=== PATIENT | female | born 1940 | race Caucasian/White ===

== ENCOUNTER 2019-04-01 12:00 | Outpatient (RCR) | payer MEDICARE, OTHER, SELFPAY ==
--- NOTE | 2019-02-09 14:29 | HP.PTEVAL ---
Patient's Visit Information JOE CEE is a 78 year old F referred to Physical Therapy by CAREY FraserC with a diagnosis of LBP , hip pain L.. Date of Evaluation: 02/09/19 Physical Therapist: Sang Law, DPT, OCS, CSCS - Visit Plan Frequency: 3x /Week Duration: 4-6 Weeks Plan: 3x/week for 3-6 for. 1. LB and L hip ROM emphasize hip extension. 2. core adn hip strength in gym and machines and progress to I. 3. Yoga flows and progress to I class emphasizing LB ROM adn LE stretching. - Subjective Findings: Bumped at traffic light a little bump. Didn't think it was a big deal but 30 minutes later got numbness in LB. That was a month ago. She got worse with LBP and now getting better. Has to stretch to get out of bed. X ray was OK. Has LBP and L hip pain. Sciatica. Doing piriformis stretch. Walking too far on a hike will make her worse after 45 minutes. Also doing extension for LB. Pain is 5/10. 0-10 pain with sitting. Sleeping is not bad, was hard at first. Sleeps with pillows under knees. Dress and basic aDLS are OK but cooking too meagan can be problematic. Reaching up can hurt. No regular exercises but used to wrok out at adn [place] l[place]. Knitting is OK. Avoided gardening b/c of pain a little bit, - Pain L LB and hip Pain Intensity (Out of 10): 0 Pain Intensity Range: 0, 5 - Objective Walks hunched over and looking at ground. Painful after a while. Sitting is rounded throughout spine, flat lordosis. PA pressure in lowe L/S is painful. L hip IR adn flexion adn extension caus epain, + L hip scour. reflexes 2/3 patella dave chilles. Sensation LE WNL to gross lgiht touch. Strength knees adn ankles 4/5 adn hips 3+ ext adn abduction 4- flexion. L/ S aROM ext max limited and mild pain LB L, SB min limited, flexion min limited, no pain. Balance is good withambilation and transfers. - Goals Goal 1:: Comfortable walking 45 minutes adn sleep without discomfort Goal Time Frame: 4-6 Weeks Goal 2:: I appropr HEP to minimize future problems in gym/classes at Goal Time Frame: 4-6 Weeks Goal 3:: Pt feel 90% back to normal with LB/hip pain and activitiy. Goal Time Frame: 4-6 Weeks Goal 4:: <2/10 on oswestry LB scale Goal Time Frame: 4-6 Weeks - Rehabilitation Potential Physical Therapy Diagnosis: L hip OA adn LB degeneration. Rehabilitation Potential: Fair - Anticipated Interventions Patient/Client Instruction: Educate patient on: Condition, Plan of Care For the Purpose of:: To decrease pain, To increase ROM, To improve muscle performance and motor function, To improve ability of physical actions for home/community/work/leisure Therapeutic Exercise to Include: Strength training, Flexibilty training, Passive ROM, Active ROM For the Purpose of:: To decrease pain, To increase ROM, To improve ability of physical actions for home/community/work/leisure Thank you for the opportunity to evaluate your patient. For Medicare and Medicare HMO plans, please review the plan of care and approve it. It will need to be FAXED BACK to us at [phone] for Medicare purposes. For Medicare only, by signing this I certify the plan of care. Please let me know if there are questions or concerns regarding this plan of care. Physician Signature: Date:
--- NOTE | 2019-03-02 09:08 | HP.PTREVAL_ITS ---
Ioana Matthews, [employer] DIRECTOR-C, It has been my pleasure to treat JOE CEE over the last 7 visits for LBP , hip pain L.. Please see the progress note below for an update on the physical therapy plan of care! Subjective: Hiked [place] without issues last Saturday but hip hurt at night. Hip is slowly improving but walked dog a couple miles yesterday. Had L leg pain not going to ankle anymore. Not a terrible pain to 2/10. Keeps her up at night at times. Needs pillow under knee at night. Doing stfetches at home. Will see doctor soon this month. Objective/Function: Mild L antalgia, Avoids L hip flexion descending steps. ROM L hip missing about 10 degrees flexion vs R. Rotation L 45 ext rotation, 10 IR with pain. Plan Plan: 4 pool visits to teach hip ROM L and stretching of L ITB, hip flexors and Hip strength so patient acan do at home in own pool. Will be doing gym exercises during this time I. Fair prognosis to same goals. Goals Goal 1:: Comfortable walking 45 minutes adn sleep without discomfort Goal Time Frame: 4-6 Weeks Goal Progress: Progressing Goal 2:: I appropr HEP to minimize future problems in gym/classes at Goal Time Frame: 4-6 Weeks Goal Progress: Progressing Goal 3:: Pt feel 90% back to normal with LB/hip pain and activitiy. Goal Time Frame: 4-6 Weeks Goal Progress: Progressing Goal 4:: <2/10 on oswestry LB scale Goal Time Frame: 4-6 Weeks Goal Progress: Progressing Anticipated Interventions Patient/Client Instruction: Educate patient on: Condition, Plan of Care For the Purpose of:: To decrease pain, To increase ROM, To improve muscle performance and motor function, To improve ability of physical actions for home/community/work/leisure Therapeutic Exercise to Include: Strength training, Flexibilty training, Passive ROM, Active ROM For the Purpose of:: To decrease pain, To increase ROM, To improve ability of physical actions for home/community/work/leisure Please do not hesitate to contact me at [phone] by phone or if you have questions or concerns regarding this new plan of care! Sincerely, Sang Law, DPT, OCS, CSCS
--- NOTE | 2019-03-17 13:01 | HP.PTREVAL ---
Ioana Matthews, FLIGHT READINESS TECHNICIAN-C, It has been my pleasure to treat JOE CEE over the last 11 visits for LBP , hip pain L.. Please see the progress note below for an update on the physical therapy plan of care! Subjective: Needsmore pool to show more exercises. Needs a couple more. Got three days relief after last two sessions. Flexibility stayed good and no pain over the weekend. No long hikes though. Good sleeping now without pillow at night. Does home stretches daily. Doing gym ex a couple times but avoiding glut ham machine. Objective/Function: L/S ext still mod limited and without pain today. Flexion is full and painfree. SB are good. Walking up much taller today(she just got out of pool). Feeling more positive overall. Plan Plan: 4 more pool visits to finish instruct in pool then patient to cotniue via her home pool. Will cotninue in gym 2-3x/week and home stretches. to doctor end March. No f/u with PT needed unless she worsens. Goals Goal 1:: Comfortable walking 45 minutes adn sleep without discomfort Goal Time Frame: 4-6 Weeks Goal Progress: Goal Met Goal 2:: I appropr HEP to minimize future problems in gym/classes at Goal Time Frame: 4-6 Weeks Goal Progress: [place], [place] pool Goal 3:: Pt feel 90% back to normal with LB/hip pain and activitiy. Goal Time Frame: 4-6 Weeks Goal Progress: Progressing Goal 4:: <2/10 on oswestry LB scale Goal Time Frame: 4-6 Weeks Goal Progress: Progressing Anticipated Interventions Patient/Client Instruction: Educate patient on: Condition, Plan of Care For the Purpose of:: To decrease pain, To increase ROM, To improve muscle performance and motor function, To improve ability of physical actions for home/community/work/leisure Therapeutic Exercise to Include: Strength training, Flexibilty training, Passive ROM, Active ROM For the Purpose of:: To decrease pain, To increase ROM, To improve ability of physical actions for home/community/work/leisure Please do not hesitate to contact me at [phone] by phone or if you have questions or concerns regarding this new plan of care! Sincerely, Sang Law, DPT, OCS, CSCS
--- NOTE | 2019-06-17 11:47 | HP.PT.NRP ---
HP - Discharge Summary (1) - Patient Information JOE CEE was seen in my office for initial evaluation on 02/09/19. The following Plan of Care was established for this patient: Initial Frequency: 3x /Week Initial Duration: 4-6 Weeks - Anticipated Interventions Patient/Client Instruction: Educate patient on: Condition, Plan of Care For the Purpose of:: To decrease pain, To increase ROM, To improve muscle performance and motor function, To improve ability of physical actions for home/community/work/leisure Therapeutic Exercise to Include: Strength training, Flexibilty training, Passive ROM, Active ROM For the Purpose of:: To decrease pain, To increase ROM, To improve ability of physical actions for home/community/work/leisure This patient was last seen in our office 04/01/19. Pertinent comments regarding their Physical therapy will appear below: Pt seen 15 visits for management of her pain, most recently in the pool and had progressed to being I with all of her exercises. This included pool ex [facility] is where she spent her last number of visits. Plan was to discharge her after the pool appointments which is appropriate. At this point I will be discontinuing this patient from physical therapy. I would be happy to see this patient again in the future if found appropriate by the physician. Thank you! Sang Law, DPT, OCS, CSCS
== END 2019-04-01 19:00 | disposition home or self-care (01) ==
LOC: PT 12:00
PROVIDERS: Family Provider Internal Medicine; PCP Internal Medicine; Referring Provider Nurse Practitioner; Visit Provider Nurse Practitioner
DX: M54.9 Dorsalgia, unspecified (principal); M25.552 Pain in left hip
CPT/HCPCS: 97012; 97110; 97113; 97140; 97162; 97530

== ENCOUNTER → 2021-01-27 11:09 | Outpatient (CLI) | payer MEDICARE, OTHER, SELFPAY ==
[2021-01-24 15:36] VITALS: BMI 22.6
--- NOTE | 2021-01-27 11:11 | ECHOD_ITS ---
Reason For Study: PRE-OP/ ABN EKG Procedure This was a 2D Doppler, Color Flow transthoracic echocardiogram. The exam was of adequate technical quality. Exam performed in department. Left Ventricle Normal LV size. Left ventricular systolic function is normal. The estimated ejection fraction is 65 %. Diastolic function is indeterminate. No regional wall motion abnormalities noted. Right Ventricle Normal RV size. Normal systolic function. Atria The left atrium is mildly enlarged. Normal right atrium. No doppler evidence for ASD. Mitral Valve There is no mitral annular calcification. Mild diffuse mitral valve thickening. Mild focal mitral valve calcification of the anterior leaflet. The mitral valve chordae are thickened and/or calcified. Mild (1+) mitral valve insufficiency. Tricuspid Valve Normal tricuspid valve. Mild eccentric tricuspid valve insufficiency. Right ventricular systolic pressure estimated to be 29 mmHg. Aortic Valve Trisinus/trileaflet aortic valve. Normal aortic valve. Pulmonic Valve The pulmonic valve is not well visualized. Mild (1+) pulmonic valve insufficiency. Great Vessels Normal sized aortic root. Pericardium/Pleural No pericardial effusion. Medication Previously negative bubble study. MMode/2D Measurements & Calculations LVIDd: 4.1 cm IVSd: 0.83 cm Ao root diam: 3.3 cm LVIDs: 2.3 cm LVPWd: 0.78 cm RVDd: 2.6 cm FS: 43.1 % LAV(MOD-bp): 38.1 ml LVAd ap4: 24.3 cm2 SV(MOD-sp4): 46.5 ml LAV(MOD-bp) Indexed: 26.2 ml/m2 LVLd ap4: 6.8 cm LAV(MOD-sp2): 43.2 ml EDV(MOD-sp4): 69.6 ml LAV(MOD-sp4): 29.7 ml EDV(sp4-el): 73.2 ml LVAs ap4: 12.0 cm2 LVLs ap4: 5.3 cm ESV(MOD-sp4): 23.1 ml ESV(sp4-el): 23.3 ml EF(MOD-sp4): 66.9 % EF(sp4-el): 68.2 % SV(sp4-el): 49.9 ml LA A4 area: 12.9 cm2 LA dimension(2D): 3.4 cm RA A4 area: 8.4 cm2 Time Measurements MV dec time: 0.22 sec Doppler Measurements & Calculations MV E max enrique: 87.5 cm/sec Lat Peak E' Enrique: 3.8 cm/sec Med Peak E' Enrique: 4.5 cm/sec MV A max enrique: 122.0 cm/sec E/E' lat: 23.0 E/E' med: 19.6 MV E/A: 0.72 MV V2 max: 123.6 cm/sec Ao V2 max: 113.4 cm/sec LV V1 max: 111.7 cm/sec MV max P.1 mmHg Ao max P.1 mmHg LV V1 max P.0 mmHg MV V2 mean: 73.5 cm/sec MV mean P.4 mmHg MV V2 VTI: 30.9 cm PA V2 max: 70.1 cm/sec PI end-d enrique: 110.0 cm/sec TR max enrique: 255.7 cm/sec TR max P.2 mmHg MV P1/2t-pr_phl: 66.9 msec ECHO/Echo Complete Interpretation Summary Left ventricular systolic function is normal. The estimated ejection fraction is 65 %. The left atrium is mildly enlarged. Mild diffuse mitral valve thickening. Mild focal mitral valve calcification of the anterior leaflet. The mitral valve chordae are thickened and/or calcified. Mild (1+) mitral valve insufficiency. Mild eccentric tricuspid valve insufficiency. Mild (1+) pulmonic valve insufficiency. Right ventricular systolic pressure estimated to be 29 mmHg. Diastolic function is indeterminate. Ordering Physician: Anibal Sanchez Referring Physician: BG CHAVARRIA Performed By: Symone Tapia, ITZEL, RVT
--- NOTE | 2021-01-27 17:39 | STRESSREP ---
Stress Test Report Date: 01-27-2021 Procedure: Pharmacologic stress nuclear imaging study Indications: Abnormal ECG; preoperative cardiovascular evaluation Consent: Per the patient Procedure: The patient underwent pharmacologic (Regadenoson 0.4mg ) evaluation with a peak heart rate of 99 beats per minute (70%predicted maximal heart rate) and a peak blood pressure of 120/64 mmHg. The baseline ECG demonstrated sinus rhythm; septal HI pattern of indeterminate age cannot be asked. The peak pharmacologic ECG demonstrated no obvious ECG changes. There were no cardiac dysrhythmias pretest, during pharmacologic infusion, or recovery. There was no complaint of chest discomfort during pharmacologic infusion or recovery. The examination was discontinued secondary to completion of protocol. Impression: 1. Pharmacologic (Regadenoson) evaluation 2. Peak pharmacologic ECG with no obvious ECG changes. 3. There were no cardiac dysrhythmias pretest, during pharmacologic infusion, or recovery. 4. Nuclear images pending Myocardial perfusion imaging study: Technique: The patient was injected with 12.0 millicuries of technetium 99m Cardiolite and subsequently rest SPECT Cardiolite nuclear imaging was obtained in the horizontal long, vertical long, and short axis views. The patient underwent pharmacologic (Regadenoson) evaluation with a peak heart rate of 99 beats per minute (70% percent predicted maximal heart rate) and a peak blood pressure of 120/64 mmHg. The patient was injected with 36.0 millicuries of technetium 99m Cardiolite and subsequently stress SPECT Cardiolite nuclear imaging was obtained in the horizontal long, vertical long, and short axis views. A gated Cardiolite study at peak stress was obtained. Interpretation: Rest and stress SPECT Cardiolite nuclear imaging status post realignment and normalization demonstrate relative uniform tracer uptake and myocardial perfusion appearing within normal limits. There is end systolic thickening and brightening. The gated Cardiolite study demonstrates myocardial thickening and inward wall motion. The reported LVEF is 83%. Impression: 1. Rest and stress SPECT Cardiolite nuclear imaging demonstrate relative uniform tracer uptake and myocardial perfusion appearing within normal limits. 2. The gated Cardiolite study reports an LVEF of 83%. This note was generated with [employer] software. It may contain incorrect words, spelling, and punctuation that were not noted in checking the note before signing.
== END ==
PROVIDERS: PCP Internal Medicine; Referring Provider Internal Medicine Cardiovascular Disease; Visit Provider Internal Medicine Cardiovascular Disease
DX: Z01.810 Encounter for preprocedural cardiovascular examination (principal); R94.11 Abnormal results of function studies of eye; E11.9 Type 2 diabetes mellitus without complications; G35 Multiple sclerosis
CPT/HCPCS: 78452; 93017; 93306; A9500; A4216; J2785

== ENCOUNTER 2021-02-03 16:36 | Inpatient (IN) | payer MEDICARE, OTHER, SELFPAY ==
[2021-01-24 15:36] VITALS: BMI 22.6
[2021-02-03 17:09] VITALS: BP 152/82; PULSE 94; RESP 16; TEMP 36.7; O2SAT 94; BMI 23.0
--- NOTE | 2021-02-03 20:24 | HP.PCM_ITS ---
HPI - General General Date of Admission: 02/03/21 HPI Narrative 01/27/2021 Echo LVSF normal. EF 65%. Right ventricular systolic pressure 29mm HG. 01/27/2021 Pharmacologic stress test negative. 02/01/2021 JOE CEE, is a 80 Female who presents to [facility] for left total hip arthroplasty. DVT prophylaxis. Zofran ODT for nausea. 02/02/2021 IV fluids. Add muscle relaxant. 02/03/2021 Admit to TCU with debility, here for rehabilitation, strengthening, prior to discharge home with . [facility] Medical History (Updated 02/03/21 @ 20:[address] Brandon Yeung MD) Abnormal electro-oculogram DJD (degenerative joint disease) of cervical spine Expressive aphasia GERD (gastroesophageal reflux disease) Multiple sclerosis Preop cardiovascular exam Type 2 diabetes mellitus Home Medications cholecalciferol (vitamin D3) 5,000 unit PO DAILY 06/24/15 [History Last Taken 06/24/15] meloxicam 7.5 tab PO BID 06/24/15 [History Last Taken 06/24/15] risedronate [Atelvia] 35 mg PO QWEEK 06/24/15 [History Last Taken Unknown] acetaminophen 650 mg tablet,extended release 650 mg PO Q8H PRN 01/24/21 [History Last Taken Unknown] conjugated estrogens 0.625 mg/gram vaginal cream 0.3125 mg VAGINAL DAILY g 01/24/21 [History Last Taken Unknown] cyanocobalamin (vitamin B-12) 1,000 mcg/mL injection solution 100 mcg IM QMONTH 01/24/21 [History Last Taken Unknown] lactase 9,000 unit tablet 9,000 unit PO ONCE PRN 01/24/21 [History Last Taken Unknown] metformin 500 mg tablet 500 mg PO DAILY 01/24/21 [History Last Taken Unknown] acetaminophen 500 mg PO Q8 PRN 02/03/21 [History Last Taken Unknown] calcium carbonate [Tums] 200 mg PO PRN PRN 02/03/21 [History Last Taken Unknown] enoxaparin [Lovenox] 40 mg SUBCUT DAILY 02/03/21 [History Last Taken Unknown] Allergy/AdvReac Type Severity Reaction Status Date / Time Penicillins Allergy Severe Rash Verified 01/24/21 11:41 amoxicillin Allergy Rash Verified 10/04/17 23:57 clindamycin AdvReac Severe Diarrhea Verified 01/24/21 15:42 prochlorperazine AdvReac Other Verified 10/04/17 23:57 [From Compazine] Family History (Updated 02/03/21 @ 20:[address] Brandon Yeung MD) Father Colon cancer Mother Thyroid disorder Osteoporosis Surgical History History of bunionectomy History of left inguinal hernia repair History of tonsillectomy History of tubal ligation Social History (Updated 02/03/21 @ 20:[address] Brandon Yeung MD) household members: spouse Smoking Status: Former smoker alcohol intake: current details: Glass of wine daily. substance use type: does not use caffeine: Yes ROS Constitutional Constitutional: Denies chills, fever(s) or weight gain ENT HEENT: Denies headache(s), nasal congestion or nasal discharge Cardiovascular Cardiovascular: Denies chest pain or palpitations Respiratory/Chest Respiratory/Chest: Denies cough, excessive phlegm production or shortness of breath with exertion Gastrointestinal Gastrointestinal: Denies abdominal pain, nausea or vomiting Genitourinary Genitourinary: Denies dysuria Musculoskeletal Musculoskeletal: Denies joint pain or joint swelling Integumentary Integumentary: Denies rash or wounds Neurologic Neurologic: Denies focal weakness, numbness or tingling Psychiatric Psychiatric: Reports auditory hallucinations; Denies anxiety, depression, homicidal ideation or suicidal ideation Vital Signs Vital Signs Vital Signs: 02/03/21 17:09 Temperature 98.0 F Temperature Source Temporal Pulse Rate 94 Respiratory Rate 16 Blood Pressure 152/82 H Blood Pressure Mean 105 Blood Pressure Source Monitor Blood Pressure Position Sitting Blood Pressure Location Right Arm Pulse Ox 94 Oxygen Delivery Method Room Air Physical Exam Const alert and oriented x3 General Appearance: cooperative HEENT normocephalic Eyes PERRL and EOMs intact bilaterally Neck supple, no JVD and no carotid bruits Resp normal respiratory effort, normal air movement and clear to auscultation bilaterally Cardio regular rate and regular rhythm GI normal to inspection, nondistended, normoactive bowel sounds, non-tender and non-distended Extremity normal capillary refill General Extremity: Negative for edema Skin no rashes or lesions noted General Skin Exam: no breakdown Psych affect normal Appearance: appropriate Assessment & Plan Assessment/Plan (1) Debility: (2) Osteoarthritis of left hip: (3) Vitamin B12 deficiency: (4) Multiple sclerosis: (5) Diabetes mellitus: (6) Gastroesophageal reflux disease: (7) Osteoporosis: PLAN: 80 year old female with below past medical history hospitalized for left total hip replacement 02/01/2021, admitted to TCU with debility, here for rehabilitation, strengthening, prior to discharge home with . * Debility - PT/OT. * Pain - Tylenol 1000MG Q6H PRN pain (1-5), Oxycodone 5MG Q4H PRN pain (6-10). * Bowel - Miralax 17GM daily, Senna/colace 2 tablets BID, Dulcolax 10MG daily PRN, Magnesium Citrate 300ML PO x 1 bottle. * Adult immunization - Administer Prevnar 13, Pneumovax 23, Fluzone, COVID19 vaccine as appropriate. * DVT prophylaxis - Lovenox 40MG SC daily x 14 days. * Indigestion - Calcium 500MG daily PRN. * Vitamin D deficiency - D3 125MCG daily. * Vitamin B12 deficiency - B12 1000MCG IM Qmonth. * Atrophic vaginitis - Estrogen 0.5GM PV daily. * Osteoarthritis - Meloxicam 7.5MG BID. * Diabetes Mellitus II - Metformin 500MG daily, monitor blood sugar. * Osteoporosis - Risedronate 35MG per week (or formulary equivalent)
[2021-02-03] MEDS: Meloxicam 7.5 MG Tablet PO (21:15)
[2021-02-04 06:36] LABS: Bedside Glucose 120 mg/dL (70-110)
[2021-02-04 06:43] VITALS: BP 134/59; PULSE 79; RESP 16; TEMP 37.2; O2SAT 92
[2021-02-04] MEDS: Magnesium Citrate 300 ML PO (06:47)
[2021-02-04] MEDS: Enoxaparin 40 MG/0.4 ML Syringe SC (06:48)
[2021-02-04] MEDS: Polyethylene Glycol 3350 17 GM PACKET PO (06:50)
[2021-02-04] MEDS: Senna/Docusate Sodium 1 Tablet 2 TABLET PO (06:53)
[2021-02-04] MEDS: Cholecalciferol (VIT D3) 25 MCG TABLET (1,000 UNITS) 125 MCG PO (06:54)
[2021-02-04] MEDS: Meloxicam 7.5 MG Tablet PO ×2 (06:54→16:56)
[2021-02-04 07:44] LABS: Absolute Lymphocyte Count 1.47 X10^3/uL (0.83-4.51); Absolute Neutrophil Count 6.2 X10^3/uL (2.0-7.7); Basophil# 0.02 X10^3/uL; Basophil% 0.2 % (0-1); Eosinophils% 2.3 % (0-5); Hematocrit 28.1 % (37-47); Hemoglobin 9.3 g/dL (12.0-15.0); Lymphocyte # 1.47 X10^3/ul (0.83-4.51); Lymphocyte % 16.6 % (19-41); Mean Corp Hgb Conc 33.1 g/dL (32-36); Mean Corpuscular Volume 87.5 fL (81-99); Mean Platelet Vol. 9.3 fl (6.2-12.0); Monocyte% 10.2 % (0-10); NRBC Flagged by Analyzer 0 % (0-5); Neutrophil # 6.24 X10^3/uL (2.7-7.7); Neutrophil % 70.4 % (47-70); Platelet Count 231 K/mm3 (150-450); RBC Distribution Width CV 13.1 % (11.6-14.6); RBC Distribution Width SD 41.9 fl (35.1-43.9); Red Blood Count 3.21 M/mm3 (4.2-5.4); White Blood Count 8.9 K/mm3 (4.4-11.0)
[2021-02-04 08:00] LABS: Anion Gap 2 (5-15); BUN 16 mg/dL (7-18); BUN/Creat Ratio 24.5 RATIO (10-20); Calcium,Total 8.4 mg/dL (8.5-10.1); Chloride 107 mmol/L (98-107); Creatinine, Serum 0.65 mg/dL (0.55-1.02); EST Glomerular Filtration Rate 93 mL/min (>60); Est Glom Filt Rate - Afr Amer 112 mL/min (>60); Estimated Creatinine Clearance 37.89 ml/min; Glucose 122 mg/dL (74-106); Potassium 3.6 mmol/L (3.5-5.1); Sodium Level 140 mmol/L (136-145)
[2021-02-04] MEDS: metFORMIN HCl 500 MG Tablet PO (09:11)
[2021-02-04] MEDS: Tuberculin,Purif.prot.deriv. 50 TU/ML Vial 5 ML ID (09:43)
--- NOTE | 2021-02-04 10:05 | NURSING ---
Nursing staff notified and aware that patient's family needs to bring in patient's Premarin cream in from home due to unavailable from pharmacy. Cream is on backorder and no time frame when it will be available.
[2021-02-04 14:01] VITALS: BP 121/61; PULSE 85; RESP 16; TEMP 36.7
[2021-02-04] MEDS: Acetaminophen 500 MG Tablet 1000 MG PO (22:22)
--- NOTE | 2021-02-05 00:40 | NURSING ---
Pt calls reporting spasms to lt hip and thigh. Has taken Flexeril in the past. Offered Oxycodone and pt declines thinking she will become sick to her stomach. Transfers out of bed w/ minimal assist per this nurse to ambulate to the bathroom. Symptoms subside with movement. In no acute distress.
[2021-02-05 05:15] LABS: Absolute Lymphocyte Count 1.83 X10^3/uL (0.83-4.51); Absolute Neutrophil Count 7.2 X10^3/uL (2.0-7.7); Basophil# 0.02 X10^3/uL; Basophil% 0.2 % (0-1); Eosinophil# 0.24 X10^3/uL; Eosinophils% 2.4 % (0-5); Hematocrit 29.9 % (37-47); Hemoglobin 9.6 g/dL (12.0-15.0); Lymphocyte # 1.83 X10^3/ul (0.83-4.51); Mean Corp Hgb Conc 32.1 g/dL (32-36); Mean Corpuscular Volume 87.2 fL (81-99); Mean Platelet Vol. 8.8 fl (6.2-12.0); Monocyte# 0.85 X10^3/uL; Monocyte% 8.4 % (0-10); NRBC Flagged by Analyzer 0 % (0-5); Neutrophil # 7.17 X10^3/uL (2.7-7.7); Neutrophil % 70.7 % (47-70); Platelet Count 260 K/mm3 (150-450); RBC Distribution Width CV 13.2 % (11.6-14.6); RBC Distribution Width SD 41.7 fl (35.1-43.9); Red Blood Count 3.43 M/mm3 (4.2-5.4); White Blood Count 10.1 K/mm3 (4.4-11.0)
[2021-02-05 05:29] LABS: Anion Gap 4 (5-15); BUN 17 mg/dL (7-18); BUN/Creat Ratio 22.9 RATIO (10-20); Calcium,Total 8.5 mg/dL (8.5-10.1); Chloride 104 mmol/L (98-107); Creatinine, Serum 0.74 mg/dL (0.55-1.02); EST Glomerular Filtration Rate 80 mL/min (>60); Est Glom Filt Rate - Afr Amer 97 mL/min (>60); Estimated Creatinine Clearance 37.89 ml/min; Glucose 109 mg/dL (74-106); Potassium 3.8 mmol/L (3.5-5.1); Sodium Level 141 mmol/L (136-145)
[2021-02-05 06:28] VITALS: BP 124/59; PULSE 74; RESP 16; TEMP 36.6; O2SAT 97
[2021-02-05 06:30] LABS: Bedside Glucose 103 mg/dL (70-110)
[2021-02-05] MEDS: Cholecalciferol (VIT D3) 25 MCG TABLET (1,000 UNITS) 125 MCG PO (06:30)
[2021-02-05] MEDS: Meloxicam 7.5 MG Tablet PO ×2 (06:30→17:10)
[2021-02-05] MEDS: Senna/Docusate Sodium 1 Tablet 2 TABLET PO ×2 (06:31→17:10)
[2021-02-05] MEDS: Polyethylene Glycol 3350 17 GM PACKET PO (06:31)
[2021-02-05] MEDS: Enoxaparin 40 MG/0.4 ML Syringe SC (06:32)
[2021-02-05] MEDS: metFORMIN HCl 500 MG Tablet PO (08:41)
[2021-02-05] MEDS: Iron Polysaccharide Complex 150 MG CAPSULE PO (08:41)
[2021-02-05] MEDS: Acetaminophen 500 MG Tablet 1000 MG PO ×2 (10:28→23:04)
[2021-02-05] MEDS: Calcium Carbonate 500 MG Tablet PO (11:43)
[2021-02-05 14:41] VITALS: BP 131/65; PULSE 84; RESP 16; TEMP 36.9; O2SAT 94
[2021-02-05] MEDS: cycloBENZAPRine HCl 10 MG Tablet PO (23:04)
[2021-02-06] MEDS: Enoxaparin 40 MG/0.4 ML Syringe SC (05:19)
[2021-02-06] MEDS: Polyethylene Glycol 3350 17 GM PACKET PO (05:20)
[2021-02-06] MEDS: Senna/Docusate Sodium 1 Tablet 2 TABLET PO ×2 (05:20→16:36)
[2021-02-06] MEDS: Meloxicam 7.5 MG Tablet PO ×2 (05:20→16:36)
[2021-02-06] MEDS: Cholecalciferol (VIT D3) 25 MCG TABLET (1,000 UNITS) 125 MCG PO (05:21)
[2021-02-06 06:03] LABS: Absolute Lymphocyte Count 1.45 X10^3/uL (0.83-4.51); Absolute Neutrophil Count 5.1 X10^3/uL (2.0-7.7); Basophil# 0.02 X10^3/uL; Basophil% 0.3 % (0-1); Eosinophil# 0.25 X10^3/uL; Eosinophils% 3.3 % (0-5); Hematocrit 27.7 % (37-47); Hemoglobin 8.8 g/dL (12.0-15.0); Lymphocyte # 1.45 X10^3/ul (0.83-4.51); Lymphocyte % 19.1 % (19-41); Mean Corp Hgb Conc 31.8 g/dL (32-36); Mean Corpuscular Hgb 28.5 pg (27.0-32.0); Mean Corpuscular Volume 89.6 fL (81-99); Mean Platelet Vol. 9.1 fl (6.2-12.0); Monocyte# 0.79 X10^3/uL; Monocyte% 10.4 % (0-10); NRBC Flagged by Analyzer 0 % (0-5); Neutrophil # 5.05 X10^3/uL (2.7-7.7); Neutrophil % 66.4 % (47-70); Platelet Count 280 K/mm3 (150-450); RBC Distribution Width SD 42.1 fl (35.1-43.9); Red Blood Count 3.09 M/mm3 (4.2-5.4); White Blood Count 7.6 K/mm3 (4.4-11.0)
[2021-02-06 06:05] VITALS: BP 134/62; PULSE 77; RESP 12; TEMP 36.7; O2SAT 96
[2021-02-06 06:31] LABS: Bedside Glucose 116 mg/dL (70-110)
[2021-02-06 06:44] LABS: Anion Gap 4 (5-15); BUN 19 mg/dL (7-18); BUN/Creat Ratio 26.9 RATIO (10-20); Calcium,Total 8.4 mg/dL (8.5-10.1); Chloride 104 mmol/L (98-107); Creatinine, Serum 0.71 mg/dL (0.55-1.02); EST Glomerular Filtration Rate 85 mL/min (>60); Est Glom Filt Rate - Afr Amer 103 mL/min (>60); Estimated Creatinine Clearance 37.89 ml/min; Glucose 96 mg/dL (74-106); Potassium 3.7 mmol/L (3.5-5.1); Sodium Level 140 mmol/L (136-145)
[2021-02-06] MEDS: cycloBENZAPRine HCl 10 MG Tablet PO ×2 (08:24→12:49)
[2021-02-06] MEDS: Acetaminophen 500 MG Tablet 1000 MG PO ×2 (08:24→14:19)
[2021-02-06] MEDS: metFORMIN HCl 500 MG Tablet PO (08:25)
[2021-02-06] MEDS: Iron Polysaccharide Complex 150 MG CAPSULE PO (08:25)
[2021-02-06 10:00] VITALS: RESP 18
[2021-02-06 14:02] VITALS: BP 137/64; PULSE 88; RESP 20; TEMP 36.7; O2SAT 95
--- NOTE | 2021-02-06 15:56 | PCM.PN.RX ---
Progress Note - Pharmacy Subjective: TCU Admission Objective: Allergies Penicillins Allergy (Severe, Verified 01/24/21 11:41) Rash amoxicillin Allergy (Verified 10/04/17 23:57) Rash clindamycin Adverse Reaction (Severe, Verified 01/24/21 15:42) Diarrhea prochlorperazine [From Compazine] Adverse Reaction (Verified 10/04/17 23:57) Other Current Medications Generic Name Dose Route Start Last Admin Trade Name Freq PRN Reason Stop Dose Admin Acetaminophen 1,000 mg 02/03/21 20:45 02/06/21 14:19 Acetaminophen 500 Mg Tablet PO 1,000 mg Q6H PRN PRN Administration Pain Score 1-5 Bisacodyl 10 mg 02/03/21 20:44 Bisacodyl 5 Mg Tablet PO X1 PRN Constipation Calcium Carbonate 500 mg 02/03/21 17:42 02/05/21 11:43 Calcium Carbonate 500 Mg Tablet PO 500 mg DAILY PRN PRN Administration GERD Cholecalciferol 125 mcg 02/04/21 06:00 02/06/21 05:21 Cholecalciferol (Vit D3) 25 Mcg Tablet (1,000 Units) PO 125 mcg DAILY ABIGAIL Administration Cyanocobalamin 1,000 mcg 02/28/21 08:00 Cyanocobalamin (B12) 1,000 Mcg/Ml Vial IM QMONTH [facility] Cyclobenzaprine HCl 10 mg 02/05/21 14:11 02/06/21 12:49 Cyclobenzaprine Hcl 10 Mg Tablet PO 10 mg TID PRN PRN Administration SPASMS Estrogens Conjugated 0.5 dose 02/04/21 13:34 Estrogens,Conj. 1 Tube VAGINAL DAILY PRN estrogen Meloxicam 7.5 mg 02/03/21 20:45 02/06/21 05:20 Meloxicam 7.5 Mg Tablet PO 7.5 mg BID ABIGAIL Administration Metformin HCl 500 mg 02/04/21 08:00 02/06/21 08:25 Metformin Hcl 500 Mg Tablet PO 500 mg DAILYCM ABIGAIL Administration Polyethylene Glycol 17 gm 02/04/21 06:00 02/06/21 05:20 Polyethylene Glycol 3350 17 Gm Packet PO 17 gm DAILY ABIGAIL Administration Polysaccharide Iron Complex 150 mg 02/05/21 08:00 02/06/21 08:25 Iron Polysaccharide Complex 150 Mg Capsule PO 150 mg DAILYCM ABIGAIL Administration Risedronate 35 mg 02/07/21 06:00 Risedronate 35 Mg Tablet PO Q7D@0600 [facility] Senna/Docusate Sodium 2 tablet 02/04/21 06:00 02/06/21 05:20 Senna/Docusate Sodium 1 Tablet PO 2 tablet BID ABIGAIL Administration Tuberculin PPD 5 tu 02/11/21 10:00 Tuberculin,Purif.Prot.Deriv. 50 Tu/Ml Vial ID 02/11/21 10:01 X1 ONE Problem List (Last Updated 01/24/21 @ 16:[address] Anibal Sanchez MD) Osteoporosis (Acute) Gastroesophageal reflux disease (Acute) Diabetes mellitus (Acute) Multiple sclerosis (Acute) Vitamin B12 deficiency (Acute) Osteoarthritis of left hip (Acute) Debility (Acute) Vital Signs Temp Pulse Resp BP Pulse Ox 98.1 F 88 20 H 137/64 H 95 02/06/21 14:02 02/06/21 14:02 02/06/21 14:02 02/06/21 14:02 02/06/21 14:02 Oxygen Flow Rate (L/min) 96 Oxygen Delivery Method Room Air Weight: 52.617 kg Body Mass Index (BMI) 23.0 Finger Stick Blood Glucose 141 Sodium 140 mmol/L (136-145) 02/06/21 05:30 Potassium 3.7 mmol/L (3.5-5.1) 02/06/21 05:30 Chloride 104 mmol/L (98-107) 02/06/21 05:30 Carbon Dioxide 32.0 mmol/L (21.0-32.0) 02/06/21 05:30 Anion Gap 4 (5-15) L 02/06/21 05:30 BUN 19 mg/dL (7-18) H 02/06/21 05:30 Creatinine 0.71 mg/dL (0.55-1.02) 02/06/21 05:30 Est GFR (MDRD) Af Amer 103 mL/min (>60) 02/06/21 05:30 Est GFR (MDRD) Non-Af 85 mL/min (>60) 02/06/21 05:30 BUN/Creatinine Ratio 26.9 RATIO (10-20) H 02/06/21 05:30 Glucose 96 mg/dL (74-106) 02/06/21 05:30 Assessment/Plan: *1. Pain: acetaminophen 1000mg PO Q6H PRN pain 1-5/10. Please consider increasing the pain scale coverage for acetaminophen since oxycodone is no longer on profile due to patient intolerance. Thanks. Please continue to monitor for increased pain and PRN usage. 2. Atrophic vaginitis: Premerin 0.3125mg (0.5gm) vaginally once daily PRN. Please continue to monitor for S/S of vaginitis and PRN usage. 3. Osteoarthritis: meloxicam 7.5mg PO BID. Please continue to monitor S/S osteoarthritis and renal function. *4. Diabetes mellitus II: metformin 500mg PO dailyCM. Please consider ordering a hemoglobin A1c. Patient does not have one in chart. Please continue to monitor blood glucose (last 116), renal function, and GI symptoms. 5. Osteoporosis: risedronate 35mg PO Q7days. Please continue to monitor S/S osteoporosis. Take on an empty stomach. 6. Iron deficiency: Ferrex 150mg PO dailyCM. Please continue to monitor hemoglobin (last 8.8 g/dL) and for dark stools. 7. Indigestion: calcium carbonate 500mg PO daily PRN GERD. Please continue to monitor for S/S of GERD and calcium levels (last 8.5mg/dL). *8. Vitamin D deficiency/Vitamin B12 deficiency: cholecalciferol 125mcg PO daily and cyanocobalamin 1000mcg IM Qmonth. Please continue to ordering vitamin D and vitamin B12 levels. Last levels from 03/2013. Thanks. 9. Muscle spasms: cyclobenzaprine 10mg PO TID PRN spasms. Please continue to monitor for anticholinergic side effects (medication is on BEERs criteria) and PRN usage. Psychotropic Medications: None Unnecessary Medications: None *Bowel Regimen: Miralax 17gm PO daily, senna/docusate 2T PO BID, and bisacodyl 10mg PO x1 PRN constipation. Please change bisacodyl to daily PRN constipation instead of x1 PRN if patient needs more than 1 dose. Thanks. Please continue to monitor for constipation and PRN usage. Date of Note:: 02/06/21
[2021-02-06 22:01] LABS: Bedside Glucose 115 mg/dL (70-110)
[2021-02-07] MEDS: Acetaminophen 500 MG Tablet 1000 MG PO ×4 (01:32→22:59)
[2021-02-07] MEDS: cycloBENZAPRine HCl 10 MG Tablet PO ×3 (01:32→22:59)
[2021-02-07 05:00] VITALS: BP 148/63; PULSE 84; RESP 14; TEMP 36.5; O2SAT 92
[2021-02-07 06:00] LABS: Absolute Lymphocyte Count 1.23 X10^3/uL (0.83-4.51); Absolute Neutrophil Count 4.4 X10^3/uL (2.0-7.7); Basophil# 0.03 X10^3/uL; Basophil% 0.4 % (0-1); Eosinophil# 0.31 X10^3/uL; Eosinophils% 4.6 % (0-5); Hematocrit 28.4 % (37-47); Hemoglobin 9.1 g/dL (12.0-15.0); Lymphocyte # 1.23 X10^3/ul (0.83-4.51); Lymphocyte % 18.1 % (19-41); Mean Corpuscular Hgb 28.1 pg (27.0-32.0); Mean Corpuscular Volume 87.7 fL (81-99); Mean Platelet Vol. 8.9 fl (6.2-12.0); Monocyte# 0.82 X10^3/uL; Monocyte% 12.1 % (0-10); NRBC Flagged by Analyzer 0 % (0-5); Neutrophil # 4.38 X10^3/uL (2.7-7.7); Neutrophil % 64.4 % (47-70); Platelet Count 313 K/mm3 (150-450); RBC Distribution Width CV 13.2 % (11.6-14.6); RBC Distribution Width SD 42.5 fl (35.1-43.9); Red Blood Count 3.24 M/mm3 (4.2-5.4); White Blood Count 6.8 K/mm3 (4.4-11.0)
[2021-02-07 06:24] LABS: Anion Gap 4 (5-15); BUN 19 mg/dL (7-18); BUN/Creat Ratio 28.1 RATIO (10-20); Calcium,Total 8.5 mg/dL (8.5-10.1); Chloride 105 mmol/L (98-107); Creatinine, Serum 0.68 mg/dL (0.55-1.02); EST Glomerular Filtration Rate 89 mL/min (>60); Est Glom Filt Rate - Afr Amer 108 mL/min (>60); Estimated Creatinine Clearance 37.89 ml/min; Glucose 98 mg/dL (74-106); Potassium 3.7 mmol/L (3.5-5.1); Sodium Level 140 mmol/L (136-145)
[2021-02-07 06:26] LABS: Bedside Glucose 108 mg/dL (70-110)
[2021-02-07] MEDS: Meloxicam 7.5 MG Tablet PO ×2 (06:49→16:36)
[2021-02-07] MEDS: Polyethylene Glycol 3350 17 GM PACKET PO (06:49)
[2021-02-07] MEDS: Senna/Docusate Sodium 1 Tablet 2 TABLET PO ×2 (06:49→16:36)
[2021-02-07] MEDS: Cholecalciferol (VIT D3) 25 MCG TABLET (1,000 UNITS) 125 MCG PO (06:50)
[2021-02-07] MEDS: Iron Polysaccharide Complex 150 MG CAPSULE PO (08:25)
[2021-02-07] MEDS: metFORMIN HCl 500 MG Tablet PO (08:26)
[2021-02-07 16:00] VITALS: BP 147/61; PULSE 82; RESP 18; TEMP 36.4; O2SAT 94
--- NOTE | 2021-02-07 16:38 | NURSING ---
asked r' if her can bring in premarin cream. she stated she only needs it occasionally, so if she needs it while on her stay at [facility] she will let her know to bring it in.
[2021-02-07] MEDS: Bisacodyl 5 MG Tablet 10 MG PO (23:04)
[2021-02-08 05:00] VITALS: BP 146/71; PULSE 71; RESP 14; TEMP 36.6; O2SAT 95
[2021-02-08] MEDS: Senna/Docusate Sodium 1 Tablet 2 TABLET PO ×2 (05:43→18:34)
[2021-02-08] MEDS: Meloxicam 7.5 MG Tablet PO ×2 (05:43→18:34)
[2021-02-08] MEDS: Polyethylene Glycol 3350 17 GM PACKET PO (05:43)
[2021-02-08] MEDS: Cholecalciferol (VIT D3) 25 MCG TABLET (1,000 UNITS) 125 MCG PO (05:44)
[2021-02-08 05:49] LABS: Absolute Lymphocyte Count 1.58 X10^3/uL (0.83-4.51); Absolute Neutrophil Count 4.9 X10^3/uL (2.0-7.7); Basophil# 0.02 X10^3/uL; Basophil% 0.3 % (0-1); Eosinophil# 0.34 X10^3/uL; Eosinophils% 4.3 % (0-5); Hematocrit 30.1 % (37-47); Hemoglobin 9.7 g/dL (12.0-15.0); Lymphocyte # 1.58 X10^3/ul (0.83-4.51); Lymphocyte % 20.1 % (19-41); Mean Corp Hgb Conc 32.2 g/dL (32-36); Mean Corpuscular Hgb 28.1 pg (27.0-32.0); Mean Corpuscular Volume 87.2 fL (81-99); Mean Platelet Vol. 8.5 fl (6.2-12.0); Monocyte# 0.97 X10^3/uL; Monocyte% 12.4 % (0-10); NRBC Flagged by Analyzer 0 % (0-5); Neutrophil # 4.87 X10^3/uL (2.7-7.7); Platelet Count 335 K/mm3 (150-450); RBC Distribution Width CV 13.2 % (11.6-14.6); RBC Distribution Width SD 41.8 fl (35.1-43.9); Red Blood Count 3.45 M/mm3 (4.2-5.4); White Blood Count 7.9 K/mm3 (4.4-11.0)
[2021-02-08 06:06] LABS: Anion Gap 7 (5-15); BUN 22 mg/dL (7-18); BUN/Creat Ratio 30.1 RATIO (10-20); Chloride 103 mmol/L (98-107); Creatinine, Serum 0.73 mg/dL (0.55-1.02); EST Glomerular Filtration Rate 82 mL/min (>60); Est Glom Filt Rate - Afr Amer 99 mL/min (>60); Estimated Creatinine Clearance 38.71 ml/min; Glucose 96 mg/dL (74-106); Potassium 3.8 mmol/L (3.5-5.1); Sodium Level 139 mmol/L (136-145)
[2021-02-08 06:46] LABS: Bedside Glucose 114 mg/dL (70-110)
[2021-02-08] MEDS: metFORMIN HCl 500 MG Tablet PO (08:41)
[2021-02-08] MEDS: Iron Polysaccharide Complex 150 MG CAPSULE PO (08:42)
[2021-02-08 12:13] VITALS: PULSE 90; RESP 18
[2021-02-08 15:58] VITALS: BP 140/67; PULSE 91; RESP 16; TEMP 36.4; O2SAT 95
[2021-02-08] MEDS: Acetaminophen 500 MG Tablet 1000 MG PO (16:03)
[2021-02-08] MEDS: cycloBENZAPRine HCl 10 MG Tablet PO (16:04)
[2021-02-09] MEDS: Acetaminophen 500 MG Tablet 1000 MG PO ×2 (02:49→12:30)
[2021-02-09] MEDS: Cholecalciferol (VIT D3) 25 MCG TABLET (1,000 UNITS) 125 MCG PO (04:56)
[2021-02-09] MEDS: Senna/Docusate Sodium 1 Tablet 2 TABLET PO ×2 (04:56→17:03)
[2021-02-09] MEDS: Meloxicam 7.5 MG Tablet PO ×2 (04:57→17:03)
[2021-02-09] MEDS: cycloBENZAPRine HCl 10 MG Tablet PO ×3 (04:57→22:36)
[2021-02-09 05:00] VITALS: BP 148/86; PULSE 73; RESP 12; TEMP 35.7; O2SAT 98
[2021-02-09 06:41] LABS: Bedside Glucose 96 mg/dL (70-110)
[2021-02-09] MEDS: Iron Polysaccharide Complex 150 MG CAPSULE PO (09:09)
[2021-02-09] MEDS: metFORMIN HCl 500 MG Tablet PO (09:09)
--- NOTE | 2021-02-09 12:48 | NURSING ---
2+ pedal edema to Lt lower leg. Zeke gallego placed per resident request.
[2021-02-09 14:24] VITALS: BP 123/55; PULSE 87; RESP 15; TEMP 36.4; O2SAT 96
--- NOTE | 2021-02-09 15:09 | CASEMGMT ---
Social Work IDT met with patient and for care plan meeting. Discussed patient's progress in therapy and nursing. Pt progressing well and adhering to hip precautions well. Pt was independent prior and would like to return to PLOF prior to DC. can assist as needed while pt continues to adhere to precautions. Explained Medicare benefit and encouraged to contact secondary insurance to ensure copay coverage. SW to continue to follow for DC planning. KARLIE SawyerW
[2021-02-09] MEDS: traMADol 50 MG Tablet PO (22:34)
[2021-02-10] MEDS: Acetaminophen 500 MG Tablet 1000 MG PO ×2 (03:39→21:01)
[2021-02-10] MEDS: Calcium Carbonate 500 MG Tablet PO ×2 (03:39→14:51)
[2021-02-10 05:00] VITALS: BP 102/60; PULSE 74; RESP 16; TEMP 36.6
[2021-02-10] MEDS: Meloxicam 7.5 MG Tablet PO ×2 (05:20→17:06)
[2021-02-10] MEDS: Cholecalciferol (VIT D3) 25 MCG TABLET (1,000 UNITS) 125 MCG PO (05:20)
[2021-02-10] MEDS: Senna/Docusate Sodium 1 Tablet 2 TABLET PO (05:20)
[2021-02-10] MEDS: metFORMIN HCl 500 MG Tablet PO (08:03)
[2021-02-10] MEDS: Iron Polysaccharide Complex 150 MG CAPSULE PO (08:03)
[2021-02-10] MEDS: cycloBENZAPRine HCl 10 MG Tablet PO ×3 (08:05→23:08)
[2021-02-10] MEDS: traMADol 50 MG Tablet PO (08:05)
[2021-02-10 15:38] VITALS: BP 106/41; PULSE 73; RESP 16; TEMP 36.3; O2SAT 96
--- NOTE | 2021-02-10 23:15 | NURSING ---
Pt informs this nurse she thought her hip popped. Lying in bed supine w/ HOB elevated. BLE measure equally in length. No internal rotation noted to LLE. Denies any increased pain or decreased senation from baseline. In no acute distress. Instructed pt to call for staff for increased pain while resting or while maintaining PWB to LLE and/or decreased sensation to LLE. Pt verbalizes understanding. Call light w/ in reach.
[2021-02-11] MEDS: traMADol 50 MG Tablet PO (03:19)
[2021-02-11] MEDS: Calcium Carbonate 500 MG Tablet PO (03:20)
[2021-02-11 05:00] VITALS: BP 123/71; PULSE 71; RESP 16; TEMP 36.3; O2SAT 95
[2021-02-11] MEDS: Senna/Docusate Sodium 1 Tablet 2 TABLET PO ×2 (05:56→17:16)
[2021-02-11] MEDS: Meloxicam 7.5 MG Tablet PO ×2 (05:57→17:16)
[2021-02-11] MEDS: Cholecalciferol (VIT D3) 25 MCG TABLET (1,000 UNITS) 125 MCG PO (05:57)
[2021-02-11] MEDS: Polyethylene Glycol 3350 17 GM PACKET PO (05:58)
[2021-02-11 06:30] LABS: Bedside Glucose 104 mg/dL (70-110)
[2021-02-11 07:20] LABS: Absolute Neutrophil Count 4.8 X10^3/uL (2.0-7.7); Basophil# 0.02 X10^3/uL; Basophil% 0.3 % (0-1); Eosinophil# 0.36 X10^3/uL; Eosinophils% 4.6 % (0-5); Hematocrit 28.6 % (37-47); Hemoglobin 9.2 g/dL (12.0-15.0); Lymphocyte % 22.9 % (19-41); Mean Corp Hgb Conc 32.2 g/dL (32-36); Mean Corpuscular Hgb 28.6 pg (27.0-32.0); Mean Corpuscular Volume 88.8 fL (81-99); Mean Platelet Vol. 8.3 fl (6.2-12.0); Monocyte# 0.83 X10^3/uL; Monocyte% 10.5 % (0-10); NRBC Flagged by Analyzer 0 % (0-5); Neutrophil # 4.76 X10^3/uL (2.7-7.7); Neutrophil % 60.4 % (47-70); Platelet Count 334 K/mm3 (150-450); RBC Distribution Width CV 13.7 % (11.6-14.6); RBC Distribution Width SD 44.5 fl (35.1-43.9); Red Blood Count 3.22 M/mm3 (4.2-5.4); White Blood Count 7.9 K/mm3 (4.4-11.0)
[2021-02-11 07:41] LABS: Anion Gap 4 (5-15); BUN 34 mg/dL (7-18); BUN/Creat Ratio 37.9 RATIO (10-20); Chloride 104 mmol/L (98-107); EST Glomerular Filtration Rate 64 mL/min (>60); Est Glom Filt Rate - Afr Amer 78 mL/min (>60); Estimated Creatinine Clearance 43.01 ml/min; Glucose 110 mg/dL (74-106); Potassium 4.1 mmol/L (3.5-5.1); Sodium Level 138 mmol/L (136-145)
[2021-02-11] MEDS: metFORMIN HCl 500 MG Tablet PO (08:33)
[2021-02-11] MEDS: Iron Polysaccharide Complex 150 MG CAPSULE PO (08:34)
[2021-02-11] MEDS: Tuberculin,Purif.prot.deriv. 50 TU/ML Vial 5 ML ID (10:52)
[2021-02-11] MEDS: Acetaminophen 500 MG Tablet 1000 MG PO ×2 (12:53→22:56)
[2021-02-11 16:29] VITALS: BP 117/58; PULSE 71; RESP 16; TEMP 36.7; O2SAT 96
[2021-02-11 18:20] VITALS: PULSE 71; RESP 16; O2SAT 96
[2021-02-11] MEDS: cycloBENZAPRine HCl 10 MG Tablet PO (22:55)
[2021-02-12 05:00] VITALS: BP 124/70; PULSE 86; RESP 16; TEMP 36.5; O2SAT 95
[2021-02-12 06:21] LABS: Bedside Glucose 90 mg/dL (70-110)
[2021-02-12] MEDS: Senna/Docusate Sodium 1 Tablet 2 TABLET PO ×2 (06:30→17:30)
[2021-02-12] MEDS: Polyethylene Glycol 3350 17 GM PACKET PO (06:30)
[2021-02-12] MEDS: Cholecalciferol (VIT D3) 25 MCG TABLET (1,000 UNITS) 125 MCG PO (06:31)
[2021-02-12] MEDS: Meloxicam 7.5 MG Tablet PO ×2 (06:31→17:30)
[2021-02-12] MEDS: Acetaminophen 500 MG Tablet 1000 MG PO ×2 (08:27→22:10)
[2021-02-12] MEDS: Iron Polysaccharide Complex 150 MG CAPSULE PO (08:28)
[2021-02-12] MEDS: metFORMIN HCl 500 MG Tablet PO (08:28)
[2021-02-12 15:43] VITALS: BP 90/50; PULSE 86; RESP 16; TEMP 36.4; O2SAT 97
[2021-02-12 21:30] VITALS: PULSE 83; RESP 16; O2SAT 96
[2021-02-12] MEDS: cycloBENZAPRine HCl 10 MG Tablet PO (22:10)
[2021-02-13] MEDS: Calcium Carbonate 500 MG Tablet PO ×2 (01:41→23:12)
[2021-02-13] MEDS: traMADol 50 MG Tablet PO (01:45)
[2021-02-13] MEDS: Polyethylene Glycol 3350 17 GM PACKET PO (04:09)
[2021-02-13] MEDS: Senna/Docusate Sodium 1 Tablet 2 TABLET PO ×2 (04:13→17:20)
[2021-02-13] MEDS: Meloxicam 7.5 MG Tablet PO ×2 (04:13→17:20)
[2021-02-13] MEDS: Cholecalciferol (VIT D3) 25 MCG TABLET (1,000 UNITS) 125 MCG PO (04:13)
[2021-02-13] MEDS: Bisacodyl 5 MG Tablet 10 MG PO (04:34)
[2021-02-13 05:00] VITALS: BP 134/63; PULSE 86; RESP 16; O2SAT 95
[2021-02-13 06:21] LABS: Bedside Glucose 99 mg/dL (70-110)
[2021-02-13] MEDS: metFORMIN HCl 500 MG Tablet PO (08:03)
[2021-02-13] MEDS: Iron Polysaccharide Complex 150 MG CAPSULE PO (08:03)
[2021-02-13 09:37] VITALS: PULSE 80; RESP 16; O2SAT 96
[2021-02-13 16:00] VITALS: BP 116/53; PULSE 80; RESP 18; TEMP 36.8; O2SAT 96
[2021-02-13] MEDS: Acetaminophen 500 MG Tablet 1000 MG PO (22:35)
[2021-02-13] MEDS: cycloBENZAPRine HCl 10 MG Tablet PO (22:35)
[2021-02-13] MEDS: CLARIFY ORDER NOTE (22:59)
[2021-02-14] MEDS: Polyethylene Glycol 3350 17 GM PACKET PO (05:54)
[2021-02-14] MEDS: Meloxicam 7.5 MG Tablet PO ×2 (05:54→17:53)
[2021-02-14] MEDS: Cholecalciferol (VIT D3) 25 MCG TABLET (1,000 UNITS) 125 MCG PO (05:55)
[2021-02-14 06:35] LABS: Bedside Glucose 92 mg/dL (70-110)
[2021-02-14 06:54] VITALS: BP 117/56; PULSE 78; RESP 12; TEMP 36.3
[2021-02-14] MEDS: Iron Polysaccharide Complex 150 MG CAPSULE PO (07:52)
[2021-02-14] MEDS: metFORMIN HCl 500 MG Tablet PO (07:52)
--- NOTE | 2021-02-14 12:10 | MDS.RN ---
Information for the mds was obtained from review of the clinical record, interview of resident, staff, and direct observation of resident's care.
[2021-02-14 15:48] VITALS: BP 111/57; PULSE 81; RESP 16; TEMP 36.7; O2SAT 94
[2021-02-14 23:50] VITALS: PULSE 86; RESP 16; O2SAT 96
[2021-02-14] MEDS: Acetaminophen 500 MG Tablet 1000 MG PO (23:51)
[2021-02-14] MEDS: cycloBENZAPRine HCl 10 MG Tablet PO (23:51)
[2021-02-14] MEDS: Calcium Carbonate 500 MG Tablet PO (23:52)
[2021-02-15 05:00] VITALS: BP 124/63; PULSE 77; RESP 14; TEMP 36.5; O2SAT 94
[2021-02-15] MEDS: Polyethylene Glycol 3350 17 GM PACKET PO (06:22)
[2021-02-15] MEDS: Meloxicam 7.5 MG Tablet PO ×2 (06:23→18:21)
[2021-02-15] MEDS: Cholecalciferol (VIT D3) 25 MCG TABLET (1,000 UNITS) 125 MCG PO (06:24)
[2021-02-15] MEDS: metFORMIN HCl 500 MG Tablet PO (08:25)
[2021-02-15] MEDS: Iron Polysaccharide Complex 150 MG CAPSULE PO (08:25)
--- NOTE | 2021-02-15 10:12 | CASEMGMT ---
Addendum entered by Sherley Benton 02/17/21 10:14: Pt requesting [facility] OT as well. Updated order and referred to [facility] Addendum entered by Sherley Benton 02/16/21 10:18: Pt spoke with this worker and requesting to have [facility] prior to [facility]. Cancelled [facility] referral. Made referral for PT with [facility]. Original Note: Social Work Spoke with pt about DC plans. Pt requesting to DC home with 02/18. IDT agreeable. Pt requesting outpatient PT at [facility]. Referral made. Pt denied any DME needs. to transport. Plan: DC home with 02/18, [facility] PT KARLIE SawyerW
[2021-02-15 10:50] VITALS: PULSE 82; RESP 18; O2SAT 96
[2021-02-15 11:36] LABS: Bedside Glucose 88 mg/dL (70-110)
[2021-02-15 13:44] VITALS: BP 116/62; PULSE 86; RESP 16; TEMP 36.5; O2SAT 97
--- NOTE | 2021-02-15 19:50 | PCM.DC.SUM ---
Providers Date of Admission: 02/03/21 Primary Care Physician: Dr. Lacy Hummel MD Reason For Visit: LT TOTAL HIP ARTHROPLASTY Diagnosis Discharge Diagnosis (1) Debility: Status: Acute Code(s): R53.81 - Other malaise (2) Osteoarthritis of left hip: Status: Acute Code(s): M16.12 - Unilateral primary osteoarthritis, left hip (3) Vitamin B12 deficiency: Status: Acute Code(s): E53.8 - Deficiency of other specified B group vitamins (4) Multiple sclerosis: Status: Acute Code(s): G35 - Multiple sclerosis (5) Diabetes mellitus: Status: Acute Code(s): E11.9 - Type 2 diabetes mellitus without complications (6) Gastroesophageal reflux disease: Status: Acute Code(s): K21.9 - Gastro-esophageal reflux disease without esophagitis (7) Osteoporosis: Status: Acute Code(s): M81.0 - Age-related osteoporosis without current pathological fracture Medications at Discharge Home Medications cholecalciferol (vitamin D3) 5,000 unit PO DAILY 06/24/15 meloxicam 7.5 tab PO BID 06/24/15 risedronate [Atelvia] 35 mg PO QWEEK 06/24/15 conjugated estrogens 0.625 mg/gram vaginal cream 0.3125 mg VAGINAL DAILY g 01/24/21 lactase 9,000 unit tablet 9,000 unit PO ONCE PRN 01/24/21 metformin 500 mg tablet 500 mg PO DAILY 01/24/21 acetaminophen 1,000 mg PO Q6H PRN PRN #0 tab 02/15/21 calcium carbonate 500 mg PO BIDCM PRN #0 tab 02/15/21 cyanocobalamin (vitamin B-12) 1,000 mcg IM QMONTH #0 ml 02/15/21 cyclobenzaprine 10 mg PO TID PRN PRN 30 Days #90 tab 02/15/21 polysaccharide iron complex [Ferrex 150] 150 mg PO DAILYCM 30 Days #30 cap 02/15/21 tramadol 50 mg PO Q6H PRN PRN 7 Days #42 tab 02/15/21 Hospital Course Operations None Procedures None Summary of Care Provided Minutes Spent on Discharge: 30 Hospital Course: 80 year old female with below past medical history hospitalized for left total hip replacement 02/01/2021, admitted to TCU with debility, here for rehabilitation, strengthening, prior to discharge home with . Discharge home with 02/18/2021, [facility]. Physical Exam Const alert and oriented x3 General Appearance: cooperative HEENT normocephalic Eyes PERRL and EOMs intact bilaterally Neck supple, no JVD and no carotid bruits Resp normal respiratory effort, normal air movement and clear to auscultation bilaterally Cardio regular rate and regular rhythm GI normal to inspection, nondistended, normoactive bowel sounds, non-tender and non-distended Extremity normal capillary refill General Extremity: Negative for edema Skin no rashes or lesions noted General Skin Exam: no breakdown Psych affect normal Appearance: appropriate ABG / Lab / Microbiology Data Result Diagrams: 02/11/21 07:07 02/11/21 07:07 Laboratory: Laboratory Results - last 24 hr 02/15/21 06:24 POC Glucose 88 D/C Instructions Discharge Diet: No restrictions Discharge Activity: Return to Normal Activity, May Shower and Use Walker May resume sexual activity in: 6-8 weeks Weight Bearing Status: Weight bearing as tolerated Call your doctor if you observe: Fever of 101 or Higher, Inability to urinate, Inability to have a bowel movement, Shortness of breath, Fainting spells, Chest pain, Calf discomfort and Uncontrolled pain Additional Instructions: Discharge home with 02/18/2021, [facility]. Please Follow Up With: Lacy Hummel MD When: 1 week. Meaningful Use Info Meaningful Use Diagnoses (Choose all that apply): None applicable Discharge Plan Admission Admit Date/Time: 02/03/21 16:36 Primary Reason for Your Visit: Debility Attending Provider: Brandon Yeung Chi Primary Care Provider: Lacy Hummel Instructions Additional Instructions / Restrictions: Discharge home with 02/18/2021, [facility]. Discharge Orders/Prescriptions Prescriptions: New acetaminophen 500 mg Tablet 1,000 mg PO Q6H PRN PRN (Reason: Pain Score 1-5) Qty: 0 RF: 0 cyanocobalamin (vitamin B-12) 1,000 mcg/mL Solution 1,000 mcg IM QMONTH Qty: 0 RF: 0 cyclobenzaprine 10 mg Tablet 10 mg PO TID PRN PRN (Reason: Spasms) 30 Days Qty: 90 RF: 0 polysaccharide iron complex [Ferrex 150] 150 mg iron Capsule 150 mg PO DAILYCM 30 Days Qty: 30 RF: 0 tramadol 50 mg Tablet 50 mg PO Q6H PRN PRN (Reason: Pain Score 6-10) 7 Days Qty: 42 RF: 0 calcium carbonate 200 mg calcium (500 mg) Tablet,Chewable 500 mg PO BIDCM PRN (Reason: Indigestion) Qty: 0 RF: 0 Continued metformin 500 mg tablet 500 mg PO DAILY RF: 0 Lactase Fast Acting 9,000 unit tablet 9,000 unit PO ONCE PRN (Reason: lactose intolerance) RF: 0 conjugated estrogens 0.625 mg/gram cream 0.3125 mg vaginal DAILY RF: 0 risedronate [Atelvia] 35 MG tablet,delayed release (DR/EC) 35 mg PO QWEEK RF: 0 meloxicam 15 MG tablet 7.5 tab PO BID RF: 0 cholecalciferol (vitamin D3) 5,000 UNIT capsule 5,000 unit PO DAILY RF: 0 Discontinued acetaminophen [Tylenol Arthritis Pain] 650 mg tablet extended release 650 mg PO Q8H PRN (Reason: pain) RF: 0 cyanocobalamin (vitamin B-12) 1,000 mcg/mL solution 100 mcg IM QMONTH RF: 0 acetaminophen 500 mg Tablet 500 mg PO Q8 PRN (Reason: Pain) RF: 0 enoxaparin [Lovenox] 40 mg/0.4 mL Syringe 40 mg SUBCUT DAILY RF: 0 calcium carbonate [Tums] 200 mg calcium (500 mg) Tablet,Chewable 200 mg PO PRN PRN (Reason: GERD) RF: 0 Referrals / Follow Up: Lacy Hummel MD [Primary Care Provider] - Disposition Disposition (needs filled in before D/C Order can be placed): Home, self care
[2021-02-15] MEDS: Acetaminophen 500 MG Tablet 1000 MG PO (23:23)
[2021-02-15] MEDS: cycloBENZAPRine HCl 10 MG Tablet PO (23:25)
[2021-02-15] MEDS: Calcium Carbonate 500 MG Tablet PO (23:25)
[2021-02-16] MEDS: Meloxicam 7.5 MG Tablet PO ×2 (05:30→17:24)
[2021-02-16] MEDS: Cholecalciferol (VIT D3) 25 MCG TABLET (1,000 UNITS) 125 MCG PO (05:30)
[2021-02-16] MEDS: Polyethylene Glycol 3350 17 GM PACKET PO (05:39)
[2021-02-16 06:31] LABS: Bedside Glucose 114 mg/dL (70-110)
[2021-02-16 07:02] VITALS: BP 137/73; PULSE 82; RESP 12; TEMP 36.8
[2021-02-16] MEDS: Iron Polysaccharide Complex 150 MG CAPSULE PO (08:17)
[2021-02-16] MEDS: metFORMIN HCl 500 MG Tablet PO (08:17)
[2021-02-16 16:12] VITALS: BP 98/48; PULSE 80; RESP 14; TEMP 36.8; O2SAT 95
[2021-02-16 22:30] VITALS: PULSE 83; RESP 18; O2SAT 97
[2021-02-16] MEDS: cycloBENZAPRine HCl 10 MG Tablet PO (23:12)
[2021-02-16] MEDS: Acetaminophen 500 MG Tablet 1000 MG PO (23:13)
[2021-02-16] MEDS: Calcium Carbonate 500 MG Tablet PO (23:15)
[2021-02-17 05:00] VITALS: BP 128/65; PULSE 80; RESP 16; TEMP 36.5; O2SAT 94
[2021-02-17] MEDS: Cholecalciferol (VIT D3) 25 MCG TABLET (1,000 UNITS) 125 MCG PO (06:09)
[2021-02-17] MEDS: Meloxicam 7.5 MG Tablet PO ×2 (06:09→16:49)
[2021-02-17 06:26] LABS: Bedside Glucose 84 mg/dL (70-110)
[2021-02-17] MEDS: Iron Polysaccharide Complex 150 MG CAPSULE PO (08:57)
[2021-02-17] MEDS: metFORMIN HCl 500 MG Tablet PO (08:57)
[2021-02-17 13:07] VITALS: PULSE 88; RESP 16; O2SAT 98
--- NOTE | 2021-02-17 13:26 | CASEMGMT ---
BIMS and PHQ9 interviews completed on this date for MDS assessment. NICK Barba
[2021-02-17 16:51] VITALS: BP 100/57; PULSE 88; RESP 16; TEMP 36.9; O2SAT 98
[2021-02-17] MEDS: Acetaminophen 500 MG Tablet 1000 MG PO (23:11)
[2021-02-17] MEDS: Calcium Carbonate 500 MG Tablet PO (23:12)
[2021-02-17] MEDS: cycloBENZAPRine HCl 10 MG Tablet PO (23:12)
[2021-02-18] MEDS: Meloxicam 7.5 MG Tablet PO (05:28)
[2021-02-18] MEDS: Cholecalciferol (VIT D3) 25 MCG TABLET (1,000 UNITS) 125 MCG PO (05:28)
[2021-02-18 06:18] VITALS: BP 127/58; PULSE 77; RESP 12; TEMP 36.9; O2SAT 93
[2021-02-18 06:30] LABS: Bedside Glucose 95 mg/dL (70-110)
[2021-02-18] MEDS: Iron Polysaccharide Complex 150 MG CAPSULE PO (08:39)
[2021-02-18] MEDS: metFORMIN HCl 500 MG Tablet PO (08:39)
[2021-02-18 08:41] LABS: Absolute Lymphocyte Count 1.61 X10^3/uL (0.83-4.51); Absolute Neutrophil Count 4.3 X10^3/uL (2.0-7.7); Basophil# 0.07 X10^3/uL; Eosinophils% 5.7 % (0-5); Hematocrit 32.1 % (37-47); Hemoglobin 10.4 g/dL (12.0-15.0); Lymphocyte # 1.61 X10^3/ul (0.83-4.51); Lymphocyte % 22.9 % (19-41); Mean Corp Hgb Conc 32.4 g/dL (32-36); Mean Corpuscular Hgb 28.7 pg (27.0-32.0); Mean Corpuscular Volume 88.4 fL (81-99); Mean Platelet Vol. 8.5 fl (6.2-12.0); Monocyte# 0.66 X10^3/uL; Monocyte% 9.4 % (0-10); NRBC Flagged by Analyzer 0 % (0-5); Neutrophil # 4.28 X10^3/uL (2.7-7.7); Neutrophil % 60.7 % (47-70); Platelet Count 425 K/mm3 (150-450); RBC Distribution Width CV 13.5 % (11.6-14.6); RBC Distribution Width SD 43.7 fl (35.1-43.9); Red Blood Count 3.63 M/mm3 (4.2-5.4)
[2021-02-18 09:02] LABS: Anion Gap 5 (5-15); BUN 37 mg/dL (7-18); BUN/Creat Ratio 40.4 RATIO (10-20); Calcium,Total 9.2 mg/dL (8.5-10.1); Chloride 103 mmol/L (98-107); Creatinine, Serum 0.92 mg/dL (0.55-1.02); EST Glomerular Filtration Rate 63 mL/min (>60); Est Glom Filt Rate - Afr Amer 76 mL/min (>60); Estimated Creatinine Clearance 42.04 ml/min; Glucose 91 mg/dL (74-106); Potassium 4.1 mmol/L (3.5-5.1); Sodium Level 139 mmol/L (136-145)
[2021-02-18 09:40] VITALS: PULSE 84; RESP 18; O2SAT 96
[2021-02-18 13:15] VITALS: BP 129/61; PULSE 77; RESP 16; TEMP 36.7; O2SAT 96
== END 2021-02-18 12:35 | disposition home or self-care (01) | DRG 560 ==
PROVIDERS: Admitting Provider Family Medicine Geriatric Medicine; PCP Internal Medicine; Visit Provider Family Medicine Geriatric Medicine
DX: Z47.1 Aftercare following joint replacement surgery (principal); R47.01 Aphasia; Z96.642 Presence of left artificial hip joint; K21.9 Gastro-esophageal reflux disease without esophagitis; G35 Multiple sclerosis; M47.892 Other spondylosis, cervical region; E53.8 Deficiency of other specified B group vitamins; M81.0 Age-related osteoporosis without current pathological fracture; N95.2 Postmenopausal atrophic vaginitis; E11.9 Type 2 diabetes mellitus without complications; Z79.899 Other long term (current) drug therapy; Z79.01 Long term (current) use of anticoagulants; Z79.84 Long term (current) use of oral hypoglycemic drugs; Z87.891 Personal history of nicotine dependence
CPT/HCPCS: 36415; 80048; 82962; 85025; 87635; 97110; 97116; 97162; 97166; 97530; 97535; 97802; U0002

== ENCOUNTER 2021-04-17 11:30 | Outpatient (RCR) | payer MEDICARE, OTHER, SELFPAY ==
--- NOTE | 2021-03-20 14:51 | HP.PTEVAL ---
Patient's Visit Information JOE CEE is a 80 year old F referred to Physical Therapy by Dr. Brandon Yeung MD with a diagnosis of L MERLE. Date of Evaluation: 03/20/21 Physical Therapist: Sang Law DPT, OCS, CSCS - Visit Plan Frequency: 2-3x /Week Duration: 4-6 Weeks Plan: Posterior MERLE precautions to be conscious of. 2-3x/week for 4-6 for. 1. LB ROM rotation and flexion stretching. 2. core strength. 3. gym based posture adn LE ex to I as member. - Subjective 5/[address] Lobo posterior L hip replacement. Had degenerated L hip and painful. Had been deteriorating for years. Meloxicam wasn't working anymore. Surgery went well. Was in TCU for a while after 2 days hopsital stay. stayed there two weeks and was home since late January and had home health. Pain level is 0/10 with meloxicam. Has some LBPnear SI joints. Stopped tylenol and muscle relaxer. Sleeping is OK now. Exercises: from home tae, sink and supine ex. Needs to be stronger. Stairs are already sofía than before surgery. Uses walking stick for scoliosis, no balance problem. Gardening is hobby and has started pulling weeds and got a kneeling stool to help her get up and down. Uses bench in shower but ready to get rid of it. Has walk in shower. Knows precautions;R shoulder to knee. - Objective L leg feels weak adn gets SOB with 300 feet of walking. Trasnfers I with UE. L leg slightly longer vs R. Concave L scoliosis. Short L step length. Safewithout aD. steps with one rail reciprocally but obviously weaker on the left. L hip flexion 100 adn ext 10, strength L hip ext 22# adn flexion 32#. 16 SEC tug. 26 womac. iNCISION HAS MILD SCAR TISSUE BTU OTHERWISE FEELS SOFT. Knee adn ankle aROM WNL and strength 4- B. Sensation LE WNL to gross light touch. LB AROM ext mod limited adn flexion hesitant and tight. Not a lot of rotation present especially during gait, very stiff. - Balance Scores Functional Gait Assessment Score: 27 % Disability: 10.0000 - Goals Goal 1:: I approp HEP for gym based strength of core, LE , posture adn LB ROM Goal Time Frame: 4-6 Weeks Goal 2:: Pt feel 75% better in strength and LB movement Goal Time Frame: 4-6 Weeks Goal 3:: Steps reciprocally without rail or signs of weakness. Goal Time Frame: 4-6 Weeks Goal 4:: <10 WOMAC score Goal Time Frame: 4-6 Weeks - Rehabilitation Potential Physical Therapy Diagnosis: L MERLE Rehabilitation Potential: Fair - Anticipated Interventions Patient/Client Instruction: Educate patient on: Condition, Plan of Care For the Purpose of:: To increase ROM, To improve muscle performance and motor function Therapeutic Exercise to Include: Strength training, Postural training, Flexibilty training, Gait and locomotor training, Neuromotor development, Passive ROM, Active ROM, Dynamic Lumbar Stabilization For the Purpose of:: To increase ROM, To improve muscle performance and motor function, To increase tolerance to activity/condition/position, To improve ability of physical actions for home/community/work/leisure, To improve gait and locomotor functions, To improve health of tissue Thank you for the opportunity to evaluate your patient. For Medicare and Medicare HMO plans, please review the plan of care and approve it. It will need to be FAXED BACK to us at [phone] for Medicare purposes. For Medicare only, by signing this I certify the plan of care. Please let me know if there are questions or concerns regarding this plan of care. Physician Signature: Date:
--- NOTE | 2021-04-17 15:35 | HP.PTDCSUM ---
It has been my pleasure to treat JOE CEE referred by Dr. Brandon Yeung MD, with the diagnosis of L MERLE for a total of 12 visit(s). Discharge Date: 04/17/21 Please see the following information for a summary of their discharge status. Subjective: Getting stronger. LBP in the morning at times 2/10 until gets moving. Hip is feeling well. Still not walking as far as she wants but mostly due to back pain. Plans to continue HEP and gym ex as a member. % Improvement: 60 Objective/Function: 21# L hip flexion and 30# ext. 11 second TUG. 12 l hip ext and 105 L flexion. Spinal ROM ext mod limtied, flexion min lliited. Gait is I with some stiffness in spine, no AD needed, overswings arms. Pt happy with hip but not with back progress. It is coming along but slow. Steps reciprocal with one rail and slow. Goal 1:: I approp HEP for gym based strength of core, LE , posture adn LB ROM Goal Progress: Goal Met Goal 2:: Pt feel 75% better in strength and LB movement Goal Progress: 60% Goal 3:: Steps reciprocally without rail or signs of weakness. Goal Progress: one rail needed. Goal 4:: <10 WOMAC score Goal Progress: Progressing Plan: d/c to HEP If there are questions or concerns regarding this patient's physical therapy, please feel free to call me at [phone]. Thank you for the referral of this patient. Sincerely, Sang Law, DPT, OCS, CSCS
== END 2021-04-17 19:00 | disposition home or self-care (01) ==
LOC: PT 11:30
PROVIDERS: PCP Internal Medicine; Referring Provider Family Medicine Geriatric Medicine; Visit Provider Family Medicine Geriatric Medicine
DX: Z47.1 Aftercare following joint replacement surgery (principal); Z96.642 Presence of left artificial hip joint
CPT/HCPCS: 97110; 97162; 97164

== ENCOUNTER 2021-09-01 17:52 | Emergency (ER) | payer MEDICARE, OTHER, SELFPAY ==
[2021-09-01 17:52] VITALS: TEMP 36.4; BMI 20.7
[2021-09-01 17:54] VITALS: BP 164/69; PULSE 73; RESP 16; O2SAT 99
[2021-09-01 19:09] LABS: Absolute Lymphocyte Count 1.91 X10^3/uL (0.83-4.51); Absolute Neutrophil Count 6.5 X10^3/uL (2.0-7.7); Basophil# 0.04 X10^3/uL; Basophil% 0.4 % (0-1); Eosinophil# 0.25 X10^3/uL; Eosinophils% 2.6 % (0-5); Hematocrit 38.4 % (37-47); Hemoglobin 12.9 g/dL (12.0-15.0); Lymphocyte # 1.91 X10^3/ul (0.83-4.51); Lymphocyte % 20.1 % (19-41); Mean Corp Hgb Conc 33.6 g/dL (32-36); Mean Corpuscular Hgb 28.3 pg (27.0-32.0); Mean Corpuscular Volume 84.2 fL (81-99); Mean Platelet Vol. 8.8 fl (6.2-12.0); Monocyte# 0.82 X10^3/uL; Monocyte% 8.6 % (0-10); NRBC Flagged by Analyzer 0 % (0-5); Neutrophil # 6.46 X10^3/uL (2.7-7.7); Neutrophil % 68.1 % (47-70); Platelet Count 289 K/mm3 (150-450); RBC Distribution Width CV 13.4 % (11.6-14.6); RBC Distribution Width SD 41.6 fl (35.1-43.9); Red Blood Count 4.56 M/mm3 (4.2-5.4); White Blood Count 9.5 K/mm3 (4.4-11.0)
[2021-09-01 19:24] LABS: Anion Gap 9 (5-15); BUN 37 mg/dL (7-18); BUN/Creat Ratio 33.6 RATIO (10-20); Chloride 103 mmol/L (98-107); EST Glomerular Filtration Rate 51 mL/min (>60); Est Glom Filt Rate - Afr Amer 62 mL/min (>60); Estimated Creatinine Clearance 30.78 ml/min; Glucose 101 mg/dL (74-106); Potassium 4.2 mmol/L (3.5-5.1); Sodium Level 139 mmol/L (136-145)
[2021-09-01 20:22] LABS: Bacteria 0 SEEN /hpf (None Seen); Mucous, Urine 0 SEEN /hpf (<or=2+); Red Blood Cells-Urine 0 SEEN /hpf (0-5); Squamous Epithelial Cells - UA 0 SEEN /hpf (5-10); White Blood Cells 0 SEEN /hpf (0-5)
--- NOTE | 2021-09-01 20:51 | CT_ITS ---
EXAM: CT Abdomen and Pelvis Without Intravenous Contrast CLINICAL INDICATION: 81 years old, Female; right flank pain TECHNIQUE: Helically acquired images were obtained of the abdomen and pelvis without intravenous contrast. This CT exam was performed using one or more of the following dose reduction techniques: automated exposure control, adjustment of the mA and/or kV according to patient size, and/or use of iterative reconstruction technique. This report was created using [employer] report generation technology. COMPARISON: None. FINDINGS: Lower thorax: Unremarkable. Lung bases are clear. No cardiomegaly. No significant pericardial effusion. ABDOMEN: Liver: Unremarkable. Homogeneous. Gallbladder and bile ducts: Unremarkable. No calcified gallstones. No gallbladder distention or wall edema. No intra- or extrahepatic biliary ductal dilation. Pancreas: Unremarkable. No focal cystic mass. Spleen: Unremarkable. Normal size without focal cystic or solid mass. Adrenals: Unremarkable. No nodules. Kidneys and ureters: Hydronephrosis right kidney with surrounding inflammation. No stones identified within the right kidney. There is a 3 mm stone in the right UVJ causing the obstruction. No stones in the left kidney and no hydronephrosis on the left. Normal renal size and position. Stomach and bowel: Unremarkable. No stomach or bowel distention. No focal inflammatory change. PELVIS: Appendix: No evidence of acute appendicitis. Bladder: Unremarkable. Reproductive: Calcified uterine fibroids. ABDOMEN and PELVIS: Intraperitoneal space: Unremarkable. No ascites or other fluid collection. No free air. Bones/joints: Left total hip arthroplasty. Components appear well seated. Degenerative changes right hip. Degenerative changes and scoliosis lumbar spine. No suspicious lytic or blastic abnormality. Soft tissues: Probable vessel pelvic wall hernia repair on the left. Vasculature: Atherosclerotic disease. Abdominal aorta is non-dilated. Lymph nodes: Unremarkable. No enlarged lymph nodes. CT/Abdomen/Pelvis without Cont IMPRESSION: Hydronephrosis right kidney with surrounding inflammation. No stones identified within the right kidney. There is a 3 mm stone in the right UVJ causing the obstruction. Electronically Signed: Ángel Wynn MD at 22:42 EST Tel , Service support ,
[2021-09-01 20:53] LABS: Color, Urine Yellow (Yellow); Glucose, Dipstick Normal (Normal); Ketone-Dipstick 50 mg/dl (Negative); Leukocyte Esterase-Dipstick Negative /ul (Negative); Nitrite-Dipstick Negative (Negative); Occult Blood-Urine 25 /ul (Negative); Protein-Dipstick Negative (Negative); Urine Bilirubin Dipstick Negative (Negative); Urine Clarity Clear (Clear); Urine Urobilinogen Normal (Normal)
--- NOTE | 2021-09-01 21:25 | EDS_ITS ---
HPI HPI - GI History of Present Illness Chief Complaint: Flank Pain Narrative Narrative: 81-year-old female with right flank pain. He states it started about 4:00. She feels like there is a pressure radiating around to the front. She has no nausea but states she started salivating. No fever or chills. No diaphoresis. No chest pain or shortness of breath. She is not had constipation or diarrhea. She denies urinary complaints. No history of kidney stones PFSH PFSH Medical History Abnormal electro-oculogram DJD (degenerative joint disease) of cervical spine Expressive aphasia GERD (gastroesophageal reflux disease) Multiple sclerosis Preop cardiovascular exam Type 2 diabetes mellitus Home Medications cholecalciferol (vitamin D3) 5,000 unit PO DAILY 06/24/15 [History Last Taken 06/24/15] meloxicam 7.5 tab PO BID 06/24/15 [History Last Taken 06/24/15] risedronate [Atelvia] 35 mg PO QWEEK 06/24/15 [History Last Taken Unknown] conjugated estrogens 0.625 mg/gram vaginal cream 0.3125 mg VAGINAL DAILY g 01/24/21 [History Last Taken Unknown] lactase 9,000 unit tablet 9,000 unit PO ONCE PRN 01/24/21 [History Last Taken Unknown] metformin 500 mg tablet 500 mg PO DAILY 01/24/21 [History Last Taken Unknown] calcium carbonate 500 mg PO BIDCM PRN #0 tab 02/15/21 [Rx Last Taken Unknown] cyanocobalamin (vitamin B-12) 1,000 mcg IM QMONTH #0 ml 02/15/21 [Rx Last Taken Unknown] tramadol 50 mg PO Q6H PRN PRN 7 Days #42 tab 02/15/21 [Rx Last Taken Unknown] hydrocodone-acetaminophen 1 tab PO Q8H PRN 3 Days #10 tab 09/01/21 [Rx Last Taken Unknown] ondansetron HCl [Zofran] 4 mg PO Q8H PRN #14 tab 09/01/21 [Rx Last Taken Unknown] Allergy/AdvReac Type Severity Reaction Status Date / Time Penicillins Allergy Severe Rash Verified 03/27/21 11:27 amoxicillin Allergy Rash Verified 03/27/21 11:27 clindamycin AdvReac Severe Diarrhea Verified 03/27/21 11:27 prochlorperazine AdvReac Other Verified 03/27/21 11:27 [From Compazine] Family History Father Colon cancer Mother Thyroid disorder Osteoporosis Surgical History History of bunionectomy History of left hip replacement History of left inguinal hernia repair History of tonsillectomy History of tubal ligation Social History household members: spouse Smoking Status: Former smoker alcohol intake: current details: Glass of wine daily. substance use type: does not use caffeine: Yes ROS ROS ED Constitutional Constitutional ED: Denies chills or fever(s) ENT ENT ED: Denies rhinorrhea or sore throat Cardiovascular Cardiovascular: Denies palpitations or racing heartbeat Respiratory/Chest Respiratory/Chest: Denies cough or dyspnea Gastrointestinal Gastrointestinal: Reports abdominal pain; Denies constipation, diarrhea, nausea or vomiting Genitourinary Genitourinary ED: Denies dysuria or hematuria Musculoskeletal Musculoskeletal: Reports back pain; Denies myalgias Integumentary Denies rash Neurologic Neurologic: Denies headache(s) or paresthesias EXAM Physical Exam Const Vital Signs: 09/01/21 17:52 09/01/21 17:54 09/01/21 22:39 Temperature 97.5 F L Temperature Source Temporal Pulse Rate 73 85 Respiratory Rate 16 16 Blood Pressure 164/69 H 144/75 H Blood Pressure Mean 100 Pulse Ox 99 99 Positive well nourished General Appearance ED: NAD; Negative for pallor HEENT Reports moist mucous membranes normocephalic and atraumatic Eyes PERRL and EOMs intact bilaterally Resp normal respiratory effort and clear to auscultation bilaterally Cardio regular rate and regular rhythm GI non-distended Palpation: soft Back/Spine Back/Spine Narrative: Right lumbar paraspinal muscular tenderness. No midline spinal deformity or step-off Psych mental status grossly normal Skin General Skin Exam: Negative for jaundice or pallor Rashes: no rashes MDM MDM MDM Narrative Medical decision making narrative: Patient presenting with right flank pain and the feeling of pressure in her right flank. I did obtain blood work and her CBC is normal. BMP shows a creatinine of 1.10 otherwise her electrolytes are normal. Urinalysis is positive for occult blood. CT of the abdomen pelvis with out contrast shows a right UVJ stone. This is about 3 mm. This should pass spontaneously. Patient did not have pain or nausea in the ER and did not request any medicine. I will prescribe her [place] and Zofran for home. She prefers not to take these but she may need them in the short-term. She is given follow-up with urology. Impression: 1. Right UVJ stone 2. Hematuria Lab Data Labs: Laboratory Results - last 24 hr 09/01/21 09/01/21 09/01/21 18:50 18:50 20:18 WBC 9.5 RBC 4.56 Hgb 12.9 Hct 38.4 MCV 84.2 MCH 28.3 MCHC 33.6 RDW Std Deviation 41.6 RDW Coeff of Danny 13.4 Plt Count 289 MPV 8.8 Immature Gran % (Auto) 0.200 Neut % (Auto) 68.1 Lymph % (Auto) 20.1 [place] % (Auto) 8.6 Eos % (Auto) 2.6 Baso % (Auto) 0.4 Absolute Neuts (auto) 6.5 Absolute Lymphs (auto) 1.91 Nucleated RBC % 0 Sodium 139 Potassium 4.2 Chloride 103 Carbon Dioxide 27.0 Anion Gap 9 BUN 37 H Creatinine 1.10 H Estim Creat Clear Calc 30.78 Est GFR (MDRD) Af Amer 62 Est GFR (MDRD) Non-Af 51 L BUN/Creatinine Ratio 33.6 H Glucose 101 Calcium 10.0 Urine Color Yellow Urine Clarity Clear Urine pH 6.0 Ur Specific [place] 1.020 Urine Protein Negative Urine Glucose (UA) Normal Urine Ketones 50 H Urine Occult Blood 25 H Urine Nitrite Negative Urine Bilirubin Negative Urine Urobilinogen Normal Ur Leukocyte Esterase Negative Urine RBC 0 SEEN Urine WBC 0 SEEN Ur Squamous Epith Cells 0 SEEN Calcium Oxalate Crystal 2+ Urine Bacteria 0 SEEN Urine Mucus 0 SEEN Radiography Diagnostic Testing: Clinical Impression(s) from Imaging Studies Abdomen/Pelvis CT 09/01/21 20:51 IMPRESSION: Hydronephrosis right kidney with surrounding inflammation. No stones identified within the right kidney. There is a 3 mm stone in the right UVJ causing the obstruction. Electronically Signed: Ángel Wynn MD at 22:42 EST Tel , Service support , Discharge Plan Triage Chief Complaint: Flank Pain ED Provider: Brando Long Dx/Rx/DC Orders Instructions: ED Kidney Stone w/ Colic Prescriptions: New ondansetron HCl [Zofran] 4 mg tablet 4 mg PO Q8H PRN (Reason: nausea and vomiting) Qty: 14 RF: 0 hydrocodone-acetaminophen 5-325 mg tablet 1 tab PO Q8H PRN (Reason: pain) 3 Days Qty: 10 RF: 0 No Action metformin 500 mg tablet 500 mg PO DAILY RF: 0 Lactase Fast Acting 9,000 unit tablet 9,000 unit PO ONCE PRN (Reason: lactose intolerance) RF: 0 conjugated estrogens 0.625 mg/gram cream 0.3125 mg vaginal DAILY RF: 0 risedronate [Atelvia] 35 MG tablet,delayed release (DR/EC) 35 mg PO QWEEK RF: 0 meloxicam 15 MG tablet 7.5 tab PO BID RF: 0 cholecalciferol (vitamin D3) 5,000 UNIT capsule 5,000 unit PO DAILY RF: 0 cyanocobalamin (vitamin B-12) 1,000 mcg/mL Solution 1,000 mcg IM QMONTH Qty: 0 RF: 0 tramadol 50 mg Tablet 50 mg PO Q6H PRN PRN (Reason: Pain Score 6-10) 7 Days Qty: 42 RF: 0 calcium carbonate 200 mg calcium (500 mg) Tablet,Chewable 500 mg PO BIDCM PRN (Reason: Indigestion) Qty: 0 RF: 0 Primary Care Provider: Lacy Hummel Referrals: Bessie Jones MD [STAFF PHYSICIAN] - As soon as possible Lacy Hummel MD [Primary Care Provider] - Disposition Disposition: Home, Self Care Discharge Date/Time: 09/01/21 22:39
[2021-09-01 21:50] LABS: Calcium Oxalate Crystals Ur 2+ /hpf (<or=2+)
[2021-09-01 22:39] VITALS: BP 144/75; PULSE 85; RESP 16; O2SAT 99
== END 2021-09-01 22:39 | disposition home or self-care (01) ==
PROVIDERS: Emergency Provider Student in an Organized Health Care Education/Training Program; PCP Internal Medicine
DX: N20.1 Calculus of ureter (principal); R31.9 Hematuria, unspecified; Z87.891 Personal history of nicotine dependence
CPT/HCPCS: 74176; 80048; 81001; 85025; 99283; A4216

== ENCOUNTER → 2021-09-15 14:35 | Outpatient (CLI) | payer MEDICARE, OTHER, SELFPAY ==
--- NOTE | 2021-09-15 14:42 | US_ITS ---
STUDY: RENAL ULTRASOUND - COMPLETE REASON FOR EXAM: Female, 81 years old. RENAL CALC. W/HYDRONEPHROSIS TECHNIQUE: Ultrasound evaluation of the kidneys was performed with real-time and static bonner-scale imaging. COMPARISON: CT 09/01/21 FINDINGS: RIGHT KIDNEY: Normal location of the right kidney, which is normal in size. The right kidney measures 11.2 x 5 .5 cm. There is a normal cortex of the right kidney. The renal cortex measures 1.1 cm. There is no right renal mass or cyst. There are no right renal calculi. There is no right hydronephrosis. DISTAL RIGHT URETER: There is non-visualization of the distal right ureter. There is no demonstrated right ureterovesical junction calculus. There is a visualized right ureteral jet. LEFT KIDNEY: Normal location of the left kidney, which is normal in size. The left kidney measures 11.7 x 4.6 cm. There is a normal cortex of the left kidney. The renal cortex measures 1.5 cm. There is no left renal mass or cyst. There are no left renal calculi. There is no left hydronephrosis. DISTAL LEFT URETER: There is non-visualization of the distal left ureter. There is no demonstrated left ureterovesical junction calculus. There is a visualized left ureteral jet. AORTA: There is obscuration of the abdominal aorta by overlying bowel gas I.V.C.: The IVC is obscured. BLADDER: The distended urinary bladder has a volume of 52 ml. There is a normal wall thickness of the distended urinary bladder. There is no demonstrated mass within the urinary bladder. There are demonstrated bladder calculi. This measures 5 mm. Urinary bladder demonstrates trabeculation. US/Kidney and Bladder IMPRESSION: There are demonstrated bladder calculi. Electronically Signed: Darryl You MD at 16:28 EST , Service support ,
== END ==
PROVIDERS: PCP Internal Medicine; Referring Provider Urology; Visit Provider Urology
DX: N13.2 Hydronephrosis with renal and ureteral calculous obstruction (principal)
CPT/HCPCS: 76770

== ENCOUNTER 2022-06-05 12:29 | Emergency (ER) | payer OTHER, MEDICARE, SELFPAY ==
[2022-06-05 12:30] VITALS: BP 182/71; PULSE 69; RESP 16; TEMP 36.7; O2SAT 98; BMI 20.7
--- NOTE | 2022-06-05 12:44 | RAD_ITS ---
STUDY: X-RAY - ABDOMEN/PELVIS REASON FOR EXAM: Female, 81 years old. Accidentally swallowed dental tool TECHNIQUE: Single AP view of the abdomen / pelvis. COMPARISON: None. FINDINGS: Normal visualized lung bases. There is an unremarkable bowel gas pattern. There is no demonstrated free abdominal air. The visualized liver, spleen and kidneys are grossly normal in size and morphology. There are calcified phleboliths in the pelvis. There are diffuse degenerative changes of the visualized lumbar spine. RAD/Abdomen Single View (Portable) IMPRESSION: No acute abnormality of the abdomen and pelvis. Electronically Signed: Deisy Borges MD at 13:24 EDT ,
--- NOTE | 2022-06-05 12:48 | EX.ED.DYSGE1 ---
HPI History of Present Illness Chief Complaint: Foreign Body Detail of Chief Complaint: Swallowed dental grinding bit Informant: patient Onset/Context/Timing Onset: Hours Context: Sudden Onset Timing: Continuous Quality: Initial felt was in throat. Now points to epigastrium region Location: GI Current Severity: Not applicable Maximum Severity: Not applicable Worsened by: Not applicable Relieved by: Not applicable Associated Symptoms Associated Symptoms: None Narrative Narrative: Patient is an 81-year-old woman was at the dentist office. There apparently was a rough spot on the splint that was applied to the left upper molars. The DM had been removed. The grinding bit fell out of the drill and patient swallowed by accident. She initially felt the drill bit was in her throat. She is now pointing to the epigastric area. Patient brought a sample of what she swallowed. There are blunted ends. If this is in her stomach will pass without complication. If it is noted in the neck portion will consult pulmonary for removal Prior similar symptoms: No Recent Illness/Hospitalization: No PFSH PFSH Medical History Abnormal electro-oculogram DJD (degenerative joint disease) of cervical spine Expressive aphasia GERD (gastroesophageal reflux disease) Multiple sclerosis Preop cardiovascular exam Type 2 diabetes mellitus Home Medications cholecalciferol (vitamin D3) 125 mcg (5,000 unit) capsule 5,000 unit PO DAILY Supplement 06/24/15 [History Last Taken 06/24/15] meloxicam 15 mg tablet 7.5 tab PO BID Arthritis pain 06/24/15 [History Last Taken 06/24/15] risedronate 35 mg tablet,delayed release (Atelvia) 35 mg PO QWEEK Osteoporosis 06/24/15 [History Last Taken Unknown] conjugated estrogens 0.625 mg/gram vaginal cream 0.3125 mg vaginal DAILY Estrogen 01/24/21 [History Last Taken Unknown] lactase 9,000 unit tablet (Lactase Fast Acting) 9,000 unit PO ONCE PRN lactose intolerance 01/24/21 [History Last Taken Unknown] metformin 500 mg tablet 500 mg PO DAILY Diabetes 01/24/21 [History Last Taken Unknown] calcium carbonate 200 mg calcium (500 mg) chewable tablet 500 mg PO BIDCM PRN Indigestion #0 tabs 02/15/21 [Rx Last Taken Unknown] cyanocobalamin (vitamin B-12) 1,000 mcg/mL injection solution 1,000 mcg IM QMONTH #0 mL 02/15/21 [Rx Last Taken Unknown] tramadol 50 mg tablet 50 mg PO Q6H PRN PRN Pain Score 6-10 7 days #42 tabs 02/15/21 [Rx Last Taken Unknown] hydrocodone-acetaminophen 5-325mg 5mg-325mg 1 tab PO Q8H PRN pain 3 days #10 tabs 09/01/21 [Rx Last Taken Unknown] ondansetron HCl 4 mg tablet (Zofran) 4 mg PO Q8H PRN nausea and vomiting #14 tabs 09/01/21 [Rx Last Taken Unknown] Allergy/AdvReac Type Severity Reaction Status Date / Time Penicillins Allergy Severe Rash Verified 06/05/22 12:34 amoxicillin Allergy Rash Verified 06/05/22 12:34 clindamycin AdvReac Severe Diarrhea Verified 06/05/22 12:34 prochlorperazine AdvReac Other Verified 06/05/22 12:34 [From Compazine] Family History Father Colon cancer Mother Thyroid disorder Osteoporosis Surgical History History of bunionectomy History of left hip replacement History of left inguinal hernia repair History of tonsillectomy History of tubal ligation Social History household members: spouse Smoking Status: Former smoker alcohol intake: current details: Glass of wine daily. substance use type: does not use caffeine: Yes ROS ROS ED Constitutional Constitutional ED: Denies chills, fever(s), subjective, sweats or weight loss ENT ENT ED: Reports sore throat; Denies ear pain or rhinorrhea Cardiovascular Cardiovascular: Denies chest pain, palpitations or racing heartbeat Respiratory/Chest Respiratory/Chest: Denies cough, dyspnea or dyspnea on exertion Gastrointestinal Gastrointestinal: Denies nausea or vomiting Hematologic/Lymphatic Hematologic/Lymphatic: Denies easy bleeding, easy bruising or lymphadenopathy EXAM Physical Exam Const Vital Signs: 06/05/22 12:30 Temperature 98.0 F Temperature Source Temporal Pulse Rate 69 Respiratory Rate 16 Blood Pressure 182/71 H Blood Pressure Mean 108 Pulse Ox 98 Oxygen Delivery Method Room Air Positive well nourished and well developed Constitutional Narrative: Patient is scrolling through the Internet on her smart phone as I am attempting to obtain a history and physical General Appearance ED: well developed and NAD; Negative for cyanotic or diaphoretic HEENT Reports moist mucous membranes HEENT Narrative: Uvula midline. No angioedema. No deviation tongue with protrusion. No abnormality the posterior pharynx noted. Eyes PERRL and EOMs intact bilaterally General Eye ED: Negative for pale conjunctiva or scleral icterus Neck no lymphadenopathy, supple and no JVD Neck Narrative: Trachea is midline. There is no inspiratory expiratory stridor. There is no crepitus Resp normal respiratory effort and clear to auscultation bilaterally Cardio regular rate, regular rhythm, S1 normal heart sound, S2 normal heart sound and no murmurs Neuro oriented x3, CN's II-XII intact bilaterally and no sensory deficits noted Sensorium / Orientation: alert Psych mental status grossly normal Skin no rashes or lesions noted, no wounds and skin turgor normal MDM MDM MDM Narrative Medical decision making narrative: Soft tissue x-ray of the neck and KUB was obtained to determine the location of the grinding bit Radiography Chest X-Ray - ED: Read by ED Physician (2 view x-ray of the neck soft tissue and single KUB of the abdomen reveals the foreign body to be in the stomach. This will pass without difficulty. Patient has significant degenerative changes of the spine and scoliosis. There is no acute process other than the foreign body as previously describ) Discharge Plan Triage Chief Complaint: Foreign Body ED Provider: Tonny Ventura Dx/Rx/DC Orders Clinical Impression: Foreign body, swallowed Instructions: ED Swallowed Foreign Body (Adult) Prescriptions: No Action metformin 500 mg tablet 500 mg PO DAILY Lactase Fast Acting 9,000 unit tablet 9,000 unit PO ONCE PRN (Reason: lactose intolerance) Rx Instructions: administer with meals and/or snacks conjugated estrogens 0.625 mg/gram cream 0.3125 mg vaginal DAILY Rx Instructions: off 5 days; repeat cycle risedronate [Atelvia] 35 MG tablet,delayed release (DR/EC) 35 mg PO QWEEK Label Comments: BONES meloxicam 15 MG tablet 7.5 tab PO BID Label Comments: WITH MEALS. PAIN INFLAMMATION cholecalciferol (vitamin D3) 5,000 UNIT capsule 5,000 unit PO DAILY Label Comments: SUPPLEMENT cyanocobalamin (vitamin B-12) 1,000 mcg/mL Solution 1,000 mcg IM QMONTH Qty: 0 0RF tramadol 50 mg Tablet 50 mg PO Q6H PRN PRN (Reason: Pain Score 6-10) 7 Days Qty: 42 0RF calcium carbonate 200 mg calcium (500 mg) Tablet,Chewable 500 mg PO BIDCM PRN (Reason: Indigestion) Qty: 0 0RF ondansetron HCl [Zofran] 4 mg tablet 4 mg PO Q8H PRN (Reason: nausea and vomiting) Qty: 14 0RF hydrocodone-acetaminophen 5-325 mg tablet 1 tab PO Q8H PRN (Reason: pain) 3 Days Qty: 10 0RF Primary Care Provider: Lacy Hummel Referrals: Lacy Hummel MD [Primary Care Provider] - As Needed Disposition Disposition: Home, Self Care
--- NOTE | 2022-06-05 12:50 | RAD_ITS ---
STUDY: X-RAY - SOFT TISSUE NECK REASON FOR EXAM: Female, 81 years old. accidentally swallowed dental tool TECHNIQUE: 2 view(s) of the neck were obtained. COMPARISON: None. FINDINGS: Normal visualized nasopharynx, oropharynx, hypopharynx. Normal epiglottis. Normal visualized subglottic tracheal air column. Normal prevertebral soft tissue structures. There are degenerative changes of the cervical spine with cervical spondylosis. The soft tissue structures are unremarkable. RAD/Neck for Soft Tissue IMPRESSION: Normal x-ray soft tissue neck. Electronically Signed: Deisy Borges MD at 13:33 EDT ,
== END 2022-06-05 13:20 | disposition home or self-care (01) ==
LOC: ED 13:13
PROVIDERS: Emergency Provider Emergency Medicine; PCP Internal Medicine; Visit Provider Emergency Medicine
DX: T18.9XXA Foreign body of alimentary tract, part unspecified, initial encounter (principal); Z87.891 Personal history of nicotine dependence; X58.XXXA Exposure to other specified factors, initial encounter
CPT/HCPCS: 70360; 74018; 99282

== ENCOUNTER 2024-06-02 15:37 | Emergency (ER) | payer OTHER, MEDICARE, SELFPAY ==
[2024-06-02 15:37] VITALS: BP 123/75; PULSE 80; RESP 16; TEMP 36.7; O2SAT 95
== END 2024-06-02 16:10 | disposition left against medical advice (07) ==
LOC: ED 16:14
PROVIDERS: PCP Internal Medicine
DX: Z53.21 Procedure and treatment not carried out due to patient leaving prior to being seen by health care provider (principal)

== ENCOUNTER → 2024-09-08 | Outpatient (CLI) | payer MEDICARE, OTHER, SELFPAY ==
--- NOTE | 2024-09-08 06:47 | ECHOD_ITS ---
Reason For Study: SYNCOPE Procedure This was a 2D Doppler, Color Flow transthoracic echocardiogram. Exam performed in department. Left Ventricle Normal left ventricular thickness. The left ventricular ejection fraction is 65 %. Unable to assess diastolic function based on available data. Right Ventricle Normal right ventricle. Atria The left and right atria are normal. Mitral Valve Mild mitral annular calcification. Mild (1+) mitral valve insufficiency. Tricuspid Valve Mild tricuspid valve insufficiency. Normal pulmonary artery pressure. Aortic Valve Trisinus/trileaflet aortic valve. Mild-Moderate (1-2+) eccentric aortic valve insufficiency. Pulmonic Valve The pulmonic valve is not well visualized. Trivial pulmonic valve insufficiency. Great Vessels Normal sized aortic root. Pericardium/Pleural No pericardial effusion. MMode/2D Measurements & Calculations LVIDd: 3.9 cm IVSd: 0.90 cm LVOT diam: 1.8 cm LVIDs: 2.1 cm LVPWd: 0.77 cm LVOT area: 2.5 cm2 RVDd: 2.7 cm FS: 47.2 % asc Aorta Diam: 3.2 cm LAV(MOD-bp): 32.9 ml LVAd ap4: 16.8 cm2 LAV(MOD-bp) Indexed: 22.1 ml/m2 LVLd ap4: 6.3 cm LAV(MOD-sp2): 34.7 ml EDV(MOD-sp4): 36.9 ml LAV(MOD-sp4): 31.5 ml EDV(sp4-el): 38.3 ml LVAs ap4: 9.0 cm2 LVLs ap4: 5.3 cm ESV(MOD-sp4): 12.5 ml ESV(sp4-el): 13.1 ml EF(MOD-sp4): 66.1 % EF(sp4-el): 65.8 % LVAd ap2: 15.9 cm2 SV(MOD-sp4): 24.4 ml SV(MOD-sp2): 22.4 ml LVLd ap2: 5.9 cm SI(MOD-sp4): 16.4 ml/m2 SI(MOD-sp2): 15.0 ml/m2 EDV(MOD-sp2): 36.2 ml EDV(sp2-el): 35.9 ml LVAs ap2: 8.9 cm2 LVLs ap2: 4.8 cm ESV(MOD-sp2): 13.8 ml ESV(sp2-el): 13.9 ml EF(MOD-sp2): 61.9 % SV(sp4-el): 25.2 ml Ao sinus diam: 2.[address] Junction: 2.4 cm LA dimension(2D): 3.1 cm LA A4 area: 13.6 cm2 RA A4 area: 10.2 cm2 TAPSE: 2.3 cm Time Measurements MV dec time: 0.26 sec Doppler Measurements & Calculations MV A max enrique: 91.4 cm/sec Lat Peak E' Enrique: 6.8 cm/sec Med Peak E' Enrique: 8.0 cm/sec Ao V2 max: 99.1 cm/sec LV V1 max: 83.3 cm/sec SV(LVOT): 55.0 ml Ao max P.9 mmHg LV V1 max P.8 mmHg Ao V2 mean: 66.7 cm/sec LV V1 mean P.7 mmHg Ao mean P.1 mmHg LV V1 mean: 61.8 cm/sec Ao V2 VTI: 23.2 cm LV V1 VTI: 22.3 cm AV (velocity ratio): 0.96 SILAS(I,D): 2.4 cm2 SILAS(V,D): 2.1 cm2 TV V2 max: 237.7 cm/sec PA V2 max: 52.4 cm/sec TR max enrique: 245.7 cm/sec TV max P.6 mmHg TR max P.2 mmHg ECHO/Echo Complete Interpretation Summary The left ventricular ejection fraction is 65 %. Mild mitral annular calcification. Mild (1+) mitral valve insufficiency. Mild tricuspid valve insufficiency. Mild-Moderate (1-2+) eccentric aortic valve insufficiency. Ordering Physician: Majo Arcos Referring Physician: Lacy Hummel M.D. Performed By: Mirlande Martinez RDCS
--- NOTE | 2024-09-08 10:57 | STRESSREP_ITS ---
Stress Test Report Date: 09/08/2024 Procedure: Pharmacologic stress nuclear imaging study Indications: Presyncope Consent: Per the patient Procedure: The patient underwent pharmacologic (Regadenoson 0.4mg ) evaluation with a peak heart rate of 97 beats per minute (70%predicted maximal heart rate) and a peak blood pressure of 120/70 mmHg. The baseline ECG demonstrated sinus rhythm. The peak pharmacologic ECG demonstrated no ischemic changes. There were no cardiac dysrhythmias pretest, during pharmacologic infusion, or recovery. There was no complaint of chest discomfort during pharmacologic infusion or recovery. The patient was injected with 11.7 millicuries of technetium 99m Cardiolite and subsequently rest SPECT Cardiolite nuclear imaging was obtained in the horizontal long, vertical long, and short axis views. The patient underwent pharmacologic (Regadenoson) evaluation. The patient was injected with 32.9 millicuries of technetium 99m Cardiolite and subsequently stress SPECT Cardiolite nuclear imaging was obtained in the horizontal long, vertical long, and short axis views. A gated Cardiolite study at peak stress was obtained. The examination was stopped secondary to completion of protocol. Rest and stress SPECT Cardiolite nuclear imaging status post realignment, normalization, and attenuation correction demonstrate no fixed or reversible perfusion defects. There is end systolic thickening and brightening. The gated Cardiolite study demonstrates myocardial thickening and inward wall motion. The reported LVEF is 79%. Impression: 1. Pharmacologic (Regadenoson) evaluation 2. Peak pharmacologic ECG with no ischemic changes. 3. There were no cardiac dysrhythmias pretest, during pharmacologic infusion, o r recovery. 5. Rest and stress SPECT Cardiolite nuclear imaging demonstrate relative uniform tracer uptake and myocardial perfusion appearing within normal limits. 6. The gated Cardiolite study reports an LVEF of 79%. This note was generated with [employer] software. It may contain incorrect words, spelling, and punctuation that were not noted in checking the note before signing.
== END | disposition home or self-care (01) ==
PROVIDERS: PCP Internal Medicine; Referring Provider Internal Medicine Cardiovascular Disease; Visit Provider Internal Medicine Cardiovascular Disease
DX: R06.02 Shortness of breath (principal); R55 Syncope and collapse; I47.10 Supraventricular tachycardia, unspecified
CPT/HCPCS: 78452; 93017; 93306; A9500; A4216; J2785

== ENCOUNTER 2025-05-22 16:55 | Emergency (ER) | payer MEDICARE, OTHER, SELFPAY ==
[2025-05-22] VITALS (7 sets, daily range): BP systolic 88–159; BP diastolic 49–81; PULSE 68–98; RESP 15–19; TEMP 36.8; O2SAT 94–100; BMI 21.7
--- NOTE | 2025-05-22 17:45 | EX.ED.DYSGE1 ---
HPI History of Present Illness Chief Complaint: General Illness [facility] Medical History (Reviewed 04/20/25 @ 16:13 by Rekha Rojas NETWORK INTELLIGENCE ANALYST, NETWORK INTELLIGENCE ANALYST-C) Aortic valve insufficiency Abnormality of gait Osteopenia Elevated LDL cholesterol level Vitamin D deficiency Trochanteric bursitis of right hip SI (sacroiliac) joint inflammation Former smoker Abnormal electro-oculogram GERD (gastroesophageal reflux disease) Type 2 diabetes mellitus Preop cardiovascular exam Multiple sclerosis DJD (degenerative joint disease) of cervical spine Expressive aphasia Home Medications ?Medication ?Instructions ?Recorded ?Last Taken ?Type conjugated estrogens 0.625 mg/gram 0.3125 mg vaginal DAILY Estrogen 01/24/21 Unknown History vaginal cream lactase 9,000 unit tablet (Lactase 9,000 unit PO ONCE PRN lactose 01/24/21 Unknown History Fast Acting) intolerance metformin 500 mg tablet 500 mg PO DAILY Diabetes 01/24/21 Unknown History cyanocobalamin (vitamin B-12) 1,000 mcg IM QMONTH #0 mL 02/15/21 Unknown Rx 1,000 mcg/mL injection solution alendronate 70 mg tablet 70 mg PO QWEEK 08/06/24 Unknown History cholecalciferol (vitamin D3) 125 5,000 unit PO QWEEK Supplement 08/13/24 Unknown History mcg (5,000 unit) capsule meloxicam 15 mg tablet 7.5 mg PO ONCE Arthritis pain 08/13/24 Unknown History metoprolol succinate 25 mg 12.5 mg PO QDAY 08/31/24 Unknown History tablet,extended release 24 hr apixaban 2.5 mg tablet (Eliquis) 2.5 mg PO BID 04/20/25 Unknown History Allergy/AdvReac Type Severity Reaction Status Date / Time Penicillins Allergy Severe Rash Verified 05/22/25 16:57 amoxicillin Allergy Rash Verified 05/22/25 16:57 clindamycin AdvReac Severe Diarrhea Verified 05/22/25 16:57 prochlorperazine (From AdvReac Other Verified 05/22/25 16:57 Compazine) triazolam (From Halcion) AdvReac Other Verified 05/22/25 16:58 Family History Father Colon cancer Mother Thyroid disorder Osteoporosis Surgical History History of right hip replacement History of left hip replacement History of tonsillectomy History of bunionectomy History of left inguinal hernia repair History of tubal ligation Social History household members: spouse Smoking Status: Former smoker quit date: 09/30/92 Electronic Cigarette Use: not used alcohol intake: current details: Glass of wine daily. substance use type: does not use caffeine: Yes EXAM Physical Exam Const Vital Signs: 05/22/25 16:56 05/22/25 17:08 05/22/25 17:11 Temperature 98.2 F Temperature Source Oral Pulse Rate 98 84 Respiratory Rate 18 19 H Respiratory Effort Normal Non-Labored Blood Pressure 88/49 L 99/55 L Blood Pressure Mean 62 69 Pulse Ox 99 98 Oxygen Delivery Method Room Air Room Air 05/22/25 18:02 05/22/25 19:19 05/22/25 20:04 Temperature Temperature Source Pulse Rate 90 68 76 Respiratory Rate 18 17 18 Respiratory Effort Blood Pressure 104/73 128/58 H 159/81 H Blood Pressure Mean 83 81 107 Pulse Ox 96 100 94 Oxygen Delivery Method Room Air Room Air 05/22/25 21:00 05/22/25 21:37 Temperature 98.2 F Temperature Source Pulse Rate 73 73 Respiratory Rate 15 15 Respiratory Effort Blood Pressure 159/81 H Blood Pressure Mean 107 Pulse Ox 97 97 Oxygen Delivery Method Room Air MDM MDM MDM Narrative Medical decision making narrative: HISTORY OF PRESENT ILLNESS: Chief complaint: Weakness 84-year-old female history of SVT, postural dizziness with syncope, type 2 diabetes, vitamin B12 deficiency, GERD, multiple sclerosis presents with diffuse weakness. Notes when she woke up this morning she became unusually fatigued, diaphoretic while trying to put on her pants. Denies syncope. Denies headache or chest pain. Denies recent vomiting but does note some loose stools last couple days. No she has not eaten today which she thinks is contributed to her overall sense of malaise and diffuse weakness. Denies focal weakness. Denies slurred speech, loss of vision, facial drooping, loss of movement or sensation in the arms or legs. Denies abdominal pain. Denies chest pain. Denies shortness of breath. Denies leg swelling. Patient notes she has not eaten today. REVIEW OF SYSTEMS: Pertinent positives: Diffuse weakness, malaise, diaphoresis Pertinent negatives: As per HPI PHYSICAL EXAM: Nursing triage notes reviewed, Vital signs reviewed Constitutional: please see [facility] HENT: MMM Eyes: Pupils equal round and reactive to light, Extraocular muscles intact Neck: No stridor, no JVD, full neck ROM Lungs: Clear to auscultation, No wheezing or rales. No increased work of breathing, no conversational dyspnea, no accessory muscle use, no nasal flaring. No respiratory distress noted Heart: Regular rate and rhythm, No murmurs, No rubs and No gallops, 2+ distal pulses (radial, femoral, posterior tibial) in all extremities Abdomen: Soft, there is no tenderness, rigidity, rebound or guarding, no obvious peritoneal signs, no palpable pulsatile abdominal masses, no auscultated abdominal bruit : No CVAT Extremities: No edema Neuro: No new focal neurological deficits, cranial nerves II through XII intact, 5/5 strength in all present extremities. Intact sensation to light touch in all present extremities, 2+ reflexes bilateral patella tendons. Skin: No rash or lesions noted MEDICAL DECISION MAKING: Chief Complaint: please see [facility] External records reviewed: Reviewed prior cardiology visit from March 2025. Prior ejection fraction 65% Factors affecting care: As per [facility] Social determinants of health: Elderly History obtained from others: Consults: none [facility] Narrative: The patient was initially hypotensive with a blood pressure of 88/49 otherwise afebrile saturating at 99 % room air. Without intervention repeat blood pressure was 99/55. Initial exam grossly unremarkable. No focal cardiopulmonary abnormalities. No focal neurologic deficits. Heart and lung exam was unremarkable. Abdomen soft and nontender. No stigmata of CHF on initial exam. I considered the following differential diagnosis: Dehydration, electrolyte disturbance, anemia, ACS, arrhythmia, pneumonia, UTI I obtained a broad lab and imaging workup to further determine if the patient was suffering from a life-threatening etiology. [Initially assessed the patient 1 L normal saline. ALL IMAGES (IF OBTAINED) HAVE BEEN PERSONALLY REVIEWED AND INTERPRETED BY MYSELF. EKG with normal sinus rhythm rate 83, left ax deviation, normal intervals, no STEMI CBC with no leukocytosis to suggest systemic inflammation, anemia slightly worse from baseline, no thrombocytopenia BMP without significant electrolyte disturbances, no acute kidney injury, noted elevated BUN in the setting of normal renal function I suspect this is a lab error LFTs show no evidence of hepatobiliary pathology. High-sensitivity troponin is negative, no evidence of myocardial ischemia Urinalysis shows no evidence of urinary inflammation suggestive of UTI I have personally reviewed the patient's chest x-ray. Chest x-ray is unremarkable for pulmonary edema, pneumothorax, pneumonia or focal cardiopulmonary abnormality. The synthesis of the patient's history, physical exam, labs images suggest no acute life or limb during etiology. On reassessment patient's blood pressure improved to 159/81. She felt symptomatically better. Nausea had resolved. She did walk to the bathroom with a non-ataxic gait. Suspect patient was dehydrated secondary to loose stools and poor p.o. intake. Encourage increased p.o. intake prescribe Zofran. Strict return precautions were discussed. Encouraged outpatient follow-up for anemia and repeat metabolic panel to assure ?BUN is a lab error. The patient and/or family, caregivers express understanding. The patient and/or family, caregivers agrees with the plan. Shared decision making: I will have a discussion with the patient and or visitors regarding risk/benefits of further testing or admission. They will be made aware of of the risk/benefits inherent in this decision they will be given the opportunity to voice understanding. Total critical care time today provided was at least 0 minutes. This excludes separately billable procedures. Critical care time (if documented) is secondary to the patient having high probability of clinically significant/life threatening deterioration in the patient's condition which required my urgent intervention. Impression: 1. Diffuse weakness 2. Dehydration 3. Anemia Dispo: Discharge home This note was generated with [employer] dictation software. It may contain incorrect words, spelling, and punctuation that were not noted in review of the chart prior to signing. Lab Data Labs: Laboratory Results - last 24 hr 05/22/25 05/22/25 18:35 19:20 WBC 9.4 RBC 2.87 L Hgb 8.3 L Hct 25.4 L MCV 88.5 MCH 28.9 MCHC 32.7 RDW Std Deviation 43.0 RDW Coeff of Danny 13.2 Plt Count 256 MPV 9.3 Immature Gran % (Auto) 0.500 Neut % (Auto) 75.3 H Lymph % (Auto) 17.6 L [place] % (Auto) 5.9 Eos % (Auto) 0.5 Baso % (Auto) 0.2 Absolute Neuts (auto) 7.1 Absolute Lymphs (auto) 1.66 Nucleated RBC % 0 Sodium 138 Potassium 4.3 Chloride 101 Carbon Dioxide 23.6 Anion Gap 13 BUN 81 H Creatinine 0.92 Estim Creat Clear Calc 34.96 L Est GFR (MDRD) Non-Af 62 BUN/Creatinine Ratio 88.2 H Glucose 127 H Calcium 9.1 Total Bilirubin 0.27 AST 20 ALT 12 Alkaline Phosphatase 54 Troponin T High Sens 19 H Total Protein 6.0 Albumin 3.7 Globulin 2.3 Albumin/Globulin Ratio 1.6 Urine Color Straw Urine Clarity Clear Urine pH 5.0 Ur Specific [place] 1.010 Urine Protein Negative Urine Glucose (UA) Normal Urine Ketones Negative Urine Occult Blood Negative Urine Nitrite Negative Urine Bilirubin Negative Urine Urobilinogen Normal Ur Leukocyte Esterase Negative Urine RBC 0-5 SEEN Urine WBC 0-5 SEEN Ur Squamous Epith Cells 0-5 SEEN Urine Bacteria 0 SEEN Urine Mucus 0 SEEN Radiography Diagnostic Testing: Clinical Impression(s) from Imaging Studies Chest X-Ray 05/22/25 18:26 IMPRESSION: No acute process detected radiographically Reading [facility] Discharge Plan Triage Chief Complaint: General Illness ED Provider: Uvaldo Shipley Dx/Rx/DC Orders Clinical Impression: Acute dehydration Instructions: ED Dehydration (Adult) Prescriptions: No Action metformin 500 mg tablet 500 mg PO DAILY Lactase Fast Acting 9,000 unit tablet 9,000 unit PO ONCE PRN (Reason: lactose intolerance) Rx Instructions: administer with meals and/or snacks conjugated estrogens 0.625 mg/gram cream 0.3125 mg vaginal DAILY Rx Instructions: off 5 days; repeat cycle alendronate 70 mg tablet 70 mg PO QWEEK Eliquis 2.5 mg tablet 2.5 mg PO BID cholecalciferol (vitamin D3) 125 mcg (5,000 unit) capsule 5,000 unit PO QWEEK Patient Comments: SUPPLEMENT meloxicam 15 mg tablet 7.5 mg PO ONCE Patient Comments: WITH MEALS. PAIN INFLAMMATION cyanocobalamin (vitamin B-12) 1,000 mcg/mL Solution 1,000 mcg IM QMONTH Qty: 0 0RF metoprolol succinate 25 mg tablet extended release 24 hr 12.5 mg PO QDAY Primary Care Provider: Lacy Hummel Referrals: Lacy Hummel MD [Primary Care Provider] - Activity Restrictions/Additional Instructions: Thank you for trusting us with your care today! Your labs images are reassuring. Please drink more oral fluids I recommend Gatorade, Pedialyte and Body Armor. Please take Tylenol (2 pills, 650 mg), ibuprofen (2 pills, 400 mg) every 6 hours as needed for pain and fever control. Please return to the emergency department if your symptoms change or worsen. Please follow with your primary care physician for further outpatient evaluation and management. Print Language: Niuean Disposition Disposition: Home, Self Care Discharge Date/Time: 05/22/25 21:37
--- OUTSIDE RECORDS SUMMARY | 2025-05-22 18:12 | XMS RPT_ITS | CCD ---
Author Organization [facility] Care Team Providers Care Practical Nurse Clinical Coordinator Name Role Phone Bg Chavarria MD Primary Care Provider Bg Chavarria MD Primary Care Provider Reji Gibbons Unavailable Unavailable Sincere Hopkins MD Unavailable Sincere Hopkins MD Unavailable Bg Chavarria MD Primary Care Provider BG CHAVARRIA Primary Care Unavailable SINCERE HOPKINS Referring Unavail able LORENA JACOBSEN Referring Unavailable BG CHAVARRIA Primary Care Unavailable BG CHAVARRIA Primary Care Unavailable Hernandez REFRIGERATION BRAZER/SOLDERER.DRAW HAND, Luis Manuel Unavailable Tigist 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, Linda Unavailable [employer] 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, Linda Unavailable [employer] 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, Linda Unavailable Hernandez REFRIGERATION BRAZER/SOLDERER.DRAW HAND, Luis Manuel Unavailable Hernandez REFRIGERATION BRAZER/SOLDERER.DRAW HAND, Luis Manuel Unavailable Dr. Bg Chavarria MD Primary Care Provider Dr. Bg Chavarria MD Referring Provider Rekha Snowden Attending Provider Bg Chavarria Primary Care Unavailable Isrrael, Majo Referring Unavailable Isrrael, Majo Attending Unavailable Bg Chavarria Referring Unavailable Rekha Rojas NP Attending Unavailable Bg Chavarria Primary Care Unavailable Isrrael, Majo Attending Unavailable Talampas, Bg D Primary Care Unavailable Talampas, Bg D Referring Unavailable Talampas, Bg D Primary Care Unavailable Isrrael, Majo Attending Unavailable Talampas, Bg D Referring Unavailable Talampas, Bg D Primary Care Unavailable Isrrael, Majo Referring Unavailable Isrrael, Majo Attending Unavailable Isrrael, Majo Consulting Unavailable Talampas, Bg D Primary Care Unavailable Provider, Ed Physician Attending Unavailab le TALAMPAS, BG D Primary Care Unavailable TALAMPAS, BG D Attending Unavailable TALAMPAS, BG D Primary Care Unavailable LORENA JACOBSEN Attending Unavailable SELF Referring Unavailable TALAMPAS, BG D Primary Care Unavailable TALAMPAS, BG D Attending Unavailable TALAMPAS, BG D Primary Care Unavailable LUIS MANUEL HERNANDEZ Attending Unavailable HERNANDEZ, LUIS MANUEL Referring Unavailable TALAMPAS, BG D Primary Care Unavailable HERNANDEZ, LUIS MANUEL Referring Unavailable SINCERE HOPKINS Attending Unavail able TALAMPAS, BG D Primary Care Unavailable TALAMPAS, BG D Primary Care Unavailable TALAMPAS, BG D Referring Unavailable LINDA SILVA Attending Unavailable SELF Referring Unavailable TALAMPAS, BG D Primary Care Unavailable TALAMPAS, BG D Primary Care Unavailable HERNANDEZLUIS MANUEL Attending Unavailable TALAMPAS, BG D Primary Care Unavailable TALAMPAS, BG D Attending Unavailable TALAMPAS, BG D Primary Care Unavailable TALAMPAS, BG D Primary Care Unavailable MADELEINE JUNG Attending Unavailable TALAMPAS, BG D Referring Unavailable TALAMPAS, BG D Primary Care Unavailable TALAMPAS, BG D Referring Unavailable TALAMPAS, BG D Primary Care Unavailable TALAMPAS, BG D Primary Care Unavailable BRITTNEYTO, RUSSELL Admitting Unavailable MATTO, RUSSELL Attending Unavailable TALAMPAS, BG D Primary Care Unavailable TALAMPAS, BG D Referring Unavailable MATRUSSELL MILIAN Attending Unavailable JOSUE FAGAN Referring Unavailable TALAMPAS, BG D Primary Care Unavailable OXANA DARLING Attending Unavailable TALAMPAS, BG D Primary Care Unavailable Allergies Allergy Classification Reported Allergen(s) Allergy Type Date of Onset Reaction(s) Facility Lincosamides (antibiotic) (1 source) Clindamycin Drug Allergy 07-12-20 06 Contraindicati on-Medical Surgical [facility] Work Phone: Penicillins (antibiotic) (2 sources) Amoxicillin Drug Allergy 07-11-20 Rash, Intolerance [facility] Prochlorperazine (2 sources) Prochlorperazine Drug Allergy 07-11-20 Intolerance, Dystonia [facility] (20 sources) Amoxicillin; Translations: [AMOXICILLIN] Drug Allergy 06-24-20 15 Rash [facility] Work Phone: (20 sources) Clindamycin; Translations: [CLINDAMYCIN] Drug Allergy 07-12-20 06 Contraindicati on-Medical Surgical [facility] Work Phone: (20 sources) Penicillins; Translations: [PENICILLINS] Drug Allergy 07-11-20 Rash, Intolerance [facility] Work Phone: (20 sources) Prochlorperazine; Translations: [PROCHLORPERAZINE EDISYLATE] Drug Allergy 07-11-20 Intolerance [facility] Work Phone: (20 sources) Penicillins Drug Allergy 07-11-20 Rash, Intolerance [facility] Work Phone: (20 sources) Prochlorperazine; Translations: [PROCHLORPERAZINE] Drug Allergy 06-30-20 Dystonia [facility] (10 sources) Penicillins Drug Allergy 07-11-20 Rash, Intolerance [facility] (1 source) Penicillins Allergy to substance 04-20-20 Rash [facility] (1 source) Amoxicillin Drug Allergy 04-20-20 [facility] (1 source) Clindamycin Drug Allergy 04-20-20 [facility] (1 source) Penicillins Drug allergy (disorder) 04-20-20 [facility] (1 source) Prochlorperazine Drug Allergy 04-20-20 [facility] Medications Current Medications Medication Drug Class(es) Dates Sig (Normalized) Sig (Original) alendronic acid 70 mg oral tablet (20 sources) Bisphosphonate Start: 01-22-2022 End: 11-20-2024 take 1 tablet by mouth every week in the evening alendronate (FOSAMAX) 70 mg tablet Take 1 tablet by mouth one time a week. Take with a full glass of water, on an empty stomach; do NOT lie down for 30minutes. 12 tablet 3 04/20/2025 3:25 PM EDT 11/20/2024 Active Comment on above: Take 1 tablet by vivienne one time a week. Take with a full glass of water, on an empty stomach; do NOT lie down for 30minutes. apixaban 2.5 mg oral tablet (12 sources) Factor Xa Inhibitor Start: 02-16-2025 take 1 tablet by mouth twice daily in the evening apixaban (ELIQUIS) 2.5 mg tab(s) Indications: Atrial flutter, unspecified type (HCC) Take 1 tablet by mouth two times a day. 180 tablet 1 04/20/2025 3:25 PM EDT 02/16/2025 Active Start: 10-27-2024 End: 11-26-2024 take 1 tablet by mouth twice daily apixaban (ELIQUIS) 2.5 mg tab(s) Indications: Typical atrial flutter (HCC) , Stroke risk Take 1 tablet by mouth two times a day. 60 tablet 10/27/2024 11/26/2024 Active End: 02-15-2025 take 2.5 mg by mouth twice daily apixaban (ELIQUIS) 5 mg tab(s) Take 2.5 mg by mouth two times a day. 02/15/2025 Discontinued (Changing Therapy/Dosage Form) cholecalciferol 0.125 mg oral capsule (20 sources) Vitamin D Start: 08-13-2024 take 1 capsule by mouth every week Cholecalciferol (Vitamin D3) 125 mcg (5,000 unit) capsule Active 5000 U PO EVERY WEEK August 13, 2024 11:29am Supplement Start: 03-15-2023 Cholecalcifero l, Vitamin D3, 125 mcg (5,000 unit) cap Indications: Vitamin D deficiency Hold for 1 month then take once weekly 03/15/2023 Active Start: 06-24-2015 End: 08-13-2024 take 1 capsule by mouth once daily Cholecalciferol, Vitamin D3, 125 mcg (5,000 unit) cap Take 1 capsule by mouth once daily. 06/03/2020 03/15/2023 Discontinued Comment on above: Take 1 capsule by mo [facility] once daily. Hold for 1 month the n take once weekly doxycycline hyclate 100 mg oral tablet (1 source) Tetracycline-class Drug Start: 06-28-2023 End: 07-05-2023 take 1 tablet by mouth twice daily doxycycline (VIBRA-TABS) 100 mg tablet Take 1 tablet by mouth two times a day for 7 days. 14 tablet 0 06/28/2023 07/05/2023 Active Comment on above: Take 1 tablet by vivienne two times a day for 7 days. estrogens, conjugated (residential) 0.625 mg/ml vaginal cream (20 sources) Estrogen Start: 01-24-2021 Conjugated Estrogens 0.625 mg/gram cream Active 0.3125 mg VAGINAL DAILY January 24, 2021 12:00am Estrogen off 5 days; repeat cycle Start: 09-03-2013 End: 03-19-2025 conjugated estrogens (PREMAR IN) vaginal cream Use 0.5 g vaginally as needed. for 3 weeks then off for 1 week 09/03/2013 03/19/2025 Discontinued Comment on above: Use 0.5 g vaginally as needed. for 3 weeks then off for 1 week lactase 9000 unt oral tablet (20 sources) Start: 01-24-2021 take 1 tablet by mouth once at mealtime Lactase (Lactase Fast Acting) 9,000 unit tablet Active 9000 U PO ONCE as needed for lactose intolerance January 24, 2021 12:00am administer with meals and/or snacks Start: 04-29-2019 Lactase (LACTA ID FAST ACT) 9,000 unit chew Uses as needed 04/29/2019 Active Comment on above: Uses as needed Lactobacillus acidophilus (20 sources) Lactobacillus ac idophilus (PROBIOTIC ORAL) Take by mouth. Active Lactobacillus ac idophilus (PROBIOTIC ORAL) Take by mouth. 0 Suspended Lactobacillus ac idophilus (PROBIOTIC ORAL) Take by mouth. 0 Active Comment on above: Take by mouth. meloxicam 7.5 mg oral tablet (20 sources) Nonsteroidal Anti-inflammatory Drug Start: 09-13-2024 End: 11-20-2024 take 1 tablet by mouth once daily in the evening meloxicam (MOBIC) 7.5 mg tablet Take 1 tablet by mouth once daily. 90 tablet 1 03/17/2025 2:30 PM EDT 11/20/2024 Active Start: 08-13-2024 take 7.5 mg by mouth once Han xicam 15 mg tablet Active 7.5 mg PO ONCE August 13, 2024 11:29am Arthritis pain Start: 09-18-2023 End: 09-11-2024 take 1 tablet by mouth once daily meloxicam (MOBIC) 7.5 mg tablet Take 1 tablet by mouth once daily. 90 tablet 1 03/13/2024 09/11/2024 Discontinued Start: 06-28-2023 End: 09-16-2023 take 1 tablet by mouth once daily meloxicam (MOBIC) 7.5 mg tablet Take 1 tablet by mouth once daily. 30 tablet 06/28/2023 09/16/2023 Discontinued Start: 10-19-2020 End: 06-28-2023 take 1 tablet by mouth twice daily meloxicam (MOBIC) 7.5 mg tablet Indications: Hip pain, left , Cervical neck pain with evidence of disc disease Take 1 tablet by mouth twice daily. 180 tablet 3 12/11/2021 12/17/2022 Discontinued Start: 06-24-2015 End: 08-13-2024 Meloxicam 15 MG tablet Disco ntinued 7.5 {tbl} PO TWICE A DAY June 24, 2015 12:00am August 13, 2024 11:30am Arthritis pain Comment on above: Take 1 tablet by vivienne th twice daily. Take 1 tablet by vivienne th once daily. 24 hr metFORMIN hydrochloride 500 mg extended release oral tablet (20 sources) Biguanide Start: End: take 1 tablet by mouth once daily at breakfast metFORMIN ER (GLUCOPHAGE XR) 500 mg 24 hr tablet Take 1 tablet by mouth daily with breakfast. 90 tablet 3 03/17/2025 2:30 PM EDT 11/20/2024 Active Start: 03-20-2021 End: 03-13-2023 take 1 tablet by mouth once daily at breakfast metFORMIN ER (GLUCOPHAGE XR) 500 mg 24 hr tablet Take 1 tablet by mouth daily with breakfast. 90 tablet 3 02/27/2022 03/13/2023 Discontinued Start: 01-24-2021 take 1 tablet by vivienne th once daily Metformin 500 mg tablet Active 500 mg PO DAILY January 24, 2021 12:00am Diabetes Comment on above: Take 1 tablet by vivienne th daily with breakfast. 24 hr metoprolol succinate 25 mg extended release oral tablet (20 sources) beta-Adrenergic Hortensia Start: 08-31-2024 End: 03-15-2025 take 0.5 tablet by mouth once daily in the evening metoprolol succinate ER (TOPROL XL) 25 mg 24 hr tablet Indications: Paroxysmal SVT (supraventricular tachycardia) (HCC) , Typical atrial flutter (HCC) Take 0.5 tablets by mouth once daily. 45 tablet 3 04/20/2025 3:25 PM EDT 03/15/2025 Active Start: 08-06-2024 End: 08-31-2024 take 1 tablet by mouth once daily Metoprolol Succinate 25 mg tablet extended release 24 hr Discontinued 25 mg PO daily August 06, 2024 1:00am August 31, 2024 1:56pm Start: 07-28-2024 End: 07-28-2024 take 1 tablet by mouth once daily metoprolol succinate ER (TOPROL XL) 25 mg 24 hr tablet Indications: Paroxysmal SVT (supraventricular tachycardia) (HCC) Take 1 tablet by mouth once daily. 90 tablet 3 07/28/2024 Active mupirocin 0.02 mg/mg topical ointment (2 sources) RNA Synthetase Inhibitor Antibacterial Start: 06-21-2023 End: 07-11-2023 mupirocin (BACTROBAN) 2 % ointment Apply 0.5 inch with cotton swab (Q-tip) to each nostril in the morning and evening for 5 days prior to and including day of surgery. 22 g 0 06/21/2023 07/11/2023 Suspended Comment on above: Apply 0.5 inch with cotton swab (Q-tip) to each nostril in the morning and evening for 5 days prior to and including day of surgery. naloxone hydrochloride 40 mg/ml nasal spray (10 sources) Opioid Antagonist Start: 06-28-2023 End: 11-19-2023 naloxone 4 mg/actuation nasal spray (NARCAN) Use 1 spray in one nostril as needed for overdose. May repeat every 2 to 3 min in alternating nostrils until medical assistance is available 1 Each 0 06/28/2023 11/19/2023 Discontinued Comment on above: Use 1 spray in one n ostril as needed for overdose. May repeat every 2 to 3 min in alternating nostrils until medical assistance is available nirmatrelvir tablet 150 mg and ritonavir tablet 100 mg in a dose pack (PAXLOVID) (1 source) Start: 03-15-2022 End: 03-20-2022 nirmatrelvir tablet 150 mg and ritonavir tablet 100 mg in a dose pack (PAXLOVID) Indications: COVID-19 Administer TWO pink nirmatrelvir 150 mg tablets and ONE white ritonavir 100 mg tablet for a total of three tablets twice daily. 30 tablet 0 03/15/2022 03/20/2022 Active Comment on above: Administer TWO pink nirmatrelvir 150 mg tablets and ONE white ritonavir 100 mg tablet for a total of three tablets twice daily. nirmatrelvir tablet 300 mg (150 mg x 2) and ritonavir tablet 100 mg in a dose pack (PAXLOVID) (1 source) Start: 01-30-2024 End: 02-04-2024 nirmatrelvir tablet 300 mg (150 mg x 2) and ritonavir tablet 100 mg in a dose pack (PAXLOVID) Administer TWO pink nirmatrelvir 150 mg tablets and ONE white ritonavir 100 mg tablet for a total of three tablets twice daily. 30 tablet 0 01/30/2024 02/04/2024 Active oxyCODONE hydrochloride 5 mg oral tablet (1 source) Opioid Agonist Start: 06-28-2023 End: 07-05-2023 take 1 tablet by mouth every four hours as needed oxyCODONE IR (ROXICODONE) 5 mg immediate release tablet Indications: Status post right hip replacement Take 1-2 tablets by mouth every 4 hours as needed for pain for up to 7 days. 45 tablet 0 06/28/2023 07/05/2023 Active Comment on above: Take 1-2 tablets by mouth every 4 hours as needed for pain for up to 7 days. traMADol hydrochloride 50 mg oral tablet (12 sources) Opioid Agonist Start: 06-11-2023 End: 06-16-2023 take 1 tablet by mouth every eight hours as needed for pain traMADol (ULTRAM) 50 mg tablet Indications: pain Take 1 tablet by mouth every 8 hours as needed for pain for up to 5 days. 12 tablet 0 06/11/2023 06/16/2023 Active Start: 05-29-2023 End: 06-05-2023 take 1 tablet by mouth every eight hours as needed for pain traMADol (ULTRAM) 50 mg tablet Indications: pain Take 1 tablet by mouth every 8 hours as needed for pain for up to 7 days. 21 tablet 0 05/29/2023 06/05/2023 Start: 05-16-2023 End: 05-23-2023 take 1 tablet by mouth every twelve hours as needed for pain traMADol (ULTRAM) 50 mg tablet Indications: Osteonecrosis of right hip (HCC) Take 1 tablet by mouth every 12 hours as needed for pain for up to 7 days. 14 tablet 0 05/16/2023 05/23/2023 Active Start: 05-03-2023 End: 05-16-2023 take 0.5 tablet by mouth twice daily as needed for pain traMADol (ULTRAM) 50 mg tablet Indications: Trochanteric bursitis of right hip , Pain of right hip , Fall, initial encounter Take 0.5 tablets by mouth twice daily as needed for pain for up to 7 days. Do not start before May 10, 2023. 7 tablet 0 05/10/2023 05/16/2023 Discontinued Start: 02-15-2021 End: 08-06-2024 take 1 tablet by mouth every six hours as needed for pain Tramadol 50 mg Tablet Discontinued 50 mg PO EVERY 6 HOURS NEEDED as needed for Pain Score 6-10 42 7 0 February 15, 2021 12:00am August 06, 2024 5:53pm Comment on above: Take 0.5 tablets by mouth twice daily as needed for pain for up to 7 days. Take 0.5 tablets by mouth twice daily as needed for pain for up to 7 days. Do not start before May 10, 2023. Take 1 tablet by vivienne th every 12 hours as needed for pain for up to 7 days. Take 1 tablet by vivienne th every 8 hours as needed for pain for up to 7 days. Take 1 tablet by vivienne th every 8 hours as needed for pain for up to 5 days. vitamin b12 1 mg/ml injectable solution (20 sources) Vitamin B12 Start: 09-08-2024 End: 09-08-2025 cyanocobalamin 1,000 mcg/mL USE ONE ML INTO THE MUSCLE ONCE MONTHLY 3 mL 3 02/26/2025 3:36 PM EDT 09/08/2024 09/08/2025 Active Start: 02-15-2021 End: 06-08-2024 cyanocobalamin 1,000 mcg/mL USE ONE ML INTO THE MUSCLE ONCE MONTHLY 3 mL 3 05/16/2023 Active Start: 01-24-2021 End: 02-15-2021 inject 100 ug by intramuscular injection every month Cyanocobalamin (Vitamin B-12) 1,000 mcg/mL solution Discontinued 100 ug IM EVERY MONTH January 24, 2021 12:00am February 15, 2021 7:54pm Supplement Comment on above: USE ONE ML INTO THE MUSCLE ONCE MONTHLY Completed/Discontinued Medications Medication Drug Class(es) Dates Sig (Normalized) Sig (Original) acetaminophen 500 mg oral tablet (20 sources) Start: 06-28-2023 End: 11-19-2023 take 2 tablets by mouth every eight hours as needed acetaminophen (TYLENOL) 500 mg tablet Take 2 tablets by mouth every 8 hours as needed for pain. 60 tablet 06/28/2023 11/19/2023 Discontinued Start: 02-15-2021 End: 03-27-2021 take 2 tablets by mouth every six hours as needed for pain Acetaminophen 500 mg Tablet Discontinued 1000 mg PO EVERY 6 HOURS NEEDED as needed for Pain Score 1-5 0 0 February 15, 2021 12:00am March 27, 2021 11:27am Start: 02-03-2021 End: 02-15-2021 take 1 tablet by mouth every eight hours as needed for pain Acetaminophen 500 mg Tablet Discontinued 500 mg PO EVERY 8 HOURS as needed for Pain February 03, 2021 12:00am February 15, 2021 7:54pm Start: 01-24-2021 End: 02-15-2021 take 1 tablet by mouth every eight hours as needed for pain Acetaminophen (Tylenol Arthritis Pain) 650 mg tablet extended release Discontinued 650 mg PO Q8H as needed for pain January 24, 2021 12:00am February 15, 2021 7:53pm take 2 tablets by mo ut twice daily acetaminophen (TYLENOL) 500 mg tablet Take 1,000 mg by mouth twice daily. 0 Active Comment on above: Take 1,000 mg by vivienne twice daily. Take 2 tablets by mo ut every 8 hours as needed for pain. acetaminophen 325 mg / HYDROcodone bitartrate 5 mg oral tablet (1 source) Opioid Agonist Start: 09-01-20 End: 08-06-20 Hydrocodone-Acetamin ophen 5-325 mg tablet Discontinued 1 {tbl} PO Q8H as needed for pain 10 3 0 September 01, 2021 August 06, 2024 5:53pm Renal colic Unspecified renal colic aspirin 81 mg delayed release oral tablet (12 sources) Platelet Aggregation Inhibitor, Nonsteroidal Anti-inflammatory Drug Start: 06-29-20 End: 11-19-19 take 1 tablet by mouth twice daily aspirin, enteric coated (ASPIRIN, ENTERIC COATED) 81 mg EC tablet Take 1 tablet by mouth two times a day for 28 days. 56 tablet 06/29/2023 11/19/2023 Discontinued Start: 06-25-2015 End: 01-24-2021 take 1 tablet by mouth once daily Aspirin 325 MG tablet Discontinued 325 mg PO DAILY@0800 30 0 June 25, 2015 12:00am January 24, 2021 11:35am Comment on above: Take 1 tablet by vivienne two times a day for 28 days. atorvastatin 80 mg oral tablet (1 source) HMG-CoA Reductase Inhibitor Start: 06-25-20 End: 01-25-20 take 1 tablet by mouth at bedtime Atorvastatin 80 MG tablet Discontinued 80 mg PO AT BEDTIME 30 0 June 25, 2015 12:00am January 24, 2021 11:35am azithromycin 250 mg oral tablet (20 sources) Macrolide Antimicrobial Start: 12-09-19 End: 03-24-20 azithromycin (ZITHROMAX Z-REMI) 250 mg tablet Take as directed on package 6 tablet 0 12/09/2023 03/24/2024 Discontinued Start: 06-22-2021 End: 06-30-2023 azithromycin (ZITHROMAX) 250 mg tablet Indications: Status post total replacement of left hip Take two tablets one hour before dental procedures. 8 tablet 12/04/2022 06/30/2023 Discontinued Comment on above: Take two tablets one hour before dental procedures. Take as directed on package calcium carbonate 500 mg chewable tablet (20 sources) Start: End: take 1 tablet by mouth twice daily at mealtime as needed Calcium Carbonate 200 mg calcium (500 mg) Tablet,Chewable Discontinued 500 mg PO TWICE DAILY WITH MEALS as needed for Indigestion 0 0 February 15, 2021 12:00am April 20, 2025 1:11pm Start: 02-03-2021 End: 02-15-2021 Calcium Carbonate (Tums) 200 mg calcium (500 mg) Tablet,Chewable Discontinued 200 mg PO NEEDED as needed for GERD February 03, 2021 12:00am February 15, 2021 7:55pm calcium carbonat e (TUMS ORAL) Take by mouth as needed. Active calcium carbonat e (TUMS ORAL) Take by mouth as needed. 0 Suspended calcium carbonat e (TUMS ORAL) Take by mouth as needed. 0 Active Comment on above: Take by mouth as nee ded. ciclopirox 7.7 mg/ml topical cream (20 sources) Start: 03-15-20 End: 11-19-19 ciclopirox (LOPROX) 0.77 % cream Apply to affected area twice daily. use for 1 week after lesion resolves 15 g 03/15/2023 11/19/2023 Discontinued Comment on above: Apply to affected ar ea twice daily. use for 1 week after lesion resolves cyclobenzaprine hydrochloride 5 mg oral tablet (11 sources) Muscle Relaxant Start: 02-05-20 End: 04-15-20 take 1 tablet by mouth at bedtime as needed cyclobenzaprine (FLEXERIL) 5 mg tablet Indications: Chronic pain of right hip Take 1 tablet by mouth at bedtime as needed. 30 tablet 02/04/2023 04/15/2023 Discontinued Start: 02-15-2021 End: 03-27-2021 take 1 tablet by mouth three times daily as needed for muscle spasms Cyclobenzaprine 10 mg Tablet Discontinued 10 mg PO 3 TIMES DAILY NEEDED as needed for Spasms 90 30 0 February 15, 2021 12:00am March 27, 2021 11:27am Comment on above: Take 1 tablet by vivienne th at bedtime as needed. docusate sodium 100 mg oral capsule (3 sources) Start: 3 End: 3 take 1 capsule by mouth twice daily docusate sodium (COLACE) 100 mg capsule Take 1 capsule by mouth two times a day. 60 capsule 06/28/2023 07/28/2023 Comment on above: Take 1 capsule by mo [facility] two times a day. 0.4 ml enoxaparin sodium 100 mg/ml prefilled syringe (1 source) Low Molecular Weight Heparin Start: 1 End: 1 Enoxaparin (Lovenox) 40 mg/0.4 mL Syringe Discontinued 40 mg SC DAILY February 03, 2021 12:00am February 15, 2021 7:54pm Blood thinner ferrous sulfate 325 mg oral tablet (2 sources) Start: 3 End: 3 take 1 tablet by mouth once daily ferrous sulfate 325 mg (65 mg iron) tablet Take 1 tablet by mouth once daily for 14 days. 14 tablet 07/09/2023 07/23/2023 Comment on above: Take 1 tablet by [facility] once daily for 14 days. Insulin Syringe-Needle U-100 (BD INSULIN SYRINGE) 1 mL 25 x 1 syrg (20 sources) Start: 3 End: 4 Insulin Syringe-Needle U-100 (BD INSULIN SYRINGE) 1 mL 25 x 1 syrg Indications: Low vitamin B12 level Use for b12 injection monthly 12 Each 3 11/20/2022 12/16/2023 Discontinued Start: 11-20-2022 Insulin Syring e-Needle U-100 (BD INSULIN SYRINGE) 1 mL 25 x 1 syrg Indications: Low vitamin B12 level Use for b12 injection monthly 12 Each 3 11/20/2022 Suspended Start: 11-20-2022 Insulin Syring e-Needle U-100 (BD INSULIN SYRINGE) 1 mL 25 x 1 syrg Indications: Low vitamin B12 level Use for b12 injection monthly 12 Each 3 11/20/2022 Active Start: 01-19-2021 End: 11-19-2022 Insulin Syringe-Needle U-100 (BD INSULIN SYRINGE) 1 mL 25 x 1 syrg Indications: Low vitamin B12 level Use for b12 injection monthly 12 Syringe 3 01/19/2021 11/19/2022 Discontinued Start: 01-19-2021 Insulin Syring e-Needle U-100 (BD INSULIN SYRINGE) 1 mL 25 x 1 syrg Indications: Low vitamin B12 level Use for b12 injection monthly 12 Syringe 3 01/19/2021 Active Comment on above: Use for b12 injectio n monthly lansoprazole (1 source) Proton Pump Inhibitor lansoprazole (PREVACID ORAL) Take by mouth. 0 Active Comment on above: Take by mouth. naloxone 4 mg/actuation nasal spray (NARCAN) (2 sources) Start: End: naloxone 4 mg/actuation nasal spray (NARCAN) Use 1 spray in one nostril as needed for overdose. May repeat every 2 to 3 min in alternating nostrils until medical assistance is available 1 Each 06/28/2023 11/19/2023 Discontinued ondansetron 4 mg oral tablet (1 source) Serotonin-3 Receptor Antagonist Start: End: take 1 tablet by mouth every eight hours as needed for nausea and vomiting Ondansetron Hcl (Zofran) 4 mg tablet Discontinued 4 mg PO Q8H as needed for nausea and vomiting 14 0 September 01, 2021 1:00am August 06, 2024 5:53pm pantoprazole 40 mg delayed release oral tablet (11 sources) Proton Pump Inhibitor Start: End: take 1 tablet by mouth once daily pantoprazole DR (PROTONIX) 40 mg tablet Take 1 tablet by mouth once daily for 14 days. 14 tablet 06/28/2023 11/19/2023 Discontinued Comment on above: Take 1 tablet by vivienne th once daily for 14 days. polyethylene glycol 3350 014844 mg / potassium chloride 2970 mg / sodium bicarbonate 6740 mg / sodium chloride 5860 mg / sodium sulfate 96549 mg powder for oral solution (20 sources) Osmotic Laxative Start: End: peg 3350-Electrolytes (GOLYTELY) 236-22.74-6.74 -5.86 gram suspension Indications: Rectal bleeding Refer to printed prep instructions from your provider. 4000 mL 03/05/2022 02/04/2023 Discontinued Comment on above: Refer to printed pre p instructions from your provider. polysaccharide iron complex 150 mg oral capsule (1 source) Start: End: Polysaccharide Iron Complex (Ferrex 150) 150 mg iron Capsule Discontinued 150 mg PO DAILY WITH MEALS 30 30 0 February 15, 2021 12:00am March 27, 2021 11:28am psyllium husk (METAMUCIL ORAL) (13 sources) End: 022 psyllium husk (METAMUCIL ORAL) Take by mouth. 0 06/28/2022 Discontinued psyllium husk (M ETAMUCIL ORAL) Take by mouth. 0 Active Comment on above: Take by mouth. respiratory syncytial virus RSV, PF, (ABRYSVO) 120 mcg/0.5 mL injection (1 source) Start: 2022 End: 2022 inject 0.5 mL by intramuscular injection once respiratory syncytial virus RSV, PF, (ABRYSVO) 120 mcg/0.5 mL injection Inject 0.5 mL intramuscularly one time only for 1 dose. 1 Each 0 07/15/2023 07/15/2023 Discontinued Comment on above: Inject 0.5 mL intram uscularly one time only for 1 dose. risedronate sodium 35 mg oral tablet (5 sources) Start: 2021 End: 2022 take 1 tablet by mouth every week risedronate (ACTONEL) 35 mg tablet TAKE 1 TABLET BY MOUTH ONE TIME A WEEK. 12 tablet 3 10/24/2021 01/22/2022 Discontinued (Cost of medication) Start: 06-24-2015 End: 08-06-2024 take 1 tablet by mouth every week Risedronate (Atelvia) 35 MG tablet,delayed release (DR/EC) Discontinued 35 mg PO EVERY WEEK June 24, 2015 12:00am August 06, 2024 5:53pm Osteoporosis Comment on above: TAKE 1 TABLET BY VIVIENNE TH ONE TIME A WEEK. sennosides, residential 8.6 mg oral tablet (12 sources) Start: 06-28-2023 End: 11-19-2023 take 1 tablet by mouth twice daily senna (SENOKOT) 8.6 mg tab Take 1 tablet by mouth two times a day. 28 tablet 06/28/2023 11/19/2023 Discontinued Comment on above: Take 1 tablet by vivienne th two times a day. Problems Active Problems Problem Classification Problem Date Documented Da te Episodic/Chronic Acquired foot deformities (2 sources) Hammer toe; Translations: [Other hammer toe(s) (acquired), right foot] Chronic Calculus of urinary tract (1 source) Renal colic; Translations: [Unspecified renal colic] 08-06-2024 Episodic Cardiac dysrhythmias (20 sources) Paroxysmal supraventricular tachycardia; Translations: [Paroxysmal SVT (supraventricular tachycardia) (HCC)] Onset: 4 07-28-2024 Chronic Deficiency and other anemia (1 source) Anemia due to blood loss; Translations: [Iron deficiency anemia secondary to blood loss (chronic)] 07-15-2023 Chronic Diabetes mellitus with complications (1 source) Type 2 diabetes mellitus with other specified complication; Translations: [Type 2 diabetes mellitus with other specified complication, without long-term current use of insulin (HCC)] Onset: 3 Chronic Diabetes mellitus without complication (20 sources) Type 2 diabetes mellitus; Translations: [Type 2 diabetes mellitus without complications] Onset: 1 01-24-2021 Chronic Disorders of lipid metabolism (20 sources) Raised low density lipoprotein cholesterol; Translations: [Pure hypercholesterolemia, unspecified] Onset: 2 Chronic E Codes: Fall (4 sources) Fall; Translations: [Unspecified fall, sequela] Episodic E Codes: Natural/environment (1 source) Bitten or stung by nonvenomous insect and other nonvenomous arthropods, initial encounter; Translations: [Insect bite of right thigh, initial encounter] Onset: 5 Episodic Esophageal disorders (20 sources) Gastroesophageal reflux disease; Translations: [Gastro-esophageal reflux disease without esophagitis] Onset: 1 01-24-2021 Chronic Gastrointestinal hemorrhage (2 sources) Rectal hemorrhage; Translations: [Hemorrhage of anus and rectum] Episodic Heart valve disorders (6 sources) Aortic valve regurgitation; Translations: [Nonrheumatic aortic (valve) insufficiency] Onset: 5 10-20-2024 Chronic Immunizations and screening for infectious disease (7 sources) Patient encounter status; Translations: [Encounter for immunization] Episodic Malaise and fatigue (1 source) Asthenia; Translations: [Other malaise] 08-06-2024 Episodic Multiple sclerosis (20 sources) Multiple sclerosis; Translations: [Multiple sclerosis] Onset: 6 05-31-2016 Chronic Comment on above: She will continue to follow with her other physicians for this diagnosis. Nutritional deficiencies (20 sources) Vitamin D deficiency; Translations: [Vitamin D deficiency, unspecified] Onset: 2 Chronic Nutritional deficiencies (20 sources) Decreased vitamin B12 level; Translations: [Deficiency of other specified B group vitamins] 05-04-2013 Episodic Osteoarthritis (20 sources) Primary coxarthrosis, bilateral; Translations: [Bilateral primary osteoarthritis of hip] Onset: 0 Resolved: 1 06-07-2020 Chronic Osteoporosis (2 sources) Senile osteoporosis; Translations: [Age-related osteoporosis without current pathological fracture] 11-20-2024 Chronic Other acquired deformities (2 sources) Scoliosis of lumbar spine; Translations: [Scoliosis, unspecified] Chronic Other bone disease and musculoskeletal deformities (14 sources) Aseptic necrosis of bone of hip; Translations: [Osteonecrosis, unspecified] Onset: 3 05-16-2023 Chronic Other bone disease and musculoskeletal deformities (2 sources) Bone necrosis; Translations: [Osteonecrosis, unspecified] Onset: 3 07-08-2023 Chronic Other bone disease and musculoskeletal deformities (2 sources) Idiopathic scoliosis of thoracic and lumbar spine; Translations: [Other idiopathic scoliosis, thoracolumbar region] 11-20-2024 Chronic Other bone disease and musculoskeletal deformities (1 source) Other idiopathic scoliosis, thoracolumbar region; Translations: [Other idiopathic scoliosis, thoracolumbar region] Onset: 5 Chronic Other bone disease and musculoskeletal deformities (20 sources) Osteopenia; Translations: [Other specified disorders of bone density and structure, unspecified site] 09-06-2017 Episodic Other circulatory disease (2 sources) Tightness in throat; Translations: [Other specified symptoms and signs involving the circulatory and respiratory systems] 07-06-2024 Episodic Other circulatory disease (2 sources) Personal history of other diseases of the circulatory system; Translations: [S/P catheter ablation of slow pathway] Onset: 5 Episodic Other connective tissue disease (7 sources) History of total hip arthroplasty; Translations: [Presence of left artificial hip joint] Chronic Other connective tissue disease (1 source) Hip joint prosthesis present; Translations: [Presence of right artificial hip joint] 05-21-2023 Chronic Other connective tissue disease (20 sources) History of repair of hip joint; Translations: [Presence of right artificial hip joint] Onset: 3 07-15-2023 Chronic Other connective tissue disease (2 sources) Presence of right artificial hip joint; Translations: [Status post hip replacement, right] Onset: 3 Chronic Other connective tissue disease (1 source) Presence of left artificial hip joint; Translations: [Status post left hip replacement] Onset: 5 Chronic Other connective tissue disease (2 sources) Bursitis of right hip; Translations: [Other bursitis of hip, right hip] Episodic Other connective tissue disease (1 source) Paresis of lower extremity; Translations: [Other symptoms and signs involving the musculoskeletal system] 09-10-2023 Episodic Other connective tissue disease (1 source) Disorder of hip; Translations: [Other symptoms and signs involving the musculoskeletal system] 09-19-2023 Episodic Other gastrointestinal disorders (1 source) Fecal incontinence with incomplete defecation; Translations: [Full incontinence of feces] 11-20-2024 Episodic Other inflammatory condition of skin (1 source) Erythema of skin; Translations: [Erythematous condition, unspecified] 02-25-2025 Episodic Other inflammatory condition of skin (1 source) Erythematous condition, unspecified; Translations: [Skin erythema] Onset: 5 Episodic Other injuries and conditions due to external causes (1 source) Swallowed foreign body; Translations: [Foreign body of alimentary tract, part unspecified, initial encounter] 06-13-2022 Episodic Other lower respiratory disease (2 sources) Dyspnea; Translations: [Shortness of breath] 07-06-2024 Episodic Other lower respiratory disease (1 source) Dyspnea on exertion; Translations: [Other forms of dyspnea] 08-06-2024 Episodic Other nervous system disorders (1 source) Expressive dysphasia; Translations: [Aphasia] 01-24-2021 Chronic Other nervous system disorders (1 source) Other chronic pain; Translations: [Chronic bilateral low back pain without sciatica] Onset: 5 Chronic Other non-traumatic joint disorders (5 sources) Hip pain; Translations: [Pain in left hip] Episodic Other non-traumatic joint disorders (2 sources) Pain in right hip joint; Translations: [Pain in right hip] 05-03-2023 Episodic Other non-traumatic joint disorders (2 sources) Pain in left knee; Translations: [Pain in joint, lower leg] 03-31-2024 Episodic Other non-traumatic joint disorders (1 source) Effusion of joint of left knee; Translations: [Effusion, left knee] 05-01-2024 Episodic Other non-traumatic joint disorders (1 source) Pain in left hip; Translations: [Pain in left hip] Onset: Episodic Other skin disorders (1 source) Disorder of skin of lower limb; Translations: [Disorder of the skin and subcutaneous tissue, unspecified] 03-15-2023 Episodic Other upper respiratory infections (1 source) Sore throat symptom; Translations: [Acute pharyngitis, unspecified] 06-20-2023 Episodic Residual codes; unclassified (2 sources) Pain; Translations: [Pain, unspecified] 04-09-2024 Episodic Residual codes; unclassified (3 sources) Postmenopausal state; Translations: [Asymptomatic menopausal state] 11-20-2024 Episodic Residual codes; unclassified (1 source) History of atrial flutter; Translations: [Other specified postprocedural states] 02-12-2025 Episodic Residual codes; unclassified (1 source) Asymptomatic menopausal state; Translations: [Asymptomatic postmenopausal status] Onset: Episodic Residual codes; unclassified (2 sources) Other specified postprocedural states; Translations: [S/P catheter ablation of slow pathway] Onset: Episodic Spondylosis; intervertebral disc disorders; other back problems (20 sources) Degeneration of lumbar intervertebral disc; Translations: [Other intervertebral disc degeneration, lumbar region] Onset: 3 Chronic Sprains and strains (1 source) Injury of left leg; Translations: [Strain of left quadriceps muscle, fascia and tendon, initial encounter] 03-31-2024 Episodic Superficial injury; contusion (4 sources) Contusion of left knee; Translations: [Contusion of left knee, initial encounter] Onset: 5 03-31-2024 Episodic Unclassified (2 sources) Supraventricular tachycardia, unspecified; Translations: [Supraventricular tachycardia, unspecified] Onset: 5 Unclassified (2 sources) Paroxysmal SVT (supraventricular tachycardia) (HCC); Translations: [Paroxysmal SVT (supraventricular tachycardia) (HCC)] Onset: 5 Unclassified (1 source) Chronic bilateral low back pain without sciatica; Translations: [Chronic bilateral low back pain without sciatica] Onset: 5 Viral infection (2 sources) Disease caused by 2019-nCoV; Translations: [COVID-19] Episodic Past or Other Problems Problem Classification Problem Date Documented Date Episodic/Chronic Acute posthemorrhagic anemia (20 sources) Acute posthemorrhagic anemia; Translations: [Acute posthemorrhagic anemia] Onset: 3 Resolved: 4 07-15-2023 Episodic Conditions associated with dizziness or vertigo (9 sources) Lightheadedness; Translations: [Dizziness and giddiness] Onset: 4 05-18-2024 Episodic Diabetes mellitus without complication (20 sources) Hyperglycemia; Translations: [Impaired fasting glucose] Onset: 3 Resolved: 4 09-25-2021 Episodic Other aftercare (20 sources) Follow-up status; Translations: [Encounter for other specified aftercare] Onset: 3 Resolved: 3 07-08-2023 Episodic Other bone disease and musculoskeletal deformities (20 sources) Avascular necrosis of bone of hip; Translations: [Osteonecrosis, unspecified] Onset: 3 Resolved: 4 06-28-2023 Chronic Other circulatory disease (1 source) Other specified symptoms and signs involving the circulatory and respiratory systems; Translations: [Throat tightness] Onset: 4 Episodic Other connective tissue disease (20 sources) Trochanteric bursitis of right hip; Translations: [Trochanteric bursitis, right hip] Onset: 3 Episodic Other lower respiratory disease (3 sources) Shortness of breath; Translations: [Shortness of breath] Onset: 4 Episodic Other nervous system disorders (20 sources) Abnormal gait; Translations: [Unspecified abnormalities of gait and mobility] Onset: 6 06-21-2016 Episodic Other nervous system disorders (20 sources) Postoperative pain ; Translations: [Other acute postprocedural pain] Onset: 3 Resolved: 4 08-01-2023 Episodic Other screening for suspected conditions (not mental disorders or infectious disease) (20 sources) Electrocardiogram abnormal; Translations: [Abnormal electrocardiogram [ECG] [EKG]] Onset: 3 01-24-2021 Episodic Residual codes; unclassified (20 sources) Family history of malignant neoplasm of gastrointestinal tract; Translations: [Family history of malignant neoplasm of digestive organs] Onset: 2 09-25-2021 Episodic Residual codes; unclassified (19 sources) H/O cardiac surgery; Translations: [Other specified postprocedural states] Onset: 5 10-30-2024 Episodic Residual codes; unclassified (18 sources) Other specified personal risk factors, not elsewhere classified; Translations: [Other specified personal history presenting hazards to health] Onset: 5 10-27-2024 Episodic Residual codes; unclassified (1 source) Procedure and treatment not carried out due to patient leaving prior to being seen by health care provider; Translations: [Procedure and treatment not carried out due to patient leaving prior to being seen by health care provider] Onset: 4 Episodic Screening and history of mental health and substance abuse codes (20 sources) Ex-smoker; Translations: [Personal history of nicotine dependence] Onset: 3 06-26-2023 Episodic Spondylosis; intervertebral disc disorders; other back problems (20 sources) Chronic low back pain; Translations: [Chronic midline low back pain without sciatica] Onset: 9 04-29-2019 Episodic Syncope (7 sources) Near syncope; Translations: [Syncope and collapse] Onset: 4 05-18-2024 Episodic Results Test Name Value Interpretation Reference Range Facility [facility] 04-29-2025 [facility] Telephone (INTWS) TANIA ROMERO ([id number]) 1940 F Date Time Provider Department 04/29/25 BG CHAVARRIA During your visit today, we recorded the following information about you: Beata Rod LPN 04/29/2025 10:33 AM Signed Pcp reviewed and completed pre op for. This was faxed back to Dr. Andrews Allergies As of Date: 04/29/2025 Noted Allergy Reaction AMOXICILLIN 06/24/2015 2 - Rash CLINDAMYCIN 07/12/2006 15 - Contraindication-[facility]* Comments: C diff COMPAZINE (PROCHLORPERAZINE EDISY*07/11/2006 5 - Intolerance PENICILLINS 07/11/2006 2 - Rash 5 - Intolerance Comments: Rash after 4 days of antibiotic . PROCHLORPERAZINE 06/30/2023 13 - Dystonia Date Reviewed: 03/19/2025 Reviewed by: Ava Peterson LPN - Fully Assessed Reason for Visit: Forms [913] Cmt: Pre op form from Dr. Haile Prescriptions as of 04/29/2025 - metoprolol succinate ER (TOPROL XL) 25 mg 24 hr tablet Take 0.5 tablets by mouth once daily. - apixaban (ELIQUIS) 2.5 mg tab(s) Take 1 tablet by mouth two times a day. - alendronate (FOSAMAX) 70 mg tablet Take 1 tablet by mouth one time a week. Take with a full glass of water, on an empty stomach; do NOT lie down for 30minutes. - metFORMIN ER (GLUCOPHAGE XR) 500 mg 24 hr tablet Take 1 tablet by mouth daily with breakfast. - meloxicam (MOBIC) 7.5 mg tablet Take 1 tablet by mouth once daily. - cyanocobalamin 1,000 mcg/mL USE ONE ML INTO THE MUSCLE ONCE MONTHLY - Syringe with Needle, Disp, (BD LUER-ISABEL SYRINGE) 3 mL 25 gauge x 1 Use for b12 injection monthly - Cholecalciferol, Vitamin D3, 125 mcg (5,000 unit) cap Hold for 1 month then take once weekly - Lactobacillus acidophilus (PROBIOTIC ORAL) Take by mouth. - calcium carbonate (TUMS ORAL) Take by mouth as needed. - Lactase (LACTAID FAST ACT) 9,000 unit chew Uses as needed Problem List As Of Date 04/29/2025 Noted Resolved Family history of malignant neoplasm of gastroi*05/06/2012 Elevated fasting glucose [R73.01] 05/04/2013 03/24/2024 Low vitamin B12 level [R79.89] Primary osteoarthritis of left hip [M16.12] 02/03/2021 Multiple sclerosis (HCC) [G35] 05/31/2016 Abnormality of gait [R26.9] 06/21/2016 Osteopenia [M85.80] Chronic midline low back pain without sciatica *04/29/2019 Primary osteoarthritis of both hips [M16.0] 06/07/2020 Type 2 diabetes mellitus, without long-term cur*01/24/2021 GERD (gastroesophageal reflux disease) [K21.9] 01/24/2021 Abnormal EKG [R94.31] 01/24/2021 Vitamin D deficiency [E55.9] 03/04/2022 Elevated LDL cholesterol level [E78.00] 03/04/2022 Colon cancer screening [Z12.11] 03/04/2022 Trochanteric bursitis of right hip [M70.61] 02/08/2023 SI (sacroiliac) joint inflammation (HCC) [M46.1]06/24/2023 Former smoker [Z87.891] 06/26/2023 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] 06/27/2023 06/28/2023 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] 06/29/2023 11/19/2023 Aftercare [Z51.89] 06/30/2023 07/08/2023 Acute blood loss anemia [D62] 07/01/2023 03/24/2024 Status post left hip replacement [Z96.642] 07/04/2023 Status post hip replacement, right [Z96.641] 07/24/2023 Other acute postoperative pain [G89.18] 08/01/2023 03/24/2024 Paroxysmal SVT (supraventricular tachycardia) (*07/28/2024 Typical atrial flutter (HCC) [I48.3] 10/27/2024 S/P catheter ablation of slow pathway [Z98.890,*10/27/2024 Stroke risk [Z91.89] 10/27/2024 Encounter Status:Closed by BEATA ROD on 04/29/25 Normal [facility] Cardiology Visit Reporton Cardiology Visit Report [facility] [address] [place] [address] OFFICE VISIT Date of Service: 04/20/25 MR#: [id number] Acct: [id number] Name: TANIA ROMERO Rep #: [id number] : 1940 Provider: MINH Castano rts Age/Sex: 84/F Location: [facility] Status: Signed HPI HPI History of Present Illness Details: This is a 84-year-old female who presents to the office today for cardiovascular follow-up visit. She does have a history of SVT, and underwent an ablation in September of this year. A Lexiscan stress Myoview was negative for ischemia. Echocardiogram showed normal LV systolic function. Mild mitral valve regurgitation along with mild to moderate aortic valve regurgitation was noted. She is currently wearing a 14 day event monitor ordered by EP. From a cardiac standpoint, the patient is doing well. She does have occasional palpitation- fluttering sensation. She denies any chest pain, pressure or heaviness. She denies SOB, Orthopnea, and PND. She does not have bleeding issues; no blood in urine, stool, or nosebleeds. She denies any decrease in energy level, myalgias, or claudication. She does not have edema, or sudden weight gain. She denies lightheadedness, dizziness, syncopal or near syncopal episodes, and headaches. 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: No Is patient in pain?: No Allergies Penicillins Allergy (Severe, Verified 04/20/25 13:21) Rash amoxicillin Allergy (Verified 04/20/25 13:21) Rash clindamycin Adverse Reaction (Severe, Verified 04/20/25 13:21) Diarrhea prochlorperazine (From Compazine) Adverse Reaction (Verified 04/20/25 13:21) Other Medications ???Medication ???Instructions ???Recorded ???Confirmed ???Type conjugated estrogens 0.625 mg/gram 0.3125 mg vaginal DAILY Estrogen 01/24/21 04/20/25 History vaginal cream lactase 9,000 unit tablet (Lactase 9,000 unit PO ONCE PRN lactose 0 01/24/21 04/20/25 History Fast Acting) intolerance metformin 500 mg tablet 500 mg PO DAILY Diabetes 01/24/21 04/20/25 History cyanocobalamin (vitamin B-12) 1,000 mcg IM QMONTH #0 mL 02/15/21 04/20/25 Rx 1,000 mcg/mL injection solution alendronate 70 mg tablet 70 mg PO QWEEK 08/06/24 04/20/25 H istory cholecalciferol (vitamin D3) 125 5,000 unit PO QWEEK Supplement 04/20/25 History mcg (5,000 unit) capsule meloxicam 15 mg tablet 7.5 mg PO ONCE Arthritis pain 07/3104/20/25 History metoprolol succinate 25 mg 12.5 mg PO QDAY 08/31/24 04/20/25 History tablet,extended release 24 hr apixaban 2.5 mg tablet (Eliquis) 2.5 mg PO BID 04/20/25 04/20/25 Hi story Ejection fraction %: 65 Have you fallen in the past year?: No PFSH Medical History Aortic valve insufficiency Abnormality of gait Osteopenia Elevated LDL cholesterol level Vitamin D deficiency Trochanteric bursitis of right hip SI (sacroiliac) joint inflammation Former smoker Abnormal electro-oculogram GERD (gastroesophageal reflux disease) Type 2 diabetes mellitus Preop cardiovascular exam Multiple sclerosis DJD (degenerative joint disease) of cervical spine Expressive aphasia Surgical History History of right hip replacement History of left hip replacement History of tonsillectomy History of bunionectomy History of left inguinal hernia repair History of tubal ligation Family History Father Colon cancer Mother Thyroid disorder Osteoporosis Social History household members: spouse Smoking Status: Former smoker quit date: 09/30/92 Electronic Cigarette Use: not used alcohol intake: current details: Glass of wine daily. substance use type: does not use caffeine: Yes ROS Const Const: Negative for fatigue, weakness, headache(s) or frequent falls Eyes Eyes: Negative for blurry vision ENT ENT: Negative for headache(s), dizziness or Nosebleed/epistaxis Cardio Chest Pain: No Palpitations: Yes Edema: None Muscle aches with walking: None Resp Respiratory: Negative for SOB with activity, SOB at rest or SOB orthopnea SOB lying down GI GI: Negative nausea, vomiting, heartburn, bright, red blood in stools or black,tarry stools : Negative for hematuria Neuro Neuro: Negative for dizziness, lightheadedness, near syncope, syncope, frequent falls, headache(s), weakness or (more content not included)... [facility] 03-19-2025 [facility] Office Visit (INTMWS ) TANIA ROMERO ([id number]) 1940 F Date Time Provider Department 03/19/25 9:40 AM BG CHAVARRIA INTMWS During your visit today, we recorded the following information about you: Pulse Respiration Blood pressure Weight 80/minute 16/minute 128/62 50 kg Bg Chavarria MD 04/11/2025 7:14 PM Signed This note was created using NoteWriter. Subjective Tania Romero is a 84 year old female. SUBJECTIVE: Tania Romero is a 84-year-old female with a history of DM, hypercholesterolemia, and atrial flutter, presenting for a 4-month follow-up visit. Tania reports no acute issues at this time. She denies experiencing any allergies or recent illnesses. She is currently taking Eliquis, meloxicam, and metoprolol. She reports a recent onset of mild stomach pain, which she attributes to the initiation of Eliquis. The pain was transient and has since resolved. She is taking meloxicam 7.5 mg once daily for arthritis pain, particularly in the lower back, and has not attempted to discontinue it recently. She has not tried using Tylenol for pain management. She is also taking metoprolol, half a tablet daily, for heart rate control and denies any recent palpitations. She has noticed increased bruising since starting Eliquis. Tania has a history of atrial flutter and underwent a heart ablation procedure, which she reports was not entirely successful. She is scheduled to wear a heart monitor in mid-March. She denies using Premarin and takes a probiotic as needed for bowel irregularities. She reports occasional swelling in her feet, which she manages with tight socks. She also uses a walking stick to help with balance due to scoliosis and kyphosis. Tania is trying to improve her hydration habits and is considering resuming the use of XyliMelts to help with dry mouth. She is planning a 4-day trip to [place] and is concerned about potential health issues during the trip. She reports taking daily short walks and plans to increase her activity during her trip. 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 Rodriguez on 10/26/2024. Stroke risk 10/27/2024 Type 2 diabetes mellitus, without long-term current use of insulin ([facility]) 01/24/2021 Typical atrial flutter ([facility]) 10/27/2024 PAST SURGICAL HISTORY Procedure Laterality Date ABDOMINAL SURGERY HX CATARACT EXTRACTION HX Right 04/25/2015 Cataract surgery DELIVERY ONLY , low cervical COLONOSCOPY FLX DX W/COLLJ SPEC WHEN PFRMD 07/31/2000 Colonoscopy COLONOSCOPY FLX DX W/COLLJ SPEC WHEN PFRMD 09/18/2006 COLONOSCOPY FLX DX W/COLLJ SPEC WHEN PFRMD 07/01/2012 Colonoscopy COLONOSCOPY FLX DX W/COLLJ SPEC WHEN PFRMD 04/30/2017 Colonoscopy EYE SURGERY HX HERNIA REPAIR HX LIG/TRNSXJ FLP TUBE ABDL/VAG APPR UNI/BI Tubal ligation PAST SURGICAL HISTORY OF 12/31/2002 lap left ing hernia PAST SURGICAL HISTORY OF 10/03/2012 bunionectomy (Dr. Araya) TONSILLECTOMY HX TONSILLECTOMY PRIMARY/SECONDARY Tonsillectomy TOTAL HIP REPLACEMENT Left 02/01/2021 TOTAL HIP REPLACEMENT Right 06/27/2023 Current Outpatient Medications Medication Sig metoprolol succinate ER (TOPROL XL) 25 mg 24 hr tablet Take 0.5 tablets by mouth once daily. apixaban (ELIQUIS) 2.5 mg tab(s) Take 1 tablet by mouth two times a day. alendronate (FOSAMAX) 70 mg tablet Take 1 tablet by mouth one time a week. Take with a full glass of water, on an empty stomach; do NOT lie down for 30minutes. metFORMIN ER (GLUCOPHAGE XR) 500 mg 24 hr tablet Take 1 tablet by mouth daily with breakfast. meloxicam (MOBIC) 7.5 mg tablet Take 1 tablet by mouth once daily. cyanocobalamin 1,000 mcg/mL USE ONE ML INTO THE MUSCLE ONCE MONTHLY Syringe with Needle, Disp, (BD LUER-ISABEL SYRINGE) 3 mL 25 gauge x 1 Use for b12 injection monthly Cholecalciferol, Vitamin D3, 125 mcg (5,000 unit) cap Hold for 1 month then take once weekly calcium carbonate (TUMS ORAL) Take by mouth as needed. Lactase (LACTAID FAST ACT) 9,000 unit chew Uses as needed Lactobacillus acidophilus (PROBIOTIC ORAL) Take by mouth. (Patient not taking: Reported on 02/15/2025) conjugated estrogens (PREMARIN) vaginal cream Use 0.5 g vaginally as needed. for 3 weeks then off for 1 week (Patient not taking: Reported on 02/15/2025) No current facility-administered medications for this visit. Review of Systems Objective BP 128/62 Pulse 80 Resp 16 Wt 50 kg (110 lb 3.7 oz) BMI 21.53 (more content not included)... Normal [facility] DXA - AXIAL SKELETONon BD DXA - AXIAL SKELETON * * *Final Report* * * DATE OF EXAM: Mar 18 2025 12:52PM WRB 0804 - BD DXA - AXIAL SKELETON / PROCEDURE REASON: Asymptomatic postmenopausal status * * * * Physician Interpretation * * * * EXAMINATION: DXA BONE DENSITOMETRY BD DXA - AXIAL SKELETON, BD DXA TRABECLR BONE SCORE (TBS) PATIENT DEMOGRAPHICS: Age: 84 years, Gender: Female SCANNER INFORMATION: DXA Model: [employer] - [place] C [id number] Date Scanned: 03/18/2025 12:52 PM CLINICAL HISTORY: SCREENING Asymptomatic postmenopausal status . RISK FACTORS FOR OSTEOPOROSIS AND ASSOCIATED FRACTURES REPORTED BY THIS PATIENT: Please refer to Bone Health Questionnaire in the EMR CURRENT THERAPY: Please refer to Bone Health Questionnaire in the EMR TECHNICAL LIMITATIONS: Degenerative disease of the spine bilateral hip fractures / surgery RESULTS: Lumbar spine (L1, L2, L4): 1.372 g/cm2, T-score 3.1 , Z-score 5.9 Lumbar spine: 2019 : 1.291 g/cm2 Statistically significant increase Left Forearm, Distal 1/3 of Radius: 0.589 g/cm2, T-score -1.7 , Z-score 1.8 CHANGE IS STATISTICALLY SIGNIFICANT IN THE SPINE OR HIP IF GREATER THAN OR EQUAL TO 0.04 g/cm2 VERTEBRAL FRACTURE ASSESSMENT Not performed. TRABECULAR BONE ASSESSMENT TBS score: 1.494 Bone micro-architecture: Normal (> 1.310) IMPRESSION: THE LOWEST T-SCORE IS -1.7 IN THE LEFT FOREARM 1) DIAGNOSIS (based on BMD alone): OSTEOPENIA - Caution: Medical conditions other than osteoporosis may cause low bone density, such as osteomalacia or renal osteodystrophy. Clinical correlation is necessary. 2) FRACTURE RISK (based on BMD and TBS) - MEDIUM - Caution: Fracture risk may be increased independent of BMD in patients with corticosteroid use, age greater than 65 years, or a history of prior fragility fracture. - FRAX was not calculated: no hip scan performed RECOMMENDATIONS: Follow-up in 2 years or as clinically indicated. Patients that are taking corticosteroids, are transplant recipients or have hyperparathyroidism should have annual follow-up. Follow-up scans should always be done on the same machine for accurate comparison. FOR MORE INFORMATION ABOUT DIAGNOSIS AND TREATMENT: [facility] Center for Osteoporosis and Metabolic Bone Disease:? www.ccf.org/arthritis/o steo National Osteoporosis Foundation:? www.nof.org International Society of Clinical Densitometry www.iscd.org [employer] Assistant Principal: PSCB Transcribe Date/Time: Mar 21 2025 7:38A Dictated by : SALVATORE AYERS MD This examination was interpreted and the report reviewed and electronically signed by: SALVATORE AYERS MD on Mar 21 2025 7:41AM EST [id number] -1.7 Normal [facility] BD DXA TRABECLR BONE SCORE ( TBS)on 03-18-2025 BD DXA TRABECLR BONE SCORE (TBS) * * *Final Report* * * DATE OF EXAM: Mar 18 2025 12:52PM WRB 0801 - BD DXA TRABECLR BONE SCORE (TBS) / PROCEDURE REASON: Asymptomatic postmenopausal status * * * * Physician Interpretation * * * * EXAMINATION: DXA BONE DENSITOMETRY BD DXA - AXIAL SKELETON, BD DXA TRABECLR BONE SCORE (TBS) PATIENT DEMOGRAPHICS: Age: 84 years, Gender: Female SCANNER INFORMATION: DXA Model: [employer] - [place] C [id number] Date Scanned: 03/18/2025 12:52 PM CLINICAL HISTORY: SCREENING Asymptomatic postmenopausal status . RISK FACTORS FOR OSTEOPOROSIS AND ASSOCIATED FRACTURES REPORTED BY THIS PATIENT: Please refer to Bone Health Questionnaire in the EMR CURRENT THERAPY: Please refer to Bone Health Questionnaire in the EMR TECHNICAL LIMITATIONS: Degenerative disease of the spine bilateral hip fractures / surgery RESULTS: Lumbar spine (L1, L2, L4): 1.372 g/cm2, T-score 3.1 , Z-score 5.9 Lumbar spine: 2019 : 1.291 g/cm2 Statistically significant increase Left Forearm, Distal 1/3 of Radius: 0.589 g/cm2, T-score -1.7 , Z-score 1.8 CHANGE IS STATISTICALLY SIGNIFICANT IN THE SPINE OR HIP IF GREATER THAN OR EQUAL TO 0.04 g/cm2 VERTEBRAL FRACTURE ASSESSMENT Not performed. TRABECULAR BONE ASSESSMENT TBS score: 1.494 Bone micro-architecture: Normal (> 1.310) IMPRESSION: THE LOWEST T-SCORE IS -1.7 IN THE LEFT FOREARM 1) DIAGNOSIS (based on BMD alone): OSTEOPENIA - Caution: Medical conditions other than osteoporosis may cause low bone density, such as osteomalacia or renal osteodystrophy. Clinical correlation is necessary. 2) FRACTURE RISK (based on BMD and TBS) - MEDIUM - Caution: Fracture risk may be increased independent of BMD in patients with corticosteroid use, age greater than 65 years, or a history of prior fragility fracture. - FRAX was not calculated: no hip scan performed RECOMMENDATIONS: Follow-up in 2 years or as clinically indicated. Patients that are taking corticosteroids, are transplant recipients or have hyperparathyroidism should have annual follow-up. Follow-up scans should always be done on the same machine for accurate comparison. FOR MORE INFORMATION ABOUT DIAGNOSIS AND TREATMENT: [facility] for Osteoporosis and Metabolic Bone Disease:? www.ccf.org/arthritis/o steo National Osteoporosis Foundation:? www.nof.org International Society of Clinical Densitometry www.iscd.org [employer] Assistant Principal: PSC[employer] Transcribe Date/Time: Mar 21 2025 7:38A Dictated by : SALVATORE AYERS MD This examination was interpreted and the report reviewed and electronically signed by: SALVATORE AYERS MD on Mar 21 2025 7:41AM EST [id number] -1.7 Normal [facility] 25(OH)D3 [facility] 2024 25-hydroxyvitamin D3 [Mass/Vol] 46.4 ng/mL Normal 31.0-80.0 [facility] Comment on above: Order Comment: Speci karin Type: BLOOD SPECIMEN Ordering Facility: [facility] Address: [address] [place] [address] Performed By: #### 1 989-3 #### [facility] CLIA [id number] [address] [place] [address] [place] ALBUMIN/CREATININE RATIO, [facility] [place] 03-15-2025 Albumin DL <= 20 mg/L (U) [Mass/Vol] mg/dL Normal [facility] Comment on above: Order Comment: Speci men Type: BLOOD SPECIMEN Ordering Facility: [facility] Address: [address] [place] [address] Performed By: #### 1 989-3 #### [facility] CLIA [id number] [address] [place] [address] [place] Albumin/Creatinine (U) [Mass ratio] <17 Normal <30 [facility] Comment on above: Order Comment: Speci men Type: BLOOD SPECIMEN Ordering Facility: [facility] Address: [address] [place] [address] Result Comment: Adul t Male and Female Nephrotic Criteria: <30 mg/g is considered normal to mildly increased 30-300 mg/g is considered moderately increased >300 mg/g is considered severely increased KDIGO. (2013). KDIGO 2012 Clinical Practice Guideline for the Evaluation and Management of Chronic Kidney Disease. Official Journal of the International Society of Nephrology, 3(1), 1-150. Performed By: #### 1 989-3 #### [facility] CLIA [id number] [address] [place] [address] [place] Creatinine (U) [Mass/Vol] 68.8 mg/dL Normal 20.0-300.0 [facility] Comment on above: Order Comment: Speci men Type: BLOOD SPECIMEN Ordering Facility: [facility] Address: [address] [place] [address] Performed By: #### 1 989-3 #### [facility] CLIA [id number] [address] [place] [address] [place] CBC panel Auto (Bld)on 03-15 Erythrocyte distribution width (RBC) [Ratio] 13.4 % Normal 11.5-15.0 [facility] Comment on above: Order Comment: Speci men Type: BLOOD SPECIMEN Ordering Facility: [facility] Address: [address] [place] [address] Performed By: #### 1 989-3 #### [facility] CLIA [id number] [address] [place] [address] [place] Hematocrit (Bld) [Volume fraction] 38.6 % Normal 36.0-46.0 [facility] Comment on above: Order Comment: Speci men Type: BLOOD SPECIMEN Ordering Facility: [facility] Address: [address] [place] [address] Performed By: #### 1 989-3 #### [facility] CLIA [id number] [address] [place] [address] [place] Hemoglobin (Bld) [Mass/Vol] 12.5 g/dL Normal 11.5-15.5 [facility] Comment on above: Order Comment: Speci men Type: BLOOD SPECIMEN Ordering Facility: [facility] Address: [address] [place] [address] Performed By: #### 1 989-3 #### [facility] CLIA [id number] [address] [place] [address] [place] MCH (RBC) [Entitic mass] 28.7 pg Normal 26.0-34.0 [facility] Comment on above: Order Comment: Speci men Type: BLOOD SPECIMEN Ordering Facility: [facility] Address: [address] [place] [address] Performed By: #### 1 989-3 #### [facility] CLIA [id number] [address] [place] [address] [place] MCHC (RBC) [Mass/Vol] 32.4 g/dL Normal 30.5-36.0 [facility] Comment on above: Order Comment: Speci men Type: BLOOD SPECIMEN Ordering Facility: [facility] Address: [address] [place] [address] Performed By: #### 1 989-3 #### [facility] CLIA [id number] [address] [place] [address] [place] MCV (RBC) [Entitic vol] 88.7 fL Normal 80.0-100.0 [facility] Comment on above: Order Comment: Speci men Type: BLOOD SPECIMEN Ordering Facility: [facility] Address: [address] [place] [address] Performed By: #### 1 989-3 #### [facility] CLIA [id number] [address] [place] [address] [place] Nucleated RBC (Bld) [#/Vol] 10*3/uL Normal <0.01 [facility] Comment on above: Order Comment: Speci men Type: BLOOD SPECIMEN Ordering Facility: [facility] Address: [address] [place] [address] Performed By: #### 1 989-3 #### [facility] CLIA [id number] [address] [place] [address] [place] Platelet mean volume (Bld) [Entitic vol] 9.8 fL Normal 9.0-12.7 [facility] Comment on above: Order Comment: Speci men Type: BLOOD SPECIMEN Ordering Facility: [facility] Address: [address] [place] [address] Performed By: #### 1 989-3 #### [facility] CLIA [id number] [address] [place] [address] [place] Platelets (Bld) [#/Vol] 286 10*3/uL Normal 150-400 [facility] Comment on above: Order Comment: Speci men Type: BLOOD SPECIMEN Ordering Facility: [facility] Address: [address] [place] [address] Performed By: #### 1 989-3 #### [facility] CLIA [id number] [address] [place] [address] [place] RBC (Bld) [#/Vol] 4.35 10*6/uL Normal 3.90-5.20 [facility] Comment on above: Order Comment: Speci men Type: BLOOD SPECIMEN Ordering Facility: [facility] Address: [address] [place] [address] Performed By: #### 1 989-3 #### [facility] CLIA [id number] [address] [place] [address] [place] WBC (Bld) [#/Vol] 8.16 10*3/uL Normal 3.70-11.00 [facility] Comment on above: Order Comment: Speci men Type: BLOOD SPECIMEN Ordering Facility: [facility] Address: [address] [place] [address] Performed By: #### 1 989-3 #### [facility] CLIA [id number] [address] [place] [address] [place] CNCOon 03-15-2025 CNCO Letter Text Letter Text Normal [facility] Comprehensive metabolic 2000 panelon 03-15-2025 Albumin [Mass/Vol] 4.3 g/dL Normal 3.9-4.9 [facility] Comment on above: Order Comment: Speci men Type: BLOOD SPECIMEN Ordering Facility: [facility] Address: [address] [place] [address] Performed By: #### 1 989-3 #### [facility] CLIA [id number] [address] [place] [address] [place] ALP [Catalytic activity/Vol] 71 U/L Normal 34-123 [facility] Comment on above: Order Comment: Speci men Type: BLOOD SPECIMEN Ordering Facility: [facility] Address: [address] [place] [address] Performed By: #### 1 989-3 #### [facility] CLIA [id number] [address] [place] [address] [place] ALT [Catalytic activity/Vol] 11 U/L Normal 7-38 [facility] Comment on above: Order Comment: Speci men Type: BLOOD SPECIMEN Ordering Facility: [facility] Address: [address] [place] [address] Performed By: #### 1 989-3 #### [facility] CLIA [id number] [address] [place], [place] [id number] [place] Anion gap [Moles/Vol] 13 mmol/L Normal 8-15 [facility] Comment on above: Order Comment: Speci men Type: BLOOD SPECIMEN Ordering Facility: [facility] Address: [address] [place], [place] [address] Performed By: #### 1 989-3 #### [facility] CLIA [id number] [address] [place] [address] [place] AST [Catalytic activity/Vol] 21 U/L Normal 13-35 [facility] Comment on above: Order Comment: Speci men Type: BLOOD SPECIMEN Ordering Facility: [facility] Address: [address] [place] [address] Performed By: #### 1 989-3 #### [facility] CLIA [id number] [address] [place] [address] [place] Bilirubin [Mass/Vol] 0.3 mg/dL Normal 0.2-1.3 [facility] Comment on above: Order Comment: Speci men Type: BLOOD SPECIMEN Ordering Facility: [facility] Address: [address] [place] [address] Performed By: #### 1 989-3 #### [facility] CLIA [id number] [address] [place] [address] [place] Calcium [Mass/Vol] 9.7 mg/dL Normal 8.5-10.2 [facility] Comment on above: Order Comment: Speci men Type: BLOOD SPECIMEN Ordering Facility: [facility] Address: [address] [place] [address] Performed By: #### 1 989-3 #### [facility] CLIA [id number] [address] [place] [address] [place] Chloride [Moles/Vol] 102 mmol/L Normal 98-107 [facility] Comment on above: Order Comment: Speci men Type: BLOOD SPECIMEN Ordering Facility: [facility] Address: [address] [place] [address] Performed By: #### 1 989-3 #### [facility] CLIA [id number] [address] [place] [address] [place] CO2 [Moles/Vol] 26 mmol/L Normal 22-30 [facility] Comment on above: Order Comment: Speci men Type: BLOOD SPECIMEN Ordering Facility: [facility] Address: [address] [place] [address] Performed By: #### 1 989-3 #### [facility] CLIA [id number] [address] [place] [address] [place] Creatinine [Mass/Vol] 1.03 mg/dL High 0.58-0.96 [facility] Comment on above: Order Comment: Speci men Type: BLOOD SPECIMEN Ordering Facility: [facility] Address: [address] [place] [address] Performed By: #### 1 989-3 #### [facility] CLIA [id number] [address] [place] [address] [place] Creatinine and Glomerular filtration rate.predicted panel (S/P/Bld) 54 mL/min/1.73m??? Low >=60 [facility] Comment on above: Order Comment: Speci men Type: BLOOD SPECIMEN Ordering Facility: [facility] Address: [address] [place] [address] Result Comment: Alice mated Glomerular Filtration Rate (eGFR) is calculated using the 2020 CKD-EPI creatinine equation. This equation utilizes serum creatinine, sex, and age as parameters. The creatinine assay has traceable calibration to isotope dilution-mass spectrometry. Refer to KDIGO guidelines for clinical interpretation. In patients with unstable renal function, e.g. those with acute kidney injury, the eGFR may not accurately reflect actual GFR. Performed By: #### 1 989-3 #### [facility] CLIA [id number] [address] [place] [address] [place] Glucose [Mass/Vol] 116 mg/dL High 74-99 [facility] Comment on above: Order Comment: Speci men Type: BLOOD SPECIMEN Ordering Facility: [facility] Address: [address] [place] [address] Result Comment: The [place] Diabetes Association (ADA) provides guidance for cutoff values for fasting glucose and random glucose. The ADA defines fasting as no caloric intake for at least 8 hours. Fasting plasma glucose results between 100 to 125 mg/dL indicate increased risk for diabetes (prediabetes). Fasting plasma glucose results greater than or equal to 126 mg/dL meet the criteria for diagnosis of diabetes. In the absence of unequivocal hyperglycemia, results should be confirmed by repeat testing. In a patient with classic symptoms of hyperglycemia or hyperglycemic crisis, random plasma glucose results greater than or equal to 200 mg/dL meet the criteria for diagnosis of diabetes. Reference: Standards of Medical Care in Diabetes 2016, [place] Diabetes Association. Diabetes Care. 2016.39(Suppl 1). Performed By: #### 1 989-3 #### [facility] CLIA [id number] [address] [place] [address] [place] Potassium [Moles/Vol] 4.4 mmol/L Normal 3.7-5.1 [facility] Comment on above: Order Comment: Selvin frazier Type: BLOOD SPECIMEN Ordering Facility: [facility] Address: [address] [place] [address] Performed By: #### 1 989-3 #### [facility] CLIA [id number] [address] [place] [address] [place] Protein [Mass/Vol] 6.9 g/dL Normal 6.3-8.0 [facility] Comment on above: Order Comment: Selvin frazier Type: BLOOD SPECIMEN Ordering Facility: [facility] Address: [address] [place] [address] Performed By: #### 1 989-3 #### [facility] CLIA [id number] [address] [place] [address] [place] Sodium [Moles/Vol] 141 mmol/L Normal 136-144 [facility] Comment on above: Order Comment: Jocelynei men Type: BLOOD SPECIMEN Ordering Facility: [facility] Address: [address] [place] [address] Performed By: #### 1 989-3 #### [facility] CLIA [id number] [address] [place] [address] [place] Urea nitrogen [Mass/Vol] 35 mg/dL High 7-21 [facility] Comment on above: Order Comment: Selvin frazier Type: BLOOD SPECIMEN Ordering Facility: [facility] Address: [address] [place] [address] Performed By: #### 1 989-3 #### [facility] CLIA [id number] [address] [place] [address] [place] HbA1c (Bld)on 03-15-2025 Average glucose Estimated from glycated hemoglobin (Bld) [Mass/Vol] 146 mg/dL Normal [facility] Comment on above: Order Comment: Selvin frazier Type: BLOOD SPECIMEN Ordering Facility: [facility] Address: [address] [place] [address] Result Comment: eAG: (Estimated average glucose) is a calculated value from HgbA1c and is patient account representative of the average blood glucose level in the last 2-3 month period. Performed By: #### 1 989-3 #### [facility] CLIA [id number] [address] [place] [address] [place] [facility] HbA1c (Bld) [Mass fraction] 6.7 % High 4.3-5.6 [facility] Comment on above: Order Comment: Selvin frazier Type: BLOOD SPECIMEN Ordering Facility: [facility] Address: [address] [place] [address] Result Comment: [place] Diabetes Association guidelines indicate that patients with HgbA1c in the range 5.7-6.4% are at increased risk for development of diabetes, and intervention by lifestyle modification may be beneficial. HgbA1c greater or equal to 6.5% is considered diagnostic of diabetes. Performed By: #### 1 989-3 #### [facility] CLIA [id number] [address] [place] [address] [place] Lipid 1996 panelon 5 Cholesterol [Mass/Vol] 222 mg/dL High <200 [facility] [facility] Comment on above: Order Comment: Selvin frazier Type: BLOOD SPECIMEN Ordering Facility: [facility] Address: [address] [place] [address] Result Comment: <200 mg/dL, Desirable 200-239 mg/dL, Borderline high >239 mg/dL, High Performed By: #### 1 989-3 #### [facility] CLIA [id number] [facility] [place] [address] [place] Cholesterol in HDL [Mass/Vol] 67 mg/dL Normal >39 [facility] Comment on above: Order Comment: Speci men Type: BLOOD SPECIMEN Ordering Facility: [facility] Address: [address] [place] [address] Result Comment: 40-5 9 mg/dL, Acceptable >59 mg/dL, High: Negative risk factor for coronary heart disease <40 mg/dL, Low: Positive risk factor for coronary heart disease Performed By: #### 1 989-3 #### [facility] CLIA [id number] [address] [place] [address] [place] Cholesterol in LDL [Mass/Vol] 141 mg/dL High <100 [facility] Comment on above: Order Comment: Selvin frazier Type: BLOOD SPECIMEN Ordering Facility: [facility] Address: [address] [place] [address] Result Comment: <100 mg/dL, Optimal 100-129 mg/dL, Near optimal/above optimal 130-159 mg/dL, Borderline high 160-189 mg/dL, High >189 mg/dL, Very high Secondary prevention optimal LDL Cholesterol levels are recommended to be <70 mg/dL LDL cholesterol is calculated using the Álvarez-NIH equation. Performed By: #### 1 989-3 #### [facility] CLIA [id number] [address] [place] [address] [place] Cholesterol in LDL/Cholesterol in HDL [Mass ratio] 2.10 {ratio} Normal <2.54 [facility] Comment on above: Order Comment: Selvin men Type: BLOOD SPECIMEN Ordering Facility: [facility] Address: [address] [place] [address] Result Comment: Refe ericace: 1. National Cholesterol Education Program ATP III Guideline At-A-Glance Quick Desk Reference: National Heart, Lung, and Blood [place]. National Institutes of Health. 2001: NIH Publication No. 01-3305. 2. An International Atherosclerosis Society position paper: global recommendations for the management of dyslipidemia: executive summary, Atherosclerosis. 2014: 232(2):410-413. Performed By: #### 1 989-3 #### [facility] CLIA [id number] [address] [place] [address] [place] Cholesterol in VLDL [Mass/Vol] 14 mg/dL Normal <30 [facility] Comment on above: Order Comment: Selvin frazier Type: BLOOD SPECIMEN Ordering Facility: [facility] Address: [address] [place] [address] Performed By: #### 1 989-3 #### [facility] CLIA [id number] [address] [place] [address] [place] Cholesterol non HDL [Mass/Vol] 155 mg/dL High <130 [facility] Comment on above: Order Comment: Selvin frazier Type: BLOOD SPECIMEN Ordering Facility: [facility] Address: [address] [place] [address] Result Comment: <130 mg/dL, Optimal 130-159 mg/dL, Near optimal/above optimal 160-189 mg/dL, Borderline high 190-219 mg/dL, High >219 mg/dL, Very high Secondary prevention optimal non HDL Cholesterol levels are recommended to be <100 mg/dL Performed By: #### 1 989-3 #### [facility] CLIA [id number] [address] [place] [address] [place] Cholesterol.total/Chol esterol in HDL [Mass ratio] 3.31 {ratio} Normal <5.10 [facility] Comment on above: Order Comment: Selvin frazier Type: BLOOD SPECIMEN Ordering Facility: [facility] Address: [address] [place] [address] Performed By: #### 1 989-3 #### [facility] CLIA [id number] [address] [place], [place] [id number] [place] FASTING TIME 12 hrs Normal [facility] Comment on above: Order Comment: Speci men Type: BLOOD SPECIMEN Ordering Facility: [facility] Address: [address] [place] [address] Performed By: #### 1 989-3 #### [facility] CLIA [id number] [address] [place] [address] [place] Triglyceride [Mass/Vol] 78 mg/dL Normal <150 [facility] Comment on above: Order Comment: Speci men Type: BLOOD SPECIMEN Ordering Facility: [facility] Address: [address] [place] [address] Result Comment: <150 mg/dL, Normal 150-199 mg/dL, Borderline high 200-499 mg/dL, High >499 mg/dL, Very high Performed By: #### 1 989-3 #### [facility] CLIA [id number] [address] [place] [address] [place] Vit B12 [facility] 16-2 025 Cobalamin (Vitamin B12) [Mass/Vol] 511 pg/mL Normal 232-1245 [facility] Comment on above: Order Comment: Speci men Type: BLOOD SPECIMEN Ordering Facility: [facility] Address: [address] [place] [address] Performed By: #### 1 989-3 #### [facility] CLIA [id number] [address] [place] [address] [place] CNOVon 02-25-2025 CNOV Office Visit (UCWSTR ) TANIA ROMERO ([id number]) 1940 F Date Time Provider Department 02/25/25 12:45 PM MADELEINE JUNG UCWSTR During your visit today, we recorded the following information about you: Temperature Pulse Respiration Blood pressure 98.6 degrees 80/minute 20/minute 127/77 Weight 50.2 kg Madeleine Jung, CARMEL.MORTGAGE LOAN ASSISTANT 02/25/2025 2:16 PM Signed [facility] Subjective Tania Romero is a 84 year old female. Patient presents with: Trauma: Possible tick bite, on R upper thigh, under buttocks, no pain, un open, redness, round, states she possibly pulled it out of area x 1 month Trauma Pertinent negatives include no arthralgias, chills, fever, headaches, joint swelling, myalgias or rash. Suspected Tick Bite: - Suspected tick bite on the thigh approximately 3 weeks ago. - Lesion was initially larger, pink, and reddish; now smaller with a hard core feeling. - Unsure if it was a tick; describes it as beige with thin black parts. - No associated pain, fever, chills, headaches, or unusual body aches. - Applying Neosporin and massaging the area daily. Review of Systems Constitutional: Negative for chills and fever. Musculoskeletal: Negative for arthralgias, joint swelling and myalgias. Skin: Positive for color change. Negative for rash. Neurological: Negative for headaches. Constitutional: (-) fever, (-) chills Head: (-) headaches Skin: (-) pain, (+) localized redness at thigh lesion Objective BP 127/77 Pulse 80 Temp 37 ?C (98.6 ?F) Resp 20 Wt 50.2 kg (110 lb 10.7 oz) SpO2 96% BMI 21.61 kg/m? 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 Rodriguez on 10/26/2024. - Stroke risk 10/27/2024 - Type 2 diabetes mellitus, without long-term current use of insulin ([facility]) 01/24/2021 - Typical atrial flutter (HCC) 10/27/2024 PAST SURGICAL HISTORY Procedure Laterality Date - ABDOMINAL SURGERY HX - CATARACT EXTRACTION HX Right 04/25/2015 Cataract surgery - DELIVERY ONLY , low cervical - COLONOSCOPY FLX DX W/COLLJ SPEC WHEN PFRMD 07/31/2000 Colonoscopy - COLONOSCOPY FLX DX W/COLLJ SPEC WHEN PFRMD 09/18/2006 - COLONOSCOPY FLX DX W/COLLJ SPEC WHEN PFRMD 07/01/2012 Colonoscopy - COLONOSCOPY FLX DX W/COLLJ SPEC WHEN PFRMD 04/30/2017 Colonoscopy - EYE SURGERY HX - HERNIA REPAIR HX - JOINT REPLACEMENT HX - LIG/TRNSXJ FLP TUBE ABDL/VAG APPR UNI/BI Tubal ligation - PAST SURGICAL HISTORY OF 12/31/2002 lap left ing hernia - PAST SURGICAL HISTORY OF 10/03/2012 bunionectomy (Dr. Araya) - TONSILLECTOMY HX - TONSILLECTOMY PRIMARY/SECONDARY Tonsillectomy - TOTAL HIP REPLACEMENT Left 02/01/2021 - TOTAL HIP REPLACEMENT Right 06/27/2023 ALLERGIES Amoxicillin, Clindamycin, Compazine [Prochlorperazine Edisylate], Penicillins, and Prochlorperazine MEDICATIONS - apixaban (ELIQUIS) 2.5 mg tab(s) Take 1 tablet by mouth two times a day. - alendronate (FOSAMAX) 70 mg tablet Take 1 tablet by mouth one time a week. Take with a full glass of water, on an empty stomach; do NOT lie down for 30minutes. - metFORMIN ER (GLUCOPHAGE XR) 500 mg 24 hr tablet Take 1 tablet by mouth daily with breakfast. - meloxicam (MOBIC) 7.5 mg tablet Take 1 tablet by mouth once daily. - metoprolol succinate ER (TOPROL XL) 25 mg 24 hr tablet Take 0.5 tablets by mouth once daily. - cyanocobalamin 1,000 mcg/mL USE ONE ML INTO THE MUSCLE ONCE MONTHLY - Syringe with Needle, Disp, (BD LUER-ISABEL SYRINGE) 3 mL 25 gauge x 1 Use for b12 injection monthly - Cholecalciferol, Vitamin D3, 125 mcg (5,000 unit) cap Hold for 1 month then take once weekly - calcium carbonate (TUMS ORAL) Take by mouth as needed. - Lactase (LACTAID FAST ACT) 9,000 unit chew Uses as needed - Lactobacillus acidophilus (PROBIOTIC ORAL) Take by mouth. (Patient not taking: Reported on 02/15/2025) - conjugated estrogens (PREMARIN) vaginal cream Use 0.5 g vaginally as needed. for 3 weeks then off for 1 week (Patient not taking: Reported on 02/15/2025) FAMILY HISTORY Problem Relation Age of Onset - Cancer Father COLON - Osteoporosis Mother - other (low thyroid) Mother Social History Tobacco Use - Smoking status: Former Current packs/day: 0.00 Types: Cigarettes Quit date: 1992 Years since quittin.4 - Smokeless tobacco: Never Vaping Use - Vaping status: Never Used Substance Use Topics - Alcohol use: Yes Comment: GLASS OF WINE DAILY/ Intermittent - Drug use: Not Currently Physical Exam Vitals and nursing note reviewe (more content not included)... Normal [facility] CNOVon 02-15-2025 CNOV Office Visit (AGCARDPOB) TANIA ROMERO ([id number]) 1940 F Date Time Provider Department 02/15/25 4:00 PM OXANA DARLING AGCARDPOJessica During your visit today, we recorded the following information about you: Pulse Blood pressure Weight 69/minute 126/63 52 kg Oxana Darling APRN.MORTGAGE LOAN ASSISTANT 02/15/2025 4:46 PM Signed [facility] General Cardiology Electrophysiology PRIMARY CARE PHYSICIAN: Bg Chavarria [address] [place] [address] CHIEF COMPLAINT: Cardiovascular medicine follow-up for arrhythmia. HISTORY OF PRESENT ILLNESS: Ms. Romero is a 84 year old female who presents today for follow-up regarding arrhythmia. Patient with a past medical history significant for vitamin D deficiency/osteopenia, hyperlipidemia, former smoker, type 2 diabetes, multiple sclerosis, and expressive aphasia. She established care with Dr. Rodriguez at the end of August 2024. She was evaluated at an outside cardiology clinic for episodes of lightheadedness and dizziness. She reported frequent episodes of pre-syncope without syncope; symptoms would subside when she lay down. Prior to her clinic visit, she had another pre-syncopal episode in a grocery store associated with chest pain and was evaluated by EMS, revealing a normal EKG and symptom resolution. She was advised to go to the ER if any recurrence. She subsequently had another episode of near syncope at a [employer] but did not seek medical help. She is physically active and denies any chest pain, shortness of breath with exertion, orthopnea, PND, or lower extremity edema. She does have joint-related issues including her back, hip, and knees. A 14-day monitor was ordered, which showed multiple runs of SVT. She was started on metoprolol 25 milligrams once daily. After starting metoprolol, she reported different symptoms of lightheadedness and dizziness; her (who is a retired family physician) felt that the symptoms might have been secondary to bradycardia. She decreased her metoprolol to half a tablet once daily and reported resolution of those symptoms. She continued to have intermittent episodes of palpitations and presyncopal symptoms indicating SVT episodes. 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 Rodriguez on October 26, 2024. She was discharged on Eliquis, recommended to continue for 30 days and stop, metoprolol succinate 12.5 milligrams daily was continued post-ablation. Diagnostic Results: - 30-day event monitor (December 01-December 30, 2024): - Sinus rhythm with episodes of SVT, heart rates up to 180 BPM. - Heart rates in the 70s-90s when in sinus rhythm. - 14-day monitor: - Multiple runs of SVT. - Longest run about 34 minutes with an average heart rate of 131 BPM. - Fastest event at a rate of 214 BPM. Interval History: The patient is an 84-year-old female with a history of AVNRT and typical atrial flutter, status post ablation, presenting for follow-up. She underwent ablation of the slow pathway for AVNRT and CTI ablation for new-onset typical atrial flutter with Dr. Rodriguez on 10/26/2024. She was discharged on Eliquis, recommended to continue for 30 days, and also to continue metoprolol succinate 12.5 mg daily. A 30-day event monitor worn from 12/01/2024 to 12/30/2024 showed sinus rhythm with episodes of SVT, with heart rates up to 180 bpm. When in sinus rhythm, her heart rates were in the 70s-90s. Recently, she has been experiencing episodes of presyncope and palpitations, with the most recent episodes occurring late last week, including two episodes in one day at a grocery store. These episodes last for seconds, and she describes feeling like the blood is rushing from her head and starting to feel like she is going to pass out. She notes that the Valsalva maneuver has been effective in terminating some episodes. She denies any episodes of syncope. She has not had any falls recently. She reports that she had started taking an oral medication at night, Xylimelts, which she believes may interact with metoprolol. She reduced the dosage from two to one per night and has since stopped taking it for a couple of days to see if it affects her symptoms. She has not had any episodes since stopping the medication, but also reports it has only been a few days. She denies any chest pain, dyspnea on exertion, orthopnea, PND, or lower extr, emity edema. She is physically active but has joint-related issues, including her back, hip, and knees, she ambulates with a 1 point cane. She denies any recent illness, fevers, chills, coughing, or wheezing. She has not experienced any bleeding problems while on Eliquis, such as hematuria, hematochezia, or epistaxis. Reviewed the monitor results with cortes Urban (more content not included)... Normal [facility] ECG B/O W INTERP (MED OFFICE )on 02-15-2025 normal sinus rhythm, rightward axis, 65 bpm, VT 130 ms, QRS 68 ms, QT/QTc 392/407 ms. [facility] Ava 02-10-2025 SEEMAN Telephone (INTMWS) TANIA ROMERO ([id number]) 1940 F Date Time Provider Department 02/10/25 BG CHAVARRIA INTMWS During your visit today, we recorded the following information about you: Nika Joshi RN 02/10/2025 2:20 PM Signed Oxana calling from [email or web address] (office of Dr. Mp Haile) and states she will be faxing PCP office a clearance form for provider to complete for an upcoming procedure pt wishes to have. States pt is interested in extractions and dental implants. ALEX Fernandez Janice, LPN 02/10/2025 3:42 PM Signed Rec'd and to pcp to review. Bg Chavarria MD 02/13/2025 2:10 PM Signed Attached snap shot, completed and signed Beata Rod LPN 02/15/2025 8:44 AM Signed All faxed back to the number on the form. Allergies As of Date: 02/10/2025 Noted Allergy Reaction AMOXICILLIN 06/24/2015 2 - Rash CLINDAMYCIN 07/12/2006 15 - Contraindication-[facility]ica [facility]* Comments: C diff COMPAZINE (PROCHLORPERAZINE EDISY*07/11/2006 5 - Intolerance PENICILLINS 07/11/2006 2 - Rash 5 - Intolerance Comments: Rash after 4 days of antibiotic . PROCHLORPERAZINE 06/30/2023 13 - Dystonia Date Reviewed: 11/20/2024 Reviewed by: Lizzette Cotter MA - Fully Assessed Reason for Visit: [facility] Dental-Form [Other] Prescriptions as of 02/15/2025 - alendronate (FOSAMAX) 70 mg tablet Take 1 tablet by mouth one time a week. Take with a full glass of water, on an empty stomach; do NOT lie down for 30minutes. - metFORMIN ER (GLUCOPHAGE XR) 500 mg 24 hr tablet Take 1 tablet by mouth daily with breakfast. - meloxicam (MOBIC) 7.5 mg tablet Take 1 tablet by mouth once daily. - metoprolol succinate ER (TOPROL XL) 25 mg 24 hr tablet Take 0.5 tablets by mouth once daily. - cyanocobalamin 1,000 mcg/mL USE ONE ML INTO THE MUSCLE ONCE MONTHLY - Syringe with Needle, Disp, (BD LUER-ISABEL SYRINGE) 3 mL 25 gauge x 1 Use for b12 injection monthly - Cholecalciferol, Vitamin D3, 125 mcg (5,000 unit) cap Hold for 1 month then take once weekly - Lactobacillus acidophilus (PROBIOTIC ORAL) Take by mouth. - calcium carbonate (TUMS ORAL) Take by mouth as needed. - Lactase (LACTAID FAST ACT) 9,000 unit chew Uses as needed - conjugated estrogens (PREMARIN) vaginal cream Use 0.5 g vaginally as needed. for 3 weeks then off for 1 week Problem List As Of Date 02/10/2025 Noted Resolved Family history of malignant neoplasm of gastroi*05/06/2012 Elevated fasting glucose [R73.01] 05/04/2013 03/24/2024 Low vitamin B12 level [R79.89] Primary osteoarthritis of left hip [M16.12] 02/03/2021 Multiple sclerosis (HCC) [G35] 05/31/2016 Abnormality of gait [R26.9] 06/21/2016 Osteopenia [M85.80] Chronic midline low back pain without sciatica *04/29/2019 Primary osteoarthritis of both hips [M16.0] 06/07/2020 Type 2 diabetes mellitus, without long-term cur*01/24/2021 GERD (gastroesophageal reflux disease) [K21.9] 01/24/2021 Abnormal EKG [R94.31] 01/24/2021 Vitamin D deficiency [E55.9] 03/04/2022 Elevated LDL cholesterol level [E78.00] 03/04/2022 Colon cancer screening [Z12.11] 03/04/2022 Trochanteric bursitis of right hip [M70.61] 02/08/2023 SI (sacroiliac) joint inflammation (HCC) [M46.1]06/24/2023 Former smoker [Z87.891] 06/26/2023 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] 06/27/2023 06/28/2023 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] 06/29/2023 11/19/2023 Aftercare [Z51.89] 06/30/2023 07/08/2023 Acute blood loss anemia [D62] 07/01/2023 03/24/2024 Status post right hip replacement [Z96.641] 07/04/2023 Status post hip replacement, right [Z96.641] 07/24/2023 Other acute postoperative pain [G89.18] 08/01/2023 03/24/2024 Paroxysmal SVT (supraventricular tachycardia) (*07/28/2024 Typical atrial flutter (HCC) [I48.3] 10/27/2024 S/P catheter ablation of slow pathway [Z98.890,*10/27/2024 Stroke risk [Z91.89] 10/27/2024 Encounter Status:Closed by BEATA ROD [facility] (AGCARDPOB ) TANIA ROMERO ([id number]) 1940 F Date Time Provider Department 02/01/25 JOSUE FAGAN During your visit today, we recorded the following information about you: Josue Fagan APRN.MORTGAGE LOAN ASSISTANT 02/01/2025 12:26 PM Signed Called to discuss post ablation 30-day event monitor results with Mrs. Romero. She had an optometry appointment earlier today and her phone was turned off and fortunately I was able to reach her Dr. Ochoa. Mrs. Romero reports she has been feeling considerably better post AVNRT with CTI ablation on 10/26/2024. We reviewed event monitor results which revealed two episodes of paroxysmal SVT with a rate of 170 on 12/02/2024 as well as 12/23/2024. No definitive atrial flutter. Some accelerated brief atrial runs. Patient reports her symptoms are much improved post ablation. She has an episode maybe once a week but indicates these are very brief lasting a few seconds. She experiences heart racing and some lightheadedness. She sits down when these occur with subsequent resolution. She denies any near-syncope. She does deal with back pain but has been walking her dog once a week for anywhere from a half to a mile. She plans to increase this with improving weather. Patient remains on Toprol-XL 12.5 mg daily. Patient was reminded of upcoming appointment with EP on 02/15/2025 at 1600. Patient indicated that answered all her questions she had nothing further at this time. Josue Fagan APRN.MORTGAGE LOAN ASSISTANT February 01, 2025 12:25 PM Allergies As of Date: 02/01/2025 Noted Allergy Reaction AMOXICILLIN 06/24/2015 2 - Rash CLINDAMYCIN 07/12/2006 15 - Contraindication-Medica [facility]* Comments: C diff COMPAZINE (PROCHLORPERAZINE EDISY*07/11/2006 5 - Intolerance PENICILLINS 07/11/2006 2 - Rash 5 - Intolerance Comments: Rash after 4 days of antibiotic . PROCHLORPERAZINE 06/30/2023 13 - Dystonia Date Reviewed: 11/20/2024 Reviewed by: Lizzette Cotter MA - Fully Assessed Reason for Visit: Results [95] Prescriptions as of 02/01/2025 - alendronate (FOSAMAX) 70 mg tablet Take 1 tablet by mouth one time a week. Take with a full glass of water, on an empty stomach; do NOT lie down for 30minutes. - metFORMIN ER (GLUCOPHAGE XR) 500 mg 24 hr tablet Take 1 tablet by mouth daily with breakfast. - meloxicam (MOBIC) 7.5 mg tablet Take 1 tablet by mouth once daily. - metoprolol succinate ER (TOPROL XL) 25 mg 24 hr tablet Take 0.5 tablets by mouth once daily. - cyanocobalamin 1,000 mcg/mL USE ONE ML INTO THE MUSCLE ONCE MONTHLY - Syringe with Needle, Disp, (BD LUER-ISABEL SYRINGE) 3 mL 25 gauge x 1 Use for b12 injection monthly - Cholecalciferol, Vitamin D3, 125 mcg (5,000 unit) cap Hold for 1 month then take once weekly - Lactobacillus acidophilus (PROBIOTIC ORAL) Take by mouth. - calcium carbonate (TUMS ORAL) Take by mouth as needed. - Lactase (LACTAID FAST ACT) 9,000 unit chew Uses as needed - conjugated estrogens (PREMARIN) vaginal cream Use 0.5 g vaginally as needed. for 3 weeks then off for 1 week Problem List As Of Date 02/01/2025 Noted Resolved Family history of malignant neoplasm of gastroi*05/06/2012 Elevated fasting glucose [R73.01] 05/04/2013 03/24/2024 Low vitamin B12 level [R79.89] Primary osteoarthritis of left hip [M16.12] 02/03/2021 Multiple sclerosis (HCC) [G35] 05/31/2016 Abnormality of gait [R26.9] 06/21/2016 Osteopenia [M85.80] Chronic midline low back pain without sciatica *04/29/2019 Primary osteoarthritis of both hips [M16.0] 06/07/2020 Type 2 diabetes mellitus, without long-term cur*01/24/2021 GERD (gastroesophageal reflux disease) [K21.9] 01/24/2021 Abnormal EKG [R94.31] 01/24/2021 Vitamin D deficiency [E55.9] 03/04/2022 Elevated LDL cholesterol level [E78.00] 03/04/2022 Colon cancer screening [Z12.11] 03/04/2022 Trochanteric bursitis of right hip [M70.61] 02/08/2023 SI (sacroiliac) joint inflammation (HCC) [M46.1]06/24/2023 Former smoker [Z87.891] 06/26/2023 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] 06/27/2023 06/28/2023 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] 06/29/2023 11/19/2023 Aftercare [Z51.89] 06/30/2023 07/08/2023 Acute blood loss anemia [D62] 07/01/2023 03/24/2024 Status post right hip replacement [Z96.641] 07/04/2023 Status post hip replacement, right [Z96.641] 07/24/2023 Other acute postoperative pain [G89.18] 08/01/2023 03/24/2024 Paroxysmal SVT (supraventricular tachycardia) (*07/28/2024 Typical atrial flutter (HCC) [I48.3] 10/27/2024 S/P catheter ablation of slow pathway [Z98.890,*10/27/2024 Stroke risk [Z91.89] 10/27/2024 Encounter Status:Closed by JOSUE FAGAN on 02/01/25 [facility] CNPNon 01-01-2025 CNPN Telephone (AGCARDPOB ) TANIA ROMERO ([id number]) 1940 F Date Time Provider Department 01/01/25 JOSUE FAGAN AGCARDPOB During your visit today, we recorded the following information about you: Rosanna Prajapati RN 01/01/2025 8:18 AM Signed 12/30/24 monitor report scanned into [employer] for your review. ALEX Nicole Stacey, RN 01/27/2025 9:58 AM Signed Pt has upcoming OV 02/15/25 with Peri. Does anything need done with the monitor report at this time? Rosanna Prajapati RN Allergies As of Date: 01/01/2025 Noted Allergy Reaction AMOXICILLIN 06/24/2015 2 - Rash CLINDAMYCIN 07/12/2006 15 - Contraindication-Medica l [facility]* Comments: C diff COMPAZINE (PROCHLORPERAZINE EDISY*07/11/2006 5 - Intolerance PENICILLINS 07/11/2006 2 - Rash 5 - Intolerance Comments: Rash after 4 days of antibiotic . PROCHLORPERAZINE 06/30/2023 13 - Dystonia Date Reviewed: 11/20/2024 Reviewed by: Lizzette Cotter MA - Fully Assessed Reason for Visit: Results [95] Prescriptions as of 03/24/2025 - metoprolol succinate ER (TOPROL XL) 25 mg 24 hr tablet Take 0.5 tablets by mouth once daily. - apixaban (ELIQUIS) 2.5 mg tab(s) Take 1 tablet by mouth two times a day. - alendronate (FOSAMAX) 70 mg tablet Take 1 tablet by mouth one time a week. Take with a full glass of water, on an empty stomach; do NOT lie down for 30minutes. - metFORMIN ER (GLUCOPHAGE XR) 500 mg 24 hr tablet Take 1 tablet by mouth daily with breakfast. - meloxicam (MOBIC) 7.5 mg tablet Take 1 tablet by mouth once daily. - cyanocobalamin 1,000 mcg/mL USE ONE ML INTO THE MUSCLE ONCE MONTHLY - Syringe with Needle, Disp, (BD LUER-ISABEL SYRINGE) 3 mL 25 gauge x 1 Use for b12 injection monthly - Cholecalciferol, Vitamin D3, 125 mcg (5,000 unit) cap Hold for 1 month then take once weekly - Lactobacillus acidophilus (PROBIOTIC ORAL) Take by mouth. - calcium carbonate (TUMS ORAL) Take by mouth as needed. - Lactase (LACTAID FAST ACT) 9,000 unit chew Uses as needed Problem List As Of Date 01/01/2025 Noted Resolved Family history of malignant neoplasm of gastroi*05/06/2012 Elevated fasting glucose [R73.01] 05/04/2013 03/24/2024 Low vitamin B12 level [R79.89] Primary osteoarthritis of left hip [M16.12] 02/03/2021 Multiple sclerosis (HCC) [G35] 05/31/2016 Abnormality of gait [R26.9] 06/21/2016 Osteopenia [M85.80] Chronic midline low back pain without sciatica *04/29/2019 Primary osteoarthritis of both hips [M16.0] 06/07/2020 Type 2 diabetes mellitus, without long-term cur*01/24/2021 GERD (gastroesophageal reflux disease) [K21.9] 01/24/2021 Abnormal EKG [R94.31] 01/24/2021 Vitamin D deficiency [E55.9] 03/04/2022 Elevated LDL cholesterol level [E78.00] 03/04/2022 Colon cancer screening [Z12.11] 03/04/2022 Trochanteric bursitis of right hip [M70.61] 02/08/2023 SI (sacroiliac) joint inflammation (HCC) [M46.1]06/24/2023 Former smoker [Z87.891] 06/26/2023 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] 06/27/2023 06/28/2023 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] 06/29/2023 11/19/2023 Aftercare [Z51.89] 06/30/2023 07/08/2023 Acute blood loss anemia [D62] 07/01/2023 03/24/2024 Status post right hip replacement [Z96.641] 07/04/2023 Status post hip replacement, right [Z96.641] 07/24/2023 Other acute postoperative pain [G89.18] 08/01/2023 03/24/2024 Paroxysmal SVT (supraventricular tachycardia) (*07/28/2024 Typical atrial flutter (HCC) [I48.3] 10/27/2024 S/P catheter ablation of slow pathway [Z98.890,*10/27/2024 Stroke risk [Z91.89] 10/27/2024 Encounter Status:Closed by ROSANNA PR[facility]APATI [facility] (SARAHIPWS) TANIA ROMERO ([id number]) 1940 F Date Time Provider Department 12/18/24 11:30 AM ID NURSE WARRENWS During your visit today, we recorded the following information about you: ALIZA BIANCHI 12/18/2024 11:32 AM Signed Patient presents for COVID vaccine. Denies any problems at this time. Tolerated injection well. Aliza Bianchi LPN Allergies As of Date: 12/18/2024 Noted Allergy Reaction AMOXICILLIN 06/24/2015 2 - Rash CLINDAMYCIN 07/12/2006 15 - Contraindication-[facility]* Comments: C diff COMPAZINE (PROCHLORPERAZINE EDISY*07/11/2006 5 - Intolerance PENICILLINS 07/11/2006 2 - Rash 5 - Intolerance Comments: Rash after 4 days of antibiotic . PROCHLORPERAZINE 06/30/2023 13 - Dystonia Date Reviewed: 11/20/2024 Reviewed by: Lizzette Cotter MA - Fully Assessed Reason for Visit: Imm/Inj [58] Visit Diagnosis:Encounter for immunization [Z23] Order(s):[employer] COVID-19 VACCINE AGE 12+ YR (COMIRNATY) [[id number]] Order #: [id number] Prescriptions as of 12/18/2024 - alendronate (FOSAMAX) 70 mg tablet Take 1 tablet by mouth one time a week. Take with a full glass of water, on an empty stomach; do NOT lie down for 30minutes. - metFORMIN ER (GLUCOPHAGE XR) 500 mg 24 hr tablet Take 1 tablet by mouth daily with breakfast. - meloxicam (MOBIC) 7.5 mg tablet Take 1 tablet by mouth once daily. - metoprolol succinate ER (TOPROL XL) 25 mg 24 hr tablet Take 0.5 tablets by mouth once daily. - cyanocobalamin 1,000 mcg/mL USE ONE ML INTO THE MUSCLE ONCE MONTHLY - Syringe with Needle, Disp, (BD LUER-ISABEL SYRINGE) 3 mL 25 gauge x 1 Use for b12 injection monthly - Cholecalciferol, Vitamin D3, 125 mcg (5,000 unit) cap Hold for 1 month then take once weekly - Lactobacillus acidophilus (PROBIOTIC ORAL) Take by mouth. - calcium carbonate (TUMS ORAL) Take by mouth as needed. - Lactase (LACTAID FAST ACT) 9,000 unit chew Uses as needed - conjugated estrogens (PREMARIN) vaginal cream Use 0.5 g vaginally as needed. for 3 weeks then off for 1 week Problem List As Of Date 12/18/2024 Noted Resolved Family history of malignant neoplasm of gastroi*05/06/2012 Elevated fasting glucose [R73.01] 05/04/2013 03/24/2024 Low vitamin B12 level [R79.89] Primary osteoarthritis of left hip [M16.12] 02/03/2021 Multiple sclerosis (HCC) [G35] 05/31/2016 Abnormality of gait [R26.9] 06/21/2016 Osteopenia [M85.80] Chronic midline low back pain without sciatica *04/29/2019 Primary osteoarthritis of both hips [M16.0] 06/07/2020 Type 2 diabetes mellitus, without long-term cur*01/24/2021 GERD (gastroesophageal reflux disease) [K21.9] 01/24/2021 Abnormal EKG [R94.31] 01/24/2021 Vitamin D deficiency [E55.9] 03/04/2022 Elevated LDL cholesterol level [E78.00] 03/04/2022 Colon cancer screening [Z12.11] 03/04/2022 Trochanteric bursitis of right hip [M70.61] 02/08/2023 SI (sacroiliac) joint inflammation (HCC) [M46.1]06/24/2023 Former smoker [Z87.891] 06/26/2023 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] 06/27/2023 06/28/2023 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] 06/29/2023 11/19/2023 Aftercare [Z51.89] 06/30/2023 07/08/2023 Acute blood loss anemia [D62] 07/01/2023 03/24/2024 Status post right hip replacement [Z96.641] 07/04/2023 Status post hip replacement, right [Z96.641] 07/24/2023 Other acute postoperative pain [G89.18] 08/01/2023 03/24/2024 Paroxysmal SVT (supraventricular tachycardia) (*07/28/2024 Typical atrial flutter (HCC) [I48.3] 10/27/2024 S/P catheter ablation of slow pathway [Z98.890,*10/27/2024 Stroke risk [Z91.89] 10/27/2024 Encounter Status:Closed by ALIZA BIANCHI on 3/21/25 [facility]on 11-20-2024 [facility] Office Visit (INTMWS ) TANIA ROMERO ([id number]) 1940 F Date Time Provider Department 11/20/24 9:40 AM BG CHAVARRIA INTMWS During your visit today, we recorded the following information about you: Pulse Respiration Blood pressure Weight 72/minute 12/minute 118/80 51.4 kg Bg Chavarria MD 11/20/2024 12:42 PM Signed This note was created using MicroCHIPS[employer]. Subjective Tania Romero is a 84 year old female. Patient presents with: Follow Up: 4 months SUBJECTIVE: Tania Romero is a 84 year old year old lady here today for 4 month follow up appointment for review of medical conditions. Tania Romero is an 84-year-old female, with a history of AVNRT, atrial flutter, scoliosis, and recent URI, presenting for a 4-month follow-up visit. Tania Romero recently underwent an ablation for AVNRT and atrial flutter. She is currently on apixaban and metoprolol, managed by her turbine engine assembler. She reports occasional minor palpitations but otherwise feels well. She denies any pain or discomfort at the ablation site. She also reports experiencing lower back pain, which she attributes to her scoliosis. The pain is more pronounced as the day progresses, especially when she is standing or cooking. She notes that the pain is alleviated when she is lying down. She denies working on posture improvement. Tania reports issues with bowel movements, describing a sensation of incomplete evacuation. She notes that her stools are usually soft and of normal caliber, but she occasionally experiences loose stools. She denies experiencing small, hard stools or symptoms of vaginal prolapse. She admits to not drinking enough water daily but tries to eat a lot of vegetables and fruits. She recently recovered from a URI, which left her feeling fatigued from Saturday through Saturday. She used an OTC cough and cold medication to help her sleep during this period. She reports feeling better now and does not believe she is still infectious. 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 Rodriguez on 10/26/2024. Stroke risk 10/27/2024 Type 2 diabetes mellitus, without long-term current use of insulin ([facility]) 01/24/2021 Typical atrial flutter ([facility]) 10/27/2024 Current Outpatient Medications Medication Sig metoprolol succinate ER (TOPROL XL) 25 mg 24 hr tablet Take 0.5 tablets by mouth once daily. apixaban (ELIQUIS) 2.5 mg tab(s) Take 1 tablet by mouth two times a day. meloxicam (MOBIC) 7.5 mg tablet Take 1 tablet by mouth once daily. cyanocobalamin 1,000 mcg/mL USE ONE ML INTO THE MUSCLE ONCE MONTHLY alendronate (FOSAMAX) 70 mg tablet Take 1 tablet by mouth one time a week. Take with a full glass of water, on an empty stomach; do NOT lie down for 30minutes. metFORMIN ER (GLUCOPHAGE XR) 500 mg 24 hr tablet Take 1 tablet by mouth daily with breakfast. Syringe with Needle, Disp, (BD LUER-ISABEL SYRINGE) 3 mL 25 gauge x 1 Use for b12 injection monthly Cholecalciferol, Vitamin D3, 125 mcg (5,000 unit) cap Hold for 1 month then take once weekly Lactobacillus acidophilus (PROBIOTIC ORAL) Take by mouth. calcium carbonate (TUMS ORAL) Take by mouth as needed. Lactase (LACTAID FAST ACT) 9,000 unit chew Uses as needed conjugated estrogens (PREMARIN) vaginal cream Use 0.5 g vaginally as needed. for 3 weeks then off for 1 week No current facility-administered medications for this visit. Review of Systems Objective BP 118/80 Pulse 72 Resp 12 Wt 51.4 kg (113 lb 5.1 oz) SpO2 97% BMI 22.13 kg/m? Last 5 Encounter Wt Readings: Date: Wt: 11/20/2024 51.4 kg (113 lb 5.1 oz) 11/02/2024 51 kg (112 lb 7 oz) 09/24/2024 51.3 kg (113 lb) 09/24/2024 49.4 kg (109 lb) 07/28/2024 49.6 kg (109 lb 5.6 oz) No waist measurement recorded Estimated body mass index is 22.13 kg/m? as calculated from the following: Height as of 10/26/24: 152.4 cm (5'). Weight as of this encounter: 51.4 kg (113 lb 5.1 oz). Last 5 Encounter BP Readings: Date: BP: 11/20/2024 118/80 11/02/2024 129/72 10/26/2024 127/83 09/24/2024 101/51 09/24/2024 118/64 Physical Exam Constitutional: Appearance: Normal appearance. HENT: Head: Normocephalic. Eyes: Conjunctiva/sclera: Conjunctivae normal. Cardiovascular: Rate and Rhythm: Normal rate and regular rhythm. Heart sounds: Normal heart sounds. Pulmonary: Effort: Pulmonary effort is normal. Breath sounds: Normal breath sounds. Musculoskeletal: Right lower leg: No edema. Left lower leg: No edema. Skin: General: Skin is warm and dry. Neurologic (more content not included)... Normal [facility] CNOVon 11-02-2024 CNOV Office Visit (INTMWS ) TANIA ROMERO ([id number]) 1940 F Date Time Provider Department 11/02/24 11:00 AM LUIS MANUEL HERNANDEZ INTMWS During your visit today, we recorded the following information about you: Pulse Respiration Blood pressure Weight 67/minute 16/minute 129/72 51 kg Luis Manuel Hernandez APRN.DRAW HAND 11/02/2024 11:38 AM Signed SUBJECTIVE: Advance Directive Discussion due on 09/30/2024 HPI Tania Romero is a 84 year old female. 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 Admitted October 26, 2024 to October 27, 2024. Attending Provider: Russell Rodriguez MD Discharge summary excerpted: Tania is a pleasant 84-year-old female who underwent ablation of slow pathway for history of AVNRT as well as CTI ablation for new onset typical atrial flutter with Dr. Rodriguez on 10/26/2024. Procedure was tolerated well and there were no intra or postoperative complications. Plan is for 30 days of Eliquis at discharge as well as continuation of Toprol XL 12.5 mg daily. 30-day event monitor to be hooked up in 1 month. Patient was discharged without issue on 10/27/2024. Today reports some mild positional lightheadedness the first day or 2 after discharge now resolved. Current symptoms: None reported Taking Eliquis: yes Taking metoprolol succinate: yes one half tablet Scheduled for event monitor: not yet Scheduled for cardiology:yes Last 14 Encounter BP Readings: Date: BP: 11/02/2024 129/72 10/26/2024 127/83 09/24/2024 101/51 09/24/2024 118/64 07/28/2024 128/76 07/06/2024 133/74 05/18/2024 134/68 03/31/2024 144/80 03/24/2024 110/70 11/18/2023 112/74 07/15/2023 123/78 06/30/2023 159/86 06/27/2023 101/56 06/21/2023 88/53 DIABETES MELLITUS: Without report of excessive thirst or increased frequency of urination, chest pain or dyspnea , numbness, tingling or pain in extremities, new or unusual visual symptoms, low sugar/hypoglycemic reactions, weight loss/gain, lightheadedness/dizzine ss and bowel changes/loose stools. Patient's last HgA1C was Hemoglobin A1C (%) Date Value 07/23/2024 6.5 03/11/2024 6.5 06/27/2021 6.9 10/17/2020 6.2 Hemoglobin A1C (POCT) (%) Date Value 11/18/2023 6.6 11/09/2022 6.3 Review of Systems Constitutional: Negative. Cardiovascular: Negative. Endocrine: Negative. Objective BP 129/72 Pulse 67 Resp 16 Wt 51 kg (112 lb 7 oz) SpO2 97% BMI 21.96 kg/m? Physical Exam Vitals and nursing note reviewed. Constitutional: Appearance: Normal appearance. HENT: Head: Normocephalic and atraumatic. Eyes: Conjunctiva/sclera: Conjunctivae normal. Neck: Thyroid: No thyromegaly. Vascular: Normal carotid pulses. No JVD. Cardiovascular: Rate and Rhythm: Normal rate and regular rhythm. Pulses: Normal pulses. Carotid pulses are 2+ on the right side and 2+ on the left side. Radial pulses are 2+ on the right side and 2+ on the left side. Heart sounds: Normal heart sounds. Pulmonary: Effort: Pulmonary effort is normal. Abdominal: General: Bowel sounds are normal. Palpations: Abdomen is soft. Musculoskeletal: Right lower leg: No edema. Left lower leg: No edema. Skin: General: Skin is warm and dry. Neurological: General: No focal deficit present. Mental Status: She is alert and oriented to person, place, and time. ALLERGIES Allergen Reactions Amoxicillin Rash Clindamycin Contraindication-Medica l [facility] C diff Compazine [Prochlor* Intolerance Penicillins Rash, Intolerance Rash after 4 days of antibiotic . Prochlorperazine Dystonia MEDICATIONS: metoprolol succinate ER (TOPROL XL) 25 mg 24 hr tablet Take 0.5 tablets by mouth once daily. apixaban (ELIQUIS) 2.5 mg tab(s) Take 1 tablet by mouth two times a day. meloxicam (MOBIC) 7.5 mg tablet Take 1 tablet by mouth once daily. cyanocobalamin 1,000 mcg/mL USE ONE ML INTO THE MUSCLE ONCE MONTHLY alendronate (FOSAMAX) 70 mg tablet Take 1 tablet by mouth one time a week. Take with a full glass of water, on an empty stomach; do NOT lie down for 30minutes. metFORMIN ER (GLUCOPHAGE XR) 500 mg 24 hr tablet Take 1 (more content not included)... [facility]AGCARDPOB ) TANIA ROMERO ([id number]) 1940 F Date Time Provider Department 10/30/24 JOSUE FAGAN During your visit today, we recorded the following information about you: Josue Fagan APRN.MORTGAGE LOAN ASSISTANT 10/30/2024 4:26 PM Signed Patient underwent ablation of slow pathway as well as typical atrial flutter ablation with Dr. Rodriguez on 10/26/2024. Plan is for 30 days of Eliquis post ablation. As discussed with patient orders placed for 30-day event monitor to be hooked up in 1 month. Follow-up in 3 months in office with CARMEL. Josue Harkins APRN.MORTGAGE LOAN ASSISTANT October 30, 2024 4:25 PM Olimpia Herzog 11/02/2024 7:53 AM Signed Scheduled Olimpia Herzog Allergies As of Date: 10/30/2024 Noted Allergy Reaction AMOXICILLIN 06/24/2015 2 - Rash CLINDAMYCIN 07/12/2006 15 - Contraindication-[facility]* Comments: C diff COMPAZINE (PROCHLORPERAZINE EDISY*07/11/2006 5 - Intolerance PENICILLINS 07/11/2006 2 - Rash 5 - Intolerance Comments: Rash after 4 days of antibiotic . PROCHLORPERAZINE 06/30/2023 13 - Dystonia Date Reviewed: 10/26/2024 Reviewed by: Bill Humphries RN - Fully Assessed Reason for Visit: Appointment [186] Orders [681] Primary Visit Diagnosis:S/P catheter ablation of slow pathway [Z98.890, Z86.79] Other Visit Diagnoses:Paroxysmal SVT (supraventricular tachycardia) (HCC) [I47.10] Typical atrial flutter (HCC) [I48.3] Order(s):EVENT MONITOR [[id number]] Order #: [id number]: 1 Prescriptions as of 11/02/2024 - metoprolol succinate ER (TOPROL XL) 25 mg 24 hr tablet Take 0.5 tablets by mouth once daily. - apixaban (ELIQUIS) 2.5 mg tab(s) Take 1 tablet by mouth two times a day. - meloxicam (MOBIC) 7.5 mg tablet Take 1 tablet by mouth once daily. - cyanocobalamin 1,000 mcg/mL USE ONE ML INTO THE MUSCLE ONCE MONTHLY - alendronate (FOSAMAX) 70 mg tablet Take 1 tablet by mouth one time a week. Take with a full glass of water, on an empty stomach; do NOT lie down for 30minutes. - metFORMIN ER (GLUCOPHAGE XR) 500 mg 24 hr tablet Take 1 tablet by mouth daily with breakfast. - Syringe with Needle, Disp, (BD LUER-ISABEL SYRINGE) 3 mL 25 gauge x 1 Use for b12 injection monthly - Cholecalciferol, Vitamin D3, 125 mcg (5,000 unit) cap Hold for 1 month then take once weekly - Lactobacillus acidophilus (PROBIOTIC ORAL) Take by mouth. - calcium carbonate (TUMS ORAL) Take by mouth as needed. - Lactase (LACTAID FAST ACT) 9,000 unit chew Uses as needed - conjugated estrogens (PREMARIN) vaginal cream Use 0.5 g vaginally as needed. for 3 weeks then off for 1 week Problem List As Of Date 10/30/2024 Noted Resolved Family history of malignant neoplasm of gastroi*05/06/2012 Elevated fasting glucose [R73.01] 05/04/2013 03/24/2024 Low vitamin B12 level [R79.89] Primary osteoarthritis of left hip [M16.12] 02/03/2021 Multiple sclerosis (HCC) [G35] 05/31/2016 Abnormality of gait [R26.9] 06/21/2016 Osteopenia [M85.80] Chronic midline low back pain without sciatica *04/29/2019 Primary osteoarthritis of both hips [M16.0] 06/07/2020 Type 2 diabetes mellitus, without long-term cur*01/24/2021 GERD (gastroesophageal reflux disease) [K21.9] 01/24/2021 Abnormal EKG [R94.31] 01/24/2021 Vitamin D deficiency [E55.9] 03/04/2022 Elevated LDL cholesterol level [E78.00] 03/04/2022 Colon cancer screening [Z12.11] 03/04/2022 Trochanteric bursitis of right hip [M70.61] 02/08/2023 SI (sacroiliac) joint inflammation (HCC) [M46.1]06/24/2023 Former smoker [Z87.891] 06/26/2023 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] 06/27/2023 06/28/2023 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] 06/29/2023 11/19/2023 Aftercare [Z51.89] 06/30/2023 07/08/2023 Acute blood loss anemia [D62] 07/01/2023 03/24/2024 Status post right hip replacement [Z96.641] 07/04/2023 Status post hip replacement, right [Z96.641] 07/24/2023 Other acute postoperative pain [G89.18] 08/01/2023 03/24/2024 Paroxysmal SVT (supraventricular tachycardia) (*07/28/2024 Typical atrial flutter (HCC) [I48.3] 10/27/2024 S/P catheter ablation of slow pathway [Z98.890,*10/27/2024 Stroke risk [Z91.89] 10/27/2024 Encounter Status:Closed by JOSUE FAGAN on 10/30/24 [facility] ANES POSTPROC EVALon 025 ANES POSTPROC EVAL HNO ID: [id number] Author: DOROTHY TERAN MD Service: Anesthesiology Author Type: Anesthesiologist Type: Anesthesia Postprocedure Evaluation Filed: 10/27/2024 14:43 Note Text: POST ANESTHESIA EVALUATION NOTE : 1940 Procedure Summary Date: 10/26/24 Room / Location: [facility] 02 / [place] EP LAB Anesthesia Start: 08 Anesthesia Stop: 1443 Procedure: COMPLETE EPS W/SVT ABL W/WO 3D MAP LA PACE REC Diagnosis: Paroxysmal SVT (supraventricular tachycardia) (HCC) Postural dizziness with presyncope (Paroxysmal SVT (supraventricular tachycardia) (HCC) [I47.10]) (Postural dizziness with presyncope [R42, R55]) Surgeons: Russell Rodriguez MD Responsible Provider: Dorothy Teran MD Anesthesia Type: MAC ASA Status: 3 Anesthesia Type: MAC Last Vitals Vitals Value Taken Time BP 101/51 10/27/24 1121 Temp 36.3 ?C (97.4 ?F) 10/27/24 1121 Pulse 61 10/27/24 1121 Resp 18 10/27/24 1121 SpO2 93 % 10/27/24 1121 Post Anesthesia Patient Status Anticipated Disposition: inpatient floor planned admission. Neurological Status: aware and responsive. Pulmonary Status: breathing comfortably on room air Airway Control: returned to baseline unsupported. Cardiovascular Status: stable. Pain Management: clinically adequate Postoperative Hydration: acceptable. Intraoperative Events: no significant anesthesia events Post Operative Nausea/Vomiting Status: no significant post operative nausea or vomiting Recommendation: further care per PACU/ICU/floor team. Anesthesia Observations No Documentation SIGNATURE: Dorothy Teran MD PATIENT NAME: Tania Romero DATE: October 27, 2024 TIME: 2:42 PM CSN: [id number] Normal [facility] Basic metabolic 2000 panelon 10-27-2024 Anion gap [Moles/Vol] 9 mmol/L Normal 8-15 [facility] Comment on above: Order Comment: Speci men Type: BLOOD SPECIMEN Ordering Facility: [facility] Address: [address] [place] [address] Performed By: #### 2 4321-2 #### [facility] CLIA [id number] [address] [place] [address] [place] Calcium [Mass/Vol] 8.4 mg/dL Low 8.5-10.2 [facility] Comment on above: Order Comment: Speci men Type: BLOOD SPECIMEN Ordering Facility: [facility] Address: [address] [place] [address] Performed By: #### 2 4321-2 #### [facility] CLIA [id number] [address] [place] Chloride [Moles/Vol] 106 mmol/L Normal 98-107 [facility] Comment on above: Order Comment: Speci men Type: BLOOD SPECIMEN Ordering Facility: [facility] Address: [address] [place] [address] Performed By: #### 2 4321-2 #### [facility] CLIA [id number] [address] [place] CO2 [Moles/Vol] 27 mmol/L Normal 22-30 [facility] Comment on above: Order Comment: Speci men Type: BLOOD SPECIMEN Ordering Facility: [facility] Address: [address] [place] [address] Performed By: #### 2 4321-2 #### [facility] CLIA [id number] [address] [place] Creatinine [Mass/Vol] 0.89 mg/dL Normal 0.58-0.96 [facility] Comment on above: Order Comment: Speci men Type: BLOOD SPECIMEN Ordering Facility: [facility] Address: [address] [place] [address] Performed By: #### 2 4321-2 #### [facility] CLIA [id number] [address] Creatinine and Glomerular filtration rate.predicted panel (S/P/Bld) 64 mL/min/1.73m??? Normal >=60 [facility] Comment on above: Order Comment: Speci men Type: BLOOD SPECIMEN Ordering Facility: [facility] Address: [address] [place] [address] Result Comment: Alice mated Glomerular Filtration Rate (eGFR) is calculated using the 2020 CKD-EPI creatinine equation. This equation utilizes serum creatinine, sex, and age as parameters. The creatinine assay has traceable calibration to isotope dilution-mass spectrometry. Refer to KDIGO guidelines for clinical interpretation. In patients with unstable renal function, e.g. those with acute kidney injury, the eGFR may not accurately reflect actual GFR. Performed By: #### 2 4321-2 #### [facility] CLIA [id number] [address] [place] [address] [place] Glucose [Mass/Vol] 104 mg/dL High 74-99 [facility] Comment on above: Order Comment: Selvin men Type: BLOOD SPECIMEN Ordering Facility: [facility] Address: [address] [place] [address] Result Comment: The [place] Diabetes Association (ADA) provides guidance for cutoff values for fasting glucose and random glucose. The ADA defines fasting as no caloric intake for at least 8 hours. Fasting plasma glucose results between 100 to 125 mg/dL indicate increased risk for diabetes (prediabetes). Fasting plasma glucose results greater than or equal to 126 mg/dL meet the criteria for diagnosis of diabetes. In the absence of unequivocal hyperglycemia, results should be confirmed by repeat testing. In a patient with classic symptoms of hyperglycemia or hyperglycemic crisis, random plasma glucose results greater than or equal to 200 mg/dL meet the criteria for diagnosis of diabetes. Reference: Standards of Medical Care in Diabetes 2016, [place] Diabetes Association. Diabetes Care. 2016.39(Suppl 1). Performed By: #### 2 4321-2 #### [facility] CLIA [id number] [address] [place] [address] [place] Potassium [Moles/Vol] 3.9 mmol/L Normal 3.7-5.1 [facility] Comment on above: Order Comment: Selvin frazier Type: BLOOD SPECIMEN Ordering Facility: [facility] Address: [address] [id number] Performed By: #### 2 4321-2 #### [facility] CLIA [id number] [address] [place] [address] [place] Sodium [Moles/Vol] 142 mmol/L Normal 136-144 [facility] Comment on above: Order Comment: Selvin men Type: BLOOD SPECIMEN Ordering Facility: [facility] Address: [address] [place] [address] Performed By: #### 2 4321-2 #### [facility] CLIA [id number] [address] STATES [facility] Urea nitrogen [Mass/Vol] 25 mg/dL High 7-21 [facility] Comment on above: Order Comment: Speci men Type: BLOOD SPECIMEN Ordering Facility: [facility] Address: [address] [place] [address] Performed By: #### 2 4321-2 #### [facility] CLIA [id number] [address] CBC panel Auto (Bld)on 10-27 Erythrocyte distribution width (RBC) [Ratio] 13.6 % Normal 11.5-15.0 [facility] Comment on above: Order Comment: Speci men Type: BLOOD SPECIMENOrdering Facility: [facility] Address: [address] [place] [address] Performed By: #### 5 8410-2 ####[facility]ORYCLIA [id number] [address] Hematocrit (Bld) [Volume fraction] 32.0 % Low 36.0-46.0 [facility] Comment on above: Order Comment: Speci men Type: BLOOD SPECIMENOrdering Facility: [facility] Address: [address] [place] [address] Performed By: #### 5 8410-2 ####[facility]ORYCLIA [id number] [address] Hemoglobin (Bld) [Mass/Vol] 10.3 g/dL Low 11.5-15.5 [facility] Comment on above: Order Comment: Speci men Type: BLOOD SPECIMENOrdering Facility: [facility] Address: [address] [place] [address] Performed By: #### 5 8410-2 ####[facility]ORYCLIA [id number] [address] MCH (RBC) [Entitic mass] 28.5 pg Normal 26.0-34.0 [facility] Comment on above: Order Comment: Speci men Type: BLOOD SPECIMENOrdering Facility: [facility] Address: [address] [place] [address] Performed By: #### 5 8410-2 ####[facility]ORYCLIA [id number] [address] STATES OF [facility] MCHC (RBC) [Mass/Vol] 32.2 g/dL Normal 30.5-36.0 [facility] Comment on above: Order Comment: Speci men Type: BLOOD SPECIMENOrdering Facility: [facility] Address: [address] [place] [address] Performed By: #### 5 8410-2 ####[facility]ORYCLIA [id number] [address] [place] MCV (RBC) [Entitic vol] 88.6 fL Normal 80.0-100.0 [facility] Comment on above: Order Comment: Speci men Type: BLOOD SPECIMENOrdering Facility: [facility] Address: [address] [place] [address] Performed By: #### 5 8410-2 ####[facility]ORYCLIA [id number] [address] Nucleated RBC (Bld) [#/Vol] 10*3/uL Normal <0.01 [facility] Comment on above: Order Comment: Speci men Type: BLOOD SPECIMENOrdering Facility: [facility] Address: [address] [place] [address] Performed By: #### 5 8410-2 ####[facility]ORYCLIA [id number] [address] [place] Platelet mean volume (Bld) [Entitic vol] 8.9 fL Low 9.0-12.7 [facility] Comment on above: Order Comment: Speci men Type: BLOOD SPECIMENOrdering Facility: [facility] Address: [address] [place] [address] Performed By: #### 5 8410-2 ####[facility]ATORYCLIA [id number] [address] OF [facility] Platelets (Bld) [#/Vol] 170 10*3/uL Normal 150-400 [facility] Comment on above: Order Comment: Selvin frazier Type: BLOOD SPECIMENOrdering Facility: [facility] Address: [address] [place] [address] Performed By: #### 5 8410-2 ####[facility]ATORYCLIA [id number] [address] RBC (Bld) [#/Vol] 3.61 10*6/uL Low 3.90-5.20 [facility] Comment on above: Order Comment: Speci men Type: BLOOD SPECIMENOrdering Facility: [facility] Address: [address] [place] [address] Performed By: #### 5 8410-2 ####[facility]ATORYCLIA [id number] [address] WBC (Bld) [#/Vol] 7.71 10*3/uL Normal 3.70-11.00 [facility] Comment on above: Order Comment: Selvin frazier Type: BLOOD SPECIMENOrdering Facility: [facility] Address: [address] [place] [address] Performed By: #### 5 8410-2 ####[facility]ATORYCLIA [id number] [address] CNDSon 10-27-2024 CNDS HNO ID: [id number] Author: JOSUE FAGAN APRN.MORTGAGE LOAN ASSISTANT Service: Electrophysiology Author Type: Nurse Practitioner Type: Discharge Summary Filed: 10/27/2024 13:13 Note Text: Attestation signed by Russell Rodriguez MD at 10/27/2024 3:21 PM Reviewed case. Agree with evaluation and plan of care as outlined by the LASER SYSTEMS ENGINEER, as we discussed. DISCHARGE SUMMARY PATIENT NAME: Tania Romero Code Status: Prior Highest Readmission Risk Score: 10 The 30 day readmissions risk score is derived from an internally validated risk model which evaluates patient level characteristics, utilization history, medication orders and lab results up until the day of discharge. Patients with a score of 40 or above are considered highest risk for readmission. Specific patient level drivers will be listed at the bottom of the summary. 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 Rodriguez on 10/26/2024. Procedure was tolerated well and there were no intra or postoperative complications. Plan is for 30 days of Eliquis at discharge as well as continuation of Toprol XL 12.5 mg daily. 30-day event monitor to be hooked up in 1 month. Patient was discharged without issue on 10/27/2024. OTHER PROBLEMS/DIAGNOSIS: Principal Problem: S/P catheter ablation of slow pathway Active Problems: Multiple sclerosis (HCC) Paroxysmal SVT (supraventricular tachycardia) (HCC) Typical atrial flutter (HCC) Stroke risk Discharge Disposition Activity When You Leave the Hospital Do not sit for long periods of time with your arms or legs bent May drive 24 hours after discharge home. No lifting greater than 5-10 pounds for 5-7 days No sexual activity for: 1 week. No strenuous activity, exercise, or sports for 5-7 days, casual walking is fine No walking restrictions Take showers, not baths, until your wound is completely healed Diet Instructions Resume your pre-hospital diet For Pain When You Leave the Hospital Use acetaminophen (Tylenol) as recommended on the bottle Wound/Surgical Site Care Any bruising and bumps should disappear within 3-4 days Avoid lotions or powders Check your wound every day If the bruising expands or the bump enlarges please call your doctor Some bruising, soreness or a small bump under the skin at the inserion site is normal Wash your wound area with mild soap and water daily and gently pat dry with a towel Follow Up Appointments Follow-Up Appointment Dr. Rodriguez's office will call to schedule a follow up When: In 6 weeks Patient/Parents to call for appointment?: Russell Sherman MD [phone] [place] [address] PCP Requested Referral Additional Provider to Provider Information: Principal Problem: S/P catheter ablation of slow pathway (POA: Unknown) Assessment AND Plan: Mrs. 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 Rodriguez on 10/26/2024. Procedure was tolerated well and there were no intra or postoperative complications. Patient reports overall feeling well today. She did have an episode of palpitations/heart racing around 0900 which correlates with a 31 beat run of AVNRT. Otherwise sinus rhythm with rates in the 60s to 70s. Patient has a history of paroxysmal SVT dating back several years. Prior stress echo from August 2024 showed normal-sized left ventricle with normal systolic function with an ejection fraction of 65%. There were no significant valvular abnormalities. No evidence of ischemia. Patient has been ambulating in the halls without difficulty. Adequate urine output. Lengthy discussion was had with patient regarding post ablation restrictions as well as plan moving forward. We discussed due to challenging nature of ablation we were unable to completely ablate her AVNRT source. Additionally discussed during case patient went into new onset typical atrial flutter and subsequent CTI ablation was performed. [id number] of at least 4 secondary to age, gender, and diabetes. Patient was started on reduced dose Eliquis 2.5 mg twice daily. Patient verbalized understanding she is to go back on her Toprol-XL 12.5 mg daily. As was discussed with attending plan is (more content not included)... Normal [facility] ANES PRE-OPon 10-26-2024 ANES PRE-OP HNO ID: [id number] Author: DOROTHY TERAN MD Service: Anesthesiology Author Type: Anesthesiologist Type: Anesthesia Preprocedure Evaluation Filed: 10/26/2024 07:56 Note Text: ANESTHESIOLOGY DAY OF SURGERY NOTE : 1940 Procedure Information Date/Time: 10/26/2445 Procedure: COMPLETE EPS W/SVT ABL W/WO 3D MAP LA PACE REC - CARTO/RF *NEEDS HANDP ROU Location: [facility] 02 / [facility] Surgeons: Russell Rodriguez MD Estimated body mass index is 22.26 kg/m? as calculated from the following: Height as of this encounter: 152.4 cm (5'). Weight as of this encounter: 51.7 kg (113 lb 15.7 oz). Most recent hematocrit and potassium results: Hematocrit 38.9 07/06/2024 Potassium 4.6 07/23/2024 Relevant Problems CARDIO (+) Paroxysmal SVT (supraventricular tachycardia) (HCC) ENDO (+) Type 2 diabetes mellitus, without long-term current use of insulin (HCC) GI (+) GERD (gastroesophageal reflux disease) - SVT - last ook metop 10/21 TTE 08/2024 - EF 65%, no valve abnl I - PHYSICAL EVALUATION AIRWAY Patient intubated: No. Tracheostomy tube not present Mallampati: III. TM distance: >3 FB. Neck ROM: full ROM without neurological symptoms. Mouth opening: adequate. Short neck: no. Thick neck: no DENTAL Dental findings: teeth intact. II - ANESTHESIA PLAN ASA Score: 3 Anesthetic Plan: MAC The patient is not a current smoker. NPO Status: adequate Beta Hortensia Monitoring Plan Monitoring plan: standard ASA. Post Procedure Analgesic Plan Postoperative analgesic plan: parenteral or oral opioids and multimodal analgesia. Informed Consent Anesthetic risks, benefits, alternatives, personnel and consent discussed: yes. Patient / Responsible Libertarian agrees to proceed: yes Patient / Surrogate agrees to blood products: blood products not planned Potential Anesthesia issues that may suggest increased risk of complications or contraindication to planned procedure: none. Vitals Value Taken Time BP 153/74 10/26/24725 Pulse Resp Temp 36.2 ?C (97.2 ?F) 10/26/24725 SpO2 96 % 10/26/24725 No current facility-administered medications on file as of 10/26/2024. Outpatient Medications as of 10/26/2024 Medication Sig meloxicam (MOBIC) 7.5 mg tablet Take 1 tablet by mouth once daily. alendronate (FOSAMAX) 70 mg tablet Take 1 tablet by mouth one time a week. Take with a full glass of water, on an empty stomach; do NOT lie down for 30minutes. metFORMIN ER (GLUCOPHAGE XR) 500 mg 24 hr tablet Take 1 tablet by mouth daily with breakfast. Cholecalciferol, Vitamin D3, 125 mcg (5,000 unit) cap Hold for 1 month then take once weekly cyanocobalamin 1,000 mcg/mL USE ONE ML INTO THE MUSCLE ONCE MONTHLY metoprolol succinate ER (TOPROL XL) 25 mg 24 hr tablet Take 1 tablet by mouth once daily. Syringe with Needle, Disp, (BD LUER-ISABEL SYRINGE) 3 mL 25 gauge x 1 Use for b12 injection monthly Lactobacillus acidophilus (PROBIOTIC ORAL) Take by mouth. calcium carbonate (TUMS ORAL) Take by mouth as needed. Lactase (LACTAID FAST ACT) 9,000 unit chew Uses as needed conjugated estrogens (PREMARIN) vaginal cream Use 0.5 g vaginally as needed. for 3 weeks then off for 1 week I have interviewed and examined the patient. I have reviewed the medical record and/or the pre-anesthesia evaluation, pertinent labs, and test results. This contains updated information obtained within 48 hours of Surgery/Procedure. SIGNATURE: Dorothy Teran MD PATIENT NAME: Tania Romero DATE: October 26, 2024 TIME: 7:53 AM CSN: [id number] Normal [facility] Basic metabolic 2000 panelon 10-26-2024 Anion gap [Moles/Vol] 12 mmol/L Normal 8-15 Akr [facility] Comment on above: Order Comment: Speci men Type: BLOOD SPECIMENOrdering Facility: [facility] Address: [address] [place] [address] [place] [address] Performed By: #### 2 4321-2 ####[facility]ORYCLIA [id number] [address] [place] Calcium [Mass/Vol] 9.3 mg/dL Normal 8.5-10.2 [facility] Comment on above: Order Comment: Speci men Type: BLOOD SPECIMENOrdering Facility: [facility] Address: [address] [place] [address] Performed By: #### 2 4321-2 ####[facility]ORYCLIA [id number] [place] [address] [place] Chloride [Moles/Vol] 104 mmol/L Normal 98-107 [facility] Comment on above: Order Comment: Speci men Type: BLOOD SPECIMENOrdering Facility: [facility] Address: [address] [place] [address] Performed By: #### 2 4321-2 ####[facility]ORYCLIA [id number] [address] [place] CO2 [Moles/Vol] 26 mmol/L Normal 22-30 [facility] Comment on above: Order Comment: Speci men Type: BLOOD SPECIMENOrdering Facility: [facility] Address: [address] [place] [address] Performed By: #### 2 4321-2 ####[facility]ORYCLIA [id number] [address] [place] Creatinine [Mass/Vol] 1.05 mg/dL High 0.58-0.96 [facility] Comment on above: Order Comment: Speci men Type: BLOOD SPECIMENOrdering Facility: [facility] Address: [address] [place] [address] Performed By: #### 2 4321-2 ####[facility]ATORYCLIA [id number] [address] Creatinine and Glomerular filtration rate.predicted panel (S/P/Bld) 53 mL/min/1.73m??? Low >=60 [facility] Comment on above: Order Comment: Speci men Type: BLOOD SPECIMENOrdering Facility: [facility] Address: [address] [place] [address] Result Comment: Alice mated Glomerular Filtration Rate (eGFR) is calculated using the 2020 CKD-EPI creatinine equation. This equation utilizes serum creatinine, sex, and age as parameters. The creatinine assay has traceable calibration to isotope dilution-mass spectrometry. Refer to KDIGO guidelines for clinical interpretation. In patients with unstable renal function, e.g. those with acute kidney injury, the eGFR may not accurately reflect actual GFR. Performed By: #### 2 4321-2 ####[facility]ATORYCLIA [id number] [place] [address] [place] Glucose [Mass/Vol] 117 mg/dL High 74-99 [facility] Comment on above: Order Comment: Selvin frazier Type: BLOOD SPECIMENOrdering Facility: [facility] Address: [address] [place] [address] Result Comment: The [place] Diabetes Association (ADA) provides guidance for cutoff values for fasting glucose and random glucose. The ADA defines fasting as no caloric intake for at least 8 hours. Fasting plasma glucose results between 100 to 125 mg/dL indicate increased risk for diabetes (prediabetes). Fasting plasma glucose results greater than or equal to 126 mg/dL meet the criteria for diagnosis of diabetes. In the absence of unequivocal hyperglycemia, results should be confirmed by repeat testing. In a patient with classic symptoms of hyperglycemia or hyperglycemic crisis, random plasma glucose results greater than or equal to 200 mg/dL meet the criteria for diagnosis of diabetes. Reference: Standards of Medical Care in Diabetes 2016, [place] Diabetes Association. Diabetes Care. 2016.39(Suppl 1). Performed By: #### 2 4321-2 ####[facility]ATORYCLIA [id number] [place] [address] [place] Potassium [Moles/Vol] 3.8 mmol/L Normal 3.7-5.1 [facility] Comment on above: Order Comment: Selvin frazier Type: BLOOD SPECIMENOrdering Facility: [facility] Address: [address] [id number] Performed By: #### 2 4321-2 ####[facility]ATORYCLIA [id number] [address] STATES [facility] Sodium [Moles/Vol] 142 mmol/L Normal 136-144 [facility] Comment on above: Order Comment: Speci men Type: BLOOD SPECIMENOrdering Facility: [facility] Address: [address] [place] [address] Performed By: #### 2 4321-2 ####[facility]ORATORYCLIA [id number] [address] [place] Urea nitrogen [Mass/Vol] 30 mg/dL High 7-21 [facility] Comment on above: Order Comment: Speci men Type: BLOOD SPECIMENOrdering Facility: [facility] Address: [address] [place] [address] Performed By: #### 2 4321-2 ####[facility]ATORYCLIA [id number] [address] [place] CBC panel Auto (Bld)on 10-26 Erythrocyte distribution width (RBC) [Ratio] 13.6 % Normal 11.5-15.0 [facility] Comment on above: Order Comment: Speci men Type: BLOOD SPECIMEN [facility] Address: [address] [place] [address] Performed By: #### 5 8410-2 #### [facility] CLIA [id number] [address] [place] Hematocrit (Bld) [Volume fraction] 38.4 % Normal 36.0-46.0 [facility] Comment on above: Order Comment: Speci men Type: BLOOD SPECIMEN [facility] Address: [address] [place] [address] Performed By: #### 5 8410-2 #### [facility] CLIA [id number] [address] [place] Hemoglobin (Bld) [Mass/Vol] 12.6 g/dL Normal 11.5-15.5 [facility] Comment on above: Order Comment: Speci men Type: BLOOD SPECIMEN [facility] Address: [address] [place] [address] Performed By: #### 5 8410-2 #### [facility] CLIA [id number] [address] MCH (RBC) [Entitic mass] 29.0 pg Normal 26.0-34.0 [facility] Comment on above: Order Comment: Speci men Type: BLOOD SPECIMEN [facility] Address: [address] [place] [address] Performed By: #### 5 8410-2 #### [facility] CLIA [id number] [address] MCHC (RBC) [Mass/Vol] 32.8 g/dL Normal 30.5-36.0 [facility] Comment on above: Order Comment: Speci men Type: BLOOD SPECIMEN [facility] Address: [address] [place] [address] Performed By: #### 5 8410-2 #### [facility] CLIA [id number] [address] MCV (RBC) [Entitic vol] 88.5 fL Normal 80.0-100.0 [facility] Comment on above: Order Comment: Speci men Type: BLOOD SPECIMEN [facility]: [facility] Address: [address] [place] [address] Performed By: #### 5 8410-2 #### [facility] CLIA [id number] [address] Nucleated RBC (Bld) [#/Vol] 10*3/uL Normal <0.01 [facility] Comment on above: Order Comment: Speci men Type: BLOOD SPECIMEN [facility] Address: [address] [place] [address] Performed By: #### 5 8410-2 #### [facility] CLIA [id number] [address] [place] Platelet mean volume (Bld) [Entitic vol] 9.0 fL Normal 9.0-12.7 [facility] Comment on above: Order Comment: Speci men Type: BLOOD SPECIMEN [facility] Address: [address] [place] [address] Performed By: #### 5 8410-2 #### [facility] CLIA [id number] [address] Platelets (Bld) [#/Vol] 260 10*3/uL Normal 150-400 [facility] Comment on above: Order Comment: Speci men Type: BLOOD SPECIMEN [facility] Address: [address] [place] [address] Performed By: #### 5 8410-2 #### [facility] CLIA [id number] [address] RBC (Bld) [#/Vol] 4.34 10*6/uL Normal 3.90-5.20 [facility] Comment on above: Order Comment: Speci men Type: BLOOD SPECIMEN [facility] Address: [address] [place] [address] Performed By: #### 5 8410-2 #### [facility] CLIA [id number] [address] WBC (Bld) [#/Vol] 7.72 10*3/uL Normal 3.70-11.00 [facility] Comment on above: Order Comment: Speci men Type: BLOOD SPECIMEN [facility] Address: [address] [place] [address] Performed By: #### 5 8410-2 #### [facility] CLIA [id number] [address] HISTORY PHYSICALon HISTORY PHYSICAL HNO ID: [id number] Author: JOSUE FAGAN APRN.MORTGAGE LOAN ASSISTANT Service: Electrophysiology Author Type: Nurse Practitioner Type: H&P Filed: 10/26/2024 08:21 Note Text: HISTORY AND PHYSICAL: ELECTROPHYSIOLOGY SERVICE SERVICE DATE: 10/26/2024 SERVICE TIME: 7:47 AM PCP: Bg Chavarria MD ATTENDING: Russell Rodriguez MD Subjective CHIEF COMPLAINT: Paroxysmal SVT (supraventricular tachycardia) (HCC) [I47.10] Postural dizziness with presyncope [R42, R55] HISTORY OF PRESENT ILLNESS: Mrs. Romero is a pleasant 84 year old female with past medical history of vitamin D deficiency/osteopenia, hyperlipidemia, former smoker, type 2 diabetes mellitus, multiple sclerosis, expressive aphasia who presents today for SVT ablation with Dr. Rodriguez. Patient reports she has a history of paroxysmal SVT dating back several years. Within the past year she reports episodes have become more frequent and she tends to notice symptoms more often than in the past. Last year she was at the grocery store and experienced chest pain with lightheadedness/dizzine ss. EMS was called. Twelve-lead EKG was normal and her symptoms resolved. Patient experienced an episode of SVT last night. It was relatively brief and resolved after she laid down in bed and put her feet up. Typical symptoms associated with episodes include what she describes as a blood staley to the head, diaphoresis, anxiety, lightheadedness, and dizziness. Prior stress echo from August 2024 revealed normal-sized left ventricle with normal systolic function with an ejection fraction of 65%. There were no significant valvular abnormalities. No evidence of ischemia. Patient is typically quite active for example shopping for groceries as well as frequently walking her dog. She last took her Toprol XL on 10/21/2024. Patient was previously instructed to hold for 5 days preablation. Medications, allergies, and medical history reviewed with patient. She has been n.p.o. since 1999 yesterday evening. Lengthy discussion was had regarding what to expect pre-/intra-/post ablation. Topics included pathophysiology of SVT, procedure overview, MAC, overnight stay in [facility], risk/benefits, recovery, post restrictions, and follow-up. Benefits being highly curative nature of SVT ablations with prevention of future episodes. Low potential risk of bleeding, stroke, or . 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 Vasquez (worse from 2011 to 2012) Low vitamin B12 level Multiple sclerosis (HCC) 05/31/2016 Osteopenia Type 2 diabetes mellitus, without long-term current use of insulin (HCC) 01/24/2021 PAST SURGICAL HISTORY Procedure Laterality Date ABDOMINAL SURGERY HX CATARACT EXTRACTION HX Right 04/25/2015 Cataract surgery DELIVERY ONLY , low cervical COLONOSCOPY FLX DX W/COLLJ SPEC WHEN PFRMD 07/31/2000 Colonoscopy COLONOSCOPY FLX DX W/COLLJ SPEC WHEN PFRMD 09/18/2006 COLONOSCOPY FLX DX W/COLLJ SPEC WHEN PFRMD 07/01/2012 Colonoscopy COLONOSCOPY FLX DX W/COLLJ SPEC WHEN PFRMD 04/30/2017 Colonoscopy EYE SURGERY HX HERNIA REPAIR HX JOINT REPLACEMENT HX LIG/TRNSXJ FLP TUBE ABDL/VAG APPR UNI/BI Tubal ligation PAST SURGICAL HISTORY OF 12/31/2002 lap left ing hernia PAST SURGICAL HISTORY OF 10/03/2012 bunionectomy (Dr. Araya) TONSILLECTOMY HX TONSILLECTOMY PRIMARY/SECONDARY Tonsillectomy TOTAL HIP REPLACEMENT Left 02/01/2021 TOTAL HIP REPLACEMENT Right 06/27/2023 FAMILY HISTORY Problem Relation Age of Onset Cancer Father COLON Osteoporosis Mother other (low thyroid) Mother Social History Tobacco Use Smoking status: Former Current packs/day: 0.00 Types: Cigarettes Quit date: 1992 Years since quittin.0 Smokeless tobacco: Never Vaping Use Vaping status: Never Used Substance Use Topics Alcohol use: Yes Comment: GLASS OF WINE DAILY/ Intermittent Drug use: Not Currently Prior to Admission Medications Prescriptions Last Dose Informant Patient Reported? Taking? Cholecalciferol, Vitamin D3, 125 mcg (5,000 unit) cap Past Week No Yes Sig: Hold for 1 month then take once weekly Lactase (LACTAID FAST ACT) 9,000 unit chew Unknown No No Sig: Uses as needed Lactobacillus acidophilus (PROBIOTIC ORAL) Unknown Yes No Sig: Take by mouth. Syringe with Needle, Disp, (BD LUER-ISABEL SYRINGE) 3 mL 25 gauge x 1 Unknown No No Sig: Use for b12 injection monthly alendronate (FOSAMAX) 70 mg tablet Past Week No Yes Sig: Take 1 tablet by mouth one time a week. Take with a full glass of water, on an empty stomach; do NOT lie down for 30minutes. calcium carbonate (TUMS ORAL) Unknown Yes No Sig: Take by mouth as needed. conjugated estrogens (PREMARIN) vaginal cream Unknown Yes No Sig: Use 0.5 g vaginally as needed. for 3 weeks then off for 1 week cyanocobalamin 1,000 mcg/mL Unknown No No Sig: USE ONE ML INTO THE MUSCLE ONCE MONTHLY meloxicam (MOBIC) (more content not included)... [facility] PT EDon 10-26-2024 PT ED HNO ID: [id number] Author: BONNIE SUAREZ [facility] Service: Pharmacy Author Type: Pharmacist Type: Patient Education Filed: 10/26/2024 20:13 Note Text: PHARMACY ANTICOAGULATION EDUCATION Patient Name: Tania Romero Account #: Data Unavailable Admission Date: 10/26/2024 6:53 AM Date of Contact: October 26, 2024 Time of Contact: 7:47 PM Patient anticipated to be discharged on Apixaban as oral anticoagulation therapy. Anticoagulant history: Patient is new to anticoagulation therapy Indication for oral anticoagulation: atrial fibrillation/atrial flutter Anticoagulant education status: Patient received full anticoagulation education Reason for taking anticoagulation How this anticoagulant works When to take medication and what to do if a dose is missed Drug interactions (Rx, OTC, herbal) and importance of notifying the doctor with any changes Do not take or discontinue any medication or over the counter medication except on the advice of the physician or pharmacist Signs/symptoms of bleeding and what to do if they occur Precautionary measures to decrease trauma/bleeding Signs/symptoms of thrombosis and what to do if they occur Need to limit or avoid alcohol consumption Carrying identification Importance of notifying healthcare provider when hospitalizations occur and when another healthcare provider has asked them to stop/hold anticoagulation medication before any procedure Importance of notifying all healthcare providers they are taking an anticoagulant Use of control measures, if applicable The importance of taking anticoagulation medication as instructed and the potential ramifications of non-compliance were explained to the patient The patient was provided supplemental material which includes the following topics: compliance Issues, follow-up with physician, follow-up monitoring, potential adverse drug reactions, and interactions. Chani West I have reviewed and agree with the anticoagulation education note completed by the student pharmacist as documented above. Bonnie Suarez, PharmD, [facility] Nursing Unit Based Pharmacist Ext: [phone] [facility] Cardiology Visit Reporton Cardiology Visit Report [facility] [address] [place], [place] [address] OFFICE VISIT Date of Service: 10/20/24 MR#: [id number] Acct: [id number] Name: TANIA ROMERO Rep #: [id number] : 1940 Provider: Dr. Majo Arcos MD Age/Sex: 84/F Location: [facility] Status: Signed HPI HPI History of Present Illness Details: This lady is here for a follow-up visit. She did see electrophysiology and is in the process of getting scheduled for SVT ablation. Since her last visit with us, her primary care physician decreased her metoprolol succinate to 12.5 mg once daily as the worry was that she may be getting lightheaded because of bradycardia. Patient has occasional palpitations but no syncope or presyncope. A Lexiscan stress Myoview was negative for ischemia. Echocardiogram showed normal LV systolic function. Mild mitral valve regurgitation along with mild to moderate aortic valve regurgitation was noted. 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 Hardening Machine Operator Required: No Accompanied by: Is patient in pain?: No Allergies Penicillins Allergy (Severe, Verified 10/20/24 13:23) Rash amoxicillin Allergy (Verified 10/20/24 13:23) Rash clindamycin Adverse Reaction (Severe, Verified 10/20/24 13:23) Diarrhea prochlorperazine (From Compazine) Adverse Reaction (Verified 10/20/24 13:23) Other Medications ???Medication ???Instructions ???Recorded ???Confirmed ???Type conjugated estrogens 0.625 mg/gram 0.3125 mg vaginal DAILY Estrogen 01/24/21 10/20/24 History vaginal cream lactase 9,000 unit tablet (Lactase 9,000 unit PO ONCE PRN lactose 01/24/21 10/20/24 History Fast Acting) intolerance metformin 500 mg tablet 500 mg PO DAILY Diabetes 01/24/21 10/20/24 History calcium carbonate 500 mg (2.5 x 200 mg calcium (500 02/15/21 10/20/24 Rx mg)) PO BIDCM PRN Indigestion #0 tabs cyanocobalamin (vitamin B-12) 1,000 mcg IM QMONTH #0 mL 02/15/21 10/20/24 Rx 1,000 mcg/mL injection solution alendronate 70 mg tablet 70 mg PO QWEEK 08/06/24 10/20/24 History cholecalciferol (vitamin D3) 125 5,000 unit PO QWEEK Supplement 08/13/24 10/20/24 History mcg (5,000 unit) capsule meloxicam 15 mg tablet 7.5 mg PO ONCE Arthritis pain 08/13/24 10/20/24 History metoprolol succinate 25 mg 12.5 mg PO QDAY 08/31/24 10/20/24 History tablet,extended release 24 hr Ejection fraction %: 65 Have you fallen in the past year?: No PFSH Medical History Abnormal electro-oculogram Abnormality of gait Aortic valve insufficiency DJD (degenerative joint disease) of cervical spine Elevated LDL cholesterol level Expressive aphasia Former smoker GERD (gastroesophageal reflux disease) Multiple sclerosis Osteopenia Preop cardiovascular exam SI (sacroiliac) joint inflammation Trochanteric bursitis of right hip Type 2 diabetes mellitus Vitamin D deficiency Surgical History History of bunionectomy History of left hip replacement History of left inguinal hernia repair History of right hip replacement History of tonsillectomy History of tubal ligation Family History Father Colon cancer Mother Thyroid disorder Osteoporosis Social History household members: spouse Smoking Status: Former smoker quit date: 09/30/92 Electronic Cigarette Use: not used alcohol intake: current details: Glass of wine daily. substance use type: does not use caffeine: Yes ROS Const Const: Negative for fatigue, weakness, headache(s) or weight gain ENT ENT: Negative for headache(s), dizziness, Nosebleed/epistaxis or balance problems Cardio Chest Pain: No Palpitations: No Edema: None Muscle aches with walking: None Resp Respiratory: Negative for SOB with activity, SOB at rest or SOB orthopnea SOB lying down GI GI: Negative nausea, vomiting or heartburn Musc Musc: Negative for muscle aches/ myalgia, muscle weakness, joint pain or balance problems Neuro Neuro: Negative for dizziness, lightheadedness, near syncope, syncope, headache(s) or weakness Endo Endo: Negative for fatigue Cardiology Exam Const Appearance: comfortable and no acute distress Nutritional Appearance: well nourished Neck Neck: no JVD Carotids: Negative bruit Chest Auscultation: Bilateral: Clear to Auscultation Cardio Rate: regular rate Rhythm: regular rhythm Heart (more content not included)... Normal [facility] 10-15-2024 [facility] Telephone (AGCARDPOB ) TANIA ROMERO ([id number]) 1940 F Date Time Provider Department 10/15/24 RUSSELL RODRIGUEZ AGCARDPOB During your visit today, we recorded the following information about you: Olimpia Herzog 10/15/2024 11:42 AM Signed Patient is scheduled for an SVT Ablation on 10/[address] Rodriguez. The hospital will call the day before between 2-5pm with your arrival time. You should not eat or drink after midnight the day before the procedure. You will need a lease purchase driver when released from the hospital and you will stay overnight for observation. You should continue to take medications as prescribed the morning of the procedure with just a sip of water but hold Metoprolol 5 days prior HANDP morning of Spoke with Tania Romero on October 15, 2024. Informed of instructions as stated above. Patient verbalized understanding. Rosanna Jones, RN 10/15/2024 11:55 AM Signed Pt's name has been added to shipman procedure board. ALEX Nicole Linda S, RN 10/19/2024 1:03 PM Signed Tania Romero called in to report she will need to schedule a dental surgery that was also scheduled on 10/26. She described an exploratory procedure to explore the root of tooth with possible extraction. She asked if there are any implications regarding timing of the dental surgery. She asked how long she should wait between procedures, especially if she would also need pacemaker as that possibility was discussed. Thank you. Ok to call back or send message via My Chart. ALEX Paris Faisal, MD 10/19/2024 4:14 PM Signed She can schedule it within 2 weeks of the other procedure. Nuha Romero RN 10/20/2024 9:11 AM Signed Called and left VM for Tania Romero to return call, then recalled she asked for My Chart message - done. ALEX Paris Taylor, LPN 10/20/2024 12:12 PM Signed Spoke with Tania Romero on October 20, 2024. Informed of recommendations as stated above. Patient voiced understanding at this time. Tori Luz LPN Allergies As of Date: 10/15/2024 Noted Allergy Reaction AMOXICILLIN 06/24/2015 2 - Rash CLINDAMYCIN 07/12/2006 15 - Contraindication-Medica [facility]* Comments: C diff COMPAZINE (PROCHLORPERAZINE EDISY*07/11/2006 5 - Intolerance PENICILLINS 07/11/2006 2 - Rash 5 - Intolerance Comments: Rash after 4 days of antibiotic . PROCHLORPERAZINE 06/30/2023 13 - Dystonia Date Reviewed: 09/24/2024 Reviewed by: Ruth Corbett MA - Fully Assessed Reason for Visit: Preparations For Procedures [899] Prescriptions as of 10/20/2024 - meloxicam (MOBIC) 7.5 mg tablet Take 1 tablet by mouth once daily. - cyanocobalamin 1,000 mcg/mL USE ONE ML INTO THE MUSCLE ONCE MONTHLY - metoprolol succinate ER (TOPROL XL) 25 mg 24 hr tablet Take 1 tablet by mouth once daily. - alendronate (FOSAMAX) 70 mg tablet Take 1 tablet by mouth one time a week. Take with a full glass of water, on an empty stomach; do NOT lie down for 30minutes. - metFORMIN ER (GLUCOPHAGE XR) 500 mg 24 hr tablet Take 1 tablet by mouth daily with breakfast. - Syringe with Needle, Disp, (BD LUER-ISABEL SYRINGE) 3 mL 25 gauge x 1 Use for b12 injection monthly - Cholecalciferol, Vitamin D3, 125 mcg (5,000 unit) cap Hold for 1 month then take once weekly - Lactobacillus acidophilus (PROBIOTIC ORAL) Take by mouth. - calcium carbonate (TUMS ORAL) Take by mouth as needed. - Lactase (LACTAID FAST ACT) 9,000 unit chew Uses as needed - conjugated estrogens (PREMARIN) vaginal cream Use 0.5 g vaginally as needed. for 3 weeks then off for 1 week Problem List As Of Date 10/15/2024 Noted Resolved Family history of malignant neoplasm of gastroi*05/06/2012 Elevated fasting glucose [R73.01] 05/04/2013 03/24/2024 Low vitamin B12 level [R79.89] Primary osteoarthritis of left hip [M16.12] 02/03/2021 Multiple sclerosis (HCC) [G35] 05/31/2016 Abnormality of gait [R26.9] 06/21/2016 Osteopenia [M85.80] Chronic midline low back pain without sciatica *04/29/2019 Primary osteoarthritis of both hips [M16.0] 06/07/2020 Type 2 diabetes mellitus, without long-term cur*01/24/2021 GERD (gastroesophageal reflux disease) [K21.9] 01/24/2021 Abnormal EKG [R94.31] 01/24/2021 Vitamin D deficiency [E55.9] 03/04/2022 Elevated LDL cholesterol level [E78.00] 03/04/2022 Colon cancer screening [Z12.11] 03/04/2022 Trochanteric bursitis of right hip [M70.61] 02/08/2023 SI (sacroiliac) joint inflammation (HCC) [M46.1]06/24/2023 Former smoker [Z87.891] 06/26/2023 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] 06/27/2023 06/28/2023 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] 06/29/2023 11/19/2023 Aftercare [Z51.89] 06/30/2023 07/08/2023 Acute blood loss anemia [D62] 07/01/2023 03/24/2024 Status post right hip replacement [Z96.641] 07/04/2023 Status post hip replacement, right [Z96.641] 07/24/2023 Other acute po (more content not included)... Normal [facility] CNOVon 09-24-2024 CNOV Office Visit (AGCARDPOB) TANIA ROMERO ([id number]) 1940 F Date Time Provider Department 09/24/24 1:00 PM RUSSELL RODRIGUEZ AGCARDPOB During your visit today, we recorded the following information about you: Pulse Respiration Blood pressure Weight 69/minute 18/minute 118/64 49.4 kg Height 1.524 m Russell Rodriguez MD 10/01/2024 11:00 AM Signed PRIMARY CARE PHYSICIAN: Bg Chavarria [address] [place] [address] REFERRING PHYSICIAN: Bg Chavarria [address] [facility] [id number] Patient Care Team: Bg Chavarria MD as PCP - General (Internal Medicine) Sincere Hopkins MD as Referring (Orthopedics) Sincere Hopkins MD as Home Care Provider (Orthopedics) Luis Manuel Hernandez APRN.DRAW HAND as Care Technician (Internal Medicine) Linda Silva APRN.MORTGAGE LOAN ASSISTANT as Care Technician (Internal Medicine) CHIEF COMPLAINT: SVT/presyncope HISTORY OF PRESENT ILLNESS: Ms. Romero is a 84 year old female with PMH significant for vitamin D deficiency/osteopenia, hyperlipidemia, former smoker, type 2 diabetes mellitus, multiple sclerosis, expressive aphasia who presents today to establish to the EP clinic. Patient was evaluated at outside cardiology for episodes of lightheadedness and dizziness. She reports frequent episodes of presyncope, where she would feel she was about to pass out. No episodes of syncope. She would sit or lay down and episodes would subside. Prior to her clinic visit, she had another presyncopal episode in the grocery store associated with chest pain and was evaluated by EMS. At the time revealing a normal EKG and symptoms resolved. Advised to go to the ER if any recurrence. 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 Subsequently a 14-day event monitor was ordered which showed multiple runs of SVT. Longest run was about 34 minutes along with an average heart rate of 131 bpm. Fastest event at a rate of 214 bpm. She did not however report any triggered symptoms during this evaluation to correlate rhythm. She was started on metoprolol 25 mg once daily. Since starting on metoprolol, she reports different symptoms of lightheadedness and dizziness and her who is a retired family physician felt there might have been secondary to bradycardia. She decreased her metoprolol to half tablet once daily and reports resolution of those symptoms. She however continues to have intermittent episodes of palpitations and presyncopal symptoms, indicating SVT episodes. She does report a remote episode of syncope after having similar prodromal symptoms and likely related to SVT. She remains physically active and denies any chest pain, shortness of breath with exertion, orthopnea, PND, lower extremity edema. She however continues to have joint related issues including of her back and hip and knees. She has had prior general anesthesia procedures despite diagnosis of MS and has done well without any issues. I have confirmed and edited as necessary, the PFSH and ROS obtained by others. 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 Vasquez (worse from 2011 to 2012) Low vitamin B12 level Multiple sclerosis ([facility]) 05/31/2016 Osteopenia Type 2 diabetes mellitus, without long-term current use of insulin ([facility]) 01/24/2021 PAST SURGICAL HISTORY Procedure Laterality Date ABDOMINAL SURGERY HX CATARACT EXTRACTION HX Right 04/25/2015 Cataract surgery DELIVERY ONLY , low cervical COLONOSCOPY FLX DX W/COLLJ SPEC WHEN PFRMD 07/31/2000 Colonoscopy COLONOSCOPY FLX DX W/COLLJ SPEC WHEN PFRMD 09/18/2006 COLONOSCOPY FLX DX W/COLLJ SPEC WHEN PFRMD 07/01/2012 Colonoscopy COLONOSCOPY FLX DX W/COLLJ SPEC WHEN PFRMD 04/30/2017 Colonoscopy EYE SURGERY HX HERNIA REPAIR HX JOINT REPLACEMENT HX LIG/TRNSXJ FLP TUBE ABDL/VAG APPR UNI/BI Tubal ligation PAST SURGICAL HISTORY OF 12/31/2002 lap left ing hernia PAST SURGICAL HISTORY OF 10/03/2012 bunionectomy (Dr. Araya) TONSILLECTOMY HX TONSILLECTOMY PRIMARY/SECONDARY Tonsillectomy TOTAL HIP REPLACEMENT Left 02/01/2021 TOTAL HIP REPLACEMENT Right 06/27/2023 SOCIAL HISTORY Social History Tobacco Use Smoking status: Former Current packs/day: 0.00 Types: Cigarettes Quit date: 1992 Years since quittin.0 Smokeless tobacco: Never Vaping Use Vaping status: Never Used Substance Use Topics Alcohol use: Yes Comment: GLASS OF WINE DAILY/ Intermittent Drug use: Not Currently FAMILY HISTORY Problem Relation Age of Onset Cancer Father COLON Osteoporosis Mother other (low thyroid) Mother ALLERGIES: ALLERGIES Allergen Reactions Amoxicillin Rash Clindamycin Contraindication-Medica l Surgical C diff Compazine [Prochlor* Into (more content not included)... Normal [facility] Echo Completeon 09-08-2024 Echo Complete [facility] [address] [place] [address] Echo Complete 09/08/24 0929 MR#: [id number] Acct: [id number] Name: TANIA ROMERO Rep #: [id number] : 1940 84 From: Majo Arcos MD Attending Dr: Dr. Majo Arcos MD Status: REG CLI Ordering Dr: Majo Arcos MD Date: 09/08/24 Location: CVS Sex: F C Admitted: Reason For Study: SYNCOPE Procedure This was a 2D Doppler, Color Flow transthoracic echocardiogram. Exam performed in department. Left Ventricle Normal left ventricular thickness. The left ventricular ejection fraction is 65 %. Unable to assess diastolic function based on available data. Right Ventricle Normal right ventricle. Atria The left and right atria are normal. Mitral Valve Mild mitral annular calcification. Mild (1+) mitral valve insufficiency. Tricuspid Valve Mild tricuspid valve insufficiency. Normal pulmonary artery pressure. Aortic Valve Trisinus/trileaflet aortic valve. Mild-Moderate (1-2+) eccentric aortic valve insufficiency. Pulmonic Valve The pulmonic valve is not well visualized. Trivial pulmonic valve insufficiency. Great Vessels Normal sized aortic root. Pericardium/Pleural No pericardial effusion. MMode/2D Measurements Calculations LVIDd: 3.9 cm IVSd: 0.90 cm LVOT diam: 1.8 cm LVIDs: 2.1 cm LVPWd: 0.77 cm LVOT area: 2.5 cm2 RVDd: 2.7 cm FS: 47.2 % asc Aorta Diam: 3.2 cm LAV(MOD-bp): 32.9 ml LVAd ap4: 16.8 cm2 LAV(MOD-bp) Indexed: 22.1 ml/m2 LVLd ap4: 6.3 cm LAV(MOD-sp2): 34.7 ml EDV(MOD-sp4): 36.9 ml LAV(MOD-sp4): 31.5 ml EDV(sp4-el): 38.3 ml LVAs ap4: 9.0 cm2 LVLs ap4: 5.3 cm ESV(MOD-sp4): 12.5 ml ESV(sp4-el): 13.1 ml EF(MOD-sp4): 66.1 % EF(sp4-el): 65.8 % LVAd ap2: 15.9 cm2 SV(MOD-sp4): 24.4 ml SV(MOD-sp2): 22.4 ml LVLd ap2: 5.9 cm SI(MOD-sp4): 16.4 ml/m2 SI(MOD-sp2): 15.0 ml/m2 EDV(MOD-sp2): 36.2 ml EDV(sp2-el): 35.9 ml LVAs ap2: 8.9 cm2 LVLs ap2: 4.8 cm ESV(MOD-sp2): 13.8 ml ESV(sp2-el): 13.9 ml EF(MOD-sp2): 61.9 % SV(sp4-el): 25.2 ml Ao sinus diam: 2.[address] Junction: 2.4 cm LA dimension(2D): 3.1 cm LA A4 area: 13.6 cm2 RA A4 area: 10.2 cm2 TAPSE: 2.3 cm Time Measurements MV dec time: 0.26 sec Doppler Measurements Calculations MV A max pat: 91.4 cm/sec Lat Peak E' Pat: 6.8 cm/sec Med Peak E' Pat: 8.0 cm/sec Ao V2 max: 99.1 cm/sec LV V1 max: 83.3 cm/sec SV(LVOT): 55.0 ml Ao max P.9 mmHg LV V1 max P.8 mmHg Ao V2 mean: 66.7 cm/sec LV V1 mean P.7 mmHg Ao mean P.1 mmHg LV V1 mean: 61.8 cm/sec Ao V2 VTI: 23.2 cm LV V1 VTI: 22.3 cm AV (velocity ratio): 0.96 SILAS(I,D): 2.4 cm2 SILAS(V,D): 2.1 cm2 TV V2 max: 237.7 cm/sec PA V2 max: 52.4 cm/sec TR max pat: 245.7 cm/sec TV max P.6 mmHg TR max P.2 mmHg ECHO/Echo Complete Interpretation Summary The left ventricular ejection fraction is 65 %. Mild mitral annular calcification. Mild (1+) mitral valve insufficiency. Mild tricuspid valve insufficiency. Mild-Moderate (1-2+) eccentric aortic valve insufficiency. Ordering Physician: Majo Arcos Referring Physician: Bg Chavarria M.D. Performed By: Mirlande Martinez RDCS 09/08/24 1519 Date Majo Arcos MD CC: Dr. Majo Arcos MD; Dr. Bg Chavarria MD Date Dictated: 09/08/24928 Date Transcribed: 09/08/24 151 [employer] Assistant Principal: Signed Normal [facility] Stress Reporton 09-08-2024 Stress Report [facility] [address] [place] [address] MR#: [id number] Acct: [id number] Name: TANIA ROMERO Rep #: [id number] : 1940 84 From: Majo Arcos MD Primary Care: Dr. Bg Chavarria MD Status: REG CLI Referring Dr: Majo Arcos MD Sex: F C Stress Test Report Date: 09/08/2024 Procedure: Pharmacologic stress nuclear imaging study Indications: Presyncope Consent: Per the patient Procedure: The patient underwent pharmacologic (Regadenoson 0.4mg ) evaluation with a peak heart rate of 97 beats per minute (70%predicted maximal heart rate) and a peak blood pressure of 120/70 mmHg. The baseline ECG demonstrated sinus rhythm. The peak pharmacologic ECG demonstrated no ischemic changes. There were no cardiac dysrhythmias pretest, during pharmacologic infusion, or recovery. There was no complaint of chest discomfort during pharmacologic infusion or recovery. The patient was injected with 11.7 millicuries of technetium 99m Cardiolite and subsequently rest SPECT Cardiolite nuclear imaging was obtained in the horizontal long, vertical long, and short axis views. The patient underwent pharmacologic (Regadenoson) evaluation. The patient was injected with 32.9 millicuries of technetium 99m Cardiolite and subsequently stress SPECT Cardiolite nuclear imaging was obtained in the horizontal long, vertical long, and short axis views. A gated Cardiolite study at peak stress was obtained. The examination was stopped secondary to completion of protocol. Rest and stress SPECT Cardiolite nuclear imaging status post realignment, normalization, and attenuation correction demonstrate no fixed or reversible perfusion defects. There is end systolic thickening and brightening. The gated Cardiolite study demonstrates myocardial thickening and inward wall motion. The reported LVEF is 79%. Impression: 1. Pharmacologic (Regadenoson) evaluation 2. Peak pharmacologic ECG with no ischemic changes. 3. There were no cardiac dysrhythmias pretest, during pharmacologic infusion, or recovery. 5. Rest and stress SPECT Cardiolite nuclear imaging demonstrate relative uniform tracer uptake and myocardial perfusion appearing within normal limits. 6. The gated Cardiolite study reports an LVEF of 79%. This note was generated with Tengionation software. It may contain incorrect words, spelling, and punctuation that were not noted in checking the note before signing. 09/08/241057 Date Majo Arcos MD CC: Dr. Majo Arcos MD; Dr. Bg Chavarria MD Date Dictated: 09/08/241056 Date Transcribed: 09/08/241056 High [employer] Assistant Principal: SIMEON Signed Normal [facility] 12 Lead EKG performed by [facility] on 08-13-2024 12 Lead EKG performed by [address] [address] 12 Lead EKG performed by [facility] 08/13/24 0811 MR#: [id number] Acct: [id number] Name: TANIA ROMERO Rep #: [id number] : 1940 83 From: Majo Arcos MD Attending Dr: Dr. Majo Arcos MD Status: DEP AMB Ordering Dr: Majo Arcos MD Date: 08/13/24 Location: [facility] Sex: F C Admitted: [facility]/12 Lead EKG performed by [facility] ECG Report Interpretation ---Sinus Rhythm -Left atrial enlargement. -Anterior infarct -age undetermined. ABNORMAL Electronically signed on 10/26/2024 at 11:[address] Majo Arcos Lockhart Software Version 8610 10/26/241114 Date Majo Arcos MD CC: Dr. Bg Chavarria MD Date Dictated: 08/13/24810 Date Transcribed: 08/13/24810 High School Assistant Principal: SIMEON Signed Normal [facility] Cardiology Visit Reporton Cardiology Visit Report [facility] [address] [place] [address] OFFICE VISIT Date of Service: 08/13/24 MR#: [id number] Acct: [id number] Name: TANIA ROMREO Rep #: [id number] : 1940 Provider: Dr. Majo Arcos MD Age/Sex: 83/F Location: [facility] Status: Signed HPI HPI History of Present Illness Details: This lady is here for evaluation for her presyncopal episode. According to the patient, he has had episodes of lightheadedness and dizziness throughout her life. According to her, she would feel very lightheaded and close to passing out. Previously, she could just sit down and lower her head between her legs. That would relieve her symptoms. However recently, she was at the grocery store where and she felt lightheaded and felt as if she was going to pass out. At the same time, she felt tightness in her throat. She was evaluated by the EMS. Subsequently she has had a 14-day event monitoring done. The event monitoring done showed multiple runs of supraventricular tachycardia. The longest run was 34-minute long with an average rate of 131 bpm. The fastest event was 2 minutes and 16 seconds long with a rate of 214 bpm. She has since been started on metoprolol 25 mg once daily. According to the patient, she has not had any palpitations or episodes of lightheadedness since starting on metoprolol. Patient is physically active and denies any chest pains or shortness of breath either at rest or with exertion. Denies any orthopnea. No PND. No ankle edema. 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 Accompanied by: Is patient in pain?: No Allergies Penicillins Allergy (Severe, Verified 08/13/24 10:28) Rash amoxicillin Allergy (Verified 08/13/24 10:28) Rash clindamycin Adverse Reaction (Severe, Verified 08/13/24 10:28) Diarrhea prochlorperazine (From Compazine) Adverse Reaction (Verified 08/13/24 10:28) Other Medications ???Medication ???Instructions ???Recorded ???Confirmed ???Type conjugated estrogens 0.625 mg/gram 0.3125 mg vaginal DAILY Estrogen 01/24/21 08/13/24 History vaginal cream lactase 9,000 unit tablet (Lactase 9,000 unit PO ONCE PRN lactose 01/24/21 08/13/24 History Fast Acting) intolerance metformin 500 mg tablet 500 mg PO DAILY Diabetes 01/24/21 08/13/24 History calcium carbonate 500 mg (2.5 x 200 mg calcium (500 02/15/21 08/13/24 Rx mg)) PO BIDCM PRN Indigestion #0 tabs cyanocobalamin (vitamin B-12) 1,000 mcg IM QMONTH #0 mL 02/15/21 08/13/24 Rx 1,000 mcg/mL injection solution alendronate 70 mg tablet 70 mg PO QWEEK 08/06/24 08/13/24 History metoprolol succinate 25 mg 25 mg PO QDAY 08/06/24 08/13/24 History tablet,extended release 24 hr cholecalciferol (vitamin D3) 125 5,000 unit PO QWEEK Supplement 08/13/24 08/13/24 History mcg (5,000 unit) capsule meloxicam 15 mg tablet 7.5 mg PO ONCE Arthritis pain 08/13/24 08/13/24 History Ejection fraction %: 65 Have you fallen in the past year?: No PFSH Medical History (Updated 08/13/24 @ 11:[address] Majo Arcos MD) Abnormality of gait Osteopenia Elevated LDL cholesterol level Vitamin D deficiency Trochanteric bursitis of right hip SI (sacroiliac) joint inflammation Former smoker Abnormal electro-oculogram GERD (gastroesophageal reflux disease) Type 2 diabetes mellitus Preop cardiovascular exam Multiple sclerosis DJD (degenerative joint disease) of cervical spine Expressive aphasia Surgical History (Updated 08/06/24 @ 17:02 by James Prieto RN) History of right hip replacement History of left hip replacement History of tonsillectomy History of bunionectomy History of left inguinal hernia repair History of tubal ligation Family History Father Colon cancer Mother Thyroid disorder Osteoporosis Social History (Updated 08/06/24 @ 17:04 by James Prieto RN) household members: spouse Smoking Status: Former smoker quit date: 09/30/92 Electronic Cigarette Use: not used alcohol intake: current details: Glass of wine daily. substance use type: does not use caffeine: Yes ROS Const Const: Negative for fatigue, weakness, headache(s) or weight gain ENT ENT: Positive for dizziness; Negative for headache(s), Nosebleed/epistaxis or balance problems Cardio Chest Pain: No Palpitations: No Edema: None Muscle aches with walking: None Resp Respiratory: Negative for SOB with activity, SOB at rest or SOB orthopnea SOB lying down GI GI: Negative nausea, vomiting or heartburn (more content not included)... Normal [facility] 07-30-2024 [facility] Telephone (INTMWS) TANIA ROMERO ([id number]) 1940 F Date Time Provider Department 07/30/24 LUIS MANUEL HERNANDEZ INTWS During your visit today, we recorded the following information about you: Montana Esparza LPN 07/30/2024 2:03 PM Signed ----- Message from Luis Manuel Lopez APRN.[employer] sent at 07/28/2024 7:56 AM EDT ----- Please let her know that her preliminary Zio result shows primarily normal sinus rhythm but also had SVT episodes. This may well be cause of presyncope symptoms. Will add metoprolol succinate 25 mg daily. Rx to [facility]. She has an echocardiogram and cardiology appointment scheduled. Recommend ER for any severe or concerning symptoms. She has an OV today with Linda Silva CNP. Montana Esparza LPN 07/30/2024 2:26 PM Signed Left a message for pt to call the office and ask to speak to a nurse. SAURABH Holt Donna M, RN 07/30/2024 6:53 PM Signed OV today with Linda Silva MANAGER INTERVENTIONAL. Antonino Reyes RN Allergies As of Date: 07/30/2024 Noted Allergy Reaction AMOXICILLIN 06/24/2015 2 - Rash CLINDAMYCIN 07/12/2006 15 - Contraindication-Medica l Shea* Comments: C diff COMPAZINE (PROCHLORPERAZINE EDISY*07/11/2006 5 - Intolerance PENICILLINS 07/11/2006 2 - Rash 5 - Intolerance Comments: Rash after 4 days of antibiotic . PROCHLORPERAZINE 06/30/2023 13 - Dystonia Date Reviewed: 07/28/2024 Reviewed by: Linda Silva APRN.MORTGAGE LOAN ASSISTANT - Fully Assessed Reason for Visit: Results [95] Prescriptions as of 07/30/2024 - metoprolol succinate ER (TOPROL XL) 25 mg 24 hr tablet Take 1 tablet by mouth once daily. - alendronate (FOSAMAX) 70 mg tablet Take 1 tablet by mouth one time a week. Take with a full glass of water, on an empty stomach; do NOT lie down for 30minutes. - metFORMIN ER (GLUCOPHAGE XR) 500 mg 24 hr tablet Take 1 tablet by mouth daily with breakfast. - meloxicam (MOBIC) 7.5 mg tablet Take 1 tablet by mouth once daily. - Syringe with Needle, Disp, (BD LUER-ISABEL SYRINGE) 3 mL 25 gauge x 1 Use for b12 injection monthly - cyanocobalamin 1,000 mcg/mL USE ONE ML INTO THE MUSCLE ONCE MONTHLY - Cholecalciferol, Vitamin D3, 125 mcg (5,000 unit) cap Hold for 1 month then take once weekly - Lactobacillus acidophilus (PROBIOTIC ORAL) Take by mouth. - calcium carbonate (TUMS ORAL) Take by mouth as needed. - Lactase (LACTAID FAST ACT) 9,000 unit chew Uses as needed - conjugated estrogens (PREMARIN) vaginal cream Use 0.5 g vaginally as needed. for 3 weeks then off for 1 week Problem List As Of Date 07/30/2024 Noted Resolved Family history of malignant neoplasm of gastroi*05/06/2012 Elevated fasting glucose [R73.01] 05/04/2013 03/24/2024 Low vitamin B12 level [R79.89] Primary osteoarthritis of left hip [M16.12] 02/03/2021 Multiple sclerosis (HCC) [G35] 05/31/2016 Abnormality of gait [R26.9] 06/21/2016 Osteopenia [M85.80] Chronic midline low back pain without sciatica *04/29/2019 Primary osteoarthritis of both hips [M16.0] 06/07/2020 Type 2 diabetes mellitus, without long-term cur*01/24/2021 GERD (gastroesophageal reflux disease) [K21.9] 01/24/2021 Abnormal EKG [R94.31] 01/24/2021 Vitamin D deficiency [E55.9] 03/04/2022 Elevated LDL cholesterol level [E78.00] 03/04/2022 Colon cancer screening [Z12.11] 03/04/2022 Trochanteric bursitis of right hip [M70.61] 02/08/2023 SI (sacroiliac) joint inflammation (HCC) [M46.1]06/24/2023 Former smoker [Z87.891] 06/26/2023 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] 06/27/2023 06/28/2023 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] 06/29/2023 11/19/2023 Aftercare [Z51.89] 06/30/2023 07/08/2023 Acute blood loss anemia [D62] 07/01/2023 03/24/2024 Status post right hip replacement [Z96.641] 07/04/2023 Status post hip replacement, right [Z96.641] 07/24/2023 Other acute postoperative pain [G89.18] 08/01/2023 03/24/2024 Paroxysmal SVT (supraventricular tachycardia) (*07/28/2024 Encounter Status:Closed by ANTONINO REYES on 07/30/24 [facility] CNOVon 07-28-2024 CNOV Office Visit (INTMWS ) TANIA ROMERO ([id number]) 1940 F Date Time Provider Department 07/28/24 10:40 AM LINDA SILVA INTMWS During your visit today, we recorded the following information about you: Pulse Blood pressure Weight 75/minute 128/76 49.6 kg Linda Silva APRN.MORTGAGE LOAN ASSISTANT 07/28/2024 12:05 PM Signed SUBJECTIVE Tania Romero is a 83 year old female here today for a check up on her medical problems. Chief Complaint Patient presents with: Recheck HPI Tania Romero is a 83 year old female. She is an established patient of Bg Chavarria MD. Here today for follow up. Still following with ortho, s/p right hip replacement. Labs show stable DM. Was recently seen with Luis Manuel. Had some dizziness issues. Set up with ZIO monitoring, Stress ECHO ordered and labs. Planning to do this with [facility]. Consulted to cardiology. Planning to see cardiology with [facility] in July. Recent zio showed few episodes of SVT. Started on metoprolol. Her medications were reviewed today and her list is now up to date. Medications Current Outpatient Medications Medication Sig alendronate (FOSAMAX) 70 mg tablet Take 1 tablet by mouth one time a week. Take with a full glass of water, on an empty stomach; do NOT lie down for 30minutes. metFORMIN ER (GLUCOPHAGE XR) 500 mg 24 hr tablet Take 1 tablet by mouth daily with breakfast. meloxicam (MOBIC) 7.5 mg tablet Take 1 tablet by mouth once daily. cyanocobalamin 1,000 mcg/mL USE ONE ML INTO THE MUSCLE ONCE MONTHLY Cholecalciferol, Vitamin D3, 125 mcg (5,000 unit) cap Hold for 1 month then take once weekly Lactobacillus acidophilus (PROBIOTIC ORAL) Take by mouth. calcium carbonate (TUMS ORAL) Take by mouth as needed. Lactase (LACTAID FAST ACT) 9,000 unit chew Uses as needed conjugated estrogens (PREMARIN) vaginal cream Use 0.5 g vaginally as needed. for 3 weeks then off for 1 week metoprolol succinate ER (TOPROL XL) 25 mg 24 hr tablet Take 1 tablet by mouth once daily. Syringe with Needle, Disp, (BD LUER-ISABEL SYRINGE) 3 mL 25 gauge x 1 Use for b12 injection monthly No current facility-administered medications for this visit. ALLERGIES Allergen Reactions Amoxicillin Rash Clindamycin Contraindication-Medica l Surgical C diff Compazine [Prochlor* Intolerance Penicillins Rash, Intolerance Rash after 4 days of antibiotic . Prochlorperazine Dystonia ACTIVE PROBLEM LIST Paroxysmal Svt (Supraventricular Tachycardia) ([facility]) - 07/28/2024 Status Post Hip Replacement, Right - 07/24/2023 Status Post Right Hip Replacement - 07/04/2023 Former Smoker - 06/26/2023 Si (Sacroiliac) Joint Inflammation ([facility]) - 06/24/2023 Trochanteric Bursitis of Right Hip - 02/08/2023 Vitamin D Deficiency - 03/04/2022 Elevated Ldl Cholesterol Level - 03/04/2022 Colon Cancer Screening - 03/04/2022 Type 2 Diabetes Mellitus, Without Long-Term Current Use of Insulin ([facility]) - 01/24/2021 Gerd (Gastroesophageal Reflux Disease) - 01/24/2021 Abnormal Ekg - 01/24/2021 Primary Osteoarthritis of Both Hips - 06/07/2020 Chronic Midline Low Back Pain Without Sciatica - 04/29/2019 Comment: Doing better with exercises; had PT Osteopenia Abnormality of Gait - 06/21/2016 Multiple Sclerosis ([facility]) - 05/31/2016 Low Vitamin B12 Level Family History of Malignant Neoplasm of Gastrointestinal Tract - 05/06/2012 Comment: father Social History Tobacco Use Smoking status: Former Current packs/day: 0.00 Types: Cigarettes Quit date: 1992 Years since quittin.8 Smokeless tobacco: Never Vaping Use Vaping status: Never Used Substance Use Topics Alcohol use: Yes Comment: GLASS OF WINE DAILY/ Intermittent Drug use: Not Currently Review of Systems Respiratory: Negative. Cardiovascular: Negative. Neurological: Positive for dizziness. OBJECTIVE BP 128/76 Pulse 75 Wt 109 lb 5.6 oz (49.6kg) SpO2 95% Physical Exam Vitals and nursing note reviewed. Constitutional: General: She is awake. She is not in acute distress. Appearance: Normal appearance. She is well-developed and well-groomed. She is not ill-appearing, toxic-appearing or diaphoretic. HENT: Head: Normocephalic. Right Ear: External ear normal. Left Ear: External ear normal. Nose: Nose normal. Eyes: General: Vision grossly intact. Conjunctiva/sclera: Conjunctivae normal. Pupils: Pupils are equal, round, and reactive to light. Neck: Vascular: No JVD. Trachea: Trachea normal. Cardiovascular: Rate and Rhythm: Normal rate and regular rhythm. Pulses: Normal pulses. Heart sounds: Normal heart sounds. No murmur heard. Pulmonary: Effort: Pulmonary effort is normal. No accessory muscle usage, prolonged expiration or respiratory distress. Breath sounds: Normal breath sounds. Musculoskeletal: Cervical back: Neck supple. Skin: General: Skin is warm and dry. Capillary Refill (more content not included)... Normal [facility] 07-27-2024 [facility] ([id number]) 1940 F Date Time Provider Department 07/27/24 [facility] During your visit today, we recorded the following information about you: Danielle Bustamante MD 07/27/2024 7:14 PM Signed I was paged for a critical result related to Zio patch by Eye Rhythm with reported episode of SVT at 189 bpm for 60 seconds on 07/12/24 at 8:35am page 9 strip 5. This was the only critical result and results will be posted within the next 30 minutes. I will forward this result to PCP team to review and discuss addition of AV asaf blocking drugs with patient for paroxysmal SVT. Lidna Silva APRN.[facility] 07/28/2024 11:09 AM Signed Seen in office today and discussed. Allergies As of Date: 07/27/2024 Noted Allergy Reaction AMOXICILLIN 06/24/2015 2 - Rash CLINDAMYCIN 07/12/2006 15 - Contraindication-Medica l Shea* Comments: C diff COMPAZINE (PROCHLORPERAZINE EDISY*07/11/2006 5 - Intolerance PENICILLINS 07/11/2006 2 - Rash 5 - Intolerance Comments: Rash after 4 days of antibiotic . PROCHLORPERAZINE 06/30/2023 13 - Dystonia Date Reviewed: 07/13/2024 Reviewed by: Misti Patel OCCA - Fully Assessed Reason for Visit: Results [95] Prescriptions as of 07/30/2024 - metoprolol succinate ER (TOPROL XL) 25 mg 24 hr tablet Take 1 tablet by mouth once daily. - alendronate (FOSAMAX) 70 mg tablet Take 1 tablet by mouth one time a week. Take with a full glass of water, on an empty stomach; do NOT lie down for 30minutes. - metFORMIN ER (GLUCOPHAGE XR) 500 mg 24 hr tablet Take 1 tablet by mouth daily with breakfast. - meloxicam (MOBIC) 7.5 mg tablet Take 1 tablet by mouth once daily. - Syringe with Needle, Disp, (BD LUER-ISABEL SYRINGE) 3 mL 25 gauge x 1 Use for b12 injection monthly - cyanocobalamin 1,000 mcg/mL USE ONE ML INTO THE MUSCLE ONCE MONTHLY - Cholecalciferol, Vitamin D3, 125 mcg (5,000 unit) cap Hold for 1 month then take once weekly - Lactobacillus acidophilus (PROBIOTIC ORAL) Take by mouth. - calcium carbonate (TUMS ORAL) Take by mouth as needed. - Lactase (LACTAID FAST ACT) 9,000 unit chew Uses as needed - conjugated estrogens (PREMARIN) vaginal cream Use 0.5 g vaginally as needed. for 3 weeks then off for 1 week Problem List As Of Date 07/27/2024 Noted Resolved Family history of malignant neoplasm of gastroi*05/06/2012 Elevated fasting glucose [R73.01] 05/04/2013 03/24/2024 Low vitamin B12 level [R79.89] Primary osteoarthritis of left hip [M16.12] 02/03/2021 Multiple sclerosis (HCC) [G35] 05/31/2016 Abnormality of gait [R26.9] 06/21/2016 Osteopenia [M85.80] Chronic midline low back pain without sciatica *04/29/2019 Primary osteoarthritis of both hips [M16.0] 06/07/2020 Type 2 diabetes mellitus, without long-term cur*01/24/2021 GERD (gastroesophageal reflux disease) [K21.9] 01/24/2021 Abnormal EKG [R94.31] 01/24/2021 Vitamin D deficiency [E55.9] 03/04/2022 Elevated LDL cholesterol level [E78.00] 03/04/2022 Colon cancer screening [Z12.11] 03/04/2022 Trochanteric bursitis of right hip [M70.61] 02/08/2023 SI (sacroiliac) joint inflammation (HCC) [M46.1]06/24/2023 Former smoker [Z87.891] 06/26/2023 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] 06/27/2023 06/28/2023 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] 06/29/2023 11/19/2023 Aftercare [Z51.89] 06/30/2023 07/08/2023 Acute blood loss anemia [D62] 07/01/2023 03/24/2024 Status post right hip replacement [Z96.641] 07/04/2023 Status post hip replacement, right [Z96.641] 07/24/2023 Other acute postoperative pain [G89.18] 08/01/2023 03/24/2024 Encounter Status:Closed by MONTANA ESPARZA on 07/30/24 Normal [facility] Comprehensive metabolic 2000 panelon 07-23-2024 Albumin [Mass/Vol] 4.2 g/dL Normal 3.9-4.9 [facility] Comment on above: Order Comment: Speci men Type: BLOOD SPECIMEN Ordering Facility: [facility] Address: [address] [place] [address] Performed By: #### 2 4323-8 #### [facility] CLIA [id number] [address] [place] [address] [id number] [place] [address] [place] ALP [Catalytic activity/Vol] 67 U/L Normal 34-123 [facility] Comment on above: Order Comment: Speci men Type: BLOOD SPECIMEN Ordering Facility: [facility] Address: [address] [id number] Performed By: #### 2 4323-8 #### [facility] CLIA [id number] [address] [place] [address] [place] ALT [Catalytic activity/Vol] 14 U/L Normal 7-38 [facility] Comment on above: Order Comment: Speci men Type: BLOOD SPECIMEN Ordering Facility: [facility] Address: [address] [place] [address] Performed By: #### 2 4323-8 #### [facility] CLIA [id number] [address] [place] [address] [place] Anion gap [Moles/Vol] 11 mmol/L Normal 8-15 [facility] Comment on above: Order Comment: Speci men Type: BLOOD SPECIMEN Ordering Facility: [facility] Address: [address] [place] [address] Performed By: #### 2 4323-8 #### [facility] CLIA [id number] [address] [place] [address] [place] AST [Catalytic activity/Vol] 19 U/L Normal 13-35 [facility] Comment on above: Order Comment: Speci men Type: BLOOD SPECIMEN Ordering Facility: [facility] Address: [address] [id number] Performed By: #### 2 4323-8 #### [facility] CLIA [id number] [address] [place] [address] [place] Bilirubin [Mass/Vol] 0.4 mg/dL Normal 0.2-1.3 [facility] Comment on above: Order Comment: Speci men Type: BLOOD SPECIMEN Ordering Facility: [facility] Address: [address] [id number] Performed By: #### 2 4323-8 #### [facility] CLIA [id number] [address] [place] [address] [place] Calcium [Mass/Vol] 9.4 mg/dL Normal 8.5-10.2 [facility] Comment on above: Order Comment: Speci men Type: BLOOD SPECIMEN Ordering Facility: [facility] Address: [address] [place] [address] Performed By: #### 2 4323-8 #### [facility] CLIA [id number] [address] [place] [address] [place] Chloride [Moles/Vol] 104 mmol/L Normal 98-107 [facility] Comment on above: Order Comment: Speci men Type: BLOOD SPECIMEN Ordering Facility: [facility] Address: [address] [place] [address] Performed By: #### 2 4323-8 #### [facility] CLIA [id number] [address] [place] [address] [place] CO2 [Moles/Vol] 28 mmol/L Normal 22-30 [facility] Comment on above: Order Comment: Speci men Type: BLOOD SPECIMEN Ordering Facility: [facility] Address: [address] [place] [address] Performed By: #### 2 4323-8 #### [facility] CLIA [id number] [address] [place] [address] [place] Creatinine [Mass/Vol] 0.96 mg/dL Normal 0.58-0.96 [facility] [place] Comment on above: Order Comment: Speci men Type: BLOOD SPECIMEN Ordering Facility: [facility] Address: [address] [place] [address] Performed By: #### 2 4323-8 #### [facility] CLIA [id number] [address] [place] [address] [place] Creatinine and Glomerular filtration rate.predicted panel (S/P/Bld) 59 mL/min/1.73m??? Low >=60 [facility] Comment on above: Order Comment: Selvin frazier Type: BLOOD SPECIMEN Ordering Facility: [facility] Address: [address] [place] [address] Result Comment: Alice mated Glomerular Filtration Rate (eGFR) is calculated using the 2020 CKD-EPI creatinine equation. This equation utilizes serum creatinine, sex, and age as parameters. The creatinine assay has traceable calibration to isotope dilution-mass spectrometry. Refer to KDIGO guidelines for clinical interpretation. In patients with unstable renal function, e.g. those with acute kidney injury, the eGFR may not accurately reflect actual GFR. Performed By: #### 2 4323-8 #### [facility] CLIA [id number] [address] [place] [address] [place] Glucose [Mass/Vol] 115 mg/dL High 74-99 [facility] Comment on above: Order Comment: Selvin frazier Type: BLOOD SPECIMEN Ordering Facility: [facility] Address: [address] [place] [address] Result Comment: The [place] Diabetes Association (ADA) provides guidance for cutoff values for fasting glucose and random glucose. The ADA defines fasting as no caloric intake for at least 8 hours. Fasting plasma glucose results between 100 to 125 mg/dL indicate increased risk for diabetes (prediabetes). Fasting plasma glucose results greater than or equal to 126 mg/dL meet the criteria for diagnosis of diabetes. In the absence of unequivocal hyperglycemia, results should be confirmed by repeat testing. In a patient with classic symptoms of hyperglycemia or hyperglycemic crisis, random plasma glucose results greater than or equal to 200 mg/dL meet the criteria for diagnosis of diabetes. Reference: Standards of Medical Care in Diabetes 2016, [place] Diabetes Association. Diabetes Care. 2016.39(Suppl 1). Performed By: #### 2 4323-8 #### [facility] CLIA [id number] [address] [place] [address] [place] Potassium [Moles/Vol] 4.6 mmol/L Normal 3.7-5.1 [facility] [place] Comment on above: Order Comment: Selvin frazier Type: BLOOD SPECIMEN Ordering Facility: [facility] Address: [address] [place] [address] Performed By: #### 2 4323-8 #### [facility] CLIA [id number] [address] [place] [address] [place] Protein [Mass/Vol] 6.8 g/dL Normal 6.3-8.0 [facility] Comment on above: Order Comment: Speci men Type: BLOOD SPECIMEN Ordering Facility: [facility] Address: [address] [place] [address] Performed By: #### 2 4323-8 #### [facility] CLIA [id number] [address] [place] [address] [place] Sodium [Moles/Vol] 143 mmol/L Normal 136-144 [facility] Comment on above: Order Comment: Speci men Type: BLOOD SPECIMEN Ordering Facility: [facility] Address: [address] [place] [address] Performed By: #### 2 4323-8 #### [facility] CLIA [id number] [address] [place] [address] [place] Urea nitrogen [Mass/Vol] 31 mg/dL High 7-21 [facility] Comment on above: Order Comment: Speci men Type: BLOOD SPECIMEN Ordering Facility: [facility] Address: [address] [place] [address] Performed By: #### 2 4323-8 #### [facility] CLIA [id number] [address] [place] [address] [place] HbA1c (Bld)on 07-23-2024 Average glucose Estimated from glycated hemoglobin (Bld) [Mass/Vol] 140 mg/dL Normal [facility] Comment on above: Order Comment: Speci men Type: BLOOD SPECIMEN Ordering Facility: [facility] Address: [address] [place] [address] Result Comment: eAG: (Estimated average glucose) is a calculated value from HgbA1c and is patient account representative of the average blood glucose level in the last 2-3 month period. Performed By: #### 1 989-3 #### [facility] CLIA [id number] [address] [place] [address] [place] HbA1c (Bld) [Mass fraction] 6.5 % High 4.3-5.6 [facility] Comment on above: Order Comment: Speci men Type: BLOOD SPECIMEN Ordering Facility: [facility] Address: [address] [place] [address] Result Comment: [place]in ican Diabetes Association guidelines indicate that patients with HgbA1c in the range 5.7-6.4% are at increased risk for development of diabetes, and intervention by lifestyle modification may be beneficial. HgbA1c greater or equal to 6.5% is considered diagnostic of diabetes. Performed By: #### 1 989-3 #### [facility] CLIA [id number] [address] [place] [address] [facility] CNOVon 07-13-2024 CNOV Office Visit (ORMDNA ) TANIA ROMERO ([id number]) 1940 F Date Time Provider Department 07/13/24 10:20 AM SINCERE HOPKINS During your visit today, we recorded the following information about you: Sincere Hopkins MD 07/13/2024 10:37 AM Signed Orthopaedic Office Note: History/Subjective: Tania Romero is a 83 year old female who presents for 1 year follow up for their R MERLE. Patient is doing well. Pain is minimal at this point. She is back to most of activities that she previously enjoyed. Denies any traumas or falls denies any signs of infection denies any fevers or chills. Imaging: X-ray of the hip -This shows a well-fixed cementless total hip arthroplasty components with no signs of loosening or lucencies in the acetabular femoral component. There is no subsidence. The ball is concentrically inside established failure. Physical Examination: Exam shows incision is well-healed with no signs of dehiscence erythema or fluctuance. Motion is 0 to 100 degrees with flexion and 10 degrees of internal rotation 20 degrees of external rotation. Motor is 5/5 DF PF EHL and KE sensation is intact over the peripheral nerve distribution Assessment and Plan: Patient is now 6 months out from [facility] and doing well -Reminded on dental prophylaxis -Continue activities and weightbearing as tolerated -May take over the counter pain medication as needed -Follow-up in clinic in 1 year with repeat x-rays I spent a total of approximately 15 minutes on the date of the service which included preparing to see the patient, [id number] patient care, completing clinical documentation, obtaining and/or reviewing separately obtained history, performing a medically appropriate examination, counseling and educating the patient/family/caregive r, and care coordination (not separately reported). Sincere Hopkins MD Associate Staff Physician [facility] Department of Orthopedic Surgery Allergies As of Date: 07/13/2024 Noted Allergy Reaction AMOXICILLIN 06/24/2015 2 - Rash CLINDAMYCIN 07/12/2006 15 - Contraindication-[facility]* Comments: C diff COMPAZINE (PROCHLORPERAZINE EDISY*07/11/2006 5 - Intolerance PENICILLINS 07/11/2006 2 - Rash 5 - Intolerance Comments: Rash after 4 days of antibiotic . PROCHLORPERAZINE 06/30/2023 13 - Dystonia Date Reviewed: 07/13/2024 Reviewed by: Misti Patel OCCA - Fully Assessed Reason for Visit: Follow Up [171] Hip Replacement [324] Primary Visit Diagnosis:Status post hip replacement, right [Z96.641] Prescriptions as of 07/13/2024 - alendronate (FOSAMAX) 70 mg tablet Take 1 tablet by mouth one time a week. Take with a full glass of water, on an empty stomach; do NOT lie down for 30minutes. - metFORMIN ER (GLUCOPHAGE XR) 500 mg 24 hr tablet Take 1 tablet by mouth daily with breakfast. - meloxicam (MOBIC) 7.5 mg tablet Take 1 tablet by mouth once daily. - Syringe with Needle, Disp, (BD LUER-ISABEL SYRINGE) 3 mL 25 gauge x 1 Use for b12 injection monthly - cyanocobalamin 1,000 mcg/mL USE ONE ML INTO THE MUSCLE ONCE MONTHLY - Cholecalciferol, Vitamin D3, 125 mcg (5,000 unit) cap Hold for 1 month then take once weekly - Lactobacillus acidophilus (PROBIOTIC ORAL) Take by mouth. - calcium carbonate (TUMS ORAL) Take by mouth as needed. - Lactase (LACTAID FAST ACT) 9,000 unit chew Uses as needed - conjugated estrogens (PREMARIN) vaginal cream Use 0.5 g vaginally as needed. for 3 weeks then off for 1 week Problem List As Of Date 07/13/2024 Noted Resolved Family history of malignant neoplasm of gastroi*05/06/2012 Elevated fasting glucose [R73.01] 05/04/2013 03/24/2024 Low vitamin B12 level [R79.89] Primary osteoarthritis of left hip [M16.12] 02/03/2021 Multiple sclerosis (HCC) [G35] 05/31/2016 Abnormality of gait [R26.9] 06/21/2016 Osteopenia [M85.80] Chronic midline low back pain without sciatica *04/29/2019 Primary osteoarthritis of both hips [M16.0] 06/07/2020 Type 2 diabetes mellitus, without long-term cur*01/24/2021 GERD (gastroesophageal reflux disease) [K21.9] 01/24/2021 Abnormal EKG [R94.31] 01/24/2021 Vitamin D deficiency [E55.9] 03/04/2022 Elevated LDL cholesterol level [E78.00] 03/04/2022 Colon cancer screening [Z12.11] 03/04/2022 Trochanteric bursitis of right hip [M70.61] 02/08/2023 SI (sacroiliac) joint inflammation (HCC) [M46.1]06/24/2023 Former smoker [Z87.891] 06/26/2023 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] 06/27/2023 06/28/2023 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] 06/29/2023 11/19/2023 Aftercare [Z51.89] 06/30/2023 07/08/2023 Acute blood loss anemia [D62] 07/01/2023 03/24/2024 Status post right hip replacement [Z96.641] 07/04/2023 Status post hip replacement, right [Z96.641] 07/24/2023 Other acute postoperative pain [G89.18] 08/01/2023 03/24/2024 Level of Service: OFFICE/OUTPATIENT ESTAB (more content not included)... Normal [facility] XR HIP 3V PELV+ AP/LAT RTon 07-13-2024 XR HIP 3V PELV+ AP/LAT RT * * *Final Report* * * DATE OF EXAM: Jul 13 2024 10:21AM CATARINA [id number] - XR HIP 3V PELV+ AP/LAT RT / PROCEDURE REASON: Z96.641-Status post hip replacement, right * * * * Physician Interpretation * * * * EXAMINATION / TECHNIQUE: XR HIP 3V PELV+ AP/LAT RT HISTORY: f/u right hip Status post hip replacement, right COMPARISON: 05/07/2024. FINDINGS: Status post total hip arthroplasty with orthopedic hardware in standard position and alignment. There is no periprosthetic lucency or fracture. Intact right hip arthroplasty. IMPRESSION: Status post right total hip arthroplasty without evidence of complication. [employer] Assistant Principal: PSCB Transcribe Date/Time: Jul 19 2024 7:47P Dictated by : JIMMY BALTAZAR MD This examination was interpreted and the report reviewed and electronically signed by: JIMMY BALTAZAR MD on Jul 19 2024 7:47PM EST [id number] Normal [facility] CBC W Auto Differential pane l (Bld)on 07-06-2024 Basophils (Bld) [#/Vol] 0.04 10*3/uL Normal <0.11 [facility] Comment on above: Order Comment: Speci men Type: BLOOD SPECIMENOrdering Facility: [facility] Address: [address] [place] [address] Performed By: #### 5 7021-8 ####[facility] [id number] [place] [address] [place] Basophils/100 WBC (Bld) 0.4 % Normal [facility] Comment on above: Order Comment: Speci men Type: BLOOD SPECIMENOrdering Facility: [facility] Address: [address] [place] [address] Performed By: #### 5 7021-8 ####[facility] [id number] [place] [address] [place] Differential cell count method Nom (Bld) Auto Normal [facility] Comment on above: Order Comment: Speci men Type: BLOOD SPECIMENOrdering Facility: [facility] Address: [address] [place] [address] Performed By: #### 5 7021-8 ####[facility] [id number] [place] [address] [place] Eosinophils (Bld) [#/Vol] 0.17 10*3/uL Normal <0.46 [facility] Comment on above: Order Comment: Speci men Type: BLOOD SPECIMENOrdering Facility: [facility] Address: [address] [place] [address] Performed By: #### 5 7021-8 ####[facility] [id number] [place] [address] [place] Eosinophils/100 WBC (Bld) 1.9 % Normal [facility] Comment on above: Order Comment: Speci men Type: BLOOD SPECIMENOrdering Facility: [facility] Address: [address] [place] [address] Performed By: #### 5 7021-8 ####[facility] [id number] [place] [address] [place] Erythrocyte distribution width (RBC) [Ratio] 13.5 % Normal 11.5-15.0 [facility] Comment on above: Order Comment: Speci men Type: BLOOD SPECIMENOrdering Facility: [facility] Address: [address] [place] [address] Performed By: #### 5 7021-8 ####[facility] [id number] [place] [address] [place] Hematocrit (Bld) [Volume fraction] 38.9 % Normal 36.0-46.0 [facility] Comment on above: Order Comment: Speci men Type: BLOOD SPECIMENOrdering Facility: [facility] Address: [address] [place] [address] Performed By: #### 5 7021-8 ####[facility] [id number] [place] [address] [place] Hemoglobin (Bld) [Mass/Vol] 12.4 g/dL Normal 11.5-15.5 [facility] Comment on above: Order Comment: Speci men Type: BLOOD SPECIMENOrdering Facility: [facility] Address: [address] [place] [address] Performed By: #### 5 7021-8 ####[facility] [id number] [place] [address] [place] Immature granulocytes (Bld) [#/Vol] 10*3/uL Normal <0.10 [facility] Comment on above: Order Comment: Speci men Type: BLOOD SPECIMENOrdering Facility: [facility] Address: [address] [place] [address] Performed By: #### 5 7021-8 ####[facility] [id number] [place] [address] [place] Immature granulocytes/100 WBC (Bld) 0.2 % Normal [facility] Comment on above: Order Comment: Speci men Type: BLOOD SPECIMENOrdering Facility: [facility] Address: [address] [place] [address] Performed By: #### 5 7021-8 ####[facility] [id number] [place] [address] [place] Lymphocytes (Bld) [#/Vol] 2.49 10*3/uL Normal 1.00-4.00 [facility] Comment on above: Order Comment: Speci men Type: BLOOD SPECIMENOrdering Facility: [facility] Address: [address] [place] [address] Performed By: #### 5 7021-8 ####[facility]IA [id number] [place] [address] [place] Lymphocytes/100 WBC (Bld) 27.7 % Normal [facility] Comment on above: Order Comment: Speci men Type: BLOOD SPECIMENOrdering Facility: [facility] Address: [address] [place] [address] Performed By: #### 5 7021-8 ####[facility]IA [id number] [place] [address] [place] MCH (RBC) [Entitic mass] 28.7 pg Normal 26.0-34.0 [facility] Comment on above: Order Comment: Speci men Type: BLOOD SPECIMENOrdering Facility: [facility] Address: [address] [place] [address] Performed By: #### 5 7021-8 ####[facility]IA [id number] [place] [address] [place] MCHC (RBC) [Mass/Vol] 31.9 g/dL Normal 30.5-36.0 [facility] [place] Comment on above: Order Comment: Speci men Type: BLOOD SPECIMENOrdering Facility: [facility] Address: [address] [place] [address] Performed By: #### 5 7021-8 ####[facility]IA [id number] [place] [address] [place] MCV (RBC) [Entitic vol] 90.0 fL Normal 80.0-100.0 [facility] Comment on above: Order Comment: Speci men Type: BLOOD SPECIMENOrdering Facility: [facility] Address: [address] [place] [address] Performed By: #### 5 7021-8 ####[facility] [id number] [place] [address] [place] Monocytes (Bld) [#/Vol] 0.81 10*3/uL Normal <0.87 [facility] Comment on above: Order Comment: Speci men Type: BLOOD SPECIMENOrdering Facility: [facility] Address: [address] [place] [address] Performed By: #### 5 7021-8 ####[facility] [id number] [place] [address] [place] Monocytes/100 WBC (Bld) 9.0 % Normal [facility] Comment on above: Order Comment: Speci men Type: BLOOD SPECIMENOrdering Facility: [facility] Address: [address] [place] [address] Performed By: #### 5 7021-8 ####[facility] [id number] [place] [address] [place] Neutrophils (Bld) [#/Vol] 5.45 10*3/uL Normal 1.45-7.50 [facility] Comment on above: Order Comment: Speci men Type: BLOOD SPECIMENOrdering Facility: [facility] Address: [address] [place] [address] Performed By: #### 5 7021-8 ####[facility] [id number] [place] [address] [place] Neutrophils/100 WBC (Bld) 60.8 % Normal [facility] Comment on above: Order Comment: Speci men Type: BLOOD SPECIMENOrdering Facility: [facility] Address: [address] [place] [address] Performed By: #### 5 7021-8 ####[facility] [id number] [place] [address] [place] Nucleated RBC (Bld) [#/Vol] 10*3/uL Normal <0.01 [facility] Comment on above: Order Comment: Speci men Type: BLOOD SPECIMENOrdering Facility: [facility] Address: [address] [place] [address] Performed By: #### 5 7021-8 ####[facility] [id number] [place] [address] [place] Nucleated RBC/100 WBC (Bld) [Ratio] 0.0 /100 WBC Normal [facility] Comment on above: Order Comment: Speci men Type: BLOOD SPECIMENOrdering Facility: [facility] Address: [address] [place] [address] Performed By: #### 5 7021-8 ####[facility] [id number] [place] [address] [place] Platelet mean volume (Bld) [Entitic vol] 9.9 fL Normal 9.0-12.7 [facility] Comment on above: Order Comment: Speci men Type: BLOOD SPECIMENOrdering Facility: [facility] Address: [address] [place] [address] Performed By: #### 5 7021-8 ####[facility]IA [id number] [place] [address] [place] Platelets (Bld) [#/Vol] 306 10*3/uL Normal 150-400 [facility] Comment on above: Order Comment: Speci men Type: BLOOD SPECIMENOrdering Facility: [facility] Address: [address] [place] [address] Performed By: #### 5 7021-8 ####[facility]IA [id number] [place] [address] [place] RBC (Bld) [#/Vol] 4.32 10*6/uL Normal 3.90-5.20 [facility] Comment on above: Order Comment: Speci men Type: BLOOD SPECIMENOrdering Facility: [facility] Address: [address] [place] [address] Performed By: #### 5 7021-8 ####[facility] [id number] [place] [id number] [place] WBC (Bld) [#/Vol] 8.98 10*3/uL Normal 3.70-11.00 [facility] Comment on above: Order Comment: Speci men Type: BLOOD SPECIMENOrdering Facility: [facility] [address] [place] [id number] Performed By: #### 5 7021-8 ####[facility] [id number] [place] [id number] [place] CNOVon 07-06-2024 CNOV Office Visit (INTMWS ) TANIA ROMERO ([id number]) 1940 F Date Time Provider Department 07/06/24 10:20 AM LUIS MANUEL HERNANDEZ INTJamieWS During your visit today, we recorded the following information about you: Pulse Respiration Blood pressure Weight 71/minute 16/minute 133/74 49.6 kg Mame Palencia 07/27/2024 7:30 PM Unsigned Can Filling And Closing Machine Tender Patient Name: Tania Romero : 1940 Ordering Provider: LUIS MANUEL HERNANDEZ Indication: R42 Dizziness and giddiness Type of Monitor: Extended Monitoring-Zio Patch Enrollment Dates: 07/06/2024-07/20/2024 IRHYTHM FINDINGS: Patient had a min HR of 52 bpm, max HR of 214 bpm, and avg HR of 83 bpm. Predominant underlying rhythm was Sinus Rhythm. 76 Supraventricular Tachycardia runs occurred, the run with the fastest interval lasting 2 mins 16 secs with a max rate of 214 bpm, the longest lasting 34 mins 22 secs with an avg rate of 131 bpm. Isolated SVEs were rare (<1.0%), SVE Couplets were rare (<1.0%), and SVE Triplets were rare (<1.0%). Isolated VEs were rare (<1.0%), VE Couplets were rare (<1.0%), and no VE Triplets were present. MD notification criteria for Supraventricular Tachycardia met - Notified [place] on 27 Jul 2024 at 6:[address] (KR). Luis Manuel Hernandez, REFRIGERATION BRAZER/SOLDERER.DRAW HAND 07/28/2024 7:57 AM Addendum SUBJECTIVE: Depression Screening Never done Anxiety Screening Never done HPI Tania Romero is a 83 year old female. PMH signficant for ACTIVE PROBLEM LIST Family History of Malignant Neoplasm of Gastrointestinal Tract Low Vitamin B12 Level Multiple Sclerosis (Hcc) Abnormality of Gait Osteopenia Chronic Midline Low Back Pain Without Sciatica Primary Osteoarthritis of Both Hips Type 2 Diabetes Mellitus, Without Long-Term Current Use of Insulin (Hcc) Gerd (Gastroesophageal Reflux Disease) Abnormal Ekg Vitamin D Deficiency Elevated Ldl Cholesterol Level Colon Cancer Screening Trochanteric Bursitis of Right Hip Si (Sacroiliac) Joint Inflammation (Hcc) Former Smoker Status Post Right Hip Replacement Status Post Hip Replacement, Right Presents today for report of presyncope which has occurred several times since last seen n office. She sent a message to the office on May 09, 2024 reporting feeling lightheaded while grocery shopping with upper chest pain. She reported squad was called and revealed normal EKG and symptoms resolved. She requested a visit as soon as possible. She was offered a same-day appointment but came into the clinic 9 days later as she had company. She was advised to go to ER if any recurrence. She was seen by Bg Chavarria MD May 18. At this visit she reported another episode of near syncope at a republican since her last visit, did not seek care at this time. PCP notes that initial EKG per EMS with first episode showed AF, but subsequent EKG NSR. She noted family history of heart disease requiring surgery and low blood pressure. She recommended additional workup if episodes persist including heart monitor. Advised use for instructed to monitor heart rate during episodes. Advised to maintain hydration and increase sodium intake. Seen by [facility] for preoperative evaluation 2020, stress test was negative for ischemia. TTE with normal LVEF and no significant valvular abnormalities. Today reports now that presyncopal episodes have happened a few times since last here. Can happen at rest and with activity. Notes if she rests or sets her head down quickly when occurs it passes in seconds. If not able to rest right away then gets throat tightness, shortness of breath, not sure if associated palpitations. She notes recently happened at her local store, symptoms past with lying down. She notes trying to maintain hydration which does seem to help somewhat. Home BP/HR: no recent checks.Did not get a fitness tracker. Currently following with [facility]: only for pre-operative clearance 2020, no recent follow up HTN: Without report of headache, palpitations, peripheral edema, orthopnea, fatigue, and PND. No syncope, only pre-syncope. Last 14 Encounter BP Readings: Date: BP: 07/06/2024 133/74 05/18/2024 134/68 03/31/2024 144/80 03/24/2024 110/70 11/18/2023 112/74 07/15/2023 123/78 06/30/2023 159/86 06/27/2023 101/56 06/21/2023 88/53 06/20/2023 148/70 06/06/2023 102/45 05/03/2023 122/68 03/15/2023 112/62 02/04/2023 114/64 Notes no recent MS flare symptoms. Neurologist: Previously followed at [facility], Dr Andrea Dobbins. No current neurologist no recent visit. Last MRI 2018: IMPRESSION: Multiple intracranial white matter lesions compatible with multiple sclerosis. No new T2 lesions and no new enhancing lesions. Mild parenchymal volume loss. Other significant findings: None. DIABETES MELLITUS: Without report of excessive thirst or increased frequency of urination, chest pain or dysp (more content not included)... Normal [facility] ECG COMPLETEon 07-06-2024 Atrial Rate 59 BPM [facility] Calculated P [place] 34 degrees [facility] Calculated R [place] -[address] [facility] Calculated T [place] 17 degrees [facility] P-R Interval 144 ms [facility] QRS Duration 68 ms [facility] QT Interval 406 ms [facility] QTC Calculation (Bazett) 401 ms [facility] Ventricular Rate 59 BPM [facility] SINUS BRADYCARDIA LEFT AXIS DEVIATION ANTERIOR MYOCARDIAL INFARCTION , AGE UNDETERMINED ABNORMAL ECG Confirmed by MD BUCKLEY GREGORY () on 07/06/2024 5:34:23 PM [facility] [place] NAME : CRIS ROMERO PID : [id number] : 1940 Gender : Female Race : ORD : [id number] Procedure Date : Jul 06 2024 11:40:56 Edit Date : Jul 06 2024 17:34:24 Diagnosis: SINUS BRADYCARDIA LEFT AXIS DEVIATION ANTERIOR MYOCARDIAL INFARCTION , AGE UNDETERMINED ABNORMAL ECG Confirmed by MD BUCKLEY GREGORY () on 07/06/2024 5:34:23 PM Test Reason : R42 Postural dizziness with presyncope Location : 185 : [facility] Overread By : MD BUCKLEY GREGORY Edited By : MD BUCKLEY GREGORY Referred By : LUIS MANUEL HERNANDEZ Acquired by : Peter PETERSON, [facility] ECG COMPLETE Ventricular Rate : 5 9 BPM Atrial Rate : 59 BPM P-R Interval : 144 ms QRS Duration : 68 ms Q-T Interval : 406 ms QTC Calculation(Bazett) : 401 ms Calculated P [place] : 34 degrees Calculated R [place] : -30 degrees Calculated T [place] : 17 degrees SINUS BRADYCARDIA LEFT AXIS DEVIATION ANTERIOR MYOCARDIAL INFARCTION , AGE UNDETERMINED ABNORMAL ECG Confirmed by MD BUCKLEY GREGORY () on 07/06/2024 5:34:23 PM NAME : TANIA ROMERO PID : [id number] : 1940 Gender : Female Race : ORD : [id number] Procedure Date : Jul 06 2024 11:40:56 Edit Date : Jul 06 2024 17:34:24 Diagnosis: SINUS BRADYCARDIA LEFT AXIS DEVIATION ANTERIOR MYOCARDIAL INFARCTION , AGE UNDETERMINED ABNORMAL ECG Confirmed by MD BUCKLEY GREGORY () on 07/06/2024 5:34:23 PM Test Reason : R42 Postural dizziness with presyncope Location : 185 : [facility] Overread By : MD BUCKLEY GREGORY Edited By : MD BUCKLEY GREGORY Referred By : LUIS MANUEL HERNANDEZ Acquired by : Peter PETERSON, Rodolfo [facility] TSH SerPl-aCncon 07-06-2024 TSH Qn 2.300 m[IU]/L Normal 0.270-4.200 [facility] Comment on above: Order Comment: Selvin frazier Type: BLOOD SPECIMEN Ordering Facility: [facility] Address: [address] [place] [address] Performed By: #### [id number] #### [facility] CLIA [id number] [address] [place] [address] [place] [address] [place] [facility] CNOVon 05-18-2024 CNOV Office Visit (INTMWS ) TANIA ROMERO ([id number]) 1940 F Date Time Provider Department 05/18/24 10:00 AM BG CHAVARRIA INTMWS During your visit today, we recorded the following information about you: Temperature Pulse Respiration Blood pressure 97.4 degrees 79/minute 16/minute 134/68 Weight 50 kg Bg Chavarria MD 05/18/2024 10:46 AM Signed This note was created using [employer]. Subjective Tania Romero is a 83 year old female. Patient presents with: Established Patient: Follow up lightheaded and chest pain SUBJECTIVE: Tania Romero is a 83 year old year old lady here today for follow up appointment for review of medical conditions. Patient is an 83-year-old female presenting for follow-up on recent episodes of lightheadedness and chest pain. Patient reports two recent episodes of lightheadedness and chest pain that were different from her previous experiences. She has a long history of similar episodes, which she previously attributed to dehydration or low blood sugar and managed by drinking fluids or eating. However, these recent episodes were more severe and occurred under different circumstances. 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 She felt lightheaded while sitting on a bar stool and attempted to lower her head to the table but ended up passing out and hitting her head on the table leg. This was the first time she had ever passed out during such an episode. The second episode occurred while grocery shopping. She felt lightheaded and asked for a place to sit but was not provided one immediately. She eventually sat in a wheelchair but did not pass out. The episode did not resolve quickly, leading to increased anxiety and the decision to call emergency services. An EKG performed by the emergency responders was normal, and the episode resolved after drinking water. Patient has a history of low blood pressure and a family history of low blood pressure and heart surgery. She had an echocardiogram and a chemical stress test three years ago, which showed an abnormality but was not considered significant. She also had an EKG last year that showed possible left atrium enlargement and some nonspecific findings. Patient reports occasional episodes of lightheadedness and dizziness. She does not currently monitor her blood pressure during these episodes but has a blood pressure cuff at home. She tries to stay hydrated and has been increasing her salt intake. She has also experienced episodes of feeling lightheaded while driving, which resolved after drinking water. She reports that her heart rate increases during these episodes, and she sometimes feels hot and sweaty. She also reports a sensation of phlegm in her throat and difficulty swallowing during the last episode in the grocery store. Patient's , Alcira, recently had a quadruple bypass surgery, which has increased her concern about her own symptoms. She has not made any recent changes to her medications. PAST MEDICAL HISTORY No date: Arthritis No date: DJD (degenerative joint disease) of hip Comment: Left--Dr. Vasquez (worse from 2011 to 2012) No date: Low vitamin B12 level 05/31/2016: Multiple sclerosis (HCC) No date: Osteopenia 01/24/2021: Type 2 diabetes mellitus, without long-term current use of insulin ([facility]) Current Outpatient Medications Medication Sig alendronate (FOSAMAX) 70 mg tablet Take 1 tablet by mouth one time a week. Take with a full glass of water, on an empty stomach; do NOT lie down for 30minutes. metFORMIN ER (GLUCOPHAGE XR) 500 mg 24 hr tablet Take 1 tablet by mouth daily with breakfast. meloxicam (MOBIC) 7.5 mg tablet Take 1 tablet by mouth once daily. Syringe with Needle, Disp, (BD LUER-ISABEL SYRINGE) 3 mL 25 gauge x 1 Use for b12 injection monthly cyanocobalamin 1,000 mcg/mL USE ONE ML INTO THE MUSCLE ONCE MONTHLY Cholecalciferol, Vitamin D3, 125 mcg (5,000 unit) cap Hold for 1 month then take once weekly Lactobacillus acidophilus (PROBIOTIC ORAL) Take by mouth. calcium carbonate (TUMS ORAL) Take by mouth as needed. Lactase (LACTAID FAST ACT) 9,000 unit chew Uses as needed conjugated estrogens (PREMARIN) vaginal cream Use 0.5 g vaginally as needed. for 3 weeks then off for 1 week No current facility-administered medications for this visit. Review of Systems Objective BP 134/68 Pulse 79 Temp 36.3 ?C (97.4 ?F) Resp 16 Wt 50 kg (110 lb 3.7 oz) SpO2 97% BMI 21.53 kg/m? Last 5 Encounter Wt Readings: Date: Wt: 05/18/2024 50 kg (110 lb 3.7 oz) 03/31/2024 49.4 kg (108 lb 14.4 oz) 03/24/2024 49.9 kg (110 lb) 11/18/2023 50.3 kg (110 lb 12.8 oz) 07/15/2023 52.6 kg (116 lb) No waist measurement recorded Estimated body mass index is 21.53 kg/m? as calculated from the following: Height as of 11/18/23: 152.4 cm (5'). W (more content not included)... Normal [facility] CNOVon 05-07-2024 CNOV Office Visit (ORQUIDEA ) TANIA ROMERO ([id number]) 1940 F Date Time Provider Department 05/07/24 2:00 PM LORENA JACOBSEN During your visit today, we recorded the following information about you: Lorena Jacobsen MD 05/08/2024 8:28 AM Signed Orthopaedic Office Note: History/Subjective: Tania Romero is s/p b/l THAs previously Here for checkup, had fall on L knee Wanted to have hip checked Some knee swelling, otherwise pain almost completely subsided Imaging: Well appearing b/l THAs no complication Physical Examination: Both hips excellent ROM No pain with hip ROM Neg stinchfield Prepatellar bursal swelling, L knee only No erythema, effusion Assessment and Plan: Tania Romero had a fall, now swelling/pain at knee resolving. Ambulating well. Both hips functioning well without complication. Continued conservative mgmt and elizabeth wraps for swelling L knee. All questions answered. Red flag symptoms discussed. F/U as needed I spent a total of approximately 15 minutes on the date of the service which included preparing to see the patient, [id number] patient care, completing clinical documentation, obtaining and/or reviewing separately obtained history, performing a medically appropriate examination, counseling and educating the patient/family/caregive r, and care coordination (not separately reported). Lorena Jacobsen MD Orthopaedic Surgery Allergies As of Date: 05/07/2024 Noted Allergy Reaction AMOXICILLIN 06/24/2015 2 - Rash CLINDAMYCIN 07/12/2006 15 - Contraindication-[facility]* Comments: C diff COMPAZINE (PROCHLORPERAZINE EDISY*07/11/2006 5 - Intolerance PENICILLINS 07/11/2006 2 - Rash 5 - Intolerance Comments: Rash after 4 days of antibiotic . PROCHLORPERAZINE 06/30/2023 13 - Dystonia Date Reviewed: 05/07/2024 Reviewed by: Misti Patel OCCA - Fully Assessed Reason for Visit: Follow Up [171] Hip Replacement [324] Primary Visit Diagnosis:Status post total replacement of left hip [Z96.642] Other Visit Diagnoses:Status post hip replacement, right [Z96.641] Fall, initial encounter [W19.XXXA] Prescriptions as of 05/08/2024 - alendronate (FOSAMAX) 70 mg tablet Take 1 tablet by mouth one time a week. Take with a full glass of water, on an empty stomach; do NOT lie down for 30minutes. - metFORMIN ER (GLUCOPHAGE XR) 500 mg 24 hr tablet Take 1 tablet by mouth daily with breakfast. - meloxicam (MOBIC) 7.5 mg tablet Take 1 tablet by mouth once daily. - Syringe with Needle, Disp, (BD LUER-ISABEL SYRINGE) 3 mL 25 gauge x 1 Use for b12 injection monthly - cyanocobalamin 1,000 mcg/mL USE ONE ML INTO THE MUSCLE ONCE MONTHLY - Cholecalciferol, Vitamin D3, 125 mcg (5,000 unit) cap Hold for 1 month then take once weekly - Lactobacillus acidophilus (PROBIOTIC ORAL) Take by mouth. - calcium carbonate (TUMS ORAL) Take by mouth as needed. - Lactase (LACTAID FAST ACT) 9,000 unit chew Uses as needed - conjugated estrogens (PREMARIN) vaginal cream Use 0.5 g vaginally as needed. for 3 weeks then off for 1 week Problem List As Of Date 05/07/2024 Noted Resolved Family history of malignant neoplasm of gastroi*05/06/2012 Elevated fasting glucose [R73.01] 05/04/2013 03/24/2024 Low vitamin B12 level [R79.89] Primary osteoarthritis of left hip [M16.12] 02/03/2021 Multiple sclerosis (HCC) [G35] 05/31/2016 Abnormality of gait [R26.9] 06/21/2016 Osteopenia [M85.80] Chronic midline low back pain without sciatica *04/29/2019 Primary osteoarthritis of both hips [M16.0] 06/07/2020 Type 2 diabetes mellitus, without long-term cur*01/24/2021 GERD (gastroesophageal reflux disease) [K21.9] 01/24/2021 Abnormal EKG [R94.31] 01/24/2021 Vitamin D deficiency [E55.9] 03/04/2022 Elevated LDL cholesterol level [E78.00] 03/04/2022 Colon cancer screening [Z12.11] 03/04/2022 Trochanteric bursitis of right hip [M70.61] 02/08/2023 SI (sacroiliac) joint inflammation (HCC) [M46.1]06/24/2023 Former smoker [Z87.891] 06/26/2023 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] 06/27/2023 06/28/2023 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] 06/29/2023 11/19/2023 Aftercare [Z51.89] 06/30/2023 07/08/2023 Acute blood loss anemia [D62] 07/01/2023 03/24/2024 Status post right hip replacement [Z96.641] 07/04/2023 Status post hip replacement, right [Z96.641] 07/24/2023 Other acute postoperative pain [G89.18] 08/01/2023 03/24/2024 Encounter Status:Closed by LORENA JACOBSEN on 05/08/24 [facility] XR HIP 2V AP/ LAT LTon 05-07 XR HIP 2V AP/ LAT LT * * *Final Report* * * DATE OF EXAM: May 07 2024 1:35PM CATARINA 5279 - XR HIP 2V AP/ LAT LT / PROCEDURE REASON: M25.552-Pain in left hip * * * * Physician Interpretation * * * * EXAM(s): XR HIP 2V AP/ LAT LT EXAM DATE/TIME: 05/07/2024 1:35 PM HISTORY: 83 years old Clinical information: Pain in left hip Follow-up for left hip replacement Low pelvis (wt bearing, if possible) cross table lateral TECHNIQUE: Images: XR HIP 2V AP/ LAT LT Comparison: 10/16/2023 RESULT: Findings: Bilateral findings: The components of the bilateral hip arthroplasties are in good alignment with the respective bones and each other. There is no evidence of loosening of the components. Right :No fractures or dislocations are seen. Left :No fractures or dislocations are seen. IMPRESSION: Stable bilateral total hip arthroplasties [employer]: HYUN Transcribe Date/Time: May 07 2024 2:24P Dictated by : BELKIS MAGAÑA DO This examination was interpreted and the report reviewed and electronically signed by: BELKIS MAGAÑA DO on May 07 2024 2:25PM EST [id number] [facility] XR Hip - left AP and Lateral on 05-07-2024 IMPRESSION: Stable bilateral total hip arthroplasties [employer] Assistant Principal: HYUN Transcribe Date/Time: May 07 2024 2:24P Dictated by : BELKIS MAGAÑA DO This examination was interpreted and the report reviewed and electronically signed by: BELKIS MAGAÑA DO on May 07 2024 2:25PM EST [facility] * * *Final Report* * * DATE OF EXAM: May 07 2024 1:35PM [facility] 5279 - XR HIP 2V AP/ LAT LT / PROCEDURE REASON: M25.552-Pain in left hip * * * * Physician Interpretation * * * * EXAM(s): XR HIP 2V AP/ LAT LT EXAM DATE/TIME: 05/07/2024 1:35 PM HISTORY: 83 years old Clinical information: Pain in left hip Follow-up for left hip replacement Low pelvis (wt bearing, if possible) cross table lateral TECHNIQUE: Images: XR HIP 2V AP/ LAT LT Comparison: 10/16/2023 RESULT: Findings: Bilateral findings: The components of the bilateral hip arthroplasties are in good alignment with the respective bones and each other. There is no evidence of loosening of the components. Right :No fractures or dislocations are seen. Left :No fractures or dislocations are seen. [facility] Provider, [facility] - 05/07/2024 * * *Final Report* * * DATE OF EXAM: May 07 2024 1:35PM [facility] 5279 - XR HIP 2V AP/ LAT LT / PROCEDURE REASON: M25.552-Pain in left hip * * * * Physician Interpretation * * * * EXAM(s): XR HIP 2V AP/ LAT LT EXAM DATE/TIME: 05/07/2024 1:35 PM HISTORY: 83 years old Clinical information: Pain in left hip Follow-up for left hip replacement Low pelvis (wt bearing, if possible) cross table lateral TECHNIQUE: Images: XR HIP 2V AP/ LAT LT Comparison: 10/16/2023 RESULT: Findings: Bilateral findings: The components of the bilateral hip arthroplasties are in good alignment with the respective bones and each other. There is no evidence of loosening of the components. Right :No fractures or dislocations are seen. Left :No fractures or dislocations are seen. IMPRESSION IMPRESSION: Stable bilateral total hip arthroplasties [employer] Assistant Principal: HYUN Transcribe Date/Time: May 07 2024 2:24P Dictated by : BELKIS MAGAÑA DO This examination was interpreted and the report reviewed and electronically signed by: BELKIS MAGAÑA DO on May 07 2024 2:25PM [facility] Radiology Study observation (narrative) [facility] XR Hip - left AP and Lateral Ordered By: [facility] Provider on 05-07-2024 [facility] XR Knee - left 4 Viewson IMPRESSION: No acute fracture. Degenerative disease of bilateral knees. [employer] Principal: HYUN Transcribe Date/Time: Apr 06 2024 4:07P Dictated by : ALIZA NDIAYE MD This examination was interpreted and the report reviewed and electronically signed by: ALIZA NDIAYE MD on Apr 06 2024 4:08PM [facility] OF [facility]OLOG[facility] * * *Final Report* * * DATE OF EXAM: Mar 31 2024 10:39AM WOX [id number] - XR KNEE 4V AP/PA BOTH+LAT/VERENA LT / PROCEDURE REASON: multiple diagnoses * * * * Physician Interpretation * * * * EXAMINATION: XR KNEE 4V AP/PA BOTH+LAT/VERENA LT CLINICAL HISTORY: Left knee pain Technique: XR KNEE 4V AP/PA BOTH+LAT/VERENA LT -- LEFT with 4 views on 4 images Comparison: None RESULT: No acute fracture or dislocation. Bilateral medial compartment joint space narrowing with tricompartment marginal osteophytes. Costochondral calcifications. [facility]OLOGY Provider, [facility] - 04/06/2024 * * *Final Report* * * DATE OF EXAM: Mar 31 2024 10:39AM WOX 5202 - XR KNEE 4V AP/PA BOTH+LAT/VERENA LT / PROCEDURE REASON: multiple diagnoses * * * * Physician Interpretation * * * * EXAMINATION: XR KNEE 4V AP/PA BOTH+LAT/VERENA LT CLINICAL HISTORY: Left knee pain Technique: XR KNEE 4V AP/PA BOTH+LAT/VERENA LT -- LEFT with 4 views on 4 images Comparison: None RESULT: No acute fracture or dislocation. Bilateral medial compartment joint space narrowing with tricompartment marginal osteophytes. Costochondral calcifications. IMPRESSION IMPRESSION: No acute fracture. Degenerative disease of bilateral knees. [employer] Assistant Principal: PSCB Transcribe Date/Time: Apr 06 2024 4:07P Dictated by : ALIZA NDIAYE MD This examination was interpreted and the report reviewed and electronically signed by: ALIZA NDIAYE MD on Apr 06 2024 4:08PM EST [facility] XR Knee - left 4 ViewsOrdere d By: [facility] Provider on 04-06-2024 [facility] XR Knee - left 4 Viewson Radiology Study observation (narrative) [facility] HEMOGLOBIN A1C (POC)on 11-18 HbA1c (Bld) [Mass fraction] 6.6 % Abnormal 4.3 - 5.6 % [facility] XR Pelvis and Hip - right AP and Lateral frogon 10-17-2023 IMPRESSION: Right hip total arthroplasty without evidence of hardware complication.. [employer] Assistant Principal: PSCB Transcribe Date/Time: Oct 17 2023 1:54P Dictated by : CONNIE OSUNA MD This examination was interpreted and the report reviewed and electronically signed by: CONNIE OSUNA MD on Oct 17 2023 1:56PM [facility] * * *Final Report* * * DATE OF EXAM: Oct 16 2023 3:41PM [facility] 5352 - XR HIP 3V PELV+ AP/LAT RT / PROCEDURE REASON: Z96.641-Status post hip replacement, right * * * * Physician Interpretation * * * * EXAM(s): XR HIP 3V PELV+ AP/LAT RT EXAM DATE/TIME: 10/16/2023 3:41 PM HISTORY: 83 years old Clinical information: Status post hip replacement, right Pain TECHNIQUE: Images: XR HIP 3V PELV+ AP/LAT RT Comparison: Right hip radiograph 07/12/2023 RESULT: Findings: Bone density appears well-preserved. No fractures or dislocations are seen. Right hip total arthroplasty with well-seated components. No evidence of hardware complication. Left hip total arthroplasty with well-seated components on AP view. Lower lumbar spondylosis. Degenerative changes bilateral sacroiliac joints and pubic symphysis. Bony demineralization. [facility] Provider, [facility] [place] - 10/17/2023 * * *Final Report* * * DATE OF EXAM: Oct 16 2023 3:41PM [facility] 5352 - XR HIP 3V PELV+ AP/LAT RT / PROCEDURE REASON: Z96.641-Status post hip replacement, right * * * * Physician Interpretation * * * * EXAM(s): XR HIP 3V PELV+ AP/LAT RT EXAM DATE/TIME: 10/16/2023 3:41 PM HISTORY: 83 years old Clinical information: Status post hip replacement, right Pain TECHNIQUE: Images: XR HIP 3V PELV+ AP/LAT RT Comparison: Right hip radiograph 07/12/2023 RESULT: Findings: Bone density appears well-preserved. No fractures or dislocations are seen. Right hip total arthroplasty with well-seated components. No evidence of hardware complication. Left hip total arthroplasty with well-seated components on AP view. Lower lumbar spondylosis. Degenerative changes bilateral sacroiliac joints and pubic symphysis. Bony demineralization. IMPRESSION IMPRESSION: Right hip total arthroplasty without evidence of hardware complication.. [employer] Assistant Principal: [facility] Transcribe Date/Time: Oct 17 2023 1:54P Dictated by : CONNIE OSUNA MD This examination was interpreted and the report reviewed and electronically signed by: CONNIE OSUNA MD on Oct 17 2023 1:56PM [facility] XR Pelvis and Hip - right AP and Lateral frogOrdered By: [facility] Provider on 10-17-2023 [facility] XR HIP 3V PELV+ AP/LAT RTon 10-16-2023 XR HIP 3V PELV+ AP/LAT RT * * *Final Report* * * DATE OF EXAM: Oct 16 2023 3:41PM [facility] 5352 - XR HIP 3V PELV+ AP/LAT RT / PROCEDURE REASON: Z96.641-Status post hip replacement, right * * * * Physician Interpretation * * * * EXAM(s): XR HIP 3V PELV+ AP/LAT RT EXAM DATE/TIME: 10/16/2023 3:41 PM HISTORY: 83 years old Clinical information: Status post hip replacement, right Pain TECHNIQUE: Images: XR HIP 3V PELV+ AP/LAT RT Comparison: Right hip radiograph 07/12/2023 RESULT: Findings: Bone density appears well-preserved. No fractures or dislocations are seen. Right hip total arthroplasty with well-seated components. No evidence of hardware complication. Left hip total arthroplasty with well-seated components on AP view. Lower lumbar spondylosis. Degenerative changes bilateral sacroiliac joints and pubic symphysis. Bony demineralization. IMPRESSION: Right hip total arthroplasty without evidence of hardware complication.. [employer] Assistant Principal: [facility] Transcribe Date/Time: Oct 17 2023 1:54P Dictated by : CONNIE OSUNA MD This examination was interpreted and the report reviewed and electronically signed by: CONNIE OSUNA MD on Oct 17 2023 1:56PM EST [id number] Normal [facility] XR Pelvis and Hip - right AP and Lateral frogon 10-16-2023 Radiology Study observation (narrative) [facility] XR Pelvis and Hip - right AP and Lateral frogon 07-15-2023 IMPRESSION: Intact right total hip arthroplasty without complication. [employer] Assistant Principal: [employer] Transcribe Date/Time: Jul 15 2023 12:22P Dictated by : JUDSON ADAMES MD This examination was interpreted and the report reviewed and electronically signed by: JUDSON ADAMES MD on Jul 15 2023 12:24PM EST [facility] * * *Final Report* * * DATE OF EXAM: Jul 12 2023 10:20AM [facility] 5352 - XR HIP 3V PELV+ AP/LAT RT / PROCEDURE REASON: Z96.641-Status post right hip replacement * * * * Physician Interpretation * * * * EXAMINATION / TECHNIQUE: XR HIP 3V PELV+ AP/LAT RT PATIENT/TECHNOLOGIST PROVIDED HISTORY: F/U RIGHT HIP REPLACEMENT CLINICAL INFORMATION ( PROVIDED BY ORDERING CLINICIAN) : Status post right hip replacement COMPARISON: 06/27/2023 RESULT: Right total hip arthroplasty with superior acetabular screw, femoral head well-seated within the acetabular cup. No evidence of periprosthetic fracture or loosening. Limited AP view of the left total hip arthroplasty is intact. Degenerative changes of the sacroiliac joints and pubic symphysis. Mesh hernia tacks in the left pelvis. [facility] Provider, [facility] - 07/15/2023 * * *Final Report* * * DATE OF EXAM: Jul 12 2023 10:20AM [facility] 5352 - XR HIP 3V PELV+ AP/LAT RT / PROCEDURE REASON: Z96.641-Status post right hip replacement * * * * Physician Interpretation * * * * EXAMINATION / TECHNIQUE: XR HIP 3V PELV+ AP/LAT RT PATIENT/TECHNOLOGIST PROVIDED HISTORY: F/U RIGHT HIP REPLACEMENT CLINICAL INFORMATION ( PROVIDED BY ORDERING CLINICIAN) : Status post right hip replacement COMPARISON: 06/27/2023 RESULT: Right total hip arthroplasty with superior acetabular screw, femoral head well-seated within the acetabular cup. No evidence of periprosthetic fracture or loosening. Limited AP view of the left total hip arthroplasty is intact. Degenerative changes of the sacroiliac joints and pubic symphysis. Mesh hernia tacks in the left pelvis. IMPRESSION IMPRESSION: Intact right total hip arthroplasty without complication. [employer] Principal: [employer] Transcribe Date/Time: Jul 15 2023 12:22P Dictated by : JUDSON ADAMES MD This examination was interpreted and the report reviewed and electronically signed by: JUDSON ADAMES MD on Jul 15 2023 12:24PM EST [facility] XR Pelvis and Hip - right AP and Lateral frogOrdered By: Ccf Provider on 07-15-2023 [facility] XR Pelvis and Hip - right AP and Lateral frogon 07-12-2023 Radiology Study observation (narrative) [facility] COVID NAAT, UPPER RESPIRATOR Y, ROUTINEon 06-21-2023 SARS-CoV-2 (COVID-19) RNA ONOFRE+probe Ql (Resp) Not detected See comment [facility] STREP A MOLECULAR (POC)on Procedural Control Valid [facility] Strep A (POCT) Negative Negative [facility] C-REACTIVE PROTEIN (CRP)on 0 05-17-2023 CRP [Mass/Vol] <0.9 mg/dL [facility] ESR Westergren method (Bld) [Velocity]on 05-16-2023 ESR (Bld) [Velocity] 25 mm/h High 0 - 20 mm/hr Cl [facility] No Panel InformationOrdered By: Ccf Provider on 05-03-2023 Radiology Result ACTIONABLE Abnormal [facility] Comment on above: This report contains an incidental or actionable finding. This finding may be a new finding separate from the reason your provider ordered the imaging test or it may be an already known finding that needs additional or continued follow-up. Because of this incidental or actionable finding, you may need another test (imaging or a different type of test). Please contact your provider for the next steps. XR Pelvis and Hip - right AP and Lateral frogOrdered By: Ccf Provider on 05-03-2023 Interpretation and review of laboratory results Abnormal [facility] XR Pelvis and Hip - right AP and Lateral frogon 05-03-2023 IMPRESSION: No acute osseous findings. Interval development of moderate to severe flattening of the right femoral head; suspect sequela of osteonecrosis. ACTIONABLE RESULT: FOLLOW-UP Acuity: Actionable Findings: Musculoskeletal/Rheumat ologic System Routing Code: MSK_1 Recommendation: Follow-up Time Frame: At the discretion of the clinical team. COMMUNICATION: Results will be communicated with the ordering provider via [employer] staff message or phone message by [employer] within 2 business days of report finalization. Algorithms for management of incidental imaging findings can be found on the [facility] Intranet Sharepoint site at: [email or web address] Managing%20Incidental%2 0Findi ngs%20at%20Imaging/Form s/AllItems.aspx [employer] Principal: HYUN Transcribe Date/Time: May 03 2023 4:18P Dictated by : WEI EDWARDS MD This examination was interpreted and the report reviewed and electronically signed by: WEI EDWARDS MD on May 03 2023 4:25PM [facility] DIVISION OF RADIOLOGY * * *Final Report* * * DATE OF EXAM: May 03 2023 10:47AM WOX 5352 - XR HIP 3V PELV+ AP/LAT RT / PROCEDURE REASON: multiple diagnoses * * * * Physician Interpretation * * * * EXAMINATION: XR HIP 3V PELV+ AP/LAT RT CLINICAL HISTORY: Trochanteric bursitis of right hip; pain Trochanteric bursitis of right hip Pain of right hip Fall, initial encounter Technique: XR HIP 3V PELV+ AP/LAT RT -- RIGHT with 3 views on 3 images Comparison: 02/07/2023 RESULT: Interval development of moderate to severe flattening of the right femoral head with moderate loss of superomedial joint space. SI joints and pubic symphysis are intact. Degenerative changes in the lower lumbar spine. Status post left total hip arthroplasty. DIVISION OF RADIOLOGY Provider, [facility] Donyn Aguilar - 05/03/2023 * * *Final Report* * * DATE OF EXAM: May 03 2023 10:47AM WOX 5352 - XR HIP 3V PELV+ AP/LAT RT / PROCEDURE REASON: multiple diagnoses * * * * Physician Interpretation * * * * EXAMINATION: XR HIP 3V PELV+ AP/LAT RT CLINICAL HISTORY: Trochanteric bursitis of right hip; pain Trochanteric bursitis of right hip Pain of right hip Fall, initial encounter Technique: XR HIP 3V PELV+ AP/LAT RT -- RIGHT with 3 views on 3 images Comparison: 02/07/2023 RESULT: Interval development of moderate to severe flattening of the right femoral head with moderate loss of superomedial joint space. SI joints and pubic symphysis are intact. Degenerative changes in the lower lumbar spine. Status post left total hip arthroplasty. IMPRESSION IMPRESSION: No acute osseous findings. Interval development of moderate to severe flattening of the right femoral head; suspect sequela of osteonecrosis. ACTIONABLE RESULT: FOLLOW-UP Acuity: Actionable Findings: Musculoskeletal/Rheumat ologic System Routing Code: MSK_1 Recommendation: Follow-up Time Frame: At the discretion of the clinical team. COMMUNICATION: Results will be communicated with the ordering provider via [employer] staff message or phone message by [facility] [employer] [facility] within 2 business days of report finalization. Algorithms for management of incidental imaging findings can be found on the [facility] Intranet Sharepoint site at: [email or web address] Managing%20Incidental%2 0Findi ngs%20at%20Imaging/Form s/AllItems.aspx [employer] Principal: HYUN Transcribe Date/Time: May 03 2023 4:18P Dictated by : WEI EDWARDS MD This examination was interpreted and the report reviewed and electronically signed by: WEI EDWARDS MD on May 03 2023 4:25PM EST [facility] Radiology Study observation (narrative) [facility] IMAGING GUIDED ASP/INJ HIP J T/BURSA RIGHTon 03-20-2023 [facility] XR Hip - right AP and Latera jim 02-09-2023 * * *Final Report* * * DATE OF EXAM: Feb 07 2023 1:54PM MDO 5280 - XR HIP 2V AP/LAT RT / PROCEDURE REASON: M25.551-Pain in right hip * * * * Physician Interpretation * * * * PROCEDURE: Right hip INDICATION: Pain in right hip .RIGHT HIP PAIN TECHNIQUE: XR AP pelvis, crosstable lateral right hip COMPARISON: 09/14/2022 FINDINGS: Significant superolateral right hip joint space narrowing, greater than previous. Mild acetabular and minimal femoral collar spur formation. Mild chondrocalcinosis. Stable left total hip arthroplasty. No fracture. [facility] Provider, [facility] - 02/09/2023 * * *Final Report* * * DATE OF EXAM: Feb 07 2023 1:54PM MDO 5280 - XR HIP 2V AP/LAT RT / PROCEDURE REASON: M25.551-Pain in right hip * * * * Physician Interpretation * * * * PROCEDURE: Right hip INDICATION: Pain in right hip .RIGHT HIP PAIN TECHNIQUE: XR AP pelvis, crosstable lateral right hip COMPARISON: 09/14/2022 FINDINGS: Significant superolateral right hip joint space narrowing, greater than previous. Mild acetabular and minimal femoral collar spur formation. Mild chondrocalcinosis. Stable left total hip arthroplasty. No fracture. IMPRESSION IMPRESSION: Progressive right hip osteoarthrosis [employer] Assistant Principal: HYUN Transcribe Date/Time: Feb 09 2023 6:37P Dictated by : SALVATORE AYERS MD This examination was interpreted and the report reviewed and electronically signed by: SALVATORE AYERS MD on Feb 09 2023 6:38PM EST [facility] XR Hip - right AP and Latera lOrdered By: Ccf Provider on 02-09-2023 [facility] XR Hip - right AP and Latera jim 02-07-2023 Radiology Study observation (narrative) [facility] XR Pelvis and Hip - right AP and Lateral frogon 09-18-2022 IMPRESSION: 1. No radiographic evidence of acute osseous injury. 2. Degenerative changes. 3. Right hip chondrocalcinosis. 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 TECHNIQUE: AP radiograph of the pelvis and AP/frog leg lateral radiographs of the right hip COMPARISON: Radiograph dated February 13, 2022 FINDINGS: No acute fracture or dislocation identified. Status post total left hip replacement with no radiographic evidence of hardware complications. Mild right hip degenerative changes with acetabular eburnation. Right hip chondrocalcinosis, stable. Scoliosis of the visualized lower lumbar spine with multilevel degenerative changes. Status post pelvic herniorrhaphy. DIVISION OF RADIOLOGY Provider, [facility] - 09/18/2022 * * *Final Report* * * DATE OF EXAM: Sep 14 2022 11:55AM WOX 5352 - XR HIP 3V PELV+ AP/LAT RT / PROCEDURE REASON: Bursitis of other bursa of right hip * * * * Physician Interpretation * * * * TITLE: XR HIP 3V PELV+ AP/LAT RT CLINICAL INDICATION: Status post fall to right hip 3 weeks ago. TECHNIQUE: AP radiograph of the pelvis and AP/frog leg lateral radiographs of the right hip COMPARISON: Radiograph dated February 13, 2022 FINDINGS: No acute fracture or dislocation identified. Status post total left hip replacement with no radiographic evidence of hardware complications. Mild right hip degenerative changes with acetabular eburnation. Right hip chondrocalcinosis, stable. Scoliosis of the visualized lower lumbar spine with multilevel degenerative changes. Status post pelvic herniorrhaphy. IMPRESSION IMPRESSION: 1. No radiographic evidence of acute osseous injury. 2. Degenerative changes. 3. Right hip chondrocalcinosis. [employer] Assistant Principal: HYUN Transcribe Date/Time: Sep 18 2022 8:49A Dictated by : JOSE BLANCHARD MD This examination was interpreted and the report reviewed and electronically signed by: JOSE BLANCHARD MD on Sep 18 2022 8:50AM EST [facility] XR Pelvis and Hip - right AP and Lateral frogOrdered By: Ccf Provider on 09-18-2022 [facility] XR Pelvis and Hip - right AP and Lateral frogon 09-14-2022 Radiology Study observation (narrative) [facility] XR Foot - bilateral AP and L ateral and obliqueon 09-10-2022 IMPRESSION: 1. Subtle linear lucency at the base of the proximal findings of the right second toe which could represent an undisplaced fracture. Correlation with point tenderness is recommended. 2. Bilateral first metatarsophalangeal degenerative disease. [employer] Assistant Principal: [employer] Transcribe Date/Time: Sep 10 2022 4:33P Dictated by : ALIZA NDIAYE MD This examination was interpreted and the report reviewed and electronically signed by: ALIZA NDIAYE MD on Sep 10 2022 4:37PM [facility] DIVISION OF RADIOLOGY * * *Final Report* * * DATE OF EXAM: Sep 07 2022 3:16PM WOX 5555 - XR FOOT 3V AP/LAT/OBL ROGERS / PROCEDURE REASON: Acquired hammer toe * * * * Physician Interpretation * * * * EXAMINATION: XR FOOT 3V AP/LAT/OBL ROGERS CLINICAL HISTORY: Worsening hammertoe deformities Technique: XR FOOT 3V AP/LAT/OBL ROGERS -- BILATERAL with 3 views on 5 images Comparison: None RESULT: Subtle linear lucency in the base of the proximal phalanx of the right second toe. No left foot fracture or dislocation. Bilateral first metatarsophalangeal joint space narrowing with subchondral sclerosis and marginal osteophytes. Bilateral second toe hammertoe deformities. DIVISION OF RADIOLOGY Provider, Kenia Donny [facility] - 09/10/2022 * * *Final Report* * * DATE OF EXAM: Sep 07 2022 3:16PM WOX 5555 - XR FOOT 3V AP/LAT/OBL ROGERS / PROCEDURE REASON: Acquired hammer toe * * * * Physician Interpretation * * * * EXAMINATION: XR FOOT 3V AP/LAT/OBL ROGERS CLINICAL HISTORY: Worsening hammertoe deformities Technique: XR FOOT 3V AP/LAT/OBL ROGERS -- BILATERAL with 3 views on 5 images Comparison: None RESULT: Subtle linear lucency in the base of the proximal phalanx of the right second toe. No left foot fracture or dislocation. Bilateral first metatarsophalangeal joint space narrowing with subchondral sclerosis and marginal osteophytes. Bilateral second toe hammertoe deformities. IMPRESSION IMPRESSION: 1. Subtle linear lucency at the base of the proximal findings of the right second toe which could represent an undisplaced fracture. Correlation with point tenderness is recommended. 2. Bilateral first metatarsophalangeal degenerative disease. [employer] Assistant Principal: P[employer] Transcribe Date/Time: Sep 10 2022 4:33P Dictated by : ALIZA NDIAYE MD This examination was interpreted and the report reviewed and electronically signed by: ALIZA NDIAYE MD on Sep 10 2022 4:37PM EST [facility] XR Foot - bilateral AP and L ateral and obliqueOrdered By: Ccf Provider on 09-10-2022 [facility] XR Foot - bilateral AP and L ateral and obliqueon 09-07-2022 Radiology Study observation (narrative) [facility] COLONOSCOPY DIAGNOSTICon [facility] ANGIE SCREENINGon 03-06-2022 [facility] GLUCOSE, BLOOD (POC)on 03-02 Glucose [Mass/Vol] 117 mg/dL Abnormal 74 - 99 mg/dL [facility] Vital Signs Date Time Vital Sign Value Performing Clinician Facility 04-20-2025 07:39-0400 Body height 154.[address] Bg Chavarria MD Work Phone: [facility] 04-20-2025 07:39-0400 Body mass index (BMI) [Ratio] 20.9 kg/m2 Dr. Bg Chavarria MD Work Phone: [facility] 04-20-2025 07:39-0400 Body weight 50.[address] Bg Chavarria MD Work Phone: [facility] 04-20-2025 07:39-0400 Diastolic blood pressure 69 mm[Hg] Dr. Bg Chavarria MD Work Phone: [facility] 04-20-2025 07:39-0400 Heart rate 67 /min Dr. Bg Cahvarria MD Work Phone: [facility] 04-20-2025 07:39-0400 Respiratory rate 18 /min Dr. Bg Chavarria MD Work Phone: [facility] 04-20-2025 07:39-0400 SaO2% (BldA) [Mass fraction] 94 % Dr. Bg Chavarria MD Work Phone: [facility] 04-20-2025 07:39-0400 Systolic blood pressure 129 mm[Hg] Dr. Bg Chavarria MD Work Phone: [facility] 03-19-2025 09:57-0400 Diastolic blood pressure 62 mm[Hg] Bg Chavarria MD Work Phone: [facility] 03-19-2025 09:57-0400 Heart rate 80 /min Bg Chavarria MD Work Phone: [facility] 03-19-2025 09:57-0400 Systolic blood pressure 128 mm[Hg] Bg Chavarria MD Work Phone: [facility] 03-19-2025 09:55-0400 Body mass index (BMI) [Ratio] 21.53 kg/m2 Bg Chavarria MD Work Phone: [facility] 03-19-2025 09:55-0400 Body weight 50 kg Bg Chavarria MD Work Phone: [facility] 03-19-2025 09:55-0400 Respiratory rate 16 /min Bg Chavarria MD Work Phone: [facility] 02-25-2025 12:42-0400 Body mass index (BMI) [Ratio] 21.61 kg/m2 Madeleine Jung 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 Work Phone: [facility] 02-25-2025 12:42-0400 Body temperature 98.6 [degF] Madeleine Jung 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 Work Phone: [facility] 02-25-2025 12:42-0400 Body weight 50.2 kg Madeleine Jung 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 Work Phone: [facility] 02-25-2025 12:42-0400 Diastolic blood pressure 77 mm[Hg] Madeleine Praisler-Wood 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 Work Phone: [facility] 02-25-2025 12:42-0400 Heart rate 80 /min Madeleine Praisler-Wood 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 Work Phone: [facility] 02-25-2025 12:42-0400 Respiratory rate 20 /min Madeleine Praisler-Wood 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 Work Phone: [facility] 02-25-2025 12:42-0400 SaO2% (BldA) [Mass fraction] 96 % Madeleine Praisler-Wood 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 Work Phone: [facility] 02-25-2025 12:42-0400 Systolic blood pressure 127 mm[Hg] Madeleine Praisler-Wood 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 Work Phone: [facility] 02-15-2025 15:45-0400 Body mass index (BMI) [Ratio] 22.38 kg/m2 Oxana Darling 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 Work Phone: [facility] 02-15-2025 15:45-0400 Body weight 51.98 kg Oxana Darling 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 Work Phone: [facility] 02-15-2025 15:45-0400 Diastolic blood pressure 63 mm[Hg] Oxana Darling 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 Work Phone: [facility] 02-15-2025 15:45-0400 Heart rate 69 /min Oxana Darling 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 Work Phone: [facility] 02-15-2025 15:45-0400 SaO2% (BldA) [Mass fraction] 95 % Oxana Darling 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 Work Phone: [facility] 02-15-2025 15:45-0400 Systolic blood pressure 126 mm[Hg] Oxana Darling 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 Work Phone: [facility] 11-20-2024 09:53-0500 Body mass index (BMI) [Ratio] 22.13 kg/m2 Bg Talampas MD Work Phone: [facility] 11-20-2024 09:53-0500 Body weight 51.4 kg Bg Chavarria MD Work Phone: [facility] 11-20-2024 09:53-0500 Diastolic blood pressure 80 mm[Hg] Bg Chavarria MD Work Phone: [facility] 11-20-2024 09:53-0500 Heart rate 72 /min Bg Chavarria MD Work Phone: [facility] 11-20-2024 09:53-0500 Respiratory rate 12 /min Bg Chavarria MD Work Phone: [facility] 11-20-2024 09:53-0500 SaO2% (BldA) [Mass fraction] 97 % Bg Chavarria MD Work Phone: [facility] 11-20-2024 09:53-0500 Systolic blood pressure 118 mm[Hg] Bg Chavarria MD Work Phone: [facility] 11-02-2024 10:57-0500 Body mass index (BMI) [Ratio] 21.96 kg/m2 Luis Manuel Hernandez REFRIGERATION BRAZER/SOLDERER.DRAW HAND Work Phone: [facility] 11-02-2024 10:57-0500 Body weight 51 kg Luis Manuel Hernandez REFRIGERATION BRAZER/SOLDERER.DRAW [employer] Work Phone: [facility] 11-02-2024 10:57-0500 Diastolic blood pressure 72 mm[Hg] Luis Manuel Hernandez REFRIGERATION BRAZER/SOLDERER.DRAW HAND Work Phone: [facility] 11-02-2024 10:57-0500 Heart rate 67 /min Luis Manuel Hernandez REFRIGERATION BRAZER/SOLDERER.DRAW HAND Work Phone: [facility] 11-02-2024 10:57-0500 Respiratory rate 16 /min Luis Manuel Hernandez REFRIGERATION BRAZER/SOLDERER.DRAW HAND Work Phone: [facility] 11-02-2024 10:57-0500 SaO2% (BldA) [Mass fraction] 97 % Luis Manuel Hernandez REFRIGERATION BRAZER/SOLDERER.DRAW HAND Work Phone: [facility] 11-02-2024 10:57-0500 Systolic blood pressure 129 mm[Hg] Luis Manuel Hernandez APRN.DRAW HAND Work Phone: [facility] 09-24-2024 13:10-0500 Body height 152.4 cm Russell Rodriguez MD Work Phone: [facility] 09-24-2024 13:10-0500 Body mass index (BMI) [Ratio] 21.29 kg/m2 Russell Rodriguez MD Work Phone: [facility] 09-24-2024 13:10-0500 Body weight 49.44 kg Russell Rodriguez MD Work Phone: [facility] 09-24-2024 13:10-0500 Diastolic blood pressure 64 mm[Hg] Russell Rodriguez MD Work Phone: [facility] 09-24-2024 13:10-0500 Heart rate 69 /min Russell Rodriguez MD Work Phone: [facility] 09-24-2024 13:10-0500 Respiratory rate 18 /min Russell Rodriguez MD Work Phone: [facility] 09-24-2024 13:10-0500 SaO2% (BldA) [Mass fraction] 97 % Russell Rodriguez MD Work Phone: [facility] 09-24-2024 13:10-0500 Systolic blood pressure 118 mm[Hg] Russell Rodriguez MD Work Phone: [facility] 07-28-2024 10:50-0400 Body mass index (BMI) [Ratio] 21.36 kg/m2 Linda Silva 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 Work Phone: [facility] 07-28-2024 10:50-0400 Body weight 49.6 kg Linda Rodriguezr 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 Work Phone: [facility] 07-28-2024 10:50-0400 Diastolic blood pressure 76 mm[Hg] Linda Rodriguezr 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 Work Phone: [facility] 07-28-2024 10:50-0400 Heart rate 75 /min Linda Tigist 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 Work Phone: [facility] 07-28-2024 10:50-0400 SaO2% (BldA) [Mass fraction] 95 % Linda Tigist 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 Work Phone: [facility] 07-28-2024 10:50-0400 Systolic blood pressure 128 mm[Hg] Linda Tigist 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 Work Phone: [facility] 07-06-2024 10:24-0400 Diastolic blood pressure 74 mm[Hg] Luis Manuel Hernandez REFRIGERATION BRAZER/SOLDERER.DRAW HAND Work Phone: [facility] 07-06-2024 10:24-0400 Systolic blood pressure 133 mm[Hg] Luis Manuel Hernandez REFRIGERATION BRAZER/SOLDERER.DRAW HAND Work Phone: [facility] 07-06-2024 10:23-0400 Body mass index (BMI) [Ratio] 21.36 kg/m2 Luis Manuel Hernandez REFRIGERATION BRAZER/SOLDERER.DRAW HAND Work Phone: [facility] 07-06-2024 10:23-0400 Body weight 49.6 kg Luis Manuel Hernandez REFRIGERATION BRAZER/SOLDERER.DRAW HAND Work Phone: [facility] 07-06-2024 10:23-0400 Heart rate 71 /min Luis Manuel Hernandez REFRIGERATION BRAZER/SOLDERER.DRAW [employer] Work Phone: [facility] 07-06-2024 10:23-0400 Respiratory rate 16 /min Luis Manuel Hernandez REFRIGERATION BRAZER/SOLDERER.DRAW HAND Work Phone: [facility] 07-06-2024 10:23-0400 SaO2% (BldA) [Mass fraction] 97 % Luis Manuel Hernandez REFRIGERATION BRAZER/SOLDERER.DRAW HAND Work Phone: [facility] 05-18-2024 09:59-0400 Body mass index (BMI) [Ratio] 21.53 kg/m2 Bg Chavarria MD Work Phone: [facility] 05-18-2024 09:59-0400 Body temperature 97.39 [degF] Bg Chavarria MD Work Phone: [facility] 05-18-2024 09:59-0400 Body weight 50 kg Bg Chavarria MD Work Phone: [facility] 05-18-2024 09:59-0400 Diastolic blood pressure 68 mm[Hg] Bg Chavarria MD Work Phone: [facility] 05-18-2024 09:59-0400 Heart rate 79 /min Bg Chavarria MD Work Phone: [facility] 05-18-2024 09:59-0400 Respiratory rate 16 /min Bg Chavarria MD Work Phone: [facility] 05-18-2024 09:59-0400 SaO2% (BldA) [Mass fraction] 97 % Bg Chavarria MD Work Phone: [facility] 05-18-2024 09:59-0400 Systolic blood pressure 134 mm[Hg] Bg Chavarria MD Work Phone: [facility] 03-31-2024 08:47-0400 Body mass index (BMI) [Ratio] 21.27 kg/m2 Bg Chavarria MD Work Phone: [facility] 03-31-2024 08:47-0400 Body temperature 96.8 [degF] Bg Chavarria MD Work Phone: [facility] 03-31-2024 08:47-0400 Body weight 49.4 kg Bg Chavarria MD Work Phone: [facility] 03-31-2024 08:47-0400 Diastolic blood pressure 80 mm[Hg] Bg Chavarria MD Work Phone: [facility] 03-31-2024 08:47-0400 Heart rate 87 /min Bg Chavarria MD Work Phone: [facility] 03-31-2024 08:47-0400 Respiratory rate 18 /min Bg Chavarria MD Work Phone: [facility] 03-31-2024 08:47-0400 SaO2% (BldA) [Mass fraction] 97 % Bg Chavarria MD Work Phone: [facility] 03-31-2024 08:47-0400 Systolic blood pressure 144 mm[Hg] Bg Chavarria MD Work Phone: [facility] 03-24-2024 14:47-0400 Body mass index (BMI) [Ratio] 21.48 kg/m2 Linda Tigist 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 Work Phone: [facility] 03-24-2024 14:47-0400 Body weight 49.9 kg Linda Tigist 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 Work Phone: [facility] 03-24-2024 14:47-0400 Diastolic blood pressure 70 mm[Hg] Linda Tigist 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 Work Phone: [facility] 03-24-2024 14:47-0400 Heart rate 82 /min Linda Tigist 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 Work Phone: [facility] 03-24-2024 14:47-0400 SaO2% (BldA) [Mass fraction] 97 % Linda Tigist 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 Work Phone: [facility] 03-24-2024 14:47-0400 Systolic blood pressure 110 mm[Hg] Linda Tigist 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 Work Phone: [facility] 11-18-2023 09:46-0500 Body height 152.4 cm Bg Chavarria MD Work Phone: [facility] 11-18-2023 09:46-0500 Body weight 50.26 kg Bg Chavarria MD Work Phone: [facility] 11-18-2023 09:46-0500 Diastolic blood pressure 74 mm[Hg] Bg Chavarria MD Work Phone: [facility] 11-18-2023 09:46-0500 Heart rate 78 /min Bg Chavarria MD Work Phone: [facility] 11-18-2023 09:46-0500 Respiratory rate 16 /min Bg Chavarria MD Work Phone: [facility] 11-18-2023 09:46-0500 Systolic blood pressure 112 mm[Hg] Bg Chavarria MD Work Phone: [facility] 07-15-2023 10:51-0400 Body weight 52.62 kg Luis Manuel Hernandez REFRIGERATION BRAZER/SOLDERER.DRAW HAND Work Phone: [facility] 07-15-2023 10:51-0400 Diastolic blood pressure 78 mm[Hg] Luis Manuel Hernandez REFRIGERATION BRAZER/SOLDERER.DRAW HAND Work Phone: [facility] 07-15-2023 10:51-0400 Heart rate 91 /min Luis Manuel Hernandez REFRIGERATION BRAZER/SOLDERER.DRAW HAND Work Phone: [facility] 07-15-2023 10:51-0400 Respiratory rate 16 /min Luis Manuel Hernandez REFRIGERATION BRAZER/SOLDERER.DRAW HAND Work Phone: [facility] 07-15-2023 10:51-0400 Systolic blood pressure 123 mm[Hg] Luis Manuel Hernandez REFRIGERATION BRAZER/SOLDERER.DRAW HAND Work Phone: [facility] 06-20-2023 11:58-0400 Body temperature 97.39 [degF] Yarelis Cayden 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 Work Phone: [facility] 06-20-2023 11:58-0400 Body weight 52.16 kg Yarelis Cayden 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 Work Phone: [facility] 06-20-2023 11:58-0400 Diastolic blood pressure 70 mm[Hg] Yarelis Cayden 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 Work Phone: [facility] 06-20-2023 11:58-0400 Heart rate 84 /min Yarelis Cayden 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 Work Phone: [facility] 06-20-2023 11:58-0400 Respiratory rate 18 /min Yarelis Cayden 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 Work Phone: [facility] 06-20-2023 11:58-0400 SaO2% (BldA) [Mass fraction] 97 % Yarelis Cayden 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 Work Phone: [facility] 06-20-2023 11:58-0400 Systolic blood pressure 148 mm[Hg] Yarelis Taylork 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 Work Phone: [facility] 05-03-2023 09:49-0400 Diastolic blood pressure 68 mm[Hg] Linda Tigist 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 Work Phone: [facility] 05-03-2023 09:49-0400 Heart rate 77 /min Linda Tigist 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 Work Phone: [facility] 05-03-2023 09:49-0400 Respiratory rate 16 /min Linda Tigist 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 Work Phone: [facility] 05-03-2023 09:49-0400 SaO2% (BldA) [Mass fraction] 98 % Linda Tigist 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 Work Phone: [facility] 05-03-2023 09:49-0400 Systolic blood pressure 122 mm[Hg] Linda Tigist 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 Work Phone: [facility] 03-15-2023 11:14-0400 Body temperature 97.39 [degF] Bg Chavarria MD Work Phone: [facility] 03-15-2023 11:14-0400 Body weight 51.26 kg Bg Chavarria MD Work Phone: [facility] 03-15-2023 11:14-0400 Diastolic blood pressure 62 mm[Hg] Bg Chavarria MD Work Phone: [facility] 03-15-2023 11:14-0400 Heart rate 75 /min gB Chavarria MD Work Phone: [facility] 03-15-2023 11:14-0400 Respiratory rate 18 /min Bg Chavarria MD Work Phone: [facility] 03-15-2023 11:14-0400 SaO2% (BldA) [Mass fraction] 98 % Bg Chavarria MD Work Phone: [facility] 03-15-2023 11:14-0400 Systolic blood pressure 112 mm[Hg] Bg Chavarria MD Work Phone: [facility] 02-04-2023 14:59-0400 Body weight 53.52 kg Luis Manuel Hernandez REFRIGERATION BRAZER/SOLDERER.DRAW HAND Work Phone: [facility] 02-04-2023 14:59-0400 Diastolic blood pressure 64 mm[Hg] Luis Manuel Hernandez REFRIGERATION BRAZER/SOLDERER.DRAW HAND Work Phone: [facility] 02-04-2023 14:59-0400 Heart rate 84 /min Luis Manuel Hernandez REFRIGERATION BRAZER/SOLDERER.DRAW HAND Work Phone: [facility] 02-04-2023 14:59-0400 Respiratory rate 16 /min Luis Manuel Hernandez REFRIGERATION BRAZER/SOLDERER.DRAW HAND Work Phone: [facility] 02-04-2023 14:59-0400 Systolic blood pressure 114 mm[Hg] Luis Manuel Hernandez REFRIGERATION BRAZER/SOLDERER.DRAW HAND Work Phone: [facility] 09-14-2022 11:18-0500 Body weight 52.62 kg Linda Tigist 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 Work Phone: [facility] 09-14-2022 11:18-0500 Diastolic blood pressure 60 mm[Hg] Linda Tigist 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 Work Phone: [facility] 09-14-2022 11:18-0500 Heart rate 87 /min Linda Tigist 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 Work Phone: [facility] 09-14-2022 11:18-0500 Respiratory rate 16 /min Linda Tigist 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 Work Phone: [facility] 09-14-2022 11:18-0500 SaO2% (BldA) [Mass fraction] 96 % Linda Tigist 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 Work Phone: [facility] 09-14-2022 11:18-0500 Systolic blood pressure 100 mm[Hg] Linda Tigist 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 Work Phone: [facility] 06-28-2022 11:10-0400 Body weight 51.26 kg Luis Manuel Hernandez REFRIGERATION BRAZER/SOLDERER.DRAW HAND Work Phone: [facility] 06-28-2022 11:10-0400 Diastolic blood pressure 62 mm[Hg] Luis Manuel Hernandez REFRIGERATION BRAZER/SOLDERER.DRAW HAND Work Phone: [facility] 06-28-2022 11:10-0400 Heart rate 74 /min Luis Manuel Hernandez REFRIGERATION BRAZER/SOLDERER.DRAW HAND Work Phone: [facility] 06-28-2022 11:10-0400 Respiratory rate 16 /min Luis Manuel Hernandez REFRIGERATION BRAZER/SOLDERER.DRAW HAND Work Phone: [facility] 06-28-2022 11:10-0400 SaO2% (BldA) [Mass fraction] 97 % Luis Manuel Hernandez REFRIGERATION BRAZER/SOLDERER.DRAW HAND Work Phone: [facility] 06-28-2022 11:10-0400 Systolic blood pressure 120 mm[Hg] Luis Manuel Hernandez REFRIGERATION BRAZER/SOLDERER.DRAW HAND Work Phone: [facility] 05-04-2022 08:22-0400 Diastolic blood pressure 60 mm[Hg] Nuha Saab MD Work Phone: [facility] 05-04-2022 08:22-0400 Heart rate 74 /min Nuha Saab MD Work Phone: [facility] 05-04-2022 08:22-0400 Respiratory rate 16 /min Nuha Saab MD Work Phone: [facility] 05-04-2022 08:22-0400 SaO2% (BldA) [Mass fraction] 97 % Nuha Saab MD Work Phone: [facility] 05-04-2022 08:22-0400 Systolic blood pressure 109 mm[Hg] Nuha Saab MD Work Phone: [facility] 03-05-2022 13:18-0400 Body height 149.9 cm Nuha Saab MD Work Phone: [facility] 03-05-2022 13:18-0400 Body temperature 98.29 [degF] Nuha Saab MD Work Phone: [facility] 03-05-2022 13:18-0400 Body weight 50.35 kg Nuha Saab MD Work Phone: [facility] 03-05-2022 13:18-0400 Diastolic blood pressure 70 mm[Hg] Nuha Saab MD Work Phone: [facility] 03-05-2022 13:18-0400 Heart rate 74 /min Nuha Saab MD Work Phone: [facility] 03-05-2022 13:18-0400 SaO2% (BldA) [Mass fraction] 96 % Nuha Saab MD Work Phone: [facility] 03-05-2022 13:18-0400 Systolic blood pressure 128 mm[Hg] Nuha Saab MD Work Phone: [facility] 03-02-2022 13:30-0400 Diastolic blood pressure 66 mm[Hg] Anibal Lake MD Work Phone: [facility] 03-02-2022 13:30-0400 Respiratory rate 16 /min Anibal Lake MD Work Phone: [facility] 03-02-2022 13:30-0400 SaO2% (BldA) [Mass fraction] 96 % Anibal Lake MD Work Phone: [facility] 03-02-2022 13:30-0400 Systolic blood pressure 138 mm[Hg] Anibal Lake MD Work Phone: [facility] 03-02-2022 13:20-0400 Heart rate 64 /min Anibal Lake MD Work Phone: [facility] 03-02-2022 12:04-0400 Body temperature 98.1 [degF] Anibal Lake MD Work Phone: [facility] 03-02-2022 11:56-0400 Body height 149.9 cm Anibal Lake MD Work Phone: [facility] 03-02-2022 11:56-0400 Body weight 46.72 kg Anibal Lake MD Work Phone: [facility] 02-27-2022 17:51-0400 Body weight 46.72 kg Bg Chavarria MD Work Phone: [facility] 02-27-2022 17:51-0400 Diastolic blood pressure 68 mm[Hg] Bg Chavarria MD Work Phone: [facility] 02-27-2022 17:51-0400 Heart rate 72 /min Bg Chavarria MD Work Phone: [facility] 02-27-2022 17:51-0400 SaO2% (BldA) [Mass fraction] 96 % Bg Chavarria MD Work Phone: [facility] 02-27-2022 17:51-0400 Systolic blood pressure 114 mm[Hg] Bg Chavarria MD Work Phone: [facility] Encounters Encounter Date Encounter Type Care Provider Facility Start: 05-07-2025 End: 05-10-2025 Follow-up encounter Oxana Darling APRN.MORTGAGE LOAN ASSISTANT Work Phone: [facility] Comment on above: Results Start: 04-29-2025 End: 04-29-2025 Telephone encounter Bg Chavarria MD Work Phone: [facility] [place] Comment on above: Forms (Pre op form f rom Dr. Haile) Start: 04-20-2025 End: 04-20-2025 Patient encounter procedure Rekha WILKINSON [facility] Work Phone: Start: 04-20-2025 End: 04-20-[address] Bg Chavarria MD Work Phone: [facility] Start: 03-19-2025 End: 03-19-2025 Office outpatient visit 25 minutes Bg Chavarria MD Work Phone: [facility] [place] Comment on above: Type 2 diabetes jessenia itus with other specified complication, without long-term current use of insulin (HCC) (Primary Dx); Paroxysmal SVT (supraventricular tachycardia) (HCC); Status post hip replacement, right; Status post left hip replacement; Chronic bilateral low back pain without sciatica; Other idiopathic scoliosis, thoracolumbar region Start: 03-19-2025 End: 03-19-2025 ambulatory BG Peter CHAVARRIA Facility:[facility] Start: 03-18-2025 ambulatory BG Peter CHAVARRIA Facilit y:[facility] Start: 03-18-2025 End: 03-18-2025 Subsequent hospital visit by physician Bone D[facility] Work Phone: Radiology Comment on above: Asymptomatic postmen opausal status [Z78.0] Start: 03-15-2025 End: 03-15-2025 Refill Josue Fagan APRN.MORTGAGE LOAN ASSISTANT Work Phone: [facility] [place] Comment on above: Refill Request Start: 02-25-2025 End: 02-25-2025 Patient encounter procedure Madeleine Jung APRN.MORTGAGE LOAN ASSISTANT Work Phone: [facility] Comment on above: Skin erythema (Prima ry Dx); Insect bite of right thigh, initial encounter Start: 02-25-2025 End: 02-25-2025 ambulatory BG Peter CHAVARRIA Facility:[facility] Start: 02-15-2025 End: 02-15-2025 Patient encounter procedure Oxana Darling APRN.MORTGAGE LOAN ASSISTANT Work Phone: [facility] [place] Comment on above: Paroxysmal SVT (supr aventricular tachycardia) (HCC) (Primary Dx); Typical atrial flutter (HCC); S/P catheter ablation of slow pathway; S/P ablation of atrial flutter; At risk for stroke Start: 02-15-2025 End: 02-15-2025 ambulatory OXANA DARLING Facility:[facility] Start: 02-10-2025 End: 02-15-2025 Telephone encounter Bg Chavarria MD Work Phone: [facility] [place] Comment on above: Mic Dental-Form Start: 02-01-2025 End: 02-01-2025 Telephone encounter Josue Fagan APRN.MORTGAGE LOAN ASSISTANT Work Phone: [facility] [place] Comment on above: Results Start: 01-01-2025 End: 03-24-2025 Telephone encounter Josue Fagan APRN.MORTGAGE LOAN ASSISTANT Work Phone: [facility] [place] Comment on above: Results Start: 12-18-2024 End: 12-18-2024 ambulatory BG Peter MORROWAMPKATE Facility:[facility] Start: 12-18-2024 End: 12-18-2024 Nursing evaluation of patient and report Mi Nurse Work Phone: [facility] Comment on above: Encounter for immuni zation Start: 12-01-2024 ambulatory JOSUE FAGAN Facility:[facility] Start: 12-01-2024 End: 12-01-2024 Subsequent hospital visit by physician Card Lab Stress [facility] Comment on above: Paroxysmal SVT (supr aventricular tachycardia) ([facility]) [I47.10] Start: 11-20-2024 End: 11-20-2024 [facility] Start: 11-20-2024 End: 11-20-2024 Office outpatient visit 25 minutes Bg Chavarria MD Work Phone: [facility] Comment on above: Type 2 diabetes jessenia itus with other specified complication, without long-term current use of insulin (HCC) (Primary Dx); Fecal incontinence with incomplete defecation; Age-related osteoporosis without current pathological fracture; S/P catheter ablation of slow pathway; Vitamin D deficiency; Low vitamin B12 level; Other idiopathic scoliosis, thoracolumbar region; Asymptomatic postmenopausal status Start: 11-02-2024 End: 11-02-2024 [facility]ulatory [facility] Start: 11-02-2024 End: 11-02-2024 Office outpatient visit 25 minutes Luis Manuel Hernandez APRN.CNS Work Phone: [facility] [place] Comment on above: Postural dizziness w ith presyncope (Primary Dx); S/P catheter ablation of slow pathway; Typical atrial flutter (HCC) Start: 10-30-2024 End: 10-30-2024 Telephone encounter Josue Fagan APRN.CNP Work Phone: [facility] [place] Comment on above: Appointment; Orders Start: 10-26-2024 End: 10-27-2024 ambulatory BG Peter MORROWAMPAS Facility:[facility] Start: 10-20-2024 End: 10-20-2024 ambulatory Majo Isrrael Facility:[facility] Start: 10-15-2024 End: 10-15-2024 Telephone encounter Russell Rodriguez MD Work Phone: [facility] [place] Comment on above: Preparations For Pro cedures Start: 09-24-2024 End: 09-24-2024 Patient encounter procedure Russell Rodriguez MD Work Phone: [facility] Comment on above: Paroxysmal SVT (supr aventricular tachycardia) (HCC) (Primary Dx); Multiple sclerosis (HCC); Former smoker; Postural dizziness with presyncope Start: 09-24-2024 End: 09-24-2024 ambulatory BG D TALAMPAS Facility:[facility] Start: 09-11-2024 End: 09-16-2024 Refill Linda Silva 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 Work Phone: Orthopaedics Comment on above: Refill Request Start: 09-08-2024 ambulatory Bg D Talampas Facilit y:[facility] Start: 09-08-2024 End: 09-08-2024 ambulatory Bg D Talampas Facility:[facility] Start: 09-02-2024 End: 09-08-2024 Refill Luis Manuel Hernandez APRN.DRAW HAND Work Phone: [facility] Comment on above: Refill Request ([facility] managed refill) Start: 08-13-2024 End: 08-13-2024 ambulatory Bg D Talampas Facility:[facility] Start: 07-30-2024 End: 07-30-2024 Telephone encounter Luis Manuel Hernandez APRN.DRAW HAND Work Phone: [facility] Comment on above: Results Start: 07-28-2024 End: 07-28-2024 ambulatory LINDA SILVA Facility:[facility] Start: 07-28-2024 End: 07-28-2024 Patient encounter procedure Linda Silva 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 Work Phone: [facility] Comment on above: Paroxysmal SVT (supr aventricular tachycardia) (HCC) (Primary Dx); Postural dizziness with presyncope; Type 2 diabetes mellitus with other specified complication, without long-term current use of insulin (HCC); Primary osteoarthritis of both hips; Screening for depression; Encounter for screening examination for other mental health and behavioral disorders Start: 07-27-2024 End: 07-30-2024 Telephone encounter Danielle Bustamante MD Work Phone: [facility] Comment on above: Results Start: 07-23-2024 End: 07-23-2024 ambulatory BG CHAVARRIA Facility:[facility] Start: 07-13-2024 End: 07-13-2024 Office outpatient visit 10 minutes Sincere Hopkins MD Work Phone: Orthopaedics Comment on above: Status post hip repl acement, right (Primary Dx) Start: 07-13-2024 End: 07-13-2024 ambulatory [facility] Facility:[facility] Start: 07-13-2024 End: 07-13-2024 Subsequent hospital visit by physician [facility] Work Phone: Radiology Comment on above: Status post hip repl acement, right [Z96.641] Start: 07-06-2024 End: 07-06-2024 ambulatory BG CHAVARRIA Facility:[facility] Start: 07-06-2024 End: 07-06-2024 Office outpatient visit 25 minutes Luis Manuel Hernandez APRN.CNS Work Phone: [facility] Comment on above: Postural dizziness w ith presyncope (Primary Dx); SOB (shortness of breath); Throat tightness; Former smoker; Abnormal EKG; Type 2 diabetes mellitus with other specified complication, without long-term current use of insulin (HCC); Elevated LDL cholesterol level; Abnormal finding of blood chemistry, unspecified Start: 07-06-2024 End: 07-06-2024 ambulatory [facility] Start: 07-03-2024 End: 07-03-2024 Orders Only Sincere Hopkins MD Work Phone: Orthopaedics Comment on above: Status post hip repl acement, right (Primary Dx) Start: 06-13-2024 End: 07-03-2024 jay Chavarria MD Work Phone: [facility] [place] Comment on above: Episodes of dropping blood pressure and rapid heart rate Start: 06-02-2024 End: 06-02-2024 Emergency department patient visit Bg Chavarria Facility:[facility] Start: 05-18-2024 End: 05-18-2024 ambulatory SELF Facility:[facility] Start: 05-18-2024 End: 05-18-2024 Office outpatient visit 25 minutes Bg Chavarria MD Work Phone: [facility] Comment on above: Near syncope (Primar y Dx); Episodic lightheadedness Start: 05-09-2024 ambulatory Bg burris MD Work Phone: [facility] [place] Comment on above: Recent near fainting spell with chest discomfort Start: 05-07-2024 End: 05-07-2024 Patient encounter procedure Lorena Jacobsen MD Work Phone: Orthopaedics Comment on above: Status post total re placement of left hip (Primary Dx); Status post hip replacement, right; Fall, initial encounter Start: 05-07-2024 End: 05-07-2024 ambulatory LORENA JACOBSEN Facility:[facility] Start: 05-07-2024 End: 05-07-2024 Subsequent hospital visit by physician [facility] Work Phone: Radiology Comment on above: Pain in left hip [M2 5.552] Start: 05-01-2024 End: 05-01-2024 Patient encounter procedure Joe Jiang PA-C Work Phone: Orthopaedics Comment on above: Primary osteoarthrit is of left knee (Primary Dx); Prepatellar effusion of left knee Start: 04-28-2024 Orders Only Joe AGUIAR-C Work Phone: [facility] [place] Comment on above: Pain (Primary Dx) Start: 04-22-2024 ambulatory Bg burris MD Work Phone: [facility] [place] Comment on above: Left knee post fall Start: 04-09-2024 Orders Only Lorena Green Work Phone: [facility] [place] Comment on above: Pain (Primary Dx) Start: 03-31-2024 End: 03-31-2024 Subsequent hospital visit by physician Jasmyn [facility] Work Phone: Radiology Comment on above: Acute pain of left k nee [M25.562] Start: 03-31-2024 End: 03-31-2024 Office outpatient visit 10 minutes Bg Chavarria MD Work Phone: [facility] Comment on above: Acute pain of left k nee (Primary Dx); Contusion of left knee, initial encounter; Strain of left quadriceps, initial encounter; Type 2 diabetes mellitus with other specified complication, without long-term current use of insulin (HCC) Start: 03-30-2024 ambulatory Bg burris MD Work Phone: [facility] [place] Comment on above: Recent fall Start: 03-24-2024 End: 03-24-2024 Patient encounter procedure Linda Silva APRN.MORTGAGE LOAN ASSISTANT Work Phone: [facility] [place] Comment on above: Type 2 diabetes jessenia itus without complication, without long- term current use of insulin (HCC) (Primary Dx); Vitamin D deficiency; Primary osteoarthritis of both hips; Chronic midline low back pain without sciatica; Elevated LDL cholesterol level Start: 03-12-2024 Refill Linda ROMERO.MORTGAGE LOAN ASSISTANT Work Phone: Orthopaedics Comment on above: Refill Request Start: 01-30-2024 End: 01-30-2024 ambulatory Luis Manuel Hernandez APRN.DRAW HAND Work Phone: [facility] Comment on above: COVID-19 virus infec tion (Primary Dx) Start: 01-30-2024 End: 01-30-2024 Telemedicine consultation with patient Luis Manuel Hernandez APRN.DRAW HAND Work Phone: [facility] Start: 01-29-2024 Telephone encounter Linda coon APRN.MORTGAGE LOAN ASSISTANT Work Phone: [facility] [place] Comment on above: Covid Positive Start: 12-16-2023 Refill Luis Manuel BANKSN.DRAW HAND Work Phone: [facility] [place] Comment on above: Refill Request ([facility] Managed Refill) Start: 11-18-2023 End: 11-18-2023 Office outpatient visit 25 minutes Bg Chavarria MD Work Phone: [facility] [place] Comment on above: Type 2 diabetes jessenia itus without complication, without long- term current use of insulin (HCC) (Primary Dx); Vitamin D deficiency; Elevated LDL cholesterol level; Chronic midline low back pain without sciatica; Encounter for long-term current use of medication; Multiple sclerosis (HCC); SI (sacroiliac) joint inflammation (HCC); S/P hip replacement, bilateral Start: 11-17-2023 ambulatory Bg burris MD Work Phone: [facility] [place] Comment on above: Labs Start: 10-16-2023 ambulatory BG CHAVARRIA Facilit y:[facility] Start: 10-16-2023 End: 10-16-2023 Subsequent hospital visit by physician [facility] Work Phone: Radiology Comment on above: Status post hip repl acement, right [Z96.641] Start: 09-19-2023 End: 09-19-2023 ambulatory Fabian Haq ALUMINUM HYDROXIDE PROCESS OPERATOR Work Phone: [facility] Comment on above: Status post hip repl acement, right (Primary Dx); Weakness of both hips Start: 09-10-2023 End: 09-10-2023 ambulatory Yana Almaraz PT Work Phone: [facility] Comment on above: Status post hip repl acement, right (Primary Dx); Weakness of both hips; Abnormality of gait Start: 08-19-2023 End: 08-19-2023 ambulatory Melita Castañeda PT, DPT [facility] Comment on above: Status post hip repl acement, right (Primary Dx); Abnormality of gait; Trochanteric bursitis of right hip Start: 2023 End: 2023 ambulatory Melita Castañeda PT, DPT [facility] Comment on above: Status post hip repl acement, right (Primary Dx); Abnormality of gait Start: 08-12-2023 End: 08-12-2023 ambulatory Melita Castañeda PT, DPT [facility] Comment on above: Status post hip repl acement, right (Primary Dx); Abnormality of gait Start: 08-07-2023 End: 08-07-2023 Postop follow up visit related to original px Sincere Hopkins MD Work Phone: Orthopaedics Comment on above: Status post hip repl acement, right (Primary Dx); SI (sacroiliac) joint inflammation (HCC); Chronic midline low back pain without sciatica Start: 07-15-2023 End: 07-15-2023 Office outpatient visit 25 minutes Luis Manuel Hernandez APRN.DRAW HAND Work Phone: [facility] [place] Comment on above: Encounter for reji rodriguez (Primary Dx); Status post right hip replacement; Acute blood loss anemia; Osteonecrosis of right hip (HCC); Blood loss anemia; Type 2 diabetes mellitus with other specified complication, without long-term current use of insulin (HCC); Gastroesophageal reflux disease, unspecified whether esophagitis present Start: 07-12-2023 End: 07-12-2023 Subsequent hospital visit by physician Radio General Mary Miles Work Phone: Radiology Comment on above: Status post right hi p replacement [Z96.641] Start: 06-29-2023 Telephone encounter Geoffrey Fenton [facility] Comment on above: Home Care (Confirmat ion Call ) Start: 06-25-2023 ambulatory Sincere Hopkins MD Work Phone: Orthopaedics Comment on above: Upcoming MERLE Start: 06-20-2023 End: 06-20-2023 Patient encounter procedure Yarelisnorberto Taylork 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 Work Phone: [facility] Comment on above: Sore throat (Primary Dx) Start: 06-10-2023 Get Medical Advice Joe lucas PA-C Work Phone: Orthopaedics Comment on above: Tramadol refill Start: 06-06-2023 Orders Only Sincere Hopkins MD Work Phone: Orthopaedics Comment on above: Osteonecrosis of rig ht hip (HCC) (Primary Dx) Pre-Op Teaching Start: 06-05-2023 Telephone encounter Joe hernandez PA-C Work Phone: Orthopaedics Comment on above: Schedule Surgery; Lit avalos Update Start: 06-05-2023 End: 06-05-2023 Patient encounter procedure Joe Jiang PA-C Work Phone: Orthopaedics Comment on above: Osteonecrosis of rig ht hip (HCC) (Primary Dx); Pre-op testing; Controlled type 2 diabetes mellitus without complication, without long-term current use of insulin (HCC) Start: 06-05-2023 End: 06-05-2023 Patient encounter status Joe Jiang PA-C Work Phone: [facility] Work Phone: Start: 05-29-2023 Telephone encounter Sincere Hopkins MD Work Phone: [facility] Comment on above: Osteonecrosis of rig ht hip (HCC) (Primary Dx) Start: 05-21-2023 ambulatory Fredy Carrasco 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 Work Phone: [facility] Start: 05-21-2023 Patient encounter procedure Fredy Carrasco 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 Work Phone: Orthopaedics Comment on above: Upcoming appointment for Sx Appointment on Start: 05-21-2023 Preprocedural examin ation done Fredy Carrasoc 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 Work Phone: [facility] Work Phone: Start: 05-21-2023 Telephone encounter Fredy stone 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 Work Phone: Orthopaedics Comment on above: Patient Update Start: 05-16-2023 End: 05-16-2023 Patient encounter procedure Fredy Carrasco 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 Work Phone: Orthopaedics Comment on above: Osteonecrosis of rig ht hip (HCC) (Primary Dx) Start: 05-15-2023 Refill Luis Manuel ROSEDRAW HAND Work Phone: [facility] Comment on above: Refill Request ([facility] Managed Refill) Start: 05-06-2023 Telephone encounter Fredy Steffen stone APRN.MORTGAGE LOAN ASSISTANT Work Phone: Orthopaedics Comment on above: Patient Question; Pa tient Update Results Start: 05-03-2023 End: 05-03-2023 Subsequent hospital visit by physician Danielle Loja MD Work Phone: Radiology Comment on above: Trochanteric bursiti s of right hip [M70.61] Start: 05-03-2023 End: 05-03-2023 Patient encounter murtaza Silva APRN.MORTGAGE LOAN ASSISTANT Work Phone: [facility] [place] Comment on above: Trochanteric bursiti s of right hip (Primary Dx); Pain of right hip; Fall, initial encounter Start: 05-02-2023 Telephone encounter Bg fong MD Work Phone: [facility] [place] Comment on above: Medication Request Patient Question; Pa tient Update Start: 05-01-2023 Telephone encounter Lorena sigala MD Work Phone: Orthopaedics Comment on above: Patient Question Start: 04-24-2023 Telephone encounter Lorena sigala MD Work Phone: [facility] [place] Comment on above: Patient Question Patient Update Start: 04-22-2023 End: 04-22-2023 ambulatory Zhen Powell PT Work Phone: [facility] Comment on above: Trochanteric bursiti s of right hip (Primary Dx) Start: 04-08-2023 End: 04-08-2023 ambulatory Zhen Powell PT Work Phone: [facility] Comment on above: Trochanteric bursiti s of right hip (Primary Dx) Start: 04-01-2023 End: 04-01-2023 ambulatory Zhen Powell PT Work Phone: [facility] Comment on above: Trochanteric bursiti s of right hip (Primary Dx) Start: 03-25-2023 End: 03-25-2023 ambulatory Zhen Powell PT Work Phone: [facility] Comment on above: Trochanteric bursiti s of right hip (Primary Dx) Start: 03-20-2023 End: 03-20-2023 Subsequent hospital visit by physician Radha Nation APRN.MORTGAGE LOAN ASSISTANT Work Phone: [facility] Comment on above: Primary osteoarthrit is of right hip [M16.11] Start: 03-19-2023 End: 03-19-2023 ambulatory Zhen Powell PT Work Phone: [facility] Comment on above: Trochanteric bursiti s of right hip (Primary Dx) Start: 03-15-2023 End: 03-15-2023 Office outpatient visit 25 minutes Bg Chavarria MD Work Phone: [facility] [place] Comment on above: Type 2 diabetes jessenia itus with other specified complication, without long-term current use of insulin (HCC) (Primary Dx); Vitamin D deficiency; Encounter for long-term current use of medication; Elevated LDL cholesterol level; Status post total replacement of left hip; Leg lesion, left; Gastroesophageal reflux disease, unspecified whether esophagitis present Start: 03-01-2023 End: 03-01-2023 ambulatory Zhen Powell PT Work Phone: [facility] Comment on above: Trochanteric bursiti s of right hip (Primary Dx) Start: 02-07-2023 ambulatory Lorena Green Work Phone: Orthopaedics Comment on above: Injection Start: 02-07-2023 End: 02-07-2023 Subsequent hospital visit by physician [facility] Work Phone: Radiology Comment on above: Pain in right hip [M 25.551] Start: 02-04-2023 End: 02-04-2023 Office outpatient visit 25 minutes Luis Manuel Hernandez APRN.CNS Work Phone: [facility] [place] Comment on above: Chronic pain of righ t hip (Primary Dx); S/P total left hip arthroplasty; Multiple sclerosis (HCC) Start: 02-01-2023 ambulatory Bg burris MD Work Phone: [facility] [place] Comment on above: Right groin pain Start: 12-20-2022 Refill Bg burirs MD Work Phone: Orthopaedics Comment on above: Refill Request Start: 12-17-2022 Refill Luis Manuel Hernandez A PRN.DRAW HAND Work Phone: [facility] [place] Comment on above: Refill Request Start: 11-19-2022 Refill Luis Manuel Hernandez A PRN.DRAW HAND Work Phone: [facility] [place] Comment on above: Refill Request Start: 11-07-2022 Telephone encounter Kori dominguez [facility] [place] Comment on above: Orders Start: 09-14-2022 End: 09-14-2022 Subsequent hospital visit by physician Xr [facility] [place] Work Phone: Radiology Comment on above: Bursitis of other bu rsa of right hip [M70.71] Start: 09-14-2022 End: 09-14-2022 Patient encounter procedure Linda Silva 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 Work Phone: Internal Medicine [place] Comment on above: Bursitis of other bu rsa of right hip (Primary Dx); Fall, sequela Start: 09-07-2022 End: 09-07-2022 Subsequent hospital visit by physician Xr [facility] [place] Work Phone: Radiology Comment on above: Acquired hammer toe [M20.40] Start: 08-13-2022 ambulatory Bg burris MD Work Phone: [facility] [place] Start: 08-13-2022 Patient encounter procedure Bg Chavarria MD Work Phone: [facility] [place] Comment on above: Request for Referral to [employer] Start: 07-12-2022 Patient Update Salvatore Heard [facility] Comment on above: Medication Update (A mb refill: consent approved ) Start: 06-28-2022 End: 06-28-2022 Patient encounter procedure Luis Manuel Hernandez REFRIGERATION BRAZER/SOLDERER.DRAW HAND Work Phone: [facility] Medicine [place] Comment on above: Type 2 diabetes jessenia itus with other specified complication, without long-term current use of insulin (HCC) (Primary Dx); Low vitamin B12 level; Gastroesophageal reflux disease, unspecified whether esophagitis present; Vitamin D deficiency; Elevated LDL cholesterol level; Encounter for immunization Start: 05-31-2022 Refill Gregg Molina PA-C Work Phone: Orthopaedics Comment on above: Refill Request Start: 05-07-2022 Refill Jessicapascual de leon PA-C Work Phone: Orthopaedics Comment on above: Refill Request Start: 05-04-2022 End: 05-04-2022 Subsequent hospital visit by physician Nuha Saab MD Work Phone: Ambulatory Surgery Comment on above: Rectal bleeding [K62 .5] Start: 04-30-2022 Refill Luis Manuel BANKSNDavisDRAW HAND Work Phone: [facility] Comment on above: Refill Request Start: 04-24-2022 ambulatory Nuha lucio MD Work Phone: General Surgery Comment on above: Colonoscopy Prep Start: 04-24-2022 E-mail encounter fro m caregiver Nuha Saab MD [facility] Start: 03-15-2022 End: 03-15-2022 ambulatory Angus Silveira MD Work Phone: Internal Medicine [place] Comment on above: COVID-19 (Primary Dx ) Start: 03-15-2022 End: 03-15-2022 Telemedicine consultation with patient Angus Silveira MD Work Phone: [facility] [place] Start: 03-14-2022 Telephone encounter Bg fong MD Work Phone: Internal Medicine [place] Comment on above: Patient Update (Home COVID test was positive, waiting for PCR test results); Medication Request Start: 03-06-2022 Documentation procedure Mammog sudarshan Coordinator [facility] Start: 03-06-2022 Letter encounter Mammography Coordinator [facility] Department Start: 03-06-2022 End: 03-06-2022 Subsequent hospital visit by physician Screen Mammo [facility] Comment on above: Breast cancer screen ing by mammogram [Z12.31] Start: 03-05-2022 End: 03-05-2022 Patient encounter procedure Nuha Saab MD Work Phone: General Surgery Comment on above: Rectal bleeding (Mary joce Dx); Colon cancer screening Start: 03-02-2022 End: 03-02-2022 Subsequent hospital visit by physician Anibal Lake MD Work Phone: [facility] Surgery Comment on above: Chronic midline low back pain without sciatica [M54.50, G89.29] Start: 02-27-2022 End: 02-27-2022 Office outpatient visit 25 minutes Bg Chavarria MD Work Phone: Internal Medicine [place] Comment on above: Type 2 diabetes jessenia itus with other specified complication, without long-term current use of insulin (HCC) (Primary Dx); Low vitamin B12 level; Vitamin D deficiency; Elevated LDL cholesterol level; Breast cancer screening by mammogram; Colon cancer screening Start: 02-13-2022 End: 02-13-2022 Patient encounter procedure Lorena Jacobsen MD Work Phone: Orthopaedics Comment on above: Status post total re placement of left hip (Primary Dx) Start: 02-07-2022 Orders Only Anibal Lake MD Work Phone: Pain Management Comment on above: Chronic midline low back pain without sciatica (Primary Dx); DDD (degenerative disc disease), lumbar; Lumbar spondylosis; Scoliosis of lumbar spine, unspecified scoliosis type Start: 02-01-2022 Telephone encounter Anibal alvarado MD Work Phone: Pain Management Comment on above: Appointment Start: 01-22-2022 Telephone encounter Anibal alvarado MD Work Phone: Pain Management Comment on above: Orders Insurance Authorizat ion (risedronate (ACTONEL) 35 mg tablet); Refill Request Start: 01-16-2022 Orders Only Lorena Green Work Phone: Orthopaedics Comment on above: Pain in left hip (Pr imary Dx) Start: 11-28-2021 ambulatory Bg burris MD Work Phone: [facility] Start: 11-28-2021 Manual pelvic examination Bg Chavarria MD Work Phone: Internal Medicine [place] Comment on above: internal pelvic exam and breast exam Start: 01-24-[address] Manuela Chavarria MD Work Phone: [facility] Procedures Date Procedure Procedure Detail Performing Clinician Start: 02-15-2025 Ecg routine ecg w/le ast 12 lds w/i&r Oxana Darling 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 Work Phone: Start: 12-18-2024 PFIZER-BIONTECH COVI D-19 VACCINE AGE 12+ YR (COMIRNATY) Bg Chavarria MD Work Phone: Start: 07-28-2024 Adult depression scr eening assessment Linda Silva 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 Work Phone: Start: 07-06-2024 Ecg routine ecg w/le ast 12 lds i&r only Luis Manuel Hernandez REFRIGERATION BRAZER/SOLDERER.DRAW HAND Work Phone: Start: 05-07-2024 Radex hip unilateral with pelvis 2-3 views Fredy Carrasco 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 Work Phone: Start: 03-31-2024 Radiologic exam knee complete 4/more views Bg Chavarria MD Work Phone: Start: 11-18-2023 Hemoglobin A1c/Hemoglobin.total in Blood Bg Chavarria MD Work Phone: Start: 10-16-2023 Radex hip unilateral with pelvis 2-3 views Sincere Hopkins MD Work Phone: Start: 07-15-2023 RSV VACCINE, BIVALEN T (ABRYSVO) Luis Manuel Hernandez REFRIGERATION BRAZER/SOLDERER.DRAW HAND Work Phone: Start: 07-12-2023 Radex hip unilateral with pelvis 2-3 views Joe Jiang PA-C Work Phone: Start: 06-20-2023 Sars-cov-2 detection by dna/rna Yarelis Rodarte 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 Work Phone: Start: 06-20-2023 STREP A MOLECULAR (POC) Yarelis Rodarte 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 Work Phone: Start: 05-03-2023 Radex hip unilateral with pelvis 2-3 views Linda Silva 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 Work Phone: Start: 03-20-2023 Arthrocentesis aspir &/inj major jt/bursa w/us Lorena Jacobsen MD Work Phone: Start: 02-07-2023 Radex hip unilateral with pelvis 2-3 views James Marcano PA-C Work Phone: Start: 09-14-2022 Radex hip unilateral with pelvis 2-3 views Linda Silva 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 Work Phone: Start: 09-07-2022 Radex foot complete minimum 3 views Elton Koch Work Phone: Start: 06-28-2022 INFLUENZA SEASONAL QUADRIVALENT HIGH DOSE AGE 65+ Luis Manuel Hernandez REFRIGERATION BRAZER/SOLDERER.DRAW HAND Work Phone: Start: 05-04-2022 Colonoscopy flx dx w /collj spec when pfrmd Nuha Saab MD Work Phone: Start: 03-06-2022 Screening mammograph y bi 2-view breast inc cad Bg Chavarria MD Work Phone: Start: 03-02-2022 Gluc bld gluc mntr d ev cleared fda spec home use Anibal Lake MD Work Phone: Start: 02-27-2022 Adult depression scr eening assessment Anibal Lake MD Work Phone: Start: 02-15-2021 Adult depression scr eening assessment Bg Chavarria MD Work Phone: Plan of Treatment Date Care Activity Detail Author Start: 06-26-2028 Urine microalbumin profile [facility] Start: 03-18-2026 End: 03-18-2026 Patient encounter procedure 03/18/2026 9:40 AM EDT Office Visit [facility] [place] [address] [place] [address] Bg Chavarria MD [address] [place] [address] 4 month follow up [facility] [place] Comment on above: 4 month follow up Start: 03-15-2026 Hepatitis B screening Urine Albumin:Creatinine Ratio [facility] Start: 03-15-2026 Hepatitis B surface antibody level LDL Cholesterol [facility] Start: 02-01-2026 Glaucoma screening Dilated Retinal Exam [facility] Start: 11-22-2025 End: 11-22-2025 Patient encounter procedure 11/22/2025 9:40 AM EST Office Visit [facility] [place] [address] [place] [address] Bg Chavarria MD [address] [facility] [place] [address] follow up 4 months [facility] [place] Comment on above: follow up 4 months Start: 09-14-2025 Hemoglobin A1c measurement HbA1C [facility] Start: 07-28-2025 Anxiety Screening Anxiety Screening [facility] Start: 07-28-2025 Depression Screening Depression Screening [facility] Start: 07-27-2025 End: 07-27-2025 Patient encounter procedure 07/27/2025 9:40 AM EDT Office Visit [facility] [place] [address] [place] [address] Bg Chavarria MD [address] [place] [address] 4 mo follow up [facility] [place] Comment on above: 4 mo follow up Start: 07-19-2025 End: 07-19-2025 ambulatory 07/19/2025 8:30 AM EDT Results Only [facility] [address] [place] [address] [facility] Start: 07-06-2025 Diabetic foot examination Diabetic Foot Exam [facility] Start: 06-19-2025 End: 09-18-2025 Basic metabolic 2000 panel - Serum or Plasma BASIC METABOLIC PANEL Lab Routine Type 2 diabetes mellitus with other specified complication, without long-term current use of insulin (HCC) Expected: 06/19/2025 (Approximate), Expires: 09/18/2025 [facility] Work Phone: Comment on above: Expected: 06/19/2025 (Approximate), Expi res: 09/18/2025 Start: 06-19-2025 End: 09-18-2025 Hemoglobin A1c in Blood HEMOGLOBIN A1C Lab Routine Type 2 diabetes mellitus with other specified complication, without long-term current use of insulin (HCC) Expected: 06/19/2025 (Approximate), Expires: 09/18/2025 [facility] Comment on above: Expected: 06/19/2025 (Approximate), Expi res: 09/18/2025 Start: 06-11-2025 End: 06-11-2025 Patient encounter procedure [facility] Comment on above: 4 month f/u. dlm Start: 05-31-2025 Influenza vaccination Influenza Vaccine (#1) [facility] c Start: 03-19-2025 End: 03-19-2025 Patient encounter procedure 03/19/2025 9:40 AM EDT Office Visit Internal Medicine [place] [address] [place] [address] Bg hCavarria MD [address] [place] [address] 4 mo follow up [facility] [place] Comment on above: 4 mo follow up Start: 03-18-2025 End: 03-18-2025 Patient encounter procedure 03/18/2025 12:30 PM EDT Appointment Radiology [address] [place] [phone] [facility] Comment on above: [facility] Start: 03-11-2025 Hepatitis B screening Urine Albumin:Creatinine Ratio [facility] Start: 03-11-2025 Hepatitis B surface antibody level LDL Cholesterol [facility] Start: 02-28-2025 End: 05-30-2025 25-hydroxyvitamin D3 [Mass/volume] in Serum or Plasma VITAMIN D 25 HYDROXY Lab Routine Vitamin D deficiency Expected: 02/28/2025 (Approximate), Expires: 05/30/2025 [facility] Comment on above: Expected: 02/28/2025 (Approximate), Expi res: 05/30/2025 Start: 02-28-2025 End: 05-30-2025 CBC panel - Blood by Automated count COMPLETE BLOOD COUNT Lab Routine Type 2 diabetes mellitus with other specified complication, without long-term current use of insulin (HCC) Expected: 02/28/2025 (Approximate), Expires: 05/30/2025 [facility] Comment on above: Expected: 02/28/2025 (Approximate), Expi res: 05/30/2025 Start: 02-28-2025 End: 05-30-2025 Cobalamin (Vitamin B12) [Mass/volume] in Serum or Plasma VITAMIN B12 Lab Routine Low vitamin B12 level Expected: 02/28/2025 (Approximate), Expires: 05/30/2025 [facility] Comment on above: Expected: 02/28/2025 (Approximate), Expi res: 05/30/2025 Start: 02-28-2025 End: 05-30-2025 Comprehensive metabolic 2000 panel - Serum or Plasma COMPREHENSIVE METABOLIC PANEL Lab Routine Type 2 diabetes mellitus with other specified complication, without long-term current use of insulin (HCC) Expected: 02/28/2025 (Approximate), Expires: 05/30/2025 [facility] Comment on above: Expected: 02/28/2025 (Approximate), Expi res: 05/30/2025 Start: 02-28-2025 End: 05-30-2025 Hemoglobin A1c in Blood HEMOGLOBIN A1C Lab Routine Type 2 diabetes mellitus with other specified complication, without long-term current use of insulin (HCC) Expected: 02/28/2025 (Approximate), Expires: 05/30/2025 [facility] Work Phone: Comment on above: Expected: 02/28/2025 (Approximate), Expi res: 05/30/2025 Start: 02-28-2025 End: 05-30-2025 Lipid 1996 panel - Serum or Plasma LIPID PANEL BASIC Lab Routine Type 2 diabetes mellitus with other specified complication, without long-term current use of insulin (HCC) Expected: 02/28/2025 (Approximate), Expires: 05/30/2025 [facility] Comment on above: Expected: 02/28/2025 (Approximate), Expi res: 05/30/2025 Start: 02-28-2025 End: 05-30-2025 Microalbumin/Creatinine [Mass Ratio] in Urine ALBUMIN/CREATININE RATIO, URINE Lab Routine Type 2 diabetes mellitus with other specified complication, without long-term current use of insulin (HCC) Expected: 02/28/2025 (Approximate), Expires: 05/30/2025 [facility] Comment on above: Expected: 02/28/2025 (Approximate), Expi res: 05/30/2025 Start: 02-18-2025 End: 02-18-2025 Patient encounter procedure 02/18/2025 11:15 AM EDT Appointment Radiology [address] [place] [phone] Asymptomatic postmenopausal status [Z78.0] Radiology Comment on above: Asymptomatic postmenopausal status [Z78. 0] Start: 02-15-2025 End: 02-15-2025 Patient encounter procedure [facility] Comment on above: 3 month follow up, monitor results 3 month f/u, monitor results EKG dlm Start: 02-09-2025 Glaucoma screening Dilated Retinal Exam [facility] Start: 01-29-2025 End: 01-29-2025 Patient encounter procedure 01/29/2025 3:00 PM EDT [facility] [address] [place] [address] Josue Fagan, 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 [address] [place] [address] 3 month follow up, monitor results [facility] Comment on above: 3 month follow up, monitor results Start: 01-21-2025 Hemoglobin A1c measurement HbA1C [facility] Start: 12-05-2024 Covid-19 Vaccine () Covid-19 Vaccine () [facility] Start: 11-20-2024 End: 11-20-2024 Patient encounter procedure 11/20/2024 9:40 AM EST Office Visit Internal [facility] [place] [address] [place] [address] Bg Chavarria MD [address] [place] [address] 4 mo follow up [facility] [place] Comment on above: 4 mo follow up Start: 11-13-2024 Subsequent hospital visit by physician 11/13/2024 Hospital Encounter [facility] [address] [place] [address] Russell Rodriguez MD [address] [facility] [address] [place], [place] [id number] Paroxysmal SVT (supraventricular tachycardia) (HCC) [I47.10], Postural dizziness with presyncope [R42, R55] [facility] Comment on above: Paroxysmal SVT (supraventricular tachyca rdia) (HCC) [I47.10], Postural dizziness with presyncope [R42, R55] Start: 11-02-2024 End: 11-02-2024 Patient encounter procedure 11/02/2024 11:00 AM EST Office Visit [facility] [place] [address] [place] [address] Luis Manuel Hernandez APRN.DRAW HAND [address] [place] [address] [facility] Follow up 10/27/2024; Ablation [facility] [place] Comment on above: [facility] Follow up 025; Ablation Start: 10-26-2024 End: 10-26-2024 Admission to same day surgery center 10/26/2024 7:45 AM EST - 10/26/2024 11:44 AM EST [facility] [place] [address] Russell Rodriguez MD [address] [facility] [address] [place], [place] [id number] COMPLETE EPS W/SVT ABL W/WO 3D MAP LA PACE REC [facility] Comment on above: COMPLETE EPS W/SVT ABL W/WO 3D MAP LA PA CE REC Start: 10-26-2024 End: 10-26-2024 Percutaneous transluminal ablation of atrioventricular node COMPLETE EPS W/SVT ABL W/WO 3D MAP [place] PACE REC Paroxysmal SVT (supraventricular tachycardia) (HCC) Postural dizziness with presyncope 10/26/2024 7:45 AM EST [facility] Start: 10-26-2024 Subsequent hospital visit by physician 10/26/2024 7:45 AM EST Hospital Encounter [facility] [address] [place] [address] Russell Rodriguez MD [address] [place] [address] [phone] Paroxysmal SVT (supraventricular tachycardia) (HCC) [I47.10], Postural dizziness with presyncope [R42, R55] [facility] Comment on above: Paroxysmal SVT (supraventricular tachyca rdia) (HCC) [I47.10], Postural dizziness with presyncope [R42, R55] Start: 09-30-2024 Advance Directive Discussion Advance Directive Discussion [facility] Start: 09-24-2024 End: 09-24-2024 Patient encounter procedure 09/24/2024 1:00 PM EST Office Visit [facility] [address] [address] Russell Rodriguez MD [address] [place] [address] [phone] Ref; PCP for SVT [facility] [place] Comment on above: Ref; PCP for SVT Start: 09-11-2024 End: 09-11-2024 Patient encounter procedure 09/11/2024 2:00 PM EST Office Visit Cardiology [address] [place] [address] [phone] Huyen Hernandez MD [address] [place] [id number] Postural dizziness with presyncope [R42, R55]; Former smoker [Z87.891]; Abnormal EKG [R94.31]; Type 2 diabetes mellitus with other specified complication, without long-term current use of insulin (HCC) [E11.69]; Elevated LDL cholesterol level [E78.00]; SOB (shortness of breath) [R06.02]; Throat tightness [R09.89] Cardiology Comment on above: Postural dizziness with presyncope [R42, R55]; Former smoker [Z87.891]; Abnormal EKG [R94.31]; Type 2 diabetes mellitus with other specified complication, without long-term current use of insulin (HCC) [E11.69]; Elevated LDL cholesterol level [E78.00]; SOB (shortness of breath) [R06.02]; Throat tightness [R09.89] Start: 09-10-2024 Hemoglobin A1c measurement HbA1C [facility] Start: 09-07-2024 End: 09-07-2024 Patient encounter procedure 09/07/2024 11:20 AM EST Office Visit Cardiology [address] [place] [address] Wstr, Nurse Card Admin [facility] [address] [place], [place] [phone] Postural dizziness with presyncope [R42, R55] Cardiology Comment on above: Postural dizziness with presyncope [R42, R55] Start: 07-27-2024 End: 07-27-2024 Patient encounter procedure 07/27/2024 4:20 PM EDT Office Visit [facility] [address] [place], [place] [address] Bg Chavarria MD [address] [place] [address] 4 mo follow up [facility] Comment on above: 4 mo follow up Start: 07-15-2024 3 comp foot exam completed Diabetic Foot Exam [facility] Start: 07-15-2024 Diabetic foot examination Diabetic Foot Exam [facility] Start: 07-13-2024 End: 07-13-2024 Patient encounter procedure Orthopaedics Comment on above: S/P- Rt MERLE- r hip Start: 07-06-2024 End: 10-05-2024 CBC W Auto Differential panel - Blood [facility] Comment on above: Expected: 07/06/2024, Expires: Start: 07-06-2024 End: 10-05-2024 Comprehensive metabolic 2000 panel - Serum or Plasma COMPREHENSIVE METABOLIC PANEL Lab Routine Postural dizziness with presyncope Expected: 07/06/2024, Expires: 10/05/2024 [facility] Comment on above: Expected: 07/06/2024, Expires: Start: 07-06-2024 End: 10-05-2024 Hemoglobin A1c in Blood HEMOGLOBIN A1C Lab Routine Postural dizziness with presyncope Abnormal finding of blood chemistry, unspecified Expected: 07/06/2024, Expires: 10/05/2024 [facility] Comment on above: Expected: 07/06/2024, Expires: Start: 07-06-2024 End: 10-05-2024 Thyrotropin [Units/volume] in Serum or Plasma [facility] Comment on above: Expected: 07/06/2024, Expires: Start: 07-06-2024 End: 07-06-2024 Patient encounter procedure 07/06/2024 10:20 AM EDT Office Visit [facility] [address] [place], [place] [address] Luis Manuel Hernandez APRN.DRAW HAND [address] [place], [place] [id number] Near syncope episode [facility] Comment on above: Near syncope episode Start: 06-30-2024 End: 09-29-2024 Comprehensive metabolic 2000 panel - Serum or Plasma COMPREHENSIVE METABOLIC PANEL Lab Routine Type 2 diabetes mellitus with other specified complication, without long-term current use of insulin (HCC) Expected: 06/30/2024 (Approximate), Expires: 09/29/2024 [facility] Comment on above: Expected: 06/30/2024 (Approximate), Expi res: 09/29/2024 Start: 06-30-2024 End: 09-29-2024 Hemoglobin A1c in Blood HEMOGLOBIN A1C Lab Routine Type 2 diabetes mellitus with other specified complication, without long-term current use of insulin (HCC) Expected: 06/30/2024 (Approximate), Expires: 09/29/2024 [facility] Comment on above: Expected: 06/30/2024 (Approximate), Expi res: 09/29/2024 Start: 05-31-2024 Covid-19 Vaccine ( season) Covid-19 Vaccine ( season) [facility] Start: 05-31-2024 Influenza vaccination Influenza Vaccine (#1) [facility] Start: 05-18-2024 Hemoglobin A1c measurement HbA1C [facility] Start: 05-18-2024 End: 05-18-2024 Patient encounter procedure 05/18/2024 10:00 AM EDT Office Visit [facility] [address] [facility] [address] Bg Chavarria MD [address] [place], [place] [phone] follow up lightheaded, chest pain (see mychart message) [facility] Comment on above: follow up lightheaded, chest pain (see m ychart message) Start: 05-07-2024 End: 05-07-2024 Patient encounter procedure Radiology Comment on above: xr hip,Lt left hip replacement follow up Start: 05-01-2024 End: 05-01-2024 Patient encounter procedure 05/01/2024 8:00 AM EDT Office Visit Orthopaedics [address] [place] [address] Joe Jiang PA-C [address] [address] left knee pain Orthopaedics Comment on above: left knee pain Start: 03-31-2024 End: 03-31-2024 Patient encounter procedure 03/31/2024 8:40 AM EDT Office Visit [facility] [address] [facility], [place] [phone] gB Chavarria MD [address] [place] [address] Fell and injured left knee [facility] Comment on above: Fell and injured left knee Start: 03-18-2024 End: 06-17-2024 25-hydroxyvitamin D3 [Mass/volume] in Serum or Plasma VITAMIN D 25 HYDROXY Lab Routine Vitamin D deficiency Expected: 03/18/2024 (Approximate), Expires: 06/17/2024 [facility] Work Phone: Comment on above: Expected: 03/18/2024 (Approximate), Expi res: 06/17/2024 Start: 03-18-2024 End: 06-17-2024 ALBUMIN/CREAT RATIO RND UR ALBUMIN/CREAT RATIO RND UR Lab Routine Type 2 diabetes mellitus without complication, without long-term current use of insulin (HCC) Expected: 03/18/2024 (Approximate), Expires: 06/17/2024 [facility] Work Phone: Comment on above: Expected: 03/18/2024 (Approximate), Expi res: 06/17/2024 Start: 03-18-2024 End: 06-17-2024 CBC panel - Blood by Automated count CBC Lab Routine Encounter for long-term current use of medication Expected: 03/18/2024 (Approximate), Expires: 06/17/2024 [facility] Work Phone: Comment on above: Expected: 03/18/2024 (Approximate), Expi res: 06/17/2024 Start: 03-18-2024 End: 06-17-2024 Comprehensive metabolic 2000 panel - Serum or Plasma COMP METABOLIC PANEL Lab Routine Type 2 diabetes mellitus without complication, without long-term current use of insulin (HCC) Encounter for long-term current use of medication Expected: 03/18/2024 (Approximate), Expires: 06/17/2024 [facility] Work Phone: Comment on above: Expected: 03/18/2024 (Approximate), Expi res: 06/17/2024 Start: 03-18-2024 End: 06-17-2024 Hemoglobin A1c in Blood HGB A1C Lab Routine Type 2 diabetes mellitus without complication, without long-term current use of insulin (HCC) Expected: 03/18/2024 (Approximate), Expires: 06/17/2024 [facility] Work Phone: Comment on above: Expected: 03/18/2024 (Approximate), Expi res: 06/17/2024 Start: 03-18-2024 End: 06-17-2024 Lipid 1996 panel - Serum or Plasma LIPID PANEL BASIC Lab Routine Elevated LDL cholesterol level Expected: 03/18/2024 (Approximate), Expires: 06/17/2024 [facility] Work Phone: Comment on above: Expected: 03/18/2024 (Approximate), Expi res: 06/17/2024 Start: 03-17-2024 End: 03-17-2024 Patient encounter procedure 03/17/2024 9:40 AM EDT Office Visit [facility] [address] [place] [address] Bg Chavarria MD [address] [place] [address] 4 Month follow up [facility] Comment on above: 4 Month follow up Start: 03-08-2024 Hepatitis B surface antibody level LDL CHOLESTEROL [facility] Start: 02-05-2024 3 comp foot exam completed DIABETIC FOOT EXAM [facility] Start: 01-30-2024 End: 01-30-2024 ambulatory 01/30/2024 1:00 PM EDT [facility] [address] [place] [address] Luis Manuel Hernandez APRN.DR[employer] [address] [place] [address] COVID + would like treatment with Paxlovid [facility] Comment on above: COVID + would like treatment with Paxlov id Start: 01-17-2024 Glaucoma screening Dilated Retinal Exam [facility] Start: 01-17-2024 Hepatitis C antibody, confirmatory test DILATED RETINAL EXAM [facility] Start: 12-20-2023 Hemoglobin A1c measurement HbA1C [facility] Start: 12-20-2023 Hemoglobin A1c/Hemoglobin.total in Blood HbA1C [facility] Start: 11-18-2023 Covid-19 Vaccine () Covid-19 Vaccine () [facility] Start: 09-07-2023 Hemoglobin A1c/Hemoglobin.total in Blood HBA1C [facility] Start: 2023 End: 10-15-2023 CBC W Auto Differential panel - Blood CBC + DIFF Lab Routine Blood loss anemia Expected: 2023 (Approximate), Expires: 10/15/2023 [facility] Work Phone: Comment on above: Expected: 2023 (Approximate), Expi res: 10/15/2023 Start: 07-15-2023 End: 09-14-2023 25-hydroxyvitamin D3 [Mass/volume] in Serum or Plasma VITAMIN D 25 HYDROXY Lab Routine Vitamin D deficiency Expected: 07/15/2023 (Approximate), Expires: 09/14/2023 [facility] Work Phone: Comment on above: Expected: 07/15/2023 (Approximate), Expi res: 09/14/2023 Start: 07-15-2023 End: 09-14-2023 ALBUMIN/CREAT RATIO RND UR ALBUMIN/CREAT RATIO RND UR Lab Routine Type 2 diabetes mellitus with other specified complication, without long-term current use of insulin (HCC) Expected: 07/15/2023 (Approximate), Expires: 09/14/2023 [facility] Work Phone: Comment on above: Expected: 07/15/2023 (Approximate), Expi res: 09/14/2023 Start: 07-15-2023 End: 09-14-2023 CBC panel - Blood by Automated count CBC Lab Routine Encounter for long-term current use of medication Expected: 07/15/2023 (Approximate), Expires: 09/14/2023 [facility] Work Phone: Comment on above: Expected: 07/15/2023 (Approximate), Expi res: 09/14/2023 Start: 07-15-2023 End: 09-14-2023 Comprehensive metabolic 2000 panel - Serum or Plasma COMP METABOLIC PANEL Lab Routine Type 2 diabetes mellitus with other specified complication, without long-term current use of insulin (HCC) Vitamin D deficiency Encounter for long-term current use of medication Expected: 07/15/2023 (Approximate), Expires: 09/14/2023 [facility] Work Phone: Comment on above: Expected: 07/15/2023 (Approximate), Expi res: 09/14/2023 Start: 07-15-2023 End: 09-14-2023 Hemoglobin A1c in Blood HGB A1C Lab Routine Type 2 diabetes mellitus with other specified complication, without long-term current use of insulin (HCC) Expected: 07/15/2023 (Approximate), Expires: 09/14/2023 [facility] Work Phone: Comment on above: Expected: 07/15/2023 (Approximate), Expi res: 09/14/2023 Start: 07-15-2023 End: 09-14-2023 Lipid 1996 panel - Serum or Plasma LIPID PANEL BASIC Lab Routine Type 2 diabetes mellitus with other specified complication, without long-term current use of insulin (HCC) Elevated LDL cholesterol level Expected: 07/15/2023 (Approximate), Expires: 09/14/2023 [facility] Work Phone: Comment on above: Expected: 07/15/2023 (Approximate), Expi res: 09/14/2023 Start: 06-28-2023 3 comp foot exam completed DIABETIC FOOT EXAM [facility] Start: 06-28-2023 Hepatitis B surface antibody level LDL CHOLESTEROL [facility] Start: 06-05-2023 End: 08-05-2023 CBC W Auto Differential panel - Blood CBC + DIFF Lab Routine Osteonecrosis of right hip (HCC) Pre-op testing Expected: 06/05/2023, Expires: 08/05/2023 [facility] Work Phone: Comment on above: Expected: 06/05/2023, Expires: Start: 06-05-2023 End: 08-05-2023 Comprehensive metabolic 2000 panel - Serum or Plasma COMP METABOLIC PANEL Lab Routine Osteonecrosis of right hip (HCC) Pre-op testing Expected: 06/05/2023, Expires: 08/05/2023 [facility] Work Phone: Comment on above: Expected: 06/05/2023, Expires: Start: 06-05-2023 End: 08-05-2023 Hemoglobin A1c in Blood HGB A1C Lab Routine Osteonecrosis of right hip (HCC) Pre-op testing Controlled type 2 diabetes mellitus without complication, without long-term current use of insulin (HCC) Expected: 06/05/2023, Expires: 08/05/2023 [facility] Work Phone: Comment on above: Expected: 06/05/2023, Expires: 3 Start: 06-05-2023 End: 08-05-2023 TYPE AND SCREEN,30 DAY TYPE AND SCREEN,30 DAY Blood Bank Routine Osteonecrosis of right hip (HCC) Pre-op testing Expected: 06/05/2023, Expires: 08/05/2023 [facility] Work Phone: Comment on above: Expected: 06/05/2023, Expires: Start: 05-31-2023 Covid-19 Vaccine ( season) Covid-19 Vaccine () [facility] Start: 05-31-2023 Influenza vaccination [facility] Start: 05-09-2023 Hemoglobin A1c/Hemoglobin.total in Blood HBA1C [facility] Start: 03-15-2023 ANNUAL PCP TEAM CHRONIC DISEASE VISIT ANNUAL PCP TEAM CHRONIC DISEASE VISIT [facility] Start: 02-27-2023 Adult depression screening assessment DEPRESSION SCREENING [facility] Start: 02-27-2023 ANNUAL PCP TEAM CHRONIC DISEASE VISIT ANNUAL PCP TEAM CHRONIC DISEASE VISIT [facility] Start: 02-19-2023 Hepatitis B screening URINE ALBUMIN:CREATININE RATIO [facility] Start: 01-25-2023 Hepatitis C antibody, confirmatory test DILATED RETINAL EXAM [facility] Start: 10-24-2022 3 comp foot exam completed DIABETIC FOOT EXAM [facility] Start: 10-24-2022 ANNUAL PCP TEAM CHRONIC DISEASE VISIT ANNUAL PCP TEAM CHRONIC DISEASE VISIT [facility] Start: 09-30-2022 ADVANCE DIRECTIVE DISCUSSION ADVANCE DIRECTIVE DISCUSSION [facility] Start: 08-22-2022 Hemoglobin A1c/Hemoglobin.total in Blood HBA1C [facility] Start: 06-29-2022 End: 08-29-2022 CBC panel - Blood by Automated count CBC Lab Routine Type 2 diabetes mellitus with other specified complication, without long-term current use of insulin (HCC) Expected: 06/29/2022 (Approximate), Expires: 08/29/2022 [facility] Work Phone: Comment on above: Expected: 06/29/2022 (Approximate), Expi res: 08/29/2022 Start: 06-29-2022 End: 08-29-2022 Comprehensive metabolic 2000 panel - Serum or Plasma COMP METABOLIC PANEL Lab Routine Type 2 diabetes mellitus with other specified complication, without long-term current use of insulin (HCC) Expected: 06/29/2022 (Approximate), Expires: 08/29/2022 [facility] Work Phone: Comment on above: Expected: 06/29/2022 (Approximate), Expi res: 08/29/2022 Start: 06-29-2022 End: 08-29-2022 Hemoglobin A1c/Hemoglobin.total in Blood HGB A1C Lab Routine Type 2 diabetes mellitus with other specified complication, without long-term current use of insulin (HCC) Expected: 06/29/2022 (Approximate), Expires: 08/29/2022 [facility] Work Phone: Comment on above: Expected: 06/29/2022 (Approximate), Expi res: 08/29/2022 Start: 06-29-2022 End: 08-29-2022 LIPID PANEL BASIC LIPID PANEL BASIC Lab Routine Elevated LDL cholesterol level Expected: 06/29/2022 (Approximate), Expires: 08/29/2022 [facility] Work Phone: Comment on above: Expected: 06/29/2022 (Approximate), Expi res: 08/29/2022 Start: 06-29-2022 End: 08-29-2022 VITAMIN B12 BLOOD VITAMIN B12 BLOOD Lab Routine Low vitamin B12 level Expected: 06/29/2022 (Approximate), Expires: 08/29/2022 [facility] Work Phone: Comment on above: Expected: 06/29/2022 (Approximate), Expi res: 08/29/2022 Start: 06-29-2022 End: 11-30-2022 VITAMIN D 25 HYDROXY VITAMIN D 25 HYDROXY Lab Routine Vitamin D deficiency Expected: 06/29/2022 (Approximate), Expires: 08/29/2022 [facility] Work Phone: Comment on above: Expected: 06/29/2022 (Approximate), Expi res: 08/29/2022 Start: 06-28-2022 End: 08-28-2022 25-hydroxyvitamin D3 [Mass/volume] in Serum or Plasma [facility] Work Phone: Comment on above: Expected: 06/28/2022, Expires: 2 Start: 06-28-2022 End: 08-28-2022 CBC W Auto Differential panel - Blood [facility] Work Phone: Comment on above: Expected: 06/28/2022, Expires: 2 Start: 06-28-2022 End: 08-28-2022 Cobalamin (Vitamin B12) [Mass/volume] in Serum or Plasma [facility] Work Phone: Comment on above: Expected: 06/28/2022, Expires: 2 Start: 06-28-2022 End: 08-28-2022 Comprehensive metabolic 2000 panel - Serum or Plasma [facility] Work Phone: Comment on above: Expected: 06/28/2022, Expires: 2 Start: 06-28-2022 End: 08-28-2022 LIPID PANEL, NONFASTING [facility] Work Phone: Comment on above: Expected: 06/28/2022, Expires: 2 Start: 06-27-2022 Hepatitis B surface antibody level LDL CHOLESTEROL [facility] Start: 06-23-2022 ANNUAL PCP TEAM CHRONIC DISEASE VISIT ANNUAL PCP TEAM CHRONIC DISEASE VISIT [facility] Start: 05-31-2022 Influenza vaccination INFLUENZA (#1) [facility] Start: 02-15-2022 Adult depression screening assessment DEPRESSION SCREENING [facility] Start: 12-25-2021 Hemoglobin A1c/Hemoglobin.total in Blood HBA1C [facility] Start: 11-28-2021 Hepatitis C antibody, confirmatory test DILATED RETINAL EXAM [facility] Start: 11-24-2021 COVID-19 VACCINE (4 - Booster for Moderna series) COVID-19 VACCINE (4 - Booster for Moderna series) [facility] Start: 10-17-2021 Hepatitis B screening URINE ALBUMIN:CREATININE RATIO [facility] Start: 09-30-2021 ADVANCE DIRECTIVE DISCUSSION ADVANCE DIRECTIVE DISCUSSION [facility] Start: 07-31-2006 Medicare Annual Wellness Visit Medicare Annual Wellness Visit [facility] Start: 2001 Hepatitis B Vaccine (1 of 3 - Risk 3-dose series) Hepatitis B Vaccine (1 of 3 - Risk 3-dose series) [facility] Start: 1959 Anxiety Screening Anxiety Screening [facility] Start: 1959 Depression Screening Depression Screening [facility] End: 12-20-2025 BD DXA TRABECULAR BONE SCORE (TBS) BD DXA TRABECULAR BONE SCORE (TBS) Radiology Routine Asymptomatic postmenopausal status 1 Occurrences starting 11/20/2024 until 12/20/2025 [facility] Comment on above: 1 Occurrences starting 11/20/2024 until 12/20/2025 BD DXA TRABECULAR ELIZABETH NE SCORE (TBS) BD DXA TRABECULAR BONE SCORE (TBS) Radiology Routine Asymptomatic postmenopausal status 03/18/2025 12:52 PM EDT [facility] End: 03-05-2023 COLONOSCOPY DIAGNOSTIC COLONOSCOPY DIAGNOSTIC Endoscopy Routine Rectal bleeding 1 Occurrences starting 03/05/2022 until 03/05/2023 [facility] Work Phone: Comment on above: 1 Occurrences starting 03/05/2022 until 03/05/2023 End: 06-19-2024 CT HIP WO IVCON RIGHT CT HIP WO IVCON RIGHT Radiology Routine Presence of right artificial hip joint Osteonecrosis of right hip (HCC) Preoperative examination 1 Occurrences starting 05/21/2023 until 06/19/2024 [facility] Work Phone: Comment on above: 1 Occurrences starting 05/21/2023 until 06/19/2024 Dstr nrolytc agnt parverteb fct addl lmbr/sacral DSTR NROLYTC AGNT PARVERTEB FCT ADDL LMBR/SACRAL Procedures Routine Chronic midline low back pain without sciatica DDD (degenerative disc disease), lumbar Lumbar spondylosis 1 Occurrences starting 01/22/2022 [facility] Work Phone: Comment on above: 1 Occurrences starting 01/22/2022 Dstr nrolytc agnt parverteb fct sngl lmbr/sacral DSTR NROLYTC AGNT PARVERTEB FCT SNGL LMBR/SACRAL Procedures Routine Chronic midline low back pain without sciatica DDD (degenerative disc disease), lumbar Lumbar spondylosis 1 Occurrences starting 01/22/2022 [facility] Work Phone: Comment on above: 1 Occurrences starting 01/22/2022 End: 12-20-2025 DXA Skeletal system.axial Views for bone density DXA-AXIAL SKELETON Radiology Routine Asymptomatic postmenopausal status 1 Occurrences starting 11/20/2024 until 12/20/2025 [facility] Comment on above: 1 Occurrences starting 11/20/2024 until 12/20/2025 DXA Skeletal system. axial Views for bone density DXA-AXIAL SKELETON Radiology Routine Asymptomatic postmenopausal status 03/18/2025 12:52 PM EDT [facility] Work Phone: ECG B/O W INTERP (ME D OFFICE) ECG B/O W INTERP (MED OFFICE) ECG Routine Paroxysmal SVT (supraventricular tachycardia) (HCC) Ordered: 09/24/2024 [facility] Work Phone: Comment on above: Ordered: 09/24/2024 ECG COMPLETE ECG COMPLETE ECG 07/06/2024 11:40 AM EDT [facility] EVENT MONITOR EVENT MONITOR Ca rdiology Routine Paroxysmal SVT (supraventricular tachycardia) (HCC) Typical atrial flutter (HCC) S/P catheter ablation of slow pathway Ordered: 10/30/2024 [facility] Work Phone: Comment on above: Ordered: 10/30/2024 OUTSIDE VENDOR CARDI AC OUTPATIENT EXTENDED RHYTHM RECORDING (WITHOUT TELEMETRY) OUTSIDE VENDOR CARDIAC OUTPATIENT EXTENDED RHYTHM RECORDING (WITHOUT TELEMETRY) Holter Routine Postural dizziness with presyncope Ordered: 07/06/2024 [facility] Work Phone: Comment on above: Ordered: 07/06/2024 OUTSIDE VENDOR CARDI AC OUTPATIENT EXTENDED RHYTHM RECORDING (WITHOUT TELEMETRY) OUTSIDE VENDOR CARDIAC OUTPATIENT EXTENDED RHYTHM RECORDING (WITHOUT TELEMETRY) Holter Routine Paroxysmal SVT (supraventricular tachycardia) (HCC) Typical atrial flutter (HCC) Ordered: 02/15/2025 [facility] Work Phone: Comment on above: Ordered: 02/15/2025 Percutaneous translu lisa ablation of atrioventricular node COMPLETE EPS W/SVT ABL W/WO 3D MAP LA PACE REC Paroxysmal SVT (supraventricular tachycardia) (HCC) Postural dizziness with presyncope [facility] PFIZER-BIONTECH COVI D-19 VACCINE () AGE 12+ YR PFIZER-BIONTECH COVID-19 VACCINE ( SEASON) AGE 12+ YR Immunization/Injection Routine Encounter for immunization 1 Occurrences starting 07/15/2023 [facility] Work Phone: Comment on above: 1 Occurrences starting 07/15/2023 PT PLAN OF CARE CERTIFICATION PT PLAN OF CARE CERTIFICATION Procedures Routine Trochanteric bursitis of right hip Ordered: 04/08/2023 [facility] Work Phone: Comment on above: Ordered: 04/08/2023 End: 02-15-2023 Radiologic examination pelvis 1/2 views XR PELVIS 1V AP Radiology Routine Pain in left hip 1 Occurrences starting 01/16/2022 until 02/15/2023 [facility] Work Phone: Comment on above: 1 Occurrences starting 01/16/2022 until 02/15/2023 End: 03-29-2023 Screening mammography bi 2-view breast inc cad ANGIE SCREENING Radiology Routine Breast cancer screening by mammogram 1 Occurrences starting 02/27/2022 until 03/29/2023 [facility] Work Phone: Comment on above: 1 Occurrences starting 02/27/2022 until 03/29/2023 End: 07-06-2025 STRESS ECHO TREADMILL STRESS ECHO TREADMILL Cardiology Routine Postural dizziness with presyncope Former smoker Abnormal EKG Type 2 diabetes mellitus with other specified complication, without long-term current use of insulin (HCC) Elevated LDL cholesterol level SOB (shortness of breath) Throat tightness 1 Occurrences starting 07/06/2024 until 07/06/2025 [facility] Comment on above: 1 Occurrences starting 07/06/2024 until 07/06/2025 End: 10-14-2023 XR HIP GENERAL 3V PELV/AP/LAT RIGHT XR HIP GENERAL 3V PELV/AP/LAT RIGHT Radiology Routine Bursitis of other bursa of right hip 1 Occurrences starting 09/14/2022 until 10/14/2023 [facility] Work Phone: Comment on above: 1 Occurrences starting 09/14/2022 until 10/14/2023 XR HIP GENERAL 3V PELV/AP/LAT RIGHT XR HIP GENERAL 3V PELV/AP/LAT RIGHT Radiology Routine Bursitis of other bursa of right hip 09/14/2022 12:03 PM EST [facility] Work Phone: End: 03-05-2024 XR HIP GENERAL 3V PELV/AP/LAT RIGHT XR HIP GENERAL 3V PELV/AP/LAT RIGHT Radiology Routine Chronic pain of right hip 1 Occurrences starting 02/04/2023 until 03/05/2024 [facility] Work Phone: Comment on above: 1 Occurrences starting 02/04/2023 until 03/05/2024 End: 04-30-2025 XR Knee - left 4 Views XR KNEE GENERAL 4V AP BOTH/PA BOTH/LAT/MERC LEFT Radiology Routine Acute pain of left knee Contusion of left knee, initial encounter 1 Occurrences starting 03/31/2024 until 04/30/2025 [facility] Work Phone: Comment on above: 1 Occurrences starting 03/31/2024 until 04/30/2025 XR Knee - left 4 Views XR KNEE G ENERAL 4V AP BOTH/PA BOTH/LAT/MERC LEFT Radiology Routine Acute pain of left knee Contusion of left knee, initial encounter 03/31/2024 10:39 AM EDT [facility] End: 05-28-2025 XR Knee - left 4 Views XR KNEE GENERAL 4V AP BOTH/PA BOTH/LAT/MERC LEFT Radiology Routine Pain 1 Occurrences starting 04/28/2024 until 05/28/2025 [facility] Work Phone: Comment on above: 1 Occurrences starting 04/28/2024 until 05/28/2025 End: 05-09-2025 XR Pelvis and Hip - left AP and Lateral frog XR HIP GENERAL 3V PELV/AP/LAT LEFT Radiology Routine Pain 1 Occurrences starting 04/09/2024 until 05/09/2025 [facility] Work Phone: Comment on above: 1 Occurrences starting 04/09/2024 until 05/09/2025 End: 08-02-2025 XR Pelvis and Hip - right AP and Lateral frog XR HIP GENERAL 3V PELV/AP/LAT RIGHT Radiology Routine Status post hip replacement, right 1 Occurrences starting 07/03/2024 until 08/02/2025 [facility] Work Phone: Comment on above: 1 Occurrences starting 07/03/2024 until 08/02/2025 XR Pelvis and Hip - right AP and Lateral frog XR HIP GENERAL 3V PELV/AP/LAT RIGHT Radiology Routine Status post hip replacement, right 07/13/2024 10:32 AM EDT [facility] Work Phone: [facility] Immunizations Immunization Date Immunization Notes Care Provider Skylar [facility] 12-18-2024 COVID-19 vaccine, ag e 12+ yr (InfluxDB-BIONTCinnaBid [facility]) Mi Nurse Work Phone: [facility] 06-07-2024 influenza, high dose seasonal, preservative-free [facility] REFRIGERATION BRAZER/SOLDERER.DRAW HAND Work Phone: [facility] 06-07-2024 influenza virus vaccine, unspecified formulation Bg Chavarria MD Work Phone: [facility] 07-15-2023 respiratory syncytia l virus (RSV) vaccine, bivalent (ABRYSVO) Luis Manuel Hernandez APRN.DRAW HAND Work Phone: [facility] Work Phone: 07-08-2023 influenza (HD-IIV4) vaccine, age 65+ yr, high dose, quadrivalent, PF (FLUZONE HIGH-DOSE) Luis Manuel Hernandez APRN.DRAW HAND Work Phone: [facility] 07-08-2023 influenza virus vaccine, unspecified formulation Bg Chavarria MD Work Phone: [facility] 06-28-2022 influenza, high-dose , quadrivalent vaccine (FLUZONE HIGH DOSE QUADRIVALENT) Luis Manuel Hernandez APRN.DRAW HAND Work Phone: [facility] Work Phone: 06-28-2022 influenza virus vaccine, unspecified formulation Joe Jiang PA-C Work Phone: [facility] 06-23-2021 influenza, high-dose , quadrivalent vaccine (FLUZONE HIGH DOSE QUADRIVALENT) Bg Chavarria MD Work Phone: [facility] 12-07-2020 Covid (Moderna) Dr. Bg fong MD Work Phone: [facility] 11-10-2020 Covid (Moderna) Dr. Bg fong MD Work Phone: [facility] 07-23-[address] Bg Chavarria MD Work Phone: [facility] 07-23-2020 influenza, high-dose , quadrivalent vaccine (FLUZONE HIGH DOSE QUADRIVALENT) Bg Chavarria MD Work Phone: [facility] 08-14-2019 influenza, high dose seasonal, preservative-free Bg Chavarria MD Work Phone: [facility] Work Phone: 01-05-2019 zoster vaccine recombinant Bg Chavarria MD Work Phone: [facility] 11-03-2018 zoster vaccine recombinant Bg Chavarria MD Work Phone: [facility] 06-26-2018 influenza, high dose seasonal, preservative-free Bg Chavarria MD Work Phone: [facility] Work Phone: 06-26-2018 tetanus toxoid, redu marilee diphtheria toxoid, and acellular pertussis vaccine, adsorbed Bg Chavarria MD Work Phone: [facility] Work Phone: 06-13-2017 influenza, high dose seasonal, preservative-free Bg Chavarria MD Work Phone: [facility] 06-13-2016 influenza, high dose seasonal, preservative-free Bg Chavarria MD Work Phone: [facility] 03-14-2016 pneumococcal polysaccharide vaccine, 23 valent Bg Chavarria MD Work Phone: [facility] 09-13-2015 influenza, high dose seasonal, preservative-free Bg Chavarria MD Work Phone: [facility] 03-14-2015 pneumococcal conjuga te vaccine, 13 valent Bg Chavarria MD Work Phone: [facility] 07-28-2014 influenza, seasonal, injectable Bg Chavarria MD Work Phone: [facility] Work Phone: 09-03-2013 influenza virus vaccine, unspecified formulation Bg Chavarria MD Work Phone: [facility] 07-07-2012 influenza virus vaccine, unspecified formulation Bg Chavarria MD Work Phone: [facility] 07-31-2011 influenza virus vaccine, unspecified formulation Bg Chavarria MD Work Phone: [facility] 07-19-2010 influenza virus vaccine, unspecified formulation Bg Chavarria MD Work Phone: [facility] Work Phone: 09-12-2009 novel [id number], all formulations Bg Chavarria MD Work Phone: [facility] Work Phone: 08-03-2009 zoster vaccine, live Bg york MD Work Phone: [facility] Work Phone: 06-23-2009 influenza virus vaccine, unspecified formulation Bg Chavarria MD Work Phone: [facility] Work Phone: 08-06-2008 influenza virus vaccine, unspecified formulation Bg Chavarria MD Work Phone: [facility] Work Phone: 07-28-2007 influenza virus vaccine, unspecified formulation Bg Chavarria MD Work Phone: [facility] Work Phone: 07-23-2006 influenza virus vaccine, unspecified formulation Bg Chavarria MD Work Phone: [facility] Work Phone: NEGATED: Highlighted row has not occurred!06-29-2023 influenza (HD-IIV4) vaccine, age 65+ yr, high dose, quadrivalent, PF (FLUZONE HIGH-DOSE) [facility] Comment on above: Deferred: Patient Re fused Payers Date Payer Category Payer Private Health Insurance [id number] 2024 Self-pay 2024 Unknown [id number] 2021 Private Health Insurance EHP AET NA EHP PLUS RETIREE OVER 65 / EHP Plus CC Retiree Over 65 [id number] 2021-Present [address] [place], [place] [address] PPO [id number] 2021 Private Health Insurance [id number] 2021 Unknown [id number] 2006 Medicare MEDICARE MEDICAR E A AND B [id number] 2006-Present [phone] [place] [address] Medicare [id number] 2006 Medicare [id number] 2006 Medicare [id number] Unknown [id number] Unknown [id number] Unknown [id number] Unknown [id number] Unknown [id number] Unknown [id number] Social History Date Type Detail Facility Start: 02-28-2018 End: 05-18-2024 Tobacco smoking status NHIS Ex-smoker [facility] Start: 10-24-2021 End: 03-19-2025 Alcohol intake Current drinker of alcohol (finding) [facility] Start: 10-23-2021 End: 09-14-2022 History SDOH Alcohol Frequency 3 [facility] Start: 10-23-2021 End: 06-28-2022 History SDOH Alcohol Std Drinks 1 [facility] Start: 10-23-2021 End: 09-14-2022 History SDOH Social Connections Phone 2 [facility] Start: 10-23-2021 End: 09-14-2022 History SDOH Financial 5 [facility] Start: 06-02-2020 Education 19 [facility] Start: 1940 Sex Assigned At Female C [facility] Start: 12-16-2021 End: 03-29-2022 Exposure to SARS-CoV-2 (event) Unable to assess [facility] Work Phone: Start: 12-30-2021 End: 06-28-2022 Exposure to SARS-CoV-2 (event) Not sure [facility] Start: 03-05-2022 End: 03-15-2022 Exposure to SARS-CoV-2 (event) Yes [facility] End: 09-30-1992 History of tobacco use Current smoker [facility] Start: 02-28-2018 End: 05-18-2024 Tobacco use and exposure Smokeless tobacco non-user [facility] Start: 09-14-2022 History SDOH Alcohol Frequency 4 [facility] Start: 09-13-2022 End: 02-07-2023 History of Social function [facility] Start: 09-13-2022 End: 02-07-2023 Social connection and isolation [facility] Are you now , , , , never or living with a partner? [facility] How often to you hav e a drink containing alcohol? 2-3 time sa week [facility] How many standard drinks containing alcohol do you have on a typical day? 1 or 2 [facility] How often do you hav e 6 or more drinks on 1 occasion? Never [facility] Start: 08-31-2012 How hard is it for y ou to pay for the very basics like food, housing, medical care, and heating Not hard at all [facility] Do you feel stress - tense, restless, nervous, or anxious, or unable to sleep at night because your mind is troubled all the time - these days [OSQ] Not at all [facility] (I/We) worried linnea er (my/our) food would run out before (I/we) got money to buy more. Never true [facility] In the past 12 month s, was there a time when you were not able to pay the mortgage or rent on time? No [facility] Start: 06-23-2020 Gender identity Identifies as female gender (finding) [facility] End: 09-30-1992 History of tobacco use Cigarette Smoker [facility] How hard is it for y ou to pay for the very basics like food, housing, medical care, and heating Not very hard [facility] How often to you hav e a drink containing alcohol? 2-4 times a month [facility] Start: 05-18-2024 Alcohol Comment GLASS OF WINE DAILY/ Intermittent [facility] Start: 02-03-2021 Tobacco Use Tobacco Use [facility] Medical Equipment Procedure Code Equipment Code Equipment Origin al Text Equipment Identifier Dates Trident X3 Polyethylene Insert 0deg 36mm Sz D [id number] Start: 02-01-2021 Trident Solidbac k Acetabular Shell Size 48 Mm D [id number] Start: 02-01-2021 Head V40 36mm 0m m Offset Taper Biolox Delta Femoral Hip - [id number] Start: 02-01-2021 Stem Accolade Ii 4 127d Femoral - [id number] Start: 02-01-2021 Head V40 36mm -2 .5mm Offset Taper Biolox Delta Femoral Hip - [id number] Start: 06-27-2023 Shell Trident Ii 52mm E Tritanium Acetabular 5 Screw Hole Cluster Sterile - [id number] Start: 06-27-2023 Screw Trident Ii 6.5mm 25mm Bone Low Profile Hexagonal Sterile - [id number] Start: 06-27-2023 Insert Acetabula r 36mm 0d E X3 Trident Sterile Latex Free - [id number] Start: 06-27-2023 Stem Femoral 101 mm Size 3 Standard Offset Insignia Collared - [id number] Start: 06-27-2023 Use for b12 injection monthly [id number] Start: 12-19-2023 Comment on above: Use for b12 injectio n monthly Goals Date Patient Goal Desired Activity /State Personal health goal Functional Status Date Assessment Result Facility 10-27-2024 Are you deaf, or do you have serious difficulty hearing No 10/27/2024 1:44 PM Jose Ruvalcaba RN No [facility] 10-27-2024 Are you blind, or do you have serious difficulty seeing, even when wearing glasses No 10/27/2024 1:44 PM Jose Ruvalcaba RN No [facility] 10-27-2024 Do you have serious difficulty walking or climbing stairs No 10/27/2024 1:44 PM Jose Ruvalcaba, ALEX No [facility] 10-27-2024 Do you have difficul ty dressing or bathing No 10/27/2024 1:44 PM Jose Ruvalcaba, ALEX No [facility] 10-27-2024 Because of a physica l, mental, or emotional condition, do you have difficulty doing errands alone such as visiting a physician's office or shopping No 10/27/2024 1:44 PM Jose Ruvalcaba, ALEX No [facility] Mental Status Date Assessment Result Facility 10-27-2024 Because of a physica l, mental, or emotional condition, do you have serious difficulty concentrating, remembering, or making decisions No 10/27/2024 1:44 PM Jose Ruvalcaba RN No [facility] Clinical Notes 02-03-2021 to 05-10-2025 Telephone Encounter - Zuri Payan LPN - 05/10/2025 8:30 AM EDTTelephone Encounter - Zuri Payan LPN - 05/10/2025 8:30 AM Bg Suarez MD - 03/19/2025 10:05 AM EDT Note Date & Type Note Facility 05-10-2025 Telephone encounter Note I spoke to Tania Romero and informed them of Peri's response to monitor results and recommendations. Patient voiced understanding. Zuri Payan LPN [facility] 05-10-2025 Miscellaneous Notes I spoke to Tania Romero and informed them of Peri's response to monitor results and recommendations. Patient voiced understanding. Zuri Payan LPN ----- Message from Oxnaa Darling APRN.MORTGAGE LOAN ASSISTANT sent at 05/07/2025 6:12 PM EDT ----- Please notify patient that of monitor results. Continue with current plan of care for now, she should keep follow up appointment with Dr. Rodriguez, as scheduled. Thank you. Oxana Darling APRN.CNP Please notify patient that of monitor results. Continue with current plan of care for now, she should keep follow up appointment with Dr. Rodriguez, as scheduled. Thank you. Oxana Darling APRN.CNP documented in this encounter [facility] 05-10-2025 Telephone encounter Note ----- Message from Oxana Darling APRN.CNP sent at 05/07/2025 6:12 PM EDT ----- Please notify patient that of monitor results. Continue with current plan of care for now, she should keep follow up appointment with Dr. Rodriguez, as scheduled. Thank you. Oxana Darling APRN.MORTGAGE LOAN ASSISTANT [facility] 05-07-2025 Progress note Formatting of t his note might be different from the original. Please notify patient that of monitor results. Continue with current plan of care for now, she should keep follow up appointment with Dr. Rodriguez, as scheduled. Thank you. Oxana Darling APRN.CNP [facility] 04-29-2025 Telephone encounter Note Pcp reviewed and completed pre op for. This was faxed back to Dr. Andrews [facility] 04-29-2025 Miscellaneous Notes Pcp reviewed and completed pre op for. This was faxed back to Dr. Andrews documented in this encounter [facility] 03-19-2025 Note HNO ID: [id number] Author: BG CHAVARRIA MD Service: ? Author Type: Physician Type: Progress Notes Filed: 04/11/2025 19:14 Note Text: This note was created using [employer]. Subjective Tania Romero is a 84 year old female. SUBJECTIVE: Tania Romero is a 84-year-old female with a history of DM, hypercholesterolemia, and atrial flutter, presenting for a 4-month follow-up visit. Tania reports no acute issues at this time. She denies experiencing any allergies or recent illnesses. She is currently taking Eliquis, meloxicam, and metoprolol. She reports a recent onset of mild stomach pain, which she attributes to the initiation of Eliquis. The pain was transient and has since resolved. She is taking meloxicam 7.5 mg once daily for arthritis pain, particularly in the lower back, and has not attempted to discontinue it recently. She has not tried using Tylenol for pain management. She is also taking metoprolol, half a tablet daily, for heart rate control and denies any recent palpitations. She has noticed increased bruising since starting Eliquis. Tania has a history of atrial flutter and underwent a heart ablation procedure, which she reports was not entirely successful. She is scheduled to wear a heart monitor in mid-March. She denies using Premarin and takes a probiotic as needed for bowel irregularities. She reports occasional swelling in her feet, which she manages with tight socks. She also uses a walking stick to help with balance due to scoliosis and kyphosis. Tania is trying to improve her hydration habits and is considering resuming the use of XyliMelts to help with dry mouth. She is planning a 4-day trip to [place] and is concerned about potential health issues during the trip. She reports taking daily short walks and plans to increase her activity during her trip. 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 Rodriguez on 10/26/2024. Stroke risk 10/27/2024 Type 2 diabetes mellitus, without long-term current use of insulin ([facility]) 01/24/2021 Typical atrial flutter ([facility]) 10/27/2024 PAST SURGICAL HISTORY Procedure Laterality Date ABDOMINAL SURGERY HX CATARACT EXTRACTION HX Right 04/25/2015 Cataract surgery DELIVERY ONLY , low cervical COLONOSCOPY FLX DX W/COLLJ SPEC WHEN PFRMD 07/31/2000 Colonoscopy COLONOSCOPY FLX DX W/COLLJ SPEC WHEN PFRMD 09/18/2006 COLONOSCOPY FLX DX W/COLLJ SPEC WHEN PFRMD 07/01/2012 Colonoscopy COLONOSCOPY FLX DX W/COLLJ SPEC WHEN PFRMD 04/30/2017 Colonoscopy EYE SURGERY HX HERNIA REPAIR HX LIG/TRNSXJ FLP TUBE ABDL/VAG APPR UNI/BI Tubal ligation PAST SURGICAL HISTORY OF 12/31/2002 lap left ing hernia PAST SURGICAL HISTORY OF 10/03/2012 bunionectomy (Dr. Araya) TONSILLECTOMY HX TONSILLECTOMY PRIMARY/SECONDARY Tonsillectomy TOTAL HIP REPLACEMENT Left 02/01/2021 TOTAL HIP REPLACEMENT Right 06/27/2023 Current Outpatient Medications Medication Sig metoprolol succinate ER (TOPROL XL) 25 mg 24 hr tablet Take 0.5 tablets by mouth once daily. apixaban (ELIQUIS) 2.5 mg tab(s) Take 1 tablet by mouth two times a day. alendronate (FOSAMAX) 70 mg tablet Take 1 tablet by mouth one time a week. Take with a full glass of water, on an empty stomach; do NOT lie down for 30minutes. metFORMIN ER (GLUCOPHAGE XR) 500 mg 24 hr tablet Take 1 tablet by mouth daily with breakfast. meloxicam (MOBIC) 7.5 mg tablet Take 1 tablet by mouth once daily. cyanocobalamin 1,000 mcg/mL USE ONE ML INTO THE MUSCLE ONCE MONTHLY Syringe with Needle, Disp, (BD LUER-ISABEL SYRINGE) 3 mL 25 gauge x 1 Use for b12 injection monthly Cholecalciferol, Vitamin D3, 125 mcg (5,000 unit) cap Hold for 1 month then take once weekly calcium carbonate (TUMS ORAL) Take by mouth as needed. Lactase (LACTAID FAST ACT) 9,000 unit chew Uses as needed Lactobacillus acidophilus (PROBIOTIC ORAL) Take by mouth. (Patient not taking: Reported on 02/15/2025) conjugated estrogens (PREMARIN) vaginal cream Use 0.5 g vaginally as needed. for 3 weeks then off for 1 week (Patient not taking: Reported on 02/15/2025) No current facility-administered medications for this visit. Review of Systems Objective BP 128/62 Pulse 80 Resp 16 Wt 50 kg (110 lb 3.7 oz) BMI 21.53 kg/m? Last 5 Encounter Wt Readings: Date: Wt: 03/19/2025 50 kg (110 lb 3.7 oz) 02/25/2025 50.2 kg (110 lb 10.7 oz) 02/15/2025 52 kg (114 lb 9.6 oz) 11/20/2024 51.4 kg (113 lb 5.1 oz) 11/02/2024 51 kg (112 lb 7 oz) No waist measurement recorded Estimated elizabeth (more content not included)... [facility] 03-19-2025 History of Present illness Narrative This note was created using [employer]. Subjective Tania Romero is a 84 year old female. SUBJECTIVE: Tania Romero is a 84-year-old female with a history of DM, hypercholesterolemia, and atrial flutter, presenting for a 4-month follow-up visit. Tania reports no acute issues at this time. She denies experiencing any allergies or recent illnesses. She is currently taking Eliquis, meloxicam, and metoprolol. She reports a recent onset of mild stomach pain, which she attributes to the initiation of Eliquis. The pain was transient and has since resolved. She is taking meloxicam 7.5 mg once daily for arthritis pain, particularly in the lower back, and has not attempted to discontinue it recently. She has not tried using Tylenol for pain management. She is also taking metoprolol, half a tablet daily, for heart rate control and denies any recent palpitations. She has noticed increased bruising since starting Eliquis. Tania has a history of atrial flutter and underwent a heart ablation procedure, which she reports was not entirely successful. She is scheduled to wear a heart monitor in mid-March. She denies using Premarin and takes a probiotic as needed for bowel irregularities. She reports occasional swelling in her feet, which she manages with tight socks. She also uses a walking stick to help with balance due to scoliosis and kyphosis. Taina is trying to improve her hydration habits and is considering resuming the use of XyliMelts to help with dry mouth. She is planning a 4-day trip to [place] and is concerned about potential health issues during the trip. She reports taking daily short walks and plans to increase her activity during her trip. 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 Rodriguez on 10/26/2024. Stroke risk 10/27/2024 Type 2 diabetes mellitus, without long-term current use of insulin ([facility]) 01/24/2021 Typical atrial flutter ([facility]) 10/27/2024 PAST SURGICAL HISTORY Procedure Laterality Date ABDOMINAL SURGERY HX CATARACT EXTRACTION HX Right 04/25/2015 Cataract surgery DELIVERY ONLY , low cervical COLONOSCOPY FLX DX W/COLLJ SPEC WHEN PFRMD 07/31/2000 Colonoscopy COLONOSCOPY FLX DX W/COLLJ SPEC WHEN PFRMD 09/18/2006 COLONOSCOPY FLX DX W/COLLJ SPEC WHEN PFRMD 07/01/2012 Colonoscopy COLONOSCOPY FLX DX W/COLLJ SPEC WHEN PFRMD 04/30/2017 Colonoscopy EYE SURGERY HX HERNIA REPAIR HX LIG/TRNSXJ FLP TUBE ABDL/VAG APPR UNI/BI Tubal ligation PAST SURGICAL HISTORY OF 12/31/2002 lap left ing hernia PAST SURGICAL HISTORY OF 10/03/2012 bunionectomy (Dr. Araya) TONSILLECTOMY HX TONSILLECTOMY PRIMARY/SECONDARY <AGE 13 Tonsillectomy TOTAL HIP REPLACEMENT Left 02/01/2021 TOTAL HIP REPLACEMENT Right 06/27/2023 Current Outpatient Medications Medication Sig metoprolol succinate ER (TOPROL XL) 25 mg 24 hr tablet Take 0.5 tablets by mouth once daily. apixaban (ELIQUIS) 2.5 mg tab(s) Take 1 tablet by mouth two times a day. alendronate (FOSAMAX) 70 mg tablet Take 1 tablet by mouth one time a week. Take with a full glass of water, on an empty stomach; do NOT lie down for 30minutes. metFORMIN ER (GLUCOPHAGE XR) 500 mg 24 hr tablet Take 1 tablet by mouth daily with breakfast. meloxicam (MOBIC) 7.5 mg tablet Take 1 tablet by mouth once daily. cyanocobalamin 1,000 mcg/mL USE ONE ML INTO THE MUSCLE ONCE MONTHLY Syringe with Needle, Disp, (BD LUER-ISABEL SYRINGE) 3 mL 25 gauge x 1 Use for b12 injection monthly Cholecalciferol, Vitamin D3, 125 mcg (5,000 unit) cap Hold for 1 month then take once weekly calcium carbonate (TUMS ORAL) Take by mouth as needed. Lactase (LACTAID FAST ACT) 9,000 unit chew Uses as needed Lactobacillus acidophilus (PROBIOTIC ORAL) Take by mouth. (Patient not taking: Reported on 02/15/2025) conjugated estrogens (PREMARIN) vaginal cream Use 0.5 g vaginally as needed. for 3 weeks then off for 1 week (Patient not taking: Reported on 02/15/2025) No current facility-administered medications for this visit. Review of Systems Objective BP 128/62 Pulse 80 Resp 16 Wt 50 kg (110 lb 3.7 oz) BMI 21.53 kg/m Last 5 Encounter Wt Readings: Date: Wt: 03/19/2025 50 kg (110 lb 3.7 oz) 02/25/2025 50.2 kg (110 lb 10.7 oz) 02/15/2025 52 kg (114 lb 9.6 oz) 11/20/2024 51.4 kg (113 lb 5.1 oz) 11/02/2024 51 kg (112 lb 7 oz) No waist measurement recorded Estimated body mass index is 21.53 kg/m as calculated from the following: Height as of 10/26/24: 152.4 cm (5'). Weight as of this encounter: 50 kg (110 lb 3.7 oz). Last 5 Encounter BP Readings: Date: BP: 03/19/2025 128/62 02/25/2025 127/77 02/15/2025 126/63 11/20/2024 118/80 11/02/2024 129/72 Physical Exam Constitutional: Appearance: Normal appearance. HENT: Head: Normocephalic. Eyes: Conjunctiva/sclera: Conjunctivae normal. Cardiovascular: Rate and Rhythm: Normal rate and regular rhythm. Heart sounds: Normal heart sounds. Pulmonary: Effort: Pulmonary effort is normal. Breath sounds: Normal breath sounds. Musculoskeletal: Right lower leg: No edema. Left lower leg: No edema. Skin: General: Skin is warm and dry. Neurological: General: No focal deficit present. Mental Status: She is alert and oriented to person, place, and time. Psychiatric: Mood and Affect: Mood normal. Behavior: Behavior normal. Thought Content: Thought content normal. Judgment: Judgment normal. Latest Ref Rng 11/18/2023 03/11/2024 07/06/2024 07/23/2024 03/15/2025 WBC 3.70 - 11.00 k/uL 8.77 8.98 8.16 RBC 3.90 - 5.20 m/uL 4.28 4.32 4.35 Hemoglobin 11.5 - 15.5 g/dL 12.2 12.4 12.5 Hematocrit 36.0 - 46.0 % 38.1 38.9 38.6 MCV 80.0 - 100.0 fL 89.0 90.0 88.7 MCH 26.0 - 34.0 pg 28.5 28.7 28.7 MCHC 30.5 - 36.0 g/dL 32.0 31.9 32.4 RDW-CV 11.5 - 15.0 % 13.8 13.5 13.4 Platelet Count 150 - 400 k/uL 292 306 286 MPV 9.0 - 12.7 fL 9.7 9.9 9.8 Neut% % 60.8 Abs Neut (ANC) 1.45 - 7.50 k/uL 5.45 Lymph% % 27.7 Abs Lymph 1.00 - 4.00 k/uL 2.49 [place]% % 9.0 Abs [place] <0.87 k/uL 0.81 Eosin% % 1.9 Abs Eosin <0.46 k/uL 0.17 Baso% % 0.4 Abs Baso <0.11 k/uL 0.04 Immature Gran % % 0.2 IMMATURE GRANS (ABS) <0.10 k/uL <0.03 NRBC /100 WBC 0.0 Absolute nRBC <0.01 k/uL <0.01 <0.01 <0.01 DTYPE Auto Protein, Total 6.3 - 8.0 g/dL 6.5 6.8 6.9 Albumin 3.9 - 4.9 g/dL 4.2 4.2 4.3 Calcium 8.5 - 10.2 mg/dL 9.8 9.4 9.7 Bilirubin, Total 0.2 - 1.3 mg/dL 0.5 0.4 0.3 Alkaline Phosphatase 34 - 123 U/L 63 67 71 AST 13 - 35 U/L 26 19 21 ALT 7 - 38 U/L 12 14 11 Glucose 74 - 99 mg/dL 101 (H) 115 (H) 116 (H) BUN 7 - 21 mg/dL 24 (H) 31 (H) 35 (H) Creatinine 0.58 - 0.96 mg/dL 0.93 0.96 1.03 (H) Sodium 136 - 144 mmol/L 140 143 141 Potassium 3.7 - 5.1 mmol/L 4.3 4.6 4.4 Chloride 98 - 107 mmol/L 101 104 102 CO2 22 - 30 mmol/L 28 28 26 Anion Gap 8 - 15 mmol/L 11 11 13 eGFR >=60 mL/min/1.73m 61 59 (L) 54 (L) Cholesterol, Total <200 mg/dL 218 (H) 222 (H) Triglyceride <150 mg/dL 73 78 HDL Cholesterol >39 mg/dL 74 67 Non HDL Cholesterol <130 mg/dL 144 (H) 155 (H) Fasting Time hrs 11 12 VLDL Cholesterol <30 mg/dL 15 14 TC:HDL Ratio <5.10 2.95 3.31 LDL Cholesterol, Calculated <100 mg/dL 129 (H) 141 (H) LDL:HDL Ratio <2.54 1.74 2.10 Creatinine, Ur Random (UCRR) 20.0 - 300.0 mg/dL 42.3 68.8 Albumin, Urine Random mg/L <12.0 <12.0 Albumin/Creat Ratio <30 mg/g <28 <17 Hemoglobin A1C 4.3 - 5.6 % 6.5 (H) 6.5 (H) 6.7 (H) Estimated Average Glucose mg/dL 140 140 146 Hemoglobin A1C (POCT) 4.3 - 5.6 % 6.6 ! Vitamin D 25 Hydroxy 31.0 - 80.0 ng/mL 53.4 46.4 TSH 0.270 - 4.200 mIU/L 2.300 Vitamin B12 232 - 1,245 pg/mL 511 Legend: ! Abnormal (H) High (L) Low Assessment and Plan # Type 2 diabetes mellitus with other specified complication, without long-term current use of insulin (HCC) (E11.69) - Hemoglobin A1c is 6.7%, indicating well-controlled diabetes. - Continue current management with metformin. - Emphasized the importance of maintaining hydration to support kidney function. - Encouraged regular exercise and a balanced diet to maintain glycemic control. - Follow-up in 4 months with repeat HbA1c and comprehensive metabolic panel. # Paroxysmal SVT (supraventricular tachycardia) ([facility]) (I47.10) - Currently managed with metoprolol for heart rate control. - No recent episodes of palpitations reported. - Continue metoprolol as prescribed. - Patient is on Eliquis for stroke prevention due to atrial flutter episodes. - Discussed potential side effects of Eliquis, including increased bruising and GI upset. - Patient has a follow-up with cardiology and will be wearing a heart monitor in mid-March. # Status post hip replacement, right (Z96.641) # Status post left hip replacement (Z96.642) - Surgical history updated to reflect one left and one right hip replacement. - No current issues reported with hip replacements. # Chronic bilateral low back pain without sciatica (M54.50) - Managed with meloxicam 7.5 mg daily. - Discussed risks of NSAID use, especially in combination with Eliquis, including potential for GI bleeding and ulcers. - Advised trial of acetaminophen as an alternative to meloxicam to minimize bleeding risk. - Patient to monitor for any signs of increased pain or discomfort. # Other idiopathic scoliosis, thoracolumbar region (M41.25) - Contributing to chronic low back pain. - Patient uses a walking stick for support and to maintain an upright posture. - No new interventions at this time. Bg Chavarria MD Recording using [employer] software for draft documentation of the visit was discussed with the patient/authorized patient account representative; all questions welcomed and answered. Patient/authorized patient account representative agreed to proceed documented in this encounter [facility] 03-18-2025 History of Present illness Narrative Radiology Service Progress Note PATIENT NAME: Tania Romero DATE OF SERVICE: March 18, 2025 TIME: 12:24 PM PATIENT IDENTITY VERIFICATION COMPLETED USING TWO (2) IDENTIFIERS: Name and Date of confirmed by patient verbally. FALL SCREENING: Has the patient had 2 falls in the last year or 1 fall with injury or currently using an Ambulatory Assistive Device (Walker, Cane, Wheelchair, Crutches, etc.)? No PATIENT GENDER DATA: Assigned female at . status: : No status: NO. PATIENT RELEVANT IMPLANT DATA REVIEWED: Not Applicable PATIENT PRESENTS WITH AN IMPLANTABLE OR ATTACHED DIETARY AIDE TEACHER: No RADIOLOGY DEPARTMENT: Bone Density PERIPHERAL IV DATA: Not applicable SIGNED BY: RT Lucita(R) March 18, 2025 12:24 PM documented in this encounter [facility] 03-18-2025 Note HNO ID: [id number] Author: DAV HAYDEN RT(R) Service: ? Author Type: Technologist Type: Progress Notes Filed: 03/18/2025 12:42 Note Text: Radiology Service Progress Note PATIENT NAME: Tania Romero DATE OF SERVICE: March 18, 2025 TIME: 12:24 PM PATIENT IDENTITY VERIFICATION COMPLETED USING TWO (2) IDENTIFIERS: Name and Date of confirmed by patient verbally. FALL SCREENING: Has the patient had 2 falls in the last year or 1 fall with injury or currently using an Ambulatory Assistive Device (Walker, Cane, Wheelchair, Crutches, etc.)? No PATIENT GENDER DATA: Assigned female at . status: : No status: NO. PATIENT RELEVANT IMPLANT DATA REVIEWED: Not Applicable PATIENT PRESENTS WITH AN IMPLANTABLE OR ATTACHED DIETARY AIDE TEACHER: No RADIOLOGY DEPARTMENT: Bone Density PERIPHERAL IV DATA: Not applicable SIGNED BY: Dav Hayden, (R) March 18, 2025 12:24 PM [facility] 03-15-2025 Telephone encounter Note Patient's request for medication is as follows: Requested Prescriptions Pending Prescriptions Disp Refills metoprolol succinate ER (TOPROL XL) 25 mg 24 hr tablet 45 tablet 3 Sig: Take 0.5 tablets by mouth once daily. Patient last seen on 02/15/2025. Prescription(s) as above. Please process accordingly. Tori Luz LPN [facility] 03-15-2025 Miscellaneous Notes Patient's request for medication is as follows: Requested Prescriptions Pending Prescriptions Disp Refills metoprolol succinate ER (TOPROL XL) 25 mg 24 hr tablet 45 tablet 3 Sig: Take 0.5 tablets by mouth once daily. Patient last seen on 02/15/2025. Prescription(s) as above. Please process accordingly. Tori Luz LPN documented in this encounter [facility] 02-25-2025 Instructions Madeleine Jung, CARMEL.MORTGAGE LOAN ASSISTANT - 02/25/2025 2:16 PM EDT 1. Skin erythema (L53.9) 2. Insect bite of right thigh, initial encounter (S70.361A) - Erythema and induration present at the site of the bite on the right thigh; no retained foreign bodies observed. - Differential diagnosis includes tick or spider bite; however, no evidence of Lyme disease based on clinical presentation and absence of systemic symptoms such as rash, fever, chills, or headaches. - Advised continued application of Neosporin and gentle massage to the area several times a day to promote healing and reduce scar tissue formation. - Reassured patient that the erythema is expected to resolve over time and does not indicate Lyme disease. - Continue applying Neosporin to the bite area as you have been doing. - Gently massage the site a few times each day when you apply the Neosporin. - Expect the area to take several more weeks to fully heal; keep monitoring for gradual improvement. documented in this encounter [facility] 02-25-2025 Note HNO ID: [id number] Author: MADELEINE JUNG APRN.MORTGAGE LOAN ASSISTANT Service: ? Author Type: Nurse Practitioner Type: Progress Notes Filed: 02/25/2025 14:16 Note Text: [facility] Subjective Tania Romero is a 84 year old female. Patient presents with: Trauma: Possible tick bite, on R upper thigh, under buttocks, no pain, un open, redness, round, states she possibly pulled it out of area x 1 month Trauma Pertinent negatives include no arthralgias, chills, fever, headaches, joint swelling, myalgias or rash. Suspected Tick Bite: - Suspected tick bite on the thigh approximately 3 weeks ago. - Lesion was initially larger, pink, and reddish; now smaller with a hard core feeling. - Unsure if it was a tick; describes it as beige with thin black parts. - No associated pain, fever, chills, headaches, or unusual body aches. - Applying Neosporin and massaging the area daily. Review of Systems Constitutional: Negative for chills and fever. Musculoskeletal: Negative for arthralgias, joint swelling and myalgias. Skin: Positive for color change. Negative for rash. Neurological: Negative for headaches. Constitutional: (-) fever, (-) chills Head: (-) headaches Skin: (-) pain, (+) localized redness at thigh lesion Objective BP 127/77 Pulse 80 Temp 37 ?C (98.6 ?F) Resp 20 Wt 50.2 kg (110 lb 10.7 oz) SpO2 96% BMI 21.61 kg/m? 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 Rodriguez on 10/26/2024. - Stroke risk 10/27/2024 - Type 2 diabetes mellitus, without long-term current use of insulin (HCC) 01/24/2021 - Typical atrial flutter (HCC) 10/27/2024 PAST SURGICAL HISTORY Procedure Laterality Date - ABDOMINAL SURGERY HX - CATARACT EXTRACTION HX Right 04/25/2015 Cataract surgery - DELIVERY ONLY , low cervical - COLONOSCOPY FLX DX W/COLLJ SPEC WHEN PFRMD 07/31/2000 Colonoscopy - COLONOSCOPY FLX DX W/COLLJ SPEC WHEN PFRMD 09/18/2006 - COLONOSCOPY FLX DX W/COLLJ SPEC WHEN PFRMD 07/01/2012 Colonoscopy - COLONOSCOPY FLX DX W/COLLJ SPEC WHEN PFRMD 04/30/2017 Colonoscopy - EYE SURGERY HX - HERNIA REPAIR HX - JOINT REPLACEMENT HX - LIG/TRNSXJ FLP TUBE ABDL/VAG APPR UNI/BI Tubal ligation - PAST SURGICAL HISTORY OF 12/31/2002 lap left ing hernia - PAST SURGICAL HISTORY OF 10/03/2012 bunionectomy (Dr. Araya) - TONSILLECTOMY HX - TONSILLECTOMY PRIMARY/SECONDARY Tonsillectomy - TOTAL HIP REPLACEMENT Left 02/01/2021 - TOTAL HIP REPLACEMENT Right 06/27/2023 ALLERGIES Amoxicillin, Clindamycin, Compazine [Prochlorperazine Edisylate], Penicillins, and Prochlorperazine MEDICATIONS - apixaban (ELIQUIS) 2.5 mg tab(s) Take 1 tablet by mouth two times a day. - alendronate (FOSAMAX) 70 mg tablet Take 1 tablet by mouth one time a week. Take with a full glass of water, on an empty stomach; do NOT lie down for 30minutes. - metFORMIN ER (GLUCOPHAGE XR) 500 mg 24 hr tablet Take 1 tablet by mouth daily with breakfast. - meloxicam (MOBIC) 7.5 mg tablet Take 1 tablet by mouth once daily. - metoprolol succinate ER (TOPROL XL) 25 mg 24 hr tablet Take 0.5 tablets by mouth once daily. - cyanocobalamin 1,000 mcg/mL USE ONE ML INTO THE MUSCLE ONCE MONTHLY - Syringe with Needle, Disp, (BD LUER-ISABEL SYRINGE) 3 mL 25 gauge x 1 Use for b12 injection monthly - Cholecalciferol, Vitamin D3, 125 mcg (5,000 unit) cap Hold for 1 month then take once weekly - calcium carbonate (TUMS ORAL) Take by mouth as needed. - Lactase (LACTAID FAST ACT) 9,000 unit chew Uses as needed - Lactobacillus acidophilus (PROBIOTIC ORAL) Take by mouth. (Patient not taking: Reported on 02/15/2025) - conjugated estrogens (PREMARIN) vaginal cream Use 0.5 g vaginally as needed. for 3 weeks then off for 1 week (Patient not taking: Reported on 02/15/2025) FAMILY HISTORY Problem Relation Age of Onset - Cancer Father COLON - Osteoporosis Mother - other (low thyroid) Mother Social History Tobacco Use - Smoking status: Former Current packs/day: 0.00 Types: Cigarettes Quit date: 1992 Years since quittin.4 - Smokeless tobacco: Never Vaping Use - Vaping status: Never Used Substance Use Topics - Alcohol use: Yes Comment: GLASS OF WINE DAILY/ Intermittent - Drug use: Not Currently Physical Exam Vitals and nursing note reviewed. Constitutional: General: She is not in acute distress. Appearance: Normal appearance. She is not ill-appearing. Skin: General: Skin is warm and dry. Capillary Refill: Capillary refill takes less than 2 seconds. Findings: Erythema present. No rash. Neurological: Mental Status: (more content not included)... [facility] 02-25-2025 History of Present illness Narrative Images from the original note were not included. [facility] Subjective Tania Romero is a 84 year old female. Patient presents with: Trauma: Possible tick bite, on R upper thigh, under buttocks, no pain, un open, redness, round, states she possibly pulled it out of area x 1 month Trauma Pertinent negatives include no arthralgias, chills, fever, headaches, joint swelling, myalgias or rash. Suspected Tick Bite: - Suspected tick bite on the thigh approximately 3 weeks ago. - Lesion was initially larger, pink, and reddish; now smaller with a hard core feeling. - Unsure if it was a tick; describes it as beige with thin black parts. - No associated pain, fever, chills, headaches, or unusual body aches. - Applying Neosporin and massaging the area daily. Review of Systems Constitutional: Negative for chills and fever. Musculoskeletal: Negative for arthralgias, joint swelling and myalgias. Skin: Positive for color change. Negative for rash. Neurological: Negative for headaches. 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 Rodriguez on 10/26/2024. Stroke risk 10/27/2024 Type 2 diabetes mellitus, without long-term current use of insulin ([facility]) 01/24/2021 Typical atrial flutter ([facility]) 10/27/2024 PAST SURGICAL HISTORY Procedure Laterality Date ABDOMINAL SURGERY HX CATARACT EXTRACTION HX Right 04/25/2015 Cataract surgery DELIVERY ONLY , low cervical COLONOSCOPY FLX DX W/COLLJ SPEC WHEN PFRMD 07/31/2000 Colonoscopy COLONOSCOPY FLX DX W/COLLJ SPEC WHEN PFRMD 09/18/2006 COLONOSCOPY FLX DX W/COLLJ SPEC WHEN PFRMD 07/01/2012 Colonoscopy COLONOSCOPY FLX DX W/COLLJ SPEC WHEN PFRMD 04/30/2017 Colonoscopy EYE SURGERY HX HERNIA REPAIR HX JOINT REPLACEMENT HX LIG/TRNSXJ FLP TUBE ABDL/VAG APPR UNI/BI Tubal ligation PAST SURGICAL HISTORY OF 12/31/2002 lap left ing hernia PAST SURGICAL HISTORY OF 10/03/2012 bunionectomy (Dr. Araya) TONSILLECTOMY HX TONSILLECTOMY PRIMARY/SECONDARY <AGE 13 Tonsillectomy TOTAL HIP REPLACEMENT Left 02/01/2021 TOTAL HIP REPLACEMENT Right 06/27/2023 ALLERGIES Amoxicillin, Clindamycin, Compazine [Prochlorperazine Edisylate], Penicillins, and Prochlorperazine MEDICATIONS apixaban (ELIQUIS) 2.5 mg tab(s) Take 1 tablet by mouth two times a day. alendronate (FOSAMAX) 70 mg tablet Take 1 tablet by mouth one time a week. Take with a full glass of water, on an empty stomach; do NOT lie down for 30minutes. metFORMIN ER (GLUCOPHAGE XR) 500 mg 24 hr tablet Take 1 tablet by mouth daily with breakfast. meloxicam (MOBIC) 7.5 mg tablet Take 1 tablet by mouth once daily. metoprolol succinate ER (TOPROL XL) 25 mg 24 hr tablet Take 0.5 tablets by mouth once daily. cyanocobalamin 1,000 mcg/mL USE ONE ML INTO THE MUSCLE ONCE MONTHLY Syringe with Needle, Disp, (BD LUER-ISABEL SYRINGE) 3 mL 25 gauge x 1 Use for b12 injection monthly Cholecalciferol, Vitamin D3, 125 mcg (5,000 unit) cap Hold for 1 month then take once weekly calcium carbonate (TUMS ORAL) Take by mouth as needed. Lactase (LACTAID FAST ACT) 9,000 unit chew Uses as needed Lactobacillus acidophilus (PROBIOTIC ORAL) Take by mouth. (Patient not taking: Reported on 02/15/2025) conjugated estrogens (PREMARIN) vaginal cream Use 0.5 g vaginally as needed. for 3 weeks then off for 1 week (Patient not taking: Reported on 02/15/2025) FAMILY HISTORY Problem Relation Age of Onset Cancer Father COLON Osteoporosis Mother other (low thyroid) Mother Social History Tobacco Use Smoking status: Former Current packs/day: 0.00 Types: Cigarettes Quit date: 1992 Years since quittin.4 Smokeless tobacco: Never Vaping Use Vaping status: Never Used Substance Use Topics Alcohol use: Yes Comment: GLASS OF WINE DAILY/ Intermittent Drug use: Not Currently Physical Exam Vitals and nursing note reviewed. Constitutional: General: She is not in acute distress. Appearance: Normal appearance. She is not ill-appearing. Skin: General: Skin is warm and dry. Capillary Refill: Capillary refill takes less than 2 seconds. Findings: Erythema present. No rash. Neurological: Mental Status: She is alert. General: No acute distress. Skin: Erythematous lesion on thigh, no retained foreign bodies visualized. {1. Skin erythema (L53.9) 2. Insect bite of right thigh, initial encounter (S70.350T) - Erythema and induration present at the site of the bite on the right thigh; no retained foreign bodies observed. - Differential diagnosis includes tick or spider bite; however, no evidence of Lyme disease based on clinical presentation and absence of systemic symptoms such as rash, fever, chills, or headaches. - Advised continued application of Neosporin and gentle massage to the area several times a day to promote healing and reduce scar tissue formation. - Reassured patient that the erythema is expected to resolve over time and does not indicate Lyme disease. - Follow-up with your PCP in 3-5 days if symptoms have not improved or sooner if symptoms worsen - Discussed red flags and need for immediate medical evaluation if any occur. - Discussed supportive care treatment with fluids, rest and analgesia. - Discussed expected course of illness Madeleine Jung APRN.MORTGAGE LOAN ASSISTANT and Recording using [employer] software for draft documentation of the visit was discussed with the patient/authorized patient account representative; all questions welcomed and answered. Patient/authorized patient account representative agreed to proceed Disposition The patient was discharged. OTC Medications were advised: Procedures documented in this encounter [facility] 02-15-2025 Instructions Oxana Darling APRN.MORTGAGE LOAN ASSISTANT - 02/15/2025 4:32 PM EDT We discussed your episodes of lightheadedness, dizziness, and palpitations: - Your recent 30-day event monitor showed sinus rhythm with episodes of supraventricular tachycardia (SVT) with heart rates up to 180 beats per minute. - You reported continued intermittent episodes of palpitations and presyncopal symptoms, which may indicate ongoing SVT episodes. - You should restart Eliquis (apixaban) 2.5 mg twice daily for stroke prevention. Please check with your insurance to determine the most affordable option for a blood thinner. Alternatives include Xarelto (rivaroxaban), Pradaxa (dabigatran), or warfarin (Coumadin). Let us know your preference and the pharmacy where you would like the prescription sent. - If you have any bleeding issues (e.g., blood in the stool, blood in the urine, or nosebleeds) or falls, please notify us immediately. - You may use the Valsalva maneuver (bearing down as if having a bowel movement) to help terminate SVT episodes if they occur. We discussed monitoring your heart rhythm: - A 14-day event monitor has been ordered. Please wait until mid-March to apply the monitor. You can apply it yourself at home, as you have done previously. Instructions will be included with the monitor. - Once the monitoring period is complete, return the device as instructed. We discussed follow-up: - Please schedule a follow-up appointment in approximately 4 months to review your symptoms and the results of the event monitor. Additional instructions: - If you experience chest pain, shortness of breath, or worsening symptoms, please seek immediate medical attention. - Let us know if you have any questions or concerns via [employer] or by calling the office. documented in this encounter [facility] 02-15-2025 History of Present illness Narrative Images from the original note were not included. [facility] General Cardiology Electrophysiology PRIMARY CARE PHYSICIAN: Bg Chavarria [address] [place] [address] CHIEF COMPLAINT: Cardiovascular medicine follow-up for arrhythmia. HISTORY OF PRESENT ILLNESS: Ms. Romero is a 84 year old female who presents today for follow-up regarding arrhythmia. Patient with a past medical history significant for vitamin D deficiency/osteopenia, hyperlipidemia, former smoker, type 2 diabetes, multiple sclerosis, and expressive aphasia. She established care with Dr. Rodriguez at the end of August 2024. She was evaluated at an outside cardiology clinic for episodes of lightheadedness and dizziness. She reported frequent episodes of pre-syncope without syncope; symptoms would subside when she lay down. Prior to her clinic visit, she had another pre-syncopal episode in a grocery store associated with chest pain and was evaluated by EMS, revealing a normal EKG and symptom resolution. She was advised to go to the ER if any recurrence. She subsequently had another episode of near syncope at a [facility] but did not seek medical help. She is physically active and denies any chest pain, shortness of breath with exertion, orthopnea, PND, or lower extremity edema. She does have joint-related issues including her back, hip, and knees. A 14-day monitor was ordered, which showed multiple runs of SVT. She was started on metoprolol 25 milligrams once daily. After starting metoprolol, she reported different symptoms of lightheadedness and dizziness; her (who is a retired family physician) felt that the symptoms might have been secondary to bradycardia. She decreased her metoprolol to half a tablet once daily and reported resolution of those symptoms. She continued to have intermittent episodes of palpitations and presyncopal symptoms indicating SVT episodes. 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 Rodriguez on October 26, 2024. She was discharged on Eliquis, recommended to continue for 30 days and stop, metoprolol succinate 12.5 milligrams daily was continued post-ablation. Diagnostic Results: - 30-day event monitor (December 01-December 30, 2024): - Sinus rhythm with episodes of SVT, heart rates up to 180 BPM. - Heart rates in the 70s-90s when in sinus rhythm. - 14-day monitor: - Multiple runs of SVT. - Longest run about 34 minutes with an average heart rate of 131 BPM. - Fastest event at a rate of 214 BPM. Interval History: The patient is an 84-year-old female with a history of AVNRT and typical atrial flutter, status post ablation, presenting for follow-up. She underwent ablation of the slow pathway for AVNRT and CTI ablation for new-onset typical atrial flutter with Dr. Rodriguez on 10/26/2024. She was discharged on Eliquis, recommended to continue for 30 days, and also to continue metoprolol succinate 12.5 mg daily. A 30-day event monitor worn from 12/01/2024 to 12/30/2024 showed sinus rhythm with episodes of SVT, with heart rates up to 180 bpm. When in sinus rhythm, her heart rates were in the 70s-90s. Recently, she has been experiencing episodes of presyncope and palpitations, with the most recent episodes occurring late last week, including two episodes in one day at a grocery store. These episodes last for seconds, and she describes feeling like the blood is rushing from her head and starting to feel like she is going to pass out. She notes that the Valsalva maneuver has been effective in terminating some episodes. She denies any episodes of syncope. She has not had any falls recently. She reports that she had started taking an oral medication at night, Xylimelts, which she believes may interact with metoprolol. She reduced the dosage from two to one per night and has since stopped taking it for a couple of days to see if it affects her symptoms. She has not had any episodes since stopping the medication, but also reports it has only been a few days. She denies any chest pain, dyspnea on exertion, orthopnea, PND, or lower extr, emity edema. She is physically active but has joint-related issues, including her back, hip, and knees, she ambulates with a 1 point cane. She denies any recent illness, fevers, chills, coughing, or wheezing. She has not experienced any bleeding problems while on Eliquis, such as hematuria, hematochezia, or epistaxis. Reviewed the monitor results with Dr. Rodriguez, recommend restarting oral anticoagulation due to rhythm possibly atrial flutter, and repeat a monitor in a couple of months. She expresses concern about the cost of Eliquis and is considering other anticoagulant options. She plans to contact her insurance company or pharmacy to determine coverage for anticoagulants. 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 Rodriguez on 10/26/2024. Stroke risk 10/27/2024 Type 2 diabetes mellitus, without long-term current use of insulin ([facility]) 01/24/2021 Typical atrial flutter ([facility]) 10/27/2024 PAST SURGICAL HISTORY Procedure Laterality Date ABDOMINAL SURGERY HX CATARACT EXTRACTION HX Right 04/25/2015 Cataract surgery DELIVERY ONLY , low cervical COLONOSCOPY FLX DX W/COLLJ SPEC WHEN PFRMD 07/31/2000 Colonoscopy COLONOSCOPY FLX DX W/COLLJ SPEC WHEN PFRMD 09/18/2006 COLONOSCOPY FLX DX W/COLLJ SPEC WHEN PFRMD 07/01/2012 Colonoscopy COLONOSCOPY FLX DX W/COLLJ SPEC WHEN PFRMD 04/30/2017 Colonoscopy EYE SURGERY HX HERNIA REPAIR HX JOINT REPLACEMENT HX LIG/TRNSXJ FLP TUBE ABDL/VAG APPR UNI/BI Tubal ligation PAST SURGICAL HISTORY OF 12/31/2002 lap left ing hernia PAST SURGICAL HISTORY OF 10/03/2012 bunionectomy (Dr. Araya) TONSILLECTOMY HX TONSILLECTOMY PRIMARY/SECONDARY <AGE 13 Tonsillectomy TOTAL HIP REPLACEMENT Left 02/01/2021 TOTAL HIP REPLACEMENT Right 06/27/2023 Social History Tobacco Use Smoking status: Former Current packs/day: 0.00 Types: Cigarettes Quit date: 1992 Years since quittin.4 Smokeless tobacco: Never Vaping Use Vaping status: Never Used Substance Use Topics Alcohol use: Yes Comment: GLASS OF WINE DAILY/ Intermittent Drug use: Not Currently Family History Problem Relation Age of Onset Cancer Father COLON Osteoporosis Mother other (low thyroid) Mother ALLERGIES Allergen Reactions Amoxicillin Rash Clindamycin Contraindication-Medical Surgical C diff Compazine [Prochlor* Intolerance Penicillins Rash, Intolerance Rash after 4 days of antibiotic . Prochlorperazine Dystonia MEDICATIONS: alendronate (FOSAMAX) 70 mg tablet Take 1 tablet by mouth one time a week. Take with a full glass of water, on an empty stomach; do NOT lie down for 30minutes. metFORMIN ER (GLUCOPHAGE XR) 500 mg 24 hr tablet Take 1 tablet by mouth daily with breakfast. meloxicam (MOBIC) 7.5 mg tablet Take 1 tablet by mouth once daily. metoprolol succinate ER (TOPROL XL) 25 mg 24 hr tablet Take 0.5 tablets by mouth once daily. cyanocobalamin 1,000 mcg/mL USE ONE ML INTO THE MUSCLE ONCE MONTHLY Syringe with Needle, Disp, (BD LUER-ISABEL SYRINGE) 3 mL 25 gauge x 1 Use for b12 injection monthly Cholecalciferol, Vitamin D3, 125 mcg (5,000 unit) cap Hold for 1 month then take once weekly calcium carbonate (TUMS ORAL) Take by mouth as needed. Lactase (LACTAID FAST ACT) 9,000 unit chew Uses as needed apixaban (ELIQUIS) 2.5 mg tab(s) Take 2.5 mg by mouth two times a day. Lactobacillus acidophilus (PROBIOTIC ORAL) Take by mouth. (Patient not taking: Reported on 02/15/2025) conjugated estrogens (PREMARIN) vaginal cream Use 0.5 g vaginally as needed. for 3 weeks then off for 1 week (Patient not taking: Reported on 02/15/2025) REVIEW OF SYSTEMS: Review of Systems Constitutional: Negative for chills, diaphoresis and fever. HENT: Negative for nosebleeds. Respiratory: Negative for cough, hemoptysis, sputum production, shortness of breath and wheezing. Cardiovascular: Positive for leg swelling (mild). Negative for chest pain, palpitations, orthopnea and PND. Gastrointestinal: Negative for blood in stool. Genitourinary: Negative for hematuria. Musculoskeletal: Negative for falls and myalgias. Neurological: Negative for dizziness, loss of consciousness and headaches. Lightheaded with tachycardia and near syncope Endo/Heme/Allergies: Does not bruise/bleed easily. PHYSICAL EXAMINATION: BP 126/63 Pulse 69 Wt 114 lb 9.6 oz (52.0kg) SpO2 95% Physical Exam Vitals and nursing note reviewed. Constitutional: General: She is not in acute distress. Appearance: She is not diaphoretic. HENT: Head: Normocephalic and atraumatic. Neck: Vascular: No JVD. Cardiovascular: Rate and Rhythm: Normal rate and regular rhythm. Pulses: Radial pulses are 2+ on the right side and 2+ on the left side. Dorsalis pedis pulses are 2+ on the right side and 2+ on the left side. Heart sounds: S1 normal and S2 normal. No murmur heard. No gallop. Pulmonary: Effort: Pulmonary effort is normal. No respiratory distress. Breath sounds: Normal breath sounds. No wheezing or rales. Chest: Chest wall: No tenderness. Musculoskeletal: General: Normal range of motion. Cervical back: Neck supple. Right lower leg: Edema (trace) present. Left lower leg: Edema (trace) present. Skin: General: Skin is warm and dry. Nails: There is no clubbing. Neurological: Mental Status: She is alert and oriented to person, place, and time. Psychiatric: Mood and Affect: Mood and affect normal. Behavior: Behavior normal. CARDIOVASCULAR MEDICINE TESTING: Echocardiogram:09/08/2024 -The left ventriclar ejection fraction is 65%. - Mild mitral annular calcification. - Mid (1+) mitral valve insufficiency. - Mild tricuspid valve insufficiency. - Mild-moderate (1-2+) eccentric aortic valve insufficiency. I have personally reviewed the Electrocardiogram: 02/15/2025 -normal sinus rhythm, rightward axis, 65 bpm, VT 130 ms, QRS 68 ms, QT/QTc 392/407 ms. PLAN AND RECOMMENDATIONS: 1. Paroxysmal SVT (supraventricular tachycardia) (HCC) (I47.10) 2. Typical atrial flutter (HCC) (I48.3) Patient continues to experience episodes of lightheadedness and presyncope. Recent 30-day event monitor showed sinus rhythm with episodes of SVT, possibly atrial flutter, heart rates up to 180 BPM. When in sinus rhythm, heart rates were in the 70s-90s BPM. - Restart Eliquis 2.5 mg BID for stroke prevention. - Ordered a 14-day event monitor to be worn in mid-March. - Follow-up in 4 months to reassess. 3. S/P catheter ablation of slow pathway (Z98.890) 4. S/P ablation of atrial flutter (Z98.890) Underwent ablation of slow pathway for AVNRT and CTI ablation for atrial flutter on 10/26/2024. Discharged on Eliquis and metoprolol succinate 12.5 mg daily. - Continue metoprolol succinate 12.5 mg daily. - Restart Eliquis 2.5 mg twice daily. 5. At risk for stroke (Z91.89) Increased risk due to episodes of possibly atrial flutter. - Restart Eliquis 2.5 mg BID for stroke prevention. - Patient to check with insurance for coverage of Eliquis, Xarelto, or Pradaxa. CHADS2-Vasc Score Breakdown 4 Total Score 1 Female 2 Age >= 75 years old 1 History of diabetes mellitus Return in about 4 months (around 06/18/2025) for Dr. Rodriguez or [facility]. Recording using Purplu software for draft documentation of the visit was discussed with the patient/authorized patient account representative; all questions welcomed and answered. Patient/authorized patient account representative agreed to proceed Oxana Darling APRN.MORTGAGE LOAN ASSISTANT Medical Decision Making: Problems: Moderate: 1+ chronic illnesses with change Data: Unique source(s) for external note(s) reviewed: 3+ Unique test result(s) reviewed: 2 Unique test(s) ordered: 1 Risk: Low: Low risk from testing/treatment Moderate: Drug management Medical Decision Making Level: 4 - Moderate The above note was partially created using a dictation recognition software. A reasonable attempt has been made to correct any errors. documented in this encounter [facility] 02-15-2025 Note HNO ID: [id number] Author: OXANA DARLING APRN.CNP Service: ? Author Type: Nurse Practitioner Type: Progress Notes Filed: 02/15/2025 16:46 Note Text: [facility] General Cardiology Electrophysiology PRIMARY CARE PHYSICIAN: Bg Chavarria [address] [place] [address] CHIEF COMPLAINT: Cardiovascular medicine follow-up for arrhythmia. HISTORY OF PRESENT ILLNESS: Ms. Romero is a 84 year old female who presents today for follow-up regarding arrhythmia. Patient with a past medical history significant for vitamin D deficiency/osteopenia, hyperlipidemia, former smoker, type 2 diabetes, multiple sclerosis, and expressive aphasia. She established care with Dr. Rodriguez at the end of August 2024. She was evaluated at an outside cardiology clinic for episodes of lightheadedness and dizziness. She reported frequent episodes of pre-syncope without syncope; symptoms would subside when she lay down. Prior to her clinic visit, she had another pre-syncopal episode in a grocery store associated with chest pain and was evaluated by EMS, revealing a normal EKG and symptom resolution. She was advised to go to the ER if any recurrence. She subsequently had another episode of near syncope at a [employer] but did not seek medical help. She is physically active and denies any chest pain, shortness of breath with exertion, orthopnea, PND, or lower extremity edema. She does have joint-related issues including her back, hip, and knees. A 14-day monitor was ordered, which showed multiple runs of SVT. She was started on metoprolol 25 milligrams once daily. After starting metoprolol, she reported different symptoms of lightheadedness and dizziness; her (who is a retired family physician) felt that the symptoms might have been secondary to bradycardia. She decreased her metoprolol to half a tablet once daily and reported resolution of those symptoms. She continued to have intermittent episodes of palpitations and presyncopal symptoms indicating SVT episodes. 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 Rodriguez on October 26, 2024. She was discharged on Eliquis, recommended to continue for 30 days and stop, metoprolol succinate 12.5 milligrams daily was continued post-ablation. Diagnostic Results: - 30-day event monitor (December 01-December 30, 2024): - Sinus rhythm with episodes of SVT, heart rates up to 180 BPM. - Heart rates in the 70s-90s when in sinus rhythm. - 14-day monitor: - Multiple runs of SVT. - Longest run about 34 minutes with an average heart rate of 131 BPM. - Fastest event at a rate of 214 BPM. Interval History: The patient is an 84-year-old female with a history of AVNRT and typical atrial flutter, status post ablation, presenting for follow-up. She underwent ablation of the slow pathway for AVNRT and CTI ablation for new-onset typical atrial flutter with Dr. Rodriguez on 10/26/2024. She was discharged on Eliquis, recommended to continue for 30 days, and also to continue metoprolol succinate 12.5 mg daily. A 30-day event monitor worn from 12/01/2024 to 12/30/2024 showed sinus rhythm with episodes of SVT, with heart rates up to 180 bpm. When in sinus rhythm, her heart rates were in the 70s-90s. Recently, she has been experiencing episodes of presyncope and palpitations, with the most recent episodes occurring late last week, including two episodes in one day at a grocery store. These episodes last for seconds, and she describes feeling like the blood is rushing from her head and starting to feel like she is going to pass out. She notes that the Valsalva maneuver has been effective in terminating some episodes. She denies any episodes of syncope. She has not had any falls recently. She reports that she had started taking an oral medication at night, Xylimelts, which she believes may interact with metoprolol. She reduced the dosage from two to one per night and has since stopped taking it for a couple of days to see if it affects her symptoms. She has not had any episodes since stopping the medication, but also reports it has only been a few days. She denies any chest pain, dyspnea on exertion, orthopnea, PND, or lower extr, emity edema. She is physically active but has joint-related issues, including her back, hip, and knees, she ambulates with a 1 point cane. She denies any recent illness, fevers, chills, coughing, or wheezing. She has not experienced any bleeding problems while on Eliquis, such as hematuria, hematochezia, or epistaxis. Reviewed the monitor results with Dr. Rodriguez, recommend restarting oral anticoagulation due to rhythm possibly atrial flutter, and repeat a monitor in a couple of months. She expresses concern about the cost of Eliquis and is considering other anticoagulant options. She plans to contact her (more content not included)... [facility] 02-15-2025 Note HNO ID: [id number] Author: ADALI DURAN MD Service: ? Author Type: Physician Type: Procedures Filed: 05/07/2025 22:08 Note Text: Patient Name: Tania Romero : 1940 Ordering Provider: Oxana Darling Indication: I47.10 Supraventricular Tachycardia, unspecified Type of Monitor: Extended Monitoring-Zio Patch Enrollment Dates: 04/13/2025-04/27/2025 IRHYTHM FINDINGS: Patient had a min HR of 47 bpm, max HR of 185 bpm, and avg HR of 76 bpm. Predominant underlying rhythm was Sinus Rhythm. 53 Supraventricular Tachycardia runs occurred, the run with the fastest interval lasting 11 beats with a max rate of 185 bpm, the longest lasting 19.8 secs with an avg rate of 120 bpm. Supraventricular Tachycardia was detected within +/- 45 seconds of symptomatic patient event(s). Isolated SVEs were rare (<1.0%), SVE Couplets were rare (<1.0%), and SVE Triplets were rare (<1.0%). Isolated VEs were rare (<1.0%), VE Couplets were rare (<1.0%), and no VE Triplets were present. I reviewed and agree with the technical findings Adali Duran May 07, 2025 10:08 PM [facility] 02-15-2025 Telephone encounter Note All faxed back to the number on the form. [facility] 02-15-2025 Miscellaneous Notes All faxed back to the number on the form. Attached snap shot, completed and signed Rec'd and to pcp to review. Oxana calling from [facility] (office of Dr. Mp Haile) and states she will be faxing PCP office a clearance form for provider to complete for an upcoming procedure pt wishes to have. States pt is interested in extractions and dental implants. Nika Joshi RN documented in this encounter [facility] 02-13-2025 Telephone encounter Note Attached snap shot, completed and signed [facility] 02-10-2025 Telephone encounter Note Rec'd and to pcp to review. [facility] 02-10-2025 Telephone encounter Note Oxana calling from [facility] (office of Dr. Mp Haile) and states she will be faxing PCP office a clearance form for provider to complete for an upcoming procedure pt wishes to have. States pt is interested in extractions and dental implants. Nika Joshi RN [facility] 02-01-2025 Telephone encounter Note Called to discuss post ablation 30-day event monitor results with Mrs. Romero. She had an optometry appointment earlier today and her phone was turned off and fortunately I was able to reach her Dr. Ochoa. Mrs. Romero reports she has been feeling considerably better post AVNRT with CTI ablation on 10/26/2024. We reviewed event monitor results which revealed two episodes of paroxysmal SVT with a rate of 170 on 12/02/2024 as well as 12/23/2024. No definitive atrial flutter. Some accelerated brief atrial runs. Patient reports her symptoms are much improved post ablation. She has an episode maybe once a week but indicates these are very brief lasting a few seconds. She experiences heart racing and some lightheadedness. She sits down when these occur with subsequent resolution. She denies any near-syncope. She does deal with back pain but has been walking her dog once a week for anywhere from a half to a mile. She plans to increase this with improving weather. Patient remains on Toprol-XL 12.5 mg daily. Patient was reminded of upcoming appointment with EP on 02/15/2025 at 1600. Patient indicated that answered all her questions she had nothing further at this time. Josue Fagan APRN.CNP February 01, 2025 12:25 PM [facility] 02-01-2025 Miscellaneous Notes Called to discuss post ablation 30-day event monitor results with Mrs. Romero. She had an optometry appointment earlier today and her phone was turned off and fortunately I was able to reach her Dr. Ochoa. Mrs. Romero reports she has been feeling considerably better post AVNRT with CTI ablation on 10/26/2024. We reviewed event monitor results which revealed two episodes of paroxysmal SVT with a rate of 170 on 12/02/2024 as well as 12/23/2024. No definitive atrial flutter. Some accelerated brief atrial runs. Patient reports her symptoms are much improved post ablation. She has an episode maybe once a week but indicates these are very brief lasting a few seconds. She experiences heart racing and some lightheadedness. She sits down when these occur with subsequent resolution. She denies any near-syncope. She does deal with back pain but has been walking her dog once a week for anywhere from a half to a mile. She plans to increase this with improving weather. Patient remains on Toprol-XL 12.5 mg daily. Patient was reminded of upcoming appointment with EP on 02/15/2025 at 1600. Patient indicated that answered all her questions she had nothing further at this time. Josue Fagan APRN.SEEMA February 01, 2025 12:25 PM documented in this encounter [facility] 01-27-2025 Telephone encounter Note Pt has upcoming OV 02/15/25 with Peri. Does anything need done with the monitor report at this time? Rosanna Prajapati RN [facility] 01-27-2025 Miscellaneous Notes Pt has upcoming OV 02/15/25 with Peri. Does anything need done with the monitor report at this time? Rosanna Prajapati RN 12/30/24 monitor report scanned into Cellity for your review. Rosanna Prajapati RN documented in this encounter [facility] 01-01-2025 Telephone encounter Note 12/30/24 monitor report scanned into Cellity for your review. Rosanna Prajapati RN [facility] 12-18-2024 Note HNO ID: [id number] Author: ?, ?, ? Service: ? Author Type: LICENSED NURSE Type: Progress Notes Filed: 12/18/2024 11:32 Note Text: Patient presents for COVID vaccine. Denies any problems at this time. Tolerated injection well. Aliza Bianchi LPN [facility] 12-18-2024 History of Present illness Narrative Patient presents for COVID vaccine. Denies any problems at this time. Tolerated injection well. Aliza Bianchi LPN documented in this encounter [facility] 12-01-2024 Instructions Formatting of th is note might be different from the original. Patient educated on 30 day event monitor, and verbalizes understanding. [facility] 12-01-2024 Miscellaneous Notes Patient educated on 30 day event monitor, and verbalizes understanding. documented in this encounter [facility] 12-01-2024 Note HNO ID: [id number] Author: NITIN BURRELL RN Service: ? Author Type: Registered Nurse Type: Patient Education Filed: 12/01/2024 12:14 Note Text: Patient educated on 30 day event monitor, and verbalizes understanding. [facility] 11-20-2024 Instructions Bg Chavarria MD - 11/20/2024 10:22 AM EST - Continue taking your current medications: Fosamax, Eliquis, Metoprolol, Metformin, and Meloxicam as prescribed. - Increase your water intake daily to help with bowel movements. - Add a fiber supplement like Metamucil or Citrucel to your diet to help bulk up stools and prevent them from being too soft. - Monitor your bowel movements and report any significant changes or concerns. - Stay active and maintain good posture to help with scoliosis-related discomfort. - Next appointment is on March 19. - Follow-up appointment scheduled for June. - An additional 4-month checkup appointment will be scheduled for next year. BONE MINERAL DENSITY PATIENT INSTRUCTIONS ======= Bone mineral density testing measures the amount of calcium in certain parts of your bones. This information determines how strong your bones are. The test is used to detect osteoporosis, a disease in which the bone's mineral content and density are low, increasing a person's risk of fractures. The lumbar spine (lower back) and the hip are the skeletal sites usually examined. For the test, remember that: 1. You cannot take this test if you are . 2. Eat a normal diet on the day of the test. 3. Take your medications as you normally would. 4. DO NOT take calcium supplements (such as Tums) for 24 hours before the test. 5. On the day of the test, leave valuables (jewelry or credit cards) at home. 6. The test should be performed prior to oral, rectal or IV contrast studies, or at least 7 days after any of these studies. For the test, you may be asked to wear a hospital gown. You will lie on your back, on a padded table, in a comfortable position. Generally, you can resume your usual activities immediately. documented in this encounter [facility] 11-20-2024 Note HNO ID: [id number] Author: BG CHAVARRIA MD Service: ? Author Type: Physician Type: Progress Notes Filed: 11/20/2024 12:42 Note Text: This note was created using [employer]. Tessa Romero is a 84 year old female. Patient presents with: Follow Up: 4 months SUBJECTIVE: Tania Romero is a 84 year old year old lady here today for 4 month follow up appointment for review of medical conditions. Tania Romero is an 84-year-old female, with a history of AVNRT, atrial flutter, scoliosis, and recent URI, presenting for a 4-month follow-up visit. Tania Romero recently underwent an ablation for AVNRT and atrial flutter. She is currently on apixaban and metoprolol, managed by her turbine engine assembler. She reports occasional minor palpitations but otherwise feels well. She denies any pain or discomfort at the ablation site. She also reports experiencing lower back pain, which she attributes to her scoliosis. The pain is more pronounced as the day progresses, especially when she is standing or cooking. She notes that the pain is alleviated when she is lying down. She denies working on posture improvement. Tania reports issues with bowel movements, describing a sensation of incomplete evacuation. She notes that her stools are usually soft and of normal caliber, but she occasionally experiences loose stools. She denies experiencing small, hard stools or symptoms of vaginal prolapse. She admits to not drinking enough water daily but tries to eat a lot of vegetables and fruits. She recently recovered from a URI, which left her feeling fatigued from Saturday through Saturday. She used an OTC cough and cold medication to help her sleep during this period. She reports feeling better now and does not believe she is still infectious. 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 Rodriguez on 10/26/2024. Stroke risk 10/27/2024 Type 2 diabetes mellitus, without long-term current use of insulin ([facility]) 01/24/2021 Typical atrial flutter ([facility]) 10/27/2024 Current Outpatient Medications Medication Sig metoprolol succinate ER (TOPROL XL) 25 mg 24 hr tablet Take 0.5 tablets by mouth once daily. apixaban (ELIQUIS) 2.5 mg tab(s) Take 1 tablet by mouth two times a day. meloxicam (MOBIC) 7.5 mg tablet Take 1 tablet by mouth once daily. cyanocobalamin 1,000 mcg/mL USE ONE ML INTO THE MUSCLE ONCE MONTHLY alendronate (FOSAMAX) 70 mg tablet Take 1 tablet by mouth one time a week. Take with a full glass of water, on an empty stomach; do NOT lie down for 30minutes. metFORMIN ER (GLUCOPHAGE XR) 500 mg 24 hr tablet Take 1 tablet by mouth daily with breakfast. Syringe with Needle, Disp, (BD LUER-ISABEL SYRINGE) 3 mL 25 gauge x 1 Use for b12 injection monthly Cholecalciferol, Vitamin D3, 125 mcg (5,000 unit) cap Hold for 1 month then take once weekly Lactobacillus acidophilus (PROBIOTIC ORAL) Take by mouth. calcium carbonate (TUMS ORAL) Take by mouth as needed. Lactase (LACTAID FAST ACT) 9,000 unit chew Uses as needed conjugated estrogens (PREMARIN) vaginal cream Use 0.5 g vaginally as needed. for 3 weeks then off for 1 week No current facility-administered medications for this visit. Review of Systems Objective BP 118/80 Pulse 72 Resp 12 Wt 51.4 kg (113 lb 5.1 oz) SpO2 97% BMI 22.13 kg/m? Last 5 Encounter Wt Readings: Date: Wt: 11/20/2024 51.4 kg (113 lb 5.1 oz) 11/02/2024 51 kg (112 lb 7 oz) 09/24/2024 51.3 kg (113 lb) 09/24/2024 49.4 kg (109 lb) 07/28/2024 49.6 kg (109 lb 5.6 oz) No waist measurement recorded Estimated body mass index is 22.13 kg/m? as calculated from the following: Height as of 10/26/24: 152.4 cm (5'). Weight as of this encounter: 51.4 kg (113 lb 5.1 oz). Last 5 Encounter BP Readings: Date: BP: 11/20/2024 118/80 11/02/2024 129/72 10/26/2024 127/83 09/24/2024 101/51 09/24/2024 118/64 Physical Exam Constitutional: Appearance: Normal appearance. HENT: Head: Normocephalic. Eyes: Conjunctiva/sclera: Conjunctivae normal. Cardiovascular: Rate and Rhythm: Normal rate and regular rhythm. Heart sounds: Normal heart sounds. Pulmonary: Effort: Pulmonary effort is normal. Breath sounds: Normal breath sounds. Musculoskeletal: Right lower leg: No edema. Left lower leg: No edema. Skin: General: Skin is warm and dry. Neurological: General: No focal deficit present. Mental Status: She is alert and oriented to person, place, and time. Psychiatric: Mood and Affect: Mood normal. Behavior: Behavior normal. Thought Content: Thought content normal. Judgment: Judgment normal. Assessment and P (more content not included)... [facility] 11-20-2024 History of Present illness Narrative This note was created using [employer]. Subjective Tania Romero is a 84 year old female. Patient presents with: Follow Up: 4 months SUBJECTIVE: Tania Romero is a 84 year old year old lady here today for 4 month follow up appointment for review of medical conditions. Tania Romero is an 84-year-old female, with a history of AVNRT, atrial flutter, scoliosis, and recent URI, presenting for a 4-month follow-up visit. Tania Romero recently underwent an ablation for AVNRT and atrial flutter. She is currently on apixaban and metoprolol, managed by her turbine engine assembler. She reports occasional minor palpitations but otherwise feels well. She denies any pain or discomfort at the ablation site. She also reports experiencing lower back pain, which she attributes to her scoliosis. The pain is more pronounced as the day progresses, especially when she is standing or cooking. She notes that the pain is alleviated when she is lying down. She denies working on posture improvement. Tania reports issues with bowel movements, describing a sensation of incomplete evacuation. She notes that her stools are usually soft and of normal caliber, but she occasionally experiences loose stools. She denies experiencing small, hard stools or symptoms of vaginal prolapse. She admits to not drinking enough water daily but tries to eat a lot of vegetables and fruits. She recently recovered from a URI, which left her feeling fatigued from Saturday through Saturday. She used an OTC cough and cold medication to help her sleep during this period. She reports feeling better now and does not believe she is still infectious. 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 Rodriguez on 10/26/2024. Stroke risk 10/27/2024 Type 2 diabetes mellitus, without long-term current use of insulin ([facility]) 01/24/2021 Typical atrial flutter ([facility]) 10/27/2024 Current Outpatient Medications Medication Sig metoprolol succinate ER (TOPROL XL) 25 mg 24 hr tablet Take 0.5 tablets by mouth once daily. apixaban (ELIQUIS) 2.5 mg tab(s) Take 1 tablet by mouth two times a day. meloxicam (MOBIC) 7.5 mg tablet Take 1 tablet by mouth once daily. cyanocobalamin 1,000 mcg/mL USE ONE ML INTO THE MUSCLE ONCE MONTHLY alendronate (FOSAMAX) 70 mg tablet Take 1 tablet by mouth one time a week. Take with a full glass of water, on an empty stomach; do NOT lie down for 30minutes. metFORMIN ER (GLUCOPHAGE XR) 500 mg 24 hr tablet Take 1 tablet by mouth daily with breakfast. Syringe with Needle, Disp, (BD LUER-ISABEL SYRINGE) 3 mL 25 gauge x 1 Use for b12 injection monthly Cholecalciferol, Vitamin D3, 125 mcg (5,000 unit) cap Hold for 1 month then take once weekly Lactobacillus acidophilus (PROBIOTIC ORAL) Take by mouth. calcium carbonate (TUMS ORAL) Take by mouth as needed. Lactase (LACTAID FAST ACT) 9,000 unit chew Uses as needed conjugated estrogens (PREMARIN) vaginal cream Use 0.5 g vaginally as needed. for 3 weeks then off for 1 week No current facility-administered medications for this visit. Review of Systems Objective BP 118/80 Pulse 72 Resp 12 Wt 51.4 kg (113 lb 5.1 oz) SpO2 97% BMI 22.13 kg/m Last 5 Encounter Wt Readings: Date: Wt: 11/20/2024 51.4 kg (113 lb 5.1 oz) 11/02/2024 51 kg (112 lb 7 oz) 09/24/2024 51.3 kg (113 lb) 09/24/2024 49.4 kg (109 lb) 07/28/2024 49.6 kg (109 lb 5.6 oz) No waist measurement recorded Estimated body mass index is 22.13 kg/m as calculated from the following: Height as of 10/26/24: 152.4 cm (5'). Weight as of this encounter: 51.4 kg (113 lb 5.1 oz). Last 5 Encounter BP Readings: Date: BP: 11/20/2024 118/80 11/02/2024 129/72 10/26/2024 127/83 09/24/2024 101/51 09/24/2024 118/64 Physical Exam Constitutional: Appearance: Normal appearance. HENT: Head: Normocephalic. Eyes: Conjunctiva/sclera: Conjunctivae normal. Cardiovascular: Rate and Rhythm: Normal rate and regular rhythm. Heart sounds: Normal heart sounds. Pulmonary: Effort: Pulmonary effort is normal. Breath sounds: Normal breath sounds. Musculoskeletal: Right lower leg: No edema. Left lower leg: No edema. Skin: General: Skin is warm and dry. Neurological: General: No focal deficit present. Mental Status: She is alert and oriented to person, place, and time. Psychiatric: Mood and Affect: Mood normal. Behavior: Behavior normal. Thought Content: Thought content normal. Judgment: Judgment normal. Assessment and Plan # Type 2 diabetes mellitus with other specified complication, without long-term current use of insulin (HCC) (E11.69) - Clinically stable on metformin. - Ordered hemoglobin A1c, comprehensive metabolic panel, and urine microalbumin for next appointment in February. # Fecal incontinence with incomplete defecation (R15.9) - Experiencing incomplete evacuation with soft to normal stools. - Recommended increasing dietary fiber and hydration. - Advised use of Metamucil to bulk stools. - Monitor symptoms; consider referral to general surgery if no improvement. # Age-related osteoporosis without current pathological fracture (M81.0) - Continue Fosamax; prescription sent to [facility] with instructions to fill when due. # S/P catheter ablation of slow pathway (Z98.890) - Recent AVNRT and CTI ablation performed. - Monitoring by cardiology; currently on apixaban and metoprolol. - No further intervention required at this time. # Vitamin D deficiency (E55.9) - Ordered vitamin D level for next appointment in February. # Low vitamin B12 level (R79.89) - Ordered B12 level for next appointment in February. - Patient receives B12 injections; advised to avoid injection immediately before lab draw. 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 - Encouraged posture awareness and exercises to alleviate discomfort. - Discussed that cardiology okay with her continuing on NSAID while on blood thinner. Patient without adverse effects. Benefits outweigh risks at this time. Patient able to stay active, including taking care of puppy. # Asymptomatic postmenopausal status (Z78.0) - No current issues; continue routine monitoring. Fecal incontinence noted after incomplete bowel emptying. Further evaluation and treatment as indicated. documented in this encounter [facility] 11-02-2024 History of Present illness Narrative SUBJECTIVE: Advance Directive Discussion due on 09/30/2024 HPI Tania Romero is a 84 year old female. 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 Admitted October 26, 2024 to October 27, 2024. Attending Provider: Russell Rodriguez MD Discharge summary excerpted: Tania is a pleasant 84-year-old female who underwent ablation of slow pathway for history of AVNRT as well as CTI ablation for new onset typical atrial flutter with Dr. Rodriguez on 10/26/2024. Procedure was tolerated well and there were no intra or postoperative complications. Plan is for 30 days of Eliquis at discharge as well as continuation of Toprol XL 12.5 mg daily. 30-day event monitor to be hooked up in 1 month. Patient was discharged without issue on 10/27/2024. Today reports some mild positional lightheadedness the first day or 2 after discharge now resolved. Current symptoms: None reported Taking Eliquis: yes Taking metoprolol succinate: yes one half tablet Scheduled for event monitor: not yet Scheduled for cardiology:yes Last 14 Encounter BP Readings: Date: BP: 11/02/2024 129/72 10/26/2024 127/83 09/24/2024 101/51 09/24/2024 118/64 07/28/2024 128/76 07/06/2024 133/74 05/18/2024 134/68 03/31/2024 144/80 03/24/2024 110/70 11/18/2023 112/74 07/15/2023 123/78 06/30/2023 159/86 06/27/2023 101/56 06/21/2023 88/53 DIABETES MELLITUS: Without report of excessive thirst or increased frequency of urination, chest pain or dyspnea , numbness, tingling or pain in extremities, new or unusual visual symptoms, low sugar/hypoglycemic reactions, weight loss/gain, lightheadedness/dizziness and bowel changes/loose stools. Patient's last HgA1C was Hemoglobin A1C (%) Date Value 07/23/2024 6.5 03/11/2024 6.5 06/27/2021 6.9 10/17/2020 6.2 Hemoglobin A1C (POCT) (%) Date Value 11/18/2023 6.6 11/09/2022 6.3 Review of Systems Constitutional: Negative. Cardiovascular: Negative. Endocrine: Negative. Objective BP 129/72 Pulse 67 Resp 16 Wt 51 kg (112 lb 7 oz) SpO2 97% BMI 21.96 kg/m Physical Exam Vitals and nursing note reviewed. Constitutional: Appearance: Normal appearance. HENT: Head: Normocephalic and atraumatic. Eyes: Conjunctiva/sclera: Conjunctivae normal. Neck: Thyroid: No thyromegaly. Vascular: Normal carotid pulses. No JVD. Cardiovascular: Rate and Rhythm: Normal rate and regular rhythm. Pulses: Normal pulses. Carotid pulses are 2+ on the right side and 2+ on the left side. Radial pulses are 2+ on the right side and 2+ on the left side. Heart sounds: Normal heart sounds. Pulmonary: Effort: Pulmonary effort is normal. Abdominal: General: Bowel sounds are normal. Palpations: Abdomen is soft. Musculoskeletal: Right lower leg: No edema. Left lower leg: No edema. Skin: General: Skin is warm and dry. Neurological: General: No focal deficit present. Mental Status: She is alert and oriented to person, place, and time. ALLERGIES Allergen Reactions Amoxicillin Rash Clindamycin Contraindication-Medical Surgical C diff Compazine [Prochlor* Intolerance Penicillins Rash, Intolerance Rash after 4 days of antibiotic . Prochlorperazine Dystonia MEDICATIONS: metoprolol succinate ER (TOPROL XL) 25 mg 24 hr tablet Take 0.5 tablets by mouth once daily. apixaban (ELIQUIS) 2.5 mg tab(s) Take 1 tablet by mouth two times a day. meloxicam (MOBIC) 7.5 mg tablet Take 1 tablet by mouth once daily. cyanocobalamin 1,000 mcg/mL USE ONE ML INTO THE MUSCLE ONCE MONTHLY alendronate (FOSAMAX) 70 mg tablet Take 1 tablet by mouth one time a week. Take with a full glass of water, on an empty stomach; do NOT lie down for 30minutes. metFORMIN ER (GLUCOPHAGE XR) 500 mg 24 hr tablet Take 1 tablet by mouth daily with breakfast. Syringe with Needle, Disp, (BD LUER-ISABEL SYRINGE) 3 mL 25 gauge x 1 Use for b12 injection monthly Cholecalciferol, Vitamin D3, 125 mcg (5,000 unit) cap Hold for 1 month then take once weekly Lactobacillus acidophilus (PROBIOTIC ORAL) Take by mouth. calcium carbonate (TUMS ORAL) Take by mouth as needed. Lactase (LACTAID FAST ACT) 9,000 unit chew Uses as needed conjugated estrogens (PREMARIN) vaginal cream Use 0.5 g vaginally as needed. for 3 weeks then off for 1 week PAST MEDICAL HISTORY Diagnosis Date Arthritis DJD (degenerative joint disease) of hip Left--Dr. 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 Rodriguez on 10/26/2024. Stroke risk 10/27/2024 Type 2 diabetes mellitus, without long-term current use of insulin (HCC) 01/24/2021 Typical atrial flutter (HCC) 10/27/2024 Social History Tobacco Use Smoking status: Former Current packs/day: 0.00 Types: Cigarettes Quit date: 1992 Years since quittin.1 Smokeless tobacco: Never Vaping Use Vaping status: Never Used Substance Use Topics Alcohol use: Yes Comment: GLASS OF WINE DAILY/ Intermittent Drug use: Not Currently Latest Ref Rng 07/06/2024 07/23/2024 10/26/2024 10/27/2024 WBC 3.70 - 11.00 k/uL 8.98 RBC 3.90 - 5.20 m/uL 4.32 Hemoglobin 11.5 - 15.5 g/dL 12.4 Hematocrit 36.0 - 46.0 % 38.9 MCV 80.0 - 100.0 fL 90.0 MCH 26.0 - 34.0 pg 28.7 MCHC 30.5 - 36.0 g/dL 31.9 RDW-CV 11.5 - 15.0 % 13.5 Platelet Count 150 - 400 k/uL 306 MPV 9.0 - 12.7 fL 9.9 Neut% % 60.8 Abs Neut (ANC) 1.45 - 7.50 k/uL 5.45 Lymph% % 27.7 Abs Lymph 1.00 - 4.00 k/uL 2.49 [place]% % 9.0 Abs [place] <0.87 k/uL 0.81 Eosin% % 1.9 Abs Eosin <0.46 k/uL 0.17 Baso% % 0.4 Abs Baso <0.11 k/uL 0.04 Immature Gran % % 0.2 IMMATURE GRANS (ABS) <0.10 k/uL <0.03 NRBC /100 WBC 0.0 Absolute nRBC <0.01 k/uL <0.01 DTYPE Auto Protein, Total 6.3 - 8.0 g/dL 6.8 Albumin 3.9 - 4.9 g/dL 4.2 Calcium 8.5 - 10.2 mg/dL 9.4 9.3 Bilirubin, Total 0.2 - 1.3 mg/dL 0.4 Alkaline Phosphatase 34 - 123 U/L 67 AST 13 - 35 U/L 19 ALT 7 - 38 U/L 14 Glucose 74 - 99 mg/dL 115 (H) 117 (H) BUN 7 - 21 mg/dL 31 (H) 30 (H) Creatinine 0.58 - 0.96 mg/dL 0.96 1.05 (H) Sodium 136 - 144 mmol/L 143 142 Potassium 3.7 - 5.1 mmol/L 4.6 3.8 Chloride 98 - 107 mmol/L 104 104 CO2 22 - 30 mmol/L 28 26 Anion Gap 8 - 15 mmol/L 11 12 eGFR >=60 mL/min/1.73m 59 (L) 53 (L) Hemoglobin A1C 4.3 - 5.6 % 6.5 (H) Estimated Average Glucose mg/dL 140 TSH 0.270 - 4.200 mIU/L 2.300 Glucose, Point of Care 74 - 99 mg/dL 174 ! ASSESSMENT/PLAN: 1. Postural dizziness with presyncope - ICD9: 780.4, 780.2, ICD10: R42, R55 (primary diagnosis) She notes only mild positional lightheadedness 1 or 2 days after ablation and no further symptoms. 2. S/P catheter ablation of slow pathway - ICD9: V45.89, ICD10: Z98.890, Z86.79 3. Typical atrial flutter (HCC) - ICD9: 427.32, ICD10: I48.3 She reports doing well status post ablation. She has been taking Eliquis as prescribed. No bleeding difficulties reported. She is taking 12.5 mg metoprolol succinate daily. Follow-up event monitor has not yet been scheduled. She does have an appointment with cardiology scheduled. Luis Manuel Hernandez APRN.CNS Medical Decision Making: Problems: Moderate: 1+ chronic illnesses with change Data: Unique test result(s) reviewed: 3+ Risk: Moderate: Drug management Medical Decision Making Level: 4 - Moderate documented in this encounter [facility] 11-02-2024 Note HNO ID: [id number] Author: LUIS MANUEL HERNANDEZ APRN.[employer] Service: ? Author Type: Nurse Specialist Type: Progress Notes Filed: 11/02/2024 11:38 Note Text: SUBJECTIVE: Advance Directive Discussion due on 09/30/2024 HPI Tania Romero is a 84 year old female. 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 Admitted October 26, 2024 to October 27, 2024. Attending Provider: Russell Rodriguez MD Discharge summary excerpted: Tania is a pleasant 84-year-old female who underwent ablation of slow pathway for history of AVNRT as well as CTI ablation for new onset typical atrial flutter with Dr. Rodriguez on 10/26/2024. Procedure was tolerated well and there were no intra or postoperative complications. Plan is for 30 days of Eliquis at discharge as well as continuation of Toprol XL 12.5 mg daily. 30-day event monitor to be hooked up in 1 month. Patient was discharged without issue on 10/27/2024. Today reports some mild positional lightheadedness the first day or 2 after discharge now resolved. Current symptoms: None reported Taking Eliquis: yes Taking metoprolol succinate: yes one half tablet Scheduled for event monitor: not yet Scheduled for cardiology:yes Last 14 Encounter BP Readings: Date: BP: 11/02/2024 129/72 10/26/2024 127/83 09/24/2024 101/51 09/24/2024 118/64 07/28/2024 128/76 07/06/2024 133/74 05/18/2024 134/68 03/31/2024 144/80 03/24/2024 110/70 11/18/2023 112/74 07/15/2023 123/78 06/30/2023 159/86 06/27/2023 101/56 06/21/2023 88/53 DIABETES MELLITUS: Without report of excessive thirst or increased frequency of urination, chest pain or dyspnea , numbness, tingling or pain in extremities, new or unusual visual symptoms, low sugar/hypoglycemic reactions, weight loss/gain, lightheadedness/dizziness and bowel changes/loose stools. Patient's last HgA1C was Hemoglobin A1C (%) Date Value 07/23/2024 6.5 03/11/2024 6.5 06/27/2021 6.9 10/17/2020 6.2 Hemoglobin A1C (POCT) (%) Date Value 11/18/2023 6.6 11/09/2022 6.3 Review of Systems Constitutional: Negative. Cardiovascular: Negative. Endocrine: Negative. Objective BP 129/72 Pulse 67 Resp 16 Wt 51 kg (112 lb 7 oz) SpO2 97% BMI 21.96 kg/m? Physical Exam Vitals and nursing note reviewed. Constitutional: Appearance: Normal appearance. HENT: Head: Normocephalic and atraumatic. Eyes: Conjunctiva/sclera: Conjunctivae normal. Neck: Thyroid: No thyromegaly. Vascular: Normal carotid pulses. No JVD. Cardiovascular: Rate and Rhythm: Normal rate and regular rhythm. Pulses: Normal pulses. Carotid pulses are 2+ on the right side and 2+ on the left side. Radial pulses are 2+ on the right side and 2+ on the left side. Heart sounds: Normal heart sounds. Pulmonary: Effort: Pulmonary effort is normal. Abdominal: General: Bowel sounds are normal. Palpations: Abdomen is soft. Musculoskeletal: Right lower leg: No edema. Left lower leg: No edema. Skin: General: Skin is warm and dry. Neurological: General: No focal deficit present. Mental Status: She is alert and oriented to person, place, and time. ALLERGIES Allergen Reactions Amoxicillin Rash Clindamycin Contraindication-Medical Surgical C diff Compazine [Prochlor* Intolerance Penicillins Rash, Intolerance Rash after 4 days of antibiotic . Prochlorperazine Dystonia MEDICATIONS: metoprolol succinate ER (TOPROL XL) 25 mg 24 hr tablet Take 0.5 tablets by mouth once daily. apixaban (ELIQUIS) 2.5 mg tab(s) Take 1 tablet by mouth two times a day. meloxicam (MOBIC) 7.5 mg tablet Take 1 tablet by mouth once daily. cyanocobalamin 1,000 mcg/mL USE ONE ML INTO THE MUSCLE ONCE MONTHLY alendronate (FOSAMAX) 70 mg tablet Take 1 tablet by mouth one time a week. Take with a full glass of water, on an empty stomach; do NOT lie down for 30minutes. metFORMIN ER (GLUCOPHAGE XR) 500 mg 24 hr tablet Take 1 tablet by mouth daily with breakfast. Syringe with Needle, Disp, (BD LUER-ISABEL SYRINGE) 3 mL 25 gauge x 1 Use for b12 injection monthly Cholecalciferol, Vitamin D3, 125 mcg (5,000 unit) cap Hold for 1 month then take once weekly Lactobacillus acidoph (more content not included)... [facility] 10-30-2024 Telephone encounter Note Patient underwent ablation of slow pathway as well as typical atrial flutter ablation with Dr. Rodriguez on 10/26/2024. Plan is for 30 days of Eliquis post ablation. As discussed with patient orders placed for 30-day event monitor to be hooked up in 1 month. Follow-up in 3 months in office with Josue Pedroza APRN.CNP October 30, 2024 4:25 PM [facility] 10-30-2024 Miscellaneous Notes Patient underwent ablation of slow pathway as well as typical atrial flutter ablation with Dr. Rodriguez on 10/26/2024. Plan is for 30 days of Eliquis post ablation. As discussed with patient orders placed for 30-day event monitor to be hooked up in 1 month. Follow-up in 3 months in office with Josue Pedroza APRN.CNP October 30, 2024 4:25 PM documented in this encounter [facility] 10-15-2024 Telephone encounter Note Pt's name has been added to [place] procedure board. Rosanna Prajapati RN [facility] 10-15-2024 Miscellaneous Notes Pt's name has been added to [place] procedure board. Rosanna Prajapati RN Patient is scheduled for an SVT Ablation on 10/[address] Rodriguez. The hospital will call the day before between 2-5pm with your arrival time. You should not eat or drink after midnight the day before the procedure. You will need a lease purchase driver when released from the hospital and you will stay overnight for observation. You should continue to take medications as prescribed the morning of the procedure with just a sip of water but hold Metoprolol 5 days prior H&P morning of Spoke with Tania Romero on October 15, 2024. Informed of instructions as stated above. Patient verbalized understanding. Olimpia Herzog documented in this encounter [facility] 10-15-2024 Telephone encounter Note Patient is scheduled for an SVT Ablation on 10/[address] Rodriguez. The hospital will call the day before between 2-5pm with your arrival time. You should not eat or drink after midnight the day before the procedure. You will need a lease purchase driver when released from the hospital and you will stay overnight for observation. You should continue to take medications as prescribed the morning of the procedure with just a sip of water but hold Metoprolol 5 days prior H&P morning of Spoke with Tania Romero on October 15, 2024. Informed of instructions as stated above. Patient verbalized understanding. Olimpia Herzog [facility] 09-24-2024 Russell Mcmillan MD - 09/24/2024 1:34 PM EST Paroxysmal Supraventricular Tachycardia (Fast Heartbeat) What is paroxysmal supraventricular tachycardia? Paroxysmal supraventricular tachycardia (PSVT) is a very fast heartbeat that comes and goes. What is the cause? An electrical signal in your heart starts each heartbeat, causing the heart muscle to squeeze (contract). Normally, this signal starts in the upper right chamber of the heart (the right atrium) at a place called the sinus node. The signal then follows normal pathways to the upper left atrium and to the lower chambers of the heart (the ventricles). Sometimes the electrical signals don t follow the normal pathways. This may make the heart beat very fast. There are several types of PSVT. The most common type happens to adults in their 20s and 30s. It s more common in women than men. It may happen more often during . People with this type of PSVT almost always have an extra electrical pathway connecting the upper and lower chambers. When the electrical signal goes down both pathways at the same time, the heart beats normally. If the electrical signal goes down one pathway faster than the other, it can then go back up the extra pathway, making the heart beat very fast. Other causes of PSVT include heart disease, heart infections, health problems such as lung disease or an overactive thyroid gland, alcohol or drug abuse, caffeine, or smoking. What are the symptoms? Symptoms of PSVT may be mild or severe. Symptoms may include: Feeling like your heart is beating too fast or too hard or skipping beats or fluttering Feeling weak, dizzy, or lightheaded Fainting Shortness of breath Chest tightness How is it diagnosed? Your healthcare provider will ask about your symptoms and medical history and examine you. Tests may include: An ECG (also called an EKG), which measures and records your heartbeat. You may have an ECG while you are resting or while you exercise on a treadmill. You may also be asked to wear a small portable ECG monitor for a few days or sometimes a couple weeks. Blood tests Chest X-ray An electrophysiologic study (EPS), which uses tiny wires put into your heart through your veins to look at the electrical pathways in your heart How is it treated? The goal of treatment is to help the heart keep a normal rhythm. Your treatment depends on the cause of the PSVT, how often you have symptoms, and the severity of your symptoms. You may not need treatment if the attacks are rare, don t last long, and don t cause serious symptoms. For most people, PSVT starts sudden and lasts just a short time. The heart goes back to a normal rhythm on its own. If you keep having spells of PSVT, treatment may help keep you from having so many spells. Your healthcare provider can show you ways to stop a spell of PSVT. Other possible treatments are: Medicine to control the heart rate Electrical cardioversion: First, you will be given medicine called anesthesia to keep you from feeling pain during the procedure. Then your chest will be given an electrical shock. The electrical shock should make your heart start beating normally again. You may need medicine to keep your heart rhythm normal after this procedure. Ablation: Ablation is a procedure that uses a small tube called a catheter to deliver energy to the inside of the heart. The energy (usually radio waves) scars small areas of heart tissue. The scars block abnormal electrical pathways and help you have a normal heart rhythm. With some types of ablation treatment, you will also need a pacemaker. A pacemaker is an electronic device put under the skin of your chest to help control the heartbeat. How can I take care of myself? Follow your healthcare provider's instructions. Ask your provider: How and when you will hear your test results How long it will take to recover What activities you should avoid and when you can return to your normal activities How to take care of yourself at home What symptoms or problems you should watch for and what to do if you have them Make sure you know when you should come back for a checkup. How can I help prevent PSVT? The best prevention is to have a heart-healthy lifestyle. Keep a healthy weight. Eat a healthy diet. Stay fit with the right kind of exercise for you. Decrease stress. Don t smoke. Limit your use of alcohol. If you have heart disease or high blood pressure, follow your healthcare provider's instructions for treatment. Developed by [employer]. Published by [employer]. Copyright 2014 [employer] and/or one of its subsidiaries. All rights reserved. documented in this encounter [facility] 09-24-2024 Note HNO ID: [id number] Author: URTH CORBETT MA Service: ? Author Type: Network Engineer Administrator Type: Progress Notes Filed: 10/01/2024 11:00 Note Text: Patient denies any cardiac issues or symptoms. [facility] 09-24-2024 History of Present illness Narrative Patient denies any cardiac issues or symptoms. Images from the original note were not included. PRIMARY CARE PHYSICIAN: Bg Chavarria [address] [place] [address] REFERRING PHYSICIAN: Bg Chavarria [address] [facility] [id number] Patient Care Team: Bg Chavarria MD as PCP - General (Internal Medicine) Sincere Hopkins MD as Referring (Orthopedics) Sincere Hopkins MD as Home Care Provider (Orthopedics) Luis Manuel Hernandez APRN.DRAW HAND as Care Technician (Internal Medicine) Linda Silva APRN.MORTGAGE LOAN ASSISTANT as Care Technician (Internal Medicine) CHIEF COMPLAINT: SVT/presyncope HISTORY OF PRESENT ILLNESS: Ms. Romero is a 84 year old female with PMH significant for vitamin D deficiency/osteopenia, hyperlipidemia, former smoker, type 2 diabetes mellitus, multiple sclerosis, expressive aphasia who presents today to establish to the EP clinic. Patient was evaluated at outside cardiology for episodes of lightheadedness and dizziness. She reports frequent episodes of presyncope, where she would feel she was about to pass out. No episodes of syncope. She would sit or lay down and episodes would subside. Prior to her clinic visit, she had another presyncopal episode in the grocery store associated with chest pain and was evaluated by EMS. At the time revealing a normal EKG and symptoms resolved. Advised to go to the ER if any recurrence. 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 Subsequently a 14-day event monitor was ordered which showed multiple runs of SVT. Longest run was about 34 minutes along with an average heart rate of 131 bpm. Fastest event at a rate of 214 bpm. She did not however report any triggered symptoms during this evaluation to correlate rhythm. She was started on metoprolol 25 mg once daily. Since starting on metoprolol, she reports different symptoms of lightheadedness and dizziness and her who is a retired family physician felt there might have been secondary to bradycardia. She decreased her metoprolol to half tablet once daily and reports resolution of those symptoms. She however continues to have intermittent episodes of palpitations and presyncopal symptoms, indicating SVT episodes. She does report a remote episode of syncope after having similar prodromal symptoms and likely related to SVT. She remains physically active and denies any chest pain, shortness of breath with exertion, orthopnea, PND, lower extremity edema. She however continues to have joint related issues including of her back and hip and knees. She has had prior general anesthesia procedures despite diagnosis of MS and has done well without any issues. I have confirmed and edited as necessary, the PFSH and ROS obtained by others. 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 Vasquez (worse from 2011 to 2012) Low vitamin B12 level Multiple sclerosis (HCC) 05/31/2016 Osteopenia Type 2 diabetes mellitus, without long-term current use of insulin ([facility]) 01/24/2021 PAST SURGICAL HISTORY Procedure Laterality Date ABDOMINAL SURGERY HX CATARACT EXTRACTION HX Right 04/25/2015 Cataract surgery DELIVERY ONLY , low cervical COLONOSCOPY FLX DX W/COLLJ SPEC WHEN PFRMD 07/31/2000 Colonoscopy COLONOSCOPY FLX DX W/COLLJ SPEC WHEN PFRMD 09/18/2006 COLONOSCOPY FLX DX W/COLLJ SPEC WHEN PFRMD 07/01/2012 Colonoscopy COLONOSCOPY FLX DX W/COLLJ SPEC WHEN PFRMD 04/30/2017 Colonoscopy EYE SURGERY HX HERNIA REPAIR HX JOINT REPLACEMENT HX LIG/TRNSXJ FLP TUBE ABDL/VAG APPR UNI/BI Tubal ligation PAST SURGICAL HISTORY OF 12/31/2002 lap left ing hernia PAST SURGICAL HISTORY OF 10/03/2012 bunionectomy (Dr. Araya) TONSILLECTOMY HX TONSILLECTOMY PRIMARY/SECONDARY <AGE 13 Tonsillectomy TOTAL HIP REPLACEMENT Left 02/01/2021 TOTAL HIP REPLACEMENT Right 06/27/2023 SOCIAL HISTORY Social History Tobacco Use Smoking status: Former Current packs/day: 0.00 Types: Cigarettes Quit date: 1992 Years since quittin.0 Smokeless tobacco: Never Vaping Use Vaping status: Never Used Substance Use Topics Alcohol use: Yes Comment: GLASS OF WINE DAILY/ Intermittent Drug use: Not Currently FAMILY HISTORY Problem Relation Age of Onset Cancer Father COLON Osteoporosis Mother other (low thyroid) Mother ALLERGIES: ALLERGIES Allergen Reactions Amoxicillin Rash Clindamycin Contraindication-Medical Surgical C diff Compazine [Prochlor* Intolerance Penicillins Rash, Intolerance Rash after 4 days of antibiotic . Prochlorperazine Dystonia MEDICATIONS: meloxicam (MOBIC) 7.5 mg tablet Take 1 tablet by mouth once daily. cyanocobalamin 1,000 mcg/mL USE ONE ML INTO THE MUSCLE ONCE MONTHLY metoprolol succinate ER (TOPROL XL) 25 mg 24 hr tablet Take 1 tablet by mouth once daily. alendronate (FOSAMAX) 70 mg tablet Take 1 tablet by mouth one time a week. Take with a full glass of water, on an empty stomach; do NOT lie down for 30minutes. metFORMIN ER (GLUCOPHAGE XR) 500 mg 24 hr tablet Take 1 tablet by mouth daily with breakfast. Syringe with Needle, Disp, (BD LUER-ISABEL SYRINGE) 3 mL 25 gauge x 1 Use for b12 injection monthly Cholecalciferol, Vitamin D3, 125 mcg (5,000 unit) cap Hold for 1 month then take once weekly Lactobacillus acidophilus (PROBIOTIC ORAL) Take by mouth. calcium carbonate (TUMS ORAL) Take by mouth as needed. Lactase (LACTAID FAST ACT) 9,000 unit chew Uses as needed conjugated estrogens (PREMARIN) vaginal cream Use 0.5 g vaginally as needed. for 3 weeks then off for 1 week REVIEW OF SYSTEMS: As in HPI. PHYSICAL EXAMINATION: BP 118/64 Pulse 69 Resp 18 Ht 5' 0 (1.52m) Wt 109 lb (49.4kg) SpO2 97% BMI 21.29 kg/(m^2). General: Elderly thin female, in no acute distress. Neck: No jugular venous distention. Lungs: Clear to auscultation bilaterally. Heart: Regular rhythm, S1, S2 normal. Extremities: No peripheral edema. Neuro: Oriented to person, place and time, alert, cooperative. CARDIOVASCULAR MEDICINE TESTING: Electrocardiogram: Normal sinus rhythm with sinus arrhythmia, LAD, heart rate 68 bpm. Echocardiogram: 09/08/2024. LVEF 65%, mild MAC. Mild MR and mild TR, mild to moderate AI. No pericardial effusion. Stress test: 09/08/2024. Rest and stress SPECT Cardiolite nuclear imaging demonstrate relative uniform tracer uptake and myocardial perfusion appearing within normal limits. LVEF 79%. No cardiac dysrhythmias pretest, during pharmacologic infusion or recovery. Type of Monitor: Extended Monitoring-[employer] Patch Enrollment Dates: 07/06/2024-07/20/2024 IRHYTHM FINDINGS: Patient had a min HR of 52 bpm, max HR of 214 bpm, and avg HR of 83 bpm. Predominant underlying rhythm was Sinus Rhythm. 76 Supraventricular Tachycardia runs occurred, the run with the fastest interval lasting 2 mins 16 secs with a max rate of 214 bpm, the longest lasting 34 mins 22 secs with an avg rate of 131 bpm. Isolated SVEs were rare (<1.0%), SVE Couplets were rare (<1.0%), and SVE Triplets were rare (<1.0%). Isolated VEs were rare (<1.0%), VE Couplets were rare (<1.0%), and no VE Triplets were present. I have personally reviewed the Electrocardiogram and Holter. ASSESSMENT/PLAN: 1. Paroxysmal SVT (supraventricular tachycardia) (HCC) - ICD9: 427.0, ICD10: I47.10 (primary diagnosis) - ECG B/O W INTERP (MED OFFICE) - SURGICAL REQUEST - ELECTIVE (04/2020) 2. Multiple sclerosis (HCC) - ICD9: 340, ICD10: G35 3. Former smoker - ICD9: V15.82, ICD10: Z87.891 4. Postural dizziness with presyncope - ICD9: 780.4, 780.2, ICD10: R42, R55 - SURGICAL REQUEST - ELECTIVE (04/2020) IMPRESSION: Ms. Romero is a 84 year old female with PMH significant for vitamin D deficiency/osteopenia, hyperlipidemia, former smoker, type 2 diabetes mellitus, multiple sclerosis, expressive aphasia who presents today to establish to the EP clinic. Patient has had recurrent presyncopal episodes and noted to have PSVT on monitor, we do not have symptom rhythm correlation of the episodes during the monitoring period. However, rates and SVT are fast and she may have 2 different arrhythmias, with a short RP tachycardia and a long RP tachycardia. PLAN AND RECOMMENDATIONS: -She remains on metoprolol XL 12.5 mg daily at this point, however still having recurrent episodes -Discussed possibility of EPS +/- ablation as she prefers this approach at this time especially in terms of discontinuing medication and continued recurrent episodes despite medication. -Educated on vagal maneuvers for termination of episodes. -She will hold metoprolol 5 days prior to the procedure. Details, risks and benefits of the procedure discussed with the patient and her . All questions answered. Return in about 6 months (around 03/25/2025). Russell Rodriguez MD documented in this encounter [facility] 09-24-2024 Note HNO ID: [id number] Author: RUSSELL RODRIGUEZ MD Service: ? Author Type: Physician Type: Progress Notes Filed: 10/01/2024 11:00 Note Text: PRIMARY CARE PHYSICIAN: Bg Chavarria [address] [id number] REFERRING PHYSICIAN: Bg Chavarria [address] [place] [id number] Patient Care Team: Bg Chavarria MD as PCP - General (Internal Medicine) Sincere Hopkins MD as Referring (Orthopedics) Sincere Hopkins MD as Home Care Provider (Orthopedics) Luis Manuel Hernandez APRN.DRAW HAND as Care Technician (Internal Medicine) Linda Silva APRN.MORTGAGE LOAN ASSISTANT as Care Technician (Internal Medicine) CHIEF COMPLAINT: SVT/presyncope HISTORY OF PRESENT ILLNESS: Ms. Romero is a 84 year old female with PMH significant for vitamin D deficiency/osteopenia, hyperlipidemia, former smoker, type 2 diabetes mellitus, multiple sclerosis, expressive aphasia who presents today to establish to the EP clinic. Patient was evaluated at outside cardiology for episodes of lightheadedness and dizziness. She reports frequent episodes of presyncope, where she would feel she was about to pass out. No episodes of syncope. She would sit or lay down and episodes would subside. Prior to her clinic visit, she had another presyncopal episode in the grocery store associated with chest pain and was evaluated by EMS. At the time revealing a normal EKG and symptoms resolved. Advised to go to the ER if any recurrence. 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 Subsequently a 14-day event monitor was ordered which showed multiple runs of SVT. Longest run was about 34 minutes along with an average heart rate of 131 bpm. Fastest event at a rate of 214 bpm. She did not however report any triggered symptoms during this evaluation to correlate rhythm. She was started on metoprolol 25 mg once daily. Since starting on metoprolol, she reports different symptoms of lightheadedness and dizziness and her who is a retired family physician felt there might have been secondary to bradycardia. She decreased her metoprolol to half tablet once daily and reports resolution of those symptoms. She however continues to have intermittent episodes of palpitations and presyncopal symptoms, indicating SVT episodes. She does report a remote episode of syncope after having similar prodromal symptoms and likely related to SVT. She remains physically active and denies any chest pain, shortness of breath with exertion, orthopnea, PND, lower extremity edema. She however continues to have joint related issues including of her back and hip and knees. She has had prior general anesthesia procedures despite diagnosis of MS and has done well without any issues. I have confirmed and edited as necessary, the PFSH and ROS obtained by others. 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 Vasquez (worse from 2011 to 2012) Low vitamin B12 level Multiple sclerosis ([facility]) 05/31/2016 Osteopenia Type 2 diabetes mellitus, without long-term current use of insulin ([facility]) 01/24/2021 PAST SURGICAL HISTORY Procedure Laterality Date ABDOMINAL SURGERY HX CATARACT EXTRACTION HX Right 04/25/2015 Cataract surgery DELIVERY ONLY , low cervical COLONOSCOPY FLX DX W/COLLJ SPEC WHEN PFRMD 07/31/2000 Colonoscopy COLONOSCOPY FLX DX W/COLLJ SPEC WHEN PFRMD 09/18/2006 COLONOSCOPY FLX DX W/COLLJ SPEC WHEN PFRMD 07/01/2012 Colonoscopy COLONOSCOPY FLX DX W/COLLJ SPEC WHEN PFRMD 04/30/2017 Colonoscopy EYE SURGERY HX HERNIA REPAIR HX JOINT REPLACEMENT HX LIG/TRNSXJ FLP TUBE ABDL/VAG APPR UNI/BI Tubal ligation PAST SURGICAL HISTORY OF 12/31/2002 lap left ing hernia PAST SURGICAL HISTORY OF 10/03/2012 bunionectomy (Dr. Araya) TONSILLECTOMY HX TONSILLECTOMY PRIMARY/SECONDARY Tonsillectomy TOTAL HIP REPLACEMENT Left 02/01/2021 TOTAL HIP REPLACEMENT Right 06/27/2023 SOCIAL HISTORY Social History Tobacco Use Smoking status: Former Current packs/day: 0.00 Types: Cigarettes Quit date: 1992 Years since quittin.0 Smokeless tobacco: Never Vaping Use Vaping status: Never Used Substance Use Topics Alcohol use: Yes Comment: GLASS OF WINE DAILY/ Intermittent Drug use: Not Currently FAMILY HISTORY Problem Relation Age of Onset Cancer Father COLON Osteoporosis Mother other (low thyroid) Mother ALLERGIES: ALLERGIES Allergen Reactions Amoxicillin Rash Clindamycin Contraindication-Medical Surgical C diff Compazine [Prochlor* Intolerance Penicillins Rash, Intolerance Rash after 4 days of antibiotic . Prochlorperazine Dystonia MEDICATIONS: meloxicam (MOBIC) 7.5 mg tablet Take 1 tablet by mouth once daily. cyanocobalamin 1,000 mcg/mL USE ONE ML INTO THE MUSCLE ONCE MONTHLY metoprolol succinate ER (TOPROL XL) 25 (more content not included)... [facility] 09-16-2024 Telephone encounter Note Spoke to patient, scheduled 09/24 - offered sooner but patient could not make it work with her schedule. Olimpia Herzog [facility] 09-16-2024 Miscellaneous Notes Spoke to patient, scheduled 09/24 - offered sooner but patient could not make it work with her schedule. Olimpia Herzog Pt called and is notified of providers results and instructions. Pt voices understanding. Pt states she is ok with going to [place] for appointment with Dr. Ramirez for electrophysiology evaluation and treatment if he can see her sooner. She states she ended up having to cut the dose of her Metoprolol in half because her BP was going low and she felt like she was going to pass out. She said right now she doesn't have a lot of symptoms, but she feels weak and is afraid to go far. [facility] Cardiology wanted her to see an engineering inspector because they though the problem was electrical and wanted to see if an ablation would fix the problem and she wouldn't have to stay on the medication. Lilly Miller RN LEFT MESSAGE FOR PATIENT TO CALL OFFICE. Okay meloxicam refills. Verify she drinks adequate fluid daily, especially on days takes meloxicam for kidney protection. Offer appointment with Dr. Ramirez in [place] for electrophysiology evaluation and treatment. He should be able to see her sooner than next January 2025. If she is fine with [place] [facility] referral, will file the consult order and reach out to him to help facilitate scheduling. Verify what her current heart symptoms are and severity so can pass that along to him. Reviewed that the 14-day event monitor (done for evaluation of syncope) had shown episodes of SVT with one episode max heart rate going up to 215bpm. Noted that [facility] cardiology did echocardiogram (some AV regurgitation note; good left ventricular ejection fraction) and stress test (no inducible ischemia). Patient calls to request a referral to electrophysiology with F. She reports that she went to see [facility] and her problem is with the electrical conduction of the heart. [facility] is recommending a referral to engineering inspector in [place] but she is not able to get in until January 2025. Patient asking if provider would be willing to place referral to see what would be available within [facility]. Not sure what to pend for this one. Also needs refill of meloxicam. Last OV: 07/28/2024 Next OV: 11/20/2024 Please review and advise, Liz Razo RN documented in this encounter [facility] [facility] Telephone encounter Note Pt called and is notified of providers results and instructions. Pt voices understanding. Pt states she is ok with going to [place] for appointment with Dr. Ramirez for electrophysiology evaluation and treatment if he can see her sooner. She states she ended up having to cut the dose of her Metoprolol in half because her BP was going low and she felt like she was going to pass out. She said right now she doesn't have a lot of symptoms, but she feels weak and is afraid to go far. [facility] Cardiology wanted her to see an engineering inspector because they though the problem was electrical and wanted to see if an ablation would fix the problem and she wouldn't have to stay on the medication. Lilly Miller RN [facility] 09-15-2024 Telephone encounter Note LEFT MESSAGE FOR PATIENT TO CALL OFFICE. [facility] 09-13-2024 Telephone encounter Note Okay meloxicam refills. Verify she drinks adequate fluid daily, especially on days takes meloxicam for kidney protection. Offer appointment with Dr. Ramirez in [place] for electrophysiology evaluation and treatment. He should be able to see her sooner than next January 2025. If she is fine with [place] [facility] referral, will file the consult order and reach out to him to help facilitate scheduling. Verify what her current heart symptoms are and severity so can pass that along to him. Reviewed that the 14-day event monitor (done for evaluation of syncope) had shown episodes of SVT with one episode max heart rate going up to 215bpm. Noted that [facility] cardiology did echocardiogram (some AV regurgitation note; good left ventricular ejection fraction) and stress test (no inducible ischemia). [facility] 09-11-2024 Telephone encounter Note Patient calls to request a referral to electrophysiology with [facility]. She reports that she went to see [facility] and her problem is with the electrical conduction of the heart. [facility] is recommending a referral to engineering inspector in [place] but she is not able to get in until January 2025. Patient asking if provider would be willing to place referral to see what would be available within [facility]. Not sure what to pend for this one. Also needs refill of meloxicam. Last OV: 07/28/2024 Next OV: 11/20/2024 Please review and advise, Liz Razo RN [facility] 09-05-2024 Telephone encounter Note Pt was last seen 07/28/24. Next appt with pcp 11/20/23. [facility] 09-05-2024 Miscellaneous Notes Pt was last seen 07/28/24. Next appt with pcp 11/20/23. Pharmacist Managed Refill Encounter Name: Tania Romero Refill authorization request(s) received and reviewed under effective consult agreement. The patient consented to the pharmacy service and agreed to allow medications to be collaboratively managed by the pharmacist. The patient may decline or cancel the agreement at any time. Upon review, it was confirmed that an active patient-provider relationship exists, and the prescriber is a participating physician under the consult agreement. Last office visit in this department: Visit date not found Last [facility] visit in this department: Visit date not found Next appointment in this department: Visit date not found Requested Prescriptions Pending Prescriptions Disp Refills cyanocobalamin 1,000 mcg/mL 3 mL 3 Sig: USE ONE ML INTO THE MUSCLE ONCE MONTHLY The medication(s) fall under category 3: Medications fail to meet 1 or more criteria (needing a physician consult and review and unclear duration of therapy) necessary for pharmacist approval, routed to provider for review. # of refills routed in this encounter: 1 # of refills approved in this encounter: 0 Dom Benavides RPh documented in this encounter [facility] 09-04-2024 Telephone encounter Note Pharmacist Managed Refill Encounter Name: Tania Romero Refill authorization request(s) received and reviewed under effective consult agreement. The patient consented to the pharmacy service and agreed to allow medications to be collaboratively managed by the pharmacist. The patient may decline or cancel the agreement at any time. Upon review, it was confirmed that an active patient-provider relationship exists, and the prescriber is a participating physician under the consult agreement. Last office visit in this department: Visit date not found Last [facility] health visit in this department: Visit date not found Next appointment in this department: Visit date not found Requested Prescriptions Pending Prescriptions Disp Refills cyanocobalamin 1,000 mcg/mL 3 mL 3 Sig: USE ONE ML INTO THE MUSCLE ONCE MONTHLY The medication(s) fall under category 3: Medications fail to meet 1 or more criteria (needing a physician consult and review and unclear duration of therapy) necessary for pharmacist approval, routed to provider for review. # of refills routed in this encounter: 1 # of refills approved in this encounter: 0 Dom Benavides RPh [facility] 07-30-2024 Telephone encounter Note OV today with Linda Reyes RN [facility] 07-30-2024 Miscellaneous Notes OV today with Linda Reyes, RN Left a message for pt to call the office and ask to speak to a nurse. Montana Esparza LPN ----- Message from Luis Manuel Lopez APRN.DRAW HAND sent at 07/28/2024 7:56 AM EDT ----- Please let her know that her preliminary Zio result shows primarily normal sinus rhythm but also had SVT episodes. This may well be cause of presyncope symptoms. Will add metoprolol succinate 25 mg daily. Rx to [facility]. She has an echocardiogram and cardiology appointment scheduled. Recommend ER for any severe or concerning symptoms. She has an OV today with Linda Silva CNP. documented in this encounter [facility] 07-30-2024 Telephone encounter Note Left a message for pt to call the office and ask to speak to a nurse. Montana Esparza LPN [facility] 07-30-2024 Telephone encounter Note ----- Message from Luis Manuel Lopez APRN.DRAW HAND sent at 07/28/2024 7:56 AM EDT ----- Please let her know that her preliminary Zio result shows primarily normal sinus rhythm but also had SVT episodes. This may well be cause of presyncope symptoms. Will add metoprolol succinate 25 mg daily. Rx to [facility]. She has an echocardiogram and cardiology appointment scheduled. Recommend ER for any severe or concerning symptoms. She has an OV today with Linda Silva CNP. [facility] 07-28-2024 Telephone encounter Note Seen in office today and discussed. [facility] 07-28-2024 Miscellaneous Notes Seen in office today and discussed. I was paged for a critical result related to Zio patch by [employer] with reported episode of SVT at 189 bpm for 60 seconds on 07/12/24 at 8:35am page 9 strip 5. This was the only critical result and results will be posted within the next 30 minutes. I will forward this result to PCP team to review and discuss addition of AV asaf blocking drugs with patient for paroxysmal SVT. documented in this encounter [facility] 07-28-2024 Note HNO ID: [id number] Author: LINDA SILVA APRN.SEEMA Service: ? Author Type: Nurse Practitioner Type: Progress Notes Filed: 07/28/2024 12:05 Note Text: SUBJECTIVE Tania Romero is a 83 year old female here today for a check up on her medical problems. Chief Complaint Patient presents with: Recheck HPI Tania Romero is a 83 year old female. She is an established patient of [facility] Chavarria MD. Here today for follow up. Still following with ortho, s/p right hip replacement. Labs show stable DM. Was recently seen with Luis Manuel. Had some dizziness issues. Set up with ZIO monitoring, Stress ECHO ordered and labs. Planning to do this with [facility]. Consulted to cardiology. Planning to see cardiology with [facility] in July. Recent zio showed few episodes of SVT. Started on metoprolol. Her medications were reviewed today and her list is now up to date. Medications Current Outpatient Medications Medication Sig alendronate (FOSAMAX) 70 mg tablet Take 1 tablet by mouth one time a week. Take with a full glass of water, on an empty stomach; do NOT lie down for 30minutes. metFORMIN ER (GLUCOPHAGE XR) 500 mg 24 hr tablet Take 1 tablet by mouth daily with breakfast. meloxicam (MOBIC) 7.5 mg tablet Take 1 tablet by mouth once daily. cyanocobalamin 1,000 mcg/mL USE ONE ML INTO THE MUSCLE ONCE MONTHLY Cholecalciferol, Vitamin D3, 125 mcg (5,000 unit) cap Hold for 1 month then take once weekly Lactobacillus acidophilus (PROBIOTIC ORAL) Take by mouth. calcium carbonate (TUMS ORAL) Take by mouth as needed. Lactase (LACTAID FAST ACT) 9,000 unit chew Uses as needed conjugated estrogens (PREMARIN) vaginal cream Use 0.5 g vaginally as needed. for 3 weeks then off for 1 week metoprolol succinate ER (TOPROL XL) 25 mg 24 hr tablet Take 1 tablet by mouth once daily. Syringe with Needle, Disp, (BD LUER-ISABEL SYRINGE) 3 mL 25 gauge x 1 Use for b12 injection monthly No current facility-administered medications for this visit. ALLERGIES Allergen Reactions Amoxicillin Rash Clindamycin Contraindication-Medical Surgical C diff Compazine [Prochlor* Intolerance Penicillins Rash, Intolerance Rash after 4 days of antibiotic . Prochlorperazine Dystonia ACTIVE PROBLEM LIST Paroxysmal Svt (Supraventricular Tachycardia) ([facility]) - 07/28/2024 Status Post Hip Replacement, Right - 07/24/2023 Status Post Right Hip Replacement - 07/04/2023 Former Smoker - 06/26/2023 Si (Sacroiliac) Joint Inflammation ([facility]) - 06/24/2023 Trochanteric Bursitis of Right Hip - 02/08/2023 Vitamin D Deficiency - 03/04/2022 Elevated Ldl Cholesterol Level - 03/04/2022 Colon Cancer Screening - 03/04/2022 Type 2 Diabetes Mellitus, Without Long-Term Current Use of Insulin ([facility]) - 01/24/2021 Gerd (Gastroesophageal Reflux Disease) - 01/24/2021 Abnormal Ekg - 01/24/2021 Primary Osteoarthritis of Both Hips - 06/07/2020 Chronic Midline Low Back Pain Without Sciatica - 04/29/2019 Comment: Doing better with exercises; had PT Osteopenia Abnormality of Gait - 06/21/2016 Multiple Sclerosis ([facility]) - 05/31/2016 Low Vitamin B12 Level Family History of Malignant Neoplasm of Gastrointestinal Tract - 05/06/2012 Comment: father Social History Tobacco Use Smoking status: Former Current packs/day: 0.00 Types: Cigarettes Quit date: 1992 Years since quittin.8 Smokeless tobacco: Never Vaping Use Vaping status: Never Used Substance Use Topics Alcohol use: Yes Comment: GLASS OF WINE DAILY/ Intermittent Drug use: Not Currently Review of Systems Respiratory: Negative. Cardiovascular: Negative. Neurological: Positive for dizziness. OBJECTIVE BP 128/76 Pulse 75 Wt 109 lb 5.6 oz (49.6kg) SpO2 95% Physical Exam Vitals and nursing note reviewed. Constitutional: General: She is awake. She is not in acute distress. Appearance: Normal appearance. She is well-developed and well-groomed. She is not ill-appearing, toxic-appearing or diaphoretic. HENT: Head: Normocephalic. Right Ear: External ear normal. Left Ear: External ear normal. Nose: Nose normal. Eyes: General: Vision grossly intact. Conjunctiva/sclera: Conjunctivae normal. Pupils: Pupils are equal, round, and reactive to light. Neck: Vascular: No JVD. Trachea: Trachea normal. Cardiovascular: Rate and Rhythm: Normal rate and regular rhythm. Pulses: Normal pulses. Heart sounds: Normal heart sounds. No murmur heard. Pulmonary: Effort: Pulmonary effort is normal. No accessory muscle usage, prolonged expiration or respiratory distress. Breath sounds: Normal breath sounds. Musculoskeletal: Cervical back: Neck supple. Skin: General: Skin is warm and dry. Capillary Refill: Capillary refill takes less than 2 seconds. Neurological: General: No focal deficit present. Mental Status: She is alert and oriented to person, place, and time. Mental status is at baseline. Psychiatric: Attention and Perception: (more content not included)... [facility] 07-28-2024 History of Present illness Narrative SUBJECTIVE Tania Romero is a 83 year old female here today for a check up on her medical problems. Chief Complaint Patient presents with: Recheck HPI Tania Romero is a 83 year old female. She is an established patient of [facility] Ch[facility]arria MD. Here today for follow up. Still following with ortho, s/p right hip replacement. Labs show stable DM. Was recently seen with Luis Manuel. Had some dizziness issues. Set up with ZIO monitoring, Stress ECHO ordered and labs. Planning to do this with [facility]. Consulted to cardiology. Planning to see cardiology with [facility] in July. Recent zio showed few episodes of SVT. Started on metoprolol. Her medications were reviewed today and her list is now up to date. Medications Current Outpatient Medications Medication Sig alendronate (FOSAMAX) 70 mg tablet Take 1 tablet by mouth one time a week. Take with a full glass of water, on an empty stomach; do NOT lie down for 30minutes. metFORMIN ER (GLUCOPHAGE XR) 500 mg 24 hr tablet Take 1 tablet by mouth daily with breakfast. meloxicam (MOBIC) 7.5 mg tablet Take 1 tablet by mouth once daily. cyanocobalamin 1,000 mcg/mL USE ONE ML INTO THE MUSCLE ONCE MONTHLY Cholecalciferol, Vitamin D3, 125 mcg (5,000 unit) cap Hold for 1 month then take once weekly Lactobacillus acidophilus (PROBIOTIC ORAL) Take by mouth. calcium carbonate (TUMS ORAL) Take by mouth as needed. Lactase (LACTAID FAST ACT) 9,000 unit chew Uses as needed conjugated estrogens (PREMARIN) vaginal cream Use 0.5 g vaginally as needed. for 3 weeks then off for 1 week metoprolol succinate ER (TOPROL XL) 25 mg 24 hr tablet Take 1 tablet by mouth once daily. Syringe with Needle, Disp, (BD LUER-ISABEL SYRINGE) 3 mL 25 gauge x 1 Use for b12 injection monthly No current facility-administered medications for this visit. ALLERGIES Allergen Reactions Amoxicillin Rash Clindamycin Contraindication-Medical Surgical C diff Compazine [Prochlor* Intolerance Penicillins Rash, Intolerance Rash after 4 days of antibiotic . Prochlorperazine Dystonia ACTIVE PROBLEM LIST Paroxysmal Svt (Supraventricular Tachycardia) ([facility]) - 07/28/2024 Status Post Hip Replacement, Right - 07/24/2023 Status Post Right Hip Replacement - 07/04/2023 Former Smoker - 06/26/2023 Si (Sacroiliac) Joint Inflammation ([facility]) - 06/24/2023 Trochanteric Bursitis of Right Hip - 02/08/2023 Vitamin D Deficiency - 03/04/2022 Elevated Ldl Cholesterol Level - 03/04/2022 Colon Cancer Screening - 03/04/2022 Type 2 Diabetes Mellitus, Without Long-Term Current Use of Insulin ([facility]) - 01/24/2021 Gerd (Gastroesophageal Reflux Disease) - 01/24/2021 Abnormal Ekg - 01/24/2021 Primary Osteoarthritis of Both Hips - 06/07/2020 Chronic Midline Low Back Pain Without Sciatica - 04/29/2019 Comment: Doing better with exercises; had PT Osteopenia Abnormality of Gait - 06/21/2016 Multiple Sclerosis ([facility]) - 05/31/2016 Low Vitamin B12 Level Family History of Malignant Neoplasm of Gastrointestinal Tract - 05/06/2012 Comment: father Social History Tobacco Use Smoking status: Former Current packs/day: 0.00 Types: Cigarettes Quit date: 1992 Years since quittin.8 Smokeless tobacco: Never Vaping Use Vaping status: Never Used Substance Use Topics Alcohol use: Yes Comment: GLASS OF WINE DAILY/ Intermittent Drug use: Not Currently Review of Systems Respiratory: Negative. Cardiovascular: Negative. Neurological: Positive for dizziness. OBJECTIVE BP 128/76 Pulse 75 Wt 109 lb 5.6 oz (49.6kg) SpO2 95% Physical Exam Vitals and nursing note reviewed. Constitutional: General: She is awake. She is not in acute distress. Appearance: Normal appearance. She is well-developed and well-groomed. She is not ill-appearing, toxic-appearing or diaphoretic. HENT: Head: Normocephalic. Right Ear: External ear normal. Left Ear: External ear normal. Nose: Nose normal. Eyes: General: Vision grossly intact. Conjunctiva/sclera: Conjunctivae normal. Pupils: Pupils are equal, round, and reactive to light. Neck: Vascular: No JVD. Trachea: Trachea normal. Cardiovascular: Rate and Rhythm: Normal rate and regular rhythm. Pulses: Normal pulses. Heart sounds: Normal heart sounds. No murmur heard. Pulmonary: Effort: Pulmonary effort is normal. No accessory muscle usage, prolonged expiration or respiratory distress. Breath sounds: Normal breath sounds. Musculoskeletal: Cervical back: Neck supple. Skin: General: Skin is warm and dry. Capillary Refill: Capillary refill takes less than 2 seconds. Neurological: General: No focal deficit present. Mental Status: She is alert and oriented to person, place, and time. Mental status is at baseline. Psychiatric: Attention and Perception: Attention and perception normal. Mood and Affect: Mood and affect normal. Speech: Speech normal. Behavior: Behavior normal. Behavior is cooperative. Thought Content: Thought content normal. Cognition and Memory: Cognition and memory normal. Judgment: Judgment normal. ASSESSMENT/PLAN: 1. Paroxysmal SVT (supraventricular tachycardia) (HCC) - ICD9: 427.0, ICD10: I47.10 (primary diagnosis) Started on metoprolol and scheduled with cardiology. - METOPROLOL SUCCINATE ER 25 MG TABLET,EXTENDED RELEASE 24 HR 2. Postural dizziness with presyncope - ICD9: 780.4, 780.2, ICD10: R42, R55 Likely secondary to her SVT. 3. Type 2 diabetes mellitus with other specified complication, without long-term current use of insulin (HCC) - ICD9: 250.80, ICD10: E11.69 - Controlled - Continue current medications - Counseled on healthy diet and regular exercise - Discussed need for and benefit of weight loss. BMI 21.36 kg/(m^2) 4. Primary osteoarthritis of both hips - ICD9: 715.15, ICD10: M16.0 Stable. Following with ortho. 5. Screening for depression - ICD9: V79.0, ICD10: Z13.31 - DEPRESSION SCREENING 6. Encounter for screening examination for other mental health and behavioral disorders - ICD9: V79.8, ICD10: Z13.39 - ANXIETY SCREENING Portions of this note have been entered by ancillary staff. I have reviewed and when necessary edited, so that they are an adequate record of my encounter with this patient Please note that parts of this document were created using voice recognition software and therefore may contain grammatical errors. Patient verbalizes understanding of instructions from today's visit and in agreement with treatment plan. Questions answered. Agrees to call the office if questions, concerns of issues with acute symptoms not improving or if they worsen. See diagnoses and orders for additional plan(s). Allergies and medications were reviewed, list was updated, and refills given if needed. Past medical, surgical, social, and family history reviewed and updated as appropriate. Encouraged proper diet & exercise as well as compliance with taking medications. Age-appropriate health preventative measures were discussed. Return if symptoms worsen or fail to improve, for Keep next scheduled appointment.. Linda Silva APRN-SEEMA documented in this encounter [facility] 07-27-2024 Telephone encounter Note I was paged for a critical result related to Zio patch by [employer] with reported episode of SVT at 189 bpm for 60 seconds on 07/12/24 at 8:35am page 9 strip 5. This was the only critical result and results will be posted within the next 30 minutes. I will forward this result to PCP team to review and discuss addition of AV asaf blocking drugs with patient for paroxysmal SVT. [facility] Work Phone: 07-13-2024 History of Present illness Narrative Orthopaedic Office Note: History/Subjective: Tania Romero is a 83 year old female who presents for 1 year follow up for their R MERLE. Patient is doing well. Pain is minimal at this point. She is back to most of activities that she previously enjoyed. Denies any traumas or falls denies any signs of infection denies any fevers or chills. Imaging: X-ray of the hip -This shows a well-fixed cementless total hip arthroplasty components with no signs of loosening or lucencies in the acetabular femoral component. There is no subsidence. The ball is concentrically inside established failure. Physical Examination: Exam shows incision is well-healed with no signs of dehiscence erythema or fluctuance. Motion is 0 to 100 degrees with flexion and 10 degrees of internal rotation 20 degrees of external rotation. Motor is 5/5 DF PF EHL and KE sensation is intact over the peripheral nerve distribution Assessment and Plan: Patient is now 6 months out from MERLE and doing well -Reminded on dental prophylaxis -Continue activities and weightbearing as tolerated -May take over the counter pain medication as needed -Follow-up in clinic in 1 year with repeat x-rays I spent a total of approximately 15 minutes on the date of the service which included preparing to see the patient, [id number] patient care, completing clinical documentation, obtaining and/or reviewing separately obtained history, performing a medically appropriate examination, counseling and educating the patient/family/caregiver, and care coordination (not separately reported). Sincere Hopkins MD Associate Staff Physician [facility] Department of Orthopedic Surgery documented in this encounter [facility] 07-13-2024 Note HNO ID: [id number] Author: SINCERE HOPKINS MD Service: ? Author Type: Physician Type: Progress Notes Filed: 07/13/2024 10:37 Note Text: Orthopaedic Office Note: History/Subjective: Tania Romero is a 83 year old female who presents for 1 year follow up for their R MERLE. Patient is doing well. Pain is minimal at this point. She is back to most of activities that she previously enjoyed. Denies any traumas or falls denies any signs of infection denies any fevers or chills. Imaging: X-ray of the hip -This shows a well-fixed cementless total hip arthroplasty components with no signs of loosening or lucencies in the acetabular femoral component. There is no subsidence. The ball is concentrically inside established failure. Physical Examination: Exam shows incision is well-healed with no signs of dehiscence erythema or fluctuance. Motion is 0 to 100 degrees with flexion and 10 degrees of internal rotation 20 degrees of external rotation. Motor is 5/5 DF PF EHL and KE sensation is intact over the peripheral nerve distribution Assessment and Plan: Patient is now 6 months out from MERLE and doing well -Reminded on dental prophylaxis -Continue activities and weightbearing as tolerated -May take over the counter pain medication as needed -Follow-up in clinic in 1 year with repeat x-rays I spent a total of approximately 15 minutes on the date of the service which included preparing to see the patient, [id number] patient care, completing clinical documentation, obtaining and/or reviewing separately obtained history, performing a medically appropriate examination, counseling and educating the patient/family/caregiver, and care coordination (not separately reported). Sincere Hopkins MD Associate Staff Physician [facility] Department of Orthopedic Surgery [facility] 07-13-2024 History of Present illness Narrative Radiology Service Progress Note PATIENT NAME: Tania Romero DATE OF SERVICE: July 13, 2024 TIME: 10:29 AM PATIENT IDENTITY VERIFICATION COMPLETED USING TWO (2) IDENTIFIERS: Name and Date of confirmed by patient verbally. FALL SCREENING: Has the patient had 2 falls in the last year or 1 fall with injury or currently using an Ambulatory Assistive Device (Walker, Cane, Wheelchair, Crutches, etc.)? No PATIENT GENDER DATA: Female. status: : No status: NO. PATIENT RELEVANT IMPLANT DATA REVIEWED: Not Applicable PATIENT PRESENTS WITH AN IMPLANTABLE OR ATTACHED DIETARY AIDE TEACHER: No RADIOLOGY DEPARTMENT: General X-ray: Exam(s) Completed: Pelvis X-Ray: Pelvis with Hip Right and Wt. Bearing PERIPHERAL IV DATA: Not applicable SIGNED BY: Jonah Jennings July 13, 2024 10:29 AM documented in this encounter [facility] 07-13-2024 Note HNO ID: [id number] Author: [place] [facility] Tech Service: ? Author Type: Mechanical Laboratory Technician Type: Progress Notes Filed: 07/13/2024 10:30 Note Text: Radiology Service Progress Note PATIENT NAME: Tania Romero DATE OF SERVICE: July 13, 2024 TIME: 10:29 AM PATIENT IDENTITY VERIFICATION COMPLETED USING TWO (2) IDENTIFIERS: Name and Date of confirmed by patient verbally. FALL SCREENING: Has the patient had 2 falls in the last year or 1 fall with injury or currently using an Ambulatory Assistive Device (Walker, Cane, Wheelchair, Crutches, etc.)? No PATIENT GENDER DATA: Female. status: : No status: NO. PATIENT RELEVANT IMPLANT DATA REVIEWED: Not Applicable PATIENT PRESENTS WITH AN IMPLANTABLE OR ATTACHED DIETARY AIDE TEACHER: No RADIOLOGY DEPARTMENT: General X-ray: Exam(s) Completed: Pelvis X-Ray: Pelvis with Hip Right and Wt. Bearing PERIPHERAL IV DATA: Not applicable SIGNED BY: Jonah Jennings July 13, 2024 10:29 AM [facility] 07-06-2024 Nurse Note EVENT MONITOR DISPOSABLE PATCH INSTRUCTIONS Patient Name: Tania Romero Clinic Number: [id number] Skin prepped and cleansed with alcohol Patch secured to prepped area Monitor Activated Serial #: [id number] Patient Instructed: Prescribed order timeframe Bathing guidelines Usage of event button and diary documentation Return of monitor at the end of prescribed order Call with problems [phone] or [phone]. [phone] Patient expresses a good understanding of instructions Ava Peterson LPN [facility] 07-06-2024 Nurse Note EVENT MONITOR DISPOSABLE PATCH INSTRUCTIONS Patient Name: Tania Romero Clinic Number: [id number] Skin prepped and cleansed with alcohol Patch secured to prepped area Monitor Activated Serial #: [id number] Patient Instructed: Prescribed order timeframe Bathing guidelines Usage of event button and diary documentation Return of monitor at the end of prescribed order Call with problems [phone] or [phone]. [phone] Patient expresses a good understanding of instructions Ava Peterson LPN documented in this encounter [facility] 07-06-2024 History of Present illness Narrative SUBJECTIVE: Depression Screening Never done Anxiety Screening Never done HPI Tania Romero is a 83 year old female. PMH signficant for ACTIVE PROBLEM LIST Family History of Malignant Neoplasm of Gastrointestinal Tract Low Vitamin B12 Level Multiple Sclerosis (Hcc) Abnormality of Gait Osteopenia Chronic Midline Low Back Pain Without Sciatica Primary Osteoarthritis of Both Hips Type 2 Diabetes Mellitus, Without Long-Term Current Use of Insulin (Hcc) Gerd (Gastroesophageal Reflux Disease) Abnormal Ekg Vitamin D Deficiency Elevated Ldl Cholesterol Level Colon Cancer Screening Trochanteric Bursitis of Right Hip Si (Sacroiliac) Joint Inflammation (Hcc) Former Smoker Status Post Right Hip Replacement Status Post Hip Replacement, Right Presents today for report of presyncope which has occurred several times since last seen n office. She sent a message to the office on May 09, 2024 reporting feeling lightheaded while grocery shopping with upper chest pain. She reported squad was called and revealed normal EKG and symptoms resolved. She requested a visit as soon as possible. She was offered a same-day appointment but came into the clinic 9 days later as she had company. She was advised to go to ER if any recurrence. She was seen by Bg Chavarria MD May 18. At this visit she reported another episode of near syncope at a [employer] since her last visit, did not seek care at this time. PCP notes that initial EKG per EMS with first episode showed AF, but subsequent EKG NSR. She noted family history of heart disease requiring surgery and low blood pressure. She recommended additional workup if episodes persist including heart monitor. Advised use for instructed to monitor heart rate during episodes. Advised to maintain hydration and increase sodium intake. Seen by [facility] for preoperative evaluation 2020, stress test was negative for ischemia. TTE with normal LVEF and no significant valvular abnormalities. Today reports now that presyncopal episodes have happened a few times since last here. Can happen at rest and with activity. Notes if she rests or sets her head down quickly when occurs it passes in seconds. If not able to rest right away then gets throat tightness, shortness of breath, not sure if associated palpitations. She notes recently happened [place], symptoms past with lying down. She notes trying to maintain hydration which does seem to help somewhat. Home BP/HR: no recent checks.Did not get a fitness tracker. Currently following with [facility]: only for pre-operative clearance 2020, no recent follow up HTN: Without report of headache, palpitations, peripheral edema, orthopnea, fatigue, and PND. No syncope, only pre-syncope. Last 14 Encounter BP Readings: Date: BP: 07/06/2024 133/74 05/18/2024 134/68 03/31/2024 144/80 03/24/2024 110/70 11/18/2023 112/74 07/15/2023 123/78 06/30/2023 159/86 06/27/2023 101/56 06/21/2023 88/53 06/20/2023 148/70 06/06/2023 102/45 05/03/2023 122/68 03/15/2023 112/62 02/04/2023 114/64 Notes no recent MS flare symptoms. Neurologist: Previously followed at [facility], Dr Andrea Dobbins. No current neurologist no recent visit. Last MRI 2018: IMPRESSION: Multiple intracranial white matter lesions compatible with multiple sclerosis. No new T2 lesions and no new enhancing lesions. Mild parenchymal volume loss. Other significant findings: None. DIABETES MELLITUS: Without report of excessive thirst or increased frequency of urination, chest pain or dyspnea , numbness, tingling or pain in extremities, new or unusual visual symptoms, low sugar/hypoglycemic reactions, weight loss/gain, lightheadedness/dizziness and bowel changes/loose stools. Patient's last HgA1C was Hemoglobin A1C (%) Date Value 03/11/2024 6.5 06/21/2023 6.8 06/27/2021 6.9 10/17/2020 6.2 Hemoglobin A1C (POCT) (%) Date Value 11/18/2023 6.6 11/09/2022 6.3 Review of Systems Constitutional: Negative. Respiratory: Positive for chest tightness (throat tightness) and shortness of breath. Cardiovascular: Negative. Endocrine: Negative. Objective BP 133/74 Pulse 71 Resp 16 Wt 49.6 kg (109 lb 5.6 oz) SpO2 97% BMI 21.36 kg/m Physical Exam Vitals and nursing note reviewed. Constitutional: Appearance: Normal appearance. HENT: Head: Normocephalic and atraumatic. Eyes: Conjunctiva/sclera: Conjunctivae normal. Neck: Thyroid: No thyromegaly. Vascular: Normal carotid pulses. No JVD. Cardiovascular: Rate and Rhythm: Normal rate and regular rhythm. Pulses: Normal pulses. Carotid pulses are 2+ on the right side and 2+ on the left side. Radial pulses are 2+ on the right side and 2+ on the left side. Heart sounds: Normal heart sounds. Pulmonary: Effort: Pulmonary effort is normal. Abdominal: General: Bowel sounds are normal. Palpations: Abdomen is soft. Musculoskeletal: Right lower leg: No edema. Left lower leg: No edema. Feet: Right foot: Protective Sensation: 10 sites tested. 10 sites sensed. Left foot: Protective Sensation: 10 sites tested. 10 sites sensed. Skin: General: Skin is warm and dry. Neurological: General: No focal deficit present. Mental Status: She is alert and oriented to person, place, and time. ALLERGIES Allergen Reactions Amoxicillin Rash Clindamycin Contraindication-Medical Surgical C diff Compazine [Prochlor* Intolerance Penicillins Rash, Intolerance Rash after 4 days of antibiotic . Prochlorperazine Dystonia MEDICATIONS: alendronate (FOSAMAX) 70 mg tablet Take 1 tablet by mouth one time a week. Take with a full glass of water, on an empty stomach; do NOT lie down for 30minutes. metFORMIN ER (GLUCOPHAGE XR) 500 mg 24 hr tablet Take 1 tablet by mouth daily with breakfast. meloxicam (MOBIC) 7.5 mg tablet Take 1 tablet by mouth once daily. Syringe with Needle, Disp, (BD LUER-ISABEL SYRINGE) 3 mL 25 gauge x 1 Use for b12 injection monthly cyanocobalamin 1,000 mcg/mL USE ONE ML INTO THE MUSCLE ONCE MONTHLY Cholecalciferol, Vitamin D3, 125 mcg (5,000 unit) cap Hold for 1 month then take once weekly Lactobacillus acidophilus (PROBIOTIC ORAL) Take by mouth. calcium carbonate (TUMS ORAL) Take by mouth as needed. Lactase (LACTAID FAST ACT) 9,000 unit chew Uses as needed conjugated estrogens (PREMARIN) vaginal cream Use 0.5 g vaginally as needed. for 3 weeks then off for 1 week PAST MEDICAL HISTORY Diagnosis Date Arthritis DJD (degenerative joint disease) of hip Left--Dr. Vasquez (worse from 2011 to 2012) Low vitamin B12 level Multiple sclerosis (HCC) 05/31/2016 Osteopenia Type 2 diabetes mellitus, without long-term current use of insulin ([facility]) 01/24/2021 Social History Tobacco Use Smoking status: Former Current packs/day: 0.00 Types: Cigarettes Quit date: 1992 Years since quittin.7 Smokeless tobacco: Never Vaping Use Vaping status: Never Used Substance Use Topics Alcohol use: Yes Comment: GLASS OF WINE DAILY/ Intermittent Drug use: Not Currently Component Latest Ref Rng & Units 06/21/2023 07/02/2023 07/08/2023 WBC 3.70 - 11.00 k/uL 8.83 10.71 RBC 3.90 - 5.20 m/uL 3.80 (L) 2.80 (L) Hemoglobin 11.5 - 15.5 g/dL 10.7 (L) 8.2 (L) Hematocrit 36.0 - 46.0 % 32.8 (L) 25.8 (L) MCV 80.0 - 100.0 fL 86.3 92.1 MCH 26.0 - 34.0 pg 28.2 29.3 MCHC 30.5 - 36.0 g/dL 32.6 31.8 RDW-CV 11.5 - 15.0 % 14.2 15.1 (H) Platelet Count 150 - 400 k/uL 380 312 MPV 9.0 - 12.7 fL 8.3 (L) 9.0 Neut% % 75.3 Abs Neut (ANC) 1.45 - 7.50 k/uL 6.64 Lymph% % 11.3 Abs Lymph 1.00 - 4.00 k/uL 1.00 [place]% % 9.3 Abs [place] <0.87 k/uL 0.82 Eosin% % 3.6 Abs Eosin <0.46 k/uL 0.32 Baso% % 0.2 Abs Baso <0.11 k/uL <0.03 Immature Gran % % 0.3 IMMATURE GRANS (ABS) <0.10 k/uL 0.03 NRBC /100 WBC 0.0 Absolute nRBC <0.01 k/uL <0.01 DTYPE Auto Protein, Total 6.3 - 8.0 g/dL 6.6 Albumin 3.9 - 4.9 g/dL 3.8 (L) Calcium 8.5 - 10.2 mg/dL 9.1 8.3 (L) Bilirubin, Total 0.2 - 1.3 mg/dL 0.2 Alkaline Phosphatase 34 - 123 U/L 178 (H) AST 13 - 35 U/L 23 ALT 7 - 38 U/L 23 Glucose 74 - 99 mg/dL 132 (H) 100 (H) BUN 7 - 21 mg/dL 32 (H) 16 Creatinine 0.58 - 0.96 mg/dL 0.92 0.71 Sodium 136 - 144 mmol/L 137 140 Potassium 3.7 - 5.1 mmol/L 5.0 4.0 Chloride 97 - 105 mmol/L 100 106 (H) CO2 22 - 30 mmol/L 28 27 Anion Gap 9 - 18 mmol/L 9 7 (L) eGFR >=60 mL/min/1.73m 63 86 Hemoglobin A1C 4.3 - 5.6 % 6.8 (H) Estimated Average Glucose mg/dL 148 Glucose, Point of Care 74 - 99 mg/dL 110 (A) ASSESSMENT/PLAN: 1. Postural dizziness with presyncope - ICD9: 780.4, 780.2, ICD10: R42, R55 (primary diagnosis) She notes sensation of blood rushing from her head which happens at rest and with exertion associated with shortness of breath and throat tightness. This has happened several times since she was last here.Sensation that she is going to pass out but does not with lying down and resting. Risk factors heart disease: She is a former smoker with type 2 diabetes elevated cholesterol postmenopausal with MS. - ECG COMPLETE - OUTSIDE VENDOR CARDIAC OUTPATIENT EXTENDED RHYTHM RECORDING (WITHOUT TELEMETRY) - COMPLETE BLOOD COUNT AND DIFFERENTIAL - COMPREHENSIVE METABOLIC PANEL - THYROID STIMULATING HORMONE - HEMOGLOBIN A1C - STRESS ECHO TREADMILL - PERFLUTREN LIPID MICROSPHERES 1.1 MG/ML INJECTION IN NS 10 ML - SODIUM CHLORIDE 0.9 % (FLUSH) INJECTION SYRINGE - CONSULT TO CARDIOLOGY 2. SOB (shortness of breath) - ICD9: 786.05, ICD10: R06.02 - STRESS ECHO TREADMILL - CONSULT TO CARDIOLOGY 3. Throat tightness - ICD9: 784.99, ICD10: R09.89 - STRESS ECHO TREADMILL - CONSULT TO CARDIOLOGY 4. Former smoker - ICD9: V15.82, ICD10: Z87.891 - STRESS ECHO TREADMILL - PERFLUTREN LIPID MICROSPHERES 1.1 MG/ML INJECTION IN NS 10 ML - SODIUM CHLORIDE 0.9 % (FLUSH) INJECTION SYRINGE - CONSULT TO CARDIOLOGY 5. Abnormal EKG - ICD9: 794.31, ICD10: R94.31 - STRESS ECHO TREADMILL - PERFLUTREN LIPID MICROSPHERES 1.1 MG/ML INJECTION IN NS 10 ML - SODIUM CHLORIDE 0.9 % (FLUSH) INJECTION SYRINGE - CONSULT TO CARDIOLOGY 6. Type 2 diabetes mellitus with other specified complication, without long-term current use of insulin (HCC) - ICD9: 250.80, ICD10: E11.69 controlled - Continue current medications - STRESS ECHO TREADMILL - PERFLUTREN LIPID MICROSPHERES 1.1 MG/ML INJECTION IN NS 10 ML - SODIUM CHLORIDE 0.9 % (FLUSH) INJECTION SYRINGE - CONSULT TO CARDIOLOGY 7. Elevated LDL cholesterol level - ICD9: 272.0, ICD10: E78.00 Recommend a plant based diet such as Mediterranean diet with plenty of vegetables, fruits,whole grains, fish, chicken, turkey or plant proteins and routine exercise such as walking - STRESS ECHO TREADMILL - PERFLUTREN LIPID MICROSPHERES 1.1 MG/ML INJECTION IN NS 10 ML - SODIUM CHLORIDE 0.9 % (FLUSH) INJECTION SYRINGE - CONSULT TO CARDIOLOGY 8. Abnormal finding of blood chemistry, unspecified - ICD9: 790.6, ICD10: R79.9 - HEMOGLOBIN A1C EKG and Zio in the office today. Labs today. Schedule stress test. Schedule appointment with cardiology, prefers [facility] ER for any severe concerning symptoms. For now recommend wear compression socks or stockings when sitting or standing for prolonged periods of time, get 64 ounces of fluid daily with 8 ounces of a sports drink such as Gatorade, broth or Pedialyte, elevate your feet when seated. Luis Manuel Hernandez APRN.CNS Medical Decision Making: Problems: Moderate: 1+ chronic illnesses with change Data: Unique test(s) ordered: 3+ Risk: Moderate: Drug management Medical Decision Making Level: 4 - Moderate documented in this encounter [facility] 07-06-2024 Note HNO ID: [id number] Author: LUIS MANUEL HERNANDEZ APRN.CNS Service: ? Author Type: Nurse Specialist Type: Progress Notes Filed: 07/28/2024 07:57 Note Text: SUBJECTIVE: Depression Screening Never done Anxiety Screening Never done HPI Tania Romero is a 83 year old female. PMH signficant for ACTIVE PROBLEM LIST Family History of Malignant Neoplasm of Gastrointestinal Tract Low Vitamin B12 Level Multiple Sclerosis (Hcc) Abnormality of Gait Osteopenia Chronic Midline Low Back Pain Without Sciatica Primary Osteoarthritis of Both Hips Type 2 Diabetes Mellitus, Without Long-Term Current Use of Insulin (Hcc) Gerd (Gastroesophageal Reflux Disease) Abnormal Ekg Vitamin D Deficiency Elevated Ldl Cholesterol Level Colon Cancer Screening Trochanteric Bursitis of Right Hip Si (Sacroiliac) Joint Inflammation (Hcc) Former Smoker Status Post Right Hip Replacement Status Post Hip Replacement, Right Presents today for report of presyncope which has occurred several times since last seen n office. She sent a message to the office on May 09, 2024 reporting feeling lightheaded while grocery shopping with upper chest pain. She reported squad was called and revealed normal EKG and symptoms resolved. She requested a visit as soon as possible. She was offered a same-day appointment but came into the clinic 9 days later as she had company. She was advised to go to ER if any recurrence. She was seen by Bg Chavarria MD May 18. At this visit she reported another episode of near syncope at a [employer] since her last visit, did not seek care at this time. PCP notes that initial EKG per EMS with first episode showed AF, but subsequent EKG NSR. She noted family history of heart disease requiring surgery and low blood pressure. She recommended additional workup if episodes persist including heart monitor. Advised use for instructed to monitor heart rate during episodes. Advised to maintain hydration and increase sodium intake. Seen by [facility] for preoperative evaluation 2020, stress test was negative for ischemia. TTE with normal LVEF and no significant valvular abnormalities. Today reports now that presyncopal episodes have happened a few times since last here. Can happen at rest and with activity. Notes if she rests or sets her head down quickly when occurs it passes in seconds. If not able to rest right away then gets throat tightness, shortness of breath, not sure if associated palpitations. She notes recently happened at her local store, symptoms past with lying down. She notes trying to maintain hydration which does seem to help somewhat. Home BP/HR: no recent checks.Did not get a fitness tracker. Currently following with [facility]: only for pre-operative clearance 2020, no recent follow up HTN: Without report of headache, palpitations, peripheral edema, orthopnea, fatigue, and PND. No syncope, only pre-syncope. Last 14 Encounter BP Readings: Date: BP: 07/06/2024 133/74 05/18/2024 134/68 03/31/2024 144/80 03/24/2024 110/70 11/18/2023 112/74 07/15/2023 123/78 06/30/2023 159/86 06/27/2023 101/56 06/21/2023 88/53 06/20/2023 148/70 06/06/2023 102/45 05/03/2023 122/68 03/15/2023 112/62 02/04/2023 114/64 Notes no recent MS flare symptoms. Neurologist: Previously followed at [facility], Dr Andrea Dobbins. No current neurologist no recent visit. Last MRI 2018: IMPRESSION: Multiple intracranial white matter lesions compatible with multiple sclerosis. No new T2 lesions and no new enhancing lesions. Mild parenchymal volume loss. Other significant findings: None. DIABETES MELLITUS: Without report of excessive thirst or increased frequency of urination, chest pain or dyspnea , numbness, tingling or pain in extremities, new or unusual visual symptoms, low sugar/hypoglycemic reactions, weight loss/gain, lightheadedness/dizziness and bowel changes/loose stools. Patient's last HgA1C was Hemoglobin A1C (%) Date Value 03/11/2024 6.5 06/21/2023 6.8 06/27/2021 6.9 10/17/2020 6.2 Hemoglobin A1C (POCT) (%) Date Value 11/18/2023 6.6 11/09/2022 6.3 Review of Systems Constitutional: Negative. Respiratory: Positive for chest tightness (throat tightness) and shortness of breath. Cardiovascular: Negative. Endocrine: Negative. Objective BP 133/74 Pulse 71 Resp 16 Wt 49.6 kg (109 lb 5.6 oz) SpO2 97% BMI 21.36 kg/m? Physical Exam Vitals and nursing note reviewed. Constitutional: Appearance: Normal appearance. HENT: Head: Normocephalic and atraumatic. Eyes: Conjunctiva/sclera: Conjunctivae normal. Neck: Thyroid: No thyromegaly. Vascular: Normal carotid pulses. No JVD. Cardiovascular: Rate and Rhythm: Normal rate and regular rhythm. Pulses: Normal pulses. Carotid pulses are 2+ on the right side and 2+ on the left side. Radial pulses are 2+ on the right side and 2+ on the left side. Heart sounds (more content not included)... [facility] 07-06-2024 Note HNO ID: [id number] Author: SHAHZAD SINGLETON MD Service: ? Author Type: Physician Type: Procedures Filed: 07/31/2024 15:16 Note Text: Patient Name: Tania Romero : 1940 Ordering Provider: LUIS MANUEL HERNANDEZ Indication: R42 Dizziness and giddiness Type of Monitor: Extended Monitoring-Zio Patch Enrollment Dates: 07/06/2024-07/20/2024 IRHYTHM FINDINGS: Patient had a min HR of 52 bpm, max HR of 214 bpm, and avg HR of 83 bpm. Predominant underlying rhythm was Sinus Rhythm. 76 Supraventricular Tachycardia runs occurred, the run with the fastest interval lasting 2 mins 16 secs with a max rate of 214 bpm, the longest lasting 34 mins 22 secs with an avg rate of 131 bpm. Isolated SVEs were rare (<1.0%), SVE Couplets were rare (<1.0%), and SVE Triplets were rare (<1.0%). Isolated VEs were rare (<1.0%), VE Couplets were rare (<1.0%), and no VE Triplets were present. MD notification criteria for Supraventricular Tachycardia met - Notified [place] on 27 Jul 2024 at 6:[address] ([place]). [facility] 07-02-2024 Telephone encounter Note See MyChart reply [facility] 07-02-2024 Miscellaneous Notes See MyChart reply documented in this encounter [facility] 05-18-2024 Instructions Bg Chavarria MD - 05/18/2024 10:45 AM EDT -Monitor your hydration levels and aim to consume 6-8 cups of non-caffeinated fluids daily, such as water or electrolyte drinks like Gatorade. - Consider increasing your salt intake slightly to help maintain blood pressure, especially if you have a history of low blood pressure. - Keep a blood pressure cuff accessible at home to monitor your blood pressure during episodes of lightheadedness or dizziness. - Consider wearing a fitness tracker, such as a Fitbit, to monitor your heart rate during episodes. - Keep glucose tablets or a small can of juice with you to help raise your blood sugar if needed. - If you feel an episode of lightheadedness or dizziness coming on, sit or lie down immediately to prevent falls. - If episodes persist or worsen, we may consider further testing, such as an event monitor, or a referral to cardiology. - Your next appointment is scheduled for June, but you can come back sooner if needed. documented in this encounter [facility] 05-18-2024 Note HNO ID: [id number] Author: BG CHAVARRIA MD Service: ? Author Type: Physician Type: Progress Notes Filed: 05/18/2024 10:46 Note Text: This note was created using [employer]. Subjective Tania Romero is a 83 year old female. Patient presents with: Established Patient: Follow up lightheaded and chest pain SUBJECTIVE: Tania Romero is a 83 year old year old lady here today for follow up appointment for review of medical conditions. Patient is an 83-year-old female presenting for follow-up on recent episodes of lightheadedness and chest pain. Patient reports two recent episodes of lightheadedness and chest pain that were different from her previous experiences. She has a long history of similar episodes, which she previously attributed to dehydration or low blood sugar and managed by drinking fluids or eating. However, these recent episodes were more severe and occurred under different circumstances. 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 She felt lightheaded while sitting on a bar stool and attempted to lower her head to the table but ended up passing out and hitting her head on the table leg. This was the first time she had ever passed out during such an episode. The second episode occurred while grocery shopping. She felt lightheaded and asked for a place to sit but was not provided one immediately. She eventually sat in a wheelchair but did not pass out. The episode did not resolve quickly, leading to increased anxiety and the decision to call emergency services. An EKG performed by the emergency responders was normal, and the episode resolved after drinking water. Patient has a history of low blood pressure and a family history of low blood pressure and heart surgery. She had an echocardiogram and a chemical stress test three years ago, which showed an abnormality but was not considered significant. She also had an EKG last year that showed possible left atrium enlargement and some nonspecific findings. Patient reports occasional episodes of lightheadedness and dizziness. She does not currently monitor her blood pressure during these episodes but has a blood pressure cuff at home. She tries to stay hydrated and has been increasing her salt intake. She has also experienced episodes of feeling lightheaded while driving, which resolved after drinking water. She reports that her heart rate increases during these episodes, and she sometimes feels hot and sweaty. She also reports a sensation of phlegm in her throat and difficulty swallowing during the last episode in the grocery store. Patient's , Alcira, recently had a quadruple bypass surgery, which has increased her concern about her own symptoms. She has not made any recent changes to her medications. PAST MEDICAL HISTORY No date: Arthritis No date: DJD (degenerative joint disease) of hip Comment: Left--Dr. Vasquez (worse from 2011 to 2012) No date: Low vitamin B12 level 05/31/2016: Multiple sclerosis (HCC) No date: Osteopenia 01/24/2021: Type 2 diabetes mellitus, without long-term current use of insulin (HCC) Current Outpatient Medications Medication Sig alendronate (FOSAMAX) 70 mg tablet Take 1 tablet by mouth one time a week. Take with a full glass of water, on an empty stomach; do NOT lie down for 30minutes. metFORMIN ER (GLUCOPHAGE XR) 500 mg 24 hr tablet Take 1 tablet by mouth daily with breakfast. meloxicam (MOBIC) 7.5 mg tablet Take 1 tablet by mouth once daily. Syringe with Needle, Disp, (BD LUER-ISABEL SYRINGE) 3 mL 25 gauge x 1 Use for b12 injection monthly cyanocobalamin 1,000 mcg/mL USE ONE ML INTO THE MUSCLE ONCE MONTHLY Cholecalciferol, Vitamin D3, 125 mcg (5,000 unit) cap Hold for 1 month then take once weekly Lactobacillus acidophilus (PROBIOTIC ORAL) Take by mouth. calcium carbonate (TUMS ORAL) Take by mouth as needed. Lactase (LACTAID FAST ACT) 9,000 unit chew Uses as needed conjugated estrogens (PREMARIN) vaginal cream Use 0.5 g vaginally as needed. for 3 weeks then off for 1 week No current facility-administered medications for this visit. Review of Systems Objective BP 134/68 Pulse 79 Temp 36.3 ?C (97.4 ?F) Resp 16 Wt 50 kg (110 lb 3.7 oz) SpO2 97% BMI 21.53 kg/m? Last 5 Encounter Wt Readings: Date: Wt: 05/18/2024 50 kg (110 lb 3.7 oz) 03/31/2024 49.4 kg (108 lb 14.4 oz) 03/24/2024 49.9 kg (110 lb) 11/18/2023 50.3 kg (110 lb 12.8 oz) 07/15/2023 52.6 kg (116 lb) No waist measurement recorded Estimated body mass index is 21.53 kg/m? as calculated from the following: Height as of 11/18/23: 152.4 cm (5'). Weight as of this encounter: 50 kg (110 lb 3.7 oz). Last 5 Encounter BP Readings: Date: BP: 05/18/2024 134/68 03/31/2024 144/80 03/24/2024 110/70 11/18/2023 112/74 07/15/2023 123/78 Physical Exam Constitutional: Appearance: Normal appearance. HENT: Head: Normocephalic. Eyes: Conju (more content not included)... [facility] 05-18-2024 History of Present illness Narrative This note was created using [employer]. Subjective Tania Romero is a 83 year old female. Patient presents with: Established Patient: Follow up lightheaded and chest pain SUBJECTIVE: Tania Romero is a 83 year old year old lady here today for follow up appointment for review of medical conditions. Patient is an 83-year-old female presenting for follow-up on recent episodes of lightheadedness and chest pain. Patient reports two recent episodes of lightheadedness and chest pain that were different from her previous experiences. She has a long history of similar episodes, which she previously attributed to dehydration or low blood sugar and managed by drinking fluids or eating. However, these recent episodes were more severe and occurred under different circumstances. 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 She felt lightheaded while sitting on a bar stool and attempted to lower her head to the table but ended up passing out and hitting her head on the table leg. This was the first time she had ever passed out during such an episode. The second episode occurred while grocery shopping. She felt lightheaded and asked for a place to sit but was not provided one immediately. She eventually sat in a wheelchair but did not pass out. The episode did not resolve quickly, leading to increased anxiety and the decision to call emergency services. An EKG performed by the emergency responders was normal, and the episode resolved after drinking water. Patient has a history of low blood pressure and a family history of low blood pressure and heart surgery. She had an echocardiogram and a chemical stress test three years ago, which showed an abnormality but was not considered significant. She also had an EKG last year that showed possible left atrium enlargement and some nonspecific findings. Patient reports occasional episodes of lightheadedness and dizziness. She does not currently monitor her blood pressure during these episodes but has a blood pressure cuff at home. She tries to stay hydrated and has been increasing her salt intake. She has also experienced episodes of feeling lightheaded while driving, which resolved after drinking water. She reports that her heart rate increases during these episodes, and she sometimes feels hot and sweaty. She also reports a sensation of phlegm in her throat and difficulty swallowing during the last episode in the grocery store. Patient's , Alcira, recently had a quadruple bypass surgery, which has increased her concern about her own symptoms. She has not made any recent changes to her medications. PAST MEDICAL HISTORY No date: Arthritis No date: DJD (degenerative joint disease) of hip Comment: Left--Dr. Vasquez (worse from 2011 to 2012) No date: Low vitamin B12 level 05/31/2016: Multiple sclerosis ([facility]) No date: Osteopenia 01/24/2021: Type 2 diabetes mellitus, without long-term current use of insulin ([facility]) Current Outpatient Medications Medication Sig alendronate (FOSAMAX) 70 mg tablet Take 1 tablet by mouth one time a week. Take with a full glass of water, on an empty stomach; do NOT lie down for 30minutes. metFORMIN ER (GLUCOPHAGE XR) 500 mg 24 hr tablet Take 1 tablet by mouth daily with breakfast. meloxicam (MOBIC) 7.5 mg tablet Take 1 tablet by mouth once daily. Syringe with Needle, Disp, (BD LUER-ISABEL SYRINGE) 3 mL 25 gauge x 1 Use for b12 injection monthly cyanocobalamin 1,000 mcg/mL USE ONE ML INTO THE MUSCLE ONCE MONTHLY Cholecalciferol, Vitamin D3, 125 mcg (5,000 unit) cap Hold for 1 month then take once weekly Lactobacillus acidophilus (PROBIOTIC ORAL) Take by mouth. calcium carbonate (TUMS ORAL) Take by mouth as needed. Lactase (LACTAID FAST ACT) 9,000 unit chew Uses as needed conjugated estrogens (PREMARIN) vaginal cream Use 0.5 g vaginally as needed. for 3 weeks then off for 1 week No current facility-administered medications for this visit. Review of Systems Objective BP 134/68 Pulse 79 Temp 36.3 C (97.4 F) Resp 16 Wt 50 kg (110 lb 3.7 oz) SpO2 97% BMI 21.53 kg/m Last 5 Encounter Wt Readings: Date: Wt: 05/18/2024 50 kg (110 lb 3.7 oz) 03/31/2024 49.4 kg (108 lb 14.4 oz) 03/24/2024 49.9 kg (110 lb) 11/18/2023 50.3 kg (110 lb 12.8 oz) 07/15/2023 52.6 kg (116 lb) No waist measurement recorded Estimated body mass index is 21.53 kg/m as calculated from the following: Height as of 11/18/23: 152.4 cm (5'). Weight as of this encounter: 50 kg (110 lb 3.7 oz). Last 5 Encounter BP Readings: Date: BP: 05/18/2024 134/68 03/31/2024 144/80 03/24/2024 110/70 11/18/2023 112/74 07/15/2023 123/78 Physical Exam Constitutional: Appearance: Normal appearance. HENT: Head: Normocephalic. Eyes: Conjunctiva/sclera: Conjunctivae normal. Neck: Vascular: No carotid bruit. Cardiovascular: Rate and Rhythm: Normal rate and regular rhythm. Heart sounds: Normal heart sounds. Pulmonary: Effort: Pulmonary effort is normal. Breath sounds: Normal breath sounds. Musculoskeletal: Right lower leg: No edema. Left lower leg: No edema. Comments: Left knee still puffy; wearing wrap Skin: General: Skin is warm and dry. Neurological: General: No focal deficit present. Mental Status: She is alert and oriented to person, place, and time. Psychiatric: Mood and Affect: Mood normal. Behavior: Behavior normal. Thought Content: Thought content normal. Judgment: Judgment normal. Assessment and Plan Near syncope: - Patient experienced two recent episodes of near syncope, one while grocery shopping and another at a [employer]. Both episodes were atypical compared to previous experiences. - During the grocery store episode, the patient felt lightheaded and almost passed out, leading to the squad being called. Initial EKG suggested AFib, but subsequent EKG was normal. - Patient has a history of low blood pressure and a family history of low blood pressure and heart surgery. - Educated the patient on the importance of staying hydrated with 6 to 8 cups of non-caffeinated fluids daily and increasing salt intake to maintain blood pressure. - Discussed the potential need for further evaluation if episodes persist, including the use of an event monitor for 2 weeks to 30 days to rule out arrhythmias. - Advised the patient to consider using a fitness tracker to monitor heart rate during episodes. - Patient understands and agrees with the plan to focus on hydration and salt intake initially and to follow up if symptoms persist. Episodic lightheadedness: - Patient reports occasional episodes of lightheadedness, sometimes accompanied by a sensation of staley from the head, hot and sweaty feeling, and phlegm in the throat. - Physical exam today shows no current dizziness or lightheadedness, heart rate in the 70s, and no significant changes in EKG from previous tests. - Advised the patient to monitor blood pressure during episodes using a home blood pressure cuff. - Educated the patient on the importance of hydration and electrolyte balance, and to consider using electrolyte water or sports drinks like Gatorade. - Discussed the possibility of using glucose tablets or small cans of juice to manage symptoms if they occur while driving or in other situations. - Patient understands and agrees with the plan to monitor symptoms and maintain hydration and electrolyte balance. I spent a total of 35 minutes on the date of the service which included [id number] patient care, completing clinical documentation, obtaining and/or reviewing separately obtained history, performing a medically appropriate examination, and counseling and educating the patient/family/caregiver. Bg Chavarria MD documented in this encounter [facility] 05-11-2024 Telephone encounter Note Spoke with patient regarding the lightheadedness and upper chest pain. Patient stated [facility] was called but she did not go to the hospital as symptoms subsided and EKG was normal. Stated that she has had these symptoms before and she has not had any symptoms since episode. Patient was offered same day appointment as well as anytime this week but patient declined stating she has company coming and they will be here until Saturday. Patient has been informed to go to the ER with any concerning symptoms such as the dizziness and chest pain and patient verbalized understanding. Appointment agreed to an appointment next Saturday with Dr. Chavarria. [facility] 05-11-2024 Miscellaneous Notes Spoke with patient regarding the lightheadedness and upper chest pain. Patient stated squad was called but she did not go to the hospital as symptoms subsided and EKG was normal. Stated that she has had these symptoms before and she has not had any symptoms since episode. Patient was offered same day appointment as well as anytime this week but patient declined stating she has company coming and they will be here until Saturday. Patient has been informed to go to the ER with any concerning symptoms such as the dizziness and chest pain and patient verbalized understanding. Appointment agreed to an appointment next Saturday with Dr. Chavarria. documented in this encounter [facility] 05-07-2024 Note HNO ID: [id number] Author: LORENA JACOBSEN MD Service: ? Author Type: Physician Type: Progress Notes Filed: 05/08/2024 08:28 Note Text: Orthopaedic Office Note: History/Subjective: Tania Romero is s/p b/l THAs previously Here for checkup, had fall on L knee Wanted to have hip checked Some knee swelling, otherwise pain almost completely subsided Imaging: Well appearing b/l THAs no complication Physical Examination: Both hips excellent ROM No pain with hip ROM Neg [facility] Prepatellar bursal swelling, L knee only No erythema, effusion Assessment and Plan: Tania Romero had a fall, now swelling/pain at knee resolving. Ambulating well. Both hips functioning well without complication. Continued conservative mgmt and elizabeth wraps for swelling L knee. All questions answered. Red flag symptoms discussed. F/U as needed I spent a total of approximately 15 minutes on the date of the service which included preparing to see the patient, [id number] patient care, completing clinical documentation, obtaining and/or reviewing separately obtained history, performing a medically appropriate examination, counseling and educating the patient/family/caregiver, and care coordination (not separately reported). Lorena Jacobsen MD Orthopaedic Surgery [facility] 05-07-2024 History of Present illness Narrative Orthopaedic Office Note: History/Subjective: Tania Romero is s/p b/l THAs previously Here for checkup, had fall on L knee Wanted to have hip checked Some knee swelling, otherwise pain almost completely subsided Imaging: Well appearing b/l THAs no complication Physical Examination: Both hips excellent ROM No pain with hip ROM Neg [facility] Prepatellar bursal swelling, L knee only No erythema, effusion Assessment and Plan: Tania Romero had a fall, now swelling/pain at knee resolving. Ambulating well. Both hips functioning well without complication. Continued conservative mgmt and elizabeth wraps for swelling L knee. All questions answered. Red flag symptoms discussed. F/U as needed I spent a total of approximately 15 minutes on the date of the service which included preparing to see the patient, [id number] patient care, completing clinical documentation, obtaining and/or reviewing separately obtained history, performing a medically appropriate examination, counseling and educating the patient/family/caregiver, and care coordination (not separately reported). Lorena Jacobsen MD Orthopaedic Surgery documented in this encounter [facility] 05-07-2024 History of Present illness Narrative Radiology Service Progress Note PATIENT NAME: Tania Romero DATE OF SERVICE: May 07, 2024 TIME: 1:35 PM PATIENT IDENTITY VERIFICATION COMPLETED USING TWO (2) IDENTIFIERS: Name and Date of confirmed by patient verbally. FALL SCREENING: Has the patient had 2 falls in the last year or 1 fall with injury or currently using an Ambulatory Assistive Device (Walker, Cane, Wheelchair, Crutches, etc.)? No PATIENT GENDER DATA: Female. status: : No status: NO. PATIENT RELEVANT IMPLANT DATA REVIEWED: Not Applicable PATIENT PRESENTS WITH AN IMPLANTABLE OR ATTACHED DIETARY AIDE TEACHER: No RADIOLOGY DEPARTMENT: General X-ray: Exam(s) Completed: Pelvis X-Ray: Pelvis with Hip Left and Wt. Bearing PERIPHERAL IV DATA: Not applicable SIGNED BY: Jonah Henderson May 07, 2024 1:35 PM documented in this encounter [facility] 05-07-2024 Note HNO ID: [id number] Author: ZURI RED Tech Service: Radiology Author Type: Mechanical Laboratory Technician Type: Progress Notes Filed: 05/07/2024 13:36 Note Text: Radiology Service Progress Note PATIENT NAME: Tania Romero DATE OF SERVICE: May 07, 2024 TIME: 1:35 PM PATIENT IDENTITY VERIFICATION COMPLETED USING TWO (2) IDENTIFIERS: Name and Date of confirmed by patient verbally. FALL SCREENING: Has the patient had 2 falls in the last year or 1 fall with injury or currently using an Ambulatory Assistive Device (Walker, Cane, Wheelchair, Crutches, etc.)? No PATIENT GENDER DATA: Female. status: : No status: NO. PATIENT RELEVANT IMPLANT DATA REVIEWED: Not Applicable PATIENT PRESENTS WITH AN IMPLANTABLE OR ATTACHED DIETARY AIDE TEACHER: No RADIOLOGY DEPARTMENT: General X-ray: Exam(s) Completed: Pelvis X-Ray: Pelvis with Hip Left and Wt. Bearing PERIPHERAL IV DATA: Not applicable SIGNED BY: Jonah Henderson May 07, 2024 1:35 PM [facility] 05-02-2024 Telephone encounter Note See MyChart reply [facility] 05-02-2024 Miscellaneous Notes See MyChart reply See MyChart reply documented in this encounter [facility] 05-01-2024 History of Present illness Narrative HISTORY OF PRESENT ILLNESS: Tania is a 83 year old female. She is here for follow up of Left knee pain. Patient reports a fall in mid February when she missed a step into her garage and had direct impact on the left knee over the kneecap. She reports that the anterior portion of her knee has recently started to swell. She is taking meloxicam regularly for general arthritis throughout her body. X-ray was taken on March 31, 2024 that showed no acute fractures. She does have a known history of moderate to severe osteoarthritis in the left knee. She is overall does not have too much pain, but more of a pressure sensation in the knee. She reports this to be a 2 out of 10 in severity. Denies any numbness or tingling to the left lower extremity. No additional injuries, trauma, falls. MEDICATIONS Current Outpatient Medications on File Prior to Visit Medication Sig alendronate (FOSAMAX) 70 mg tablet Take 1 tablet by mouth one time a week. Take with a full glass of water, on an empty stomach; do NOT lie down for 30minutes. metFORMIN ER (GLUCOPHAGE XR) 500 mg 24 hr tablet Take 1 tablet by mouth daily with breakfast. meloxicam (MOBIC) 7.5 mg tablet Take 1 tablet by mouth once daily. cyanocobalamin 1,000 mcg/mL USE ONE ML INTO THE MUSCLE ONCE MONTHLY Cholecalciferol, Vitamin D3, 125 mcg (5,000 unit) cap Hold for 1 month then take once weekly Lactobacillus acidophilus (PROBIOTIC ORAL) Take by mouth. calcium carbonate (TUMS ORAL) Take by mouth as needed. Lactase (LACTAID FAST ACT) 9,000 unit chew Uses as needed conjugated estrogens (PREMARIN) vaginal cream Use 0.5 g vaginally as needed. for 3 weeks then off for 1 week Syringe with Needle, Disp, (BD LUER-ISABEL SYRINGE) 3 mL 25 gauge x 1 Use for b12 injection monthly No current facility-administered medications on file prior to visit. ALLERGIES ALLERGIES Allergen Reactions Amoxicillin Rash Clindamycin Contraindication-Medical Surgical C diff Compazine [Prochlor* Intolerance Penicillins Rash, Intolerance Rash after 4 days of antibiotic . Prochlorperazine Dystonia PHYSICAL EXAM: PE: All other systems deferred. GENERAL: Appears healthy, well-nourished, no deformities. HABITUS: Normal Gait: Normal, the patient did not have trouble getting onto the exam table. Left: Alignment: Varus deformity, Correctable Range of motion is 0 degrees in extension and 120 degrees of flexion. Extension La degrees Pain with ROM: No Effusion: Moderate prepatellar Tender to the palpation of None Pain with patellar compression: No Stability: Anterior/Posterior stable and Varus/Valgus stable Hip Exam: flexion to 100+ degrees, full extension, internal/external rotation adequate, and no pain with log roll Neurovascular Status: Sensation Intact, Moves foot and ankle up & down, and 2+ dorsalis pedis Strength: 5 Skin: Normal RADIOGRAPHS (personally reviewed): Severe left knee osteoarthritis predominantly in the medial compartment. Chondrocalcinosis MRI: None DIAGNOSIS Encounter Diagnosis ICD-10-CM 1. Primary osteoarthritis of left knee M17.12 2. Prepatellar effusion of left knee M25.462 PLAN Patient has a prepatellar bursitis and effusion due to her fall. We will have her continue meloxicam, incorporate Voltaren gel, and keep it wrapped to assist in fluid drainage. Should it be persistent over the next couple weeks we may always drain and proceed with cortisone injection at that time. We will watch and see how she does with conservative treatment. Follow-up in one month or as needed. I spent a total of 20 minutes on the date of the service which included preparing to see the patient, [id number] patient care, completing clinical documentation, obtaining and/or reviewing separately obtained history, performing a medically appropriate examination, counseling and educating the patient/family/caregiver, and care coordination (not separately reported). PROCEDURE: Procedures Joe Jiang PA-C AMB ROOMING INTAKE FLOWSHEET DATA Pain Pain Level: 2 Pain Location: Knee-Left Description: Pressure Duration Amount of Time: 1 Duration Units: Minutes Frequency: Intermittent Intervention/Comfort measure: Reposition Patient states she fell mid to late February when she missed a step in her garage. She landed directly on the left knee. She saw PCP office a week or two after the injury. Knee started swelling recently. Has been taking meloxicam. X-ray taken on 03/31/2024. documented in this encounter [facility] 04-27-2024 Telephone encounter Note See MyChart reply [facility] 03-31-2024 History of Present illness Narrative Radiology Service Progress Note PATIENT NAME: Tania Romero DATE OF SERVICE: March 31, 2024 TIME: 10:25 AM PATIENT IDENTITY VERIFICATION COMPLETED USING TWO (2) IDENTIFIERS: Name and Date of confirmed by patient verbally. FALL SCREENING: Has the patient had 2 falls in the last year or 1 fall with injury or currently using an Ambulatory Assistive Device (Walker, Cane, Wheelchair, Crutches, etc.)? Yes, Patient High Risk for Falls What interventions were put in place to prevent falls during this visit? Offered Assistance with Transfers/Clothing and Instructed Patient to Remain Seated (Not on Exam Table) Until Exam PATIENT GENDER DATA: Female. status: : No status: NO. PATIENT RELEVANT IMPLANT DATA REVIEWED: Not Applicable PATIENT PRESENTS WITH AN IMPLANTABLE OR ATTACHED DIETARY AIDE TEACHER: No RADIOLOGY DEPARTMENT: General X-ray: Exam(s) Completed: Lower Extremity X-Ray(s): Knee, AP / Lat / Tunne / Merchant Left and Wt. Bearing PERIPHERAL IV DATA: Not applicable SIGNED BY: RT Mariluz(R) March 31, 2024 10:25 AM documented in this encounter [facility] 03-31-2024 History of Present illness Narrative Images from the original note were not included. This note was created using [employer]. Subjective Tania Romero is a 83 year old female. Patient presents with: Same Day Appointment: Left knee pain after fall 1 week ago SUBJECTIVE: Tania Romero is a 83 year old year old lady here today for follow up appointment for review of medical conditions. Missed step going down in t he garage. Landed straight on her knee. Not twisted. Swelling around knee cap. Tender above knee cap . Twinges of pain just above knee cap and lateral hip. No pain anterior hip. Had a fall a couple days later but fell in garden and landed on other side on day lilies. Beginning of February fell when passed out while sitting on a stool at a [employer] after a couple drinks. [place]pping like was going to pass out but could not lay head down fast enough. Fell backwards. Does get salt in diet. Trying to drink enough water but sometimes does not. Able to walk and knee okay. 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 Vasquez (worse from 2011 to 2012) Low vitamin B12 level Multiple sclerosis ([facility]) 05/31/2016 Osteopenia Type 2 diabetes mellitus, without long-term current use of insulin ([facility]) 01/24/2021 Current Outpatient Medications Medication Sig alendronate (FOSAMAX) 70 mg tablet Take 1 tablet by mouth one time a week. Take with a full glass of water, on an empty stomach; do NOT lie down for 30minutes. metFORMIN ER (GLUCOPHAGE XR) 500 mg 24 hr tablet Take 1 tablet by mouth daily with breakfast. meloxicam (MOBIC) 7.5 mg tablet Take 1 tablet by mouth once daily. Syringe with Needle, Disp, (BD LUER-ISABEL SYRINGE) 3 mL 25 gauge x 1 Use for b12 injection monthly cyanocobalamin 1,000 mcg/mL USE ONE ML INTO THE MUSCLE ONCE MONTHLY Cholecalciferol, Vitamin D3, 125 mcg (5,000 unit) cap Hold for 1 month then take once weekly Lactobacillus acidophilus (PROBIOTIC ORAL) Take by mouth. calcium carbonate (TUMS ORAL) Take by mouth as needed. Lactase (LACTAID FAST ACT) 9,000 unit chew Uses as needed conjugated estrogens (PREMARIN) vaginal cream Use 0.5 g vaginally as needed. for 3 weeks then off for 1 week No current facility-administered medications for this visit. Review of Systems Objective BP 144/80 Pulse 87 Temp 36 C (96.8 F) Resp 18 Wt 49.4 kg (108 lb 14.4 oz) SpO2 97% BMI 21.27 kg/m Last 5 Encounter Wt Readings: Date: Wt: 03/31/2024 49.4 kg (108 lb 14.4 oz) 03/24/2024 49.9 kg (110 lb) 11/18/2023 50.3 kg (110 lb 12.8 oz) 07/15/2023 52.6 kg (116 lb) 06/30/2023 57.7 kg (127 lb 3.3 oz) No waist measurement recorded Estimated body mass index is 21.27 kg/m as calculated from the following: Height as of 11/18/23: 152.4 cm (5'). Weight as of this encounter: 49.4 kg (108 lb 14.4 oz). Last 5 Encounter BP Readings: Date: BP: 03/31/2024 144/80 03/24/2024 110/70 11/18/2023 112/74 07/15/2023 123/78 06/30/2023 159/86 Physical Exam Musculoskeletal: Left knee: Ecchymosis (Greenish discoloration around knee cap) and crepitus present. Decreased range of motion (hurts to flex knee--pain above knee cap; able to extrend). Tenderness (suprapatellar tendon) present. Legs: Comments: Also tender lateral upper thigh Assessment and Plan Encounter Diagnosis ICD-10-CM 1. Acute pain of left knee M25.562 XR KNEE GENERAL 4V AP BOTH/PA BOTH/LAT/MERC LEFT Pain is improving but getting twinges of pain 2. Contusion of left knee, initial encounter S80.02XA XR KNEE GENERAL 4V AP BOTH/PA BOTH/LAT/MERC LEFT Checking Xray. Further evaluation and treatment as needed 3. Strain of left quadriceps, initial encounter S76.112A Refer to PT or ortho as needed 4. Type 2 diabetes mellitus with other specified complication, without long-term current use of insulin (HCC) E11.69 HEMOGLOBIN A1C COMPREHENSIVE METABOLIC PANEL Further evaluation and treatment as indicated. Bg Chavarria MD documented in this encounter [facility] 03-30-2024 Telephone encounter Note Patient scheduled for OV on 03/31/24 with PCP to assess patient post fall. Kimberly Garcia LPN [facility] 03-30-2024 Miscellaneous Notes Patient scheduled for OV on 03/31/24 with PCP to assess patient post fall. Kimberly Garcia LPN documented in this encounter [facility] 03-24-2024 History of Present illness Narrative SUBJECTIVE Tania Romero is a 83 year old female here today for a check up on her medical problems. Chief Complaint Patient presents with: 4 month follow up HPI Tania Romero is a 83 year old female. She is an established patient of Bg Chavarria MD. Here today for a routine 4 month follow up. She had labs done. History of DM, arthritis, chronic back pain, elevated LDL cholesterol and vitamin d def. Labs were overall stable. No issues with chest pain, chest tightness or shortness of breath. Trying to exercise and be active as able. Her medications were reviewed today and her list is now up to date. Medications Current Outpatient Medications Medication Sig alendronate (FOSAMAX) 70 mg tablet Take 1 tablet by mouth one time a week. Take with a full glass of water, on an empty stomach; do NOT lie down for 30minutes. metFORMIN ER (GLUCOPHAGE XR) 500 mg 24 hr tablet Take 1 tablet by mouth daily with breakfast. meloxicam (MOBIC) 7.5 mg tablet Take 1 tablet by mouth once daily. cyanocobalamin 1,000 mcg/mL USE ONE ML INTO THE MUSCLE ONCE MONTHLY Cholecalciferol, Vitamin D3, 125 mcg (5,000 unit) cap Hold for 1 month then take once weekly Lactobacillus acidophilus (PROBIOTIC ORAL) Take by mouth. calcium carbonate (TUMS ORAL) Take by mouth as needed. Lactase (LACTAID FAST ACT) 9,000 unit chew Uses as needed conjugated estrogens (PREMARIN) vaginal cream Use 0.5 g vaginally as needed. for 3 weeks then off for 1 week Syringe with Needle, Disp, (BD LUER-ISABEL SYRINGE) 3 mL 25 gauge x 1 Use for b12 injection monthly No current facility-administered medications for this visit. ALLERGIES Allergen Reactions Amoxicillin Rash Clindamycin Contraindication-Medical Surgical C diff Compazine [Prochlor* Intolerance Penicillins Rash, Intolerance Rash after 4 days of antibiotic . Prochlorperazine Dystonia ACTIVE PROBLEM LIST Status Post Hip Replacement, Right - 07/24/2023 Status Post Right Hip Replacement - 07/04/2023 Former Smoker - 06/26/2023 Si (Sacroiliac) Joint Inflammation ([facility]) - 06/24/2023 Trochanteric Bursitis of Right Hip - 02/08/2023 Vitamin D Deficiency - 03/04/2022 Elevated Ldl Cholesterol Level - 03/04/2022 Colon Cancer Screening - 03/04/2022 Type 2 Diabetes Mellitus, Without Long-Term Current Use of Insulin ([facility]) - 01/24/2021 Gerd (Gastroesophageal Reflux Disease) - 01/24/2021 Abnormal Ekg - 01/24/2021 Primary Osteoarthritis of Both Hips - 06/07/2020 Chronic Midline Low Back Pain Without Sciatica - 04/29/2019 Comment: Doing better with exercises; had PT Osteopenia Abnormality of Gait - 06/21/2016 Multiple Sclerosis ([facility]) - 05/31/2016 Low Vitamin B12 Level Family History of Malignant Neoplasm of Gastrointestinal Tract - 05/06/2012 Comment: father Social History Tobacco Use Smoking status: Former Types: Cigarettes Quit date: 1992 Years since quittin.5 Smokeless tobacco: Never Vaping Use Vaping Use: Never used Substance Use Topics Alcohol use: Yes Comment: GLASS OF WINE DAILY Drug use: Not Currently Review of Systems Respiratory: Negative. Cardiovascular: Negative. Musculoskeletal: Positive for arthralgias. OBJECTIVE BP 110/70 Pulse 82 Wt 110 lb (49.9kg) SpO2 97% Physical Exam Vitals and nursing note reviewed. Constitutional: General: She is awake. She is not in acute distress. Appearance: Normal appearance. She is well-developed and well-groomed. She is not ill-appearing, toxic-appearing or diaphoretic. HENT: Head: Normocephalic. Right Ear: External ear normal. Left Ear: External ear normal. Nose: Nose normal. Eyes: General: Vision grossly intact. Conjunctiva/sclera: Conjunctivae normal. Pupils: Pupils are equal, round, and reactive to light. Neck: Vascular: No JVD. Trachea: Trachea normal. Cardiovascular: Rate and Rhythm: Normal rate and regular rhythm. Pulses: Normal pulses. Heart sounds: Normal heart sounds. No murmur heard. Pulmonary: Effort: Pulmonary effort is normal. No accessory muscle usage, prolonged expiration or respiratory distress. Breath sounds: Normal breath sounds. Musculoskeletal: Cervical back: Neck supple. Skin: General: Skin is warm and dry. Capillary Refill: Capillary refill takes less than 2 seconds. Neurological: General: No focal deficit present. Mental Status: She is alert and oriented to person, place, and time. Mental status is at baseline. Psychiatric: Attention and Perception: Attention and perception normal. Mood and Affect: Mood and affect normal. Speech: Speech normal. Behavior: Behavior normal. Behavior is cooperative. Thought Content: Thought content normal. Cognition and Memory: Cognition and memory normal. Judgment: Judgment normal. ASSESSMENT/PLAN: 1. Type 2 diabetes mellitus without complication, without long-term current use of insulin (HCC) - ICD9: 250.00, ICD10: E11.9 (primary diagnosis) - Controlled - Continue current medications - Counseled on healthy diet and regular exercise - Discussed need for and benefit of weight loss. BMI 21.48 kg/(m^2) 2. Vitamin D deficiency - ICD9: 268.9, ICD10: E55.9 Stable. 3. Primary osteoarthritis of both hips - ICD9: 715.15, ICD10: M16.0 Managing. 4. Chronic midline low back pain without sciatica - ICD9: 724.2, 338.29, ICD10: M54.50, G89.29 Managing. 5. Elevated LDL cholesterol level - ICD9: 272.0, ICD10: E78.00 Stable. Portions of this note have been entered by ancillary staff. I have reviewed and when necessary edited, so that they are an adequate record of my encounter with this patient Please note that parts of this document were created using voice recognition software and therefore may contain grammatical errors. Patient verbalizes understanding of instructions from today's visit and in agreement with treatment plan. Questions answered. Agrees to call the office if questions, concerns of issues with acute symptoms not improving or if they worsen. See diagnoses and orders for additional plan(s). Allergies and medications were reviewed, list was updated, and refills given if needed. Past medical, surgical, social, and family history reviewed and updated as appropriate. Encouraged proper diet & exercise as well as compliance with taking medications. Age-appropriate health preventative measures were discussed. Return if symptoms worsen or fail to improve, for Keep next scheduled appointment.. Linda Silva APRN-SEEMA documented in this encounter [facility] 03-13-2024 Telephone encounter Note Pharmacist Refill Authorization Review Name: Tania Romero Date: 03/13/2024 Time: 12:00 PM Refill authorization request(s) received and reviewed under effective consult agreement. Upon review, did confirm that an active patient-provider relationship exists and that the prescriber is a participating physician under the consult agreement. Last office visit in this department: 11/18/2023 Bg Chavarria MD Last distance health visit in this department: 01/30/2024 Luis Manuel Hernandez, CARMEL.[employer] Next appointment in this department: 03/17/2024 Bg Chavarria MD The medication(s) fall under the following categories: Category 1 (Metformin): No barriers to continued therapy exists and patient is up to date with provider visits. Prescription(s) issued as below. Category 3 (Alendronate): Medication(s) does not qualify for pharmacist renewal due to condition or diagnosis excluded from collaborative practice agreement: osteopenia. Renewal request sent to provider for review. Requested Prescriptions Pending Prescriptions Disp Refills alendronate (FOSAMAX) 70 mg tablet 12 tablet 3 Sig: Take 1 tablet by mouth one time a week. Take with a full glass of water, on an empty stomach; do NOT lie down for 30minutes. Signed Prescriptions Disp Refills metFORMIN ER (GLUCOPHAGE XR) 500 mg 24 hr tablet 90 tablet 3 Sig: Take 1 tablet by mouth daily with breakfast. Authorizing Provider: BG CHAVARRIA Ordering User: OMAR VERNON Number of refills approved in this encounter: 1 Number of refills forwarded to provider for review: 1 Number of refills denied in this encounter: 0 Omar Vernon RPh [facility] 03-13-2024 Miscellaneous Notes Pharmacist Refill Authorization Review Name: Tania Romero Date: 03/13/2024 Time: 12:00 PM Refill authorization request(s) received and reviewed under effective consult agreement. Upon review, did confirm that an active patient-provider relationship exists and that the prescriber is a participating physician under the consult agreement. Last office visit in this department: 11/18/2023 Bg Chavarria MD Last distance health visit in this department: 01/30/2024 Luis Manuel Hernandez APRN.DR[employer] HAND Next appointment in this department: 03/17/2024 Bg Chavarria MD The medication(s) fall under the following categories: Category 1 (Metformin): No barriers to continued therapy exists and patient is up to date with provider visits. Prescription(s) issued as below. Category 3 (Alendronate): Medication(s) does not qualify for pharmacist renewal due to condition or diagnosis excluded from collaborative practice agreement: osteopenia. Renewal request sent to provider for review. Requested Prescriptions Pending Prescriptions Disp Refills alendronate (FOSAMAX) 70 mg tablet 12 tablet 3 Sig: Take 1 tablet by mouth one time a week. Take with a full glass of water, on an empty stomach; do NOT lie down for 30minutes. Signed Prescriptions Disp Refills metFORMIN ER (GLUCOPHAGE XR) 500 mg 24 hr tablet 90 tablet 3 Sig: Take 1 tablet by mouth daily with breakfast. Authorizing Provider: BG CHAVARRIA Ordering User: OMAR VERNON Number of refills approved in this encounter: 1 Number of refills forwarded to provider for review: 1 Number of refills denied in this encounter: 0 Omar Vernon RPh documented in this encounter [facility] 03-13-2024 Telephone encounter Note Pharmacist Refill Authorization Review Name: Tania Romero Date: 03/13/2024 Time: 11:57 AM Refill authorization request(s) received and reviewed under effective consult agreement. Upon review, did confirm that an active patient-provider relationship exists and that the prescriber is a participating physician under the consult agreement. Last office visit in this department: Visit date not found Last distance health visit in this department: Visit date not found Next appointment in this department: Visit date not found The medication(s) fall under the following categories: Category 3: Medication(s) does not qualify for pharmacist renewal due to condition or diagnosis excluded from collaborative practice agreement. Renewal request sent to provider for review. Requested Prescriptions Pending Prescriptions Disp Refills meloxicam (MOBIC) 7.5 mg tablet 90 tablet 1 Sig: Take 1 tablet by mouth once daily. Number of refills approved in this encounter: 0 Number of refills forwarded to provider for review: 1 Number of refills denied in this encounter: 0 Bernadine Cardoso RPh [facility] 03-13-2024 Miscellaneous Notes Pharmacist Refill Authorization Review Name: Tania Romero Date: 03/13/2024 Time: 11:57 AM Refill authorization request(s) received and reviewed under effective consult agreement. Upon review, did confirm that an active patient-provider relationship exists and that the prescriber is a participating physician under the consult agreement. Last office visit in this department: Visit date not found Last [facility] health visit in this department: Visit date not found Next appointment in this department: Visit date not found The medication(s) fall under the following categories: Category 3: Medication(s) does not qualify for pharmacist renewal due to condition or diagnosis excluded from collaborative practice agreement. Renewal request sent to provider for review. Requested Prescriptions Pending Prescriptions Disp Refills meloxicam (MOBIC) 7.5 mg tablet 90 tablet 1 Sig: Take 1 tablet by mouth once daily. Number of refills approved in this encounter: 0 Number of refills forwarded to provider for review: 1 Number of refills denied in this encounter: 0 Bernadine Cardoso RPh documented in this encounter [facility] 01-30-2024 History of Present illness Narrative Telemedicine Evaluation for COVID-19 Infection MyChart Zoom Video Visit was used for evaluation of this patient. I have communicated my name and active licensure. The patient's identity and physical location were verified at the time of this visit. Either the patient or their legal patient account representative has been informed of the risks and benefits of -- and alternatives to -- treatment through a remote evaluation and consents to proceed with the evaluation remotely. SUBJECTIVE Tania Romero is a 83 year old female who presents with 2 days of symptoms that are worsening. [employer] recently. Scratchy throat at first now with runny and stuffy nose. Zyrtec Symptoms include: Fever (?100.4F): Yes 99.6F or Chills: No Cough: Yes occasionally productive Shortness of breath: No or Difficulty breathing: No Fatigue: Yes Muscle aches: Yes Headache: No New loss of smell or taste: No Sore throat: Yes Nasal congestion: Yes or Rhinorrhea: Yes Nausea: No or Vomiting: No Diarrhea: No OTC meds/remedies that patient has tried: Zyrtec. High risk category assessment Age > 60 years old Exposures: Sick contacts? No Family or close contacts with confirmed/probable COVID-19 in last 14 days? No She reports that she quit smoking about 31 years ago. Her smoking use included cigarettes. She has never used smokeless tobacco. OBJECTIVE VIDEO EXAM (if available) no home vs GENERAL: Ill-appearing, but non-toxic HEENT: no conjunctival injection, pupils equal and moist mucous membranes PULMONARY: breathing comfortably on room air , no coughing noted, and no wheezing noted Creatinine Date Value Ref Range Status 07/02/2023 0.71 0.58 - 0.96 mg/dL Final 06/30/2023 0.74 0.58 - 0.96 mg/dL Final 06/29/2023 0.73 0.58 - 0.96 mg/dL Final 06/28/2023 0.79 0.58 - 0.96 mg/dL Final ASSESSMENT/PLAN (U07.1) COVID-19 virus infection (primary encounter diagnosis) - Discussed symptom monitoring and supportive care - Red flag symptoms requiring follow up discussed Nirmatrelvir/Ritonavir (Paxlovid) Considerations Paxlovid is FDA-approved for treatment of mild to moderate COVID-19 in adults who are at high risk for progression to severe COVID-19. Consider use of Paxlovid in the following examples of high risk patients (list is not all inclusive): Age over 65 years Cardiovascular and cerebrovascular disease Chronic disease state (kidney, liver, lung) Diabetes (type 1 or type 2) Immunocompromised state (cancer, solid organ or blood stem cell transplant, HIV) Obesity Paxlovid warnings include serious drug interactions (co-administration with drugs highly dependent on CYP3A for clearance), hypersensitivity reactions, hepatotoxicity, and risk of HIV-1 resistance development. Luis Manuel Hernandez APRN.CNS January 30, 2024 1:08 PM 20 min in visit documented in this encounter [facility] 01-30-2024 Instructions Luis Manuel Hernandez APRN.CNS - 01/30/2024 12:41 PM EDT Images from the original note were not included. How to Protect Yourself & Others from COVID-19 In addition to basic health and hygiene practices, like handwashing, CDC recommends some prevention actions at all COVID-19 hospital admission levels, which include: Staying Up to Date with COVID-19 Vaccines COVID-19 vaccines help your body develop protection from the virus that causes COVID-19. Although vaccinated people sometimes get infected with the virus that causes COVID-19, staying up to date on COVID-19 vaccines significantly lowers the risk of getting very sick, being hospitalized, or dying from COVID-19. CDC recommends that everyone stay up to date on their COVID-19 vaccines, especially people with weakened immune systems. Improving Ventilation and Spending Time Outdoors Improving ventilation (moving air into, out of, or within a room) and filtration (trapping particles on a filter to remove them from the air) can help prevent virus particles from accumulating in indoor air. Improving ventilation and filtration can help protect you from getting infected with and spreading the virus that causes COVID-19. Spending time outside when possible instead of inside can also help: Viral particles spread between people more readily indoors than outdoors. Getting Tested for COVID-19 Get tested if you have COVID-19 symptoms. A viral test tells you if you are infected with the virus that causes COVID-19. If you have COVID-19 symptoms, you should get tested for COVID-19 immediately. There are some additional prevention actions that may be done at any level, but CDC especially recommends considering in certain circumstances or at medium or high COVID-19 hospital admission levels: Wearing Masks or Respirators Masks are made to contain droplets and particles that you breathe, cough, or sneeze out. A variety of masks are available. Some masks provide a higher level of protection than others. Respirators (for example, N95) are made to protect you by fitting closely on the face to filter out particles, including the virus that causes COVID-19. They can also block droplets and particles you breathe, cough, or sneeze out so you do not spread them to others. Respirators (for example, N95) provide higher protection than masks. Increasing Space and Distance Small particles that people breathe out can contain virus particles. The closer you are to a greater number of people, the more likely you are to be exposed to the virus that causes COVID-19. To avoid this possible exposure, you may want to avoid crowded areas, or keep distance between yourself and others. These actions also protect people who are at high risk for getting very sick from COVID-19 in settings where there are multiple risks for exposure. How to Manage Common Symptoms Associated with COVID for Adults Fever- Fever is a temperature over 100.4 F and can occur when the body is fighting an infection. To help treat a fever: Drink plenty of fluids and stay well hydrated. Eat small amounts of easy to digest food. Rest. Your body needs rest to recover, but getting up and moving around the house frequently is a good idea. You should try to continue doing your normal daily activities (bathing, toileting, grooming, cooking), though you will probably feel tired, and need to rest often. Avoid any heavy activity or exercise, as this will increase your body temperature. Dress in light clothing and stay covered in a light sheet. Keep the room temperature cool. Take a slightly warm (not cold or cool) bath, or apply damp washcloths to the forehead and wrists. Cough- Cough is a common symptom associated with COVID and can be bothersome. To help treat a cough: Stay well hydrated. Try warm water or tea with lemon and/or honey to help soothe the cough. Use a humidifier to add moisture to the air. Try a product with menthol, like a cough drop or a rub for your chest such as Vicks, which can help reduce cough. Try cough drops. Avoid smoking and other strong odors or perfumes. Try breathing exercises to keep your lungs open and clear. Take a big deep breath through your nose and hold for 5 seconds before slowly releasing. Repeat frequently, while you are awake. Congestion- Runny nose or nasal congestion can occur with COVID. Treatment can help relieve symptoms: Try OTC nasal saline spray, or nasal saline rinse to relieve mucus congestion. Nasal strips can help keep nasal passages open, to increase airflow. Elevating your head with an extra pillow in bed can help reduce congestion. Using a humidifier can increase moisture in the air, and make breathing easier. Sore Throat- Another common symptom with COVID, can be managed at home by: Stay well hydrated. Gargle with salt water - mix teaspoon salt with 1 cup of warm water and gargle. This helps to loosen mucus in the back of the throat and may reduce discomfort. Try ice chips, popsicles or lozenges to soothe the throat. Nausea/Vomiting/Diarrhea- These are common symptoms, and staying hydrated is most important. If you are nauseous or vomiting, start with small sips of water every 10-15 minutes and increase as tolerated. You can try sucking an ice cube too. If tolerating, you can try pedialyte or Gatorade, or flat sprite or damien-jc. Start slowly and increase as you are able to. Instead of meals, try smaller, more frequent snacks. Try eating bland foods like crackers, toast, rice, and applesauce. Avoid spicy, greasy or fried foods and dairy containing foods. Even if you aren't feeling hungry due to lack of smell or taste, it is important to try to take in some food when you are able. After drinking and eating, rest in an upright position for up to two hours as needed to help decrease nauseous feelings. Try closing your eyes, avoid moving and watching TV. Avoid strong odors that can make you feel more nauseated. When to seek emergency medical attention Look for emergency warning signs for COVID-19. If having any of these symptoms, seek emergency medical care immediately: Trouble breathing Persistent pain or pressure in the chest New confusion Inability to wake or stay awake Bluish lips or face *This list is not all possible symptoms. Please call your medical provider for any other symptoms that are severe or concerning to you. FACT SHEET FOR PATIENTS, PARENTS, AND CAREGIVERS EMERGENCY USE AUTHORIZATION (EUA) OF PAXLOVID FOR CORONAVIRUS DISEASE 2019 (COVID-19) You are being given this Fact Sheet because your healthcare provider believes it is necessary to provide you with PAXLOVID for the treatment of kzzt-tz-sqxcohru coronavirus disease (COVID-19) caused by the SARS-CoV-2 virus. This Fact Sheet contains information to help you understand the risks and benefits of taking the PAXLOVID you may receive. This Fact Sheet also contains information about how to take PAXLOVID and how to report side effects or problems with the appearance or packaging of PAXLOVID. The U.S. Food and Drug Administration (FDA) has issued an Emergency Use Authorization (EUA) to make PAXLOVID available for the treatment of rnlt-bg-wbqsmiyu COVID-19 in adults and children 12 years of age and older weighing at least 88 pounds (40 kg) who are at high risk for progression to severe COVID-19, including hospitalization or (for more details about an EUA please see What is an Emergency Use Authorization? at the end of this document). Read this Fact Sheet for information about PAXLOVID. Talk to your healthcare provider about your options or if you have any questions. It is your choice to take PAXLOVID. What is COVID-19? COVID-19 is caused by a virus called a coronavirus. You can get COVID-19 through close contact with another person who has the virus. COVID-19 illnesses have ranged from very suxe-qi-qxueqf, including illness resulting in . While information so far suggests that most COVID-19 illness is mild, serious illness can happen and may cause some of your other medical conditions to become worse. Older people and people of all ages with severe, long lasting (chronic) medical conditions like heart disease, lung disease, and diabetes, for example seem to be at higher risk of being hospitalized for COVID-19. What is PAXLOVID? PAXLOVID is a medicine that is available under EUA for the treatment of bwbg-wd-efgwmodb COVID-19 in adults and children 12 years of age and older weighing at least 88 pounds (40 kg) who are at high risk for progression to severe COVID-19, including hospitalization or . Although PAXLOVID is FDA-approved for the treatment of COVID-19 in certain adults (see section What other treatment choices are there?), PAXLOVID use in children remains investigational because it is still being studied. There is limited information about the safety and effectiveness of using PAXLOVID to treat children with kdrh-ce-wxqizicf COVID-19. What is the most important information I should know about PAXLOVID? PAXLOVID can interact with other medicines causing severe or life-threatening side effects or . It is important to know the medicines that should not be taken with PAXLOVID. Do not take PAXLOVID if: you are taking any of the following medicines: o alfuzosin o amiodarone o apalutamide o carbamazepine o colchicine o dihydroergotamine o dronedarone o eletriptan o eplerenone o ergotamine o finerenone o flecainide o flibanserin o ivabradine o lomitapide o lovastatin o lumacaftor/ivacaftor o lurasidone o methylergonovine o midazolam (oral) o naloxegol o phenobarbital o phenytoin o pimozide o primidone o propafenone o quinidine o ranolazine o rifampin o rifapentine o [place] Wort (hypericum perforatum) o sildenafil (Revatio ) for pulmonary arterial hypertension o silodosin o simvastatin o tolvaptan o triazolam o ubrogepant o voclosporin These are not the only medicines that may cause serious or life-threatening side effects if taken with PAXLOVID. PAXLOVID may increase or decrease the levels of multiple other medicines. It is very important to tell your healthcare provider about all of the medicines you are taking because additional laboratory tests or changes in the dose of your other medicines may be necessary during treatment with PAXLOVID. Your healthcare provider may also tell you about specific symptoms to watch out for that may indicate that you need to stop or decrease the dose of some of your other medicines. you are allergic to nirmatrelvir, ritonavir, or any of the ingredients in PAXLOVID. See the end of this leaflet for a complete list of ingredients in PAXLOVID. See What are the important possible side effects of PAXLOVID? for signs and symptoms of allergic reactions. What should I tell my healthcare provider before I take PAXLOVID? Tell your healthcare provider if you: have kidney problems. You may need a different dose of PAXLOVID. have liver problems, including hepatitis. have Human Immunodeficiency Virus 1 (HIV-1) infection. PAXLOVID may lead to some HIV-1 medicines not working as well in the future. are or plan to become . It is not known if PAXLOVID can harm your unborn baby. Tell your healthcare provider right away if you are or if you become . are or plan to breastfeed. It is not known if PAXLOVID can pass into your breast milk. Talk to your healthcare provider about the best way to feed your baby during treatment with PAXLOVID. Some medicines may interact with PAXLOVID and may cause serious side effects. Tell your healthcare provider about all the medicines you take, including prescription and luhk-jtp-ajkfrag medicines, vitamins, and herbal supplements. Your healthcare provider can tell you if it is safe to take PAXLOVID with other medicines. You can ask your healthcare provider or pharmacist for a list of medicines that interact with PAXLOVID. Do not start taking a new medicine without telling your healthcare provider. Tell your healthcare provider if you are taking combined control (hormonal contraceptive). PAXLOVID may affect how your hormonal contraceptives work. Females who are able to become should use another effective alternative form of contraception or an additional barrier method of contraception during treatment with PAXLOVID. Talk to your healthcare provider if you have any questions about contraceptive methods that might be right for you. How do I take PAXLOVID? Take PAXLOVID exactly as your healthcare provider tells you to take it. PAXLOVID consists of 2 medicines: nirmatrelvir tablets and ritonavir tablets. The 2 medicines are taken together 2 times each day for 5 days. Nirmatrelvir is an oval, pink tablet. Ritonavir is a white or off-white tablet. PAXLOVID is available in 2 Dose Packs (see Figures A and B below). Your healthcare provider will prescribe the PAXLOVID Dose Pack that is right for you. If you have kidney disease, your healthcare provider may prescribe a lower dose (see Figure B). Talk to your healthcare provider to make sure you receive the correct Dose Pack. Do not remove your PAXLOVID tablets from the blister card before you are ready to take your dose. Take your first dose of PAXLOVID in the morning or evening, depending on when you brick picker your prescription, or as your healthcare provider tells you to. Swallow the tablets whole. Do not chew, break, or crush the tablets. Take PAXLOVID with or without food. Do not stop taking PAXLOVID without talking to your healthcare provider, even if you feel better. If you miss a dose of PAXLOVID within 8 hours of the time it is usually taken, take it as soon as you remember. If you miss a dose by more than 8 hours, skip the missed dose and take the next dose at your regular time. Do not take 2 doses of PAXLOVID at the same time. If you take too much PAXLOVID, call your healthcare provider or go to the nearest hospital emergency room right away. If you are taking a ritonavir- or cobicistat-containing medicine to treat hepatitis C or HIV-1 infection, you should continue to take your medicine as prescribed by your healthcare provider. Talk to your healthcare provider if you do not feel better or if you feel worse after 5 days. What are the important possible side effects of PAXLOVID? PAXLOVID may cause serious side effects, including: Allergic reactions, including severe allergic reactions (anaphylaxis) have happened during treatment with PAXLOVID. Stop taking PAXLOVID and get medical help right away if you get any of the following symptoms of an allergic reaction: o skin rash, hives, blisters or peeling skin o painful sores or ulcers in the mouth, nose, throat or genital area o swelling of the mouth, lips, tongue or face o trouble swallowing or breathing o throat tightness o hoarseness Liver Problems. Tell your healthcare provider right away if you get any of the following signs and symptoms of liver problems during treatment with PAXLOVID: o loss of appetite o yellowing of your skin and the white of eyes o dark-colored urine o pale colored stools o itchy skin o stomach-area (abdominal) pain The most common side effects of PAXLOVID include: altered sense of taste and diarrhea. Other possible side effects include: headache vomiting abdominal pain nausea high blood pressure feeling generally unwell These are not all the possible side effects of PAXLOVID. For more information, ask your healthcare provider or pharmacist. What other treatment choices are there? PAXLOVID is FDA-approved for the treatment of wrnv-ds-bknjxmrm COVID-19 in certain adults; however, there are not sufficient quantities of the approved presentations (i.e., dose packs) of PAXLOVID at this time. This EUA continues to authorize the emergency use of PAXLOVID for the approved patient population to ensure continued access in order to meet the public health need. VEKLURY (remdesivir) is FDA-approved for the treatment of euiq-cg-inyufhga COVID-19 in certain adults and children. Talk with your healthcare provider to see if VEKLURY is appropriate for you. For information on the emergency use of other medicines that are authorized by FDA to treat people with COVID-19, please go to https://www.fda.gov/emergency-prep uuelenye-gpw-escoyftd/qga-apbao-pj dvpjjvrz-eml-khyhif-framework/stacey nenad-lgi-cozwvziqikqoo. Your healthcare provider may talk with you about clinical trials for which you may be eligible. It is your choice to be treated or not to be treated with PAXLOVID. Should you decide not to receive it or for your child not to receive it, it will not change your standard medical care. What if I am or ? There is limited experience treating women or mothers with PAXLOVID. For a mother and unborn baby, the benefit of taking PAXLOVID may be greater than the risk from the treatment. If you are , discuss your options and specific situation with your healthcare provider. If you are , discuss your options and specific situation with your healthcare provider. How do I report side effects or problems with the appearance or packaging of PAXLOVID? Contact your healthcare provider if you have any side effects that bother you or do not go away. Report side effects or problems with the appearance or packaging of PAXLOVID (see Figures A and B above for examples of PAXLOVID Dose Packs) to FDA MedWatch at www.fda.gov/medwatch or call 3-754-RSQ-0919 or you can report side effects to [employer]. at the contact information provided below. How should I store PAXLOVID? Store PAXLOVID tablets at room temperature, between 68?F to 77?F (20?C to 25?C). Keep PAXLOVID and all medicines out of the reach of children. What if I have questions about the expiration date for my PAXLOVID? The FDA has extended the expiration date (shelf-life) for some lots of PAXLOVID. To find the extended expiration date, enter the lot number found on the side of carton or bottom of blister pack at this website: https://www.paxlovidlotexPanelClaw.Daptiv/ or talk with your healthcare provider. Information on the authorized shelf-life extensions for PAXLOVID may also be found at https://www.fda.gov/emergency-prep jttbpiwz-dso-oxjygqji/rse-xxirl-cj niklxrwr-myd-ddzoqk-framework/expi zgeogn-wnzcyo-krwzwasmt. How can I learn more about COVID-19? Ask your healthcare provider. Visit https://www.cdc.gov/COVID19. Contact your local or state public health department. What is an Emergency Use Authorization (EUA)? The [place] FDA has made PAXLOVID available under an emergency access mechanism called an Emergency Use Authorization (EUA). The EUA is supported by a [employer] of Health and Human Services (HHS) declaration that circumstances exist to justify the emergency use of drugs and biological products during the COVID-19 pandemic. In issuing an EUA, the FDA has determined, among other things, that based on the total amount of scientific evidence available including data from adequate and well-controlled clinical trials, if available, it is reasonable to believe that the product may be effective for diagnosing, treating, or preventing COVID-19, or a serious or life-threatening disease or condition caused by COVID-19; that the known and potential benefits of the product, when used to diagnose, treat, or prevent such disease or condition, outweigh the known and potential risks of such product; and that there are no adequate, approved, and available alternatives. All of these criteria must be met to allow for the product to be available under an EUA. The EUA for PAXLOVID is in effect for the duration of the COVID-19 declaration justifying emergency use of this product, unless the relevant EUA declaration is terminated or the EUA revoked (after which the products may no longer be used under the EUA). What are the ingredients in PAXLOVID? Active ingredient: nirmatrelvir and ritonavir Nirmatrelvir inactive ingredients: colloidal silicon dioxide, croscarmellose sodium, lactose monohydrate, microcrystalline cellulose, and sodium stearyl fumarate. Film-coating contains: hydroxy propyl methylcellulose, iron oxide red, polyethylene glycol, and titanium dioxide. Ritonavir inactive ingredients: anhydrous dibasic calcium phosphate, colloidal silicon dioxide, copovidone, sodium stearyl fumarate, and sorbitan monolaurate. The film coating may contain: colloidal anhydrous silica, colloidal silicon dioxide, hydroxypropyl cellulose, hypromellose, polyethylene glycol, polysorbate 80, talc, and titanium dioxide. Additional Information For general questions, visit the website or call the telephone number provided below. Website: [email or web address] Telephone number: (5-141-L72-PACK) Distributed by [employer] [address] [id number] Revised: 01/2023 documented in this encounter [facility] 01-29-2024 Telephone encounter Note PATIENT NOTIFIED OF SAME. Patient scheduled for a virtual visit 01/30/2024 [facility] 01-29-2024 Miscellaneous Notes PATIENT NOTIFIED OF SAME. Patient scheduled for a virtual visit 01/30/2024 I would recommend symptom management with OTCs, given her age she could consider taking Paxlovid also. She would need to do a virtual appointment to discuss this. Patient calling, states that she took an at home covid test and it is positive. She started yesterday with a sore throat, runny nose, and slight cough yesterday. Patient is asking if anything would be recommended for her to do at this time. Please advise. documented in this encounter [facility] 01-29-2024 Telephone encounter Note I would recommend symptom management with OTCs, given her age she could consider taking Paxlovid also. She would need to do a virtual appointment to discuss this. [facility] 01-29-2024 Telephone encounter Note Patient calling, states that she took an at home covid test and it is positive. She started yesterday with a sore throat, runny nose, and slight cough yesterday. Patient is asking if anything would be recommended for her to do at this time. Please advise. [facility] 12-18-2023 Miscellaneous Notes Pharmacist Refill Authorization Review Name: Tania Romero Date: 12/18/2023 Time: 4:52 PM Refill authorization request(s) received and reviewed under effective consult agreement. Upon review, did confirm that an active patient-provider relationship exists and that the prescriber is a participating physician under the consult agreement. Last office visit in this department: 11/18/2023 Bg Chavarria MD Last distance health visit in this department: 03/15/2022 Angus Silveira MD Next appointment in this department: 03/17/2024 Bg Chavarria MD The medication(s) fall under the following categories: Category 3: Medication(s) does not qualify for pharmacist renewal due to condition or diagnosis excluded from collaborative practice agreement. Renewal request sent to provider for review. Requested Prescriptions Pending Prescriptions Disp Refills Insulin Syringe-Needle U-100 (BD INSULIN SYRINGE) 1 mL 25 x 1 syrg 12 Each 3 Sig: Use for b12 injection monthly Number of refills approved in this encounter: 0 Number of refills forwarded to provider for review: 1 Number of refills denied in this encounter: 0 Diya Julio RPh documented in this encounter [facility] 11-18-2023 History of Present illness Narrative This note was created using [employer]. Subjective Tania Romero is a 83 year old female. Patient presents with: Follow Up SUBJECTIVE: Tania Romero is a 83 year old year old lady here today for follow up appointment for review of medical conditions. Working on tighter control of sugars. Down to 100s and 90 once. Idenitfied foods that can eat without sugars going up. Noted that has lost weight with cutting out a lot of carb. Does try to get more protein in .Does like fish and vegetables, but does not so much. She does enjoy cooking, but cannot stand for long due to back pain. Has an adjustable stool, but cannot adjust on her own (weight not enough). She wondered about option for diabetic education. Stable on current meds and management overall. See assessment and plan for other issues addressed. 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 Vasquez (worse from 2011 to 2012) Low vitamin B12 level Multiple sclerosis (HCC) 05/31/2016 Osteopenia Type 2 diabetes mellitus, without long-term current use of insulin ([facility]) 01/24/2021 PAST SURGICAL HISTORY Procedure Laterality Date ABDOMINAL SURGERY HX CATARACT EXTRACTION HX Right 04/25/2015 Cataract surgery DELIVERY ONLY , low cervical COLONOSCOPY FLX DX W/COLLJ SPEC WHEN PFRMD 07/31/2000 Colonoscopy COLONOSCOPY FLX DX W/COLLJ SPEC WHEN PFRMD 09/18/2006 COLONOSCOPY FLX DX W/COLLJ SPEC WHEN PFRMD 07/01/2012 Colonoscopy COLONOSCOPY FLX DX W/COLLJ SPEC WHEN PFRMD 04/30/2017 Colonoscopy EYE SURGERY HX HERNIA REPAIR HX JOINT REPLACEMENT HX LIG/TRNSXJ FLP TUBE ABDL/VAG APPR UNI/BI Tubal ligation PAST SURGICAL HISTORY OF 12/31/2002 lap left ing hernia PAST SURGICAL HISTORY OF 10/03/2012 bunionectomy (Dr. Araya) TONSILLECTOMY HX TONSILLECTOMY PRIMARY/SECONDARY <AGE 12 Tonsillectomy TOTAL HIP REPLACEMENT Left 02/01/2021 Current Outpatient Medications Medication Sig meloxicam (MOBIC) 7.5 mg tablet Take 1 tablet by mouth once daily. pantoprazole DR (PROTONIX) 40 mg tablet Take 1 tablet by mouth once daily for 14 days. acetaminophen (TYLENOL) 500 mg tablet Take 2 tablets by mouth every 8 hours as needed for pain. aspirin, enteric coated (ASPIRIN, ENTERIC COATED) 81 mg EC tablet Take 1 tablet by mouth two times a day for 28 days. senna (SENOKOT) 8.6 mg tab Take 1 tablet by mouth two times a day. naloxone 4 mg/actuation nasal spray (NARCAN) Use 1 spray in one nostril as needed for overdose. May repeat every 2 to 3 min in alternating nostrils until medical assistance is available cyanocobalamin 1,000 mcg/mL USE ONE ML INTO THE MUSCLE ONCE MONTHLY Cholecalciferol, Vitamin D3, 125 mcg (5,000 unit) cap Hold for 1 month then take once weekly metFORMIN ER (GLUCOPHAGE XR) 500 mg 24 hr tablet Take 1 tablet by mouth daily with breakfast. ciclopirox (LOPROX) 0.77 % cream Apply to affected area twice daily. use for 1 week after lesion resolves alendronate (FOSAMAX) 70 mg tablet Take 1 tablet by mouth one time a week. Take with a full glass of water, on an empty stomach; do NOT lie down for 30minutes. Insulin Syringe-Needle U-100 (BD INSULIN SYRINGE) 1 mL 25 x 1 syrg Use for b12 injection monthly Lactobacillus acidophilus (PROBIOTIC ORAL) Take by mouth. calcium carbonate (TUMS ORAL) Take by mouth as needed. Lactase (LACTAID FAST ACT) 9,000 unit chew Uses as needed conjugated estrogens (PREMARIN) vaginal cream Use 0.5 g vaginally as needed. for 3 weeks then off for 1 week No current facility-administered medications for this visit. Review of Systems Objective BP 112/74 Pulse 78 Resp 16 Ht 152.4 cm (5') Wt 50.3 kg (110 lb 12.8 oz) BMI 21.64 kg/m Last 5 Encounter Wt Readings: Date: Wt: 11/18/2023 50.3 kg (110 lb 12.8 oz) 07/15/2023 52.6 kg (116 lb) 06/30/2023 57.7 kg (127 lb 3.3 oz) 06/21/2023 51.3 kg (113 lb) 06/20/2023 52.2 kg (115 lb) No waist measurement recorded Estimated body mass index is 21.64 kg/m as calculated from the following: Height as of this encounter: 152.4 cm (5'). Weight as of this encounter: 50.3 kg (110 lb 12.8 oz). Last 5 Encounter BP Readings: Date: BP: 11/18/2023 112/74 07/15/2023 123/78 06/30/2023 159/86 06/27/2023 101/56 06/21/2023 88/53 Physical Exam Constitutional: Appearance: Normal appearance. HENT: Head: Normocephalic. Eyes: Conjunctiva/sclera: Conjunctivae normal. Cardiovascular: Rate and Rhythm: Normal rate and regular rhythm. Heart sounds: Normal heart sounds. Pulmonary: Effort: Pulmonary effort is normal. Breath sounds: Normal breath sounds. Musculoskeletal: Right lower leg: No edema. Left lower leg: No edema. Skin: General: Skin is warm and dry. Neurological: General: No focal deficit present. Mental Status: She is alert and oriented to person, place, and time. Psychiatric: Attention and Perception: Attention and perception normal. Mood and Affect: Mood and affect normal. Speech: Speech normal. Behavior: Behavior normal. Thought Content: Thought content normal. Cognition and Memory: Cognition normal. Judgment: Judgment normal. Hemoglobin A1C (%) Date Value 06/21/2023 6.8 03/08/2023 6.5 02/19/2022 6.6 06/27/2021 6.9 10/17/2020 6.2 05/31/2020 6.5 11/03/2019 6.5 04/23/2019 6.3 Hemoglobin A1C (POCT) (%) Date Value 11/18/2023 6.6 11/09/2022 6.3 Component Latest Ref Rng & Units 03/08/2023 06/21/2023 06/28/2023 06/29/2023 06/30/2023 07/02/2023 Protein, Total 6.3 - 8.0 g/dL 7.0 6.6 Albumin 3.9 - 4.9 g/dL 4.3 3.8 (L) Calcium 8.5 - 10.2 mg/dL 9.4 9.1 8.3 (L) 8.0 (L) 8.5 8.3 (L) Bilirubin, Total 0.2 - 1.3 mg/dL 0.4 0.2 Alkaline Phosphatase 34 - 123 U/L 84 178 (H) AST 13 - 35 U/L 19 23 ALT 7 - 38 U/L 10 23 Glucose 74 - 99 mg/dL 115 (H) 132 (H) 166 (H) 135 (H) 117 (H) 100 (H) BUN 7 - 21 mg/dL 30 (H) 32 (H) 31 (H) 25 (H) 25 (H) 16 Creatinine 0.58 - 0.96 mg/dL 0.93 0.92 0.79 0.73 0.74 0.71 Sodium 136 - 144 mmol/L 140 137 137 137 139 140 Potassium 3.7 - 5.1 mmol/L 4.1 5.0 4.5 3.7 3.5 (L) 4.0 Chloride 97 - 105 mmol/L 103 100 100 102 105 106 (H) CO2 22 - 30 mmol/L 27 28 27 27 29 27 Anion Gap 9 - 18 mmol/L 10 9 10 8 (L) 5 (L) 7 (L) eGFR >=60 mL/min/1.73m 62 63 75 83 81 86 Cholesterol, Total <200 mg/dL 208 (H) Triglyceride <150 mg/dL 74 HDL Cholesterol >39 mg/dL 70 Non HDL Cholesterol <130 mg/dL 138 (H) Fasting Time hrs 10 VLDL Cholesterol <30 mg/dL 15 TC:HDL Ratio <5.10 2.97 LDL Cholesterol <100 mg/dL 123 (H) LDL:HDL Ratio <2.54 1.76 Hemoglobin A1C 4.3 - 5.6 % 6.5 (H) 6.8 (H) Estimated Average Glucose mg/dL 140 148 Hemoglobin A1C (%) Date Value 06/21/2023 6.8 03/08/2023 6.5 02/19/2022 6.6 06/27/2021 6.9 10/17/2020 6.2 05/31/2020 6.5 11/03/2019 6.5 04/23/2019 6.3 Hemoglobin A1C (POCT) (%) Date Value 11/18/2023 6.6 11/09/2022 6.3 Assessment and Plan Encounter Diagnosis ICD-10-CM 1. Type 2 diabetes mellitus without complication, without long-term current use of insulin (HCC) E11.9 HEMOGLOBIN A1C (POC) COMP METABOLIC PANEL HGB A1C ALBUMIN/CREAT RATIO RND UR Discussed that HgA1C has been well controlled. Does not need to be too restrictive with diet since tightly controlled already.Also had lost weight 2. Vitamin D deficiency E55.9 VITAMIN D 25 HYDROXY Will update labs and adjust dose as needed 3. Elevated LDL cholesterol level E78.00 LIPID PANEL BASIC Declines statin since wants to keep eating grapefruit 4. Chronic midline low back pain without sciatica M54.50 G89.29 Limits activity. Still likes to cook 5. Encounter for long-term current use of medication Z79.899 CBC COMP METABOLIC PANEL 6. Multiple sclerosis (HCC) G35 Not needing med(s) at this time. Continue present management with monitoring symptoms and treat as indicated. 7. SI (sacroiliac) joint inflammation (HCC) M46.1 Dr. Hopkins had referred her for PT 8. S/P hip replacement, bilateral Z96.643 Noted had right hip replacement due to osteonecrosis of joint; still some pain limited mobility but overall better. Main issue is back pain Above issues addressed with patient. Patient involved in shared decision making for management of medical issues. History and medications reviewed. Epic updated as needed Refills and/or prescriptions taken care of and meds adjusted as indicated after reviewed history, exam and labs. Health Maintenance reviewed. Updated record and/or ordered tests as recorded. Encouraged on efforts at healthy diet and regular exercise and adequate sleep. Discussed does not need to be too restrictive since sugars well controlled. Does not need to lose weight. Reviewed goal fasting glucose under 150 but under 120 would be ideal; under 180 nonfasting (but at least 90 to 120 minutes after eating), and HgA1C under 8 is fine given her age, so under 7 is great. Does not need to see a loan specialist to improve her glycemic control. Does need to get enough calories to prevent more weight loss. Taking water color class since nto able to do things like hike anymore. Still knitting. She will follow up with ortho as needed for pain issues. Bg Chavarria MD documented in this encounter [facility] 11-18-2023 Miscellaneous Notes Pt in office today. Angeline Grace MA documented in this encounter [facility] 10-16-2023 History of Present illness Narrative Radiology Service Progress Note PATIENT NAME: Tania Romero DATE OF SERVICE: October 16, 2023 TIME: 3:42 PM PATIENT IDENTITY VERIFICATION COMPLETED USING TWO (2) IDENTIFIERS: Name and Date of confirmed by patient verbally. FALL SCREENING: Has the patient had 2 falls in the last year or 1 fall with injury or currently using an Ambulatory Assistive Device (Walker, Cane, Wheelchair, Crutches, etc.)? No PATIENT GENDER DATA: Female. status: : No status: NO. PATIENT RELEVANT IMPLANT DATA REVIEWED: Not Applicable RADIOLOGY DEPARTMENT: General X-ray: Exam(s) Completed: Pelvis X-Ray: Pelvis with Hip Right and Wt. Bearing PERIPHERAL IV DATA: Not applicable SIGNED BY: DELL Cochran) October 16, 2023 3:42 PM documented in this encounter [facility] 10-16-2023 Note HNO ID: [id number] Author: NAA GARZA RT(R) Service: Radiology Author Type: Technologist Type: Progress Notes Filed: 10/16/2023 15:42 Note Text: Radiology Service Progress Note PATIENT NAME: Tania Romero DATE OF SERVICE: October 16, 2023 TIME: 3:42 PM PATIENT IDENTITY VERIFICATION COMPLETED USING TWO (2) IDENTIFIERS: Name and Date of confirmed by patient verbally. FALL SCREENING: Has the patient had 2 falls in the last year or 1 fall with injury or currently using an Ambulatory Assistive Device (Walker, Cane, Wheelchair, Crutches, etc.)? No PATIENT GENDER DATA: Female. status: : No status: NO. PATIENT RELEVANT IMPLANT DATA REVIEWED: Not Applicable RADIOLOGY DEPARTMENT: General X-ray: Exam(s) Completed: Pelvis X-Ray: Pelvis with Hip Right and Wt. Bearing PERIPHERAL IV DATA: Not applicable SIGNED BY: RT Sammie(R) October 16, 2023 3:42 PM [facility] 09-19-2023 History of Present illness Narrative Episode Visit Count: 13 Therapist That Will Accept/Oversee The Plan Of Care: Timmy Snyder Start of Care Date: 07/23/23 Onset Date: 06/27/23 (02/07/23 initial ortho appt, 02/2023 had injection) Plan of Care Certification Date: 07/23/23 Next Certification Due Date: 09/22/23 REHABILITATION AND SPORTS THERAPY PHYSICAL THERAPY TREATMENT NOTE ASSESSMENT: Tania Romero tolerated the session with decreased symptoms and expected muscle soreness. She demonstrated improvements in decreased side bent right posture post PT session . The patient will continue to benefit from ongoing skilled physical therapy to progress toward set goals. PLAN FOR NEXT VISIT: assess use of decompression exercises SUBJECTIVE: patient reports some right hip pain with standing for prolonged time or with cooking activities Pain: Pain Pain Level: 0 Pain Location: Hip - Right, Back OBJECTIVE MEASURES WITH LEVEL OF FUNCTION: TREATMENT: Therapeutic Exercise: 1: nu step level 4 seat 7 ue/le 8 min educated patient on affects of side bent right posture on spine and hips 2: sit to stand 19 inch heihgt , 17 inch height 10 x each , 3: *supine right leg lengthener with left arm lengthener 5 second hold x 5 x 2 4: *supine bilateral leg lengthener 5 second hold x 5 x 2 5: *supine elbow press 5 second hold x 5 then combined elbow bress with bilateral leg lengthener 5 second hold x 5 6: *morning stretch 10 second hold x 5 x 2 7: standing hip hike left 5 x with ue support 8: *supine isometric left hip hike verses manual resistance 5second hold x 5 x 2 9: reviewed HEP for purpose and any redundencey Skilled Intervention: Patient was educated in proper exercise technique and purpose for exercises. Reviewed and educated patient on additions/changes for home exercise program as above (*). Skilled judgment was used in selection of appropriate interventions. Provided written instruction for home exercise program to facilitate proper performance and compliance. Patient education as noted. Billing KX Modifier : Therapist attests that services rendered are medically necessary. Therapeutic Exercise Treatment Minutes: 55 Skilled Treatment Time Minutes (timed and untimed codes): 55 Total Session Time (minutes): 57 Session Start Time : 1058 Session Stop Time : 1155 Fabian Haq PTA documented in this encounter [facility] 09-10-2023 History of Present illness Narrative Episode Visit Count: 10 Therapist That Will Accept/Oversee The Plan Of Care: Timmy Snyder Start of Care Date: 07/23/23 Onset Date: 06/27/23 (02/07/23 initial ortho appt, 02/2023 had injection) Plan of Care Certification Date: 07/23/23 Next Certification Due Date: 09/22/23 REHABILITATION AND SPORTS THERAPY PHYSICAL THERAPY TREATMENT NOTE ASSESSMENT: Tania Romero tolerated the session with expected muscle soreness. She demonstrated improvements in hip strength and exercise tolerance. Pt demonstrates good standing balance and overall mobility for her age. The patient will continue to benefit from ongoing skilled physical therapy to progress toward set goals. PLAN FOR NEXT VISIT: continue to progress B hip strength SUBJECTIVE: reports minimal to no hip pain. reports limited walking distance/tolerance, mostly d/t her back. has been doing side leg lifts at home since last week, thinks they're getting a little easier Pain: Pain Pain Level: 0 Pain Location: Hip - Right Description: Sharp OBJECTIVE MEASURES WITH LEVEL OF FUNCTION: LE Strength R Hip ABduction: 3/5 (3 to 3+/5) R Ankle Plantar Flexion: 4/5 L Hip ABduction: 4-/5 L Ankle Plantar Flexion: 3+/5 Balance Static Standing Balance: Tandem Stance, Single Leg Stance Tandem Stance: 30 seconds Single Leg Stance: 12-15 seconds R/L TREATMENT: Therapeutic Exercise: 1: Nu-step L4x8' seat 7 B UE/LE 2: standing hip Abd 10xR/L, with orange TB 10xR/L 3: standing calf raises 10xB, SL 10xR/L (increased difficulty/weakness L vs R) 4: standing calf stretch R/L 5: standing mini squats 10x 6: s/l hip ABd 1#R/L 20xea 7: standing lumbar flexion & extension 5xea Skilled Intervention: Patient was educated in proper exercise technique and purpose for exercises. Skilled judgment was used in selection of appropriate interventions. Correct performance of therapeutic exercises was facilitated with verbal, visual, and tactile cuing. Educated patient on rationale for performing exercises in regards to improving fitness, increase ease of ADL, and ROM and function . Patient education as noted. PT in constant attendance during use of Nu-step to review current status, monitor effort throughout activity and adjust set up as needed for maximum therapeutic benefit. Neuromuscular Re-Education: 1: tandem & SLS activities R/L Skilled Intervention: Skilled judgment used to assess appropriate program for balance and coordination activity. Patient education as noted. Billing Therapeutic Exercise Treatment Minutes: 53 Skilled Treatment Time Minutes (timed and untimed codes): 53 Total Session Time (minutes): 53 Session Start Time : 1056 Session Stop Time : 1149 Yana Almaraz PT documented in this encounter [facility] 08-19-2023 History of Present illness Narrative Episode Visit Count: 7 Therapist That Will Accept/Oversee The Plan Of Care: Timmy Snyder Start of Care Date: 07/23/23 Onset Date: 06/27/23 (02/07/23 initial ortho appt, 02/2023 had injection) Plan of Care Certification Date: 07/23/23 Next Certification Due Date: 09/22/23 REHABILITATION AND SPORTS THERAPY PHYSICAL THERAPY PROGRESS REPORT PLAN OF CARE UPDATE: Assessment: Tania Romero demonstrates improvements in rising from a chair, gait, LE strength, and time with 10 MWT and 5xSTS. She has met or progressed toward goals. Patient continues to present with impairments in gait, posture (scoliosis), hip range of motion, and and strength that interfere with walking in the house, walking in the community, stair negotiation, heavy exertion, cooking, standing . A second order for physical therapy was placed on 08/07/23 to include low back pain. Current prognosis is Excellent due to: current objective clinical presentation, positive past response to therapy . She will benefit from continued skilled therapy services to meet the updated goals for this plan of care as noted below. Goals for Episode of Care: created on 07/23/23 through 09/22/23. Updated 08/19/23. [place] in home exercise program. (Met) Patient will decrease pain rating by 2 points to meet minimal clinical important difference for numeric pain rating scale. (met) Patient will increase active ROM of R hip to WFL to allow pt to to improve postural alignment, to improve performance of ADLs, and to improve gait mechanics / gait pattern (progressing) Patient will demonstrate increase in R lower extremity, R hip strength to 4+ to 5/5 during manual muscle testing in order to improve function for home management tasks and prior functional tasks. (progressing) Patient will improve 10MWT to 1.1 m/s with approp assistive device to demonstrate improvement in functional community ambulation. (met with SPC) Patient will improve 5 time sit to stand to demonstrate improvement in functional lower extremity strength. (met) Normal gait. (progressing) Reciprocal stair negotiation. (met) Patient Goals: to resume pain free motion and Indep functional mobility and gait (progressing) Planned Interventions, Frequency, and Duration: 1x/week, 4 weeks Total Number of Visits Planned: 4 Patient to be seen for Therapeutic exercise (75076), Neuromuscular re-education (34075), Manual therapy (56595), Therapeutic activities (58848), Self-penitentiary management (50367), Gait Training (66800) PLAN FOR NEXT VISIT: Progressive hip/LE strengthening and postural strengthening. SUBJECTIVE: Tania reports improvements in right hip mobility over the last month. She reached out to her doctor to inquire when she can resume driving.She will be 8 weeks post op on ; she was told her precautions would be in place for 8 weeks but she messaged her surgeon to clarify. Her exercises are going well. Functional Limitations: walking in the house, walking in the community, stair negotiation, heavy exertion, cooking, standing Pain: Pain Pain Level: 2 Pain Location: Hip - Right PROMIS Scales Higher is Better 08/18/2023 08/08/2023 07/20/2023 Phys Func - Score - 32 (moderate dysfunction) - Phys Func - Percentile - 4 % - Self-Eff Symptom - Score 50 (Average) - 60 (High) Self-Eff Symptom - Percentile 50 % - 84 % T-scores: mean of general population = 50. 5 points is clinically meaningfully difference Percentiles provide an indication of how the patient's score ranks in relation to the general population. Higher percentile rankings indicate better function/quality of life. 50th percentile is the average of the general population and indicates half of respondents had a worse score. OBJECTIVE MEASURES WITH LEVEL OF FUNCTION: Posture / Alignment Lumbo - Pelvic Alignment: Scoliosis with trunk lean to right. Kyphosis. In static standing, hips are positioned anterior to shoulders and knees LE AROM R Hip Flexion: 90 Degrees LE Strength R Hip Flexion (L2): 3+/5 R Hip Internal Rotation: 3+/5 R Hip External Rotation: 3+/5 R Knee Extension (L3): 4+/5 R Knee Flexion: 4+/5 R Ankle Dorsiflexion (L4): 4+/5 L Hip Flexion (L2): 4+/5 L Hip Internal Rotation: 4+/5 L Hip External Rotation: 3+/5 L Knee Extension (L3): 5/5 L Knee Flexion: 5/5 L Ankle Dorsiflexion (L4): 5/5 Gait Gait: Modified Independent Gait Device: Cane Gait Observation: sustained right trunk lean to right. Pelvis deviated left. Stairs: Modified Independent Stairs: Reciprocal pattern with single HR and SPC when ascending and no assistive device when descending. Functional Performance Test Results Assistive Device: Cane 10 Meter Walk Test Trial 1 (seconds): 5.63 10 Meter Walk Test Trial 2 (seconds): 0.07 10 Meter Walk Test Average (m/sec): 2.11 5 Times Sit to Stand Test : 13.23 sec (table at 18 inch) TREATMENT: Therapeutic Exercise: 1: -Reassessment 2: -education on objective findings, status of PT goals, and POC 3: standing posture correction 4: standing lateral weight shift x10 each way 5: bridge x10 6: supine horizontal abduction with band 2x10 7: stair negotation 1 flight with single HR. SPC ascending and no assistive device descending Skilled Intervention: Patient was educated in proper exercise technique and purpose for exercises. Skilled judgment was used in selection of appropriate interventions. Correct performance of therapeutic exercises was facilitated with verbal, visual, and tactile cuing. Patient education as noted. Billing Therapeutic Exercise Treatment Minutes: 43 Skilled Treatment Time Minutes (timed and untimed codes): 43 Total Session Time (minutes): 43 Session Start Time : 1335 Session Stop Time : 1418 Melita Castañeda PT DPT documented in this encounter [facility] 2023 History of Present illness Narrative Program_ID:[id number] Access Code: [email or web address] URL: [email or web address] Date: 2023 Prepared By: Melita Castañeda Program Notes Exercises - Shoulder External Rotation and Scapular Retraction with Resistance - 1 x daily - 7 x weekly - 2-3 - 10 Episode Visit Count: 6 Therapist That Will Accept/Oversee The Plan Of Care: Timmy Snyder Start of Care Date: 07/23/23 Onset Date: 06/27/23 (02/07/23 initial ortho appt, 02/2023 had injection) Plan of Care Certification Date: 07/23/23 Next Certification Due Date: 09/22/23 Patient Identified by Name and Date of : Yes REHABILITATION AND SPORTS THERAPY PHYSICAL THERAPY TREATMENT NOTE ASSESSMENT: Tania Romero tolerated the session with expected muscle soreness. She demonstrated adequate gait mechanics and stability when ambulating with both walking stick (LUE) and SPC (RUE). She demonstrated difficulty with posture correction in standing, requiring tactile cueing to promote improved alignment and hip/core activation during exercise. The patient will continue to benefit from ongoing skilled physical therapy to progress toward set goals. PLAN FOR NEXT VISIT: PN on 08/19 visit (include back per new order); Progressive strengthening R hip/ LE. SUBJECTIVE: Tania brought her walking poles with her today. She states she felt fine after last session. Pain: Pain Pain Level: 1 Pain Location: Hip - Right OBJECTIVE MEASURES WITH LEVEL OF FUNCTION: Posture / Alignment Lumbo - Pelvic Alignment: Scoliosis with trunk lean to right. Kyphosis. In static standing, hips are positioned anterior to shoulders and knees Effects of Posture Correction: able to improve saggital plane alignment TREATMENT: Therapeutic Exercise: 1: forward step up 4 x10 R, 6 2x10 R 2: DL heel raise 2x10 3: standing bilat pull down 2x10 bilat L1 (cueing for posture) 4: posture correction in sitting and standing 5: *bilat ER in sitting L1 3x5 (discussed option to do without resistance if needed) Skilled Intervention: Patient was educated in proper exercise technique and purpose for exercises. Reviewed and educated patient on additions/changes for home exercise program as above (*). Skilled judgment was used in selection of appropriate interventions. Provided written instruction for home exercise program to facilitate proper performance and compliance. Correct performance of therapeutic exercises was facilitated with verbal, visual, and tactile cuing. Billing Therapeutic Exercise Treatment Minutes: 34 Skilled Treatment Time Minutes (timed and untimed codes): 34 (patient arrived 15 minutes late to scheduled visit.) Total Session Time (minutes): 34 Session Start Time : 1015 Session Stop Time : 1049 Melita Castañeda PT, DPT documented in this encounter [facility] 08-12-2023 History of Present illness Narrative Episode Visit Count: 5 Therapist That Will Accept/Oversee The Plan Of Care: Timmy Snyder Start of Care Date: 07/23/23 Onset Date: 06/27/23 (02/07/23 initial ortho appt, 02/2023 had injection) Plan of Care Certification Date: 07/23/23 Next Certification Due Date: 09/22/23 Patient Identified by Name and Date of : Yes REHABILITATION AND SPORTS THERAPY PHYSICAL THERAPY TREATMENT NOTE ASSESSMENT: Tania Romero tolerated the session with no issues. She demonstrated reciprocal step pattern with adequate step length when ambulating with FWW . The patient will continue to benefit from ongoing skilled physical therapy to progress toward set goals. PLAN FOR NEXT VISIT: Assess gait with bilateral walking sticks. Progressive strengthening R hip/ LE. PN on 08/19 visit (include back per new order); postural strengthening (bilat ER, bilat pull down) SUBJECTIVE: Tania reports continued improvements. She notices she can bend forward to tie her shoes easier and with less pain. Her back limits her walking. She alternates between walking with two walking sticks and a FWW. She typically. uses the walker when walking longer distances. Pain: Pain Pain Level: 0 Pain Location: Hip - Right OBJECTIVE MEASURES WITH LEVEL OF FUNCTION: Patient ambulates into clinic with FWW. TREATMENT: Therapeutic Exercise: 1: sit to stand 3x5 (5# DB set 2-3) 2: seated hamstring curl L3 2x12 3: *LAQ 2# 2x10 R 4: bridge 2x10 L 5: modified hip flexor stretch in supine, neutral hip extension. left hip flexed to 90 deg. 1 min. 6: hip abd iso in HL 5 hold x10 7: -edu on sitting posture; discussed use of pillow/towel roll behind back and sitting in a more firm chair when knitting Skilled Intervention: Patient was educated in proper exercise technique and purpose for exercises. Reviewed and educated patient on additions/changes for home exercise program as above (*). Skilled judgment was used in selection of appropriate interventions. Correct performance of therapeutic exercises was facilitated with verbal and tactile cuing. Patient education as noted. Gait Trainin: gait training with FWW on level surface and ramp Skilled Intervention: Facilitated proper gait cycle with the use of verbal cues for correction of gait deviations identified in the objective section above. Skilled judgment used to assess proper sizing of assistive device. Billing Therapeutic Exercise Treatment Minutes: 36 Gait Training Treatment Minutes: 4 Skilled Treatment Time Minutes (timed and untimed codes): 40 Total Session Time (minutes): 44 Session Start Time : 1332 Session Stop Time : 1416 Melita Castñaeda PT DPT documented in this encounter [facility] 08-07-2023 History of Present illness Narrative Post-op Office Visit Tania Romero 82 year old August 07, 2023 12:14 PM Surgery Date: 06/27/23 History: Tania Romero Is now 6 weeks out from right Anterior-Based/Posterior MERLE. Post-operative course has been without complication. Doing well and walking well, has some back pain that she had as an inpatient. Hip doing well, going to PT for it and improving No readmission/complications Subjective: Patient reports no pain. Overall is doing well. Walker for ambulatory aid No opioid pain medication Objective: Ambulates with walker Incision well-approximated, no drainage, normal trice-incisional erythema Arcs of motion at hip are comfortable and fluid Distally DP/PT palpable Distally S/S/SP/DP/T intact at baseline Distally DF/EHL/PF intact at baseline Negative yasmine/calf tenderness Xrays: XR reviewed from 2 week post op visit: Show components well aligned and no change in positioning from post op view taken in the hospital Assessment and Plan: Tania Romero Is here for a second post-op appointment, overall doing well -continued ice, rest, and use of non-narcotic analgesia as needed -wean off ambulatory aids -discussed home exercises and therapy -WBAT on operative extremity -reinforced posterior precautions through 8 weeks: anterior hip precautions -continue ankle pumps and dvt ppx through 4 weeks -discussed driving requirement: 4 weeks post-op, off narcotic pain medication, adequate brake time -PT script given for back pain -Will follow up in 8 weeks Sincere Hopkins MD documented in this encounter [facility] 07-15-2023 Instructions Luis Manuel Hernandez APRN.CNS - 07/15/2023 11:01 AM EDT Try Miralax once daily or docusate 1 or 2 tablets daily as needed for constipation Continue with iron as ordered for at least 14 days. Try to get protein at every meal. Check CBC in about 4 weeks documented in this encounter [facility] 07-15-2023 History of Present illness Narrative SUBJECTIVE: Hepatitis B Vaccine(1 of 3 - Risk 3-dose series) Never done Advance Directive Discussion due on 09/30/2022 Urine Albumin:Creatinine Ratio due on 02/19/2023 Covid-19 Vaccine( season) due on 05/31/2023 HPI Tania Romero is a 82 year old female. Presents today for routine follow up visit. 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 Sincere Hopkins MD for osteonecrosis. Postoperative x-ray showed implants are well fixed with no evidence of loosening. She was referred for outpatient physical therapy. Today reports that she is recovering from surgery well. She notes weightbearing as tolerated currently. Notes trying to discontinue Tylenol but some discomfort with sleeping especially as she has to maintain correct alignment following her hip surgery. She reports using prunes to help with constipation, fairly effective. She reports scheduling physical therapy outpatient but cannot get into the first visit until July 25. She is going to check with the surgeon to see if this is okay. Notes no recent MS flare symptoms. Neurologist: Previously followed at [facility], Dr Andrea Dobbins. DIABETES MELLITUS: Without report of excessive thirst or increased frequency of urination, chest pain or dyspnea , numbness, tingling or pain in extremities, new or unusual visual symptoms, low sugar/hypoglycemic reactions, weight loss/gain, lightheadedness/dizziness and bowel changes/loose stools. Patient's last HgA1C was Hemoglobin A1C (%) Date Value 06/21/2023 6.8 03/08/2023 6.5 06/27/2021 6.9 10/17/2020 6.2 Hemoglobin A1C (POCT) (%) Date Value 11/09/2022 6.3 Review of Systems Constitutional: Negative. Respiratory: Negative. Cardiovascular: Negative. Endocrine: Negative. Musculoskeletal: Positive for arthralgias and back pain. Objective BP 123/78 Pulse 91 Resp 16 Wt 52.6 kg (116 lb) BMI 22.65 kg/m Physical Exam Vitals and nursing note reviewed. Constitutional: Appearance: Normal appearance. HENT: Head: Normocephalic and atraumatic. Eyes: Conjunctiva/sclera: Conjunctivae normal. Neck: Thyroid: No thyromegaly. Vascular: Normal carotid pulses. No JVD. Cardiovascular: Rate and Rhythm: Normal rate and regular rhythm. Pulses: Normal pulses. Carotid pulses are 2+ on the right side and 2+ on the left side. Radial pulses are 2+ on the right side and 2+ on the left side. Heart sounds: Normal heart sounds. Pulmonary: Effort: Pulmonary effort is normal. Abdominal: General: Bowel sounds are normal. Palpations: Abdomen is soft. Musculoskeletal: Right hip: Tenderness present. Decreased range of motion. Decreased strength. Right lower leg: No edema. Left lower leg: No edema. Feet: Right foot: Protective Sensation: 10 sites tested. 10 sites sensed. Left foot: Protective Sensation: 10 sites tested. 10 sites sensed. Skin: General: Skin is warm and dry. Neurological: General: No focal deficit present. Mental Status: She is alert and oriented to person, place, and time. ALLERGIES Allergen Reactions Amoxicillin Rash Clindamycin Contraindication-Medical Surgical C diff Compazine [Prochlor* Intolerance Penicillins Rash, Intolerance Rash after 4 days of antibiotic . Prochlorperazine Dystonia MEDICATIONS: acetaminophen (TYLENOL) 500 mg tablet Take 2 tablets by mouth every 8 hours as needed for pain. alendronate (FOSAMAX) 70 mg tablet Take 1 tablet by mouth one time a week. Take with a full glass of water, on an empty stomach; do NOT lie down for 30minutes. aspirin, enteric coated (ASPIRIN, ENTERIC COATED) 81 mg EC tablet Take 1 tablet by mouth two times a day for 28 days. calcium carbonate (TUMS ORAL) Take by mouth as needed. Cholecalciferol, Vitamin D3, 125 mcg (5,000 unit) cap Hold for 1 month then take once weekly ciclopirox (LOPROX) 0.77 % cream Apply to affected area twice daily. use for 1 week after lesion resolves conjugated estrogens (PREMARIN) vaginal cream Use 0.5 g vaginally as needed. for 3 weeks then off for 1 week cyanocobalamin 1,000 mcg/mL USE ONE ML INTO THE MUSCLE ONCE MONTHLY docusate sodium (COLACE) 100 mg capsule Take 1 capsule by mouth two times a day. ferrous sulfate 325 mg (65 mg iron) tablet Take 1 tablet by mouth once daily for 14 days. Insulin Syringe-Needle U-100 (BD INSULIN SYRINGE) 1 mL 25 x 1 syrg Use for b12 injection monthly Lactase (LACTAID FAST ACT) 9,000 unit chew Uses as needed Lactobacillus acidophilus (PROBIOTIC ORAL) Take by mouth. meloxicam (MOBIC) 7.5 mg tablet Take 1 tablet by mouth once daily. metFORMIN ER (GLUCOPHAGE XR) 500 mg 24 hr tablet Take 1 tablet by mouth daily with breakfast. naloxone 4 mg/actuation nasal spray (NARCAN) Use 1 spray in one nostril as needed for overdose. May repeat every 2 to 3 min in alternating nostrils until medical assistance is available pantoprazole DR (PROTONIX) 40 mg tablet Take 1 tablet by mouth once daily for 14 days. senna (SENOKOT) 8.6 mg tab Take 1 tablet by mouth two times a day. 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 Vasquez (worse from 2011 to 2012) Low vitamin B12 level Multiple sclerosis (HCC) 05/31/2016 Osteopenia Type 2 diabetes mellitus, without long-term current use of insulin ([facility]) 01/24/2021 Social History Tobacco Use Smoking status: Former Types: Cigarettes Quit date: 1992 Years since quittin.8 Smokeless tobacco: Never Vaping Use Vaping Use: Never used Substance Use Topics Alcohol use: Yes Comment: GLASS OF WINE DAILY Drug use: Not Currently Component Latest Ref Rng & Units 06/21/2023 07/02/2023 07/08/2023 WBC 3.70 - 11.00 k/uL 8.83 10.71 RBC 3.90 - 5.20 m/uL 3.80 (L) 2.80 (L) Hemoglobin 11.5 - 15.5 g/dL 10.7 (L) 8.2 (L) Hematocrit 36.0 - 46.0 % 32.8 (L) 25.8 (L) MCV 80.0 - 100.0 fL 86.3 92.1 MCH 26.0 - 34.0 pg 28.2 29.3 MCHC 30.5 - 36.0 g/dL 32.6 31.8 RDW-CV 11.5 - 15.0 % 14.2 15.1 (H) Platelet Count 150 - 400 k/uL 380 312 MPV 9.0 - 12.7 fL 8.3 (L) 9.0 Neut% % 75.3 Abs Neut (ANC) 1.45 - 7.50 k/uL 6.64 Lymph% % 11.3 Abs Lymph 1.00 - 4.00 k/uL 1.00 [place]% % 9.3 Abs [place] <0.87 k/uL 0.82 Eosin% % 3.6 Abs Eosin <0.46 k/uL 0.32 Baso% % 0.2 Abs Baso <0.11 k/uL <0.03 Immature Gran % % 0.3 IMMATURE GRANS (ABS) <0.10 k/uL 0.03 NRBC /100 WBC 0.0 Absolute nRBC <0.01 k/uL <0.01 DTYPE Auto Protein, Total 6.3 - 8.0 g/dL 6.6 Albumin 3.9 - 4.9 g/dL 3.8 (L) Calcium 8.5 - 10.2 mg/dL 9.1 8.3 (L) Bilirubin, Total 0.2 - 1.3 mg/dL 0.2 Alkaline Phosphatase 34 - 123 U/L 178 (H) AST 13 - 35 U/L 23 ALT 7 - 38 U/L 23 Glucose 74 - 99 mg/dL 132 (H) 100 (H) BUN 7 - 21 mg/dL 32 (H) 16 Creatinine 0.58 - 0.96 mg/dL 0.92 0.71 Sodium 136 - 144 mmol/L 137 140 Potassium 3.7 - 5.1 mmol/L 5.0 4.0 Chloride 97 - 105 mmol/L 100 106 (H) CO2 22 - 30 mmol/L 28 27 Anion Gap 9 - 18 mmol/L 9 7 (L) eGFR >=60 mL/min/1.73m 63 86 Hemoglobin A1C 4.3 - 5.6 % 6.8 (H) Estimated Average Glucose mg/dL 148 Glucose, Point of Care 74 - 99 mg/dL 110 (A) ASSESSMENT/PLAN: 1. Encounter for immunization - ICD9: V03.89, ICD10: Z23 - [employer] COVID-19 VACCINE (2022- [place]) AGE 12+ YR - RSV VACCINE, BIVALENT (ABRYSVO) 2. Status post right hip replacement - ICD9: V43.64, ICD10: Z96.641 4. Osteonecrosis of right hip (HCC) - ICD9: 733.42, ICD10: M87.9 5. Blood loss anemia - ICD9: 280.0, ICD10: D50.0 - CBC + DIFF 6. Type 2 diabetes mellitus with other specified complication, without long-term current use of insulin (HCC) - ICD9: 250.80, ICD10: E11.69 controlled - Continue current treatment unchanged, Adhere to DM diet 7. Gastroesophageal reflux disease, unspecified whether esophagitis present - ICD9: 530.81, ICD10: K21.9 Stable, currently controlled, continue to monitor. Recovering well from hip surgery. Blood loss anemia noted. Endorse continue with iron as ordered, may take longer if needed. Recheck CBC in about 1 month. Endorse addition of MiraLAX or Colace for constipation as needed. Luis Manuel Hernandez APRN.CNS Medical Decision Making: Problems: Moderate: 2+ stable chronic illnesses Data: Unique test(s) ordered: 1 Risk: Moderate: Drug management Medical Decision Making Level: 4 - Moderate documented in this encounter [facility] 07-12-2023 History of Present illness Narrative Radiology Service Progress Note PATIENT NAME: Tania Romero DATE OF SERVICE: July 12, 2023 TIME: 11:14 AM PATIENT IDENTITY VERIFICATION COMPLETED USING TWO (2) IDENTIFIERS: Name and Date of confirmed by patient verbally. FALL SCREENING: Has the patient had 2 falls in the last year or 1 fall with injury or currently using an Ambulatory Assistive Device (Walker, Cane, Wheelchair, Crutches, etc.)? No PATIENT GENDER DATA: Female. status: : No status: NO. PATIENT RELEVANT IMPLANT DATA REVIEWED: Not Applicable RADIOLOGY DEPARTMENT: General X-ray: Exam(s) Completed: Pelvis X-Ray: Pelvis with Hip Right and Wt. Bearing PERIPHERAL IV DATA: Not applicable SIGNED BY: Jonah Jennings July 12, 2023 11:14 AM documented in this encounter [facility] 06-30-2023 History of Past i llness Narrative Problem Noted Date Diagnosed Date Resolved Date Aftercare 06/30/2023 07/08/2023 Osteonecrosis of right hip 06/27/2023 0 06/28/2023 Primary osteoarthritis of left hip 02/03/2021 Overview: Left--Dr. Vasquez (worse from 2011 to 2012) 12/16/2018--Left--near bone on bone apposition; Right--minimal degenerative change with eburnation of the acetabular rim documented as of this encounter (statuses as of 07/15/2023) [facility] History of Past illness Narrative* Problem Noted Date Diagnosed Date Resolved Date Aftercare 06/30/2023 07/08/2023 Osteonecrosis of right hip 06/27/2023 0 06/28/2023 Primary osteoarthritis of left hip 02/03/2021 Overview: Left--Dr. Vasquez (worse from 2011 to 2012) 12/16/2018--Left--near bone on bone apposition; Right--minimal degenerative change with eburnation of the acetabular rim documented as of this encounter (statuses as of 08/08/2023) [facility] History of Past illness Narrative* Problem Noted Date Diagnosed Date Resolved Date Aftercare 06/30/2023 07/08/2023 Osteonecrosis of right hip 06/27/2023 0 06/28/2023 Primary osteoarthritis of left hip 02/03/2021 Overview: Left--Dr. Vasquez (worse from 2011 to 2012) 12/16/2018--Left--near bone on bone apposition; Right--minimal degenerative change with eburnation of the acetabular rim documented as of this encounter (statuses as of 08/13/2023) [facility] History of Past illness Narrative* Problem Noted Date Diagnosed Date Resolved Date Aftercare 06/30/2023 07/08/2023 Osteonecrosis of right hip 06/27/2023 0 06/28/2023 Primary osteoarthritis of left hip 02/03/2021 Overview: Left--Dr. Vasquez (worse from 2011 to 2012) 12/16/2018--Left--near bone on bone apposition; Right--minimal degenerative change with eburnation of the acetabular rim documented as of this encounter (statuses as of 2023) [facility] History of Past illness Narrative* Problem Noted Date Diagnosed Date Resolved Date Aftercare 06/30/2023 07/08/2023 Osteonecrosis of right hip 06/27/2023 0 06/28/2023 Primary osteoarthritis of left hip 02/03/2021 Overview: Left--Dr. Vasquez (worse from 2011 to 2012) 12/16/2018--Left--near bone on bone apposition; Right--minimal degenerative change with eburnation of the acetabular rim documented as of this encounter (statuses as of 08/20/2023) [facility] History of Past illness Narrative* Problem Noted Date Diagnosed Date Resolved Date Aftercare 06/30/2023 07/08/2023 Osteonecrosis of right hip 06/27/2023 0 06/28/2023 Primary osteoarthritis of left hip 02/03/2021 Overview: Left--Dr. Vasquez (worse from 2011 to 2012) 12/16/2018--Left--near bone on bone apposition; Right--minimal degenerative change with eburnation of the acetabular rim documented as of this encounter (statuses as of 09/10/2023) [facility] History of Past illness Narrative* Problem Noted Date Diagnosed Date Resolved Date Aftercare 06/30/2023 07/08/2023 Osteonecrosis of right hip 06/27/2023 0 06/28/2023 Primary osteoarthritis of left hip 02/03/2021 Overview: Left--Dr. Vasquez (worse from 2011 to 2012) 12/16/2018--Left--near bone on bone apposition; Right--minimal degenerative change with eburnation of the acetabular rim documented as of this encounter (statuses as of 09/20/2023) [facility] History of Past illness Narrative* Problem Noted Date Diagnosed Date Resolved Date Aftercare 06/30/2023 07/08/2023 Osteonecrosis of right hip 06/27/2023 0 06/28/2023 Primary osteoarthritis of left hip 02/03/2021 Overview: Left--Dr. Vasquez (worse from 2011 to 2012) 12/16/2018--Left--near bone on bone apposition; Right--minimal degenerative change with eburnation of the acetabular rim documented as of this encounter (statuses as of 11/18/2023) [facility] History of Past illness Narrative* Problem Noted Date Diagnosed Date Resolved Date Aftercare 06/30/2023 07/08/2023 Osteonecrosis of right hip 06/29/2023 0 11/19/2023 Osteonecrosis of right hip 06/27/2023 0 06/28/2023 Primary osteoarthritis of left hip 02/03/2021 Overview: Left--Dr. Vasquez (worse from 2011 to 2012) 12/16/2018--Left--near bone on bone apposition; Right--minimal degenerative change with eburnation of the acetabular rim documented as of this encounter (statuses as of 11/19/2023) [facility] History of Past illness Narrative* Problem Noted Date Diagnosed Date Resolved Date Aftercare 06/30/2023 07/08/2023 Osteonecrosis of right hip 06/29/2023 0 11/19/2023 Osteonecrosis of right hip 06/27/2023 0 06/28/2023 Primary osteoarthritis of left hip 02/03/2021 Overview: Left--Dr. Vasquez (worse from 2011 to 2012) 12/16/2018--Left--near bone on bone apposition; Right--minimal degenerative change with eburnation of the acetabular rim documented as of this encounter (statuses as of 12/20/2023) [facility] Miscellaneous Notes* Telephone Encounter - Geoffrey Bejarano PSS - 06/29/2023 1:59 PM EDT Welcome Home Call: a. Date and Time: 1:59 PM 06/29/2023 b. Contact name/relationship: Spoke to patient c. Have you been active with any Home Care company in the last 60 days (such as help with bathing, filling medications, checking your blood pressure, or assistance with an exercise program)? No. d. [facility] will be providing your care, are you agreeable to starting these services? Yes (yes or no) e. Do you have any upcoming appointments in the next few days, or restrictions to your schedule? No f. Caregiver: Patient is able to manage care independently g. Confirmed Visited Location and preferred #: Address: Yes Phone: Yes Please keep our your medications both over the counter and prescribed out for the home care to review, your hospital discharge instructions and write down any questions you might have. While we focus on providing safe care, in support of this mission, we ask you to: Be respectful of our caregivers. Do not raise your voice or use profanity. You and your family/caregivers must be considerate of our organization's staff and property. Promote a safe and respectful environment. We will not tolerate any form of threatening or aggressive behaviors towards our caregiver team. This includes verbal, physical or sexual behaviors: - Examples include acts or threats of physical violence, harassment, intimidation, abusive or foul language, or other aggressive, disruptive or discriminatory behavior. Any firearms or weapons in the home must be stored and locked in a separate room from where care istaking place. Firearms or other weapons should not be easily accessible or in plain view; when available, firearms should be stored and locked in a firearm safe. - Weapons of any kind include: firearms, knives, tasers and all other things that can inflict bodily or physical harm. Pets/animals must be moved to a separate closed room or placed in a crate/cage while caregivers arein the home. (Service animals excluded). Substance Use (illegal drugs, alcohol, cigarettes) including Medical marijuana in a vaporized or inhaled form is not permitted for use by a patient or caregiver/family member while our caregivers arein the home. Taking photos or videos of our caregivers without permission is not permitted. Our clinicians will call you the night before or the morning of the appointment. Their # may come up restricted but they'll leave a VM for you. In case you have any questions or concerns in the meantime, our # is [phone], option 5 Thank you for your time and have a great day. Geoffrey Bejarano PSS documented in this encounter[facility] History of Past illness Narrative* Problem Noted Date Diagnosed Date Resolved Date Osteonecrosis of right hip 06/27/2023 0 06/28/2023 Primary osteoarthritis of left hip 02/03/2021 Overview: Left--Dr. Vasquez (worse from 2011 to 2012) 12/16/2018--Left--near bone on bone apposition; Right--minimal degenerative change with eburnation of the acetabular rim documented as of this encounter (statuses as of 06/29/2023) [facility] Instructions* Patient Instructions* Yarelis Rodarte APRN.CNP - 06/20/2023 12:33 PM EDT Strep is negative covid test ordered You will be notified in 12-24 hours, results available on MyChart Salt water gargles, chloraseptic spray or lozenges as needed for sore throat. Warm beverages, honey. Tylenol (generic acetaminophen) 500 mg-2 tabs every 8 hrs. as needed for fever and aches Pepcid 20 mg twice a day on an empty stomach, wait 30 minutes before eating. * Seek medical care immediately, call 911, go to ER if you have chest pain, difficulty breathing, shortness of breath, inability to swallow. documented in this encounterAs[facility]09-[facility] History of Present illness Narrative* Yarelis Rodarte APRN.CNP - 06/20/2023 12:19 PM EDT Subjective The history is provided by the patient. No steam hammer operator was used. JOEY Tania Romero is a 82 year old female who presents today for CC of sore throat for 2 days. She denies any nasal drainage, cough, fever, chills, body aches, nausea, vomiting or diarrhea. She hasused no medications or treatment. She is taking a lot NSAIDs right now to deal with hip pain prior to surgery next week. BP 148/70 Pulse 84 Temp 36.3 C (97.4 F) Resp 18 Wt 52.2 kg (115 lb) SpO2 97% BMI 23.23 kg/m Social History Tobacco Use Smoking status: Former Smokeless tobacco: Never Vaping Use Vaping Use: Never used Substance Use Topics Alcohol use: Yes Comment: GLASS OF WINE DAILY Drug use: Not Currently PAST MEDICAL HISTORY Diagnosis Date Arthritis DJD (degenerative joint disease) of hip Left--Dr. Vasquez (worse from 2011 to 2012) Low vitamin B12 level Multiple sclerosis ([facility]) 05/31/2016 Osteopenia Type 2 diabetes mellitus, without long-term current use of insulin ([facility]) 01/24/2021 I have confirmed and edited as necessary, the PSYCHIATRIC Review of Systems Constitutional: Negative for chills and fever. HENT: Positive for sore throat. Negative for congestion, ear pain and sinus pain. Respiratory: Negative for cough, sputum production, shortness of breath and wheezing. Cardiovascular: Negative for chest pain. Gastrointestinal: Negative for abdominal pain, diarrhea, nausea and vomiting. Musculoskeletal: Negative for myalgias. Neurological: Negative for headaches. Objective Physical Exam Vitals and nursing note reviewed. HENT: Head: Normocephalic and atraumatic. Right Ear: Tympanic membrane, ear canal and external ear normal. Left Ear: Tympanic membrane, ear canal and external ear normal. Nose: No mucosal edema, congestion or rhinorrhea. Right Sinus: No maxillary sinus tenderness or frontal sinus tenderness. Left Sinus: No maxillary sinus tenderness or frontal sinus tenderness. Mouth/Throat: Pharynx: Uvula midline. No oropharyngeal exudate or posterior oropharyngeal erythema. Cardiovascular: Rate and Rhythm: Normal rate and regular rhythm. Heart sounds: Normal heart sounds. Pulmonary: Effort: Pulmonary effort is normal. Breath sounds: Normal breath sounds. Lymphadenopathy: Head: Right side of head: No submental, submandibular or tonsillar adenopathy. Left side of head: No submental, submandibular or tonsillar adenopathy. Cervical: No cervical adenopathy. Skin: General: Skin is warm and dry. Neurological: Mental Status: She is alert. Psychiatric: Mood and Affect: Affect normal. ASSESSMENT/PLAN: 1. Sore throat - ICD9: 462, ICD10: J02.9 - suspect acid reflux, viral - Group A strep molecular testing negative - The patient may also use warm salt water gargles, throat lozenges and/or OTC throat spray as needed. - The patient should follow up in one week if symptoms persist or worsen - Call back if drooling, increased temperature, symptoms of dehydration and/or still sick in one week Testing ordered for covid due to upcoming surgery Comfort measures discussed - see patient instructions. Notified in 12-24 hours with results, available on [facility] Will start prevacid back up until after surgery is done - STREP A MOLECULAR (POC) - COVID NAAT, UPPER RESPIRATORY, ROUTINE Diagnosis and treatment plan were discussed and questions were answered to the patient's satisfaction. Pt acknowledged understanding of concepts and follow up plan. Specific signs and symptoms that would indicate the need for higher level of care were discussed indetail warranting prompt ER evaluation. Yarelis Rodarte APRN.SEEMA documented in this encounterAs[facility]09-[facility] Miscellaneous Notes* Telephone Encounter - Joe Jiang PA-C - 06/11/2023 8:45 AM EDT Refill has been sent to pharmacy on file. Joe Jiang PA-C documented in this encounterAs[facility]09-[facility] Miscellaneous Notes* Telephone Encounter - Reji Christensen PSS - 06/06/2023 3:29 PM EDT TOTAL JOINT COMPLETE CARE PROGRAM PRE-OPERATIVE TEACHING Service Date: 06/06/2023 Service Time: 3:29 PM Date of : 1940 Gender: female Date of Surgery: 06/27/23 Procedure: Right Total Hip Replacement (Anterior) Complete Care Program was discussed with the patient: Care Technician Identification: Patient identified a patient care manager to help when discharged to home: Home Environment: Home Layout: Ranch, Entry Steps: 2 in front smaller with platform in between, Bedroom Location: 1stfloor, Bathroom Location: 1st floor, and walk in shower. Pt owns tub bench with shower, cane, crutches, walker, bedside commode. Discussed with patient importance of attending joint education class and provided date and times ofclass: YES had MERLE in past Patient received Joint Education Binder: Yes Patient plans discharge home with [facility]. SIGNATURE: LEANA Davidson PATIENT NAME: Tania Romero DATE: June 06, 2023 TIME: 3:29 PM documented in this encounterAsht[facility]ula [facility]09-[facility] Miscellaneous Notes* Telephone Encounter - Joe Jiang PA-C - 06/05/2023 1:59 PM EDT This patient will need to be contacted for meet and greet appointment with Dr.Nicholas Collin Hopkins MD on 06/21 or 06/24. Please keep on list of patients to contact. Thank you, Joe Jiang PA-C documented in this encounterAshtabula [facility]09-[facility] History of Present illness Narrative* Joe Jiang PA-C - 06/05/2023 1:11 PM EDT Established Patient Ortho Hip Consult Note ASSESSMENT & PLAN: Impression: Right Hip Osteonecrosis Secondary to Intra-articular cortisone injection Tania Romero has radiograph and physical exam evidence of degenerative joint disease and wishes to pursue surgery. This patient appears to have sufficient symptoms to warrant surgical interventionand is an appropriate candidate for right Primary Total Hip Arthroplasty as evidenced by six monthsof unsuccessful non-operative treatment as outlined in the HPI below and progressive symptoms. Progressive symptoms include: Pain impacting sleep or causing fatigue Pain worsened by weight bearing Pain effecting living situation Pain limiting ability to stay fit and healthy Unable to ambulate 2 blocks without significant pain and dysfunction. We had a lengthy discussion regarding the risk and benefit of surgery, the alternatives, limitations and personnel involved. These included but were not limited to infection, persistent pain, instability, nerve injury, blood clots, and medical complications. We also discussed the pre-operative course, surgery itself and rehabilitation. Trice-operative blood management and transfusion issues were discussed, and options clearly outlined. The patient has consented to the use of the banked allogenic blood if medically necessary. The patient has elected to schedule surgery at this time or intends to call the office with a surgical date. Shared decision making occurred while obtaining informed consent. The patient will be scheduled for a pre-operative education class at which time they will have their nasal swab completed and will be given CHG cloths along with the verbal and written instructions for their use. Patient has been instructed and has been scheduled or will call to schedule attendence in one of the total joint perioperative classes offered prior to proceeding with MERLE.. The patient has been ordered: HbA1C CBC, CMP, Type & Screen CONSULTS: IMPACT/PACE Consult for preoperative clearance. ACTIVE PROBLEM LIST Family History of Malignant Neoplasm of Gastrointestinal Tract Elevated Fasting Glucose Low Vitamin B12 Level Multiple Sclerosis (Hcc) Abnormality of Gait Osteopenia Chronic Midline Low Back Pain Without Sciatica Primary Osteoarthritis of Both Hips Type 2 Diabetes Mellitus, Without Long-Term Current Use of Insulin (Hcc) Gerd (Gastroesophageal Reflux Disease) Abnormal Ekg Vitamin D Deficiency Elevated Ldl Cholesterol Level Colon Cancer Screening Trochanteric Bursitis of Right Hip SUBJECTIVE CHIEF COMPLAINT: Right Hip Pain HPI: Tania Romero is a 82 year old patient here for evaluation and management of Right hip pain. Patient has had progressive problems with the hip(s) constantly over the past 5 month(s) interfering with activities which include doing gang investigator, participating in family activities, rising from asitting position, standing for prolonged periods of time, getting in and out of a car, climbing stairs, and safety-increased risk for fall. The problem began limiting activities 1-6 months ago. Currently the pain in the joint is rated at 9 out of 10 with minimal activity. The pain is constantand is located in the right hip and groin. The pain is described as aching and severe. Relieving factors include rest, prescription medication, and over the counter medication. There is no specific incident that brought about this pain. Patient has no additional complaints. Total Joint Arthroplasty: Risk Calculator Tania Romero has a 63.84% chance of NOT returning home at discharge for a Primary total Hip replacement. Tania's estimated Length of Stay is 3 days (Inpatient candidate). Tania's 30 day chanceof readmission is 3.61%. Readmission Probability 3.61 % (within 30 days following surgery) Estimated LOS 3 days Discharge Disposition Probability D/C to Home 36.16 % D/C to SNF 63.84 % These calculations are based on the following factors: - 82 years of age - sex is not male - BMI of 22.82 kg/m2 - [facility] score of 240 - 1 hospitalizations in the last 12 months - no history of heart disease - history of diabetes - no history of COPD - no history of anemia - preoperative ambulation: impaired home distances - 2 step(s) to enter home - bed location is on the first floor - bath location is on the first floor - caregiver is consistent - home is not more than 150 miles away - PROMIS-10 Mental Health T score 20-40 - Marital status: PREVIOUS TREATMENTS: Medical: RX NSAIDS for 3 Months or Greater (meloxicam (Mobic)), Steroid Injections Right Hip, Tylenol, Tramadol Physical Therapy: Use of Ambulatory Aid, Shoe Wear, Braces, Orthotics, Activities Modified, and PT Start Date 02/08/2023 with most recent visit 04/22/2023. Risk Factors for Total Joint Arthroplasty (TJA) Obesity Unknown Risk High: BMI > 40 Moderate: BMI 30-40 Normal: BMI < 30 Diabetes Moderate Risk High: A1C > 8 Moderate: A1C 7-8 Normal: A1C < 7 Smoking normal High: Current smoker Normal: Non smoker Anemia normal High: Hgb < 11.5 (women) N/A: Hgb >= 11.5 (women) Nutritional Status normal High: Alb<3.4, or prealb<15, or serum transferrin<200, or total lymphocyte count<1500 Normal: normal labs COPD normal High: dx of COPD Normal: no dx of COPD MRSA normal High: dx of MRSA or positive lab test Normal: no MRSA CKD normal High: eGFR<60 Moderate: eGFR 60-89 Normal: eGFR>90 Hx of DVT / PE normal High: dx of DVT / PE Normal: no dx of DVT / PE Narcotics Use Moderate Risk High:NarxCare >=300 Moderate: 100-299 Normal: 0-99 HARPREET normal High: dx of HARPREET N/A: no dx of HARPREET Coagulation normal High:PT Sec>13, or PT INR>1.3, or APTT>32.4, or Plt ct<150k Moderate: on anticoag but none of the above Normal: none Obesity: height and/or weight are out of date (There is no height and/or weight reading in the [id number] days, so the below BMI readings may be inaccurate) BMI Readings from Last 3 Encounters: 03/15/23 : 22.82 kg/m 02/04/23 : 23.83 kg/m 11/09/22 : 23.63 kg/m Diabetes: Well controlled - Tania has been diagnosed with Type 2 Diabetes. Her last Hemoglobin A1C was 6.5 (03/08/2023). Pt is followed by Bg Chavarria for Type 2 Diabetes - last seen on 03/15/2023. NarxCare score NARX Narcotics: 240 (06/05/2023 1:00 PM) Other Risk Factors None PHYSICAL EXAM There were no vitals taken for this visit. All other systems deferred. GENERAL: Appears healthy, well-nourished, no deformities. HABITUS: Normal GAIT: Wheelchair bound HIP EXAM: Right: ROM: Extension: full extension Flexion: 95 degrees AROM, 110 PROM Internal Rotation: 15 degrees External Rotation: 25 degrees Abduction: 25 degrees Adduction: 25 degrees Strength: Abduction 3/5 and Flexion 3/5 Palpation: No tenderness Log roll: non-painful. Straight leg raise: Negative Neurovascular Status: Sensation Intact, Moves foot and ankle up & down, and 2+ dorsalis pedis DATA: Diagnostic tests reviewed for today's visit: Right hip X-Ray: Severe Osteonecrosis of the Right Hip with flattening of femoral head SIGNATURE: Joe Jiang PA-C PATIENT NAME: Tania Romero DATE: June 05, 2023 TIME: 1:13 PM documented in this encounterAs[facility]08-30-[facility]23 Miscellaneous Notes* Telephone Encounter - Olimpia Maradiaga RN - 05/29/2023 1:58 PM EDT See Nav[employer] message from 05/29/23. documented in this [facility]08-30-2023 History of Present illness Narrative* Joe Jiang PA-C - 05/29/2023 1:24 PM EDT Tramadol sent over for pre-op pain control. Terrible right hip osteonecrosis. Future MERLE patient. Joe Jiang PA-C documented in this [facility]08-22-2023 Miscellaneous Notes* Telephone Encounter - Olimpia Maradiaga RN - 05/21/2023 3:05 PM EDT Addressed in HipWay message from today, 05/21/23. * Telephone Encounter - Olimpia Maradiaga RN - 05/21/2023 8:09 AM EDT Patient calling RN andrewsDavis LEE was , 05/16 where she was told she would get a call Saturday about setting up surgery. She is asking for an update about scheduling surgery. Ph. [phone] documented in this [facility]08-22-2023 Miscellaneous Notes* Telephone Encounter - Fredy Carrasco APRN.CNP - 05/21/2023 12:42 PM EDT I called and spoke with Tania. She was offered August 05 which is the next soonest available. All questions answered. Fredy Carrasco APRN.CNP May 21, 2023 12:54 PM documented in this [facility]08-17-2023 History of Present illness Narrative* Fredy Carrasco APRN.CNP - 05/16/2023 11:26 AM EDT Orthopaedic Office Note: May 16, 2023 11:47 AM Tania Romero 82 year old History: Tania is a very pleasant 82 year old female who presents today for right hip pain. She has previously seen Dr. Jacobsen for same issue. However, she reports new onset right groin pain. She was previously treated for lateral hip pain consistent with greater trochanteric bursitis. She did undergo a right hip cortisone injection thorough radiology. She states she had good relief with this for a weekor two and then sudden onset of significant right groin pain with weight bearing causing her to go from using no ambulatory aid to now being in a walker and wheelchair. She is here today for evaluation. Subjective: Right groin pain. Severe. No using walker and wheelchair Updated ROS: No changes Updated Exam: Right Lower Extremity: HIP EXAM: Right: ROM: Extension: full extension Flexion: 110 degrees Internal Rotation: 15 degrees External Rotation: 25 degrees Abduction: 25 degrees Adduction: 25 degrees Strength: Abduction 4/5 and Pain with resisted hip flexion Palpation: No tenderness Log roll: non-painful. Straight leg raise: Negative Neurovascular Status: Sensation Intact, Moves foot and ankle up & down, and 2+ dorsalis pedis Updated Imaging: Images dated 05/03/23 show interval severe flattening of femoral head compared to 02/07/23 consistent with osteonecrosis Assessment and Plan: Osteonecrosis of right hip Tania, her and I had a long discussion regarding her right hip pain. She has had intervaldevelopment of osteonecrosis s/p cortisone injection of the right hip. She has become debilitated by pain over the past 2 months. We discussed treatment options in the form of right total hip arthroplasty today. Risks versus benefits clearly outlined/discussed and she wishes to proceed. This will be done robotically with Dr. Jacobsen. In terms of the rapid progression, I also want to rule out infectious causes. I have ordered ESR and CRP. If elevated she will require aspiration. If infection is present we will plan for articulating antibiotic spacer instead. All questions answered. Fredy Carrasco APRN.CNP Orthopaedic Surgery documented in this encounterAshtabula [facility]08-17-2023 Miscellaneous Notes* Telephone Encounter - Diya Julio RPh - 05/16/2023 10:56 AM EDT Pharmacist Refill Authorization Review Name: Tania Romero Date: 05/16/2023 Time: 10:56 AM Refill authorization request(s) received and reviewed under effective consult agreement. Upon review, did confirm that an active patient-provider relationship exists and that the prescriber is a participating physician under the consult agreement. Last office visit in this department: 02/04/2023 Luis Manuel Hernandez APRN.CNP Last distance health visit in this department: Visit date not found Next appointment in this department: 07/15/2023 Luis Manuel Hernandez APRN.CNP The medication(s) fall under the following categories: Category 3: Medication(s) does not qualify for pharmacist renewal due to unclear duration of therapy. Renewal request sent to provider for review. Requested Prescriptions Pending Prescriptions Disp Refills cyanocobalamin 1,000 mcg/mL 3 mL 3 Sig: USE ONE ML INTO THE MUSCLE ONCE MONTHLY Number of refills approved in this encounter: 0 Number of refills forwarded to provider for review: 1 Number of refills denied in this encounter: 0 Diya Julio RPh documented in this encounterAshtabula [facility]08-08-2023 Miscellaneous Notes* Telephone Encounter - Olimpia Maradiaga RN - 05/07/2023 4:23 PM EDT Pt called back and requested that the prescription be faxed to the [facility] in [place]. Faxed and received confirmation it was sent. * Telephone Encounter - Olimpia Maradiaga RN - 05/07/2023 2:57 PM EDT Pt requested that handedwin zazueta be emailed to her so she can get it as soon as possible, stated they are not able to come into the office d/t the drive. I emailed the prescription to the patent's e-mail * Telephone Encounter - Olimpia Maradiaga RN - 05/07/2023 2:08 PM EDT Per Oscar: I wrote for the prescription. I can give it to them on the if they want? Or if they want it sooner will you please find out where they would like it faxed? Thanks! Oscar Spoke with patient. Stated she would brick picker the order for a gel cushion at her appointment. She is also requesting a handicap placard. * Telephone Encounter - Olimpia Maradiaga RN - 05/02/2023 2:01 PM EDT Pt calling RN andrews. Ph. [phone] States she is still having a lot of pain was wasn't able to sleep much last night, asking for pain medication. Sitting in a chair and is afraid of getting pressure sores, states she is barely able to perform ADLs, and her foot sometimes goes numb. Spoke with patient and advised to continue to do what Derek advised her to do yesterday. Instructed to do pressure reliefs in chair, friend got her a gel cushion, also states a friend gaveher a tub bench for her shower. Told pt unfortunately there are no earlier appointments and that we cannot prescribe pain medication unless she had recent surgery, advised to reach out to PCP for pain medication. Also advised to ice, try Voltaren gel, try melatonin or Benadryl or ZZZQuil. Ice doesn't help, heat helps and controls the spasms, taking flexeril to help with spasms. Pt is currently on the wait list for Oscar. Asking if she can have a prescription for the gel cushion. Pt verbalized understanding of all education provided. documented in this encounterAshtabula [facility]08-07-2023 Miscellaneous Notes* Telephone Encounter - Barbara De Guzman LPN - 05/06/2023 4:39 PM EDT TC to Tania, given below results/recommendation, she did review on MyChart. She is scheduled for Ortho Consult with Nic Carrasco, 05/16/2023. Has been up on Waiting List for possible sooner appt. Patient is taking Extra Strength Tylenol 1,000mg, three (3) times daily or 6 hours apart, Mobic twice daily, Tramadol at bedtime, wearing compression stockings, using walker to get around house. Rates pain at either 2, 5 or 9 through day. Patient is hoping/waiting for a sooner appt with ortho if possible. Barbara De Guzman LPN * Telephone Encounter - Linda Silva APRN.CNP - 05/06/2023 8:04 AM EDT Please call patient and get an update on her pain. Let her know the hip xray showed: No acute findings. It did note interval development of moderate to severe flattening of the right femoral head; suspect sequela of osteonecrosis. 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 I will forward this to orthopaedics. documented in this encounterAshtabula [facility]08-07-2023 Miscellaneous Notes* Telephone Encounter - Olimpia Maradiaga RN - 05/06/2023 1:43 PM EDT Pt calling. States that she saw her PCP and got a prescription for pain medications and x-rays. Wants to make sure we can see that she got x-rays and that she isn't scheduled for more x-rays or additional x-rays. Called pt, no answer, left VM explaining that we can see the images and that she does not need any additional x-rays prior to her appointment with Oscar on 05/16. documented in this encounterAshtabula [facility]08-04-2023 History of Present illness Narrative* Linda Silva APRN.MORTGAGE LOAN ASSISTANT - 05/03/2023 9:52 AM EDT SUBJECTIVE Tania Romero is a 82 year old female here today for a check up on her medical problems. Chief Complaint Patient presents with: Acute Visit: right hip pain HPI Tania Romreo is a 82 year old female established patient of Dr. Chavarria. She presents today forpersistent right hip pain. Upcoming ortho appointment on 05/16, seeing PT for this. She has tried muscle relaxers and meloxicam. Prior injection by ortho in February with IR, wore off in March. She did stumble in the garden recently. Trouble sleeping at night. Pain progressively more bothersome. Would like an xray. Her medications were reviewed today and her list is now up to date. Medications Current Outpatient Medications Medication Sig acetaminophen (TYLENOL) 500 mg tablet Take 1,000 mg by mouth twice daily. Cholecalciferol, Vitamin D3, 125 mcg (5,000 unit) cap Hold for 1 month then take once weekly metFORMIN ER (GLUCOPHAGE XR) 500 mg 24 hr tablet Take 1 tablet by mouth daily with breakfast. ciclopirox (LOPROX) 0.77 % cream Apply to affected area twice daily. use for 1 week after lesion resolves alendronate (FOSAMAX) 70 mg tablet Take 1 tablet by mouth one time a week. Take with a full glass of water, on an empty stomach; do NOT lie down for 30minutes. meloxicam (MOBIC) 7.5 mg tablet Take 1 tablet by mouth twice daily. Insulin Syringe-Needle U-100 (BD INSULIN SYRINGE) 1 mL 25 x 1 syrg Use for b12 injection monthly cyanocobalamin 1,000 mcg/mL USE ONE ML INTO THE MUSCLE ONCE MONTHLY Lactobacillus acidophilus (PROBIOTIC ORAL) Take by mouth. calcium carbonate (TUMS ORAL) Take by mouth as needed. Lactase (LACTAID FAST ACT) 9,000 unit chew Uses as needed traMADol (ULTRAM) 50 mg tablet Take 0.5 tablets by mouth twice daily as needed for pain for up to 7days. azithromycin (ZITHROMAX) 250 mg tablet Take two tablets one hour before dental procedures. conjugated estrogens (PREMARIN) vaginal cream Use 0.5 g vaginally as needed. for 3 weeks then off for 1 week No current facility-administered medications for this visit. ALLERGIES Allergen Reactions Amoxicillin Rash Clindamycin Contraindication-Medical Surgical C diff Compazine [Prochlor* Intolerance Penicillins Rash, Intolerance Rash after 4 days of antibiotic . ACTIVE PROBLEM LIST Trochanteric Bursitis of Right Hip - 02/08/2023 Vitamin D Deficiency - 03/04/2022 Elevated Ldl Cholesterol Level - 03/04/2022 Colon Cancer Screening - 03/04/2022 Type 2 Diabetes Mellitus, Without Long-Term Current Use of Insulin ([facility]) - 01/24/2021 Gerd (Gastroesophageal Reflux Disease) - 01/24/2021 Abnormal Ekg - 01/24/2021 Primary Osteoarthritis of Both Hips - 06/07/2020 Chronic Midline Low Back Pain Without Sciatica - 04/29/2019 Comment: Doing better with exercises; had PT Osteopenia Abnormality of Gait - 06/21/2016 Multiple Sclerosis ([facility]) - 05/31/2016 Elevated Fasting Glucose - 05/04/2013 Comment: was told had had prediabetes in the past Low Vitamin B12 Level Family History of Malignant Neoplasm of Gastrointestinal Tract - 05/06/2012 Comment: father Social History Tobacco Use Smoking status: Former Smokeless tobacco: Never Vaping Use Vaping Use: Never used Substance Use Topics Alcohol use: Yes Comment: GLASS OF WINE DAILY Drug use: Not Currently Review of Systems Musculoskeletal: Positive for arthralgias, gait problem and myalgias. Negative for joint swelling. OBJECTIVE BP 122/68 Pulse 77 Resp 16 SpO2 98% Physical Exam Vitals and nursing note reviewed. Constitutional: General: She is awake. She is not in acute distress. Appearance: Normal appearance. She is well-developed and well-groomed. She is not ill-appearing, toxic-appearing or diaphoretic. HENT: Head: Normocephalic. Right Ear: External ear normal. Left Ear: External ear normal. Nose: Nose normal. Eyes: General: Vision grossly intact. Conjunctiva/sclera: Conjunctivae normal. Pupils: Pupils are equal, round, and reactive to light. Neck: Vascular: No JVD. Trachea: Trachea normal. Cardiovascular: Pulses: Normal pulses. Pulmonary: Effort: Pulmonary effort is normal. No accessory muscle usage, prolonged expiration or respiratory distress. Musculoskeletal: Cervical back: Neck supple. Right lower leg: No edema. Left lower leg: No edema. Skin: General: Skin is warm and dry. Capillary Refill: Capillary refill takes less than 2 seconds. Neurological: General: No focal deficit present. Mental Status: She is alert and oriented to person, place, and time. Mental status is at baseline. Psychiatric: Attention and Perception: Attention and perception normal. Mood and Affect: Mood and affect normal. Speech: Speech normal. Behavior: Behavior normal. Behavior is cooperative. Thought Content: Thought content normal. Cognition and Memory: Cognition and memory normal. Judgment: Judgment normal. ASSESSMENT/PLAN: 1. Trochanteric bursitis of right hip - ICD9: 726.5, ICD10: M70.61 (primary diagnosis) Persistent pain, in PT, following with ortho but appointment is not until the . Can trial tramadol for the pain. Will check an xray due to concern of recent fall, no specific injury from the fallper patient. Discussed with patient that although Ultram/tramadol is not a narcotic it does carry the risk of addiction if taken over a long period of time. OARRS report reviewed and prescription is reasonable. Discussed that in addition this medicine can lower the seizure threshold and if patient had any history of seizures or seizure like activity which was not shared with provider today, they should not take this medicine. While taking ultram/tramadol patient was instructed to not drive or operate or be in vicinity of heavy machinery. - XR HIP GENERAL 3V PELV/AP/LAT RIGHT - TRAMADOL 50 MG TABLET 2. Pain of right hip - ICD9: 719.45, ICD10: M25.551 See #1 - XR HIP GENERAL 3V PELV/AP/LAT RIGHT - TRAMADOL 50 MG TABLET 3. Fall, initial encounter - ICD9: E888.9, ICD10: W19.XXXA See #1 - XR HIP GENERAL 3V PELV/AP/LAT RIGHT - TRAMADOL 50 MG TABLET PDMP website checked and validated. All prescriptions have been APPROPRIATELY filled. No suspiciousactivity was identified. 05/03/2023 by Linda Silva APRN.MORTGAGE LOAN ASSISTANT Portions of this note have been entered by ancillary staff. I have reviewed and when necessary edited, so that they are an adequate record of my encounter with this patient Please note that parts of this document were created using voice recognition software and therefore may contain grammatical errors. Patient verbalizes understanding of instructions from today's visit and in agreement with treatmentplan. Questions answered. Agrees to call the office if questions, concerns of issues with acute symptoms not improving or if they worsen. See diagnoses and orders for additional plan(s). Allergies and medications were reviewed, list was updated, and refills given if needed. Past medical, surgical, social, and family history reviewed and updated as appropriate. Encouraged proper diet & exercise as well as compliance with taking medications. Age- appropriate health preventative measures were discussed. Return if symptoms worsen or fail to improve, for Keep next scheduled appointment.. Linda Silva APRN-SEEMA documented in this encounterAshtabula [facility] Hospital08-03-2023 Miscellaneous Notes* Telephone Encounter - Antonino Reyes RN - 05/02/2023 2:24 PM EDT Patient calling to request stronger medication for right hip pain. She says Meloxicam and Tylenol are not working for her. Asking for Tramadol. Advised appointment and scheduled with Linda Silva MANAGER INTERVENTIONAL on 05/03. Antonino Reyes RN documented in this encounterAshtabula [facility] Hospital08-02-2023 Miscellaneous Notes* Telephone Encounter - Gregg Molina PA-C - 05/01/2023 4:01 PM EDT Tania is taking 1,000 mg twice a day, with 7.5 mg meloxicam twice a day. She states the hip injection helped but only for a few weeks and not completely even when it was working. Present pain is inthe groin. I recommended she increase her tylenol to three times a day and continue protective weight bearing. Gregg Molina PA-C * Telephone Encounter - Olimpia Maradiaga RN - 05/01/2023 11:23 AM EDT Patient calling RN line. [place] [phone] Has upcoming appointment with Oscar on 05/16. States she is experiencing a lot of pain. Tylenol and meloxicam not working. Having a hard time ambulating. Asking for advise on what to do until appointment. documented in this encounterAshtabula [facility] Hospital07-27-2023 Miscellaneous Notes* Telephone Encounter - Maxine Phillips RN - 04/25/2023 1:17 PM EDT Pt states she spoke with Dr. Jacobsen's office and made an appt. It is about 3 wks away but they toldher she could call in every day to see if they have any cancellations. Pt doesn't feel she hurt anything else when she fell/tumbled. She is unsure what the injection was for but will ask about that. Pt does not like to take anything more than Tylenol 500 mg for pain. She can't tolerated prescription pain meds especially ones with Codeine in them. She will follow up with Dr. Jacobsen. * Telephone Encounter - Bg Chavarria MD - 04/24/2023 8:02 PM EDT Would see what Dr. Jacobsen recommends for further evaluation and treatment of the cause for her hip pain. Noted in PT note that she had taken a tumble. Wonder if hurt something in addition to what is already causing problems (Greater trochanteric syndrome per PT note as well as arthritis). Was the injection she is referring to for hip arthritis or for the greater trochanteric syndrome? Does she tolerate pain meds? None listed under history, not even tramadol. Wonder if prefers to avoid or if caused adverse effects if tried before. * Telephone Encounter - Maricel Darling RN - 04/24/2023 1:21 PM EDT Patient calls and states that she continues to have hip pain. Patient has seen orthopedics for this. Patient got an injection last month which has worn off. Patient is not a surgical candidate due tostill having cartilage in hip. Patient also has done physical therapy. Patient just called Dr. Jacobsen in regards to pain as well. Patient asking PCP what she thinks would be the next steps? Please review and advise, Maricel Darling RN documented in this encounterAshtabula General Hospital07-27-2023 Miscellaneous Notes* Telephone Encounter - Fredy Carrasco APRN.CNP - 04/25/2023 8:42 AM EDT I called Tania but reached her VM. Message left. I suggest she make an appointment with myself orDr. Jacobsen to assess her current symptoms of trochanteric bursitis versus hip OA and discuss options moving forward. Fredy Carrasco APRN.CNP April 25, 2023 8:43 AM * Telephone Encounter - Karla Naqvi - 04/24/2023 1:17 PM EDT Pt called in and stated that she had an injection In February and it has worn off . She is in a lot of pain and she just isn't sure what to do at this point . She would like to talk to Dr Jacobsen. documented in this encounterAshtabula General Hospital07-24-2023 History of Present illness Narrative* Zhen Powell, PT - 04/22/2023 8:26 AM EDT Episode Visit Count: 10 Therapist That Will Accept/Oversee The Plan Of Care: Zhen Powell Start of Care Date: 02/08/23 Onset Date: 01/04/23 Plan of Care Certification Date: 04/08/23 Next Certification Due Date: 05/13/23 Patient Identified by Name and Date of : Yes REHABILITATION AND SPORTS THERAPY PHYSICAL THERAPY TREATMENT NOTE ASSESSMENT: Tania Romero tolerated the session with expected muscle soreness. She demonstrated fatigue by the end of the session. The patient will continue to benefit from ongoing skilled physicaltherapy to progress toward set goals. PLAN FOR NEXT VISIT: POC update SUBJECTIVE: Patient Reason for Visit: The hip was ging well with the HEP. Medication started to wear off and it was getting harder to do the exercises. Hips are off. Wearing different shoes to make up for LE difference in length. Lost balance and took a tumble recently. Hit the side of her glasses. Picking up a weed with the RLE back and she fell down and hit her R hip and forearm. Pain: Pain Pain Level: 0 Pain Location: Hip - Right OBJECTIVE MEASURES WITH LEVEL OF FUNCTION: Pt wearing thicker shoe on the R making the hips level when standing TREATMENT: Therapeutic Exercise: 1: Seated hip march 5# 3 x 10 2: Seated LAQ 5# 3 x 10 3: STS 2 x 12 reps 4: Seated Row GTB 2 x 12 5: Seated hip ADD iso into ball x 20 reps Skilled Intervention: Patient was educated in proper exercise technique and purpose for exercises. Billing Therapeutic Exercise Treatment Minutes: 43 Total Treatment Time Minutes (timed/untimed): 43 Session Start Time : 825 Session Stop Time : 908 Zhen Powell PT documented in this encounterAshtabula [facility] Hospital07-10-2023 History of Present illness Narrative* Zhen Powell PT - 04/08/2023 8:36 AM EDT Episode Visit Count: 9 Therapist That Will Accept/Oversee The Plan Of Care: Zhen Powell Start of Care Date: 02/08/23 Onset Date: 01/04/23 Plan of Care Certification Date: 04/08/23 Next Certification Due Date: 05/13/23 Patient Identified by Name and Date of : Yes REHABILITATION AND SPORTS THERAPY PHYSICAL THERAPY PROGRESS REPORT PLAN OF CARE UPDATE: Assessment: Tania Romero demonstrates difficulty with walking in the community and bending and improvements in pain intensity, strength, and independence with the HEP. She has progressed toward goals. Patientcontinues to present with impairments in independence in exercise, range of motion, and strength that interfere with cooking . Current prognosis is Excellent due to: current objective clinical presentation, good overall health status . She will benefit from continued skilled therapy services to meet the updated goals for this plan of care as noted below. Goals updated 04/08/2023 Goals for Episode of Care: created on 02/08/23 through 04/05/23 Pt will demo active lumbar ROM without symptoms in 8 weeks or less - MET [place] in home exercise program. - Met so far Perform gardening without pain. - Progressing, will continue Pt will demo hip flexion strength and ER strength of 4+/5 in 4 weeks - Progressing, will continue Patient Goals: Decrease pain Patient Goals: Decrease pain Planned Interventions, Frequency, and Duration: 1x every other week, 4 weeks Total Number of Visits Planned: 2 Patient to be seen for Therapeutic exercise (68089), Neuromuscular re-education ([id number]), Manual therapy (31938), Self-penitentiary management (08252), Patient/Family/Caregiver Education PLAN FOR NEXT VISIT: R hip strengthening SUBJECTIVE: Patient Reason for Visit: The hip pain is still there. The exercise make it feel better. Walked around too much in the pool one day. Overall improvement is 60% with the HEP and injection for the hip. Cannot bend over to garden Patient Goals: Decrease pain Functional Limitations: cooking Prior Level of Function: Independent without limitations Intake Information: Prescription present Previous Treatment: NSAIDs Falls Interview: No positive findings with falls interview Pain: Pain Pain Location: Low Back/Lumbar Spine - Right PROMIS Scales Higher is Better 04/07/2023 03/07/2023 02/07/2023 Phys Func - Score 35 (moderate dysfunction) 35 (moderate dysfunction) 38 (moderate dysfunction) Phys Func - Percentile 7 % 7 % 12 % Self-Eff Symptom - Score 40 (Average) 38 (Low) 44 (Average) Self-Eff Symptom - Percentile 16 % 12 % 27 % T-scores: mean of general population = 50. 5 points is clinically meaningfully difference Percentiles provide an indication of how the patient's score ranks in relation to the general population. Higher percentile rankings indicate better function/quality of life. 50th percentile is the average of the general population and indicates half of respondents had a worse score. OBJECTIVE MEASURES WITH LEVEL OF FUNCTION: LE PROM R Hip Flexion: 110 Degrees (end range pain) R Hip Internal Rotation: 20 Degrees (end range pain) R Hip External Rotation: 55 Degrees LE Strength R Hip Flexion (L2): 4+/5 R Hip External Rotation: 4/5 R Knee Extension (L3): 5/5 Slower yovana and slow to mobilize with [id number] transfer TREATMENT: Therapeutic Exercise: 1: All objective measures taken this session 3: STS 2 x 12 reps 4: Seated hip december 02# 3 x 10 Skilled Intervention: Patient was educated in proper exercise technique and purpose for exercises. Correct performance of therapeutic exercises was facilitated with verbal and visual cuing. Billing Therapeutic Exercise Treatment Minutes: 41 Total Treatment Time Minutes (timed/untimed): 41 Zhen Powell PT documented in this encounterAs[facility] History of Present illness Narrative* Zhen Powell PT - 04/01/2023 8:28 AM EDT Episode Visit Count: 8 Therapist That Will Accept/Oversee The Plan Of Care: Zhen Powell Start of Care Date: 02/08/23 Onset Date: 01/04/23 Plan of Care Certification Date: 03/08/23 Next Certification Due Date: 04/12/23 Patient Identified by Name and Date of : Yes REHABILITATION AND SPORTS THERAPY PHYSICAL THERAPY TREATMENT NOTE ASSESSMENT: Tania Romero tolerated the session with fatigue. She demonstrated good tolerance to all therapeutic exercises. The patient will continue to benefit from ongoing skilled physical therapy to progress toward set goals. PLAN FOR NEXT VISIT: Continue with strengthening hip ER/glutes, and hip flexors SUBJECTIVE: Patient Reason for Visit: The injection is helping now again. Happy with this. Was tired going up the stairs at home and toppled over. Did not hurt herself. Pain: Pain Pain Location: Low Back/Lumbar Spine - Right OBJECTIVE MEASURES WITH LEVEL OF FUNCTION: TREATMENT: Therapeutic Exercise: 1: *STS 2 x 10 2: Hooklying hip ADD iso 3 x 10 holding 5 sec 3: 4 F step-ups 2 x 10 each leg 4: Seated hip december 02# 3 x 10 5: Discussed modifications to the HEP Skilled Intervention: Patient was educated in proper exercise technique and purpose for exercises. Correct performance of therapeutic exercises was facilitated with verbal and visual cuing. Billing Therapeutic Exercise Treatment Minutes: 40 Total Treatment Time Minutes (timed/untimed): 40 Zhen Powell PT documented in this encounterAsht[facility]06-26-[facility] History of Present illness Narrative* Zhen Powell PT - 03/25/2023 9:42 AM EDT Episode Visit Count: 7 Therapist That Will Accept/Oversee The Plan Of Care: Zhen Powell Start of Care Date: 02/08/23 Onset Date: 01/04/23 Plan of Care Certification Date: 03/08/23 Next Certification Due Date: 04/12/23 Patient Identified by Name and Date of : Yes REHABILITATION AND SPORTS THERAPY PHYSICAL THERAPY TREATMENT NOTE ASSESSMENT: Tania Romero tolerated the session with no issues. She demonstrated good tolerance to most therapeutic exercises. The patient will continue to benefit from ongoing skilled physical therapy to progress toward set goals. PLAN FOR NEXT VISIT: Avinash hip isometrics SUBJECTIVE: Patient Reason for Visit: Hip injectibn last sat. Helped for a few days. Pain: Pain Pain Level: 0 Pain Location: Low Back/Lumbar Spine - Right OBJECTIVE MEASURES WITH LEVEL OF FUNCTION: Hip flexion PROM 110 TREATMENT: Therapeutic Exercise: 1: Supine SLR x 10 (Pinching so stopped) 2: Hooklying hip ADD iso 3 x 10 holding 5 sec 3: Hooklying hip abd iso 3 x 10 4: Hooklying bridge 3 x 10 5: Seated TA with march 2 x 15 reps Skilled Intervention: Patient was educated in proper exercise technique and purpose for exercises. Correct performance of therapeutic exercises was facilitated with verbal and visual cuing. Billing Therapeutic Exercise Treatment Minutes: 41 Total Treatment Time Minutes (timed/untimed): 41 Zhen Powell PT documented in this encounterAshtabula [facility]06-21-[facility]23 Surgical operation note* Brief Op Note - Radha Nation APRN.MORTGAGE LOAN ASSISTANT - 03/20/2023 11:36 AM EDT BRIEF OP NOTE LOG ID: [id number] Surgery/Procedure Date: 03/20/2023 Surgeon(s)/Proceduralist(s) and Telegraphic Typewriter Operator Chief(s): Radha Nation APRN.CNP Procedure(s): Imaging guided right hip pain injection Anesthesia: local 5 ml lidocaine Findings: Successful right hip pain injection of 3ccLidocaine 1% and Kenalog 40mg/ml - 2 cc's . Pre-procedure pain of 5/10 Post-procedure pain of 0/10 Estimated Blood Loss: <1 ml Specimens: None Complications: None Pre-Op/Pre-Procedure Diagnosis: right hip pain Post-Op/Post-Procedure Diagnosis: same SIGNATURE: Radha Nation APRN.CNP PATIENT NAME: Tania Romero DATE: March 20, 2023 TIME: 11:36 AM PAGER/CONTACT #: documented in this encounterAshtabula [facility]06-20-2023 History of Present illness Narrative* Zhen Powell, PT - 03/19/2023 7:51 AM EDT Episode Visit Count: 6 Therapist That Will Accept/Oversee The Plan Of Care: Zhen Powell Start of Care Date: 02/08/23 Onset Date: 01/04/23 Plan of Care Certification Date: 03/08/23 Next Certification Due Date: 04/12/23 Patient Identified by Name and Date of : Yes REHABILITATION AND SPORTS THERAPY PHYSICAL THERAPY TREATMENT NOTE ASSESSMENT: Tania Romero tolerated the session with no issues. She demonstrated some groin pain on the R with PPT in standing. The patient will continue to benefit from ongoing skilled physical therapy to progress toward set goals. PLAN FOR NEXT VISIT: Progress hip strengthening SUBJECTIVE: Patient Reason for Visit: Feeling about the same as last time. Walking around and standing still causes quite a bit of pain. Pain: Pain Pain Location: Low Back/Lumbar Spine - Right OBJECTIVE MEASURES WITH LEVEL OF FUNCTION: TREATMENT: Therapeutic Exercise: 1: Seated november x 10 2: Seated november 1# on ankle 2 x 10 reps 3: Seated LAQ 1# x 10 4: Sidelying clamshell x10 then 2 x 15 Skilled Intervention: Patient was educated in proper exercise technique and purpose for exercises. Correct performance of therapeutic exercises was facilitated with verbal and visual cuing. Neuromuscular Re-Education: 1: Tactile cues for PPT in sitting x 10 2: PPT in standing x 10 (with tactile cues for proper movement pattern) Skilled Intervention: Skilled judgment used to assess appropriate program for balance and coordination activity. Billing Therapeutic Exercise Treatment Minutes: 33 Neuromuscular Re-Education Treatment Minutes: 8 Total Treatment Time Minutes (timed/untimed): 41 Zhen Powell PT documented in this encounterAshtabula [facility]06-16-[facility]23 History of Present illness Narrative* Bg Chavarria MD - 03/15/2023 11:52 AM EDT This note was created using [employer]. Subjective Tania Romero is a 82 year old female. Patient presents with: F/U 4 month SUBJECTIVE: Tania Romero is a 82 year old year old lady here today for 4 month follow up appointment for review of medical conditions. Noted that has had pain in hip since January. PT for trochanteric bursitis of hip Included back exercises. Helping some. Will get hip injection. Groin pain anteriorly on right and posterior hip. Gets spasms in muscles. Usually stiff. Can sleep only two positions. Hurts if stands for very long. Cannot cook well because of the pain. Limits how many days a week. Wants to garden more. Spot on left thigh that was smaller for years then recently with getting larger and deeper pink. 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 Vasquez (worse from 2011 to 2012) Low vitamin B12 level Multiple sclerosis ([facility]) 05/31/2016 Osteopenia Type 2 diabetes mellitus, without long-term current use of insulin ([facility]) 01/24/2021 Current Outpatient Medications Medication Sig metFORMIN ER (GLUCOPHAGE XR) 500 mg 24 hr tablet Take 1 tablet by mouth daily with breakfast. cyclobenzaprine (FLEXERIL) 5 mg tablet Take 1 tablet by mouth at bedtime as needed. alendronate (FOSAMAX) 70 mg tablet Take 1 tablet by mouth one time a week. Take with a full glass of water, on an empty stomach; do NOT lie down for 30minutes. meloxicam (MOBIC) 7.5 mg tablet Take 1 tablet by mouth twice daily. Insulin Syringe-Needle U-100 (BD INSULIN SYRINGE) 1 mL 25 x 1 syrg Use for b12 injection monthly azithromycin (ZITHROMAX) 250 mg tablet Take two tablets one hour before dental procedures. cyanocobalamin 1,000 mcg/mL USE ONE ML INTO THE MUSCLE ONCE MONTHLY Lactobacillus acidophilus (PROBIOTIC ORAL) Take by mouth. calcium carbonate (TUMS ORAL) Take by mouth as needed. Cholecalciferol, Vitamin D3, 125 mcg (5,000 unit) cap Take 1 capsule by mouth once daily. Lactase (LACTAID FAST ACT) 9,000 unit chew Uses as needed conjugated estrogens (PREMARIN) vaginal cream Use 0.5 g vaginally as needed. for 3 weeks then off for 1 week No current facility-administered medications for this visit. Review of Systems Objective BP 112/62 Pulse 75 Temp 36.3 C (97.4 F) Resp 18 Wt 51.3 kg (113 lb) SpO2 98% BMI 22.82 kg/m Last 5 Encounter Wt Readings: Date: Wt: 03/15/2023 51.3 kg (113 lb) 02/04/2023 53.5 kg (118 lb) 11/09/2022 53.1 kg (117 lb) 09/14/2022 52.6 kg (116 lb) 06/28/2022 51.3 kg (113 lb) No waist measurement recorded Estimated body mass index is 22.82 kg/m as calculated from the following: Height as of 03/05/22: 149.9 cm (4' 11). Weight as of this encounter: 51.3 kg (113 lb). Last 5 Encounter BP Readings: Date: BP: 03/15/2023 112/62 02/04/2023 114/64 11/09/2022 124/68 09/14/2022 100/60 06/28/2022 120/62 Physical Exam Constitutional: Appearance: Normal appearance. HENT: Head: Normocephalic. Eyes: Conjunctiva/sclera: Conjunctivae normal. Cardiovascular: Rate and Rhythm: Normal rate and regular rhythm. Heart sounds: Normal heart sounds. Pulmonary: Effort: Pulmonary effort is normal. Breath sounds: Normal breath sounds. Skin: General: Skin is warm and dry. Comments: See images for skin lesion on left anterior thigh Neurological: General: No focal deficit present. Mental Status: She is alert and oriented to person, place, and time. Psychiatric: Mood and Affect: Mood normal. Behavior: Behavior normal. Thought Content: Thought content normal. Judgment: Judgment normal. Assessment and Plan Encounter Diagnosis ICD-10-CM 1. Type 2 diabetes mellitus with other specified complication, without long-term current use of insulin (HCC) E11.69 HGB A1C COMP METABOLIC PANEL LIPID PANEL BASIC ALBUMIN/CREAT RATIO RND UR 2. Vitamin D deficiency E55.9 COMP METABOLIC PANEL VITAMIN D 25 HYDROXY Cholecalciferol, Vitamin D3, 125 mcg (5,000 unit) cap 3. Encounter for long-term current use of medication Z79.899 COMP METABOLIC PANEL CBC 4. Elevated LDL cholesterol level E78.00 LIPID PANEL BASIC 5. 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 Leg lesion, left L98.9 7. Gastroesophageal reflux disease, unspecified whether esophagitis present K21.9 Just occasionally. Tums effective or damien. Not more than twice a week. Above issues addressed with patient. Patient involved in shared decision making for management of medical issues. History and medications reviewed. Epic updated as needed Refills and/or prescriptions taken care of and meds adjusted as indicated after reviewed history, exam and labs. Health Maintenance reviewed. Updated record and/or ordered tests as recorded. Encouraged on efforts at healthy diet and regular exercise and adequate sleep. Bg Chavarria MD documented in this encounterAs[facility]06-02-2023 History of Present illness Narrative* Zhen Powell, PT - 03/01/2023 8:01 AM EDT Episode Visit Count: 4 Therapist That Will Accept/Oversee The Plan Of Care: Zhen Powell Start of Care Date: 02/08/23 Onset Date: 01/04/23 Plan of Care Certification Date: 02/08/23 Next Certification Due Date: 03/15/23 Patient Identified by Name and Date of : Yes REHABILITATION AND SPORTS THERAPY PHYSICAL THERAPY TREATMENT NOTE ASSESSMENT: Tania Romero tolerated the session with no issues. She demonstrated good tolerance to all therapeutic exercises. The patient will continue to benefit from ongoing skilled physical therapy to progress toward set goals. PLAN FOR NEXT VISIT: POC update SUBJECTIVE: Patient Reason for Visit: Can sleep pretty well for the most part. Wants an injection. But nothing is scheduled yet. Trying to get it scheduled. Got up feeling pretty good this morning. If she does anything that involves bending and lifting its slow going and the pain can get started. Pain: Pain Pain Level: 2 Pain Location: Low Back/Lumbar Spine - Right OBJECTIVE MEASURES WITH LEVEL OF FUNCTION: Pressure from the stabilizer onto the low back causes ext and pain into the R SIJ region TREATMENT: Therapeutic Exercise: 1: Hooklying PPT on stabilizer to 60 mmHg counting to 3, x 10 reps 2: Hooklying PPT on stabilizer 60 mmHg with alt marches 3 x 8 reps 3: Seated lumbar flexion 2 x 60 sec 4: Seated Hs stretch 3 x 30 sec each leg Skilled Intervention: Patient was educated in proper exercise technique and purpose for exercises. Provided written instruction for home exercise program to facilitate proper performance and compliance. Billing Therapeutic Exercise Treatment Minutes: 41 Total Treatment Time Minutes (timed/untimed): 41 Zhen Powell PT documented in this encounterAshtabula [facility]05-13-2023 NoteIMPRESSION: Progressive right hip osteoarthrosis [employer] Assistant Principal: HYUN Transcribe Date/Time: Feb 09 2023 6:37P Dictated by : SALVATORE AYERS MD This examination was interpreted and the report reviewed and electronically signed by: SALVATORE AYERS MD on Feb 09 2023 6:38PM [facility] [id number] History of Present illness Narrative* Chaya Schmidt CT - 02/07/2023 1:40 PM EDT Radiology Service Progress Note PATIENT NAME: Tania Romero DATE OF SERVICE: February 07, 2023 TIME: 1:54 PM PATIENT IDENTITY VERIFICATION COMPLETED USING TWO (2) IDENTIFIERS: Name and Date of confirmedby patient verbally. FALL SCREENING: Has the patient had 2 falls in the last year or 1 fall with injury or currently using an Ambulatory Assistive Device (Walker, Cane, Wheelchair, Crutches, etc.)? Yes, Patient High Riskfor Falls What interventions were put in place to prevent falls during this visit? Offered Assistance with Transfers/Clothing and Increased Observations by Caregivers PATIENT GENDER DATA: Female. status: : No status: NO. PATIENT RELEVANT IMPLANT DATA REVIEWED: Not Applicable RADIOLOGY DEPARTMENT: General X-ray: Exam(s) Completed: Pelvis X-Ray: Pelvis with Hip Right and Wt.Bearing PERIPHERAL IV DATA: Not applicable SIGNED BY: ROMY Salazar February 07, 2023 1:54 PM documented in this encounterAshtabula [facility]05-08-2023 History of Present illness Narrative* Luis Manuel Hernandez, CARMEL.DRAW HAND - 02/04/2023 2:40 PM EDT SUBJECTIVE: ADVANCE DIRECTIVE DISCUSSION due on 09/30/2022 URINE ALBUMIN:CREATININE RATIO due on 02/19/2023 HPI Tania Romero is a 82 year old female. Presents today for routine follow up visit. PMH signficantfor ACTIVE PROBLEM LIST Family History of Malignant Neoplasm of Gastrointestinal Tract Elevated Fasting Glucose Low Vitamin B12 Level Multiple Sclerosis (Hcc) Abnormality of Gait Osteopenia Chronic Midline Low Back Pain Without Sciatica Primary Osteoarthritis of Both Hips Type 2 Diabetes Mellitus, Without Long-Term Current Use of Insulin (Hcc) Gerd (Gastroesophageal Reflux Disease) Abnormal Ekg Vitamin D Deficiency Elevated Ldl Cholesterol Level Colon Cancer Screening HPI excerpted from previous visit: She has since last seen she had ablation which has helped with back pain. Expect this to last about1 year. She notes probiotics that she obtained online and damien chews are helping with GERD symptoms. Notes no recent MS flare symptoms. Neurologist: Previously followed at [facility], Dr Andrea Dobbins. Last visit 2015. [employer] message sent on February 01, 2023 regarding right groin pain radiating to right knee, increased activity. Can occur with sitting or lying down. Interfering with daily activities. Today notes acute on chronic right hip pain. Recently got much worse about 4 weeks ago. She noted gardening when this initially started. Has persisted on, initially was intermittent now continuous.. Achy right generalized lateral and posterior hip pain which is radiating to the groin. Worse with walking. Somewhat alleviated with rest. Difficult to find a comfortable position. Difficult to sleep at night. Notes typically does not do well with oral pain medication such as hydrocodone or oxycodone. Has taken Flexeril in the past which did help. Orthopedic provider: Dr Lorena Jacobsen. DIABETES MELLITUS: Without report of excessive thirst or increased frequency of urination, chest pain or dyspnea , numbness, tingling or pain in extremities, new or unusual visual symptoms, low sugar/hypoglycemic reactions, weight loss/gain, lightheadedness/dizziness and bowel changes/loose stools.Patient's last HgA1C was Hemoglobin A1C (%) Date Value 02/19/2022 6.6 06/27/2021 6.9 10/17/2020 6.2 Hemoglobin A1C (POCT) (%) Date Value 11/09/2022 6.3 Review of Systems Constitutional: Negative. Respiratory: Negative. Cardiovascular: Negative. Endocrine: Negative. Musculoskeletal: Positive for arthralgias and back pain. Objective BP 114/64 Pulse 84 Resp 16 Wt 53.5 kg (118 lb) BMI 23.83 kg/m Physical Exam Vitals and nursing note reviewed. Constitutional: Appearance: Normal appearance. HENT: Head: Normocephalic and atraumatic. Eyes: Conjunctiva/sclera: Conjunctivae normal. Cardiovascular: Rate and Rhythm: Normal rate. Pulses: Normal pulses. Pulmonary: Effort: Pulmonary effort is normal. Musculoskeletal: Right hip: Tenderness present. Decreased range of motion. Decreased strength. Right lower leg: No edema. Left lower leg: No edema. Feet: Right foot: Protective Sensation: 10 sites tested. 10 sites sensed. Left foot: Protective Sensation: 10 sites tested. 10 sites sensed. Skin: General: Skin is warm and dry. Neurological: General: No focal deficit present. Mental Status: She is alert and oriented to person, place, and time. ALLERGIES Allergen Reactions Amoxicillin Rash Clindamycin Contraindication-Medical Surgical C diff Compazine [Prochlor* Intolerance Penicillins Rash, Intolerance Rash after 4 days of antibiotic . MEDICATIONS: alendronate (FOSAMAX) 70 mg tablet Take 1 tablet by mouth one time a week. Take with a full glass of water, on an empty stomach; do NOT lie down for 30minutes. meloxicam (MOBIC) 7.5 mg tablet Take 1 tablet by mouth twice daily. Insulin Syringe-Needle U-100 (BD INSULIN SYRINGE) 1 mL 25 x 1 syrg Use for b12 injection monthly azithromycin (ZITHROMAX) 250 mg tablet Take two tablets one hour before dental procedures. cyanocobalamin 1,000 mcg/mL USE ONE ML INTO THE MUSCLE ONCE MONTHLY metFORMIN ER (GLUCOPHAGE XR) 500 mg 24 hr tablet Take 1 tablet by mouth daily with breakfast. Lactobacillus acidophilus (PROBIOTIC ORAL) Take by mouth. calcium carbonate (TUMS ORAL) Take by mouth as needed. Cholecalciferol, Vitamin D3, 125 mcg (5,000 unit) cap Take 1 capsule by mouth once daily. Lactase (LACTAID FAST ACT) 9,000 unit chew Uses as needed conjugated estrogens (PREMARIN) vaginal cream Use 0.5 g vaginally as needed. for 3 weeks then off for 1 week PAST MEDICAL HISTORY Diagnosis Date Arthritis DJD (degenerative joint disease) of hip Left--Dr. Vasquez (worse from 2011 to 2012) Low vitamin B12 level Multiple sclerosis ([facility]) 05/31/2016 Osteopenia Type 2 diabetes mellitus, without long-term current use of insulin ([facility]) 01/24/2021 Social History Tobacco Use Smoking status: Former Smokeless tobacco: Never Vaping Use Vaping Use: Never used Substance Use Topics Alcohol use: Yes Comment: GLASS OF WINE DAILY Drug use: Not Currently Component Latest Ref Rng & Units 06/27/2021 02/19/2022 02/20/2022 03/13/2022 Protein, Total 6.3 - 8.0 g/dL 6.7 Albumin 3.9 - 4.9 g/dL 3.9 Calcium 8.5 - 10.2 mg/dL 9.4 Bilirubin, Total 0.2 - 1.3 mg/dL 0.4 Alkaline Phosphatase 34 - 123 U/L 79 AST 13 - 35 U/L 20 Glucose 74 - 99 mg/dL 106 (H) BUN 7 - 21 mg/dL 30 (H) Creatinine 0.58 - 0.96 mg/dL 0.84 Sodium 136 - 144 mmol/L 138 Potassium 3.7 - 5.1 mmol/L 4.3 Chloride 97 - 105 mmol/L 100 CO2 22 - 30 mmol/L 26 Anion Gap 9 - 18 mmol/L 12 ALT 7 - 38 U/L 7 eGFR- >60 eGFR-All Other Races . >60 WBC 3.70 - 11.00 k/uL 7.95 RBC 3.90 - 5.20 m/uL 4.28 Hemoglobin 11.5 - 15.5 g/dL 11.6 Hematocrit 36.0 - 46.0 % 37.4 MCV 80.0 - 100.0 fL 87.4 MCH 26.0 - 34.0 pG 27.1 MCHC 30.5 - 36.0 g/dL 31.0 RDW-CV 11.5 - 15.0 % 13.5 Platelet Count 150 - 400 k/uL 322 MPV 9.0 - 12.7 fL 9.3 Absolute nRBC <0.01 k/uL <0.01 Cholesterol, Total <200 mg/dL 209 (H) Triglyceride <150 mg/dL 79 HDL Cholesterol >39 mg/dL 65 LDL Cholesterol <100 mg/dL 128 (H) Non HDL Cholesterol <130 mg/dL 144 (H) Fasting Time hrs 12 VLDL Cholesterol <30 mg/dL 16 TC:HDL Ratio <5.10 3.22 LDL:HDL Ratio <2.54 1.97 Creatinine, Ur Random (UCRR) 20.0 - 300.0 mg/dL 57.2 Albumin, Urine Random mg/L <12.0 Albumin/Creat Ratio <30 mg/g <21 Hemoglobin A1C 4.3 - 5.6 % 6.9 (H) 6.6 (H) Estimated Average Glucose mg/dL 151 143 Vitamin D 25 Hydroxy 31.0 - 80.0 ng/mL 98.6 (H) Vitamin B12 232 - 1,245 pg/mL 582 Glucose, Point of Care 74 - 99 mg/dL 106 (A) SARS-CoV-2, ONOFRE Negative Positive (A) ASSESSMENT/PLAN: 1. Chronic pain of right hip - ICD9: 719.45, 338.29, ICD10: M25.551, G89.29 (primary diagnosis) - XR HIP GENERAL 3V PELV/AP/LAT RIGHT - CYCLOBENZAPRINE 5 MG TABLET 2. S/P total left hip arthroplasty - ICD9: V43.64, ICD10: Z96.642 3. Multiple sclerosis (HCC) - ICD9: 340, ICD10: G35 She notes chronic right hip pain now progressively worsening over the last 4 weeks, nearly constantpain. Recommend follow-up x-ray and appointment at her earliest convenience with Dr. Jacobsen. Luis Manuel Hernandez, REFRIGERATION BRAZER/SOLDERER.DRAW HAND Medical Decision Making: Problems: Moderate: 1+ chronic illnesses with change Data: Unique test(s) ordered: 1 Risk: Moderate: Drug management Medical Decision Making Level: 4 - Moderate documented in this encounterAsht[facility]03-23-2023 Miscellaneous Notes* Telephone Encounter - Barbara De Guzman LPN - 12/20/2022 3:47 PM EDT Patient has been identified by name and date of : Yes Patient phones for refill(s): Requested Prescriptions Pending Prescriptions Disp Refills azithromycin (ZITHROMAX) 250 mg tablet 2 tablet 3 Sig: Take two tablets one hour before dental procedures. Date of last office visit in primary care: 11/09/2022 4 month follow-up: 03/15/2023 Last 2 Encounter Wt Readings: Date: Wt: 11/09/2022 53.1 kg (117 lb) 09/14/2022 52.6 kg (116 lb) Previous labs/tests for medication: Not applicable Please advise. Thank you. Barbara De Guzman LPN documented in this encounterAshtabula [facility]03-21-2023 Miscellaneous Notes* Telephone Encounter - Karla Tom RP - 12/18/2022 10:58 AM EDT Pharmacist Refill Authorization Review Name: Tania Romero Date: 12/18/2022 Time: 10:58 AM Refill authorization request(s) received and reviewed under effective consult agreement. Upon review, did confirm that an active patient-provider relationship exists and that the prescriber is a participating physician under the consult agreement. Last office visit in this department: 11/09/2022 Bg Chavarria MD Last distance health visit in this department: 03/15/2022 Angus Silveira MD Next appointment in this department: 03/15/2023 Bg Chavarria MD The medication(s) fall under the following categories: Category 3: Medication(s) does not qualify for pharmacist renewal due to condition or diagnosis excluded from collaborative practice agreement. Renewal request sent to provider for review. Requested Prescriptions Pending Prescriptions Disp Refills meloxicam (MOBIC) 7.5 mg tablet 180 tablet 3 Sig: Take 1 tablet by mouth twice daily. Number of refills approved in this encounter: 0 Number of refills forwarded to provider for review: 1 Number of refills denied in this encounter: 0 Karla Tom RPh documented in this encounterAshtabula [facility]02-21-2023 Miscellaneous Notes* Telephone Encounter - Guillaume Walker RPh - 11/20/2022 10:01 AM EST Pharmacist Refill Authorization Review Name: Tania Romero Date: 11/20/2022 Time: 10:02 AM Refill authorization request(s) received and reviewed under effective consult agreement. Upon review, did confirm that an active patient-provider relationship exists and that the prescriber is a participating physician under the consult agreement. Last office visit in this department: 11/09/2022 Bg Chavarria MD Last distance health visit in this department: 03/15/2022 Angus Silveira MD Next appointment in this department: 03/15/2023 Bg Chavarria MD The medication(s) fall under the following categories: Category 3: Medication(s) does not qualify for pharmacist renewal due to medication excluded from collaborative practice agreement. Renewal request sent to provider for review. Requested Prescriptions Pending Prescriptions Disp Refills Insulin Syringe-Needle U-100 (BD INSULIN SYRINGE) 1 mL 25 x 1 syrg 12 Each 3 Sig: Use for b12 injection monthly Number of refills approved in this encounter: 0 Number of refills forwarded to provider for review: 1 Number of refills denied in this encounter: 0 Guillaume Walker RPh documented in this encounterAshtabula [facility]02-08-2023 Miscellaneous Notes* Telephone Encounter - LEANA Torres - 11/07/2022 11:43 AM EST Patient is requesting lab work before her appointment on Saturday with Dr. Chavarria. Please review and advise. LEANA Torres November 07, 2022 11:44 AM documented in this encounterAshtabula [facility] Hospital12-16-2022 History of Present illness Narrative* Nahed Madrigal RT(R) - 09/14/2022 11:40 AM EST Radiology Service Progress Note PATIENT NAME: Tania Romero DATE OF SERVICE: September 14, 2022 TIME: 11:53 AM PATIENT IDENTITY VERIFICATION COMPLETED USING TWO (2) IDENTIFIERS: Name and Date of confirmedby patient verbally. FALL SCREENING: Has the patient had 2 falls in the last year or 1 fall with injury or currently using an Ambulatory Assistive Device (Walker, Cane, Wheelchair, Crutches, etc.)? No PATIENT GENDER DATA: Female. status: : No status: NO. PATIENT RELEVANT IMPLANT DATA REVIEWED: Not Applicable RADIOLOGY DEPARTMENT: General X-ray: Exam(s) Completed: Pelvis X-Ray: Pelvis with Hip Right PERIPHERAL IV DATA: Not applicable SIGNED BY: RT Mariluz(R) September 14, 2022 11:53 AM documented in this encounterAshtabula [facility] Hospital12-16-2022 History of Present illness Narrative* Linda Silva APRN.CNP - 09/14/2022 11:24 AM EST Images from the original note were not included. SUBJECTIVE Tania Romero is a 82 year old female here today for acute concern. Chief Complaint Patient presents with: Pain: right side buttock states fell out of shower 3 weeks ago HPI Tania Romero is a 82 year old female who presents today for concerns of some pain. She slid downin the tub and landed outside of it about 3 weeks ago while [place]. She initially had some aching but no serious injury. Did not hit head or black out or pass out. 3 to 4 days ago started with some right hip pain. 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 It is localized to right hip and only with weight bearing. It does not radiate. It is not constant. It is described as dull, not sharp. It has been alleviated by sitting, takes meloxicam 7.5 mg daily but has not tried anything else and aggravated by weight bearing. Severity is 4/10. No symptoms of numbness, ti ngling, weakness, saddle paresthesia and bowel or bladder difficulties/leaking/loss of control. Her medications were reviewed today and her list is now up to date. Medications Current Outpatient Medications Medication Sig azithromycin (ZITHROMAX) 250 mg tablet Take two tablets one hour before dental procedures. cyanocobalamin 1,000 mcg/mL USE ONE ML INTO THE MUSCLE ONCE MONTHLY metFORMIN ER (GLUCOPHAGE XR) 500 mg 24 hr tablet Take 1 tablet by mouth daily with breakfast. Lactobacillus acidophilus (PROBIOTIC ORAL) Take by mouth. alendronate (FOSAMAX) 70 mg tablet Take 1 tablet by mouth one time a week. Take with a full glass of water, on an empty stomach; do NOT lie down for 30minutes. meloxicam (MOBIC) 7.5 mg tablet Take 1 tablet by mouth twice daily. (Patient taking differently: Take 7.5 mg by mouth once daily.) calcium carbonate (TUMS ORAL) Take by mouth as needed. Cholecalciferol, Vitamin D3, 125 mcg (5,000 unit) cap Take 1 capsule by mouth once daily. Lactase (LACTAID FAST ACT) 9,000 unit chew Uses as needed conjugated estrogens (PREMARIN) vaginal cream Use 0.5 g vaginally as needed. for 3 weeks then off for 1 week peg 3350-Electrolytes (GOLYTELY) 236-22.74-6.74 -5.86 gram suspension Refer to printed prep instructions from your provider. Insulin Syringe-Needle U-100 (BD INSULIN SYRINGE) 1 mL 25 x 1 syrg Use for b12 injection monthly No current facility-administered medications for this visit. ALLERGIES Allergen Reactions Amoxicillin Rash Clindamycin Contraindication-Medical Surgical C diff Compazine [Prochlor* Intolerance Penicillins Rash, Intolerance Rash after 4 days of antibiotic . ACTIVE PROBLEM LIST Vitamin D Deficiency - 03/04/2022 Elevated Ldl Cholesterol Level - 03/04/2022 Colon Cancer Screening - 03/04/2022 Type 2 Diabetes Mellitus, Without Long-Term Current Use of Insulin (Hcc) - 01/24/2021 Gerd (Gastroesophageal Reflux Disease) - 01/24/2021 Abnormal Ekg - 01/24/2021 Primary Osteoarthritis of Both Hips - 06/07/2020 Chronic Midline Low Back Pain Without Sciatica - 04/29/2019 Comment: Doing better with exercises; had PT Osteopenia Abnormality of Gait - 06/21/2016 Multiple Sclerosis (Hcc) - 05/31/2016 Elevated Fasting Glucose - 05/04/2013 Comment: was told had had prediabetes in the past Low Vitamin B12 Level Family History of Malignant Neoplasm of Gastrointestinal Tract - 05/06/2012 Comment: father Social History Tobacco Use Smoking status: Former Smokeless tobacco: Never Vaping Use Vaping Use: Never used Substance Use Topics Alcohol use: Yes Comment: GLASS OF WINE DAILY Drug use: Not Currently Review of Systems Musculoskeletal: Positive for arthralgias. Negative for back pain, gait problem, joint swelling, myalgias, neck pain and neck stiffness. OBJECTIVE BP 100/60 Pulse 87 Resp 16 Wt 116 lb (52.6kg) SpO2 96% Physical Exam Vitals and nursing note reviewed. Constitutional: General: She is awake. She is not in acute distress. Appearance: She is well-developed and well-groomed. She is not ill-appearing, toxic-appearing or diaphoretic. Cardiovascular: Rate and Rhythm: Normal rate and regular rhythm. Heart sounds: Normal heart sounds. Pulmonary: Effort: Pulmonary effort is normal. No respiratory distress. Breath sounds: Normal breath sounds. Musculoskeletal: Thoracic back: Normal. Lumbar back: Normal. Right hip: No deformity, lacerations, tenderness, bony tenderness or crepitus. Decreased range of motion (age related). Normal strength. Legs: Skin: General: Skin is warm and dry. Capillary Refill: Capillary refill takes less than 2 seconds. Neurological: General: No focal deficit present. Mental Status: She is alert and oriented to person, place, and time. Mental status is at baseline. Psychiatric: Mood and Affect: Mood normal. Behavior: Behavior normal. Behavior is cooperative. Thought Content: Thought content normal. Judgment: Judgment normal. ASSESSMENT/PLAN: 1. Bursitis of other bursa of right hip - ICD9: 726.5, ICD10: M70.71 (primary diagnosis) Suspect some hip bursitis post-fall. Discussed trying ice/heat, gentle range of motion, gentle stretches. Check xray given her ago to ensure no fracture. May increase meloxicam short term to 7.5 mg twice daily. Call with results Saturday and get an update. - XR HIP GENERAL 3V PELV/AP/LAT RIGHT 2. Fall, sequela - ICD9: 909.4, E929.3, ICD10: W19.XXXS No injury to head, she is aware of ways to reduce risk for falls in the home. Portions of this note have been entered by ancillary staff. I have reviewed and when necessary edited, so that they are an adequate record of my encounter with this patient Please note that parts of this document were created using voice recognition software and therefore may contain grammatical errors. Patient verbalizes understanding of instructions from today's visit and in agreement with treatmentplan. Questions answered. Agrees to call the office if questions, concerns of issues with acute symptoms not improving or if they worsen. Return if symptoms worsen or fail to improve, for Keep next scheduled appointment.. Linda Silva APRN-SEEMA documented in this encounterAshtabula [facility]12-09-2022 History of Present illness Narrative* Celine Leigh RT(R) - 09/07/2022 2:50 PM EST Radiology Service Progress Note PATIENT NAME: Tania Romero DATE OF SERVICE: September 07, 2022 TIME: 2:55 PM PATIENT IDENTITY VERIFICATION COMPLETED USING TWO (2) IDENTIFIERS: Name and Date of confirmedby patient verbally. FALL SCREENING: Has the patient had 2 falls in the last year or 1 fall with injury or currently using an Ambulatory Assistive Device (Walker, Cane, Wheelchair, Crutches, etc.)? No PATIENT GENDER DATA: Female. status: : No status: NO. PATIENT RELEVANT IMPLANT DATA REVIEWED: Yes RADIOLOGY DEPARTMENT: General X-ray: Exam(s) Completed: Lower Extremity X- Ray(s): Foot, Bilateral and Wt. Bearing PERIPHERAL IV DATA: Not applicable SIGNED BY: RT Ok(Cody) September 07, 2022 2:55 PM documented in this encounterAshtabula [facility] Hospital11-15-2022 Miscellaneous Notes* Telephone Encounter - Linda Silva APRN.MORTGAGE LOAN ASSISTANT - 08/14/2022 7:46 AM EST Please send referral for podiatry, Dr. Koch. Thanks!! documented in this encounterAshtabula [facility] Hospital10-13-2022 History of Present illness Narrative* Leann Redding - 07/12/2022 11:16 AM EDT Refill Authorization Consent Tania Romero was encountered by telephone to obtain consent for pharmacist managed refill authorization. Patient gives consent to the authorization of prescriptions by a pharmacist. Leann Redding 07/12/2022 documented in this encounterAshtabula [facility] Hospital09-29-2022 History of Present illness Narrative* Luis Manuel Hernandez APRN.DRAW HAND - 06/28/2022 11:00 AM EDT SUBJECTIVE: ADVANCE DIRECTIVE DISCUSSION Never done DEPRESSION ASSESSMENT Never done INFLUENZA(1) due on 05/31/2022 LDL CHOLESTEROL due on 06/27/2022 HPI Tania Romero is a 81 year old female. Presents today for routine follow up visit. PMH signficantfor ACTIVE PROBLEM LIST Family History of Malignant Neoplasm of Gastrointestinal Tract Elevated Fasting Glucose Low Vitamin B12 Level Multiple Sclerosis (Hcc) Abnormality of Gait Osteopenia Chronic Midline Low Back Pain Without Sciatica Primary Osteoarthritis of Both Hips Type 2 Diabetes Mellitus, Without Long-Term Current Use of Insulin (Hcc) Gerd (Gastroesophageal Reflux Disease) Abnormal Ekg Vitamin D Deficiency Elevated Ldl Cholesterol Level Colon Cancer Screening She has since last seen she had ablation which has helped with back pain. Expect this to last about1 year. She notes probiotics that she obtained online and damien chews are helping with GERD symptoms. Notes no recent MS flare symptoms. DIABETES MELLITUS: Without report of excessive thirst or increased frequency of urination, chest pain or dyspnea , numbness, tingling or pain in extremities, new or unusual visual symptoms, low sugar/hypoglycemic reactions, weight loss/gain, lightheadedness/dizziness and bowel changes/loose stools.Patient's last HgA1C was Hemoglobin A1C (%) Date Value 02/19/2022 6.6 06/27/2021 6.9 10/17/2020 6.2 ) Due for eye exam. Routinely has foot care /pedicure. GERD: controlled most of the time. Notes Dr Jones recommended this diet for kidney stones; had one recently and more water. No followps necessary. MS: not recently seen. Currently stable, no recent flares. Previously seen by Dr. Dobbins. Quiet now,no recent problems. Review of Systems Constitutional: Negative. Respiratory: Negative. Cardiovascular: Negative. Endocrine: Negative. Musculoskeletal: Positive for back pain. Objective BP 120/62 Pulse 74 Resp 16 Wt 51.3 kg (113 lb) SpO2 97% BMI 22.82 kg/m Physical Exam Vitals and nursing note reviewed. Constitutional: Appearance: Normal appearance. HENT: Head: Normocephalic and atraumatic. Eyes: Conjunctiva/sclera: Conjunctivae normal. Cardiovascular: Rate and Rhythm: Normal rate. Pulses: Normal pulses. Pulmonary: Effort: Pulmonary effort is normal. Musculoskeletal: Right lower leg: No edema. Left lower leg: No edema. Feet: Right foot: Protective Sensation: 10 sites tested. 10 sites sensed. Left foot: Protective Sensation: 10 sites tested. 10 sites sensed. Skin: General: Skin is warm and dry. Neurological: General: No focal deficit present. Mental Status: She is alert and oriented to person, place, and time. ALLERGIES Allergen Reactions Amoxicillin Rash Clindamycin Contraindication-Medical Surgical C diff Compazine [Prochlor* Intolerance Penicillins Rash, Intolerance Rash after 4 days of antibiotic . MEDICATIONS: azithromycin (ZITHROMAX) 250 mg tablet Take two tablets one hour before dental procedures. cyanocobalamin 1,000 mcg/mL USE ONE ML INTO THE MUSCLE ONCE MONTHLY metFORMIN ER (GLUCOPHAGE XR) 500 mg 24 hr tablet Take 1 tablet by mouth daily with breakfast. Lactobacillus acidophilus (PROBIOTIC ORAL) Take by mouth. alendronate (FOSAMAX) 70 mg tablet Take 1 tablet by mouth one time a week. Take with a full glass of water, on an empty stomach; do NOT lie down for 30minutes. meloxicam (MOBIC) 7.5 mg tablet Take 1 tablet by mouth twice daily. calcium carbonate (TUMS ORAL) Take by mouth as needed. Insulin Syringe-Needle U-100 (BD INSULIN SYRINGE) 1 mL 25 x 1 syrg Use for b12 injection monthly Cholecalciferol, Vitamin D3, 125 mcg (5,000 unit) cap Take 1 capsule by mouth once daily. Lactase (LACTAID FAST ACT) 9,000 unit chew Uses as needed conjugated estrogens (PREMARIN) vaginal cream Use 0.5 g vaginally as needed. for 3 weeks then off for 1 week peg 3350-Electrolytes (GOLYTELY) 236-22.74-6.74 -5.86 gram suspension Refer to printed prep instructions from your provider. 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 Vasquez (worse from 2011 to 2012) Low vitamin B12 level Multiple sclerosis ([facility]) 05/31/2016 Osteopenia Type 2 diabetes mellitus, without long-term current use of insulin ([facility]) 01/24/2021 Social History Tobacco Use Smoking status: Former Smokeless tobacco: Never Vaping Use Vaping Use: Never used Substance Use Topics Alcohol use: Yes Comment: GLASS OF WINE DAILY Drug use: Not Currently Component Latest Ref Rng & Units 06/27/2021 02/19/2022 02/20/2022 03/13/2022 Protein, Total 6.3 - 8.0 g/dL 6.7 Albumin 3.9 - 4.9 g/dL 3.9 Calcium 8.5 - 10.2 mg/dL 9.4 Bilirubin, Total 0.2 - 1.3 mg/dL 0.4 Alkaline Phosphatase 34 - 123 U/L 79 AST 13 - 35 U/L 20 Glucose 74 - 99 mg/dL 106 (H) BUN 7 - 21 mg/dL 30 (H) Creatinine 0.58 - 0.96 mg/dL 0.84 Sodium 136 - 144 mmol/L 138 Potassium 3.7 - 5.1 mmol/L 4.3 Chloride 97 - 105 mmol/L 100 CO2 22 - 30 mmol/L 26 Anion Gap 9 - 18 mmol/L 12 ALT 7 - 38 U/L 7 eGFR- >60 eGFR-All Other Races . >60 WBC 3.70 - 11.00 k/uL 7.95 RBC 3.90 - 5.20 m/uL 4.28 Hemoglobin 11.5 - 15.5 g/dL 11.6 Hematocrit 36.0 - 46.0 % 37.4 MCV 80.0 - 100.0 fL 87.4 MCH 26.0 - 34.0 pG 27.1 MCHC 30.5 - 36.0 g/dL 31.0 RDW-CV 11.5 - 15.0 % 13.5 Platelet Count 150 - 400 k/uL 322 MPV 9.0 - 12.7 fL 9.3 Absolute nRBC <0.01 k/uL <0.01 Cholesterol, Total <200 mg/dL 209 (H) Triglyceride <150 mg/dL 79 HDL Cholesterol >39 mg/dL 65 LDL Cholesterol <100 mg/dL 128 (H) Non HDL Cholesterol <130 mg/dL 144 (H) Fasting Time hrs 12 VLDL Cholesterol <30 mg/dL 16 TC:HDL Ratio <5.10 3.22 LDL:HDL Ratio <2.54 1.97 Creatinine, Ur Random (UCRR) 20.0 - 300.0 mg/dL 57.2 Albumin, Urine Random mg/L <12.0 Albumin/Creat Ratio <30 mg/g <21 Hemoglobin A1C 4.3 - 5.6 % 6.9 (H) 6.6 (H) Estimated Average Glucose mg/dL 151 143 Vitamin D 25 Hydroxy 31.0 - 80.0 ng/mL 98.6 (H) Vitamin B12 232 - 1,245 pg/mL 582 Glucose, Point of Care 74 - 99 mg/dL 106 (A) SARS-CoV-2, ONOFRE Negative Positive (A) ASSESSMENT/PLAN: 1. Type 2 diabetes mellitus with other specified complication, without long-term current use of insulin (HCC) - ICD9: 250.80, ICD10: E11.69 (primary diagnosis) Currently well controlled, continue current treatment unchanged for now, continue to monitor - ALBUMIN/CREAT RATIO RND UR - HGB A1C 2. Low vitamin B12 level - ICD9: 266.2, ICD10: E53.8 Currently well controlled, continue current treatment unchanged for now, continue to monitor 3. Gastroesophageal reflux disease, unspecified whether esophagitis present - ICD9: 530.81, ICD10: K21.9 Notes improvement with damien chews, probiotics Continue current treatment unchanged for now, continue to monitor 4. Vitamin D deficiency - ICD9: 268.9, ICD10: E55.9 - VITAMIN D 25 HYDROXY 5. Elevated LDL cholesterol level - ICD9: 272.0, ICD10: E78.00 - LIPID PANEL BASIC 6. Encounter for immunization - ICD9: V03.89, ICD10: Z23 - INFLUENZA SEASONAL QUADRIVALENT HIGH DOSE AGE 65+ Labs today 4 mo follow up Bg Chavarria MD Continue current treatments unchanged Luis Manuel Hernandez APRN.CNS Medical Decision Making: Problems: Moderate: 2+ stable chronic illnesses Data: Unique test(s) ordered: 3+ Risk: Moderate: Drug management Medical Decision Making Level: 4 - Moderate documented in this encounterAshtabula [facility]08-05-2022 Nurse Note* Maxine Phillips RN - 05/04/2022 8:02 AM EDT Pt received in PACU. Pt mildly drowsy, but arouses easily. Denies pain or nausea. Abd soft and non distended. Maxine Phillips RN documented in this encounterAshtabula [facility] Hospital08-05-2022 History and physical note * Nuha Saab MD - 05/04/2022 7:30 AM EDT UPDATED PROCEDURAL SEDATION HISTORY AND PHYSICAL EXAMINATION SERVICE DATE: 05/04/2022 SERVICE TIME: 7:21 PHYSICAL EXAM MUST BE COMPLETED ON ADMISSION PROCEDURE: colonoscopy, possible biopsies Procedure Indications: rectal bleeding The History and Physical (completed in the past 30 days) has been reviewed and the patient has beenexamined. The contents accurately reflect the patient's condition with the following additions or revisions since the H&P was completed. ASA Class: ASA Class:: Patient with mild systemic disease Examination indicates no changes. AIRWAY: Airway Visualization of Uvula: Yes Mouth opening greater than 2 fingerbreadths: Yes Neck Full Range of Motion: Yes LUNGS: Lungs clear to auscultation CARDIAC: Regular rhythm,Regular rate Provisional Diagnosis/Treatment Plan: colonoscopy, possible biopsies SEDATION GOAL: Moderate This H&P can be found in the Electronic Medical Record . SIGNATURE: Nuha Saab MD PATIENT NAME: Tania Romero DATE: May 04, 2022 TIME: 7:26 AM Source Note - Nuha Saab MD - 05/04/2022 7:30 AM EDT HISTORY AND PHYSICAL Tania Romero 1940 REFERRING PHYSICIAN: Bg Chavarria MD CHIEF COMPLAINT: Consult (colonoscopy) HPI: The patient is a 81 year old female presents with rectal bleeding. This has been intermittent, for the past few years. She denies abdominal pain. She does complain of abdominal bloating Her father was diagnosed with colon cancer in his 80s and from it. She notes a bowel movement every day, but states that it is like rabbit pellets. She denies previous history of colon polyps. She last had a colonoscopy in 2016, but states that her colon cleansing preparation was suboptimal.She hasn't had a colonoscopic evaluation since. PAST MEDICAL HISTORY Diagnosis Date DJD (degenerative joint disease) of hip Left--Dr. Vasquez (worse from 2011 to 2012) Low vitamin B12 level Multiple sclerosis ([facility]) 05/31/2016 Osteopenia Type 2 diabetes mellitus, without long-term current use of insulin ([facility]) 01/24/2021 PAST SURGICAL HISTORY Procedure Laterality Date CATARACT EXTRACTION HX Right 04/25/2015 Cataract surgery DELIVERY ONLY , low cervical COLONOSCOPY FLX DX W/COLLJ SPEC WHEN PFRMD 07/31/2000 Colonoscopy COLONOSCOPY FLX DX W/COLLJ SPEC WHEN PFRMD 09/18/2006 COLONOSCOPY FLX DX W/COLLJ SPEC WHEN PFRMD 07/01/2012 Colonoscopy COLONOSCOPY FLX DX W/COLLJ SPEC WHEN PFRMD 04/30/2017 Colonoscopy LIG/TRNSXJ FLP TUBE ABDL/VAG APPR UNI/BI Tubal ligation PAST SURGICAL HISTORY OF 12/31/2002 lap left ing hernia PAST SURGICAL HISTORY OF 10/03/2012 bunionectomy (Dr. Araya) TONSILLECTOMY PRIMARY/SECONDARY <AGE 12 Tonsillectomy TOTAL HIP REPLACEMENT Left 02/01/2021 Current Outpatient Medications Medication Sig metFORMIN ER (GLUCOPHAGE XR) 500 mg 24 hr tablet Take 1 tablet by mouth daily with breakfast. psyllium husk (METAMUCIL ORAL) Take by mouth. Lactobacillus acidophilus (PROBIOTIC ORAL) Take by mouth. alendronate (FOSAMAX) 70 mg tablet Take 1 tablet by mouth one time a week. Take with a full glass of water, on an empty stomach; do NOT lie down for 30minutes. azithromycin (ZITHROMAX) 250 mg tablet Take two tablets one hour before dental procedures. meloxicam (MOBIC) 7.5 mg tablet Take 1 tablet by mouth twice daily. cyanocobalamin 1,000 mcg/mL USE ONE ML INTO THE MUSCLE ONCE MONTHLY calcium carbonate (TUMS ORAL) Take by mouth as needed. Insulin Syringe-Needle U-100 (BD INSULIN SYRINGE) 1 mL 25 x 1 syrg Use for b12 injection monthly Cholecalciferol, Vitamin D3, 125 mcg (5,000 unit) cap Take 1 capsule by mouth once daily. Lactase (LACTAID FAST ACT) 9,000 unit chew Uses as needed conjugated estrogens (PREMARIN) vaginal cream Use 0.5 g vaginally as needed. for 3 weeks then off for 1 week peg 3350-Electrolytes (GOLYTELY) 236-22.74-6.74 -5.86 gram suspension Refer to printed prep instructions from your provider. ALLERGIES: Amoxicillin, Clindamycin, Compazine [Prochlorperazine Edisylate], and Penicillins PERSONAL HISTORY: Social History Tobacco Use Smoking status: Former Smoker Smokeless tobacco: Never Used Vaping Use Vaping Use: Never used Substance Use Topics Alcohol use: Yes Comment: GLASS OF WINE DAILY Drug use: No FAMILY HISTORY Problem Relation Age of Onset Cancer Father COLON Osteoporosis Mother other (low thyroid) Mother The review of systems data was entered by the nurse and reviewed by ca Nursing Notes: Janay Bhagat RN 03/05/2022 1:21 PM Signed REVIEW OF SYSTEMS: General: The patient denies fatigue, denies weight loss, denies weight gain, denies feeling hot, and denies feelings of cold. Eyes: The patient denies glaucoma, NOTES eye injury/surgery, wears glasses or contacts. Ear/Nose/Throat: The patient denies allergies, denies hayfever, denies ear infections, and denies bloody noses. Cardiovascular: The patient denies chest pain, denies heart disease, denies high blood pressure,denies cardiac stent, denies prior heart attack, denies irregular heart beat, denies high cholesterol, denies poor circulation, denies heart failure, other cardiac issues, denies claudication, denies cold feet, denies peripheral arterial stent. Respiratory: The patient denies tuberculosis, denies pneumonia, denies frequent cough, denies pulmonary embolism, denies shortness of breath, and denies coughing up blood. Gastrointestinal: The patient denies difficulty swallowing, NOTES acid reflux, denies ulcers, denies vomiting, denies jaundice/hepatitis, denies gallbladder problems, denies black or tarry stools, denies hemorrhoids, denies bleeding from rectum, denies diverticulitis, NOTES constipation, denies diarrhea, denies loss of stool control, and NOTES hernias. Kidney/Bladder: The patient NOTES kidney stones, denies urine infections, and denies bloody urine. Skin: The patient a history of skin cancer, denies bleeding/changing moles, and denies a history of skin rash. Neurologic: The patient denies a history of epilepsy/convulsions, denies headaches, denies head/spinal injuries, and denies stroke/TIA. Psychiatric: The patient denies psychiatric medications, denies depression, and denies voices, denies substance abuse. Endocrine: The patient denies thyroid disorders, NOTES diabetes, and denies hormonal problems. Hematologic: The patient denies a history of bruising, denies bleeding, and denies anemia, denies blood clots. Infections: The patient denies a history of measles and mumps, denies rheumatic fever, and denies sexually transmitted diseases. Musculoskeletal: The patient NOTES back pain/injury, NOTES back problems, denies sciatica, NOTES knee/foot trouble, NOTES arthritis, or denies gout. When was patient's last Mammogram screening? 2019 Last Colonoscopy: 2017 Janay Bhagat RN PHYSICAL EXAMINATION: General: The patient is 81 year old female, well nourished, well hydrated in no acute distress. Thepatient is oriented to time, place, and person. VITALS: Blood pressure 128/70, pulse 74, temperature 36.8 C (98.3 F), height 149.9 cm (4' 11), weight 50.3 kg (111 lb), SpO2 96 %. Body mass index is 22.42 kg/m . Head: Normal cephalic, atraumatic Eyes: pupils are equally round, sclera are clear/anicteric, wearing glasses Neck is supple with no tracheal deviation Respiratory: Normal respiratory excursion and pattern. Abdominal exam: benign Extremities: no clubbing, cyanosis or edema. Neuro: non focal Psych: normal mood Assessment IMPRESSION: rectal bleeding PLAN: I have discussed the above with the patient. I have offered colonoscopy, possible biopsies for evaluation I have explained the procedure to the patient. I have counseled the patient as to the risks of the procedure, including but not limited to: infection, bleeding, perforation of the GI tract, injury to any intraabdominal organs such as the liver/spleen, inability to complete the procedure, complications of anesthesia, etc. - the patient understands. I have explained to the patient the difference between IV conscious sedation and MAC anesthesia - and I have offered either, according to the patient's wishes. I have explained that with IV conscioussedation there is no anesthesia provider available and therefore there is a limitation of the amount of IV medications that can be given and that the patient may wake up in the middle of the procedure and/or experience pain/discomfort during the procedure. Further discussion was done and the patient was given the opportunity to ask questions and all questions were answered. The patient chooses IVconscious sedation. Patient was counseled that if there are changes in his/her medical condition, to let the office know if surgery should proceed. If there are changes in patient's medical condition from time of this encounter to the day of the procedure that preclude anesthesia, patient may have procedure cancelled for patient's safety. The patient wishes to proceed. * Nuha Saab MD - 05/04/2022 7:30 AM EDT HISTORY AND PHYSICAL Tania Romero 1940 REFERRING PHYSICIAN: Bg Chavarria MD CHIEF COMPLAINT: Consult (colonoscopy) HPI: The patient is a 81 year old female presents with rectal bleeding. This has been intermittent, for the past few years. She denies abdominal pain. She does complain of abdominal bloating Her father was diagnosed with colon cancer in his 80s and from it. She notes a bowel movement every day, but states that it is like rabbit pellets. She denies previous history of colon polyps. She last had a colonoscopy in 2017, but states that her colon cleansing preparation was suboptimal.She hasn't had a colonoscopic evaluation since. PAST MEDICAL HISTORY Diagnosis Date DJD (degenerative joint disease) of hip Left--Dr. Vasquez (worse from 2011 to 2012) Low vitamin B12 level Multiple sclerosis (HCC) 05/31/2016 Osteopenia Type 2 diabetes mellitus, without long-term current use of insulin ([facility]) 01/24/2021 PAST SURGICAL HISTORY Procedure Laterality Date CATARACT EXTRACTION HX Right 04/25/2015 Cataract surgery DELIVERY ONLY , low cervical COLONOSCOPY FLX DX W/COLLJ SPEC WHEN PFRMD 07/31/2000 Colonoscopy COLONOSCOPY FLX DX W/COLLJ SPEC WHEN PFRMD 09/18/2006 COLONOSCOPY FLX DX W/COLLJ SPEC WHEN PFRMD 07/01/2012 Colonoscopy COLONOSCOPY FLX DX W/COLLJ SPEC WHEN PFRMD 04/30/2017 Colonoscopy LIG/TRNSXJ FLP TUBE ABDL/VAG APPR UNI/BI Tubal ligation PAST SURGICAL HISTORY OF 12/31/2002 lap left ing hernia PAST SURGICAL HISTORY OF 10/03/2012 bunionectomy (Dr. Araya) TONSILLECTOMY PRIMARY/SECONDARY <AGE 13 Tonsillectomy TOTAL HIP REPLACEMENT Left 02/01/2021 Current Outpatient Medications Medication Sig metFORMIN ER (GLUCOPHAGE XR) 500 mg 24 hr tablet Take 1 tablet by mouth daily with breakfast. psyllium husk (METAMUCIL ORAL) Take by mouth. Lactobacillus acidophilus (PROBIOTIC ORAL) Take by mouth. alendronate (FOSAMAX) 70 mg tablet Take 1 tablet by mouth one time a week. Take with a full glass of water, on an empty stomach; do NOT lie down for 30minutes. azithromycin (ZITHROMAX) 250 mg tablet Take two tablets one hour before dental procedures. meloxicam (MOBIC) 7.5 mg tablet Take 1 tablet by mouth twice daily. cyanocobalamin 1,000 mcg/mL USE ONE ML INTO THE MUSCLE ONCE MONTHLY calcium carbonate (TUMS ORAL) Take by mouth as needed. Insulin Syringe-Needle U-100 (BD INSULIN SYRINGE) 1 mL 25 x 1 syrg Use for b12 injection monthly Cholecalciferol, Vitamin D3, 125 mcg (5,000 unit) cap Take 1 capsule by mouth once daily. Lactase (LACTAID FAST ACT) 9,000 unit chew Uses as needed conjugated estrogens (PREMARIN) vaginal cream Use 0.5 g vaginally as needed. for 3 weeks then off for 1 week peg 3350-Electrolytes (GOLYTELY) 236-22.74-6.74 -5.86 gram suspension Refer to printed prep instructions from your provider. ALLERGIES: Amoxicillin, Clindamycin, Compazine [Prochlorperazine Edisylate], and Penicillins PERSONAL HISTORY: Social History Tobacco Use Smoking status: Former Smoker Smokeless tobacco: Never Used Vaping Use Vaping Use: Never used Substance Use Topics Alcohol use: Yes Comment: GLASS OF WINE DAILY Drug use: No FAMILY HISTORY Problem Relation Age of Onset Cancer Father COLON Osteoporosis Mother other (low thyroid) Mother The review of systems data was entered by the nurse and reviewed by ca Nursing Notes: Janay Bhagat RN 03/05/2022 1:21 PM Signed REVIEW OF SYSTEMS: General: The patient denies fatigue, denies weight loss, denies weight gain, denies feeling hot, and denies feelings of cold. Eyes: The patient denies glaucoma, NOTES eye injury/surgery, wears glasses or contacts. Ear/Nose/Throat: The patient denies allergies, denies hayfever, denies ear infections, and denies bloody noses. Cardiovascular: The patient denies chest pain, denies heart disease, denies high blood pressure,denies cardiac stent, denies prior heart attack, denies irregular heart beat, denies high cholesterol, denies poor circulation, denies heart failure, other cardiac issues, denies claudication, denies cold feet, denies peripheral arterial stent. Respiratory: The patient denies tuberculosis, denies pneumonia, denies frequent cough, denies pulmonary embolism, denies shortness of breath, and denies coughing up blood. Gastrointestinal: The patient denies difficulty swallowing, NOTES acid reflux, denies ulcers, denies vomiting, denies jaundice/hepatitis, denies gallbladder problems, denies black or tarry stools, denies hemorrhoids, denies bleeding from rectum, denies diverticulitis, NOTES constipation, denies diarrhea, denies loss of stool control, and NOTES hernias. Kidney/Bladder: The patient NOTES kidney stones, denies urine infections, and denies bloody urine. Skin: The patient a history of skin cancer, denies bleeding/changing moles, and denies a history of skin rash. Neurologic: The patient denies a history of epilepsy/convulsions, denies headaches, denies head/spinal injuries, and denies stroke/TIA. Psychiatric: The patient denies psychiatric medications, denies depression, and denies voices, denies substance abuse. Endocrine: The patient denies thyroid disorders, NOTES diabetes, and denies hormonal problems. Hematologic: The patient denies a history of bruising, denies bleeding, and denies anemia, denies blood clots. Infections: The patient denies a history of measles and mumps, denies rheumatic fever, and denies sexually transmitted diseases. Musculoskeletal: The patient NOTES back pain/injury, NOTES back problems, denies sciatica, NOTES knee/foot trouble, NOTES arthritis, or denies gout. When was patient's last Mammogram screening? 2019 Last Colonoscopy: 2016 Janay Bhagat RN PHYSICAL EXAMINATION: General: The patient is 81 year old female, well nourished, well hydrated in no acute distress. Thepatient is oriented to time, place, and person. VITALS: Blood pressure 128/70, pulse 74, temperature 36.8 C (98.3 F), height 149.9 cm (4' 11), weight 50.3 kg (111 lb), SpO2 96 %. Body mass index is 22.42 kg/m . Head: Normal cephalic, atraumatic Eyes: pupils are equally round, sclera are clear/anicteric, wearing glasses Neck is supple with no tracheal deviation Respiratory: Normal respiratory excursion and pattern. Abdominal exam: benign Extremities: no clubbing, cyanosis or edema. Neuro: non focal Psych: normal mood Assessment IMPRESSION: rectal bleeding PLAN: I have discussed the above with the patient. I have offered colonoscopy, possible biopsies for evaluation I have explained the procedure to the patient. I have counseled the patient as to the risks of the procedure, including but not limited to: infection, bleeding, perforation of the GI tract, injury to any intraabdominal organs such as the liver/spleen, inability to complete the procedure, complications of anesthesia, etc. - the patient understands. I have explained to the patient the difference between IV conscious sedation and MAC anesthesia - and I have offered either, according to the patient's wishes. I have explained that with IV conscioussedation there is no anesthesia provider available and therefore there is a limitation of the amount of IV medications that can be given and that the patient may wake up in the middle of the procedure and/or experience pain/discomfort during the procedure. Further discussion was done and the patient was given the opportunity to ask questions and all questions were answered. The patient chooses IVconscious sedation. Patient was counseled that if there are changes in his/her medical condition, to let the office know if surgery should proceed. If there are changes in patient's medical condition from time of this encounter to the day of the procedure that preclude anesthesia, patient may have procedure cancelled for patient's safety. The patient wishes to proceed. documented [facility] Miscellaneous Notes* Telephone Encounter - Beata Rod LPN - 04/30/2022 10:11 AM EDT Patient has been identified by name and date of : Yes Pharmacy sent electronic for refill(s): Pending Prescriptions Disp Refills CYANOCOBALAMIN (VIT B-12) 1,000 MCG/ML INJECTION SOLUTION 3 mL 3 Sig: USE ONE ML INTO THE MUSCLE ONCE MONTHLY CHRIS: No Date of last office visit in primary care: 02/27/22 Next appt with pcp 06/29/22. Please advise. Thank you. Beata Rod LPN documented in this encounterAs[facility]06-16-[facility]22 Instructions* Patient Instructions* Angus Silveira MD - 03/15/2022 11:57 AM EDT FACT SHEET FOR PATIENTS, PARENTS, AND CAREGIVERS EMERGENCY USE AUTHORIZATION (EUA) OF PAXLOVID FOR CORONAVIRUS DISEASE 2019 (COVID-19) You are being given this Fact Sheet because your healthcare provider believes it is necessary to provide you with PAXLOVID for the treatment of dvmc-zj-rrhnlnfe coronavirus disease (COVID-19) caused by the SARS-CoV-2 virus. This Fact Sheet contains information to help you understand the risks and benefits of taking the PAXLOVID you have received or may receive. The [place] Food and Drug Administration (FDA) has issued an Emergency Use Authorization (EUA) to makePAXLOVID available during the COVID-19 pandemic (for more details about an EUA please see What is an Emergency Use Authorization? at the end of this document). PAXLOVID is not an FDA-approved medicine in the [place]. Read this Fact Sheet for information about PAXLOVID. Talk to your healthcareprovider about your options or if you have any questions. It is your choice to take PAXLOVID. What is COVID-19? COVID-19 is caused by a virus called a coronavirus. You can get COVID-19 through close contact withanother person who has the virus. COVID-19 illnesses have ranged from very xnuc-nx-osoavq, including illness resulting in . While information so far suggests that most COVID-19 illness is mild, serious illness can happen and maycause some of your other medical conditions to become worse. Older people and people of all ages with severe, long lasting (chronic) medical conditions like heart disease, lung disease, and diabetes,for example seem to be at higher risk of being hospitalized for COVID-19. What is PAXLOVID? PAXLOVID is an investigational medicine used to treat irdj-sg-edwzmtnw COVID-19 in adults and children [12 years of age and older weighing at least 88 pounds (40 kg)] with positive results of direct SARS-CoV-2 viral testing, and who are at high risk for progression to severe COVID-19, including hospitalization or . PAXLOVID is investigational because it is still being studied. There is limited information about the safety and effectiveness of using PAXLOVID to treat people with xwmr-lc-wvsovcvt COVID-19. The FDA has authorized the emergency use of PAXLOVID for the treatment of glbu-ss-cbjetyde COVID-19in adults and children [12 years of age and older weighing at least 88 pounds (40 kg)] with a positive test for the virus that causes COVID-19, and who are at high risk for progression to severe COVID-19, including hospitalization or , under an EUA. 1 Revised: 15 December 2021 What should I tell my healthcare provider before I take PAXLOVID? Tell your healthcare provider if you: Have any allergies Have liver or kidney disease Are or plan to become Are a child Have any serious illnesses Tell your healthcare provider about all the medicines you take, including prescription and afzh-nmf-quszywp medicines, vitamins, and herbal supplements. Some medicines may interact with PAXLOVID and may cause serious side effects. Keep a list of your medicines to show your healthcare provider and pharmacist when you get a new medicine. You can ask your healthcare provider or pharmacist for a list of medicines that interact with PAXLOVID. Do not start taking a new medicine without telling your healthcare provider. Your healthcare provider can tell you if it is safe to take PAXLOVID with other medicines. Tell your healthcare provider if you are taking combined hormonal contraceptive. PAXLOVID may affect how your control pills work. Females who are able to become should use another effective alternative form of contraception or an additional barrier method of contraception. Talk to your healthcare provider if you have any questions about contraceptive methods thatmight be right for you. How do I take PAXLOVID? PAXLOVID consists of 2 medicines: nirmatrelvir and ritonavir. Take 2 pink tablets of nirmatrelvir with 1 white tablet of ritonavir by mouth 2 times each day (in the morning and in the evening) for 5 days. For each dose, take all 3 tablets at the same time. If you have kidney disease, talk to your healthcare provider. You may need a different dose. Swallow the tablets whole. Do not chew, break, or crush the tablets. Take PAXLOVID with or without food. Do not stop taking PAXLOVID without talking to your healthcare provider, even if you feel better. If you miss a dose of PAXLOVID within 8 hours of the time it is usually taken, take it as soon as you remember. If you miss a dose by more than 8 hours, skip the missed dose and take the next dose atyour regular time. Do not take 2 doses of PAXLOVID at the same time. If you take too much PAXLOVID, call your healthcare provider or go to the nearest hospital emergency room right away. If you are taking a ritonavir-or cobicistat-containing medicine to treat hepatitis C or Human Immunodeficiency Virus (HIV), you should continue to take your medicine as prescribed by your healthcare provider. Talk to your healthcare provider if you do not feel better or if you feel worse after 5 days. Who should generally not take PAXLOVID? Do not take PAXLOVID if: You are allergic to nirmatrelvir, ritonavir, or any of the ingredients in PAXLOVID You are taking any of the following medicines: Alfuzosin Pethidine, propoxyphene Ranolazine Amiodarone, dronedarone, flecainide, propafenone, quinidine Colchicine Lurasidone, pimozide, clozapine Dihydroergotamine, ergotamine, methylergonovine Lovastatin, simvastatin Sildenafil (Revatio ) for pulmonary arterial hypertension (PAH) Triazolam, oral midazolam Apalutamide Carbamazepine, phenobarbital, phenytoin Rifampin Murtaza s Wort (hypericum perforatum) Taking PAXLOVID with these medicines may cause serious or life-threatening side effects or affect how PAXLOVID works. These are not the only medicines that may cause serious side effects if taken with PAXLOVID. PAXLOVID may increase or decrease the levels of multiple other medicines. It is very important to tell your healthcare provider about all of the medicines you are taking because additional laboratory tests or changes in the dose of your other medicines may be necessary while you are taking PAXLOVID. Your healthcare provider may also tell you about specific symptoms to watch out for that may indicate that you need to stop or decrease the dose of some of your other medicines. What are the important possible side effects of PAXLOVID? Possible side effects of PAXLOVID are: Allergic Reactions. Allergic reactions can happen in people taking PAXLOVID, even after only 1 dose. Stop taking PAXLOVID and call your healthcare provider right away if you get any of the following symptoms of an allergic reaction: hives trouble swallowing or breathing swelling of the mouth, lips, or face throat tightness hoarseness skin rash Liver Problems. Tell your healthcare provider right away if you have any of these signs and symptoms of liver problems: loss of appetite, yellowing of your skin and the whites of eyes (jaundice), dark-colored urine, pale colored stools and itchy skin, stomach area (abdominal) pain. Resistance to HIV Medicines. If you have untreated HIV infection, PAXLOVID may lead to some HIV medicines not working as well in the future. Other possible side effects include: altered sense of taste diarrhea high blood pressure muscle aches These are not all the possible side effects of PAXLOVID. Not many people have taken PAXLOVID. Serious and unexpected side effects may happen. PAXLOVID is still being studied, so it is possible that all of the risks are not known at this time. What other treatment choices are there? Veklury (remdesivir) is FDA-approved for the treatment of cayr-pj-fbxgarqf COVID-19 in certain adults and children. Talk with your doctor to see if Veklury is appropriate for you. Like PAXLOVID, FDA may also allow for the emergency use of other medicines to treat people with COVID-19. Go to https://www.fda.gov/ncfosslgp-hnfkdqflllkl-qcflubgfsre/tjc-pmsof-dqpftcamqw-and- policy-framework/okbwkxefv-raq-rqzsvxmtuagmy for information on the emergency use of other medicines that are authorized by FDA to treat people with COVID-19. Your healthcare provider may talk with you aboutclinical trials for which you may be eligible. It is your choice to be treated or not to be treated with PAXLOVID. Should you decide not to receive it or for your child not to receive it, it will not change your standard medical care. What if I am or ? There is generation engineering technologist treating women or mothers with PAXLOVID. For a motherand unborn baby, the benefit of taking PAXLOVID may be greater than the risk from the treatment. Ifyou are , discuss your options and specific situation with your healthcare provider. It is recommended that you use effective barrier contraception or do not have sexual activity whiletaking PAXLOVID. If you are , discuss your options and specific situation with your healthcare provider. How do I report side effects with PAXLOVID? Contact your healthcare provider if you have any side effects that bother you or do not go away. Report side effects to FDA MedWatch at www.fda.gov/medwatch or call 1-282-QXO3029 or you can reportside effects to [employer]. at the contact information provided below. Website Fax number Telephone number [employer] How should I store PAXLOVID? Store PAXLOVID tablets at room temperature, between 68?F to 77?F (20?C to 25?C). How can I learn more about COVID-19? Ask your healthcare provider. Visit https://www.cdc.gov/COVID19. Contact your local or state public health department. What is an Emergency Use Authorization (EUA)? The [place] FDA has made PAXLOVID available under an emergency access mechanism called an Emergency Use Authorization (EUA). The EUA is supported by a Stenciler of Health and Human Service (HHS) declaration that circumstances exist to justify the emergency use of drugs and biological productsduring the COVID-19 pandemic. PAXLOVID for the treatment of oboh-ys-autsfzsm COVID-19 in adults and children [12 years of age andolder weighing at least 88 pounds (40 kg)] with positive results of direct SARS-CoV-2 viral testing, and who are at high risk for progression to severe COVID-19, including hospitalization or , has not undergone the same type of review as an FDA-approved product. In issuing an EUA under the COVID-19 public health emergency, the FDA has determined, among other things, that based on the total amount of scientific evidence available including data from adequate and well-controlled clinical trials, if available, it is reasonable to believe that the product may be effective for diagnosing, treating, or preventing COVID-19, or a serious or life-threatening disease or condition caused by COVID-19; that the known and potential benefits of the product, when used to diagnose, treat, or prevent such disease or condition, outweigh the known and potential risks of such product; and that there are no adequate, approved, and available alternatives. All of these criteria must be met to allow for the product to be used in the treatment of patients during the COVID-19 pandemic. The EUA for PAXLOVID is in effect for the duration of the COVID-19 declaration justifying emergency use of this product, unless terminated or revoked (after which the products may no longer be used under the EUA). Additional Information For general questions, visit the website or call the telephone number provided below. Website Telephone number [email or web address] ([phone]) You can also go to [email or web address] or call for more information. Pfizer Distributed by [employer] [address] [id number] Revised: 15 December 2021 documented in this encounterAshtabula [facility]06-16-2022 History of Present illness Narrative* Angus Silveira MD - 03/15/2022 11:43 AM EDT Telemedicine Evaluation for COVID-19 Infection MyChart video visit was used for evaluation of this patient. Location of patient: [facility] Tania Romero is a 81 year old female who presents with 5 days of symptoms that are improving. Symptoms include: Fever (?100.4F): Yes or Chills: Yes Cough: Yes Shortness of breath: No or Difficulty breathing: No Fatigue: Yes Muscle aches: No Headache: No New loss of smell or taste: No Sore throat: Yes Nasal congestion: Yes or Rhinorrhea: Yes Nausea: No or Vomiting: No Diarrhea: No OTC meds/remedies that patient has tried: none.. High risk category assessment Age > 60 years old Diabetes Exposures: Sick contacts? No Family or close contacts with confirmed/probable COVID-19 in last 14 days? No She reports that she has quit smoking. She has never used smokeless tobacco. OBJECTIVE VIDEO EXAM (if available) None. GENERAL: well appearing, alert, in no acute distress HEENT: no conjunctival injection, pupils equal, moist mucous membranes, oropharynx clear without erythema, sinuses non-tender to self-palpation and no cervical adenopathy by self-palpation PULMONARY: breathing comfortably on room air , coughing and no wheezing noted ASSESSMENT/PLAN No diagnosis found. Nirmatrelvir/Ritonavir (Paxlovid) Eligibility and Patient Discussion [facility] Formulary Restriction Criteria: Adult outpatients 18 years and older with ALL of the following: [x] Patient has positive SARS-COV-2 viral test (PCR or antigen test) during current illness [x] Patient has symptoms for 5 days or less [x] Not requiring hospitalization at any time for management of COVID-19 [x] Not requiring supplemental oxygen or a change in baseline supplemental oxygen[] Not utilized for pre-exposure or post-exposure prophylaxis for prevention of COVID-19 [] Patient does not have severe renal impairment (eGFR < 30 mL/min) or severe hepatic impairment(Child-Manning Class C) [] Meeting patient criteria as below: [x] Older age (age >/= 65 years) OR [] 18 years and older with at least one of the following: [] Obesity or being overweight (BMI > 30) [] [] Chronic kidney diseases with eGFR > 30 mL/min and not requiring dialysis [x] Diabetes [] Cardiovascular disease including hypertension [] COPD/other chronic respiratory disease [] Sickle cell disease [] Neurodevelopmental disorder (e.g. cerebral palsy) or other conditions that confer medical complexity (e.g. genetic or metabolic syndromes and severe congenital abnormalities) [] Medical related technological dependence (e.g. tracheostomy, gastrostomy, or positive pressure ventilation (not related to COVID-19)) OR [] 18 years and older with immunosuppressive disease or immunosuppressive therapy defined as: [] Immune-mediated inflammatory disease (rheumatoid arthritis, psoriatic arthritis, ankylosing spondylitis, psoriasis, systemic lupus erythematous, idiopathic inflammatory myositis, systemic sclerosis, primary systemic vasculitis, Sjogren s syndrome, inflammatory bowel disease) AND receiving at least one of the following: [] Prednisone (equivalent of > 10 mg daily at time of infusion) [] Rituximab [] 5-ASA derivatives (e.g., sulfasalazine, mesalamine) [] Solid Organ Transplant recipients [] Post-transplant AND on immunosuppression [] Cancer center patients AND at least one of the following: [] On treatment with anti-B cell monoclonal antibodies (e.g., Rituximab, Obinutuzumab, Ofatumumab) [] On treatment with high-intensity chemotherapy regimen [] Myeloablative hematopoietic stem cell transplant recipients within 6 months of transplant or on systemic therapy for ruejl-zpwdmu-ylub disease [] CAR T-cell/other cellular therapy recipients within 6 months of infusion [] Hypogammaglobulinemia due to cancer/hematologic disease or its treatment [] Primary immunodeficiency disorder (including common variable immuno immunodeficiency disorder and selective antibody deficiency disorder) Criteria above are met: Yes Date of Positive Test: 03/13/22 Date of Symptom Onset: 03/11/22 Patient received COVID vaccine: Yes Drug-Drug interactions reviewed: Yes. No drug interactions were identified. I have discussed the use of the investigational therapeutic, nirmatrelvir/ritonavir, for the treatment of mild to moderate COVID-19 and its use under Emergency Use Authorization with the patient. The patient was informed that nirmatrelvir/ritonavir is not an FDA approved drug and that it is authorized for use under this Emergency Use Authorization. The patient was also informed of the significant known benefits and potential risks of nirmatrelvir/ritonavir, and the extent to which such potential risks and benefits are unknown. The patient was informed that there is mandatory reporting of all medication errors and serious adverse events potentially related to nirmatrelvir/ritonavir treatment within 7 calendar days from the onset of the event and that events up to 28 days after completion of therapy need to be reported. The discussion included alternatives to receiving nirmatrelvir/rit onavir, including clinical trials, and potential the risks and benefits of those alternatives. The patient was provided electronically with the Fact Sheet for Patients, Parents and Caregivers. The patient was also instructed that in addition to the treatment with nirmatrelvir/ritonavir, he/she should continue to self-isolate and use infection control measures (e.g., wear mask, isolate, social distance, avoid sharing personal items, clean and disinfect high touch surfaces, and frequent h andwashing) according to CDC guidelines. The patient stated understanding and gave verbal consent to proceeding with nirmatrelvir/ritonavir treatment. Angus Silveira MD March 15, 2022 11:54 AM documented in this encounterAshtabula [facility] Hospital06-16-2022 Miscellaneous Notes* Telephone Encounter - Maricel Darling RN - 03/15/2022 10:08 AM EDT Patient calls and states that she did test positive with PCR test. Patient asking about antiviral. Set up virtual appointment with Dr. Silveira to discuss. Maricel Darling RN * Telephone Encounter - Karla Monge LPN - 03/14/2022 10:13 AM EDT Patient calling she is traveling in [place]. She did COVID home test yesterday was positive. Did a PCRtest at [facility] in [facility] yesterday afternoon about 330 pm, could get results tomorrow or Saturday. Patient said her symptoms began Saturday (03/10/2022) with scratchy throat, congestion, cough, sneezing. She is not taking anything for her symptoms. She and are at [facility] in [place]. Attached [facility] pharmacy that is close to them. Patient is asking about getting the antiviral medication rx? Her has no symptoms trying to stay away from her. Please advise documented in this encounterAshtabula [facility] Hospital06-07-2022 Miscellaneous Notes* Letter - Mammography Coordinator - 03/06/2022 1:47 PM EDT March 06, 2022 PID: [id number] Tania Romero [address] [place] [address] Dear Ms. Romero, We are pleased to inform you that the results of your recent breast imaging exam on 03/06/2022 are normal. Your mammogram demonstrates that you have dense breast tissue, which could hide abnormalities. Dense breast tissue, in and of itself, is a relatively common condition. Therefore, this information is not provided to cause undue concern; rather, it is to raise your awareness and promote discussion with your health care provider regarding the presence of dense breast tissue in addition to other riskfactors. Early detection of cancer is very important. We also understand recommendations regarding breast cancer screening are controversial. Please discuss with your primary care provider which strategy is best for you and whether a mammogram is right for you. Your imaging studies and report will be kept on file at [facility] as part of your permanent medical record and are available for your continuing care. Thank you for allowing us to help in meeting your health care needs. Sincerely, Dr. Munroe Interpreting Radiologist [facility] (Normal over 40) documented in this encounterAshtabula General Hospital06-07-2022 History of Present illness Narrative* Lm Holbrooko Tech - 03/06/2022 1:10 PM EDT Radiology Service Progress Note PATIENT NAME: Tania Romero DATE OF SERVICE: March 06, 2022 TIME: 1:29 PM PATIENT IDENTITY VERIFICATION COMPLETED USING TWO (2) IDENTIFIERS: Name and Date of confirmedby patient verbally. FALL SCREENING: Has the patient had 2 falls in the last year or 1 fall with injury or currently using an Ambulatory Assistive Device (Walker, Cane, Wheelchair, Crutches, etc.)? No PATIENT GENDER DATA: Female. status: : No status: NO. PATIENT RELEVANT IMPLANT DATA REVIEWED: Not Applicable RADIOLOGY DEPARTMENT: Mammography PERIPHERAL IV DATA: Not applicable SIGNED BY: Charo Holbrook March 06, 2022 1:29 PM documented in this encounterAshtabula General Hospital06-06-2022 History of Present illness Narrative* Nuha Saab MD - 03/05/2022 4:42 PM EDT HISTORY AND PHYSICAL Tania Romero 1940 REFERRING PHYSICIAN: Bg Chavarria MD CHIEF COMPLAINT: Consult (colonoscopy) HPI: The patient is a 81 year old female presents with rectal bleeding. This has been intermittent, for the past few years. She denies abdominal pain. She does complain of abdominal bloating Her father was diagnosed with colon cancer in his 80s and from it. She notes a bowel movement every day, but states that it is like rabbit pellets. She denies previous history of colon polyps. She last had a colonoscopy in 2017, but states that her colon cleansing preparation was suboptimal.She hasn't had a colonoscopic evaluation since. PAST MEDICAL HISTORY Diagnosis Date DJD (degenerative joint disease) of hip Left--Dr. Vasquez (worse from 2011 to 2012) Low vitamin B12 level Multiple sclerosis (HCC) 05/31/2016 Osteopenia Type 2 diabetes mellitus, without long-term current use of insulin (HCC) 01/24/2021 PAST SURGICAL HISTORY Procedure Laterality Date CATARACT EXTRACTION HX Right 04/25/2015 Cataract surgery DELIVERY ONLY , low cervical COLONOSCOPY FLX DX W/COLLJ SPEC WHEN PFRMD 07/31/2000 Colonoscopy COLONOSCOPY FLX DX W/COLLJ SPEC WHEN PFRMD 09/18/2006 COLONOSCOPY FLX DX W/COLLJ SPEC WHEN PFRMD 07/01/2012 Colonoscopy COLONOSCOPY FLX DX W/COLLJ SPEC WHEN PFRMD 04/30/2017 Colonoscopy LIG/TRNSXJ FLP TUBE ABDL/VAG APPR UNI/BI Tubal ligation PAST SURGICAL HISTORY OF 12/31/2002 lap left ing hernia PAST SURGICAL HISTORY OF 10/03/2012 bunionectomy (Dr. Araya) TONSILLECTOMY PRIMARY/SECONDARY <AGE 12 Tonsillectomy TOTAL HIP REPLACEMENT Left 02/01/2021 Current Outpatient Medications Medication Sig metFORMIN ER (GLUCOPHAGE XR) 500 mg 24 hr tablet Take 1 tablet by mouth daily with breakfast. psyllium husk (METAMUCIL ORAL) Take by mouth. Lactobacillus acidophilus (PROBIOTIC ORAL) Take by mouth. alendronate (FOSAMAX) 70 mg tablet Take 1 tablet by mouth one time a week. Take with a full glass of water, on an empty stomach; do NOT lie down for 30minutes. azithromycin (ZITHROMAX) 250 mg tablet Take two tablets one hour before dental procedures. meloxicam (MOBIC) 7.5 mg tablet Take 1 tablet by mouth twice daily. cyanocobalamin 1,000 mcg/mL USE ONE ML INTO THE MUSCLE ONCE MONTHLY calcium carbonate (TUMS ORAL) Take by mouth as needed. Insulin Syringe-Needle U-100 (BD INSULIN SYRINGE) 1 mL 25 x 1 syrg Use for b12 injection monthly Cholecalciferol, Vitamin D3, 125 mcg (5,000 unit) cap Take 1 capsule by mouth once daily. Lactase (LACTAID FAST ACT) 9,000 unit chew Uses as needed conjugated estrogens (PREMARIN) vaginal cream Use 0.5 g vaginally as needed. for 3 weeks then off for 1 week peg 3350-Electrolytes (GOLYTELY) 236-22.74-6.74 -5.86 gram suspension Refer to printed prep instructions from your provider. ALLERGIES: Amoxicillin, Clindamycin, Compazine [Prochlorperazine Edisylate], and Penicillins PERSONAL HISTORY: Social History Tobacco Use Smoking status: Former Smoker Smokeless tobacco: Never Used Vaping Use Vaping Use: Never used Substance Use Topics Alcohol use: Yes Comment: GLASS OF WINE DAILY Drug use: No FAMILY HISTORY Problem Relation Age of Onset Cancer Father COLON Osteoporosis Mother other (low thyroid) Mother The review of systems data was entered by the nurse and reviewed by me Nursing Notes: Janay Bhagat RN 03/05/2022 1:21 PM Signed REVIEW OF SYSTEMS: General: The patient denies fatigue, denies weight loss, denies weight gain, denies feeling hot, and denies feelings of cold. Eyes: The patient denies glaucoma, NOTES eye injury/surgery, wears glasses or contacts. Ear/Nose/Throat: The patient denies allergies, denies hayfever, denies ear infections, and denies bloody noses. Cardiovascular: The patient denies chest pain, denies heart disease, denies high blood pressure,denies cardiac stent, denies prior heart attack, denies irregular heart beat, denies high cholesterol, denies poor circulation, denies heart failure, other cardiac issues, denies claudication, denies cold feet, denies peripheral arterial stent. Respiratory: The patient denies tuberculosis, denies pneumonia, denies frequent cough, denies pulmonary embolism, denies shortness of breath, and denies coughing up blood. Gastrointestinal: The patient denies difficulty swallowing, NOTES acid reflux, denies ulcers, denies vomiting, denies jaundice/hepatitis, denies gallbladder problems, denies black or tarry stools, denies hemorrhoids, denies bleeding from rectum, denies diverticulitis, NOTES constipation, denies diarrhea, denies loss of stool control, and NOTES hernias. Kidney/Bladder: The patient NOTES kidney stones, denies urine infections, and denies bloody urine. Skin: The patient a history of skin cancer, denies bleeding/changing moles, and denies a history of skin rash. Neurologic: The patient denies a history of epilepsy/convulsions, denies headaches, denies head/spinal injuries, and denies stroke/TIA. Psychiatric: The patient denies psychiatric medications, denies depression, and denies voices, denies substance abuse. Endocrine: The patient denies thyroid disorders, NOTES diabetes, and denies hormonal problems. Hematologic: The patient denies a history of bruising, denies bleeding, and denies anemia, denies blood clots. Infections: The patient denies a history of measles and mumps, denies rheumatic fever, and denies sexually transmitted diseases. Musculoskeletal: The patient NOTES back pain/injury, NOTES back problems, denies sciatica, NOTES knee/foot trouble, NOTES arthritis, or denies gout. When was patient's last Mammogram screening? 2019 Last Colonoscopy: 2016 Janay Bhagat RN PHYSICAL EXAMINATION: General: The patient is 81 year old female, well nourished, well hydrated in no acute distress. Thepatient is oriented to time, place, and person. VITALS: Blood pressure 128/70, pulse 74, temperature 36.8 C (98.3 F), height 149.9 cm (4' 11), weight 50.3 kg (111 lb), SpO2 96 %. Body mass index is 22.42 kg/m . Head: Normal cephalic, atraumatic Eyes: pupils are equally round, sclera are clear/anicteric, wearing glasses Neck is supple with no tracheal deviation Respiratory: Normal respiratory excursion and pattern. Abdominal exam: benign Extremities: no clubbing, cyanosis or edema. Neuro: non focal Psych: normal mood Assessment IMPRESSION: rectal bleeding PLAN: I have discussed the above with the patient. I have offered colonoscopy, possible biopsies for evaluation I have explained the procedure to the patient. I have counseled the patient as to the risks of the procedure, including but not limited to: infection, bleeding, perforation of the GI tract, injury to any intraabdominal organs such as the liver/spleen, inability to complete the procedure, complications of anesthesia, etc. the patient understands. I have explained to the patient the difference between IV conscious sedation and MAC anesthesia - and I have offered either, according to the patient's wishes. I have explained that with IV conscioussedation there is no anesthesia provider available and therefore there is a limitation of the amount of IV medications that can be given and that the patient may wake up in the middle of the procedure and/or experience pain/discomfort during the procedure. Further discussion was done and the patient was given the opportunity to ask questions and all questions were answered. The patient chooses IVconscious sedation. Patient was counseled that if there are changes in his/her medical condition, to let the office know if surgery should proceed. If there are changes in patient's medical condition from time of this encounter to the day of the procedure that preclude anesthesia, patient may have procedure cancelled for patient's safety. The patient wishes to proceed. I have answered all questions to the patient s satisfaction and the patient has no further questions. I have confirmed and edited as necessary, the PFSH and ROS obtained by others. Consultation requested by Dr. Bg Chavarria for an opinion regarding patient's rectal bleeding. My final recommendations will be communicated back to the requesting physician by way of shared Medicalrecord or letter to requesting physician via US mail. . Diagnoses: (K62.5) Rectal bleeding (primary encounter diagnosis) (Z12.11) Colon cancer screening Return to Clinic: The patient is scheduled for colonoscopy, possible biopsies on May 04 (as per her wishes) at the [facility]. Medical Decision Making: Risk: Low: Low risk from testing/treatment Medical Decision Making Level: 2 - Straightforward Nuha Saab MD documented in this encounterAshtabula [facility] Hospital06-06-2022 Instructions* Patient Instructions* Nuha Saab MD - 03/05/2022 1:30 PM EDT Images from the original note were not included. Bowel Preparation Instructions for: Golytely, Nulytely, Trilyte or Colyte (polyethylene glycol 3350and electrolytes) IF YOU DO NOT FOLLOW THESE DIRECTIONS, YOUR COLONOSCOPY WILL BE CANCELLED. Maldonado Instructions: Your bowel must be empty so that your doctor can clearly view your colon. Follow all of the instructions in this handout EXACTLY as they are written. Do NOT eat any solid food the ENTIRE day before your colonoscopy. Drink only clear liquids. Buy your bowel preparation at least 5 days before your colonoscopy. TRANSPORTATION on the Day of Your Exam A responsible person MUST be present with you at Check In prior to your colonoscopy and REMAIN in the endoscopy area until you are discharged. You are NOT ALLOWED to drive, take a taxi or bus, or leave the Endoscopy Center ALONE. If you do not have a responsible lease purchase driver (family member or friend) with you to take you home, your exam cannot be done with sedation and will be cancelled. Please bring a list of all of your current medications, including any Over-the Counter medications with you. Medications If you take insulin, diabetic medications or blood thinners such as Coumadin (warfarin), Plavix (clopidogrel), Ticlid (ticlopidine hydrochloride), Agrylin (anagrelide), Xarelto (Rivaroxaban), Pradaxa(Dabigatran), Eliquis (Apixaban), and Effient (Prasugrel). You MUST call the doctors who orders those medicines for instructions on altering the dosage before your colonoscopy. All other medications should be taken the day of the exam with a sip of water including ASPIRIN. Five (5) Days Before Your Colonoscopy Do NOT take medicines that stop diarrhea - such as Imodium, Kaopectate, or Pepto Bismol. Do NOT take fiber supplements - such as Metamucil, Citrucel, or Perdiem. Do NOT take products that contain iron - such as multi-vitamins (the label lists what is in the products). Do NOT take Vitamin E. Buy the prescription bowel preparation solution at your local pharmacy or drugstore pharmacy. 08/2019 Bowel Preparation Instructions for: Golytely, Nulytely, Trilyte or Colyte (polyethylene glycol 3350and electrolytes) Three (3) Days Before Your Colonoscopy Do NOT eat high-fiber foods - such as popcorn, beans, seeds (flax, sunflower, quinoa), multigrain bread, nuts, salad/vegetables, or fresh and dried fruit. One (1) Day Before Your Colonoscopy Only drink clear liquids the ENTIRE DAY before your colonoscopy. Do NOT eat any solid foods. Drink at least 8 ounces of clear liquids every hour after waking up. The clear liquids you can drink include: Clear Liquid (NO RED LIQUIDS) DO NOT DRINK Gatorade, Pedialyte or Powerade Clear broth or bouillon Coffee or tea (no milk or non-dairy creamer) Carbonated and non-carbonated soft drinks Presley-Aid or other fruit flavored drinks Strained fruit juices (no pulp) Jell-O, popsicles, hard candy Water Alcohol Milk or non-dairy creamers Noodles or vegetables in soup Juice with pulp Liquid you cannot see through The bowel preparation solution will be consumed in two parts. Mix the solution the evening before your colonoscopy and refrigerate before drinking. You may add the flavor pack that came with the bowel preparation. Do NOT add ice, sugar or any other flavorings to the solution. Part 1 At 6:00 PM - Evening before your colonoscopy Drink an 8-oz glass of bowel preparation every 10 minutes for a total of 8 glasses. You may continue to drink clear liquids until midnight. Part 2 On the day of your colonoscopy you may drink clear liquids up to (three) 3 hours before your procedure. 4 1/2 hours before your colonoscopy Drink an 8-oz glass of bowel preparation every 10 minutes for a total of 8 glasses. Fifteen (15) minutes later, drink an 8-oz glass of clear liquids every 15 minutes for a total of 2 glasses. You may continue to drink clear liquids up to (three) 3 hours before your exam. 3 08/2019 documented in this encounterAshtabula [facility] Hospital06-06-2022 Nurse Note* Janay Bhagat RN - 03/05/2022 1:14 PM EDT REVIEW OF SYSTEMS: General: The patient denies fatigue, denies weight loss, denies weight gain, denies feeling hot, and denies feelings of cold. Eyes: The patient denies glaucoma, NOTES eye injury/surgery, wears glasses or contacts. Ear/Nose/Throat: The patient denies allergies, denies hayfever, denies ear infections, and denies bloody noses. Cardiovascular: The patient denies chest pain, denies heart disease, denies high blood pressure,denies cardiac stent, denies prior heart attack, denies irregular heart beat, denies high cholesterol, denies poor circulation, denies heart failure, other cardiac issues, denies claudication, denies cold feet, denies peripheral arterial stent. Respiratory: The patient denies tuberculosis, denies pneumonia, denies frequent cough, denies pulmonary embolism, denies shortness of breath, and denies coughing up blood. Gastrointestinal: The patient denies difficulty swallowing, NOTES acid reflux, denies ulcers, denies vomiting, denies jaundice/hepatitis, denies gallbladder problems, denies black or tarry stools, denies hemorrhoids, denies bleeding from rectum, denies diverticulitis, NOTES constipation, denies diarrhea, denies loss of stool control, and NOTES hernias. Kidney/Bladder: The patient NOTES kidney stones, denies urine infections, and denies bloody urine. Skin: The patient a history of skin cancer, denies bleeding/changing moles, and denies a history of skin rash. Neurologic: The patient denies a history of epilepsy/convulsions, denies headaches, denies head/spinal injuries, and denies stroke/TIA. Psychiatric: The patient denies psychiatric medications, denies depression, and denies voices, denies substance abuse. Endocrine: The patient denies thyroid disorders, NOTES diabetes, and denies hormonal problems. Hematologic: The patient denies a history of bruising, denies bleeding, and denies anemia, denies blood clots. Infections: The patient denies a history of measles and mumps, denies rheumatic fever, and denies sexually transmitted diseases. Musculoskeletal: The patient NOTES back pain/injury, NOTES back problems, denies sciatica, NOTES knee/foot trouble, NOTES arthritis, or denies gout. When was patient's last Mammogram screening? 2019 Last Colonoscopy: 2016 Janay Bhagat RN documented in this encounterAshtabula [facility]06-03-[facility]22 History and physical note * Anibal Lake MD - 03/02/2022 1:07 PM EDT HISTORY AND PHYSICAL EXAMINATION PATIENT NAME: Tania Romero DATE of SERVICE: 03/02/2022 Tania Romero is here for the pain mangement procedure. The patients presents with persistent pain complaints. Tania Romero denies any interval changes or new pain complaints or focal neurologicdeficits. PAST MEDICAL HISTORY Diagnosis Date DJD (degenerative joint disease) of hip Left--Dr. Vasquez (worse from 2011 to 2012) Low vitamin B12 level Multiple sclerosis (HCC) 05/31/2016 Osteopenia Type 2 diabetes mellitus, without long-term current use of insulin (HCC) 01/24/2021 PAST SURGICAL HISTORY Procedure Laterality Date CATARACT EXTRACTION HX Right 04/25/2015 Cataract surgery DELIVERY ONLY , low cervical COLONOSCOPY FLX DX W/COLLJ SPEC WHEN PFRMD 07/31/2000 Colonoscopy COLONOSCOPY FLX DX W/COLLJ SPEC WHEN PFRMD 09/18/2006 COLONOSCOPY FLX DX W/COLLJ SPEC WHEN PFRMD 07/01/2012 Colonoscopy COLONOSCOPY FLX DX W/COLLJ SPEC WHEN PFRMD 04/30/2017 Colonoscopy LIG/TRNSXJ FLP TUBE ABDL/VAG APPR UNI/BI Tubal ligation PAST SURGICAL HISTORY OF 12/31/2002 lap left ing hernia PAST SURGICAL HISTORY OF 10/03/2012 bunionectomy (Dr. Araya) TONSILLECTOMY PRIMARY/SECONDARY <AGE 13 Tonsillectomy TOTAL HIP REPLACEMENT Left 02/01/2021 Social History Tobacco Use Smoking status: Former Smoker Smokeless tobacco: Never Used Substance Use Topics Alcohol use: Yes Comment: GLASS OF WINE DAILY Drug use: No FAMILY HISTORY Problem Relation Age of Onset Cancer Father COLON Osteoporosis Mother other (low thyroid) Mother ALLERGIES Allergen Reactions Amoxicillin Rash Clindamycin Contraindication-Medical Surgical C diff Compazine [Prochlor* Intolerance Penicillins Rash, Intolerance Rash after 4 days of antibiotic . Current Facility-Administered Medications Medication Dose Route Frequency NaCl 0.9% iv infusion 30 mL/hr INTRAVENOUS CONTINUOUS Physical Exam: Performed in conjunction with observation. The patient is alert and oriented x3. The patient is in no acute distress. Neck: Supple. The range of motion is intact. Lungs: clear CVR: RRR. Extremities: no reported edema or erythema. Examination indicates no changes Impression: Lumbar spondylosis Plan: The informed consent has been obtained. The plan is to proceed with the procedure as planned. SIGNATURE: Anibal Lake MD DATE: March 02, 2022 TIME: 1:07 PM documented in this encounterAshtabula [facility]06-03-2022 Miscellaneous Notes* Operative Report - Anibal Lake MD - 03/02/2022 1:04 PM EDT PATIENT NAME: Tania Romero SERVICE DATE: 03/02/2022 PREOPERATIVE DIAGNOSIS(ES) Lumbar spondylosis without myelopathy Degeneration of lumbar intervertebral disc Lumbar facet arthropathy POSTOPERATIVE DIAGNOSIS(ES): same PROCEDURE: Left L3-4, L4-5 and L5-S1 Lumbar Facet Medial Branch Nerve Radiofrequency Ablation underfluoroscopy. ANESTHESIA: Conscious sedation with Versed 2mg, Fentanyl 50mcg. IV INDICATIONS: The patient had positive diagnostic facet medial branch nerve blocks. The pain overallhas improved by greater than 60% and the patient reports an increase in physical activity. The plan is Radiofrequency ablation of medial branch nerves at L3-4, L4-5 and L5-S1 on the left side. The risks and benefits of the procedure were discussed. Specifically, the risks of bleeding, infection, inadvertent dural puncture, spinal heaches, vasovagal reaction, epidural hematoma, partial or permanent nerve injury were covered. The potential side effects of medications used in procedures including increase in lumbar pain, headaches, facial redness or warmth (flushing), anxiety or mood swings, sleeplessness, fever, high blood sugar, brief reduction in immunity were discussed. The patient expressed understanding of potential risks and wishes to proceed with the procedure. DESCRIPTION OF PROCEDURE: The patient was brought to the OR fluoroscopy suite. The patient was placed in the prone position with pressure points protected. Continuous hemodynamic monitoring was initiated including blood pressure, EKG, and pulse oximetry. Supplemental oxygen per nasal canula was started. The intravenous medication was administered incrementally to provide conscious sedation and toallow the patient to remain comfortable and conversant throughout the procedure. The area of the posterior lumbar area was prepped povidone- iodine three times and draped into a sterile field. Fluoroscopy was used to identify the location of the left side L3-4, L4-5 and L5-S1 medial branch nerves respectively. Skin anesthesia was achieved using 3 cc of Lidocaine 0.5% over the injection sites. A 20gauge, 100mm (10mm active tip) curved RF needle was slowly inserted at each level using AP, lateraland oblique fluoroscopic imaging. Negative aspiration for blood or CSF was confirmed. Sensory stimulation at 50Hz below 0.5V was achieved at every level. Motor stimulation at 2Hz up to 1.5V did not cause any radicular symptoms at any level. Each level was anesthetized with 1.5 cc of lidocaine 1%. Radiofrequency lesioning was performed for 90 seconds at 80 degrees at each level. At each level, 1mlof 0.25% Marcaine with 5 mg of Kenalog was injected. The needles were removed and bleeding was nil.A sterile dressing was applied. Tania Juradojayme was taken to the Post-block Recovery Area for further observation. EBL: nil Start time: 1:09 PM End time: 1:22 PM I was present the entire time and personally performed the procedure. SIGNATURE: Anibal Lake MD DATE: March 02, 2022 TIME: 1:25 PM documented in this encounterAshtabula [facility]05-31-2022 History of Present illness Narrative* Bg Chavarria MD - 02/27/2022 5:40 PM EDT This note was created using [employer]. Subjective Tania Romero is a 81 year old female. Patient presents with: Follow Up SUBJECTIVE: Tania Romero is a 81 year old year old lady here today for 6 month follow up appointment for review of medical conditions. 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 PAST MEDICAL HISTORY Diagnosis Date DJD (degenerative joint disease) of hip Left--Dr. Vasquez (worse from 2011 to 2012) Low vitamin B12 level Multiple sclerosis ([facility]) 05/31/2016 Osteopenia Type 2 diabetes mellitus, without long-term current use of insulin ([facility]) 01/24/2021 Current Outpatient Medications Medication Sig psyllium husk (METAMUCIL ORAL) Take by mouth. Lactobacillus acidophilus (PROBIOTIC ORAL) Take by mouth. alendronate (FOSAMAX) 70 mg tablet Take 1 tablet by mouth one time a week. Take with a full glass of water, on an empty stomach; do NOT lie down for 30minutes. azithromycin (ZITHROMAX) 250 mg tablet Take two tablets one hour before dental procedures. meloxicam (MOBIC) 7.5 mg tablet Take 1 tablet by mouth twice daily. cyanocobalamin 1,000 mcg/mL USE ONE ML INTO THE MUSCLE ONCE MONTHLY metFORMIN ER (GLUCOPHAGE XR) 500 mg 24 hr tablet Take 1 tablet by mouth daily with breakfast. calcium carbonate (TUMS ORAL) Take by mouth as needed. Insulin Syringe-Needle U-100 (BD INSULIN SYRINGE) 1 mL 25 x 1 syrg Use for b12 injection monthly Cholecalciferol, Vitamin D3, 125 mcg (5,000 unit) cap Take 1 capsule by mouth once daily. Lactase (LACTAID FAST ACT) 9,000 unit chew Uses as needed conjugated estrogens (PREMARIN) vaginal cream Use 0.5 g vaginally as needed. for 3 weeks then off for 1 week No current facility-administered medications for this visit. Review of Systems Objective There were no vitals taken for this visit. Physical Exam Constitutional: Appearance: Normal appearance. HENT: Head: Normocephalic. Eyes: Conjunctiva/sclera: Conjunctivae normal. Cardiovascular: Rate and Rhythm: Normal rate and regular rhythm. Heart sounds: Normal heart sounds. Pulmonary: Effort: Pulmonary effort is normal. Breath sounds: Normal breath sounds. Chest: Breasts: Breasts are symmetrical. Right: Normal. No axillary adenopathy or supraclavicular adenopathy. Left: Normal. No axillary adenopathy or supraclavicular adenopathy. Lymphadenopathy: Upper Body: Right upper body: No supraclavicular, axillary or pectoral adenopathy. Left upper body: No supraclavicular, axillary or pectoral adenopathy. Skin: General: Skin is warm and dry. Neurological: General: No focal deficit present. Mental Status: She is alert and oriented to person, place, and time. Psychiatric: Mood and Affect: Mood normal. Behavior: Behavior normal. Thought Content: Thought content normal. Judgment: Judgment normal. Component Latest Ref Rng & Units 02/01/2021 06/27/2021 02/19/2022 Protein, Total 6.3 - 8.0 g/dL 6.7 Albumin 3.9 - 4.9 g/dL 3.9 Calcium 8.5 - 10.2 mg/dL 8.5 9.4 Bilirubin, Total 0.2 - 1.3 mg/dL 0.4 Alkaline Phosphatase 34 - 123 U/L 79 AST 13 - 35 U/L 20 Glucose 74 - 99 mg/dL 213 (H) 106 (H) BUN 7 - 21 mg/dL 25 (H) 30 (H) Creatinine 0.58 - 0.96 mg/dL 0.68 0.84 Sodium 136 - 144 mmol/L 136 138 Potassium 3.7 - 5.1 mmol/L 4.4 4.3 Chloride 97 - 105 mmol/L 101 100 CO2 22 - 30 mmol/L 30 26 Anion Gap 9 - 18 mmol/L 5 (L) 12 ALT 7 - 38 U/L 7 eGFR- >60 >60 eGFR-All Other Races . >60 >60 WBC 3.70 - 11.00 k/uL 12.74 (H) 7.95 RBC 3.90 - 5.20 m/uL 3.61 (L) 4.28 Hemoglobin 11.5 - 15.5 g/dL 10.5 (L) 11.6 Hematocrit 36.0 - 46.0 % 31.7 (L) 37.4 MCV 80.0 - 100.0 fL 87.8 87.4 MCH 26.0 - 34.0 pG 29.1 27.1 MCHC 30.5 - 36.0 g/dL 33.1 31.0 RDW-CV 11.5 - 15.0 % 13.1 13.5 Platelet Count 150 - 400 k/uL 240 322 MPV 9.0 - 12.7 fL 8.8 (L) 9.3 Absolute nRBC <0.01 k/uL <0.01 <0.01 Cholesterol, Total <200 mg/dL 209 (H) Triglyceride <150 mg/dL 79 HDL Cholesterol >39 mg/dL 65 LDL Cholesterol <100 mg/dL 128 (H) Non HDL Cholesterol <130 mg/dL 144 (H) Fasting Time hrs 12 VLDL Cholesterol <30 mg/dL 16 TC:HDL Ratio <5.10 3.22 LDL:HDL Ratio <2.54 1.97 Creatinine, Ur Random (UCRR) 20.0 - 300.0 mg/dL 57.2 Albumin, Urine Random mg/L <12.0 Albumin/Creat Ratio <30 mg/g <21 Hemoglobin A1C 4.3 - 5.6 % 6.9 (H) 6.6 (H) Estimated Average Glucose mg/dL 151 143 Vitamin D 25 Hydroxy 31.0 - 80.0 ng/mL 98.6 (H) Vitamin B12 232 - 1,245 pg/mL 582 Assessment and Plan ASSESSMENT/PLAN: 1. Type 2 diabetes mellitus with other specified complication, without long-term current use of insulin (HCC) - ICD9: 250.80, ICD10: E11.69 (primary diagnosis) Controlled. improved control - Continue current medications - Encouraged regular aerobic exercise. Does work in garden - Doing well overall - LIPID PANEL BASIC - COMP METABOLIC PANEL - HGB A1C 2. Low vitamin B12 level - ICD9: 266.2, ICD10: E53.8 Has been good Continue present management. - CBC - VITAMIN B12 BLOOD 3. Vitamin D deficiency - ICD9: 268.9, ICD10: E55.9 Last check was high. Will check next time. - VITAMIN D 25 HYDROXY 4. Elevated LDL cholesterol level - ICD9: 272.0, ICD10: E78.00 Check next time - LIPID PANEL BASIC 5. Breast cancer screening by mammogram - ICD9: V76.12, ICD10: Z12.31 - Follow up for annual exam in one year. - ANGIE SCREENING 6 Colon cancer screening--GI consult as discussed. Decide what would be appropriate screening givenher age but family history of colon cancer at age in 80s. Bg Chavarria MD documented in this encounterAshtabula [facility]05-17-2022 History of Present illness Narrative* Lorena Jacobsen MD - 02/13/2022 2:32 PM EDT Images from the original note were not included. DEPARTMENT OF ORTHOPAEDICS PATIENT INFO: Tania Romero 81 year old REFERRING M.D.: Pavel Lobo [address] [address] HISTORY CHIEF COMPLAINT: left hip HPI: Tania is a 81 year old female that presents today with the complaints of follow up left merle done by Dr Lobo 02/01/21. Ms. Romero is here to discuss the current status of her joint and the alternatives for treatment. Has some lateral pain with lying on that side. No hip/groin pain. Reports some LLD on that side. ROS: No new medical issues PAST MEDICAL HISTORY Diagnosis Date DJD (degenerative joint disease) of hip Left--Dr. Vasquez (worse from 2011 to 2012) Low vitamin B12 level Multiple sclerosis (HCC) 05/31/2016 Osteopenia Type 2 diabetes mellitus, without long-term current use of insulin (HCC) 01/24/2021 PAST SURGICAL HISTORY Procedure Laterality Date CATARACT EXTRACTION HX Right 04/25/2015 Cataract surgery DELIVERY ONLY , low cervical COLONOSCOPY FLX DX W/COLLJ SPEC WHEN PFRMD 07/31/2000 Colonoscopy COLONOSCOPY FLX DX W/COLLJ SPEC WHEN PFRMD 09/18/2006 COLONOSCOPY FLX DX W/COLLJ SPEC WHEN PFRMD 07/01/2012 Colonoscopy COLONOSCOPY FLX DX W/COLLJ SPEC WHEN PFRMD 04/30/2017 Colonoscopy LIG/TRNSXJ FLP TUBE ABDL/VAG APPR UNI/BI Tubal ligation PAST SURGICAL HISTORY OF 12/31/2002 lap left ing hernia PAST SURGICAL HISTORY OF 10/03/2012 bunionectomy (Dr. Araya) TONSILLECTOMY PRIMARY/SECONDARY <AGE 13 Tonsillectomy TOTAL HIP REPLACEMENT Left 02/01/2021 Current Outpatient Medications Medication Sig Dispense Refill psyllium husk (METAMUCIL ORAL) Take by mouth. Lactobacillus acidophilus (PROBIOTIC ORAL) Take by mouth. alendronate (FOSAMAX) 70 mg tablet Take 1 tablet by mouth one time a week. Take with a full glass of water, on an empty stomach; do NOT lie down for 30minutes. 12 tablet 3 azithromycin (ZITHROMAX) 250 mg tablet Take two tablets one hour before dental procedures. 2 tablet3 meloxicam (MOBIC) 7.5 mg tablet Take 1 tablet by mouth twice daily. 180 tablet 3 cyanocobalamin 1,000 mcg/mL USE ONE ML INTO THE MUSCLE ONCE MONTHLY 3 mL 3 metFORMIN ER (GLUCOPHAGE XR) 500 mg 24 hr tablet Take 1 tablet by mouth daily with breakfast. 90 tablet 3 calcium carbonate (TUMS ORAL) Take by mouth as needed. Insulin Syringe-Needle U-100 (BD INSULIN SYRINGE) 1 mL 25 x 1 syrg Use for b12 injection monthly 12 Syringe 3 Cholecalciferol, Vitamin D3, 125 mcg (5,000 unit) cap Take 1 capsule by mouth once daily. Lactase (LACTAID FAST ACT) 9,000 unit chew Uses as needed conjugated estrogens (PREMARIN) vaginal cream Use 0.5 g vaginally as needed. for 3 weeks then off for 1 week No current facility-administered medications for this visit. ALLERGIES Allergen Reactions Amoxicillin Rash Clindamycin Contraindication-Medical Surgical C diff Compazine [Prochlor* Intolerance Penicillins Rash, Intolerance Rash after 4 days of antibiotic . FAMILY HISTORY Problem Relation Age of Onset Cancer Father COLON Osteoporosis Mother other (low thyroid) Mother Social History Tobacco Use Smoking status: Former Smoker Smokeless tobacco: Never Used Substance Use Topics Alcohol use: Yes Comment: GLASS OF WINE DAILY Drug use: No PHYSICAL EXAM: There is no height or weight on file to calculate BMI. GENERAL:Wnl nutrition, no deformities, healthy appearing CV: No extremity swelling, varices, edema, pallor, erythema PULSES: Normal,bilateral femoral 2+/2+, popliteal 2+/2+, dorsalis pedis 2+/2+, posterior tibial 2+/2+ SKIN: No rash, lesions. involving the four extremities. NEURO/PSYCH: A/Ox3. Nl mood, with no signs of depression, anxiety, or agitation. There are no pathologic reflexes. LYMPHATIC: There is no adenoathy to palpation. LOWER EXTREMITIES: GAIT: normal Left hip: Well healed incision TTP over GT Full painless arcs of motion Full strength Neg [facility] Leg lengths appear symmetric on exam X-RAYS: Well appearing MERLE no evidence of loosening 2-3mm LLD at most on measured XR MEDICAL DECISION MAKING: ASSESSMENT: Well-appearing L MERLE PLAN: Tania and I had a long discussion about treatment options. She is doing well. Has some GT bursitis. Discussed PT/nsaids. Would like to hold off for now. Getting spine ablation coming up, does have scoliosis. Discussed that LLD is minimal clinically and on XR. Can see back every 2 Years for repeatcheck and XRs. Lorena Jacobsen MD Orthopaedic Surgery documented in this encounterAshtabula [facility]05-05-2022 Miscellaneous Notes* Telephone Encounter - Bekah Chamberlain - 02/01/2022 1:53 PM EDT Called patient regarding request. Patient stated she was already contacted by nurse staff to schedule injections. documented in this encounterAshtabula [facility]04-26-2022 Miscellaneous Notes* Telephone Encounter - Montana Esparza LPN - 01/23/2022 11:23 AM EDT Spoke with pt and information listed below given. Pt verbalizes understanding. Montana Esparza LPN * Telephone Encounter - Bg Chavarria MD - 01/22/2022 7:47 PM EDT Fine to switch to alendronate instead The following approved medication requests have been transmitted electronically. Signed Prescriptions Disp Refills alendronate (FOSAMAX) 70 mg tablet 12 tablet 3 Sig: Take 1 tablet by mouth one time a week. Take with a full glass of water, on an empty stomach; do NOT lie down for 30minutes. Authorizing Provider: BG CHAVARRIA MD * Telephone Encounter - Lilly Miller RN - 01/22/2022 12:03 PM EDT Pt reports that with discount card from pharmacy that medication would cost them $41. The insurancewill pay for Alendronate 70 mg and it would only cost them $3. She is asking if this would be an acceptable replacement drug for Dr Chavarria. If so could the provider please send it to [facility]. Patient has been identified by name and date of : Yes Patient phones for refill(s): Pending Prescriptions Disp Refills ALENDRONATE 70 MG TABLET Sig: Take 1 tablet by mouth one time a week. Take with a full glass of water, on an empty stomach; do NOT lie down for 30minutes. Date of last office visit in primary care: 10/24/21 Future visit: 02/27/22 Last 2 Encounter Wt Readings: Date: Wt: 12/11/2021 49.9 kg (110 lb) 10/24/2021 50.3 kg (111 lb) Previous labs/tests for medication: Blood Pressure: BUN (mg/dL) Date Value 06/27/2021 30 Sodium (mmol/L) Date Value 06/27/2021 138 Last 1 Encounter BP Readings: Date: BP: 12/11/2021 133/75 Liver Function: ALT (U/L) Date Value 06/27/2021 7 AST (U/L) Date Value 06/27/2021 20 Please advise. Thank you. Lilly Miller RN * Telephone Encounter - Linh Rasheed Pss - 01/22/2022 11:03 AM EDT Tania Romero is calling Bg Chavarria MD today she is calling because she received a letter from her Insurance stating they will no longer pay for (risedronate (ACTONEL) 35 mg tablet. The letter did not list any alternative medications but stated check formulary. It stated she needs a prior au thorization or exception for this drug. Patient was advised she needs to call and see what drug is covered on her formulary. She then stated she was unable to tolerate other medications; does not remember this, but her told her this. Patient asked what her doctor advises and please call samanta. Patient has been identified by name and birthdate. Duration of symptoms: N/A Person calling: self Call patient at: on cell [phone] (home) [phone] (cell) Was an appointment scheduled: No Closing statement: Linh Chaudhari documented in this encounterAshtabula [facility]04-25-2022 Miscellaneous Notes* Telephone Encounter - Omar Sanchez RN - 01/22/2022 2:15 PM EDT Patient added to [employer] Injection scheduling spreadsheet Office to contact patient within 5 business days to schedule * Telephone Encounter - Jacquie Sevilla [email or web address] - 01/22/2022 2:11 PM EDT Injection order signed off Please call patient to schedule procedure * Telephone Encounter - Omar Sanchez RN - 01/22/2022 1:38 PM EDT Patient left voicemail 01/22/2022 Patient would like to proceed with radiofrequency ablations Patient received Bilateral L3-L4, L4-L5, L5-S1 Lumbar Facet Injections 11/07/2021 and 12/19/2021 Will need overall percentage of improvement Order pended to provider Office to contact patient within 5 business days to schedule documented in this encounterAshtabula [facility] Hospital03-24-2022 Miscellaneous Notes* Telephone Encounter - Bg Chavarria MD - 12/21/2021 12:34 PM EDT See MyChart reply to patient Make her appointment 40 minutes yearly and move next patient after her to later time slot. documented in this encounterAshtabula [facility]05-07-2021 History of Past illness Narrative* Problem Noted Date Resolved Date Primary osteoarthritis of left hip 02/03/2021 Overview: Left--Dr. Vasquez (worse from 2011 to 2012) 12/16/2018--Left--near bone on bone apposition; Right--minimal degenerative change with eburnation of the acetabular rim documented as of this encounter (statuses as of 12/26/2021) [facility] of Past illness Narrative* Problem Noted Date Resolved Date Primary osteoarthritis of left hip 02/03/2021 Overview: Left--Dr. Vasquez (worse from 2011 to 2012) 12/16/2018--Left--near bone on bone apposition; Right--minimal degenerative change with eburnation of the acetabular rim documented as of this encounter (statuses as of 01/17/2022) [facility] of Past illness Narrative* Problem Noted Date Resolved Date Primary osteoarthritis of left hip 02/03/2021 Overview: Left--Dr. Vasquez (worse from 2011 to 2012) 12/16/2018--Left--near bone on bone apposition; Right--minimal degenerative change with eburnation of the acetabular rim documented as of this encounter (statuses as of 01/22/2022) [facility] of Past illness Narrative* Problem Noted Date Resolved Date Primary osteoarthritis of left hip 02/03/2021 Overview: Left--Dr. Vasquez (worse from 2011 to 2012) 12/16/2018--Left--near bone on bone apposition; Right--minimal degenerative change with eburnation of the acetabular rim documented as of this encounter (statuses as of 01/23/2022) [facility] of Past illness Narrative* Problem Noted Date Resolved Date Primary osteoarthritis of left hip 02/03/2021 Overview: Left--Dr. Vasquez (worse from 2011 to 2012) 12/16/2018--Left--near bone on bone apposition; Right--minimal degenerative change with eburnation of the acetabular rim documented as of this encounter (statuses as of 02/01/2022) [facility] of Past illness Narrative* Problem Noted Date Resolved Date Primary osteoarthritis of left hip 02/03/2021 Overview: Left--Dr. Vasquez (worse from 2011 to 2012) 12/16/2018--Left--near bone on bone apposition; Right--minimal degenerative change with eburnation of the acetabular rim documented as of this encounter (statuses as of 02/07/2022) [facility] of Past illness Narrative* Problem Noted Date Resolved Date Primary osteoarthritis of left hip 02/03/2021 Overview: Left--Dr. Vasquez (worse from 2011 to 2012) 12/16/2018--Left--near bone on bone apposition; Right--minimal degenerative change with eburnation of the acetabular rim documented as of this encounter (statuses as of 02/13/2022) [facility] of Past illness Narrative* Problem Noted Date Resolved Date Primary osteoarthritis of left hip 02/03/2021 Overview: Left--Dr. Vasquez (worse from 2011 to 2012) 12/16/2018--Left--near bone on bone apposition; Right--minimal degenerative change with eburnation of the acetabular rim documented as of this encounter (statuses as of 03/03/2022) [facility] of Past illness Narrative* Problem Noted Date Resolved Date Primary osteoarthritis of left hip 02/03/2021 Overview: Left--Dr. Vasquez (worse from 2011 to 2012) 12/16/2018--Left--near bone on bone apposition; Right--minimal degenerative change with eburnation of the acetabular rim documented as of this encounter (statuses as of 03/05/2022) [facility] of Past illness Narrative* Problem Noted Date Resolved Date Primary osteoarthritis of left hip 02/03/2021 Overview: Left--Dr. Vasquez (worse from 2011 to 2012) 12/16/2018--Left--near bone on bone apposition; Right--minimal degenerative change with eburnation of the acetabular rim documented as of this encounter (statuses as of 03/05/2022) [facility] History of Past illness Narrative* Problem Noted Date Resolved Date Primary osteoarthritis of left hip 02/03/2021 Overview: Left--Dr. Vasquez (worse from 2011 to 2012) 12/16/2018--Left--near bone on bone apposition; Right--minimal degenerative change with eburnation of the acetabular rim documented as of this encounter (statuses as of 03/07/2022) [facility] History of Past illness Narrative* Problem Noted Date Resolved Date Primary osteoarthritis of left hip 02/03/2021 Overview: Left--Dr. Vasquez (worse from 2011 to 2012) 12/16/2018--Left--near bone on bone apposition; Right--minimal degenerative change with eburnation of the acetabular rim documented as of this encounter (statuses as of 03/08/2022) [facility] History of Past illness Narrative* Problem Noted Date Resolved Date Primary osteoarthritis of left hip 02/03/2021 Overview: Left--Dr. Vasquez (worse from 2011 to 2012) 12/16/2018--Left--near bone on bone apposition; Right--minimal degenerative change with eburnation of the acetabular rim documented as of this encounter (statuses as of 03/15/2022) [facility] History of Past illness Narrative* Problem Noted Date Resolved Date Primary osteoarthritis of left hip 02/03/2021 Overview: Left--Dr. Vasquez (worse from 2011 to 2012) 12/16/2018--Left--near bone on bone apposition; Right--minimal degenerative change with eburnation of the acetabular rim documented as of this encounter (statuses as of 03/15/2022) [facility] History of Past illness Narrative* Problem Noted Date Resolved Date Primary osteoarthritis of left hip 02/03/2021 Overview: Left--Dr. Vasquez (worse from 2011 to 2012) 12/16/2018--Left--near bone on bone apposition; Right--minimal degenerative change with eburnation of the acetabular rim documented as of this encounter (statuses as of 04/24/2022) [facility] History of Past illness Narrative* Problem Noted Date Resolved Date Primary osteoarthritis of left hip 02/03/2021 Overview: Left--Dr. Vasquez (worse from 2011 to 2012) 12/16/2018--Left--near bone on bone apposition; Right--minimal degenerative change with eburnation of the acetabular rim documented as of this encounter (statuses as of 04/30/2022) [facility] History of Past illness Narrative* Problem Noted Date Resolved Date Primary osteoarthritis of left hip 02/03/2021 Overview: Left--Dr. Vasquez (worse from 2011 to 2012) 12/16/2018--Left--near bone on bone apposition; Right--minimal degenerative change with eburnation of the acetabular rim documented as of this encounter (statuses as of 05/05/2022) [facility] History of Past illness Narrative* Problem Noted Date Resolved Date Primary osteoarthritis of left hip 02/03/2021 Overview: Left--Dr. Vasquez (worse from 2011 to 2012) 12/16/2018--Left--near bone on bone apposition; Right--minimal degenerative change with eburnation of the acetabular rim documented as of this encounter (statuses as of 05/07/2022) [facility] History of Past illness Narrative* Problem Noted Date Resolved Date Primary osteoarthritis of left hip 02/03/2021 Overview: Left--Dr. Vasquez (worse from 2011 to 2012) 12/16/2018--Left--near bone on bone apposition; Right--minimal degenerative change with eburnation of the acetabular rim documented as of this encounter (statuses as of 05/31/2022) [facility] History of Past illness Narrative* Problem Noted Date Resolved Date Primary osteoarthritis of left hip 02/03/2021 Overview: Left--Dr. Vasquez (worse from 2011 to 2012) 12/16/2018--Left--near bone on bone apposition; Right--minimal degenerative change with eburnation of the acetabular rim documented as of this encounter (statuses as of 06/28/2022) [facility] History of Past illness Narrative* Problem Noted Date Resolved Date Primary osteoarthritis of left hip 02/03/2021 Overview: Left--Dr. Vasquez (worse from 2011 to 2012) 12/16/2018--Left--near bone on bone apposition; Right--minimal degenerative change with eburnation of the acetabular rim documented as of this encounter (statuses as of 07/12/2022) [facility] History of Past illness Narrative* Problem Noted Date Resolved Date Primary osteoarthritis of left hip 02/03/2021 Overview: Left--Dr. Vasquez (worse from 2011 to 2012) 12/16/2018--Left--near bone on bone apposition; Right--minimal degenerative change with eburnation of the acetabular rim documented as of this encounter (statuses as of 08/14/2022) [facility] History of Past illness Narrative* Problem Noted Date Resolved Date Primary osteoarthritis of left hip 02/03/2021 Overview: Left--Dr. Vasquez (worse from 2011 to 2012) 12/16/2018--Left--near bone on bone apposition; Right--minimal degenerative change with eburnation of the acetabular rim documented as of this encounter (statuses as of 09/14/2022) [facility] History of Past illness Narrative* Problem Noted Date Resolved Date Primary osteoarthritis of left hip 02/03/2021 Overview: Left--Dr. Vasquez (worse from 2011 to 2012) 12/16/2018--Left--near bone on bone apposition; Right--minimal degenerative change with eburnation of the acetabular rim documented as of this encounter (statuses as of 11/15/2022) [facility] History of Past illness Narrative* Problem Noted Date Resolved Date Primary osteoarthritis of left hip 02/03/2021 Overview: Left--Dr. Vasquez (worse from 2011 to 2012) 12/16/2018--Left--near bone on bone apposition; Right--minimal degenerative change with eburnation of the acetabular rim documented as of this encounter (statuses as of 11/20/2022) [facility] History of Past illness Narrative* Problem Noted Date Resolved Date Primary osteoarthritis of left hip 02/03/2021 Overview: Left--Dr. Vasquez (worse from 2011 to 2012) 12/16/2018--Left--near bone on bone apposition; Right--minimal degenerative change with eburnation of the acetabular rim documented as of this encounter (statuses as of 12/18/2022) [facility] History of Past illness Narrative* Problem Noted Date Resolved Date Primary osteoarthritis of left hip 02/03/2021 Overview: Left--Dr. Vasquez (worse from 2011 to 2012) 12/16/2018--Left--near bone on bone apposition; Right--minimal degenerative change with eburnation of the acetabular rim documented as of this encounter (statuses as of 12/20/2022) [facility] History of Past illness Narrative* Problem Noted Date Resolved Date Primary osteoarthritis of left hip 02/03/2021 Overview: Left--Dr. Vasqeuz (worse from 2011 to 2012) 12/16/2018--Left--near bone on bone apposition; Right--minimal degenerative change with eburnation of the acetabular rim documented as of this encounter (statuses as of 02/04/2023) [facility] History of Past illness Narrative* Problem Noted Date Resolved Date Primary osteoarthritis of left hip 02/03/2021 Overview: Left--Dr. Vasquez (worse from 2011 to 2012) 12/16/2018--Left--near bone on bone apposition; Right--minimal degenerative change with eburnation of the acetabular rim documented as of this encounter (statuses as of 02/05/2023) [facility] History of Past illness Narrative* Problem Noted Date Resolved Date Primary osteoarthritis of left hip 02/03/2021 Overview: Left--Dr. Vasquez (worse from 2011 to 2012) 12/16/2018--Left--near bone on bone apposition; Right--minimal degenerative change with eburnation of the acetabular rim documented as of this encounter (statuses as of 02/08/2023) [facility] History of Past illness Narrative* Problem Noted Date Resolved Date Primary osteoarthritis of left hip 02/03/2021 Overview: Left--Dr. Vasquez (worse from 2011 to 2012) 12/16/2018--Left--near bone on bone apposition; Right--minimal degenerative change with eburnation of the acetabular rim documented as of this encounter (statuses as of 03/01/2023) [facility] History of Past illness Narrative* Problem Noted Date Resolved Date Primary osteoarthritis of left hip 02/03/2021 Overview: Left--Dr. Vasquez (worse from 2011 to 2012) 12/16/2018--Left--near bone on bone apposition; Right--minimal degenerative change with eburnation of the acetabular rim documented as of this encounter (statuses as of 03/19/2023) [facility] History of Past illness Narrative* Problem Noted Date Resolved Date Primary osteoarthritis of left hip 02/03/2021 Overview: Left--Dr. Vasquez (worse from 2011 to 2012) 12/16/2018--Left--near bone on bone apposition; Right--minimal degenerative change with eburnation of the acetabular rim documented as of this encounter (statuses as of 03/21/2023) [facility] History of Past illness Narrative* Problem Noted Date Resolved Date Primary osteoarthritis of left hip 02/03/2021 Overview: Left--Dr. Vasquez (worse from 2011 to 2012) 12/16/2018--Left--near bone on bone apposition; Right--minimal degenerative change with eburnation of the acetabular rim documented as of this encounter (statuses as of 03/25/2023) [facility] History of Past illness Narrative* Problem Noted Date Resolved Date Primary osteoarthritis of left hip 02/03/2021 Overview: Left--Dr. Vasquez (worse from 2011 to 2012) 12/16/2018--Left--near bone on bone apposition; Right--minimal degenerative change with eburnation of the acetabular rim documented as of this encounter (statuses as of 04/01/2023) [facility] History of Past illness Narrative* Problem Noted Date Diagnosed Date Resolved Date Primary osteoarthritis of left hip 02/03/2021 Overview: Left--Dr. Vasquez (worse from 2011 to 2012) 12/16/2018--Left--near bone on bone apposition; Right--minimal degenerative change with eburnation of the acetabular rim documented as of this encounter (statuses as of 04/08/2023) [facility] History of Past illness Narrative* Problem Noted Date Diagnosed Date Resolved Date Primary osteoarthritis of left hip 02/03/2021 Overview: Left--Dr. Vasquez (worse from 2011 to 2012) 12/16/2018--Left--near bone on bone apposition; Right--minimal degenerative change with eburnation of the acetabular rim documented as of this encounter (statuses as of 04/16/2023) [facility] History of Past illness Narrative* Problem Noted Date Diagnosed Date Resolved Date Primary osteoarthritis of left hip 02/03/2021 Overview: Left--Dr. Vasquez (worse from 2011 to 2012) 12/16/2018--Left--near bone on bone apposition; Right--minimal degenerative change with eburnation of the acetabular rim documented as of this encounter (statuses as of 04/22/2023) [facility] History of Past illness Narrative* Problem Noted Date Diagnosed Date Resolved Date Primary osteoarthritis of left hip 02/03/2021 Overview: Left--Dr. Vasquez (worse from 2011 to 2012) 12/16/2018--Left--near bone on bone apposition; Right--minimal degenerative change with eburnation of the acetabular rim documented as of this encounter (statuses as of 04/25/2023) [facility] History of Past illness Narrative* Problem Noted Date Diagnosed Date Resolved Date Primary osteoarthritis of left hip 02/03/2021 Overview: Left--Dr. Vasquez (worse from 2011 to 2012) 12/16/2018--Left--near bone on bone apposition; Right--minimal degenerative change with eburnation of the acetabular rim documented as of this encounter (statuses as of 05/02/2023) [facility] History of Past illness Narrative* Problem Noted Date Diagnosed Date Resolved Date Primary osteoarthritis of left hip 02/03/2021 Overview: Left--Dr. Vasquez (worse from 2011 to 2012) 12/16/2018--Left--near bone on bone apposition; Right--minimal degenerative change with eburnation of the acetabular rim documented as of this encounter (statuses as of 05/03/2023) [facility] History of Past illness Narrative* Problem Noted Date Diagnosed Date Resolved Date Primary osteoarthritis of left hip 02/03/2021 Overview: Left--Dr. Vasquez (worse from 2011 to 2012) 12/16/2018--Left--near bone on bone apposition; Right--minimal degenerative change with eburnation of the acetabular rim documented as of this encounter (statuses as of 05/03/2023) [facility] History of Past illness Narrative* Problem Noted Date Diagnosed Date Resolved Date Primary osteoarthritis of left hip 02/03/2021 Overview: Left--Dr. Vasquez (worse from 2011 to 2012) 12/16/2018--Left--near bone on bone apposition; Right--minimal degenerative change with eburnation of the acetabular rim documented as of this encounter (statuses as of 05/06/2023) [facility] History of Past illness Narrative* Problem Noted Date Diagnosed Date Resolved Date Primary osteoarthritis of left hip 02/03/2021 Overview: Left--Dr. Vasquez (worse from 2011 to 2012) 12/16/2018--Left--near bone on bone apposition; Right--minimal degenerative change with eburnation of the acetabular rim documented as of this encounter (statuses as of 05/07/2023) [facility] History of Past illness Narrative* Problem Noted Date Diagnosed Date Resolved Date Primary osteoarthritis of left hip 02/03/2021 Overview: Left--Dr. Vasquez (worse from 2011 to 2012) 12/16/2018--Left--near bone on bone apposition; Right--minimal degenerative change with eburnation of the acetabular rim documented as of this encounter (statuses as of 05/08/2023) [facility] History of Past illness Narrative* Problem Noted Date Diagnosed Date Resolved Date Primary osteoarthritis of left hip 02/03/2021 Overview: Left--Dr. Vasquez (worse from 2011 to 2012) 12/16/2018--Left--near bone on bone apposition; Right--minimal degenerative change with eburnation of the acetabular rim documented as of this encounter (statuses as of 05/16/2023) [facility] History of Past illness Narrative* Problem Noted Date Diagnosed Date Resolved Date Primary osteoarthritis of left hip 02/03/2021 Overview: Left--Dr. Vasquez (worse from 2011 to 2012) 12/16/2018--Left--near bone on bone apposition; Right--minimal degenerative change with eburnation of the acetabular rim documented as of this encounter (statuses as of 05/20/2023) [facility] History of Past illness Narrative* Problem Noted Date Diagnosed Date Resolved Date Primary osteoarthritis of left hip 02/03/2021 Overview: Left--Dr. Vasquez (worse from 2011 to 2012) 12/16/2018--Left--near bone on bone apposition; Right--minimal degenerative change with eburnation of the acetabular rim documented as of this encounter (statuses as of 05/21/2023) [facility] History of Past illness Narrative* Problem Noted Date Diagnosed Date Resolved Date Primary osteoarthritis of left hip 02/03/2021 Overview: Left--Dr. Vasquez (worse from 2011 to 2012) 12/16/2018--Left--near bone on bone apposition; Right--minimal degenerative change with eburnation of the acetabular rim documented as of this encounter (statuses as of 05/22/2023) [facility] History of Past illness Narrative* Problem Noted Date Diagnosed Date Resolved Date Primary osteoarthritis of left hip 02/03/2021 Overview: Left--Dr. Vasquez (worse from 2011 to 2012) 12/16/2018--Left--near bone on bone apposition; Right--minimal degenerative change with eburnation of the acetabular rim documented as of this encounter (statuses as of 05/29/2023) [facility] History of Past illness Narrative* Problem Noted Date Diagnosed Date Resolved Date Primary osteoarthritis of left hip 02/03/2021 Overview: Left--Dr. Vasquez (worse from 2011 to 2012) 12/16/2018--Left--near bone on bone apposition; Right--minimal degenerative change with eburnation of the acetabular rim documented as of this encounter (statuses as of 05/29/2023) [facility] History of Past illness Narrative* Problem Noted Date Diagnosed Date Resolved Date Primary osteoarthritis of left hip 02/03/2021 Overview: Left--Dr. Vasquez (worse from 2011 to 2012) 12/16/2018--Left--near bone on bone apposition; Right--minimal degenerative change with eburnation of the acetabular rim documented as of this encounter (statuses as of 06/05/2023) [facility] History of Past illness Narrative* Problem Noted Date Diagnosed Date Resolved Date Primary osteoarthritis of left hip 02/03/2021 Overview: Left--Dr. Vasquez (worse from 2011 to 2012) 12/16/2018--Left--near bone on bone apposition; Right--minimal degenerative change with eburnation of the acetabular rim documented as of this encounter (statuses as of 06/06/2023) [facility] History of Past illness Narrative* Problem Noted Date Diagnosed Date Resolved Date Primary osteoarthritis of left hip 02/03/2021 Overview: Left--Dr. Vasquez (worse from 2011 to 2012) 12/16/2018--Left--near bone on bone apposition; Right--minimal degenerative change with eburnation of the acetabular rim documented as of this encounter (statuses as of 06/06/2023) [facility] History of Past illness Narrative* Problem Noted Date Diagnosed Date Resolved Date Primary osteoarthritis of left hip 02/03/2021 Overview: Left--Dr. Vasquez (worse from 2011 to 2012) 12/16/2018--Left--near bone on bone apposition; Right--minimal degenerative change with eburnation of the acetabular rim documented as of this encounter (statuses as of 06/07/2023) [facility] of Past illness Narrative* Problem Noted Date Diagnosed Date Resolved Date Primary osteoarthritis of left hip 02/03/2021 Overview: Left--Dr. Vasquez (worse from 2011 to 2012) 12/16/2018--Left--near bone on bone apposition; Right--minimal degenerative change with eburnation of the acetabular rim documented as of this encounter (statuses as of 06/11/2023) [facility] History of Past illness Narrative* Problem Noted Date Diagnosed Date Resolved Date Primary osteoarthritis of left hip 02/03/2021 Overview: Left--Dr. Vasquez (worse from 2011 to 2012) 12/16/2018--Left--near bone on bone apposition; Right--minimal degenerative change with eburnation of the acetabular rim documented as of this encounter (statuses as of 06/21/2023) [facility] of Past illness Narrative* Problem Noted Date Diagnosed Date Resolved Date Primary osteoarthritis of left hip 02/03/2021 Overview: Left--Dr. Gesler (worse from 2011 to 2012) 12/16/2018--Left--near bone on bone apposition; Right--minimal degenerative change with eburnation of the acetabular rim documented as of this encounter (statuses as of 06/26/2023) [facility] Diagnosis Pain in left hip- Primary Pain in joint, pelvic region and thigh [facility] Diagnosis Chronic midline low back pain without sciatica DDD (degenerative disc disease), lumbar Degeneration of lumbar or lumbosacral intervertebral disc Lumbar spondylosis Lumbosacral spondylosis without myelopathy [facility] Diagnosis Chronic midline low back pain without sciatica- Primary DDD (degenerative disc disease), lumbar Degeneration of lumbar or lumbosacral intervertebral disc Lumbar spondylosis Lumbosacral spondylosis without myelopathy Scoliosis of lumbar spine, unspecified scoliosis type [facility] Diagnosis Status post total replacement of left hip- Primary Chronic midline low back pain without sciatica DDD (degenerative disc disease), lumbar Degeneration of lumbar or lumbosacral intervertebral disc Lumbar spondylosis Lumbosacral spondylosis without myelopathy Scoliosis of lumbar spine, unspecified scoliosis type Chronic midline low back pain without sciatica DDD (degenerative disc disease), lumbar Degeneration of lumbar or lumbosacral intervertebral disc Lumbar spondylosis Lumbosacral spondylosis without myelopathy Scoliosis of lumbar spine, unspecified scoliosis type [facility] Diagnosis Type 2 diabetes mellitus with other specified complication, without long-term current use of insulin (HCC)- Primary Low vitamin B12 level Other B-complex deficiencies Vitamin D deficiency Unspecified vitamin D deficiency Elevated LDL cholesterol level Pure hypercholesterolemia Breast cancer screening by mammogram Colon cancer screening Special screening for malignant neoplasms, colon [facility] Diagnosis Rectal bleeding- Primary Hemorrhage of rectum and anus Colon cancer screening Special screening for malignant neoplasms, colon [facility] Diagnosis Breast cancer screening by mammogram [facility] Diagnosis COVID-19- Primary [facility] Diagnosis Rectal bleeding Hemorrhage of rectum and anus [facility] Diagnosis Status post total replacement of left hip [facility] Diagnosis Type 2 diabetes mellitus with other specified complication, without long-term current use of insulin ([facility])- Primary Low vitamin B12 level Other B-complex deficiencies Gastroesophageal reflux disease, unspecified whether esophagitis present Vitamin D deficiency Unspecified vitamin D deficiency Elevated LDL cholesterol level Pure hypercholesterolemia Encounter for immunization Need for other specified prophylactic vaccination against single bacterial disease documented in this encounter [facility]* Diagnosis Hammer toes of both feet- Primary documented in this encounter [facility]* Diagnosis Bursitis of other bursa of right hip- Primary Fall, sequela documented [facility] this [facility] Diagnosis Low vitamin B12 level Other B-complex deficiencies documented [facility]* Diagnosis Hip pain, left Pain in joint, pelvic region and thigh Cervical neck pain with evidence of disc disease Other and unspecified disc disorder of cervical region [facility] Diagnosis Status post total replacement of left hip [facility] Diagnosis Chronic pain of right hip- Primary S/P total left hip arthroplasty Multiple sclerosis ([facility]) Multiple sclerosis documented in this [facility]* Diagnosis Trochanteric bursitis of right hip- Primary Enthesopathy of hip region [facility] this [facility] Diagnosis Trochanteric bursitis of right hip- Primary Enthesopathy of hip region Primary osteoarthritis of right hip Primary localized osteoarthrosis, pelvic region and thigh [facility] Diagnosis Trochanteric bursitis of right hip- Primary Enthesopathy of hip region [facility] Diagnosis Trochanteric bursitis of right hip- Primary Enthesopathy of hip region [facility] Diagnosis Trochanteric bursitis of right hip- Primary Enthesopathy of hip region [facility] Diagnosis Type 2 diabetes mellitus with other specified complication, without long-term current use of insulin ([facility])- Primary Vitamin D deficiency Unspecified vitamin D deficiency Encounter for long-term current use of medication Elevated LDL cholesterol level Pure hypercholesterolemia Status post total replacement of left hip Leg lesion, left Gastroesophageal reflux disease, unspecified whether esophagitis present documented in this encounter [facility]* Diagnosis Trochanteric bursitis of right hip- Primary Enthesopathy of hip region [facility] Diagnosis Trochanteric bursitis of right hip- Primary Enthesopathy of hip region Pain of right hip Fall, initial encounter [facility] Diagnosis Coccyx pain- Primary Other disorder of coccyx Primary osteoarthritis of right hip Primary localized osteoarthrosis, pelvic region and thigh [facility] Diagnosis Osteonecrosis of right hip (HCC)- Primary [facility] Diagnosis Presence of right artificial hip joint- Primary Hip joint replacement by other means Osteonecrosis of right hip (HCC) Preoperative examination Preoperative examination, unspecified [facility] Diagnosis Osteonecrosis of right hip (HCC)- Primary [facility] Diagnosis Osteonecrosis of right hip (HCC)- Primary Pre-op testing Preoperative examination, unspecified Controlled type 2 diabetes mellitus without complication, without long-term current use of insulin (HCC) [facility]* Diagnosis Osteonecrosis of right hip (HCC)- Primary Osteonecrosis of right hip (HCC) [facility]* Diagnosis Osteonecrosis of right hip (HCC)- Primary Osteonecrosis of right hip (HCC) [facility]* Diagnosis Sore throat- Primary Acute pharyngitis Osteonecrosis of right hip (HCC) [facility]* Diagnosis Encounter for immunization- Primary Need for other specified prophylactic vaccination against single bacterial disease Status post right hip replacement Hip joint replacement by other means Acute blood loss anemia Acute posthemorrhagic anemia Osteonecrosis of right hip (HCC) Blood loss anemia Iron deficiency anemia secondary to blood loss (chronic) Type 2 diabetes mellitus with other specified complication, without long-term current use of insulin (HCC) Gastroesophageal reflux disease, unspecified whether esophagitis present [facility]* Diagnosis Status post hip replacement, right- Primary SI (sacroiliac) joint inflammation (HCC) Sacroiliitis, not elsewhere classified Chronic midline low back pain without sciatica [facility]* Diagnosis Status post hip replacement, right- Primary Abnormality of gait [facility]* Diagnosis Status post hip replacement, right- Primary Abnormality of gait Trochanteric bursitis of right hip Enthesopathy of hip region [facility] Diagnosis Status post hip replacement, right- Primary Weakness of both hips Abnormality of gait [facility] Status post hip replacement, right- Primary Weakness of both hips [facility] Diagnosis Type 2 diabetes mellitus without complication, without long-term current use of insulin ([facility])- Primary Vitamin D deficiency Unspecified vitamin D deficiency Elevated LDL cholesterol level Pure hypercholesterolemia Chronic midline low back pain without sciatica Encounter for long-term current use of medication Multiple sclerosis (HCC) Multiple sclerosis SI (sacroiliac) joint inflammation (HCC) Sacroiliitis, not elsewhere classified S/P hip replacement, bilateral [facility] Diagnosis Low vitamin B12 level Other B-complex deficiencies [facility] Diagnosis COVID-19 virus infection- Primary [facility]* Diagnosis Type 2 diabetes mellitus without complication, without long-term current use of insulin ([facility])- Primary Vitamin D deficiency Unspecified vitamin D deficiency Primary osteoarthritis of both hips Primary localized osteoarthrosis, pelvic region and thigh Chronic midline low back pain without sciatica Elevated LDL cholesterol level Pure hypercholesterolemia [facility] Diagnosis Acute pain of left knee- Primary Contusion of left knee, initial encounter Strain of left quadriceps, initial encounter Type 2 diabetes mellitus with other specified complication, without long-term current use of insulin ([facility]) [facility] Diagnosis Pain- Primary Generalized pain [facility] Diagnosis Pain- Primary Generalized pain [facility] Diagnosis Primary osteoarthritis of left knee- Primary Primary localized osteoarthrosis, lower leg Prepatellar effusion of left knee [facility] Diagnosis Status post total replacement of left hip- Primary Status post hip replacement, right Fall, initial encounter [facility] Diagnosis Pre-operative examination- Primary Preoperative examination, unspecified Primary osteoarthritis of left hip Primary localized osteoarthrosis, pelvic region and thigh Abnormal EKG Nonspecific abnormal electrocardiogram (ECG) (EKG) Multiple sclerosis (HCC) Multiple sclerosis Type 2 diabetes mellitus with other specified complication, without long-term current use of insulin (HCC) Gastroesophageal reflux disease, unspecified whether esophagitis present Osteopenia, unspecified location Pre-operative examination- Primary Preoperative examination, unspecified Multiple sclerosis (HCC) Multiple sclerosis Type 2 diabetes mellitus with other specified complication, without long-term current use of insulin (HCC) Gastroesophageal reflux disease, unspecified whether esophagitis present Primary osteoarthritis of both hips Primary localized osteoarthrosis, pelvic region and thigh Former smoker Personal history of tobacco use, presenting hazards to health Near syncope- Primary Syncope and collapse Episodic lightheadedness Dizziness and giddiness documented in this encounter [facility]* Diagnosis Pre-operative examination- Primary Preoperative examination, unspecified Primary osteoarthritis of left hip Primary localized osteoarthrosis, pelvic region and thigh Abnormal EKG Nonspecific abnormal electrocardiogram (ECG) (EKG) Multiple sclerosis (HCC) Multiple sclerosis Type 2 diabetes mellitus with other specified complication, without long-term current use of insulin (HCC) Gastroesophageal reflux disease, unspecified whether esophagitis present Osteopenia, unspecified location Pre-operative examination- Primary Preoperative examination, unspecified Multiple sclerosis (HCC) Multiple sclerosis Type 2 diabetes mellitus with other specified complication, without long-term current use of insulin (HCC) Gastroesophageal reflux disease, unspecified whether esophagitis present Primary osteoarthritis of both hips Primary localized osteoarthrosis, pelvic region and thigh Former smoker Personal history of tobacco use, presenting hazards to health Acute pain of left knee Contusion of left knee, initial encounter documented in this encounter [facility] note* Diagnosis Pre-operative examination- Primary Preoperative examination, unspecified Primary osteoarthritis of left hip Primary localized osteoarthrosis, pelvic region and thigh Abnormal EKG Nonspecific abnormal electrocardiogram (ECG) (EKG) Multiple sclerosis (HCC) Multiple sclerosis Type 2 diabetes mellitus with other specified complication, without long-term current use of insulin (HCC) Gastroesophageal reflux disease, unspecified whether esophagitis present Osteopenia, unspecified location Pre-operative examination- Primary Preoperative examination, unspecified Multiple sclerosis (HCC) Multiple sclerosis Type 2 diabetes mellitus with other specified complication, without long-term current use of insulin (HCC) Gastroesophageal reflux disease, unspecified whether esophagitis present Primary osteoarthritis of both hips Primary localized osteoarthrosis, pelvic region and thigh Former smoker Personal history of tobacco use, presenting hazards to health Pain in left hip Pain in joint, pelvic region and thigh documented in this encounter [facility] note* Diagnosis Pre-operative examination- Primary Preoperative examination, unspecified Primary osteoarthritis of left hip Primary localized osteoarthrosis, pelvic region and thigh Abnormal EKG Nonspecific abnormal electrocardiogram (ECG) (EKG) Multiple sclerosis (HCC) Multiple sclerosis Type 2 diabetes mellitus with other specified complication, without long-term current use of insulin (HCC) Gastroesophageal reflux disease, unspecified whether esophagitis present Osteopenia, unspecified location Pre-operative examination- Primary Preoperative examination, unspecified Multiple sclerosis (HCC) Multiple sclerosis Type 2 diabetes mellitus with other specified complication, without long-term current use of insulin (HCC) Gastroesophageal reflux disease, unspecified whether esophagitis present Primary osteoarthritis of both hips Primary localized osteoarthrosis, pelvic region and thigh Former smoker Personal history of tobacco use, presenting hazards to health Status post hip replacement, right documented in this encounter [facility] note* Diagnosis Pre-operative examination- Primary Preoperative examination, unspecified Primary osteoarthritis of left hip Primary localized osteoarthrosis, pelvic region and thigh Abnormal EKG Nonspecific abnormal electrocardiogram (ECG) (EKG) Multiple sclerosis (HCC) Multiple sclerosis Type 2 diabetes mellitus with other specified complication, without long-term current use of insulin (HCC) Gastroesophageal reflux disease, unspecified whether esophagitis present Osteopenia, unspecified location Pre-operative examination- Primary Preoperative examination, unspecified Multiple sclerosis (HCC) Multiple sclerosis Type 2 diabetes mellitus with other specified complication, without long-term current use of insulin (HCC) Gastroesophageal reflux disease, unspecified whether esophagitis present Primary osteoarthritis of both hips Primary localized osteoarthrosis, pelvic region and thigh Former smoker Personal history of tobacco use, presenting hazards to health Status post right hip replacement Hip joint replacement by other means documented in this encounter [facility] note* Diagnosis Pre-operative examination- Primary Preoperative examination, unspecified Primary osteoarthritis of left hip Primary localized osteoarthrosis, pelvic region and thigh Abnormal EKG Nonspecific abnormal electrocardiogram (ECG) (EKG) Multiple sclerosis (HCC) Multiple sclerosis Type 2 diabetes mellitus with other specified complication, without long-term current use of insulin (HCC) Gastroesophageal reflux disease, unspecified whether esophagitis present Osteopenia, unspecified location Trochanteric bursitis of right hip Enthesopathy of hip region Pain of right hip Fall, initial encounter Pre-operative examination- Primary Preoperative examination, unspecified Multiple sclerosis (HCC) Multiple sclerosis Type 2 diabetes mellitus with other specified complication, without long-term current use of insulin (HCC) Gastroesophageal reflux disease, unspecified whether esophagitis present Primary osteoarthritis of both hips Primary localized osteoarthrosis, pelvic region and thigh Former smoker Personal history of tobacco use, presenting hazards to health documented [facility] this encounter [facility]* Diagnosis Pre-operative examination- Primary Preoperative examination, unspecified Primary osteoarthritis of left hip Primary localized osteoarthrosis, pelvic region and thigh Abnormal EKG Nonspecific abnormal electrocardiogram (ECG) (EKG) Multiple sclerosis (HCC) Multiple sclerosis Type 2 diabetes mellitus with other specified complication, without long-term current use of insulin (HCC) Gastroesophageal reflux disease, unspecified whether esophagitis present Osteopenia, unspecified location Pain in right hip Pain in joint, pelvic region and thigh Pre-operative examination- Primary Preoperative examination, unspecified Multiple sclerosis (HCC) Multiple sclerosis Type 2 diabetes mellitus with other specified complication, without long-term current use of insulin (HCC) Gastroesophageal reflux disease, unspecified whether esophagitis present Primary osteoarthritis of both hips Primary localized osteoarthrosis, pelvic region and thigh Former smoker Personal history of tobacco use, presenting hazards to health documented in this encounter [facility] note* Diagnosis Pre-operative examination- Primary Preoperative examination, unspecified Primary osteoarthritis of left hip Primary localized osteoarthrosis, pelvic region and thigh Abnormal EKG Nonspecific abnormal electrocardiogram (ECG) (EKG) Multiple sclerosis (HCC) Multiple sclerosis Type 2 diabetes mellitus with other specified complication, without long-term current use of insulin (HCC) Gastroesophageal reflux disease, unspecified whether esophagitis present Osteopenia, unspecified location Bursitis of other bursa of right hip Pre-operative examination- Primary Preoperative examination, unspecified Multiple sclerosis (HCC) Multiple sclerosis Type 2 diabetes mellitus with other specified complication, without long-term current use of insulin (HCC) Gastroesophageal reflux disease, unspecified whether esophagitis present Primary osteoarthritis of both hips Primary localized osteoarthrosis, pelvic region and thigh Former smoker Personal history of tobacco use, presenting hazards to health documented in this encounter [facility] note* Diagnosis Pre-operative examination- Primary Preoperative examination, unspecified Primary osteoarthritis of left hip Primary localized osteoarthrosis, pelvic region and thigh Abnormal EKG Nonspecific abnormal electrocardiogram (ECG) (EKG) Multiple sclerosis (HCC) Multiple sclerosis Type 2 diabetes mellitus with other specified complication, without long-term current use of insulin (HCC) Gastroesophageal reflux disease, unspecified whether esophagitis present Osteopenia, unspecified location Acquired hammer toe Other hammer toe (acquired) Pre-operative examination- Primary Preoperative examination, unspecified Multiple sclerosis (HCC) Multiple sclerosis Type 2 diabetes mellitus with other specified complication, without long-term current use of insulin (HCC) Gastroesophageal reflux disease, unspecified whether esophagitis present Primary osteoarthritis of both hips Primary localized osteoarthrosis, pelvic region and thigh Former smoker Personal history of tobacco use, presenting hazards to health documented in this encounter [facility] note* Diagnosis Pre-operative examination- Primary Preoperative examination, unspecified Primary osteoarthritis of left hip Primary localized osteoarthrosis, pelvic region and thigh Abnormal EKG Nonspecific abnormal electrocardiogram (ECG) (EKG) Multiple sclerosis (HCC) Multiple sclerosis Type 2 diabetes mellitus with other specified complication, without long-term current use of insulin (HCC) Gastroesophageal reflux disease, unspecified whether esophagitis present Osteopenia, unspecified location Pre-operative examination- Primary Preoperative examination, unspecified Multiple sclerosis (HCC) Multiple sclerosis Type 2 diabetes mellitus with other specified complication, without long-term current use of insulin (HCC) Gastroesophageal reflux disease, unspecified whether esophagitis present Primary osteoarthritis of both hips Primary localized osteoarthrosis, pelvic region and thigh Former smoker Personal history of tobacco use, presenting hazards to health Status post hip replacement, right- Primary documented in this encounter [facility] note* Diagnosis Pre-operative examination- Primary Preoperative examination, unspecified Primary osteoarthritis of left hip Primary localized osteoarthrosis, pelvic region and thigh Abnormal EKG Nonspecific abnormal electrocardiogram (ECG) (EKG) Multiple sclerosis (HCC) Multiple sclerosis Type 2 diabetes mellitus with other specified complication, without long-term current use of insulin (HCC) Gastroesophageal reflux disease, unspecified whether esophagitis present Osteopenia, unspecified location Pre-operative examination- Primary Preoperative examination, unspecified Multiple sclerosis (HCC) Multiple sclerosis Type 2 diabetes mellitus with other specified complication, without long-term current use of insulin (HCC) Gastroesophageal reflux disease, unspecified whether esophagitis present Primary osteoarthritis of both hips Primary localized osteoarthrosis, pelvic region and thigh Former smoker Personal history of tobacco use, presenting hazards to health Postural dizziness with presyncope- Primary SOB (shortness of breath) Shortness of breath Throat tightness Other symptoms involving head and neck Former smoker Personal history of tobacco use, presenting hazards to health Abnormal EKG Nonspecific abnormal electrocardiogram (ECG) (EKG) Type 2 diabetes mellitus with other specified complication, without long-term current use of insulin (HCC) Elevated LDL cholesterol level Pure hypercholesterolemia Abnormal finding of blood chemistry, unspecified documented in this encounter [facility] note* Diagnosis Pre-operative examination- Primary Preoperative examination, unspecified Primary osteoarthritis of left hip Primary localized osteoarthrosis, pelvic region and thigh Abnormal EKG Nonspecific abnormal electrocardiogram (ECG) (EKG) Multiple sclerosis (HCC) Multiple sclerosis Type 2 diabetes mellitus with other specified complication, without long-term current use of insulin (HCC) Gastroesophageal reflux disease, unspecified whether esophagitis present Osteopenia, unspecified location Pre-operative examination- Primary Preoperative examination, unspecified Multiple sclerosis (HCC) Multiple sclerosis Type 2 diabetes mellitus with other specified complication, without long-term current use of insulin (HCC) Gastroesophageal reflux disease, unspecified whether esophagitis present Primary osteoarthritis of both hips Primary localized osteoarthrosis, pelvic region and thigh Former smoker Personal history of tobacco use, presenting hazards to health Status post hip replacement, right- Primary documented in this encounter [facility] note* Diagnosis Pre-operative examination- Primary Preoperative examination, unspecified Primary osteoarthritis of left hip Primary localized osteoarthrosis, pelvic region and thigh Abnormal EKG Nonspecific abnormal electrocardiogram (ECG) (EKG) Multiple sclerosis (HCC) Multiple sclerosis Type 2 diabetes mellitus with other specified complication, without long-term current use of insulin (HCC) Gastroesophageal reflux disease, unspecified whether esophagitis present Osteopenia, unspecified location Pre-operative examination- Primary Preoperative examination, unspecified Multiple sclerosis (HCC) Multiple sclerosis Type 2 diabetes mellitus with other specified complication, without long-term current use of insulin (HCC) Gastroesophageal reflux disease, unspecified whether esophagitis present Primary osteoarthritis of both hips Primary localized osteoarthrosis, pelvic region and thigh Former smoker Personal history of tobacco use, presenting hazards to health Status post hip replacement, right documented in this encounter [facility] note* Diagnosis Pre-operative examination- Primary Preoperative examination, unspecified Primary osteoarthritis of left hip Primary localized osteoarthrosis, pelvic region and thigh Abnormal EKG Nonspecific abnormal electrocardiogram (ECG) (EKG) Multiple sclerosis (HCC) Multiple sclerosis Type 2 diabetes mellitus with other specified complication, without long-term current use of insulin (HCC) Gastroesophageal reflux disease, unspecified whether esophagitis present Osteopenia, unspecified location Pre-operative examination- Primary Preoperative examination, unspecified Multiple sclerosis (HCC) Multiple sclerosis Type 2 diabetes mellitus with other specified complication, without long-term current use of insulin (HCC) Gastroesophageal reflux disease, unspecified whether esophagitis present Primary osteoarthritis of both hips Primary localized osteoarthrosis, pelvic region and thigh Former smoker Personal history of tobacco use, presenting hazards to health Paroxysmal SVT (supraventricular tachycardia) (HCC)- Primary Paroxysmal supraventricular tachycardia Postural dizziness with presyncope Type 2 diabetes mellitus with other specified complication, without long-term current use of insulin (HCC) Primary osteoarthritis of both hips Primary localized osteoarthrosis, pelvic region and thigh Screening for depression Encounter for screening examination for other mental health and behavioral disorders documented in this encounter [facility] note* Diagnosis Pre-operative examination- Primary Preoperative examination, unspecified Primary osteoarthritis of left hip Primary localized osteoarthrosis, pelvic region and thigh Abnormal EKG Nonspecific abnormal electrocardiogram (ECG) (EKG) Multiple sclerosis (HCC) Multiple sclerosis Type 2 diabetes mellitus with other specified complication, without long-term current use of insulin (HCC) Gastroesophageal reflux disease, unspecified whether esophagitis present Osteopenia, unspecified location Pre-operative examination- Primary Preoperative examination, unspecified Multiple sclerosis (HCC) Multiple sclerosis Type 2 diabetes mellitus with other specified complication, without long-term current use of insulin (HCC) Gastroesophageal reflux disease, unspecified whether esophagitis present Primary osteoarthritis of both hips Primary localized osteoarthrosis, pelvic region and thigh Former smoker Personal history of tobacco use, presenting hazards to health SVT (supraventricular tachycardia) (HCC)- Primary Other specified cardiac dysrhythmias documented in this encounter [facility] note* Diagnosis Pre-operative examination- Primary Preoperative examination, unspecified Primary osteoarthritis of left hip Primary localized osteoarthrosis, pelvic region and thigh Abnormal EKG Nonspecific abnormal electrocardiogram (ECG) (EKG) Multiple sclerosis (HCC) Multiple sclerosis Type 2 diabetes mellitus with other specified complication, without long-term current use of insulin (HCC) Gastroesophageal reflux disease, unspecified whether esophagitis present Osteopenia, unspecified location Pre-operative examination- Primary Preoperative examination, unspecified Multiple sclerosis (HCC) Multiple sclerosis Type 2 diabetes mellitus with other specified complication, without long-term current use of insulin (HCC) Gastroesophageal reflux disease, unspecified whether esophagitis present Primary osteoarthritis of both hips Primary localized osteoarthrosis, pelvic region and thigh Former smoker Personal history of tobacco use, presenting hazards to health Paroxysmal SVT (supraventricular tachycardia) (HCC)- Primary Paroxysmal supraventricular tachycardia Multiple sclerosis (HCC) Multiple sclerosis Former smoker Personal history of tobacco use, presenting hazards to health Postural dizziness with presyncope documented in this encounter [facility] note* Diagnosis Pre-operative examination- Primary Preoperative examination, unspecified Primary osteoarthritis of left hip Primary localized osteoarthrosis, pelvic region and thigh Abnormal EKG Nonspecific abnormal electrocardiogram (ECG) (EKG) Multiple sclerosis (HCC) Multiple sclerosis Type 2 diabetes mellitus with other specified complication, without long-term current use of insulin (HCC) Gastroesophageal reflux disease, unspecified whether esophagitis present Osteopenia, unspecified location Pre-operative examination- Primary Preoperative examination, unspecified Multiple sclerosis (HCC) Multiple sclerosis Type 2 diabetes mellitus with other specified complication, without long-term current use of insulin (HCC) Gastroesophageal reflux disease, unspecified whether esophagitis present Primary osteoarthritis of both hips Primary localized osteoarthrosis, pelvic region and thigh Former smoker Personal history of tobacco use, presenting hazards to health S/P catheter ablation of slow pathway- Primary Other postprocedural status Paroxysmal SVT (supraventricular tachycardia) (HCC) Paroxysmal supraventricular tachycardia Typical atrial flutter (HCC) Atrial flutter documented in this encounter [facility] note* Diagnosis Pre-operative examination- Primary Preoperative examination, unspecified Primary osteoarthritis of left hip Primary localized osteoarthrosis, pelvic region and thigh Abnormal EKG Nonspecific abnormal electrocardiogram (ECG) (EKG) Multiple sclerosis (HCC) Multiple sclerosis Type 2 diabetes mellitus with other specified complication, without long-term current use of insulin (HCC) Gastroesophageal reflux disease, unspecified whether esophagitis present Osteopenia, unspecified location Pre-operative examination- Primary Preoperative examination, unspecified Multiple sclerosis (HCC) Multiple sclerosis Type 2 diabetes mellitus with other specified complication, without long-term current use of insulin (HCC) Gastroesophageal reflux disease, unspecified whether esophagitis present Primary osteoarthritis of both hips Primary localized osteoarthrosis, pelvic region and thigh Former smoker Personal history of tobacco use, presenting hazards to health Postural dizziness with presyncope- Primary S/P catheter ablation of slow pathway Other postprocedural status Typical atrial flutter (HCC) Atrial flutter documented in this encounter [facility] note* Diagnosis Pre-operative examination- Primary Preoperative examination, unspecified Primary osteoarthritis of left hip Primary localized osteoarthrosis, pelvic region and thigh Abnormal EKG Nonspecific abnormal electrocardiogram (ECG) (EKG) Multiple sclerosis (HCC) Multiple sclerosis Type 2 diabetes mellitus with other specified complication, without long-term current use of insulin (HCC) Gastroesophageal reflux disease, unspecified whether esophagitis present Osteopenia, unspecified location Pre-operative examination- Primary Preoperative examination, unspecified Multiple sclerosis (HCC) Multiple sclerosis Type 2 diabetes mellitus with other specified complication, without long-term current use of insulin (HCC) Gastroesophageal reflux disease, unspecified whether esophagitis present Primary osteoarthritis of both hips Primary localized osteoarthrosis, pelvic region and thigh Former smoker Personal history of tobacco use, presenting hazards to health Type 2 diabetes mellitus with other specified complication, without long-term current use of insulin (HCC)- Primary Fecal incontinence with incomplete defecation Age-related osteoporosis without current pathological fracture 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 Other postprocedural status Vitamin D deficiency Unspecified vitamin D deficiency Low vitamin B12 level Other B-complex deficiencies Other idiopathic scoliosis, thoracolumbar region Asymptomatic postmenopausal status [facility] Diagnosis Pre-operative examination- Primary Preoperative examination, unspecified Primary osteoarthritis of left hip Primary localized osteoarthrosis, pelvic region and thigh Abnormal EKG Nonspecific abnormal electrocardiogram (ECG) (EKG) Multiple sclerosis (HCC) Multiple sclerosis Type 2 diabetes mellitus with other specified complication, without long-term current use of insulin (HCC) Gastroesophageal reflux disease, unspecified whether esophagitis present Osteopenia, unspecified location Pre-operative examination- Primary Preoperative examination, unspecified Multiple sclerosis (HCC) Multiple sclerosis Type 2 diabetes mellitus with other specified complication, without long-term current use of insulin (HCC) Gastroesophageal reflux disease, unspecified whether esophagitis present Primary osteoarthritis of both hips Primary localized osteoarthrosis, pelvic region and thigh Former smoker Personal history of tobacco use, presenting hazards to health Encounter for immunization Need for other specified prophylactic vaccination against single bacterial disease [facility] Diagnosis Pre-operative examination- Primary Preoperative examination, unspecified Primary osteoarthritis of left hip Primary localized osteoarthrosis, pelvic region and thigh Abnormal EKG Nonspecific abnormal electrocardiogram (ECG) (EKG) Multiple sclerosis (HCC) Multiple sclerosis Type 2 diabetes mellitus with other specified complication, without long-term current use of insulin (HCC) Gastroesophageal reflux disease, unspecified whether esophagitis present Osteopenia, unspecified location Pre-operative examination- Primary Preoperative examination, unspecified Multiple sclerosis (HCC) Multiple sclerosis Type 2 diabetes mellitus with other specified complication, without long-term current use of insulin (HCC) Gastroesophageal reflux disease, unspecified whether esophagitis present Primary osteoarthritis of both hips Primary localized osteoarthrosis, pelvic region and thigh Former smoker Personal history of tobacco use, presenting hazards to health Paroxysmal SVT (supraventricular tachycardia) (HCC)- Primary Paroxysmal supraventricular tachycardia Typical atrial flutter (HCC) Atrial flutter S/P catheter ablation of slow pathway Other postprocedural status S/P ablation of atrial flutter Other postprocedural status At risk for stroke Other specified personal history presenting hazards to health documented in this encounter [facility] note* Diagnosis Pre-operative examination- Primary Preoperative examination, unspecified Primary osteoarthritis of left hip Primary localized osteoarthrosis, pelvic region and thigh Abnormal EKG Nonspecific abnormal electrocardiogram (ECG) (EKG) Multiple sclerosis (HCC) Multiple sclerosis Type 2 diabetes mellitus with other specified complication, without long-term current use of insulin (HCC) Gastroesophageal reflux disease, unspecified whether esophagitis present Osteopenia, unspecified location Pre-operative examination- Primary Preoperative examination, unspecified Multiple sclerosis (HCC) Multiple sclerosis Type 2 diabetes mellitus with other specified complication, without long-term current use of insulin (HCC) Gastroesophageal reflux disease, unspecified whether esophagitis present Primary osteoarthritis of both hips Primary localized osteoarthrosis, pelvic region and thigh Former smoker Personal history of tobacco use, presenting hazards to health Skin erythema- Primary Unspecified erythematous condition Insect bite of right thigh, initial encounter documented in this encounter [facility] note* Diagnosis Pre-operative examination- Primary Preoperative examination, unspecified Primary osteoarthritis of left hip Primary localized osteoarthrosis, pelvic region and thigh Abnormal EKG Nonspecific abnormal electrocardiogram (ECG) (EKG) Multiple sclerosis (HCC) Multiple sclerosis Type 2 diabetes mellitus with other specified complication, without long-term current use of insulin (HCC) Gastroesophageal reflux disease, unspecified whether esophagitis present Osteopenia, unspecified location Pre-operative examination- Primary Preoperative examination, unspecified Multiple sclerosis (HCC) Multiple sclerosis Type 2 diabetes mellitus with other specified complication, without long-term current use of insulin (HCC) Gastroesophageal reflux disease, unspecified whether esophagitis present Primary osteoarthritis of both hips Primary localized osteoarthrosis, pelvic region and thigh Former smoker Personal history of tobacco use, presenting hazards to health Paroxysmal SVT (supraventricular tachycardia) (HCC) Paroxysmal supraventricular tachycardia Typical atrial flutter (HCC) Atrial flutter documented in this encounter [facility] note* Diagnosis Pre-operative examination- Primary Preoperative examination, unspecified Primary osteoarthritis of left hip Primary localized osteoarthrosis, pelvic region and thigh Abnormal EKG Nonspecific abnormal electrocardiogram (ECG) (EKG) Multiple sclerosis (HCC) Multiple sclerosis Type 2 diabetes mellitus with other specified complication, without long-term current use of insulin (HCC) Gastroesophageal reflux disease, unspecified whether esophagitis present Osteopenia, unspecified location Pre-operative examination- Primary Preoperative examination, unspecified Multiple sclerosis (HCC) Multiple sclerosis Type 2 diabetes mellitus with other specified complication, without long-term current use of insulin (HCC) Gastroesophageal reflux disease, unspecified whether esophagitis present Primary osteoarthritis of both hips Primary localized osteoarthrosis, pelvic region and thigh Former smoker Personal history of tobacco use, presenting hazards to health Asymptomatic postmenopausal status documented in this encounter [facility] note* Diagnosis Pre-operative examination- Primary Preoperative examination, unspecified Primary osteoarthritis of left hip Primary localized osteoarthrosis, pelvic region and thigh Abnormal EKG Nonspecific abnormal electrocardiogram (ECG) (EKG) Multiple sclerosis (HCC) Multiple sclerosis Type 2 diabetes mellitus with other specified complication, without long-term current use of insulin (HCC) Gastroesophageal reflux disease, unspecified whether esophagitis present Osteopenia, unspecified location Pre-operative examination- Primary Preoperative examination, unspecified Multiple sclerosis (HCC) Multiple sclerosis Type 2 diabetes mellitus with other specified complication, without long-term current use of insulin (HCC) Gastroesophageal reflux disease, unspecified whether esophagitis present Primary osteoarthritis of both hips Primary localized osteoarthrosis, pelvic region and thigh Former smoker Personal history of tobacco use, presenting hazards to health Type 2 diabetes mellitus with other specified complication, without long-term current use of insulin (HCC)- Primary Paroxysmal SVT (supraventricular tachycardia) (HCC) Paroxysmal supraventricular tachycardia Status post hip replacement, right Status post left hip replacement Hip joint replacement by other means Chronic bilateral low back pain without sciatica Other idiopathic scoliosis, thoracolumbar region documented in this encounter [facility] note* Diagnosis Onset Date Resolution Status Admit Date Aortic valve insufficiency chronic April 20, 2025 1:05pm Mitral regurgitation chronic April 20, 2025 1:05pm Pre-syncope chronic April 20 1:05pm SVT (supraventricular tachycardia) chronic April 20, 2025 1:05pm Type 2 diabetes mellitus chronic April 20, 2025 1:05pm [place] [facility] Work Phone: [facility] for referral (narrative)* Diagnostic Procedure Only (Routine) - Pending Review Specialty Diagnoses / Procedures Referred By Contac t Referred To Contact XR IMAGING Diagnoses Pain in left hip Procedures XR PELVIS 1V AP RADIOLOGIC EXAMINATION PELVIS 1/2 VIEWS Fredy Carrasco APRN.MORTGAGE LOAN ASSISTANT [address] [facility], [address] [place] [id number] Xr Imaging Referral ID Status Reason Start Date Expiration Date Visits Requested Visits Authorized [id number] Pending Review Auto-Generat ed Referral 01/16/2022 02/15/2023 1 1 [facility] for referral (narrative)* Outpatient Procedure (Routine) - Authorized Specialty Diagnoses / Procedures Referred By Contac t Referred To Contact [facility] Diagnoses Rectal bleeding Procedures COLONOSCOPY DIAGNOSTIC COLONOSCOPY FLX DX W/COLLJ SPEC WHEN Nuha Boyle MD [address] [facility] [place] [address] [facility] [place] [address] [place] [address] Referral ID Status Reason Start Date Expiration Date Visits Requested Visits Authorized [id number] Authorized Auto-Generat ed Referral 03/05/2022 03/05/2023 1 1 [facility] for referral (narrative)* Outpatient Procedure (Routine) - Closed Specialty Diagnoses / Procedures Referred By Contac t Referred To Contact [facility] Diagnoses Rectal bleeding Procedures COLONOSCOPY DIAGNOSTIC COLONOSCOPY FLX DX W/COLLJ SPEC WHEN Nuha Boyle MD [address] [facility] [address] [facility] [place] [address] [place] [address] Referral ID Status Reason Start Date Expiration Date V isits Requested Visits Authorized [id number] Closed Auto-Generate d Referral 03/05/2022 03/05/2023 1 1 [facility] for referral (narrative)* Diagnostic Procedure Only (Routine) - Closed Specialty Diagnoses / Procedures Referred By Contac t Referred To Contact XR IMAGING Diagnoses Bursitis of other bursa of right hip Procedures XR HIP GENERAL 3V PELV/AP/LAT RIGHT RADEX HIP UNILATERAL WITH PELVIS 2-3 VIEWS Linda Silva APRN.CNP [address] [id number] Xr Imaging Referral ID Status Reason Start Date Expiration Date V isits Requested Visits Authorized [id number] Closed Auto-Generate d Referral 09/14/2022 10/14/2023 1 1 [facility] for referral (narrative)* Diagnostic Procedure Only (Routine) - Closed Specialty Diagnoses / Procedures Referred By Contac t Referred To Contact XR IMAGING Diagnoses Acute pain of left knee Contusion of left knee, initial encounter Procedures XR KNEE GENERAL 4V AP BOTH/PA BOTH/LAT/MERC LEFT RADIOLOGIC EXAM KNEE COMPLETE 4/MORE VIEWS Bg Chavarria MD [address] [place], [place] [id number] [place] [address] Referral ID Status Reason Start Date Expiration Date V isits Requested Visits Authorized [id number] Closed Auto-Generate d Referral 03/31/2024 04/30/2025 1 1 [facility] for referral (narrative)* Diagnostic Procedure Only (Routine) - Authorized Specialty Diagnoses / Procedures Referred By Contac t Referred To Contact XR IMAGING Diagnoses Pain Procedures XR HIP GENERAL 3V PELV/AP/LAT LEFT RADEX HIP UNILATERAL WITH PELVIS 2-3 VIEWS Lorena Jacobsen MD [address] [address] [place] [address] Referral ID Status Reason Start Date Expiration Date Visits Requested Visits Authorized [id number] Authorized Auto-Generat ed Referral 04/09/2024 05/09/2025 1 1 [facility] for referral (narrative)* Diagnostic Procedure Only (Routine) - New Request Specialty Diagnoses / Procedures Referred By Contac t Referred To Contact XR IMAGING Diagnoses Pain Procedures XR KNEE GENERAL 4V AP BOTH/PA BOTH/LAT/MERC LEFT RADIOLOGIC EXAM KNEE COMPLETE 4/MORE VIEWS Joe Jiang PA-C [address] [address] [place] [address] Referral ID Status Reason Start Date Expiration Date Visits Requested Visits Authorized [id number] New Request Auto-Generat ed Referral 04/28/2024 05/28/2025 1 1 [facility] for referral (narrative)* Diagnostic Procedure Only (Routine) - Closed Specialty Diagnoses / Procedures Referred By Contac t Referred To Contact XR IMAGING Diagnoses Acute pain of left knee Contusion of left knee, initial encounter Procedures XR KNEE GENERAL 4V AP BOTH/PA BOTH/LAT/MERC LEFT RADIOLOGIC EXAM KNEE COMPLETE 4/MORE VIEWS Bg Chavarria MD [facility] [place] [address] [place] [address] Referral ID Status Reason Start Date Expiration Date V isits Requested Visits Authorized [id number] Closed Auto-Generate d Referral 03/31/2024 04/30/2025 1 1 [facility] for referral (narrative)* Diagnostic Procedure Only (Routine) - Closed Specialty Diagnoses / Procedures Referred By Contac t Referred To Contact XR IMAGING Diagnoses Pain in left hip Procedures XR HIP 2V AP/LAT LEFT (AK,FL,ME,UN) RADEX HIP UNILATERAL WITH PELVIS 2-3 VIEWS Fredy Carrasco APRN.MORTGAGE LOAN ASSISTANT [address] [place] [address] [place] [address] Referral ID Status Reason Start Date Expiration Date V isits Requested Visits Authorized [id number] Closed Auto-Generate d Referral 04/16/2024 05/16/2025 1 1 [facility] for referral (narrative)* Diagnostic Procedure Only (Routine) - Closed Specialty Diagnoses / Procedures Referred By Contac t Referred To Contact XR IMAGING Diagnoses Status post hip replacement, right Procedures XR HIP GENERAL 3V PELV/AP/LAT RIGHT RADEX HIP UNILATERAL WITH PELVIS 2-3 VIEWS Sincere Hopkins MD [address] [place] [address] [place] [address] Referral ID Status Reason Start Date Expiration Date V isits Requested Visits Authorized [id number] Closed Auto-Generate d Referral 10/16/2023 11/14/2024 1 1 [facility] for referral (narrative)* Diagnostic Procedure Only (Routine) - Closed Specialty Diagnoses / Procedures Referred By Contac t Referred To Contact XR IMAGING Diagnoses Status post right hip replacement Procedures XR HIP GENERAL 3V PELV/AP/LAT RIGHT RADEX HIP UNILATERAL WITH PELVIS 2-3 VIEWS Joe Jiang PA-C [address] [address] [place] [address] Referral ID Status Reason Start Date Expiration Date V isits Requested Visits Authorized [id number] Closed Auto-Generate d Referral 07/08/2023 08/06/2024 1 1 [facility] for referral (narrative)* Diagnostic Procedure Only (Routine) - Closed Specialty Diagnoses / Procedures Referred By Contac t Referred To Contact XR IMAGING Diagnoses Trochanteric bursitis of right hip Pain of right hip Fall, initial encounter Procedures XR HIP GENERAL 3V PELV/AP/LAT RIGHT RADEX HIP UNILATERAL WITH PELVIS 2-3 VIEWS Linda Silva APRN.CNP [address] [place] [address] [place] [address] Referral ID Status Reason Start Date Expiration Date V isits Requested Visits Authorized [id number] Closed Auto-Generate d Referral 05/03/2023 06/01/2024 1 1 [facility] for referral (narrative)* Diagnostic Procedure Only (Routine) - Closed Specialty Diagnoses / Procedures Referred By Contac t Referred To Contact XR IMAGING Diagnoses Pain in right hip Procedures XR HIP 2V AP/LAT RIGHT (AK,FL,ME) RADEX HIP UNILATERAL WITH PELVIS 2-3 VIEWS James Marcano PA-C [address] [place] [address] [place] [address] Referral ID Status Reason Start Date Expiration Date V isits Requested Visits Authorized [id number] Closed Auto-Generate d Referral 02/05/2023 03/06/2024 1 1 [facility] for referral (narrative)* Diagnostic Procedure Only (Routine) - Closed Specialty Diagnoses / Procedures Referred By Contac t Referred To Contact XR IMAGING Diagnoses Bursitis of other bursa of right hip Procedures XR HIP GENERAL 3V PELV/AP/LAT RIGHT RADEX HIP UNILATERAL WITH PELVIS 2-3 VIEWS Linda Silva APRN.CNP [address] [place] [address] [place] [address] Referral ID Status Reason Start Date Expiration Date V isits Requested Visits Authorized [id number] Closed Auto-Generate d Referral 09/14/2022 10/14/2023 1 1 [facility] for referral (narrative)* Diagnostic Procedure Only (Routine) - Closed Specialty Diagnoses / Procedures Referred By Contac t Referred To Contact XR IMAGING Diagnoses Acquired hammer toe Procedures XR FOOT GENERAL 3V AP/LAT/OBL BILATERAL RADEX FOOT COMPLETE MINIMUM 3 VIEWS Elton Koch [address] [place] [address] [place] [address] Referral ID Status Reason Start Date Expiration Date V isits Requested Visits Authorized [id number] Closed Auto-Generate d Referral 09/05/2022 10/05/2023 1 1 [facility] for referral (narrative)* Diagnostic Procedure Only (Routine) - New Request Specialty Diagnoses / [facility] To Contact X[facility] Diagnoses Status post hip replacement, right Procedures XR HIP GENERAL 3V PELV/AP/LAT RIGHT RADEX HIP UNILATERAL WITH PELVIS 2-3 VIEWS Sincere Hopkins MD [address] [place] [address] Xr Imaging [facility] Referral ID Status Reason Start Date Expiration Date Visits Requested Visits Authorized [id number] New Request Auto-Generat ed Referral 07/03/2024 08/02/2025 1 1 [facility] for referral (narrative)No reason for referral information [facility] Work Phone: Reason for visit Narrative* Auth/Cert Specialty Diagnoses / Procedures [facility] Referred To Contact Diagnoses Chronic midline low back pain without sciatica DDD (degenerative disc disease), lumbar Lumbar spondylosis Scoliosis of lumbar spine, unspecified scoliosis type Procedures DSTR NROLYTC AGNT PARVERTEB FCT SNGL LMBR/SACRAL DSTR NROLYTC AGNT PARVERTEB FCT ADDL LMBR/SACRAL DESTRUCTION BY NEUROLYTIC AGENT PARAVERTEBRAL FACET JOINT NERVE(S) W/ IMAGING GUIDANCE LUMBAR SINGLE FACET JOINT DESTRUCTION BY NEUROLYTIC AGENT PARAVERTEBRAL FACET JOINT NERVE(S) W/ IMAGING GUIDANCE LUMBAR SACRAL 1ST ADD FACET JOINT [facility] [address] [place] [address] Referral ID Status Reason Start Date Expiration Date Visits Re quested Visits Authorized [id number] 1 1 [facility] for visit Narrative* Outpatient Procedure (Routine) - Closed Specialty Diagnoses / Procedures [facility]erred To Contact [facility] Diagnoses Rectal bleeding Procedures COLONOSCOPY DIAGNOSTIC COLONOSCOPY FLX DX W/COLLJ SPEC WHEN [facility] Nuha Saab Trang, MD [address] [place] [address] [facility] [place] [address] [place] [address] Referral ID Status Reason Start Date Expiration Date V isits Requested Visits Authorized [id number] Closed Auto-Generate d Referral 03/05/2022 03/05/2023 1 1 [facility] [facility] for visit Narrative* Diagnostic Procedure Only (Routine) - Closed Specialty Diagnoses / Procedures Referred By Contac t Referred To Contact XR IMAGING Diagnoses Acute pain of left knee Contusion of left knee, initial encounter Procedures XR KNEE GENERAL 4V AP BOTH/PA BOTH/LAT/MERC LEFT RADIOLOGIC EXAM KNEE COMPLETE 4/MORE VIEWS Bg Chavarria MD [address] [place] [address] [place] [address] Referral ID Status Reason Start Date Expiration Date V isits Requested Visits Authorized [id number] Closed Auto-Generate d Referral 03/31/2024 04/30/2025 1 1 [facility] for visit Narrative* Diagnostic Procedure Only (Routine) - Closed Specialty Diagnoses / Procedures Referred By Contac t Referred To Contact XR IMAGING Diagnoses Pain in left hip Procedures XR HIP 2V AP/LAT LEFT (AK,FL,ME,UN) RADEX HIP UNILATERAL WITH PELVIS 2-3 VIEWS Fredy Carrasco APRN.MORTGAGE LOAN ASSISTANT [address] [place] [address] [place] [address] Referral ID Status Reason Start Date Expiration Date V isits Requested Visits Authorized [id number] Closed Auto-Generate d Referral 04/16/2024 05/16/2025 1 1 [facility] for visit Narrative* Diagnostic Procedure Only (Routine) - Closed Specialty Diagnoses / Procedures Referred By Contac t Referred To Contact XR IMAGING Diagnoses Status post hip replacement, right Procedures XR HIP GENERAL 3V PELV/AP/LAT RIGHT RADEX HIP UNILATERAL WITH PELVIS 2-3 VIEWS Sincere Hopkins MD [address] [place] [address] [place] [address] Referral ID Status Reason Start Date Expiration Date V isits Requested Visits Authorized [id number] Closed Auto-Generate d Referral 10/16/2023 11/14/2024 1 1 [facility] for visit Narrative* Diagnostic Procedure Only (Routine) - Closed Specialty Diagnoses / Procedures Referred By Contac t Referred To Contact XR IMAGING Diagnoses Status post right hip replacement Procedures XR HIP GENERAL 3V PELV/AP/LAT RIGHT RADEX HIP UNILATERAL WITH PELVIS 2-3 VIEWS Joe Jiang PA-C [address] [address] [place] [address] Referral ID Status Reason Start Date Expiration Date V isits Requested Visits Authorized [id number] Closed Auto-Generate d Referral 07/08/2023 08/06/2024 1 1 [facility] for visit Narrative* Diagnostic Procedure Only (Routine) - Closed Specialty Diagnoses / Procedures Referred By Contac t Referred To Contact XR IMAGING Diagnoses Trochanteric bursitis of right hip Pain of right hip Fall, initial encounter Procedures XR HIP GENERAL 3V PELV/AP/LAT RIGHT RADEX HIP UNILATERAL WITH PELVIS 2-3 VIEWS Linda Silva APRN.MORTGAGE LOAN ASSISTANT [address] [place] [address] [place] [address] Referral ID Status Reason Start Date Expiration Date V isits Requested Visits Authorized [id number] Closed Auto-Generate d Referral 05/03/2023 06/01/2024 1 1 [facility] for visit Narrative* Diagnostic Procedure Only (Routine) - Closed Specialty Diagnoses / Procedures Referred By Contac t Referred To Contact XR IMAGING Diagnoses Pain in right hip Procedures XR HIP 2V AP/LAT RIGHT (AK,FL,ME) RADEX HIP UNILATERAL WITH PELVIS 2-3 VIEWS James Marcano PA-C [address] [place] [address] [place] [address] Referral ID Status Reason Start Date Expiration Date V isits Requested Visits Authorized [id number] Closed Auto-Generate d Referral 02/05/2023 03/06/2024 1 1 [facility] for visit Narrative* Diagnostic Procedure Only (Routine) - Closed Specialty Diagnoses / Procedures Referred By Contac t Referred To Contact XR IMAGING Diagnoses Bursitis of other bursa of right hip Procedures XR HIP GENERAL 3V PELV/AP/LAT RIGHT RADEX HIP UNILATERAL WITH PELVIS 2-3 VIEWS Linda Silva APRN.MORTGAGE LOAN ASSISTANT [address] [place] [address] [place] [address] Referral ID Status Reason Start Date Expiration Date V isits Requested Visits Authorized [id number] Closed Auto-Generate d Referral 09/14/2022 10/14/2023 1 1 [facility] for visit Narrative* Diagnostic Procedure Only (Routine) - Closed Specialty Diagnoses / Procedures Referred By Contac t Referred To Contact XR IMAGING Diagnoses Acquired hammer toe Procedures XR FOOT GENERAL 3V AP/LAT/OBL BILATERAL RADEX FOOT COMPLETE MINIMUM 3 VIEWS Elton Koch [address] [facility] [place] [address] [place] [address] Referral ID Status Reason Start Date Expiration Date V isits Requested Visits Authorized [id number] Closed Auto-Generate d Referral 09/05/2022 10/05/2023 1 1 [facility] for visit Narrative* Diagnostic Procedure Only (Routine) - Closed Specialty Diagnoses / Procedures Referred By Contac t Referred To Contact XR IMAGING Diagnoses Status post hip replacement, right Procedures XR HIP GENERAL 3V PELV/AP/LAT RIGHT RADEX HIP UNILATERAL WITH PELVIS 2-3 VIEWS Sincere Hopkins MD [address] [place] [address] [place] [address] Referral ID Status Reason Start Date Expiration Date V isits Requested Visits Authorized [id number] Closed Auto-Generate d Referral 07/03/2024 08/02/2025 1 1 [facility] for visit Narrative* Diagnostic Procedure Only (Routine) - Closed Specialty Diagnoses / Procedures Referred By Contac t Referred To Contact XR IMAGING Diagnoses Asymptomatic postmenopausal status Procedures DXA-AXIAL SKELETON DXA BONE DENSITY STUDY 1/> SITES AXIAL Bg Alamo MD [address] [place] [address] Phone: tel: fax: [place] [address] Referral ID Status Reason Start Date Expiration Date V isits Requested Visits Authorized [id number] Closed Auto-Generate d Referral 11/20/2024 12/20/2025 1 1 [facility] Advance Directives Documents on File Type Date Recorded Patient Historical Guide Expl anation Advance Directive(s) 12/12/2021 12:41 PM Advance Directive(s) 11/07/2021 6:39 AM Advance Directive(s) 10/20/2021 12:48 PM Advance Directive(s) 02/01/2021 7:48 AM Advance Directive(s) 01/31/2021 4:02 PM Advance Directive(s) 03/28/2016 5:57 PM Documents on File Type Date Recorded Patient Historical Guide Expl anation Advance Directive(s) 12/12/2021 12:41 PM Advance Directive(s) 11/07/2021 6:39 AM Advance Directive(s) 10/20/2021 12:48 PM Advance Directive(s) 02/01/2021 7:48 AM Advance Directive(s) 01/31/2021 4:02 PM Advance Directive(s) 03/28/2016 5:57 PM Documents on File Type Date Recorded Patient Historical Guide Expl anation Advance Directive(s) 02/08/2022 3:44 PM Advance Directive(s) 12/12/2021 12:41 PM Advance Directive(s) 11/07/2021 6:39 AM Advance Directive(s) 10/20/2021 12:48 PM Advance Directive(s) 02/01/2021 7:48 AM Advance Directive(s) 01/31/2021 4:02 PM Advance Directive(s) 03/28/2016 5:57 PM Documents on File Type Date Recorded Patient Historical Guide Expl anation Advance Directive(s) 02/20/2022 6:34 AM Advance Directive(s) 02/16/2022 9:32 AM Advance Directive(s) 02/08/2022 3:44 PM Advance Directive(s) 12/12/2021 12:41 PM Advance Directive(s) 11/07/2021 6:39 AM Advance Directive(s) 10/20/2021 12:48 PM Advance Directive(s) 02/01/2021 7:48 AM Advance Directive(s) 01/31/2021 4:02 PM Advance Directive(s) 03/28/2016 5:57 PM Documents on File Type Date Recorded Patient Historical Guide Expl anation Advance Directive(s) 02/20/2022 6:34 AM Advance Directive(s) 02/16/2022 9:32 AM Advance Directive(s) 02/08/2022 3:44 PM Advance Directive(s) 12/12/2021 12:41 PM Advance Directive(s) 11/07/2021 6:39 AM Advance Directive(s) 10/20/2021 12:48 PM Advance Directive(s) 02/01/2021 7:48 AM Advance Directive(s) 01/31/2021 4:02 PM Advance Directive(s) 03/28/2016 5:57 PM Documents on File Type Date Recorded Patient Historical Guide Expl anation Advance Directive(s) 01/31/2021 4:02 PM Documents on File Type Date Recorded Patient Historical Guide Expl anation Advance Directive(s) 01/31/2021 4:02 PM Documents on File Type Date Recorded Patient Historical Guide Expl anation Advance Directive(s) 07/13/2023 1:18 PM Advance Directive(s) 01/31/2021 4:02 PM Latest Code Status on File Code Status Date Activated Date Inactivated Comments Full Code 07/01/2023 11:48 AM 07/08/2023 5:15 PM Question Answer Comments Full Code Order Discussed With: Patient Documents on File Type Date Recorded Patient Historical Guide Expl anation Advance Directive(s) 07/13/2023 1:18 PM Advance Directive(s) 01/31/2021 4:02 PM Latest Code Status on File Code Status Date Activated Date Inactivated Comments Full Code 07/01/2023 11:48 AM 07/08/2023 5:15 PM Question Answer Comments Full Code Order Discussed With: Patient Date Activated Date Inactivated Comments 07/01/2023 11:48 AM 07/08/2023 5:15 PM Question Answer Comments Full Code Order Discussed With: Patient Date Activated Date Inactivated Comments 07/01/2023 11:48 AM 07/08/2023 5:15 PM Question Answer Comments Full Code Order Discussed With: Patient Advance Directive Response Recorded Date/ Time Advance Directives Yes May 8:08pm Medications Administered Section Inactive Administered Medications - up to 3 most recent administrations Medication Order MAR Action Action Date Dose Rate Site NaCl 0.9% iv infusion 30 mL/hr, INTRAVENOUS, CONTINUOUS, Starting on Sat03/02/22 at 1200, Until Sat03/02/22 at 1329, Preprocedure New Bag/Syringe/Bottle 03/02/2022 12:00 PM EDT 30 mL/hr 30 mL/hr Inactive Administered Medications - up to 3 most recent administrations Medication Order MAR Action Action Date Dose Rate Site fentaNYL 50 mcg/mL 25-100 mcg injection (SUBLIMAZE) 25-100 mcg, INTRAVENOUS, DIRECTED, Starting on Sat05/04/22 at 0800, Until Sat05/04/22 at 1159, DOSING DIRECTED BY PHYSICIAN FOR PROCEDURAL SEDATION ONLY, Intraprocedure Given 05/04/2022 7:45 AM EDT 50 mcg Given 05/04/2022 7:34 AM EDT 50 mcg lactated ringers iv infusion 75 mL/hr, INTRAVENOUS, CONTINUOUS, Starting on Sat05/04/22 at 0730, Until Sat05/04/22 at 0807, Preprocedure New Bag/Syringe/Bottle 05/04/2022 7:25 AM EDT 75 mL/hr 75 mL/hr midazolam (PF) 1-5 mg injection (VERSED) 1-5 mg, INTRAVENOUS, DIRECTED, Starting on Sat05/04/22 at 0800, Until Sat05/04/22 at 1159, DOSING DIRECTED BY PHYSICIAN FOR PROCEDURAL SEDATION ONLY, Intraprocedure Given 05/04/2022 7:50 AM EDT 1 mg Given 05/04/2022 7:34 AM EDT 2 mg Reason for Referral Specialty Diagnoses / Procedures Referred By Katerina thompson Referred To Contact Gastroenterology Diagnoses Colon cancer screening Procedures CONSULT TO GASTROENTEROLOGY OFFICE/OUTPATIENT [facility] 60-74 MINUTES Bg Chavarria MD [address] [place] [address] Referral ID Status Reason Start Date Expiration Date Visits Requested Visits Authorized [id number] Authorized PCP Requested Referral 02/27/2022 02/27/2023 1 1 Specialty Diagnoses / Procedures Referred By Katerina thompson Referred To Contact BR IMAGING Diagnoses Breast cancer screening by mammogram Procedures ANGIE SCREENING SCREENING MAMMOGRAPHY BI 2-VIEW BREAST INC CAD Bg Chavarria MD [address] [place] [address] Br Imaging [address] [place] [address] Referral ID Status Reason Start Date Expiration Date Visits Requested Visits Authorized [id number] Authorized Auto-Generat ed Referral 02/27/2022 05/28/2022 3 1 Referral ID Status Reason Start Date Expiration Date V isits Requested Visits Authorized [id number] Closed Auto-Generate d Referral 02/27/2022 05/28/2022 3 1 Specialty Diagnoses / Procedures Referred By Contac t Referred To Contact Podiatry Diagnoses Hammer toes of both feet Procedures CONSULT TO PODIATRY OFFICE/OUTPATIENT [facility] 60-74 MINUTES Linda Silva APRN.MORTGAGE LOAN ASSISTANT [address] [place] [address] Elton Koch [address] [place] [address] Referral ID Status Reason Start Date Expiration Date Visits Requested Visits Authorized [id number] Authorized PCP Requested Referral 2 08/14/2023 1 1 Specialty Diagnoses / Procedures Referred By Contac t Referred To Contact Diagnoses Chronic pain of right hip Luis Manuel Hernandez, REFRIGERATION BRAZER/SOLDERER.DRAW HAND [address] [place] [address] Referral ID Status Reason Start Date Expiration Date V isits Requested Visits Authorized [id number] Pending Review 1 1 Specialty Diagnoses / Procedures Referred By Contac t Referred To Contact XR IMAGING Diagnoses Chronic pain of right hip Procedures XR HIP GENERAL 3V PELV/AP/LAT RIGHT RADEX HIP UNILATERAL WITH PELVIS 2-3 VIEWS Luis Manuel Hernandez, REFRIGERATION BRAZER/SOLDERER.DRAW HAND [address] [place] [address] Xr Imaging Referral ID Status Reason Start Date Expiration Date Visits Requested Visits Authorized [id number] Pending Review Auto-Generat ed Referral 02/04/2023 03/05/2024 1 1 Specialty Diagnoses / Procedures Referred By Contac t Referred To Contact [facility] Diagnoses Trochanteric bursitis of right hip Procedures PT REHAB FOLLOW UP ORDER THERAPEUTIC EXERCISES RE, EA 15 MIN. Zhen Powell, PT [address] [place] [address] [facility] [place] [address] [place] [address] Referral ID Status Reason Start Date Expiration Date Visits Requested Visits Authorized [id number] Pending Review PCP Requested Referral Auto-Generate d Referral 04/08/2023 07/07/2023 1 1 Specialty Diagnoses / Procedures Referred By Contac t Referred To Contact Diagnoses Trochanteric bursitis of right hip Pain of right hip Fall, initial encounter Linda Silva APRN.MORTGAGE LOAN ASSISTANT [address] [place] [address] Referral ID Status Reason Start Date Expiration Date Visits Re quested Visits Authorized [id number] Closed 1 1 Specialty Diagnoses / Procedures Referred By Contac t Referred To Contact XR IMAGING Diagnoses Trochanteric bursitis of right hip Pain of right hip Fall, initial encounter Procedures XR HIP GENERAL 3V PELV/AP/LAT RIGHT RADEX HIP UNILATERAL WITH PELVIS 2-3 VIEWS Linda Silva APRN.MORTGAGE LOAN ASSISTANT [address] [place] [address] Xr Imaging Referral ID Status Reason Start Date Expiration Date V isits Requested Visits Authorized [id number] Closed Auto-Generate d Referral 05/03/2023 06/01/2024 1 1 Specialty Diagnoses / Procedures Referred By Contac t Referred To Contact Diagnoses Osteonecrosis of right hip (HCC) Fredy Carrasco APRN.MORTGAGE LOAN ASSISTANT [address] [place] [address] Referral ID Status Reason Start Date Expiration Date Visits Re quested Visits Authorized [id number] Closed 1 1 Specialty Diagnoses / Procedures Referred By Contac t Referred To Contact CT IMAGING Diagnoses Presence of right artificial hip joint Osteonecrosis of right hip (HCC) Preoperative examination Procedures CT HIP WO IVCON RIGHT CT LOWER EXTREMITY W/O CONTRAST MATERIAL Fredy Carrasco APRN.MORTGAGE LOAN ASSISTANT [address] [place] [address] [address] [place] [address] Referral ID Status Reason Start Date Expiration Date Visits Requested Visits Authorized [id number] Pending Review Auto-Generat ed Referral 05/21/2023 06/19/2024 1 1 Specialty Diagnoses / Procedures Referred By Katerina t Referred To Contact Diagnoses Osteonecrosis of right hip (HCC) Pre-op testing Procedures PACC PRE-SURGICAL PLANNING CONSULT Joe Jiang PA-C [address] [address] Referral ID Status Reason Start Date Expiration Date Visits Requested Visits Authorized [id number] Ref Not Required PCP Requested Referral 06/05/2023 06/04/2024 1 1 Specialty Diagnoses / Procedures Referred By Katerina t Referred To Contact [facility] Diagnoses Status post hip replacement, right SI (sacroiliac) joint inflammation (HCC) Chronic midline low back pain without sciatica Procedures CONSULT TO PHYSICAL THERAPY PHYSICAL THERAPY EVALUATION HIGH COMPLEX 45 MINS Sincere Hopkins MD [address] [place] [address] [facility] [place] [address] [place] [address] Referral ID Status Reason Start Date Expiration Date Visits Requested Visits Authorized [id number] Authorized PCP Requested Referral Auto-Generate d Referral 08/07/2023 08/06/2024 99 99 Specialty Diagnoses / Procedures Referred By Katerina thompson Referred To Contact Cardiology Diagnoses Postural dizziness with presyncope Former smoker Abnormal EKG Type 2 diabetes mellitus with other specified complication, without long-term current use of insulin (HCC) Elevated LDL cholesterol level SOB (shortness of breath) Throat tightness Procedures CONSULT TO CARDIOLOGY OFFICE/OUTPATIENT [facility] 60 MINUTES Luis Manuel Hernandez, REFRIGERATION BRAZER/SOLDERER.DRAW HAND [address] [place] [address] Referral ID Status Reason Start Date Expiration Date Visits Requested Visits Authorized [id number] Authorized PCP Requested Referral 07/06/2024 07/06/2025 1 1 Specialty Diagnoses / Procedures Referred By Katerina thompson Ref[facility] Diagnoses Postural dizziness with presyncope Former smoker Abnormal EKG Type 2 diabetes mellitus with other specified complication, without long-term current use of insulin (HCC) Elevated LDL cholesterol level SOB (shortness of breath) Throat tightness Procedures STRESS ECHO TREADMILL ECHO TTHRC R-T 2D W/WO M-MODE COMPLETE REST&ST HernandezLuis Manuel burris, REFRIGERATION BRAZER/SOLDERER.DRAW HAND [address] [place] [address] [facility] [place] [address] [place] [id number] Referral ID Status Reason Start Date Expiration Date Visits Requested Visits Authorized [id number] Authorized Auto-Generat ed Referral 07/06/2024 07/06/2025 1 1 Specialty Diagnoses / Procedures Referred By Contac t Referred To Contact [facility] [place] Diagnoses Postural dizziness with presyncope Procedures ECG COMPLETE ECG ROUTINE ECG W/LEAST 12 LDS W/I&R Luis Manuel Hernandez, REFRIGERATION BRAZER/SOLDERER.DRAW HAND [address] [place] [address] [facility] [address] [address] Referral ID Status Reason Start Date Expiration Date Visits Requested Visits Authorized [id number] New Request Auto-Generat ed Referral 07/06/2024 07/06/2025 1 1 Specialty Diagnoses / Procedures Referred By Contac t Referred To Contact Cardiology Diagnoses SVT (supraventricular tachycardia) (HCC) Procedures CONSULT TO CARDIOLOGY OFFICE/OUTPATIENT [facility] 60 MINUTES Bg Chavarria MD [address] [place] [address] Gregg Ramirez MD [address] [facility] [address] [place] [address] Referral ID Status Reason Start Date Expiration Date Visits Requested Visits Authorized [id number] Authorized PCP Requested Referral 09/13/2025 1 1 Health Concerns Infection Onset Date Last Indicated Resolved Time COVID-19 Rule-Out 06/20/2023 06/20/2023 06/21/2023 2:32 AM EDT Summary Purpose Family History Relationship Condition Age at Onset Recorded Date/T ayleen father Malignant neoplasm of colon Unknown mother Disorder of thyroid Unknown Osteoporosis Unknown Chief Complaint and Reason for Visit Chief Complaint Admit Date 6 M FU April 20, 2025 1:05 pm Reason for Visit Admit Date Aortic valve insufficiency April 20 1:05pm Mitral regurgitation April 20, 2025 1:0 5pm Pre-syncope April 20, 2025 1:05 pm SVT (supraventricular tachycardia) April 20, 2025 1:05pm Type 2 diabetes mellitus April 20, 2025 1:05pm Additional Source Comments Source Comments (unrecognize d section and content) In the event this informatio n is protected by the Federal Confidentiality of Alcohol and Drug Abuse Patient Records regulations: The Federal rules restrict any use of the information to criminally investigate or prosecute any alcohol or drug abuse patient.[facility] the event this information is protected by the Federal Confidentiality of Alcohol and Drug Abuse Patient Records regulations: The Federal rules restrict any use of the information to criminally investigate or prosecute any alcohol or drug abuse patient.[facility] the event this information is protected by the Federal Confidentiality of Alcohol and Drug Abuse Patient Records regulations: The Federal rules restrict any use of the information to criminally investigate or prosecute any alcohol or drug abuse patient.[facility] the event this information is protected by the Federal Confidentiality of Alcohol and Drug Abuse Patient Records regulations: The Federal rules restrict any use of the information to criminally investigate or prosecute any alcohol or drug abuse patient.[facility] the event this information is protected by the Federal Confidentiality of Alcohol and Drug Abuse Patient Records regulations: The Federal rules restrict any use of the information to criminally investigate or prosecute any alcohol or drug abuse patient.[facility] the event this information is protected by the Federal Confidentiality of Alcohol and Drug Abuse Patient Records regulations: The Federal rules restrict any use of the information to criminally investigate or prosecute any alcohol or drug abuse patient.[facility] the event this information is protected by the Federal Confidentiality of Alcohol and Drug Abuse Patient Records regulations: The Federal rules restrict any use of the information to criminally investigate or prosecute any alcohol or drug abuse patient.[facility] the event this information is protected by the Federal Confidentiality of Alcohol and Drug Abuse Patient Records regulations: The Federal rules restrict any use of the information to criminally investigate or prosecute any alcohol or drug abuse patient.[facility] the event this information is protected by the Federal Confidentiality of Alcohol and Drug Abuse Patient Records regulations: The Federal rules restrict any use of the information to criminally investigate or prosecute any alcohol or drug abuse patient.[facility] the event this information is protected by the Federal Confidentiality of Alcohol and Drug Abuse Patient Records regulations: The Federal rules restrict any use of the information to criminally investigate or prosecute any alcohol or drug abuse patient.[facility] the event this information is protected by the Federal Confidentiality of Alcohol and Drug Abuse Patient Records regulations: The Federal rules restrict any use of the information to criminally investigate or prosecute any alcohol or drug abuse patient.[facility] the event this information is protected by the Federal Confidentiality of Alcohol and Drug Abuse Patient Records regulations: The Federal rules restrict any use of the information to criminally investigate or prosecute any alcohol or drug abuse patient.[facility] the event this information is protected by the Federal Confidentiality of Alcohol and Drug Abuse Patient Records regulations: The Federal rules restrict any use of the information to criminally investigate or prosecute any alcohol or drug abuse patient.[facility] the event this information is protected by the Federal Confidentiality of Alcohol and Drug Abuse Patient Records regulations: The Federal rules restrict any use of the information to criminally investigate or prosecute any alcohol or drug abuse patient.[facility] the event this information is protected by the Federal Confidentiality of Alcohol and Drug Abuse Patient Records regulations: The Federal rules restrict any use of the information to criminally investigate or prosecute any alcohol or drug abuse patient.[facility] the event this information is protected by the Federal Confidentiality of Alcohol and Drug Abuse Patient Records regulations: The Federal rules restrict any use of the information to criminally investigate or prosecute any alcohol or drug abuse patient.[facility] the event this information is protected by the Federal Confidentiality of Alcohol and Drug Abuse Patient Records regulations: The Federal rules restrict any use of the information to criminally investigate or prosecute any alcohol or drug abuse patient.[facility] the event this information is protected by the Federal Confidentiality of Alcohol and Drug Abuse Patient Records regulations: The Federal rules restrict any use of the information to criminally investigate or prosecute any alcohol or drug abuse patient.[facility] [facility] HospitalIn the event this information is protected by the Federal Confidentiality of Alcohol and Drug Abuse Patient Records regulations: The Federal rules restrict any use of the information to criminally investigate or prosecute any alcohol or drug abuse patient.[facility]In the event this information is protected by the Federal Confidentiality of Alcohol and Drug Abuse Patient Records regulations: The Federal rules restrict any use of the information to criminally investigate or prosecute any alcohol or drug abuse patient.[facility] HospitalIn the event this information is protected by the Federal Confidentiality of Alcohol and Drug Abuse Patient Records regulations: The Federal rules restrict any use of the information to criminally investigate or prosecute any alcohol or drug abuse patient.[facility] HospitalIn the event this information is protected by the Federal Confidentiality of Alcohol and Drug Abuse Patient Records regulations: The Federal rules restrict any use of the information to criminally investigate or prosecute any alcohol or drug abuse patient.[facility] HospitalIn the event this information is protected by the Federal Confidentiality of Alcohol and Drug Abuse Patient Records regulations: The Federal rules restrict any use of the information to criminally investigate or prosecute any alcohol or drug abuse patient.[facility] HospitalIn the event this information is protected by the Federal Confidentiality of Alcohol and Drug Abuse Patient Records regulations: The Federal rules restrict any use of the information to criminally investigate or prosecute any alcohol or drug abuse patient.[facility] HospitalIn the event this information is protected by the Federal Confidentiality of Alcohol and Drug Abuse Patient Records regulations: The Federal rules restrict any use of the information to criminally investigate or prosecute any alcohol or drug abuse patient.[facility] HospitalIn the event this information is protected by the Federal Confidentiality of Alcohol and Drug Abuse Patient Records regulations: The Federal rules restrict any use of the information to criminally investigate or prosecute any alcohol or drug abuse patient.[facility] HospitalIn the event this information is protected by the Federal Confidentiality of Alcohol and Drug Abuse Patient Records regulations: The Federal rules restrict any use of the information to criminally investigate or prosecute any alcohol or drug abuse patient.[facility] HospitalIn the event this information is protected by the Federal Confidentiality of Alcohol and Drug Abuse Patient Records regulations: The Federal rules restrict any use of the information to criminally investigate or prosecute any alcohol or drug abuse patient.[facility] HospitalIn the event this information is protected by the Federal Confidentiality of Alcohol and Drug Abuse Patient Records regulations: The Federal rules restrict any use of the information to criminally investigate or prosecute any alcohol or drug abuse patient.[facility] HospitalIn the event this information is protected by the Federal Confidentiality of Alcohol and Drug Abuse Patient Records regulations: The Federal rules restrict any use of the information to criminally investigate or prosecute any alcohol or drug abuse patient.[facility] HospitalIn the event this information is protected by the Federal Confidentiality of Alcohol and Drug Abuse Patient Records regulations: The Federal rules restrict any use of the information to criminally investigate or prosecute any alcohol or drug abuse patient.[facility] HospitalIn the event this information is protected by the Federal Confidentiality of Alcohol and Drug Abuse Patient Records regulations: The Federal rules restrict any use of the information to criminally investigate or prosecute any alcohol or drug abuse patient.[facility] HospitalIn the event this information is protected by the Federal Confidentiality of Alcohol and Drug Abuse Patient Records regulations: The Federal rules restrict any use of the information to criminally investigate or prosecute any alcohol or drug abuse patient.[facility] HospitalIn the event this information is protected by the Federal Confidentiality of Alcohol and Drug Abuse Patient Records regulations: The Federal rules restrict any use of the information to criminally investigate or prosecute any alcohol or drug abuse patient.[facility] HospitalIn the event this information is protected by the Federal Confidentiality of Alcohol and Drug Abuse Patient Records regulations: The Federal rules restrict any use of the information to criminally investigate or prosecute any alcohol or drug abuse patient.[facility] HospitalIn the event this information is protected by the Federal Confidentiality of Alcohol and Drug Abuse Patient Records regulations: The Federal rules restrict any use of the information to criminally investigate or prosecute any alcohol or drug abuse patient.[facility] HospitalIn the event this information is protected by the Federal Confidentiality of Alcohol and Drug Abuse Patient Records regulations: The Federal rules restrict any use of the information to criminally investigate or prosecute any alcohol or drug abuse patient.[facility] HospitalIn the event this information is protected by the Federal Confidentiality of Alcohol and Drug Abuse Patient Records regulations: The Federal rules restrict any use of the information to criminally investigate or prosecute any alcohol or drug abuse patient.[facility] HospitalIn the event this information is protected by the Federal Confidentiality of Alcohol and Drug Abuse Patient Records regulations: The Federal rules restrict any use of the information to criminally investigate or prosecute any alcohol or drug abuse patient.[facility] HospitalIn the event this information is protected by the Federal Confidentiality of Alcohol and Drug Abuse Patient Records regulations: The Federal rules restrict any use of the information to criminally investigate or prosecute any alcohol or drug abuse patient.[facility] HospitalIn the event this information is protected by the Federal Confidentiality of Alcohol and Drug Abuse Patient Records regulations: The Federal rules restrict any use of the information to criminally investigate or prosecute any alcohol or drug abuse patient.[facility] HospitalIn the event this information is protected by the Federal Confidentiality of Alcohol and Drug Abuse Patient Records regulations: The Federal rules restrict any use of the information to criminally investigate or prosecute any alcohol or drug abuse patient.[facility] HospitalIn the event this information is protected by the Federal Confidentiality of Alcohol and Drug Abuse Patient Records regulations: The Federal rules restrict any use of the information to criminally investigate or prosecute any alcohol or drug abuse patient.[facility] HospitalIn the event this information is protected by the Federal Confidentiality of Alcohol and Drug Abuse Patient Records regulations: The Federal rules restrict any use of the information to criminally investigate or prosecute any alcohol or drug abuse patient.[facility] HospitalIn the event this information is protected by the Federal Confidentiality of Alcohol and Drug Abuse Patient Records regulations: The Federal rules restrict any use of the information to criminally investigate or prosecute any alcohol or drug abuse patient.[facility] HospitalIn the event this information is protected by the Federal Confidentiality of Alcohol and Drug Abuse Patient Records regulations: The Federal rules restrict any use of the information to criminally investigate or prosecute any alcohol or drug abuse patient.[facility] HospitalIn the event this information is protected by the Federal Confidentiality of Alcohol and Drug Abuse Patient Records regulations: The Federal rules restrict any use of the information to criminally investigate or prosecute any alcohol or drug abuse patient.[facility] HospitalIn the event this information is protected by the Federal Confidentiality of Alcohol and Drug Abuse Patient Records regulations: The Federal rules restrict any use of the information to criminally investigate or prosecute any alcohol or drug abuse patient.[facility] HospitalIn the event this information is protected by the Federal Confidentiality of Alcohol and Drug Abuse Patient Records regulations: The Federal rules restrict any use of the information to criminally investigate or prosecute any alcohol or drug abuse patient.[facility] HospitalIn the event this information is protected by the Federal Confidentiality of Alcohol and Drug Abuse Patient Records regulations: The Federal rules restrict any use of the information to criminally investigate or prosecute any alcohol or drug abuse patient.[facility] HospitalIn the event this information is protected by the Federal Confidentiality of Alcohol and Drug Abuse Patient Records regulations: The Federal rules restrict any use of the information to criminally investigate or prosecute any alcohol or drug abuse patient.[facility] HospitalIn the event this information is protected by the Federal Confidentiality of Alcohol and Drug Abuse Patient Records regulations: The Federal rules restrict any use of the information to criminally investigate or prosecute any alcohol or drug abuse patient.[facility] HospitalIn the event this information is protected by the Federal Confidentiality of Alcohol and Drug Abuse Patient Records regulations: The Federal rules restrict any use of the information to criminally investigate or prosecute any alcohol or drug abuse patient.[facility] HospitalIn the event this information is protected by the Federal Confidentiality of Alcohol and Drug Abuse Patient Records regulations: The Federal rules restrict any use of the information to criminally investigate or prosecute any alcohol or drug abuse patient.[facility] HospitalIn the event this information is protected by the Federal Confidentiality of Alcohol and Drug Abuse Patient Records regulations: The Federal rules restrict any use of the information to criminally investigate or prosecute any alcohol or drug abuse patient.[facility] HospitalIn the event this information is protected by the Federal Confidentiality of Alcohol and Drug Abuse Patient Records regulations: The Federal rules restrict any use of the information to criminally investigate or prosecute any alcohol or drug abuse patient.[facility] HospitalIn the event this information is protected by the Federal Confidentiality of Alcohol and Drug Abuse Patient Records regulations: The Federal rules restrict any use of the information to criminally investigate or prosecute any alcohol or drug abuse patient.[facility] HospitalIn the event this information is protected by the Federal Confidentiality of Alcohol and Drug Abuse Patient Records regulations: The Federal rules restrict any use of the information to criminally investigate or prosecute any alcohol or drug abuse patient.[facility] HospitalIn the event this information is protected by the Federal Confidentiality of Alcohol and Drug Abuse Patient Records regulations: The Federal rules restrict any use of the information to criminally investigate or prosecute any alcohol or drug abuse patient.[facility] HospitalIn the event this information is protected by the Federal Confidentiality of Alcohol and Drug Abuse Patient Records regulations: The Federal rules restrict any use of the information to criminally investigate or prosecute any alcohol or drug abuse patient.[facility] HospitalIn the event this information is protected by the Federal Confidentiality of Alcohol and Drug Abuse Patient Records regulations: The Federal rules restrict any use of the information to criminally investigate or prosecute any alcohol or drug abuse patient.[facility] HospitalIn the event this information is protected by the Federal Confidentiality of Alcohol and Drug Abuse Patient Records regulations: The Federal rules restrict any use of the information to criminally investigate or prosecute any alcohol or drug abuse patient.[facility] HospitalIn the event this information is protected by the Federal Confidentiality of Alcohol and Drug Abuse Patient Records regulations: The Federal rules restrict any use of the information to criminally investigate or prosecute any alcohol or drug abuse patient.[facility] HospitalIn the event this information is protected by the Federal Confidentiality of Alcohol and Drug Abuse Patient Records regulations: The Federal rules restrict any use of the information to criminally investigate or prosecute any alcohol or drug abuse patient.[facility] HospitalIn the event this information is protected by the Federal Confidentiality of Alcohol and Drug Abuse Patient Records regulations: The Federal rules restrict any use of the information to criminally investigate or prosecute any alcohol or drug abuse patient.[facility] HospitalIn the event this information is protected by the Federal Confidentiality of Alcohol and Drug Abuse Patient Records regulations: The Federal rules restrict any use of the information to criminally investigate or prosecute any alcohol or drug abuse patient.[facility] HospitalIn the event this information is protected by the Federal Confidentiality of Alcohol and Drug Abuse Patient Records regulations: The Federal rules restrict any use of the information to criminally investigate or prosecute any alcohol or drug abuse patient.[facility] HospitalIn the event this information is protected by the Federal Confidentiality of Alcohol and Drug Abuse Patient Records regulations: The Federal rules restrict any use of the information to criminally investigate or prosecute any alcohol or drug abuse patient.[facility] HospitalIn the event this information is protected by the Federal Confidentiality of Alcohol and Drug Abuse Patient Records regulations: The Federal rules restrict any use of the information to criminally investigate or prosecute any alcohol or drug abuse patient.[facility] HospitalIn the event this information is protected by the Federal Confidentiality of Alcohol and Drug Abuse Patient Records regulations: The Federal rules restrict any use of the information to criminally investigate or prosecute any alcohol or drug abuse patient.[facility] HospitalIn the event this information is protected by the Federal Confidentiality of Alcohol and Drug Abuse Patient Records regulations: The Federal rules restrict any use of the information to criminally investigate or prosecute any alcohol or drug abuse patient.[facility] HospitalIn the event this information is protected by the Federal Confidentiality of Alcohol and Drug Abuse Patient Records regulations: The Federal rules restrict any use of the information to criminally investigate or prosecute any alcohol or drug abuse patient.[facility] HospitalIn the event this information is protected by the Federal Confidentiality of Alcohol and Drug Abuse Patient Records regulations: The Federal rules restrict any use of the information to criminally investigate or prosecute any alcohol or drug abuse patient.[facility] HospitalIn the event this information is protected by the Federal Confidentiality of Alcohol and Drug Abuse Patient Records regulations: The Federal rules restrict any use of the information to criminally investigate or prosecute any alcohol or drug abuse patient.[facility] HospitalIn the event this information is protected by the Federal Confidentiality of Alcohol and Drug Abuse Patient Records regulations: The Federal rules restrict any use of the information to criminally investigate or prosecute any alcohol or drug abuse patient.[facility] HospitalIn the event this information is protected by the Federal Confidentiality of Alcohol and Drug Abuse Patient Records regulations: The Federal rules restrict any use of the information to criminally investigate or prosecute any alcohol or drug abuse patient.[facility] HospitalIn the event this information is protected by the Federal Confidentiality of Alcohol and Drug Abuse Patient Records regulations: The Federal rules restrict any use of the information to criminally investigate or prosecute any alcohol or drug abuse patient.[facility] HospitalIn the event this information is protected by the Federal Confidentiality of Alcohol and Drug Abuse Patient Records regulations: The Federal rules restrict any use of the information to criminally investigate or prosecute any alcohol or drug abuse patient.[facility] HospitalIn the event this information is protected by the Federal Confidentiality of Alcohol and Drug Abuse Patient Records regulations: The Federal rules restrict any use of the information to criminally investigate or prosecute any alcohol or drug abuse patient.[facility] HospitalIn the event this information is protected by the Federal Confidentiality of Alcohol and Drug Abuse Patient Records regulations: The Federal rules restrict any use of the information to criminally investigate or prosecute any alcohol or drug abuse patient.[facility] HospitalIn the event this information is protected by the Federal Confidentiality of Alcohol and Drug Abuse Patient Records regulations: The Federal rules restrict any use of the information to criminally investigate or prosecute any alcohol or drug abuse patient.[facility] HospitalIn the event this information is protected by the Federal Confidentiality of Alcohol and Drug Abuse Patient Records regulations: The Federal rules restrict any use of the information to criminally investigate or prosecute any alcohol or drug abuse patient.[facility] HospitalIn the event this information is protected by the Federal Confidentiality of Alcohol and Drug Abuse Patient Records regulations: The Federal rules restrict any use of the information to criminally investigate or prosecute any alcohol or drug abuse patient.[facility] HospitalIn the event this information is protected by the Federal Confidentiality of Alcohol and Drug Abuse Patient Records regulations: The Federal rules restrict any use of the information to criminally investigate or prosecute any alcohol or drug abuse patient.[facility] HospitalIn the event this information is protected by the Federal Confidentiality of Alcohol and Drug Abuse Patient Records regulations: The Federal rules restrict any use of the information to criminally investigate or prosecute any alcohol or drug abuse patient.[facility] HospitalIn the event this information is protected by the Federal Confidentiality of Alcohol and Drug Abuse Patient Records regulations: The Federal rules restrict any use of the information to criminally investigate or prosecute any alcohol or drug abuse patient.[facility] HospitalIn the event this information is protected by the Federal Confidentiality of Alcohol and Drug Abuse Patient Records regulations: The Federal rules restrict any use of the information to criminally investigate or prosecute any alcohol or drug abuse patient.[facility] HospitalIn the event this information is protected by the Federal Confidentiality of Alcohol and Drug Abuse Patient Records regulations: The Federal rules restrict any use of the information to criminally investigate or prosecute any alcohol or drug abuse patient.[facility] HospitalIn the event this information is protected by the Federal Confidentiality of Alcohol and Drug Abuse Patient Records regulations: The Federal rules restrict any use of the information to criminally investigate or prosecute any alcohol or drug abuse patient.[facility] HospitalIn the event this information is protected by the Federal Confidentiality of Alcohol and Drug Abuse Patient Records regulations: The Federal rules restrict any use of the information to criminally investigate or prosecute any alcohol or drug abuse patient.[facility] HospitalIn the event this information is protected by the Federal Confidentiality of Alcohol and Drug Abuse Patient Records regulations: The Federal rules restrict any use of the information to criminally investigate or prosecute any alcohol or drug abuse patient.[facility] HospitalIn the event this information is protected by the Federal Confidentiality of Alcohol and Drug Abuse Patient Records regulations: The Federal rules restrict any use of the information to criminally investigate or prosecute any alcohol or drug abuse patient.[facility] HospitalIn the event this information is protected by the Federal Confidentiality of Alcohol and Drug Abuse Patient Records regulations: The Federal rules restrict any use of the information to criminally investigate or prosecute any alcohol or drug abuse patient.[facility] HospitalIn the event this information is protected by the Federal Confidentiality of Alcohol and Drug Abuse Patient Records regulations: The Federal rules restrict any use of the information to criminally investigate or prosecute any alcohol or drug abuse patient.[facility] HospitalIn the event this information is protected by the Federal Confidentiality of Alcohol and Drug Abuse Patient Records regulations: The Federal rules restrict any use of the information to criminally investigate or prosecute any alcohol or drug abuse patient.[facility] HospitalIn the event this information is protected by the Federal Confidentiality of Alcohol and Drug Abuse Patient Records regulations: The Federal rules restrict any use of the information to criminally investigate or prosecute any alcohol or drug abuse patient.[facility] HospitalIn the event this information is protected by the Federal Confidentiality of Alcohol and Drug Abuse Patient Records regulations: The Federal rules restrict any use of the information to criminally investigate or prosecute any alcohol or drug abuse patient.[facility] HospitalIn the event this information is protected by the Federal Confidentiality of Alcohol and Drug Abuse Patient Records regulations: The Federal rules restrict any use of the information to criminally investigate or prosecute any alcohol or drug abuse patient.[facility] HospitalIn the event this information is protected by the Federal Confidentiality of Alcohol and Drug Abuse Patient Records regulations: The Federal rules restrict any use of the information to criminally investigate or prosecute any alcohol or drug abuse patient.[facility] HospitalIn the event this information is protected by the Federal Confidentiality of Alcohol and Drug Abuse Patient Records regulations: The Federal rules restrict any use of the information to criminally investigate or prosecute any alcohol or drug abuse patient.[facility] HospitalIn the event this information is protected by the Federal Confidentiality of Alcohol and Drug Abuse Patient Records regulations: The Federal rules restrict any use of the information to criminally investigate or prosecute any alcohol or drug abuse patient.[facility] HospitalIn the event this information is protected by the Federal Confidentiality of Alcohol and Drug Abuse Patient Records regulations: The Federal rules restrict any use of the information to criminally investigate or prosecute any alcohol or drug abuse patient.[facility] HospitalIn the event this information is protected by the Federal Confidentiality of Alcohol and Drug Abuse Patient Records regulations: The Federal rules restrict any use of the information to criminally investigate or prosecute any alcohol or drug abuse patient.[facility] HospitalIn the event this information is protected by the Federal Confidentiality of Alcohol and Drug Abuse Patient Records regulations: The Federal rules restrict any use of the information to criminally investigate or prosecute any alcohol or drug abuse patient.[facility] HospitalIn the event this information is protected by the Federal Confidentiality of Alcohol and Drug Abuse Patient Records regulations: The Federal rules restrict any use of the information to criminally investigate or prosecute any alcohol or drug abuse patient.[facility] HospitalIn the event this information is protected by the Federal Confidentiality of Alcohol and Drug Abuse Patient Records regulations: The Federal rules restrict any use of the information to criminally investigate or prosecute any alcohol or drug abuse patient.[facility] HospitalIn the event this information is protected by the Federal Confidentiality of Alcohol and Drug Abuse Patient Records regulations: The Federal rules restrict any use of the information to criminally investigate or prosecute any alcohol or drug abuse patient.[facility] HospitalIn the event this information is protected by the Federal Confidentiality of Alcohol and Drug Abuse Patient Records regulations: The Federal rules restrict any use of the information to criminally investigate or prosecute any alcohol or drug abuse patient.[facility] HospitalIn the event this information is protected by the Federal Confidentiality of Alcohol and Drug Abuse Patient Records regulations: The Federal rules restrict any use of the information to criminally investigate or prosecute any alcohol or drug abuse patient.[facility] HospitalIn the event this information is protected by the Federal Confidentiality of Alcohol and Drug Abuse Patient Records regulations: The Federal rules restrict any use of the information to criminally investigate or prosecute any alcohol or drug abuse patient.[facility] HospitalIn the event this information is protected by the Federal Confidentiality of Alcohol and Drug Abuse Patient Records regulations: The Federal rules restrict any use of the information to criminally investigate or prosecute any alcohol or drug abuse patient.[facility] HospitalIn the event this information is protected by the Federal Confidentiality of Alcohol and Drug Abuse Patient Records regulations: The Federal rules restrict any use of the information to criminally investigate or prosecute any alcohol or drug abuse patient.[facility] HospitalIn the event this information is protected by the Federal Confidentiality of Alcohol and Drug Abuse Patient Records regulations: The Federal rules restrict any use of the information to criminally investigate or prosecute any alcohol or drug abuse patient.[facility] HospitalIn the event this information is protected by the Federal Confidentiality of Alcohol and Drug Abuse Patient Records regulations: The Federal rules restrict any use of the information to criminally investigate or prosecute any alcohol or drug abuse patient.[facility] HospitalIn the event this information is protected by the Federal Confidentiality of Alcohol and Drug Abuse Patient Records regulations: The Federal rules restrict any use of the information to criminally investigate or prosecute any alcohol or drug abuse patient.[facility] HospitalIn the event this information is protected by the Federal Confidentiality of Alcohol and Drug Abuse Patient Records regulations: The Federal rules restrict any use of the information to criminally investigate or prosecute any alcohol or drug abuse patient.[facility] HospitalIn the event this information is protected by the Federal Confidentiality of Alcohol and Drug Abuse Patient Records regulations: The Federal rules restrict any use of the information to criminally investigate or prosecute any alcohol or drug abuse patient.[facility] HospitalIn the event this information is protected by the Federal Confidentiality of Alcohol and Drug Abuse Patient Records regulations: The Federal rules restrict any use of the information to criminally investigate or prosecute any alcohol or drug abuse patient.[facility] HospitalIn the event this information is protected by the Federal Confidentiality of Alcohol and Drug Abuse Patient Records regulations: The Federal rules restrict any use of the information to criminally investigate or prosecute any alcohol or drug abuse patient.[facility] HospitalIn the event this information is protected by the [facility] Confidentiality of Alcohol and Drug Abuse Patient Records regulations: The Federal rules restrict any use of the information to criminally investigate or prosecute any alcohol or drug abuse patient.[facility] HospitalIn the event this information is protected by the Federal Confidentiality of Alcohol and Drug Abuse Patient Records regulations: The Federal rules restrict any use of the information to criminally investigate or prosecute any alcohol or drug abuse patient.[facility] Care Teams (unrecognized sec tion and content) Practical Nurse Clinical Coordinator Relationship Specialty Start Date End Date Bg Chavarria MD [address] [place], [place] [id number] PCP - General Internal Medicine 05/04/13 Practical Nurse Clinical Coordinator Relationship Specialty Start Date End Date Bg Chavarria MD [address] [place], [place] [id number] PCP - General Internal Medicine 05/04/13 Practical Nurse Clinical Coordinator Relationship Specialty Start Date End Date Bg Chavarria MD [address] [place], [place] [id number] PCP - General Internal Medicine 05/04/13 Practical Nurse Clinical Coordinator Relationship Specialty Start Date End Date Bg Chavarria MD [address] [facility] [place] [address] PCP - General Internal Medicine 05/04/13 Practical Nurse Clinical Coordinator Relationship Specialty Start Date End Date Bg Chavarria MD [facility] [facility] [place] [address] PCP - General Internal Medicine 05/04/13 Practical Nurse Clinical Coordinator Relationship Specialty Start Date End Date Bg Chavarria MD [address] [place] [address], [place] [address] PCP - General Internal Medicine 05/04/13 Practical Nurse Clinical Coordinator Relationship Specialty Start Date End Date Bg Chavarria MD [address] [place] [address], [place] [address] PCP - General Internal Medicine 05/04/13 Practical Nurse Clinical Coordinator Relationship Specialty Start Date End Date Bg Chavarria MD [address] [place] [address], [place] [address] PCP - General Internal Medicine 05/04/13 Practical Nurse Clinical Coordinator Relationship Specialty Start Date End Date Bg Chavarria MD [address] [place] [address], [place] [address] PCP - General Internal Medicine 05/04/13 Practical Nurse Clinical Coordinator Relationship Specialty Start Date End Date Bg Chavarria MD [address] [place] [address], [place] [address] PCP - General Internal Medicine 05/04/13 Practical Nurse Clinical Coordinator Relationship Specialty Start Date End Date Bg Chavarria MD [address] [place] [address], [place] [address] PCP - General Internal Medicine 05/04/13 Practical Nurse Clinical Coordinator Relationship Specialty Start Date End Date Bg Chavarria MD [address] [place] [address], [place] [address] PCP - General Internal Medicine 05/04/13 Practical Nurse Clinical Coordinator Relationship Specialty Start Date End Date Bg Chavarria MD [address] [facility] [place] [address] PCP - General Internal Medicine 05/04/13 Practical Nurse Clinical Coordinator Relationship Specialty Start Date End Date Bg Chavarria MD [address] [facility] [place] [address] PCP - General Internal Medicine 05/04/13 Practical Nurse Clinical Coordinator Relationship Specialty Start Date End Date Bg Chavarria MD [address] [facility] [place] [address] PCP - General Internal Medicine 05/04/13 Practical Nurse Clinical Coordinator Relationship Specialty Start Date End Date Bg Chavarria MD [facility] [place] [address] PCP - General Internal Medicine 05/04/13 Practical Nurse Clinical Coordinator Relationship Specialty Start Date End Date Bg Chavarria MD [address] [facility] [place] [address] PCP - General Internal Medicine 05/04/13 Practical Nurse Clinical Coordinator Relationship Specialty Start Date End Date Bg Chavarria MD [address] [facility] [place] [address] PCP - General Internal Medicine 05/04/13 Practical Nurse Clinical Coordinator Relationship Specialty Start Date End Date Bg Chavarria MD [address] [facility] [place] [address] PCP - General Internal Medicine 05/04/13 Practical Nurse Clinical Coordinator Relationship Specialty Start Date End Date Bg Chavarria MD [address] [facility] [place] [address] PCP - General Internal Medicine 05/04/13 Practical Nurse Clinical Coordinator Relationship Specialty Start Date End Date Bg Chavarria MD [address] [facility] [place] [address] PCP - General Internal Medicine 05/04/13 Practical Nurse Clinical Coordinator Relationship Specialty Start Date End Date Bg Chavarria MD [address] [facility] [place] [address] PCP - General Internal Medicine 05/04/13 Practical Nurse Clinical Coordinator Relationship Specialty Start Date End Date Bg Chavarria MD [address] [facility] [place] [address] PCP - General Internal Medicine 05/04/13 Practical Nurse Clinical Coordinator Relationship Specialty Start Date End Date Bg Chavarria MD [address] [facility] [place] [address] PCP - General Internal Medicine 05/04/13 Practical Nurse Clinical Coordinator Relationship Specialty Start Date End Date Bg Chavarria MD [address] [facility] [place] [address] PCP - General Internal Medicine 05/04/13 Practical Nurse Clinical Coordinator Relationship Specialty Start Date End Date Bg Chavarria MD [address] [facility] [place] [address] PCP - General Internal Medicine 05/04/13 Practical Nurse Clinical Coordinator Relationship Specialty Start Date End Date Bg Chavarria MD [address] [facility] [place] [address] PCP - General Internal Medicine 05/04/13 Practical Nurse Clinical Coordinator Relationship Specialty Start Date End Date Bg Chavarria MD [address] [facility] [place] [address] PCP - General Internal Medicine 05/04/13 Practical Nurse Clinical Coordinator Relationship Specialty Start Date End Date Bg Chavarria MD [address] [facility] [place] [address] PCP - General Internal Medicine 05/04/13 Practical Nurse Clinical Coordinator Relationship Specialty Start Date End Date Bg Chavarria MD [address] [facility] [place] [address] PCP - General Internal Medicine 05/04/13 Practical Nurse Clinical Coordinator Relationship Specialty Start Date End Date Bg Chavarria MD [address] [facility] [place] [address] PCP - General Internal Medicine 05/04/13 Practical Nurse Clinical Coordinator Relationship Specialty Start Date End Date Bg Chavarria MD [address] [facility] [place] [address] PCP - General Internal Medicine 05/04/13 Practical Nurse Clinical Coordinator Relationship Specialty Start Date End Date Bg Chavarria MD [address] [facility] [place] [address] PCP - General Internal Medicine 05/04/13 Practical Nurse Clinical Coordinator Relationship Specialty Start Date End Date Bg Chavarria MD [address] [facility] [place] [address] PCP - General Internal Medicine 05/04/13 Practical Nurse Clinical Coordinator Relationship Specialty Start Date End Date Bg Chavarria MD [address] [facility] [place] [address] PCP - General Internal Medicine 05/04/13 Practical Nurse Clinical Coordinator Relationship Specialty Start Date End Date Bg Chavarria MD [address] [facility] [place] [address] PCP - General Internal Medicine 05/04/13 Practical Nurse Clinical Coordinator Relationship Specialty Start Date End Date Bg Chavarria MD [address] [place] [address] PCP - General Internal Medicine 05/04/13 Practical Nurse Clinical Coordinator Relationship Specialty Start Date End Date Bg Chavarria MD [address] [place] [address] PCP - General Internal Medicine 05/04/13 SisReji edmond, [facility] [address] [place] [address] Specialty Cultural Centre Manager Orthopedics 06/06/23 08/01/23 Practical Nurse Clinical Coordinator Relationship Specialty Start Date End Date Bg Chavarria MD [address] [place] [address] PCP - General Internal Medicine 05/04/13 Reji Christensen, [facility] [address] [place] [address] Specialty Cultural Centre Manager Orthopedics 06/06/23 08/01/23 Practical Nurse Clinical Coordinator Relationship Specialty Start Date End Date Bg Chavarria MD [address] [place] [address] PCP - General Internal Medicine 05/04/13 Reji Christensen, [facility] [address] [place] [address] Specialty Cultural Centre Manager Orthopedics 06/06/23 08/01/23 Practical Nurse Clinical Coordinator Relationship Specialty Start Date End Date Bg Chavarria MD [address] [place] [address] PCP - General Internal Medicine 05/04/13 Reji Christensen, [facility] [address] [place] [address] Specialty Cultural Centre Manager Orthopedics 06/06/23 08/01/23 Practical Nurse Clinical Coordinator Relationship Specialty Start Date End Date Bg Chavarria MD [address] [place] [address] PCP - General Internal Medicine 05/04/13 Reji Christensen, [facility] [address] [place] [address] Specialty Cultural Centre Manager Orthopedics 06/06/23 08/01/23 Practical Nurse Clinical Coordinator Relationship Specialty Start Date End Date Bg Chavarria MD [address] [place] [address] PCP - General Internal Medicine 05/04/13 Reji Christensen, [facility] [address] [place] [address] Specialty Cultural Centre Manager Orthopedics 06/06/23 08/01/23 Sincere Hopkins MD [address] [place] [address] Referring Orthopedics 06/29/23 Sincere Hopkins MD [address] [place] [address] Home Care Provider Orthopedics 06/29/23 Practical Nurse Clinical Coordinator Relationship Specialty Start Date End Date Bg Chavarria MD [address] [place] [address] PCP - General Internal Medicine 05/04/13 Reji Christensen, [facility] [address] [place] [address] Specialty Cultural Centre Manager Orthopedics 06/06/23 08/01/23 Sincere Hopkins MD [address] [place] [address] Referring Orthopedics 06/29/23 Sincere Hopkins MD [address] [place] [address] Home Care Provider Orthopedics 06/29/23 Practical Nurse Clinical Coordinator Relationship Specialty Start Date End Date Bg Chavarria MD [address] [place] [address] PCP - General Internal Medicine 05/04/13 Sincere Hopkins MD [address] [place] [address] Referring Orthopedics 06/29/23 Sincere Hopkins MD [facility] [address] Home Care Provider Orthopedics 06/29/23 Practical Nurse Clinical Coordinator Relationship Specialty Start Date End Date Bg Chavarria MD [address] [place] [address] PCP - General Internal Medicine 05/04/13 Sincere Hopkins MD [facility] [place] [address] Referring Orthopedics 06/29/23 Sincere Hopkins MD [address] [place] [address] Home Care Provider Orthopedics 06/29/23 Practical Nurse Clinical Coordinator Relationship Specialty Start Date End Date Bg Chavarria MD [address] [place] [address] PCP - General Internal Medicine 05/04/13 Sincere Hopkins MD [address] [place] [address] Referring Orthopedics 06/29/23 Sincere Hopkins MD [address] [place] [address] Home Care Provider Orthopedics 06/29/23 Practical Nurse Clinical Coordinator Relationship Specialty Start Date End Date Bg Chavarria MD [address] [place] [address] PCP - General Internal Medicine 05/04/13 Sincere Hopkins MD [address] [place] [address] Referring Orthopedics 06/29/23 Sincere Hopkins MD [facility] [address] Home Care Provider Orthopedics 06/29/23 Practical Nurse Clinical Coordinator Relationship Specialty Start Date End Date Bg Chavarria MD [address] [place] [address] PCP - General Internal Medicine 05/04/13 Sincere Hopkins MD [facility] [address] Referring Orthopedics 06/29/23 Sincere Hopkins MD [address] [place] [address] Home Care Provider Orthopedics 06/29/23 Practical Nurse Clinical Coordinator Relationship Specialty Start Date End Date Bg Chavarria MD [address] [place] [address] PCP - General Internal Medicine 05/04/13 Sincere Hopkins MD [address] [place] [address] Referring Orthopedics 06/29/23 Sincere Hopkins MD [address] [place] [address] Home Care Provider Orthopedics 06/29/23 Practical Nurse Clinical Coordinator Relationship Specialty Start Date End Date Bg Chavarria MD [address] [place] [address] PCP - General Internal Medicine 05/04/13 Sincere Hopkins MD [address] [place] [address] Referring Orthopedics 06/29/23 Sincere Hopkins MD [address] [place] [address] Home Care Provider Orthopedics 06/29/23 Practical Nurse Clinical Coordinator Relationship Specialty Start Date End Date Bg Chavarria MD [address] [place] [address] PCP - General Internal Medicine 05/04/13 Sincere Hopkins MD [address] [place] [address] Referring Orthopedics 06/29/23 Sincere Hopkins MD [address] [place] [address] Home Care Provider Orthopedics 06/29/23 Practical Nurse Clinical Coordinator Relationship Specialty Start Date End Date Bg Chavarria MD [address] [place] [address] PCP - General Internal Medicine 05/04/13 Sincere Hopkins MD [address] [place] [address] Referring Orthopedics 06/29/23 Sincere Hopkins MD [address] [place] [address] Home Care Provider Orthopedics 06/29/23 Practical Nurse Clinical Coordinator Relationship Specialty Start Date End Date Bg Chavarria MD [address] [place] [address] PCP - General Internal Medicine 05/04/13 Sincere Hopkins MD [address] [place] [address] Referring Orthopedics 06/29/23 Sincere Hopkins MD [address] [place] [address] Home Care Provider Orthopedics 06/29/23 Practical Nurse Clinical Coordinator Relationship Specialty Start Date End Date Bg Chavarria MD [address] [place] [address] PCP - General Internal Medicine 05/04/13 Sincere Hopkins MD [address] [place] [address] Referring Orthopedics 06/29/23 Sincere Hopkins MD [address] [place] [address] Home Care Provider Orthopedics 06/29/23 Practical Nurse Clinical Coordinator Relationship Specialty Start Date End Date Bg Chavarria MD [address] [place] [address] PCP - General Internal Medicine 05/04/13 Sincere Hopkins MD [address] [place] [address] Referring Orthopedics 06/29/23 Sincere Hopkins MD [address] [place] [address] Home Care Provider Orthopedics 06/29/23 Practical Nurse Clinical Coordinator Relationship Specialty Start Date End Date Bg Chavarria MD [address] [place] [address] PCP - General Internal Medicine 05/04/13 Sincere Hopkins MD [address] [place] [address] Referring Orthopedics 06/29/23 Sincere Hopkins MD [address] [place] [address] Home Care Provider Orthopedics 06/29/23 Practical Nurse Clinical Coordinator Relationship Specialty Start Date End Date Bg Chavarria MD [address] [place] [address] PCP - General Internal Medicine 05/04/13 Sincere Hopkins MD [address] [place] [address] Referring Orthopedics 06/29/23 Sincere Hopkins MD [address] [place] [address] Home Care Provider Orthopedics 06/29/23 Practical Nurse Clinical Coordinator Relationship Specialty Start Date End Date Bg Chavarria MD [address] [place] [address] PCP - General Internal Medicine 05/04/13 Sincere Hopkins MD [facility] [place] [address] Referring Orthopedics 06/29/23 Sincere Hopkins MD [facility] [address] Home Care Provider Orthopedics 06/29/23 Practical Nurse Clinical Coordinator Relationship Specialty Start Date End Date Bg Chavarria MD [address] [place] [address] PCP - General Internal Medicine 05/04/13 Sincere Hopkins MD [facility] [place] [address] Referring Orthopedics 06/29/23 Sincere Hopkins MD [address] [place] [address] Home Care Provider Orthopedics 06/29/23 Practical Nurse Clinical Coordinator Relationship Specialty Start Date End Date Bg Chavarria MD [address] [place] [address] PCP - General Internal Medicine 05/04/13 Sincere Hopkins MD [address] [place] [address] Referring Orthopedics 06/29/23 Sincere Hopkins MD [facility] [place] [address] Home Care Provider Orthopedics 06/29/23 Practical Nurse Clinical Coordinator Relationship Specialty Start Date End Date Bg Chavarria MD [address] [place] [address] PCP - General Internal Medicine 05/04/13 Sincere Hopkins MD [facility] [address] Referring Orthopedics 06/29/23 Sincere Hopkins MD [facility] [address] Home Care Provider Orthopedics 06/29/23 Practical Nurse Clinical Coordinator Relationship Specialty Start Date End Date Bg Chavarria MD [address] [place] [address] PCP - General Internal Medicine 05/04/13 Sincere Hopkins MD [address] [place] [address] Referring Orthopedics 06/29/23 Sincere Hopkins MD [address] [place] [address] Home Care Provider Orthopedics 06/29/23 Practical Nurse Clinical Coordinator Relationship Specialty Start Date End Date Bg Chavarria MD [address] [place] [address] PCP - General Internal Medicine 05/04/13 Sincere Hopkins MD [address] [place] [address] Referring Orthopedics 06/29/23 Sincere Hopkins MD [address] [place] [address] Home Care Provider Orthopedics 06/29/23 Practical Nurse Clinical Coordinator Relationship Specialty Start Date End Date Bg Chavarria MD [address] [place] [address] PCP - General Internal Medicine 05/04/13 Reji Christensen, [facility] [address] [place] [address] Specialty Cultural Centre Manager Orthopedics 06/06/23 08/01/23 Sincere Hopkins MD [address] [place] [address] Referring Orthopedics 06/29/23 Sincere Hopkins MD [address] [place] [address] Home Care Provider Orthopedics 06/29/23 Practical Nurse Clinical Coordinator Relationship Specialty Start Date End Date Bg Chavarria MD [address] [place] [address] PCP - General Internal Medicine 05/04/13 Practical Nurse Clinical Coordinator Relationship Specialty Start Date End Date Bg Chavarria MD [address] [place] [address] PCP - General Internal Medicine 05/04/13 Practical Nurse Clinical Coordinator Relationship Specialty Start Date End Date Bg Chavarria MD [address] [place] [address] PCP - General Internal Medicine 05/04/13 Practical Nurse Clinical Coordinator Relationship Specialty Start Date End Date Bg Chavarria MD [address] [place] [address] PCP - General Internal Medicine 05/04/13 Sincere Hopkins MD [address] [place] [address] Referring Orthopedics 06/29/23 Sincere Hopkins MD [address] [place] [address] Home Care Provider Orthopedics 06/29/23 Practical Nurse Clinical Coordinator Relationship Specialty Start Date End Date Bg Chavarria MD [address] [place] [address] PCP - General Internal Medicine 05/04/13 Sincere Hopkins MD [address] [place] [address] Referring Orthopedics 06/29/23 Sincere Hopkins MD [address] [place] [address] Home Care Provider Orthopedics 06/29/23 Practical Nurse Clinical Coordinator Relationship Specialty Start Date End Date Bg Chavarria MD [address] [place] [address] PCP - General Internal Medicine 05/04/13 Sincere Hopkins MD [address] [place] [address] Referring Orthopedics 06/29/23 Sincere Hopkins MD [address] [place] [address] Home Care Provider Orthopedics 06/29/23 Practical Nurse Clinical Coordinator Relationship Specialty Start Date End Date Bg Chavarria MD [address] [place] [address] PCP - General Internal Medicine 05/04/13 Sincere Hopkins MD [address] [place] [address] Referring Orthopedics 06/29/23 Sincere Hopkins MD [address] [place] [address] Home Care Provider Orthopedics 06/29/23 Practical Nurse Clinical Coordinator Relationship Specialty Start Date End Date Bg Chavarria MD [address] [place] [address] PCP - General Internal Medicine 05/04/13 Sincere Hopkins MD [address] [place] [address] Referring Orthopedics 06/29/23 Sincere Hopkins MD [address] [place] [address] Home Care Provider Orthopedics 06/29/23 Practical Nurse Clinical Coordinator Relationship Specialty Start Date End Date Bg Chavarria MD [address] [place] [address] PCP - General Internal Medicine 05/04/13 Sincere Hopkins MD [facility] [address] Referring Orthopedics 06/29/23 Sincere Hopkins MD [address] [place] [address] 48761 Home Care Provider Orthopedics 06/29/23 Practical Nurse Clinical Coordinator Relationship Specialty Start Date End Date Bg Chavarria MD [address] [place] [address] PCP - General Internal Medicine 05/04/13 Sincere Hopkins MD [address] [place] [address] 19151 Referring Orthopedics 06/29/23 Sincere Hopkins MD [address] [place] [address] 17874 Home Care Provider Orthopedics 06/29/23 Luis Manuel Hernandez, CARMEL.DRAW HAND [address] [place] [address] Care Technician Internal Medicine 09/07/24 Linda Silva 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 [address] [place] [address] 46[address] Care Technician Internal Medicine 09/07/24 Practical Nurse Clinical Coordinator Relationship Specialty Start Date End Date Bg Chavarria MD [address] [place] [address] PCP - General Internal Medicine 05/04/13 Sincere Hopkins MD [address] [place] [address] 96656 Referring Orthopedics 06/29/23 Sincere Hopkins MD [address] [place] [address] 76752 Home Care Provider Orthopedics 06/29/23 Luis Manuel Hernandez, CARMEL.DRAW HAND [address] [place] [address] 65[address] Care Technician Internal Medicine 09/07/24 Linda Silva 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 [address] [place] [address] 33406 Care Technician Internal Medicine 09/07/24 Practical Nurse Clinical Coordinator Relationship Specialty Start Date End Date Bg Chavarria MD [address] [place] [address] PCP - General Internal Medicine 05/04/13 Sincere Hopkins MD [address] [place] [address] [id number] Referring Orthopedics 06/29/23 Sincere Hopkins MD [address] [place], [place] [id number] Home Care Provider Orthopedics 06/29/23 Luis Manuel Hernandez, REFRIGERATION BRAZER/SOLDERER.DRAW HAND [address] [place] [address] Care Technician Internal Medicine 09/07/24 Linda Silva 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 [address] [place] [address] Care Technician Internal Medicine 09/07/24 Practical Nurse Clinical Coordinator Relationship Specialty Start Date End Date Bg Chavarria MD [address] [place] [address] PCP - General Internal Medicine 05/04/13 Sincere Hopkins MD [address] [place] [address] 72892 Referring Orthopedics 06/29/23 Sincere Hopkins MD [address] [place] [address] 04147 Home Care Provider Orthopedics 06/29/23 Luis Manuel Hernandez, REFRIGERATION BRAZER/SOLDERER.DRAW HAND [address] [place] [address] Care Technician Internal Medicine 09/07/24 Linda Silva 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 [address] [place] [address] Care Technician Internal Medicine 09/07/24 Practical Nurse Clinical Coordinator Relationship Specialty Start Date End Date Bg Chavarria MD [address] [place] [address] PCP - General Internal Medicine 05/04/13 Sincere Hopkins MD [address] [place] [address] Referring Orthopedics 06/29/23 Sincere Hopkins MD [facility] [place] [address] Home Care Provider Orthopedics 06/29/23 Luis Manuel Hernandez APRN.DRAW HAND [address] [place] [address] Care Technician Internal Medicine 09/07/24 Linda Silva APRN.MORTGAGE LOAN ASSISTANT [address] [place] [address] 98238 Care Technician Internal Medicine 09/07/24 Practical Nurse Clinical Coordinator Relationship Specialty Start Date End Date Bg Chavarria MD [address] [place] [address] 66718 PCP - General Internal Medicine 05/04/13 Sincere Hopkins MD [facility] [place] [address] Referring Orthopedics 06/29/23 Sincere Hopkins MD [facility] [address] Home Care Provider Orthopedics 06/29/23 Luis Manuel Hernandez APRN.DRAW HAND [facility] [place] [address] Care Technician Internal Medicine 09/07/24 Linda Silva APRN.MORTGAGE LOAN ASSISTANT [address] [place] [address] 76835 Care Technician Internal Medicine 09/07/24 Practical Nurse Clinical Coordinator Relationship Specialty Start Date End Date Bg Chavarria MD [address] [place] [address] PCP - General Internal Medicine 05/04/13 Sincere Hopkins MD [address] [place] [address] Referring Orthopedics 06/29/23 Sincere Hopkins MD [address] [place] [address] Home Care Provider Orthopedics 06/29/23 Luis Manuel Hernandez APRN.DRAW HAND [address] [place] [address] 95885 Care Technician Internal Medicine 09/07/24 Linda Silva APRN.MORTGAGE LOAN ASSISTANT [address] [place] [address] 70793 Care Technician Internal Medicine 09/07/24 Practical Nurse Clinical Coordinator Relationship Specialty Start Date End Date Bg Chavarria MD [facility] [place] [address] PCP - General Internal Medicine 05/04/13 Sincere Hopkins MD [address] [place] [address] Referring Orthopedics 06/29/23 Sincere Hopkins MD [address] [place], [place] [id number] Home Care Provider Orthopedics 06/29/23 Luis Manuel Hernandez, REFRIGERATION BRAZER/SOLDERER.DRAW HAND [address] [facility] [place] [address] Care Technician Internal Medicine 09/07/24 Linda Silva 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 [address] [place] [address] Care Technician Internal Medicine 09/07/24 Practical Nurse Clinical Coordinator Relationship Specialty Start Date End Date Bg Chavarria MD [address] [place] [address] PCP - General Internal Medicine 05/04/13 Sincere Hopkins MD [address] [place] [address] Referring Orthopedics 06/29/23 Sincere Hopkins MD [address] [place] [address] Home Care Provider Orthopedics 06/29/23 Luis Manuel Hernandez, REFRIGERATION BRAZER/SOLDERER.DRAW HAND [address] [place] [address] Care Technician Internal Medicine 09/07/24 Linda Silva 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 [address] [place] [address] Care Technician Internal Medicine 09/07/24 Practical Nurse Clinical Coordinator Relationship Specialty Start Date End Date Bg Chavarria MD [address] [place] [address] PCP - General Internal Medicine 05/04/13 Sincere Hopkins MD [address] [place] [address] Referring Orthopedics 06/29/23 Sincere Hopkins MD [facility] [place] [address] Home Care Provider Orthopedics 06/29/23 Luis Manuel Hernandez APRN.DRAW HAND [address] [place] [address] Care Technician Internal Medicine 09/07/24 Linda Silva APRN.MORTGAGE LOAN ASSISTANT [address] [place] [address] Care Technician Internal Medicine 12/22/24 Practical Nurse Clinical Coordinator Relationship Specialty Start Date End Date Bg Chavarria MD [address] [place] [address] PCP - General Internal Medicine 05/04/13 Sincere Hopkins MD [facility] [place] [address] Referring Orthopedics 06/29/23 Sincere Hopkins MD [facility] [address] Home Care Provider Orthopedics 06/29/23 Luis Manuel Hernandez APRN.DRAW HAND [address] [place] [address] Care Technician Internal Medicine 09/07/24 Linda Silva APRN.MORTGAGE LOAN ASSISTANT [address] [place] [address] Care Technician Internal Medicine 12/22/24 Practical Nurse Clinical Coordinator Relationship Specialty Start Date End Date Bg Chavarria MD [address] [place] [address] PCP - General Internal Medicine 05/04/13 Sincere Hopkins MD [address] [place] [address] Referring Orthopedics 06/29/23 Sincere Hopkins MD [address] [place], [place] [id number] Home Care Provider Orthopedics 06/29/23 Luis Manuel Hernandez APRN.DRAW HAND [address] [place] [address] Care Technician Internal Medicine 09/07/24 Linda Silva APRN.MORTGAGE LOAN ASSISTANT [address] [place] [address] Care Technician Internal Medicine 12/22/24 Practical Nurse Clinical Coordinator Relationship Specialty Start Date End Date Bg Chavarria MD [address] [place] [address] PCP - General Internal Medicine 05/04/13 Sincere Hopkins MD [address] [place] [address] Referring Orthopedics 06/29/23 Sincere Hopkins MD [address] [place] [address] Home Care Provider Orthopedics 06/29/23 Linda Silva, 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 [address] [facility] [place] [address] Care Technician Internal Medicine 12/22/24 Luis Manuel Hernandez, REFRIGERATION BRAZER/SOLDERER.DRAW HAND [address] [facility] [place] [address] Care Technician Internal Medicine 02/17/25 Practical Nurse Clinical Coordinator Relationship Specialty Start Date End Date Bg Chavarria MD [address] [place] [address] PCP - General Internal Medicine 05/04/13 Sincere Hopkins MD [address] [place] [address] 91359 Referring Orthopedics 06/29/23 Sincere Hopkins MD [address] [place] [address] 55447 Home Care Provider Orthopedics 06/29/23 Linda Silva, 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 [address] [facility] [place] [address] Care Technician Internal Medicine 12/22/24 Luis Manuel Hernandez, REFRIGERATION BRAZER/SOLDERER.DRAW HAND [address] [place] [address] Care Technician Internal Medicine 02/17/25 Practical Nurse Clinical Coordinator Relationship Specialty Start Date End Date Bg Chavarria MD [address] [facility] [place] [address] PCP - General Internal Medicine 05/04/13 Sincere Hopkins MD [address] [place] [address] Referring Orthopedics 06/29/23 Sincere Hopkins MD [address] [place] [address] 49959 Home Care Provider Orthopedics 06/29/23 Linda Silva APRN.MORTGAGE LOAN ASSISTANT [address] [place] [address] Care Technician Internal Medicine 12/22/24 Luis Manuel Hernandez APRN.DRAW HAND [address] [place] [address] Care Technician Internal Medicine 02/17/25 Practical Nurse Clinical Coordinator Relationship Specialty Start Date End Date Bg Chavarria MD [address] [place] [address] PCP - General Internal Medicine 05/04/13 Sincere Hopkins MD [address] [place] [address] 65352 Referring Orthopedics 06/29/23 Sincere Hopkins MD [address] [place] [address] 45140 Home Care Provider Orthopedics 06/29/23 Luis Manuel Hernandez APRN.DRAW HAND [address] [place] [address] Care Technician Internal Medicine 09/07/24 02/16/25 Linda Silva APRN.MORTGAGE LOAN ASSISTANT [address] [place] [address] Care Technician Internal Medicine 12/22/24 Luis Manuel Hernandez, REFRIGERATION BRAZER/SOLDERER.DRAW HAND [address] [place], [place] [address] [facility] Internal Medicine 02/17/25 Practical Nurse Clinical Coordinator Relationship Specialty Start Date End Date Bg Chavarria MD [address] [place] [address] PCP - General Internal Medicine 05/04/13 Sincere Hopkins MD [facility] [place], [place] [id number] Referring Orthopedics 06/29/23 Sincere Hopkins MD [address] [place] [address] 10811 Home Care Provider Orthopedics 06/29/23 Linda Silva 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 [address] [place] [address] [facility] Internal Medicine 12/22/24 Luis Manuel Hernandez, REFRIGERATION BRAZER/SOLDERER.DRAW HAND [address] [place] [address] [facility] Internal Medicine 02/17/25 Team Status: Active Member Role/Relationship Status Dates Dr. Bg Chavarria MD Family Provider Active Dr. Bg Chavarria MD Primary Care Provider Active Team Status: Inactive Member Role/Relationship Status Dates Dr. Bg Chavarria MD Primary Care Provider Active Start: April 20, 2025 End: April 20, 2025 Dr. Bg Chavarria MD Referring Provider Active Start: April 20, 2025 End: April 20, 2025 Rekha Rojas MANAGER INTERVENTIONAL, MANAGER INTERVENTIONAL-C Attending Provider Active Start: April 20, 2025 End: April 20, 2025 Practical Nurse Clinical Coordinator Relationship Specialty Start Date End Date Bg Chavarria MD [address] [place] [address] PCP - General Internal Medicine 05/04/13 Sincere Hopkins MD [address] [place] [address] Referring Orthopedics 06/29/23 Sincere Hopkins MD [address] [place] [address] Home Care Provider Orthopedics 06/29/23 Linda Silva APRN.MORTGAGE LOAN ASSISTANT [address] [place] [address] Care Technician Internal Medicine 12/22/24 Luis Manuel Hernandez APRN.DRAW HAND [address] [place] [address] Care Technician Internal Medicine 02/17/25 Practical Nurse Clinical Coordinator Relationship Specialty Start Date End Date Bg Chavarria MD [address] [place] [address] PCP - General Internal Medicine 05/04/13 Sincere Hopkins MD [address] [place] [address] Referring Orthopedics 06/29/23 Sincere Hopkins MD [address] [place] [address] Home Care Provider Orthopedics 06/29/23 Linda Silva APRN.MORTGAGE LOAN ASSISTANT [address] [place] [address] Care Technician Internal Medicine 12/22/24 Luis Manuel Hernandez, CARMEL.DRAW HAND [address] [place] [address] Care Technician Internal Medicine 02/17/25 Reason for Visit (unrecogniz ed section and content) Reason Comments Physical Therapy Specialty Diagnoses / Procedures Referred By Contac t Referred To Contact PHYSICAL THERAPY Diagnoses Status post hip replacement, right Procedures CONSULT TO PHYSICAL THERAPY PHYSICAL THERAPY EVALUATION HIGH COMPLEX 45 MINS Joe Jiang PA-C [address] [address] Haley Snyder, PT Referral ID Status Reason Start Date Expiration Date Visits Requested Visits Authorized [id number] Authorized PCP Requested Referral 3 09/29/2023 99 99 Reason Comments PT Progress Note Reason Comments Orders Reason Comments Insurance Authorization risedronate (ACT PAULIE) 35 mg tablet Refill Request Reason Comments Appointment Reason Comments New Follow Up Hip Replacement Reason Onset Date Comments Follow Up Radiology Mammogram 02/27/2022 at [facility] Reason Comments Consult colonoscopy Specialty Diagnoses / Procedures Referred By Contac t Referred To Contact Gastroenterology Diagnoses Colon cancer screening Procedures CONSULT TO GASTROENTEROLOGY OFFICE/OUTPATIENT NEW HIGH MDM 60-74 MINUTES Bg Chavarria MD [facility] [place] [address] Referral ID Status Reason Start Date Expiration Date V isits Requested Visits Authorized [id number] Closed PCP Requested Referral 02/27/2022 02/27/2023 1 1 Reason Comments Radiology Mammogram Specialty Diagnoses / Procedures Referred By Contac t Referred To Contact BR IMAGING Diagnoses Breast cancer screening by mammogram Procedures ANGIE SCREENING SCREENING MAMMOGRAPHY BI 2-VIEW BREAST INC CAD Bg Chavarria MD [address] [place] [address] [facility] [address] [place] [address] Referral ID Status Reason Start Date Expiration Date V isits Requested Visits Authorized [id number] Closed Auto-Generate d Referral 02/27/2022 05/28/2022 3 1 Reason Comments Covid19 Concern Reason Comments Patient Update Home COVID test was positive, waiting for PCR test results Medication Request Reason Comments Refill Request Reason Onset Date Comments Refill Request 05/07/2022 Reason Onset Date Comments Refill Request 05/31/2022 Reason Comments Follow Up Reason Comments Medication Update Amb refill: consent approved Reason Comments Pain right side buttock s tates fell out of shower 3 weeks ago Reason Comments Pain R hip and groin pain Specialty Diagnoses / Procedures Referred By Contac t Referred To Contact [facility] Diagnoses Trochanteric bursitis of right hip Procedures CONSULT TO PHYSICAL THERAPY PHYSICAL THERAPY EVALUATION HIGH COMPLEX 45 MINS Lorena Jacobsen MD [address] [address] [facility] [address] [address] Referral ID Status Reason Start Date Expiration Date Visits Requested Visits Authorized [id number] Authorized PCP Requested Referral Auto-Generate d Referral 02/07/2023 02/07/2024 99 99 Reason Comments PT Progress Note Specialty Diagnoses / Procedures Referred By Katerina t Referred To Contact [facility] Diagnoses Trochanteric bursitis of right hip Procedures CONSULT TO PHYSICAL THERAPY PHYSICAL THERAPY EVALUATION HIGH COMPLEX 45 MINS Lorena Jacobsen MD [address] [address] [facility] Therapy [address] [address] Reason Comments F/U 4 month Reason Comments Patient Question Reason Comments Patient Update Reason Comments Medication Request Reason Comments Acute Visit right hip pain Reason Comments Patient Question Patient Update Reason Comments Results Reason Comments Refill Request RPH Managed Refill Reason Comments Established Patient Follow Up Pain Reason Comments Schedule Surgery Patient Update Reason Comments Established Patient Hip Replacement Pain Reason Comments Pre-Op Teaching Reason Comments Sore Throat X2 days Reason Comments Home Care Confirmation Call Reason Comments Post Op Hip Replacement Referral ID Status Reason Start Date Expiration Date Visits Requested Visits Authorized [id number] Authorized PCP Requested Referral 3 10/29/2023 99 99 Reason Comments Covid Positive Reason Comments 4 month follow up Reason Comments Same Day Appointment Left knee pain afte r fall 1 week ago Reason Comments New Pain Reason Comments Follow Up Hip Replacement Reason Comments Established Patient Follow up lightheade d and chest pain Reason Comments Syncope Reason Comments Recheck Reason Comments Refill Request RPH managed refill Reason Comments Refill Request Reason Comments CARD New 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 Haile Reason Onset Date Comments Results 05/07/2025 Continuous Active and Recently Administ ered Medications (unrecognized section and content) Medication Order 02/28/2022 03/01/2022 03/02/2022 NaCl 0.9% iv infusion (CANCELED) 30 mL/hr, INTRAVENOUS, CONTINUOUS, Starting on Sat03/02/22 at 1200, Until Sat03/02/22 at 1329, Preprocedure 1200 (New Bag/Syring e/Bottle - Provider: Farrah Dorsey RN)1329 (Due: Infusion Complete) PRN Medication Order 02/28/2022 03/01/2022 03/02/2022 bupivacaine (PF) 0.5 % (5 mg/mL) injection (CANCELED) X (OR/PROCEDURE) PRN, Starting on Sat03/02/22 at 1322, Until Sat03/02/22 at 1329, Intraprocedure 1322 (Given - Provid er: Anibal Lake MD) fentaNYL 50 mcg/mL injection (SUBLIMAZE) (CANCELED) X (OR/PROCEDURE) PRN, Starting on Sat03/02/22 at 1308, Until Sat03/02/22 at 1329, Intraprocedure 1308 (Given - Provid er: Adelina Downey RN) lidocaine (PF) 20 mg/mL (2 %) injection (XYLOCAINE) (CANCELED) X (OR/PROCEDURE) PRN, Starting on Sat03/02/22 at 1322, Until Sat03/02/22 at 1329, Intraprocedure 1322 (Given - Provid er: Adelina Downey RN) midazolam (PF) injection (VERSED) (CANCELED) X (OR/PROCEDURE) PRN, Starting on Sat03/02/22 at 1308, Until Sat03/02/22 at 1329, Intraprocedure 1308 (Given - Provid er: Adelina Downey RN) triamcinolone acetonide injection (KeNALog 40) (CANCELED) X (OR/PROCEDURE) PRN, Starting on Sat03/02/22 at 1323, Until Sat03/02/22 at 1329, Intraprocedure 1323 (Given - Provid er: Anibal Lake MD) INFORMATION SOURCE (unrecogn ized section and content) DATE CREATED AUTHOR 07/21/2024 [facility] DATE CREATED AUTHOR AUTHOR'S ORGANIZ ATION 04/22/2025 [facility] DATE CREATED AUTHOR AUTHOR'S ORGANIZ ATION 05/01/2025 [facility] DATE CREATED AUTHOR AUTHOR'S ORGANIZ ATION 05/10/2025 [facility] Goals (unrecognized section and content) Goals may be documented in a n alternate section FOR RECORDS PERTAINING TO PATIENTS WHO ARE OR HAVE BEEN ENROLLED IN A CHEMICAL DEPENDENCY/SUBSTANCEABUSE PROGRAM, SOME INFORMATION MAY BE OMITTED. This clinical summary was aggregated from multiple sources. Caution should be exercised in using it in the provision of clinical care. This summary normalizes information from multiple sources, and as a consequence, information in this document may materially change the coding, format and clinical context of patient data. In addition, data may be omitted in some cases. CLINICAL DECISIONS SHOULD BE BASED ON THE PRIMARY CLINICAL RECORDS. [employer] [facility]. provides no warranty or guarantee of the accuracy or completeness of information in this document.
--- NOTE | 2025-05-22 18:26 | RAD_ITS ---
PROCEDURE: CHEST 1 VIEW (PORTABLE) 05/22/2025 REASON FOR EXAM: WEAKNESS Lightheaded and diaphoretic today TECHNIQUE: Frontal view of the chest. COMPARISON: None. FINDINGS: Hardware: None. Heart: Normal size Lungs: Clear and expanded Bones: Unremarkable. No aggressive process. Moderate dextro scoliosis of the lower thoracic spine Other: RAD/Chest 1 View (Portable) IMPRESSION: No acute process detected radiographically Reading Location: [facility]
--- NOTE | 2025-05-22 18:27 | EKG12_ITS ---
Test Reason : WEAKNESS Blood Pressure : */* mmHG Vent. Rate : 83 BPM Atrial Rate : 83 BPM P-R Int : 152 ms QRS Dur : 72 ms QT Int : 372 ms P-R-T Axes : 52 -36 38 degrees QTcB Int : 437 ms Normal sinus rhythm with sinus arrhythmia Left axis deviation Abnormal ECG Confirmed by OK BALDWIN, CHANEL ([id number]), film editor ARTI REYES ([id number]) on 05/24/2025 1:05:06 PM Referred By: Confirmed By: CHANEL EUCEDA MD
[2025-05-22] MEDS: 0.9% Normal Saline (1000mL) 1,000 ML 1000 ML IV (18:32)
[2025-05-22 19:10] LABS: Hematocrit 25.4 % (37-47); Hemoglobin 8.3 g/dL (12.0-15.0); Immature Granulocytes Count 0.050 X10^3/uL (0.0-0.0); Mean Corp Hgb Conc 32.7 g/dL (32-36); Mean Corpuscular Volume 88.5 fL (81-99); Mean Platelet Vol. 9.3 fl (6.2-12.0); NRBC Flagged by Analyzer 0 % (0-5); Platelet Count 256 K/mm3 (150-450); RBC Distribution Width CV 13.2 % (11.6-14.6); RBC Distribution Width SD 43.0 fl (35.1-43.9); Red Blood Count 2.87 M/mm3 (4.2-5.4); White Blood Count 9.4 K/mm3 (4.4-11.0)
[2025-05-22 19:12] LABS: AST(SGOT) 20 U/L (<=31); Alanine Aminotransfer ALT/SGPT 12 U/L (<=34); Albumin, Serum 3.7 g/dL (3.4-4.8); Alkaline Phosphatase 54 U/L (35-104); Anion Gap 13 (5-15); BUN 81 mg/dL (4-19); BUN/Creat Ratio 88.2 RATIO (10-20); Calcium,Total 9.1 mg/dL (7.6-11.0); Carbon Dioxide 23.6 mmol/L (21.0-32.0); Chloride 101 mmol/L (98-108); Estimated Creatinine Clearance 34.96 ml/min (50-250); Globulin 2.3 g/dL (2.2-4.2); Glucose 127 mg/dL (70-99); Potassium 4.3 mmol/L (3.3-5.1)
[2025-05-22 19:25] LABS: Troponin T High Sensitivity 19 ng/L (<=14)
[2025-05-22 19:32] LABS: Mucous, Urine 0 SEEN /hpf (<or=2+)
[2025-05-22 19:57] LABS: Color, Urine Straw (Yellow); Glucose, Dipstick Normal (Normal); Ketone-Dipstick Negative (Negative); Leukocyte Esterase-Dipstick Negative /ul (Negative); Nitrite-Dipstick Negative (Negative); Occult Blood-Urine Negative /ul (Negative); Protein-Dipstick Negative (Negative); Specific Gravity, Urine 1.010 (1.002-1.030); Urine Bilirubin Dipstick Negative (Negative)
[2025-05-22 20:20] LABS: Red Blood Cells-Urine 0-5 SEEN /hpf (0-5); Squamous Epithelial Cells - UA 0-5 SEEN /hpf (5-10)
== END 2025-05-22 21:37 | disposition home or self-care (01) ==
PROVIDERS: Emergency Provider Emergency Medicine; PCP Internal Medicine; Visit Provider Emergency Medicine
DX: E86.0 Dehydration (principal); E11.9 Type 2 diabetes mellitus without complications; E78.00 Pure hypercholesterolemia, unspecified; Z87.891 Personal history of nicotine dependence; D64.9 Anemia, unspecified; K21.9 Gastro-esophageal reflux disease without esophagitis
CPT/HCPCS: 71045; 80053; 81001; 84484; 85025; 93005; 96361; 96374; 96376; 99284; A4216; J2405

== ENCOUNTER 2025-05-29 12:45 | Inpatient (IN) | payer MEDICARE, OTHER, SELFPAY ==
[2025-05-29] VITALS (11 sets, daily range): BP systolic 109–151; BP diastolic 52–76; PULSE 56–100; RESP 16–18; TEMP 35.9–37.1; O2SAT 93–100; BMI 21.9; BMI 22.0
--- NOTE | 2025-05-29 13:40 | ED.VIS.GI ---
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 She relates history that she was seen in the emergency department and it was felt that she was dehydrated so she received IV fluids, and was discharged. Since the following day she states has been having dark stool. She does take Eliquis status post ablation, but the ablation was not for atrial fibrillation. In review of her problem list she did have paroxysmal SVT. She had been feeling weak and fatigued as well. She states that she saw her primary care provider at the [facility] and had lab work drawn yesterday. They saw on the IR [employer] application that her hemoglobin had dropped significantly to 7.3 as compared to Saturday when it was normal. They were told to come to the emergency department with high suspicion for gastrointestinal bleeding. She stopped taking meloxicam as well. She denies any nausea or vomiting, no exacerbating or alleviating factors but states that now she is currently constipated. Denies other bleeding diathesis. [facility] Medical History Aortic valve insufficiency Abnormality of gait Osteopenia Elevated LDL cholesterol level Vitamin D deficiency Trochanteric bursitis of right hip SI (sacroiliac) joint inflammation Former smoker Abnormal electro-oculogram GERD (gastroesophageal reflux disease) Type 2 diabetes mellitus Preop cardiovascular exam Multiple sclerosis DJD (degenerative joint disease) of cervical spine Expressive aphasia Home Medications ?Medication ?Instructions ?Recorded ?Last Taken ?Type conjugated estrogens 0.625 mg/gram 0.3125 mg vaginal DAILY Estrogen 01/24/21 Unknown History vaginal cream lactase 9,000 unit tablet (Lactase 9,000 unit PO ONCE PRN lactose 01/24/21 Unknown History Fast Acting) intolerance metformin 500 mg tablet 500 mg PO DAILY Diabetes 01/24/21 Unknown History cyanocobalamin (vitamin B-12) 1,000 mcg IM QMONTH #0 mL 02/15/21 Unknown Rx 1,000 mcg/mL injection solution alendronate 70 mg tablet 70 mg PO QWEEK 08/06/24 Unknown History cholecalciferol (vitamin D3) 125 5,000 unit PO QWEEK Supplement 08/13/24 Unknown History mcg (5,000 unit) capsule meloxicam 15 mg tablet 7.5 mg PO ONCE Arthritis pain 08/13/24 Unknown History metoprolol succinate 25 mg 12.5 mg PO QDAY 08/31/24 Unknown History tablet,extended release 24 hr apixaban 2.5 mg tablet (Eliquis) 2.5 mg PO BID 04/20/25 Unknown History Allergy/AdvReac Type Severity Reaction Status Date / Time Penicillins Allergy Severe Rash Verified 05/29/25 12:47 amoxicillin Allergy Rash Verified 05/29/25 12:47 clindamycin AdvReac Severe Diarrhea Verified 05/29/25 12:47 prochlorperazine (From AdvReac Other Verified 05/29/25 12:47 Compazine) triazolam (From Halcion) AdvReac Other Verified 05/29/25 12:47 Family History Father Colon cancer Mother Thyroid disorder Osteoporosis Surgical History History of right hip replacement History of left hip replacement History of tonsillectomy History of bunionectomy History of left inguinal hernia repair History of tubal ligation Social History household members: spouse Smoking Status: Former smoker quit date: 09/30/92 Electronic Cigarette Use: not used alcohol intake: current details: Glass of wine daily. substance use type: does not use caffeine: Yes ROS ROS ED ROS Narrative Review of systems positive for dark stool, generalized weakness and fatigue. Takes blood thinners in the form of Eliquis. Denies other bleeding. No exacerbating or alleviating factors. EXAM Physical Exam Narrative Exam Narrative: Afebrile. Vital signs noted. Nontoxic-appearing. Cardiovascular examination feels a regular rate and rhythm. Lungs are clear to auscultation bilaterally. Abdomen is soft, nontender, with positive bowel sounds. Neurological examination nonfocal, nonlateralizing. Mild pallor of palms, no central cyanosis. Const Vital Signs: 05/29/25 12:45 05/29/25 15:23 05/29/25 15:25 Temperature 98 F Temperature Source Oral Pulse Rate 76 67 Pulse Rate [Lying] 61 Pulse Rate [Sitting (for 1 minute prior to obtaining)] 61 Pulse Rate [Standing (for 1 minute prior to obtaining)] 67 Respiratory Rate 16 17 Blood Pressure 116/58 L 151/76 H Blood Pressure [Lying] 142/58 H Blood Pressure [Sitting (for 1 minute prior to obtaining)] 141/52 H Blood Pressure [Standing (for 1 minute prior to obtaining)] 151/76 H Blood Pressure Mean 77 101 Blood Pressure Mean [Lying] 86 Blood Pressure Mean [Sitting (for 1 minute prior to obtaining)] 81 Blood Pressure Mean [Standing (for 1 minute prior to obtaining)] 101 Pulse Ox 98 100 Oxygen Delivery Method Room Air Room Air MDM MDM MDM Narrative Medical decision making narrative: Differential diagnosis includes but not limited to AV malformation versus diverticular bleed versus spontaneous GI hemorrhage of the lower GI tract. This is secondary to long-term anticoagulant use. They state that she has never had bright red blood per rectum. No nausea, vomiting, or hematemesis. I doubt brisk upper GI bleeding. I reviewed her prior laboratory work and ED visit. I will repeat her hemoglobin as well as BMP to look for elevated BUN. I will also perform chaperoned rectal examination to look for dark tarry stools/melena consented for fecal occult blood as I highly suspect stable GI bleeding. I had reviewed her hemoglobin from yesterday on her IR Diagn[employer] application and was 7.3. She stated that the normal number/value was from Saturday, however in review of her previous ED visit and laboratory work, her hemoglobin was 8.3. Hence she has lost a full point within the last week. I reviewed her BMP and she has a BUN of 33 and creatinine 1.02. Glucose 112 with a normal anion gap of 13. Chaperoned rectal examination did not show brown stool and no active bleeding or hemorrhage. It was sent for Hemoccult analysis and is Hemoccult positive. Given her long-term anticoagulant use and her anemia, although I do not feel that she needs an emergent blood transfusion currently, patient was discussed with Dr. Lopez for admission to the PCU for GI bleeding, anemia, and anticoagulant use. Disposition is admitted in stable condition. 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 Labs: Laboratory Results - last 24 hr 05/29/25 13:21 WBC 7.4 RBC 2.45 L Hgb 7.3 L Hct 21.8 L MCV 89.0 MCH 29.8 MCHC 33.5 RDW Std Deviation 46.3 H RDW Coeff of Danny 14.3 Plt Count 319 MPV 9.1 Immature Gran % (Auto) 0.300 Neut % (Auto) 63.2 Lymph % (Auto) 23.3 Bath % (Auto) 10.2 H Eos % (Auto) 2.7 Baso % (Auto) 0.3 Absolute Neuts (auto) 4.7 Absolute Lymphs (auto) 1.73 Nucleated RBC % 0 Sodium 138 Potassium 4.4 Chloride 101 Carbon Dioxide 24.4 Anion Gap 13 BUN 33 H Creatinine 1.02 Estim Creat Clear Calc 30.02 L Est GFR (MDRD) Non-Af 55 L BUN/Creatinine Ratio 32.5 H Glucose 112 H Calcium 9.1 Management Discussion w/another healthcare provider: Hospitalist (Dr. Lopez) Discharge Plan Dx/Rx/DC Orders Clinical Impression: GI bleeding, Anemia, Anticoagulant long-term use Disposition Disposition: Acute Care Hospital [facility]
--- OUTSIDE RECORDS SUMMARY | 2025-05-29 13:42 | XMS RPT_ITS | CCD ---
Author Organization [facility] Care Team Providers Care Remelt Furnace Expediter Name Role Phone Bg Chavarria MD Primary Care Provider Bg Chavarria MD Primary Care Provider Reji Gibbons Unavailable Unavailable Sincere Hopkins MD Unavailable Sincere Hopkins MD Unavailable Bg Chavarria MD Primary Care Provider BG CHAVARRIA Primary Care Unavailable SINCERE HOPKINS Referring Unavail able LORENA JACOBSEN Referring Unavailable BG CHVAARRIA Primary Care Unavailable BG CHAVARRIA Primary Care Unavailable Hernandez BINDERY SUPERVISOR.WAREHOUSE SUPERVISOR, Luis Manuel Unavailable Shira BINDERY SUPERVISOR.LEAD ATG DEVELOPER, Linda Unavailable Shira BINDERY SUPERVISOR.LEAD ATG DEVELOPER, Linda Unavailable Shira BINDERY SUPERVISOR.LEAD ATG DEVELOPER, Linda Unavailable Hernandez BINDERY SUPERVISOR.WAREHOUSE SUPERVISOR, Luis Manuel Unavailable Hernandez BINDERY SUPERVISOR.WAREHOUSE SUPERVISOR, Luis Manuel Unavailable Dr. Bg Chavarria MD Primary Care Provider [phone] Dr. Bg Chavarria MD Referring Provider Rekha Snowden Attending Provider BG CHAVARRIA Primary Care Unavailable BG CHAVARRIA Attending Unavailable AURA BG Peter Primary Care Unavailable LORENA JACOBSEN Attending Unavailable SELF Referring Unavailable CASTRO CHAVARRIAA Peter Primary Care Unavailable CASTRO CHAVARRIAA Peter Attending Unavailable ODALYSAMPAS, BG D Primary Care Unavailable HERNANDEZ, LUIS MANUEL Attending Unavailable HERNANDEZ, LUIS MANUEL Referring Unavailable TALAMPAS, BG D Primary Care Unavailable HERNANDEZ, LUIS MANUEL Referring Unavailable SINCERE HOPKINS Attending Unavail able TALAMPAS, BG D Primary Care Unavailable TALAMPAS, BG D Primary Care Unavailable TALAMPAS, BG D Referring Unavailable LINDA SILVA Attending Unavailable SELF Referring Unavailable TALAMPAS, BG D Primary Care Unavailable TALAMPAS, BG D Primary Care Unavailable HERNANDEZ, LUIS MANUEL Attending Unavailable TALAMPAS, BG D Primary Care Unavailable TALAMPAS, BG D Attending Unavailable TALAMPAS, BG D Primary Care Unavailable TALAMPAS, BG D Primary Care Unavailable MADELEINE JUNG Attending Unavailable TALAMPAS, BG D Referring Unavailable TALAMPAS, BG D Primary Care Unavailable TALAMPAS, BG D Referring Unavailable TALAMPAS, BG D Primary Care Unavailable TALAMPAS, BG D Primary Care Unavailable NILES RODRIGUEZISAL Admitting Unavailable RUSSELL RODRIGUEZ Attending Unavailable TALAMPAS, BG D Primary Care Unavailable TALAMPAS, BG D Referring Unavailable RUSSELL RODRIGUEZ Attending Unavailable JOSUE FAGAN Referring Unavailable TALAMPAS, BG D Primary Care Unavailable OXANA DARLING Attending Unavailable TALAMPAS, BG D Primary Care Unavailable Dr. Uvaldo Shipley DO Emergency Provider Talampas, Bg D Referring Unavailable Isrrael, Majo Attending Unavailable Talampas, Bg D Primary Care Unavailable Talampas, Bg D Referring Unavailable Talampas, Bg D Primary Care Unavailable Isrrael, Majo Attending Unavailable Isrrael, Majo Consulting Unavailable Isrrael, Majo Attending Unavailable Isrrael, Majo Referring Unavailable Talampas, Bg D Primary Care Unavailable Talampas, Bg D Referring Unavailable Talampas, Bg D Primary Care Unavailable Rekha Rojas NP Attending Unavailable Talampas, Bg D Primary Care Unavailable Uvaldo Shipley Attending Unavailable Talampas, Bg D Primary Care Unavailable Provider, Ed Physician Attending Unavailab le Isrrael Majo Attending Unavailable Isrrael, Majo Referring Unavailable Talampas, Bg D Primary Care Unavailable Allergies Allergy Classification Reported Allergen(s) Allergy Type Date of Onset Reaction(s) Facility Lincosamides (antibiotic) (1 source) Clindamycin Drug Allergy 07-12-20 06 Contraindicati on-[facility] Work Phone: Penicillins (antibiotic) (2 sources) Amoxicillin Drug Allergy 07-11-20 Rash, Intolerance [facility] Prochlorperazine (2 sources) Prochlorperazine Drug Allergy 07-11-20 06 Intolerance, Dystonia [facility] (20 sources) Amoxicillin; Translations: [AMOXICILLIN] Drug Allergy 06-24-[address] [facility] Work Phone: (20 sources) Clindamycin; Translations: [CLINDAMYCIN] Drug Allergy 07-12-20 06 Contraindicati on-[facility] Work Phone: (20 sources) Penicillins; Translations: [PENICILLINS] Drug Allergy 07-11-20 Rash, Intolerance [facility] Work Phone: (20 sources) Prochlorperazine; Translations: [PROCHLORPERAZINE EDISYLATE] Drug Allergy 07-11-[address] [facility] Work Phone: (20 sources) Penicillins Drug Allergy 07-11-20 06 Rash, Intolerance [facility] Work Phone: (20 sources) Prochlorperazine; Translations: [PROCHLORPERAZINE] Drug Allergy 06-30-[address] [facility] (11 sources) Penicillins Drug Allergy 07-11-20 Rash, Intolerance [facility] (2 sources) Penicillins Allergy to substance 04-20-20 Rash [facility] (1 source) Triazolam Drug Allergy 05-22-20 Other [facility] (1 source) Amoxicillin Drug Allergy 05-22-20 [facility] (1 source) Clindamycin Drug Allergy 05-22-20 [facility] (1 source) Penicillins Drug allergy (disorder) 05-22-20 [facility] (1 source) Prochlorperazine Drug Allergy 05-22-20 [facility] (1 source) Triazolam Drug Allergy 05-22-20 [facility] Rep[facility] Medications Current Medications Medication Drug Class(es) [...] above: Take 1 tablet by vivienne th one time a week. Take with a full glass of water, on an empty stomach; do NOT lie down for 30minutes. apixaban 2.5 mg oral tablet (14 sources) Factor Xa Inhibitor Start: 02-16-2025 take 1 tablet by mouth twice daily in the evening apixaban (ELIQUIS) 2.5 mg tab(s) Indications: Atrial flutter, unspecified type (HCC) Take 1 tablet by mouth two times a day. 180 tablet 1 05/27/2025 4:08 PM EDT 02/16/2025 Active Start: 10-27-2024 End: [...] take 1 capsule by mouth once daily Cholecalciferol (Vitamin D3) 5,000 UNIT capsule Discontinued 5000 U PO DAILY June 24, 2015 12:00am August 13, 2024 11:30am Supplement Comment on above: Take 1 capsule by [facility] once daily. Hold for 1 month the n take once weekly doxycycline hyclate 100 mg oral tablet (1 source) Tetracycline-class Drug Start: 06-28-2023 End: 07-05-2023 take 1 tablet by mouth twice daily doxycycline (VIBRA-TABS) 100 mg tablet Take 1 tablet by mouth two times a day for 7 days. 14 tablet 0 06/28/2023 07/05/2023 Active Comment on above: Take 1 tablet by [facility] two times a day for 7 days. estrogens, conjugated (correction) 0.625 mg/ml vaginal cream (20 sources) Estrogen [...] days. traMADol hydrochloride 50 mg oral tablet (13 sources) Opioid Agonist Start: 06-11-2023 End: 06-16-2023 [...] injectable solution (20 sources) Vitamin B12 Start: 02-15-2021 End: 09-08-2025 cyanocobalamin 1,000 mcg/mL USE ONE ML INTO THE MUSCLE ONCE MONTHLY 3 mL 3 02/26/2025 3:36 PM EDT 09/08/2024 09/08/2025 Active Start: 01-24-2021 End: 02-15-2021 inject 100 [...] on above: Take 1,000 mg by vivienne th twice daily. Take 2 tablets by [facility] every 8 hours as needed for pain. acetaminophen 325 mg / HYDROcodone bitartrate 5 mg oral tablet (2 sources) Opioid Agonist Start: 09-01-20 End: 08-06-20 Hydrocodone-Acetamin ophen 5-325 mg tablet Discontinued 1 {tbl} PO Q8H as needed for pain 10 3 0 September 01, 2021 August 06, 2024 5:53pm Renal colic Unspecified renal colic aspirin 81 mg delayed release oral tablet (13 sources) Platelet Aggregation Inhibitor, Nonsteroidal Anti-inflammatory Drug [...] Comment on above: Take 1 tablet by [facility] two times a day for 28 days. atorvastatin 80 mg oral tablet (2 sources) HMG-CoA Reductase Inhibitor Start: 06-25-20 End: 01-25-20 [...] resolves cyclobenzaprine hydrochloride 5 mg oral tablet (12 sources) Muscle Relaxant Start: 02-05-20 End: 04-15-20 [...] on above: Take 1 capsule by [facility] two times a day. 0.4 ml enoxaparin sodium 100 mg/ml prefilled syringe (2 sources) Low Molecular Weight Heparin Start: 1 End: [...] Comment on above: Take 1 tablet by [facility] once daily for 14 days. Insulin [...] 11/19/2023 Discontinued ondansetron 4 mg oral tablet (2 sources) Serotonin-3 Receptor Antagonist Start: End: take 1 [...] daily for 14 days. polyethylene glycol 3350 963195 mg / potassium chloride 2970 mg / sodium bicarbonate 6740 mg / sodium chloride 5860 mg / sodium sulfate 85594 mg powder for oral solution (20 sources) Osmotic Laxative Start: End: peg 3350-Electrolytes (GOLYTELY) 236-22.74-6.74 -5.86 gram suspension Indications: Rectal bleeding Refer to printed prep instructions from your provider. 4000 mL 03/05/2022 02/04/2023 Discontinued Comment on above: Refer to printed pre p instructions from your provider. polysaccharide iron complex 150 mg oral capsule (2 sources) Start: End: Polysaccharide Iron Complex (Ferrex 150) [...] dose. risedronate sodium 35 mg oral tablet (6 sources) Start: 2021 End: 2022 take 1 [...] VIVIENNE TH ONE TIME A WEEK. sennosides, correction 8.6 mg oral tablet (12 sources) Start: [...] right foot] Chronic Calculus of urinary tract (2 sources) Renal colic; Translations: [Unspecified renal colic] 08-06-2024 Episodic Cardiac dysrhythmias (20 sources) Paroxysmal supraventricular tachycardia; Translations: [Paroxysmal SVT (supraventricular tachycardia) (HCC)] Onset: 4 07-28-2024 Chronic Deficiency and other anemia (1 source) Anemia due to blood loss; Translations: [Iron deficiency anemia secondary to blood loss (chronic)] 07-15-2023 Chronic Deficiency and other anemia (1 source) Anemia; Translations: [Anemia, unspecified] 05-27-2025 Episodic Diabetes mellitus with complications (1 source) Type [...] disease without esophagitis] Onset: 1 01-24-2021 Chronic Fluid and electrolyte disorders (1 source) Dehydration; Translations: [Dehydration] 05-22-2025 Episodic Gastrointestinal hemorrhage (2 sources) Rectal hemorrhage; Translations: [Hemorrhage of anus and rectum] Episodic Heart valve disorders (10 sources) Aortic valve regurgitation; Translations: [Nonrheumatic aortic (valve) insufficiency] Onset: 5 10-20-2024 Chronic Immunizations and screening for infectious disease (7 sources) Patient encounter status; Translations: [Encounter for immunization] Episodic Malaise and fatigue (2 sources) Asthenia; Translations: [Other malaise] 08-06-2024 Episodic Multiple [...] Onset: 0 Resolved: 1 06-07-2020 Chronic Osteoporosis (3 sources) Senile osteoporosis; Translations: [Age-related osteoporosis without [...] unspecified site] 09-06-2017 Episodic Other circulatory disease (3 sources) Tightness in throat; Translations: [Other specified [...] injuries and conditions due to external causes (2 sources) Swallowed foreign body; Translations: [Foreign body of alimentary tract, part unspecified, initial encounter] 06-13-2022 Episodic Other lower respiratory disease (3 sources) Dyspnea; Translations: [Shortness of breath] 07-06-2024 Episodic Other lower respiratory disease (2 sources) Dyspnea on exertion; Translations: [Other forms of dyspnea] 08-06-2024 Episodic Other nervous system disorders (2 sources) Expressive dysphasia; Translations: [Aphasia] 01-24-2021 Chronic Other [...] hip; Translations: [Pain in left hip] Onset: 4 Episodic Other skin disorders (1 source) Disorder [...] menopausal state; Translations: [Asymptomatic postmenopausal status] Onset: 5 Episodic Residual codes; unclassified (2 sources) Other specified postprocedural states; Translations: [S/P catheter ablation of slow pathway] Onset: 5 Episodic Residual codes; unclassified (1 source) Illness, unspecified; Translations: [Illness, unspecified] Onset: 5 Episodic Spondylosis; intervertebral disc disorders; other back [...] Onset: 5 03-31-2024 Episodic Unclassified (2 sources) Paroxysmal SVT (supraventricular tachycardia) (HCC); Translations: [Paroxysmal SVT (supraventricular tachycardia) (HCC)] Onset: 5 Unclassified (1 source) Chronic bilateral low back pain without sciatica; Translations: [Chronic bilateral low back pain without sciatica] Onset: 5 Unclassified (2 sources) Supraventricular tachycardia, unspecified; Translations: [Supraventricular tachycardia, unspecified] Onset: 5 Viral infection (2 sources) Disease caused by 2019-nCoV; Translations: [COVID-19] Episodic Past or Other Problems Problem Classification Problem Date Documented Date Episodic/Chronic Acute posthemorrhagic anemia (20 sources) Acute posthemorrhagic anemia; Translations: [Acute posthemorrhagic anemia] Onset: 3 Resolved: 4 07-15-2023 Episodic Conditions associated with dizziness or vertigo (10 sources) Lightheadedness; Translations: [Dizziness and giddiness] Onset: [...] disease (3 sources) Shortness of breath; Translations: [SOB (shortness of breath)] Onset: 4 Episodic Other nervous system disorders [...] Onset: 2 09-25-2021 Episodic Residual codes; unclassified (20 sources) H/O cardiac surgery; Translations: [Other specified postprocedural states] Onset: 5 10-30-2024 Episodic Residual codes; unclassified (19 sources) Other specified personal risk factors, not [...] without sciatica] Onset: 9 04-29-2019 Episodic Syncope (8 sources) Near syncope; Translations: [Syncope and collapse] Onset: 4 05-18-2024 Episodic Results Test Name Value Interpretation Reference Range Facility 12 Lead EKGon 05-22-2025 12 Lead EKG [facility] [address] [place] [address] 12 Lead EKG 05/22/25 1837 MR#: [id number] Acct: [id number] Name: TANIA ROMERO Rep #: [id number] : 1940 84 From: Malick Link MD Attending Dr: Status: DEP ER Ordering Dr: Uvaldo Shipley DO Date: 05/22/25 Location: ED Sex: F C Admitted: Test Reason : WEAKNESS Blood Pressure : */* mmHG Vent. Rate : 83 BPM Atrial Rate : 83 BPM P-R Int : 152 ms QRS Dur : 72 ms QT Int : 372 ms P-R-T Axes : 52 -36 38 degrees QTcB Int : 437 ms Normal sinus rhythm with sinus arrhythmia Left axis deviation Abnormal ECG Confirmed by MALICK LINK MD ([id number]), order editor ARTI REYES ([id number]) on 05/24/2025 1:05:06 PM Referred By: Confirmed By: MALICK LINK MD 05/24/25 1305 Date Malick Link MD CC: Dr. Bg Chavarria MD; Dr. Uvaldo Shipley DO Signed Normal [facility] Absolute lymphocyte countOrd ered By: Uvaldo Shipley on 05-22-2025 Lymphocytes Auto (Unsp spec) [#/Vol] 1.66 10*3/uL 0.83-4.51 [facility] Absolute neutrophil countOrd ered By: Uvaldo Shipley on 05-22-2025 Neutrophils (Bld) [#/Vol] 7.1 10*3/uL 2.0-7.7 [facility] Anion gap in Serum or Plasma Ordered By: Uvaldo Shipley on 05-22-2025 Anion gap [Moles/Vol] 13 mmol/L 5-15 [facility] Automated lymphocyte count a s percentage of total leukocytesOrdered By: Uvaldo Shipley on 05-22-2025 Lymphocytes/100 WBC Auto (Unsp spec) 17.6 % Low 19-41 [facility] BUN/creatinine ratioOrdered By: Uvaldo Vickersrus on 05-22-2025 Urea nitrogen/Creatinine [Mass ratio] 88.2 mg/mg High 10-20 [facility] Basophil percentageOrdered B y: Uvaldo Vickersrus on 05-22-2025 Basophils/100 WBC (Bld) 0.2 % 0-1 [facility] Bilirubin Test strip Ql (U)O rdered By: Uvaldo Shipley on 05-22-2025 Bilirubin Ql (U) Negative Negative [facility] Bilirubin, totalOrdered By: Uvaldo Vickersrus on 05-22-2025 Bilirubin [Mass/Vol] 0.27 mg/dL 0.00-1.30 [facility] CBC W/Diff, Automatedon 05-01 Absolute Lymph 1.66 X10 3/uL Normal 0.83-4.51 [facility] Comment on above: Performed By: #### L 500.4050, L100.0100 #### [facility] Laboratory [address] [place], [address] Absolute Neut 7.1 X10 3/uL Normal 2.0-7.7 [facility] Comment on above: Performed By: #### L 500.4050, L100.0100 #### [facility] [address] [place], [address] Basophils/100 WBC (Bld) 0.2 % Normal 0-1 [facility] Comment on above: Performed By: #### L 500.4050, L100.0100 #### [facility] [address] [place], [address] Eosinophils/100 WBC (Bld) 0.5 % Normal 0-5 [facility] Comment on above: Performed By: #### L 500.4050, L100.0100 #### [facility] [address] [place], [address] Erythrocyte distribution width (RBC) [Ratio] 13.2 % Normal 11.6-14.6 [facility] Comment on above: Performed By: #### L 500.4050, L100.0100 #### [facility] [address] [place], [address] Hematocrit (Bld) [Volume fraction] 25.4 % Low 37-47 [facility] Comment on above: Performed By: #### L 500.4050, L100.0100 #### [facility] [address] [place], [address] Hemoglobin (Bld) [Mass/Vol] 8.3 g/dL Low 12.0-15.0 [facility] Comment on above: Performed By: #### L 500.4050, L100.0100 #### [facility] [address] [place], [address] IG% 0.500 Normal 0.0-0.9 [facility] Comment on above: Result Comment: IG% - Immature Granulocytes (promyelocytes, myelocytes and metamyelocytes) > 1% indicates that a LEFT SHIFT is Present. Performed By: #### L 500.4050, L100.0100 #### [facility] [address] [place], [address] Lymphocytes/100 WBC (Bld) 17.6 % Low 19-41 [facility] Comment on above: Performed By: #### L 500.4050, L100.0100 #### [facility] [address] [place], [address] MCH (RBC) [Entitic mass] 28.9 pg Normal 27.0-32.0 [facility] Comment on above: Performed By: #### L 500.4050, L100.0100 #### [facility] [address] [place], [address] MCHC (RBC) [Mass/Vol] 32.7 g/dL Normal 32-36 [facility] Comment on above: Performed By: #### L 500.4050, L100.0100 #### [facility] [address] [place], [address] MCV (RBC) [Entitic vol] 88.5 fL Normal 81-99 [facility] Comment on above: Performed By: #### L 500.4050, L100.0100 #### [facility] [address] [place], [address] Monocytes/100 WBC (Bld) 5.9 % Normal 0-10 [facility] Comment on above: Performed By: #### L 500.4050, L100.0100 #### [facility] [address] [place], [address] Neutrophils/100 WBC (Bld) 75.3 % High 47-70 [facility] Comment on above: Performed By: #### L 500.4050, L100.0100 #### [facility] [address] [place], [address] Nucleated RBC (Bld) [#/Vol] 0 10*3/uL Normal 0-5 [facility] Comment on above: Performed By: #### L 500.4050, L100.0100 #### [facility] [address] [place], [address] Platelet mean volume (Bld) [Entitic vol] 9.3 fL Normal 6.2-12.0 [facility] Comment on above: Performed By: #### L 500.4050, L100.0100 #### [facility] [address] [place], [address] Platelets (Bld) [#/Vol] 256 10*3/uL Normal 150-450 [facility] Comment on above: Performed By: #### L 500.4050, L100.0100 #### [facility] [address] [place], [address] RBC (Bld) [#/Vol] 2.87 10*6/uL Low 4.2-5.4 [facility] Comment on above: Performed By: #### L 500.4050, L100.0100 #### [facility] [address] [place], [address] RDW SD 43.0 fl Normal 35.1-43.9 [facility] Comment on above: Performed By: #### L 500.4050, L100.0100 #### [facility] [address] [place], [address] WBC (Bld) [#/Vol] 9.4 10*3/uL Normal 4.4-11.0 [facility] Comment on above: Performed By: #### L 500.4050, L100.0100 #### [facility] [address] [place], [address] Carbon dioxide, total [Moles /volume] in Central venous bloodOrdered By: Uvaldo Shipley on 05-22-2025 CO2 [Moles/Vol] 23.6 mmol/L 21.0-32.0 [facility] Chest 1 View (Portable)on Chest 1 View (Portable) [facility] Imaging Services [address] [place] [address] Chest 1 View (Portable) MR#: [id number] Acct: [id number] Name: TNAIA ROMERO Rep #: [id number] : 1940 F 84 From: Lorena Scott DO PCP: Dr. Bg Chavarria MD Status: REG ER Study: Chest 1 View (Portable) Date of Exam: 05/22/25 Exam# [id number] Ordering Dr: Uvaldo Shipley DO PROCEDURE: CHEST 1 VIEW (PORTABLE) 05/22/2025 REASON FOR EXAM: WEAKNESS Lightheaded and diaphoretic today TECHNIQUE: Frontal view of the chest. COMPARISON: None. FINDINGS: Hardware: None. Heart: Normal size Lungs: Clear and expanded Bones: Unremarkable. No aggressive process. Moderate dextro scoliosis of the lower thoracic spine Other: RAD/Chest 1 View (Portable) IMPRESSION: No acute process detected radiographically [facility] CC: Dr. Bg Chavarria MD; Dr. Uvaldo Shipley DO Preassembler And Inspector: Signed Normal [facility] Chloride assayOrdered By: Joyce Shipley on 05-22-2025 Chloride [Moles/Vol] 101 mmol/L 98-108 [facility] Comprehensive Metabolic Prof ilon 05-22-2025 Albumin [Mass/Vol] 3.7 g/dL Normal 3.4-4.8 [facility] Comment on above: Performed By: #### L 500.4050, L100.0100 #### [facility] Laboratory [address] [place], [address] Albumin/Globulin [Mass ratio] 1.6 {ratio} Normal 0.9-2.4 [facility] Comment on above: Performed By: #### L 500.4050, L100.0100 #### [facility] [address] [place], [address] ALK PHOS 54 U/L Normal 35-104 [facility] Comment on above: Performed By: #### L 500.4050, L100.0100 #### [facility] [address] [place], [address] ALT [Catalytic activity/Vol] 12 U/L Normal <=34 [facility] Comment on above: Performed By: #### L 500.4050, L100.0100 #### [facility] [address] [place], [address] AST [Catalytic activity/Vol] 20 U/L Normal <=31 [facility] Comment on above: Performed By: #### L 500.4050, L100.0100 #### [facility] [address] [place], [address] Bilirubin [Mass/Vol] 0.27 mg/dL Normal 0.00-1.30 [facility] Comment on above: Performed By: #### L 500.4050, L100.0100 #### [facility] [address] [place], [address] BUN/CRE 88.2 RATIO High 10-20 [facility] Comment on above: Performed By: #### L 500.4050, L100.0100 #### [facility] [address] [place], [address] Calcium [Mass/Vol] 9.1 mg/dL Normal 7.6-11.0 [facility] Comment on above: Performed By: #### L 500.4050, L100.0100 #### [facility] [address] [place], [address] Chloride [Moles/Vol] 101 mmol/L Normal 98-108 [facility] Comment on above: Performed By: #### L 500.4050, L100.0100 #### [facility] [address] [place], [address] CO2 [Moles/Vol] 23.6 mmol/L Normal 21.0-32.0 [facility] Comment on above: Performed By: #### L 500.4050, L100.0100 #### [facility] [address] [place], [address] Creatinine [Mass/Vol] 0.92 mg/dL Normal 0.70-1.20 [facility] Comment on above: Performed By: #### L 500.4050, L100.0100 #### [facility] [address] [place], [address] ECRCL 34.96 ml/min Low 50-250 [facility] Comment on above: Performed By: #### L 500.4050, L100.0100 #### [facility] [address] [place], [address] GAP 13 Normal 5-15 [facility] Comment on above: Performed By: #### L 500.4050, L100.0100 #### [facility] [address] [place], [address] GFR/1.73 sq M.predicted among non-blacks MDRD (S/P/Bld) [Vol rate/Area] 62 mL/min/{1.73_m2} Normal >60 [facility] Comment on above: Result Comment: mL/m in/1.73m2 CKD-EPI Creatinine Equation (2020) Performed By: #### L 500.4050, L100.0100 #### [facility] [address] [place], [address] Globulin (S) [Mass/Vol] 2.3 g/dL Normal 2.2-4.2 [facility] Comment on above: Performed By: #### L 500.4050, L100.0100 #### [facility] [address] [place], [address] Glucose [Mass/Vol] 127 mg/dL High 70-99 [facility] Comment on above: Performed By: #### L 500.4050, L100.0100 #### [facility] [address] [place], [address] Potassium [Moles/Vol] 4.3 mmol/L Normal 3.3-5.1 [facility] Comment on above: Performed By: #### L 500.4050, L100.0100 #### [facility] [address] [place], [address] Sodium [Moles/Vol] 138 mmol/L Normal 133-145 [facility] Comment on above: Performed By: #### L 500.4050, L100.0100 #### [facility] [address] [place], [address] T PROT 6.0 g/dL Normal 5.9-8.4 [facility] Comment on above: Performed By: #### L 500.4050, L100.0100 #### [facility] [address] [place], [address] Urea nitrogen [Mass/Vol] 81 mg/dL High 4-19 [facility] Comment on above: Performed By: #### L 500.4050, L100.0100 #### [facility] [address] [place], [address] Emergency Department Summary on 05-22-2025 Emergency Department Summary [facility] Medical Records Department [address] [place] [address] Emergency Department Summary 05/22/25 MR#: [id number] Acct: [id number] Name: TANIA ROMERO Rep #: [id number] : 1940 84 From: Uvaldo Shipley DO PCP: Dr. Bg Chavarria MD Status:DEP ER Location: ED HPI History of Present Illness Chief Complaint: General Illness [facility] Medical History Aortic valve insufficiency Abnormality of gait Osteopenia Elevated LDL cholesterol level Vitamin D deficiency Trochanteric bursitis of right hip SI (sacroiliac) joint inflammation Former smoker Abnormal electro-oculogram GERD (gastroesophageal reflux disease) Type 2 diabetes mellitus Preop cardiovascular exam Multiple sclerosis DJD (degenerative joint disease) of cervical spine Expressive aphasia Home Medications ???Medication ???Instructions ???Recorded ???Last Taken ???Type conjugated estrogens 0.625 mg/gram 0.3125 mg vaginal DAILY Estrogen 01/24/21 Unknown History vaginal cream lactase 9,000 unit tablet (Lactase 9,000 unit PO ONCE PRN lactose 0 01/24/21 Unknown History Fast Acting) intolerance metformin 500 mg tablet 500 mg PO DAILY Diabetes 01/24/21 Unknown History cyanocobalamin (vitamin B-12) 1,000 mcg IM QMONTH #0 mL 02/15/21 Unknown Rx 1,000 mcg/mL injection solution alendronate 70 mg tablet 70 mg PO QWEEK 08/06/24 Unknown Hi story cholecalciferol (vitamin D3) 125 5,000 unit PO QWEEK Supplement Unknown History mcg (5,000 unit) capsule meloxicam 15 mg tablet 7.5 mg PO ONCE Arthritis pain 07/31 01/21 Unknown History metoprolol succinate 25 mg 12.5 mg PO QDAY 08/31/24 Unknown H istory tablet,extended release 24 hr apixaban 2.5 mg tablet (Eliquis) 2.5 mg PO BID 04/20/25 Unknown His tory Allergy/AdvReac Type Severity Reaction Status Date / Time Penicillins Allergy Severe Rash Verified 05/22/25 16:57 amoxicillin Allergy Rash Verified 05/22/25 16:57 clindamycin AdvReac Severe Diarrhea Verified 05/22/25 16:57 prochlorperazine (From AdvReac Other Verified 05/22/25 16:57 Compazine) triazolam (From Halcion) AdvReac Other Verified 05/22/25 16:58 Family History Father Colon cancer Mother Thyroid disorder Osteoporosis Surgical History History of right hip replacement History of left hip replacement History of tonsillectomy History of bunionectomy History of left inguinal hernia repair History of tubal ligation Social History household members: spouse Smoking Status: Former smoker quit date: 09/30/92 Electronic Cigarette Use: not used alcohol intake: current details: Glass of wine daily. substance use type: does not use caffeine: Yes EXAM Physical Exam Const Vital Signs: 05/22/25 16:56 05/22/25 17:08 05/22/25 17:11 Temperature 98.2 F Temperature Source Oral Pulse Rate 98 84 Respiratory Rate 18 19 H Respiratory Effort Normal Non-Labored Blood Pressure 88/49 L 99/55 L Blood Pressure Mean 62 69 Pulse Ox 99 98 Oxygen Delivery Method Room Air Room Air 05/22/25 18:02 05/22/25 19:19 05/22/25 20:04 Temperature Temperature Source Pulse Rate 90 68 76 Respiratory Rate 18 17 18 Respiratory Effort Blood Pressure 104/73 128/58 H 159/81 H Blood Pressure Mean 83 81 107 Pulse Ox 96 100 94 Oxygen Delivery Method Room Air Room Air 05/22/25 21:00 05/22/25 21:37 Temperature 98.2 F Temperature Source Pulse Rate 73 73 Respiratory Rate 15 15 Respiratory Effort Blood Pressure 159/81 H Blood Pressure Mean 107 Pulse Ox 97 97 Oxygen Delivery Method Room Air MDM MDM MDM Narrative Medical decision making narrative: HISTORY OF PRESENT ILLNESS: Chief complaint: Weakness 84-year-old female history of SVT, postural dizziness with syncope, type 2 diabetes, vitamin B12 deficiency, GERD, multiple sclerosis presents with diffuse weakness. Notes when she woke up this morning she became unusually fatigued, diaphoretic while trying to put on her pants. Denies syncope. Denies headache or chest pain. Denies recent vomiting but does note some loose stools last couple days. No she has not eaten today which she thinks is contributed to her overall sense of malaise and diffuse weakness. Denies focal weakness. Denies slurred speech, loss of vision, facial drooping, loss of movement or sensation in the arms or legs. Denies abdominal pain. Denies chest pain. Denies shortness of breath. Denies leg swelling. Patient notes she has not eaten today. REVIEW OF SYSTEMS: Pertinent positives: Diff (more content not included)... Normal [facility] Eosinophil percentageOrdered By: Uvaldo Shipley on 05-22-2025 Eosinophils/100 WBC (Bld) 0.5 % 0-5 [facility] Erythrocyte distribution wid th ratioOrdered By: Uvaldo Shipley on 05-22-2025 Erythrocyte distribution width (RBC) [Ratio] 13.2 % 11.6-14.6 [facility] Erythrocyte distribution wid th standard deviationOrdered By: Uvaldo Shipley on 05-22-2025 Erythrocyte distribution width (RBC) [Ratio] 43.0 fl 35.1-43.9 [facility] Glomerular filtration rate ( GFR) estimation/1.73 sq m using serum, plasma, or whole bOrdered By: Uvaldo Shipley on 05-22-2025 GFR/1.73 sq M.predicted among non-blacks MDRD (S/P/Bld) [Vol rate/Area] 62 mL/min/{1.73_m2} >60 [facility] Comment on above: mL/min/1.73m2 CKD-EP I Creatinine Equation (2020) Hematocrit Auto (Bld) [Volum e fraction]Ordered By: Uvaldo Shipley on 05-22-2025 Hematocrit (Bld) [Volume fraction] 25.4 % Low 37-47 [facility] Hemoglobin measurementOrdere d By: Uvaldo Shipley on 05-22-2025 Hemoglobin (Bld) [Mass/Vol] 8.3 g/dL Low 12.0-15.0 [facility] Immature granulocytes/100 WB C Auto (Bld)Ordered By: Uvaldo Shipley on 05-22-2025 Immature granulocytes/100 WBC (Bld) 0.500 % 0.0-0.9 [facility] Comment on above: IG% - Immature Granu locytes (promyelocytes, myelocytes and metamyelocytes) > 1% indicates that a LEFT SHIFT is Present. Ketones Test strip Ql (U)Ord ered By: Uvaldo Shipley on 05-22-2025 Ketones Ql (U) Negative Negative [facility] L501.4021on 05-22-2025 Trop T High Sen 19 ng/L High <=14 [facility] Comment on above: Performed By: #### L 501.4021 #### [facility] [place], [address] Laboratory - Chemistry and C hemistry - challengeOrdered By: Uvaldo Shipley on 05-22-2025 AST [Catalytic activity/Vol] 20 U/L <32 [facility] MCV (mean corpuscular volume ) determinationOrdered By: Uvaldo Shipley on 05-22-2025 MCV (RBC) [Entitic vol] 88.5 fL 81-99 [facility] Mean corpuscular hemoglobin (MCH) determinationOrdered By: Uvaldo Shipley on 05-22-2025 MCH (RBC) [Entitic mass] 28.9 pg 27.0-32.0 [facility] Mean corpuscular hemoglobin concentration (MCHC) determinationOrdered By: Uvaldo Shipley on 05-22-2025 MCHC (RBC) [Mass/Vol] 32.7 g/dL 32-36 [facility] Mean platelet volume determi nationOrdered By: Uvaldo Shipley on 05-22-2025 Platelet mean volume (Bld) [Entitic vol] 9.3 fL 6.2-12.0 [facility] Microscopic analysis of urin e for red blood cells (RBC)Ordered By: Uvaldo Shipley on 05-22-2025 Microscopic analysis of urine for red blood cells (RBC) 0-5 SEEN /hpf 0-5 [facility] Monocyte percentageOrdered B y: Uvaldo Shipley on 05-22-2025 Monocytes/100 WBC (Bld) 5.9 % 0-10 [facility] Mucus LM Ql (Urine sed)Order ed By: Uvaldo Shipley on 05-22-2025 Mucus Ql (Urine sed) 0 SEEN /hpf [facility] Neutrophil percentageOrdered By: Uvaldo Shipley on 05-22-2025 Neutrophils/100 WBC (Bld) 75.3 % High 47-70 [facility] Nitrite Test strip Ql (U)Ord ered By: Uvaldo Shipley on 05-22-2025 Nitrite Ql (U) Negative Negative [facility] Nucleated red blood cell per centageOrdered By: Uvaldo Shipley on 05-22-2025 Nucleated RBC/100 WBC (Bld) [Ratio] 0 % 0-5 [facility] Platelet countOrdered By: Joyce Shipley on 05-22-2025 Platelets (Bld) [#/Vol] 256 10*3/uL 150-450 [facility] Potassium measurement (mass/ volume)Ordered By: Uvaldo Shipley on 05-22-2025 Potassium (Unsp spec) [Mass/Vol] 4.3 mmol/L 3.3-5.1 [facility] Protein Test strip Ql (U)Ord ered By: Uvaldo Shipley on 05-22-2025 Protein Ql (U) Negative Negative [facility] RBC Auto (Bld) [#/Vol]Ordere d By: Uvaldo Shipley on 05-22-2025 RBC (Bld) [#/Vol] 2.87 10*6/uL Low 4.2-5.4 [facility] Serum creatinine measurement (mass/volume)Ordered By: Uvaldo Shipley on 05-22-2025 Creatinine [Mass/Vol] 0.92 mg/dL 0.70-1.20 [facility] Serum globulin measurementOr dered By: Uvaldo Shipley on 05-22-2025 Globulin (S) [Mass/Vol] 2.3 g/dL 2.2-4.2 [facility] Serum glucose measurement (m ass/volume)Ordered By: Uvaldo Shipley on 05-22-2025 Glucose [Mass/Vol] 127 mg/dL High 70-99 [facility] Serum or plasma alanine carter otransferase (ALT) measurementOrdered By: Uvaldo Shipley on 05-22-2025 ALT [Catalytic activity/Vol] 12 U/L <35 [facility] Serum or plasma albumin damaris urement (mass/volume)Ordered By: Uvaldo Shipley on 05-22-2025 Albumin [Mass/Vol] 3.7 g/dL 3.4-4.8 [facility] Serum or plasma albumin/glob ulin mass ratioOrdered By: Uvaldo Shipley on 05-22-2025 Albumin/Globulin [Mass ratio] 1.6 {ratio} 0.9-2.4 [facility] Serum or plasma alkaline dat sphatase measurementOrdered By: Uvaldo Shipley on 05-22-2025 ALP [Catalytic activity/Vol] 54 U/L 35-104 [facility] Serum or plasma calcium damaris urement (mass/volume)Ordered By: Uvaldo Shipley on 05-22-2025 Calcium [Mass/Vol] 9.1 mg/dL 7.6-11.0 [facility] Serum or plasma urea nitroge n measurement (mass/volume)Ordered By: Uvaldo Shipley on 05-22-2025 Urea nitrogen [Mass/Vol] 81 mg/dL High 4-19 [facility] Sodium levelOrdered By: Suzan Shipley on 05-22-2025 Sodium [Moles/Vol] 138 mmol/L 133-145 [facility] Squamous epithelial cells de tection in urine sediment by light microscopyOrdered By: Uvaldo Shipley on 05-22-2025 Epithelial cells.squamous LM Ql (Urine sed) 0-5 SEEN /hpf 5-10 [facility] Total proteinOrdered By: Myron Shipley on 05-22-2025 Protein [Mass/Vol] 6.0 g/dL 5.9-8.4 [facility] Troponin T.cardiac [Mass/vol ume] in Serum or Plasma by High sensitivity methodOrdered By: Uvaldo Shipley on 05-22-2025 Troponin T.cardiac High sensitivity method [Mass/Vol] 19 ng/L High <14 [facility] Urinalysis, Completeon 05-22 EPI,SQUAMOUS 0-5 SEEN Normal 5-10 [facility] Comment on above: Order Comment: CLEAN CATCH Performed By: #### L 400.0001 #### [facility] [address] [place], [address] RBC 0-5 SEEN Normal 0-5 [facility] Comment on above: Order Comment: CLEAN CATCH Performed By: #### L 400.0001 #### [facility] [address] [place], [address] WBC 0-5 SEEN Normal 0-5 [facility] Comment on above: Order Comment: CLEAN CATCH Performed By: #### L 400.0001 #### [facility] [address] [place], [address] BACTERIA 0 SEEN Normal None Seen [facility] Comment on above: Order Comment: CLEAN CATCH Performed By: #### L 400.0001 #### [facility] [address] [place], [address] Mucus Ql (Urine sed) 0 SEEN Normal [facility] Comment on above: Order Comment: CLEAN CATCH Performed By: #### L 400.0001 #### [facility] [address] [place], [address] Urine clarityOrdered By: Myron Shipley on 05-22-2025 Clarity (U) Clear Clear [facility] Urine color determinationOrd ered By: Uvaldo Shipley on 05-22-2025 Color (U) Straw Yellow [facility] Urine glucose detectionOrder ed By: Uvaldo Shipley on 05-22-2025 Glucose Ql (U) Normal mg/dl Normal [facility] Urine leukocyte esterase det ection by dipstickOrdered By: Uvaldo Shipley on 05-22-2025 Leukocyte esterase Test strip Ql (U) Negative Negative [facility] Urine pHOrdered By: Uvaldo hernandez on 05-22-2025 pH (U) 5.0 [pH] 5.0 - 8.0 [facility] Urine sediment bacteria coun t by microscopy (number/high power field)Ordered By: Uvaldo Shipley on 05-22-2025 Bacteria LM.HPF (Urine sed) [#/Area] 0 /[HPF] None Seen [facility] Urine specific gravity measu rementOrdered By: Uvaldo Shipley on 05-22-2025 Specific gravity (U) [Rel density] 1.010 1.002-1.030 [facility] Urine urobilinogen measureme ntOrdered By: Uvaldo Shipley on 05-22-2025 Urobilinogen Ql (U) Normal mg/dl Normal [facility] White blood cell (WBC) count Ordered By: Uvaldo Shipley on 05-22-2025 WBC (Bld) [#/Vol] 9.4 10*3/uL 4.4-11.0 [facility] White blood cell countOrdere d By: Uvaldo Shipley on 05-22-2025 White blood cell count 0-5 SEEN /hpf 0-5 [facility] TANIA [facility]ERO ([id number]) 1940 F Date Time Provider Department 04/29/25 BG CHAVARRIA INTMWS During your visit today, we recorded the following information about you: Beata Rod LPN 04/29/2025 10:33 AM Signed Pcp reviewed and completed pre op for. This was faxed back to Dr. Andrews Allergies As of Date: 04/29/2025 Noted Allergy Reaction AMOXICILLIN 06/24/2015 2 - Rash CLINDAMYCIN 07/12/2006 15 - Contraindication-Medic al Shea* Comments: C diff COMPAZINE (PROCHLORPERAZINE EDISY*07/11/2006 [...] Status:Closed by BEATA ROD on 04/29/25 Normal [facility] Cardiology Visit Reporton Cardiology Visit Report [facility] [address] [place] [address] OFFICE VISIT Date of Service: 04/20/25 MR#: [id number] Acct: [id number] Name: TANIA ROMERO Rep #: [id number] : 1940 Provider: MINH persaud Age/Sex: 84/F [place] [facility] Status: Signed HPI HPI History of Present [...] 94 Intake Visit Reasons: 6 M FU Addiction Psychiatrist Required: No Is patient in pain?: No [...] headache(s), weakness or (more content not included)... Normal [facility] 03-19-2025 [facility] Office Visit (INTMWS ) TANIA ROMERO ([id number]) 1940 F Date Time Provider Department 03/19/25 [...] She is planning a 4-day trip to [place] and is concerned about potential health issues [...] of insulin (HCC) 01/24/2021 Typical atrial flutter ([facility]) 10/27/2024 PAST SURGICAL HISTORY Procedure Laterality Date [...] BMI 21.53 (more content not included)... Normal [facility] DXA - AXIAL SKELETONon BD DXA - AXIAL SKELETON * * *Final Repor t* * * DATE OF EXAM: Mar 18 2025 12:52PM JANN 0804 - DXA - AXIAL SKELETON / PROCEDURE REASON: Asymptomatic postmenopausal status * * * * Physician Interpretation * * * * EXAMINATION: DXA BONE DENSITOMETRY BD DXA - AXIAL SKELETON, BD DXA TRABECLR BONE SCORE (TBS) PATIENT DEMOGRAPHICS: Age: 84 years, Gender: Female SCANNER INFORMATION: DXA Model: Sport Ngin [facility] C [address] Date Scanned: 03/18/2025 12:52 PM CLINICAL HISTORY: [...] FOR MORE INFORMATION ABOUT DIAGNOSIS AND TREATMENT: [facility] for Osteoporosis and Metabolic Bone Disease:? www.ccf.org/arthritis/ osteo National Osteoporosis Foundation:? www.nof.org International Society of Clinical Densitometry www.iscd.org Preassembler And Inspector: HYUN Transcribe Date/Time: Mar 21 2025 7:38A Dictated by : SALVATORE AYERS MD This examination was interpreted and the report reviewed and electronically signed by: SALVATORE AYERS MD on Mar 21 2025 7:41AM EST [id number] -[id number] Normal [facility] BD DXA TRABECLR BONE SCORE ( TBS)on [...] years, Gender: Female SCANNER INFORMATION: DXA Model: Sport Ngin - [facility] C [address]298 Date Scanned: 03/18/2025 12:52 PM CLINICAL HISTORY: [...] FOR MORE INFORMATION ABOUT DIAGNOSIS AND TREATMENT: [facility] for Osteoporosis and Metabolic Bone Disease:? www.ccf.org/arthritis/ osteo National Osteoporosis Foundation:? www.nof.org International Society of Clinical Densitometry www.iscd.org Preassembler And Inspector: HYUN Transcribe Date/Time: Mar 21 2025 7:38A Dictated by : SALVATORE AYERS MD This examination was interpreted and the report reviewed and electronically signed by: SALVATORE AYERS MD on Mar 21 2025 7:41AM EST [id number] -[id number] Normal [facility] 25([place])D3 [facility] 2024 25-hydroxyvitamin D3 [Mass/Vol] 46.4 ng/mL Normal 31.0-80.0 [facility] Comment on above: Order Comment: Selvin frazier Type: BLOOD SPECIMEN Ordering Facility: [facility] Address: [address] [place] [address] Performed By: #### 1 989-3 #### [facility] CLIA [id number] [address] [place] [address] [place] ALBUMIN/CREATININE RATIO, [facility] 03-15-2025 Albumin DL <= 20 mg/L (U) [Mass/Vol] mg/dL Normal [facility] Comment on above: Order Comment: Selvin frazier Type: BLOOD SPECIMEN Ordering Facility: [facility] Address: [address] [place] [address] Performed By: #### 1 989-3 #### [facility] CLIA [id number] [address] [place] [address] [place] Albumin/Creatinine (U) [Mass ratio] <17 Normal <30 [facility] Comment on above: Order Comment: Jocelynei men Type: BLOOD SPECIMEN Ordering Facility: [facility] Address: [address] [place] [address] Result Comment: Adul t Male and Female Nephrotic Criteria: <30 mg/g is considered normal to mildly increased 30-300 mg/g is considered moderately increased >300 mg/g is considered severely increased KDIGO. (2013). KDIGO 2012 Clinical Practice Guideline for the Evaluation and Management of Chronic Kidney Disease. Official Journal of the International Society of Nephrology, 3(1), 1-150. Performed By: #### 1 989-3 #### [facility] CLIA [id number] [address] [place] [address] [place] Creatinine (U) [Mass/Vol] 68.8 mg/dL Normal 20.0-300.0 [facility] Comment on above: Order Comment: Speci men Type: BLOOD SPECIMEN Ordering Facility: [facility] Address: [address] [place] [address] Performed By: #### 1 989-3 #### [facility] CLIA [id number] [address] [place] [address] [place] CBC panel Auto (Bld)on 03-15 Erythrocyte distribution width (RBC) [Ratio] 13.4 % Normal 11.5-15.0 [facility] Comment on above: Order Comment: Speci men Type: BLOOD SPECIMEN Ordering Facility: [facility] Address: [address] [place] [address] Performed By: #### 1 989-3 #### [facility] CLIA [id number] [address] [place] [address] [place] Hematocrit (Bld) [Volume fraction] 38.6 % Normal 36.0-46.0 [facility] Comment on above: Order Comment: Speci men Type: BLOOD SPECIMEN Ordering Facility: [facility] Address: [address] [place] [address] Performed By: #### 1 989-3 #### [facility] CLIA [id number] [address] [place] [id number] [place] Hemoglobin (Bld) [Mass/Vol] 12.5 g/dL Normal 11.5-15.5 [facility] Comment on above: Order Comment: Speci men Type: BLOOD SPECIMEN Ordering Facility: [facility] Address: [address] [place] [address] Performed By: #### 1 989-3 #### [facility] CLIA [id number] [address] [place] [address] [place] MCH (RBC) [Entitic mass] 28.7 pg Normal 26.0-34.0 [facility] Comment on above: Order Comment: Speci men Type: BLOOD SPECIMEN Ordering Facility: [facility] Address: [address] [place] [address] Performed By: #### 1 989-3 #### [facility] CLIA [id number] [address] [place] [address] [place] MCHC (RBC) [Mass/Vol] 32.4 g/dL Normal 30.5-36.0 [facility] Comment on above: Order Comment: Speci men Type: BLOOD SPECIMEN Ordering Facility: [facility] Address: [address] [place] [address] Performed By: #### 1 989-3 #### [facility] CLIA [id number] [address] [place] [address] [place] MCV (RBC) [Entitic vol] 88.7 fL Normal 80.0-100.0 [facility] Comment on above: Order Comment: Speci men Type: BLOOD SPECIMEN Ordering Facility: [facility] Address: [address] [place] [address] Performed By: #### 1 989-3 #### [facility] CLIA [id number] [address] [place] [address] [place] Nucleated RBC (Bld) [#/Vol] 10*3/uL Normal <0.01 [facility] Comment on above: Order Comment: Speci men Type: BLOOD SPECIMEN Ordering Facility: [facility] Address: [address] [place] [address] Performed By: #### 1 989-3 #### [facility] CLIA [id number] [address] [place] [address] [place] Platelet mean volume (Bld) [Entitic vol] 9.8 fL Normal 9.0-12.7 [facility] Comment on above: Order Comment: Speci men Type: BLOOD SPECIMEN Ordering Facility: [facility] Address: [address] [place] [address] Performed By: #### 1 989-3 #### [facility] CLIA [id number] [address] [place] [address] [place] Platelets (Bld) [#/Vol] 286 10*3/uL Normal 150-400 [facility] Comment on above: Order Comment: Speci men Type: BLOOD SPECIMEN Ordering Facility: [facility] Address: [address] [place] [address] Performed By: #### 1 989-3 #### [facility] CLIA [id number] [address] [place] [address] [place] RBC (Bld) [#/Vol] 4.35 10*6/uL Normal 3.90-5.20 [facility] Comment on above: Order Comment: Speci men Type: BLOOD SPECIMEN Ordering Facility: [facility] Address: [address] [place] [address] Performed By: #### 1 989-3 #### [facility] CLIA [id number] [address] [place] [address] [place] WBC (Bld) [#/Vol] 8.16 10*3/uL Normal 3.70-11.00 [facility] Comment on above: Order Comment: Speci men Type: BLOOD SPECIMEN Ordering Facility: [facility] Address: [address] [place] [address] Performed By: #### 1 989-3 #### [facility] CLIA [id number] [address] [place] [address] [place] CNCOon 03-15-2025 CNCO Letter Text Letter Text Normal [facility] Comprehensive metabolic 2000 panelon 03-15-2025 Albumin [Mass/Vol] 4.3 g/dL Normal 3.9-4.9 [facility] Comment on above: Order Comment: Speci men Type: BLOOD SPECIMEN Ordering Facility: [facility] Address: [address] [place] [address] Performed By: #### 1 989-3 #### [facility] CLIA [id number] [address] [place] [address] [place] ALP [Catalytic activity/Vol] 71 U/L Normal 34-123 [facility] Comment on above: Order Comment: Speci men Type: BLOOD SPECIMEN Ordering Facility: [facility] Address: [address] [place] [address] Performed By: #### 1 989-3 #### [facility] CLIA [id number] [address] [place] [address] [place] ALT [Catalytic activity/Vol] 11 U/L Normal 7-38 [facility] Comment on above: Order Comment: Speci men Type: BLOOD SPECIMEN Ordering Facility: [facility] Address: [address] [place], [place] [id number] Performed By: #### 1 989-3 #### [facility] CLIA [id number] [address] [place], [place] [address] [place] Anion gap [Moles/Vol] 13 mmol/L Normal 8-15 [facility] Comment on above: Order Comment: Speci men Type: BLOOD SPECIMEN Ordering Facility: [facility] Address: [address] [place], [place] [address] Performed By: #### 1 989-3 #### [facility] CLIA [id number] [address] [place], [place] [address] [place] AST [Catalytic activity/Vol] 21 U/L Normal 13-35 [facility] Comment on above: Order Comment: Speci men Type: BLOOD SPECIMEN Ordering Facility: [facility] Address: [address] [place] [address] Performed By: #### 1 989-3 #### [facility] CLIA [id number] [address] [place] [address] [place] Bilirubin [Mass/Vol] 0.3 mg/dL Normal 0.2-1.3 [facility] Comment on above: Order Comment: Speci men Type: BLOOD SPECIMEN Ordering Facility: [facility] Address: [address] [place] [address] Performed By: #### 1 989-3 #### [facility] CLIA [id number] [address] [place] [address] [place] Calcium [Mass/Vol] 9.7 mg/dL Normal 8.5-10.2 [facility] Comment on above: Order Comment: Speci men Type: BLOOD SPECIMEN Ordering Facility: [facility] Address: [address] [place] [address] Performed By: #### 1 989-3 #### [facility] CLIA [id number] [address] [place] [address] [place] Chloride [Moles/Vol] 102 mmol/L Normal 98-107 [facility] Comment on above: Order Comment: Speci men Type: BLOOD SPECIMEN Ordering Facility: [facility] Address: [address] [place], [place] [address] Performed By: #### 1 989-3 #### [facility] CLIA [id number] [address] [place] [address] [place] CO2 [Moles/Vol] 26 mmol/L Normal 22-30 [facility] Comment on above: Order Comment: Speci men Type: BLOOD SPECIMEN Ordering Facility: [facility] Address: [address] [place] [address] Performed By: #### 1 989-3 #### [facility] IA [id number] [address] [place] [address] [place] Creatinine [Mass/Vol] 1.03 mg/dL High 0.58-0.96 [facility] Comment on above: Order Comment: Selvin frazier Type: BLOOD SPECIMEN Ordering Facility: [facility] Address: [address] [place] [address] Performed By: #### 1 989-3 #### [facility] IA [id number] [address] [place] [address] [place] Creatinine and Glomerular filtration rate.predicted panel (S/P/Bld) 54 mL/min/1.73m??? Low >=60 [facility] Comment on above: Order Comment: Selvin frazier Type: BLOOD SPECIMEN Ordering Facility: [facility] Address: [address] [place] [address] Result Comment: Alice mated Glomerular Filtration Rate [...] GFR. Performed By: #### 1 989-3 #### [facility] CLIA [id number] [address] [place] [address] [place] Glucose [Mass/Vol] 116 mg/dL High 74-99 [facility] Comment on above: Order Comment: Selvin frazier Type: BLOOD SPECIMEN Ordering Facility: [facility] Address: [address] [place] [address] Result Comment: The [place] Diabetes Association (ADA) provides guidance for cutoff [...] Standards of Medical Care in Diabetes 2016, [place] Diabetes Association. Diabetes Care. 2016.39(Suppl 1). Performed By: #### 1 989-3 #### [facility] CLIA [id number] [address] [place] [address] [place] Potassium [Moles/Vol] 4.4 mmol/L Normal 3.7-5.1 [facility] Comment on above: Order Comment: Speci men Type: BLOOD SPECIMEN Ordering Facility: [facility] Address: [address] [place] [address] Performed By: #### 1 989-3 #### [facility] CLIA [id number] [address] [place] [address] [place] Protein [Mass/Vol] 6.9 g/dL Normal 6.3-8.0 [facility] Comment on above: Order Comment: Speci men Type: BLOOD SPECIMEN Ordering Facility: [facility] Address: [address] [place] [address] Performed By: #### 1 989-3 #### [facility] CLIA [id number] [address] [place] [address] [place] Sodium [Moles/Vol] 141 mmol/L Normal 136-144 [facility] Comment on above: Order Comment: Speci men Type: BLOOD SPECIMEN Ordering Facility: [facility] Address: [address] [place] [address] Performed By: #### 1 989-3 #### [facility] CLIA [id number] [address] [place], [place] [address] [place] Urea nitrogen [Mass/Vol] 35 mg/dL High 7-21 [facility] Comment on above: Order Comment: Selvin frazier Type: BLOOD SPECIMEN Ordering Facility: [facility] Address: [address] [place] [address] Performed By: #### 1 989-3 #### [facility] CLIA [id number] [address] [place] [address] [facility] [place] HbA1c (Bld)on 03-15-2025 Average glucose Estimated from glycated hemoglobin (Bld) [Mass/Vol] 146 mg/dL Normal [facility] Comment on above: Order Comment: Selvin frazier Type: BLOOD SPECIMEN Ordering Facility: [facility] Address: [address] [place] [address] Result Comment: eAG: (Estimated average glucose) is a calculated value from HgbA1c and is customer sales representative of the average blood glucose level in the last 2-3 month period. Performed By: #### 1 989-3 #### [facility] CLIA [id number] [address] [place] [address] [place] HbA1c (Bld) [Mass fraction] 6.7 % High 4.3-5.6 [facility] Comment on above: Order Comment: Selvin frazier Type: BLOOD SPECIMEN Ordering Facility: [facility] Address: [address] [place] [address] Result Comment: [place] Diabetes Association guidelines indicate that patients with HgbA1c in the range 5.7-6.4% are at increased risk for development of diabetes, and intervention by lifestyle modification may be beneficial. HgbA1c greater or equal to 6.5% is considered diagnostic of diabetes. Performed By: #### 1 989-3 #### [facility] CLIA [id number] [address] [place] [address] [place] Lipid 1996 panelon 5 Cholesterol [Mass/Vol] 222 mg/dL High <200 Cl [facility] Comment on above: Order Comment: Selvin frazier Type: BLOOD SPECIMEN Ordering Facility: [facility] Address: [address] [place] [address] Result Comment: <200 mg/dL, Desirable 200-239 mg/dL, Borderline high >239 mg/dL, High Performed By: #### 1 989-3 #### [facility] CLIA [id number] [facility] [address] STATES OF [facility] Cholesterol in HDL [Mass/Vol] 67 mg/dL Normal >39 [facility] Comment on above: Order Comment: Jocelynei men Type: BLOOD SPECIMEN Ordering Facility: [facility] Address: [address] [place] [address] Result Comment: 40-5 9 mg/dL, Acceptable >59 mg/dL, High: Negative risk factor for coronary heart disease <40 mg/dL, Low: Positive risk factor for coronary heart disease Performed By: #### 1 989-3 #### [facility] CLIA [id number] [address] [place] [address] [place] Cholesterol in LDL [Mass/Vol] 141 mg/dL High <100 [facility] Comment on above: Order Comment: Selvin frazier Type: BLOOD SPECIMEN Ordering Facility: [facility] Address: [address] [place] [address] Result Comment: <100 mg/dL, Optimal 100-129 mg/dL, Near optimal/above optimal 130-159 mg/dL, Borderline high 160-189 mg/dL, High >189 mg/dL, Very high Secondary prevention optimal LDL Cholesterol levels are recommended to be <70 mg/dL LDL cholesterol is calculated using the Álvarez-NIH equation. Performed By: #### 1 989-3 #### [facility] CLIA [id number] [address] [place] [address] [place] Cholesterol in LDL/Cholesterol in HDL [Mass ratio] 2.10 {ratio} Normal <2.54 [facility] Comment on above: Order Comment: Selvin men Type: BLOOD SPECIMEN Ordering Facility: [facility] Address: [address] [place] [address] Result Comment: Refe rence: 1. National Cholesterol Education Program ATP III Guideline At-A-Glance Quick Desk Reference: National Heart, Lung, and Blood [place]. National Institutes of Health. 2001: NIH Publication No. 01-3305. 2. An International Atherosclerosis Society position paper: global recommendations for the management of dyslipidemia: executive summary, Atherosclerosis. 2014: 232(2):410-413. Performed By: #### 1 989-3 #### [facility] CLIA [id number] [address] [place] [address] [place] Cholesterol in VLDL [Mass/Vol] 14 mg/dL Normal <30 [facility] Comment on above: Order Comment: Selvin men Type: BLOOD SPECIMEN Ordering Facility: [facility] Address: [address] [place] [address] Performed By: #### 1 989-3 #### [facility] CLIA [id number] [address] [place] [address] [place] Cholesterol non HDL [Mass/Vol] 155 mg/dL High <130 [facility] Comment on above: Order Comment: Selvin frazier Type: BLOOD SPECIMEN Ordering Facility: [facility] Address: [address] [place] [address] Result Comment: <130 mg/dL, Optimal 130-159 mg/dL, Near optimal/above optimal 160-189 mg/dL, Borderline high 190-219 mg/dL, High >219 mg/dL, Very high Secondary prevention optimal non HDL Cholesterol levels are recommended to be <100 mg/dL Performed By: #### 1 989-3 #### [facility] CLIA [id number] [address] [place] [address] [place] Cholesterol.total/Choles terol in HDL [Mass ratio] 3.31 {ratio} Normal <5.10 [facility] Comment on above: Order Comment: Selvin frazier Type: BLOOD SPECIMEN Ordering Facility: [facility] Address: [address] [place] [address] Performed By: #### 1 989-3 #### [facility] CLIA [id number] [address] [place] [address] [place] FASTING TIME 12 hrs Normal [facility] Comment on above: Order Comment: Speci men Type: BLOOD SPECIMEN Ordering Facility: [facility] Address: [address] [place] [address] Performed By: #### 1 989-3 #### [facility] CLIA [id number] [address] [place] [address] [place] Triglyceride [Mass/Vol] 78 mg/dL Normal <150 C [facility] Comment on above: Order Comment: Speci men Type: BLOOD SPECIMEN Ordering Facility: [facility] Address: [address] [place] [address] Result Comment: <150 mg/dL, Normal 150-199 mg/dL, Borderline high 200-499 mg/dL, High >499 mg/dL, Very high Performed By: #### 1 989-3 #### [facility] CLIA [id number] [address] [place] [address] [place] Vit B12 [facility] 16- 025 Cobalamin (Vitamin B12) [Mass/Vol] 511 pg/mL Normal 232-1245 [facility] Comment on above: Order Comment: Speci men Type: BLOOD SPECIMEN Ordering Facility: [facility] Address: [address] [place] [address] Performed By: #### 1 989-3 #### [facility] CLIA [id number] [address] [place] [address] [place] CNOVon 02-25-2025 CNOV Office Visit (UCWSTR ) TANIA ROMERO ([id number]) 1940 F Date Time Provider Department 02/25/25 12:45 PM MADELEINE JUNG UCWSTR During your visit today, we recorded the following information about you: Temperature Pulse Respiration Blood pressure 98.6 degrees 80/minute 20/minute 127/77 Weight 50.2 kg Madeleine Jung APRN.LEAD ATG DEVELOPER 02/25/2025 2:16 PM Signed [facility] [...] note reviewe (more content not included)... Normal [facility] CNOVon 02-15-2025 CNOV Office Visit (AGCARDPOB) CHRISTOFERDONNASHERIETANIA ([id number]) 1940 F Date Time Provider Department 02/15/25 4:00 PM OXANA DARLING AGCARDPOJessica During your visit today, we recorded the following information about you: Pulse Blood pressure Weight 69/minute 126/63 52 kg Oxana Darling APRN.CNP 02/15/2025 4:46 PM Signed [facility] General Cardiology Electrophysiology PRIMARY CARE PHYSICIAN: Bg Chavarria [address] [place] [address] CHIEF COMPLAINT: Cardiovascular medicine follow-up for arrhythmia. [...] (more content not included)... Normal [facility] ECG B/O W INTERP (MED OFFICE )on 02-15-2025 normal sinus rhythm, rightward axis, 65 bpm, TX 130 ms, QRS 68 ms, QT/QTc 392/407 ms. [facility] Ava 02-10-2025 SEEMAN Telephone (INTMWS) JOHNATHANTETETANIA DE LEON ([id number]) 1940 F Date Time Provider Department 02/10/25 GB CHAVARRIA INTMWS During your visit today, we recorded the following information about you: Nika Joshi RN 02/10/2025 2:20 PM Signed Oxana valdes from [employer] (office of Dr. Mp Haile) and states [...] 2 - Rash CLINDAMYCIN 07/12/2006 15 - Contraindication-Medic al Shea* Comments: C diff COMPAZINE (PROCHLORPERAZINE EDISY*07/11/2006 5 - Intolerance PENICILLINS 07/11/2006 2 - Rash 5 - Intolerance Comments: Rash after 4 days of antibiotic . PROCHLORPERAZINE 06/30/2023 13 - Dystonia Date Reviewed: 11/20/2024 Reviewed by: Lizzette Cotter MA - Fully Assessed Reason for Visit: [facility] Dental-Form [Other] Prescriptions as of 02/15/2025 - [...] Encounter Status:Closed by BEATA ROD on 02/15/25 [facility] 02-01-2025 CNPN Telephone (AGCARDPOB ) NICKTANIA ([id number]) 1940 F Date Time Provider Department 02/01/25 JOSUE FAGAN During your visit today, we recorded the following information about you: Josue Fagan APRN.LEAD ATG DEVELOPER 02/01/2025 12:26 PM Signed Called to discuss [...] nothing further at this time. Josue Fagan APRN.LEAD ATG DEVELOPER February 01, 2025 12:25 PM Allergies As of Date: 02/01/2025 Noted Allergy Reaction AMOXICILLIN 06/24/2015 2 - Rash CLINDAMYCIN 07/12/2006 15 - Contraindication-Medic al Shea* Comments: C diff COMPAZINE (PROCHLORPERAZINE EDISY*07/11/2006 [...] Encounter Status:Closed by JOSUE FAGAN on 02/01/25 [facility] CNPNon 01-01-2025 CNPN Telephone (AGCARDPOB ) TANIA ROMERO ([id number]) 1940 F Date Time Provider Department 01/01/25 JOSUE FAGAN AcerARDPOLocalize Direct During your visit today, we recorded the following information about you: Rosanna Prajapati RN 01/01/2025 8:18 AM Signed 12/30/24 monitor report scanned into Atari for your review. ALEX Nicole Stacey, RN 01/27/2025 9:58 AM Signed Pt has upcoming OV 02/15/25 with Peri. Does anything need done with the monitor report at this time? Rosanna Prajapati RN Allergies As of Date: 01/01/2025 Noted Allergy Reaction AMOXICILLIN 06/24/2015 2 - Rash CLINDAMYCIN 07/12/2006 15 - Contraindication-Medic al Shea* Comments: C diff COMPAZINE (PROCHLORPERAZINE EDISY*07/11/2006 [...] Encounter Status:Closed by ROSANNA PRAJAPATI on 03/24/25 [facility] CNNURSEon 12-18-2024 [facility] Nurse Visit (FAMPWS) TANIA ROMERO ([id number]) 1940 F Date Time Provider Department 12/18/24 11:30 AM NM NURSE FAMPWS During your visit today, we recorded the following information about you: ALIZA BIANCHI 12/18/2024 11:32 AM Signed Patient presents for COVID vaccine. Denies any problems at this time. Tolerated injection well. Aliza Bianchi LPN Allergies As of Date: 12/18/2024 Noted Allergy Reaction AMOXICILLIN 06/24/2015 2 - Rash CLINDAMYCIN 07/12/2006 15 - Contraindication-Medic al Shea* Comments: C diff COMPAZINE (PROCHLORPERAZINE EDISY*07/11/2006 5 - Intolerance PENICILLINS 07/11/2006 2 - Rash 5 - Intolerance Comments: Rash after 4 days of antibiotic . PROCHLORPERAZINE 06/30/2023 13 - Dystonia Date Reviewed: 11/20/2024 Reviewed by: Lizzette Cotter MA - Fully Assessed Reason for Visit: Imm/Inj [58] Visit Diagnosis:Encounter for immunization [Z23] Order(s):PowerVision COVID-19 VACCINE AGE 12+ YR (COMIRNATY) [[id number]] Order #: [id number] Prescriptions as of 12/18/2024 - alendronate (FOSAMAX) [...] 10/27/2024 Encounter Status:Closed by ALIZA BIANCHI on 12/18/24 Normal [facility] CNOVon 11-20-2024 CNOV Office Visit (INTMWS ) TANIA ROMERO ([id number]) 1940 F Date Time Provider Department 11/20/24 9:40 AM BG CHAVARRIA INTMWS During your visit today, we recorded the following information about you: Pulse Respiration Blood pressure Weight 72/minute 12/minute 118/80 51.4 kg Bg Chavarria MD 11/20/2024 12:42 PM Signed This note was created using [employer]. Subjective Tania Romero is a 84 year [...] on apixaban and metoprolol, managed by her charhouse worker. She reports occasional minor palpitations but otherwise [...] mellitus, without long-term current use of insulin ([facility]) 01/24/2021 Typical atrial flutter ([facility]) 10/27/2024 Current Outpatient Medications Medication Sig metoprolol [...] dry. Neurologic (more content not included)... Normal [facility] CNOVon 11-02-2024 CNOV Office Visit (INTMWS ) TANIA ROMERO ([id number]) 1940 F Date Time Provider Department 11/02/24 11:00 AM LUIS MANUEL HERNANDEZ INTMWS During your visit today, we recorded the following information about you: Pulse Respiration Blood pressure Weight 67/minute 16/minute 129/72 51 kg Luis Manuel Hernandez APRN.WAREHOUSE SUPERVISOR 11/02/2024 11:38 AM Signed SUBJECTIVE: Advance Directive [...] visual symptoms, low sugar/hypoglycemic reactions, weight loss/gain, lightheadedness/dizzin ess and bowel changes/loose stools. Patient's last HgA1C [...] time. ALLERGIES Allergen Reactions Amoxicillin Rash Clindamycin Contraindication-Medic al Surgical C diff Compazine [Prochlor* Intolerance Penicillins [...] Take 1 (more content not included)... Normal [facility] 10-30-2024 SEEMAN Telephone (AGCARDPOB ) TANIA ROMERO ([id number]) 1940 F Date Time Provider Department 10/30/24 JOSUE FAGAN During your visit today, we recorded the following information about you: Josue Fagan APRN.CNP 10/30/2024 4:26 PM Signed Patient underwent ablation of slow pathway as well as typical atrial flutter ablation with Dr. Rodriguez on 10/26/2024. Plan is for 30 days of Eliquis post ablation. As discussed with patient orders placed for 30-day event monitor to be hooked up in 1 month. Follow-up in 3 months in office with CARMEL. Josue Harkins APRN.CNP October 30, 2024 4:25 PM Olimpia Herzog 11/02/2024 7:53 AM Signed Scheduled Olimpia Herzog Allergies As of Date: 10/30/2024 Noted Allergy Reaction AMOXICILLIN 06/24/2015 2 - Rash CLINDAMYCIN 07/12/2006 15 - Contraindication-Medic al Shea* Comments: C diff COMPAZINE (PROCHLORPERAZINE EDISY*07/11/2006 5 - Intolerance PENICILLINS 07/11/2006 2 - Rash 5 - Intolerance Comments: Rash after 4 days of antibiotic . PROCHLORPERAZINE 06/30/2023 13 - Dystonia Date Reviewed: 10/26/2024 Reviewed by: Bill Humphries, RN - Fully Assessed Reason for Visit: Appointment [186] Orders [681] Primary Visit Diagnosis:S/P catheter ablation of slow pathway [Z98.890, Z86.79] Other Visit Diagnoses:Paroxysmal SVT (supraventricular tachycardia) (HCC) [I47.10] Typical atrial flutter (HCC) [I48.3] Order(s):EVENT MONITOR [[id number]] Order #: [id number]: 1 Prescriptions as of 11/02/2024 - metoprolol [...] Encounter Status:Closed by JOSUE FAGAN on 10/30/24 [facility] ANES POSTPROC EVALon 025 ANES POSTPROC EVAL HNO ID: [id number] Author: DOROTHY TERAN MD Service: Anesthesiology Author Type: Anesthesiologist Type: Anesthesia Postprocedure Evaluation Filed: 10/27/2024 14:43 Note Text: POST ANESTHESIA EVALUATION NOTE : 1940 Procedure Summary Date: 10/26/24 Room / Location: [facility] 02 / [facility] EP [facility] Anesthesia Start: 08 Anesthesia Stop: 144 Procedure: COMPLETE EPS W/SVT ABL W/WO 3D [...] October 27, 2024 TIME: 2:42 PM CSN: [id number] Normal [facility] Basic metabolic 2000 panelon 10-27-2024 Anion gap [Moles/Vol] 9 mmol/L Normal 8-15 [facility] Comment on above: Order Comment: Speci men Type: BLOOD SPECIMEN Ordering Facility: [facility] Address: [address] [place] [address] Performed By: #### 2 4321-2 #### [facility] CLIA [id number] [address] [place] [address] [place] Calcium [Mass/Vol] 8.4 mg/dL Low 8.5-10.2 [facility] Comment on above: Order Comment: Speci men Type: BLOOD SPECIMEN Ordering Facility: [facility] Address: [address] [place] [address] Performed By: #### 2 4321-2 #### [facility] CLIA [id number] [address] [place] Chloride [Moles/Vol] 106 mmol/L Normal 98-107 [facility] Comment on above: Order Comment: Speci men Type: BLOOD SPECIMEN Ordering Facility: [facility] Address: [address] [place] [address] Performed By: #### 2 4321-2 #### [facility] CLIA [id number] [address] [place] CO2 [Moles/Vol] 27 mmol/L Normal 22-30 [facility] Comment on above: Order Comment: Speci men Type: BLOOD SPECIMEN Ordering Facility: [facility] Address: [address] [place] [address] Performed By: #### 2 4321-2 #### [facility] CLIA [id number] [address] STATES [place] Creatinine [Mass/Vol] 0.89 mg/dL Normal 0.58-0.96 [facility] Comment on above: Order Comment: Speci men Type: BLOOD SPECIMEN Ordering Facility: [facility] Address: [address] [place] [address] Performed By: #### 2 4321-2 #### [facility] CLIA [id number] [address] Creatinine and Glomerular filtration rate.predicted panel (S/P/Bld) 64 mL/min/1.73m??? Normal >=60 [facility] Comment on above: Order Comment: Speci men Type: BLOOD SPECIMEN Ordering Facility: [facility] Address: [address] [place] [address] Result Comment: Alice mated Glomerular Filtration Rate [...] GFR. Performed By: #### 2 4321-2 #### [facility] CLIA [id number] 1 [place] [address] [place] Glucose [Mass/Vol] 104 mg/dL High 74-99 [facility] Comment on above: Order Comment: Selvin frazier Type: BLOOD SPECIMEN Ordering Facility: [facility] Address: [address] [place] [address] Result Comment: The [place] Diabetes Association (ADA) provides guidance for cutoff [...] Standards of Medical Care in Diabetes 2016, [place] Diabetes Association. Diabetes Care. 2016.39(Suppl 1). Performed By: #### 2 4321-2 #### [facility] CLIA [id number] 1 [place] [address] [place] Potassium [Moles/Vol] 3.9 mmol/L Normal 3.7-5.1 [facility] Comment on above: Order Comment: Selvin frazier Type: BLOOD SPECIMEN Ordering Facility: [facility] Address: [address] [place] [address] Performed By: #### 2 4321-2 #### [facility] CLIA [id number] 1 [place] [address] [place] Sodium [Moles/Vol] 142 mmol/L Normal 136-144 [facility] Comment on above: Order Comment: Selvin frazier Type: BLOOD SPECIMEN Ordering Facility: [facility] Address: [address] [place] [address] Performed By: #### 2 4321-2 #### [facility] CLIA [id number] [address] STATES OF [facility] Urea nitrogen [Mass/Vol] 25 mg/dL High 7-21 [facility] Comment on above: Order Comment: Speci men Type: BLOOD SPECIMEN Ordering Facility: [facility] Address: [address] [place] [address] Performed By: #### 2 4321-2 #### [facility] CLIA [id number] [address] CBC panel Auto (Bld)on 10-27 Erythrocyte distribution width (RBC) [Ratio] 13.6 % Normal 11.5-15.0 [facility] Comment on above: Order Comment: Speci men Type: BLOOD SPECIMENOrdering Facility: [facility] Address: [address] [place] [address] Performed By: #### 5 8410-2 ####[facility]ORYCLIA [id number] [address] STATES OF [facility] Hematocrit (Bld) [Volume fraction] 32.0 % Low 36.0-46.0 [facility] Comment on above: Order Comment: Speci men Type: BLOOD SPECIMENOrdering Facility: [facility] Address: [address] [place] [address] Performed By: #### 5 8410-2 ####[facility]ORYCLIA [id number] [address] [place] Hemoglobin (Bld) [Mass/Vol] 10.3 g/dL Low 11.5-15.5 [facility] Comment on above: Order Comment: Speci men Type: BLOOD SPECIMENOrdering Facility: [facility] Address: [address] [place] [address] Performed By: #### 5 8410-2 ####[facility]ORYCLIA [id number] [address] [place] MCH (RBC) [Entitic mass] 28.5 pg Normal 26.0-34.0 [facility] Comment on above: Order Comment: Speci men Type: BLOOD SPECIMENOrdering Facility: [facility] Address: [address] [place] [address] Performed By: #### 5 8410-2 ####[facility]ORYCLIA [id number] [address] MCHC (RBC) [Mass/Vol] 32.2 g/dL Normal 30.5-36.0 [facility] Comment on above: Order Comment: Speci men Type: BLOOD SPECIMENOrdering Facility: [facility] Address: [address] [place] [address] Performed By: #### 5 8410-2 ####[facility]ORYCLIA [id number] [address] [place] MCV (RBC) [Entitic vol] 88.6 fL Normal 80.0-100.0 [facility] Comment on above: Order Comment: Speci men Type: BLOOD SPECIMENOrdering Facility: [facility] Address: [address] [place] [address] Performed By: #### 5 8410-2 ####[facility]ORYCLIA [id number] [address] Nucleated RBC (Bld) [#/Vol] 10*3/uL Normal <0.01 [facility] Comment on above: Order Comment: Speci men Type: BLOOD SPECIMENOrdering Facility: [facility] Address: [address] [place] [address] Performed By: #### 5 8410-2 ####[facility]ORYCLIA [id number] [address] Platelet mean volume (Bld) [Entitic vol] 8.9 fL Low 9.0-12.7 [facility] Comment on above: Order Comment: Speci men Type: BLOOD SPECIMENOrdering Facility: [facility] Address: [address] [place] [address] Performed By: #### 5 8410-2 ####[facility]ORYCLIA [id number] [address] OF [facility] Platelets (Bld) [#/Vol] 170 10*3/uL Normal 150-400 [facility] Comment on above: Order Comment: Speci men Type: BLOOD SPECIMENOrdering Facility: [facility] Address: [address] [place] [address] Performed By: #### 5 8410-2 ####[facility]ORYCLIA [id number] [place] [address] [place] RBC (Bld) [#/Vol] 3.61 10*6/uL Low 3.90-5.20 [facility] Comment on above: Order Comment: Speci men Type: BLOOD SPECIMENOrdering Facility: [facility] Address: [address] [place] [address] Performed By: #### 5 8410-2 ####[facility]ORYCLIA [id number] [address] STATES OF [facility] WBC (Bld) [#/Vol] 7.71 10*3/uL Normal 3.70-11.00 [facility] Comment on above: Order Comment: Speci men Type: BLOOD SPECIMENOrdering Facility: [facility] Address: [address] [place] [address] Performed By: #### 5 8410-2 ####[facility]ORYCLIA [id number] [address] [place] CNDSon 10-27-2024 DS HNO ID: [id number] Author: JOSUE FAGAN APRN.LEAD ATG DEVELOPER Service: Electrophysiology Author Type: Nurse Practitioner Type: Discharge Summary Filed: 10/27/2024 13:13 Note Text: Attestation signed by Russell Rodriguez MD at 10/27/2024 3:21 PM Reviewed case. Agree with evaluation and plan of care as outlined by the [facility] SERVICE ATTENDANT, as we discussed. DISCHARGE SUMMARY PATIENT NAME: [...] to call for appointment?: Russell Sherman MD [phone] [place] [address] [place], [place] [id number] PCP Requested Referral Additional Provider to Provider [...] flutter and subsequent CTI ablation was performed. [id number] of at least 4 secondary to age, gender, and diabetes. Patient was started on reduced dose Eliquis 2.5 mg twice daily. Patient verbalized understanding she is to go back on her Toprol-XL 12.5 mg daily. As was discussed with attending plan is (more content not included)... Normal [facility] ANES PRE-OPon 10-26-2024 ANES PRE-OP HNO ID: [id number] Author: DOROTHY TERAN MD Service: Anesthesiology Author Type: Anesthesiologist Type: Anesthesia Preprocedure Evaluation Filed: 10/26/2024 07:56 Note Text: ANESTHESIOLOGY DAY OF SURGERY NOTE : 1940 Procedure Information Date/Time: 10/26/24 0745 Procedure: COMPLETE EPS W/SVT ABL W/WO 3D MAP LA PACE REC - CARTO/RF *NEEDS HANDP ROU Location: NE EP 02 / [facility] LAB Surgeons: Russell Rodriguez MD Estimated [...] October 26, 2024 TIME: 7:53 AM CSN: [id number] Normal [facility] Basic metabolic 2000 panelon 10-26-2024 Anion gap [Moles/Vol] 12 mmol/L Normal 8-15 [facility] Comment on above: Order Comment: Speci men Type: BLOOD SPECIMENOrdering Facility: [facility] Address: [address] [place] [address] Performed By: #### 2 4321-2 ####[facility]ATORYCLIA [id number] [place] [address] [place] Calcium [Mass/Vol] 9.3 mg/dL Normal 8.5-10.2 [facility] Comment on above: Order Comment: Speci men Type: BLOOD SPECIMENOrdering Facility: [facility] Address: [address] [place] [address] Performed By: #### 2 4321-2 ####[facility]ATORYCLIA [id number] [place] [address] [place] Chloride [Moles/Vol] 104 mmol/L Normal 98-107 [facility] Comment on above: Order Comment: Speci men Type: BLOOD SPECIMENOrdering Facility: [facility] Address: [address] [place] [address] Performed By: #### 2 4321-2 ####[facility]ORYCLIA [id number] [place] [address] [place] CO2 [Moles/Vol] 26 mmol/L Normal 22-30 [facility] Comment on above: Order Comment: Speci men Type: BLOOD SPECIMENOrdering Facility: [facility] Address: [address] [place] [address] Performed By: #### 2 4321-2 ####[facility]ATORYCLIA [id number] [place] [address] [place] Creatinine [Mass/Vol] 1.05 mg/dL High 0.58-0.96 [facility] Comment on above: Order Comment: Speci men Type: BLOOD SPECIMENOrdering Facility: [facility] Address: [address] [place] [address] Performed By: #### 2 4321-2 ####[facility]ATORYCLIA [id number] [address] [place] Creatinine and Glomerular filtration rate.predicted panel (S/P/Bld) 53 mL/min/1.73m??? Low >=60 [facility] Comment on above: Order Comment: Speci men Type: BLOOD SPECIMENOrdering Facility: [facility] Address: [address] [place] [address] Result Comment: Alice mated Glomerular Filtration Rate [...] actual GFR. Performed By: #### 2 4321-2 ####[facility]ATORYCLIA [id number] [place] [address] [place] Glucose [Mass/Vol] 117 mg/dL High 74-99 [facility] Comment on above: Order Comment: Selvin frazier Type: BLOOD SPECIMENOrdering Facility: [facility] Address: [address] [place] [address] Result Comment: The [place] Diabetes Association (ADA) provides guidance for cutoff [...] Standards of Medical Care in Diabetes 2016, [place] [employer]. Diabetes Care. 2016.39(Suppl 1). Performed By: #### 2 4321-2 ####[facility]ATORYCLIA [id number] [place] [address] [place] Potassium [Moles/Vol] 3.8 mmol/L Normal 3.7-5.1 [facility] Comment on above: Order Comment: Selvin frazier Type: BLOOD SPECIMENOrdering Facility: [facility] Address: [address] [place] [id number] Performed By: #### 2 4321-2 ####[facility]ATORYCLIA [id number] [place] [id number] [place] Sodium [Moles/Vol] 142 mmol/L Normal 136-144 [facility] Comment on above: Order Comment: Speci men Type: BLOOD SPECIMENOrdering Facility: [facility] Address: [address] [place] [address] Performed By: #### 2 4321-2 ####[facility]ORYCLIA [id number] [address] [place] Urea nitrogen [Mass/Vol] 30 mg/dL High 7-21 [facility] Comment on above: Order Comment: Speci men Type: BLOOD SPECIMENOrdering Facility: [facility] Address: [address] [place] [address] Performed By: #### 2 4321-2 ####[facility]ORYCLIA [id number] [address] STATES OF [facility] CBC panel Auto (Bld)on 10-26 Erythrocyte distribution width (RBC) [Ratio] 13.6 % Normal 11.5-15.0 [facility] Comment on above: Order Comment: Speci men Type: BLOOD SPECIMEN Ordering Facility: [facility] Address: [address] [place] [address] Performed By: #### 5 8410-2 #### [facility] CLIA [id number] [address] STATES OF [facility] Hematocrit (Bld) [Volume fraction] 38.4 % Normal 36.0-46.0 [facility] Comment on above: Order Comment: Speci men Type: BLOOD SPECIMEN Ordering Facility: [facility] Address: [address] [place] [address] Performed By: #### 5 8410-2 #### [facility] CLIA [id number] [address] [place] Hemoglobin (Bld) [Mass/Vol] 12.6 g/dL Normal 11.5-15.5 [facility] Comment on above: Order Comment: Speci men Type: BLOOD SPECIMEN Ordering Facility: [facility] Address: [address] [place] [address] Performed By: #### 5 8410-2 #### [facility] CLIA [id number] [address] MCH (RBC) [Entitic mass] 29.0 pg Normal 26.0-34.0 [facility] Comment on above: Order Comment: Speci men Type: BLOOD SPECIMEN Ordering Facility: [facility] Address: [address] [place] [address] Performed By: #### 5 8410-2 #### [facility] CLIA [id number] [address] MCHC (RBC) [Mass/Vol] 32.8 g/dL Normal 30.5-36.0 [facility] Comment on above: Order Comment: Speci men Type: BLOOD SPECIMEN Ordering Facility: [facility] Address: [address] [place] [address] Performed By: #### 5 8410-2 #### [facility] CLIA [id number] [address] MCV (RBC) [Entitic vol] 88.5 fL Normal 80.0-100.0 [facility] Comment on above: Order Comment: Speci men Type: BLOOD SPECIMEN Ordering Facility: [facility] Address: [address] [place] [address] Performed By: #### 5 8410-2 #### [facility] CLIA [id number] [address] Nucleated RBC (Bld) [#/Vol] 10*3/uL Normal <0.01 [facility] Comment on above: Order Comment: Speci men Type: BLOOD SPECIMEN Ordering Facility: [facility] Address: [address] [place] [address] Performed By: #### 5 8410-2 #### [facility] CLIA [id number] [address] Platelet mean volume (Bld) [Entitic vol] 9.0 fL Normal 9.0-12.7 [facility] Comment on above: Order Comment: Speci men Type: BLOOD SPECIMEN Ordering Facility: [facility] Address: [address] [place] [address] Performed By: #### 5 8410-2 #### [facility] CLIA [id number] [address] Platelets (Bld) [#/Vol] 260 10*3/uL Normal 150-400 [facility] Comment on above: Order Comment: Speci men Type: BLOOD SPECIMEN Ordering Facility: [facility] Address: [address] [place] [address] Performed By: #### 5 8410-2 #### [facility] CLIA [id number] [address] RBC (Bld) [#/Vol] 4.34 10*6/uL Normal 3.90-5.20 [facility] Comment on above: Order Comment: Speci men Type: BLOOD SPECIMEN Ordering Facility: [facility] Address: [address] [place] [address] Performed By: #### 5 8410-2 #### [facility] CLIA [id number] [address] WBC (Bld) [#/Vol] 7.72 10*3/uL Normal 3.70-11.00 [facility] Comment on above: Order Comment: Speci men Type: BLOOD SPECIMEN Ordering Facility: [facility] Address: [address] [place] [address] Performed By: #### 5 8410-2 #### [facility] CLIA [id number] [address] HISTORY PHYSICALon HISTORY PHYSICAL HNO ID: [id number] Author: JOSUE FAGAN APRN.LEAD ATG DEVELOPER Service: Electrophysiology Author Type: Nurse Practitioner Type: H&P Filed: 10/26/2024 08:21 Note Text: HISTORY AND PHYSICAL: ELECTROPHYSIOLOGY SERVICE SERVICE DATE: 10/26/2024 SERVICE TIME: 7:47 AM PCP: Bg Chavarria MD ATTENDING: Russell Rodriguez MD Subjective CHIEF COMPLAINT: Paroxysmal SVT (supraventricular tachycardia) ([facility]) [I47.10] Postural dizziness with presyncope [R42, R55] [...] grocery store and experienced chest pain with lightheadedness/dizzin ess. EMS was called. Twelve-lead EKG was normal [...] SVT, procedure overview, MAC, overnight stay in [facility], risk/benefits, recovery, post restrictions, and [...] MONTHLY meloxicam (MOBIC) (more content not included)... [facility] PT EDon 10-26-2024 PT ED HNO ID: [id number] Author: BONNIE SUAREZ [facility] Service: Pharmacy Author Type: Pharmacist [...] pharmacist as documented above. Bonnie Suarez, PharmD, [facility] Nursing Unit Based Pharmacist Ext: [phone] [facility] Cardiology Visit Reporton Cardiology Visit Report [facility] [address] [place] [address] OFFICE VISIT Date of Service: 10/20/24 MR#: [id number] Acct: [id number] Name: TANIA ROMERO Rep #: [id number] : 1940 Provider: Dr. Majo Arcos MD Age/Sex: 84/F [place] [facility] Status: Signed HPI HPI History of Present [...] NIBP NIBP Intake Visit Reasons: 2 M Addiction Psychiatrist Required: No Accompanied by: Is patient in [...] rhythm Heart (more content not included)... Normal [facility] 10-15-2024 [facility] Telephone (AGCARDPOB ) TANIA ROMERO ([id number]) 1940 F Date Time Provider Department 10/15/24 [...] before the procedure. You will need a transporter driver when released from the hospital and you will stay overnight for observation. You should continue to take medications as prescribed the morning of the procedure with just a sip of water but hold Metoprolol 5 days prior HANDP morning of Spoke with Tania Romero on October 15, 2024. Informed of instructions as stated above. Patient verbalized understanding. Rosanna Jones, ALEX 10/15/2024 11:55 AM Signed Pt's name has been added to shipman procedure board. ALEX Nicole Linda S RN 10/19/2024 1:03 PM Signed Tania Romero [...] 2 - Rash CLINDAMYCIN 07/12/2006 15 - Contraindication-Medic al Shea* Comments: C diff COMPAZINE (PROCHLORPERAZINE EDISY*07/11/2006 [...] (more content not included)... Normal [facility] CNOVon 09-24-2024 CNOV Office Visit (AGCARDPOB) TANIA ROMERO ([id number]) 1940 F Date Time Provider Department 09/24/24 1:00 PM RUSSELL RODRIGUEZ AGCARDPOB During your visit today, we recorded the following information about you: Pulse Respiration Blood pressure Weight 69/minute 18/minute 118/64 49.4 kg Height 1.524 m Russell Rodriguez MD 10/01/2024 11:00 AM Signed PRIMARY CARE PHYSICIAN: Bg Chavarria [address] [phone] REFERRING PHYSICIAN: Bg Chavarria [address] [phone] Patient Care Team: Bg Chavarria MD as PCP - General (Internal Medicine) Sincere Hopkins MD as Referring (Orthopedics) Sincere Hopkins MD as Home Care Provider (Orthopedics) Luis Manuel Hernandez APRN.WAREHOUSE SUPERVISOR as Segment Assembler (Internal Medicine) Linda Silva APRN.LEAD ATG DEVELOPER as Segment Assembler (Internal Medicine) CHIEF COMPLAINT: SVT/presyncope HISTORY OF [...] 2012) Low vitamin B12 level Multiple sclerosis ([facility]) 05/31/2016 Osteopenia Type 2 diabetes mellitus, without long-term current use of insulin ([facility]) 01/24/2021 PAST SURGICAL HISTORY Procedure Laterality Date [...] ALLERGIES: ALLERGIES Allergen Reactions Amoxicillin Rash Clindamycin Contraindication-Medic al Surgical C diff Compazine [Prochlor* Into (more content not included)... Normal [facility] Echo Completeon 09-08-2024 Echo [facility] [address] [place] [address] Echo Complete 09/08/24 0929 MR#: [id number] Acct: [id number] Name: TANIA ROMERO Rep #: [id number] : 1940 84 From: Majo Arcos MD [...] MD; Dr. Bg Chavarria MD Date Dictated: 09/08/24 0929 Date Transcribed: 09/08/24 8307 Preassembler And Inspector: Signed Normal [facility] Stress Reporton 09-08-2024 Stress Report [facility] [place] [address] MR#: [id number] Acct: [id number] Name: TANIA ROMERO Rep #: [id number] : 1940 84 From: Majo Arcos MD [...] of 79%. This note was generated with Pax8ation software. It may contain incorrect words, spelling, and punctuation that were not noted in checking the note before signing. 09/08/24 1058 Date Majo Arcos MD CC: Dr. Majo Arcos MD; Dr. Bg Chavarria MD Date Dictated: 09/08/241056 Date Transcribed: 09/08/241056 Preassembler And Inspector: SIMEON Signed Normal [facility] 12 Lead EKG performed by [facility] [place] 08-13-2024 12 Lead EKG performed by [facility] [address] [place] [address] 12 Lead EKG performed by [facility] 08/13/24810 MR#: [id number] Acct: [id number] Name: TANIA ROMERO Rep #: [id number] : 1940 83 From: Majo Arcos MD Attending Dr: Dr. Majo Arcos MD Status: DEP AMB Ordering Dr: Majo Arcos MD Date: 08/13/24 Location: [facility] Sex: F C Admitted: [facility]12 Lead EKG performed by [facility] ECG Report Interpretation ----Sinus Rhythm -Left atrial enlargement. -Anterior infarct -age undetermined. ABNORMAL Electronically signed on 10/26/2024 at 11:[address] Majo Arcos [employer] Version 8610 10/26/241114 Date Majo Arcos MD CC: Dr. Bg Chavarria MD Date Dictated: 08/13/24810 Date Transcribed: 08/13/24810 Preassembler And Inspector: SIMEON Signed Normal [facility] Cardiology Visit Reporton Cardiology Visit Report [facility] [address] [place] [address] OFFICE VISIT Date of Service: 08/13/24 MR#: [id number] Acct: [id number] Name: TANIA ROMERO Rep #: [id number] : 1940 Provider: Dr. Majo Arcos MD Age/Sex: 83/F Location: [facility] Status: Signed HPI HPI History of Present [...] NIBP Intake Visit Reasons: NEAR SYNCOPE (SELF) Addiction Psychiatrist Required: No Accompanied by: Is patient in [...] or heartburn (more content not included)... [facility] MY[facility] Tele[facility] (INTMWS) TANIA ROMERO ([id number]) 1940 F Date Time Provider Department 07/30/24 LUIS MANUEL HERNANDEZ During your visit today, we recorded the following information about you: Montana Esparza LPN 07/30/2024 2:03 PM Signed ----- Message from Luis Manuel Lopez APRN.WAREHOUSE SUPERVISOR sent at 07/28/2024 7:56 AM EDT ----- Please let her know that her preliminary Zio result shows primarily normal sinus rhythm but also had SVT episodes. This may well be cause of presyncope symptoms. Will add metoprolol succinate 25 mg daily. Rx to [facility]. She has an echocardiogram and cardiology appointment scheduled. Recommend ER for any severe or concerning symptoms. She has an OV today with Linda Silva CNP. Montana Esparza LPN 07/30/2024 2:26 PM Signed Left a message for pt to call the office and ask to speak to a nurse. SAURABH Holt Donna M, RN 07/30/2024 6:53 PM Signed OV today with Linda Silva SENIOR BIOSTATISTICIAN/GROUP LEADER. Antonino Reyes RN Allergies As of Date: 07/30/2024 Noted Allergy Reaction AMOXICILLIN 06/24/2015 2 - Rash CLINDAMYCIN 07/12/2006 15 - Contraindication-Medic al Shea* Comments: C diff COMPAZINE (PROCHLORPERAZINE EDISY*07/11/2006 5 - Intolerance PENICILLINS 07/11/2006 2 - Rash 5 - Intolerance Comments: Rash after 4 days of antibiotic . PROCHLORPERAZINE 06/30/2023 13 - Dystonia Date Reviewed: 07/28/2024 Reviewed by: Linda Silva APRN.LEAD ATG DEVELOPER - Fully Assessed Reason for Visit: Results [...] Encounter Status:Closed by ANTONINO REYES on 07/30/24 Normal [facility] CNOVon 07-28-2024 CNOV Office Visit (INTMWS ) TANIA ROMERO ([id number]) 1940 F Date Time Provider Department 07/28/24 10:40 AM LINDA SILVA During your visit today, we recorded the following information about you: Pulse Blood pressure Weight 75/minute 128/76 49.6 kg Linda Silva APRN.LEAD ATG DEVELOPER 07/28/2024 12:05 PM Signed SUBJECTIVE Tania Romero [...] and labs. Planning to do this with [facility]. Consulted to cardiology. Planning to see cardiology with [facility] in July. Recent zio showed [...] visit. ALLERGIES Allergen Reactions Amoxicillin Rash Clindamycin Contraindication-Medic al Surgical C diff Compazine [Prochlor* Intolerance Penicillins Rash, Intolerance Rash after 4 days of antibiotic . Prochlorperazine Dystonia ACTIVE PROBLEM LIST Paroxysmal Svt (Supraventricular Tachycardia) (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) - 06/24/2023 Trochanteric Bursitis of Right Hip - 02/08/2023 Vitamin D Deficiency - 03/04/2022 Elevated Ldl Cholesterol Level - 03/04/2022 Colon Cancer Screening - 03/04/2022 Type 2 Diabetes Mellitus, Without Long-Term Current Use of Insulin (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) - 05/31/2016 Low Vitamin B12 Level Family [...] Capillary Refill (more content not included)... Normal [facility] 07-27-2024 [facility] Telephone (FAMWS) TANIA ROMERO ([id number]) 1940 F Date Time Provider Department 07/27/24 DANIELLE BUSTAMANTE [facility] During your visit today, we recorded the [...] blocking drugs with patient for paroxysmal SVT. Linda Silva APRN.LEAD ATG DEVELOPER 07/28/2024 11:09 AM Signed Seen in office today and discussed. Allergies As of Date: 07/27/2024 Noted Allergy Reaction AMOXICILLIN 06/24/2015 2 - Rash CLINDAMYCIN 07/12/2006 15 - Contraindication-Medic al Shea* Comments: C diff COMPAZINE (PROCHLORPERAZINE EDISY*07/11/2006 [...] Status:Closed by MONTANA ESPARZA on 07/30/24 Normal [facility] Comprehensive metabolic 2000 panelon 07-23-2024 Albumin [Mass/Vol] 4.2 g/dL Normal 3.9-4.9 [facility] Comment on above: Order Comment: Speci karin Type: BLOOD SPECIMEN Ordering Facility: [facility] Address: [address] [place] [address] Performed By: #### 2 4323-8 #### [facility] CLIA [id number] [address] [place] [address] [place] [address] [place] ALP [Catalytic activity/Vol] 67 U/L Normal 34-123 [facility] Comment on above: Order Comment: Speci men Type: BLOOD SPECIMEN Ordering Facility: [facility] Address: [address] [id number] Performed By: #### 2 4323-8 #### [facility] CLIA [id number] [address] [place] [address] [place] ALT [Catalytic activity/Vol] 14 U/L Normal 7-38 [facility] Comment on above: Order Comment: Speci men Type: BLOOD SPECIMEN Ordering Facility: [facility] Address: [address] [place] [address] Performed By: #### 2 4323-8 #### [facility] CLIA [id number] [address] [place] [address] [place] Anion gap [Moles/Vol] 11 mmol/L Normal 8-15 [facility] Comment on above: Order Comment: Speci men Type: BLOOD SPECIMEN Ordering Facility: [facility] Address: [address] [place] [address] Performed By: #### 2 4323-8 #### [facility] CLIA [id number] [address] [place] [address] [place] AST [Catalytic activity/Vol] 19 U/L Normal 13-35 [facility] Comment on above: Order Comment: Speci men Type: BLOOD SPECIMEN Ordering Facility: [facility] Address: [address] [place] [address] Performed By: #### 2 4323-8 #### [facility] CLIA [id number] [address] [place] [address] [place] Bilirubin [Mass/Vol] 0.4 mg/dL Normal 0.2-1.3 [facility] Comment on above: Order Comment: Speci men Type: BLOOD SPECIMEN Ordering Facility: [facility] Address: [address] [place] [address] Performed By: #### 2 4323-8 #### [facility] CLIA [id number] [address] [place] [address] [place] Calcium [Mass/Vol] 9.4 mg/dL Normal 8.5-10.2 [facility] Comment on above: Order Comment: Speci men Type: BLOOD SPECIMEN Ordering Facility: [facility] Address: [address] [place] [address] Performed By: #### 2 4323-8 #### [facility] CLIA [id number] [address] [place] [address] [place] Chloride [Moles/Vol] 104 mmol/L Normal 98-107 [facility] Comment on above: Order Comment: Speci men Type: BLOOD SPECIMEN Ordering Facility: [facility] Address: [address] [place] [address] Performed By: #### 2 4323-8 #### [facility] CLIA [id number] [address] [place] [address] [place] CO2 [Moles/Vol] 28 mmol/L Normal 22-30 [facility] Comment on above: Order Comment: Speci men Type: BLOOD SPECIMEN Ordering Facility: [facility] Address: [address] [place] [address] Performed By: #### 2 4323-8 #### [facility] CLIA [id number] [address] [place] [address] [place] Creatinine [Mass/Vol] 0.96 mg/dL Normal 0.58-0.96 [facility] Comment on above: Order Comment: Speci men Type: BLOOD SPECIMEN Ordering Facility: [facility] Address: [address] [place] [address] Performed By: #### 2 4323-8 #### [facility] CLIA [id number] [address] [place] [address] [place] Creatinine and Glomerular filtration rate.predicted panel (S/P/Bld) 59 mL/min/1.73m??? Low >=60 [facility] Comment on above: Order Comment: Speci men Type: BLOOD SPECIMEN Ordering Facility: [facility] Address: [address] [place] [address] Result Comment: Alice mated Glomerular Filtration Rate [...] GFR. Performed By: #### 2 4323-8 #### [facility] CLIA [id number] [address] [place] [address] [place] Glucose [Mass/Vol] 115 mg/dL High 74-99 [facility] Comment on above: Order Comment: Selvin frazier Type: BLOOD SPECIMEN Ordering Facility: [facility] Address: [address] [place] [address] Result Comment: The [place] Diabetes Association (ADA) provides guidance for cutoff [...] Standards of Medical Care in Diabetes 2016, [place] Diabetes Association. Diabetes Care. 2016.39(Suppl 1). Performed By: #### 2 4323-8 #### [facility] CLIA [id number] [address] [place] [address] [place] Potassium [Moles/Vol] 4.6 mmol/L Normal 3.7-5.1 [facility] Comment on above: Order Comment: Selvin frazier Type: BLOOD SPECIMEN Ordering Facility: [facility] Address: [address] [place] [address] Performed By: #### 2 4323-8 #### [facility] CLIA [id number] [address] [place] [address] [place] Protein [Mass/Vol] 6.8 g/dL Normal 6.3-8.0 [facility] Comment on above: Order Comment: Speci men Type: BLOOD SPECIMEN Ordering Facility: [facility] Address: [address] [place] [address] Performed By: #### 2 4323-8 #### [facility] CLIA [id number] [address] [place] [address] [place] Sodium [Moles/Vol] 143 mmol/L Normal 136-144 [facility] Comment on above: Order Comment: Speci men Type: BLOOD SPECIMEN Ordering Facility: [facility] Address: [address] [place] [address] Performed By: #### 2 4323-8 #### [facility] CLIA [id number] [address] [place] [address] [place] Urea nitrogen [Mass/Vol] 31 mg/dL High 7-21 [facility] Comment on above: Order Comment: Speci men Type: BLOOD SPECIMEN Ordering Facility: [facility] Address: [address] [place] [address] Performed By: #### 2 4323-8 #### [facility] CLIA [id number] [address] [place] [address] [place] HbA1c (Bld)on 07-23-2024 Average glucose Estimated from glycated hemoglobin (Bld) [Mass/Vol] 140 mg/dL Normal [facility] Comment on above: Order Comment: Speci men Type: BLOOD SPECIMEN Ordering Facility: [facility] Address: [address] [place] [address] Result Comment: eAG: (Estimated average glucose) is a calculated value from HgbA1c and is customer sales representative of the average blood glucose level in the last 2-3 month period. Performed By: #### 1 989-3 #### [facility] CLIA [id number] [address] [place] [address] [place] HbA1c (Bld) [Mass fraction] 6.5 % High 4.3-5.6 [facility] Comment on above: Order Comment: Selvin karin Type: BLOOD SPECIMEN Ordering Facility: [facility] Address: [address] [place] [address] Result Comment: [place]in [place] Diabetes Association guidelines indicate that patients with HgbA1c in the range 5.7-6.4% are at increased risk for development of diabetes, and intervention by lifestyle modification may be beneficial. HgbA1c greater or equal to 6.5% is considered diagnostic of diabetes. Performed By: #### 1 989-3 #### [facility] CLIA [id number] [address] [place] [address] [place] CNOVon 07-13-2024 CNOV Office Visit (ORMDNA ) TANIA ROMERO ([id number]) 1940 F Date Time Provider Department 07/13/24 [...] which included preparing to see the patient, [id number] patient care, completing clinical documentation, obtaining and/or reviewing separately obtained history, performing a medically appropriate examination, counseling and educating the patient/family/caregiv er, and care coordination (not separately reported). Sincere Hopkins MD Associate Staff Physician [facility] Department of Orthopedic Surgery Allergies As of Date: 07/13/2024 Noted Allergy Reaction AMOXICILLIN 06/24/2015 2 - Rash CLINDAMYCIN 07/12/2006 15 - Contraindication-Medic al Shea* Comments: C diff COMPAZINE (PROCHLORPERAZINE EDISY*07/11/2006 [...] [G89.18] 08/01/2023 03/24/2024 Level of Service: OFFICE/OUTPATIENT ESTABLI (more content not included)... Normal [facility] XR HIP 3V PELV+ AP/LAT RTon 07-13-2024 [...] total hip arthroplasty without evidence of complication. Preassembler And Inspector: PSCB Transcribe Date/Time: Jul 19 2024 7:47P Dictated by : JIMMY BALTAZAR MD This examination was interpreted and the report reviewed and electronically signed by: JIMMY BALTAZAR MD on Jul 19 2024 7:47PM EST [id number] Normal [facility] CBC W Auto Differential pane l (Bld)on 07-06-2024 Basophils (Bld) [#/Vol] 0.04 10*3/uL Normal <0.11 [facility] Comment on above: Order Comment: Speci men Type: BLOOD SPECIMENOrdering Facility: [facility] Address: [address] [place] [address] Performed By: #### 5 7021-8 ####[facility] [id number] [place] [address] [place] Basophils/100 WBC (Bld) 0.4 % Normal C [facility] Comment on above: Order Comment: Speci men Type: BLOOD SPECIMENOrdering Facility: [facility] Address: [address] [place] [address] Performed By: #### 5 7021-8 ####[facility] [id number] [place] [address] [place] Differential cell count method Nom (Bld) Auto Normal [facility] Comment on above: Order Comment: Speci men Type: BLOOD SPECIMENOrdering Facility: [facility] Address: [address] [place] [address] Performed By: #### 5 7021-8 ####[facility] [id number] [place] [address] [place] Eosinophils (Bld) [#/Vol] 0.17 10*3/uL Normal <0.46 [facility] Comment on above: Order Comment: Speci men Type: BLOOD SPECIMENOrdering Facility: [facility] Address: [address] [place] [address] Performed By: #### 5 7021-8 ####[facility] [id number] [place] [address] [place] Eosinophils/100 WBC (Bld) 1.9 % Normal [facility] Comment on above: Order Comment: Speci men Type: BLOOD SPECIMENOrdering Facility: [facility] Address: [address] [place] [address] Performed By: #### 5 7021-8 ####[facility] [id number] [place] [address] [place] Erythrocyte distribution width (RBC) [Ratio] 13.5 % Normal 11.5-15.0 [facility] Comment on above: Order Comment: Speci men Type: BLOOD SPECIMENOrdering Facility: [facility] Address: [address] [place] [address] Performed By: #### 5 7021-8 ####[facility] [id number] [place] [address] [place] Hematocrit (Bld) [Volume fraction] 38.9 % Normal 36.0-46.0 [facility] Comment on above: Order Comment: Speci men Type: BLOOD SPECIMENOrdering Facility: [facility] Address: [address] [place] [address] Performed By: #### 5 7021-8 ####[facility] [id number] [place] [address] [place] Hemoglobin (Bld) [Mass/Vol] 12.4 g/dL Normal 11.5-15.5 [facility] Comment on above: Order Comment: Speci men Type: BLOOD SPECIMENOrdering Facility: [facility] Address: [address] [place] [address] Performed By: #### 5 7021-8 ####[facility] [id number] [place] [address] [place] Immature granulocytes (Bld) [#/Vol] 10*3/uL Normal <0.10 [facility] Comment on above: Order Comment: Speci men Type: BLOOD SPECIMENOrdering Facility: [facility] Address: [address] [place] [address] Performed By: #### 5 7021-8 ####[facility] [id number] [place] [address] [place] Immature granulocytes/100 WBC (Bld) 0.2 % Normal [facility] Comment on above: Order Comment: Speci men Type: BLOOD SPECIMENOrdering Facility: [facility] Address: [address] [place] [address] Performed By: #### 5 7021-8 ####[facility] [id number] [place] [address] [place] Lymphocytes (Bld) [#/Vol] 2.49 10*3/uL Normal 1.00-4.00 [facility] Comment on above: Order Comment: Speci men Type: BLOOD SPECIMENOrdering Facility: [facility] Address: [address] [place] [address] Performed By: #### 5 7021-8 ####[facility] [id number] [place] [address] [place] Lymphocytes/100 WBC (Bld) 27.7 % Normal [facility] Comment on above: Order Comment: Speci men Type: BLOOD SPECIMENOrdering Facility: [facility] Address: [address] [place] [address] Performed By: #### 5 7021-8 ####[facility] [id number] [place] [address] [place] MCH (RBC) [Entitic mass] 28.7 pg Normal 26.0-34.0 [facility] Comment on above: Order Comment: Speci men Type: BLOOD SPECIMENOrdering Facility: [facility] Address: [address] [place] [address] Performed By: #### 5 7021-8 ####[facility] [id number] [place] [address] [place] MCHC (RBC) [Mass/Vol] 31.9 g/dL Normal 30.5-36.0 [facility] Comment on above: Order Comment: Speci men Type: BLOOD SPECIMENOrdering Facility: [facility] Address: [address] [place] [address] Performed By: #### 5 7021-8 ####[facility] [id number] [place] [address] [place] MCV (RBC) [Entitic vol] 90.0 fL Normal 80.0-100.0 C [facility] Comment on above: Order Comment: Speci men Type: BLOOD SPECIMENOrdering Facility: [facility] Address: [address] [place] [address] Performed By: #### 5 7021-8 ####[facility] [id number] [place] [address] [place] Monocytes (Bld) [#/Vol] 0.81 10*3/uL Normal <0.87 [facility] Comment on above: Order Comment: Speci men Type: BLOOD SPECIMENOrdering Facility: [facility] Address: [address] [place] [address] Performed By: #### 5 7021-8 ####[facility] [id number] [place] [address] [place] Monocytes/100 WBC (Bld) 9.0 % Normal [facility] Comment on above: Order Comment: Speci men Type: BLOOD SPECIMENOrdering Facility: [facility] Address: [address] [place] [address] Performed By: #### 5 7021-8 ####[facility] [id number] [place] [address] [place] Neutrophils (Bld) [#/Vol] 5.45 10*3/uL Normal 1.45-7.50 [facility] Comment on above: Order Comment: Speci men Type: BLOOD SPECIMENOrdering Facility: [facility] Address: [address] [place] [address] Performed By: #### 5 7021-8 ####[facility] [id number] [place] [address] [place] Neutrophils/100 WBC (Bld) 60.8 % Normal [facility] Comment on above: Order Comment: Speci men Type: BLOOD SPECIMENOrdering Facility: [facility] Address: [address] [place] [address] Performed By: #### 5 7021-8 ####[facility] [id number] [place] [address] [place] Nucleated RBC (Bld) [#/Vol] 10*3/uL Normal <0.01 [facility] Comment on above: Order Comment: Speci men Type: BLOOD SPECIMENOrdering Facility: [facility] Address: [address] [place] [address] Performed By: #### 5 7021-8 ####[facility] [id number] [place] [address] [place] Nucleated RBC/100 WBC (Bld) [Ratio] 0.0 /100 WBC Normal [facility] Comment on above: Order Comment: Speci men Type: BLOOD SPECIMENOrdering Facility: [facility] Address: [address] [place] [address] Performed By: #### 5 7021-8 ####[facility] [id number] [place] [address] [place] Platelet mean volume (Bld) [Entitic vol] 9.9 fL Normal 9.0-12.7 [facility] Comment on above: Order Comment: Speci men Type: BLOOD SPECIMENOrdering Facility: [facility] Address: [address] [place] [address] Performed By: #### 5 7021-8 ####[facility] [id number] [place] [address] [place] Platelets (Bld) [#/Vol] 306 10*3/uL Normal 150-400 [facility] Comment on above: Order Comment: Speci men Type: BLOOD SPECIMENOrdering Facility: [facility] Address: [address] [place] [address] Performed By: #### 5 7021-8 ####[facility] [id number] [place] [address] [place] RBC (Bld) [#/Vol] 4.32 10*6/uL Normal 3.90-5.20 [facility] Comment on above: Order Comment: Speci men Type: BLOOD SPECIMENOrdering Facility: [facility] Address: [address] [place] [address] Performed By: #### 5 7021-8 ####[facility] [id number] [place] [id number] [place] WBC (Bld) [#/Vol] 8.98 10*3/uL Normal 3.70-11.00 [facility] Comment on above: Order Comment: Speci men Type: BLOOD SPECIMENOrdering Facility: [facility] Address: [address] [place] [address] Performed By: #### 5 7021-8 ####[facility] [id number] [facility] [place] [id number] [place] CNOVon 07-06-2024 CNOV Office Visit (INTMWS ) TANIA ROMERO ([id number]) 1940 F Date Time Provider Department 07/06/24 10:20 AM LUIS MANUEL HERNANDEZ INTILEANA During your visit today, we recorded the following information about you: Pulse Respiration Blood pressure Weight 71/minute 16/minute 133/[address] 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 Luis Manuel Hernandez, BINDERY SUPERVISOR.WAREHOUSE SUPERVISOR 07/28/2024 7:57 AM Addendum SUBJECTIVE: Depression Screening [...] hydration and increase sodium intake. Seen by [facility] for preoperative evaluation 2020, stress [...] get a fitness tracker. Currently following with [facility]: only for pre-operative clearance 2020, [...] MS flare symptoms. Neurologist: Previously followed at [facility], Dr Andrea Dobbins. No current neurologist no recent visit. Last MRI 2018: IMPRESSION: Multiple intracranial white matter lesions compatible with multiple sclerosis. No new T2 lesions and no new enhancing lesions. Mild parenchymal volume loss. Other significant findings: None. DIABETES MELLITUS: Without report of excessive thirst or increased frequency of urination, chest pain or dysp (more content not included)... Normal [facility] ECG COMPLETEon 07-06-2024 Atrial Rate [address] [facility] Calculated P Browns 34 degrees [facility] Calculated R Browns -30 degrees [facility] Cal[facility] T Browns [facility]R Interval [address] [facility] QRS Duration 68 ms [facility] QT Interval [address] [facility] QTC Calculation (Bazett) [address] [facility] Ventricular Rate 59 BPM [facility] SINUS BRADYCARDIA LEFT AXIS DEVIATION ANTERIOR MYOCARDIAL INFARCTION , AGE UNDETERMINED ABNORMAL ECG Confirmed by MD BUCKLEY GREGORY () on 07/06/2024 5:34:23 PM [facility] NAME : CRIS ROMERO PID : [id number] : 1940 Gender : Female Race : ORD : [id number] Procedure Date : Jul 06 2024 11:40:56 [...] : Peter PETERSON, [facility] ECG COMPLETE Ventricular Rate : 5 9 BPM Atrial Rate : 59 BPM P-R Interval : 144 ms QRS Duration : 68 ms Q-T Interval : 406 ms QTC Calculation(Bazett) : 401 ms Calculated P Browns : 34 degrees Calculated R Browns : -30 degrees Calculated T Browns : 17 degrees SINUS BRADYCARDIA LEFT AXIS DEVIATION ANTERIOR MYOCARDIAL INFARCTION , AGE UNDETERMINED ABNORMAL ECG Confirmed by MD BUCKLEY GREGORY () on 07/06/2024 5:34:23 PM NAME : TANIA ROMERO PID : [id number] : 1940 Gender : Female Race : ORD : [id number] Procedure Date : Jul 06 2024 11:40:56 [...] : MD BUCKLEY GREGORY Referred By : ULIS MANUEL HERNANDEZ Acquired by : Rodolfo HATFIELD [facility] TSH SerPl-aCncon 07-06-2024 TSH Qn 2.300 m[IU]/L Normal 0.270-4.200 [facility] Comment on above: Order Comment: Speci men Type: BLOOD SPECIMEN Ordering Facility: [facility] Address: [address] [place] [address] Performed By: #### 1 [id number] #### [facility] CLIA [id number] [address] [place] [address] [place] [address] [place] CNOVon 05-18-2024 CNOV Office Visit (INTMWS ) TANIA ROMERO ([id number]) 1940 F Date Time Provider Department 05/18/24 10:00 AM BG CHAVARRIA INTMWS During your visit today, we recorded the following information about you: Temperature Pulse Respiration Blood pressure 97.4 degrees 79/minute 16/minute 134/68 Weight 50 kg Bg Chavarria MD 05/18/2024 10:46 AM Signed This note was created using [employer]. Subjective Tania Romero is a 83 year [...] Low vitamin B12 level 05/31/2016: Multiple sclerosis ([facility]) No date: Osteopenia 01/24/2021: Type 2 diabetes mellitus, without long-term current use of insulin ([facility]) Current Outpatient Medications Medication Sig alendronate (FOSAMAX) [...] (5'). W (more content not included)... Normal [facility] CNOVon 05-07-2024 CNOV Office Visit (ORQUIDEA ) TANIA ROMERO ([id number]) 1940 F Date Time Provider Department 05/07/24 [...] ROM No pain with hip ROM Neg [facility] Prepatellar bursal swelling, L knee only No [...] which included preparing to see the patient, [id number] patient care, completing clinical documentation, obtaining and/or reviewing separately obtained history, performing a medically appropriate examination, counseling and educating the patient/family/caregiv er, and care coordination (not separately reported). Lorena Jacobsen MD Orthopaedic Surgery Allergies As of Date: 05/07/2024 Noted Allergy Reaction AMOXICILLIN 06/24/2015 2 - Rash CLINDAMYCIN 07/12/2006 15 - Contraindication-Medic al Shea* Comments: C diff COMPAZINE (PROCHLORPERAZINE EDISY*07/11/2006 [...] Encounter Status:Closed by LORENA JACOBSEN on 05/08/24 [facility] XR HIP 2V AP/ LAT LTon 05-07 [...] seen. IMPRESSION: Stable bilateral total hip arthroplasties Preassembler And Inspector: HYUN Transcribe Date/Time: May 07 2024 2:24P Dictated by : BELKIS MAGAÑA DO This examination was interpreted and the report reviewed and electronically signed by: BELKIS MAGAÑA DO on May 07 2024 2:25PM EST [id number] [facility] XR Hip - left AP and Lateral on 05-07-2024 IMPRESSION: Stable bilateral total hip arthroplasties Preassembler And Inspector: HYUN Transcribe Date/Time: May 07 2024 2:24P Dictated by : BELKIS MAGAÑA DO This examination was interpreted and the report reviewed and electronically signed by: BELKIS MAGAÑA DO on May 07 2024 2:25PM EST [facility] * * *Final Report* * * [...] Left :No fractures or dislocations are seen. [facility] Provider, [facility] - 05/07/2024 * * *Final Report* * [...] IMPRESSION IMPRESSION: Stable bilateral total hip arthroplasties Preassembler And Inspector: HYUN Transcribe Date/Time: May 07 2024 2:24P Dictated by : BELKIS MAGAÑA DO This examination was interpreted and the report reviewed and electronically signed by: BELKIS MAGAÑA DO on May 07 2024 2:25PM [facility] Study observation (narrative) [facility] XR Hip - left AP and Lateral Ordered By: Ccf Provider on 05-07-2024 [facility] XR Knee - left 4 Viewson IMPRESSION: No acute fracture. Degenerative disease of bilateral knees. Preassembler And Inspector: KATHYB Transcribe Date/Time: Apr 06 2024 4:07P Dictated by : ALIZA NDIAYE MD This examination was interpreted and the report reviewed and electronically signed by: ALIZA NDIAYE MD on Apr 06 2024 4:08PM [facility] DIVISION OF RADIOLOGY * * *Final Report* [...] acute fracture. Degenerative disease of bilateral knees. Preassembler And Inspector: PSCB Transcribe Date/Time: Apr 06 2024 4:07P Dictated by : ALIZA NDIAYE MD This examination was interpreted and the report reviewed and electronically signed by: ALIZA NDIAYE MD on Apr 06 2024 4:08PM [facility] XR Knee - left 4 ViewsOrdere d By: Ccf Provider on 04-06-2024 [facility] XR Knee - left 4 Viewson Radiology Study observation (narrative) [facility] HEMOGLOBIN A1C (POC)on 11-18 HbA1c (Bld) [Mass fraction] 6.6 % Abnormal 4.3 - 5.6 % [facility] XR Pelvis and Hip - right AP and Lateral frogon 10-17-2023 IMPRESSION: Right hip total arthroplasty without evidence of hardware complication.. Preassembler And Inspector: PSCB Transcribe Date/Time: Oct 17 2023 1:54P Dictated by : CONNIE OSUNA MD This examination was interpreted and the report reviewed and electronically signed by: CONNIE OSUNA MD on Oct 17 2023 1:56PM [facility] * * *Final Report* * * [...] sacroiliac joints and pubic symphysis. Bony demineralization. [facility] Provider, [facility] - 10/17/2023 * * *Final Report* * [...] total arthroplasty without evidence of hardware complication.. Preassembler And Inspector: [facility] Transcribe Date/Time: Oct 17 2023 1:54P Dictated by : CONNIE OSUNA MD This examination was interpreted and the report reviewed and electronically signed by: CONNIE OSUNA MD on Oct 17 2023 1:56PM EST [facility] XR Pelvis and Hip - right AP and Lateral frogOrdered By: Ccf Provider on 10-17-2023 [facility] XR HIP 3V PELV+ AP/LAT RTon [...] total arthroplasty without evidence of hardware complication.. Preassembler And Inspector: [facility] Transcribe Date/Time: Oct 17 2023 1:54P Dictated by : CONNIE OSUNA MD This examination was interpreted and the report reviewed and electronically signed by: CONNIE OSUNA MD on Oct 17 2023 1:56PM EST [id number] Normal [facility] XR Pelvis and Hip - right AP and Lateral frogon 10-16-2023 Radiology Study observation (narrative) [facility] XR Pelvis and Hip - right AP and Lateral frogon 07-15-2023 IMPRESSION: Intact right total hip arthroplasty without complication. 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 [facility] * * *Final Report* [...] Intact right total hip arthroplasty without complication. Preassembler And Inspector: HYUN Transcribe Date/Time: Jul 15 2023 12:22P Dictated by : JUDSON ADAMES MD This examination was interpreted and the report reviewed and electronically signed by: JUDSON ADAMES MD on Jul 15 2023 12:24PM EST [facility] XR Pelvis and Hip - right AP and Lateral frogOrdered By: Ccf Provider on 07-15-2023 [facility] XR Pelvis and Hip - right AP and Lateral frogon 07-12-2023 Radiology Study observation (narrative) [facility] COVID NAAT, UPPER RESPIRATOR Y, ROUTINEon 06-21-2023 SARS-CoV-2 (COVID-19) RNA ONOFRE+probe Ql (Resp) Not detected See comment [facility] STREP A MOLECULAR (POC)on Procedural Control Valid [facility] Strep A (POCT) Negative Negative [facility] C-REACTIVE PROTEIN (CRP)on 0 05-17-2023 CRP [Mass/Vol] <0.9 mg/dL [facility] ESR Westergren method (Bld) [Velocity]on 05-16-2023 ESR (Bld) [Velocity] 25 mm/h High 0 - 20 mm/hr [facility] No Panel InformationOrdered By: Ccf Provider on 05-03-2023 Radiology Result ACTIONABLE Abnormal [facility] Comment on above: This report contains [...] Interpretation and review of laboratory results Abnormal [facility] XR Pelvis and Hip - right AP and Lateral frogon 05-03-2023 IMPRESSION: No acute osseous findings. Interval development of moderate to severe flattening of the right femoral head; suspect sequela of osteonecrosis. ACTIONABLE RESULT: FOLLOW-UP Acuity: Actionable Findings: Musculoskeletal/Rheuma tologic System Routing Code: MSK_1 Recommendation: Follow-up Time Frame: At the discretion of the clinical team. COMMUNICATION: Results will be communicated with the ordering provider via [employer] staff message or phone message by [employer] within 2 business days of report finalization. Algorithms for management of incidental imaging findings can be found on the [facility] Intranet Sharepoint site at: [email or web address] [email or web address]%20Incidenta l%20Findi ngs%20at%20Imaging/For ms/AllItems.aspx Preassembler And Inspector: HYUN Transcribe Date/Time: May 03 2023 4:18P Dictated by : WEI EDWARDS MD This examination was interpreted and the report reviewed and electronically signed by: WEI EDWARDS MD on May 03 2023 4:25PM [facility] DIVISION OF RADIOLOGY * * *Final Report* [...] total hip arthroplasty. DIVISION OF RADIOLOGY Provider, [facility] - 05/03/2023 * * *Final Report* * [...] osteonecrosis. ACTIONABLE RESULT: FOLLOW-UP Acuity: Actionable Findings: Musculoskeletal/Rheuma tologic System Routing Code: MSK_1 Recommendation: Follow-up Time Frame: At the discretion of the clinical team. COMMUNICATION: Results will be communicated with the ordering provider via [employer] staff message or phone message by [employer] within 2 business days of report finalization. Algorithms for management of incidental imaging findings can be found on the [facility] Intranet Sharepoint site at: [email or web address] [email or web address] [email or web address]%20Incidenta l%20Findi ngs%20at%20Imaging/For ms/AllItems.aspx Preassembler And Inspector: HYUN Transcribe Date/Time: May 03 2023 4:18P Dictated by : WEI EDWARDS MD This examination was interpreted and the report reviewed and electronically signed by: WEI EDWARDS MD on May 03 2023 4:25PM [facility] Study observation (narrative) [facility] IMAGING GUIDED ASP/INJ HIP J T/BURSA RIGHTon 03-20-2023 [facility] XR Hip - right AP and [...] Stable left total hip arthroplasty. No fracture. [facility] * * *Final Report* [...] fracture. IMPRESSION IMPRESSION: Progressive right hip osteoarthrosis Preassembler And Inspector: HYUN Transcribe Date/Time: Feb 09 2023 6:37P Dictated by : SALVATORE AYERS MD This examination was interpreted and the report reviewed and electronically signed by: SALVATORE AYERS MD on Feb 09 2023 6:38PM EST [facility] XR Hip - right AP and Latera lOrdered By: Ccf Provider on 02-09-2023 [facility] XR Hip - right AP and Latera jim 02-07-2023 Radiology Study observation (narrative) [facility] XR Pelvis and Hip - right AP and Lateral frogon 09-18-2022 IMPRESSION: 1. No radiographic evidence of acute osseous injury. 2. Degenerative changes. 3. Right hip chondrocalcinosis. Preassembler And Inspector: HYUN Transcribe Date/Time: Sep 18 2022 8:49A Dictated by : JOSE BLANCHARD MD This examination was interpreted and the report reviewed and electronically signed by: JOSE BLANCHARD MD on Sep 18 2022 8:50AM [facility] DIVISION OF RADIOLOGY * * *Final Report* [...] 2. Degenerative changes. 3. Right hip chondrocalcinosis. Preassembler And Inspector: HYUN Transcribe Date/Time: Sep 18 2022 8:49A Dictated by : JOSE BLANCHARD MD This examination was interpreted and the report reviewed and electronically signed by: JOSE BLANCHARD MD on Sep 18 2022 8:50AM EST [facility] XR Pelvis and Hip - right AP and Lateral frogOrdered By: Ccf Provider on 09-18-2022 [facility] XR Pelvis and Hip - right AP and Lateral frogon 09-14-2022 Radiology Study observation (narrative) [facility] XR Foot - bilateral AP and L ateral and obliqueon 09-10-2022 IMPRESSION: 1. Subtle linear lucency at the base of the proximal findings of the right second toe which could represent an undisplaced fracture. Correlation with point tenderness is recommended. 2. Bilateral first metatarsophalangeal degenerative disease. Preassembler And Inspector: PSCB Transcribe Date/Time: Sep 10 2022 4:33P Dictated by : ALIZA NDIAYE MD This examination was interpreted and the report reviewed and electronically signed by: ALIZA NDIAYE MD on Sep 10 2022 4:37PM [facility] DIVISION OF RADIOLOGY * * *Final Report* [...] toe hammertoe deformities. DIVISION OF RADIOLOGY Provider, [facility] - 09/10/2022 * * *Final [...] recommended. 2. Bilateral first metatarsophalangeal degenerative disease. Preassembler And Inspector: PSCB Transcribe Date/Time: Sep 10 2022 4:33P Dictated by : ALIZA NDIAYE MD This examination was interpreted and the report reviewed and electronically signed by: ALIZA NDIAYE MD on Sep 10 2022 4:37PM EST [facility] XR Foot - bilateral AP and L ateral and obliqueOrdered By: Ccf Provider on 09-10-2022 [facility] XR Foot - bilateral AP and L ateral and obliqueon 09-07-2022 Radiology Study observation (narrative) [facility] COLONOSCOPY DIAGNOSTICon [facility] ANGIE SCREENINGon 03-06-2022 [facility] GLUCOSE, BLOOD (POC)on 03-02 Glucose [Mass/Vol] 117 mg/dL Abnormal 74 - 99 mg/dL [facility] Vital Signs Date Time Vital Sign Value Performing Clinician Facility 05-22-2025 21:37-0400 Body temperature 98.2 [degF] Dr. Bg Chavarria MD Work Phone: [facility] 05-22-2025 21:37-0400 Diastolic blood pressure 81 mm[Hg] Dr. Bg Chavarria MD Work Phone: [facility] 05-22-2025 21:37-0400 Heart rate 73 /min Dr. Bg Chavarria MD Work Phone: [facility] 05-22-2025 21:37-0400 Respiratory rate 15 /min Dr. Bg Chavarria MD Work Phone: [facility] 05-22-2025 21:37-0400 SaO2% (BldA) [Mass fraction] 97 % Dr. Bg Chavarria MD Work Phone: [facility] 05-22-2025 21:37-0400 Systolic blood pressure 159 mm[Hg] Dr. Bg Chavarria MD Work Phone: 8(478)330-309055 [place] [address] 05-22-2025 17:06-0400 Body mass index (BMI) [Ratio] 21.7 kg/m2 Dr. Bg Chavarria MD Work Phone: 8(310)689-605155 [place] [address] 05-22-2025 17:06-0400 Body weight 52.[address] Bg Chavarria MD Work Phone: 1(335)118-645055 [place] [address] 05-22-2025 16:56-0400 Body height 154.[address] Bg Chavarria MD Work Phone: 5(030)926-406455 [place] [address] 04-20-2025 07:39-0400 Body height 154.[address] Bg Chavarria MD Work Phone: 3(336)042-857055 [place] [address] 04-20-2025 07:39-0400 Body mass index (BMI) [Ratio] 20.9 kg/m2 Dr. Bg Chavarria MD Work Phone: 0(959)472-010155 [place] [address] 04-20-2025 07:39-0400 Body weight 50.[address] Bg Chavarria MD Work Phone: 9(184)488-080255 [place] [address] 04-20-2025 07:39-0400 Diastolic blood pressure 69 mm[Hg] Dr. Bg Chavarria MD Work Phone: 0(110)163-024955 [place] [address] 04-20-2025 07:39-0400 Heart rate 67 /min Dr. Bg Chavarria MD Work Phone: 7(491)135-559095 [place] [address] 04-20-2025 07:39-0400 Respiratory rate 18 /min Dr. Bg Chavarria MD Work Phone: 3(540)784-318455 [place] [address] 04-20-2025 07:39-0400 SaO2% (BldA) [Mass fraction] 94 % Dr. Bg Chavarria MD Work Phone: 7(910)239-577155 [place] [address] 04-20-2025 07:39-0400 Systolic blood pressure 129 mm[Hg] Dr. Bg Chavarria MD Work Phone: [facility] 03-19-2025 09:57-0400 Diastolic blood pressure 62 mm[Hg] Bg Chavarria MD Work Phone: [facility] 03-19-2025 09:57-0400 Heart rate 80 /min Bg Chavarria MD Work Phone: [facility] 03-19-2025 09:57-0400 Systolic blood pressure 128 mm[Hg] Bg Chavarria MD Work Phone: [facility] 03-19-2025 09:55-0400 Body mass index (BMI) [Ratio] 21.53 kg/m2 Bg Chavarria MD Work Phone: [facility] 03-19-2025 09:55-0400 Body weight 50 kg Bg Chavarria MD Work Phone: [facility] 03-19-2025 09:55-0400 Respiratory rate 16 /min Bg Chavarria MD Work Phone: [facility] 02-25-2025 12:42-0400 Body mass index (BMI) [Ratio] 21.61 kg/m2 Madeleine Praisler-Wood BINDERY SUPERVISOR.LEAD ATG DEVELOPER Work Phone: [facility] 02-25-2025 12:42-0400 Body temperature 98.6 [degF] Madeleine Praisler-Wood BINDERY SUPERVISOR.LEAD ATG DEVELOPER Work Phone: [facility] 02-25-2025 12:42-0400 Body weight 50.2 kg Madeleine Praisler-Wood BINDERY SUPERVISOR.LEAD ATG DEVELOPER Work Phone: [facility] 02-25-2025 12:42-0400 Diastolic blood pressure 77 mm[Hg] Madeleine Praisler-Wood BINDERY SUPERVISOR.LEAD ATG DEVELOPER Work Phone: [facility] 02-25-2025 12:42-0400 Heart rate 80 /min Madeleine Praisler-Wood BINDERY SUPERVISOR.LEAD ATG DEVELOPER Work Phone: [facility] 02-25-2025 12:42-0400 Respiratory rate 20 /min Madeleine Praisler-Wood BINDERY SUPERVISOR.LEAD ATG DEVELOPER Work Phone: [facility] 02-25-2025 12:42-0400 SaO2% (BldA) [Mass fraction] 96 % Madeleine Jung BINDERY SUPERVISOR.LEAD ATG DEVELOPER Work Phone: [facility] 02-25-2025 12:42-0400 Systolic blood pressure 127 mm[Hg] Madeleine Jung BINDERY SUPERVISOR.LEAD ATG DEVELOPER Work Phone: [facility] 02-15-2025 15:45-0400 Body mass index (BMI) [Ratio] 22.38 kg/m2 Oxana Darling BINDERY SUPERVISOR.LEAD ATG DEVELOPER Work Phone: [facility] 02-15-2025 15:45-0400 Body weight 51.98 kg Oxana Darling BINDERY SUPERVISOR.LEAD ATG DEVELOPER Work Phone: [facility] 02-15-2025 15:45-0400 Diastolic blood pressure 63 mm[Hg] Oxana Darling BINDERY SUPERVISOR.LEAD ATG DEVELOPER Work Phone: [facility] 02-15-2025 15:45-0400 Heart rate 69 /min Oxana Darling BINDERY SUPERVISOR.LEAD ATG DEVELOPER Work Phone: [facility] 02-15-2025 15:45-0400 SaO2% (BldA) [Mass fraction] 95 % Oxana Darling BINDERY SUPERVISOR.LEAD ATG DEVELOPER Work Phone: [facility] 02-15-2025 15:45-0400 Systolic blood pressure 126 mm[Hg] Oxana Darling BINDERY SUPERVISOR.LEAD ATG DEVELOPER Work Phone: [facility] 11-20-2024 09:53-0500 Body mass index (BMI) [Ratio] 22.13 kg/m2 Bg Chavarria MD Work Phone: [facility] 11-20-2024 09:53-0500 Body weight 51.4 kg Bg Chavarria MD Work Phone: [facility] 11-20-2024 09:53-0500 Diastolic blood pressure 80 mm[Hg] Bg Chavarria MD Work Phone: [facility] 11-20-2024 09:53-0500 Heart rate 72 /min Bg Chavarria MD Work Phone: [facility] 11-20-2024 09:53-0500 Respiratory rate 12 /min Bg Chavarria MD Work Phone: [facility] 11-20-2024 09:53-0500 SaO2% (BldA) [Mass fraction] 97 % Bg Chavarria MD Work Phone: [facility] 11-20-2024 09:53-0500 Systolic blood pressure 118 mm[Hg] Bg Chavarria MD Work Phone: [facility] 11-02-2024 10:57-0500 Body mass index (BMI) [Ratio] 21.96 kg/m2 Luis Manuel Hernandez BINDERY SUPERVISOR.WAREHOUSE SUPERVISOR Work Phone: [facility] 11-02-2024 10:57-0500 Body weight 51 kg Luis Manuel Hernandez BINDERY SUPERVISOR.WAREHOUSE SUPERVISOR Work Phone: [facility] 11-02-2024 10:57-0500 Diastolic blood pressure 72 mm[Hg] Luis Manuel Hernandez BINDERY SUPERVISOR.WAREHOUSE SUPERVISOR Work Phone: [facility] 11-02-2024 10:57-0500 Heart rate 67 /min Luis Manuel Hernandez BINDERY SUPERVISOR.WAREHOUSE SUPERVISOR Work Phone: [facility] 11-02-2024 10:57-0500 Respiratory rate 16 /min Luis Manuel Hernandez BINDERY SUPERVISOR.WAREHOUSE SUPERVISOR Work Phone: [facility] 11-02-2024 10:57-0500 SaO2% (BldA) [Mass fraction] 97 % Luis Manuel Hernandez BINDERY SUPERVISOR.WAREHOUSE SUPERVISOR Work Phone: [facility] 11-02-2024 10:57-0500 Systolic blood pressure 129 mm[Hg] Luis Manuel Hernandez BINDERY SUPERVISOR.WAREHOUSE SUPERVISOR Work Phone: [facility] 09-24-2024 13:10-0500 Body height 152.4 cm Russell Rodriguez MD Work Phone: [facility] 09-24-2024 13:10-0500 Body mass index (BMI) [Ratio] 21.29 kg/m2 Russell Rodriguez MD Work Phone: [facility] 09-24-2024 13:10-0500 Body weight 49.44 kg Russell Rodriguez MD Work Phone: [facility] 09-24-2024 13:10-0500 Diastolic blood pressure 64 mm[Hg] Russell Rodriguez MD Work Phone: [facility] 09-24-2024 13:10-0500 Heart rate 69 /min Russell Rodriguez MD Work Phone: [facility] 09-24-2024 13:10-0500 Respiratory rate 18 /min Russell Rodriguez MD Work Phone: [facility] 09-24-2024 13:10-0500 SaO2% (BldA) [Mass fraction] 97 % Russell Rodriguez MD Work Phone: [facility] 09-24-2024 13:10-0500 Systolic blood pressure 118 mm[Hg] Russell Rodriguez MD Work Phone: [facility] 07-28-2024 10:50-0400 Body mass index (BMI) [Ratio] 21.36 kg/m2 Linda Shira BINDERY SUPERVISOR.LEAD ATG DEVELOPER Work Phone: [facility] 07-28-2024 10:50-0400 Body weight 49.6 kg Linda Shira BINDERY SUPERVISOR.LEAD ATG DEVELOPER Work Phone: [facility] 07-28-2024 10:50-0400 Diastolic blood pressure 76 mm[Hg] Linda Shira BINDERY SUPERVISOR.LEAD ATG DEVELOPER Work Phone: [facility] 07-28-2024 10:50-0400 Heart rate 75 /min Linda Shira BINDERY SUPERVISOR.LEAD ATG DEVELOPER Work Phone: [facility] 07-28-2024 10:50-0400 SaO2% (BldA) [Mass fraction] 95 % Linda Shira BINDERY SUPERVISOR.LEAD ATG DEVELOPER Work Phone: [facility] 07-28-2024 10:50-0400 Systolic blood pressure 128 mm[Hg] Linda Shira BINDERY SUPERVISOR.LEAD ATG DEVELOPER Work Phone: [facility] 07-06-2024 10:24-0400 Diastolic blood pressure 74 mm[Hg] Luis Manuel Hernandez BINDERY SUPERVISOR.WAREHOUSE SUPERVISOR Work Phone: [facility] 07-06-2024 10:24-0400 Systolic blood pressure 133 mm[Hg] Luis Manuel Hernandez BINDERY SUPERVISOR.WAREHOUSE SUPERVISOR Work Phone: [facility] 07-06-2024 10:23-0400 Body mass index (BMI) [Ratio] 21.36 kg/m2 Luis Manuel Hernandez BINDERY SUPERVISOR.WAREHOUSE SUPERVISOR Work Phone: [facility] 07-06-2024 10:23-0400 Body weight 49.6 kg Luis Manuel Hernandez BINDERY SUPERVISOR.WAREHOUSE SUPERVISOR Work Phone: [facility] 07-06-2024 10:23-0400 Heart rate 71 /min Luis Manuel Hernandez BINDERY SUPERVISOR.WAREHOUSE SUPERVISOR Work Phone: [facility] 07-06-2024 10:23-0400 Respiratory rate 16 /min Luis Manuel Hernandez BINDERY SUPERVISOR.WAREHOUSE SUPERVISOR Work Phone: [facility] 07-06-2024 10:23-0400 SaO2% (BldA) [Mass fraction] 97 % Luis Manuel Hernandez BINDERY SUPERVISOR.WAREHOUSE SUPERVISOR Work Phone: [facility] 05-18-2024 09:59-0400 Body mass index (BMI) [Ratio] 21.53 kg/m2 Bg Chavarria MD Work Phone: [facility] 05-18-2024 09:59-0400 Body temperature 97.39 [degF] Bg Chavarria MD Work Phone: [facility] 05-18-2024 09:59-0400 Body weight 50 kg Bg Chavarria MD Work Phone: [facility] 05-18-2024 09:59-0400 Diastolic blood pressure 68 mm[Hg] Bg Chavarria MD Work Phone: [facility] 05-18-2024 09:59-0400 Heart rate 79 /min Bg Chavarria MD Work Phone: [facility] 05-18-2024 09:59-0400 Respiratory rate 16 /min Bg Chavarria MD Work Phone: [facility] 05-18-2024 09:59-0400 SaO2% (BldA) [Mass fraction] 97 % Bg Chavarria MD Work Phone: [facility] 05-18-2024 09:59-0400 Systolic blood pressure 134 mm[Hg] Bg Chavarria MD Work Phone: [facility] 03-31-2024 08:47-0400 Body mass index (BMI) [Ratio] 21.27 kg/m2 Bg Chavarria MD Work Phone: [facility] 03-31-2024 08:47-0400 Body temperature 96.8 [degF] Bg Chavarria MD Work Phone: [facility] 03-31-2024 08:47-0400 Body weight 49.4 kg Bg Chavarria MD Work Phone: [facility] 03-31-2024 08:47-0400 Diastolic blood pressure 80 mm[Hg] Bg Chavarria MD Work Phone: [facility] 03-31-2024 08:47-0400 Heart rate 87 /min Bg Chavarria MD Work Phone: [facility] 03-31-2024 08:47-0400 Respiratory rate 18 /min Bg Chavarria MD Work Phone: [facility] 03-31-2024 08:47-0400 SaO2% (BldA) [Mass fraction] 97 % Bg Chavarria MD Work Phone: [facility] 03-31-2024 08:47-0400 Systolic blood pressure 144 mm[Hg] Bg Chavarria MD Work Phone: [facility] 03-24-2024 14:47-0400 Body mass index (BMI) [Ratio] 21.48 kg/m2 Linda Silva APRN.CNP Work Phone: [facility] 03-24-2024 14:47-0400 Body weight 49.9 kg Linda Shira BINDERY SUPERVISOR.LEAD ATG DEVELOPER Work Phone: [facility] 03-24-2024 14:47-0400 Diastolic blood pressure 70 mm[Hg] Linda Shira BINDERY SUPERVISOR.LEAD ATG DEVELOPER Work Phone: [facility] 03-24-2024 14:47-0400 Heart rate 82 /min Linda Shira BINDERY SUPERVISOR.LEAD ATG DEVELOPER Work Phone: [facility] 03-24-2024 14:47-0400 SaO2% (BldA) [Mass fraction] 97 % Linda Shira BINDERY SUPERVISOR.LEAD ATG DEVELOPER Work Phone: [facility] 03-24-2024 14:47-0400 Systolic blood pressure 110 mm[Hg] Linda Shira BINDERY SUPERVISOR.LEAD ATG DEVELOPER Work Phone: [facility] 11-18-2023 09:46-0500 Body height 152.4 cm Bg Chavarria MD Work Phone: [facility] 11-18-2023 09:46-0500 Body weight 50.26 kg Bg Chavarria MD Work Phone: [facility] 11-18-2023 09:46-0500 Diastolic blood pressure 74 mm[Hg] Bg Chavarria MD Work Phone: [facility] 11-18-2023 09:46-0500 Heart rate 78 /min Bg Chavarria MD Work Phone: [facility] 11-18-2023 09:46-0500 Respiratory rate 16 /min Bg Chavarria MD Work Phone: [facility] 11-18-2023 09:46-0500 Systolic blood pressure 112 mm[Hg] Bg Chavarria MD Work Phone: [facility] 07-15-2023 10:51-0400 Body weight 52.62 kg Luis Manuel Hernandez BINDERY SUPERVISOR.WAREHOUSE SUPERVISOR Work Phone: [facility] 07-15-2023 10:51-0400 Diastolic blood pressure 78 mm[Hg] Luis Manuel Hernandez BINDERY SUPERVISOR.WAREHOUSE SUPERVISOR Work Phone: [facility] 07-15-2023 10:51-0400 Heart rate 91 /min Luis Manuel Hernandez BINDERY SUPERVISOR.WAREHOUSE SUPERVISOR Work Phone: [facility] 07-15-2023 10:51-0400 Respiratory rate 16 /min Luis Manuel Hernandez BINDERY SUPERVISOR.WAREHOUSE SUPERVISOR Work Phone: [facility] 07-15-2023 10:51-0400 Systolic blood pressure 123 mm[Hg] Luis Manuel Hernandez BINDERY SUPERVISOR.WAREHOUSE SUPERVISOR Work Phone: [facility] 06-20-2023 11:58-0400 Body temperature 97.39 [degF] Yarelis Cayden BINDERY SUPERVISOR.LEAD ATG DEVELOPER Work Phone: [facility] 06-20-2023 11:58-0400 Body weight 52.16 kg Yarelis Cayden BINDERY SUPERVISOR.LEAD ATG DEVELOPER Work Phone: [facility] 06-20-2023 11:58-0400 Diastolic blood pressure 70 mm[Hg] Yarelis Cayden BINDERY SUPERVISOR.LEAD ATG DEVELOPER Work Phone: [facility] 06-20-2023 11:58-0400 Heart rate 84 /min Yarelis Cayden BINDERY SUPERVISOR.LEAD ATG DEVELOPER Work Phone: [facility] 06-20-2023 11:58-0400 Respiratory rate 18 /min Yarelis Cayden BINDERY SUPERVISOR.LEAD ATG DEVELOPER Work Phone: [facility] 06-20-2023 11:58-0400 SaO2% (BldA) [Mass fraction] 97 % Yarelis Cayden BINDERY SUPERVISOR.LEAD ATG DEVELOPER Work Phone: [facility] 06-20-2023 11:58-0400 Systolic blood pressure 148 mm[Hg] Yarelis Cayden BINDERY SUPERVISOR.LEAD ATG DEVELOPER Work Phone: [facility] 05-03-2023 09:49-0400 Diastolic blood pressure 68 mm[Hg] Linda Shira BINDERY SUPERVISOR.LEAD ATG DEVELOPER Work Phone: [facility] 05-03-2023 09:49-0400 Heart rate 77 /min Linda Shira BINDERY SUPERVISOR.LEAD ATG DEVELOPER Work Phone: [facility] 05-03-2023 09:49-0400 Respiratory rate 16 /min Linda Shira BINDERY SUPERVISOR.LEAD ATG DEVELOPER Work Phone: [facility] 05-03-2023 09:49-0400 SaO2% (BldA) [Mass fraction] 98 % Linda Shira BINDERY SUPERVISOR.LEAD ATG DEVELOPER Work Phone: [facility] 05-03-2023 09:49-0400 Systolic blood pressure 122 mm[Hg] Linda Shira BINDERY SUPERVISOR.LEAD ATG DEVELOPER Work Phone: [facility] 03-15-2023 11:14-0400 Body temperature 97.39 [degF] Bg Chavarria MD Work Phone: [facility] 03-15-2023 11:14-0400 Body weight 51.26 kg Bg Chavarria MD Work Phone: [facility] 03-15-2023 11:14-0400 Diastolic blood pressure 62 mm[Hg] Bg Chavarria MD Work Phone: [facility] 03-15-2023 11:14-0400 Heart rate 75 /min Bg Chavarria MD Work Phone: [facility] 03-15-2023 11:14-0400 Respiratory rate 18 /min Bg Chavarria MD Work Phone: [facility] 03-15-2023 11:14-0400 SaO2% (BldA) [Mass fraction] 98 % Bg Chavarria MD Work Phone: [facility] 03-15-2023 11:14-0400 Systolic blood pressure 112 mm[Hg] Bg Chavarria MD Work Phone: [facility] 02-04-2023 14:59-0400 Body weight 53.52 kg Luis Manuel Hernandez BINDERY SUPERVISOR.WAREHOUSE SUPERVISOR Work Phone: [facility] 02-04-2023 14:59-0400 Diastolic blood pressure 64 mm[Hg] Luis Manuel Hernandez BINDERY SUPERVISOR.WAREHOUSE SUPERVISOR Work Phone: [facility] 02-04-2023 14:59-0400 Heart rate 84 /min Luis Manuel Hernandez BINDERY SUPERVISOR.WAREHOUSE SUPERVISOR Work Phone: [facility] 02-04-2023 14:59-0400 Respiratory rate 16 /min Luis Manuel Hernandez BINDERY SUPERVISOR.WAREHOUSE SUPERVISOR Work Phone: [facility] 02-04-2023 14:59-0400 Systolic blood pressure 114 mm[Hg] Luis Manuel Hernandez BINDERY SUPERVISOR.WAREHOUSE SUPERVISOR Work Phone: [facility] 09-14-2022 11:18-0500 Body weight 52.62 kg Linda Shira BINDERY SUPERVISOR.LEAD ATG DEVELOPER Work Phone: [facility] 09-14-2022 11:18-0500 Diastolic blood pressure 60 mm[Hg] Linda Shira BINDERY SUPERVISOR.LEAD ATG DEVELOPER Work Phone: [facility] 09-14-2022 11:18-0500 Heart rate 87 /min Linda Shira BINDERY SUPERVISOR.LEAD ATG DEVELOPER Work Phone: [facility] 09-14-2022 11:18-0500 Respiratory rate 16 /min Linda Shira BINDERY SUPERVISOR.LEAD ATG DEVELOPER Work Phone: [facility] 09-14-2022 11:18-0500 SaO2% (BldA) [Mass fraction] 96 % Linda Shira BINDERY SUPERVISOR.LEAD ATG DEVELOPER Work Phone: [facility] 09-14-2022 11:18-0500 Systolic blood pressure 100 mm[Hg] Linda Shira BINDERY SUPERVISOR.LEAD ATG DEVELOPER Work Phone: [facility] 06-28-2022 11:10-0400 Body weight 51.26 kg Luis Manuel Hernandez BINDERY SUPERVISOR.WAREHOUSE SUPERVISOR Work Phone: [facility] 06-28-2022 11:10-0400 Diastolic blood pressure 62 mm[Hg] Lui Smanuel Hernandez BINDERY SUPERVISOR.WAREHOUSE SUPERVISOR Work Phone: [facility] 06-28-2022 11:10-0400 Heart rate 74 /min Luis Manuel Hernandez BINDERY SUPERVISOR.WAREHOUSE SUPERVISOR Work Phone: [facility] 06-28-2022 11:10-0400 Respiratory rate 16 /min Luis Manuel Hernandez BINDERY SUPERVISOR.WAREHOUSE SUPERVISOR Work Phone: [facility] 06-28-2022 11:10-0400 SaO2% (BldA) [Mass fraction] 97 % Luis Manuel Hernandez BINDERY SUPERVISOR.WAREHOUSE SUPERVISOR Work Phone: [facility] 06-28-2022 11:10-0400 Systolic blood pressure 120 mm[Hg] Luis Manuel Hernandez BINDERY SUPERVISOR.WAREHOUSE SUPERVISOR Work Phone: [facility] 05-04-2022 08:22-0400 Diastolic blood pressure 60 mm[Hg] Nuha Saab MD Work Phone: [facility] 05-04-2022 08:22-0400 Heart rate 74 /min Nuha Saab MD Work Phone: [facility] 05-04-2022 08:22-0400 Respiratory rate 16 /min Nuha Saab MD Work Phone: [facility] 05-04-2022 08:22-0400 SaO2% (BldA) [Mass fraction] 97 % Nuha Saab MD Work Phone: [facility] 05-04-2022 08:22-0400 Systolic blood pressure 109 mm[Hg] Nuha Saab MD Work Phone: [facility] 03-05-2022 13:18-0400 Body height 149.9 cm Nuha Saab MD Work Phone: [facility] 03-05-2022 13:18-0400 Body temperature 98.29 [degF] Nuha Saab MD Work Phone: [facility] 03-05-2022 13:18-0400 Body weight 50.35 kg Nuha Saab MD Work Phone: [facility] 03-05-2022 13:18-0400 Diastolic blood pressure 70 mm[Hg] Nuha Saab MD Work Phone: [facility] 03-05-2022 13:18-0400 Heart rate 74 /min Nuha Saab MD Work Phone: [facility] 03-05-2022 13:18-0400 SaO2% (BldA) [Mass fraction] 96 % Nuha Saab MD Work Phone: [facility] 03-05-2022 13:18-0400 Systolic blood pressure 128 mm[Hg] Nuha Saab MD Work Phone: [facility] 03-02-2022 13:30-0400 Diastolic blood pressure 66 mm[Hg] Anibal Lake MD Work Phone: [facility] 03-02-2022 13:30-0400 Respiratory rate 16 /min Anibal Lake MD Work Phone: [facility] 03-02-2022 13:30-0400 SaO2% (BldA) [Mass fraction] 96 % Anibal Lake MD Work Phone: [facility] 03-02-2022 13:30-0400 Systolic blood pressure 138 mm[Hg] Anibal Lake MD Work Phone: [facility] 03-02-2022 13:20-0400 Heart rate 64 /min Anibal Lake MD Work Phone: [facility] 03-02-2022 12:04-0400 Body temperature 98.1 [degF] Anibal Lake MD Work Phone: [facility] 03-02-2022 11:56-0400 Body height 149.9 cm Anibal Lake MD Work Phone: [facility] 03-02-2022 11:56-0400 Body weight 46.72 kg Anibal Lake MD Work Phone: [facility] 02-27-2022 17:51-0400 Body weight 46.72 kg Bg Chavarria MD Work Phone: [facility] 02-27-2022 17:51-0400 Diastolic blood pressure 68 mm[Hg] Bg Chavarria MD Work Phone: [facility] 02-27-2022 17:51-0400 Heart rate 72 /min Bg Chavarria MD Work Phone: [facility] 02-27-2022 17:51-0400 SaO2% (BldA) [Mass fraction] 96 % Bg Chavarria MD Work Phone: [facility] 02-27-2022 17:51-0400 Systolic blood pressure 114 mm[Hg] Bg Chavarria MD Work Phone: [facility] Encounters Encounter Date Encounter Type Care Provider Facility Start: 05-25-2025 End: 05-28-2025 Telephone encounter Bg Chavarria MD Work Phone: [facility] Comment on above: Patient Update Start: 05-22-2025 End: 05-22-2025 Emergency department patient visit Dr. Bg Chavarria MD Work Phone: -Emergency Department Work Phone: Start: 05-07-2025 End: 05-10-2025 Follow-up encounter Oxana Darling APRN.CNP Work Phone: [facility] Comment on above: Results Start: 04-29-2025 End: 04-29-2025 Telephone encounter Bg Chavarria MD Work Phone: [facility] [place] Comment on above: Forms (Pre op form f rom Dr. Haile) Start: 04-20-2025 End: 04-20-2025 Patient encounter procedure Rekha Rojas NP-[facility] Work Phone: Start: 04-20-2025 End: 04-20-[address] Bg Chavarria MD Work Phone: -[facility] Start: 03-19-2025 End: 03-19-2025 Office outpatient visit 25 minutes Bg Chavarria MD Work Phone: [facility] [place] Comment on above: Type 2 diabetes jessenia itus with other specified complication, without long-term current use of insulin (HCC) (Primary Dx); Paroxysmal SVT (supraventricular tachycardia) (HCC); Status post hip replacement, right; Status post left hip replacement; Chronic bilateral low back pain without sciatica; Other idiopathic scoliosis, thoracolumbar region Start: 03-19-2025 End: 03-19-2025 ambulatory BG CAHVARRIA Facility:[facility] Start: 03-18-2025 ambulatory BG LAUKATE Facilit y:[facility] Start: 03-18-2025 End: 03-18-2025 Subsequent hospital visit by physician Bone D[facility] Work Phone: Radiology Comment on above: Asymptomatic postmen opausal status [Z78.0] Start: 03-15-2025 End: 03-15-2025 Refill Josue Fagan APRN.LEAD ATG DEVELOPER Work Phone: [facility] [place] Comment on above: Refill Request Start: 02-25-2025 End: 02-25-2025 Patient encounter procedure Madeleine Jung APRN.LEAD ATG DEVELOPER Work Phone: [facility] Comment on above: Skin erythema (Prima ry Dx); Insect bite of right thigh, initial encounter Start: 02-25-2025 End: 02-25-2025 ambulatory BG CHAVARRIA Facility:[facility] Start: 02-15-2025 End: 02-15-2025 Patient encounter procedure Oxana Darling APRN.LEAD ATG DEVELOPER Work Phone: [facility] Cardiology [place] Comment on above: Paroxysmal SVT (supr aventricular tachycardia) (HCC) (Primary Dx); Typical atrial flutter (HCC); S/P catheter ablation of slow pathway; S/P ablation of atrial flutter; At risk for stroke Start: 02-15-2025 End: 02-15-2025 ambulatory OXANA DARLING Facility:[facility] Start: 02-10-2025 End: 02-15-2025 Telephone encounter Bg Chavarria MD Work Phone: [facility] [place] Comment on above: Mic Dental-Form Start: 02-01-2025 End: 02-01-2025 Telephone encounter Josue Fagan APRN.LEAD ATG DEVELOPER Work Phone: [facility] Cardiology [place] Comment on above: Results Start: 01-01-2025 End: 03-24-2025 Telephone encounter Josue Fagan APRN.LEAD ATG DEVELOPER Work Phone: [facility] Cardiology [place] Comment on above: Results Start: 12-18-2024 End: 12-18-2024 ambulatory BG D TALAMPAS Facility:[facility] Start: 12-18-2024 End: 12-18-2024 Nursing evaluation of patient and report Mi Nurse Work Phone: [facility] [place] Comment on above: Encounter for reji rodriguez Start: 12-01-2024 ambulatory JOSUE FAGAN Facility:[facility] Start: 12-01-2024 End: 12-01-2024 Subsequent hospital visit by physician Card Lab Stress [facility] Comment on above: Paroxysmal SVT (supr aventricular tachycardia) ([facility]) [I47.10] Start: 11-20-2024 End: 11-20-2024 ambulatory BG D ODALYSAMPKATE Facility:[facility] Start: 11-20-2024 End: 11-20-2024 Office outpatient visit [...] status Start: 11-02-2024 End: 11-02-2024 ambulatory BG D TALAMPAS Facility:[facility] Start: 11-02-2024 End: 11-02-2024 Office outpatient visit 25 minutes Luis Manuel Hernandez APRN.CNS Work Phone: [facility] [place] Comment on above: Postural dizziness w ith presyncope (Primary Dx); S/P catheter ablation of slow pathway; Typical atrial flutter (HCC) Start: 10-30-2024 End: 10-30-2024 Telephone encounter Josue Fagan APRN.CNP Work Phone: [facility] Comment on above: Appointment; Orders Start: 10-26-2024 End: 10-27-2024 ambulatory BG D TALAMPAS Facility:[facility] Start: 10-20-2024 End: 10-20-2024 ambulatory Bg D Talampas Facility:[facility] Start: 10-15-2024 End: 10-15-2024 Telephone encounter Russell Rodriguez MD Work Phone: [facility] Comment on above: Preparations For Pro cedures Start: 09-24-2024 End: 09-24-2024 Patient encounter procedure Russell Rodriguez MD Work Phone: [facility] Comment on above: Paroxysmal SVT (supr aventricular tachycardia) (HCC) (Primary Dx); Multiple sclerosis (HCC); Former smoker; Postural dizziness with presyncope Start: 09-24-2024 End: 09-24-2024 ambulatory BG D [facility] Facility:[facility] Start: 09-11-2024 End: 09-16-2024 Refill Linda Silva BINDERY SUPERVISOR.LEAD ATG DEVELOPER Work Phone: Orthopaedics Comment on above: Refill Request Start: 09-08-2024 ambulatory [facility] Is[facility] Facility:[facility] Start: 09-08-2024 End: 09-08-2024 [facility] Start: 09-02-2024 End: 09-08-2024 Refill Luis Manuel Hernandez BINDERY SUPERVISOR.WAREHOUSE SUPERVISOR Work Phone: [facility] Comment on above: Refill Request ([facility] managed refill) Start: 08-13-2024 End: 08-13-2024 ambulatory Bg D Talampas [facility] Start: 07-30-2024 End: 07-30-2024 Telephone encounter Luis Manuel Hernandez APRN.WAREHOUSE SUPERVISOR Work Phone: [facility] [place] Comment on above: Results Start: 07-28-2024 End: 07-28-2024 ambulatory LINDA CARROLLR Facility:[facility] Start: 07-28-2024 End: 07-28-2024 Patient encounter procedure Linda Silva BINDERY SUPERVISOR.LEAD ATG DEVELOPER Work Phone: [facility] [place] Comment on above: Paroxysmal SVT (supr aventricular tachycardia) (HCC) (Primary Dx); Postural dizziness with presyncope; Type 2 diabetes mellitus with other specified complication, without long-term current use of insulin (HCC); Primary osteoarthritis of both hips; Screening for depression; Encounter for screening examination for other mental health and behavioral disorders Start: 07-27-2024 End: 07-30-2024 Telephone encounter Danielle Bustamante MD Work Phone: [facility] [place] Comment on above: Results Start: 07-23-2024 End: 07-23-2024 ambulatory BG CHAVARRIA Facility:[facility] Start: 07-13-2024 End: 07-13-2024 Office outpatient visit 10 minutes Sincere Hopkins MD Work Phone: Orthopaedics Comment on above: Status post hip repl acement, right (Primary Dx) Start: 07-13-2024 End: 07-13-2024 [facility] Start: 07-13-2024 End: 07-13-2024 Subsequent hospital visit by physician Radio [place] Work Phone: Radiology Comment on above: Status post hip repl acement, right [Z96.641] Start: 07-06-2024 End: 07-06-2024 ambulatory BG CHAVARRIA Facility:[facility] Start: 07-06-2024 End: 07-06-2024 Office outpatient visit 25 minutes Luis Manuel Hernandez APRN.CNS Work Phone: [facility] [place] Comment on above: Postural dizziness w ith presyncope (Primary Dx); SOB (shortness of breath); Throat tightness; Former smoker; Abnormal EKG; Type 2 diabetes mellitus with other specified complication, without long-term current use of insulin (HCC); Elevated LDL cholesterol level; Abnormal finding of blood chemistry, unspecified Start: 07-06-2024 End: 07-06-2024 ambulatory BG CHAVARRIA Facility:[facility] Start: 07-03-2024 End: 07-03-2024 Orders Only Sincere Hopkins MD Work Phone: Orthopaedics Comment on above: Status post hip repl acement, right (Primary Dx) Start: 06-13-2024 End: 07-03-2024 jay Chavarria MD Work Phone: [facility] [place] Comment on above: Episodes of dropping blood pressure and rapid heart rate Start: 06-02-2024 End: 06-02-2024 Emergency department patient visit Bg Chavarria Facility:[facility] Start: 05-18-2024 End: 05-18-2024 ambulatory SELF Facility:[facility] Start: 05-18-2024 End: 05-18-2024 Office outpatient visit 25 minutes Bg Chavarria MD Work Phone: [facility] [place] Comment on above: Near syncope (Primar y Dx); Episodic lightheadedness Start: 05-09-2024 ambulatory Bg burris MD Work Phone: [facility] [place] Comment on above: Recent near fainting spell with chest discomfort Start: 05-07-2024 End: 05-07-2024 Patient encounter procedure Lorena Jacobsen MD Work Phone: Orthopaedics Comment on above: Status post total re placement of left hip (Primary Dx); Status post hip replacement, right; Fall, initial encounter Start: 05-07-2024 End: 05-07-2024 ambulatory LORENA JACOBSEN Facility:[facility] Start: 05-07-2024 End: 05-07-2024 Subsequent hospital visit by physician [facility] Work Phone: Radiology Comment on above: Pain in left hip [M2 5.552] Start: 05-01-2024 End: 05-01-2024 Patient encounter procedure Joe Jiang PA-C Work Phone: Orthopaedics Comment on above: Primary osteoarthrit is of left knee (Primary Dx); Prepatellar effusion of left knee Start: 04-28-2024 Orders Only Joe castillo PA-C Work Phone: [facility] Comment on above: Pain (Primary Dx) Start: 04-22-2024 ambulatory Bg burris MD Work Phone: [facility] [place] Comment on above: Left knee post fall Start: 04-09-2024 Orders Only Lorena Green Work Phone: [facility] Comment on above: Pain (Primary Dx) Start: 03-31-2024 End: 03-31-2024 Subsequent hospital visit by physician Jasmyn [facility] Work Phone: Radiology Comment on above: Acute pain of left k nee [M25.562] Start: 03-31-2024 End: 03-31-2024 Office outpatient visit 10 minutes Bg Chavarria MD Work Phone: [facility] [place] Comment on above: Acute pain of left k nee (Primary Dx); Contusion of left knee, initial encounter; Strain of left quadriceps, initial encounter; Type 2 diabetes mellitus with other specified complication, without long-term current use of insulin (HCC) Start: 03-30-2024 ambulatory Bg burris MD Work Phone: [facility] [place] Comment on above: Recent fall Start: 03-24-2024 End: 03-24-2024 Patient encounter procedure Linda Silva APRN.LEAD ATG DEVELOPER Work Phone: [facility] [place] Comment on above: Type 2 diabetes jessenia itus without complication, without long- term current use of insulin (HCC) (Primary Dx); Vitamin D deficiency; Primary osteoarthritis of both hips; Chronic midline low back pain without sciatica; Elevated LDL cholesterol level Start: 03-12-2024 Refill Linda BANKSN.LEAD ATG DEVELOPER Work Phone: Orthopaedics Comment on above: Refill Request Start: 01-30-2024 End: 01-30-2024 ambulatory Luis Manuel Hernandez APRN.WAREHOUSE SUPERVISOR Work Phone: [facility] [place] Comment on above: COVID-19 virus infec tion (Primary Dx) Start: 01-30-2024 End: 01-30-2024 Telemedicine consultation with patient Luis Manuel David BURT.WAREHOUSE SUPERVISOR Work Phone: [facility] [place] Start: 01-29-2024 Telephone encounter Linda coon APRN.LEAD ATG DEVELOPER Work Phone: [facility] [place] Comment on above: Covid Positive Start: 12-16-2023 Refill Luis Manuel Gunter PRN.WAREHOUSE SUPERVISOR Work Phone: [facility] [place] Comment on above: Refill Request ([facility] Managed Refill) Start: 11-18-2023 End: 11-18-2023 Office [...] Phone: [facility] [place] Comment on above: Labs Start: 10-16-2023 ambulatory BG CHAVARRIA [facility] y:[facility] Start: 10-16-2023 End: 10-16-2023 Subsequent hospital visit by physician Radio [place] [facility] Work Phone: Radiology Comment on above: Status post hip repl acement, right [Z96.641] Start: 09-19-2023 End: 09-19-2023 ambulatory Fabian Haq [employer]IDE [employer] Work Phone: [facility] Comment on above: Status post hip repl acement, right (Primary Dx); Weakness of both hips Start: 09-10-2023 End: 09-10-2023 ambulatory Yana Almaraz PT Work Phone: [facility] Comment on above: Status post hip repl acement, right (Primary Dx); Weakness of both hips; Abnormality of gait Start: 08-19-2023 End: 08-19-2023 ambulatory Melita Castañeda PT, DPT [facility] Comment on above: Status post hip repl acement, right (Primary Dx); Abnormality of gait; Trochanteric bursitis of right hip Start: 2023 End: 2023 ambulatory Melita Castañeda PT, DPT [facility] Comment on above: Status post hip repl acement, right (Primary Dx); Abnormality of gait Start: 08-12-2023 End: 08-12-2023 ambulatory Melita Castañeda PT, DPT [facility] Comment on above: Status post [...] outpatient visit 25 minutes Luis Manuel Hernandez APRN.WAREHOUSE SUPERVISOR Work Phone: [facility] [place] Comment on above: Encounter for immuni zation (Primary Dx); Status post right hip replacement; [...] [Z96.641] Start: 06-29-2023 Telephone encounter Geoffrey Fenton [facility] Comment on above: Home Care (Confirmat ion Call ) Start: 06-25-2023 ambulatory Sincere Hopkins MD Work Phone: Orthopaedics Comment on above: Upcoming MERLE Start: 06-20-2023 End: 06-20-2023 Patient encounter procedure Yarelis Taylork BINDERY SUPERVISOR.LEAD ATG DEVELOPER Work Phone: [facility] Comment on above: Sore throat [...] encounter status Joe Jiang PA-C Work Phone: [facility] Work Phone: Start: 05-29-2023 Telephone encounter Sincere Hopkins MD Work Phone: [facility] Comment on above: Osteonecrosis of rig ht hip (HCC) (Primary Dx) Start: 05-21-2023 ambulatory Fredy Carrasco BINDERY SUPERVISOR.LEAD ATG DEVELOPER Work Phone: [facility] Start: 05-21-2023 Patient encounter procedure Fredy Carrasco BINDERY SUPERVISOR.LEAD ATG DEVELOPER Work Phone: Orthopaedics Comment on above: Upcoming appointment for Sx Appointment on Start: 05-21-2023 Preprocedural examin ation done Fredy Carrasco BINDERY SUPERVISOR.LEAD ATG DEVELOPER Work Phone: [facility] Work Phone: Start: 05-21-2023 Telephone encounter Fredy stone BINDERY SUPERVISOR.LEAD ATG DEVELOPER Work Phone: Orthopaedics Comment on above: Patient Update Start: 05-16-2023 End: 05-16-2023 Patient encounter procedure Fredy Carrasco BINDERY SUPERVISOR.LEAD ATG DEVELOPER Work Phone: Orthopaedics Comment on above: Osteonecrosis of rig ht hip (HCC) (Primary Dx) Start: 05-15-2023 Refill Luis Manuel MARTIN Work Phone: [facility] Comment on above: Refill Request ([facility] Managed Refill) Start: 05-06-2023 Telephone encounter Fredy Steffen stone APRN.LEAD ATG DEVELOPER Work Phone: Orthopaedics Comment on above: Patient Question; Pa tient Update Results Start: 05-03-2023 End: 05-03-2023 Subsequent hospital visit by physician Danielle Loja MD Work Phone: Radiology Comment on above: Trochanteric bursiti s of right hip [M70.61] Start: 05-03-2023 End: 05-03-2023 Patient encounter murtaza Linda Silva APRN.LEAD ATG DEVELOPER Work Phone: [facility] [place] Comment on above: Trochanteric bursiti s of right hip (Primary Dx); Pain of right hip; Fall, initial encounter Start: 05-02-2023 Telephone encounter Bg fong MD Work Phone: [facility] [place] Comment on above: Medication Request Patient Question; Pa tient Update Start: 05-01-2023 Telephone encounter Lorena sigala MD Work Phone: Orthopaedics Comment on above: Patient Question Start: 04-24-2023 Telephone encounter Lorena sigala MD Work Phone: [facility] Comment on above: Patient Question Patient Update Start: 04-22-2023 End: 04-22-2023 ambulatory Zhen Powell PT Work Phone: [facility] Comment on above: Trochanteric bursiti s of right hip (Primary Dx) Start: 04-08-2023 End: 04-08-2023 ambulatory Zhen Powell PT Work Phone: [facility] Comment on above: Trochanteric bursiti s of right hip (Primary Dx) Start: 04-01-2023 End: 04-01-2023 ambulatory Zhen Powell PT Work Phone: [facility] Comment on above: Trochanteric bursiti s of right hip (Primary Dx) Start: 03-25-2023 End: 03-25-2023 ambulatory Zhen Powell PT Work Phone: [facility] Comment on above: Trochanteric bursiti s of right hip (Primary Dx) Start: 03-20-2023 End: 03-20-2023 Subsequent hospital visit by physician Rdaha Nation APRN.LEAD ATG DEVELOPER Work Phone: [facility] Comment on above: Primary osteoarthrit is of right hip [M16.11] Start: 03-19-2023 End: 03-19-2023 ambulatory Zhen Powell PT Work Phone: [facility] Comment on above: Trochanteric bursiti s of right hip (Primary Dx) Start: 03-15-2023 End: 03-15-2023 Office outpatient visit 25 minutes Bg Chavarria MD Work Phone: [facility] [place] Comment on above: Type 2 diabetes jessenia itus with other specified complication, without long-term current use of insulin ([facility]) (Primary Dx); Vitamin D deficiency; Encounter for long-term current use of medication; Elevated LDL cholesterol level; Status post total replacement of left hip; Leg lesion, left; Gastroesophageal reflux disease, unspecified whether esophagitis present Start: 03-01-2023 End: 03-01-2023 ambulatory Zhen Powell PT Work Phone: [facility] Comment on above: Trochanteric bursiti s of right hip (Primary Dx) Start: 02-07-2023 ambulatory Lorena Green Work Phone: Orthopaedics Comment on above: Injection Start: 02-07-2023 End: 02-07-2023 Subsequent hospital visit by physician [facility] Work Phone: Radiology Comment on above: Pain in right hip [M 25.551] Start: 02-04-2023 End: 02-04-2023 Office outpatient visit 25 minutes Luis Manuel Hernandez APRN.WAREHOUSE SUPERVISOR Work Phone: [facility] Medicine [place] Comment on above: Chronic pain of righ t hip (Primary Dx); S/P total left hip arthroplasty; Multiple sclerosis (HCC) Start: 02-01-2023 ambulatory Bg burris MD Work Phone: [facility] [place] Comment on above: Right groin pain Start: 12-20-2022 Refill Bg burris MD Work Phone: Orthopaedics Comment on above: Refill Request Start: 12-17-2022 Refill Luis Manuel Gunter PRN.WAREHOUSE SUPERVISOR Work Phone: [facility] [place] Comment on above: Refill Request Start: 11-19-2022 Refill Luis Manuel Gunter PRN.WAREHOUSE SUPERVISOR Work Phone: [facility] [place] Comment on above: Refill Request Start: 11-07-2022 Telephone encounter Kori dominguez [facility] [place] Comment on above: Orders Start: 09-14-2022 End: 09-14-2022 Subsequent hospital visit by physician Xr [facility] [place] Work Phone: Radiology Comment on above: Bursitis of other bu rsa of right hip [M70.71] Start: 09-14-2022 End: 09-14-2022 Patient encounter procedure Linda Silva BINDERY SUPERVISOR.LEAD ATG DEVELOPER Work Phone: [facility] [place] Comment on above: Bursitis of other bu rsa of right hip (Primary Dx); Fall, sequela Start: 09-07-2022 End: 09-07-2022 Subsequent hospital visit by physician Xr [facility] [place] Work Phone: Radiology Comment on above: Acquired hammer toe [M20.40] Start: 08-13-2022 ambulatory Bg burris MD Work Phone: [facility] [place] Start: 08-13-2022 Patient encounter procedure Bg Chavarria MD Work Phone: [facility] [place] Comment on above: Request for Referral to [place] Start: 07-12-2022 Patient Update Salvatore Heard [facility] Comment on above: Medication Update (A mb refill: consent approved ) Start: 06-28-2022 End: 06-28-2022 Patient encounter procedure Luis Manuel Hernandez BINDERY SUPERVISOR.WAREHOUSE SUPERVISOR Work Phone: [facility] [place] Comment on above: Type 2 diabetes jessenia itus with other specified complication, without long-term current use of insulin (HCC) (Primary Dx); Low vitamin B12 level; Gastroesophageal reflux disease, unspecified whether esophagitis present; Vitamin D deficiency; Elevated LDL cholesterol level; Encounter for immunization Start: 05-31-2022 Refill Gregg Molina PA-C Work Phone: Orthopaedics Comment on above: Refill Request Start: 05-07-2022 Refill Jessica de leon PA-C Work Phone: Orthopaedics Comment on above: Refill Request Start: 05-04-2022 End: 05-04-2022 Subsequent hospital visit by physician Nuha Saab MD Work Phone: Ambulatory Surgery Comment on above: Rectal bleeding [K62 .5] Start: 04-30-2022 Refill Luis Manuel MARTIN Work Phone: [facility] Comment on above: Refill Request Start: 04-24-2022 ambulatory Nuha lucio MD Work Phone: General Surgery Comment on above: Colonoscopy Prep Start: 04-24-2022 E-mail encounter fro m caregiver Nuha Saab MD Work Phone: [facility] Start: 03-15-2022 End: 03-15-2022 ambulatory Angus Silveira MD Work Phone: [facility] [place] Comment on above: COVID-19 (Primary Dx ) Start: 03-15-2022 End: 03-15-2022 Telemedicine consultation with patient Angus Silveira MD Work Phone: [facility] [place] Start: 03-14-2022 Telephone encounter Bg fong MD Work Phone: [facility] [place] Comment on above: Patient Update (Home COVID test was positive, waiting for PCR test results); Medication Request Start: 03-06-2022 Documentation procedure Mammog sudarshan Coordinator [facility] Start: 03-06-2022 Letter encounter Mammography Coordinator [facility] Start: 03-06-2022 End: 03-06-2022 Subsequent hospital visit by physician Screen Mammo [facility] Comment on above: Breast cancer screen ing by mammogram [Z12.31] Start: 03-05-2022 End: 03-05-2022 Patient encounter procedure Nuha Saab MD Work Phone: General Surgery Comment on above: Rectal bleeding (Mary joce Dx); Colon cancer screening Start: 03-02-2022 End: 03-02-2022 Subsequent hospital visit by physician Anibal Lake MD Work Phone: [facility] Comment on above: Chronic midline low back pain without sciatica [M54.50, G89.29] Start: 02-27-2022 End: 02-27-2022 Office outpatient visit 25 minutes Bg Chavarria MD Work Phone: [facility] [place] Comment on above: Type 2 diabetes jessenia [...] ambulatory Bg burris MD Work Phone: [facility] [place] Start: 11-28-2021 Manual pelvic examination Bg Chavarria MD Work Phone: [facility] [place] Comment on above: internal pelvic exam and breast exam Start: 01-24-[address] Manuela Chavarria MD Work Phone: [facility] Procedures Date Procedure Procedure Detail Performing Clinician Start: 05-22-2025 Urnls dip stick/tabl et reagent auto microscopy Dr. Bg Chavarria MD Work Phone: Start: 05-22-[address] Bg Chavarria MD Work Phone: Start: 05-22-2025 Plain chest X-ray Dr. Manuela Chavarria MD Work Phone: Start: 02-15-2025 Ecg routine ecg w/le ast 12 lds w/i&r Oxana Darling BINDERY SUPERVISOR.LEAD ATG DEVELOPER Work Phone: Start: 12-18-2024 PFIZER-BIONTECH COVI D-19 VACCINE AGE 12+ YR (COMIRNATY) Bg Chavarria MD Work Phone: Start: 07-28-2024 Adult depression scr eening assessment Linda Silva BINDERY SUPERVISOR.LEAD ATG DEVELOPER Work Phone: Start: 07-06-2024 Ecg routine ecg w/le ast 12 lds i&r only Luis Manuel Hernandez BINDERY SUPERVISOR.WAREHOUSE SUPERVISOR Work Phone: Start: 05-07-2024 Radex hip unilateral with pelvis 2-3 views Fredy Carrasco BINDERY SUPERVISOR.LEAD ATG DEVELOPER Work Phone: Start: 03-31-2024 Radiologic exam knee complete 4/more views Bg Chavarria MD Work Phone: Start: 11-18-2023 Hemoglobin A1c/Hemoglobin.total in Blood Bg Chavarria MD Work Phone: Start: 10-16-2023 Radex hip unilateral with pelvis 2-3 views Sincere Hopkins MD Work Phone: Start: 07-15-2023 RSV VACCINE, BIVALEN T (ABRYSVO) Luis Manuel Traviss BINDERY SUPERVISOR.WAREHOUSE SUPERVISOR Work Phone: Start: 07-12-2023 Radex hip unilateral with pelvis 2-3 views Joe Jiang PA-C Work Phone: Start: 06-20-2023 Sars-cov-2 detection by dna/rna Yarelis Rodarte APRN.LEAD ATG DEVELOPER Work Phone: Start: 06-20-2023 STREP A MOLECULAR (POC) Yarelis Rodarte BINDERY SUPERVISOR.LEAD ATG DEVELOPER Work Phone: Start: 05-03-2023 Radex hip unilateral with pelvis 2-3 views Linda Silva BINDERY SUPERVISOR.LEAD ATG DEVELOPER Work Phone: Start: 03-20-2023 Arthrocentesis aspir &/inj major jt/bursa w/us Lorena Jacobsen MD Work Phone: Start: 02-07-2023 Radex hip unilateral with pelvis 2-3 views James Marcano PA-C Work Phone: Start: 09-14-2022 Radex hip unilateral with pelvis 2-3 views Linda Silva BINDERY SUPERVISOR.LEAD ATG DEVELOPER Work Phone: Start: 09-07-2022 Radex foot complete minimum 3 views Elton August Work Phone: Start: 06-28-2022 INFLUENZA SEASONAL QUADRIVALENT HIGH DOSE AGE 65+ Luis Manuel Traviss BINDERY SUPERVISOR.WAREHOUSE SUPERVISOR Work Phone: Start: 05-04-2022 Colonoscopy flx dx [...] Detail Author Start: 06-26-[address] [facility] Start: 03-18-2026 End: 03-18-2026 Patient encounter procedure 03/18/2026 9:40 AM EDT Office Visit [facility] [place] [address] [place], [place] [id number] Bg Chavarria MD [address] [place], [place] [phone] 4 month follow up [facility] [place] Comment on above: 4 month follow up Start: 03-15-2026 Hepatitis B screening Urine Albumin:Creatinine Ratio [facility] Start: 03-15-2026 Hepatitis B surface antibody level LDL Cholesterol [facility] Start: 02-01-2026 Glaucoma screening Dilated Retinal Exam [facility] Start: 11-22-2025 End: 11-22-2025 Patient encounter procedure 11/22/2025 9:40 AM EST Office Visit [facility] [place] [address] [place], [place] [id number] Bg Chavarria MD [address] [place], [place] [address] follow up 4 months [facility] [place] Comment on above: follow up 4 months Start: 09-14-2025 Hemoglobin A1c measurement HbA1C [facility] Start: 07-28-2025 Anxiety Screening Anxiety Screening [facility] Start: 07-28-2025 Depression Screening Depression Screening [facility] Start: 07-27-2025 End: 07-27-2025 Patient encounter procedure 07/27/2025 9:40 AM EDT Office Visit [facility] [place] [address] [place], [place] [id number] Bg Chavarria MD [address] [place], [place] [phone] 4 mo follow up [facility] [place] Comment on above: 4 mo follow up Start: 07-19-2025 End: 07-19-2025 ambulatory 07/19/2025 8:30 AM EDT Results Only [place] [facility] Draw Station [address] [place] [address] [place] [facility] Station Start: 07-06-2025 Diabetic foot examination Diabetic Foot Exam [facility] Start: 06-19-2025 End: 09-18-2025 Basic metabolic 2000 panel - Serum or Plasma BASIC METABOLIC PANEL Lab Routine Type 2 diabetes mellitus with other specified complication, without long-term current use of insulin (HCC) Expected: 06/19/2025 (Approximate), Expires: 09/18/2025 [facility] Work Phone: Comment on above: Expected: 06/19/2025 (Approximate), Expi res: 09/18/2025 Start: 06-19-2025 End: 09-18-2025 Hemoglobin A1c in Blood HEMOGLOBIN A1C Lab Routine Type 2 diabetes mellitus with other specified complication, without long-term current use of insulin (HCC) Expected: 06/19/2025 (Approximate), Expires: 09/18/2025 [facility] Comment on above: Expected: 06/19/2025 (Approximate), Expi res: 09/18/2025 Start: 06-11-2025 End: 06-11-2025 Patient encounter procedure [facility] Comment on above: 4 month f/u. dlm 4 month f/u. dlm EKG- hlk Start: 06-04-2025 End: 06-04-2025 Patient encounter procedure 06/04/2025 10:40 AM EDT Office Visit [facility] [place] [address] [place] [address] Luis Manuel Hernandez APRN.WAREHOUSE SUPERVISOR [address] [place] [address] [facility] ER F/U 05/22/2025; Dehydration [facility] [place] Comment on above: [facility] ER F/U 05/22/2025; Dehydration Start: 05-31-2025 Influenza vaccination Influenza Vaccine (#1) [facility] Start: 05-27-2025 End: 08-26-2025 Basic metabolic 2000 panel - Serum or Plasma BASIC METABOLIC PANEL Lab Routine Elevated BUN Expected: 05/27/2025, Expires: 08/26/2025 [facility] Work Phone: Comment on above: Expected: 05/27/2025, Expires: Start: 05-27-2025 End: 08-26-2025 CBC panel - Blood by Automated count COMPLETE BLOOD COUNT Lab Routine Anemia, unspecified type Expected: 05/27/2025, Expires: 08/26/2025 [facility] Comment on above: Expected: 05/27/2025, Expires: Start: 05-27-2025 End: 08-26-2025 Cobalamin (Vitamin B12) [Mass/volume] in Serum or Plasma VITAMIN B12 Lab Routine Anemia, unspecified type Expected: 05/27/2025, Expires: 08/26/2025 [facility] Comment on above: Expected: 05/27/2025, Expires: Start: 05-27-2025 End: 08-26-2025 Ferritin [Mass/volume] in Serum or Plasma FERRITIN Lab Routine Anemia, unspecified type Expected: 05/27/2025, Expires: 08/26/2025 [facility] Comment on above: Expected: 05/27/2025, Expires: Start: 05-27-2025 End: 08-26-2025 Folate [Mass/volume] in Serum or Plasma FOLATE, SERUM Lab Routine Anemia, unspecified type Expected: 05/27/2025, Expires: 08/26/2025 [facility] Comment on above: Expected: 05/27/2025, Expires: Start: 05-27-2025 End: 08-26-2025 Iron and Iron binding capacity panel - Serum or Plasma IRON AND TIBC Lab Routine Anemia, unspecified type Expected: 05/27/2025, Expires: 08/26/2025 [facility] Comment on above: Expected: 05/27/2025, Expires: Start: 05-22-2025 [facility] Start: 03-19-2025 End: 03-19-2025 Patient encounter procedure 03/19/2025 9:40 AM EDT Office Visit [facility] [place] [address] [place] [address] Bg Chavarria MD [address] [place] [address] 4 mo follow up [facility] [place] Comment on above: 4 mo follow up Start: 03-18-2025 End: 03-18-2025 Patient encounter procedure 03/18/2025 12:30 PM EDT Appointment Radiology [address] [place] [id number] [facility] Comment on above: [facility] Start: 03-11-2025 Hepatitis B screening Urine Albumin:Creatinine Ratio [facility] Start: 03-11-2025 Hepatitis B surface antibody level LDL Cholesterol [facility] Start: 02-28-2025 End: 05-30-2025 25-hydroxyvitamin D3 [Mass/volume] in Serum or Plasma VITAMIN D 25 HYDROXY Lab Routine Vitamin D deficiency Expected: 02/28/2025 (Approximate), Expires: 05/30/2025 [facility] Comment on above: Expected: 02/28/2025 (Approximate), Expi res: 05/30/2025 Start: 02-28-2025 End: 05-30-2025 CBC panel - Blood by Automated count COMPLETE BLOOD COUNT Lab Routine Type 2 diabetes mellitus with other specified complication, without long-term current use of insulin (HCC) Expected: 02/28/2025 (Approximate), Expires: 05/30/2025 [facility] Comment on above: Expected: 02/28/2025 (Approximate), Expi res: 05/30/2025 Start: 02-28-2025 End: 05-30-2025 Cobalamin (Vitamin B12) [Mass/volume] in Serum or Plasma VITAMIN B12 Lab Routine Low vitamin B12 level Expected: 02/28/2025 (Approximate), Expires: 05/30/2025 [facility] Comment on above: Expected: 02/28/2025 (Approximate), Expi res: 05/30/2025 Start: 02-28-2025 End: 05-30-2025 Comprehensive metabolic 2000 panel - Serum or Plasma COMPREHENSIVE METABOLIC PANEL Lab Routine Type 2 diabetes mellitus with other specified complication, without long-term current use of insulin (HCC) Expected: 02/28/2025 (Approximate), Expires: 05/30/2025 [facility] Comment on above: Expected: 02/28/2025 (Approximate), Expi res: 05/30/2025 Start: 02-28-2025 End: 05-30-2025 Hemoglobin A1c in Blood HEMOGLOBIN A1C Lab Routine Type 2 diabetes mellitus with other specified complication, without long-term current use of insulin (HCC) Expected: 02/28/2025 (Approximate), Expires: 05/30/2025 [facility] Work Phone: Comment on above: Expected: 02/28/2025 (Approximate), Expi res: 05/30/2025 Start: 02-28-2025 End: 05-30-2025 Lipid 1996 panel - Serum or Plasma LIPID PANEL BASIC Lab Routine Type 2 diabetes mellitus with other specified complication, without long-term current use of insulin (HCC) Expected: 02/28/2025 (Approximate), Expires: 05/30/2025 [facility] Comment on above: Expected: 02/28/2025 (Approximate), Expi res: 05/30/2025 Start: 02-28-2025 End: 05-30-2025 Microalbumin/Creatinine [Mass Ratio] in Urine ALBUMIN/CREATININE RATIO, URINE Lab Routine Type 2 diabetes mellitus with other specified complication, without long-term current use of insulin (HCC) Expected: 02/28/2025 (Approximate), Expires: 05/30/2025 [facility] Comment on above: Expected: 02/28/2025 (Approximate), Expi res: 05/30/2025 Start: 02-18-2025 End: 02-18-2025 Patient encounter procedure 02/18/2025 11:15 AM EDT Appointment Radiology [address] [place] [id number] Asymptomatic postmenopausal status [Z78.0] Radiology Comment on above: Asymptomatic postmenopausal status [Z78. 0] Start: 02-15-2025 End: 02-15-2025 Patient encounter procedure [facility] Comment on above: 3 month follow up, monitor results 3 month f/u, monitor results EKG dlm Start: 02-09-2025 Glaucoma screening Dilated Retinal Exam [facility] Start: 01-29-2025 End: 01-29-2025 Patient encounter procedure 01/29/2025 3:00 PM EDT Office Visit [facility] [address] [place] [address] Josue Fagan APRN.[facility] [address] [place] [address] 3 month follow up, monitor results [facility] Comment on above: 3 month follow up, monitor results Start: 01-21-2025 Hemoglobin A1c measurement HbA1C [facility] Start: 12-05-2024 Covid-19 Vaccine ( season) Covid-19 Vacc[address] () [facility] Start: 11-20-2024 End: 11-20-2024 Patient encounter procedure 11/20/2024 9:40 AM EST Office Visit [facility] [place] [address] [place] [address] Bg Chavarria MD [address] [place], [place] [id number] 4 mo follow up [facility] [place] Comment on above: 4 mo follow up Start: 11-13-2024 Subsequent hospital visit by physician 11/13/2024 Hospital Encounter [facility] [address] [place] [address] Russell Rodriguez MD [address] [facility] [address] [place] [address] Paroxysmal SVT (supraventricular tachycardia) (HCC) [I47.10], Postural dizziness with presyncope [R42, R55] [facility] Comment on above: Paroxysmal SVT (supraventricular tachyca rdia) (HCC) [I47.10], Postural dizziness with presyncope [R42, R55] Start: 11-02-2024 End: 11-02-2024 Patient encounter procedure 11/02/2024 11:00 AM EST Office Visit [facility] [place] [address] [facility] [place] [address] Luis Manuel Hernandez APRN.WAREHOUSE SUPERVISOR [address] [facility] [place] [address] [facility] [place] Follow up 10/27/2024; [facility] [place] Comment on above: [facility] [place] Follow up 10/27/2 025; [facility] Start: 10-26-2024 End: 10-26-2024 Admission to same day surgery center 10/26/2024 7:45 AM EST - 10/26/2024 11:44 AM EST Surgery [facility] [address] [place] [address] Russell Rodriguez MD [address] [place] [address] [address] [place], [place] [phone] COMPLETE EPS W/SVT ABL W/WO 3D MAP [...] EST Hospital Encounter [facility] [address] [place] [address] Russell Rodriguez MD [address] [place] [address] [address] [place], [place] [id number] Paroxysmal SVT (supraventricular tachycardia) (HCC) [I47.10], Postural dizziness with presyncope [R42, R55] [facility] Comment on above: Paroxysmal SVT (supraventricular tachyca rdia) (HCC) [I47.10], Postural dizziness with presyncope [R42, R55] Start: 09-30-2024 Advance Directive Discussion Advance Directive Discussion [facility] Start: 09-24-2024 End: 09-24-2024 Patient encounter procedure 09/24/2024 1:00 PM EST Office Visit [facility] [address] [place] [address] Russell Rodriguez MD [address] [facility] [address] [place] [address] Ref; PCP for SVT [facility] Comment on above: Ref; PCP for SVT Start: 09-11-2024 End: 09-11-2024 Patient encounter procedure 09/11/2024 2:00 PM EST Office Visit Cardiology [address] [address] Huyen Hernandez MD [address] [place] [phone] Postural dizziness with presyncope [R42, R55]; Former [...] [R09.89] Start: 09-10-2024 Hemoglobin A1c measurement HbA1C [facility] Start: 09-07-2024 End: 09-07-2024 Patient encounter procedure 09/07/2024 11:20 AM EST Office Visit Cardiology [address] [place] [id number] Wstr, Nurse Card Admin [facility] [address] [place] [address] Postural dizziness with presyncope [R42, R55] Cardiology Comment on above: Postural dizziness with presyncope [R42, R55] Start: 07-27-2024 End: 07-27-2024 Patient encounter procedure 07/27/2024 4:20 PM EDT Office Visit [facility] [place] [address] [place] [address] Bg Chavarria MD [address] [place] [address] 4 mo follow up [facility] [place] Comment on above: 4 mo follow up Start: 07-15-2024 3 comp foot exam completed Diabetic Foot Exam [facility] Start: 07-15-2024 Diabetic foot examination Diabetic Foot Exam [facility] Start: 07-13-2024 End: 07-13-2024 Patient encounter procedure Orthopaedics Comment on above: S/P- Rt MERLE- r hip Start: 07-06-2024 End: 10-05-2024 CBC W Auto Differential panel - Blood [facility] Comment on above: Expected: 07/06/2024, Expires: Start: 07-06-2024 End: 10-05-2024 Comprehensive metabolic 2000 panel - Serum or Plasma COMPREHENSIVE METABOLIC PANEL Lab Routine Postural dizziness with presyncope Expected: 07/06/2024, Expires: 10/05/2024 [facility] Comment on above: Expected: 07/06/2024, Expires: Start: 07-06-2024 End: 10-05-2024 Hemoglobin A1c in Blood HEMOGLOBIN A1C Lab Routine Postural dizziness with presyncope Abnormal finding of blood chemistry, unspecified Expected: 07/06/2024, Expires: 10/05/2024 [facility] Comment on above: Expected: 07/06/2024, Expires: Start: 07-06-2024 End: 10-05-2024 Thyrotropin [Units/volume] in Serum or Plasma [facility] Comment on above: Expected: 07/06/2024, Expires: Start: 07-06-2024 End: 07-06-2024 Patient encounter procedure 07/06/2024 10:20 AM EDT Office Visit Internal Medicine [place] [address] [place] [address] Luis Manuel Hernandez APRN.WAREHOUSE SUPERVISOR [address] [place] [address] Near syncope episode [facility] [place] Comment on above: Near syncope episode Start: 06-30-2024 End: 09-29-2024 Comprehensive metabolic 2000 panel - Serum or Plasma COMPREHENSIVE METABOLIC PANEL Lab Routine Type 2 diabetes mellitus with other specified complication, without long-term current use of insulin (HCC) Expected: 06/30/2024 (Approximate), Expires: 09/29/2024 [facility] Comment on above: Expected: 06/30/2024 (Approximate), Expi res: 09/29/2024 Start: 06-30-2024 End: 09-29-2024 Hemoglobin A1c in Blood HEMOGLOBIN A1C Lab Routine Type 2 diabetes mellitus with other specified complication, without long-term current use of insulin (HCC) Expected: 06/30/2024 (Approximate), Expires: 09/29/2024 [facility] Comment on above: Expected: 06/30/2024 (Approximate), Expi res: 09/29/2024 Start: 05-31-2024 Covid-19 Vaccine ( season) Covid-19 Vaccine ( season) [facility] Start: 05-31-2024 Influenza vaccination Influenza Vaccine (#1) [facility] Start: 05-18-2024 Hemoglobin A1c measurement HbA1C [facility] Start: 05-18-2024 End: 05-18-2024 Patient encounter procedure 05/18/2024 10:00 AM EDT Office Visit [facility] [place] [address] [place] [address] Bg Chavarria MD [address] [place] [address] follow up lightheaded, chest pain (see mychart message) [facility] [place] Comment on above: follow up lightheaded, chest pain (see m ychart message) Start: 05-07-2024 End: 05-07-2024 Patient encounter procedure Radiology Comment on above: xr hip,Lt left hip replacement follow up Start: 05-01-2024 End: 05-01-2024 Patient encounter procedure 05/01/2024 8:00 AM EDT Office Visit Orthopaedics [address] [place] [address] Joe Jiang PA-C [address] [place] [address] left knee pain Orthopaedics Comment on above: left knee pain Start: 03-31-2024 End: 03-31-2024 Patient encounter procedure 03/31/2024 8:40 AM EDT Office Visit [facility] [place] [address] [facility] [place] [address] Bg Chavarria MD [address] [facility] [place] [address] Fell and injured left knee [facility] [place] Comment on above: Fell and injured left knee Start: 03-18-2024 End: 06-17-2024 25-hydroxyvitamin D3 [Mass/volume] in Serum or Plasma VITAMIN D 25 HYDROXY Lab Routine Vitamin D deficiency Expected: 03/18/2024 (Approximate), Expires: 06/17/2024 [facility] Work Phone: Comment on above: Expected: 03/18/2024 (Approximate), Expi res: 06/17/2024 Start: 03-18-2024 End: 06-17-2024 ALBUMIN/CREAT RATIO RND UR ALBUMIN/CREAT RATIO RND UR Lab Routine Type 2 diabetes mellitus without complication, without long-term current use of insulin (HCC) Expected: 03/18/2024 (Approximate), Expires: 06/17/2024 [facility] Work Phone: Comment on above: Expected: 03/18/2024 (Approximate), Expi res: 06/17/2024 Start: 03-18-2024 End: 06-17-2024 CBC panel - Blood by Automated count CBC Lab Routine Encounter for long-term current use of medication Expected: 03/18/2024 (Approximate), Expires: 06/17/2024 [facility] Work Phone: Comment on above: Expected: 03/18/2024 (Approximate), Expi res: 06/17/2024 Start: 03-18-2024 End: 06-17-2024 Comprehensive metabolic 2000 panel - Serum or Plasma COMP METABOLIC PANEL Lab Routine Type 2 diabetes mellitus without complication, without long-term current use of insulin (HCC) Encounter for long-term current use of medication Expected: 03/18/2024 (Approximate), Expires: 06/17/2024 [facility] Work Phone: Comment on above: Expected: 03/18/2024 (Approximate), Expi res: 06/17/2024 Start: 03-18-2024 End: 06-17-2024 Hemoglobin A1c in Blood HGB A1C Lab Routine Type 2 diabetes mellitus without complication, without long-term current use of insulin (HCC) Expected: 03/18/2024 (Approximate), Expires: 06/17/2024 [facility] Work Phone: Comment on above: Expected: 03/18/2024 (Approximate), Expi res: 06/17/2024 Start: 03-18-2024 End: 06-17-2024 Lipid 1996 panel - Serum or Plasma LIPID PANEL BASIC Lab Routine Elevated LDL cholesterol level Expected: 03/18/2024 (Approximate), Expires: 06/17/2024 [facility] Work Phone: Comment on above: Expected: 03/18/2024 (Approximate), Expi res: 06/17/2024 Start: 03-17-2024 End: 03-17-2024 Patient encounter procedure 03/17/2024 9:40 AM EDT Office Visit Internal [facility] [place] [address] [place] [id number] Bg Chavarria MD [address] [place] [id number] 4 Month follow up [facility] [place] Comment on above: 4 Month follow up Start: 03-08-2024 Hepatitis B surface antibody level LDL CHOLESTEROL [facility] Start: 02-05-2024 3 comp foot exam completed DIABETIC FOOT EXAM [facility] Start: 01-30-2024 End: 01-30-2024 ambulatory 01/30/2024 1:00 PM EDT [facility] [place] [address] [place] [address] Luis Manuel Hernandez APRN.WAREHOUSE SUPERVISOR [address] [place] [address] COVID + would like treatment with Paxlovid Internal Medicine [place] Comment on above: COVID + would like treatment with Paxlov id Start: 01-17-2024 Glaucoma screening Dilated Retinal Exam [facility] Start: 01-17-2024 Hepatitis C antibody, confirmatory test DILATED RETINAL EXAM [facility] Start: 12-20-2023 Hemoglobin A1c measurement HbA1C [facility] Start: 12-20-2023 Hemoglobin A1c/Hemoglobin.total in Blood HbA1C [facility] Start: 11-18-2023 Covid-19 Vaccine () Covid-19 Vaccine () [facility] Start: 09-07-2023 Hemoglobin A1c/Hemoglobin.total in Blood HBA1C [facility] Start: 2023 End: 10-15-2023 CBC W Auto Differential panel - Blood CBC + DIFF Lab Routine Blood loss anemia Expected: 2023 (Approximate), Expires: 10/15/2023 [facility] Work Phone: Comment on above: Expected: 2023 (Approximate), Expi res: 10/15/2023 Start: 07-15-2023 End: 09-14-2023 25-hydroxyvitamin D3 [Mass/volume] in Serum or Plasma VITAMIN D 25 HYDROXY Lab Routine Vitamin D deficiency Expected: 07/15/2023 (Approximate), Expires: 09/14/2023 [facility] Work Phone: Comment on above: Expected: 07/15/2023 (Approximate), Expi res: 09/14/2023 Start: 07-15-2023 End: 09-14-2023 ALBUMIN/CREAT RATIO RND UR ALBUMIN/CREAT RATIO RND UR Lab Routine Type 2 diabetes mellitus with other specified complication, without long-term current use of insulin ([facility]) Expected: 07/15/2023 (Approximate), Expires: 09/14/2023 [facility] Work Phone: Comment on above: Expected: 07/15/2023 (Approximate), Expi res: 09/14/2023 Start: 07-15-2023 End: 09-14-2023 CBC panel - Blood by Automated count CBC Lab Routine Encounter for long-term current use of medication Expected: 07/15/2023 (Approximate), Expires: 09/14/2023 [facility] Work Phone: Comment on above: Expected: 07/15/2023 (Approximate), Expi res: 09/14/2023 Start: 07-15-2023 End: 09-14-2023 Comprehensive metabolic 2000 panel - Serum or Plasma COMP METABOLIC PANEL Lab Routine Type 2 diabetes mellitus with other specified complication, without long-term current use of insulin (HCC) Vitamin D deficiency Encounter for long-term current use of medication Expected: 07/15/2023 (Approximate), Expires: 09/14/2023 [facility] Work Phone: Comment on above: Expected: 07/15/2023 (Approximate), Expi res: 09/14/2023 Start: 07-15-2023 End: 09-14-2023 Hemoglobin A1c in Blood HGB A1C Lab Routine Type 2 diabetes mellitus with other specified complication, without long-term current use of insulin (HCC) Expected: 07/15/2023 (Approximate), Expires: 09/14/2023 [facility] Work Phone: Comment on above: Expected: 07/15/2023 (Approximate), Expi res: 09/14/2023 Start: 07-15-2023 End: 09-14-2023 Lipid 1996 panel - Serum or Plasma LIPID PANEL BASIC Lab Routine Type 2 diabetes mellitus with other specified complication, without long-term current use of insulin (HCC) Elevated LDL cholesterol level Expected: 07/15/2023 (Approximate), Expires: 09/14/2023 [facility] Work Phone: Comment on above: Expected: 07/15/2023 (Approximate), Expi res: 09/14/2023 Start: 06-28-2023 3 comp foot exam completed DIABETIC FOOT EXAM [facility] Start: 06-28-2023 Hepatitis B surface antibody level LDL CHOLESTEROL [facility] Start: 06-05-2023 End: 08-05-2023 CBC W Auto Differential panel - Blood CBC + DIFF Lab Routine Osteonecrosis of right hip (HCC) Pre-op testing Expected: 06/05/2023, Expires: 08/05/2023 [facility] Work Phone: Comment on above: Expected: 06/05/2023, Expires: 3 Start: 06-05-2023 End: 08-05-2023 Comprehensive metabolic 2000 panel - Serum or Plasma COMP METABOLIC PANEL Lab Routine Osteonecrosis of right hip (HCC) Pre-op testing Expected: 06/05/2023, Expires: 08/05/2023 [facility] Work Phone: Comment on above: Expected: 06/05/2023, Expires: 3 Start: 06-05-2023 End: 08-05-2023 Hemoglobin A1c in Blood HGB A1C Lab Routine Osteonecrosis of right hip (HCC) Pre-op testing Controlled type 2 diabetes mellitus without complication, without long-term current use of insulin (HCC) Expected: 06/05/2023, Expires: 08/05/2023 [facility] Work Phone: Comment on above: Expected: 06/05/2023, Expires: 3 Start: 06-05-2023 End: 08-05-2023 TYPE AND SCREEN,30 DAY TYPE AND SCREEN,30 DAY Blood Bank Routine Osteonecrosis of right hip (HCC) Pre-op testing Expected: 06/05/2023, Expires: 08/05/2023 [facility] Work Phone: Comment on above: Expected: 06/05/2023, Expires: 3 Start: 05-31-2023 Covid-19 Vaccine () Covid-19 Vaccine () [facility] Start: 05-31-[address] [facility] Start: 05-09-2023 Hemoglobin A1c/Hemoglobin.total in Blood HBA1C [facility] Start: 03-15-2023 ANNUAL PCP TEAM CHRONIC DISEASE VISIT ANNUAL PCP TEAM CHRONIC DISEASE VISIT [facility] Start: 02-27-2023 Adult depression screening assessment DEPRESSION SCREENING [facility] Start: 02-27-2023 ANNUAL PCP TEAM CHRONIC DISEASE VISIT ANNUAL PCP TEAM CHRONIC DISEASE VISIT [facility] Start: 02-19-2023 Hepatitis B screening URINE ALBUMIN:CREATININE RATIO [facility] Start: 01-25-2023 Hepatitis C antibody, confirmatory test DILATED RETINAL EXAM [facility] Start: 10-24-2022 3 comp foot exam completed DIABETIC FOOT EXAM [facility] Start: 10-24-2022 ANNUAL PCP TEAM CHRONIC DISEASE VISIT ANNUAL PCP TEAM CHRONIC DISEASE VISIT [facility] Start: 09-30-2022 ADVANCE DIRECTIVE DISCUSSION ADVANCE DIRECTIVE DISCUSSION [facility] Start: 08-22-2022 Hemoglobin A1c/Hemoglobin.total in Blood HBA1C [facility] Start: 06-29-2022 End: 08-29-2022 CBC panel - Blood by Automated count CBC Lab Routine Type 2 diabetes mellitus with other specified complication, without long-term current use of insulin (HCC) Expected: 06/29/2022 (Approximate), Expires: 08/29/2022 [facility] Work Phone: Comment on above: Expected: 06/29/2022 (Approximate), Expi res: 08/29/2022 Start: 06-29-2022 End: 08-29-2022 Comprehensive metabolic 2000 panel - Serum or Plasma COMP METABOLIC PANEL Lab Routine Type 2 diabetes mellitus with other specified complication, without long-term current use of insulin (HCC) Expected: 06/29/2022 (Approximate), Expires: 08/29/2022 [facility] Work Phone: Comment on above: Expected: 06/29/2022 (Approximate), Expi res: 08/29/2022 Start: 06-29-2022 End: 08-29-2022 Hemoglobin A1c/Hemoglobin.total in Blood HGB A1C Lab Routine Type 2 diabetes mellitus with other specified complication, without long-term current use of insulin (HCC) Expected: 06/29/2022 (Approximate), Expires: 08/29/2022 [facility] Work Phone: Comment on above: Expected: 06/29/2022 (Approximate), Expi res: 08/29/2022 Start: 06-29-2022 End: 08-29-2022 LIPID PANEL BASIC LIPID PANEL BASIC Lab Routine Elevated LDL cholesterol level Expected: 06/29/2022 (Approximate), Expires: 08/29/2022 [facility] Work Phone: Comment on above: Expected: 06/29/2022 (Approximate), Expi res: 08/29/2022 Start: 06-29-2022 End: 08-29-2022 VITAMIN B12 BLOOD VITAMIN B12 BLOOD Lab Routine Low vitamin B12 level Expected: 06/29/2022 (Approximate), Expires: 08/29/2022 [facility] Work Phone: Comment on above: Expected: 06/29/2022 (Approximate), Expi res: 08/29/2022 Start: 06-29-2022 End: 08-29-2022 VITAMIN D 25 HYDROXY VITAMIN D 25 HYDROXY Lab Routine Vitamin D deficiency Expected: 06/29/2022 (Approximate), Expires: 08/29/2022 [facility] Work Phone: Comment on above: Expected: 06/29/2022 (Approximate), Expi res: 08/29/2022 Start: 06-28-2022 End: 08-28-2022 25-hydroxyvitamin D3 [Mass/volume] in Serum or Plasma [facility] Work Phone: Comment on above: Expected: 06/28/2022, Expires: 2 Start: 06-28-2022 End: 08-28-2022 CBC W Auto Differential panel - Blood [facility] Work Phone: Comment on above: Expected: 06/28/2022, Expires: 2 Start: 06-28-2022 End: 08-28-2022 Cobalamin (Vitamin B12) [Mass/volume] in Serum or Plasma [facility] Work Phone: Comment on above: Expected: 06/28/2022, Expires: 2 Start: 06-28-2022 End: 08-28-2022 Comprehensive metabolic 2000 panel - Serum or Plasma [facility] Work Phone: Comment on above: Expected: 06/28/2022, Expires: 2 Start: 06-28-2022 End: 08-28-2022 LIPID PANEL, NONFASTING [facility] Work Phone: Comment on above: Expected: 06/28/2022, Expires: 2 Start: 06-27-2022 Hepatitis B surface antibody level LDL CHOLESTEROL [facility] Start: 06-23-2022 ANNUAL PCP TEAM CHRONIC DISEASE VISIT ANNUAL PCP TEAM CHRONIC DISEASE VISIT [facility] Start: 05-31-2022 Influenza vaccination INFLUENZA (#1) [facility] Start: 02-15-2022 Adult depression screening assessment DEPRESSION SCREENING [facility] Start: 12-25-2021 Hemoglobin A1c/Hemoglobin.total in Blood HBA1C [facility] Start: 11-28-2021 Hepatitis C antibody, confirmatory test DILATED RETINAL EXAM [facility] Start: 11-24-2021 COVID-19 VACCINE (4 - Booster for Moderna series) COVID-19 VACCINE (4 - Booster for Moderna series) [facility] Start: 10-17-2021 Hepatitis B screening URINE ALBUMIN:CREATININE RATIO [facility] Start: 09-30-2021 ADVANCE DIRECTIVE DISCUSSION ADVANCE DIRECTIVE DISCUSSION [facility] Start: 07-31-2006 Medicare Annual Wellness Visit Medicare Annual Wellness Visit [facility] Start: 2001 Hepatitis B Vaccine (1 of 3 - Risk 3-dose series) Hepatitis B Vaccine (1 of 3 - Risk 3-dose series) [facility] Start: 1959 Anxiety Screening Anxiety Screening [facility] Start: 1959 Depression Screening Depression Screening [facility] Basic metabolic 2000 panel - Serum or Plasma BASIC METABOLIC PANEL Lab Routine Elevated BUN 05/28/2025 3:[address] [facility] End: 12-20-2025 BD DXA TRABECULAR BONE SCORE (TBS) BD DXA TRABECULAR BONE SCORE (TBS) Radiology Routine Asymptomatic postmenopausal status 1 Occurrences starting 11/20/2024 until 12/20/2025 [facility] Comment on above: 1 Occurrences starting 11/20/2024 until 12/20/2025 BD DXA TRABECULAR ELIZABETH NE SCORE (TBS) BD DXA TRABECULAR BONE SCORE (TBS) Radiology Routine Asymptomatic postmenopausal status 03/18/2025 12:[address] [facility] CBC panel - Blood by Automated count COMPLETE BLOOD COUNT Lab Routine Anemia, unspecified type 05/28/2025 3:[address] [facility] Cobalamin (Vitamin B 12) [Mass/volume] in Serum or Plasma VITAMIN B12 Lab Routine Anemia, unspecified type 05/28/2025 3:[address] [facility] End: 03-05-2023 COLONOSCOPY DIAGNOSTIC COLONOSCOPY DIAGNOSTIC Endoscopy Routine Rectal bleeding 1 Occurrences starting 03/05/2022 until 03/05/2023 [facility] Work Phone: Comment on above: 1 Occurrences starting 03/05/2022 until 03/05/2023 End: 06-19-2024 CT HIP WO IVCON RIGHT CT HIP WO IVCON RIGHT Radiology Routine Presence of right artificial hip joint Osteonecrosis of right hip (HCC) Preoperative examination 1 Occurrences starting 05/21/2023 until 06/19/2024 [facility] Work Phone: Comment on above: 1 Occurrences starting 05/21/2023 until 06/19/2024 Dstr nrolytc agnt parverteb fct addl lmbr/sacral DSTR NROLYTC AGNT PARVERTEB FCT ADDL LMBR/SACRAL Procedures Routine Chronic midline low back pain without sciatica DDD (degenerative disc disease), lumbar Lumbar spondylosis 1 Occurrences starting 01/22/2022 [facility] Work Phone: Comment on above: 1 Occurrences starting 01/22/2022 Dstr nrolytc agnt parverteb fct sngl lmbr/sacral DSTR NROLYTC AGNT PARVERTEB FCT SNGL LMBR/SACRAL Procedures Routine Chronic midline low back pain without sciatica DDD (degenerative disc disease), lumbar Lumbar spondylosis 1 Occurrences starting 01/22/2022 [facility] Work Phone: Comment on above: 1 Occurrences starting 01/22/2022 End: 12-20-2025 DXA Skeletal system.axial Views for bone density DXA-AXIAL SKELETON Radiology Routine Asymptomatic postmenopausal status 1 Occurrences starting 11/20/2024 until 12/20/2025 [facility] Comment on above: 1 Occurrences starting 11/20/2024 until 12/20/2025 DXA Skeletal system. axial Views for bone density DXA-AXIAL SKELETON Radiology Routine Asymptomatic postmenopausal status 03/18/2025 12:52 PM EDT [facility] Work Phone: ECG B/O W INTERP (ME D OFFICE) ECG B/O W INTERP (MED OFFICE) ECG Routine Paroxysmal SVT (supraventricular tachycardia) (HCC) Ordered: 09/24/2024 [facility] Work Phone: Comment on above: Ordered: 09/24/2024 ECG COMPLETE ECG COMPLETE ECG 07/06/2024 11:40 AM EDT [facility] EVENT MONITOR EVENT MONITOR Ca rdiology Routine Paroxysmal SVT (supraventricular tachycardia) (HCC) Typical atrial flutter (HCC) S/P catheter ablation of slow pathway Ordered: 10/30/2024 [facility] Work Phone: Comment on above: Ordered: 10/30/2024 Ferritin [Mass/volum e] in Serum or Plasma FERRITIN Lab Routine Anemia, unspecified type 05/28/2025 3:[address] [facility] Folate [Mass/volume] in Serum or Plasma FOLATE, SERUM Lab Routine Anemia, unspecified type 05/28/2025 3:[address] [facility] Iron and Iron bindin g capacity panel - Serum or Plasma IRON AND TIBC Lab Routine Anemia, unspecified type 05/28/2025 3:[address] [facility] OUTSIDE VENDOR CARDI AC OUTPATIENT EXTENDED RHYTHM RECORDING (WITHOUT TELEMETRY) OUTSIDE VENDOR CARDIAC OUTPATIENT EXTENDED RHYTHM RECORDING (WITHOUT TELEMETRY) Holter Routine Postural dizziness with presyncope Ordered: 07/06/2024 [facility] Work Phone: Comment on above: Ordered: 07/06/2024 OUTSIDE VENDOR CARDI AC OUTPATIENT EXTENDED RHYTHM RECORDING (WITHOUT TELEMETRY) OUTSIDE VENDOR CARDIAC OUTPATIENT EXTENDED RHYTHM RECORDING (WITHOUT TELEMETRY) Holter Routine Paroxysmal SVT (supraventricular tachycardia) (HCC) Typical atrial flutter (HCC) Ordered: 02/15/2025 [facility] Work Phone: Comment on above: Ordered: 02/15/2025 Patient Education ED Dehydration (Adult) [facility] Work Phone: Percutaneous translu lisa ablation of atrioventricular node COMPLETE EPS W/SVT ABL W/WO 3D MAP [place] PACE REC Paroxysmal SVT (supraventricular tachycardia) (HCC) Postural dizziness with presyncope [facility] PFIZER-BIONTECH COVI D-19 VACCINE ( SEASON) AGE 12+ YR PFIZER-BIONTECH COVID-19 VACCINE ( SEASON) AGE 12+ YR Immunization/Injection Routine Encounter for immunization 1 Occurrences starting 07/15/2023 [facility] Work Phone: Comment on above: 1 Occurrences starting 07/15/2023 PT PLAN OF CARE CERTIFICATION PT PLAN OF CARE CERTIFICATION Procedures Routine Trochanteric bursitis of right hip Ordered: 04/08/2023 [facility] Work Phone: Comment on above: Ordered: 04/08/2023 End: 02-15-2023 Radiologic examination pelvis 1/2 views XR PELVIS 1V AP Radiology Routine Pain in left hip 1 Occurrences starting 01/16/2022 until 02/15/2023 [facility] Work Phone: Comment on above: 1 Occurrences starting 01/16/2022 until 02/15/2023 End: 03-29-2023 Screening mammography bi 2-view breast inc cad ANGIE SCREENING Radiology Routine Breast cancer screening by mammogram 1 Occurrences starting 02/27/2022 until 03/29/2023 [facility] Work Phone: Comment on above: 1 Occurrences starting 02/27/2022 until 03/29/2023 End: 07-06-2025 STRESS ECHO TREADMILL STRESS ECHO TREADMILL Cardiology Routine Postural dizziness with presyncope Former smoker Abnormal EKG Type 2 diabetes mellitus with other specified complication, without long-term current use of insulin (HCC) Elevated LDL cholesterol level SOB (shortness of breath) Throat tightness 1 Occurrences starting 07/06/2024 until 07/06/2025 [facility] Comment on above: 1 Occurrences starting 07/06/2024 until 07/06/2025 End: 10-14-2023 XR HIP GENERAL 3V PELV/AP/LAT RIGHT XR HIP GENERAL 3V PELV/AP/LAT RIGHT Radiology Routine Bursitis of other bursa of right hip 1 Occurrences starting 09/14/2022 until 10/14/2023 [facility] Work Phone: Comment on above: 1 Occurrences starting 09/14/2022 until 10/14/2023 XR HIP GENERAL 3V PELV/AP/LAT RIGHT XR HIP GENERAL 3V PELV/AP/LAT RIGHT Radiology Routine Bursitis of other bursa of right hip 09/14/2022 12:03 PM EST [facility] Work Phone: End: 03-05-2024 XR HIP GENERAL 3V PELV/AP/LAT RIGHT XR HIP GENERAL 3V PELV/AP/LAT RIGHT Radiology Routine Chronic pain of right hip 1 Occurrences starting 02/04/2023 until 03/05/2024 [facility] Work Phone: Comment on above: 1 Occurrences starting 02/04/2023 until 03/05/2024 End: 04-30-2025 XR Knee - left 4 Views XR KNEE GENERAL 4V AP BOTH/PA BOTH/LAT/MERC LEFT Radiology Routine Acute pain of left knee Contusion of left knee, initial encounter 1 Occurrences starting 03/31/2024 until 04/30/2025 [facility] Work Phone: Comment on above: 1 Occurrences starting 03/31/2024 until 04/30/2025 XR Knee - left 4 Views XR KNEE G ENERAL 4V AP BOTH/PA BOTH/LAT/MERC LEFT Radiology Routine Acute pain of left knee Contusion of left knee, initial encounter 03/31/2024 10:[address] [facility] End: 05-28-2025 XR Knee - left 4 Views XR KNEE GENERAL 4V AP BOTH/PA BOTH/LAT/MERC LEFT Radiology Routine Pain 1 Occurrences starting 04/28/2024 until 05/28/2025 [facility] Work Phone: Comment on above: 1 Occurrences starting 04/28/2024 until 05/28/2025 End: 05-09-2025 XR Pelvis and Hip - left AP and Lateral frog XR HIP GENERAL 3V PELV/AP/LAT LEFT Radiology Routine Pain 1 Occurrences starting 04/09/2024 until 05/09/2025 [facility] Work Phone: Comment on above: 1 Occurrences starting 04/09/2024 until 05/09/2025 End: 08-02-2025 XR Pelvis and Hip - right AP and Lateral frog XR HIP GENERAL 3V PELV/AP/LAT RIGHT Radiology Routine Status post hip replacement, right 1 Occurrences starting 07/03/2024 until 08/02/2025 [facility] Work Phone: Comment on above: 1 Occurrences starting 07/03/2024 until 08/02/2025 XR Pelvis and Hip - right AP and Lateral frog XR HIP GENERAL 3V PELV/AP/LAT RIGHT Radiology Routine Status post hip replacement, right 07/13/2024 10:32 AM EDT [facility] Work Phone: [facility] Immunizations Immunization Date Immunization Notes Care Provider Niles blanton 12-18-2024 COVID-19 vaccine, ag e 12+ yr (Flavours-[employer] [facility]) [place] Nurse Work Phone: [facility] 06-07-2024 influenza, high dose seasonal, preservative-free Luis Manuel Hernandez APRN.WAREHOUSE SUPERVISOR Work Phone: [facility] 06-07-2024 influenza virus vaccine, unspecified formulation Bg Chavarria MD Work Phone: [facility] 07-15-2023 respiratory syncytia l virus (RSV) vaccine, bivalent (ABRYSVO) Luis Manuel Hernandez BINDERY SUPERVISOR.WAREHOUSE SUPERVISOR Work Phone: [facility] Work Phone: 07-08-2023 influenza (HD-IIV4) vaccine, age 65+ yr, high dose, quadrivalent, PF (FLUZONE HIGH-DOSE) Luis Manuel Hernandez BINDERY SUPERVISOR.WAREHOUSE SUPERVISOR Work Phone: [facility] 07-08-2023 influenza virus vaccine, unspecified formulation Bg Chavarria MD Work Phone: [facility] 06-28-2022 influenza, high-dose , quadrivalent vaccine (FLUZONE HIGH DOSE QUADRIVALENT) Luis Manuel Hernandez BINDERY SUPERVISOR.WAREHOUSE SUPERVISOR Work Phone: [facility] Work Phone: 06-28-2022 influenza virus vaccine, unspecified formulation Joe Jiang PA-C Work Phone: [facility] 06-23-2021 influenza, high-dose , quadrivalent vaccine (FLUZONE HIGH DOSE QUADRIVALENT) Bg Chavarria MD Work Phone: [facility] 12-07-2020 Covid (Moderna) Dr. Bg fong MD Work Phone: [facility] 11-10-2020 Covid (Moderna) Dr. Bg fong MD Work Phone: [facility] 07-23-[address] Bg Chavarria MD Work Phone: [facility] 07-23-2020 influenza, high-dose , quadrivalent vaccine (FLUZONE HIGH DOSE QUADRIVALENT) Bg Chavarria MD Work Phone: [facility] 08-14-2019 influenza, high dose seasonal, preservative-free Bg Chavarria MD Work Phone: [facility] Work Phone: 01-05-2019 zoster vaccine recombinant Bg Chavarria MD Work Phone: [facility] 11-03-2018 zoster vaccine recombinant Bg Chavarria MD Work Phone: [facility] 06-26-2018 influenza, high dose seasonal, preservative-free Bg Chavarria MD Work Phone: [facility] Work Phone: 06-26-2018 tetanus toxoid, redu marilee diphtheria toxoid, and acellular pertussis vaccine, adsorbed Bg Chavarria MD Work Phone: [facility] Work Phone: 06-13-2017 influenza, high dose seasonal, preservative-free Bg Chavarria MD Work Phone: [facility] 06-13-2016 influenza, high dose seasonal, preservative-free Bg Chavarria MD Work Phone: [facility] 03-14-2016 pneumococcal polysaccharide vaccine, 23 valent Bg Chavarria MD Work Phone: [facility] 09-13-2015 influenza, high dose seasonal, preservative-free Bg Chavarria MD Work Phone: [facility] 03-14-2015 pneumococcal conjuga te vaccine, 13 valent Bg Chavarria MD Work Phone: [facility] 07-28-2014 influenza, seasonal, injectable Bg Chavarria MD Work Phone: [facility] Work Phone: 09-03-2013 influenza virus vaccine, unspecified formulation Bg Chavarria MD Work Phone: [facility] 07-07-2012 influenza virus vaccine, unspecified formulation Bg Chavarria MD Work Phone: [facility] 07-31-2011 influenza virus vaccine, unspecified formulation Bg Chavarria MD Work Phone: [facility] 07-19-2010 influenza virus vaccine, unspecified formulation Bg Chavarria MD Work Phone: [facility] Work Phone: 09-12-2009 novel [id number], all formulations Bg Chavarria MD Work Phone: [facility] Work Phone: 08-03-2009 zoster vaccine, live Bg york MD Work Phone: [facility] Work Phone: 06-23-2009 influenza virus vaccine, unspecified formulation Bg Chavarria MD Work Phone: [facility] Work Phone: 08-06-2008 influenza virus vaccine, unspecified formulation Bg Chavarria MD Work Phone: [facility] Work Phone: 07-28-2007 influenza virus vaccine, unspecified formulation Bg Chavarria MD Work Phone: [facility] Work Phone: 07-23-2006 influenza virus vaccine, unspecified formulation Bg Chavarria MD Work Phone: [facility] Work Phone: NEGATED: Highlighted row has not occurred!06-29-2023 influenza (HD-IIV4) vaccine, age 65+ yr, high dose, quadrivalent, PF (FLUZONE HIGH-DOSE) Geoffrey Bejarano [facility] Comment on above: Deferred: Patient Re fused Payers Date Payer Category Payer Private Health Insurance [id number] 2024 Self-pay 2024 Unknown [id number] 2021 Private Health Insurance EHP AET NA EHP PLUS RETIREE OVER 65 / EHP Plus CC Retiree Over 65 [id number] 2021-Present [address] [place] [address] PPO [id number] 2021 Private Health Insurance [id number] 2021 Unknown [id number] 2006 Medicare MEDICARE MEDICAR E A AND B [id number] 2006-Present [phone] [address] [address] [place] [address] Medicare [id number] 2006 Medicare [id number] 2006 Medicare [id number] Unknown [id number] Unknown [id number] Unknown [id number] Unknown [id number] Unknown [id number] Unknown [id number] Unknown [id number] Social History Date Type Detail Facility Start: 02-28-2018 End: 05-18-2024 Tobacco smoking status NHIS Ex-smoker [facility] Start: 10-24-2021 End: 03-19-2025 Alcohol intake Current drinker of alcohol (finding) [facility] Start: 10-23-2021 End: 09-14-2022 History SDOH Alcohol Frequency 3 [facility] Start: 10-23-2021 End: 06-28-2022 History SDOH Alcohol Std Drinks 1 [facility] Start: 10-23-2021 End: 09-14-2022 History SDOH Social Connections Phone [address] [facility] Start: 10-23-2021 End: 09-14-2022 History SDOH Financial 5 [facility] Start: 06-02-[address] [facility] Start: 1940 Sex Assigned At Female [facility] Start: 12-16-2021 End: 12-26-2021 Exposure to SARS-CoV-2 (event) Unable to assess [facility] Work Phone: Start: 12-30-2021 End: 06-28-2022 Exposure to SARS-CoV-2 (event) Not sure [facility] Start: 03-05-2022 End: 03-15-2022 Exposure to SARS-CoV-2 (event) Yes [facility] End: 09-30-1992 History of tobacco use Current smoker [facility] Start: 02-28-2018 End: 05-18-2024 Tobacco use and exposure Smokeless tobacco non-user [facility] Start: 09-14-2022 History SDOH Alcohol Frequency 4 [facility] Start: 09-13-2022 End: 02-07-2023 History of Social function [facility] Start: 09-13-2022 End: 02-07-2023 Social connection and isolation panel [facility] Are you now , , , , never or living with a partner? [facility] How often to you hav e a drink containing alcohol? 2-[address] [facility] How many standard drinks containing alcohol do you have on a typical day? [address] [facility] How often do you hav e 6 or more drinks on 1 occasion? Never [facility] Start: 08-31-2012 How hard is it for y ou to pay for the very basics like food, housing, medical care, and heating Not hard at all [facility] Do you feel stress - tense, restless, nervous, or anxious, or unable to sleep at night because your mind is troubled all the time - these days [OSQ] Not at all [facility] (I/We) worried wheth er (my/our) food would run out before (I/we) got money to buy more. Never true [facility] In the past 12 month s, was there a time when you were not able to pay the mortgage or rent on time? No [facility] Start: 06-23-2020 Gender identity Identifies as female gender (finding) [facility] End: 09-30-1992 History of tobacco use Cigarette Smoker [facility] How hard is it for y ou to pay for the very basics like food, housing, medical care, and heating Not very hard [facility] How often to you hav e a drink containing alcohol? 2-[address] [facility] Start: 05-18-2024 Alcohol Comment GLASS OF WINE DAILY/ Intermittent [facility] Start: 02-03-2021 Tobacco Use Tobacco Use [facility] Procedure Code Equipment Code Equipment Origin al Text Equipment Identifier Dates Trident X3 Polyethylene Insert 0deg 36mm Sz D [id number] Start: 02-01-2021 Trident Solidbac k Acetabular Shell Size 48 Mm D [id number] Start: 02-01-2021 Head V40 36mm 0m m Offset Taper Biolox Delta Femoral Hip - [id number] Start: 02-01-2021 Stem Accolade Ii 4 127d Femoral - [id number] Start: 02-01-2021 Head V40 36mm -2 .5mm Offset Taper Biolox Delta Femoral Hip - [id number] Start: 06-27-2023 Shell Trident Ii 52mm E Tritanium Acetabular 5 Screw Hole Cluster Sterile - [id number] Start: 06-27-2023 Screw Trident Ii 6.5mm 25mm Bone Low Profile Hexagonal Sterile - [id number] Start: 06-27-2023 Insert Acetabula r 36mm 0d E X3 Trident Sterile Latex Free - [id number] Start: 06-27-2023 Stem Femoral 101 mm Size 3 Standard Offset Insignia Collared - [id number] Start: 06-27-2023 Use for b12 injection monthly [id number] Start: 12-19-2023 Comment on above: Use for b12 injectio n monthly Goals Date Patient Goal Desired Activity /State Personal health goal Functional Status Date Assessment Result Facility 10-27-2024 Are you deaf, or do you have serious difficulty hearing No 10/27/2024 1:44 PM Jose Ruvalcaba RN No [facility] 10-27-2024 Are you blind, or do you have serious difficulty seeing, even when wearing glasses No 10/27/2024 1:44 PM Jose Ruvalcaba RN No [facility] 10-27-2024 Do you have serious difficulty walking or climbing stairs No 10/27/2024 1:44 PM Jose Ruvalcaba RN No [facility] 10-27-2024 Do you have difficul ty dressing or bathing No 10/27/2024 1:44 PM Jose Ruvalcaba RN No [facility] 10-27-2024 Because of a physica l, mental, or emotional condition, do you have difficulty doing errands alone such as visiting a physician's office or shopping No 10/27/2024 1:44 PM Jose Ruvalcaba, ALEX No [facility] Mental Status Date Assessment Result Facility 05-22-2025 Cognitive function Level Of Cons ciousness Awake;Alert;Appropriate;Fol lows Commands [facility] Work Phone: 10-27-2024 Because of a physica l, mental, or emotional condition, do you have serious difficulty concentrating, remembering, or making decisions No 10/27/2024 1:44 PM Jose Ruvalcaba RN No [facility] Clinical Notes 02-03-2021 to 05-28-2025 Telephone Encounter - Jamie Gregory RN - 05/28/2025 1:04 PM EDTTelephone Encounter - Jamie Gregory RN - 05/28/2025 1:04 PM EDTTelephone Encounter - Jamie Gregory RN - 05/28/2025 8:42 AM EDT Note Date & Type Note Facility 05-28-2025 Telephone encounter Note Phoned pt and given provider's message below with verbalized understanding. Pt agreeable. Pt is driving and states she will call back to schedule f/u appt. [facility] 05-28-2025 Miscellaneous Notes Phoned pt and given provider's message below with verbalized understanding. Pt agreeable. Pt is driving and states she will call back to schedule f/u appt. Recommend she complete lab work and come in for hospital follow-up visit next week. Return to ER for any severe concerning symptoms Phoned pt and given provider's message below with verbalized understanding. Pt reports she has been having very dark stools with every BM since after ER visit on 05/22/25. 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 Reports she does have dizziness sometimes. No abdominal pain. Having leg cramping which makes it difficult for her to sleep. Pt trying to drink enough fluids and a pedialyte daily. Pt reports she has been taking meloxicam for years for joint / arthritis pain for years. No other NSAIDS. Pt will stop taking meloxicam and take tylenol instead. Pt states she will get labs completed today. Asking Luis Manuel to please advise patient. Noted patient feeling better. She does need labs repeated give anemia as well as very high BUN in 80s despite normal creatinine. Wonder about possible GI blood loss contributing to anemia and elevated BUN. UA was okay. Cr was within normal limits as were electrolytes and WBC and platelets. Her Hg dropped to 8 range from 12 range in February. Any signs of GIB bleeding (black tarry stools, bright red blood?) Can get labs first then decide about follow up if does not want to schedule ER follow up yet. My concern is that the elevated BUN may have been due to anemia and that was why BUN high but Cr normal range. Labs ordered. Recommend do in the next week. Recommend GI evaluation if labs confirm anemia and high BUN. If any signs of GIB, needs to stop NSAIDs. Patient calling to let PCP know she was in [facility] ER for dehydration on 05/22/2025. She had been outside painting and just forgot to drink anything. Patient said she is doing fine trying to drink a pedilyte or something similar each day. Patient did not want to schedule an ER follow up appt, said she did not need to do that. Patient said PCP could look at all of lab test results if she wants to do so. documented in this encounter [facility] 05-28-2025 Telephone encounter Note Recommend she complete lab work and come in for hospital follow-up visit next week. Return to ER for any severe concerning symptoms [facility] 05-28-2025 Telephone encounter Note Phoned pt and given provider's message below with verbalized understanding. Pt reports she has been having very dark stools with every BM since after ER visit on 05/22/25. 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 Reports she does have dizziness sometimes. No abdominal pain. Having leg cramping which makes it difficult for her to sleep. Pt trying to drink enough fluids and a pedialyte daily. Pt reports she has been taking meloxicam for years for joint / arthritis pain for years. No other NSAIDS. Pt will stop taking meloxicam and take tylenol instead. Pt states she will get labs completed today. Asking Luis Manuel to please advise patient. [facility] 05-27-2025 Telephone encounter Note Noted patient feeling better. She does need labs repeated give anemia as well as very high BUN in 80s despite normal creatinine. Wonder about possible GI blood loss contributing to anemia and elevated BUN. UA was okay. Cr was within normal limits as were electrolytes and WBC and platelets. Her Hg dropped to 8 range from 12 range in February. Any signs of GIB bleeding (black tarry stools, bright red blood?) Can get labs first then decide about follow up if does not want to schedule ER follow up yet. My concern is that the elevated BUN may have been due to anemia and that was why BUN high but Cr normal range. Labs ordered. Recommend do in the next week. Recommend GI evaluation if labs confirm anemia and high BUN. If any signs of GIB, needs to stop NSAIDs. [facility] 05-25-2025 Telephone encounter Note Patient calling to let PCP know she was in [facility] ER for dehydration on 05/22/2025. She had been outside painting and just forgot to drink anything. Patient said she is doing fine trying to drink a pedilyte or something similar each day. Patient did not want to schedule an ER follow up appt, said she did not need to do that. Patient said PCP could look at all of lab test results if she wants to do so. [facility] 05-22-2025 Radiology Diagnostic study note [facility] Imaging Services [address] [place] [address] [id number] Chest 1 View (Portable) MR#: [id number] Acct: [id number] Name: TANIA ROMERO Rep #: [id number] : 1940 F 84 From: Pet er Peer PCP: Dr. Bg Chavarria MD Status: RE G ER Study:Chest 1 View (Portable) Date of Exam: 05/22/25 Exam# [id number] Ordering Dr: Saman Shipley DO PROCEDURE: CHEST 1 VIEW (PORTABLE) 05/22/2025 REASON FOR EXAM: WEAKNESS Lightheaded and diaphoretic today TECHNIQUE: Frontal view of the chest. COMPARISON: None. FINDINGS: Hardware: None. Heart: Normal size Lungs: Clear and expanded Bones: Unremarkable. No aggressive process. Moderate dextro scoliosis of the lower thoracic spine Other: RAD/Chest 1 View (Portable) IMPRESSION: No acute process detected radiographically [facility] CC: Dr. Bg Chavarria MD; Dr. Uvaldo Shipley DO ~ Preassembler And Inspector: Signed [facility] 05-10-2025 Telephone encounter Note I spoke to Tania Romero and informed them of Peri's response to monitor results and recommendations. Patient voiced understanding. Zuri Payan LPN [facility] 05-10-2025 Miscellaneous Notes I spoke to Tania Nick and informed them of Peri's response to monitor results and recommendations. Patient voiced understanding. Zuri Payan LPN ----- Message from Oxana Darling APRN.CNP sent [...] Rodriguez, as scheduled. Thank you. Oxana Darling APRN.LEAD ATG DEVELOPER documented in this encounter [facility] 05-10-2025 Telephone encounter Note ----- Message from Oxana Darling APRN.CNP sent at 05/07/2025 6:12 PM EDT ----- Please notify patient that of monitor results. Continue with current plan of care for now, she should keep follow up appointment with Dr. Rodriguez, as scheduled. Thank you. Oxana Darling APRN.LEAD ATG DEVELOPER [facility] 05-07-2025 Progress note Formatting of t his note might be different from the original. Please notify patient that of monitor results. Continue with current plan of care for now, she should keep follow up appointment with Dr. Rodriguez, as scheduled. Thank you. Oxana Darling APRN.LEAD ATG DEVELOPER [facility] 04-29-2025 Telephone encounter Note Pcp reviewed and completed pre op for. This was faxed back to Dr. Andrews [facility] 04-29-2025 Miscellaneous Notes Pcp reviewed and completed pre op for. This was faxed back to Dr. Andrews documented in this encounter [facility] 04-20-2025 Evaluation note Diagnosis Onset Date Resolution Aortic valve insufficiency chronic April 20, 2025 1:05pm Mitral regurgitation chronic April 20, 2025 1:05pm SVT (supraventricular tachycardia) chronic April 20, 2025 1:05pm [facility] Work Phone: 1(966) 573-224306-20-2025 NoteHNO ID: [id number] Author: BG CHAVARRIA MD Service: ? Author Type: Physician Type: Progress Notes Filed: 04/11/2025 19:14 Note Text: This note was created using [employer]. Subjective Tania Romero is a 84 year [...] She is planning a 4-day trip to [place] and is concerned about potential health issues [...] (HCC) 01/24/2021 Typical atrial flutter (HCC) 10/27/2024 PAST SURGICAL [...] measurement recorded Estimated elizabeth (more content not included)...[facility]06-20-2025 History of Present illness Narrative* Bg Chavarria MD - 03/19/2025 10:05 AM EDT This note was created using [employer]. Subjective Tania Romero is a 84 year old female. SUBJECTIVE: Tania Romero is a 84-year-old female with a history of DM, hypercholesterolemia, and atrial flutter, presenting for a 4-month follow-up visit. Tania reports no acute issues at this time. She denies experiencing any allergies or recent illnesses. She is currently taking Eliquis, meloxicam, and metoprolol. She reports a recent onset of mildstomach pain, which she attributes to the initiation of Eliquis. The pain was transient and has since resolved. She is taking meloxicam 7.5 mg once daily for arthritis pain, particularly in the lowerback, and has not attempted to discontinue it recently. She has not tried using Tylenol for pain management. She is also taking metoprolol, half a tablet daily, for heart rate control and denies any recent palpitations. She has noticed increased bruising since starting Eliquis. Tania has a history of atrial flutter and underwent a heart ablation procedure, which she reportswas not entirely successful. She is scheduled to wear a heart monitor in mid-March. She denies usingPremarin and takes a probiotic as needed for [...] She is planning a 4-day trip to [place] and is concerned about potential health issues [...] mellitus, without long-term current use of insulin ([facility]) 01/24/2021 Typical atrial flutter ([facility]) 10/27/2024 PAST SURGICAL HISTORY Procedure Laterality Date [...] Abs Lymph 1.00 - 4.00 k/uL 2.49 Moffat% % 9.0 Abs Moffat <0.87 k/uL 0.81 Eosin% % 1.9 Abs [...] metabolic panel. # Paroxysmal SVT (supraventricular tachycardia) (HCC) (I47.10) - Currently managed with metoprolol for [...] this time. Bg Chavarria MD Recording using [employer] software for draft documentation of the visit was discussed with the patient/authorized customer sales representative; all questions welcomed and answered. Patient/authorized customer sales representative agreed to proceed [facility] History of Present illness Narrative* Dav Hayden, RT(R) - 03/18/2025 12:30 PM EDT Radiology Service Progress Note PATIENT [...] Assigned female at . status: : No status:NO. PATIENT RELEVANT IMPLANT DATA REVIEWED: Not Applicable PATIENT PRESENTS WITH AN IMPLANTABLE OR ATTACHED DOCTOR OF VETERINARY MEDICINE: No RADIOLOGY DEPARTMENT: Bone Density PERIPHERAL IV DATA: Not applicable SIGNED BY: RT Lucita(Cody) March 18, 2025 12:24 PM documented in [facility]25 NoteHNO ID: [id number] Author: DAV HAYDEN RT(R) Service: ? Author [...] PATIENT PRESENTS WITH AN IMPLANTABLE OR ATTACHED DOCTOR OF VETERINARY MEDICINE: No RADIOLOGY DEPARTMENT: Bone Density PERIPHERAL IV DATA: Not applicable SIGNED BY: RT Lucita(R) March 18, 2025 12:24 [facility]06-16-2025 Telephone encounter Note* Telephone Encounter - Tori Luz LPN - 03/15/2025 10:38 AM EDT Patient's request for medication is as follows: Requested Prescriptions Pending Prescriptions Disp Refills metoprolol succinate ER (TOPROL XL) 25 mg 24 hr tablet 45 tablet 3 Sig: Take 0.5 tablets by mouth once daily. Patient last seen on 02/15/2025. Prescription(s) as above. Please process accordingly. Tori Luz LPN [facility]06-16-2025 Miscellaneous Notes* Telephone Encounter - Tori Luz LPN - 03/15/2025 10:38 AM EDT Patient's request for medication is as follows: Requested Prescriptions Pending Prescriptions Disp Refills metoprolol succinate ER (TOPROL XL) 25 mg 24 hr tablet 45 tablet 3 Sig: Take 0.5 tablets by mouth once daily. Patient last seen on 02/15/2025. Prescription(s) as above. Please process accordingly. Tori Luz LPN [facility] Instructions* Patient Instructions* Madeleine Jung APRN.SEEMA - 02/25/2025 2:16 PM EDT 1. Skin [...] monitoring for gradual improvement. documented in [facility]-2025 NoteHNO ID: [id number] Author: MADELEINE JUNG APRN.SEEMA Service: ? Author Type: Nurse Practitioner [...] rash. Neurological: Mental Status: (more content not included)...[facility] [facility] 02-25-2025 History of Present illness Narrative* Madeleine Jugn, [facility] - 02/25/2025 2:14 PM EDT Images from the original note were not included. [facility] Subjective Tania Romero is [...] mellitus, without long-term current use of insulin ([facility]) 01/24/2021 Typical atrial flutter ([facility]) 10/27/2024 PAST SURGICAL HISTORY Procedure Laterality Date [...] Insect bite of right thigh, initial encounter (S12.217X) - Erythema and induration present at the [...] Discussed expected course of illness Madeleine Jung APRN.LEAD ATG DEVELOPER and Recording using [employer] software for draft documentation of the visit was discussed with thepatient/authorized customer sales representative; all questions welcomed and answered. Patient/authorized customer sales representative agreed to proceed Disposition The patient was discharged. OTC Medications were advised: Procedures documented in this encounterSt. [facility]05-19-[facility]25 Instructions* Patient Instructions* Oxana Darling APRN.LEAD ATG DEVELOPER - 02/15/2025 4:32 PM EDT We discussed [...] twice daily for stroke prevention. Please check withDoormanur insurance to determine the most affordable option [...] until mid-March to apply the monitor. You canapply it yourself at home, as you have done previously. Instructions will be included with the monitor. - Once the monitoring period is complete, return the device as instructed. We discussed follow-up: - Please schedule a follow-up appointment in approximately 4 months to review your symptoms and theresults of the event monitor. Additional instructions: - If you experience chest pain, shortness of breath, or worsening symptoms, please seek immediate medical attention. - Let us know if you have any questions or concerns via MyChart or by calling the office. documented in this encounterSt. Vincent Hospital05-19-2025 History of Present illness Narrative* Oxana Darling APRN.CNP - 02/15/2025 4:00 PM EDT Images from the original note were not included. [facility] General Cardiology Electrophysiology PRIMARY CARE PHYSICIAN: Bg Chavarria [address] [id number] CHIEF COMPLAINT: Cardiovascular medicine follow-up for arrhythmia. [...] another episode of near syncope at a partybut did not seek medical help. 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 Rodriguez [...] to one per night and has since stoppedtaking it for a couple of days to [...] while on Eliquis, such as hematuria, hematochezia, orepistaxis. Reviewed the monitor results with Dr. Rodriguez, [...] (HCC) 01/24/2021 Typical atrial flutter (HCC) 10/27/2024 PAST SURGICAL [...] -normal sinus rhythm, rightward axis, 65 bpm, TX 130 ms, QRS 68 ms, QT/QTc 392/407 [...] for Dr. Rodriguez or CARMEL. Recording using Bloom[employer] software for draft documentation of the visit was discussed with the patient/authorized customer sales representative; all questions welcomed and answered. Patient/authorized customer sales representative agreed to proceed Oxana Darling APRN.LEAD ATG DEVELOPER Medical Decision Making: Problems: Moderate: 1+ chronic [...] to correct any errors. documented in this encounterSt. [facility] Hospital05-19-2025 NoteHNO ID: [id number] Author: OXANA DARLING APRN.SEEMA Service: ? Author Type: Nurse Practitioner Type: Progress Notes Filed: 02/15/2025 16:46 Note Text: [facility] [place] General Cardiology Electrophysiology PRIMARY CARE PHYSICIAN: Bg Chavarria [address] [place] [address] CHIEF COMPLAINT: Cardiovascular medicine follow-up for arrhythmia. HISTORY OF PRESENT ILLNESS: Ms. Romero is a 84 year old female who presents today for follow-up regarding arrhythmia. Patient with a past medical history significant for vitamin D deficiency/osteopenia, hyperlipidemia, former smoker, type 2 diabetes, multiple sclerosis, and expressive aphasia. She established care with Dr. Rodrgiuez at the end of August 2024. She [...] plans to contact her (more content not included)...[facility] 02-15-2025 NoteHNO ID: [id number] Author: ADALI DURAN MD Service: ? Author [...] findings Adali Duran May 07, 2025 10:08 [facility]05-19-2025 Telephone encounter Note* Telephone Encounter - Beata Rod LPN - 02/15/2025 8:44 AM EDT All faxed back to the number on the form. [facility] Miscellaneous Notes* Telephone Encounter - Beata Rod LPN - 02/15/2025 8:44 AM EDT All faxed back to the number on the form. * Telephone Encounter - Bg Chavarria MD - 02/13/2025 2:10 PM EDT Attached snap shot, completed and signed * Telephone Encounter - Beata Rod LPN - 02/10/2025 3:42 PM EDT Rec'd and to pcp to review. * Telephone Encounter - Nika Joshi RN - 02/10/2025 2:18 PM EDT Oxana calling from [facility] (office of Dr. Mp Haile) and states she will be faxing PCP office a clearance form for provider to complete for an upcoming procedure pt wishes to have. States pt is interested in extractions and dental implants. Nika Joshi RN documented in this encounterSt. [facility] Hospital05-17-2025 Telephone encounter Note * Telephone Encounter - Bg Chavarria MD - 02/13/2025 2:10 PM EDT Attached snap shot, completed and signed [facility] Telephone encounter Note* Telephone Encounter - Beata Rod LPN - 02/10/2025 3:42 PM EDT Rec'd and to pcp to review. [facility] Telephone encounter Note* Telephone Encounter - Nika Joshi RN - 02/10/2025 2:18 PM EDT Oxana calling from [facility] (office of Dr. Mp Haile) and states she will be faxing PCP office a clearance form for provider to complete for an upcoming procedure pt wishes to have. States pt is interested in extractions and dental implants. Nika Joshi RN [facility]-05-[facility] Telephone encounter Note* Telephone Encounter - Josue Fagan APRN.SEEMA - 02/01/2025 12:16 PM EDT Called to discuss post ablation 30-day event [...] Fagan APRN.CNP February 01, 2025 12:[address] [facility] Miscellaneous Notes* Telephone Encounter - Josue Fagan APRN.CNP - 02/01/2025 12:16 PM EDT Called to discuss post ablation 30-day event [...] Fagan APRN.CNP February 01, 2025 12:25 PM documented in this encounterSt. Vincent Hospital04-30-2025 Telephone encounter Note * Telephone Encounter - Rosanna Prajapati RN - 01/27/2025 9:57 AM EDT Pt has upcoming OV 02/15/25 with Peri. Does anything need done with the monitor report at this time? Rosanna Prajapati RN [facility]04-30-[facility] Miscellaneous Notes* Telephone Encounter - Rosanna Prajapati RN - 01/27/2025 9:57 AM EDT Pt has upcoming OV 02/15/25 with Peri. Does anything need done with the monitor report at this time? Rosanna Prajapati RN * Telephone Encounter - Rosanna Prajapati RN - 01/01/2025 8:17 AM EDT 12/30/24 monitor report scanned into Atari for your review. Rosanna Prajapati RN documented in this encounterSt. Vincent Hospital04-04-2025 Telephone encounter Note * Telephone Encounter - Rosanna Prajapati RN - 01/01/2025 8:17 AM EDT 12/30/24 monitor report scanned into Atari for your review. Rosanna Prajapati RN [facility]03-21-2025 NoteHNO ID: [id number] Author: ?, ?, ? Service: ? Author Type: LICENSED NURSE Type: Progress Notes Filed: 12/18/2024 11:32 Note Text: Patient presents for COVID vaccine. Denies any problems at this time. Tolerated injection well. Aliza Bianchi [facility]03-21-2025 History of Present illness Narrative* ALIZA BIANCHI - 12/18/2024 11:31 AM EDT Patient presents for COVID vaccine. Denies any problems at this time. Tolerated injection well. Aliza Bianchi LPN documented in this encounterSt. Vincent Hospital03-04-2025 Instructions* Patient Education - Nitin Burrell RN - 12/01/2024 12:00 PM EST Patient educated on 30 day event monitor, and verbalizes understanding. [facility] Miscellaneous Notes* Patient Education - Nitin Burrell RN - 12/01/2024 12:00 PM EST Patient educated on 30 day event monitor, and verbalizes understanding. documented in this encounterSt. Vincent Hospital03-04-2025 NoteHNO ID: [id number] Author: NITIN BURRELL RN Service: ? Author Type: Registered Nurse Type: Patient Education Filed: 12/01/2024 12:14 Note Text: Patient educated on 30 day event monitor, and verbalizes understanding.[facility]02-21-2025 Instructions* Patient Instructions* Bg Chavarria MD - 11/20/2024 10:22 AM EST - Continue taking your current medications: Fosamax, Eliquis, Metoprolol, Metformin, and Meloxicam as prescribed. - Increase your water intake daily to help with bowel movements. - Add a fiber supplement like Metamucil or Citrucel to your diet to help bulk up stools and preventthem from being too soft. - Monitor your bowel movements and report any significant changes or concerns. - Stay active and maintain good posture to help with scoliosis-related discomfort. - Next appointment is on March 19. - Follow-up appointment scheduled for June. - An additional 4-month checkup appointment will be scheduled for next year. BONE MINERAL DENSITY PATIENT INSTRUCTIONS Bone mineral density testing measures the amount of calcium in certain parts of your bones. This information determines how strong your bones are. The test is used to detect osteoporosis, a disease in which the bone's mineral content and density are low, increasing a person's risk of fractures. Thelumbar spine (lower back) and the hip are [...] your usual activities immediately. documented in this encounterSt. Vincent Hospital02-21-2025 NoteHNO ID: [id number] Author: BG CHAVARRIA MD Service: ? Author Type: Physician Type: Progress Notes Filed: 11/20/2024 12:42 Note Text: This note was created using Parent Media Groupriter. Subjective Tania Romero is a 84 year [...] on apixaban and metoprolol, managed by her charhouse worker. 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 Rodriguez on 10/26/2024. Stroke risk 10/27/2024 Type 2 diabetes mellitus, without long-term current use of insulin ([facility]) 01/24/2021 Typical atrial flutter ([facility]) 10/27/2024 Current Outpatient Medications Medication Sig metoprolol [...] normal. Assessment and P (more content not included)...[facility] 11-20-2024 History of Present illness Narrative* Bg Chavarria MD - 11/20/2024 9:59 AM EST This note was created using Hex[employer]ter. Subjective Tania Romero is a 84 year [...] on apixaban and metoprolol, managed by her charhouse worker. She reports occasional minor palpitations but otherwise feels well. She denies any pain or discomfort at the ablation site. She also reports experiencing lower back pain, which she attributes to her scoliosis. The pain is more pronounced as the day progresses, especially when she is standing or cooking. She notes that thepain is alleviated when she is lying down. [...] her feeling fatigued from Saturday through Saturday. Sheused an OTC cough and cold medication to [...] mellitus, without long-term current use of insulin ([facility]) 01/24/2021 Typical atrial flutter ([facility]) 10/27/2024 Current Outpatient Medications Medication Sig metoprolol [...] (M81.0) - Continue Fosamax; prescription sent to [facility] with instructions to fill when due. [...] and treatment as indicated. documented in this encounterSt. Vincent Hospital02-03-2025 History of Present illness Narrative* Luis Manuel Hernandez APRN.WAREHOUSE SUPERVISOR - 11/02/2024 11:00 AM EST SUBJECTIVE: Advance Directive Discussion due on 09/30/2024 [...] to October 27, 2024. 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 Procedure was tolerated well and [...] Abs Lymph 1.00 - 4.00 k/uL 2.49 Moffat% % 9.0 Abs Moffat <0.87 k/uL 0.81 Eosin% % 1.9 Abs [...] has been taking Eliquis as prescribed. No bleedingdifficulties reported. She is taking 12.5 mg metoprolol succinate daily. Follow-up event monitor has not yet been scheduled. She does have an appointment with cardiology scheduled. Luis Manuel Hernandez APRN.CNS Medical Decision Making: Problems: Moderate: 1+ chronic illnesses with change Data: Unique test result(s) reviewed: 3+ Risk: Moderate: Drug management Medical Decision Making Level: 4 - Moderate documented in this encounterSt. Vincent Hospital02-03-2025 NoteHNO ID: [id number] Author: HERNANDEZ, LUIS MANUEL, BINDERY SUPERVISOR.WAREHOUSE SUPERVISOR Service: ? Author Type: Nurse Specialist Type: [...] once weekly Lactobacillus acidoph (more content not included)...[facility] 10-30-2024 Telephone encounter Note* Telephone Encounter - Josue Fagan APRN.CNP - 10/30/2024 4:21 PM EST Patient underwent ablation of slow pathway as well as typical atrial flutter ablation with Dr. Rodriguez on 10/26/2024. Plan is for 30 days of Eliquis post ablation. As discussed with patient orders placed for 30-day event monitor to be hooked up in 1 month. Follow-up in 3 months in office with Josue Pedroza APRN.CNP October 30, 2024 4:[address] [facility] Miscellaneous Notes* Telephone Encounter - Josue Fagan APRN.CNP - 10/30/2024 4:21 PM EST Patient underwent ablation of slow pathway as well as typical atrial flutter ablation with Dr. Rodriguez on 10/26/2024. Plan is for 30 days of Eliquis post ablation. As discussed with patient orders placed for 30-day event monitor to be hooked up in 1 month. Follow-up in 3 months in office with Josue Pedroza APRN.CNP October 30, 2024 4:25 PM documented in this encounterSt. Vincent Hospital01-16-2025 Telephone encounter Note * Telephone Encounter - Rosanna Prajapati RN - 10/15/2024 11:55 AM EST Pt's name has been added to [facility] [place] procedure board. Rosanna Prajapati RN [facility]01-16-2025 Miscellaneous Notes* Telephone Encounter - Rosanna Prajapati RN - 10/15/2024 11:55 AM EST Pt's name has been added to [facility] procedure board. Rosanna Prajapati RN * Telephone Encounter - Olimpia Herzog - 10/15/2024 11:32 AM EST Patient is scheduled for an SVT Ablation on 10/[address] Rodriguez. The hospital will call the day before between 2-5pm with your arrival time. You should not eat or drink after midnight the day before the procedure. You will need a transporter driver when released from the hospital and you will stay overnight for observation. You should continue to take medications as prescribed the morning of the procedure with just a sip of water but hold Metoprolol 5 days prior H&P morning of Spoke with Tania Romero on October 15, 2024. Informed of instructions as stated above. Patient verbalized understanding. Olimpia Herzog documented in this encounterSt. Vincent Hospital01-16-2025 Telephone encounter Note * Telephone Encounter - Olimpia Herzog - 10/15/2024 11:32 AM EST Patient is scheduled for an SVT Ablation on 10/[address] Rodriguez. The hospital will call the day before between 2-5pm with your arrival time. You should not eat or drink after midnight the day before the procedure. You will need a transporter driver when released from the hospital and you will stay overnight for observation. You should continue to take medications as prescribed the morning of the procedure with just a sip of water but hold Metoprolol 5 days prior H&P morning of Spoke with Tania Romero on October 15, 2024. Informed of instructions as stated above. Patient verbalized understanding. Olimpia Herzog [facility] Instructions* Patient Instructions* Russell Rodriguez MD - 09/24/2024 1:34 PM EST Paroxysmal [...] pathways to the upper left atrium and tothe lower chambers of the heart (the ventricles). Sometimes the electrical signals don t follow thenormal pathways. This may make the heart beat very fast. There are several types of PSVT. The most common type happens to adults in their 20s and 30s. It s more common in women than men. It may happen more often during . People with this type of PSVT almost always have an extra electrical pathway connecting the upper and lower chambers. When theelectrical signal goes down both pathways at the [...] time. The heart goes back to a normalrhythm on its own. If you keep having [...] called a catheter to deliver energy to theinside of the heart. The energy (usually radio [...] healthcare provider's instructions for treatment. Developed by [employer]. Published by [employer]. Copyright 2014 [employer] and/or one of its subsidiaries. All rights reserved. documented in this encounterSt. Vincent Hospital12-26-2024 NoteHNO ID: [id number] Author: RUTH CORBETT MA Service: ? Author Type: Eclectic Doctor Type: Progress Notes Filed: 10/01/2024 11:00 Note Text: Patient denies any cardiac issues or symptoms.[facility] 09-24-2024 History of Present illness Narrative* Ruth Corbett MA - 09/24/2024 1:09 PM EST Patient denies any cardiac issues or symptoms. * Russell Rodriguez MD - 09/24/2024 1:00 PM EST Images from the original note were not included. PRIMARY CARE PHYSICIAN: Bg Chavarria [address] [phone] REFERRING PHYSICIAN: Bg Chavarria [address] [id number] Patient Care Team: Bg Chavarria MD as PCP - General (Internal Medicine) Sincere Hopkins MD as Referring (Orthopedics) Sincere Hopkins MD as Home Care Provider (Orthopedics) Luis Manuel Hernandez APRN.WAREHOUSE SUPERVISOR as Segment Assembler (Internal Medicine) Linda Silva APRN.LEAD ATG DEVELOPER as Segment Assembler (Internal Medicine) CHIEF COMPLAINT: SVT/presyncope HISTORY OF [...] to go to the ER if any recurrence.She subsequently had another episode of near syncope [...] her back and hip and knees. She hashad prior general anesthesia procedures despite diagnosis of [...] mellitus, without long-term current use of insulin ([facility]) 01/24/2021 PAST SURGICAL HISTORY Procedure Laterality Date [...] were rare (<1.0%), SVE Couplets were rare (< 1.0%), and SVE Triplets were rare (<1.0%). Isolated [...] has had recurrent presyncopal episodes and noted tohave PSVT on monitor, we do not have symptom rhythm correlation of the episodes during the monitoring period. However, rates and SVT are fast and she may have 2 different arrhythmias, with a short RPtachycardia and a long RP tachycardia. PLAN AND [...] 03/25/2025). Russell Rodriguez MD documented in this encounterSt. Vincent Hospital12-26-2024 NoteHNO ID: [id number] Author: RUSSELL RODRIGUEZ MD Service: ? Author Type: Physician Type: Progress Notes Filed: 10/01/2024 11:00 Note Text: PRIMARY CARE PHYSICIAN: Bg Chavarria [address] [place] [address] REFERRING PHYSICIAN: Bg Chavarria [address] [facility] [id number] Patient Care Team: Bg Chavarria MD as PCP - General (Internal Medicine) Sincere Hopkins MD as Referring (Orthopedics) Sincere Hopkins MD as Home Care Provider (Orthopedics) Luis Manuel Hernandez APRN.WAREHOUSE SUPERVISOR as Segment Assembler (Internal Medicine) Linda Silva APRN.LEAD ATG DEVELOPER as Segment Assembler (Internal Medicine) CHIEF COMPLAINT: SVT/presyncope HISTORY OF [...] mellitus, without long-term current use of insulin ([facility]) 01/24/2021 PAST SURGICAL HISTORY Procedure Laterality Date [...] ER (TOPROL XL) 25 (more content not included)...[facility]12-18-2024 Telephone encounter Note* Telephone Encounter - Olimpia Herzog - 09/16/2024 11:37 AM EST Spoke to patient, scheduled 09/24 - offered sooner but patient could not make it work with her schedule. Olimpia Herzog [facility]12-18-2024 Miscellaneous Notes* Telephone Encounter - Olimpia Herzog - 09/16/2024 11:37 AM EST Spoke to patient, scheduled 09/24 - offered sooner but patient could not make it work with her schedule. Olimpia Herzog * Telephone Encounter - Lilly Miller RN - 09/15/2024 4:14 PM EST Pt called and is notified of providers results and instructions. Pt voices understanding. Pt states she is ok with going to [place] for appointment with Dr. Ramirez for electrophysiology evaluation and treatment if he can see her sooner. She states she ended up having to cut the dose of her Metoprolol in half because her BP was going low and she felt like she was going to pass out. Shesaid right now she doesn't have a lot of symptoms, but she feels weak and is afraid to go far. [facility] Cardiology wanted her to see an manager developmental because they though the problem was electrical and wanted to see if an ablation would fix the problem and she wouldn't have to stay on the medication. Lilly Miller, RN * Telephone Encounter - Kimmy Fox LPN - 09/15/2024 3:57 PM EST LEFT MESSAGE FOR PATIENT TO CALL OFFICE. * Telephone Encounter - Bg Chavarria MD - 09/13/2024 4:18 PM EST Okay meloxicam refills. Verify she drinks adequate fluid daily, especially on days takes meloxicam for kidney protection. Offer appointment with Dr. Ramirez in [place] for electrophysiology evaluation and treatment. He should be able to see her sooner than next January 2025. If she is fine with [place] [facility] referral, will file the consult order and reach out to him to help facilitate scheduling. Verify what her current heart symptoms are and severity so can pass that along to him. Reviewed that the 14-day event monitor (done for evaluation of syncope) had shown episodes of SVT with one episode max heart rate going up to 215bpm. Noted that [facility] cardiology did echocardiogram (some AV regurgitation note; good leftventricular ejection fraction) and stress test (no inducible ischemia). * Telephone Encounter - Liz Razo RN - 09/11/2024 3:39 PM EST Patient calls to request a referral to electrophysiology with [facility]. She reports that she went to see [facility] and her problem is with the electrical conduction of the heart. [facility] is recommending a referral to manager developmental in [place] but she is not able to get in until January 2025. Patient asking if provider would be willing to place referral [facility] Not sure what to pend for this one. Also needs refill of meloxicam. Last OV: 07/28/2024 Next OV: 11/20/2024 Please review and advise, Liz Razo RN documented in this encounterSt. Vincent Hospital12-17-2024 Telephone encounter Note * Telephone Encounter - Lilly Miller RN - 09/15/2024 4:14 PM EST Pt called and is notified of providers results and instructions. Pt voices understanding. Pt states she is ok with going to [place] for appointment with Dr. Ramirez for electrophysiology evaluation and treatment if he can see her sooner. She states she ended up having to cut the dose of her Metoprolol in half because her BP was going low and she felt like she was going to pass out. Shesaid right now she doesn't have a lot of symptoms, but she feels weak and is afraid to go far. [facility] Cardiology wanted her to see an manager developmental because they though the problem was electrical and wanted to see if an ablation would fix the problem and she wouldn't have to stay on the medication. Lilly Miller, RN [facility]12-17-[facility] Telephone encounter Note* Telephone Encounter - Kimmy Fox LPN - 09/15/2024 3:57 PM EST LEFT MESSAGE FOR PATIENT TO CALL OFFICE. [facility] Telephone encounter Note* Telephone Encounter - Bg Chavarria MD - 09/13/2024 4:18 PM EST Okay meloxicam refills. Verify she drinks adequate fluid daily, especially on days takes meloxicam for kidney protection. Offer appointment with Dr. Ramirez in [place] for electrophysiology evaluation and treatment. He should be able to see her sooner than next January 2025. If she is fine with [facility] referral, will file the consult order and reach out to him to help facilitate scheduling. Verify what her current heart symptoms are and severity so can pass that along to him. Reviewed that the 14-day event monitor (done for evaluation of syncope) had shown episodes of SVT with one episode max heart rate going up to 215bpm. Noted that [facility] cardiology did echocardiogram (some AV regurgitation note; good leftventricular ejection fraction) and stress test (no inducible ischemia). [facility]12-13-2024 Telephone encounter Note* Telephone Encounter - Liz Razo RN - 09/11/2024 3:39 PM EST Patient calls to request a referral to electrophysiology with [facility]. She reports that she went to see [facility] and her problem is with the electrical conduction of the heart. [facility] is recommending a referral to manager developmental in [place] but she is not able to get in until January 2025. Patient asking if provider would be willing to place referral to see what would be available withinF. Not sure what to pend for this one. Also needs refill of meloxicam. Last OV: 07/28/2024 Next OV: 11/20/2024 Please review and advise, Liz Razo RN [facility]12-07-2024 Telephone encounter Note* Telephone Encounter - Beata Rod LPN - 09/05/2024 11:40 AM EST Pt was last seen 07/28/24. Next appt with pcp 11/20/23. [facility]12-07-2024 Miscellaneous Notes* Telephone Encounter - Beata Rod LPN - 09/05/2024 11:40 AM EST Pt was last seen 07/28/24. Next appt with pcp 11/20/23. * Telephone Encounter - Dom Benavides [facility] - 09/04/2024 8:04 AM EST Pharmacist Managed Refill Encounter Name: Tania Romero Refill authorization request(s) received and reviewed under effective consult agreement. The patient consented to the pharmacy service and agreed to allow medications to be collaboratively managed bythe pharmacist. The patient may decline or cancel [...] duration of therapy) necessary for pharmacist approval, routedto provider for review. # of refills routed in this encounter: 1 # of refills approved in this encounter: 0 Dom Benavides RPh documented in this encounterSt. [facility]12-[facility]24 Telephone encounter Note * Telephone Encounter - Dom Benavides RPh - 09/04/2024 8:04 AM EST Pharmacist Managed Refill Encounter Name: Tania Romero Refill authorization request(s) received and reviewed under effective consult agreement. The patient consented to the pharmacy service and agreed to allow medications to be collaboratively managed bythe pharmacist. The patient may decline or cancel [...] duration of therapy) necessary for pharmacist approval, routedto provider for review. # of refills routed in this encounter: 1 # of refills approved in this encounter: [address] [facility]10-31-2024 Telephone encounter Note* Telephone Encounter - Antonino Reyes RN - 07/30/2024 6:53 PM EDT OV today with Linda Silva SENIOR BIOSTATISTICIAN/GROUP LEADER. Antonino Reyes RN [facility]10-31-2024 Miscellaneous Notes* Telephone Encounter - Antonino Reyes RN - 07/30/2024 6:53 PM EDT OV today with Lnida Silva SENIOR BIOSTATISTICIAN/GROUP LEADER. Antonino Reyes, RN * Telephone Encounter - Montana Esparza LPN - 07/30/2024 2:25 PM EDT Left a message for pt to call the office and ask to speak to a nurse. Montana Esparza LPN * Telephone Encounter - Montana Esparza LPN - 07/30/2024 2:03 PM EDT ----- Message from Luis Manuel Lopez APRN.WAREHOUSE SUPERVISOR sent at 07/28/2024 7:56 AM EDT ----- Please let her know that her preliminary Zio result shows primarily normal sinus rhythm but also had SVT episodes. This may well be cause of presyncope symptoms. Will add metoprolol succinate 25 mg daily. Rx to [facility]. She has an echocardiogram and cardiology appointment scheduled. Recommend ER for any severe or concerning symptoms. She has an OV today with Linda Silva CNP. documented in this encounterSt. [facility] Hospital10-31-2024 Telephone encounter Note * Telephone Encounter - Montana Esparza LPN - 07/30/2024 2:25 PM EDT Left a message for pt to call the office and ask to speak to a nurse. Montana Esparza LPN [facility]10-31-2024 Telephone encounter Note* Telephone Encounter - Montana Esparza LPN - 07/30/2024 2:03 PM EDT ----- Message from Luis Manuel Lopez APRN.CNS sent at 07/28/2024 7:56 AM EDT ----- Please let her know that her preliminary Zio result shows primarily normal sinus rhythm but also had SVT episodes. This may well be cause of presyncope symptoms. Will add metoprolol succinate 25 mg daily. Rx to [facility]. She has an echocardiogram and cardiology appointment scheduled. Recommend ER for any severe or concerning symptoms. She has an OV today with Linda Silva CNP. [facility]10-29-2024 Telephone encounter Note* Telephone Encounter - Linda Silva APRN.CNP - 07/28/2024 11:09 AM EDT Seen in office today and discussed. [facility]10-29-2024 Miscellaneous Notes* Telephone Encounter - Linda Silva APRN.CNP - 07/28/2024 11:09 AM EDT Seen in office today and discussed. * Telephone Encounter - Danielle Bustamante MD - 07/27/2024 7:04 PM EDT I was paged for a critical result [...] patient for paroxysmal SVT. documented in this encounterSt. Vincent Hospital10-29-2024 NoteHNO ID: [id number] Author: LINDA SILVA APRN.CNP Service: ? Author Type: Nurse Practitioner [...] and labs. Planning to do this with [facility]. Consulted to cardiology. Planning to see cardiology with [facility] in July. Recent zio showed [...] ACTIVE PROBLEM LIST Paroxysmal Svt (Supraventricular Tachycardia) (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) - 06/24/2023 Trochanteric Bursitis of Right Hip - 02/08/2023 Vitamin D Deficiency - 03/04/2022 Elevated Ldl Cholesterol Level - 03/04/2022 Colon Cancer Screening - 03/04/2022 Type 2 Diabetes Mellitus, Without Long-Term Current Use of Insulin (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) - 05/31/2016 Low Vitamin B12 Level Family [...] Psychiatric: Attention and Perception: (more content not included)...[facility]10-29-2024 History of Present illness Narrative* Linda Silva APRN.LEAD ATG DEVELOPER - 07/28/2024 10:54 AM EDT SUBJECTIVE Tania Romero is a 83 year old female here today for a check up on her medical problems. Chief Complaint Patient presents with: Recheck HPI Tania Romero is a 83 year old female. She is an established patient of Bg Chavarria MD. [facility] for follow up. Still following with ortho, s/p right hip replacement. Labs show stable DM. Was recently seen with Luis Manuel. Had some dizziness issues. Set up with ZIO monitoring, Stress ECHO ordered and labs. Planning to do this with [facility]. Consulted to cardiology. Planning to see cardiology with [facility] in July. Recent zio showed [...] ACTIVE PROBLEM LIST Paroxysmal Svt (Supraventricular Tachycardia) (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) - 06/24/2023 Trochanteric Bursitis of Right Hip - 02/08/2023 Vitamin D Deficiency - 03/04/2022 Elevated Ldl Cholesterol Level - 03/04/2022 Colon Cancer Screening - 03/04/2022 Type 2 Diabetes Mellitus, Without Long-Term Current Use of Insulin (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) - 05/31/2016 Low Vitamin B12 Level Family [...] appointment.. Linda Silva APRN-SEEMA documented in this encounterSt. Vincent Hospital10-28-2024 Telephone encounter Note * Telephone Encounter - Danielle Bustamante MD - 07/27/2024 7:04 PM EDT I was paged for a critical result [...] blocking drugs with patient for paroxysmal SVT. [facility] Work Phone: [phone] History of Present illness Narrative* Sincere Hopkins MD - 07/13/2024 10:20 AM EDT Orthopaedic Office Note: History/Subjective: Tania Romero is [...] arthroplasty components with no signs of loosening orlucencies in the acetabular femoral component. There is [...] which included preparing to see the patient, [id number] patient care, completing clinical documentation, obtaining and/or reviewing separately obtained history, performing a medically appropriate examination, counseling and educating the patient/family/caregiver, and care coordination (not separately reported). Sincere Hopkins MD Associate Staff Physician [facility] Department of Orthopedic Surgery documented in this encounterSt. Vincent Hospital10-14-2024 NoteHNO ID: [id number] Author: SINCERE HOPKINS MD Service: ? Author [...] which included preparing to see the patient, [id number] patient care, completing clinical documentation, obtaining and/or reviewing separately obtained history, performing a medically appropriate examination, counseling and educating the patient/family/caregiver, and care coordination (not separately reported). Sincere Hopkins MD Associate Staff Physician [facility] History of Present illness Narrative* Olimpia Lei Tech - 07/13/2024 9:50 AM EDT Radiology Service Progress Note PATIENT NAME: [...] PATIENT PRESENTS WITH AN IMPLANTABLE OR ATTACHED DOCTOR OF VETERINARY MEDICINE: No RADIOLOGY DEPARTMENT: General X-ray: Exam(s) Completed: Pelvis X-Ray: Pelvis with Hip Right and Wt.Bearing PERIPHERAL IV DATA: Not applicable SIGNED BY: Jonah Jennings July 13, 2024 10:29 AM documented in this encounterSt. Vincent Hospital10-14-2024 NoteHNO ID: [id number] Author: OLIMPIA LEI Tech Service: ? Author Type: Animal Geneticist Type: Progress Notes Filed: 07/13/2024 10:30 Note [...] PATIENT PRESENTS WITH AN IMPLANTABLE OR ATTACHED DOCTOR OF VETERINARY MEDICINE: No RADIOLOGY DEPARTMENT: General X-ray: Exam(s) Completed: Pelvis X-Ray: Pelvis with Hip Right and Wt. Bearing PERIPHERAL IV DATA: Not applicable SIGNED BY: Jonah Jennings July 13, 2024 10:29 AMMagruder Memorial [id number] Nurse Note* Ava Peterson LPN - 07/06/2024 12:32 PM EDT EVENT MONITOR DISPOSABLE PATCH INSTRUCTIONS Patient Name: Tania Romero [facility] Number: [id number] Skin prepped and cleansed with alcohol Patch secured to prepped area Monitor Activated Serial #: [id number] Patient Instructed: Prescribed order timeframe Bathing guidelines Usage of event button and diary documentation Return of monitor at the end of prescribed order Call with problems [phone] or [phone]. [phone] Patient expresses a good understanding of instructions Ava Peterson LPN [facility]10-07-2024 Nurse Note* Ava Peterson LPN - 07/06/2024 12:32 PM EDT EVENT MONITOR DISPOSABLE PATCH INSTRUCTIONS Patient Name: Tania Romero [facility] Number: [id number] Skin prepped and cleansed with alcohol Patch secured to prepped area Monitor Activated Serial #: [id number] Patient Instructed: Prescribed order timeframe Bathing guidelines Usage of event button and diary documentation Return of monitor at the end of prescribed order Call with problems [phone] or [phone]. [phone] Patient expresses a good understanding of instructions Ava Peterson LPN documented in this encounterSt. Vincent Hospital10-07-2024 History of Present illness Narrative* Luis Manuel Hernandez APRN.WAREHOUSE SUPERVISOR - 07/06/2024 10:20 AM EDT SUBJECTIVE: Depression Screening Never done Anxiety Screening [...] go to ER if any recurrence. She wasseen by Bg Chavarria MD May 18. At [...] She recommended additional workup if episodes persist includingheart monitor. Advised use for instructed to monitor heart rate during episodes. Advised to maintain hydration and increase sodium intake. Seen by [facility] for preoperative evaluation 2020, stress [...] throat tightness, shortness of breath, not sure ifassociated palpitations. She notes recently happened at [place], symptoms past with lying down. She notes trying to maintain hydration which does seem to help somewhat. Home BP/HR: no recent checks.Did not get a fitness tracker. Currently following with [facility]: only for pre-operative clearance 2020, [...] MS flare symptoms. Neurologist: Previously followed at [facility], Dr Andrea Dobbins. No current neurologist [...] mellitus, without long-term current use of insulin ([facility]) 01/24/2021 Social History Tobacco Use Smoking status: [...] Abs Lymph 1.00 - 4.00 k/uL 1.00 Moffat% % 9.3 Abs Moffat <0.87 k/uL 0.82 Eosin% % 3.6 Abs [...] has happened several times since she was lasthere.Sensation that she is going to pass out but does not with lying down and resting. Risk factorsheart disease: She is a former smoker with type 2 diabetes elevated cholesterol postmenopausal withMS. - ECG COMPLETE - OUTSIDE VENDOR CARDIAC [...] elevate your feet when seated. Luis Manuel Hernandez, BINDERY SUPERVISOR.WAREHOUSE SUPERVISOR Medical Decision Making: Problems: Moderate: 1+ chronic illnesses with change Data: Unique test(s) ordered: 3+ Risk: Moderate: Drug management Medical Decision Making Level: 4 - Moderate documented in this encounterSt. [facility] Hospital10-07-2024 NoteHNO ID: [id number] Author: LUIS MANUEL HERNANDEZ APRN.CNS Service: ? [...] hydration and increase sodium intake. Seen by [facility] for preoperative evaluation 2020, stress [...] get a fitness tracker. Currently following with [facility]: only for pre-operative clearance 2020, [...] MS flare symptoms. Neurologist: Previously followed at [facility], Dr Andrea Dobbins. No current neurologist [...] left side. Heart sounds (more content not included)...[facility]10-07-2024 NoteHNO ID: [id number] Author: SHAHZAD SINGLETON MD Service: ? Author [...] for Supraventricular Tachycardia met - Notified [facility] on 27 Jul 2024 at 6:[address] (KR).[facility]10-03-2024 Telephone encounter Note* Telephone Encounter - Bg Chavarria MD - 07/02/2024 10:01 PM EDT See MyChart reply [facility]10-03-2024 Miscellaneous Notes* Telephone Encounter - Bg Chavarria MD - 07/02/2024 10:01 PM EDT See MyChart reply documented in this encounterSt. Vincent Hospital08-19-2024 Instructions* Patient Instructions* Bg Chavarria MD - 05/18/2024 10:45 AM EDT -Monitor your hydration levels and aim to consume 6-8 cups of non-caffeinated fluids daily, such aswater or electrolyte drinks like Gatorade. - Consider [...] back sooner if needed. documented in this encounterSt. Vincent Hospital08-19-2024 NoteHNO ID: [id number] Author: BG CHAVARRIA MD Service: ? Author Type: Physician Type: Progress Notes Filed: 05/18/2024 10:46 Note Text: This note was created using [employer] Media Groupriter. Subjective Tania Romero is a 83 year [...] Head: Normocephalic. Eyes: Conju (more content not included)...[facility]08-19-2024 History of Present illness Narrative* Bg Chavarria MD - 05/18/2024 10:10 AM EDT This note was created using [employer]. Subjective Tania Romero is a 83 year old female. Patient presents with: Established Patient: Follow up lightheaded and chest pain SUBJECTIVE: Tania Romero is a 83 year old year old lady here today for follow up appointment for review of medical conditions. Patient is an 83-year-old female presenting for follow-up on recent episodes of lightheadedness andchest pain. Patient reports two recent episodes of lightheadedness and chest pain that were different from her previous experiences. She has a long history of similar episodes, which she previously at tributed to dehydration or low blood sugar and managed by drinking fluids or eating. However, theserecent episodes were more severe and occurred under [...] time she had ever passed out during suchan episode. The second episode occurred while grocery [...] water. She reports that her heart rate increasesduring these episodes, and she sometimes feels hot [...] Low vitamin B12 level 05/31/2016: Multiple sclerosis ([facility]) No date: Osteopenia 01/24/2021: Type 2 diabetes mellitus, without long-term current use of insulin ([facility]) Current Outpatient Medications Medication Sig alendronate (FOSAMAX) [...] the date of the service which included [id number] patient care, completing clinical documentation, obtaining and/or reviewing separately obtained history, performing a medically appropriate examination, and counseling and educating the patient/family/caregiver. Bg Chavarria MD documented in this encounterSt. [facility] Hospital08-12-2024 Telephone encounter Note * Telephone Encounter - NicholasAva rivers LPN - 05/11/2024 10:42 AM EDT Spoke with patient regarding the lightheadedness and upper chest pain. Patient stated [facility] was called but she did not go [...] an appointment next Saturday with Dr. Chavarria. [facility]08-12-2024 Miscellaneous Notes* Telephone Encounter - Ava Peterson LPN - 05/11/2024 10:42 AM EDT Spoke with patient regarding the lightheadedness and [...] Saturday with Dr. Chavarria. documented in this encounterSt. Vincent Hospital08-08-2024 NoteHNO ID: [id number] Author: LORENA JACOBSEN MD Service: ? Author [...] which included preparing to see the patient, [id number] patient care, completing clinical documentation, obtaining and/or reviewing separately obtained history, performing a medically appropriate examination, counseling and educating the patient/family/caregiver, and care coordination (not separately reported). Lorena Jacobsen MD Orthopaedic SurgeryPark[facility]08-[facility] History of Present illness Narrative* Lorena Jacobsen MD - 05/07/2024 2:44 PM EDT Orthopaedic Office Note: History/Subjective: Tania Romero is s/p b/l THAs previously Here for checkup, had fall on L knee Wanted to have hip checked Some knee swelling, otherwise pain almost completely subsided Imaging: Well appearing b/l THAs no complication Physical Examination: Both hips excellent ROM No pain with hip ROM Neg [facility] Prepatellar bursal swelling, L knee only No [...] which included preparing to see the patient, [id number] patient care, completing clinical documentation, obtaining and/or reviewing separately obtained history, performing a medically appropriate examination, counseling and educating the patient/family/caregiver, and care coordination (not separately reported). Lorena Jacobsen MD Orthopaedic Surgery documented in this encounterSt. Vincent Hospital08-08-2024 History of Present illness Narrative* Zuri Red Tech - 05/07/2024 1:30 PM EDT Radiology Service Progress Note PATIENT [...] PATIENT PRESENTS WITH AN IMPLANTABLE OR ATTACHED DOCTOR OF VETERINARY MEDICINE: No RADIOLOGY DEPARTMENT: General X-ray: Exam(s) Completed: Pelvis X-Ray: Pelvis with Hip Left and Wt. Bearing PERIPHERAL IV DATA: Not applicable SIGNED BY: Jonah Henderson May 07, 2024 1:35 PM documented in this encounterSt. Vincent Hospital08-08-2024 NoteHNO ID: [id number] Author: ZURI RED Tech Service: Radiology Author Type: Animal Geneticist Type: Progress Notes Filed: 05/07/2024 13:36 Note [...] PATIENT PRESENTS WITH AN IMPLANTABLE OR ATTACHED DOCTOR OF VETERINARY MEDICINE: No RADIOLOGY DEPARTMENT: General X-ray: Exam(s) Completed: Pelvis X-Ray: Pelvis with Hip Left and Wt. Bearing PERIPHERAL IV DATA: Not applicable SIGNED BY: Jonah Henderson May 07, 2024 1:35 PMMagruder Memorial [id number] Telephone encounter Note* Telephone Encounter - Bg Chavarria MD - 05/02/2024 6:29 PM EDT See MyChart reply [facility]08-03-2024 Miscellaneous Notes* Telephone Encounter - Bg Chavarria MD - 05/02/2024 6:29 PM EDT See MyChart reply * Telephone Encounter - Bg Chavarria MD - 04/27/2024 11:10 PM EDT See MyChart reply documented in this encounterSt. Vincent Hospital08-02-2024 History of Present illness Narrative* Joe Jiang PA-C - 05/01/2024 8:17 AM EDT HISTORY OF PRESENT ILLNESS: Tania is a 83 year old female. She is here for follow up of Left knee pain. Patient reports a fall in mid February when she missed a step into her garage and had direct impact on the left knee over [facility]. She reports that the anterior portion of [...] but more of a pressure sensation in theknee. She reports this to be a 2 out of 10 in severity. Denies any numbness or tingling to the leftlower extremity. No additional injuries, trauma, falls. MEDICATIONS [...] full extension, internal/external rotation adequate, and no painwith log roll Neurovascular Status: Sensation Intact, Moves [...] which included preparing to see the patient, [id number] patient care, completing clinical documentation, obtaining and/or reviewing separately obtained history, performing a medically appropriate examination, counseling and educating the pat ient/family/caregiver, and care coordination (not separately reported). PROCEDURE: Procedures Joe Jiang PA-C * Carmen Cabrera MA - 05/01/2024 8:01 AM EDT AMB ROOMING INTAKE FLOWSHEET DATA Pain Pain [...] two after the injury. Knee started swelling recently.Has been taking meloxicam. X-ray taken on 03/31/2024. documented in this encounterSt. [facility] Hospital07-29-2024 Telephone encounter Note * Telephone Encounter - Bg Chavarria MD - 04/27/2024 11:10 PM EDT See MyChart reply [facility]07-02-2024 History of Present illness Narrative* Nahed Madrigal, RT(R) - 03/31/2024 10:00 AM EDT Radiology Service Progress Note PATIENT NAME: [...] PATIENT PRESENTS WITH AN IMPLANTABLE OR ATTACHED DOCTOR OF VETERINARY MEDICINE: No RADIOLOGY DEPARTMENT: General X-ray: Exam(s) Completed: Lower Extremity X- Ray(s): Knee, AP / Lat / Tunne / Merchant Left and Wt. Bearing PERIPHERAL IV DATA: Not applicable SIGNED BY: RT Mariluz(R) March 31, 2024 10:25 AM documented in this encounterSt. Vincent Hospital07-02-2024 History of Present illness Narrative* Bg Chavarria MD - 03/31/2024 9:18 AM EDT Images from the original note were not included. This note was created using [employer]. Subjective Tania Romero is a 83 year [...] garden and landed on other side on . Beginning of February fell when passed out while sitting on a stool at a [employer] after a couple drinks. Pharr like was going to pass out but could not lay head down fast enough. Fell backwards. Does get salt in diet. Trying to drink enough water but sometimes does not. Able to walk and knee okay. 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 Vasquez (worse from 2011 to 2012) Low vitamin B12 level Multiple sclerosis ([facility]) 05/31/2016 Osteopenia Type 2 diabetes mellitus, without long-term current use of insulin ([facility]) 01/24/2021 Current Outpatient Medications Medication Sig alendronate [...] indicated. Bg Chavarria MD documented in this encounterSt. [facility] Hospital07-01-2024 Telephone encounter Note * Telephone Encounter - Kimberly Garcia LPN - 03/30/2024 5:52 PM EDT Patient scheduled for OV on 03/31/24 with PCP to assess patient post fall. Kimberly Garcia LPN [facility]07-01-2024 Miscellaneous Notes* Telephone Encounter - Kimberly Garcia LPN - 03/30/2024 5:52 PM EDT Patient scheduled for OV on 03/31/24 with PCP to assess patient post fall. Kimberly Garcia LPN documented in this encounterSt. [facility] Hospital06-25-[facility]24 History of Present illness Narrative* Linda Silva APRN.LEAD ATG DEVELOPER - 03/24/2024 2:54 PM EDT SUBJECTIVE Tania Romreo is a 83 year old female here today for a check up on her medical problems. Chief Complaint Patient presents with: 4 month follow up HPI Tania Romero is a 83 year old female. She is an established patient of Bg Chavarria MD. [facility] for a routine 4 month follow up. She had labs done. History of DM, arthritis, chronic back pain, elevated LDL cholesterol and vitamin d def. Labs were overall stable. No issues with chest pain,chest tightness or shortness of breath. Trying to [...] Smoker - 06/26/2023 Si (Sacroiliac) Joint Inflammation (Hcc) - 06/24/2023 Trochanteric Bursitis of Right Hip - 02/08/2023 Vitamin D Deficiency - 03/04/2022 Elevated Ldl Cholesterol Level - 03/04/2022 Colon Cancer Screening - 03/04/2022 Type 2 Diabetes Mellitus, Without Long-Term Current Use of Insulin (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) - 05/31/2016 Low Vitamin B12 Level Family [...] appointment.. Linda Silva APRN-SEEMA documented in this encounterSt. [facility] Hospital06-14-2024 Telephone encounter Note * Telephone Encounter - Omar Herbert [facility] - 03/13/2024 12:00 PM EDT Pharmacist Refill Authorization Review Name: Tania [...] in this department: 01/30/2024 Luis Manuel Hernandez APRN.WAREHOUSE SUPERVISOR Next appointment in this department: 03/17/2024 Bg Chavarria MD The medication(s) fall under the following categories: Category 1 (Metformin): No barriers to continued therapy exists and patient is up to date with provider visits. Prescription(s) issued as below. Category 3 (Alendronate): Medication(s) does not qualify for pharmacist renewal due to condition ordiagnosis excluded from collaborative practice agreement: osteopenia. Renewal [...] Authorizing Provider: BG CHAVARRIA Ordering User: OMAR HERBERT Number of refills approved in this encounter: 1 Number of refills forwarded to provider for review: 1 Number of refills denied in this encounter: [address] [facility]06-14-[facility]24 Miscellaneous Notes* Telephone Encounter - Omar Herbert RPh - 03/13/2024 12:00 PM EDT Pharmacist Refill Authorization Review Name: Tania [...] in this department: 01/30/2024 Luis Manuel Hernandez APRN.WAREHOUSE SUPERVISOR Next appointment in this department: 03/17/2024 Bg Chavarria MD The medication(s) fall under the following categories: Category 1 (Metformin): No barriers to continued therapy exists and patient is up to date with provider visits. Prescription(s) issued as below. Category 3 (Alendronate): Medication(s) does not qualify for pharmacist renewal due to condition ordiagnosis excluded from collaborative practice agreement: osteopenia. Renewal [...] Authorizing Provider: BG CHAVARRIA Ordering User: OMAR HERBERT Number of refills approved in this encounter: 1 Number of refills forwarded to provider for review: 1 Number of refills denied in this encounter: 0 Omar Herbert RPh documented in this encounterSt. [facility] Hospital06-14-2024 Telephone encounter Note * Telephone Encounter - Bernadine Cardoso RPh - 03/13/2024 11:57 AM EDT Pharmacist Refill Authorization Review Name: [...] in this encounter: [address] [facility]-14-[facility]24 Miscellaneous Notes* Telephone Encounter - Bernadine Cardoso RPh - 03/13/2024 11:57 AM EDT Pharmacist Refill Authorization Review Name: [...] 0 Bernadine Cardoso RPh documented in this encounterSt. Vincent Hospital05-02-2024 History of Present illness Narrative* Luis Manuel Hernandez APRN.WAREHOUSE SUPERVISOR - 01/30/2024 1:00 PM EDT Telemedicine Evaluation for COVID-19 Infection MyChart Zoom Video Visit was used for evaluation of this patient. I have communicated my name and active licensure. The patient's identity and physical location wereverified at the time of this visit. Either the patient or their legal customer sales representative has been informed of the risks and benefits of -- and alternatives to -- treatment through a remote evaluation andconsents to proceed with the evaluation remotely. SUBJECTIVE [...] 20 min in visit documented in this encounterSt. Vincent Hospital05-02-2024 Instructions* Patient Instructions* Luis Manuel Hernandez APRN.CNS - 01/30/2024 12:41 PM EDT Images from the original note were not included. How to Protect Yourself & Others from COVID-19 In addition to basic health and hygiene practices, like handwashing, CDC recommends some preventionactions at all COVID-19 hospital admission levels, which [...] you if you are infected with the virusthat causes COVID-19. If you have COVID-19 symptoms, [...] fitting closely on the face to filter outparticles, including the virus that causes COVID-19. They can also block droplets and particles youbreathe, cough, or sneeze out so you do [...] crowded areas, or keep distance between yourself andothers. These actions also protect people who are at high risk for getting very sick from COVID-19 in settings where there are multiple risks for exposure. How to Manage Common Symptoms Associated with COVID for Adults Fever- Fever is a temperature over 100.4 F and can occur when the body is fighting an infection. Tohelp treat a fever: Drink plenty of fluids [...] your chest such as Vicks, which can helpreduce cough. Try cough drops. Avoid smoking and other strong odors or perfumes. Try breathing exercises to keep your lungs open and clear. Take a big deep breath through your noseand hold for 5 seconds before slowly releasing. [...] of water every 10-15 minutes and increase astolerated. You can try sucking an ice cube [...] you with PAXLOVID for the treatment of dccp-dr-kgtsjdsp coronavirus disease (COVID-19) caused by the SARS-CoV-2 virus. This Fact Sheet contains information to help you understand the risks and benefits of taking the PAXLOVID you may receive. This Fact Sheet also contains information about how t o take PAXLOVID and how to report side effects or problems with the appearance or packaging of PAXLOVID. The U.S. Food and Drug Administration (FDA) has issued an Emergency Use Authorization (EUA) to makePAXLOVID available for the treatment of utve-eh-aapvxlaj COVID-19 in adults and children 12 years [...] virus. COVID-19 illnesses have ranged from very cxdz-um-mxussu, including illness resulting in . While information [...] available under EUA for the treatment of tvmc-gr-wooyhcpv COVID-19 in adults and children 12 years of age and older weighing at least 88 pounds (40 kg) who are at high risk for progression to severe COVID-19, including hospitalization or . Although PAXLOVID is FDA- approved for the treatment of COVID-19 in certain adults (see section What other treatment choicesare there?), PAXLOVID use in children remains investigational because it is still being studied. There is limited information about the safety and effectiveness of using PAXLOVID to treat children with touj-zn-qnpexjxt COVID-19. What is the most important information [...] o ranolazine o rifampin o rifapentine o Baird s Wort (hypericum perforatum) o sildenafil (Revatio [...] the medicines you take, including prescription and jdpx-rpk-phmnaqf medicines, vitamins, and herbal supplements. Your healthcare [...] morning or evening, depending on when you sheepskin pickler your prescription, or as your healthcare provider [...] PAXLOVID is FDA-approved for the treatment of yzlw-hh-godwfzjo COVID-19 in certain adults; however,there are not sufficient quantities of the approved presentations (i.e., dose packs) of PAXLOVID atthis time. This EUA continues to authorize the emergency use of PAXLOVID for the approved patient population to ensure continued access in order to meet the public health need. VEKLURY (remdesivir) is FDA-approved for the treatment of rduu-lt-qidjqukj COVID-19 in certain adults and children. Talk with your healthcare provider to see if VEKLURY is appropriate for you. For information on the emergency use of other medicines that are authorized by FDA to treat people with COVID-19, please go to https://www.fda.gov/jilrdnsfy-kaddvcilkrtn-lzm-response/jjr-nsbnu-obmfjzr dxg-hgv-pnuvwo-framework/ezlrzttzd-rxd-uatuueknrxknn. Your healthcare provider may talk with you [...] examples of PAXLOVID Dose Packs) to FDA LiveRe at www.fda.gov/medwatch or call 7-936-ARN-5536 or you can report side effects to [employer]. at the contact information provided below. How [...] bottom of blister pack at this website: https://www.paxlovidlotexShanghai [employer].Pyrolia/ or talk with your healthcare provider. Information onthe authorized shelf-life extensions for PAXLOVID may also be found at https://www.fda.gov/emergency -insfojlsmsxr-wwa-joemxiog/wfr-hkxef-ycppnemjsr-mkx-elkjbe-ttyxbhicg/expiration- dating-extension. How can I learn more about COVID-19? Ask your healthcare provider. Visit https://www.cdc.gov/COVID19. Contact your local or state public health department. What is an Emergency Use Authorization (EUA)? The [place] FDA has made PAXLOVID available under an emergency access mechanism called an Emergency Use Authorization (EUA). The EUA is supported by a Software Licensing Analyst of Health and Human Services (HHS) declaration [...] call the telephone number provided below. Website: wwwPhysicianPortal Telephone number: (1-877-c19-PACK) Distributed by [employer] [place] [address] [id number] Revised: 01/2023 documented in this encounterSt. [facility] Hospital05-01-2024 Telephone encounter Note * Telephone Encounter - Kimmy Fox LPN - 01/29/2024 4:48 PM EDT PATIENT NOTIFIED OF SAME. Patient scheduled for a virtual visit 01/30/[address]24 [facility] Miscellaneous Notes* Telephone Encounter - Kimmy Fox LPN - 01/29/2024 4:48 PM EDT PATIENT NOTIFIED OF SAME. Patient scheduled for a virtual visit 01/30/2024 * Telephone Encounter - Linda Silva APRN.LEAD ATG DEVELOPER - 01/29/2024 4:45 PM EDT I would recommend symptom management with OTCs, given her age she could consider taking Paxlovid also. She would need to do a virtual appointment to discuss this. * Telephone Encounter - Le Osuna LPN - 01/29/2024 4:41 PM EDT Patient calling, states that she took an at home covid test and it is positive. She started yesterday with a sore throat, runny nose, and slight cough yesterday. Patient is asking if anything would be recommended for her to do at this time. Please advise. documented in this encounterSt. [facility] Hospital05-01-2024 Telephone encounter Note * Telephone Encounter - Linda Silva APRN.SEEMA - 01/29/2024 4:45 PM EDT I would recommend symptom management with OTCs, given her age she could consider taking Paxlovid also. She would need to do a virtual appointment to discuss this. [facility] Telephone encounter Note* Telephone Encounter - Le Osuna LPN - 01/29/2024 4:41 PM EDT Patient calling, states that she took an at home covid test and it is positive. She started yesterday with a sore throat, runny nose, and slight cough yesterday. Patient is asking if anything would be recommended for her to do at this time. Please advise. [facility]-20[facility] Miscellaneous Notes* Telephone Encounter - Diya Julio RPh - 12/18/2023 4:52 PM EDT Pharmacist Refill Authorization Review Name: Tania [...] 0 Diya Julio RPh documented in this encounterSt. Vincent Hospital02-19-2024 History of Present illness Narrative* Bg Chavarria MD - 11/18/2023 10:19 AM EST This note was created using Parent Media Groupriter. Subjective Tania Romero is a 83 year [...] mellitus, without long-term current use of insulin ([facility]) 01/24/2021 PAST SURGICAL HISTORY Procedure Laterality Date [...] in one nostril as needed for overdose. Mayrepeat every 2 to 3 min in alternating [...] of joint; still some pain limited mobility butoverall better. Main issue is back pain Above [...] given her age, so under 7 is great.Does not need to see a clothing sales assistant to improve her glycemic control. Does need to get enough calories to prevent more weight loss. Taking water color class since nto able to do things like hike anymore. Still knitting. She will follow up with ortho as needed for pain issues. Bg Chavarria MD documented in this encounterSt. Vincent Hospital02-19-2024 Miscellaneous Notes* Telephone Encounter - Angeline Grace MA - 11/18/2023 9:53 AM EST Pt in office today. Angeline Grace MA documented in this encounterSt. Vincent Hospital01-17-2024 History of Present illness Narrative* Naa Garza RT(R) - 10/16/2023 3:40 PM EST Radiology Service Progress Note PATIENT [...] 16, 2023 3:42 PM documented in this encounterSt. Vincent Hospital01-17-2024 NoteHNO ID: [id number] Author: ANA GARZA RT(R) Service: Radiology Author Type: Technologist [...] IV DATA: Not applicable SIGNED BY: RT Sammie(Cody) October 16, 2023 3:42 PMMagruder Memorial [id number] History of Present illness Narrative* Fabian Haq PTA - 09/19/2023 12:29 PM EST Episode Visit Count: 13 Therapist That Will [...] 1155 Fabian Haq PTA documented in this encounterSt. Vincent Hospital12-12-2023 History of Present illness Narrative* Yana Almaraz, PT - 09/10/2023 11:56 AM EST Episode Visit Count: 10 Therapist That Will [...] Nu-step to review current status, monitor effort throughoutactivity and adjust set up as needed for [...] 1149 Yana Almaraz PT documented in this encounterSt. Vincent Hospital11-20-2023 History of Present illness Narrative* Melita Castañeda PT, DPT - 08/19/2023 1:33 PM EST Episode Visit Count: 7 Therapist That Will [...] and and strength that interfere with walking i n the house, walking in the community, stair [...] created on 07/23/23 through 09/22/23. Updated 08/19/23. [place] in home exercise program. (Met) Patient will [...] Patient to be seen for Therapeutic exercise (87961), Neuromuscular re-education (17351), Manual therapy (33151), Therapeutic activities (16040), Self-prison management (65958), Gait Training (79602) PLAN FOR NEXT VISIT: Progressive hip/LE strengthening and postural strengthening. SUBJECTIVE: Tania reports improvements in right hip mobility over the last month. She reached outto her doctor to inquire when she can [...] Session Stop Time : 1418 Melita Castañeda PT, DPT documented in this encounterSt. Vincent Hospital11-16-2023 History of Present illness Narrative* Melita Castañeda PT, DPT - 2023 10:44 AM EST Program_ID:[id number] Access Code: [email or web address] URL: [email or web address] Date: 2023 Prepared By: Melita Castañeda Program Notes Exercises - Shoulder External Rotation and Scapular Retraction with Resistance - 1 x daily - 7 x weekly - 2-3 - 10 * Melita Castañeda PT, DPT - 2023 10:13 AM EST Episode Visit Count: 6 Therapist That Will [...] exercise. The patient will continue to benefit fromongoing skilled physical therapy to progress toward set [...] 1015 Session Stop Time : 1049 Melita Castñaeda PT, DPT documented in this encounterSt. Vincent Hospital11-13-2023 History of Present illness Narrative* Melita Castañeda PT, DPT - 08/12/2023 1:19 PM EST Episode Visit Count: 5 Therapist That Will [...] 1332 Session Stop Time : 1416 Melita Castañeda PT DPSaman documented in this encounterSt. Vincent Hospital11-08-2023 History of Present illness Narrative* Sincere Hopkins MD - 08/07/2023 12:14 PM EST Post-op Office Visit Tania Romero 82 year [...] weeks Sincere Hopkins MD documented in this encounterSt. Vincent Hospital10-16-2023 Instructions* Patient Instructions* Luis Manuel Hernandez APRN.CNS - 07/15/2023 11:01 AM EDT Try Miralax once daily or docusate 1 or 2 tablets daily as needed for constipation Continue with iron as ordered for at least 14 days. Try to get protein at every meal. Check CBC in about 4 weeks documented in this encounterSt. Vincent Hospital10-16-2023 History of Present illness Narrative* Luis Manuel Hernandez APRN.CNS - 07/15/2023 11:00 AM EDT SUBJECTIVE: Hepatitis B Vaccine(1 of 3 - [...] on June 27, [address] Sincere Begum MD for osteonecrosis. Postoperative x-ray showed implants [...] MS flare symptoms. Neurologist: Previously followed at [facility], Dr Andrea Dobbins. DIABETES MELLITUS: Without [...] in one nostril as needed for overdose. Mayrepeat every 2 to 3 min in alternating [...] 2012) Low vitamin B12 level Multiple sclerosis ([facility]) 05/31/2016 Osteopenia Type 2 diabetes mellitus, without long-term current use of insulin ([facility]) 01/24/2021 Social History Tobacco Use Smoking status: [...] Abs Lymph 1.00 - 4.00 k/uL 1.00 Moffat% % 9.3 Abs Moffat <0.87 k/uL 0.82 Eosin% % 3.6 Abs [...] immunization - ICD9: V03.89, ICD10: Z23 - Flavours-PushSpringNTVaporWire COVID-19 VACCINE (2022- SEASON) AGE 12+ YR [...] for constipation as needed. Luis Manuel Hernandez APRN.WAREHOUSE SUPERVISOR Medical Decision Making: Problems: Moderate: 2+ stable chronic illnesses Data: Unique test(s) ordered: 1 Risk: Moderate: Drug management Medical Decision Making Level: 4 - Moderate documented in this encounterSt. Vincent Hospital10-13-2023 History of Present illness Narrative* Olimpia Lei Tech - 07/12/2023 9:50 AM EDT Radiology Service Progress Note PATIENT NAME: [...] 12, 2023 11:14 AM documented in this encounterSt. Vincent Hospital10-01-2023 History of Past illness Narrative* Problem Noted Date Diagnosed Date Resolved Date Aftercare 06/30/2023 07/08/2023 Osteonecrosis of right hip 06/27/2023 0 06/28/2023 Primary osteoarthritis of left hip 02/03/2021 Overview: Left--Dr. Vasquez (worse from 2011 to 2012) 12/16/2018--Left--near bone on bone apposition; Right--minimal degenerative change with eburnation of the acetabular rim documented as of this encounter (statuses as of 07/15/2023) [facility] of Past illness Narrative* Problem Noted Date Diagnosed Date Resolved Date Aftercare 06/30/2023 07/08/2023 Osteonecrosis of right hip 06/27/2023 0 06/28/2023 Primary osteoarthritis of left hip 02/03/2021 Overview: Left--Dr. Vasquez (worse from 2011 to 2012) 12/16/2018--Left--near bone on bone apposition; Right--minimal degenerative change with eburnation of the acetabular rim documented as of this encounter (statuses as of 08/08/2023) [facility] of Past illness Narrative* Problem Noted Date Diagnosed Date Resolved Date Aftercare 06/30/2023 07/08/2023 Osteonecrosis of right hip 06/27/2023 0 06/28/2023 Primary osteoarthritis of left hip 02/03/2021 Overview: Left--Dr. Vasquez (worse from 2011 to 2012) 12/16/2018--Left--near bone on bone apposition; Right--minimal degenerative change with eburnation of the acetabular rim documented as of this encounter (statuses as of 08/13/2023) [facility] of Past illness Narrative* Problem Noted Date Diagnosed Date Resolved Date Aftercare 06/30/2023 07/08/2023 Osteonecrosis of right hip 06/27/2023 0 06/28/2023 Primary osteoarthritis of left hip 02/03/2021 Overview: Left--Dr. Vasquez (worse from 2011 to 2012) 12/16/2018--Left--near bone on bone apposition; Right--minimal degenerative change with eburnation of the acetabular rim documented as of this encounter (statuses as of 2023) [facility] of Past illness Narrative* Problem Noted Date Diagnosed Date Resolved Date Aftercare 06/30/2023 07/08/2023 Osteonecrosis of right hip 06/27/2023 0 06/28/2023 Primary osteoarthritis of left hip 02/03/2021 Overview: Left--Dr. Vasquez (worse from 2011 to 2012) 12/16/2018--Left--near bone on bone apposition; Right--minimal degenerative change with eburnation of the acetabular rim documented as of this encounter (statuses as of 08/20/2023) [facility] of Past illness Narrative* Problem Noted Date Diagnosed Date Resolved Date Aftercare 06/30/2023 07/08/2023 Osteonecrosis of right hip 06/27/2023 0 06/28/2023 Primary osteoarthritis of left hip 02/03/2021 Overview: Left--Dr. Vasquez (worse from 2011 to 2012) 12/16/2018--Left--near bone on bone apposition; Right--minimal degenerative change with eburnation of the acetabular rim documented as of this encounter (statuses as of 09/10/2023) [facility] of Past illness Narrative* Problem Noted Date Diagnosed Date Resolved Date Aftercare 06/30/2023 07/08/2023 Osteonecrosis of right hip 06/27/2023 0 06/28/2023 Primary osteoarthritis of left hip 02/03/2021 Overview: Left--Dr. Vasquez (worse from 2011 to 2012) 12/16/2018--Left--near bone on bone apposition; Right--minimal degenerative change with eburnation of the acetabular rim documented as of this encounter (statuses as of 09/20/2023) [facility] of Past illness Narrative* Problem Noted Date Diagnosed Date Resolved Date Aftercare 06/30/2023 07/08/2023 Osteonecrosis of right hip 06/27/2023 0 06/28/2023 Primary osteoarthritis of left hip 02/03/2021 Overview: Left--Dr. Vasquez (worse from 2011 to 2012) 12/16/2018--Left--near bone on bone apposition; Right--minimal degenerative change with eburnation of the acetabular rim documented as of this encounter (statuses as of 11/18/2023) [facility] illness Narrative* Problem [...] of this encounter (statuses as of 11/19/2023) [facility] Narrative* Problem [...] of this encounter (statuses as of 12/20/2023) [facility] Miscellaneous Notes* Telephone Encounter - Geoffrey [...] assistance with an exercise program)? No. d. [facility] will be providing your [...] concerns in the meantime, our # is [phone], option 5 Thank you for your time and have a great day. Geoffrey Bejarano PSS documented in this encounterSt. Vincent Hospital09-28-2023 History of Past illness Narrative* Problem Noted Date Diagnosed Date Resolved Date Osteonecrosis of right hip 06/27/2023 0 06/28/2023 Primary osteoarthritis of left hip 02/03/2021 Overview: Left--Dr. Vasquez (worse from 2011 to 2012) 12/16/2018--Left--near bone on bone apposition; Right--minimal degenerative change with eburnation of the acetabular rim documented as of this encounter (statuses as of 06/29/2023) [facility] Instructions* Patient Instructions* Yarelis Rodarte APRN.CNP [...] breath, inability to swallow. documented in this encounterSt. Vincent Hospital09-21-2023 History of Present illness Narrative* Yarelis Rodarte APRN.CNP - 06/20/2023 12:19 PM EDT Subjective The history is provided by the patient. No russian language professor was used. JOEY Tania Romero is a [...] 2012) Low vitamin B12 level Multiple sclerosis ([facility]) 05/31/2016 Osteopenia Type 2 diabetes mellitus, without long-term current use of insulin ([facility]) 01/24/2021 I have confirmed and edited as necessary, the [facility] Review of Systems Constitutional: Negative for chills [...] in 12-24 hours with results, available on QualiSystemst Will start prevacid back up until after [...] indetail warranting prompt ER evaluation. Yarelis Rodarte APRN.CNP documented in this encounterSt. Vincent Hospital09-12-2023 Miscellaneous Notes* Telephone Encounter - Joe Jiang PA-C - 06/11/2023 8:45 AM EDT Refill has been sent to pharmacy on file. Joe Jiang PA-C documented in this encounterSt. Vincent Hospital09-07-2023 Miscellaneous Notes* Telephone Encounter - Reji Christensen PSS - 06/06/2023 3:29 PM EDT TOTAL JOINT COMPLETE CARE PROGRAM PRE-OPERATIVE TEACHING Service Date: 06/06/2023 Service Time: 3:29 PM Date of : 1940 Gender: female Date of Surgery: 06/27/23 Procedure: Right Total Hip Replacement (Anterior) Complete Care Program was discussed with the patient: Segment Assembler Identification: Patient identified a morning caregiver to help when discharged to home: Home [...] Binder: Yes Patient plans discharge home with [facility]. SIGNATURE: LEANA Davidson PATIENT NAME: Tania Romero DATE: June 06, 2023 TIME: 3:29 PM documented in this encounterSt. [facility]09-[facility]23 Miscellaneous Notes* Telephone Encounter - Joe Jiang PA-C - 06/05/2023 1:59 PM EDT This patient will need to be contacted for meet and greet appointment with Dr.Nicholas Collin Hopkins MD on 06/21 or 06/24. Please keep on list of patients to contact. Thank you, Joe Jiang PA-C documented in this encounterSt. Vincent Hospital09-06-2023 History of Present illness Narrative* Joe [...] month(s) interfering with activities which include doing cilnical scientist, participating in family activities, rising from asitting [...] no height and/or weight reading in the ipsj871 days, so the below BMI readings may [...] 2023 TIME: 1:13 PM documented in this encounterSt. Vincent Hospital08-30-2023 Miscellaneous Notes* Telephone Encounter - Olimpia Maradiaga RN - 05/29/2023 1:58 PM EDT See MyChart message from 05/29/23. documented in this [facility]08-30-[facility] History of Present illness Narrative* Joe Jiang PA-C - 05/29/2023 1:24 PM EDT Tramadol sent over for pre-op pain control. Terrible right hip osteonecrosis. Future MERLE patient. Joe Jiang PA-C documented in this [facility]08-22-2023 Miscellaneous Notes* Telephone Encounter - Olipmia Maradiaga RN - 05/21/2023 3:05 PM EDT Addressed in AngleWare message from today, 05/21/23. * Telephone Encounter - Olimpia Maradiaga RN - 05/21/2023 8:09 AM EDT Patient calling RN andrewsDavis LEE was , 05/16 where she was told she would get a call Saturday about setting up surgery. She is asking for an update about scheduling surgery. Ph. [phone] documented in this [facility]08-22-2023 Miscellaneous Notes* Telephone Encounter - Fredy Carrasco APRN.CNP - 05/21/2023 12:42 PM EDT I called and spoke with Tania. She was offered August 05 which is the next soonest available. All questions answered. Fredy Carrasco APRN.CNP May 21, 2023 12:54 PM documented in this [facility]08-17-2023 History of Present illness Narrative* Fredy Carrasco APRN.CNP - 05/16/2023 11:26 AM EDT Orthopaedic Office Note: May 16, 2023 11:47 AM Taina Romero 82 year old History: Tania is [...] spacer instead. All questions answered. Fredy Carrasco APRN.SEEMA Orthopaedic Surgery documented in this encounterSt. Vincent Hospital08-17-2023 Miscellaneous Notes* Telephone Encounter - Diya [...] department: 02/04/2023 Luis Manuel Hernandez APRN.CNP Last [facility] health visit in this department: Visit date [...] 0 Diya Julio RPh documented in this encounterSt. Vincent Hospital08-08-2023 Miscellaneous Notes* Telephone Encounter - Olimpia Maradiaga RN - 05/07/2023 4:23 PM EDT Pt called back and requested that the prescription be faxed to the [facility] in [place]. Faxed and received confirmation it was sent. * Telephone Encounter - Olimpia Maradiaga RN - 05/07/2023 2:57 PM EDT Pt requested that handicap placard be emailed to her so she can [...] Oscar Spoke with patient. Stated she would sheepskin pickler the order for a gel cushion at her appointment. She is also requesting a handicap placard. * Telephone Encounter - Olimpia Maradiaga RN - 05/02/2023 2:01 PM EDT Pt calling RN line. Ph. [phone] States she is still having a lot [...] of all education provided. documented in this encounterSt. Vincent Hospital08-07-2023 Miscellaneous Notes* Telephone Encounter - Barbara [...] LPN * Telephone Encounter - Linda Silva APRN.SEEMA - 05/06/2023 8:04 AM EDT Please call [...] forward this to orthopaedics. documented in this encounterSt. Vincent Hospital08-07-2023 Miscellaneous Notes* Telephone Encounter - Olimpia [...] with Oscar on 05/16. documented in this encounterSt. Vincent Hospital08-04-2023 History of Present illness Narrative* Linda Silva APRN.LEAD ATG DEVELOPER - 05/03/2023 9:52 AM EDT SUBJECTIVE Tania Romero is a 82 year old female here today for a check up on her medical problems. Chief Complaint Patient presents with: Acute Visit: right hip pain HPI Tania Romero is a 82 year old female established [...] Mellitus, Without Long-Term Current Use of Insulin (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) - 05/31/2016 Elevated Fasting Glucose - 05/04/2013 [...] suspiciousactivity was identified. 05/03/2023 by Linda Silva APRN.CNP Portions of this note have been entered [...] appointment.. Linda Silva APRN-SEEMA documented in this encounterSt. Vincent Hospital08-03-2023 Miscellaneous Notes* Telephone Encounter - Anotnino Reyes RN - 05/02/2023 2:24 PM EDT Patient calling to request stronger medication for right hip pain. She says Meloxicam and Tylenol are not working for her. Asking for Tramadol. Advised appointment and scheduled with Linda Silva SENIOR BIOSTATISTICIAN/GROUP LEADER on 05/03. Antonino Reyes RN documented in this encounterSt. Vincent Hospital08-02-2023 Miscellaneous Notes* Telephone Encounter - Gregg [...] AM EDT Patient calling RN line. Cannon [phone] Has upcoming appointment with Oscar on 05/16. States she is experiencing a lot of pain. Tylenol and meloxicam not working. Having a hard time ambulating. Asking for advise on what to do until appointment. documented in this encounterSt. Vincent Hospital07-27-2023 Miscellaneous Notes* Telephone Encounter - Maxine [...] advise, Maricel Darling RN documented in this encounterSt. Vincent Hospital07-27-2023 Miscellaneous Notes* Telephone Encounter - Fredy Carrasco APRN.CNP - 04/25/2023 8:42 AM EDT I called Tania but reached her VM. Message left. I suggest she make an appointment with myself orDr. Jacobsen to assess her current symptoms of trochanteric bursitis versus hip OA and discuss options moving forward. Fredy Carrasco APRN.SEEMA April 25, 2023 8:43 AM * Telephone [...] talk to Dr Jacobsen. documented in this encounterSt. Vincent Hospital07-24-2023 History of Present illness Narrative* Zhen [...] standing TREATMENT: Therapeutic Exercise: 1: Seated hip november 5# 3 x 10 2: Seated LAQ [...] 908 Zhen Powell PT documented in this encounterSt. Vincent Hospital07-10-2023 History of Present illness Narrative* Zhen [...] in 8 weeks or less - MET [place] in home exercise program. - Met so [...] Patient to be seen for Therapeutic exercise (06385), Neuromuscular re-education (79363), Manual therapy (39735), Self-prison management (14892), Patient/Family/Caregiver Education PLAN FOR NEXT VISIT: R [...] Slower yovana and slow to mobilize with njr-hj-osnsl transfer TREATMENT: Therapeutic Exercise: 1: All objective [...] 41 Zhen Powell PT documented in this encounterSt. Vincent Hospital07-03-2023 History of Present illness Narrative* Zhen [...] 40 Zhen Powell PT documented in this encounterSt. Vincent Hospital06-26-2023 History of Present illness Narrative* Zhen [...] toward set goals. PLAN FOR NEXT VISIT: Bridge, hip isometrics SUBJECTIVE: Patient Reason for Visit: [...] 3 x 10 5: Seated TA with november 2 x 15 reps Skilled Intervention: Patient was educated in proper exercise technique and purpose for exercises. Correct performance of therapeutic exercises was facilitated with verbal and visual cuing. Billing Therapeutic Exercise Treatment Minutes: 41 Total Treatment Time Minutes (timed/untimed): 41 Zhen Powlel PT documented in this encounterSt. Vincent Hospital06-21-2023 Surgical operation note* Brief Op Note - Radha Nation APRN.LEAD ATG DEVELOPER - 03/20/2023 11:36 AM EDT BRIEF OP NOTE LOG ID: [id number] Surgery/Procedure Date: 03/20/2023 Surgeon(s)/Proceduralist(s) and Sighter(s): Radha Nation APRN.CNP Procedure(s): Imaging guided right [...] 11:36 AM PAGER/CONTACT #: documented in this encounterSt. Vincent Hospital06-20-2023 History of Present illness Narrative* Zhen Powell, PT - 03/19/2023 7:51 AM EDT Episode Visit Count: 6 Therapist That Will Accept/Oversee The Plan Of Care: Zhen Poewll Start of Care Date: 02/08/23 Onset Date: [...] 41 Zhen Powell PT documented in this encounterSt. Vincent Hospital06-16-2023 History of Present illness Narrative* Bg Chavarria MD - 03/15/2023 11:52 AM EDT This note was created using Parent Media Groupriter. Subjective Tania Romero is a 82 year [...] 2012) Low vitamin B12 level Multiple sclerosis ([facility]) 05/31/2016 Osteopenia Type 2 diabetes mellitus, without long-term current use of insulin ([facility]) 01/24/2021 Current Outpatient Medications Medication Sig metFORMIN [...] sleep. Bg Chavarria MD documented in this encounterSt. Vincent Hospital06-02-2023 History of Present illness Narrative* Zhen [...] 41 Zhen Powell PT documented in this encounterSt. Vincent Hospital05-13-2023 NoteIMPRESSION: Progressive right hip osteoarthrosis Preassembler And Inspector: HYUN Transcribe Date/Time: Feb 09 2023 6:37P Dictated by : SALVATORE AYERS MD This examination was interpreted and the report reviewed and electronically signed by: SALVATORE AYERS MD on Feb 09 2023 6:38PM [facility] [id number] History of Present illness Narrative* Chaya Schmidt [...] 07, 2023 1:54 PM documented in this encounterSt. Vincent Hospital05-08-2023 History of Present illness Narrative* Luis Manuel Hernandez APRN.WAREHOUSE SUPERVISOR - 02/04/2023 2:40 PM EDT SUBJECTIVE: ADVANCE [...] MS flare symptoms. Neurologist: Previously followed at [facility], Dr Andrea Dobbins. Last visit 2015. AngleWare message sent on February 01, 2023 regarding [...] 2012) Low vitamin B12 level Multiple sclerosis ([facility]) 05/31/2016 Osteopenia Type 2 diabetes mellitus, without long-term current use of insulin ([facility]) 01/24/2021 Social History Tobacco Use Smoking status: [...] earliest convenience with Dr. Jacobsen. Luis Manuel Hernandez APRN.WAREHOUSE SUPERVISOR Medical Decision Making: Problems: Moderate: 1+ chronic illnesses with change Data: Unique test(s) ordered: 1 Risk: Moderate: Drug management Medical Decision Making Level: 4 - Moderate documented in this encounterSt. Vincent Hospital03-23-2023 Miscellaneous Notes* Telephone Encounter - Barbara [...] Barbara De Guzman LPN documented in this encounterSt. Vincent Hospital03-21-2023 Miscellaneous Notes* Telephone Encounter - Karla Tom [facility] - 12/18/2022 10:58 AM EDT Pharmacist Refill [...] 0 Karla Tom RPh documented in this encounterSt. Vincent Hospital02-21-2023 Miscellaneous Notes* Telephone Encounter - Guillaume [...] 0 Guillaume Walker RPh documented in this encounterSt. Vincent Hospital02-08-2023 Miscellaneous Notes* Telephone Encounter - LEANA Torres - 11/07/2022 11:43 AM EST Patient is requesting lab work before her appointment on Saturday with Dr. Chavarria. Please review and advise. LEANA Torres November 07, 2022 11:44 AM documented in this encounterSt. Vincent Hospital12-16-2022 History of Present illness Narrative* Nahed [...] 14, 2022 11:53 AM documented in this encounterSt. Vincent Hospital12-16-2022 History of Present illness Narrative* Linda Silva APRN.LEAD ATG DEVELOPER - 09/14/2022 11:24 AM EST Images from [...] weeks ago while out of town for [employer]. She initially had some aching but no [...] Mellitus, Without Long-Term Current Use of Insulin (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) - 05/31/2016 Elevated Fasting Glucose - 05/04/2013 [...] to improve, for Keep next scheduled appointment.. RADHA Hines documented in this encounterSt. Vincent Hospital12-09-2022 History of Present illness Narrative* Celine Leigh RT(R) - 09/07/2022 2:50 PM EST Radiology Service Progress Note PATIENT NAME: Taina Romero DATE OF SERVICE: September 07, 2022 [...] 07, 2022 2:55 PM documented in this encounterSt. Vincent Hospital11-15-2022 Miscellaneous Notes* Telephone Encounter - Linda Silva APRN.LEAD ATG DEVELOPER - 08/14/2022 7:46 AM EST Please send referral for podiatry, Dr. Koch. Thanks!! documented in this encounterSt. Vincent Hospital10-13-2022 History of Present illness Narrative* Leann Redding - 07/12/2022 11:16 AM EDT Refill Authorization Consent Tania Romero was encountered by telephone to obtain consent for pharmacist managed refill authorization. Patient gives consent to the authorization of prescriptions by a pharmacist. Leann Redding 07/12/2022 documented in this encounterSt. Vincent Hospital09-29-2022 History of Present illness Narrative* Luis Manuel Hernandez APRN.WAREHOUSE SUPERVISOR - 06/28/2022 11:00 AM EDT SUBJECTIVE: ADVANCE [...] 2012) Low vitamin B12 level Multiple sclerosis ([facility]) 05/31/2016 Osteopenia Type 2 diabetes mellitus, without long-term current use of insulin ([facility]) 01/24/2021 Social History Tobacco Use Smoking status: [...] Level: 4 - Moderate documented in this encounterSt. Vincent Hospital08-05-2022 Nurse Note* Maxine Phillips RN - 05/04/2022 8:02 AM EDT Pt received in PACU. Pt mildly drowsy, but arouses easily. Denies pain or nausea. Abd soft and non distended. Maxine Phillips RN documented in this encounterSt. Vincent Hospital08-05-2022 History and physical note * Nuha [...] 2012) Low vitamin B12 level Multiple sclerosis ([facility]) 05/31/2016 Osteopenia Type 2 diabetes mellitus, without long-term current use of insulin ([facility]) 01/24/2021 PAST SURGICAL HISTORY Procedure Laterality Date [...] entered by the nurse and reviewed by va Nursing Notes: Janay Bhagat RN 03/05/2022 1:21 [...] gout. When was patient's last Mammogram screening? 2020 Last Colonoscopy: 2017 Janay Bhagat RN PHYSICAL [...] 7:30 AM EDT HISTORY AND PHYSICAL Tania Johnathanjayme 1940 REFERRING PHYSICIAN: Bg Chavarria MD CHIEF [...] 2012) Low vitamin B12 level Multiple sclerosis ([facility]) 05/31/2016 Osteopenia Type 2 diabetes mellitus, without long-term current use of insulin ([facility]) 01/24/2021 PAST SURGICAL HISTORY Procedure Laterality Date [...] entered by the nurse and reviewed by va Nursing Notes: Janay Bhagat RN 03/05/2022 1:21 [...] patient wishes to proceed. documented in this encounterSt. Vincent Hospital08-01-2022 Miscellaneous Notes* Telephone Encounter - Beata [...] you. Beata Rod LPN documented in this encounterSt. Vincent Hospital06-16-2022 Instructions* Patient Instructions* Angus Silveira MD - 03/15/2022 11:57 AM EDT FACT SHEET FOR PATIENTS, PARENTS, AND CAREGIVERS EMERGENCY USE AUTHORIZATION (EUA) OF PAXLOVID FOR CORONAVIRUS DISEASE 2019 (COVID-19) You are being given this Fact Sheet because your healthcare provider believes it is necessary to provide you with PAXLOVID for the treatment of xyau-kz-uxmtbpmg coronavirus disease (COVID-19) caused by the SARS-CoV-2 [...] virus. COVID-19 illnesses have ranged from very ncgj-fh-wkalui, including illness resulting in . While information [...] is an investigational medicine used to treat gaef-da-ksxrmcyw COVID-19 in adults and children [12 years [...] of using PAXLOVID to treat people with zqot-vm-fzvafeaa COVID-19. The FDA has authorized the emergency use of PAXLOVID for the treatment of eofs-kw-hgkmefqa COVID-19in adults and children [12 years of [...] the medicines you take, including prescription and essj-qrc-wtwdnxy medicines, vitamins, and herbal supplements. Some medicines [...] (remdesivir) is FDA-approved for the treatment of anxo-qb-cggfvjeo COVID-19 in certain adults and children. Talk with your doctor to see if Veklury is appropriate for you. Like PAXLOVID, FDA may also allow for the emergency use of other medicines to treat people with COVID-19. Go to https://www.fda.gov/uajffauap-pyxjmyfbitzv-qreefqryizi/xed-hccnd-vzygxjzhym-and- policy-framework/uzwqodedx-hwi-zwyamsnzxfjwy for information on the emergency use of [...] if I am or ? There is blood bank technologist treating women or mothers with PAXLOVID. [...] not go away. Report side effects to [employer] MedWatch at www.fda.gov/medwatch or call 3-244-JZZ7319 or you can reportside effects to [employer]. at the contact information provided below. Website Fax number Telephone number PaperG How should I store PAXLOVID? Store PAXLOVID [...] (EUA). The EUA is supported by a Software Licensing Analyst of Health and Human Service (HHS) declaration that circumstances exist to justify the emergency use of drugs and biological productsduring the COVID-19 pandemic. PAXLOVID for the treatment of vwda-mf-rrdbpeea COVID-19 in adults and children [12 years [...] telephone number provided below. Website Telephone number wwwPhysicianPortal (1-683-R75-PACK) You can also go to [email or web address] or call for more information. Pfizer Distributed by [employer] [place] [address] [id number] Revised: 15 December 2021 documented in this encounterSt. Vincent Hospital06-16-2022 History of Present illness Narrative* Angus Silveira MD - 03/15/2022 11:43 AM EDT Telemedicine Evaluation for COVID-19 Infection MyChart video visit was used for evaluation of this patient. Location of patient: [facility] Tania Romero is a 81 year old [...] found. Nirmatrelvir/Ritonavir (Paxlovid) Eligibility and Patient Discussion [facility] Formulary Restriction Criteria: Adult outpatients 18 [...] of transplant or on systemic therapy for ndcqd-rullzl-qolf disease [] CAR T-cell/other cellular therapy recipients [...] 15, 2022 11:54 AM documented in this encounterSt. Vincent Hospital06-16-2022 Miscellaneous Notes* Telephone Encounter - Maricel Darling RN - 03/15/2022 10:08 AM EDT Patient calls and states that she did test positive with PCR test. Patient asking about antiviral. Set up virtual appointment with Dr. Silveira to discuss. Maricel Darling RN * Telephone Encounter - Karla Monge LPN - 03/14/2022 10:13 AM EDT Patient calling she is traveling in [place]. She did COVID home test yesterday was positive. Did a PCRtest at [facility] in [facility] yesterday afternoon about 330 pm, could get results tomorrow or Saturday. Patient said her symptoms began Saturday (03/10/2022) with scratchy throat, congestion, cough, sneezing. She is not taking anything for her symptoms. She and are at [facility] in [place]. Attached [facility] pharmacy that is close to them. Patient is asking about getting the antiviral medication rx? Her has no symptoms trying to stay away from her. Please advise documented in this encounterSt. Vincent Hospital06-07-2022 Miscellaneous Notes* Letter - Mammography Coordinator - 03/06/2022 1:47 PM EDT March 06, 2022 PID: [id number] Tania Romero [address] [place] [address] Dear Ms. Romero, We are pleased to [...] report will be [facility] as part of your permanent medical record and are available for your continuing care. Thank you for allowing us to help in meeting your health care needs. Sincerely, Dr. Munroe Interpreting Radiologist [facility] (Normal over 40) documented in this encounterSt. Vincent Hospital06-07-2022 History of Present illness Narrative* Gregoria Galvez LmIcinetic - 03/06/2022 1:10 PM EDT Radiology Service [...] 06, 2022 1:29 PM documented in this encounterSt. Vincent Hospital06-06-2022 History of Present illness Narrative* Nuha [...] entered by the nurse and reviewed by va Nursing Notes: Janay Bhagat RN 03/05/2022 1:21 [...] 04 (as per her wishes) at the [facility]. Medical Decision Making: Risk: Low: Low risk from testing/treatment Medical Decision Making Level: 2 - Straightforward Nuha Saab MD documented in this encounterSt. Vincent Hospital06-06-2022 Instructions* Patient Instructions* Nuha Saab MD [...] If you do not have a responsible transporter driver (family member or friend) with you [...] your exam. 3 08/2019 documented in this encounterSt. Vincent Hospital06-06-2022 Nurse Note* Janay Bhagat RN - [...] gout. When was patient's last Mammogram screening? 2020 Last Colonoscopy: 2017 Janay Bhagat RN documented in this encounterSt. Vincent Hospital06-03-2022 History and physical note * Anibal [...] 2022 TIME: 1:07 PM documented in this encounterSt. Vincent Hospital06-03-2022 Miscellaneous Notes* Operative Report - Anibal [...] was nil.A sterile dressing was applied. Tania Romeor was taken to the Post-block Recovery Area for further observation. EBL: nil Start time: 1:09 PM End time: 1:22 PM I was present the entire time and personally performed the procedure. SIGNATURE: Anibal Lake MD DATE: March 02, 2022 TIME: 1:25 PM documented in this encounterSt. Vincent Hospital05-31-2022 History of Present illness Narrative* Bg Chavarria MD - 02/27/2022 5:40 PM EDT This note was created using HexAirbotter. Subjective Tania Romero is a 81 year old female. Patient presents with: Follow Up SUBJECTIVE: aTnia Romero is a 81 year old year old lady here today for 6 month follow up appointment for review of medical conditions. No SSIS SSRS DEVELOPER or breast issues noted. PAST MEDICAL HISTORY Diagnosis Date DJD (degenerative joint disease) of hip Left--Dr. Vasquez (worse from 2011 to 2012) Low vitamin B12 level Multiple sclerosis ([facility]) 05/31/2016 Osteopenia Type 2 diabetes mellitus, without long-term current use of insulin ([facility]) 01/24/2021 Current Outpatient Medications Medication Sig psyllium [...] 80s. Bg Chavarria MD documented in this encounterSt. Vincent Hospital05-17-2022 History of Present illness Narrative* Lorena Jacobsen MD - 02/13/2022 2:32 PM EDT Images from the original note were not included. DEPARTMENT OF ORTHOPAEDICS PATIENT INFO: Tania Romero 81 year old REFERRING M.D.: Pavel Lobo [address] [address] HISTORY CHIEF COMPLAINT: left hip HPI: Tania [...] painless arcs of motion Full strength Neg stinchfield Leg lengths appear symmetric on exam X-RAYS: [...] Jacobsen MD Orthopaedic Surgery documented in this encounterSt. Vincent Hospital05-05-2022 Miscellaneous Notes* Telephone Encounter - Bekah Bulmaro - 02/01/2022 1:53 PM EDT Called patient regarding request. Patient stated she was already contacted by nurse staff to schedule injections. documented in this encounterSt. Vincent Hospital04-26-2022 Miscellaneous Notes* Telephone Encounter - [place] [...] could the provider please send [facility] to [facility]. Patient has been identified by name and [...] calling: self Call patient at: on cell [phone] (home) [phone] (cell) Was an appointment scheduled: No Closing statement: Linh Rasheed Pss documented in this encounterSt. Vincent Hospital04-25-2022 Miscellaneous Notes* Telephone Encounter - Omar Sanchez RN - 01/22/2022 2:15 PM EDT Patient added to Epic Injection scheduling spreadsheet Office to contact patient within 5 business days to schedule * Telephone Encounter - Jacquie Sevilla APRN.CNP - 01/22/2022 2:11 PM EDT Injection order [...] business days to schedule documented in this encounterSt. Vincent Hospital03-24-2022 Miscellaneous Notes* Telephone Encounter - Bg Chavarria MD - 12/21/2021 12:34 PM EDT See MyChart reply to patient Make her appointment 40 minutes yearly and move next patient after her to later time slot. documented in this encounterSt. Vincent Hospital05-07-2021 History of Past illness Narrative* Problem Noted Date Resolved Date Primary osteoarthritis of left hip 02/03/2021 Overview: Left--Dr. Vasquez (worse from 2011 to 2012) 12/16/2018--Left--near bone on bone apposition; Right--minimal degenerative change with eburnation of the acetabular rim documented as of this encounter (statuses as of 12/26/2021) [facility] History of Past illness Narrative* Problem Noted Date Resolved Date Primary osteoarthritis of left hip 02/03/2021 Overview: Left--Dr. Vasquez (worse from 2011 to 2012) 12/16/2018--Left--near bone on bone apposition; Right--minimal degenerative change with eburnation of the acetabular rim documented as of this encounter (statuses as of 01/17/2022) [facility] History of Past illness Narrative* Problem Noted Date Resolved Date Primary osteoarthritis of left hip 02/03/2021 Overview: Left--Dr. Vasquez (worse from 2011 to 2012) 12/16/2018--Left--near bone on bone apposition; Right--minimal degenerative change with eburnation of the acetabular rim documented as of this encounter (statuses as of 01/22/2022) [facility] History of Past illness Narrative* Problem Noted Date Resolved Date Primary osteoarthritis of left hip 02/03/2021 Overview: Left--Dr. Vasquez (worse from 2011 to 2012) 12/16/2018--Left--near bone on bone apposition; Right--minimal degenerative change with eburnation of the acetabular rim documented as of this encounter (statuses as of 01/23/2022) [facility] History of Past illness Narrative* Problem Noted Date Resolved Date Primary osteoarthritis of left hip 02/03/2021 Overview: Left--Dr. Vasquez (worse from 2011 to 2012) 12/16/2018--Left--near bone on bone apposition; Right--minimal degenerative change with eburnation of the acetabular rim documented as of this encounter (statuses as of 02/01/2022) [facility] History of Past illness Narrative* Problem Noted Date Resolved Date Primary osteoarthritis of left hip 02/03/2021 Overview: Left--Dr. Vasquez (worse from 2011 to 2012) 12/16/2018--Left--near bone on bone apposition; Right--minimal degenerative change with eburnation of the acetabular rim documented as of this encounter (statuses as of 02/07/2022) [facility] History of Past illness Narrative* Problem Noted Date Resolved Date Primary osteoarthritis of left hip 02/03/2021 Overview: Left--Dr. Vasquez (worse from 2011 to 2012) 12/16/2018--Left--near bone on bone apposition; Right--minimal degenerative change with eburnation of the acetabular rim documented as of this encounter (statuses as of 02/13/2022) [facility] History of Past illness Narrative* Problem Noted Date Resolved Date Primary osteoarthritis of left hip 02/03/2021 Overview: Left--Dr. Vasquez (worse from 2011 to 2012) 12/16/2018--Left--near bone on bone apposition; Right--minimal degenerative change with eburnation of the acetabular rim documented as of this encounter (statuses as of 03/03/2022) [facility] History of Past illness Narrative* Problem Noted Date Resolved Date Primary osteoarthritis of left hip 02/03/2021 Overview: Left--Dr. Vasquez (worse from 2011 to 2012) 12/16/2018--Left--near bone on bone apposition; Right--minimal degenerative change with eburnation of the acetabular rim documented as of this encounter (statuses as of 03/05/2022) [facility] History of Past illness Narrative* Problem Noted Date Resolved Date Primary osteoarthritis of left hip 02/03/2021 Overview: Left--Dr. Vasquez (worse from 2011 to 2012) 12/16/2018--Left--near bone on bone apposition; Right--minimal degenerative change with eburnation of the acetabular rim documented as of this encounter (statuses as of 03/05/2022) [facility] History of Past illness Narrative* Problem Noted Date Resolved Date Primary osteoarthritis of left hip 02/03/2021 Overview: Left--Dr. Vasquez (worse from 2011 to 2012) 12/16/2018--Left--near bone on bone apposition; Right--minimal degenerative change with eburnation of the acetabular rim documented as of this encounter (statuses as of 03/07/2022) [facility] History of Past illness Narrative* Problem Noted Date Resolved Date Primary osteoarthritis of left hip 02/03/2021 Overview: Left--Dr. Vasquez (worse from 2011 to 2012) 12/16/2018--Left--near bone on bone apposition; Right--minimal degenerative change with eburnation of the acetabular rim documented as of this encounter (statuses as of 03/08/2022) [facility] History of Past illness Narrative* Problem Noted Date Resolved Date Primary osteoarthritis of left hip 02/03/2021 Overview: Left--Dr. Vasquez (worse from 2011 to 2012) 12/16/2018--Left--near bone on bone apposition; Right--minimal degenerative change with eburnation of the acetabular rim documented as of this encounter (statuses as of 03/15/2022) [facility] History of Past illness Narrative* Problem Noted Date Resolved Date Primary osteoarthritis of left hip 02/03/2021 Overview: Left--Dr. Vasquez (worse from 2011 to 2012) 12/16/2018--Left--near bone on bone apposition; Right--minimal degenerative change with eburnation of the acetabular rim documented as of this encounter (statuses as of 03/15/2022) [facility] History of Past illness Narrative* Problem Noted Date Resolved Date Primary osteoarthritis of left hip 02/03/2021 Overview: Left--Dr. Vasquez (worse from 2011 to 2012) 12/16/2018--Left--near bone on bone apposition; Right--minimal degenerative change with eburnation of the acetabular rim documented as of this encounter (statuses as of 04/24/2022) [facility] History of Past illness Narrative* Problem Noted Date Resolved Date Primary osteoarthritis of left hip 02/03/2021 Overview: Left--Dr. Vasquez (worse from 2011 to 2012) 12/16/2018--Left--near bone on bone apposition; Right--minimal degenerative change with eburnation of the acetabular rim documented as of this encounter (statuses as of 04/30/2022) [facility] History of Past illness Narrative* Problem Noted Date Resolved Date Primary osteoarthritis of left hip 02/03/2021 Overview: Left--Dr. Vasquez (worse from 2011 to 2012) 12/16/2018--Left--near bone on bone apposition; Right--minimal degenerative change with eburnation of the acetabular rim documented as of this encounter (statuses as of 05/05/2022) [facility] History of Past illness Narrative* Problem Noted Date Resolved Date Primary osteoarthritis of left hip 02/03/2021 Overview: Left--Dr. Vasquez (worse from 2011 to 2012) 12/16/2018--Left--near bone on bone apposition; Right--minimal degenerative change with eburnation of the acetabular rim documented as of this encounter (statuses as of 05/07/2022) [facility] History of Past illness Narrative* Problem Noted Date Resolved Date Primary osteoarthritis of left hip 02/03/2021 Overview: Left--Dr. Vasquez (worse from 2011 to 2012) 12/16/2018--Left--near bone on bone apposition; Right--minimal degenerative change with eburnation of the acetabular rim documented as of this encounter (statuses as of 05/31/2022) [facility] History of Past illness Narrative* Problem Noted Date Resolved Date Primary osteoarthritis of left hip 02/03/2021 Overview: Left--Dr. Vasquez (worse from 2011 to 2012) 12/16/2018--Left--near bone on bone apposition; Right--minimal degenerative change with eburnation of the acetabular rim documented as of this encounter (statuses as of 06/28/2022) [facility] History of Past illness Narrative* Problem Noted Date Resolved Date Primary osteoarthritis of left hip 02/03/2021 Overview: Left--Dr. Vasquez (worse from 2011 to 2012) 12/16/2018--Left--near bone on bone apposition; Right--minimal degenerative change with eburnation of the acetabular rim documented as of this encounter (statuses as of 07/12/2022) [facility] History of Past illness Narrative* Problem Noted Date Resolved Date Primary osteoarthritis of left hip 02/03/2021 Overview: Left--Dr. Vasquez (worse from 2011 to 2012) 12/16/2018--Left--near bone on bone apposition; Right--minimal degenerative change with eburnation of the acetabular rim documented as of this encounter (statuses as of 08/14/2022) [facility] History of Past illness Narrative* Problem Noted Date Resolved Date Primary osteoarthritis of left hip 02/03/2021 Overview: Left--Dr. Vasquez (worse from 2011 to 2012) 12/16/2018--Left--near bone on bone apposition; Right--minimal degenerative change with eburnation of the acetabular rim documented as of this encounter (statuses as of 09/14/2022) [facility] History of Past illness Narrative* Problem Noted Date Resolved Date Primary osteoarthritis of left hip 02/03/2021 Overview: Left--Dr. Vasquez (worse from 2011 to 2012) 12/16/2018--Left--near bone on bone apposition; Right--minimal degenerative change with eburnation of the acetabular rim documented as of this encounter (statuses as of 11/15/2022) [facility] History of Past illness Narrative* Problem Noted Date Resolved Date Primary osteoarthritis of left hip 02/03/2021 Overview: Left--Dr. Vasquez (worse from 2011 to 2012) 12/16/2018--Left--near bone on bone apposition; Right--minimal degenerative change with eburnation of the acetabular rim documented as of this encounter (statuses as of 11/20/2022) [facility] History of Past illness Narrative* Problem Noted Date Resolved Date Primary osteoarthritis of left hip 02/03/2021 Overview: Left--Dr. Vasquez (worse from 2011 to 2012) 12/16/2018--Left--near bone on bone apposition; Right--minimal degenerative change with eburnation of the acetabular rim documented as of this encounter (statuses as of 12/18/2022) [facility] History of Past illness Narrative* Problem Noted Date Resolved Date Primary osteoarthritis of left hip 02/03/2021 Overview: Left--Dr. Vasquez (worse from 2011 to 2012) 12/16/2018--Left--near bone on bone apposition; Right--minimal degenerative change with eburnation of the acetabular rim documented as of this encounter (statuses as of 12/20/2022) [facility] History of Past illness Narrative* Problem Noted Date Resolved Date Primary osteoarthritis of left hip 02/03/2021 Overview: Left--Dr. Vasquez (worse from 2011 to 2012) 12/16/2018--Left--near bone on bone apposition; Right--minimal degenerative change with eburnation of the acetabular rim documented as of this encounter (statuses as of 02/04/2023) [facility] History of Past illness Narrative* Problem Noted Date Resolved Date Primary osteoarthritis of left hip 02/03/2021 Overview: Left--Dr. Vasquez (worse from 2011 to 2012) 12/16/2018--Left--near bone on bone apposition; Right--minimal degenerative change with eburnation of the acetabular rim documented as of this encounter (statuses as of 02/05/2023) [facility] History of Past illness Narrative* Problem Noted Date Resolved Date Primary osteoarthritis of left hip 02/03/2021 Overview: Left--Dr. Vasquez (worse from 2011 to 2012) 12/16/2018--Left--near bone on bone apposition; Right--minimal degenerative change with eburnation of the acetabular rim documented as of this encounter (statuses as of 02/08/2023) [facility] History of Past illness Narrative* Problem Noted Date Resolved Date Primary osteoarthritis of left hip 02/03/2021 Overview: Left--Dr. Vasquez (worse from 2011 to 2012) 12/16/2018--Left--near bone on bone apposition; Right--minimal degenerative change with eburnation of the acetabular rim documented as of this encounter (statuses as of 03/01/2023) [facility] History of Past illness Narrative* Problem Noted Date Resolved Date Primary osteoarthritis of left hip 02/03/2021 Overview: Left--Dr. Vasquez (worse from 2011 to 2012) 12/16/2018--Left--near bone on bone apposition; Right--minimal degenerative change with eburnation of the acetabular rim documented as of this encounter (statuses as of 03/19/2023) [facility] History of Past illness Narrative* Problem Noted Date Resolved Date Primary osteoarthritis of left hip 02/03/2021 Overview: Left--Dr. Vasquez (worse from 2011 to 2012) 12/16/2018--Left--near bone on bone apposition; Right--minimal degenerative change with eburnation of the acetabular rim documented as of this encounter (statuses as of 03/21/2023) [facility] History of Past illness Narrative* Problem Noted Date Resolved Date Primary osteoarthritis of left hip 02/03/2021 Overview: Left--Dr. Vasquez (worse from 2011 to 2012) 12/16/2018--Left--near bone on bone apposition; Right--minimal degenerative change with eburnation of the acetabular rim documented as of this encounter (statuses as of 03/25/2023) [facility] History of Past illness Narrative* Problem Noted Date Resolved Date Primary osteoarthritis of left hip 02/03/2021 Overview: Left--Dr. Vasquez (worse from 2011 to 2012) 12/16/2018--Left--near bone on bone apposition; Right--minimal degenerative change with eburnation of the acetabular rim documented as of this encounter (statuses as of 04/01/2023) [facility] History of Past illness Narrative* Problem Noted Date Diagnosed Date Resolved Date Primary osteoarthritis of left hip 02/03/2021 Overview: Left--Dr. Vasquez (worse from 2011 to 2012) 12/16/2018--Left--near bone on bone apposition; Right--minimal degenerative change with eburnation of the acetabular rim documented as of this encounter (statuses as of 04/08/2023) [facility] History of Past illness Narrative* Problem Noted Date Diagnosed Date Resolved Date Primary osteoarthritis of left hip 02/03/2021 Overview: Left--Dr. Vasquez (worse from 2011 to 2012) 12/16/2018--Left--near bone on bone apposition; Right--minimal degenerative change with eburnation of the acetabular rim documented as of this encounter (statuses as of 04/16/2023) [facility] History of Past illness Narrative* Problem Noted Date Diagnosed Date Resolved Date Primary osteoarthritis of left hip 02/03/2021 Overview: Left--Dr. Vasquez (worse from 2011 to 2012) 12/16/2018--Left--near bone on bone apposition; Right--minimal degenerative change with eburnation of the acetabular rim documented as of this encounter (statuses as of 04/22/2023) [facility] History of Past illness Narrative* Problem Noted Date Diagnosed Date Resolved Date Primary osteoarthritis of left hip 02/03/2021 Overview: Left--Dr. Vasquez (worse from 2011 to 2012) 12/16/2018--Left--near bone on bone apposition; Right--minimal degenerative change with eburnation of the acetabular rim documented as of this encounter (statuses as of 04/25/2023) [facility] History of Past illness Narrative* Problem Noted Date Diagnosed Date Resolved Date Primary osteoarthritis of left hip 02/03/2021 Overview: Left--Dr. Vasquez (worse from 2011 to 2012) 12/16/2018--Left--near bone on bone apposition; Right--minimal degenerative change with eburnation of the acetabular rim documented as of this encounter (statuses as of 05/02/2023) [facility] History of Past illness Narrative* Problem Noted Date Diagnosed Date Resolved Date Primary osteoarthritis of left hip 02/03/2021 Overview: Left--Dr. Vasquez (worse from 2011 to 2012) 12/16/2018--Left--near bone on bone apposition; Right--minimal degenerative change with eburnation of the acetabular rim documented as of this encounter (statuses as of 05/03/2023) [facility] History of Past illness Narrative* Problem Noted Date Diagnosed Date Resolved Date Primary osteoarthritis of left hip 02/03/2021 Overview: Left--Dr. Vasquez (worse from 2011 to 2012) 12/16/2018--Left--near bone on bone apposition; Right--minimal degenerative change with eburnation of the acetabular rim documented as of this encounter (statuses as of 05/03/2023) [facility] History of Past illness Narrative* Problem Noted Date Diagnosed Date Resolved Date Primary osteoarthritis of left hip 02/03/2021 Overview: Left--Dr. Vasquez (worse from 2011 to 2012) 12/16/2018--Left--near bone on bone apposition; Right--minimal degenerative change with eburnation of the acetabular rim documented as of this encounter (statuses as of 05/06/2023) [facility] History of Past illness Narrative* Problem Noted Date Diagnosed Date Resolved Date Primary osteoarthritis of left hip 02/03/2021 Overview: Left--Dr. Vasquez (worse from 2011 to 2012) 12/16/2018--Left--near bone on bone apposition; Right--minimal degenerative change with eburnation of the acetabular rim documented as of this encounter (statuses as of 05/07/2023) [facility] History of Past illness Narrative* Problem Noted Date Diagnosed Date Resolved Date Primary osteoarthritis of left hip 02/03/2021 Overview: Left--Dr. Vasquez (worse from 2011 to 2012) 12/16/2018--Left--near bone on bone apposition; Right--minimal degenerative change with eburnation of the acetabular rim documented as of this encounter (statuses as of 05/08/2023) [facility] History of Past illness Narrative* Problem Noted Date Diagnosed Date Resolved Date Primary osteoarthritis of left hip 02/03/2021 Overview: Left--Dr. Vasquez (worse from 2011 to 2012) 12/16/2018--Left--near bone on bone apposition; Right--minimal degenerative change with eburnation of the acetabular rim documented as of this encounter (statuses as of 05/16/2023) [facility] History of Past illness Narrative* Problem Noted Date Diagnosed Date Resolved Date Primary osteoarthritis of left hip 02/03/2021 Overview: Left--Dr. Vasquez (worse from 2011 to 2012) 12/16/2018--Left--near bone on bone apposition; Right--minimal degenerative change with eburnation of the acetabular rim documented as of this encounter (statuses as of 05/20/2023) [facility] History of Past illness Narrative* Problem Noted Date Diagnosed Date Resolved Date Primary osteoarthritis of left hip 02/03/2021 Overview: Left--Dr. Vasquez (worse from 2011 to 2012) 12/16/2018--Left--near bone on bone apposition; Right--minimal degenerative change with eburnation of the acetabular rim documented as of this encounter (statuses as of 05/21/2023) [facility] History of Past illness Narrative* Problem Noted Date Diagnosed Date Resolved Date Primary osteoarthritis of left hip 02/03/2021 Overview: Left--Dr. Vasquez (worse from 2011 to 2012) 12/16/2018--Left--near bone on bone apposition; Right--minimal degenerative change with eburnation of the acetabular rim documented as of this encounter (statuses as of 05/22/2023) [facility] History of Past illness Narrative* Problem Noted Date Diagnosed Date Resolved Date Primary osteoarthritis of left hip 02/03/2021 Overview: Left--Dr. Vasquez (worse from 2011 to 2012) 12/16/2018--Left--near bone on bone apposition; Right--minimal degenerative change with eburnation of the acetabular rim documented as of this encounter (statuses as of 05/29/2023) [facility] History of Past illness Narrative* Problem Noted Date Diagnosed Date Resolved Date Primary osteoarthritis of left hip 02/03/2021 Overview: Left--Dr. Vasquez (worse from 2011 to 2012) 12/16/2018--Left--near bone on bone apposition; Right--minimal degenerative change with eburnation of the acetabular rim documented as of this encounter (statuses as of 05/29/2023) [facility] History of Past illness Narrative* Problem Noted Date Diagnosed Date Resolved Date Primary osteoarthritis of left hip 02/03/2021 Overview: Left--Dr. Vasquez (worse from 2011 to 2012) 12/16/2018--Left--near bone on bone apposition; Right--minimal degenerative change with eburnation of the acetabular rim documented as of this encounter (statuses as of 06/05/2023) [facility] History of Past illness Narrative* Problem Noted Date Diagnosed Date Resolved Date Primary osteoarthritis of left hip 02/03/2021 Overview: Left--Dr. Vasquez (worse from 2011 to 2012) 12/16/2018--Left--near bone on bone apposition; Right--minimal degenerative change with eburnation of the acetabular rim documented as of this encounter (statuses as of 06/06/2023) [facility] History of Past illness Narrative* Problem Noted Date Diagnosed Date Resolved Date Primary osteoarthritis of left hip 02/03/2021 Overview: Left--Dr. Vasquez (worse from 2011 to 2012) 12/16/2018--Left--near bone on bone apposition; Right--minimal degenerative change with eburnation of the acetabular rim documented as of this encounter (statuses as of 06/06/2023) [facility] History of Past illness Narrative* Problem Noted Date Diagnosed Date Resolved Date Primary osteoarthritis of left hip 02/03/2021 Overview: Left--Dr. Vasquez (worse from 2011 to 2012) 12/16/2018--Left--near bone on bone apposition; Right--minimal degenerative change with eburnation of the acetabular rim documented as of this encounter (statuses as of 06/07/2023) [facility] History of Past illness Narrative* Problem Noted Date Diagnosed Date Resolved Date Primary osteoarthritis of left hip 02/03/2021 Overview: Left--Dr. Vasquez (worse from 2011 to 2012) 12/16/2018--Left--near bone on bone apposition; Right--minimal degenerative change with eburnation of the acetabular rim documented as of this encounter (statuses as of 06/11/2023) [facility] History of Past illness Narrative* Problem Noted Date Diagnosed Date Resolved Date Primary osteoarthritis of left hip 02/03/2021 Overview: Left--Dr. Vasquez (worse from 2011 to 2012) 12/16/2018--Left--near bone on bone apposition; Right--minimal degenerative change with eburnation of the acetabular rim documented as of this encounter (statuses as of 06/21/2023) [facility] History of Past illness Narrative* Problem Noted Date Diagnosed Date Resolved Date Primary osteoarthritis of left hip 02/03/2021 Overview: Left--Dr. Vasquez (worse from 2011 to 2012) 12/16/2018--Left--near bone on bone apposition; Right--minimal degenerative change with eburnation of the acetabular rim documented as of this encounter (statuses as of 06/26/2023) [facility] Diagnosis Pain in left hip- Primary Pain in joint, pelvic region and thigh [facility] Diagnosis Chronic midline low back pain without sciatica DDD (degenerative disc disease), lumbar Degeneration of lumbar or lumbosacral intervertebral disc Lumbar spondylosis Lumbosacral spondylosis without myelopathy [facility] Diagnosis Chronic midline low back pain without sciatica- Primary DDD (degenerative disc disease), lumbar Degeneration of lumbar or lumbosacral intervertebral disc Lumbar spondylosis Lumbosacral spondylosis without myelopathy Scoliosis of lumbar spine, unspecified scoliosis type [facility] Diagnosis Status post total replacement [...] unspecified scoliosis type [facility] Diagnosis Type 2 diabetes mellitus with other specified complication, without long-term current use of insulin (HCC)- Primary Low vitamin B12 level Other B-complex deficiencies Vitamin D deficiency Unspecified vitamin D deficiency Elevated LDL cholesterol level Pure hypercholesterolemia Breast cancer screening by mammogram Colon cancer screening Special screening for malignant neoplasms, colon [facility] Diagnosis Rectal bleeding- Primary Hemorrhage of rectum and anus Colon cancer screening Special screening for malignant neoplasms, colon [facility] Breast cancer screening by mammogram [facility]-19- [facility] Diagnosis Rectal bleeding Hemorrhage of rectum and anus [facility] Diagnosis Status post total replacement of left hip [facility] this [facility]* Diagnosis Type 2 diabetes mellitus with other specified complication, without long-term current use of insulin ([facility])- Primary Low vitamin B12 level Other B-complex deficiencies Gastroesophageal reflux disease, unspecified whether esophagitis present Vitamin D deficiency Unspecified vitamin D deficiency Elevated LDL cholesterol level Pure hypercholesterolemia Encounter for immunization Need for other specified prophylactic vaccination against single bacterial disease [facility] Diagnosis Hammer toes of both feet- Primary [facility]* Diagnosis Bursitis of other bursa of right hip- Primary Fall, sequela [facility] Diagnosis Low vitamin B12 level Other B-complex deficiencies [facility] Diagnosis Hip pain, left Pain in joint, pelvic region and thigh Cervical neck pain with evidence of disc disease Other and unspecified disc disorder of cervical region [facility] this [facility] Diagnosis Status post total replacement of left hip [facility] Diagnosis Chronic pain of right hip- Primary S/P total left hip arthroplasty Multiple sclerosis (HCC) Multiple sclerosis [facility] Diagnosis Trochanteric bursitis of right hip- Primary Enthesopathy of hip region [facility] Diagnosis Trochanteric bursitis of right hip- Primary Enthesopathy of hip region Primary osteoarthritis of right hip Primary localized osteoarthrosis, pelvic region and thigh [facility] Diagnosis Trochanteric bursitis of right hip- Primary Enthesopathy of hip region [facility] Diagnosis Trochanteric bursitis of right hip- Primary Enthesopathy of hip region [facility] Diagnosis Trochanteric bursitis of right hip- Primary Enthesopathy of hip region [facility] Diagnosis Type 2 diabetes mellitus with other specified complication, without long-term current use of insulin ([facility])- Primary Vitamin D deficiency Unspecified vitamin D [...] Fall, initial encounter [facility] Diagnosis Coccyx pain- Primary Other disorder of coccyx Primary osteoarthritis of right hip Primary localized osteoarthrosis, pelvic region and thigh [facility] Diagnosis Osteonecrosis of right hip (HCC)- Primary [facility] Diagnosis Presence of right artificial hip joint- Primary Hip joint replacement by other means Osteonecrosis of right hip (HCC) Preoperative examination Preoperative examination, unspecified [facility] Diagnosis Osteonecrosis of right hip (HCC)- Primary [facility] Diagnosis Osteonecrosis of right hip (HCC)- Primary Pre-op testing Preoperative examination, unspecified Controlled type 2 diabetes mellitus without complication, without long-term current use of insulin (HCC) [facility]* Diagnosis Osteonecrosis of right hip (HCC)- [...] pain without sciatica [facility] this [facility]* Diagnosis Status post hip replacement, right- Primary Abnormality of gait [facility] this [facility]* Diagnosis Status post hip replacement, right- Primary Abnormality of gait Trochanteric bursitis of right hip Enthesopathy of hip region [facility] this [facility]* Diagnosis Status post hip replacement, right- Primary Weakness of both hips Abnormality of gait [facility] this [facility]* Diagnosis Status post hip replacement, right- Primary Weakness of both hips [facility] Diagnosis Type 2 diabetes mellitus without complication, without long-term current use of insulin ([facility])- Primary Vitamin D deficiency Unspecified vitamin D deficiency Elevated LDL cholesterol level Pure hypercholesterolemia Chronic midline low back pain without sciatica Encounter for long-term current use of medication Multiple sclerosis (HCC) Multiple sclerosis SI (sacroiliac) joint inflammation (HCC) Sacroiliitis, not elsewhere classified S/P hip replacement, bilateral [facility] this [facility]* Diagnosis Low vitamin B12 level Other B-complex deficiencies [facility] this [facility]* Diagnosis COVID-19 virus infection- Primary [facility]* Diagnosis Type 2 diabetes mellitus without complication, without long-term current use of insulin ([facility])- Primary Vitamin D deficiency Unspecified vitamin D deficiency Primary osteoarthritis of both hips Primary localized osteoarthrosis, pelvic region and thigh Chronic midline low back pain without sciatica Elevated LDL cholesterol level Pure hypercholesterolemia [facility] this [facility]* Diagnosis Acute pain of left knee- Primary Contusion of left knee, initial encounter Strain of left quadriceps, initial encounter Type 2 diabetes mellitus with other specified complication, without long-term current use of insulin ([facility]) [facility] this [facility] Diagnosis Pain- Primary Generalized pain [facility] this [facility]* Diagnosis Pain- Primary Generalized pain [facility] Diagnosis Primary osteoarthritis of left knee- Primary Primary localized osteoarthrosis, lower leg Prepatellar effusion of left knee [facility] this [facility]* Diagnosis Status post total replacement of left hip- Primary Status post hip replacement, right Fall, initial encounter documented in this encounter [facility]* Diagnosis Pre-operative examination- Primary Preoperative examination, [...] Dizziness and giddiness documented in this encounter [facility] note* Diagnosis Pre-operative examination- Primary Preoperative examination, [...] knee, initial encounter documented in this encounter [facility] note* Diagnosis Pre-operative examination- Primary Preoperative examination, [...] region and thigh [facility] Diagnosis Pre-operative examination- Primary Preoperative examination, [...] hip replacement, right [facility] Diagnosis Pre-operative examination- Primary Preoperative examination, [...] by other means documented in this encounter [facility] note* Diagnosis Pre-operative examination- Primary Preoperative examination, [...] hazards to health documented in this encounter [facility] note* Diagnosis Pre-operative examination- Primary Preoperative examination, [...] hazards to health documented in this encounter [facility] note* Diagnosis Pre-operative examination- Primary Preoperative examination, [...] hazards to health documented in this encounter [facility] note* Diagnosis Pre-operative examination- Primary Preoperative examination, [...] hazards to health documented in this encounter [facility] note* Diagnosis Pre-operative examination- Primary Preoperative examination, [...] replacement, right- Primary documented in this encounter [facility] note* Diagnosis Pre-operative examination- Primary Preoperative examination, [...] blood chemistry, unspecified documented in this encounter [facility] note* Diagnosis Pre-operative examination- Primary Preoperative examination, [...] replacement, right- Primary documented in this encounter [facility] note* Diagnosis Pre-operative examination- Primary Preoperative examination, [...] hip replacement, right documented in this encounter [facility] note* Diagnosis Pre-operative examination- Primary Preoperative examination, [...] and behavioral disorders [facility]* Diagnosis Pre-operative examination- Primary Preoperative examination, [...] specified cardiac dysrhythmias [facility]* Diagnosis Pre-operative examination- Primary Preoperative examination, [...] dizziness with presyncope documented in this encounter [facility] note* Diagnosis Pre-operative examination- Primary Preoperative examination, [...] (HCC) Atrial flutter documented in this encounter [facility] note* Diagnosis Pre-operative examination- Primary Preoperative examination, [...] (HCC) Atrial flutter documented in this encounter [facility] note* Diagnosis Pre-operative examination- Primary Preoperative examination, [...] complication, without long-term current use of insulin ([facility])- Primary Fecal incontinence with incomplete defecation Age-related osteoporosis without current pathological fracture 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* Diagnosis Pre-operative examination- Primary Preoperative examination, [...] single bacterial disease documented in this encounter [facility] note* Diagnosis Pre-operative examination- Primary Preoperative examination, [...] hazards to health documented in this encounter [facility] note* Diagnosis Pre-operative examination- Primary Preoperative examination, [...] thigh, initial encounter documented in this encounter [facility] note* Diagnosis Pre-operative examination- Primary Preoperative examination, [...] (HCC) Atrial flutter documented in this encounter [facility] note* Diagnosis Pre-operative examination- Primary Preoperative examination, [...] Asymptomatic postmenopausal status documented in this encounter [facility] note* Diagnosis Pre-operative examination- Primary Preoperative examination, [...] scoliosis, thoracolumbar region documented in this encounter [facility] note* Diagnosis Onset Date Resolution Status Admit Date Aortic valve insufficiency chronic April 20, 2025 1:05pm Mitral regurgitation chronic April 20, 2025 1:05pm Pre-syncope chronic April 20 1:05pm SVT (supraventricular tachycardia) chronic April 20, 2025 1:05pm Type 2 diabetes mellitus chronic April 20, 2025 1:05pm [facility] Work Phone: Evaluation note* Diagnosis Pre-operative examination- Primary Preoperative examination, [...] of tobacco use, presenting hazards to health Anemia, unspecified type- Primary Elevated BUN Other abnormal blood chemistry Low vitamin B12 level Other B-complex deficiencies [facility] Inst[facility] Thank you for trusting us with your care today! Your labs images are reassuring. Please drink more oral fluids I recommend Gatorade, Pedialyte and Body Armor. Please take Tylenol (2 pills, 650 mg), ibuprofen (2 pills, 400 mg) every 6 hours as needed for pain and fever control. Please return to the emergency department if your symptoms change or worsen. Please follow with your primary care physician for further outpatient evaluation and management.[facility] Work Phone: Reason for referral (narrative)* Diagnostic Procedure Only (Routine) - Pending Review Specialty Diagnoses / Procedures Referred By Katerina t Referred To Contact XR IMAGING Diagnoses Pain in left hip Procedures XR PELVIS 1V AP RADIOLOGIC EXAMINATION PELVIS 1/2 VIEWS Fredy Carrasco APRN.[employer]AD AT[employer] DEVELOPER [address] [address] Xr Imaging Referral ID Status Reason Start Date Expiration Date Visits Requested Visits Authorized [id number] Pending Review Auto-Generat ed Referral 01/16/2022 02/15/2023 1 1 [facility] for referral (narrative)* Outpatient Procedure (Routine) - Authorized Specialty Diagnoses / Procedures Referred By Contac t Referred To Contact [facility] Diagnoses Rectal bleeding Procedures COLONOSCOPY DIAGNOSTIC COLONOSCOPY FLX DX W/COLLJ SPEC WHEN Nuha Boyle MD [address] [facility] [place] [address] [facility] Disease [address] [address] Referral ID Status Reason Start Date Expiration Date Visits Requested Visits Authorized [id number] Authorized Auto-Generat ed Referral 03/05/2022 03/05/2023 1 1 [facility] for referral (narrative)* Outpatient Procedure (Routine) - Closed Specialty Diagnoses / Procedures Referred By Contac t Referred To Contact [facility] Diagnoses Rectal bleeding Procedures COLONOSCOPY DIAGNOSTIC COLONOSCOPY FLX DX W/COLLJ SPEC WHEN Nuha Boyle MD [address] [place] [address] [address] Referral ID Status Reason Start Date Expiration Date V isits Requested Visits Authorized [id number] Closed Auto-Generate d Referral 03/05/2022 03/05/2023 1 1 [facility] for referral (narrative)* Diagnostic Procedure Only (Routine) - Closed Specialty Diagnoses / Procedures Referred By Contac t Referred To Contact XR IMAGING Diagnoses Bursitis of other bursa of right hip Procedures XR HIP GENERAL 3V PELV/AP/LAT RIGHT RADEX HIP UNILATERAL WITH PELVIS 2-3 VIEWS Linda Silva APRN.[employer] DEVELOPER [address] [place] [address] Xr Imaging Referral ID Status Reason Start Date Expiration Date V isits Requested Visits Authorized [id number] Closed Auto-Generate d Referral 09/14/2022 10/14/2023 1 1 [facility] for referral (narrative)* Diagnostic Procedure Only (Routine) - Closed Specialty Diagnoses / Procedures Referred By Contac t Referred To Contact XR IMAGING Diagnoses Acute pain of left knee Contusion of left knee, initial encounter Procedures XR KNEE GENERAL 4V AP BOTH/PA BOTH/LAT/MERC LEFT RADIOLOGIC EXAM KNEE COMPLETE 4/MORE VIEWS Bg Chavarria MD [address] [place] [address] [place] [address] Referral ID Status Reason Start Date Expiration Date V isits Requested Visits Authorized [id number] Closed Auto-Generate d Referral 03/31/2024 04/30/2025 1 1 [facility] for referral (narrative)* Diagnostic Procedure Only (Routine) - Authorized Specialty Diagnoses / Procedures Referred By Contac t Referred To Contact XR IMAGING Diagnoses Pain Procedures XR HIP GENERAL 3V PELV/AP/LAT LEFT RADEX HIP UNILATERAL WITH PELVIS 2-3 VIEWS Lorena Jacobsen MD [address] [address] [place] [address] Referral ID Status Reason Start Date Expiration Date Visits Requested Visits Authorized [id number] Authorized Auto-Generat ed Referral 04/09/2024 05/09/2025 1 1 [facility] for referral (narrative)* Diagnostic Procedure Only (Routine) - New Request Specialty Diagnoses / Procedures Referred By Contac t Referred To Contact XR IMAGING Diagnoses Pain Procedures XR KNEE GENERAL 4V AP BOTH/PA BOTH/LAT/MERC LEFT RADIOLOGIC EXAM KNEE COMPLETE 4/MORE VIEWS Joe Jiang PA-C [address] [address] [place] [address] Referral ID Status Reason Start Date Expiration Date Visits Requested Visits Authorized [id number] New Request Auto-Generat ed Referral 04/28/2024 05/28/2025 1 1 [facility] for referral (narrative)* Diagnostic Procedure Only (Routine) - Closed Specialty Diagnoses / Procedures Referred By Contac t Referred To Contact XR IMAGING Diagnoses Acute pain of left knee Contusion of left knee, initial encounter Procedures XR KNEE GENERAL 4V AP BOTH/PA BOTH/LAT/MERC LEFT RADIOLOGIC EXAM KNEE COMPLETE 4/MORE VIEWS Bg Chavarria MD [address] [place] [address] [place] [address] Referral ID Status Reason Start Date Expiration Date V isits Requested Visits Authorized [id number] Closed Auto-Generate d Referral 03/31/2024 04/30/2025 1 1 [facility] for referral (narrative)* Diagnostic Procedure Only (Routine) - Closed Specialty Diagnoses / Procedures Referred By Contac t Referred To Contact XR IMAGING Diagnoses Pain in left hip Procedures XR HIP 2V AP/LAT LEFT (AK,FL,ME,UN) RADEX HIP UNILATERAL WITH PELVIS 2-3 VIEWS Fredy Carrasco APRN.CNP [address] [place] [address] [place] [address] Referral ID Status Reason Start Date Expiration Date V isits Requested Visits Authorized [id number] Closed Auto-Generate d Referral 04/16/2024 05/16/2025 1 1 [facility] for referral (narrative)* Diagnostic Procedure Only (Routine) - Closed Specialty Diagnoses / Procedures Referred By Contac t Referred To Contact XR IMAGING Diagnoses Status post hip replacement, right Procedures XR HIP GENERAL 3V PELV/AP/LAT RIGHT RADEX HIP UNILATERAL WITH PELVIS 2-3 VIEWS Sincere Hopkins MD [address] [place] [address] [place] [address] Referral ID Status Reason Start Date Expiration Date V isits Requested Visits Authorized [id number] Closed Auto-Generate d Referral 10/16/2023 11/14/2024 1 1 [facility] for referral (narrative)* Diagnostic Procedure Only (Routine) - Closed Specialty Diagnoses / Procedures Referred By Contac t Referred To Contact XR IMAGING Diagnoses Status post right hip replacement Procedures XR HIP GENERAL 3V PELV/AP/LAT RIGHT RADEX HIP UNILATERAL WITH PELVIS 2-3 VIEWS Joe Jiang PA-C [address] [address] [place] [address] Referral ID Status Reason Start Date Expiration Date V isits Requested Visits Authorized [id number] Closed Auto-Generate d Referral 07/08/2023 08/06/2024 1 1 [facility] for referral (narrative)* Diagnostic Procedure Only (Routine) - Closed Specialty Diagnoses / Procedures Referred By Contac t Referred To Contact XR IMAGING Diagnoses Trochanteric bursitis of right hip Pain of right hip Fall, initial encounter Procedures XR HIP GENERAL 3V PELV/AP/LAT RIGHT RADEX HIP UNILATERAL WITH PELVIS 2-3 VIEWS Linda Silva APRN.CNP [address] [place] [address] [place] [address] Referral ID Status Reason Start Date Expiration Date V isits Requested Visits Authorized [id number] Closed Auto-Generate d Referral 05/03/2023 06/01/2024 1 1 [facility] for referral (narrative)* Diagnostic Procedure Only (Routine) - Closed Specialty Diagnoses / Procedures Referred By Contac t Referred To Contact XR IMAGING Diagnoses Pain in right hip Procedures XR HIP 2V AP/LAT RIGHT (AK,FL,ME) RADEX HIP UNILATERAL WITH PELVIS 2-3 VIEWS James Marcano PA-C [address] [place] [address] [place] [address] Referral ID Status Reason Start Date Expiration Date V isits Requested Visits Authorized [id number] Closed Auto-Generate d Referral 02/05/2023 03/06/2024 1 1 [facility] for referral (narrative)* Diagnostic Procedure Only (Routine) - Closed Specialty Diagnoses / Procedures Referred By Contac t Referred To Contact XR IMAGING Diagnoses Bursitis of other bursa of right hip Procedures XR HIP GENERAL 3V PELV/AP/LAT RIGHT RADEX HIP UNILATERAL WITH PELVIS 2-3 VIEWS Linda Silva APRN.CNP [address] [place] [address] [place] [address] Referral ID Status Reason Start Date Expiration Date V isits Requested Visits Authorized [id number] Closed Auto-Generate d Referral 09/14/2022 10/14/2023 1 1 [facility] for referral (narrative)* Diagnostic Procedure Only (Routine) - Closed Specialty Diagnoses / Procedures Referred By Contac t Referred To Contact XR IMAGING Diagnoses Acquired hammer toe Procedures XR FOOT GENERAL 3V AP/LAT/OBL BILATERAL RADEX FOOT COMPLETE MINIMUM 3 VIEWS Elton Koch [address] [place] [address] [place] [address] Referral ID Status Reason Start Date Expiration Date V isits Requested Visits Authorized [id number] Closed Auto-Generate d Referral 09/05/2022 10/05/2023 1 1 [facility] for referral (narrative)* Diagnostic Procedure Only (Routine) - New Request Specialty Diagnoses / Procedures Referred By Contac t Referred To Contact XR IMAGING Diagnoses Status post hip replacement, right Procedures XR HIP GENERAL 3V PELV/AP/LAT RIGHT RADEX HIP UNILATERAL WITH PELVIS 2-3 VIEWS Sincere Hopkins MD [address] [place] [address] [place] [address] Referral ID Status Reason Start Date Expiration Date Visits Requested Visits Authorized [id number] New Request Auto-Generat ed Referral 07/03/2024 08/02/2025 1 1 [facility] for referral (narrative)No reason for referral information [facility] Work Phone: [facility] [place] for visit Narrative* Auth/Cert Specialty Diagnoses / Procedures Referred By Contac t Referred To Contact Diagnoses Chronic midline low [...] ADD FACET JOINT [facility] [address] [place] [address] Referral ID Status Reason Start Date Expiration Date Visits Re quested Visits Authorized [id number] 1 1 [facility] for visit Narrative* Outpatient Procedure (Routine) - Closed Specialty Diagnoses / Procedures Referred By Contac t Referred To Contact [facility] Diagnoses Rectal bleeding Procedures COLONOSCOPY DIAGNOSTIC COLONOSCOPY FLX DX W/COLLJ SPEC WHEN [facility] Nuha Saab MD [address] [place] [address] [facility] [address] [place] [address] Referral ID Status Reason Start Date Expiration Date V isits Requested Visits Authorized [id number] Closed Auto-Generate d Referral 03/05/2022 03/05/2023 1 1 [facility] for visit Narrative* Diagnostic Procedure Only (Routine) - Closed Specialty Diagnoses / Procedures Referred By Contac t Referred To Contact XR IMAGING Diagnoses Acute pain of left knee Contusion of left knee, initial encounter Procedures XR KNEE GENERAL 4V AP BOTH/PA BOTH/LAT/MERC LEFT RADIOLOGIC EXAM KNEE COMPLETE 4/MORE VIEWS Bg Chavarria MD [address] [place] [address] [place] [address] Referral ID Status Reason Start Date Expiration Date V isits Requested Visits Authorized [id number] Closed Auto-Generate d Referral 03/31/2024 04/30/2025 1 1 [facility] for visit Narrative* Diagnostic Procedure Only (Routine) - Closed Specialty Diagnoses / Procedures Referred By Contac t Referred To Contact XR IMAGING Diagnoses Pain in left hip Procedures XR HIP 2V AP/LAT LEFT (AK,FL,ME,UN) RADEX HIP UNILATERAL WITH PELVIS 2-3 VIEWS Fredy Carrasco APRN.[facility] [address] [place] [address] [place] [address] Referral ID Status Reason Start Date Expiration Date V isits Requested Visits Authorized [id number] Closed Auto-Generate d Referral 04/16/2024 05/16/2025 1 1 [facility] for visit Narrative* Diagnostic Procedure Only (Routine) - Closed Specialty Diagnoses / Procedures Referred By Contac t Referred To Contact XR IMAGING Diagnoses Status post hip replacement, right Procedures XR HIP GENERAL 3V PELV/AP/LAT RIGHT RADEX HIP UNILATERAL WITH PELVIS 2-3 VIEWS Sincere Hopkins MD [address] [place] [address] [place] [address] Referral ID Status Reason Start Date Expiration Date V isits Requested Visits Authorized [id number] Closed Auto-Generate d Referral 10/16/2023 11/14/2024 1 1 [facility] for visit Narrative* Diagnostic Procedure Only (Routine) - Closed Specialty Diagnoses / Procedures Referred By Contac t Referred To Contact XR IMAGING Diagnoses Status post right hip replacement Procedures XR HIP GENERAL 3V PELV/AP/LAT RIGHT RADEX HIP UNILATERAL WITH PELVIS 2-3 VIEWS Joe Jiang PA-C [address] [address] [place] [address] Referral ID Status Reason Start Date Expiration Date V isits Requested Visits Authorized [id number] Closed Auto-Generate d Referral 07/08/2023 08/06/2024 1 1 [facility] for visit Narrative* Diagnostic Procedure Only (Routine) - Closed Specialty Diagnoses / Procedures Referred By Contac t Referred To Contact XR IMAGING Diagnoses Trochanteric bursitis of right hip Pain of right hip Fall, initial encounter Procedures XR HIP GENERAL 3V PELV/AP/LAT RIGHT RADEX HIP UNILATERAL WITH PELVIS 2-3 VIEWS Linda Silva APRN.[employer] [address] [place] [address] [place] [address] Referral ID Status Reason Start Date Expiration Date V isits Requested Visits Authorized [id number] Closed Auto-Generate d Referral 05/03/2023 06/01/2024 1 1 [facility] for visit Narrative* Diagnostic Procedure Only (Routine) - Closed Specialty Diagnoses / Procedures Referred By Contac t Referred To Contact XR IMAGING Diagnoses Pain in right hip Procedures XR HIP 2V AP/LAT RIGHT (AK,FL,ME) RADEX HIP UNILATERAL WITH PELVIS 2-3 VIEWS James Marcano PA-C [address] [place] [address] [place] [address] Referral ID Status Reason Start Date Expiration Date V isits Requested Visits Authorized [id number] Closed Auto-Generate d Referral 02/05/2023 03/06/2024 1 1 [facility] for visit Narrative* Diagnostic Procedure Only (Routine) - Closed Specialty Diagnoses / Procedures Referred By Contac t Referred To Contact XR IMAGING Diagnoses Bursitis of other bursa of right hip Procedures XR HIP GENERAL 3V PELV/AP/LAT RIGHT RADEX HIP UNILATERAL WITH PELVIS 2-3 VIEWS Linda Silva APRN.[employer] [address] [place] [address] [place] [address] Referral ID Status Reason Start Date Expiration Date V isits Requested Visits Authorized [id number] Closed Auto-Generate d Referral 09/14/2022 10/14/2023 1 1 [facility] for visit Narrative* Diagnostic Procedure Only (Routine) - Closed Specialty Diagnoses / Procedures Referred By Contac t Referred To Contact XR IMAGING Diagnoses Acquired hammer toe Procedures XR FOOT GENERAL 3V AP/LAT/OBL BILATERAL RADEX FOOT COMPLETE MINIMUM 3 VIEWS Elton Koch [address] [place] [address] [place] [address] Referral ID Status Reason Start Date Expiration Date V isits Requested Visits Authorized [id number] Closed Auto-Generate d Referral 09/05/2022 10/05/2023 1 1 [facility] for visit Narrative* Diagnostic Procedure Only (Routine) - Closed Specialty Diagnoses / Procedures Referred By Contac t Referred To Contact XR IMAGING Diagnoses Status post hip replacement, right Procedures XR HIP GENERAL 3V PELV/AP/LAT RIGHT RADEX HIP UNILATERAL WITH PELVIS 2-3 VIEWS Sincere Hopkins MD [address] [place] [address] [place] [address] Referral ID Status Reason Start Date Expiration Date V isits Requested Visits Authorized [id number] Closed Auto-Generate d Referral 07/03/2024 08/02/2025 1 1 [facility] for visit Narrative* Diagnostic Procedure Only (Routine) - Closed Specialty Diagnoses / Procedures Referred By Contac t Referred To Contact XR IMAGING Diagnoses Asymptomatic postmenopausal status Procedures DXA-AXIAL SKELETON DXA BONE DENSITY STUDY / SITES AXIAL Bg Alamo MD [address] [place] [address] Phone: tel: fax: [place] [address] Referral ID Status Reason Start Date Expiration Date V isits Requested Visits Authorized [id number] Closed Auto-Generate d Referral 11/20/2024 12/20/[address] [facility] Advance Directives No Advanced Directives Records FoundDocuments on File Type Date Recorded Patient Email Campaign Specialist Expl anation Advance Directive(s) 12/12/2021 12:41 PM Advance Directive(s) 11/07/2021 6:39 AM Advance Directive(s) 10/20/2021 12:48 PM Advance Directive(s) 02/01/2021 7:48 AM Advance Directive(s) 01/31/2021 4:02 PM Advance Directive(s) 03/28/2016 5:57 PM Documents on File Type Date Recorded Patient Email Campaign Specialist Expl anation Advance Directive(s) 12/12/2021 12:41 PM Advance Directive(s) 11/07/2021 6:39 AM Advance Directive(s) 10/20/2021 12:48 PM Advance Directive(s) 02/01/2021 7:48 AM Advance Directive(s) 01/31/2021 4:02 PM Advance Directive(s) 03/28/2016 5:57 PM Documents on File Type Date Recorded Patient Email Campaign Specialist Expl anation Advance Directive(s) 02/08/2022 3:44 PM Advance Directive(s) 12/12/2021 12:41 PM Advance Directive(s) 11/07/2021 6:39 AM Advance Directive(s) 10/20/2021 12:48 PM Advance Directive(s) 02/01/2021 7:48 AM Advance Directive(s) 01/31/2021 4:02 PM Advance Directive(s) 03/28/2016 5:57 PM Documents on File Type Date Recorded Patient Email Campaign Specialist Expl anation Advance Directive(s) 02/20/2022 6:34 AM Advance Directive(s) 02/16/2022 9:32 AM Advance Directive(s) 02/08/2022 3:44 PM Advance Directive(s) 12/12/2021 12:41 PM Advance Directive(s) 11/07/2021 6:39 AM Advance Directive(s) 10/20/2021 12:48 PM Advance Directive(s) 02/01/2021 7:48 AM Advance Directive(s) 01/31/2021 4:02 PM Advance Directive(s) 03/28/2016 5:57 PM Documents on File Type Date Recorded Patient Email Campaign Specialist Expl anation Advance Directive(s) 02/20/2022 6:34 AM Advance Directive(s) 02/16/2022 9:32 AM Advance Directive(s) 02/08/2022 3:44 PM Advance Directive(s) 12/12/2021 12:41 PM Advance Directive(s) 11/07/2021 6:39 AM Advance Directive(s) 10/20/2021 12:48 PM Advance Directive(s) 02/01/2021 7:48 AM Advance Directive(s) 01/31/2021 4:02 PM Advance Directive(s) 03/28/2016 5:57 PM Documents on File Type Date Recorded Patient Email Campaign Specialist Expl anation Advance Directive(s) 01/31/2021 4:02 PM Documents on File Type Date Recorded Patient Email Campaign Specialist Expl anation Advance Directive(s) 01/31/2021 4:02 PM Documents on File Type Date Recorded Patient Email Campaign Specialist Expl anation Advance Directive(s) 07/13/2023 1:18 PM Advance Directive(s) 01/31/2021 4:02 PM Latest Code Status on File Code Status Date Activated Date Inactivated Comments Full Code 07/01/2023 11:48 AM 07/08/2023 5:15 PM Question Answer Comments Full Code Order Discussed With: Patient Documents on File Type Date Recorded Patient Email Campaign Specialist Expl anation Advance Directive(s) 07/13/2023 1:18 PM [...] Date/ Time Advance Directives Yes May 8:08pm Advance Directive Response Recorded Date/ Time Do you have a Healthcare Power of Physiological Chemist? Yes May 22, 2025 5:08pm Advance Directives Yes May 8:08pm Medications Administered [...] Referral Specialty Diagnoses / Procedures Referred By Contconchis t Referred To Contact Gastroenterology Diagnoses Colon cancer screening Procedures CONSULT TO GASTROENTEROLOGY OFFICE/OUTPATIENT [facility] 60-74 MINUTES Bg Chavarria MD [address] [place] [address] Referral ID Status Reason Start Date Expiration Date Visits Requested Visits Authorized [id number] Authorized PCP Requested Referral 02/27/2022 02/27/2023 1 1 Specialty Diagnoses / Procedures Referred By Contac t Referred To Contact BR IMAGING Diagnoses Breast cancer screening by mammogram Procedures ANGIE SCREENING SCREENING MAMMOGRAPHY BI 2-VIEW BREAST INC CAD Bg Chavarria MD [address] [place] [address] [facility] [address] [place] [address] Referral ID Status Reason Start Date Expiration Date Visits Requested Visits Authorized [id number] Authorized Auto-Generat ed Referral 02/27/2022 05/28/2022 3 1 Referral ID Status Reason Start Date Expiration Date V isits Requested Visits Authorized [id number] Closed Auto-Generate d Referral 02/27/2022 05/28/2022 3 1 Specialty Diagnoses / Procedures Referred By Contac t Referred To Contact Podiatry Diagnoses Hammer toes of both feet Procedures CONSULT TO PODIATRY OFFICE/OUTPATIENT [facility] 60-74 MINUTES Linda Silva APRN.[employer] [address] [id number] Elton Koch [address] [place] [address] Referral ID Status Reason Start Date Expiration Date Visits Requested Visits Authorized [id number] Authorized PCP Requested Referral 2 08/14/2023 1 1 Specialty Diagnoses / Procedures Referred By Contac t Referred To Contact Diagnoses Chronic pain of right hip Luis Manuel Hernandez, BINDERY SUPERVISOR.WAREHOUSE SUPERVISOR [address] [id number] Referral ID Status Reason Start Date Expiration Date V isits Requested Visits Authorized [id number] Pending Review 1 1 Specialty Diagnoses / Procedures Referred By Contac t Referred To Contact XR IMAGING Diagnoses Chronic pain of right hip Procedures XR HIP GENERAL 3V PELV/AP/LAT RIGHT RADEX HIP UNILATERAL WITH PELVIS 2-3 VIEWS Luis Manuel Hernandez, BINDERY SUPERVISOR.WAREHOUSE SUPERVISOR [address] [place] [address] Xr Imaging Referral ID Status Reason Start Date Expiration Date Visits Requested Visits Authorized [id number] Pending Review Auto-Generat ed Referral 02/04/2023 03/05/2024 1 1 Specialty Diagnoses / Procedures Referred By Contac t Referred To Contact [facility] Diagnoses Trochanteric bursitis of right hip Procedures PT REHAB FOLLOW UP ORDER THERAPEUTIC EXERCISES RE, EA 15 MIN. Zhen Powell, PT [address] [place] [address] [facility] [place] [address] [place] [address] Referral ID Status Reason Start Date Expiration Date Visits Requested Visits Authorized [id number] Pending Review PCP Requested Referral Auto-Generate d Referral 04/08/2023 07/07/2023 1 1 Specialty Diagnoses / Procedures Referred By Contac t Referred To Contact Diagnoses Trochanteric bursitis of right hip Pain of right hip Fall, initial encounter Linda Silva APRN.[employer]ELOPER [address] [place] [address] Referral ID Status Reason Start Date Expiration Date Visits Re quested Visits Authorized [id number] Closed 1 1 Specialty Diagnoses / Procedures Referred By Contac t Referred To Contact XR IMAGING Diagnoses Trochanteric bursitis of right hip Pain of right hip Fall, initial encounter Procedures XR HIP GENERAL 3V PELV/AP/LAT RIGHT RADEX HIP UNILATERAL WITH PELVIS 2-3 VIEWS Linda Silva APRN.[employer] DEVEL[employer] [address] [place] [address] X[facility] Imaging Referral ID Status Reason Start Date Expiration Date V isits Requested Visits Authorized [id number] Closed Auto-Generate d Referral 05/03/2023 06/01/2024 1 1 Specialty Diagnoses / Procedures Referred By Contac t Referred To Contact Diagnoses Osteonecrosis of right hip (HCC) Fredy Carrasco APRN.[employer]ELOPER [address] [place] [address] Referral ID Status Reason Start Date Expiration Date Visits Re quested Visits Authorized [id number] Closed 1 1 Specialty Diagnoses / Procedures Referred By Pjac t Referred To Contact CT IMAGING Diagnoses Presence of right artificial hip joint Osteonecrosis of right hip (HCC) Preoperative examination Procedures CT HIP WO IVCON RIGHT CT LOWER EXTREMITY W/O CONTRAST MATERIAL Fredy Carrasco APRN.[employer] DEVEL[employer] [address] [place] [address] [place] [address] Referral ID Status Reason Start Date Expiration Date Visits Requested Visits Authorized [id number] Pending Review Auto-Generat ed Referral 05/21/2023 06/19/2024 1 1 Specialty Diagnoses / Procedures Referred By Contac t Referred To Contact Diagnoses Osteonecrosis of right hip (HCC) Pre-op testing Procedures PACC PRE-SURGICAL PLANNING CONSULT Joe Jiang PA-C [address] [place] [address] Referral ID Status Reason Start Date Expiration Date Visits Requested Visits Authorized [id number] Ref Not Required PCP Requested Referral 06/05/2023 06/04/2024 1 1 Specialty Diagnoses / Procedures Referred By Katerina t Referred To Contact [facility] Diagnoses Status post hip replacement, right SI (sacroiliac) joint inflammation (HCC) Chronic midline low back pain without sciatica Procedures CONSULT TO PHYSICAL THERAPY PHYSICAL THERAPY EVALUATION HIGH COMPLEX 45 MINS Sincere Hopkins MD [address] [place] [address] [facility] [address] [address] Referral ID Status Reason Start Date Expiration Date Visits Requested Visits Authorized [id number] Authorized PCP Requested Referral Auto-Generate d Referral 08/07/2023 08/06/2024 99 99 Specialty Diagnoses / Procedures Referred By Katerina t Referred To Contact Cardiology Diagnoses Postural dizziness with presyncope Former smoker Abnormal EKG Type 2 diabetes mellitus with other specified complication, without long-term current use of insulin (HCC) Elevated LDL cholesterol level SOB (shortness of breath) Throat tightness Procedures CONSULT TO CARDIOLOGY OFFICE/OUTPATIENT [facility] MDM 60 MINUTES Luis Manuel Hernandez, BINDERY SUPERVISOR.[address] [address] Referral ID Status Reason Start Date Expiration Date Visits Requested Visits Authorized [id number] Authorized PCP Requested Referral 07/06/2024 07/06/2025 1 1 Specialty Diagnoses / Procedures Referred By Contac t Referred To Contact [facility] Diagnoses Postural dizziness with presyncope Former smoker Abnormal EKG Type 2 diabetes mellitus with other specified complication, without long-term current use of insulin (HCC) Elevated LDL cholesterol level SOB (shortness of breath) Throat tightness Procedures STRESS ECHO TREADMILL ECHO TTHRC R-T 2D W/WO M-MODE COMPLETE REST&ST Luis Manuel Hernandez, BINDERY SUPERVISOR.[facility] [address] [place] [address] [facility] [place] [address] [place] [address] Referral ID Status Reason Start Date Expiration Date Visits Requested Visits Authorized [id number] Authorized Auto-Generat ed Referral 07/06/2024 07/06/2025 1 1 Specialty Diagnoses / Procedures Referred By Contac t Referred To Contact [facility] Diagnoses Postural dizziness with presyncope Procedures ECG COMPLETE ECG ROUTINE ECG W/LEAST 12 LDS W/I&R Luis Manuel Hernandez, BINDERY SUPERVISOR.WAREHOUSE SUPERVISOR [address] [place] [address] [facility] [place] [address] [place] [address] Referral ID Status Reason Start Date Expiration Date Visits Requested Visits Authorized [id number] New Request Auto-Generat ed Referral 07/06/2024 07/06/2025 1 1 Specialty Diagnoses / Procedures Referred By Contac t Referred To Contact Cardiology Diagnoses SVT (supraventricular tachycardia) (HCC) Procedures CONSULT TO CARDIOLOGY OFFICE/OUTPATIENT [facility] 60 MINUTES Bg Chavarria MD [address] [place] [address] Gregg Ramirez MD [address] [place] [address] Referral ID Status Reason Start Date Expiration Date Visits Requested Visits Authorized [id number] Authorized PCP Requested Referral 09/13/2025 1 1 Health Concerns Infection Onset Date Last Indicated Resolved Time COVID-19 Rule-Out 06/20/2023 06/20/2023 06/21/2023 2:32 AM EDT Summary Purpose Family History No Family History Records Found Relationship Condition Age at Onset Recorded Date/T [...] 2 diabetes mellitus April 20, 2025 1:05pm Chief Complaint Admit Date 6 M FU [place] 22nd, 2025 1:05 pm General Illness May 22, 2025 4: 55pm Reason for Visit Admit Date Aortic valve insufficiency April 20 1:05pm Mitral regurgitation April 20, 2025 1:0 5pm SVT (supraventricular tachycardia) April 20, 2025 1:05pm Additional Source Comments Source Comments (unrecognize d section and content) In the event this informatio n is protected by the Federal Confidentiality of Alcohol and Drug Abuse Patient Records regulations: The Federal rules restrict any use of the information to criminally investigate or prosecute any alcohol or drug abuse patient.[facility] the event this information is protected by the Federal Confidentiality of Alcohol and Drug Abuse Patient Records regulations: The Federal rules restrict any use of the information to criminally investigate or prosecute any alcohol or drug abuse patient.[facility] the event this information is protected by the Federal Confidentiality of Alcohol and Drug Abuse Patient Records regulations: The Federal rules restrict any use of the information to criminally investigate or prosecute any alcohol or drug abuse patient.[facility] the event this information is protected by the Federal Confidentiality of Alcohol and Drug Abuse Patient Records regulations: The Federal rules restrict any use of the information to criminally investigate or prosecute any alcohol or drug abuse patient.[facility] the event this information is protected by the Federal Confidentiality of Alcohol and Drug Abuse Patient Records regulations: The Federal rules restrict any use of the information to criminally investigate or prosecute any alcohol or drug abuse patient.[facility] the event this information is protected by the Federal Confidentiality of Alcohol and Drug Abuse Patient Records regulations: The Federal rules restrict any use of the information to criminally investigate or prosecute any alcohol or drug abuse patient.[facility] the event this information is protected by the Federal Confidentiality of Alcohol and Drug Abuse Patient Records regulations: The Federal rules restrict any use of the information to criminally investigate or prosecute any alcohol or drug abuse patient.[facility] the event this information is protected by the Federal Confidentiality of Alcohol and Drug Abuse Patient Records regulations: The Federal rules restrict any use of the information to criminally investigate or prosecute any alcohol or drug abuse patient.[facility] the event this information is protected by the Federal Confidentiality of Alcohol and Drug Abuse Patient Records regulations: The Federal rules restrict any use of the information to criminally investigate or prosecute any alcohol or drug abuse patient.[facility] the event this information is protected by the Federal Confidentiality of Alcohol and Drug Abuse Patient Records regulations: The Federal rules restrict any use of the information to criminally investigate or prosecute any alcohol or drug abuse patient.[facility] the event this information is protected by the Federal Confidentiality of Alcohol and Drug Abuse Patient Records regulations: The Federal rules restrict any use of the information to criminally investigate or prosecute any alcohol or drug abuse patient.[facility] the event this information is protected by the Federal Confidentiality of Alcohol and Drug Abuse Patient Records regulations: The Federal rules restrict any use of the information to criminally investigate or prosecute any alcohol or drug abuse patient.[facility] the event this information is protected by the Federal Confidentiality of Alcohol and Drug Abuse Patient Records regulations: The Federal rules restrict any use of the information to criminally investigate or prosecute any alcohol or drug abuse patient.[facility] the event this information is protected by the Federal Confidentiality of Alcohol and Drug Abuse Patient Records regulations: The Federal rules restrict any use of the information to criminally investigate or prosecute any alcohol or drug abuse patient.[facility] the event this information is protected by the Federal Confidentiality of Alcohol and Drug Abuse Patient Records regulations: The Federal rules restrict any use of the information to criminally investigate or prosecute any alcohol or drug abuse patient.[facility] the event this information is protected by the Federal Confidentiality of Alcohol and Drug Abuse Patient Records regulations: The Federal rules restrict any use of the information to criminally investigate or prosecute any alcohol or drug abuse patient.[facility]In the event this information is protected by the Federal Confidentiality of Alcohol and Drug Abuse Patient Records regulations: The Federal rules restrict any use of the information to criminally investigate or prosecute any alcohol or drug abuse patient.[facility]In the event this information is protected by the Federal Confidentiality of Alcohol and Drug Abuse Patient Records regulations: The Federal rules restrict any use of the information to criminally investigate or prosecute any alcohol or drug abuse patient.[facility]In the event this information is protected by the Federal Confidentiality of Alcohol and Drug Abuse Patient Records regulations: The Federal rules restrict any use of the information to criminally investigate or prosecute any alcohol or drug abuse patient.[facility]In the event this information is protected by the Federal Confidentiality of Alcohol and Drug Abuse Patient Records regulations: The Federal rules restrict any use of the information to criminally investigate or prosecute any alcohol or drug abuse patient.[facility]In the event this information is protected by the Federal Confidentiality of Alcohol and Drug Abuse Patient Records regulations: The Federal rules restrict any use of the information to criminally investigate or prosecute any alcohol or drug abuse patient.[facility]In the event this information is protected by the Federal Confidentiality of Alcohol and Drug Abuse Patient Records regulations: The Federal rules restrict any use of the information to criminally investigate or prosecute any alcohol or drug abuse patient.[facility]In the event this information is protected by the Federal Confidentiality of Alcohol and Drug Abuse Patient Records regulations: The Federal rules restrict any use of the information to criminally investigate or prosecute any alcohol or drug abuse patient.[facility]In the event this information is protected by the Federal Confidentiality of Alcohol and Drug Abuse Patient Records regulations: The Federal rules restrict any use of the information to criminally investigate or prosecute any alcohol or drug abuse patient.[facility] the event this information is protected by the Federal Confidentiality of Alcohol and Drug Abuse Patient Records regulations: The Federal rules restrict any use of the information to criminally investigate or prosecute any alcohol or drug abuse patient.[facility]In the event this information is protected by the Federal Confidentiality of Alcohol and Drug Abuse Patient Records regulations: The Federal rules restrict any use of the information to criminally investigate or prosecute any alcohol or drug abuse patient.[facility] HospitalIn the event this information is protected by the Federal Confidentiality of Alcohol and Drug Abuse Patient Records regulations: The Federal rules restrict any use of the information to criminally investigate or prosecute any alcohol or drug abuse patient.[facility] HospitalIn the event this information is protected by the Federal Confidentiality of Alcohol and Drug Abuse Patient Records regulations: The Federal rules restrict any use of the information to criminally investigate or prosecute any alcohol or drug abuse patient.[facility] HospitalIn the event this information is protected by the Federal Confidentiality of Alcohol and Drug Abuse Patient Records regulations: The Federal rules restrict any use of the information to criminally investigate or prosecute any alcohol or drug abuse patient.[facility] HospitalIn the event this information is protected by the Federal Confidentiality of Alcohol and Drug Abuse Patient Records regulations: The Federal rules restrict any use of the information to criminally investigate or prosecute any alcohol or drug abuse patient.[facility] HospitalIn the event this information is protected by the Federal Confidentiality of Alcohol and Drug Abuse Patient Records regulations: The Federal rules restrict any use of the information to criminally investigate or prosecute any alcohol or drug abuse patient.[facility] HospitalIn the event this information is protected by the Federal Confidentiality of Alcohol and Drug Abuse Patient Records regulations: The Federal rules restrict any use of the information to criminally investigate or prosecute any alcohol or drug abuse patient.[facility] HospitalIn the event this information is protected by the Federal Confidentiality of Alcohol and Drug Abuse Patient Records regulations: The Federal rules restrict any use of the information to criminally investigate or prosecute any alcohol or drug abuse patient.[facility] HospitalIn the event this information is protected by the Federal Confidentiality of Alcohol and Drug Abuse Patient Records regulations: The Federal rules restrict any use of the information to criminally investigate or prosecute any alcohol or drug abuse patient.[facility] HospitalIn the event this information is protected by the Federal Confidentiality of Alcohol and Drug Abuse Patient Records regulations: The Federal rules restrict any use of the information to criminally investigate or prosecute any alcohol or drug abuse patient.[facility] HospitalIn the event this information is protected by the Federal Confidentiality of Alcohol and Drug Abuse Patient Records regulations: The Federal rules restrict any use of the information to criminally investigate or prosecute any alcohol or drug abuse patient.[facility] HospitalIn the event this information is protected by the Federal Confidentiality of Alcohol and Drug Abuse Patient Records regulations: The Federal rules restrict any use of the information to criminally investigate or prosecute any alcohol or drug abuse patient.[facility] HospitalIn the event this information is protected by the Federal Confidentiality of Alcohol and Drug Abuse Patient Records regulations: The Federal rules restrict any use of the information to criminally investigate or prosecute any alcohol or drug abuse patient.[facility] HospitalIn the event this information is protected by the Federal Confidentiality of Alcohol and Drug Abuse Patient Records regulations: The Federal rules restrict any use of the information to criminally investigate or prosecute any alcohol or drug abuse patient.[facility] HospitalIn the event this information is protected by the Federal Confidentiality of Alcohol and Drug Abuse Patient Records regulations: The Federal rules restrict any use of the information to criminally investigate or prosecute any alcohol or drug abuse patient.[facility] HospitalIn the event this information is protected by the Federal Confidentiality of Alcohol and Drug Abuse Patient Records regulations: The Federal rules restrict any use of the information to criminally investigate or prosecute any alcohol or drug abuse patient.[facility] HospitalIn the event this information is protected by the Federal Confidentiality of Alcohol and Drug Abuse Patient Records regulations: The Federal rules restrict any use of the information to criminally investigate or prosecute any alcohol or drug abuse patient.[facility] HospitalIn the event this information is protected by the Federal Confidentiality of Alcohol and Drug Abuse Patient Records regulations: The Federal rules restrict any use of the information to criminally investigate or prosecute any alcohol or drug abuse patient.[facility] HospitalIn the event this information is protected by the Federal Confidentiality of Alcohol and Drug Abuse Patient Records regulations: The Federal rules restrict any use of the information to criminally investigate or prosecute any alcohol or drug abuse patient.[facility] HospitalIn the event this information is protected by the Federal Confidentiality of Alcohol and Drug Abuse Patient Records regulations: The Federal rules restrict any use of the information to criminally investigate or prosecute any alcohol or drug abuse patient.[facility] HospitalIn the event this information is protected by the Federal Confidentiality of Alcohol and Drug Abuse Patient Records regulations: The Federal rules restrict any use of the information to criminally investigate or prosecute any alcohol or drug abuse patient.[facility] HospitalIn the event this information is protected by the Federal Confidentiality of Alcohol and Drug Abuse Patient Records regulations: The Federal rules restrict any use of the information to criminally investigate or prosecute any alcohol or drug abuse patient.[facility] HospitalIn the event this information is protected by the Federal Confidentiality of Alcohol and Drug Abuse Patient Records regulations: The Federal rules restrict any use of the information to criminally investigate or prosecute any alcohol or drug abuse patient.[facility] HospitalIn the event this information is protected by the Federal Confidentiality of Alcohol and Drug Abuse Patient Records regulations: The Federal rules restrict any use of the information to criminally investigate or prosecute any alcohol or drug abuse patient.[facility] HospitalIn the event this information is protected by the Federal Confidentiality of Alcohol and Drug Abuse Patient Records regulations: The Federal rules restrict any use of the information to criminally investigate or prosecute any alcohol or drug abuse patient.[facility] HospitalIn the event this information is protected by the Federal Confidentiality of Alcohol and Drug Abuse Patient Records regulations: The Federal rules restrict any use of the information to criminally investigate or prosecute any alcohol or drug abuse patient.[facility] HospitalIn the event this information is protected by the Federal Confidentiality of Alcohol and Drug Abuse Patient Records regulations: The Federal rules restrict any use of the information to criminally investigate or prosecute any alcohol or drug abuse patient.[facility] HospitalIn the event this information is protected by the Federal Confidentiality of Alcohol and Drug Abuse Patient Records regulations: The Federal rules restrict any use of the information to criminally investigate or prosecute any alcohol or drug abuse patient.[facility] HospitalIn the event this information is protected by the Federal Confidentiality of Alcohol and Drug Abuse Patient Records regulations: The Federal rules restrict any use of the information to criminally investigate or prosecute any alcohol or drug abuse patient.[facility] HospitalIn the event this information is protected by the Federal Confidentiality of Alcohol and Drug Abuse Patient Records regulations: The Federal rules restrict any use of the information to criminally investigate or prosecute any alcohol or drug abuse patient.[facility] HospitalIn the event this information is protected by the Federal Confidentiality of Alcohol and Drug Abuse Patient Records regulations: The Federal rules restrict any use of the information to criminally investigate or prosecute any alcohol or drug abuse patient.[facility] HospitalIn the event this information is protected by the Federal Confidentiality of Alcohol and Drug Abuse Patient Records regulations: The Federal rules restrict any use of the information to criminally investigate or prosecute any alcohol or drug abuse patient.[facility] HospitalIn the event this information is protected by the Federal Confidentiality of Alcohol and Drug Abuse Patient Records regulations: The Federal rules restrict any use of the information to criminally investigate or prosecute any alcohol or drug abuse patient.[facility] HospitalIn the event this information is protected by the Federal Confidentiality of Alcohol and Drug Abuse Patient Records regulations: The Federal rules restrict any use of the information to criminally investigate or prosecute any alcohol or drug abuse patient.[facility] HospitalIn the event this information is protected by the Federal Confidentiality of Alcohol and Drug Abuse Patient Records regulations: The Federal rules restrict any use of the information to criminally investigate or prosecute any alcohol or drug abuse patient.[facility] HospitalIn the event this information is protected by the Federal Confidentiality of Alcohol and Drug Abuse Patient Records regulations: The Federal rules restrict any use of the information to criminally investigate or prosecute any alcohol or drug abuse patient.[facility] HospitalIn the event this information is protected by the Federal Confidentiality of Alcohol and Drug Abuse Patient Records regulations: The Federal rules restrict any use of the information to criminally investigate or prosecute any alcohol or drug abuse patient.[facility] HospitalIn the event this information is protected by the Federal Confidentiality of Alcohol and Drug Abuse Patient Records regulations: The Federal rules restrict any use of the information to criminally investigate or prosecute any alcohol or drug abuse patient.[facility] HospitalIn the event this information is protected by the Federal Confidentiality of Alcohol and Drug Abuse Patient Records regulations: The Federal rules restrict any use of the information to criminally investigate or prosecute any alcohol or drug abuse patient.[facility] HospitalIn the event this information is protected by the Federal Confidentiality of Alcohol and Drug Abuse Patient Records regulations: The Federal rules restrict any use of the information to criminally investigate or prosecute any alcohol or drug abuse patient.[facility] HospitalIn the event this information is protected by the Federal Confidentiality of Alcohol and Drug Abuse Patient Records regulations: The Federal rules restrict any use of the information to criminally investigate or prosecute any alcohol or drug abuse patient.[facility] HospitalIn the event this information is protected by the Federal Confidentiality of Alcohol and Drug Abuse Patient Records regulations: The Federal rules restrict any use of the information to criminally investigate or prosecute any alcohol or drug abuse patient.[facility] HospitalIn the event this information is protected by the Federal Confidentiality of Alcohol and Drug Abuse Patient Records regulations: The Federal rules restrict any use of the information to criminally investigate or prosecute any alcohol or drug abuse patient.[facility] HospitalIn the event this information is protected by the Federal Confidentiality of Alcohol and Drug Abuse Patient Records regulations: The Federal rules restrict any use of the information to criminally investigate or prosecute any alcohol or drug abuse patient.[facility] HospitalIn the event this information is protected by the Federal Confidentiality of Alcohol and Drug Abuse Patient Records regulations: The Federal rules restrict any use of the information to criminally investigate or prosecute any alcohol or drug abuse patient.[facility] HospitalIn the event this information is protected by the Federal Confidentiality of Alcohol and Drug Abuse Patient Records regulations: The Federal rules restrict any use of the information to criminally investigate or prosecute any alcohol or drug abuse patient.[facility] HospitalIn the event this information is protected by the Federal Confidentiality of Alcohol and Drug Abuse Patient Records regulations: The Federal rules restrict any use of the information to criminally investigate or prosecute any alcohol or drug abuse patient.[facility] HospitalIn the event this information is protected by the Federal Confidentiality of Alcohol and Drug Abuse Patient Records regulations: The Federal rules restrict any use of the information to criminally investigate or prosecute any alcohol or drug abuse patient.[facility] HospitalIn the event this information is protected by the Federal Confidentiality of Alcohol and Drug Abuse Patient Records regulations: The Federal rules restrict any use of the information to criminally investigate or prosecute any alcohol or drug abuse patient.[facility] HospitalIn the event this information is protected by the Federal Confidentiality of Alcohol and Drug Abuse Patient Records regulations: The Federal rules restrict any use of the information to criminally investigate or prosecute any alcohol or drug abuse patient.[facility] HospitalIn the event this information is protected by the Federal Confidentiality of Alcohol and Drug Abuse Patient Records regulations: The Federal rules restrict any use of the information to criminally investigate or prosecute any alcohol or drug abuse patient.[facility] HospitalIn the event this information is protected by the Federal Confidentiality of Alcohol and Drug Abuse Patient Records regulations: The Federal rules restrict any use of the information to criminally investigate or prosecute any alcohol or drug abuse patient.[facility] HospitalIn the event this information is protected by the Federal Confidentiality of Alcohol and Drug Abuse Patient Records regulations: The Federal rules restrict any use of the information to criminally investigate or prosecute any alcohol or drug abuse patient.[facility] HospitalIn the event this information is protected by the Federal Confidentiality of Alcohol and Drug Abuse Patient Records regulations: The Federal rules restrict any use of the information to criminally investigate or prosecute any alcohol or drug abuse patient.[facility] HospitalIn the event this information is protected by the Federal Confidentiality of Alcohol and Drug Abuse Patient Records regulations: The Federal rules restrict any use of the information to criminally investigate or prosecute any alcohol or drug abuse patient.[facility] HospitalIn the event this information is protected by the Federal Confidentiality of Alcohol and Drug Abuse Patient Records regulations: The Federal rules restrict any use of the information to criminally investigate or prosecute any alcohol or drug abuse patient.[facility] HospitalIn the event this information is protected by the Federal Confidentiality of Alcohol and Drug Abuse Patient Records regulations: The Federal rules restrict any use of the information to criminally investigate or prosecute any alcohol or drug abuse patient.[facility] HospitalIn the event this information is protected by the Federal Confidentiality of Alcohol and Drug Abuse Patient Records regulations: The Federal rules restrict any use of the information to criminally investigate or prosecute any alcohol or drug abuse patient.[facility] HospitalIn the event this information is protected by the Federal Confidentiality of Alcohol and Drug Abuse Patient Records regulations: The Federal rules restrict any use of the information to criminally investigate or prosecute any alcohol or drug abuse patient.[facility] HospitalIn the event this information is protected by the Federal Confidentiality of Alcohol and Drug Abuse Patient Records regulations: The Federal rules restrict any use of the information to criminally investigate or prosecute any alcohol or drug abuse patient.[facility] HospitalIn the event this information is protected by the Federal Confidentiality of Alcohol and Drug Abuse Patient Records regulations: The Federal rules restrict any use of the information to criminally investigate or prosecute any alcohol or drug abuse patient.[facility] HospitalIn the event this information is protected by the Federal Confidentiality of Alcohol and Drug Abuse Patient Records regulations: The Federal rules restrict any use of the information to criminally investigate or prosecute any alcohol or drug abuse patient.[facility] HospitalIn the event this information is protected by the Federal Confidentiality of Alcohol and Drug Abuse Patient Records regulations: The Federal rules restrict any use of the information to criminally investigate or prosecute any alcohol or drug abuse patient.[facility] HospitalIn the event this information is protected by the Federal Confidentiality of Alcohol and Drug Abuse Patient Records regulations: The Federal rules restrict any use of the information to criminally investigate or prosecute any alcohol or drug abuse patient.[facility] HospitalIn the event this information is protected by the Federal Confidentiality of Alcohol and Drug Abuse Patient Records regulations: The Federal rules restrict any use of the information to criminally investigate or prosecute any alcohol or drug abuse patient.[facility] HospitalIn the event this information is protected by the Federal Confidentiality of Alcohol and Drug Abuse Patient Records regulations: The Federal rules restrict any use of the information to criminally investigate or prosecute any alcohol or drug abuse patient.[facility] HospitalIn the event this information is protected by the Federal Confidentiality of Alcohol and Drug Abuse Patient Records regulations: The Federal rules restrict any use of the information to criminally investigate or prosecute any alcohol or drug abuse patient.[facility] HospitalIn the event this information is protected by the Federal Confidentiality of Alcohol and Drug Abuse Patient Records regulations: The Federal rules restrict any use of the information to criminally investigate or prosecute any alcohol or drug abuse patient.[facility] HospitalIn the event this information is protected by the Federal Confidentiality of Alcohol and Drug Abuse Patient Records regulations: The Federal rules restrict any use of the information to criminally investigate or prosecute any alcohol or drug abuse patient.[facility] HospitalIn the event this information is protected by the Federal Confidentiality of Alcohol and Drug Abuse Patient Records regulations: The Federal rules restrict any use of the information to criminally investigate or prosecute any alcohol or drug abuse patient.[facility] HospitalIn the event this information is protected by the Federal Confidentiality of Alcohol and Drug Abuse Patient Records regulations: The Federal rules restrict any use of the information to criminally investigate or prosecute any alcohol or drug abuse patient.[facility] HospitalIn the event this information is protected by the Federal Confidentiality of Alcohol and Drug Abuse Patient Records regulations: The Federal rules restrict any use of the information to criminally investigate or prosecute any alcohol or drug abuse patient.[facility] HospitalIn the event this information is protected by the Federal Confidentiality of Alcohol and Drug Abuse Patient Records regulations: The Federal rules restrict any use of the information to criminally investigate or prosecute any alcohol or drug abuse patient.[facility] HospitalIn the event this information is protected by the Federal Confidentiality of Alcohol and Drug Abuse Patient Records regulations: The Federal rules restrict any use of the information to criminally investigate or prosecute any alcohol or drug abuse patient.[facility] HospitalIn the event this information is protected by the Federal Confidentiality of Alcohol and Drug Abuse Patient Records regulations: The Federal rules restrict any use of the information to criminally investigate or prosecute any alcohol or drug abuse patient.[facility] HospitalIn the event this information is protected by the Federal Confidentiality of Alcohol and Drug Abuse Patient Records regulations: The Federal rules restrict any use of the information to criminally investigate or prosecute any alcohol or drug abuse patient.[facility] HospitalIn the event this information is protected by the Federal Confidentiality of Alcohol and Drug Abuse Patient Records regulations: The Federal rules restrict any use of the information to criminally investigate or prosecute any alcohol or drug abuse patient.[facility] HospitalIn the event this information is protected by the Federal Confidentiality of Alcohol and Drug Abuse Patient Records regulations: The Federal rules restrict any use of the information to criminally investigate or prosecute any alcohol or drug abuse patient.[facility] HospitalIn the event this information is protected by the Federal Confidentiality of Alcohol and Drug Abuse Patient Records regulations: The Federal rules restrict any use of the information to criminally investigate or prosecute any alcohol or drug abuse patient.[facility] HospitalIn the event this information is protected by the Federal Confidentiality of Alcohol and Drug Abuse Patient Records regulations: The Federal rules restrict any use of the information to criminally investigate or prosecute any alcohol or drug abuse patient.[facility] HospitalIn the event this information is protected by the Federal Confidentiality of Alcohol and Drug Abuse Patient Records regulations: The Federal rules restrict any use of the information to criminally investigate or prosecute any alcohol or drug abuse patient.[facility] HospitalIn the event this information is protected by the Federal Confidentiality of Alcohol and Drug Abuse Patient Records regulations: The Federal rules restrict any use of the information to criminally investigate or prosecute any alcohol or drug abuse patient.[facility] HospitalIn the event this information is protected by the Federal Confidentiality of Alcohol and Drug Abuse Patient Records regulations: The Federal rules restrict any use of the information to criminally investigate or prosecute any alcohol or drug abuse patient.[facility] HospitalIn the event this information is protected by the Federal Confidentiality of Alcohol and Drug Abuse Patient Records regulations: The Federal rules restrict any use of the information to criminally investigate or prosecute any alcohol or drug abuse patient.[facility] HospitalIn the event this information is protected by the Federal Confidentiality of Alcohol and Drug Abuse Patient Records regulations: The Federal rules restrict any use of the information to criminally investigate or prosecute any alcohol or drug abuse patient.[facility] HospitalIn the event this information is protected by the Federal Confidentiality of Alcohol and Drug Abuse Patient Records regulations: The Federal rules restrict any use of the information to criminally investigate or prosecute any alcohol or drug abuse patient.[facility] HospitalIn the event this information is protected by the Federal Confidentiality of Alcohol and Drug Abuse Patient Records regulations: The Federal rules restrict any use of the information to criminally investigate or prosecute any alcohol or drug abuse patient.[facility] HospitalIn the event this information is protected by the Federal Confidentiality of Alcohol and Drug Abuse Patient Records regulations: The Federal rules restrict any use of the information to criminally investigate or prosecute any alcohol or drug abuse patient.[facility] HospitalIn the event this information is protected by the Federal Confidentiality of Alcohol and Drug Abuse Patient Records regulations: The Federal rules restrict any use of the information to criminally investigate or prosecute any alcohol or drug abuse patient.[facility] HospitalIn the event this information is protected by the Federal Confidentiality of Alcohol and Drug Abuse Patient Records regulations: The Federal rules restrict any use of the information to criminally investigate or prosecute any alcohol or drug abuse patient.[facility] HospitalIn the event this information is protected by the Federal Confidentiality of Alcohol and Drug Abuse Patient Records regulations: The Federal rules restrict any use of the information to criminally investigate or prosecute any alcohol or drug abuse patient.[facility] HospitalIn the event this information is protected by the Federal Confidentiality of Alcohol and Drug Abuse Patient Records regulations: The Federal rules restrict any use of the information to criminally investigate or prosecute any alcohol or drug abuse patient.[facility] HospitalIn the event this information is protected by the Federal Confidentiality of Alcohol and Drug Abuse Patient Records regulations: The Federal rules restrict any use of the information to criminally investigate or prosecute any alcohol or drug abuse patient.[facility] HospitalIn the event this information is protected by the Federal Confidentiality of Alcohol and Drug Abuse Patient Records regulations: The Federal rules restrict any use of the information to criminally investigate or prosecute any alcohol or drug abuse patient.[facility] HospitalIn the event this information is protected by the Federal Confidentiality of Alcohol and Drug Abuse Patient Records regulations: The Federal rules restrict any use of the information to criminally investigate or prosecute any alcohol or drug abuse patient.[facility] HospitalIn the event this information is protected by the Federal Confidentiality of Alcohol and Drug Abuse Patient Records regulations: The Federal rules restrict any use of the information to criminally investigate or prosecute any alcohol or drug abuse patient.[facility] HospitalIn the event this information is protected by the Federal Confidentiality of Alcohol and Drug Abuse Patient Records regulations: The Federal rules restrict any use of the information to criminally investigate or prosecute any alcohol or drug abuse patient.[facility] Care Teams (unrecognized sec tion and content) Remelt Furnace Expediter Relationship Specialty Start Date End Date Bg Chavarria MD [address] [place], [place] [id number] PCP - General Internal Medicine 05/04/13 Remelt Furnace Expediter Relationship Specialty Start Date End Date Bg Chavarria MD [address] [facility] [place] [address] PCP - General Internal Medicine 05/04/13 Remelt Furnace Expediter Relationship Specialty Start Date End Date Bg Chavarria MD [address] [facility] [place] [address] PCP - General Internal Medicine 05/04/13 Remelt Furnace Expediter Relationship Specialty Start Date End Date Bg Chavarria MD [facility] [place] [address] PCP - General Internal Medicine 05/04/13 Remelt Furnace Expediter Relationship Specialty Start Date End Date Bg Chavarria MD [facility] [place] [address] PCP - General Internal Medicine 05/04/13 Remelt Furnace Expediter Relationship Specialty Start Date End Date Bg Chavarria MD [facility] [place] [address] PCP - General Internal Medicine 05/04/13 Remelt Furnace Expediter Relationship Specialty Start Date End Date Bg Chavarria MD [facility] [place] [address] PCP - General Internal Medicine 05/04/13 Remelt Furnace Expediter Relationship Specialty Start Date End Date Bg Chavarria MD [address] [facility] [place] [address] PCP - General Internal Medicine 05/04/13 Remelt Furnace Expediter Relationship Specialty Start Date End Date Bg Chavarria MD [facility] [place] [address] PCP - General Internal Medicine 05/04/13 Remelt Furnace Expediter Relationship Specialty Start Date End Date Bg Chavarria MD [facility] [place] [address] PCP - General Internal Medicine 05/04/13 Remelt Furnace Expediter Relationship Specialty Start Date End Date Bg Chavarria MD [address] [facility] [place] [address] PCP - General Internal Medicine 05/04/13 Remelt Furnace Expediter Relationship Specialty Start Date End Date Bg Chavarria MD [address] [place] [address], [place] [address] PCP - General Internal Medicine 05/04/13 Remelt Furnace Expediter Relationship Specialty Start Date End Date Bg Chavarria MD [address] [place] [address], [place] [address] PCP - General Internal Medicine 05/04/13 Remelt Furnace Expediter Relationship Specialty Start Date End Date Bg Chavarria MD [address] [place] [address], [place] [address] PCP - General Internal Medicine 05/04/13 Remelt Furnace Expediter Relationship Specialty Start Date End Date Bg Chavarria MD [address] [place] [address], [place] [address] PCP - General Internal Medicine 05/04/13 Remelt Furnace Expediter Relationship Specialty Start Date End Date Bg Chavarria MD [address] [place] [address], [place] [address] PCP - General Internal Medicine 05/04/13 Remelt Furnace Expediter Relationship Specialty Start Date End Date Bg Chavarria MD [address] [place] [address], [place] [address] PCP - General Internal Medicine 05/04/13 Remelt Furnace Expediter Relationship Specialty Start Date End Date Bg Chavarria MD [address] [place] [address], [place] [address] PCP - General Internal Medicine 05/04/13 Remelt Furnace Expediter Relationship Specialty Start Date End Date Bg Chavarria MD [address] [facility] [place] [address] PCP - General Internal Medicine 05/04/13 Remelt Furnace Expediter Relationship Specialty Start Date End Date Bg Chavarria MD [address] [facility] [place] [address] PCP - General Internal Medicine 05/04/13 Remelt Furnace Expediter Relationship Specialty Start Date End Date Bg Chavarria MD [address] [facility] [place] [address] PCP - General Internal Medicine 05/04/13 Remelt Furnace Expediter Relationship Specialty Start Date End Date Bg Chavarria MD [facility] [place] [address] PCP - General Internal Medicine 05/04/13 Remelt Furnace Expediter Relationship Specialty Start Date End Date Bg Chavarria MD [facility] [place] [address] PCP - General Internal Medicine 05/04/13 Remelt Furnace Expediter Relationship Specialty Start Date End Date Bg Chavarria MD [address] [facility] [place] [address] PCP - General Internal Medicine 05/04/13 Remelt Furnace Expediter Relationship Specialty Start Date End Date Bg Chavarria MD [address] [facility] [place] [address] PCP - General Internal Medicine 05/04/13 Remelt Furnace Expediter Relationship Specialty Start Date End Date Bg Chavarria MD [address] [place] [address], [place] [address] PCP - General Internal Medicine 05/04/13 Remelt Furnace Expediter Relationship Specialty Start Date End Date Bg Chavarria MD [address] [place] [address], [place] [address] PCP - General Internal Medicine 05/04/13 Remelt Furnace Expediter Relationship Specialty Start Date End Date Bg Chavarria MD [address] [facility] [place] [address] PCP - General Internal Medicine 05/04/13 Remelt Furnace Expediter Relationship Specialty Start Date End Date Bg Chavarria MD [address] [facility] [place] [address] PCP - General Internal Medicine 05/04/13 Remelt Furnace Expediter Relationship Specialty Start Date End Date Bg Chavarria MD [address] [facility] [place] [address] PCP - General Internal Medicine 05/04/13 Remelt Furnace Expediter Relationship Specialty Start Date End Date Bg Chavarria MD [address] [facility] [place] [address] PCP - General Internal Medicine 05/04/13 Remelt Furnace Expediter Relationship Specialty Start Date End Date Bg Chavarria MD [address] [facility] [place] [address] PCP - General Internal Medicine 05/04/13 Remelt Furnace Expediter Relationship Specialty Start Date End Date Bg Chavarria MD [address] [facility] [place] [address] PCP - General Internal Medicine 05/04/13 Remelt Furnace Expediter Relationship Specialty Start Date End Date Bg Chavarria MD [address] [facility] [place] [address] PCP - General Internal Medicine 05/04/13 Remelt Furnace Expediter Relationship Specialty Start Date End Date Bg Chavarria MD [address] [place] [address] PCP - General Internal Medicine 05/04/13 Remelt Furnace Expediter Relationship Specialty Start Date End Date Bg Chavarria MD [address] [place] [address] PCP - General Internal Medicine 05/04/13 Remelt Furnace Expediter Relationship Specialty Start Date End Date Bg Chavarria MD [address] [place] [address] PCP - General Internal Medicine 05/04/13 Remelt Furnace Expediter Relationship Specialty Start Date End Date Bg Chavarria MD [address] [place] [address] PCP - General Internal Medicine 05/04/13 Reji Christensen, [facility] [address] [place] [address] Specialty Blanket Washer Orthopedics 06/06/23 08/01/23 Remelt Furnace Expediter Relationship Specialty Start Date End Date Bg Chavarria MD [address] [place] [address] PCP - General Internal Medicine 05/04/13 Reji Christensen, [facility] [address] [place] [address] Specialty Blanket Washer Orthopedics 06/06/23 08/01/23 Remelt Furnace Expediter Relationship Specialty Start Date End Date Bg Chavarria MD [address] [place] [address] PCP - General Internal Medicine 05/04/13 Reji Christensen, [facility] [address] [place] [address] Specialty Blanket Washer Orthopedics 06/06/23 08/01/23 Remelt Furnace Expediter Relationship Specialty Start Date End Date Bg Chavarria MD [address] [place] [address] PCP - General Internal Medicine 05/04/13 Reji Christensen, [facility] [address] [place] [address] Specialty Blanket Washer Orthopedics 06/06/23 08/01/23 Remelt Furnace Expediter Relationship Specialty Start Date End Date Bg Chavarria MD [address] [place] [address] PCP - General Internal Medicine 05/04/13 Reji Christensen, [facility] [address] [place] [address] Specialty Blanket Washer Orthopedics 06/06/23 08/01/23 Remelt Furnace Expediter Relationship Specialty Start Date End Date Bg Chavarria MD [address] [place] [address] PCP - General Internal Medicine 05/04/13 Reji Christensen, [facility] [address] [place] [address] Specialty Blanket Washer Orthopedics 06/06/23 08/01/23 Sincere Hopkins MD [address] [place] [address] Referring Orthopedics 06/29/23 Sincere Hopkins MD [address] [place] [address] Home Care Provider Orthopedics 06/29/23 Remelt Furnace Expediter Relationship Specialty Start Date End Date Bg Chavarria MD [address] [place] [address] PCP - General Internal Medicine 05/04/13 Reji Christensen, [facility] [address] [place] [address] Specialty Blanket Washer Orthopedics 06/06/23 08/01/23 Sincere Hopkins MD [address] [place] [address] Referring Orthopedics 06/29/23 Sincere Hopkins MD [address] [place] [address] Home Care Provider Orthopedics 06/29/23 Remelt Furnace Expediter Relationship Specialty [place] [address] [place] [address] PCP - General Internal Medicine 05/04/13 Sincere Hopkins MD [address] [place] [address] Referring Orthopedics 06/29/23 Sincere Hopkins MD [address] [place] [address] Home Care Provider Orthopedics 06/29/23 Remelt Furnace Expediter Relationship Specialty Start Date End Date Bg Chavarria MD [address] [place] [address] PCP - General Internal Medicine 05/04/13 Sincere Hopkins MD [address] [place] [address] Referring Orthopedics 06/29/23 Sincere Hopkins MD [address] [place] [address] Home Care Provider Orthopedics 06/29/23 Remelt Furnace Expediter Relationship Specialty Start Date End Date Bg Chavarria MD [address] [place] [address] PCP - General Internal Medicine 05/04/13 Sincere Hopkins MD [address] [place] [address] Referring Orthopedics 06/29/23 Sincere Hopkins MD [address] [place] [address] Home Care Provider Orthopedics 06/29/23 Remelt Furnace Expediter Relationship Specialty Start Date End Date Bg Chavarria MD [address] [place] [address] PCP - General Internal Medicine 05/04/13 Sincere Hopkisn MD [address] [place] [address] Referring Orthopedics 06/29/23 Sincere Hopkins MD [address] [place] [address] Home Care Provider Orthopedics 06/29/23 Remelt Furnace Expediter Relationship Specialty Start Date End Date Bg Chavarria MD [address] [place] [address] PCP - General Internal Medicine 05/04/13 Sincere Hopkins MD [address] [place] [address] Referring Orthopedics 06/29/23 Sincere Hopkins MD [address] [place] [address] Home Care Provider Orthopedics 06/29/23 Remelt Furnace Expediter Relationship Specialty Start Date End Date Bg Chavarria MD [address] [place] [address] PCP - General Internal Medicine 05/04/13 Sincere Hopkins MD [address] [place] [address] Referring Orthopedics 06/29/23 Sincere Hopkins MD [facility] [place] [address] Home Care Provider Orthopedics 06/29/23 Remelt Furnace Expediter Relationship Specialty Start Date End Date Bg Chavarria MD [address] [place] [address] PCP - General Internal Medicine 05/04/13 Sincere Hopkins MD [address] [place] [address] Referring Orthopedics 06/29/23 Sincere Hopkins MD [address] [place] [address] Home Care Provider Orthopedics 06/29/23 Remelt Furnace Expediter Relationship Specialty Start Date End Date Bg Chavarria MD [address] [place] [address] PCP - General Internal Medicine 05/04/13 Sincere Hopkins MD [address] [place] [address] Referring Orthopedics 06/29/23 Sincere Hopkins MD [address] [place] [address] Home Care Provider Orthopedics 06/29/23 Remelt Furnace Expediter Relationship Specialty Start Date End Date Bg Chavarria MD [address] [place] [address] PCP - General Internal Medicine 05/04/13 Sincere Hopkins MD [address] [place] [address] Referring Orthopedics 06/29/23 Sincere Hopkins MD [address] [place] [address] Home Care Provider Orthopedics 06/29/23 Remelt Furnace Expediter Relationship Specialty Start Date End Date Bg Chavarria MD [address] [place] [address] PCP - General Internal Medicine 05/04/13 Sincere Hopkins MD [address] [place] [address] Referring Orthopedics 06/29/23 Sincere Hopkins MD [address] [place] [address] Home Care Provider Orthopedics 06/29/23 Remelt Furnace Expediter Relationship Specialty Start Date End Date Bg Chavarria MD [address] [place] [address] PCP - General Internal Medicine 05/04/13 Sincere Hopkins MD [address] [place] [address] Referring Orthopedics 06/29/23 Sincere Hopkins MD [facility] [place] [address] Home Care Provider Orthopedics 06/29/23 Remelt Furnace Expediter Relationship Specialty Start Date End Date Bg Chavarria MD [address] [place] [address] PCP - General Internal Medicine 05/04/13 Sincere Hopkins MD [facility] [place] [address] Referring Orthopedics 06/29/23 Sincere Hopkins MD [facility] [place] [address] Home Care Provider Orthopedics 06/29/23 Remelt Furnace Expediter Relationship Specialty Start Date End Date Bg Chavarria MD [address] [place] [address] PCP - General Internal Medicine 05/04/13 Sincere Hopkins MD [facility] [place] [address] Referring Orthopedics 06/29/23 Sincere Hopkins MD [facility] [place] [address] Home Care Provider Orthopedics 06/29/23 Remelt Furnace Expediter Relationship Specialty Start Date End Date Bg Chavarria MD [address] [place] [address] PCP - General Internal Medicine 05/04/13 Sincere Hopkins MD [address] [place] [address] Referring Orthopedics 06/29/23 Sincere Hopkins MD [address] [place] [address] Home Care Provider Orthopedics 06/29/23 Remelt Furnace Expediter Relationship Specialty Start Date End Date Bg Chavarria MD [address] [place] [address] PCP - General Internal Medicine 05/04/13 Sincere Hopkins MD [address] [place] [address] Referring Orthopedics 06/29/23 Sincere Hopkins MD [address] [place] [address] Home Care Provider Orthopedics 06/29/23 Remelt Furnace Expediter Relationship Specialty Start Date End Date Bg Chavarria MD [facility] [place] [address] PCP - General Internal Medicine 05/04/13 Sincere Hopkins MD [address] [place] [address] Referring Orthopedics 06/29/23 Sincere Hopkins MD [address] [place] [address] Home Care Provider Orthopedics 06/29/23 Remelt Furnace Expediter Relationship Specialty Start Date End Date Bg Chavarria MD [address] [place] [address] PCP - General Internal Medicine 05/04/13 Sincere Hopkins MD [address] [place] [address] Referring Orthopedics 06/29/23 Sincere Hopkins MD [facility] [place] [address] Home Care Provider Orthopedics 06/29/23 Remelt Furnace Expediter Relationship Specialty Start Date End Date Bg Chavarria MD [address] [place] [address] PCP - General Internal Medicine 05/04/13 Sincere Hopkins MD [address] [place] [address] Referring Orthopedics 06/29/23 Sincere Hopkins MD [address] [place] [address] Home Care Provider Orthopedics 06/29/23 Remelt Furnace Expediter Relationship Specialty Start Date End Date Bg Chavarria MD [address] [place] [address] PCP - General Internal Medicine 05/04/13 Sincere Hopkins MD [address] [place] [address] Referring Orthopedics 06/29/23 Sincere Hopkins MD [address] [place] [address] Home Care Provider Orthopedics 06/29/23 Remelt Furnace Expediter Relationship Specialty Start Date End Date Bg Chavarria MD [address] [place], [place] [address] PCP - General Internal Medicine 05/04/13 Sincere Hopkins MD [address] [place] [address] Referring Orthopedics 06/29/23 Sincere Hopkins MD [address] [place] [address] Home Care Provider Orthopedics 06/29/23 Remelt Furnace Expediter Relationship Specialty Start Date End Date Bg Chavarria MD [address] [place] [address] PCP - General Internal Medicine 05/04/13 Reji Christensen [facility] [address] [place] [address] Specialty Blanket Washer Orthopedics 06/06/23 08/01/23 Sincere Hopkins MD [address] [place] [address] Referring Orthopedics 06/29/23 Sincere Hopkins MD [address] [place] [address] [place] [address] Home Care Provider Orthopedics 06/29/23 Remelt Furnace Expediter Relationship Specialty Start Date End Date Bg Chavarria MD [address] [place] [address] PCP - General Internal Medicine 05/04/13 Remelt Furnace Expediter Relationship Specialty Start Date End Date Bg Chavarria MD [address] [place] [address] PCP - General Internal Medicine 05/04/13 Remelt Furnace Expediter Relationship Specialty Start Date End Date Bg Chavarria MD [address] [place] [address] PCP - General Internal Medicine 05/04/13 Remelt Furnace Expediter Relationship Specialty Start Date End Date Bg Chavarria MD [address] [place] [address] PCP - General Internal Medicine 05/04/13 Sincere Hopkins MD [address] [place] [address] Referring Orthopedics 06/29/23 Sincere Hopkins MD [address] [place] [address] Home Care Provider Orthopedics 06/29/23 Remelt Furnace Expediter Relationship Specialty Start Date End Date Bg Chavarria MD [address] [place] [address] PCP - General Internal Medicine 05/04/13 Sincere Hopkins MD [address] [place] [address] Referring Orthopedics 06/29/23 Sincere Hopkins MD [address] [place] [address] Home Care Provider Orthopedics 06/29/23 Remelt Furnace Expediter Relationship Specialty Start Date End Date Bg Chavarria MD [address] [place] [address] PCP - General Internal Medicine 05/04/13 Sincere Hopkins MD [facility] [place] [address] Referring Orthopedics 06/29/23 Sincere Hopkins MD [facility] [place] [address] Home Care Provider Orthopedics 06/29/23 Remelt Furnace Expediter Relationship Specialty Start Date End Date Bg Chavarria MD [address] [place] [address] PCP - General Internal Medicine 05/04/13 Sincere Hopkins MD [address] [place] [address] Referring Orthopedics 06/29/23 Sincere Hopkins MD [address] [place] [address] Home Care Provider Orthopedics 06/29/23 Remelt Furnace Expediter Relationship Specialty Start Date End Date Bg Chavarria MD [address] [place] [address] PCP - General Internal Medicine 05/04/13 Sincere Hopkins MD [address] [place] [address] Referring Orthopedics 06/29/23 Sincere Hopkins MD [facility] [place] [address] Home Care Provider Orthopedics 06/29/23 Remelt Furnace Expediter Relationship Specialty Start Date End Date Bg Chavarria MD [address] [place] [address] PCP - General Internal Medicine 05/04/13 Sincere Hopkins MD [facility] [place] [address] Referring Orthopedics 06/29/23 Sincere Hopkins MD [facility] [place] [address] Home Care Provider Orthopedics 06/29/23 Remelt Furnace Expediter Relationship Specialty Start Date End Date Bg Chavarria MD [address] [place] [address] PCP - General Internal Medicine 05/04/13 Sincere Hopkins MD [facility] [place] [address] Referring Orthopedics 06/29/23 Sincere Hopkins MD [facility] [place] [address] Home Care Provider Orthopedics 06/29/23 Luis Manuel Hernandez, BINDERY SUPERVISOR.WAREHOUSE SUPERVISOR [address] [place] [address] Segment Assembler Internal Medicine 09/07/24 Linda Silva BINDERY SUPERVISOR.LEAD ATG DEVELOPER [address] [place] [address] [id number] Segment Assembler Internal Medicine 09/07/24 Remelt Furnace Expediter Relationship Specialty Start Date End Date Bg Chavarria MD [address] [place], [place] [address] PCP - General Internal Medicine 05/04/13 Sincere Hopkins MD [address] [place] [address] [phone] Referring Orthopedics 06/29/23 Sincere Hopkins MD [address] [place] [address] [phone] Home Care Provider Orthopedics 06/29/23 Luis Manuel Hernandez, BINDERY SUPERVISOR.WAREHOUSE SUPERVISOR [address] [place] [address] Segment Assembler Internal Medicine 09/07/24 Linda Silva BINDERY SUPERVISOR.LEAD ATG DEVELOPER [facility] [place], [place] [id number] Segment Assembler Internal Medicine 09/07/24 Remelt Furnace Expediter Relationship Specialty Start Date End Date Bg Chavarria MD [address] [place], [place] [address] PCP - General Internal Medicine 05/04/13 Sincere Hopkins MD [address] [place] [address] Referring Orthopedics 06/29/23 Sincere Hopkins MD [address] [place] [address] Home Care Provider Orthopedics 06/29/23 Luis Manuel Hernandez APRN.WAREHOUSE SUPERVISOR [address] [place] [address] Segment Assembler Internal Medicine 09/07/24 Linda Silva APRN.LEAD ATG DEVELOPER [address] [place] [address] Segment Assembler Internal Medicine 09/07/24 Remelt Furnace Expediter Relationship Specialty Start Date End Date Bg Chavarria MD [address] [place] [address] PCP - General Internal Medicine 05/04/13 Sincere Hopkins MD [address] [place] [address] Referring Orthopedics 06/29/23 Sincere Hopkins MD [address] [place] [address] Home Care Provider Orthopedics 06/29/23 Luis Manuel Hernandez APRN.WAREHOUSE SUPERVISOR [address] [place] [address] Segment Assembler Internal Medicine 09/07/24 Linda Silva APRN.LEAD ATG DEVELOPER [address] [place] [address] [place] [address] Segment Assembler Internal Medicine 09/07/24 Remelt Furnace Expediter Relationship Specialty Start Date End Date Bg Chavarria MD [facility] [place] [address] PCP - General Internal Medicine 05/04/13 Sincere Hopkins MD [address] [place] [address] Referring Orthopedics 06/29/23 Sincere Hopkins MD [address] [place] [address] Home Care Provider Orthopedics 06/29/23 Luis Manuel Hernandez, BINDERY SUPERVISOR.WAREHOUSE SUPERVISOR [address] [place] [address] Segment Assembler Internal Medicine 09/07/24 Linda Silva, BINDERY SUPERVISOR.LEAD ATG DEVELOPER [address] [place] [id number] Segment Assembler Internal Medicine 09/07/24 Remelt Furnace Expediter Relationship Specialty Start Date End Date Bg Chavarria MD [address] [place], [place] [address] PCP - General Internal Medicine 05/04/13 Sincere Hopkins MD [address] [place] [address] Referring Orthopedics 06/29/23 Sincere Hopkins MD [address] [place] [address] [id number] Home Care Provider Orthopedics 06/29/23 Luis Manuel Hernandez, BINDERY SUPERVISOR.WAREHOUSE SUPERVISOR [address] [place] [address] Segment Assembler Internal Medicine 09/07/24 Linda Silva BINDERY SUPERVISOR.LEAD ATG DEVELOPER [address] [place] [address] Segment Assembler Internal Medicine 09/07/24 Remelt Furnace Expediter Relationship Specialty Start Date End Date Bg Chavarria MD [address] [place], [place] [id number] PCP - General Internal Medicine 05/04/13 Sincere Hopkins MD [address] [place] [address] Referring Orthopedics 06/29/23 Sincere Hopkins MD [address] [place] [address] Home Care Provider Orthopedics 06/29/23 Luis Manuel Hernandez, BINDERY SUPERVISOR.WAREHOUSE SUPERVISOR [address] [place] [address] Segment Assembler Internal Medicine 09/07/24 Linda Silva BINDERY SUPERVISOR.LEAD ATG DEVELOPER [facility] [place], [place] [id number] Segment Assembler Internal Medicine 09/07/24 Remelt Furnace Expediter Relationship Specialty Start Date End Date Bg Chavarria MD [address] [place] [address] PCP - General Internal Medicine 05/04/13 Sincere Hopkins MD [address] [place] [address] Referring Orthopedics 06/29/23 Sincere Hopkins MD [address] [place] [address] Home Care Provider Orthopedics 06/29/23 Luis Manuel Hernandez, CARMEL.WAREHOUSE SUPERVISOR [address] [place] [address] Segment Assembler Internal Medicine 09/07/24 Linda Silva APRN.LEAD ATG DEVELOPER [address] [place] [address] Segment Assembler Internal Medicine 09/07/24 Remelt Furnace Expediter Relationship Specialty Start Date End Date Bg Chavarria MD [address] [place] [address] PCP - General Internal Medicine 05/04/13 Sincere Hopkins MD [address] [place] [address] Referring Orthopedics 06/29/23 Sincere Hopkins MD [address] [place] [address] Home Care Provider Orthopedics 06/29/23 Luis Manuel Hernandez APRN.WAREHOUSE SUPERVISOR [address] [place] [address] Segment Assembler Internal Medicine 09/07/24 Linda Silva BINDERY SUPERVISOR.LEAD ATG DEVELOPER [address] [place] [address] Segment Assembler Internal Medicine 09/07/24 Remelt Furnace Expediter Relationship Specialty Start Date End Date Bg Chavarria MD [address] [place] [address] PCP - General Internal Medicine 05/04/13 Sincere Hopkins MD [address] [place] [address] Referring Orthopedics 06/29/23 Sincere Hopkins MD [facility] [place] [address] Home Care Provider Orthopedics 06/29/23 Luis Manuel Hernandez APRN.WAREHOUSE SUPERVISOR [address] [place] [address] Segment Assembler Internal Medicine 09/07/24 Linda Silva APRN.LEAD ATG DEVELOPER [address] [place] [address] Segment Assembler Internal Medicine 12/22/24 Remelt Furnace Expediter Relationship Specialty Start Date End Date Bg Chavarria MD [address] [place] [address] PCP - General Internal Medicine 05/04/13 Sincere Hopkins MD [address] [place] [address] Referring Orthopedics 06/29/23 Sincere Hopkins MD [address] [place] [address] Home Care Provider Orthopedics 06/29/23 Luis Manuel Hernandez, BINDERY SUPERVISOR.WAREHOUSE SUPERVISOR [address] [place] [address] Segment Assembler Internal Medicine 09/07/24 Linda Silva BINDERY SUPERVISOR.LEAD ATG DEVELOPER [address] [place] [address] Segment Assembler Internal Medicine 12/22/24 Remelt Furnace Expediter Relationship Specialty Start Date End Date Bg Chavarria MD [address] [place] [address] PCP - General Internal Medicine 05/04/13 Sincere Hopkins MD [address] [place] [address] Referring Orthopedics 06/29/23 Sincere Hopkins MD [address] [place] [address] Home Care Provider Orthopedics 06/29/23 Luis Manuel Hernandez, BINDERY SUPERVISOR.WAREHOUSE SUPERVISOR [address] [place] [address] Segment Assembler Internal Medicine 09/07/24 Linda Silva BINDERY SUPERVISOR.LEAD ATG DEVELOPER [address] [place] [address] Segment Assembler Internal Medicine 12/22/24 Remelt Furnace Expediter Relationship Specialty Start Date End Date Bg Chavarria MD [address] [place] [address] PCP - General Internal Medicine 05/04/13 Sincere Hopkins MD [address] [place] [address] Referring Orthopedics 06/29/23 Sincere Hopkins MD [address] [place] [address] Home Care Provider Orthopedics 06/29/23 Linda Silva APRN.LEAD ATG DEVELOPER [address] [place] [address] Segment Assembler Internal Medicine 12/22/24 Luis Manuel Hernandez APRN.WAREHOUSE SUPERVISOR [address] [place] [address] Segment Assembler Internal Medicine 02/17/25 Remelt Furnace Expediter Relationship Specialty Start Date End Date Bg Chavarria MD [address] [place] [address] PCP - General Internal Medicine 05/04/13 Sincere Hopkins MD [address] [place] [address] Referring Orthopedics 06/29/23 Sincere Hopkins MD [address] [place] [address] Home Care Provider Orthopedics 06/29/23 Linda Silva APRN.LEAD ATG DEVELOPER [address] [place] [address] Segment Assembler Internal Medicine 12/22/24 Luis Manuel Hernandez APRN.WAREHOUSE SUPERVISOR [address] [place] [address] Segment Assembler Internal Medicine 02/17/25 Remelt Furnace Expediter Relationship Specialty Start Date End Date Bg Chavarria MD [address] [place] [address] PCP - General Internal Medicine 05/04/13 Sincere Hopkins MD [address] [place] [address] Referring Orthopedics 06/29/23 Sincere Hopkins MD [facility] [place] [address] Home Care Provider Orthopedics 06/29/23 Linda Silva APRN.LEAD ATG DEVELOPER [address] [place] [address] Segment Assembler Internal Medicine 12/22/24 Luis Manuel Hernandez APRN.WAREHOUSE SUPERVISOR [address] [place] [address] Segment Assembler Internal Medicine 02/17/25 Remelt Furnace Expediter Relationship Specialty Start Date End Date Bg Cahvarria MD [address] [place] [address] PCP - General Internal Medicine 05/04/13 Sincere Hopkins MD [address] [place] [address] Referring Orthopedics 06/29/23 Sincere Hopkins MD [address] [place] [address] Home Care Provider Orthopedics 06/29/23 Luis Manuel Hernandez, BINDERY SUPERVISOR.WAREHOUSE SUPERVISOR [address] [facility] [place] [address] Segment Assembler Internal Medicine 09/07/24 02/16/25 Linda Silva, BINDERY SUPERVISOR.LEAD ATG DEVELOPER [address] [place] [address] Segment Assembler Internal Medicine 12/22/24 Luis Manuel Hernandez, BINDERY SUPERVISOR.WAREHOUSE SUPERVISOR [address] [place] [address] Segment Assembler Internal Medicine 02/17/25 Remelt Furnace Expediter Relationship Specialty Start Date End Date Bg Chavarria MD [address] [place] [address] PCP - General Internal Medicine 05/04/13 Sincere Hopkins MD [address] [place] [address] Referring Orthopedics 06/29/23 Sincere Hopkins MD [address] [place] [address] Home Care Provider Orthopedics 06/29/23 Linda Silva, BINDERY SUPERVISOR.LEAD ATG DEVELOPER [address] [place] [address] Segment Assembler Internal Medicine 12/22/24 Luis Manuel Hernandez, CARMEL.WAREHOUSE SUPERVISOR [address] [place] [address] Segment Assembler Internal Medicine 02/17/25 Team Status: Active Member [...] 2025 End: April 20, 2025 Rekha Rojas SENIOR BIOSTATISTICIAN/GROUP LEADER, SENIOR BIOSTATISTICIAN/GROUP LEADER-C Attending Provider Active Start: April 20, 2025 End: April 20, 2025 Remelt Furnace Expediter Relationship Specialty Start Date End Date Bg Chavarria MD [address] [place] [address] PCP - General Internal Medicine 05/04/13 Sincere Hopkins MD [address] [place] [address] Referring Orthopedics 06/29/23 Sincere Hopkins MD [address] [place] [address] Home Care Provider Orthopedics 06/29/23 Linda Silva, BINDERY SUPERVISOR.LEAD ATG DEVELOPER [address] [place] [address] Segment Assembler Internal Medicine 12/22/24 Luis Manuel Hernandez, BINDERY SUPERVISOR.WAREHOUSE SUPERVISOR [address] [place] [address] Segment Assembler Internal Medicine 02/17/25 Remelt Furnace Expediter Relationship Specialty Start Date End Date Bg Chavarria MD [address] [place] [address] PCP - General Internal Medicine 05/04/13 Sincere Hopkins MD [address] [place] [address] Referring Orthopedics 06/29/23 Sincere Hopkins MD [address] [place] [address] Home Care Provider Orthopedics 06/29/23 Linda Silva APRN.LEAD ATG DEVELOPER [address] [place] [address] Segment Assembler Internal Medicine 12/22/24 Luis Manuel Hernandez APRN.WAREHOUSE SUPERVISOR [address] [place] [address] Segment Assembler Internal Medicine 02/17/25 Team Status: Active Member Role/Relationship Status Dates Dr. Bg Chavarria MD Primary Care Provider Active Team Status: Inactive Member Role/Relationship Status Dates Dr. Bg Chavarria MD Primary Care Provider Active Start: May 22, 2025 End: May 22, 2025 Dr. Uvaldo Shipley DO Emergency Provider Active Start: May 22, 2025 End: May 22, 2025 Remelt Furnace Expediter Relationship Specialty Start Date End Date Bg Chavarria MD [address] [place] [address] PCP - General Internal Medicine 05/04/13 Sincere Hopkins MD [address] [place] [address] Referring Orthopedics 06/29/23 Sincere Hopkins MD [address] [place] [address] Home Care Provider Orthopedics 06/29/23 Linda Silva APRN.LEAD ATG DEVELOPER [address] [place] [address] Segment Assembler Internal Medicine 12/22/24 Luis Manuel Hernandez, BINDERY SUPERVISOR.WAREHOUSE SUPERVISOR [address] [place] [address] Segment Assembler Internal Medicine 02/17/25 Reason for Visit (unrecogniz ed section and content) Reason Comments Physical Therapy Specialty Diagnoses / Procedures Referred By Contac t Referred To Contact PHYSICAL THERAPY Diagnoses Status post hip replacement, right Procedures CONSULT TO PHYSICAL THERAPY PHYSICAL THERAPY EVALUATION HIGH COMPLEX 45 MINS Joe Jiang PA-C [address] [address] Haley Snyder, ALEXANDER Referral ID Status Reason Start Date Expiration Date Visits Requested Visits Authorized [id number] Authorized PCP Requested Referral 3 09/29/2023 99 99 Reason Comments PT Progress Note Reason Comments Orders Reason Comments Insurance Authorization risedronate (ACT PAULIE) 35 mg tablet Refill Request Reason Comments Appointment Reason Comments New Follow Up Hip Replacement Reason Onset Date Comments Follow Up Radiology Mammogram 02/27/2022 at [facility] Reason Comments Consult colonoscopy Specialty Diagnoses / Procedures Referred By Contac t Referred To Contact Gastroenterology Diagnoses Colon cancer screening Procedures CONSULT TO GASTROENTEROLOGY OFFICE/OUTPATIENT NEW HIGH MDM 60-74 MINUTES Bg Chavarria MD [facility] [place] [address] Referral ID Status Reason Start Date Expiration Date V isits Requested Visits Authorized [id number] Closed PCP Requested Referral 02/27/2022 02/27/2023 1 1 Reason Comments Radiology Mammogram Specialty Diagnoses / Procedures Referred By Contac t Referred To Contact [facility] Diagnoses Breast cancer screening by mammogram Procedures ANGIE SCREENING SCREENING MAMMOGRAPHY BI 2-VIEW BREAST INC CAD Bg Chavarria MD [address] [place] [address] [facility] [address] [place] [address] Referral ID Status Reason Start Date Expiration Date V isits Requested Visits Authorized [id number] Closed Auto-Generate d Referral 02/27/2022 05/28/2022 3 [...] 45 MINS Lorena Jacobsen MD [address] [address] [facility] [address] [address] Referral ID Status Reason Start Date Expiration Date Visits Requested Visits Authorized [id number] Authorized PCP Requested Referral Auto-Generate d Referral 02/07/2023 02/07/2024 99 99 Reason Comments PT Progress Note Specialty Diagnoses / Procedures Referred By Contconchis t Referred To Contact [facility] Diagnoses Trochanteric bursitis of right hip Procedures CONSULT TO PHYSICAL THERAPY PHYSICAL THERAPY EVALUATION HIGH COMPLEX 45 MINS Lorena Jacobsen MD [address] [address] [facility] [address] [address] Reason Comments F/U 4 month Reason Comments [...] Date Expiration Date Visits Requested Visits Authorized [id number] Authorized PCP Requested Referral 3 10/29/2023 99 [...] Request Reason Comments CARD New Patient Consult SENIOR BIOSTATISTICIAN/GROUP LEADER REF FOR SVT Reason Comments Preparations For [...] section and content) DATE CREATED AUTHOR 07/21/2024 [facility] DATE CREATED AUTHOR AUTHOR'S ORGANIZ ATION 05/01/2025 [facility] DATE CREATED AUTHOR AUTHOR'S ORGANIZ ATION 05/10/2025 [facility] DATE CREATED AUTHOR AUTHOR'S ORGANIZ ATION 05/29/2025 [facility] Goals (unrecognized section and content) Goals may be documented in a n alternate sectionGoals may be documented in an alternate section FOR RECORDS PERTAINING TO PATIENTS [...] BE BASED ON THE PRIMARY CLINICAL RECORDS. [employer] provides no warranty or guarantee of the accuracy or completeness of information in this document.
[2025-05-29 13:51] LABS: Hematocrit 21.8 % (37-47); Hemoglobin 7.3 g/dL (12.0-15.0); Immature Granulocytes Count 0.020 X10^3/uL (0.0-0.0); Mean Corp Hgb Conc 33.5 g/dL (32-36); Mean Corpuscular Volume 89.0 fL (81-99); Mean Platelet Vol. 9.1 fl (6.2-12.0); NRBC Flagged by Analyzer 0 % (0-5); Platelet Count 319 K/mm3 (150-450); RBC Distribution Width CV 14.3 % (11.6-14.6); RBC Distribution Width SD 46.3 fl (35.1-43.9); Red Blood Count 2.45 M/mm3 (4.2-5.4); White Blood Count 7.4 K/mm3 (4.4-11.0)
[2025-05-29 15:11] LABS: Anion Gap 13 (5-15); BUN 33 mg/dL (4-19); BUN/Creat Ratio 32.5 RATIO (10-20); Calcium,Total 9.1 mg/dL (7.6-11.0); Carbon Dioxide 24.4 mmol/L (21.0-32.0); Chloride 101 mmol/L (98-108); Estimated Creatinine Clearance 30.02 ml/min (50-250); Glucose 112 mg/dL (70-99); Potassium 4.4 mmol/L (3.3-5.1)
--- NOTE | 2025-05-29 16:19 | HP.PCM.HOS_ITS ---
HPI - General General Date of Admission: 05/29/25 Date of Service: 05/29/25 Chief Complaint: Lower GI bleed HPI Narrative JOE CEE, is a 84 F came to ED for dark brownish stool in the first 2 days of the this week Saturday and Saturday and was found low hemoglobin Saturday saw her PCP at [facility] and lab was drawn yesterday and was found hemoglobin dropped to 7.3 which was significant and then last labs on past Saturday night when it was 8.3 g% and was told to go to ED for suspected GI bleed. She was seen in ED past Saturday for generalized weakness and fatigue and difficulty in a ADL and loose BM but was sent home after she felt better. After last ED visit, she had first 2 days of dark stool and then she did not had BM for last 2 days. She is passing flatus. She feels mild belching otherwise no vomiting or hematemesis. She denies abdominal pain. Last EKG on 05/22/2025 shows NSR with sinus arrhythmia, LAD at 83 bpm. Patient has significant history of paroxysmal SVT and is on Eliquis 2.5 mg twice daily. She had ablation for SVT earlier this year. Patient was also taking meloxicam 7.5 mg daily which she has stopped. She has chronic back pain, osteoporosis and kyphoscoliosis, uses cane for ambulation. [facility] Medical History Aortic valve insufficiency Abnormality of gait Osteopenia Elevated LDL cholesterol level Vitamin D deficiency Trochanteric bursitis of right hip SI (sacroiliac) joint inflammation Former smoker Abnormal electro-oculogram GERD (gastroesophageal reflux disease) Type 2 diabetes mellitus Preop cardiovascular exam Multiple sclerosis DJD (degenerative joint disease) of cervical spine Expressive aphasia Home Medications ?Medication ?Instructions ?Recorded ?Last Taken ?Type conjugated estrogens 0.625 mg/gram 0.3125 mg vaginal D AILY Estrogen 01/24/21 Unknown History vaginal cream lactase 9,000 unit tablet (Lactase 9,000 unit PO ONCE PRN lactose 01/24/21 Unknown History Fast Acting) intolerance cyanocobalamin (vitamin B-12) 1,000 mcg IM QMONTH #0 m L 02/15/21 Unknown Rx 1,000 mcg/mL injection solution alendronate 70 mg tablet 70 mg PO QWEEK 08/06/24 Unkn own History cholecalciferol (vitamin D3) 125 5,000 unit PO QWEEK S upplement 08/13/24 Unknown History mcg (5,000 unit) capsule meloxicam 15 mg tablet 7.5 mg PO ONCE Arthritis pavel n 08/13/24 Unknown History metoprolol succinate 25 mg 12.5 mg PO QDAY 08/31/24 Un known History tablet,extended release 24 hr apixaban 2.5 mg tablet (Eliquis) 2.5 mg PO BID 5 Unknown History metformin 500 mg tablet,extended 500 mg PO DAILY 05/29 Unknown History release 24 hr Allergy/AdvReac Type Severity Reaction Status Date / Time Penicillins Allergy Severe Rash Verified 05/29/25 12:47 amoxicillin Allergy Rash Verified 05/29/25 12:47 clindamycin AdvReac Severe Diarrhea Verified 05/29/25 12:47 prochlorperazine (From AdvReac Other Verified 05/29/25 12:47 Compazine) triazolam (From Halcion) AdvReac Other Verified 05/29/25 12:47 Family History Father Colon cancer Mother Thyroid disorder Osteoporosis Surgical History History of right hip replacement History of left hip replacement History of tonsillectomy History of bunionectomy History of left inguinal hernia repair History of tubal ligation Social History household members: spouse Smoking Status: Former smoker quit date: 09/30/92 Electronic Cigarette Use: not used alcohol intake: current details: Glass of wine daily. substance use type: does not use caffeine: Yes ROS ROS Narrative Constitutional: Reports fatigue and weakness. No fever. HEENT: Reports systems reviewed and no addt'l complaints, except as documented Respiratory/Chest: No acute shortness of breath or respiratory distress or wheezing. CVS: No recent chest pain. Chronic dyspnea on exertion Gastrointestinal: Denies coffee ground emesis, hematemesis or vomiting Genitourinary: Denies burning urination or new urinary tract symptoms Musculoskeletal: Denies acute joint pain or limited range of motion. No acute injury Neurologic: Denies seizure-like symptoms. skin: No ulcer. No rash Endocrinology: Reports systems reviewed and no addt'l complaints, except as documented Hematologic/Lymphatic: Reports systems reviewed and no addt'l complaints, except as documented Rest 14 ROS are negative except as mentioned in HPI Vital Signs Vital Signs Vital Signs: 05/29/25 12:45 05/29/25 15:23 05/29/25 15:25 Temperature 98 F Temperature Source Oral Pulse Rate 76 67 Pulse Rate [Lying] 61 Pulse Rate [Sitting (for 1 minute prior to obtaining)] 61 Pulse Rate [Standing (for 1 minute prior to obtaining)] 67 Respiratory Rate 16 17 Blood Pressure 116/58 L 151/76 H Blood Pressure [Lying] 142/58 H Blood Pressure [Sitting (for 1 minute prior to obtaining)] 141/52 H Blood Pressure [Standing (for 1 minute prior to obtaining)] 151/76 H Blood Pressure Mean 77 101 Blood Pressure Mean [Lying] 86 Blood Pressure Mean [Sitting (for 1 minute prior to obtaining)] 81 Blood Pressure Mean [Standing (for 1 minute prior to obtaining)] 101 Pulse Ox 98 100 Oxygen Delivery Method Room Air Room Air Weight Weight: 112 lb 10.499 oz Body Mass Index (BMI) 21.9 Physical Exam Narrative General: Alert, Oriented x3, Cooperative HEENT: Atraumatic, PERRLA, EOMI, Normocephalic. Oral: No Gingival or Mucosal Lesions/ Ulcerations Neck: Supple, No JVD, Negative Carotid Bruits Chest wall/Lungs: Air entry diminished in bilateral lung bases. No crepitation/rhonchi Cardiovascular: Irregular rhythm, sinus arrhythmia, Normal S1,S2, no murmur gallop or rub. Orthostatic hypotension negative. Abdomen: Bowel Sounds Present, Soft, Non Tender, Non-Distended : No dysuria. No renal angle tenderness. No suprapubic tenderness. Extremities: No edema, Capillary Refill Less than 3 Seconds Skin: No rashes, No breakdown Musculoskeletal/spine: No Tenderness to Palpation of Joints or Extremities. Chronic kyphoscoliosis. On 4 pronged cane. Degenerative arthritis of knees. Neurological: Cranial nerves II-XII grossly intact, DTR 2+/4. No acute focal neurological deficit. Psych/Mental Status: Normal Affect, Appropriate. Results Lab / Micro Data 05/29/25 13:21 05/29/25 13:21 Labs: Laboratory Results - last 24 hr 05/29/25 13:21: WBC 7.4, RBC 2.45 L, Hgb 7.3 L, Hct 21.8 L, MCV 89.0, MCH 29.8, MCHC 33.5, RDW Std Deviation 46.3 H, RDW Coeff of Danny 14.3, Plt Count 319, MPV 9.1, Immature Gran % (Auto) 0.300, Neut % (Auto) 63.2, Lymph % (Auto) 23.3, [place] % (Auto) 10.2 H, Eos % (Auto) 2.7, Baso % (Auto) 0.3, Absolute Neuts (auto) 4.7, Absolute Lymphs (auto) 1.73, Nucleated RBC % 0, Sodium 138, Potassium 4.4, Chloride 101, Carbon Dioxide 24.4, Anion Gap 13, BUN 33 H, Creatinine 1.02, E stim Creat Clear Calc 30.02 L, Est GFR (MDRD) Non-Af 55 L, BUN/Creatinine Ratio 32.5 H, Glucose 112 H, Calcium 9.1 Micro: Microbiology 05/29/25 14:59 Stool Stool Occult Blood ([facility]) - Final Occult Blood Positive Assessment & Plan Assessment/Plan (1) GI bleeding: (2) Anemia: PLAN: Plan This is a 84-year-old female being admitted for lower GI bleed with severe anemia 1. Suspected lower GI bleed complicated with severe anemia: Patient is being admitted in PCU. H&H 7.4/21.8%. Platelet count 319K. Stool for occult blood positive. PT/INR ordered. Hold Eliquis. Discontinue meloxicam. GI is consulted for possible colonoscopy. IV PPI ordered. Type and cross 1 unit of PRBC and transfuse. Clear liquid diet. 2. Acute on chronic normocytic normochromic anemia: Patient baseline hemoglobin is on lower side 10.4 to 12.9 g% in 2020 and most recent 8.3 g / 25% on 05/22/2025. Admitting H&H above. Transfused 1 unit of PRBC and monitor H&H every 6 hourly afterwards. 3. Paroxysmal SVT status post ablation in September 2024 and mild to moderate valvular heart disease: Patient on metoprolol succinate 12.5 mg daily, and Eliquis 2.5 mg twice daily. Hold Eliquis. Patient follows [facility], Dr. Arcos. Last EKG was sinus arrhythmia admission HPI. Currently no recent or acute chest pain shortness of breath but chronic dyspnea on exertion on walking. Last echo in August 2020 for showed normal LV systolic function, EF 65%, mild MR, mild to moderate AR 4. Past history of TIA with Broca's/expressive aphasia: Had complete evaluation of symptoms. No acute issues now. 5. 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 Hold alendronate. 6. Type II DM: Patient on metformin at home. Accu-Chek before meals and at bedtime with Humalog sliding scale coverage and hypoglycemia protocol. Hold metformin. Clear liquid diet. 7. DVT prophylaxis, high risk: Pharmacological prophylaxis contraindicated. Bilateral SCDs Living will/advanced directive/end of life care: Patient does have living will or advanced directive. Her daughter is power of lead burner supervisor for health. After discussion of benefits/risks procedures involved with full code, DNR CC arrest and DNR CC, the patient opted for DNR CC arrest with no intubation Patient doesn't want artificial life support including intubation, tube feed, ventilator and/chest compression, and DC shock if needed Total time spent in [id number] encounter in discussion of advanced directive 17 minutes. Microbiology Past 72 Hours 05/29/25 14:59 Stool Stool Occult Blood ([facility]) - Final Occult Blood Positive Laboratory Results 05/29/25 13:21: WBC 7.4, RBC 2.45 L, Hgb 7.3 L, Hct 21.8 L, MCV 89.0, MCH 29.8, MCHC 33.5, RDW Std Deviation 46.3 H, RDW Coeff of Danny 14.3, Plt Count 319, MPV 9.1, Immature Gran % (Auto) 0.300, Neut % (Auto) 63.2, Lymph % (Auto) 23.3, [place] % (Auto) 10.2 H, Eos % (Auto) 2.7, Baso % (Auto) 0.3, Absolute Neuts (auto) 4.7, Absolute Lymphs (auto) 1.73, Nucleated RBC % 0, Sodium 138, Potassium 4.4, Chloride 101, Carbon Dioxide 24.4, Anion Gap 13, BUN 33 H, Creatinine 1.02, Estim Creat Clear Calc 30.02 L, Est GFR (MDRD) Non-Af 55 L, BUN/Creatinine Ratio 32.5 H, Glucose 112 H, Calcium 9.1 Charges/Coding Visit Charges Inpatient E&M: 33257 Init Hosp L3 Procedures Hospitalists Procedures: 53352 Advncd Care Plan 30 Min
--- OUTSIDE RECORDS SUMMARY | 2025-05-29 16:49 | XMS RPT_ITS | CCD ---
Author Organization [facility] Care Team Providers Care Clinical Trials Specialist Name Role Phone Bg Chavarria MD Primary Care Provider Bg Chavarria MD Primary Care Provider Reji Gibbons Unavailable Unavailable Sincere Hopkins MD Unavailable Sincere Hopkins MD Unavailable Bg Chavarria MD Primary Care Provider BG CHAVARRIA Primary Care Unavailable SINCERE HOPKINS Referring Unavail able LORENA JACOBSEN Referring Unavailable BG CHAVARRIA Primary Care Unavailable BG CHAVARRIA Primary Care Unavailable Hernandez FORESTRY PILOT.RN CALL CENTER, Luis Manuel Unavailable Tigist FORESTRY PILOT.UNDERWEAR HEMMER, Linda Unavailable Tigist FORESTRY PILOT.UNDERWEAR HEMMER, Linda Unavailable Tigist FORESTRY PILOT.UNDERWEAR HEMMER, Linda Unavailable Hernandez FORESTRY PILOT.RN CALL CENTER, Luis Manuel Unavailable Hernandez FORESTRY PILOT.RN CALL CENTER, Luis Manuel Unavailable Dr. Bg Chavarria MD Primary Care Provider [phone] Dr. Bg Chavarria MD Referring Provider Rekha [...] Drug Allergy 07-12-20 06 Contraindicati on-Medical Surgical [facility] Work Phone: Penicillins (antibiotic) (2 sources) Amoxicillin Drug Allergy 07-11-20 Rash, Intolerance [facility] Prochlorperazine (2 sources) Prochlorperazine Drug Allergy 07-11-20 06 Intolerance, Dystonia [facility] (20 sources) Amoxicillin; Translations: [AMOXICILLIN] Drug Allergy 06-24-20 15 Rash [facility] Work Phone: (20 sources) Clindamycin; Translations: [CLINDAMYCIN] Drug Allergy 07-12-20 06 Contraindicati on-Medical Surgical [facility] Work Phone: (20 sources) Penicillins; Translations: [PENICILLINS] Drug Allergy 07-11-20 Rash, Intolerance [facility] Work Phone: (20 sources) Prochlorperazine; Translations: [PROCHLORPERAZINE EDISYLATE] Drug Allergy 07-11-20 06 Intolerance [facility] Work Phone: (20 sources) Penicillins Drug Allergy 07-11-20 06 Rash, Intolerance [facility] Work Phone: (20 sources) Prochlorperazine; Translations: [PROCHLORPERAZINE] Drug Allergy 06-30-20 23 Dystonia [facility] (11 sources) Penicillins Drug Allergy 07-11-20 Rash, Intolerance [facility] (2 sources) Penicillins Allergy to substance 04-20-20 Rash [facility] (1 source) Triazolam Drug Allergy 05-22-20 Other [facility] (1 source) Amoxicillin Drug Allergy 05-22-20 [facility] (1 source) Clindamycin Drug Allergy 05-22-20 [facility] (1 source) Penicillins Drug allergy (disorder) 05-22-20 [facility] (1 source) Prochlorperazine Drug Allergy 05-22-20 [facility] (1 source) Triazolam Drug Allergy 05-22-20 [facility] Medications Current Medications Medication Drug Class(es) [...] Comment on above: Take 1 tablet by magui th one time a week. Take with [...] Comment on above: Take 1 capsule by [facility] once daily. Hold for 1 month the n take once weekly doxycycline hyclate 100 mg oral tablet (1 source) Tetracycline-class Drug Start: 06-28-2023 End: 07-05-2023 take 1 tablet by mouth twice daily doxycycline (VIBRA-TABS) 100 mg tablet Take 1 tablet by mouth two times a day for 7 days. 14 tablet 0 06/28/2023 COLONOSCOPY FLX DX W/COLLJ SPEC WHEN PFRMD [...] Discussed expected course of illness Madeleine Jung APRN.SEEMA and Recording using [employer] software for draft documentation of the visit was discussed with thepatient/authorized union contract representative; all questions welcomed and answered. Patient/authorized union contract representative agreed to proceed Disposition The patient was discharged. OTC Medications were advised: Procedures documented in this encounterHigh[facility]05-19-[facility] Instructions* Patient Instructions* Oxana Darling APRN.SEEMA - 02/15/2025 4:32 PM EDT We discussed [...] twice daily for stroke prevention. Please check withur insurance to determine the most affordable option [...] by calling the office. documented in this encounterHigh[facility] Hospital05-19-2025 History of Present illness Narrative* Oxana Darling APRN.CNP - 02/15/2025 4:00 PM EDT Images from the original note were not included. [facility] [place] General Cardiology Electrophysiology PRIMARY CARE PHYSICIAN: Bg Chavarria [address] [place] [address] CHIEF COMPLAINT: Cardiovascular medicine follow-up for arrhythmia. [...] -normal sinus rhythm, rightward axis, 65 bpm, MD 130 ms, QRS 68 ms, QT/QTc 392/407 [...] for Dr. Rodriguez or CARMEL. Recording using [employer] software for draft documentation of the visit was discussed with the patient/authorized union contract representative; all questions welcomed and answered. Patient/authorized union contract representative agreed to proceed Oxana Darling APRN.CNP Medical Decision Making: Problems: Moderate: 1+ chronic [...] to correct any errors. documented in this encounterHighland [facility] Hospital05-19-2025 NoteHNO ID: [id number] Author: OXANA DARLING APRN.SEEMA Service: ? Author Type: Nurse Practitioner Type: Progress Notes Filed: 02/15/2025 16:46 Note Text: [facility] General Cardiology Electrophysiology PRIMARY CARE PHYSICIAN: Bg Chavarria [address] [place] [address] CHIEF COMPLAINT: Cardiovascular medicine follow-up for arrhythmia. [...] plans to contact her (more content not included)...[facility] 02-15-2025 NoteHNO ID: [id number] Author: ADALI DURAN MD Service: ? Author [...] findings Adali Duran May 07, 2025 10:08 [facility]05-19-2025 Telephone encounter Note* Telephone Encounter - Beata Vila LPN - 02/15/2025 8:44 AM EDT All faxed back to the number on the form. [facility]05-19-2025 Miscellaneous Notes* Telephone Encounter - Beata Vila LPN - 02/15/2025 8:44 AM EDT All faxed back to the number on the form. * Telephone Encounter - Bg Chavarria MD - 02/13/2025 2:10 PM EDT Attached snap shot, completed and signed * Telephone Encounter - Beata Vila LPN - 02/10/2025 3:42 PM EDT Rec'd [...] implants. Nika Joshi RN documented in this encounterHighland [facility] Hospital05-17-2025 Telephone encounter Note * Telephone Encounter - Bg Chavarria MD - 02/13/2025 2:10 PM EDT Attached snap shot, completed and signed [facility]05-14-2025 Telephone encounter Note* Telephone Encounter - Beata Vila LPN - 02/10/2025 3:42 PM EDT Rec'd and to pcp to review. [facility]05-14-2025 Telephone encounter Note* Telephone Encounter - Nika Joshi RN - 02/10/2025 2:18 PM EDT Oxana calling from [facility] (office of Dr. Mp Haile) and states she will be faxing PCP office a clearance form for provider to complete for an upcoming procedure pt wishes to have. States pt is interested in extractions and dental implants. Nika Joshi RN [facility]05-05-2025 Telephone encounter Note* Telephone Encounter - [...] Fagan APRN.CNP February 01, 2025 12:25 PM [facility]05-05-2025 Miscellaneous Notes* Telephone Encounter - Josue [...] 01, 2025 12:25 PM documented in this encounterHighland District Hospital04-30-2025 Telephone encounter Note * Telephone Encounter - Ana María Prajapati RN - 01/27/2025 9:57 AM EDT Pt has upcoming OV 02/15/25 with Peri. Does anything need done with the monitor report at this time? Ana María Prajapati RN [facility]04-30-2025 Miscellaneous Notes* Telephone Encounter - Ana María Prajapati RN - 01/27/2025 9:57 AM EDT Pt has upcoming OV 02/15/25 with Peri. Does anything need done with the monitor report at this time? Ana María Prajapati RN * Telephone Encounter - Ana María Prajapati RN - 01/01/2025 8:17 AM EDT 12/30/24 monitor report scanned into EventTool for your review. Ana María Prajapati RN documented in this encounterHighland District Hospital04-04-2025 Telephone encounter Note * Telephone Encounter - Ana María Prajapati RN - 01/01/2025 8:17 AM EDT 12/30/24 monitor report scanned into Event[employer] for your review. Ana María Prajapati RN [facility]03-21-2025 NoteHNO ID: [id number] Author: ?, ?, ? Service: ? Author Type: LICENSED NURSE Type: Progress Notes Filed: 12/18/2024 11:32 Note Text: Patient presents for COVID vaccine. Denies any problems at this time. Tolerated injection well. [facility] History of Present illness Narrative* ALIZA BIANCHI - 12/18/2024 11:31 AM EDT Patient presents for COVID vaccine. Denies any problems at this time. Tolerated injection well. Aliza Bianchi LPN documented in this encounterHighland District Hospital03-04-2025 Instructions* Patient Education - Nitin Burrell RN - 12/01/2024 12:00 PM EST Patient educated on 30 day event monitor, and verbalizes understanding. [facility]03-04-2025 Miscellaneous Notes* Patient Education - Nitin Burrell RN - 12/01/2024 12:00 PM EST Patient educated on 30 day event monitor, and verbalizes understanding. documented in this encounterHighland District Hospital03-04-2025 NoteHNO ID: [id number] Author: NITIN BURRELL RN Service: ? Author Type: Registered Nurse Type: Patient Education Filed: 12/01/2024 12:14 Note Text: Patient educated on 30 day event monitor, and verbalizes understanding.[facility]02-21-2025 Instructions* Patient Instructions* Bg Chavarria [...] your usual activities immediately. documented in this encounterHighland District Hospital02-21-2025 NoteHNO ID: [id number] Author: BG CHAVARRIA MD Service: ? Author Type: Physician Type: Progress Notes Filed: 11/20/2024 12:42 Note Text: This note was created using [employer]. Subjective Tania Romero is a 84 year [...] on apixaban and metoprolol, managed by her tag and label cutter. She reports occasional minor palpitations but otherwise [...] normal. Assessment and P (more content not included)...[facility] 11-20-2024 History of Present illness Narrative* Bg Chavarria MD - 11/20/2024 9:59 AM EST This note was created using [employer]. Subjective Tania Romero is a 84 year [...] on apixaban and metoprolol, managed by her tag and label cutter. She reports occasional minor palpitations but otherwise [...] of insulin (HCC) 01/24/2021 Typical atrial flutter ([facility] [...] (M81.0) - Continue Fosamax; prescription sent to [facility] with instructions to fill when due. [...] and treatment as indicated. documented in this encounterHighland District Hospital02-03-2025 History of Present illness Narrative* Luis Manuel Hernandez APRN.RN CALL CENTER - 11/02/2024 11:00 AM EST SUBJECTIVE: Advance [...] ([facility]) 10/27/2024 Social History Tobacco Use Smoking status: [...] Abs Lymph 1.00 - 4.00 k/uL 2.49 Victoria% % 9.0 Abs Victoria <0.87 k/uL 0.81 Eosin% % 1.9 Abs [...] Level: 4 - Moderate documented in this encounterHighland District Hospital02-03-2025 NoteHNO ID: [id number] Author: LUIS MANUEL HERNANDEZ APRN.CNS Service: ? Author Type: Nurse Specialist Type: Progress Notes Filed: 11/02/2024 11:38 Note Text: SUBJECTIVE: Advance Directive Discussion due on 09/30/2024 JOEY Romero is a 84 year old female. [...] once weekly Lactobacillus acidoph (more content not included)...[facility] 10-30-2024 Telephone encounter Note* Telephone Encounter [...] Pedroza APRN.CNP October 30, 2024 4:25 PM [facility]01-31-2025 Miscellaneous Notes* Telephone Encounter - Josue [...] 30, 2024 4:25 PM documented in this encounterHighland District Hospital01-16-2025 Telephone encounter Note * Telephone Encounter - Ana María Prajapati RN - 10/15/2024 11:55 AM EST Pt's name has been added to shipman procedure board. Ana María Prajapati RN [facility]01-16-2025 Miscellaneous Notes* Telephone Encounter - Ana María Prajapati RN - 10/15/2024 11:55 AM EST Pt's name has been added to shipman procedure board. Ana María Prajapati RN * Telephone Encounter - Olimpia Herzog - 10/15/2024 11:32 AM EST Patient is scheduled for an SVT Ablation on 10/[address] Rodriguez. The hospital will call the day before between 2-5pm with your arrival time. You should not eat or drink after midnight the day before the procedure. You will need a school bus driver/mechanic when released from the hospital and you will stay overnight for observation. You should continue to take medications as prescribed the morning of the procedure with just a sip of water but hold Metoprolol 5 days prior H&P morning of Spoke with Tania Romero on October 15, 2024. Informed of instructions as stated above. Patient verbalized understanding. Olimpia Herzog documented in this encounterHighland District Hospital01-16-2025 Telephone encounter Note * Telephone Encounter - Olimpia Herzog - 10/15/2024 11:32 AM EST Patient is scheduled for an SVT Ablation on 10/[address] Rodriguez. The hospital will call the day before between 2-5pm with your arrival time. You should not eat or drink after midnight the day before the procedure. You will need a school bus driver/mechanic when released from the hospital and you will stay overnight for observation. You should continue to take medications as prescribed the morning of the procedure with just a sip of water but hold Metoprolol 5 days prior H&P morning of Spoke with Tania Romero on October 15, 2024. Informed of instructions as stated above. Patient verbalized understanding. Olimpia Herzog [facility]12-26-2024 Instructions* Patient Instructions* Russell Rodriguez MD [...] healthcare provider's instructions for treatment. Developed by [employer]. Published by [employer]. Copyright 2014 [employer] and/or one of its subsidiaries. All rights reserved. documented in this encounterHighland District Hospital12-26-2024 NoteHNO ID: [id number] Author: RUTH CORBETT MA Service: ? Author Type: News Librarian Type: Progress Notes Filed: 10/01/2024 11:00 Note Text: Patient denies any cardiac issues or symptoms.[facility] 09-24-2024 History of Present illness Narrative* Ruth Corbett MA - 09/24/2024 1:09 PM EST Patient denies any cardiac issues or symptoms. * Russell Rodriguez MD - 09/24/2024 1:00 PM EST Images from the original note were not included. PRIMARY CARE PHYSICIAN: Bg Chavarria [address] [phone] REFERRING PHYSICIAN: Bg Chavarria [address] [address] Patient Care Team: Bg Chavarria MD as PCP - General (Internal Medicine) Sincere Hopkins MD as Referring (Orthopedics) Sincere Hopkins MD as Home Care Provider (Orthopedics) Luis Manuel Hernandez APRN.RN CALL CENTER as Heavy Equipment Rental Associate (Internal Medicine) Linda Silva APRN.UNDERWEAR HEMMER as Heavy Equipment Rental Associate (Internal Medicine) CHIEF COMPLAINT: SVT/presyncope HISTORY OF [...] 03/25/2025). Russell Rodriguez MD documented in this encounterHighland District Hospital12-26-2024 NoteHNO ID: [id number] Author: RUSSELL RODRIGUEZ MD Service: ? Author Type: Physician Type: Progress Notes Filed: 10/01/2024 11:00 Note Text: PRIMARY CARE PHYSICIAN: Bg Chavarria [address] [place] [address] REFERRING PHYSICIAN: Bg Chavarria [address] [facility] [address] Patient Care Team: Bg Chavarria MD as PCP - General (Internal Medicine) Sincere Hopkins MD as Referring (Orthopedics) Sincere Hopkins MD as Home Care Provider (Orthopedics) Luis Manuel Hernandez APRN.RN CALL CENTER as Heavy Equipment Rental Associate (Internal Medicine) Linda Silva APRN.UNDERWEAR HEMMER as Heavy Equipment Rental Associate (Internal Medicine) CHIEF COMPLAINT: SVT/presyncope HISTORY OF [...] ER (TOPROL XL) 25 (more content not included)...[facility]12-18-[facility]24 Telephone encounter Note* Telephone Encounter - Olimpia Herzog - 09/16/2024 11:37 AM EST Spoke to patient, scheduled 09/24 - offered sooner but patient could not make it work with her schedule. Olimpia Herzog [facility]12-18-2024 Miscellaneous Notes* Telephone Encounter - Olimpia [...] states she is ok with going to [place] for appointment with Dr. Ramirez for electrophysiology [...] weak and is afraid to go far. [facility] Cardiology wanted her to see an retail sales professional because they though the problem was electrical and wanted to see if an ablation would fix the problem and she wouldn't have to stay on the medication. Lilly Miller RN * Telephone Encounter - Kimmy Fox LPN - 09/15/2024 3:57 PM EST LEFT MESSAGE FOR PATIENT TO CALL OFFICE. * Telephone Encounter - Bg Chavarria MD - 09/13/2024 4:18 PM EST Okay meloxicam refills. Verify she drinks adequate fluid daily, especially on days takes meloxicam for kidney protection. Offer appointment with Dr. Ramirez in [place] for electrophysiology evaluation and treatment. He should be able to see her sooner than next January 2025. If she is fine with [place] [facility] referral, will file the consult order and reach out to him to help facilitate scheduling. Verify what her current heart symptoms are and severity so can pass that along to him. Reviewed that the 14-day event monitor (done for evaluation of syncope) had shown episodes of SVT with one episode max heart rate going up to 215bpm. Noted that [facility] cardiology did echocardiogram (some AV regurgitation note; good leftventricular ejection fraction) and stress test (no inducible ischemia). * Telephone Encounter - Liz Razo RN - 09/11/2024 3:39 PM EST Patient calls to request a referral to electrophysiology with [facility]. She reports that she went to see [facility] and her problem is with the electrical conduction of the heart. [facility] is recommending a referral to retail sales professional in [place] but she is not able to get in until January 2025. Patient asking if provider would be willing to place [facility] Not sure what to pend for this one. Also needs refill of meloxicam. Last OV: 07/28/2024 Next OV: 11/20/2024 Please review and advise, Liz Razo RN documented in this encounterHighland District Hospital12-17-2024 Telephone encounter Note * Telephone Encounter - Lilly Miller RN - 09/15/2024 4:14 PM EST Pt called and is notified of providers results and instructions. Pt voices understanding. Pt states she is ok with going to [place] for appointment with Dr. Ramirez for electrophysiology [...] weak and is afraid to go far. [facility] Cardiology wanted her to see an retail sales professional because they though the problem was electrical and wanted to see if an ablation would fix the problem and she wouldn't have to stay on the medication. Lilly Miller RN [facility]12-17-2024 Telephone encounter Note* Telephone Encounter - Kimmy Fox LPN - 09/15/2024 3:57 PM EST LEFT MESSAGE FOR PATIENT TO CALL OFFICE. [facility]12-15-2024 Telephone encounter Note* Telephone Encounter - Bg Chavarria MD - 09/13/2024 4:18 PM EST Okay meloxicam refills. Verify she drinks adequate fluid daily, especially on days takes meloxicam for kidney protection. Offer appointment with Dr. Ramirez in [place] for electrophysiology evaluation and treatment. He should be able to see her sooner than next January 2025. If she is fine with [place] [facility] referral, will file the consult order and reach out to him to help facilitate scheduling. Verify what her current heart symptoms are and severity so can pass that along to him. Reviewed that the 14-day event monitor (done for evaluation of syncope) had shown episodes of SVT with one episode max heart rate going up to 215bpm. Noted that [facility] cardiology did echocardiogram (some AV regurgitation note; good leftventricular ejection fraction) and stress test (no inducible ischemia). [facility]12-13-[facility] Telephone encounter Note* Telephone Encounter - Liz Razo RN - 09/11/2024 3:39 PM EST Patient calls to request a referral to electrophysiology with [facility]. She reports that she went to see [facility] and her problem is with the electrical conduction of the heart. [facility] is recommending a referral to retail sales professional in [place] but she is not able to get in until January 2025. Patient asking if provider would be willing to place [facility] Not sure what to pend for this one. Also needs refill of meloxicam. Last OV: 07/28/2024 Next OV: 11/20/2024 Please review and advise, Liz Razo RN [facility]12-07-20[facility] Telephone encounter Note* Telephone Encounter - Beata Vila LPN - 09/05/2024 11:40 AM EST Pt was last seen 07/28/24. Next appt with pcp 11/20/23. [facility]12-07-2024 Miscellaneous Notes* Telephone Encounter - Beata Vila LPN - 09/05/2024 11:40 AM EST Pt was last seen 07/28/24. Next appt with pcp 11/20/23. * Telephone Encounter - Dom Benavides RPh [...] 0 Dom Benavides RPh documented in this encounterHighland District Hospital12-06-2024 Telephone encounter Note * Telephone Encounter [...] this department: Visit date not found Last [facility] health visit in this department: Visit [...] in this encounter: 0 Dom Benavides RPh [facility]10-31-2024 Telephone encounter Note* Telephone Encounter - Tatianna Reyes RN - 07/30/2024 6:53 PM EDT OV today with Linda Reyes RN [facility]10-31-2024 Miscellaneous Notes* Telephone Encounter - Tatianna Reyes RN - 07/30/2024 6:53 PM EDT OV today with Linda Reyes RN * Telephone Encounter - Germaine Esparza LPN - 07/30/2024 2:25 PM EDT Left a message for pt to call the office and ask to speak to a nurse. Germaine Esparza LPN * Telephone Encounter - Germaine Esparza LPN - 07/30/2024 2:03 PM EDT ----- Message from Luis Manuel Lopez APRN.CNS sent at 07/28/2024 7:56 AM EDT ----- Please let her know that her preliminary Zio result shows primarily normal sinus rhythm but also had SVT episodes. This may well be cause of presyncope symptoms. Will add metoprolol succinate 25 mg daily. Rx to [facility]. She has an echocardiogram and cardiology appointment scheduled. Recommend ER for any severe or concerning symptoms. She has an OV today with Linda Silva CNP. documented in this encounterHighland District Hospital10-31-2024 Telephone encounter Note * Telephone Encounter - Germaine Esparza LPN - 07/30/2024 2:25 PM EDT Left a message for pt to call the office and ask to speak to a nurse. Germaine Esparza LPN [facility]10-31-2024 Telephone encounter Note* Telephone Encounter - Germaine Esparza LPN - 07/30/2024 2:03 PM EDT ----- Message from Luis Manuel Lopez APRN.RN CALL CENTER sent at 07/28/2024 7:56 AM EDT ----- Please let her know that her preliminary Zio result shows primarily normal sinus rhythm but also had SVT episodes. This may well be cause of presyncope symptoms. Will add metoprolol succinate 25 mg daily. Rx to [facility]. She has an echocardiogram and cardiology appointment scheduled. Recommend ER for any severe or concerning symptoms. She has an OV today with Linda Silva CNP. [facility]10-29-2024 Telephone encounter Note* Telephone Encounter - Linda Silva APRN.CNP - 07/28/2024 11:09 AM EDT Seen in office today and discussed. [facility]10-29-[facility] Miscellaneous Notes* Telephone Encounter - Linda Silva APRN.CNP - 07/28/2024 11:09 AM EDT Seen in office today and discussed. * Telephone Encounter - Hang Bustamante MD - 07/27/2024 7:04 PM EDT [...] patient for paroxysmal SVT. documented in this encounterHighland District Hospital10-29-2024 NoteHNO ID: [id number] Author: LINDA SILVA APRN.CNP Service: ? Author [...] and labs. Planning to do this with [facility]. Consulted to cardiology. Planning to see cardiology with [facility] in July. Recent zio showed [...] ACTIVE PROBLEM LIST Paroxysmal Svt (Supraventricular Tachycardia) (Hcc) - 07/28/2024 Status Post Hip Replacement, Right - 07/24/2023 Status Post Right Hip Replacement - 07/04/2023 Former Smoker - 06/26/2023 Si (Sacroiliac) Joint Inflammation (Hcc) - 06/24/2023 Trochanteric Bursitis of Right Hip - 02/08/2023 Vitamin D Deficiency - 03/04/2022 Elevated Ldl Cholesterol Level - 03/04/2022 Colon Cancer Screening - 03/04/2022 Type 2 Diabetes Mellitus, Without Long-Term Current Use of Insulin ([facility]) - 01/24/2021 Gerd (Gastroesophageal Reflux Disease) - 01/24/2021 Abnormal Ekg - 01/24/2021 Primary Osteoarthritis of Both Hips - 06/07/2020 Chronic Midline Low Back Pain Without Sciatica - 04/29/2019 Comment: Doing better with exercises; had PT Osteopenia Abnormality of Gait - 06/21/2016 Multiple Sclerosis ([facility]) - 05/31/2016 Low Vitamin B12 Level [...] Psychiatric: Attention and Perception: (more content not included)...[facility]10-29-2024 History of Present illness Narrative* Tigist, Linda, FORESTRY PILOT.UNDERWEAR HEMMER - 07/28/2024 10:54 AM EDT SUBJECTIVE Tania [...] and labs. Planning to do this with [facility]. Consulted to cardiology. Planning to see cardiology with [facility] in July. Recent zio showed [...] ACTIVE PROBLEM LIST Paroxysmal Svt (Supraventricular Tachycardia) ([facility]) - 07/28/2024 Status Post Hip Replacement, Right - 07/24/2023 Status Post Right Hip Replacement - 07/04/2023 Former Smoker - 06/26/2023 Si (Sacroiliac) Joint Inflammation ([facility]) - 06/24/2023 Trochanteric Bursitis of Right Hip - 02/08/2023 Vitamin D Deficiency - 03/04/2022 Elevated Ldl Cholesterol Level - 03/04/2022 Colon Cancer Screening - 03/04/2022 Type 2 Diabetes Mellitus, Without Long-Term Current Use of Insulin ([facility]) - 01/24/2021 Gerd (Gastroesophageal Reflux Disease) - 01/24/2021 Abnormal Ekg - 01/24/2021 Primary Osteoarthritis of Both Hips - 06/07/2020 Chronic Midline Low Back Pain Without Sciatica - 04/29/2019 Comment: Doing better with exercises; had PT Osteopenia Abnormality of Gait - 06/21/2016 Multiple Sclerosis ([facility]) - 05/31/2016 Low Vitamin B12 Level [...] appointment.. Linda Silva APRN-SEEMA documented in this encounterHigh[facility]10-28-[facility]24 Telephone encounter Note * Telephone Encounter - Hang Bustamante MD - 07/27/2024 7:04 PM EDT [...] blocking drugs with patient for paroxysmal SVT. [facility] Work Phone: 1(556) 736-950410-14-2024 History of Present illness Narrative* Sincere Hopkins [...] which included preparing to see the patient, vuqo-tt-pkhg patient care, completing clinical documentation, obtaining and/or reviewing separately obtained history, performing a medically appropriate examination, counseling and educating the patient/family/caregiver, and care coordination (not separately reported). Sincere Hopkins MD Associate Staff Physician [facility] Department of Orthopedic Surgery documented in this encounterHighland District Hospital10-14-2024 NoteHNO ID: [id number] Author: SINCERE HOPKINS MD Service: ? Author [...] which included preparing to see the patient, tqar-il-vvsu patient care, completing clinical documentation, obtaining and/or reviewing separately obtained history, performing a medically appropriate examination, counseling and educating the patient/family/caregiver, and care coordination (not separately reported). Sincere Hopkins MD Associate Staff Physician [facility] History of Present illness Narrative* [...] PATIENT PRESENTS WITH AN IMPLANTABLE OR ATTACHED STEEL FITTER: No RADIOLOGY DEPARTMENT: General X-ray: Exam(s) Completed: Pelvis X-Ray: Pelvis with Hip Right and Wt.Bearing PERIPHERAL IV DATA: Not applicable SIGNED BY: Jonah Jennings July 13, 2024 10:29 AM documented in this encounterHighland District Hospital10-14-2024 NoteHNO ID: [id number] Author: OLIMPIA LEI Tech Service: ? Author Type: Internal Combustion Engine Subassembler Type: Progress Notes Filed: 07/13/2024 10:30 Note [...] PATIENT PRESENTS WITH AN IMPLANTABLE OR ATTACHED STEEL FITTER: No RADIOLOGY DEPARTMENT: General X-ray: Exam(s) Completed: Pelvis X-Ray: Pelvis with Hip Right and Wt. Bearing PERIPHERAL IV DATA: Not applicable SIGNED BY: Jonah Jennings July 13, 2024 10:29 [facility] [id number] Nurse Note* Ava Peterson LPN - 07/06/2024 12:32 PM EDT EVENT MONITOR DISPOSABLE PATCH INSTRUCTIONS Patient Name: Tania Romero [facility] Number: [id number] Skin prepped and cleansed with alcohol Patch secured to prepped area Monitor Activated Serial #: [id number] Patient Instructed: Prescribed order timeframe Bathing guidelines Usage of event button and diary documentation Return of monitor at the end of prescribed order Call with problems [phone] or [phone] ext. [phone] Patient expresses a good understanding of instructions Ava Peterson LPN [facility]10-07-2024 Nurse Note* Ava Peterson LPN - 07/06/2024 12:32 PM EDT EVENT MONITOR DISPOSABLE PATCH INSTRUCTIONS [id number] Skin prepped and cleansed with alcohol Patch secured to prepped area Monitor Activated Serial #: [id number] Patient Instructed: Prescribed order timeframe Bathing guidelines Usage of event button and diary documentation Return of monitor at the end of prescribed order Call with problems [phone] or [phone] ext. [phone] Patient expresses a good understanding of instructions Ava Peterson LPN documented in this encounterHighland District Hospital10-07-2024 History of Present illness Narrative* Luis Manuel Hernandez, FORESTRY PILOT.RN CALL CENTER - 07/06/2024 10:20 AM EDT SUBJECTIVE: Depression [...] get a fitness tracker. Currently following with [facility]: only for pre-operative clearance 2020, [...] MS flare symptoms. Neurologist: Previously followed at [facility], Dr Andrea Dobbins. No current neurologist [...] Abs Lymph 1.00 - 4.00 k/uL 1.00 Victoria% % 9.3 Abs Victoria <0.87 k/uL 0.82 Eosin% % 3.6 Abs [...] stress test. Schedule appointment with cardiology, prefers Hernandez. ER for any severe concerning symptoms. For [...] Level: 4 - Moderate documented in this encounterHighland District Hospital10-07-2024 NoteHNO ID: [id number] Author: LUIS MANUEL HERNANDEZ APRN.CNS Service: ? [...] hydration and increase sodium intake. Seen by [facility] for preoperative evaluation 2020, stress [...] get a fitness tracker. Currently following with [facility]: only for pre-operative clearance 2020, [...] MS flare symptoms. Neurologist: Previously followed at [facility], Dr Andrea Dobbins. No current neurologist [...] left side. Heart sounds (more content not included)...[facility]10-07-2024 NoteHNO ID: [id number] Author: SHAHZAD SINGLETON MD Service: ? Author [...] Jul 2024 at 6:[address] (KR).[facility]10-03-2024 Telephone encounter Note* Telephone Encounter - Bg Chavarria MD - 07/02/2024 10:01 PM EDT See MyChart reply [facility]10-03-2024 Miscellaneous Notes* Telephone Encounter - Bg Chavarria MD - 07/02/2024 10:01 PM EDT See MyChart reply documented in this encounterHighland District Hospital08-19-2024 Instructions* Patient Instructions* Bg Chavarria MD [...] back sooner if needed. documented in this encounterHighland District Hospital08-19-2024 NoteHNO ID: [id number] Author: BG CHAVARRIA MD Service: ? Author Type: Physician Type: Progress Notes Filed: 05/18/2024 10:46 Note Text: This note was created using [employer]. Subjective Tania Romero is a 83 year [...] Head: Normocephalic. Eyes: Conju (more content not included)...[facility]08-19-2024 History of Present illness Narrative* Bg Chavarria MD - 05/18/2024 10:10 AM EDT This note was created using DataCore Softwareter. Subjective Tania Romero is a 83 year [...] the date of the service which included czfq-rz-aybb patient care, completing clinical documentation, obtaining and/or reviewing separately obtained history, performing a medically appropriate examination, and counseling and educating the patient/family/caregiver. Bg Chavarria MD documented in this encounterHighland District Hospital08-12-2024 Telephone encounter Note * Telephone Encounter - Ava Peterson LPN - [...] an appointment next Saturday with Dr. Chavarria. [facility]08-12-2024 Miscellaneous Notes* Telephone Encounter - Ava [...] Saturday with Dr. Chavarria. documented in this encounterHighland District Hospital08-08-2024 NoteHNO ID: [id number] Author: LORENA JACOBSEN MD Service: ? Author [...] ROM No pain with hip [facility] Prepatellar bursal swelling, L knee only No [...] which included preparing to see the patient, ivlr-cy-ddjn patient care, completing clinical documentation, obtaining and/or reviewing separately obtained history, performing a medically appropriate examination, counseling and educating the patient/family/caregiver, and care coordination (not separately reported). Lorena Jacobsen MD Orthopaedic SurgeryBarberton Citizens Hospital08-08-2024 History of Present illness Narrative* Lorena [...] ROM No pain with hip ROM Neg [facility] Prepatellar bursal swelling, L knee [...] which included preparing to see the patient, vlfx-dl-hkvd patient care, completing clinical documentation, obtaining and/or reviewing separately obtained history, performing a medically appropriate examination, counseling and educating the patient/family/caregiver, and care coordination (not separately reported). Lorena Jacobsen MD Orthopaedic Surgery documented in this encounterHighland District Hospital08-08-2024 History of Present illness Narrative* Zuri [...] PATIENT PRESENTS WITH AN IMPLANTABLE OR ATTACHED STEEL FITTER: No RADIOLOGY DEPARTMENT: General X-ray: Exam(s) Completed: Pelvis X-Ray: Pelvis with Hip Left and Wt. Bearing PERIPHERAL IV DATA: Not applicable SIGNED BY: Jonah Henderson May 07, 2024 1:35 PM documented in this encounterHighland District Hospital08-08-2024 NoteHNO ID: [id number] Author: ZURI RED Tech Service: Radiology Author Type: Internal Combustion Engine Subassembler Type: Progress Notes Filed: 05/07/2024 13:36 Note [...] PATIENT PRESENTS WITH AN IMPLANTABLE OR ATTACHED STEEL FITTER: No RADIOLOGY DEPARTMENT: General X-ray: Exam(s) Completed: Pelvis X-Ray: Pelvis with Hip Left and Wt. Bearing PERIPHERAL IV DATA: Not applicable SIGNED BY: Jonah Henderson May 07, 2024 1:35 PMHighland District [id number] Telephone encounter Note* Telephone Encounter - Bg Chavarria MD - 05/02/2024 6:29 PM EDT See MyChart reply [facility]08-03-2024 Miscellaneous Notes* Telephone Encounter - Bg Chavarria MD - 05/02/2024 6:29 PM EDT See MyChart reply * Telephone Encounter - Bg Chavarria MD - 04/27/2024 11:10 PM EDT See MyChart reply documented in this encounterHighland District Hospital08-02-2024 History of Present illness Narrative* Joe Jiang PA-C - 05/01/2024 8:17 AM EDT HISTORY OF PRESENT ILLNESS: Tania is a 83 year old female. She is here for follow up of Left knee pain. Patient reports a fall in mid February when she missed a step into her garage and had direct impact on the left knee over thekneecap. She reports that the anterior portion of [...] which included preparing to see the patient, ezcu-wc-kadt patient care, completing clinical documentation, obtaining and/or [...] X-ray taken on 03/31/2024. documented in this encounterHighland District Hospital07-29-2024 Telephone encounter Note * Telephone Encounter - Bg Chavarria MD - 04/27/2024 11:10 PM EDT See MyChart reply [facility]07-02-20[facility] History of Present illness Narrative* Nahed Madrigal RT(R) - 03/31/2024 10:00 AM EDT Radiology [...] PATIENT PRESENTS WITH AN IMPLANTABLE OR ATTACHED STEEL FITTER: No RADIOLOGY DEPARTMENT: General X-ray: Exam(s) Completed: Lower Extremity X- Ray(s): Knee, AP / Lat / Tunne / Merchant Left and Wt. Bearing PERIPHERAL IV DATA: Not applicable SIGNED BY: RT Mariluz(R) March 31, 2024 10:25 AM documented in this encounterHighland District Hospital07-02-2024 History of Present illness Narrative* Bg Chavarria MD - 03/31/2024 9:18 AM EDT Images from the original note were not included. This note was created using Data[employer] Softwareter. Subjective Tania Romero is a 83 year [...] at a republican after a couple drinks. [place] like was going to pass out but [...] indicated. Bg Chavarria MD documented in this encounterHighland District Hospital07-01-2024 Telephone encounter Note * Telephone Encounter - Kimberly Garcia LPN - 03/30/2024 5:52 PM EDT Patient scheduled for OV on 03/31/24 with PCP to assess patient post fall. Kimberly Garcia LPN [facility]07-01-2024 Miscellaneous Notes* Telephone Encounter - Kimberly Garcia LPN - 03/30/2024 5:52 PM EDT Patient scheduled for OV on 03/31/24 with PCP to assess patient post fall. Kimberly Garcia LPN documented in this encounterHighland District Hospital06-25-2024 History of Present illness Narrative* Linda Silva APRN.UNDERWEAR HEMMER - 03/24/2024 2:54 PM EDT SUBJECTIVE Tania Romero is a 83 [...] Smoker - 06/26/2023 Si (Sacroiliac) Joint Inflammation ([facility]) - 06/24/2023 Trochanteric Bursitis of Right Hip - 02/08/2023 Vitamin D Deficiency - 03/04/2022 Elevated Ldl Cholesterol Level - 03/04/2022 Colon Cancer Screening - 03/04/2022 Type 2 Diabetes Mellitus, Without Long-Term Current Use of Insulin ([facility]) - 01/24/2021 Gerd (Gastroesophageal Reflux Disease) - 01/24/2021 Abnormal Ekg - 01/24/2021 Primary Osteoarthritis of Both Hips - 06/07/2020 Chronic Midline Low Back Pain Without Sciatica - 04/29/2019 Comment: Doing better with exercises; had PT Osteopenia Abnormality of Gait - 06/21/2016 Multiple Sclerosis ([facility]) - 05/31/2016 Low Vitamin B12 Level [...] to improve, for Keep next scheduled appointment.. iLnda Silva APRN-SEEMA documented in this encounterHighland District Hospital06-14-2024 Telephone encounter Note * Telephone Encounter - Saulo Omar, [facility] - 03/13/2024 12:00 PM EDT Pharmacist Refill [...] in this department: 01/30/2024 Luis Manuel Hernandez APRN.CNS Next appointment in this department: 03/17/2024 Bg [...] in this encounter: 0 Omar Vernon RPh [facility]06-14-2024 Miscellaneous Notes* Telephone Encounter - Omar Vernon RPh - 03/13/2024 12:00 PM EDT Pharmacist [...] in this department: 01/30/2024 Luis Manuel Hernandez APRN.RN CALL CENTER Next appointment in this department: 03/17/2024 Bg [...] 0 Omar Vernon RPh documented in this encounterHighland District Hospital06-14-2024 Telephone encounter Note * Telephone Encounter [...] in this encounter: 0 Bernadine Cardoso RPh [facility]06-14-2024 Miscellaneous Notes* Telephone Encounter - Bernadine [...] 0 Bernadine Cardoso RPh documented in this encounterHighland District Hospital05-02-2024 History of Present illness Narrative* Luis Manuel Hernandez APRN.RN CALL CENTER - 01/30/2024 1:00 PM EDT Telemedicine Evaluation for COVID-19 Infection MyChart Zoom Video Visit was used for evaluation of this patient. I have communicated my name and active licensure. The patient's identity and physical location wereverified at the time of this visit. Either the patient or their legal union contract representative has been informed of the risks and benefits of -- and alternatives to -- treatment through a remote evaluation andconsents to proceed with the evaluation remotely. SUBJECTIVE Tania Romero is a 83 year old female who presents with 2 days of symptoms that are worsening. [facility] recently. Scratchy throat at first now with [...] risk of HIV-1 resistance development. Luis Manuel Hernandez, FORESTRY PILOTCASSANDRA January 30, 2024 1:08 PM 20 min in visit documented in this encounterHighland District Hospital05-02-2024 Instructions* Patient Instructions* Luis Manuel Hernandez [...] you with PAXLOVID for the treatment of tknu-kt-dccoygci coronavirus disease (COVID-19) caused by the SARS-CoV-2 [...] to makePAXLOVID available for the treatment of hpjf-hr-eynvulgt COVID-19 in adults and children 12 years [...] virus. COVID-19 illnesses have ranged from very drpg-sq-jaollc, including illness resulting in . While information [...] available under EUA for the treatment of tvcs-ym-qhcdxnrz COVID-19 in adults and children 12 years [...] of using PAXLOVID to treat children with pzyv-bf-uglatbqg COVID-19. What is the most important information [...] o ranolazine o rifampin o rifapentine o Murtaza s Wort (hypericum perforatum) o sildenafil (Revatio [...] the medicines you take, including prescription and ylci-kfd-rkpazuv medicines, vitamins, and herbal supplements. Your healthcare [...] morning or evening, depending on when you hop picker your prescription, or as your healthcare [...] PAXLOVID is FDA-approved for the treatment of wsmt-ds-onqdvdjb COVID-19 in certain adults; however,there are not sufficient quantities of the approved presentations (i.e., dose packs) of PAXLOVID atthis time. This EUA continues to authorize the emergency use of PAXLOVID for the approved patient population to ensure continued access in order to meet the public health need. VEKLURY (remdesivir) is FDA-approved for the treatment of hksi-hv-nqypgyrh COVID-19 in certain adults and children. Talk with your healthcare provider to see if VEKLURY is appropriate for you. For information on the emergency use of other medicines that are authorized by FDA to treat people with COVID-19, please go to https://www.fda.gov/wifmjqooy-oipfrcpxsoid-bny-response/cvr-mslqx-vbpcnqv dsi-zvd-cnxonb-framework/woqqrbvnm-uiq-mcbplzbpgznzg. Your healthcare provider may talk with you [...] to FDA MedWatch at www.fda.gov/medwatch or call 2-792-TOC-9568 or you can report side effects to [employer]. at the contact information provided below. How [...] bottom of blister pack at this website: https://www.[employer]/ or talk with your healthcare provider. Information onthe authorized shelf-life extensions for PAXLOVID may also be found at https://www.fda.gov/emergency -ajxmbkbtadss-wpe-jbrkewyj/ede-ffbmf-byugievtzw-mmk-fdbxkm-vylkhdxyo/expiration- dating-extension. How can I learn more about COVID-19? Ask your healthcare provider. Visit https://www.cdc.gov/COVID19. Contact your local or state public health department. What is an Emergency Use Authorization (EUA)? The [place] FDA has made PAXLOVID available under an emergency access mechanism called an Emergency Use Authorization (EUA). The EUA is supported by a [place] of Health and Human Services (HHS) declaration [...] call the telephone number provided below. Website: [employer] Telephone number: (6-412-P35-PACK) Distributed by [employer] [place] [address] [id number] Revised: 01/2023 documented in this encounterHighland District Hospital05-01-2024 Telephone encounter Note * Telephone Encounter - Kimmy Fox LPN - 01/29/2024 4:48 PM EDT PATIENT NOTIFIED OF SAME. Patient scheduled for a virtual visit 01/30/2024 [facility]05-01-[facility] Miscellaneous Notes* Telephone Encounter - Kimmy Fox LPN - 01/29/2024 4:48 PM EDT PATIENT NOTIFIED OF SAME. Patient scheduled for a virtual visit 01/30/2024 * Telephone Encounter - Linda Silva APRN.UNDERWEAR HEMMER - 01/29/2024 4:45 PM EDT I would [...] this time. Please advise. documented in this encounterHighland District Hospital05-01-2024 Telephone encounter Note * Telephone Encounter - Linda Silva APRN.SEEMA - 01/29/2024 4:45 PM EDT I would recommend symptom management with OTCs, given her age she could consider taking Paxlovid also. She would need to do a virtual appointment to discuss this. [facility]-01-[facility] Telephone encounter Note* Telephone Encounter - Le Osuna LPN - 01/29/2024 4:41 PM EDT Patient calling, states that she took an at home covid test and it is positive. She started yesterday with a sore throat, runny nose, and slight cough yesterday. Patient is asking if anything would be recommended for her to do at this time. Please advise. [facility]03-20-2024 Miscellaneous Notes* Telephone Encounter - Diya Julio, [facility] - 12/18/2023 4:52 PM EDT Pharmacist Refill [...] 0 Diya Julio RPh documented in this encounterHighland District Hospital02-19-2024 History of Present illness Narrative* Bg Chavarria MD - 11/18/2023 10:19 AM EST This note was created using Trinity Biosystemsriter. Subjective Tania Romero is a 83 year [...] is great.Does not need to see a business quality assurance analyst to improve her glycemic control. Does need to get enough calories to prevent more weight loss. Taking water color class since nto able to do things like hike anymore. Still knitting. She will follow up with ortho as needed for pain issues. Bg Chavarria MD documented in this encounterHighland District Hospital02-19-2024 Miscellaneous Notes* Telephone Encounter - Angeline Grace MA - 11/18/2023 9:53 AM EST Pt in office today. Angeline Grace MA documented in this encounterHighland District Hospital01-17-2024 History of Present illness Narrative* Naa [...] BY: RT Sammie(Cody) October 16, 2023 3:42 PM documented in this encounterHighland District Hospital01-17-2024 NoteHNO ID: [id number] Author: NAA GARZA RT(R) Service: Radiology Author [...] BY: RT Sammie(Cody) October 16, 2023 3:42 PMHighland District [id number] History of Present illness Narrative* Fabian Haq, SALES CORRESPONDENCE CLERK - 09/19/2023 12:29 PM EST Episode Visit [...] 1155 Fabian Haq PTA documented in this encounterHighland District Hospital12-12-2023 History of Present illness Narrative* Yana [...] 1056 Session Stop Time : 1149 Yana Almaraz, PT documented in this encounterHighland District Hospital11-20-2023 History of Present illness Narrative* Melita [...] created on 07/23/23 through 09/22/23. Updated 08/19/23. Love in home exercise program. (Met) Patient will [...] Patient to be seen for Therapeutic exercise (49604), Neuromuscular re-education (52965), Manual therapy (64622), Therapeutic activities (81370), Self-senior care management (35849), Gait Training (36486) PLAN FOR NEXT VISIT: Progressive hip/LE strengthening [...] Melita Castañeda PT, DPT documented in this encounterHighland District Hospital11-16-2023 History of Present illness Narrative* Melita Castañeda PT, DPT - 2023 10:44 AM EST Program_ID:[id number] Access Code: [email or web address] URL: [email or web address] Date: 2023 Prepared By: Melita Castañeda Program [...] Melita Castañeda PT, DPT documented in this encounterHighland District Hospital11-13-2023 History of Present illness Narrative* Melita Castañeda PT DPT - 08/12/2023 1:19 PM EST Episode [...] Stop Time : 1416 Melita Castañeda PT DPT documented in this encounterHighland District Hospital11-08-2023 History of Present illness Narrative* Sincere [...] weeks Sincere Hopkins MD documented in this encounterHighland District Hospital10-16-2023 Instructions* Patient Instructions* Luis Manuel Hernandez APRN.RN CALL CENTER - 07/15/2023 11:01 AM EDT Try Miralax once daily or docusate 1 or 2 tablets daily as needed for constipation Continue with iron as ordered for at least 14 days. Try to get protein at every meal. Check CBC in about 4 weeks documented in this encounterHighland District Hospital10-16-2023 History of Present illness Narrative* Luis Manuel Hernandez APRN.RN CALL CENTER - 07/15/2023 11:00 AM EDT SUBJECTIVE: Hepatitis [...] MS flare symptoms. Neurologist: Previously followed at [facility], Dr Andrea Dobbins. DIABETES MELLITUS: Without [...] Abs Lymph 1.00 - 4.00 k/uL 1.00 Victoria% % 9.3 Abs Victoria <0.87 k/uL 0.82 Eosin% % 3.6 Abs [...] immunization - ICD9: V03.89, ICD10: Z23 - Last 2 Left-[employer] COVID-19 VACCINE (2022- SEASON) AGE 12+ YR [...] Level: 4 - Moderate documented in this encounterHighland [facility] of Present [facility] Narrative* Olimpia [...] 12, 2023 11:14 AM documented in this encounterHigh[facility] History of Past illness Narrative* Problem Noted Date Diagnosed Date Resolved Date Aftercare 06/30/2023 07/08/2023 Osteonecrosis of right hip 06/27/2023 0 06/28/2023 Primary osteoarthritis of left hip 02/03/2021 Overview: Left--Dr. Vasquez (worse from 2011 to 2012) 12/16/2018--Left--near bone on bone apposition; Right--minimal degenerative change with eburnation of the acetabular rim documented as of this encounter (statuses as of 07/15/2023) [facility] of Past illness Narrative* Problem Noted Date Diagnosed Date Resolved Date Aftercare 06/30/2023 07/08/2023 Osteonecrosis of right hip 06/27/2023 0 06/28/2023 Primary osteoarthritis of left hip 02/03/2021 Overview: Left--Dr. Vasquez (worse from 2011 to 2012) 12/16/2018--Left--near bone on bone apposition; Right--minimal degenerative change with eburnation of the acetabular rim documented as of this encounter (statuses as of 08/08/2023) [facility] of Past illness Narrative* Problem Noted Date Diagnosed Date Resolved Date Aftercare 06/30/2023 07/08/2023 Osteonecrosis of right hip 06/27/2023 0 06/28/2023 Primary osteoarthritis of left hip 02/03/2021 Overview: Left--Dr. Vasquez (worse from 2011 to 2012) 12/16/2018--Left--near bone on bone apposition; Right--minimal degenerative change with eburnation of the acetabular rim documented as of this encounter (statuses as of 08/13/2023) [facility] of Past [facility] Narrative* Problem Noted Date Diagnosed Date Resolved Date Aftercare 06/30/2023 07/08/2023 Osteonecrosis of right hip 06/27/2023 0 06/28/2023 Primary osteoarthritis of left hip 02/03/2021 Overview: Left--Dr. Vasquez (worse from 2011 to 2012) 12/16/2018--Left--near bone on bone apposition; Right--minimal degenerative change with eburnation of the acetabular rim documented as of this encounter (statuses as of 2023) [facility] of Past illness Narrative* Problem Noted Date Diagnosed Date Resolved Date Aftercare 06/30/2023 07/08/2023 Osteonecrosis of right hip 06/27/2023 0 06/28/2023 Primary osteoarthritis of left hip 02/03/2021 Overview: Left--Dr. Vasquez (worse from 2011 to 2012) 12/16/2018--Left--near bone on bone apposition; Right--minimal degenerative change with eburnation of the acetabular rim documented as of this encounter (statuses as of 08/20/2023) [facility] of Past illness Narrative* Problem Noted Date Diagnosed Date Resolved Date Aftercare 06/30/2023 07/08/2023 Osteonecrosis of right hip 06/27/2023 0 06/28/2023 Primary osteoarthritis of left hip 02/03/2021 Overview: Left--Dr. Vasquez (worse from 2011 to 2012) 12/16/2018--Left--near bone on bone apposition; Right--minimal degenerative change with eburnation of the acetabular rim documented as of this encounter (statuses as of 09/10/2023) [facility] of Past [facility] Narrative* Problem Noted Date Diagnosed Date Resolved Date Aftercare 06/30/2023 07/08/2023 Osteonecrosis of right hip 06/27/2023 0 06/28/2023 Primary osteoarthritis of left hip 02/03/2021 Overview: Left--Dr. Vasquez (worse from 2011 to 2012) 12/16/2018--Left--near bone on bone apposition; Right--minimal degenerative change with eburnation of the acetabular rim documented as of this encounter (statuses as of 09/20/2023) [facility] of Past illness Narrative* Problem Noted Date Diagnosed Date Resolved Date Aftercare 06/30/2023 07/08/2023 Osteonecrosis of right hip 06/27/2023 0 06/28/2023 Primary osteoarthritis of left hip 02/03/2021 Overview: Left--Dr. Vasquez (worse from 2011 to 2012) 12/16/2018--Left--near bone on bone apposition; Right--minimal degenerative change with eburnation of the acetabular rim documented as of this encounter (statuses as of 11/18/2023) [facility] Narrative* Problem [...] of this encounter (statuses as of 11/19/2023) [facility] Narrative* Problem [...] of this encounter (statuses as of 12/20/2023) [facility] Miscellaneous Notes* Telephone Encounter - Geoffrey [...] assistance with an exercise program)? No. d. [facility] will be providing your [...] concerns in the meantime, our # is [phone], option 5 Thank you for your time and have a great day. LEANA Marcus documented in this encounterHighland [facility] Hospital09-28-2023 History of Past illness Narrative* Problem Noted Date Diagnosed Date Resolved Date Osteonecrosis of right hip 06/27/2023 0 06/28/2023 Primary osteoarthritis of left hip 02/03/2021 Overview: Left--Dr. Vasquez (worse from 2011 to 2012) 12/16/2018--Left--near bone on bone apposition; Right--minimal degenerative change with eburnation of the acetabular rim documented as of this encounter (statuses as of 06/29/2023) [facility] Instructions* Patient Instructions* Yarelis Rodarte APRN.CNP [...] breath, inability to swallow. documented in this encounterHighland [facility] Hospital09-21-2023 History of Present illness Narrative* Yarelis Rodarte APRN.CNP - 06/20/2023 12:19 PM EDT Subjective The history is provided by the patient. No speech language assistant was used. HPI Tania Romero is a 82 year [...] have confirmed and edited as necessary, the [facility] Review of Systems Constitutional: Negative for [...] in 12-24 hours with results, available on mychart Will start prevacid back up until after [...] evaluation. Yarelis Rodarte APRN.SEEMA documented in this encounterHighland [facility] Hospital09-12-2023 Miscellaneous Notes* Telephone Encounter - Joe Jiang PA-C - 06/11/2023 8:45 AM EDT Refill has been sent to pharmacy on file. Joe Jiang PA-C documented in this encounterHigh[facility] Hospital09-07-2023 Miscellaneous Notes* Telephone Encounter - Reji Christensen PSS - 06/06/2023 3:29 PM EDT TOTAL JOINT COMPLETE CARE PROGRAM PRE-OPERATIVE TEACHING Service Date: 06/06/2023 Service Time: 3:29 PM Date of : 1940 Gender: female Date of Surgery: 06/27/23 Procedure: Right Total Hip Replacement (Anterior) Complete Care Program was discussed with the patient: Heavy Equipment Rental Associate Identification: Patient identified a healthcare analyst to help when discharged to home: Home [...] Binder: Yes Patient plans discharge home with [facility]. SIGNATURE: LEANA Davidson PATIENT NAME: Tania Romero DATE: June 06, 2023 TIME: 3:29 PM documented in this encounterHighland [facility] Hospital09-06-2023 Miscellaneous Notes* Telephone Encounter - Joe Jiang PA-C - 06/05/2023 1:59 PM EDT This patient will need to be contacted for meet and greet appointment with Dr.Nicholas Collin Hokpins MD on 06/21 or 06/24. Please keep on list of patients to contact. 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 documented in this encounterHighland [facility] Hospital08-30-2023 History of Present illness Narrative* Joe Jiang PA-C - 05/29/2023 1:24 PM EDT Tramadol sent over for pre-op pain control. Terrible right hip osteonecrosis. Future MERLE patient. Joe Jiang PA-C documented in this encounterHighland [facility] Hospital08-22-2023 Miscellaneous Notes* Telephone Encounter - Olimpia Maradiaga RN - 05/21/2023 3:05 PM EDT Addressed in Brand[employer] IO message from today, 05/21/23. * Telephone Encounter - Olimpia Maradiaga RN - 05/21/2023 8:09 AM EDT Patient calling RN ROSA was , 05/16 where she was told she would get a call Saturday about setting up surgery. She is asking for an update about scheduling surgery. Ph. [phone] documented in this encounterHighland [facility] Hospital08-22-2023 Miscellaneous Notes* Telephone Encounter - Fredy Carrasco APRN.CNP - 05/21/2023 12:42 PM EDT I called and spoke with Tania. She was offered August 05 which is the next soonest available. All questions answered. Fredy Carrasco APRN.CNP May 21, 2023 12:54 PM documented in this encounterHighland [facility] Hospital08-17-2023 History of Present illness Narrative* Fredy [...] Carrasco APRN.CNP Orthopaedic Surgery documented in this encounterHighland [facility] Hospital08-17-2023 Miscellaneous Notes* Telephone Encounter - SumanthDiya rodriguez [facility] - 05/16/2023 10:56 AM EDT Pharmacist Refill [...] 0 Diya Julio RPh documented in this encounterHighland District Hospital08-08-2023 Miscellaneous Notes* Telephone Encounter - Olimpia Maradiaga RN - 05/07/2023 4:23 PM EDT Pt called back and requested that the prescription be faxed to the [facility] in [place]. Faxed and received confirmation it was sent. * Telephone Encounter - Olimpia Maradiaga RN - 05/07/2023 2:57 PM EDT Pt requested that boni zazueta be emailed to her so she [...] Oscar Spoke with patient. Stated she would hop picker the order for a gel cushion at her appointment. She is also requesting a handicap placard. * Telephone Encounter - Olimpia Maradiaga RN - 05/02/2023 2:01 PM EDT Pt calling RN andrews. Ph. [phone] States she is still having a lot [...] of all education provided. documented in this encounterHighland [facility] Hospital08-07-2023 Miscellaneous Notes* Telephone Encounter - Barbara [...] forward this to orthopaedics. documented in this encounterHighland [facility] Hospital08-07-2023 Miscellaneous Notes* Telephone Encounter - Olimpia [...] with Oscar on 05/16. documented in this encounterHighland [facility] Hospital08-04-2023 History of Present illness Narrative* Linda iSlva APRN.SEEMA - 05/03/2023 9:52 AM EDT SUBJECTIVE Tania [...] Mellitus, Without Long-Term Current Use of Insulin ([facility]) - 01/24/2021 Gerd (Gastroesophageal Reflux Disease) - 01/24/2021 Abnormal Ekg - 01/24/2021 Primary Osteoarthritis of Both Hips - 06/07/2020 Chronic Midline Low Back Pain Without Sciatica - 04/29/2019 Comment: Doing better with exercises; had PT Osteopenia Abnormality of Gait - 06/21/2016 Multiple Sclerosis ([facility]) - 05/31/2016 Elevated Fasting Glucose - [...] suspiciousactivity was identified. 05/03/2023 by Linda Silva APRN.UNDERWEAR HEMMER Portions of this note have been entered [...] appointment.. Linda Silva APRN-SEEMA documented in this encounterHighland District Hospital08-03-2023 Miscellaneous Notes* Telephone Encounter - Tatianna Reyes RN - 05/02/2023 2:24 PM EDT Patient calling to request stronger medication for right hip pain. She says Meloxicam and Tylenol are not working for her. Asking for Tramadol. Advised appointment and scheduled with Linda Silva BOOKKEEPER on 05/03. Tatianna Reyes RN documented in this encounterHighland [facility] Hospital08-02-2023 Miscellaneous Notes* Telephone Encounter - Gregg [...] - 05/01/2023 11:23 AM EDT Patient calling ALEX sparrow. Ph. [phone] Has upcoming appointment with Oscar on 05/16. States she is experiencing a lot of pain. Tylenol and meloxicam not working. Having a hard time ambulating. Asking for advise on what to do until appointment. documented in this encounterHighland [facility] Hospital07-27-2023 Miscellaneous Notes* Telephone Encounter - Maxine [...] advise, Maricel Darling RN documented in this encounterHighland District Hospital07-27-2023 Miscellaneous Notes* Telephone Encounter - Fredy [...] talk to Dr Jacobsen. documented in this encounterHighland District Hospital07-24-2023 History of Present illness Narrative* Zhen [...] 908 Zhen Powell PT documented in this encounterHighland District Hospital07-10-2023 History of Present illness Narrative* Zhen [...] in 8 weeks or less - MET Love in home exercise program. - Met so [...] Patient to be seen for Therapeutic exercise (34812), Neuromuscular re-education (06701), Manual therapy (92279), Self-senior care management (49539), Patient/Family/Caregiver Education PLAN FOR NEXT VISIT: R [...] Slower yovana and slow to mobilize with kkf-kj-dvzyh transfer TREATMENT: Therapeutic Exercise: 1: All objective [...] 41 Zhen Powell PT documented in this encounterHighland [facility] Hospital07-03-2023 History of Present illness Narrative* Zhen [...] 40 Zhen Powell PT documented in this encounterHighland [facility] Hospital06-26-2023 History of Present illness Narrative* Zhen [...] 41 Zhen Powell PT documented in this encounterHighland District Hospital06-21-2023 Surgical operation note* Brief Op Note - Radha Nation APRN.CNP - 03/20/2023 11:36 AM EDT BRIEF OP NOTE LOG ID: [id number] Surgery/Procedure Date: 03/20/2023 Surgeon(s)/Proceduralist(s) and Pilot Plant Technician(s): Radha Nation APRN.CNP Procedure(s): Imaging guided right [...] 11:36 AM PAGER/CONTACT #: documented in this encounterHighland District Hospital06-20-2023 History of Present illness Narrative* Zhen Powell PT - 03/19/2023 7:51 AM EDT Episode [...] 8 Total Treatment Time Minutes (timed/untimed): 41 Zehn Powell PT documented in this encounterHighland District Hospital06-16-2023 History of Present illness Narrative* Bg Chavarria MD - 03/15/2023 11:52 AM EDT This note was created using Data[employer] Software[employer]. Subjective Tania Romero is a 82 year [...] insulin ([facility]) E11.69 HGB A1C COMP METABOLIC PANEL LIPID [...] sleep. Bg Chavarria MD documented in this encounterHighland [facility] Hospital06-02-2023 History of Present illness Narrative* Zhen [...] 41 Zhen Powell PT documented in this encounterHighland District Hospital05-13-2023 NoteIMPRESSION: Progressive right hip osteoarthrosis Breaker Up Machine Operator: HYUN Transcribe Date/Time: Feb 09 2023 6:37P Dictated by : SALVATORE AYERS MD This examination was interpreted and the report reviewed and electronically signed by: SALVATORE AYERS MD on Feb 09 2023 6:38PM [facility] [id number] History of Present illness Narrative* Chaya Schmidt [...] 07, 2023 1:54 PM documented in this encounterHighland District Hospital05-08-2023 History of Present illness Narrative* Luis Manuel Hernandez APRN.RN CALL CENTER - 02/04/2023 2:40 PM EDT SUBJECTIVE: ADVANCE [...] MS flare symptoms. Neurologist: Previously followed at [facility], Dr Andrea Dobbins. Last visit 2015. Brandnew IO message sent on February 01, 2023 regarding [...] convenience with Dr. Jacobsen. Luis Manuel Hernandez APRN.[place] Medical Decision Making: Problems: Moderate: 1+ chronic illnesses with change Data: Unique test(s) ordered: 1 Risk: Moderate: Drug management Medical Decision Making Level: 4 - Moderate documented in this encounterHighland District Hospital03-23-2023 Miscellaneous Notes* Telephone Encounter - Barbara [...] Barbara De Guzman LPN documented in this encounterHighland District Hospital03-21-2023 Miscellaneous Notes* Telephone Encounter - Karla Tom RPh - 12/18/2022 10:58 AM EDT Pharmacist Refill [...] 0 Karla Tom RPh documented in this encounterHighland District Hospital02-21-2023 Miscellaneous Notes* Telephone Encounter - Guillaume Walker RPh - 11/20/2022 10:01 AM EST Pharmacist Refill Authorization Review Name: Tania Roemro Date: 11/20/2022 Time: 10:02 AM Refill authorization [...] 0 Guillaume Walker RPh documented in this encounterHighland District Hospital02-08-2023 Miscellaneous Notes* Telephone Encounter - LEANA Torres - 11/07/2022 11:43 AM EST Patient is requesting lab work before her appointment on Saturday with Dr. Chavarria. Please review and advise. LEANA Torres November 07, 2022 11:44 AM documented in this encounterHighland District Hospital12-16-2022 History of Present illness Narrative* Nahed Madrigal, RT(R) - 09/14/2022 11:40 AM EST Radiology [...] 14, 2022 11:53 AM documented in this encounterHighland District Hospital12-16-2022 History of Present illness Narrative* Linda Silva APRN.UNDERWEAR HEMMER - 09/14/2022 11:24 AM EST Images from [...] weeks ago while out of town for [place]. She initially had some aching but no [...] Mellitus, Without Long-Term Current Use of Insulin ([facility]) - 01/24/2021 Gerd (Gastroesophageal Reflux Disease) [...] appointment.. Linda Silva APRN-SEEMA documented in this encounterHighland District Hospital12-09-2022 History of Present illness Narrative* Celine Leigh RT(Cody) - 09/07/2022 2:50 PM EST Radiology Service [...] IV DATA: Not applicable SIGNED BY: RT Ok(R) September 07, 2022 2:55 PM documented in this encounterHighland District Hospital11-15-2022 Miscellaneous Notes* Telephone Encounter - Linda Silva APRN.CNP - 08/14/2022 7:46 AM EST Please send referral for podiatry, Dr. Koch. Thanks!! documented in this encounterHighland District Hospital10-13-2022 History of Present illness Narrative* Leann Redding - 07/12/2022 11:16 AM EDT Refill Authorization Consent Tania Romero was encountered by telephone to obtain consent for pharmacist managed refill authorization. Patient gives consent to the authorization of prescriptions by a pharmacist. Leann Redding 07/12/2022 documented in this encounterHighland District Hospital09-29-2022 History of Present illness Narrative* Luis Manuel Hernandez APRN.RN CALL CENTER - 06/28/2022 11:00 AM EDT SUBJECTIVE: ADVANCE [...] Continue current treatments unchanged Luis Manuel Hernandez APRN.RN CALL CENTER Medical Decision Making: Problems: Moderate: 2+ stable chronic illnesses Data: Unique test(s) ordered: 3+ Risk: Moderate: Drug management Medical Decision Making Level: 4 - Moderate documented in this encounterHighland District Hospital08-05-2022 Nurse Note* Maxine Phillips RN - 05/04/2022 8:02 AM EDT Pt received in PACU. Pt mildly drowsy, but arouses easily. Denies pain or nausea. Abd soft and non distended. Maxine Phillips RN documented in this encounterHighland District Hospital08-05-2022 History and physical note * Nuha [...] DJD (degenerative joint disease) of hip Left--Dr. Vsaquez (worse from 2011 to 2012) Low vitamin [...] entered by the nurse and reviewed by la Nursing Notes: Janay Bhagat RN 03/05/2022 1:21 [...] patient wishes to proceed. documented in this encounterHighland District Hospital08-01-2022 Miscellaneous Notes* Telephone Encounter - Beata Vila LPN - 04/30/2022 10:11 AM EDT Patient [...] pcp 06/29/22. Please advise. Thank you. Beata Vila LPN documented in this encounterHighland District Hospital06-16-2022 Instructions* Patient Instructions* Angus Silveira MD - 03/15/2022 11:57 AM EDT FACT SHEET FOR PATIENTS, PARENTS, AND CAREGIVERS EMERGENCY USE AUTHORIZATION (EUA) OF PAXLOVID FOR CORONAVIRUS DISEASE 2019 (COVID-19) You are being given this Fact Sheet because your healthcare provider believes it is necessary to provide you with PAXLOVID for the treatment of qckd-gf-ombjqdwj coronavirus disease (COVID-19) caused by the SARS-CoV-2 [...] virus. COVID-19 illnesses have ranged from very augg-xf-vseqhu, including illness resulting in . While information [...] is an investigational medicine used to treat oonw-yy-ihtszfyw COVID-19 in adults and children [12 years [...] of using PAXLOVID to treat people with vzhi-xc-llbutsbe COVID-19. The FDA has authorized the emergency use of PAXLOVID for the treatment of jlgg-wr-znbnhuse COVID-19in adults and children [12 years of [...] the medicines you take, including prescription and qlnv-hkg-ujwjzfp medicines, vitamins, and herbal supplements. Some medicines [...] oral midazolam Apalutamide Carbamazepine, phenobarbital, phenytoin Rifampin [place] s Wort (hypericum perforatum) Taking PAXLOVID with [...] (remdesivir) is FDA-approved for the treatment of phhs-ec-wfdmqeui COVID-19 in certain adults and children. Talk with your doctor to see if Veklury is appropriate for you. Like PAXLOVID, FDA may also allow for the emergency use of other medicines to treat people with COVID-19. Go to https://www.fda.gov/pfzoljfzg-ztsxldnvwhgy-mcgpkpufknt/ird-sqhzm-ixqkxagfwe-and- policy-framework/szupcarso-obo-djdjgqjbgpjhp for information on the emergency use of [...] if I am or ? There is keno manager treating women or mothers with PAXLOVID. For [...] to FDA MedWatch at www.fda.gov/medwatch or call 8-201-IAI9757 or you can reportside effects to [employer]. at the contact information provided below. Website Fax number Telephone number [employer] How should I store PAXLOVID? Store PAXLOVID [...] (EUA). The EUA is supported by a Supervisor/Port Director of Health and Human Service (HHS) declaration that circumstances exist to justify the emergency use of drugs and biological productsduring the COVID-19 pandemic. PAXLOVID for the treatment of hxhx-qf-jrlqepwg COVID-19 in adults and children [12 years [...] telephone number provided below. Website Telephone number www.CPMIV16hfhqPy.com (9-049-W34-WFHG) You can also go to www.[facility] [facility] [employer].[employer] - [employer] of Fees or call for more information. Pfizer Distributed by [employer] [place] [address] LAB-1494-2.1 Revised: 15 December 2021 documented in this encounterHighland [facility] Hospital06-16-2022 History of Present illness Narrative* Angus Silveira MD - 03/15/2022 11:43 AM EDT Telemedicine Evaluation for COVID-19 Infection MyChart video visit was used for evaluation of this patient. [facility] of patient: [facility] Tania oRmero is a 81 year old female who [...] found. Nirmatrelvir/Ritonavir (Paxlovid) Eligibility and Patient Discussion [facility] Formulary Restriction Criteria: Adult outpatients 18 [...] of transplant or on systemic therapy for odstq-iartso-sntx disease [] CAR T-cell/other cellular therapy recipients [...] 15, 2022 11:54 AM documented in this encounterHighland District Hospital06-16-2022 Miscellaneous Notes* Telephone Encounter - Maricel Darling RN - 03/15/2022 10:08 AM EDT Patient calls and states that she did test positive with PCR test. Patient asking about antiviral. Set up virtual appointment with Dr. Silveira to discuss. Maricel Darling RN * Telephone Encounter - Karla Frederickandre WILEY - 03/14/2022 10:13 AM EDT Patient calling she is traveling in [place]. She did COVGA home test yesterday was positive. Did a PCRtest at [facility] in [facility] yesterday afternoon about 330 pm, could get results tomorrow or Saturday. Patient said her symptoms began Saturday (03/10/2022) with scratchy throat, congestion, cough, sneezing. She is not taking anything for her symptoms. She and are at [place] in [place]. Attached [facility] pharmacy that is close to them. Patient is asking about getting the antiviral medication rx? Her has no symptoms trying to stay away from her. Please advise documented in this encounterHighland District Hospital06-07-2022 Miscellaneous Notes* Letter - Mammography Coordinator - 03/06/2022 1:47 PM EDT March 06, 2022 PID: [id number] Tania Romero [address] [place] [address] Dear Ms. Romero, We are pleased to [...] report will be kept on [facility] as part of your permanent medical record and are available for your continuing care. Thank you for allowing us to help in meeting your health care needs. Sincerely, Dr. Munroe Interpreting Radiologist [facility] (Normal over 40) documented in this encounterHighland District Hospital06-07-2022 History of Present illness Narrative* Lm [...] PERIPHERAL IV DATA: Not applicable SIGNED BY: Gregoria Galvez [employer] March 06, 2022 1:29 PM documented in this encounterHighland District Hospital06-06-2022 History of Present illness Narrative* Nuha Saab MD - 03/05/2022 4:42 PM EDT HISTORY AND PHYSICAL Tania Juradojayme 1940 REFERRING PHYSICIAN: Bg Chavarria MD CHIEF [...] entered by the nurse and reviewed by la Nursing Notes: Janay Bhagat RN 03/05/2022 1:21 [...] 04 (as per her wishes) at the [facility]. Medical Decision Making: Risk: Low: Low risk from testing/treatment Medical Decision Making Level: 2 - Straightforward Nuha Saab MD documented [facility] Instructions* Patient Instructions* Nuha Saab MD [...] If you do not have a responsible school bus driver/mechanic (family member or friend) with you to [...] preparation [facility]. 08/2019 Bowel Preparation Instructions for: Golytely, [...] your exam. 3 08/2019 documented in this encounterHigh[facility]06-[facility]22 Nurse Note* Janay Bhagat RN - [...] 2016 Janay Bhagat RN documented in this encounterHigh[facility]06-03-[facility]22 History and physical note * Anibal [...] 2022 TIME: 1:07 PM documented in this encounterHigh[facility]06-03-2022 Miscellaneous Notes* Operative Report - Anibal [...] was nil.A sterile dressing was applied. Tania Romero was taken to the [facility] for further observation. EBL: nil Start time: 1:09 PM End time: 1:22 PM I was present the entire time and personally performed the procedure. SIGNATURE: Anibal Lake MD DATE: March 02, 2022 TIME: 1:25 PM documented in this encounterHighland [facility]05-31-2022 History of Present illness Narrative* Bg Chavarria MD - 02/27/2022 5:40 PM EDT This note was created using [employer]. Subjective Tania Romero is a 81 year old female. Patient presents with: Follow Up SUBJECTIVE: Tania Romero is a 81 year old year old lady here today for 6 month follow up appointment for review of medical conditions. No JUNIOR SOFTWARE ENGINEER or breast issues noted. PAST MEDICAL HISTORY [...] 80s. Bg Chavarria MD documented in this encounterHigh[facility]05-17-2022 History of Present illness Narrative* Lorena Jacobsen MD - 02/13/2022 2:32 PM EDT Images from the original note were not included. DEPARTMENT OF ORTHOPAEDICS PATIENT INFO: Tania Romero 81 year old REFERRING M.D.: Pavel Lobo [address] [address] HISTORY CHIEF COMPLAINT: left hip HPI: Tania [...] painless arcs of motion Full strength Neg formerly [facility] Leg lengths appear symmetric on exam X-RAYS: [...] Jacobsen MD Orthopaedic Surgery documented in this encounterHigh[facility]05-05-2022 Miscellaneous Notes* Telephone Encounter - Bekah Chamberlain - 02/01/2022 1:53 PM EDT Called patient regarding request. Patient stated she was already contacted by nurse staff to schedule injections. documented in this encounterHigh[facility]04-26-2022 Miscellaneous Notes* Telephone Encounter - Germaine Esparza LPN - 01/23/2022 11:23 AM EDT Spoke with pt and information listed below given. Pt verbalizes understanding. Germaine Esparza LPN * Telephone Encounter - Bg [...] could the provider please send it to [facility]. Patient has been identified by [...] calling: self Call patient at: on cell [phone] (home) [phone] (cell) Was an appointment scheduled: No Closing statement: Linh Chaudhari documented in this encounterHighland [facility] Hospital04-25-2022 Miscellaneous Notes* Telephone Encounter - Omar [...] business days to schedule documented in this encounterHighland [facility] Hospital03-24-2022 Miscellaneous Notes* Telephone Encounter - Bg Chavarria MD - 12/21/2021 12:34 PM EDT See MyChart reply to patient Make her appointment 40 minutes yearly and move next patient after her to later time slot. documented in this encounterHighland [facility] Hospital05-07-2021 History of Past illness Narrative* Problem Noted Date Resolved Date Primary osteoarthritis of left hip 02/03/2021 Overview: Left--Dr. Vasquez (worse from 2011 to 2012) 12/16/2018--Left--near bone on bone apposition; Right--minimal degenerative change with eburnation of the acetabular rim documented as of this encounter (statuses as of 12/26/2021) [facility] of Past illness Narrative* Problem Noted Date Resolved Date Primary osteoarthritis of left hip 02/03/2021 Overview: Left--Dr. Vasquez (worse from 2011 to 2012) 12/16/2018--Left--near bone on bone apposition; Right--minimal degenerative change with eburnation of the acetabular rim documented as of this encounter (statuses as of 01/17/2022) [facility] of Past illness Narrative* Problem Noted Date Resolved Date Primary osteoarthritis of left hip 02/03/2021 Overview: Left--Dr. Vasquez (worse from 2011 to 2012) 12/16/2018--Left--near bone on bone apposition; Right--minimal degenerative change with eburnation of the acetabular rim documented as of this encounter (statuses as of 01/22/2022) [facility] Narrative* Problem Noted Date Resolved Date Primary osteoarthritis of left hip 02/03/2021 Overview: Left--Dr. Vasquez (worse from 2011 to 2012) 12/16/2018--Left--near bone on bone apposition; Right--minimal degenerative change with eburnation of the acetabular rim documented as of this encounter (statuses as of 01/23/2022) [facility] Narrative* Problem Noted Date Resolved Date Primary osteoarthritis of left hip 02/03/2021 Overview: Left--Dr. Vasquez (worse from 2011 to 2012) 12/16/2018--Left--near bone on bone apposition; Right--minimal degenerative change with eburnation of the acetabular rim documented as of this encounter (statuses as of 02/01/2022) [facility] Narrative* Problem Noted Date Resolved Date Primary osteoarthritis of left hip 02/03/2021 Overview: Left--Dr. Vasquez (worse from 2011 to 2012) 12/16/2018--Left--near bone on bone apposition; Right--minimal degenerative change with eburnation of the acetabular rim documented as of this encounter (statuses as of 02/07/2022) [facility] Narrative* Problem Noted Date Resolved Date Primary osteoarthritis of left hip 02/03/2021 Overview: Left--Dr. Vasquez (worse from 2011 to 2012) 12/16/2018--Left--near bone on bone apposition; Right--minimal degenerative change with eburnation of the acetabular rim documented as of this encounter (statuses as of 02/13/2022) [facility] Narrative* Problem Noted Date Resolved Date Primary osteoarthritis of left hip 02/03/2021 Overview: Left--Dr. Vasquez (worse from 2011 to 2012) 12/16/2018--Left--near bone on bone apposition; Right--minimal degenerative change with eburnation of the acetabular rim documented as of this encounter (statuses as of 03/03/2022) [facility] Narrative* Problem Noted Date Resolved Date Primary osteoarthritis of left hip 02/03/2021 Overview: Left--Dr. Vasquez (worse from 2011 to 2012) 12/16/2018--Left--near bone on bone apposition; Right--minimal degenerative change with eburnation of the acetabular rim documented as of this encounter (statuses as of 03/05/2022) [facility] Narrative* Problem Noted Date Resolved Date Primary osteoarthritis of left hip 02/03/2021 Overview: Left--Dr. Vasquez (worse from 2011 to 2012) 12/16/2018--Left--near bone on bone apposition; Right--minimal degenerative change with eburnation of the acetabular rim documented as of this encounter (statuses as of 03/05/2022) [facility] Narrative* Problem Noted Date Resolved Date Primary osteoarthritis of left hip 02/03/2021 Overview: Left--Dr. Vasquez (worse from 2011 to 2012) 12/16/2018--Left--near bone on bone apposition; Right--minimal degenerative change with eburnation of the acetabular rim documented as of this encounter (statuses as of 03/07/2022) [facility] Narrative* Problem Noted Date Resolved Date Primary osteoarthritis of left hip 02/03/2021 Overview: Left--Dr. Vasquez (worse from 2011 to 2012) 12/16/2018--Left--near bone on bone apposition; Right--minimal degenerative change with eburnation of the acetabular rim documented as of this encounter (statuses as of 03/08/2022) [facility] Narrative* Problem Noted Date Resolved Date Primary osteoarthritis of left hip 02/03/2021 Overview: Left--Dr. Vasquez (worse from 2011 to 2012) 12/16/2018--Left--near bone on bone apposition; Right--minimal degenerative change with eburnation of the acetabular rim documented as of this encounter (statuses as of 03/15/2022) [facility] Narrative* Problem Noted Date Resolved Date Primary osteoarthritis of left hip 02/03/2021 Overview: Left--Dr. Vasquez (worse from 2011 to 2012) 12/16/2018--Left--near bone on bone apposition; Right--minimal degenerative change with eburnation of the acetabular rim documented as of this encounter (statuses as of 03/15/2022) [facility] Narrative* Problem Noted Date Resolved Date Primary osteoarthritis of left hip 02/03/2021 Overview: Left--Dr. Vasquez (worse from 2011 to 2012) 12/16/2018--Left--near bone on bone apposition; Right--minimal degenerative change with eburnation of the acetabular rim documented as of this encounter (statuses as of 04/24/2022) [facility] Narrative* Problem Noted Date Resolved Date Primary osteoarthritis of left hip 02/03/2021 Overview: Left--Dr. Vasquez (worse from 2011 to 2012) 12/16/2018--Left--near bone on bone apposition; Right--minimal degenerative change with eburnation of the acetabular rim documented as of this encounter (statuses as of 04/30/2022) [facility] Narrative* Problem Noted Date Resolved Date Primary osteoarthritis of left hip 02/03/2021 Overview: Left--Dr. Vasquez (worse from 2011 to 2012) 12/16/2018--Left--near bone on bone apposition; Right--minimal degenerative change with eburnation of the acetabular rim documented as of this encounter (statuses as of 05/05/2022) [facility] Narrative* Problem Noted Date Resolved Date Primary osteoarthritis of left hip 02/03/2021 Overview: Left--Dr. Vasquez (worse from 2011 to 2012) 12/16/2018--Left--near bone on bone apposition; Right--minimal degenerative change with eburnation of the acetabular rim documented as of this encounter (statuses as of 05/07/2022) [facility] Narrative* Problem Noted Date Resolved Date Primary osteoarthritis of left hip 02/03/2021 Overview: Left--Dr. Vasquez (worse from 2011 to 2012) 12/16/2018--Left--near bone on bone apposition; Right--minimal degenerative change with eburnation of the acetabular rim documented as of this encounter (statuses as of 05/31/2022) [facility] Narrative* Problem Noted Date Resolved Date Primary osteoarthritis of left hip 02/03/2021 Overview: Left--Dr. Vasquez (worse from 2011 to 2012) 12/16/2018--Left--near bone on bone apposition; Right--minimal degenerative change with eburnation of the acetabular rim documented as of this encounter (statuses as of 06/28/2022) [facility] Narrative* Problem Noted Date Resolved Date Primary osteoarthritis of left hip 02/03/2021 Overview: Left--Dr. Vasquez (worse from 2011 to 2012) 12/16/2018--Left--near bone on bone apposition; Right--minimal degenerative change with eburnation of the acetabular rim documented as of this encounter (statuses as of 07/12/2022) [facility]arrative* Problem Noted Date Resolved Date Primary osteoarthritis of left hip 02/03/2021 Overview: Left--Dr. Vasquez (worse from 2011 to 2012) 12/16/2018--Left--near bone on bone apposition; Right--minimal degenerative change with eburnation of the acetabular rim documented as of this encounter (statuses as of 08/14/2022) [facility] Narrative* Problem Noted Date Resolved Date Primary osteoarthritis of left hip 02/03/2021 Overview: Left--Dr. Vasquez (worse from 2011 to 2012) 12/16/2018--Left--near bone on bone apposition; Right--minimal degenerative change with eburnation of the acetabular rim documented as of this encounter (statuses as of 09/14/2022) [facility]ative* Problem Noted Date Resolved Date Primary osteoarthritis of left hip 02/03/2021 Overview: Left--Dr. Vasquez (worse from 2011 to 2012) 12/16/2018--Left--near bone on bone apposition; Right--minimal degenerative change with eburnation of the acetabular rim documented as of this encounter (statuses as of 11/15/2022) [facility]* Problem Noted Date Resolved Date Primary osteoarthritis of left hip 02/03/2021 Overview: Left--Dr. Vasquez (worse from 2011 to 2012) 12/16/2018--Left--near bone on bone apposition; Right--minimal degenerative change with eburnation of the acetabular rim documented as of this encounter (statuses as of 11/20/2022) [facility]* Problem Noted Date Resolved Date Primary osteoarthritis of left hip 02/03/2021 Overview: Left--Dr. Vasquez (worse from 2011 to 2012) 12/16/2018--Left--near bone on bone apposition; Right--minimal degenerative change with eburnation of the acetabular rim documented as of this encounter (statuses as of 12/18/2022) [facility]arrative* Problem Noted Date Resolved Date Primary osteoarthritis of left hip 02/03/2021 Overview: Left--Dr. Vasquez (worse from 2011 to 2012) 12/16/2018--Left--near bone on bone apposition; Right--minimal degenerative change with eburnation of the acetabular rim documented as of this encounter (statuses as of 12/20/2022) [facility]arrative* Problem Noted Date Resolved Date Primary osteoarthritis of left hip 02/03/2021 Overview: Left--Dr. Vasquez (worse from 2011 to 2012) 12/16/2018--Left--near bone on bone apposition; Right--minimal degenerative change with eburnation of the acetabular rim documented as of this encounter (statuses as of 02/04/2023) [facility]* Problem Noted Date Resolved Date Primary osteoarthritis of left hip 02/03/2021 Overview: Left--Dr. Vasquez (worse from 2011 to 2012) 12/16/2018--Left--near bone on bone apposition; Right--minimal degenerative change with eburnation of the acetabular rim documented as of this encounter (statuses as of 02/05/2023) [facility]* Problem Noted Date Resolved Date Primary osteoarthritis of left hip 02/03/2021 Overview: Left--Dr. Vasquez (worse from 2011 to 2012) 12/16/2018--Left--near bone on bone apposition; Right--minimal degenerative change with eburnation of the acetabular rim documented as of this encounter (statuses as of 02/08/2023) [facility]* Problem Noted Date Resolved Date Primary osteoarthritis of left hip 02/03/2021 Overview: Left--Dr. Vasquez (worse from 2011 to 2012) 12/16/2018--Left--near bone on bone apposition; Right--minimal degenerative change with eburnation of the acetabular rim documented as of this encounter (statuses as of 03/01/2023) [facility]* Problem Noted Date Resolved Date Primary osteoarthritis of left hip 02/03/2021 Overview: Left--Dr. Vasquez (worse from 2011 to 2012) 12/16/2018--Left--near bone on bone apposition; Right--minimal degenerative change with eburnation of the acetabular rim documented as of this encounter (statuses as of 03/19/2023) [facility]* Problem Noted Date Resolved Date Primary osteoarthritis of left hip 02/03/2021 Overview: Left--Dr. Vasquez (worse from 2011 to 2012) 12/16/2018--Left--near bone on bone apposition; Right--minimal degenerative change with eburnation of the acetabular rim documented as of this encounter (statuses as of 03/21/2023) [facility]* Problem Noted Date Resolved Date Primary osteoarthritis of left hip 02/03/2021 Overview: Left--Dr. Vasquez (worse from 2011 to 2012) 12/16/2018--Left--near bone on bone apposition; Right--minimal degenerative change with eburnation of the acetabular rim documented as of this encounter (statuses as of 03/25/2023) [facility]* Problem Noted Date Resolved Date Primary osteoarthritis of left hip 02/03/2021 Overview: Left--Dr. Vasquez (worse from 2011 to 2012) 12/16/2018--Left--near bone on bone apposition; Right--minimal degenerative change with eburnation of the acetabular rim documented as of this encounter (statuses as of 04/01/2023) [facility]* Problem Noted Date Diagnosed Date Resolved Date Primary osteoarthritis of left hip 02/03/2021 Overview: Left--Dr. Vasquez (worse from 2011 to 2012) 12/16/2018--Left--near bone on bone apposition; Right--minimal degenerative change with eburnation of the acetabular rim documented as of this encounter (statuses as of 04/08/2023) [facility]* Problem Noted Date Diagnosed Date Resolved Date Primary osteoarthritis of left hip 02/03/2021 Overview: Left--Dr. Vasquez (worse from 2011 to 2012) 12/16/2018--Left--near bone on bone apposition; Right--minimal degenerative change with eburnation of the acetabular rim documented as of this encounter (statuses as of 04/16/2023) [facility]* Problem Noted Date Diagnosed Date Resolved Date Primary osteoarthritis of left hip 02/03/2021 Overview: Left--Dr. Vasquez (worse from 2011 to 2012) 12/16/2018--Left--near bone on bone apposition; Right--minimal degenerative change with eburnation of the acetabular rim documented as of this encounter (statuses as of 04/22/2023) [facility]* Problem Noted Date Diagnosed Date Resolved Date Primary osteoarthritis of left hip 02/03/2021 Overview: Left--Dr. Vasquez (worse from 2011 to 2012) 12/16/2018--Left--near bone on bone apposition; Right--minimal degenerative change with eburnation of the acetabular rim documented as of this encounter (statuses as of 04/25/2023) [facility]* Problem Noted Date Diagnosed Date Resolved Date Primary osteoarthritis of left hip 02/03/2021 Overview: Left--Dr. Vasquez (worse from 2011 to 2012) 12/16/2018--Left--near bone on bone apposition; Right--minimal degenerative change with eburnation of the acetabular rim documented as of this encounter (statuses as of 05/02/2023) [facility]* Problem Noted Date Diagnosed Date Resolved Date Primary osteoarthritis of left hip 02/03/2021 Overview: Left--Dr. Vasquez (worse from 2011 to 2012) 12/16/2018--Left--near bone on bone apposition; Right--minimal degenerative change with eburnation of the acetabular rim documented as of this encounter (statuses as of 05/03/2023) [facility]* Problem Noted Date Diagnosed Date Resolved Date Primary osteoarthritis of left hip 02/03/2021 Overview: Left--Dr. Vasquez (worse from 2011 to 2012) 12/16/2018--Left--near bone on bone apposition; Right--minimal degenerative change with eburnation of the acetabular rim documented as of this encounter (statuses as of 05/03/2023) [facility]* Problem Noted Date Diagnosed Date Resolved Date Primary osteoarthritis of left hip 02/03/2021 Overview: Left--Dr. Vasquez (worse from 2011 to 2012) 12/16/2018--Left--near bone on bone apposition; Right--minimal degenerative change with eburnation of the acetabular rim documented as of this encounter (statuses as of 05/06/2023) [facility]* Problem Noted Date Diagnosed Date Resolved Date Primary osteoarthritis of left hip 02/03/2021 Overview: Left--Dr. Vasquez (worse from 2011 to 2012) 12/16/2018--Left--near bone on bone apposition; Right--minimal degenerative change with eburnation of the acetabular rim documented as of this encounter (statuses as of 05/07/2023) [facility]* Problem Noted Date Diagnosed Date Resolved Date Primary osteoarthritis of left hip 02/03/2021 Overview: Left--Dr. Vasquez (worse from 2011 to 2012) 12/16/2018--Left--near bone on bone apposition; Right--minimal degenerative change with eburnation of the acetabular rim documented as of this encounter (statuses as of 05/08/2023) [facility]* Problem Noted Date Diagnosed Date Resolved Date Primary osteoarthritis of left hip 02/03/2021 Overview: Left--Dr. Vasquez (worse from 2011 to 2012) 12/16/2018--Left--near bone on bone apposition; Right--minimal degenerative change with eburnation of the acetabular rim documented as of this encounter (statuses as of 05/16/2023) [facility]* Problem Noted Date Diagnosed Date Resolved Date Primary osteoarthritis of left hip 02/03/2021 Overview: Left--Dr. Vasquez (worse from 2011 to 2012) 12/16/2018--Left--near bone on bone apposition; Right--minimal degenerative change with eburnation of the acetabular rim documented as of this encounter (statuses as of 05/20/2023) [facility]* Problem Noted Date Diagnosed Date Resolved Date Primary osteoarthritis of left hip 02/03/2021 Overview: Left--Dr. Vasquez (worse from 2011 to 2012) 12/16/2018--Left--near bone on bone apposition; Right--minimal degenerative change with eburnation of the acetabular rim documented as of this encounter (statuses as of 05/21/2023) [facility]* Problem Noted Date Diagnosed Date Resolved Date Primary osteoarthritis of left hip 02/03/2021 Overview: Left--Dr. Vasquez (worse from 2011 to 2012) 12/16/2018--Left--near bone on bone apposition; Right--minimal degenerative change with eburnation of the acetabular rim documented as of this encounter (statuses as of 05/22/2023) [place] [address]-07-2021 History of Past illness Narrative* Problem Noted Date Diagnosed Date Resolved Date Primary osteoarthritis of left hip 02/03/2021 Overview: Left--Dr. Vasquez (worse from 2011 to 2012) 12/16/2018--Left--near bone on bone apposition; Right--minimal degenerative change with eburnation of the acetabular rim documented as of this encounter (statuses as of 05/29/2023) [facility]* Problem Noted Date Diagnosed Date Resolved Date Primary osteoarthritis of left hip 02/03/2021 Overview: Left--Dr. Vasquez (worse from 2011 to 2012) 12/16/2018--Left--near bone on bone apposition; Right--minimal degenerative change with eburnation of the acetabular rim documented as of this encounter (statuses as of 05/29/2023) [facility]ative* Problem Noted Date Diagnosed Date Resolved Date Primary osteoarthritis of left hip 02/03/2021 Overview: Left--Dr. Vasquez (worse from 2011 to 2012) 12/16/2018--Left--near bone on bone apposition; Right--minimal degenerative change with eburnation of the acetabular rim documented as of this encounter (statuses as of 06/05/2023) [facility] History of Past illness Narrative* Problem Noted Date Diagnosed Date Resolved Date Primary osteoarthritis of left hip 02/03/2021 Overview: Left--Dr. Vasquez (worse from 2011 to 2012) 12/16/2018--Left--near bone on bone apposition; Right--minimal degenerative change with eburnation of the acetabular rim documented as of this encounter (statuses as of 06/06/2023) [facility]21 History of Past illness Narrative* Problem Noted Date Diagnosed Date Resolved Date Primary osteoarthritis of left hip 02/03/2021 Overview: Left--Dr. Vasquez (worse from 2011 to 2012) 12/16/2018--Left--near bone on bone apposition; Right--minimal degenerative change with eburnation of the acetabular rim documented as of this encounter (statuses as of 06/06/2023) [facility]21 History of Past illness Narrative* Problem Noted Date Diagnosed Date Resolved Date Primary osteoarthritis of left hip 02/03/2021 Overview: Left--Dr. Vasquez (worse from 2011 to 2012) 12/16/2018--Left--near bone on bone apposition; Right--minimal degenerative change with eburnation of the acetabular rim documented as of this encounter (statuses as of 06/07/2023) [facility] History of Past illness Narrative* Problem Noted Date Diagnosed Date Resolved Date Primary osteoarthritis of left hip 02/03/2021 Overview: Left--Dr. Vasquez (worse from 2011 to 2012) 12/16/2018--Left--near bone on bone apposition; Right--minimal degenerative change with eburnation of the acetabular rim documented as of this encounter (statuses as of 06/11/2023) [facility] History of Past illness Narrative* Problem Noted Date Diagnosed Date Resolved Date Primary osteoarthritis of left hip 02/03/2021 Overview: Left--Dr. Vasquez (worse from 2011 to 2012) 12/16/2018--Left--near bone on bone apposition; Right--minimal degenerative change with eburnation of the acetabular rim documented as of this encounter (statuses as of 06/21/2023) [facility] History of Past illness Narrative* Problem Noted Date Diagnosed Date Resolved Date Primary osteoarthritis of left hip 02/03/2021 Overview: Left--Dr. Vasquez (worse from 2011 to 2012) 12/16/2018--Left--near bone on bone apposition; Right--minimal degenerative change with eburnation of the acetabular rim documented as of this encounter (statuses as of 06/26/2023) [facility] Pain in left hip- Primary Pain in joint, pelvic region and thigh [facility] Diagnosis Chronic midline low back pain without sciatica DDD (degenerative disc disease), lumbar Degeneration of lumbar or lumbosacral intervertebral disc Lumbar spondylosis Lumbosacral spondylosis without myelopathy [facility] [place] [facility] Diagnosis Chronic midline low back pain without sciatica- Primary DDD (degenerative disc disease), lumbar Degeneration of lumbar or lumbosacral intervertebral disc Lumbar spondylosis Lumbosacral spondylosis without myelopathy Scoliosis of lumbar spine, unspecified scoliosis type documented [facility] [place] [facility]* Diagnosis Status post total replacement of [...] unspecified scoliosis type [facility] [place] [facility]* Diagnosis Type 2 diabetes mellitus with other specified complication, without long-term current use of insulin (HCC)- Primary Low vitamin B12 level Other B-complex deficiencies Vitamin D deficiency Unspecified vitamin D deficiency Elevated LDL cholesterol level Pure hypercholesterolemia Breast cancer screening by mammogram Colon cancer screening Special screening for malignant neoplasms, colon documented [facility] this [facility] [place] [facility] Diagnosis Rectal bleeding- Primary Hemorrhage of rectum and anus Colon cancer screening Special screening for malignant neoplasms, colon [facility] [place] [facility]* Diagnosis Breast cancer screening by mammogram [facility] [place] [facility]* Diagnosis COVID-19- Primary [facility] [place] [facility]* Diagnosis Rectal bleeding Hemorrhage of rectum and anus [facility] Diagnosis Status post total replacement of left hip [facility] [place] [facility]* Diagnosis Type 2 diabetes mellitus with other specified complication, without long-term current use of insulin (HCC)- Primary Low vitamin B12 level Other B-complex deficiencies Gastroesophageal reflux disease, unspecified whether esophagitis present Vitamin D deficiency Unspecified vitamin D deficiency Elevated LDL cholesterol level Pure hypercholesterolemia Encounter for immunization Need for other specified prophylactic vaccination against single bacterial disease [facility] Diagnosis Hammer toes of both feet- [facility] Diagnosis Bursitis of other bursa of right hip- Primary Fall, sequela [facility] Diagnosis Low vitamin B12 level Other B-complex deficiencies [facility] Diagnosis Hip pain, left Pain in joint, pelvic region and thigh Cervical neck pain with evidence of disc disease Other and unspecified disc disorder of cervical region [facility] Diagnosis Status post total replacement of left hip [facility] Diagnosis Chronic pain of right hip- Primary S/P total left hip arthroplasty Multiple sclerosis (HCC) Multiple sclerosis [facility] Diagnosis Trochanteric bursitis of right hip- Primary Enthesopathy of hip region [facility] Diagnosis Trochanteric bursitis of right hip- Primary Enthesopathy of hip region Primary osteoarthritis of right hip Primary localized osteoarthrosis, pelvic region and thigh [facility] Diagnosis Trochanteric bursitis of right hip- Primary Enthesopathy of hip region [facility] Diagnosis Trochanteric bursitis of right hip- Primary Enthesopathy of hip region [facility] Diagnosis Trochanteric bursitis of right hip- Primary Enthesopathy of hip region [facility]* Diagnosis Type 2 diabetes mellitus [...] whether esophagitis present [facility] Diagnosis Trochanteric bursitis of right hip- Primary Enthesopathy of hip region [facility] Diagnosis Trochanteric bursitis of right hip- Primary Enthesopathy of hip region Pain of right hip Fall, initial encounter [facility] Diagnosis Coccyx pain- Primary Other disorder of coccyx Primary osteoarthritis of right hip Primary localized osteoarthrosis, pelvic region and thigh [facility]* Diagnosis Osteonecrosis of right hip (HCC)- Primary [facility] Diagnosis Presence of right artificial [...] of both hips [facility] [place] [facility]* Diagnosis Type 2 diabetes mellitus without [...] hip replacement, bilateral [facility] [place] [facility]* Diagnosis Low vitamin B12 level Other B-complex deficiencies [facility] [place] [facility]* Diagnosis COVID-19 virus infection- Primary [facility] [place] [facility]* Diagnosis Type 2 diabetes mellitus without complication, without long-term current use of insulin ([facility])- Primary Vitamin D deficiency Unspecified vitamin D deficiency Primary osteoarthritis of both hips Primary localized osteoarthrosis, pelvic region and thigh Chronic midline low back pain without sciatica Elevated LDL cholesterol level Pure hypercholesterolemia [facility] [place] [facility]* Diagnosis Acute pain of left knee- Primary Contusion of left knee, initial encounter Strain of left quadriceps, initial encounter Type 2 diabetes mellitus with other specified complication, without long-term current use of insulin ([facility]) documented [facility] [place] [facility]* Diagnosis Pain- Primary Generalized pain documented [facility] [place] [facility]* Diagnosis Pain- Primary Generalized pain [facility] [place] [facility]* Diagnosis Primary osteoarthritis of left knee- Primary Primary localized osteoarthrosis, lower leg Prepatellar effusion of left knee [facility] [place] [facility]* Diagnosis Status post total replacement of left hip- Primary Status post hip replacement, right Fall, initial encounter [facility] [place] [facility] Diagnosis Pre-operative examination- Primary Preoperative examination, [...] Dizziness and giddiness documented [facility] this [facility] [place] [facility] Diagnosis Pre-operative examination- Primary Preoperative examination, [...] knee, initial encounter documented in this encounter [facility] note* Diagnosis Pre-operative examination- Primary Preoperative examination, [...] region and thigh documented in this encounter [facility] note* Diagnosis Pre-operative examination- Primary Preoperative examination, [...] hip replacement, right [facility] [place] [facility]* Diagnosis Pre-operative examination- Primary Preoperative examination, [...] by other means documented in this encounter [facility] note* Diagnosis Pre-operative examination- Primary Preoperative examination, [...] hazards to health [facility] Diagnosis Pre-operative examination- Primary Preoperative examination, [...] hazards to health documented in this encounter [facility] note* Diagnosis Pre-operative examination- Primary Preoperative examination, [...] hazards to health documented in this encounter [facility] note* Diagnosis Pre-operative examination- Primary Preoperative examination, [...] hazards to health documented in this encounter [facility] note* Diagnosis Pre-operative examination- Primary Preoperative examination, [...] replacement, right- Primary documented in this encounter [facility] note* Diagnosis Pre-operative examination- Primary Preoperative examination, [...] blood chemistry, unspecified documented in this encounter [facility] note* Diagnosis Pre-operative examination- Primary Preoperative examination, [...] replacement, right- Primary documented in this encounter [facility] note* Diagnosis Pre-operative examination- Primary Preoperative examination, [...] hip replacement, right documented in this encounter [facility] note* Diagnosis Pre-operative examination- Primary Preoperative examination, [...] hazards to health Paroxysmal SVT (supraventricular tachycardia) ([facility])- Primary Paroxysmal supraventricular tachycardia Postural dizziness with presyncope Type 2 diabetes mellitus with other specified complication, without long-term current use of insulin (HCC) Primary osteoarthritis of both hips Primary localized osteoarthrosis, pelvic region and thigh Screening for depression Encounter for screening examination for other mental health and behavioral disorders documented in this encounter [facility] note* Diagnosis Pre-operative examination- Primary Preoperative examination, [...] specified cardiac dysrhythmias documented in this encounter [facility] note* Diagnosis Pre-operative examination- Primary Preoperative examination, [...] dizziness with presyncope documented in this encounter [facility] note* Diagnosis Pre-operative examination- Primary Preoperative examination, [...] (HCC) Atrial flutter [facility] [place] [facility] Diagnosis Pre-operative examination- Primary Preoperative examination, [...] (HCC) Atrial flutter [facility] [place] [facility]* Diagnosis Pre-operative examination- Primary Preoperative examination, [...] ([facility])- Primary Fecal incontinence with incomplete defecation Age-related osteoporosis without current pathological fracture 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 Other postprocedural status Vitamin D deficiency Unspecified vitamin D deficiency Low vitamin B12 level Other B-complex deficiencies Other idiopathic scoliosis, thoracolumbar region Asymptomatic postmenopausal status documented [facility] this [facility] [place] [facility]* Diagnosis Pre-operative examination- Primary Preoperative examination, unspecified Primary osteoarthritis of left hip Primary localized osteoarthrosis, pelvic region and thigh Abnormal EKG Nonspecific abnormal electrocardiogram (ECG) (EKG) Multiple sclerosis (HCC) Multiple sclerosis Type 2 diabetes mellitus with other specified complication, without long-term current use of insulin ([facility]) Gastroesophageal reflux disease, unspecified whether esophagitis present Osteopenia, unspecified location Pre-operative examination- Primary Preoperative examination, unspecified Multiple sclerosis (HCC) Multiple sclerosis Type 2 diabetes mellitus with other specified complication, without long-term current use of insulin ([facility]) Gastroesophageal reflux disease, unspecified whether esophagitis present Primary osteoarthritis of both hips Primary localized osteoarthrosis, pelvic region and thigh Former smoker Personal history of tobacco use, presenting hazards to health Encounter for immunization Need for other specified prophylactic vaccination against single bacterial disease documented in this encounter [facility] note* Diagnosis Pre-operative examination- Primary Preoperative examination, [...] hazards to health Paroxysmal SVT (supraventricular tachycardia) ([facility])- Primary Paroxysmal supraventricular tachycardia Typical atrial flutter (HCC) Atrial flutter S/P catheter ablation of slow pathway Other postprocedural status S/P ablation of atrial flutter Other postprocedural status At risk for stroke Other specified personal history presenting hazards to health documented in this encounter [facility] note* Diagnosis Pre-operative examination- Primary Preoperative examination, [...] thigh, initial encounter documented in this encounter [facility] note* Diagnosis Pre-operative examination- Primary Preoperative examination, [...] (HCC) Atrial flutter documented in this encounter [facility] note* Diagnosis Pre-operative examination- Primary Preoperative examination, [...] Asymptomatic postmenopausal status [facility] [place] [facility]* Diagnosis Pre-operative examination- Primary Preoperative examination, [...] scoliosis, thoracolumbar region documented [facility] this [facility] [place] [facility]* Diagnosis Onset Date Resolution Status Admit Date Aortic valve insufficiency chronic April 20, 2025 1:05pm Mitral regurgitation chronic April 20, 2025 1:05pm Pre-syncope chronic April 20 1:05pm SVT (supraventricular tachycardia) chronic April 20, 2025 1:05pm Type 2 diabetes mellitus chronic April 20, 2025 1:05pm [place] [employer] Work Phone: Evaluation note* Diagnosis Pre-operative examination- [...] Other B-complex deficiencies documented in this encounter [facility] Discharge instructionsAdditional Instructions Thank you for trusting [...] care physician for further outpatient evaluation and management.[facility] Work Phone: [facility] for referral (narrative)* Diagnostic Procedure Only (Routine) - Pending Review Specialty Diagnoses / Procedures Referred By Katerina thompson Referred To Contact XR IMAGING Diagnoses Pain in left hip Procedures XR PELVIS 1V AP RADIOLOGIC EXAMINATION PELVIS 1/2 VIEWS Fredy Carrasco APRN.[address] [address] Xr Imaging Referral ID Status Reason Start Date Expiration Date Visits Requested Visits Authorized [id number] Pending Review Auto-Generat ed Referral 01/16/2022 02/15/2023 1 1 [facility] for referral (narrative)* Outpatient Procedure (Routine) - Authorized Specialty Diagnoses / Procedures Referred By Katerina thompson Referred To Contact [facility] Diagnoses Rectal bleeding Procedures COLONOSCOPY DIAGNOSTIC COLONOSCOPY FLX DX W/COLLJ SPEC WHEN PFRMNuha Andrews MD [address] [place] [address] [address] Referral ID Status Reason Start Date Expiration Date Visits Requested Visits Authorized [id number] Authorized Auto-Generat ed Referral 03/05/2022 03/05/2023 1 1 [facility] for referral (narrative)* Outpatient Procedure (Routine) - Closed Specialty Diagnoses / Procedures Referred By Contac t Referred To Contact [facility] Diagnoses Rectal bleeding Procedures COLONOSCOPY DIAGNOSTIC COLONOSCOPY FLX DX W/COLLJ SPEC WHEN Nuha Boyle MD [address] [place] [address] [facility] Disease [address] [address] Referral ID Status Reason Start Date Expiration Date V isits Requested Visits Authorized [id number] Closed Auto-Generate d Referral 03/05/2022 03/05/2023 1 1 [facility] for referral (narrative)* Diagnostic Procedure Only (Routine) - Closed Specialty Diagnoses / Procedures Referred By Contac t Referred To Contact XR IMAGING Diagnoses Bursitis of other bursa of right hip Procedures XR HIP GENERAL 3V PELV/AP/LAT RIGHT RADEX HIP UNILATERAL WITH PELVIS 2-3 VIEWS Linda Silva APRN.CNP [address] [place] [address] Xr Imaging Referral ID Status Reason Start Date Expiration Date V isits Requested Visits Authorized [id number] Closed Auto-Generate d Referral 09/14/2022 10/14/2023 1 1 [facility] for referral (narrative)* Diagnostic Procedure Only (Routine) - Closed Specialty Diagnoses / Procedures Referred By Contac t Referred To Contact XR IMAGING Diagnoses Acute pain of left knee Contusion of left knee, initial encounter Procedures XR KNEE GENERAL 4V AP BOTH/PA BOTH/LAT/MERC LEFT RADIOLOGIC EXAM KNEE COMPLETE 4/MORE VIEWS Bg Chavarria MD [address] [place] [address] [place] [address] Referral ID Status Reason Start Date Expiration Date V isits Requested Visits Authorized [id number] Closed Auto-Generate d Referral 03/31/2024 04/30/2025 1 1 [facility] for referral (narrative)* Diagnostic Procedure Only (Routine) - Authorized Specialty Diagnoses / Procedures Referred By Contac t Referred To Contact XR IMAGING Diagnoses Pain Procedures XR HIP GENERAL 3V PELV/AP/LAT LEFT RADEX HIP UNILATERAL WITH PELVIS 2-3 VIEWS Lorena Jacobsen MD [address] [address] [place] [address] Referral ID Status Reason Start Date Expiration Date Visits Requested Visits Authorized [id number] Authorized Auto-Generat ed Referral 04/09/2024 05/09/2025 1 1 [facility] for referral (narrative)* Diagnostic Procedure Only (Routine) - New Request Specialty Diagnoses / Procedures Referred By Contac t Referred To Contact XR IMAGING Diagnoses Pain Procedures XR KNEE GENERAL 4V AP BOTH/PA BOTH/LAT/MERC LEFT RADIOLOGIC EXAM KNEE COMPLETE 4/MORE VIEWS Joe Jiang PA-C [address] [address] [place] [address] Referral ID Status Reason Start Date Expiration Date Visits Requested Visits Authorized [id number] New Request Auto-Generat ed Referral 04/28/2024 05/28/2025 1 1 [facility] for referral (narrative)* Diagnostic Procedure Only (Routine) - Closed Specialty Diagnoses / Procedures Referred By Contac t Referred To Contact XR IMAGING Diagnoses Acute pain of left knee Contusion of left knee, initial encounter Procedures XR KNEE GENERAL 4V AP BOTH/PA BOTH/LAT/MERC LEFT RADIOLOGIC EXAM KNEE COMPLETE 4/MORE VIEWS Bg Chavarria MD [address] [place] [address] [place] [address] Referral ID Status Reason Start Date Expiration Date V isits Requested Visits Authorized [id number] Closed Auto-Generate d Referral 03/31/2024 04/30/2025 1 1 [facility] for referral (narrative)* Diagnostic Procedure Only (Routine) - Closed Specialty Diagnoses / Procedures Referred By Contac t Referred To Contact XR IMAGING Diagnoses Pain in left hip Procedures XR HIP 2V AP/LAT LEFT (AK,FL,ME,UN) RADEX HIP UNILATERAL WITH PELVIS 2-3 VIEWS Fredy Carrasco APRN.CNP [address] [place] [address] [place] [address] Referral ID Status Reason Start Date Expiration Date V isits Requested Visits Authorized [id number] Closed Auto-Generate d Referral 04/16/2024 05/16/2025 1 1 [facility] for referral (narrative)* Diagnostic Procedure Only (Routine) - Closed Specialty Diagnoses / Procedures Referred By Contac t Referred To Contact XR IMAGING Diagnoses Status post hip replacement, right Procedures XR HIP GENERAL 3V PELV/AP/LAT RIGHT RADEX HIP UNILATERAL WITH PELVIS 2-3 VIEWS Sincere Hopkins MD [address] [place] [address] [place] [address] Referral ID Status Reason Start Date Expiration Date V isits Requested Visits Authorized [id number] Closed Auto-Generate d Referral 10/16/2023 11/14/2024 1 1 [facility] for referral (narrative)* Diagnostic Procedure Only (Routine) - Closed Specialty Diagnoses / Procedures Referred By Contac t Referred To Contact XR IMAGING Diagnoses Status post right hip replacement Procedures XR HIP GENERAL 3V PELV/AP/LAT RIGHT RADEX HIP UNILATERAL WITH PELVIS 2-3 VIEWS Joe Jiang PA-C [address] [address] [place] [address] Referral ID Status Reason Start Date Expiration Date V isits Requested Visits Authorized [id number] Closed Auto-Generate d Referral 07/08/2023 08/06/2024 1 1 [facility] for referral (narrative)* Diagnostic Procedure Only (Routine) - Closed Specialty Diagnoses / Procedures Referred By Katerina thompson Referred To Contact XR IMAGING Diagnoses Trochanteric bursitis of right hip Pain of right hip Fall, initial encounter Procedures XR HIP GENERAL 3V PELV/AP/LAT RIGHT RADEX HIP UNILATERAL WITH PELVIS 2-3 VIEWS Linda Silva APRN.CNP [address] [place] [address] [place] [address] Referral ID Status Reason Start Date Expiration Date V isits Requested Visits Authorized [id number] Closed Auto-Generate d Referral 05/03/2023 06/01/2024 1 1 [facility] for referral (narrative)* Diagnostic Procedure Only (Routine) - Closed Specialty Diagnoses / Procedures Referred By Katerina t Referred To Contact XR IMAGING Diagnoses Pain in right hip Procedures XR HIP 2V AP/LAT RIGHT (AK,FL,ME) RADEX HIP UNILATERAL WITH PELVIS 2-3 VIEWS James Marcano PA-C [address] [place] [address] [place] [address] Referral ID Status Reason Start Date Expiration Date V isits Requested Visits Authorized [id number] Closed Auto-Generate d Referral 02/05/2023 03/06/2024 1 1 [facility] for referral (narrative)* Diagnostic Procedure Only (Routine) - Closed Specialty Diagnoses / Procedures Referred By Contac t Referred To Contact XR IMAGING Diagnoses Bursitis of other bursa of right hip Procedures XR HIP GENERAL 3V PELV/AP/LAT RIGHT RADEX HIP UNILATERAL WITH PELVIS 2-3 VIEWS Linda Silva APRN.CNP [address] [place] [address] [place] [address] Referral ID Status Reason Start Date Expiration Date V isits Requested Visits Authorized [id number] Closed Auto-Generate d Referral 09/14/2022 10/14/2023 1 1 [facility] for referral (narrative)* Diagnostic Procedure Only (Routine) - Closed Specialty Diagnoses / Procedures Referred By Contac t Referred To Contact XR IMAGING Diagnoses Acquired hammer toe Procedures XR FOOT GENERAL 3V AP/LAT/OBL BILATERAL RADEX FOOT COMPLETE MINIMUM 3 VIEWS Elton Koch [address] [place] [address] [place] [address] Referral ID Status Reason Start Date Expiration Date V isits Requested Visits Authorized [id number] Closed Auto-Generate d Referral 09/05/2022 10/05/2023 1 1 [facility] for referral (narrative)* Diagnostic Procedure Only (Routine) - New Request Specialty Diagnoses / Procedures Referred By Contac t Referred To Contact XR IMAGING Diagnoses Status post hip replacement, right Procedures XR HIP GENERAL 3V PELV/AP/LAT RIGHT RADEX HIP UNILATERAL WITH PELVIS 2-3 VIEWS Sincere Hopkins MD [address] [place] [address] [place] [address] Referral ID Status Reason Start Date Expiration Date Visits Requested Visits Authorized [id number] New Request Auto-Generat ed Referral 07/03/2024 08/02/2025 1 1 [facility] for referral (narrative)No reason for referral information availableSt[facility] Narrative* Auth/Cert Specialty Diagnoses / Procedures Referred By Katerina t Referred To Contact Diagnoses Chronic midline [...] GUIDANCE LUMBAR SACRAL 1ST ADD FACET JOINT [facility] [address] [place] [address] Referral ID Status Reason Start Date Expiration Date Visits Re quested Visits Authorized [id number] 1 1 [facility] for visit Narrative* Outpatient Procedure (Routine) - Closed Specialty Diagnoses / Procedures Referred By Katerina t Referred To Contact [facility] Diagnoses Rectal bleeding Procedures COLONOSCOPY DIAGNOSTIC COLONOSCOPY FLX DX W/COLLJ SPEC WHEN PFRMD Nuha Saab MD [address] [address] [facility] [address] [place] [address] Referral ID Status Reason Start Date Expiration Date V isits Requested Visits Authorized [id number] Closed Auto-Generate d Referral 03/05/2022 03/05/2023 1 1 [facility] for visit Narrative* Diagnostic Procedure Only (Routine) - Closed Specialty Diagnoses / Procedures Referred By Contac t Referred To Contact XR IMAGING Diagnoses Acute pain of left knee Contusion of left knee, initial encounter Procedures XR KNEE GENERAL 4V AP BOTH/PA BOTH/LAT/MERC LEFT RADIOLOGIC EXAM KNEE COMPLETE 4/MORE VIEWS Bg Chavarria MD [address] [place] [address] [place] [address] Referral ID Status Reason Start Date Expiration Date V isits Requested Visits Authorized [id number] Closed Auto-Generate d Referral 03/31/2024 04/30/2025 1 1 [facility] for visit Narrative* Diagnostic Procedure Only (Routine) - Closed Specialty Diagnoses / Procedures Referred By Contac t Referred To Contact XR IMAGING Diagnoses Pain in left hip Procedures XR HIP 2V AP/LAT LEFT (AK,FL,ME,UN) RADEX HIP UNILATERAL WITH PELVIS 2-3 VIEWS Fredy Carrasco APRN.[employer]WE[employer] HEMMER [address] [place] [address] [place] [address] Referral ID Status Reason Start Date Expiration Date V isits Requested Visits Authorized [id number] Closed Auto-Generate d Referral 04/16/2024 05/16/2025 1 1 [facility] for visit Narrative* Diagnostic Procedure Only (Routine) - Closed Specialty Diagnoses / Procedures Referred By Contac t Referred To Contact XR IMAGING Diagnoses Status post hip replacement, right Procedures XR HIP GENERAL 3V PELV/AP/LAT RIGHT RADEX HIP UNILATERAL WITH PELVIS 2-3 VIEWS Sincere Hopkins MD [address] [place] [address] [place] [address] Referral ID Status Reason Start Date Expiration Date V isits Requested Visits Authorized [id number] Closed Auto-Generate d Referral 10/16/2023 11/14/2024 1 1 [facility] for visit Narrative* Diagnostic Procedure Only (Routine) - Closed Specialty Diagnoses / Procedures Referred By Contac t Referred To Contact XR IMAGING Diagnoses Status post right hip replacement Procedures XR HIP GENERAL 3V PELV/AP/LAT RIGHT RADEX HIP UNILATERAL WITH PELVIS 2-3 VIEWS Joe iJang PA-C [address] [address] [place] [address] Referral ID Status Reason Start Date Expiration Date V isits Requested Visits Authorized [id number] Closed Auto-Generate d Referral 07/08/2023 08/06/2024 1 1 [facility] for visit Narrative* Diagnostic Procedure Only (Routine) - Closed Specialty Diagnoses / Procedures Referred By Contac t Referred To Contact XR IMAGING Diagnoses Trochanteric bursitis of right hip Pain of right hip Fall, initial encounter Procedures XR HIP GENERAL 3V PELV/AP/LAT RIGHT RADEX HIP UNILATERAL WITH PELVIS 2-3 VIEWS Linda Silva APRN.[employer]WE[employer] HEMMER [address] [place] [address] [place] [address] Referral ID Status Reason Start Date Expiration Date V isits Requested Visits Authorized [id number] Closed Auto-Generate d Referral 05/03/2023 06/01/2024 1 1 [facility] for visit Narrative* Diagnostic Procedure Only (Routine) - Closed Specialty Diagnoses / Procedures Referred By Contac t Referred To Contact XR IMAGING Diagnoses Pain in right hip Procedures XR HIP 2V AP/LAT RIGHT (AK,FL,ME) RADEX HIP UNILATERAL WITH PELVIS 2-3 VIEWS James Marcano PA-C [address] [place] [address] [place] [address] Referral ID Status Reason Start Date Expiration Date V isits Requested Visits Authorized [id number] Closed Auto-Generate d Referral 02/05/2023 03/06/2024 1 1 [facility] for visit Narrative* Diagnostic Procedure Only (Routine) - Closed Specialty Diagnoses / Procedures Referred By Contac t Referred To Contact XR IMAGING Diagnoses Bursitis of other bursa of right hip Procedures XR HIP GENERAL 3V PELV/AP/LAT RIGHT RADEX HIP UNILATERAL WITH PELVIS 2-3 VIEWS Linda Silva APRN.[employer]WE[employer] HEMMER [address] [place] [address] [place] [address] Referral ID Status Reason Start Date Expiration Date V isits Requested Visits Authorized [id number] Closed Auto-Generate d Referral 09/14/2022 10/14/2023 1 1 [facility] for visit Narrative* Diagnostic Procedure Only (Routine) - Closed Specialty Diagnoses / Procedures Referred By Contac t Referred To Contact XR IMAGING Diagnoses Acquired hammer toe Procedures XR FOOT GENERAL 3V AP/LAT/OBL BILATERAL RADEX FOOT COMPLETE MINIMUM 3 VIEWS Elton Koch [address] [place] [address] [place] [address] Referral ID Status Reason Start Date Expiration Date V isits Requested Visits Authorized [id number] Closed Auto-Generate d Referral 09/05/2022 10/05/2023 1 1 [facility] for visit Narrative* Diagnostic Procedure Only (Routine) - Closed Specialty Diagnoses / Procedures Referred By Contac t Referred To Contact XR IMAGING Diagnoses Status post hip replacement, right Procedures XR HIP GENERAL 3V PELV/AP/LAT RIGHT RADEX HIP UNILATERAL WITH PELVIS 2-3 VIEWS Sincere Hopkins MD [address] [place] [address] [place] [address] Referral ID Status Reason Start Date Expiration Date V isits Requested Visits Authorized [id number] Closed Auto-Generate d Referral 07/03/2024 08/02/2025 1 1 [facility] for visit Narrative* Diagnostic Procedure Only (Routine) - Closed Specialty Diagnoses / Procedures Referred By Contac t Referred To Contact XR IMAGING Diagnoses Asymptomatic postmenopausal status Procedures DXA-AXIAL SKELETON DXA BONE DENSITY STUDY / SITES AXIAL Bg Alamo MD [address] [place] [address] Phone: tel: fax: [place] [address] Referral ID Status Reason Start Date Expiration Date V isits Requested Visits Authorized [id number] Closed Auto-Generate d Referral 11/20/2024 12/20/2025 1 1 [facility] Advance Directives No Advanced Directives Records FoundDocuments on File Type Date Recorded Patient Tight Cooper Expl anation Advance Directive(s) 12/12/2021 12:41 PM Advance Directive(s) 11/07/2021 6:39 AM Advance Directive(s) 10/20/2021 12:48 PM Advance Directive(s) 02/01/2021 7:48 AM Advance Directive(s) 01/31/2021 4:02 PM Advance Directive(s) 03/28/2016 5:57 PM Documents on File Type Date Recorded Patient Tight Cooper Expl anation Advance Directive(s) 12/12/2021 12:41 PM Advance Directive(s) 11/07/2021 6:39 AM Advance Directive(s) 10/20/2021 12:48 PM Advance Directive(s) 02/01/2021 7:48 AM Advance Directive(s) 01/31/2021 4:02 PM Advance Directive(s) 03/28/2016 5:57 PM Documents on File Type Date Recorded Patient Tight Cooper Expl anation Advance Directive(s) 02/08/2022 3:44 PM Advance Directive(s) 12/12/2021 12:41 PM Advance Directive(s) 11/07/2021 6:39 AM Advance Directive(s) 10/20/2021 12:48 PM Advance Directive(s) 02/01/2021 7:48 AM Advance Directive(s) 01/31/2021 4:02 PM Advance Directive(s) 03/28/2016 5:57 PM Documents on File Type Date Recorded Patient Tight Cooper Expl anation Advance Directive(s) 02/20/2022 6:34 AM Advance Directive(s) 02/16/2022 9:32 AM Advance Directive(s) 02/08/2022 3:44 PM Advance Directive(s) 12/12/2021 12:41 PM Advance Directive(s) 11/07/2021 6:39 AM Advance Directive(s) 10/20/2021 12:48 PM Advance Directive(s) 02/01/2021 7:48 AM Advance Directive(s) 01/31/2021 4:02 PM Advance Directive(s) 03/28/2016 5:57 PM Documents on File Type Date Recorded Patient Tight Cooper Expl anation Advance Directive(s) 02/20/2022 6:34 AM Advance Directive(s) 02/16/2022 9:32 AM Advance Directive(s) 02/08/2022 3:44 PM Advance Directive(s) 12/12/2021 12:41 PM Advance Directive(s) 11/07/2021 6:39 AM Advance Directive(s) 10/20/2021 12:48 PM Advance Directive(s) 02/01/2021 7:48 AM Advance Directive(s) 01/31/2021 4:02 PM Advance Directive(s) 03/28/2016 5:57 PM Documents on File Type Date Recorded Patient Tight Cooper Expl anation Advance Directive(s) 01/31/2021 4:02 PM Documents on File Type Date Recorded Patient Tight Cooper Expl anation Advance Directive(s) 01/31/2021 4:02 PM Documents on File Type Date Recorded Patient Tight Cooper Expl anation Advance Directive(s) 07/13/2023 1:18 PM Advance Directive(s) 01/31/2021 4:02 PM Latest Code Status on File Code Status Date Activated Date Inactivated Comments Full Code 07/01/2023 11:48 AM 07/08/2023 5:15 PM Question Answer Comments Full Code Order Discussed With: Patient Documents on File Type Date Recorded Patient Tight Cooper Expl anation Advance Directive(s) 07/13/2023 1:18 PM [...] Do you have a Healthcare Power of [employer]ung[employer] Arc? Yes May 22, 2025 5:08pm Advance Directives [...] Referral Specialty Diagnoses / Procedures Referred By Contac t Referred To Contact Gastroenterology Diagnoses Colon cancer screening Procedures CONSULT TO GASTROENTEROLOGY OFFICE/OUTPATIENT [facility] 60-74 MINUTES Bg Chavarria MD [address] [place] [address] Referral ID Status Reason Start Date Expiration Date Visits Requested Visits Authorized [id number] Authorized PCP Requested Referral 02/27/2022 02/27/2023 1 1 Specialty Diagnoses / Procedures Referred By Contac t Referred To Contact BR IMAGING Diagnoses Breast cancer screening by mammogram Procedures ANGIE SCREENING SCREENING MAMMOGRAPHY BI 2-VIEW BREAST INC CAD Bg Chavarria MD [address] [place] [address] [facility] [address] [facility] [address] Referral ID Status Reason Start Date Expiration Date Visits Requested Visits Authorized [id number] Authorized Auto-Generat ed Referral 02/27/2022 05/28/2022 3 1 Referral ID Status Reason Start Date Expiration Date V isits Requested Visits Authorized [id number] Closed Auto-Generate d Referral 02/27/2022 05/28/2022 3 1 Specialty Diagnoses / Procedures Referred By Contac t Referred To Contact Podiatry Diagnoses Hammer toes of both feet Procedures CONSULT TO PODIATRY OFFICE/OUTPATIENT [facility] 60-74 MINUTES Linda Silva APRN.SEEMA [address] [place] [address] [place] [address] Referral ID Status Reason Start Date Expiration Date Visits Requested Visits Authorized [id number] Authorized PCP Requested Referral 2 08/14/2023 1 1 Specialty Diagnoses / Procedures Referred By Contac t Referred To Contact Diagnoses Chronic pain of right hip Luis Manuel Hernandez, FORESTRY PILOT.[facility] [address] [place] [address] Referral ID Status Reason Start Date Expiration Date V isits Requested Visits Authorized [id number] Pending Review 1 1 Specialty Diagnoses / Procedures Referred By Contac t Referred To Contact XR IMAGING Diagnoses Chronic pain of right hip Procedures XR HIP GENERAL 3V PELV/AP/LAT RIGHT RADEX HIP UNILATERAL WITH PELVIS 2-3 VIEWS Luis Manuel Hernandez, FORESTRY PILOT.[facility] [address] [place] [address] Xr Imaging Referral ID Status Reason Start Date Expiration Date Visits Requested Visits Authorized [id number] Pending Review Auto-Generat ed Referral 02/04/2023 03/05/2024 1 1 Specialty Diagnoses / Procedures Referred By Contac t Referred To Contact [facility] Diagnoses Trochanteric bursitis of right hip Procedures PT REHAB FOLLOW UP ORDER THERAPEUTIC EXERCISES RE, EA 15 MIN. Zhen Powell, PT [address] [place] [address] [facility] [address] [place] [address] Referral ID Status Reason Start Date Expiration Date Visits Requested Visits Authorized [id number] Pending Review PCP Requested Referral Auto-Generate d Referral 04/08/2023 07/07/2023 1 1 Specialty Diagnoses / Procedures Referred By Contac t Referred To Contact Diagnoses Trochanteric bursitis of right hip Pain of right hip Fall, initial encounter Linda Silva APRN.[employer]WE[employer] HEMMER [address] [place] [address] Referral ID Status Reason Start Date Expiration Date Visits Re quested Visits Authorized [id number] Closed 1 1 Specialty Diagnoses / Procedures Referred By Contac t Referred To Contact XR IMAGING Diagnoses Trochanteric bursitis of right hip Pain of right hip Fall, initial encounter Procedures XR HIP GENERAL 3V PELV/AP/LAT RIGHT RADEX HIP UNILATERAL WITH PELVIS 2-3 VIEWS Linda Silva APRN.[employer]WE[employer] HEMMER [address] [place] [address] Xr Imaging Referral ID Status Reason Start Date Expiration Date V isits Requested Visits Authorized [id number] Closed Auto-Generate d Referral 05/03/2023 06/01/2024 1 1 Specialty Diagnoses / Procedures Referred By Katerina t Referred To Contact Diagnoses Osteonecrosis of right hip (HCC) Fredy Carrasco APRN.[employer] H[employer]MER [address] [place] [address] Referral ID Status Reason Start Date Expiration Date Visits Re quested Visits Authorized [id number] Closed 1 1 Specialty Diagnoses / Procedures Referred By Katerina t Referred To Contact CT IMAGING Diagnoses Presence of right artificial hip joint Osteonecrosis of right hip (HCC) Preoperative examination Procedures CT HIP WO IVCON RIGHT CT LOWER EXTREMITY W/O CONTRAST MATERIAL Fredy Carrasco APRN.[employer]WE[employer] HEMMER [address] [address] [place] [address] Referral ID Status Reason Start Date Expiration Date Visits Requested Visits Authorized [id number] Pending Review Auto-Generat ed Referral 05/21/2023 06/19/2024 1 1 Specialty Diagnoses / Procedures Referred By Pjac t Referred To Contact Diagnoses Osteonecrosis of right hip (HCC) Pre-op testing Procedures PACC PRE-SURGICAL PLANNING CONSULT Joe Jiang PA-C [address] [place] [address] Referral ID Status Reason Start Date Expiration Date Visits Requested Visits Authorized [id number] Ref Not Required PCP Requested Referral 06/05/2023 06/04/2024 1 1 Specialty Diagnoses / Procedures Referred By Katerina t Referred To Contact [facility] Diagnoses Status post hip replacement, right SI (sacroiliac) joint inflammation (HCC) Chronic midline low back pain without sciatica Procedures CONSULT TO PHYSICAL THERAPY PHYSICAL THERAPY EVALUATION HIGH COMPLEX 45 MINS Sincere Hopkins MD [address] [place] [address] [facility] [address] [place] [address] Referral ID Status Reason Start Date Expiration Date Visits Requested Visits Authorized [id number] Authorized PCP Requested Referral Auto-Generate d Referral 08/07/2023 08/06/2024 99 99 Specialty Diagnoses / Procedures Referred By Contac t Referred To Contact Cardiology Diagnoses Postural dizziness with presyncope Former smoker Abnormal EKG Type 2 diabetes mellitus with other specified complication, without long-term current use of insulin (HCC) Elevated LDL cholesterol level SOB (shortness of breath) Throat tightness Procedures CONSULT TO CARDIOLOGY OFFICE/OUTPATIENT [facility] 60 MINUTES Luis Manuel Hernandez, FORESTRY PILOT.[facility] [address] [place] [address] Referral ID Status Reason Start Date Expiration Date Visits Requested Visits Authorized [id number] Authorized PCP Requested Referral 07/06/2024 07/06/2025 1 [...] W/WO M-MODE COMPLETE REST&ST Luis Manuel Hernandez, FORESTRY PILOT.[facility] [address] [place] [address] [facility] [address] [place] [address] Referral ID Status Reason Start Date Expiration Date Visits Requested Visits Authorized [id number] Authorized Auto-Generat ed Referral 07/06/2024 07/06/2025 1 1 Specialty Diagnoses / Procedures Referred By Contac t Referred To Contact [facility] Diagnoses Postural dizziness with presyncope Procedures ECG COMPLETE ECG ROUTINE ECG W/LEAST 12 LDS W/I&R Luis Manuel Hernandez, FORESTRY PILOT.[facility] [address] [place] [address] [facility] [place] [address] Referral ID Status Reason Start Date Expiration Date Visits Requested Visits Authorized [id number] New Request Auto-Generat ed Referral 07/06/2024 07/06/2025 1 1 Specialty Diagnoses / Procedures Referred By Contac t Referred To Contact Cardiology Diagnoses SVT (supraventricular tachycardia) (HCC) Procedures CONSULT TO CARDIOLOGY OFFICE/OUTPATIENT NEW HIGH MDM 60 MINUTES Bg Chavarria MD [address] [place] [address] Gregg Ramirez MD [address] [place] [address] Referral ID Status Reason Start Date Expiration Date Visits Requested Visits Authorized [id number] Authorized PCP Requested Referral 09/13/2025 1 1 [...] M FU April 20, 2025 1:05 pm General Illness May 22, [...] or prosecute any alcohol or drug abuse patient.[facility] the event this information is protected by the Federal Confidentiality of Alcohol and Drug Abuse Patient Records regulations: The Federal rules restrict any use of the information to criminally investigate or prosecute any alcohol or drug abuse patient.[facility] the event this information is protected by the Federal Confidentiality of Alcohol and Drug Abuse Patient Records regulations: The Federal rules restrict any use of the information to criminally investigate or prosecute any alcohol or drug abuse patient.[facility] the event this information is protected by the Federal Confidentiality of Alcohol and Drug Abuse Patient Records regulations: The Federal rules restrict any use of the information to criminally investigate or prosecute any alcohol or drug abuse patient.[facility] the event this information is protected by the Federal Confidentiality of Alcohol and Drug Abuse Patient Records regulations: The Federal rules restrict any use of the information to criminally investigate or prosecute any alcohol or drug abuse patient.[facility] the event this information is protected by the Federal Confidentiality of Alcohol and Drug Abuse Patient Records regulations: The Federal rules restrict any use of the information to criminally investigate or prosecute any alcohol or drug abuse patient.[facility] the event this information is protected by the Federal Confidentiality of Alcohol and Drug Abuse Patient Records regulations: The Federal rules restrict any use of the information to criminally investigate or prosecute any alcohol or drug abuse patient.[facility] the event this information is protected by the Federal Confidentiality of Alcohol and Drug Abuse Patient Records regulations: The Federal rules restrict any use of the information to criminally investigate or prosecute any alcohol or drug abuse patient.[facility] the event this information is protected by the Federal Confidentiality of Alcohol and Drug Abuse Patient Records regulations: The Federal rules restrict any use of the information to criminally investigate or prosecute any alcohol or drug abuse patient.[facility] the event this information is protected by the Federal Confidentiality of Alcohol and Drug Abuse Patient Records regulations: The Federal rules restrict any use of the information to criminally investigate or prosecute any alcohol or drug abuse patient.[facility]In the event this information is protected by the Federal Confidentiality of Alcohol and Drug Abuse Patient Records regulations: The Federal rules restrict any use of the information to criminally investigate or prosecute any alcohol or drug abuse patient.[facility]In the event this information is protected by the Federal Confidentiality of Alcohol and Drug Abuse Patient Records regulations: The Federal rules restrict any use of the information to criminally investigate or prosecute any alcohol or drug abuse patient.[facility]In the event this information is protected by the Federal Confidentiality of Alcohol and Drug Abuse Patient Records regulations: The Federal rules restrict any use of the information to criminally investigate or prosecute any alcohol or drug abuse patient.[facility]In the event this information is protected by the Federal Confidentiality of Alcohol and Drug Abuse Patient Records regulations: The Federal rules restrict any use of the information to criminally investigate or prosecute any alcohol or drug abuse patient.[facility]In the event this information is protected by the Federal Confidentiality of Alcohol and Drug Abuse Patient Records regulations: The Federal rules restrict any use of the information to criminally investigate or prosecute any alcohol or drug abuse patient.[facility] HospitalIn the event this information is protected by the Federal Confidentiality of Alcohol and Drug Abuse Patient Records regulations: The Federal rules restrict any use of the information to criminally investigate or prosecute any alcohol or drug abuse patient.[facility] HospitalIn the event this information is protected by the Federal Confidentiality of Alcohol and Drug Abuse Patient Records regulations: The Federal rules restrict any use of the information to criminally investigate or prosecute any alcohol or drug abuse patient.[facility] HospitalIn the event this information is protected by the Federal Confidentiality of Alcohol and Drug Abuse Patient Records regulations: The Federal rules restrict any use of the information to criminally investigate or prosecute any alcohol or drug abuse patient.[facility] HospitalIn the event this information is protected by the Federal Confidentiality of Alcohol and Drug Abuse Patient Records regulations: The Federal rules restrict any use of the information to criminally investigate or prosecute any alcohol or drug abuse patient.[facility] HospitalIn the event this information is protected by the Federal Confidentiality of Alcohol and Drug Abuse Patient Records regulations: The Federal rules restrict any use of the information to criminally investigate or prosecute any alcohol or drug abuse patient.[facility] the event this information is protected by the Federal Confidentiality of Alcohol and Drug Abuse Patient Records regulations: The Federal rules restrict any use of the information to criminally investigate or prosecute any alcohol or drug abuse patient.[facility]In the event this information is protected by the Federal Confidentiality of Alcohol and Drug Abuse Patient Records regulations: The Federal rules restrict any use of the information to criminally investigate or prosecute any alcohol or drug abuse patient.[facility]In the event this information is protected by the Federal Confidentiality of Alcohol and Drug Abuse Patient Records regulations: The Federal rules restrict any use of the information to criminally investigate or prosecute any alcohol or drug abuse patient.[facility]In the event this information is protected by the Federal Confidentiality of Alcohol and Drug Abuse Patient Records regulations: The Federal rules restrict any use of the information to criminally investigate or prosecute any alcohol or drug abuse patient.[facility] the event this information is protected by the Federal Confidentiality of Alcohol and Drug Abuse Patient Records regulations: The Federal rules restrict any use of the information to criminally investigate or prosecute any alcohol or drug abuse patient.[facility]In the event this information is protected by the Federal Confidentiality of Alcohol and Drug Abuse Patient Records regulations: The Federal rules restrict any use of the information to criminally investigate or prosecute any alcohol or drug abuse patient.[facility]In the event this information is protected by the Federal Confidentiality of Alcohol and Drug Abuse Patient Records regulations: The Federal rules restrict any use of the information to criminally investigate or prosecute any alcohol or drug abuse patient.[facility]In the event this information is protected by the Federal Confidentiality of Alcohol and Drug Abuse Patient Records regulations: The Federal rules restrict any use of the information to criminally investigate or prosecute any alcohol or drug abuse patient.[facility]In the event this information is protected by the Federal Confidentiality of Alcohol and Drug Abuse Patient Records regulations: The Federal rules restrict any use of the information to criminally investigate or prosecute any alcohol or drug abuse patient.[facility] HospitalIn the event this information is protected by the Federal Confidentiality of Alcohol and Drug Abuse Patient Records regulations: The Federal rules restrict any use of the information to criminally investigate or prosecute any alcohol or drug abuse patient.[facility]In the event this information is protected by the Federal Confidentiality of Alcohol and Drug Abuse Patient Records regulations: The Federal rules restrict any use of the information to criminally investigate or prosecute any alcohol or drug abuse patient.[facility]In the event this information is protected by the Federal Confidentiality of Alcohol and Drug Abuse Patient Records regulations: The Federal rules restrict any use of the information to criminally investigate or prosecute any alcohol or drug abuse patient.[facility]In the event this information is protected by the Federal Confidentiality of Alcohol and Drug Abuse Patient Records regulations: The Federal rules restrict any use of the information to criminally investigate or prosecute any alcohol or drug abuse patient.[facility]In the event this information is protected by the Federal Confidentiality of Alcohol and Drug Abuse Patient Records regulations: The Federal rules restrict any use of the information to criminally investigate or prosecute any alcohol or drug abuse patient.[facility] HospitalIn the event this information is protected by the Federal Confidentiality of Alcohol and Drug Abuse Patient Records regulations: The Federal rules restrict any use of the information to criminally investigate or prosecute any alcohol or drug abuse patient.[facility]In the event this information is protected by the Federal Confidentiality of Alcohol and Drug Abuse Patient Records regulations: The Federal rules restrict any use of the information to criminally investigate or prosecute any alcohol or drug abuse patient.[facility]In the event this information is protected by the Federal Confidentiality of Alcohol and Drug Abuse Patient Records regulations: The Federal rules restrict any use of the information to criminally investigate or prosecute any alcohol or drug abuse patient.[facility]In the event this information is protected by the Federal Confidentiality of Alcohol and Drug Abuse Patient Records regulations: The Federal rules restrict any use of the information to criminally investigate or prosecute any alcohol or drug abuse patient.[facility]In the event this information is protected by the Federal Confidentiality of Alcohol and Drug Abuse Patient Records regulations: The Federal rules restrict any use of the information to criminally investigate or prosecute any alcohol or drug abuse patient.[facility] HospitalIn the event this information is protected by the Federal Confidentiality of Alcohol and Drug Abuse Patient Records regulations: The Federal rules restrict any use of the information to criminally investigate or prosecute any alcohol or drug abuse patient.[facility] HospitalIn the event this information is protected by the Federal Confidentiality of Alcohol and Drug Abuse Patient Records regulations: The Federal rules restrict any use of the information to criminally investigate or prosecute any alcohol or drug abuse patient.[facility]In the event this information is protected by the Federal Confidentiality of Alcohol and Drug Abuse Patient Records regulations: The Federal rules restrict any use of the information to criminally investigate or prosecute any alcohol or drug abuse patient.[facility]In the event this information is protected by the Federal Confidentiality of Alcohol and Drug Abuse Patient Records regulations: The Federal rules restrict any use of the information to criminally investigate or prosecute any alcohol or drug abuse patient.[facility]In the event this information is protected by the Federal Confidentiality of Alcohol and Drug Abuse Patient Records regulations: The Federal rules restrict any use of the information to criminally investigate or prosecute any alcohol or drug abuse patient.[facility]In the event this information is protected by the Federal Confidentiality of Alcohol and Drug Abuse Patient Records regulations: The Federal rules restrict any use of the information to criminally investigate or prosecute any alcohol or drug abuse patient.[facility]In the event this information is protected by the Federal Confidentiality of Alcohol and Drug Abuse Patient Records regulations: The Federal rules restrict any use of the information to criminally investigate or prosecute any alcohol or drug abuse patient.[facility] HospitalIn the event this information is protected by the Federal Confidentiality of Alcohol and Drug Abuse Patient Records regulations: The Federal rules restrict any use of the information to criminally investigate or prosecute any alcohol or drug abuse patient.[facility]In the event this information is protected by the Federal Confidentiality of Alcohol and Drug Abuse Patient Records regulations: The Federal rules restrict any use of the information to criminally investigate or prosecute any alcohol or drug abuse patient.[facility]In the event this information is protected by the Federal Confidentiality of Alcohol and Drug Abuse Patient Records regulations: The Federal rules restrict any use of the information to criminally investigate or prosecute any alcohol or drug abuse patient.[facility] HospitalIn the event this information is protected by the Federal Confidentiality of Alcohol and Drug Abuse Patient Records regulations: The Federal rules restrict any use of the information to criminally investigate or prosecute any alcohol or drug abuse patient.[facility]In the event this information is protected by the Federal Confidentiality of Alcohol and Drug Abuse Patient Records regulations: The Federal rules restrict any use of the information to criminally investigate or prosecute any alcohol or drug abuse patient.[facility] HospitalIn the event this information is protected by the Federal Confidentiality of Alcohol and Drug Abuse Patient Records regulations: The Federal rules restrict any use of the information to criminally investigate or prosecute any alcohol or drug abuse patient.[facility]In the event this information is protected by the Federal Confidentiality of Alcohol and Drug Abuse Patient Records regulations: The Federal rules restrict any use of the information to criminally investigate or prosecute any alcohol or drug abuse patient.[facility]In the event this information is protected by the Federal Confidentiality of Alcohol and Drug Abuse Patient Records regulations: The Federal rules restrict any use of the information to criminally investigate or prosecute any alcohol or drug abuse patient.[facility]In the event this information is protected by the Federal Confidentiality of Alcohol and Drug Abuse Patient Records regulations: The Federal rules restrict any use of the information to criminally investigate or prosecute any alcohol or drug abuse patient.[facility] HospitalIn the event this information is protected by the Federal Confidentiality of Alcohol and Drug Abuse Patient Records regulations: The Federal rules restrict any use of the information to criminally investigate or prosecute any alcohol or drug abuse patient.[facility]In the event this information is protected by the Federal Confidentiality of Alcohol and Drug Abuse Patient Records regulations: The Federal rules restrict any use of the information to criminally investigate or prosecute any alcohol or drug abuse patient.[facility]In the event this information is protected by the Federal Confidentiality of Alcohol and Drug Abuse Patient Records regulations: The Federal rules restrict any use of the information to criminally investigate or prosecute any alcohol or drug abuse patient.[facility] HospitalIn the event this information is protected by the Federal Confidentiality of Alcohol and Drug Abuse Patient Records regulations: The Federal rules restrict any use of the information to criminally investigate or prosecute any alcohol or drug abuse patient.[facility]In the event this information is protected by the Federal Confidentiality of Alcohol and Drug Abuse Patient Records regulations: The Federal rules restrict any use of the information to criminally investigate or prosecute any alcohol or drug abuse patient.[facility]In the event this information is protected by the Federal Confidentiality of Alcohol and Drug Abuse Patient Records regulations: The Federal rules restrict any use of the information to criminally investigate or prosecute any alcohol or drug abuse patient.[facility] HospitalIn the event this information is protected by the Federal Confidentiality of Alcohol and Drug Abuse Patient Records regulations: The Federal rules restrict any use of the information to criminally investigate or prosecute any alcohol or drug abuse patient.[facility] HospitalIn the event this information is protected by the Federal Confidentiality of Alcohol and Drug Abuse Patient Records regulations: The Federal rules restrict any use of the information to criminally investigate or prosecute any alcohol or drug abuse patient.[facility]In the event this information is protected by the Federal Confidentiality of Alcohol and Drug Abuse Patient Records regulations: The Federal rules restrict any use of the information to criminally investigate or prosecute any alcohol or drug abuse patient.[facility]In the event this information is protected by the Federal Confidentiality of Alcohol and Drug Abuse Patient Records regulations: The Federal rules restrict any use of the information to criminally investigate or prosecute any alcohol or drug abuse patient.[facility]In the event this information is protected by the Federal Confidentiality of Alcohol and Drug Abuse Patient Records regulations: The Federal rules restrict any use of the information to criminally investigate or prosecute any alcohol or drug abuse patient.[facility]In the event this information is protected by the Federal Confidentiality of Alcohol and Drug Abuse Patient Records regulations: The Federal rules restrict any use of the information to criminally investigate or prosecute any alcohol or drug abuse patient.[facility]In the event this information is protected by the Federal Confidentiality of Alcohol and Drug Abuse Patient Records regulations: The Federal rules restrict any use of the information to criminally investigate or prosecute any alcohol or drug abuse patient.[facility]In the event this information is protected by the Federal Confidentiality of Alcohol and Drug Abuse Patient Records regulations: The Federal rules restrict any use of the information to criminally investigate or prosecute any alcohol or drug abuse patient.[facility]In the event this information is protected by the Federal Confidentiality of Alcohol and Drug Abuse Patient Records regulations: The Federal rules restrict any use of the information to criminally investigate or prosecute any alcohol or drug abuse patient.[facility]In the event this information is protected by the Federal Confidentiality of Alcohol and Drug Abuse Patient Records regulations: The Federal rules restrict any use of the information to criminally investigate or prosecute any alcohol or drug abuse patient.[facility]In the event this information is protected by the Federal Confidentiality of Alcohol and Drug Abuse Patient Records regulations: The Federal rules restrict any use of the information to criminally investigate or prosecute any alcohol or drug abuse patient.[facility] HospitalIn the event this information is protected by the Federal Confidentiality of Alcohol and Drug Abuse Patient Records regulations: The Federal rules restrict any use of the information to criminally investigate or prosecute any alcohol or drug abuse patient.[facility] HospitalIn the event this information is protected by the Federal Confidentiality of Alcohol and Drug Abuse Patient Records regulations: The Federal rules restrict any use of the information to criminally investigate or prosecute any alcohol or drug abuse patient.[facility] the event this information is protected by the Federal Confidentiality of Alcohol and Drug Abuse Patient Records regulations: The Federal rules restrict any use of the information to criminally investigate or prosecute any alcohol or drug abuse patient.[facility]In the event this information is protected by the Federal Confidentiality of Alcohol and Drug Abuse Patient Records regulations: The Federal rules restrict any use of the information to criminally investigate or prosecute any alcohol or drug abuse patient.[facility]In the event this information is protected by the Federal Confidentiality of Alcohol and Drug Abuse Patient Records regulations: The Federal rules restrict any use of the information to criminally investigate or prosecute any alcohol or drug abuse patient.[facility]In the event this information is protected by the Federal Confidentiality of Alcohol and Drug Abuse Patient Records regulations: The Federal rules restrict any use of the information to criminally investigate or prosecute any alcohol or drug abuse patient.[facility]In the event this information is protected by the Federal Confidentiality of Alcohol and Drug Abuse Patient Records regulations: The Federal rules restrict any use of the information to criminally investigate or prosecute any alcohol or drug abuse patient.[facility] HospitalIn the event this information is protected by the Federal Confidentiality of Alcohol and Drug Abuse Patient Records regulations: The Federal rules restrict any use of the information to criminally investigate or prosecute any alcohol or drug abuse patient.[facility]In the event this information is protected by the Federal Confidentiality of Alcohol and Drug Abuse Patient Records regulations: The Federal rules restrict any use of the information to criminally investigate or prosecute any alcohol or drug abuse patient.[facility]In the event this information is protected by the Federal Confidentiality of Alcohol and Drug Abuse Patient Records regulations: The Federal rules restrict any use of the information to criminally investigate or prosecute any alcohol or drug abuse patient.[facility]In the event this information is protected by the Federal Confidentiality of Alcohol and Drug Abuse Patient Records regulations: The Federal rules restrict any use of the information to criminally investigate or prosecute any alcohol or drug abuse patient.[facility]In the event this information is protected by the Federal Confidentiality of Alcohol and Drug Abuse Patient Records regulations: The Federal rules restrict any use of the information to criminally investigate or prosecute any alcohol or drug abuse patient.[facility] HospitalIn the event this information is protected by the Federal Confidentiality of Alcohol and Drug Abuse Patient Records regulations: The Federal rules restrict any use of the information to criminally investigate or prosecute any alcohol or drug abuse patient.[facility]In the event this information is protected by the Federal Confidentiality of Alcohol and Drug Abuse Patient Records regulations: The Federal rules restrict any use of the information to criminally investigate or prosecute any alcohol or drug abuse patient.[facility]In the event this information is protected by the Federal Confidentiality of Alcohol and Drug Abuse Patient Records regulations: The Federal rules restrict any use of the information to criminally investigate or prosecute any alcohol or drug abuse patient.[facility]In the event this information is protected by the Federal Confidentiality of Alcohol and Drug Abuse Patient Records regulations: The Federal rules restrict any use of the information to criminally investigate or prosecute any alcohol or drug abuse patient.[facility]In the event this information is protected by the Federal Confidentiality of Alcohol and Drug Abuse Patient Records regulations: The Federal rules restrict any use of the information to criminally investigate or prosecute any alcohol or drug abuse patient.[facility]In the event this information is protected by the Federal Confidentiality of Alcohol and Drug Abuse Patient Records regulations: The Federal rules restrict any use of the information to criminally investigate or prosecute any alcohol or drug abuse patient.[facility]In the event this information is protected by the Federal Confidentiality of Alcohol and Drug Abuse Patient Records regulations: The Federal rules restrict any use of the information to criminally investigate or prosecute any alcohol or drug abuse patient.[facility]In the event this information is protected by the Federal Confidentiality of Alcohol and Drug Abuse Patient Records regulations: The Federal rules restrict any use of the information to criminally investigate or prosecute any alcohol or drug abuse patient.[facility]In the event this information is protected by the Federal Confidentiality of Alcohol and Drug Abuse Patient Records regulations: The Federal rules restrict any use of the information to criminally investigate or prosecute any alcohol or drug abuse patient.[facility]In the event this information is protected by the Federal Confidentiality of Alcohol and Drug Abuse Patient Records regulations: The Federal rules restrict any use of the information to criminally investigate or prosecute any alcohol or drug abuse patient.[facility]In the event this information is protected by the Federal Confidentiality of Alcohol and Drug Abuse Patient Records regulations: The Federal rules restrict any use of the information to criminally investigate or prosecute any alcohol or drug abuse patient.[facility]In the event this information is protected by the Federal Confidentiality of Alcohol and Drug Abuse Patient Records regulations: The Federal rules restrict any use of the information to criminally investigate or prosecute any alcohol or drug abuse patient.[facility]In the event this information is protected by the Federal Confidentiality of Alcohol and Drug Abuse Patient Records regulations: The Federal rules restrict any use of the information to criminally investigate or prosecute any alcohol or drug abuse patient.[facility]In the event this information is protected by the Federal Confidentiality of Alcohol and Drug Abuse Patient Records regulations: The Federal rules restrict any use of the information to criminally investigate or prosecute any alcohol or drug abuse patient.[facility]In the event this information is protected by the Federal Confidentiality of Alcohol and Drug Abuse Patient Records regulations: The Federal rules restrict any use of the information to criminally investigate or prosecute any alcohol or drug abuse patient.[facility]In the event this information is protected by the Federal Confidentiality of Alcohol and Drug Abuse Patient Records regulations: The Federal rules restrict any use of the information to criminally investigate or prosecute any alcohol or drug abuse patient.[facility]In the event this information is protected by the Federal Confidentiality of Alcohol and Drug Abuse Patient Records regulations: The Federal rules restrict any use of the information to criminally investigate or prosecute any alcohol or drug abuse patient.[facility]In the event this information is protected by the Federal Confidentiality of Alcohol and Drug Abuse Patient Records regulations: The Federal rules restrict any use of the information to criminally investigate or prosecute any alcohol or drug abuse patient.[facility]In the event this information is protected by the Federal Confidentiality of Alcohol and Drug Abuse Patient Records regulations: The Federal rules restrict any use of the information to criminally investigate or prosecute any alcohol or drug abuse patient.[facility] HospitalIn the event this information is protected by the Federal Confidentiality of Alcohol and Drug Abuse Patient Records regulations: The Federal rules restrict any use of the information to criminally investigate or prosecute any alcohol or drug abuse patient.[facility] HospitalIn the event this information is protected by the Federal Confidentiality of Alcohol and Drug Abuse Patient Records regulations: The Federal rules restrict any use of the information to criminally investigate or prosecute any alcohol or drug abuse patient.[facility] HospitalIn the event this information is protected by the Federal Confidentiality of Alcohol and Drug Abuse Patient Records regulations: The Federal rules restrict any use of the information to criminally investigate or prosecute any alcohol or drug abuse patient.[facility] HospitalIn the event this information is protected by the Federal Confidentiality of Alcohol and Drug Abuse Patient Records regulations: The Federal rules restrict any use of the information to criminally investigate or prosecute any alcohol or drug abuse patient.[facility] HospitalIn the event this information is protected by the Federal Confidentiality of Alcohol and Drug Abuse Patient Records regulations: The Federal rules restrict any use of the information to criminally investigate or prosecute any alcohol or drug abuse patient.[facility] HospitalIn the event this information is protected by the Federal Confidentiality of Alcohol and Drug Abuse Patient Records regulations: The Federal rules restrict any use of the information to criminally investigate or prosecute any alcohol or drug abuse patient.[facility] HospitalIn the event this information is protected by the Federal Confidentiality of Alcohol and Drug Abuse Patient Records regulations: The Federal rules restrict any use of the information to criminally investigate or prosecute any alcohol or drug abuse patient.[facility] HospitalIn the event this information is protected by the Federal Confidentiality of Alcohol and Drug Abuse Patient Records regulations: The Federal rules restrict any use of the information to criminally investigate or prosecute any alcohol or drug abuse patient.[facility] HospitalIn the event this information is protected by the Federal Confidentiality of Alcohol and Drug Abuse Patient Records regulations: The Federal rules restrict any use of the information to criminally investigate or prosecute any alcohol or drug abuse patient.[facility] HospitalIn the event this information is protected by the Federal Confidentiality of Alcohol and Drug Abuse Patient Records regulations: The Federal rules restrict any use of the information to criminally investigate or prosecute any alcohol or drug abuse patient.[facility] HospitalIn the event this information is protected by the Federal Confidentiality of Alcohol and Drug Abuse Patient Records regulations: The Federal rules restrict any use of the information to criminally investigate or prosecute any alcohol or drug abuse patient.[facility] HospitalIn the event this information is protected by the Federal Confidentiality of Alcohol and Drug Abuse Patient Records regulations: The Federal rules restrict any use of the information to criminally investigate or prosecute any alcohol or drug abuse patient.[facility] HospitalIn the event this information is protected by the Federal Confidentiality of Alcohol and Drug Abuse Patient Records regulations: The Federal rules restrict any use of the information to criminally investigate or prosecute any alcohol or drug abuse patient.[facility] HospitalIn the event this information is protected by the Federal Confidentiality of Alcohol and Drug Abuse Patient Records regulations: The Federal rules restrict any use of the information to criminally investigate or prosecute any alcohol or drug abuse patient.[facility] HospitalIn the event this information is protected by the Federal Confidentiality of Alcohol and Drug Abuse Patient Records regulations: The Federal rules restrict any use of the information to criminally investigate or prosecute any alcohol or drug abuse patient.[facility] HospitalIn the event this information is protected by the Federal Confidentiality of Alcohol and Drug Abuse Patient Records regulations: The Federal rules restrict any use of the information to criminally investigate or prosecute any alcohol or drug abuse patient.[facility] HospitalIn the event this information is protected by the Federal Confidentiality of Alcohol and Drug Abuse Patient Records regulations: The Federal rules restrict any use of the information to criminally investigate or prosecute any alcohol or drug abuse patient.[facility] HospitalIn the event this information is protected by the [facility] Confidentiality of Alcohol and Drug Abuse Patient Records regulations: The Federal rules restrict any use of the information to criminally investigate or prosecute any alcohol or drug abuse patient.[facility] HospitalIn the event this information is protected by the Federal Confidentiality of Alcohol and Drug Abuse Patient Records regulations: The Federal rules restrict any use of the information to criminally investigate or prosecute any alcohol or drug abuse patient.[facility] Care Teams (unrecognized sec tion and content) Clinical Trials Specialist Relationship Specialty Start Date End Date Bg Chavarria MD [address] [place] [address] PCP - General Internal Medicine 05/04/13 Clinical Trials Specialist Relationship Specialty Start Date End Date Bg Chavarria MD [address] [place], [place] [id number] PCP - General Internal Medicine 05/04/13 Clinical Trials Specialist Relationship Specialty Start Date End Date Bg Chavarria MD [address] [place], [place] [id number] PCP - General Internal Medicine 05/04/13 Clinical Trials Specialist Relationship Specialty Start Date End Date Bg Chavarria MD [address] [facility] [place] [address] PCP - General Internal Medicine 05/04/13 Clinical Trials Specialist Relationship Specialty Start Date End Date Bg Chavarria MD [address] [place] [address], [place] [address] PCP - General Internal Medicine 05/04/13 Clinical Trials Specialist Relationship Specialty Start Date End Date Bg Chavarria MD [address] [place] [address], [place] [address] PCP - General Internal Medicine 05/04/13 Clinical Trials Specialist Relationship Specialty Start Date End Date Bg Chavarria MD [address] [place] [address], [place] [address] PCP - General Internal Medicine 05/04/13 Clinical Trials Specialist Relationship Specialty Start Date End Date Bg Chavarria MD [address] [place] [address], [place] [address] PCP - General Internal Medicine 05/04/13 Clinical Trials Specialist Relationship Specialty Start Date End Date Bg Chavarria MD [address] [place] [address], [place] [address] PCP - General Internal Medicine 05/04/13 Clinical Trials Specialist Relationship Specialty Start Date End Date Bg Chavarria MD [address] [place] [address], [place] [address] PCP - General Internal Medicine 05/04/13 Clinical Trials Specialist Relationship Specialty Start Date End Date Bg Chavarria MD [address] [place] [address], [place] [address] PCP - General Internal Medicine 05/04/13 Clinical Trials Specialist Relationship Specialty Start Date End Date Bg Chavarria MD [address] [place] [address], [place] [address] PCP - General Internal Medicine 05/04/13 Clinical Trials Specialist Relationship Specialty Start Date End Date Bg Chavarria MD [address] [place] [address], [place] [address] PCP - General Internal Medicine 05/04/13 Clinical Trials Specialist Relationship Specialty Start Date End Date Bg Chavarria MD [address] [place] [address], [place] [address] PCP - General Internal Medicine 05/04/13 Clinical Trials Specialist Relationship Specialty Start Date End Date Bg Chavarria MD [address] [place] [address], [place] [address] PCP - General Internal Medicine 05/04/13 Clinical Trials Specialist Relationship Specialty Start Date End Date Bg Chavarria MD [address] [place] [address], [place] [address] PCP - General Internal Medicine 05/04/13 Clinical Trials Specialist Relationship Specialty Start Date End Date Bg Chavarria MD [address] [place] [address], [place] [address] PCP - General Internal Medicine 05/04/13 Clinical Trials Specialist Relationship Specialty Start Date End Date Bg Chavarria MD [address] [place] [address], [place] [address] PCP - General Internal Medicine 05/04/13 Clinical Trials Specialist Relationship Specialty Start Date End Date Bg Chavarria MD [address] [place] [address], [place] [address] PCP - General Internal Medicine 05/04/13 Clinical Trials Specialist Relationship Specialty Start Date End Date Bg Chavarria MD [address] [place] [address], [place] [address] PCP - General Internal Medicine 05/04/13 Clinical Trials Specialist Relationship Specialty Start Date End Date Bg Chavarria MD [address] [facility] [place] [address] PCP - General Internal Medicine 05/04/13 Clinical Trials Specialist Relationship Specialty Start Date End Date Bg Chavarria MD [address] [facility] [place] [address] PCP - General Internal Medicine 05/04/13 Clinical Trials Specialist Relationship Specialty Start Date End Date Bg Chavarria MD [address] [facility] [place] [address] PCP - General Internal Medicine 05/04/13 Clinical Trials Specialist Relationship Specialty Start Date End Date Bg Chavarria MD [address] [facility] [place] [address] PCP - General Internal Medicine 05/04/13 Clinical Trials Specialist Relationship Specialty Start Date End Date Bg Chavarria MD [address] [facility] [place] [address] PCP - General Internal Medicine 05/04/13 Clinical Trials Specialist Relationship Specialty Start Date End Date Bg Chavarria MD [address] [facility] [place] [address] PCP - General Internal Medicine 05/04/13 Clinical Trials Specialist Relationship Specialty Start Date End Date Bg Chavarria MD [address] [facility] [place] [address] PCP - General Internal Medicine 05/04/13 Clinical Trials Specialist Relationship Specialty Start Date End Date Bg Chavarria MD [address] [facility] [place] [address] PCP - General Internal Medicine 05/04/13 Clinical Trials Specialist Relationship Specialty Start Date End Date Bg Chavarria MD [address] [place] [address] PCP - General Internal Medicine 05/04/13 Clinical Trials Specialist Relationship Specialty Start Date End Date Bg Chavarria MD [address] [place] [address] PCP - General Internal Medicine 05/04/13 Clinical Trials Specialist Relationship Specialty Start Date End Date Bg Chavarria MD [address] [place] [address] PCP - General Internal Medicine 05/04/13 Clinical Trials Specialist Relationship Specialty Start Date End Date Bg Chavarria MD [address] [place] [address] PCP - General Internal Medicine 05/04/13 Clinical Trials Specialist Relationship Specialty Start Date End Date Bg Chavarria MD [address] [place] [address] PCP - General Internal Medicine 05/04/13 Clinical Trials Specialist Relationship Specialty Start Date End Date Bg Chavarria MD [address] [place] [address] PCP - General Internal Medicine 05/04/13 Clinical Trials Specialist Relationship Specialty Start Date End Date Bg Chavarria MD [address] [place] [address] PCP - General Internal Medicine 05/04/13 Clinical Trials Specialist Relationship Specialty Start Date End Date Bg Chavarria MD [address] [place] [address] PCP - General Internal Medicine 05/04/13 Clinical Trials Specialist Relationship Specialty Start Date End Date Bg Chavarria MD [address] [place] [address] PCP - General Internal Medicine 05/04/13 Clinical Trials Specialist Relationship Specialty Start Date End Date Bg Chavarria MD [address] [place] [address] PCP - General Internal Medicine 05/04/13 Reji Christensen, [facility] [address] [place] [address] Specialty Welder Operator Orthopedics 06/06/23 08/01/23 Clinical Trials Specialist Relationship Specialty Start Date End Date Bg Chavarria MD [address] [place] [address] PCP - General Internal Medicine 05/04/13 Reji Christensen, [facility] [address] [place] [address] Specialty Welder Operator Orthopedics 06/06/23 08/01/23 Clinical Trials Specialist Relationship Specialty Start Date End Date Bg Chavarria MD [address] [place] [address] PCP - General Internal Medicine 05/04/13 Reji Christensen, [facility] [address] [place] [address] Specialty Welder Operator Orthopedics 06/06/23 08/01/23 Clinical Trials Specialist Relationship Specialty Start Date End Date Bg Chavarria MD [address] [place] [address] PCP - General Internal Medicine 05/04/13 Chester Christensenin, [facility] [address] [place] [address] Specialty Welder Operator Orthopedics 06/06/23 08/01/23 Clinical Trials Specialist Relationship Specialty Start Date End Date Bg Chavarria MD [address] [place] [address] PCP - General Internal Medicine 05/04/13 Reji Christensen, [facility] [address] [place] [address] Specialty Welder Operator Orthopedics 06/06/23 08/01/23 Clinical Trials Specialist Relationship Specialty Start Date End Date Bg Chavarria MD [address] [place] [address] PCP - General Internal Medicine 05/04/13 Reji Christensen, [facility] [address] [place] [address] Specialty Welder Operator Orthopedics 06/06/23 08/01/23 Sincere Hopkins MD [address] [place] [address] Referring Orthopedics 06/29/23 Sincere Hopkins MD [address] [place] [address] Home Care Provider Orthopedics 06/29/23 Clinical Trials Specialist Relationship Specialty Start Date End Date Bg Chavarria MD [address] [place] [address] PCP - General Internal Medicine 05/04/13 Reji Christensen, [facility] [address] [place] [address] Specialty Welder Operator Orthopedics 06/06/23 08/01/23 Sincere Hopkins MD [address] [place] [address] Referring Orthopedics 06/29/23 Sincere Hopkins MD [address] [place] [address] Home Care Provider Orthopedics 06/29/23 Clinical Trials Specialist Relationship Specialty Start Date End Date Bg Chavarria MD [address] [place] [address] PCP - General Internal Medicine 05/04/13 Sincere Hopkins MD [facility] [place] [address] Referring Orthopedics 06/29/23 Sincere Hopkins MD [address] [place] [address] Home Care Provider Orthopedics 06/29/23 Clinical Trials Specialist Relationship Specialty Start Date End Date Bg Chavarria MD [address] [place] [address] PCP - General Internal Medicine 05/04/13 Sincere Hopkins MD [address] [place] [address] Referring Orthopedics 06/29/23 Sincere Hopkins MD [address] [place] [address] Home Care Provider Orthopedics 06/29/23 Clinical Trials Specialist Relationship Specialty Start Date End Date Bg Chavarria MD [address] [place] [address] PCP - General Internal Medicine 05/04/13 Sincere Hopkins MD [address] [place] [address] Referring Orthopedics 06/29/23 Sincere Hopkins MD [address] [place] [address] Home Care Provider Orthopedics 06/29/23 Clinical Trials Specialist Relationship Specialty Start Date End Date Bg Chavarria MD [address] [place] [address] PCP - General Internal Medicine 05/04/13 Sincere Hopkins MD [address] [place] [address] Referring Orthopedics 06/29/23 Sincere Hopkins MD [facility] [place] [address] Home Care Provider Orthopedics 06/29/23 Clinical Trials Specialist Relationship Specialty Start Date End Date Bg Chavarria MD [address] [place] [address] PCP - General Internal Medicine 05/04/13 Sincere Hopkins MD [address] [place] [address] Referring Orthopedics 06/29/23 Sincere Hopkins MD [address] [place] [address] Home Care Provider Orthopedics 06/29/23 Clinical Trials Specialist Relationship Specialty Start Date End Date Bg Chavarria MD [address] [place] [address] PCP - General Internal Medicine 05/04/13 Sincere Hopkins MD [address] [place] [address] Referring Orthopedics 06/29/23 Sincere Hopkins MD [address] [place] [address] Home Care Provider Orthopedics 06/29/23 Clinical Trials Specialist Relationship Specialty Start Date End Date Bg Chavarria MD [address] [place] [address] PCP - General Internal Medicine 05/04/13 Sincere Hopkins MD [address] [place] [address] Referring Orthopedics 06/29/23 Sincere Hopkins MD [address] [place] [address] Home Care Provider Orthopedics 06/29/23 Clinical Trials Specialist Relationship Specialty Start Date End Date Bg Chavarria MD [address] [place] [address] PCP - General Internal Medicine 05/04/13 Sincere Hopkins MD [address] [place] [address] Referring Orthopedics 06/29/23 Sincere Hopkins MD [address] [place] [address] Home Care Provider Orthopedics 06/29/23 Clinical Trials Specialist Relationship Specialty Start Date End Date Bg Chavarria MD [address] [place] [address] PCP - General Internal Medicine 05/04/13 Sincere Hopkins MD [address] [place] [address] Referring Orthopedics 06/29/23 Sincere Hopkins MD [address] [place] [address] Home Care Provider Orthopedics 06/29/23 Clinical Trials Specialist Relationship Specialty Start Date End Date Bg Chavarria MD [address] [place] [address] PCP - General Internal Medicine 05/04/13 Sincere Hopkins MD [address] [place] [address] Referring Orthopedics 06/29/23 Sincere Hopkins MD [address] [place] [address] Home Care Provider Orthopedics 06/29/23 Clinical Trials Specialist Relationship Specialty Start Date End Date Bg Chavarria MD [address] [place] [address] PCP - General Internal Medicine 05/04/13 Sincere Hopkins MD [address] [place] [address] Referring Orthopedics 06/29/23 Sincere Hopkins MD [address] [place] [address] Home Care Provider Orthopedics 06/29/23 Clinical Trials Specialist Relationship Specialty Start Date End Date Bg Chavarria MD [address] [place] [address] PCP - General Internal Medicine 05/04/13 Sincere Hopkins MD [address] [place] [address] Referring Orthopedics 06/29/23 Sincere Hopkins MD [address] [place] [address] Home Care Provider Orthopedics 06/29/23 Clinical Trials Specialist Relationship Specialty Start Date End Date Bg Chavarria MD [address] [place] [address] PCP - General Internal Medicine 05/04/13 Sincere Hopkins MD [address] [place] [address] Referring Orthopedics 06/29/23 Sincere Hopkins MD [address] [place] [address] Home Care Provider Orthopedics 06/29/23 Clinical Trials Specialist Relationship Specialty Start Date End Date Bg Chavarria MD [address] [place] [address] PCP - General Internal Medicine 05/04/13 Sincere Hopkins MD [address] [place] [address] Referring Orthopedics 06/29/23 Sincere Hopkins MD [address] [place] [address] Home Care Provider Orthopedics 06/29/23 Clinical Trials Specialist Relationship Specialty Start Date End Date Bg Chavarria MD [address] [place] [address] PCP - General Internal Medicine 05/04/13 Sincere Hopkins MD [address] [place] [address] Referring Orthopedics 06/29/23 Sincere Hopkins MD [address] [place] [address] Home Care Provider Orthopedics 06/29/23 Clinical Trials Specialist Relationship Specialty Start Date End Date Bg Chavarria MD [address] [place] [address] PCP - General Internal Medicine 05/04/13 Sincere Hopkins MD [address] [place] [address] Referring Orthopedics 06/29/23 Sincere Hopkins MD [address] [place] [address] Home Care Provider Orthopedics 06/29/23 Clinical Trials Specialist Relationship Specialty Start Date End Date Bg Chavarria MD [address] [place] [address] PCP - General Internal Medicine 05/04/13 Sincere Hopkins MD [facility] [place] [address] Referring Orthopedics 06/29/23 Sincere Hopkins MD [facility] [place] [address] Home Care Provider Orthopedics 06/29/23 Clinical Trials Specialist Relationship Specialty Start Date End Date Bg Chavarria MD [address] [place] [address] PCP - General Internal Medicine 05/04/13 Sincere Hopkins MD [facility] [place] [address] Referring Orthopedics 06/29/23 Sincere Hopkins MD [address] [place] [address] Home Care Provider Orthopedics 06/29/23 Clinical Trials Specialist Relationship Specialty Start Date End Date Bg Chavarria MD [address] [place] [address] PCP - General Internal Medicine 05/04/13 Sincere Hopkins MD [facility] [place] [address] Referring Orthopedics 06/29/23 Sincere Hopkins MD [address] [place] [address] Home Care Provider Orthopedics 06/29/23 Clinical Trials Specialist Relationship Specialty Start Date End Date Bg Chavarria MD [address] [place] [address] PCP - General Internal Medicine 05/04/13 Sincere Hopkins MD [address] [place] [address] Referring Orthopedics 06/29/23 Sincere Hopkins MD [address] [place] [address] Home Care Provider Orthopedics 06/29/23 Clinical Trials Specialist Relationship Specialty Start Date End Date Bg Chavarria MD [address] [place] [address] PCP - General Internal Medicine 05/04/13 Reji Christensen [facility] [address] [place] [address] Specialty Welder Operator Orthopedics 06/06/23 08/01/23 Sincere Hopkins MD [address] [place] [address] Referring Orthopedics 06/29/23 Sincere Hopkins MD [address] [place] [address] Home Care Provider Orthopedics 06/29/23 Clinical Trials Specialist Relationship Specialty Start Date End Date Bg Chavarria MD [address] [place] [address] PCP - General Internal Medicine 05/04/13 Clinical Trials Specialist Relationship Specialty Start Date End Date Bg Chavarria MD [address] [place] [address] PCP - General Internal Medicine 05/04/13 Clinical Trials Specialist Relationship Specialty Start Date End Date Bg Chavarria MD [address] [place] [address] PCP - General Internal Medicine 05/04/13 Clinical Trials Specialist Relationship Specialty Start Date End Date Bg Chavarria MD [address] [place] [address] PCP - General Internal Medicine 05/04/13 Sincere Hopkins MD [address] [place] [address] Referring Orthopedics 06/29/23 Sincere Hopkins MD [address] [place] [address] Home Care Provider Orthopedics 06/29/23 Clinical Trials Specialist Relationship Specialty Start Date End Date Bg Chavarria MD [address] [place] [address] PCP - General Internal Medicine 05/04/13 Sincere Hopkins MD [address] [place] [address] Referring Orthopedics 06/29/23 Sincere Hopkins MD [address] [place] [address] Home Care Provider Orthopedics 06/29/23 Clinical Trials Specialist Relationship Specialty Start Date End Date Bg Chavarria MD [address] [place] [address] PCP - General Internal Medicine 05/04/13 Sincere Hopkins MD [address] [place] [address] Referring Orthopedics 06/29/23 Sincere Hopkins MD [address] [place] [address] Home Care Provider Orthopedics 06/29/23 Clinical Trials Specialist Relationship Specialty Start Date End Date Bg Chavarria MD [address] [place] [address] PCP - General Internal Medicine 05/04/13 Sincere Hopkins MD [address] [place] [address] Referring Orthopedics 06/29/23 Sincere Hopkins MD [address] [place] [address] Home Care Provider Orthopedics 06/29/23 Clinical Trials Specialist Relationship Specialty Start Date End Date Bg Chavarria MD [address] [place] [address] PCP - General Internal Medicine 05/04/13 Sincere Hopkins MD [address] [place] [address] Referring Orthopedics 06/29/23 Sincere Hopkins MD [address] [place] [address] Home Care Provider Orthopedics 06/29/23 Clinical Trials Specialist Relationship Specialty Start Date End Date Bg Chavarria MD [address] [place] [address] PCP - General Internal Medicine 05/04/13 Sincere Hopkins MD [address] [place] [address] Referring Orthopedics 06/29/23 Sincere Hopkins MD [address] [place] [address] Home Care Provider Orthopedics 06/29/23 Clinical Trials Specialist Relationship Specialty Start Date End Date Bg Chavarria MD [address] [place] [address] PCP - General Internal Medicine 05/04/13 Sincere Hopkins MD [address] [place] [address] Referring Orthopedics 06/29/23 Sincere Hopkins MD [address] [place] [address] Home Care Provider Orthopedics 06/29/23 Luis Manuel Hernandez APRN.[facility] [address] [place] [address] Heavy Equipment Rental Associate Internal Medicine 09/07/24 Linda Silva APRN.[employer] [address] [place] [address] Heavy Equipment Rental Associate Internal Medicine 09/07/24 Clinical Trials Specialist Relationship Specialty Start Date End Date Bg Chavarria MD [address] [place] [address] PCP - General Internal Medicine 05/04/13 Sincere Hopkins MD [facility] [place] [address] Referring Orthopedics 06/29/23 Sincere Hopkins MD [address] [place] [address] Home Care Provider Orthopedics 06/29/23 Luis Manuel Hernandez, [employer] P[employer].[facility] [address] [place] [address] Heavy Equipment Rental Associate Internal Medicine 09/07/24 Linda Silva FOR[employer] P[employer] [address] [place] [address] Heavy Equipment Rental Associate Internal Medicine 09/07/24 Clinical Trials Specialist Relationship Specialty Start Date End Date Bg Chavarria MD [address] [place] [address] PCP - General Internal Medicine 05/04/13 Sincere Hopkins MD [facility] [place] [address] Referring Orthopedics 06/29/23 Sincere Hopkins MD [address], [place] [id number] Home Care Provider Orthopedics 06/29/23 Luis Manuel Hernandez, FORESTRY PILOT.RN CALL CENTER [address] [place] [address] Heavy Equipment Rental Associate Internal Medicine 09/07/24 Linda Silva FORESTRY PILOT.UNDERWEAR HEMMER [facility] [place] [address] Heavy Equipment Rental Associate Internal Medicine 09/07/24 Clinical Trials Specialist Relationship Specialty Start Date End Date Bg Chavarria MD [address] [place] [address] PCP - General Internal Medicine 05/04/13 Sincere Hopkins MD [address] [place] [address] Referring Orthopedics 06/29/23 Sincere Hopkins MD [address] [place] [address] Home Care Provider Orthopedics 06/29/23 Luis Manuel Hernandez, FORESTRY PILOT.RN CALL CENTER [address] [place] [address] Heavy Equipment Rental Associate Internal Medicine 09/07/24 Linda Silva FORESTRY PILOT.UNDERWEAR HEMMER [address] [place], [place] [address] Heavy Equipment Rental Associate Internal Medicine 09/07/24 Clinical Trials Specialist Relationship Specialty Start Date End Date Bg Chavarria MD [address] [place] [address] PCP - General Internal Medicine 05/04/13 Sincere Hopkins MD [address] [place] [address] Referring Orthopedics 06/29/23 Sincere Hopkins MD [address] [place] [address] Home Care Provider Orthopedics 06/29/23 Luis Manuel Hernandez APRN.RN CALL CENTER [address] [place] [address] Heavy Equipment Rental Associate Internal Medicine 09/07/24 Linda Silva APRN.UNDERWEAR HEMMER [address] [place] [address] Heavy Equipment Rental Associate Internal Medicine 09/07/24 Clinical Trials Specialist Relationship Specialty Start Date End Date Bg Chavarria MD [address] [place] [address] PCP - General Internal Medicine 05/04/13 Sincere Hopkins MD [address] [place] [address] Referring Orthopedics 06/29/23 Sincere Hopkins MD [address] [place] [address] Home Care Provider Orthopedics 06/29/23 Luis Manuel Hernandez APRN.RN CALL CENTER [address] [place] [address] Heavy Equipment Rental Associate Internal Medicine 09/07/24 Linda Silva APRN.UNDERWEAR HEMMER [facility] [place] [address] Heavy Equipment Rental Associate Internal Medicine 09/07/24 Clinical Trials Specialist Relationship Specialty Start Date End Date Bg Chavarria MD [address] [place] [address] PCP - General Internal Medicine 05/04/13 Sincere Hopkins MD [address] [place] [address] Referring Orthopedics 06/29/23 Sincere Hopkins MD [address] [place] [address] Home Care Provider Orthopedics 06/29/23 Luis Manuel Hernandez APRN.RN CALL CENTER [address] [place] [address] Heavy Equipment Rental Associate Internal Medicine 09/07/24 Linda Silva APRN.UNDERWEAR HEMMER [address] [place] [address] Heavy Equipment Rental Associate Internal Medicine 09/07/24 Clinical Trials Specialist Relationship Specialty Start Date End Date Bg Chavarria MD [address] [place] [address] PCP - General Internal Medicine 05/04/13 Sincere Hopkins MD [facility] [place] [address] Referring Orthopedics 06/29/23 Sincere Hopkins MD [address], [place] [id number] Home Care Provider Orthopedics 06/29/23 Luis Manuel Hernandez, FORESTRY PILOT.RN CALL CENTER [address] [facility] [place] [address] Heavy Equipment Rental Associate Internal Medicine 09/07/24 Linda Silva FORESTRY PILOT.UNDERWEAR HEMMER [address] [place] [address] Heavy Equipment Rental Associate Internal Medicine 09/07/24 Clinical Trials Specialist Relationship Specialty Start Date End Date Bg Chavarria MD [address] [place] [address] PCP - General Internal Medicine 05/04/13 Sincere Hopkins MD [address] [place] [address] Referring Orthopedics 06/29/23 Sincere Hopkins MD [address] [place] [address] Home Care Provider Orthopedics 06/29/23 Luis Manuel Hernandez, FORESTRY PILOT.RN CALL CENTER [address] [place] [address] Heavy Equipment Rental Associate Internal Medicine 09/07/24 Linda Silva FORESTRY PILOT.UNDERWEAR HEMMER [address] [facility] [place] [address] Heavy Equipment Rental Associate Internal Medicine 09/07/24 Clinical Trials Specialist Relationship Specialty Start Date End Date Bg Chavarria MD [address] [place] [address] PCP - General Internal Medicine 05/04/13 Sincere Hopkins MD [address] [place] [address] Referring Orthopedics 06/29/23 Sincere Hopkins MD [address] [place] [address] Home Care Provider Orthopedics 06/29/23 Luis Manuel Hernandez APRN.RN CALL CENTER [address] [place] [address] Heavy Equipment Rental Associate Internal Medicine 09/07/24 Linda Silva APRN.UNDERWEAR HEMMER [address] [place] [address] Heavy Equipment Rental Associate Internal Medicine 12/22/24 Clinical Trials Specialist Relationship Specialty Start Date End Date Bg Chavarria MD [address] [place] [address] PCP - General Internal Medicine 05/04/13 Sincere Hopkins MD [address] [place] [address] Referring Orthopedics 06/29/23 Sincere Hopkins MD [address] [place] [address] Home Care Provider Orthopedics 06/29/23 Luis Manuel Hernandez APRN.RN CALL CENTER [address] [place] [address] Heavy Equipment Rental Associate Internal Medicine 09/07/24 Linda Silva APRN.UNDERWEAR HEMMER [address] [place] [address] Heavy Equipment Rental Associate Internal Medicine 12/22/24 Clinical Trials Specialist Relationship Specialty Start Date End Date Bg Chavarria MD [address] [place] [address] PCP - General Internal Medicine 05/04/13 Sincere Hopkins MD [address] [place] [address] Referring Orthopedics 06/29/23 Sincere Hopkins MD [address] [place] [address] Home Care Provider Orthopedics 06/29/23 Luis Manuel Hernandez APRN.RN CALL CENTER [address] [place] [address] Heavy Equipment Rental Associate Internal Medicine 09/07/24 Linda Silva APRN.UNDERWEAR HEMMER [address] [place] [address] Heavy Equipment Rental Associate Internal Medicine 12/22/24 Clinical Trials Specialist Relationship Specialty Start Date End Date Bg Chavarria MD [address] [place] [address] PCP - General Internal Medicine 05/04/13 Sincere Hopkins MD [address] [place] [address] Referring Orthopedics 06/29/23 Sincere Hopkins MD [address] [place] [address] Home Care Provider Orthopedics 06/29/23 Linda Silva FORESTRY PILOT.UNDERWEAR HEMMER [address] [facility] [place] [address] Heavy Equipment Rental Associate Internal Medicine 12/22/24 Luis Manuel Hernandez, FORESTRY PILOT.RN CALL CENTER [address] [place] [address] Heavy Equipment Rental Associate Internal Medicine 02/17/25 Clinical Trials Specialist Relationship Specialty Start Date End Date Bg Chavarria MD [address] [place] [address] PCP - General Internal Medicine 05/04/13 Sincere Hopkins MD [address] [place] [address] Referring Orthopedics 06/29/23 Sincere Hopkins MD [address] [place] [address] Home Care Provider Orthopedics 06/29/23 Linda Silva FORESTRY PILOT.UNDERWEAR HEMMER [address] [place] [address] Heavy Equipment Rental Associate Internal Medicine 12/22/24 Luis Manuel Hernandez, FORESTRY PILOT.RN CALL CENTER [address] [facility] [place] [address] Heavy Equipment Rental Associate Internal Medicine 02/17/25 Clinical Trials Specialist Relationship Specialty Start Date End Date Bg Chavarria MD [address] [place] [address] PCP - General Internal Medicine 05/04/13 Sincere Hopkins MD [address] [place] [address] Referring Orthopedics 06/29/23 Sincere Hopkins MD [address] [place] [address] Home Care Provider Orthopedics 06/29/23 Linda Silva APRN.UNDERWEAR HEMMER [address] [place] [address] Heavy Equipment Rental Associate Internal Medicine 12/22/24 Luis Manuel Hernandez APRN.RN CALL CENTER [address] [place] [address] Heavy Equipment Rental Associate Internal Medicine 02/17/25 Clinical Trials Specialist Relationship Specialty Start Date End Date Bg Chavarria MD [address] [place] [address] PCP - General Internal Medicine 05/04/13 Sincere Hopkins MD [facility] [place] [address] Referring Orthopedics 06/29/23 Sincere Hopkins MD [facility] [place] [address] Home Care Provider Orthopedics 06/29/23 Luis Manuel Hernandez APRN.RN CALL CENTER [address] [place] [address] Heavy Equipment Rental Associate Internal Medicine 09/07/24 02/16/25 Linda Silva APRN.UNDERWEAR HEMMER [address] [place], [place] [address] Heavy Equipment Rental Associate Internal Medicine 12/22/24 Luis Manuel Hernandez, CARMEL.RN CALL CENTER [address] [place], [place] [address] [facility] Internal Medicine 02/17/25 Clinical Trials Specialist Relationship Specialty Start Date End Date Bg Chavarria MD [address] [place] [address] PCP - General Internal Medicine 05/04/13 Sincere Hopkins MD [address] [place] [id number] Referring Orthopedics 06/29/23 Sincere Hopkins MD [address] [place] [address] Home Care Provider Orthopedics 06/29/23 Linda Silva APRN.UNDERWEAR HEMMER [address] [place], [place] [address] [facility] Internal Medicine 12/22/24 Luis Manuel Hernandez, FORESTRY PILOT.RN CALL CENTER [address] [place], [place] [address] Heavy Equipment Rental Associate Internal Medicine 02/17/25 Team Status: Active Member [...] 2025 End: April 20, 2025 Rekha Rojas BOOKKEEPER, BOOKKEEPER-C Attending Provider Active Start: April 20, 2025 End: April 20, 2025 Clinical Trials Specialist Relationship Specialty Start Date End Date Bg Chavarria MD [address] [place] [address] PCP - General Internal Medicine 05/04/13 Sincere Hopkins MD [address] [place] [address] Referring Orthopedics 06/29/23 Sincere Hopkins MD [address], [place] [id number] Home Care Provider Orthopedics 06/29/23 Linda Silva APRN.UNDERWEAR HEMMER [address] [place] [address] Heavy Equipment Rental Associate Internal Medicine 12/22/24 Luis Manuel Hernandez APRN.RN CALL CENTER [address] [place] [address] Heavy Equipment Rental Associate Internal Medicine 02/17/25 Clinical Trials Specialist Relationship Specialty Start Date End Date Bg Chavarria MD [address] [place] [address] PCP - General Internal Medicine 05/04/13 Sincere Hopkins MD [address] [place] [address] Referring Orthopedics 06/29/23 Sincere Hopkins MD [address] [place] [address] Home Care Provider Orthopedics 06/29/23 Linda Silva APRN.UNDERWEAR HEMMER [address] [facility] [place] [address] Heavy Equipment Rental Associate Internal Medicine 12/22/24 Luis Manuel Hernandez APRN.RN CALL CENTER [address] [place] [address] Heavy Equipment Rental Associate Internal Medicine 02/17/25 Team Status: Active Member Role/Relationship Status Dates Dr. Bg Chavarria MD Primary Care Provider Active Team Status: Inactive Member Role/Relationship Status Dates Dr. Bg Chavarria MD Primary Care Provider Active Start: May 22, 2025 End: May 22, 2025 Dr. Uvaldo Shipley DO Emergency Provider Active Start: May 22, 2025 End: May 22, 2025 Clinical Trials Specialist Relationship Specialty Start Date End Date Bg Chavarria MD [address] [facility] [place] [address] PCP - General Internal Medicine 05/04/13 Sincere Hopkins MD [facility] [place] [address] Referring Orthopedics 06/29/23 Sincere Hopkins MD [facility] [place] [address] Home Care Provider Orthopedics 06/29/23 Linda Silva APRN.UNDERWEAR HEMMER [address] [facility] [place] [address] Heavy Equipment Rental Associate Internal Medicine 12/22/24 Luis Manuel Hernandez APRN.RN CALL CENTER [address] [place] [address] Heavy Equipment Rental Associate Internal Medicine 02/17/25 Reason for Visit (unrecogniz ed section and content) Reason Comments Physical Therapy Specialty Diagnoses / Procedures Referred By Contac t Referred To Contact PHYSICAL THERAPY Diagnoses Status post hip replacement, right Procedures CONSULT TO PHYSICAL THERAPY PHYSICAL THERAPY EVALUATION HIGH COMPLEX 45 MINS Joe Jiang PA-C [address] [facility] [address] [place] [address] Haley Snyder, PT Referral ID Status Reason Start Date Expiration Date Visits Requested Visits Authorized [id number] Authorized PCP Requested Referral 3 09/29/2023 99 99 Reason Comments PT Progress Note Reason Comments Orders Reason Comments Insurance Authorization risedronate (ACT PAULIE) 35 mg tablet Refill Request Reason Comments Appointment Reason Comments New Follow Up Hip Replacement Reason Onset Date Comments Follow Up Radiology Mammogram 02/27/2022 at [facility] Reason Comments Consult colonoscopy Specialty Diagnoses / Procedures Referred By Contac t Referred To Contact Gastroenterology Diagnoses Colon cancer screening Procedures CONSULT TO GASTROENTEROLOGY OFFICE/OUTPATIENT NEW HIGH MDM 60-74 MINUTES Bg Chavarria MD [address] [place] [address] Referral ID Status Reason Start Date Expiration Date V isits Requested Visits Authorized [id number] Closed PCP Requested Referral 02/27/2022 02/27/2023 1 1 Reason Comments Radiology Mammogram Specialty Diagnoses / Procedures Referred By Contac t Referred To Contact [facility] Diagnoses Breast cancer screening by mammogram Procedures ANGIE SCREENING SCREENING MAMMOGRAPHY BI 2-VIEW BREAST INC CAD Bg Chavarria MD [address] [place] [address] [facility] [address] [place] [address] Referral ID Status Reason Start Date Expiration Date V isits Requested Visits Authorized [id number] Closed Auto-Generate d Referral 02/27/2022 05/28/2022 3 [...] pain Specialty Diagnoses / Procedures Referred By Katerina thmopson Referred To Contact [facility] Diagnoses Trochanteric bursitis of right hip Procedures CONSULT TO PHYSICAL THERAPY PHYSICAL THERAPY EVALUATION HIGH COMPLEX 45 MINS Lorena Jacobsen MD [address] [address] [facility] [address] [address] Referral ID Status Reason Start Date Expiration Date Visits Requested Visits Authorized [id number] Authorized PCP Requested Referral Auto-Generate d Referral 02/07/2023 02/07/2024 99 99 Reason Comments PT Progress Note Specialty Diagnoses / Procedures Referred By Katerina thompson Referred To Contact [facility] Diagnoses Trochanteric bursitis of right hip Procedures CONSULT TO PHYSICAL THERAPY PHYSICAL THERAPY EVALUATION HIGH COMPLEX 45 MINS Lorena Jacobsen MD [address] [address] Reason Comments F/U 4 month Reason Comments [...] Date Expiration Date Visits Requested Visits Authorized [id number] Authorized PCP Requested Referral 3 10/29/2023 99 [...] Request Reason Comments CARD New Patient Consult 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 [email or web address] provides no warranty or guarantee of the accuracy or completeness of information in this document.
[2025-05-29 17:09] LABS: AST(SGOT) 26 U/L (<=31); Alanine Aminotransfer ALT/SGPT 12 U/L (<=34); Albumin, Serum 4.0 g/dL (3.4-4.8); Alkaline Phosphatase 57 U/L (35-104); Bilirubin, Direct 0.13 mg/dL (0.00-0.30); Globulin 2.4 g/dL (2.2-4.2); Magnesium 2.0 mg/dL (1.5-2.2)
[2025-05-29 17:54] LABS: Prothrombin Time (Protime)PT. 13.4 SECONDS (11.7-14.9)
[2025-05-29] MEDS: Pantoprazole Sodium 40 MG in 0.9% Normal Saline (100mL MB+) 100 ML 330 MG IV ×2 (18:16→21:41)
[2025-05-29] MEDS: Lactated Ringers 1,000 ML 75 ML IV (18:16)
[2025-05-29] MEDS: CLARIFY ORDER 1 EACH NOTE (19:29)
[2025-05-29] MEDS: 0.9% Saline Lock 10 ML Syringe IV (21:40)
[2025-05-29 22:58] LABS: Hematocrit 25.3 % (37-47); Hemoglobin 8.5 g/dL (12.0-15.0)
[2025-05-30 04:11] VITALS: BP 109/57; PULSE 54; RESP 16; TEMP 36.7; O2SAT 93
[2025-05-30 04:59] LABS: Hematocrit 25.0 % (37-47); Hemoglobin 8.4 g/dL (12.0-15.0); Immature Granulocytes Count 0.040 X10^3/uL (0.0-0.0); Mean Corp Hgb Conc 33.6 g/dL (32-36); Mean Corpuscular Volume 86.2 fL (81-99); Mean Platelet Vol. 9.0 fl (6.2-12.0); NRBC Flagged by Analyzer 0 % (0-5); Platelet Count 273 K/mm3 (150-450); RBC Distribution Width CV 14.3 % (11.6-14.6); RBC Distribution Width SD 43.8 fl (35.1-43.9); Red Blood Count 2.90 M/mm3 (4.2-5.4); White Blood Count 6.8 K/mm3 (4.4-11.0)
[2025-05-30 05:32] LABS: Anion Gap 10 (5-15); BUN 22 mg/dL (4-19); BUN/Creat Ratio 25.3 RATIO (10-20); Calcium,Total 8.5 mg/dL (7.6-11.0); Carbon Dioxide 25.2 mmol/L (21.0-32.0); Chloride 106 mmol/L (98-108); Estimated Creatinine Clearance 36.02 ml/min (50-250); Glucose 87 mg/dL (70-99); Potassium 3.9 mmol/L (3.3-5.1)
[2025-05-30 06:00] VITALS: BMI 22.3
[2025-05-30 06:02] VITALS: BP 119/50; PULSE 58; RESP 16; TEMP 37.1; O2SAT 93; BMI 22.3
--- NOTE | 2025-05-30 10:09 | PN.HOSP_ITS ---
Subjective Subjective She is feeling well, no issues overnight. She does state that she has been taking meloxicam almost daily for the last several years as well as Eliquis for tachycardia Objective Data Objective Data Vital Signs: Vital Signs Temp Pulse Resp BP Pulse Ox O2 Del Method 98.1 F 54 L 16 109/57 L 93 Room Air 05/30/25 04:11 05/30/25 04:11 05/30/25 04:11 05/30/25 04:11 05/30/25 04:11 05/30/25 08:00 Oxygen Delivery Method Room Air Weight: 110 lb 10.753 oz Body Mass Index (BMI) 22.3 Intake & Output: Intake and Output for Last 24 Hours 05/29/25 05/30/25 05/31/25 03:59 03:59 03:59 Intake Total 1080 / 1080 Balance 1080 / 1080 Lab / Micro Data 05/30/25 04:35 05/30/25 04:35 Labs: Laboratory Results - last 24 hr 05/29/25 13:21: WBC 7.4, RBC 2.45 L, Hgb 7.3 L, Hct 21.8 L, MCV 89.0, MCH 29.8, MCHC 33.5, RDW Std Deviation 46.3 H, RDW Coeff of Danny 14.3, Plt Count 319, MPV 9.1, Immature Gran % (Auto) 0.300, Neut % (Auto) 63.2, Lymph % (Auto) 23.3, Dickenson % (Auto) 10.2 H, Eos % (Auto) 2.7, Baso % (Auto) 0.3, Absolute Neuts (auto) 4.7, Absolute Lymphs (auto) 1.73, Nucleated RBC % 0, Sodium 138, Potassium 4.4, Chloride 101, Carbon Dioxide 24.4, Anion Gap 13, BUN 33 H, Creatinine 1.02, E stim Creat Clear Calc 30.02 L, Est GFR (MDRD) Non-Af 55 L, BUN/Creatinine Ratio 32.5 H, Glucose 112 H, Calcium 9.1 05/29/25 13:46: Magnesium 2.0, Total Bilirubin 0.24, Direct Bilirubin 0.13, AST 26, ALT 12, Alkaline Phosphatase 57, Total Protein 6.4, Albumin 4.0, Globulin 2.4 05/29/25 17:35: PT 13.4, INR 1.0, Blood Type B NEGATIVE, Antibody Screen NEGATIVE, Crossmatch See Detail 05/29/25 21:34: POC Glucose 106 05/29/25 22:48: Hgb 8.5 L, Hct 25.3 L 05/30/25 04:35: WBC 6.8, RBC 2.90 L, Hgb 8.4 L, Hct 25.0 L, MCV 86.2, MCH 29.0, MCHC 33.6, RDW Std Deviation 43.8, RDW Coeff of Danny 14.3, Plt Count 273, MPV 9.0, Immature Gran % (Auto) 0.600, Neut % (Auto) 58.4, Lymph % (Auto) 25.8, Dickenson % (Auto) 10.4 H, Eos % (Auto) 4.4, Baso % (Auto) 0.4, Absolute Neuts (auto) 4.0, Absolute Lymphs (auto) 1.76, Nucleated RBC % 0, Sodium 141, Potassium 3.9, Chloride 106, Carbon Dioxide 25.2, Anion Gap 10, BUN 22 H, Creatinine 0.85, E stim Creat Clear Calc 36.02 L, Est GFR (MDRD) Non-Af 68, BUN/Creatinine Ratio 25.3 H, Glucose 87, Hemoglobin A1c 6.1 H, Calcium 8.5 05/30/25 06:28: POC Glucose 91 Micro: Microbiology 05/29/25 14:59 Stool Stool Occult Blood (PRESTON) - Final Occult Blood Positive Physical Exam Narrative General: Alert, Oriented x3, Cooperative, No apparent distress HEENT: Atraumatic, PERRLA, EOMI, Normocephalic Oral: Moist Mucosa Neck: Supple, No JVD Lungs: Diminished, Normal air movement, No rhonchi, No wheeze, No rales Cardiovascular: Regular rate, Regular Rhythm, Normal S1, Normal S2, No murmurs Abdomen: Soft, Non Tender, Non-Distended, No Hepato-splenomegaly Extremities: No edema, Capillary Refill Less than 3 Seconds Skin: No rashes, No breakdown Musculoskeletal: No Tenderness to Palpation of Joints or Extremities Neurological: No focal neurological deficits, Motor Exam 5/5 strength throughout, Sensory exam intact to light touch and pain Psych/Mental Status: Normal Affect, Appropriate Assessment & Plan Assessment/Plan (1) GI bleeding: (2) Anemia: PLAN: Plan 1. Suspected GI bleed with acute blood loss anemia ? She was transfused 1 unit, will recheck this afternoon. It does appear that her anemia is potentially stabilized ? She will not obtain a scope until at least Saturday ? There is also potential for this being an upper GI source with a slight elevation in her BUN as well as the fact that she uses meloxicam on a daily basis, which she uses for chronic back pain ? Continue with PPI but will also add Carafate ? Continue to hold Eliquis 2. 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 Continue with Toprol ? Will hold Eliquis ? Will monitor make adjustments to her blood pressure medications ? Blood pressure is stable ? Last echo was in August 2020 with an EF of 65%, no need to repeat 3. DM2 ? Stable, will hold metformin ? Accu-Cheks ? Sliding scale insulin ? Monitor and make adjustments as necessary DVT: SCDs Charges/Coding Visit Charges Inpatient E&M: 80891 Subs Hosp L2
[2025-05-30 10:10] VITALS: BP 97/57; PULSE 58; RESP 18; TEMP 36.4; O2SAT 100
[2025-05-30] MEDS: Pantoprazole Sodium 40 MG in 0.9% Normal Saline (100mL MB+) 100 ML 330 MG IV ×2 (11:02→22:14)
--- NOTE | 2025-05-30 13:26 | CON.PCM.GI_ITS ---
HPI Consult Data Date of Consult: 05/31/25 HPI Narrative Reason for Consultation: GI bleed HPI Narrative: JOE CEE, is a 84-year-old female presented to the ED with her who is a retired physician. The chief complaint was a drop in hemoglobin. She was seen in the emergency department for fatigue and weakness and it was felt that she was dehydrated so she received IV fluids, and was discharged. The following day she started having a lower GI bleed. She does take Eliquis for atrial fibrillation. She has a history of paroxysmal SVT. She had been feeling weak and fatigued as well. She states that she saw her primary care provider at the [facility] and had lab work drawn and there was a significantly drop in hemoglobin to 7.3. Her hemoglobin was previously normal. As compared to Saturday when it was normal. They were told to come to the emergency department with high suspicion for gastrointestinal bleeding. She stopped taking meloxicam as well. She denies any nausea or vomiting, no exacerbating or alleviating factors but states that now she is currently constipated. She denies other bleeding diathesis. [facility] Medical History Aortic valve insufficiency Abnormality of gait Osteopenia Elevated LDL cholesterol level Vitamin D deficiency Trochanteric bursitis of right hip SI (sacroiliac) joint inflammation Former smoker Abnormal electro-oculogram GERD (gastroesophageal reflux disease) Type 2 diabetes mellitus Preop cardiovascular exam Multiple sclerosis DJD (degenerative joint disease) of cervical spine Expressive aphasia Home Medications ?Medication ?Instructions ?Recorded ?Last Taken ?Type conjugated estrogens 0.625 mg/gram 0.3125 mg vaginal D AILY Estrogen 01/24/21 Unknown History vaginal cream lactase 9,000 unit tablet (Lactase 9,000 unit PO ONCE PRN lactose 01/24/21 Unknown History Fast Acting) intolerance cyanocobalamin (vitamin B-12) 1,000 mcg IM QMONTH #0 m L 02/15/21 Unknown Rx 1,000 mcg/mL injection solution alendronate 70 mg tablet 70 mg PO QWEEK 08/06/24 Unkn own History cholecalciferol (vitamin D3) 125 5,000 unit PO QWEEK S upplement 08/13/24 Unknown History mcg (5,000 unit) capsule meloxicam 15 mg tablet 7.5 mg PO ONCE Arthritis pavel n 08/13/24 Unknown History Held on 05/29/25. Instructions: MD Ordered metoprolol succinate 25 mg 12.5 mg PO QDAY 08/31/24 Un known History tablet,extended release 24 hr apixaban 2.5 mg tablet (Eliquis) 2.5 mg PO BID 5 05/29/25 History metformin 500 mg tablet,extended 500 mg PO DAILY 05/29 Unknown History release 24 hr Allergy/AdvReac Type Severity Reaction Status Date / Time Penicillins Allergy Severe Rash Verified 05/29/25 12:47 amoxicillin Allergy Rash Verified 05/29/25 12:47 clindamycin AdvReac Severe Diarrhea Verified 05/29/25 12:47 prochlorperazine (From AdvReac Other Verified 05/29/25 12:47 Compazine) triazolam (From Halcion) AdvReac Other Verified 05/29/25 12:47 Family History Father Colon cancer Mother Thyroid disorder Osteoporosis Surgical History History of right hip replacement History of left hip replacement History of tonsillectomy History of bunionectomy History of left inguinal hernia repair History of tubal ligation Social History household members: spouse Smoking Status: Former smoker quit date: 09/30/92 Electronic Cigarette Use: not used alcohol intake: current details: Glass of wine daily. substance use type: does not use caffeine: Yes ROS Constitutional Constitutional: Denies fatigue, fever(s), poor appetite, weight gain or weight loss Gastrointestinal Gastrointestinal: Denies belching, bloating, change in bowel habits, change in stool character, chewing difficulty, coffee ground emesis, constipation, cramping, diarrhea, dyspepsia, dysphagia, early satiety, excessive flatus, fecal incontinence, heartburn, hematemesis, hematochezia, hemorrhoids, loose stools, melena, nausea, odynophagia, rectal bleeding, tenesmus, vomiting or weight changes Physical Exam Const alert, oriented x3, no apparent distress and healthy appearing General Appearance: cooperative GI normal to inspection, nondistended, normoactive bowel sounds, soft to palpation, non-tender and non-distended Percussion: normal to percussion Rectal Exam: deferred Lab / Micro Data 05/31/25 04:50 05/31/25 04:50 Labs: Laboratory Results - last 24 hr 05/29/25 13:21: WBC 7.4, RBC 2.45 L, Hgb 7.3 L, Hct 21.8 L, MCV 89.0, MCH 29.8, MCHC 33.5, RDW Std Deviation 46.3 H, RDW Coeff of Danny 14.3, Plt Count 319, MPV 9.1, Immature Gran % (Auto) 0.300, Neut % (Auto) 63.2, Lymph % (Auto) 23.3, Williamson % (Auto) 10.2 H, Eos % (Auto) 2.7, Baso % (Auto) 0.3, Absolute Neuts (auto) 4.7, Absolute Lymphs (auto) 1.73, Nucleated RBC % 0, Sodium 138, Potassium 4.4, Chloride 101, Carbon Dioxide 24.4, Anion Gap 13, BUN 33 H, Creatinine 1.02, E stim Creat Clear Calc 30.02 L, Est GFR (MDRD) Non-Af 55 L, BUN/Creatinine Ratio 32.5 H, Glucose 112 H, Calcium 9.1 05/29/25 13:46: Magnesium 2.0, Total Bilirubin 0.24, Direct Bilirubin 0.13, AST 26, ALT 12, Alkaline Phosphatase 57, Total Protein 6.4, Albumin 4.0, Globulin 2.4 05/29/25 17:35: PT 13.4, INR 1.0, Blood Type B NEGATIVE, Antibody Screen NEGATIVE, Crossmatch See Detail 05/29/25 21:34: POC Glucose 106 05/29/25 22:48: Hgb 8.5 L, Hct 25.3 L 05/30/25 04:35: WBC 6.8, RBC 2.90 L, Hgb 8.4 L, Hct 25.0 L, MCV 86.2, MCH 29.0, MCHC 33.6, RDW Std Deviation 43.8, RDW Coeff of Danny 14.3, Plt Count 273, MPV 9.0, Immature Gran % (Auto) 0.600, Neut % (Auto) 58.4, Lymph % (Auto) 25.8, Williamson % (Auto) 10.4 H, Eos % (Auto) 4.4, Baso % (Auto) 0.4, Absolute Neuts (auto) 4.0, Absolute Lymphs (auto) 1.76, Nucleated RBC % 0, Sodium 141, Potassium 3.9, Chloride 106, Carbon Dioxide 25.2, Anion Gap 10, BUN 22 H, Creatinine 0.85, E stim Creat Clear Calc 36.02 L, Est GFR (MDRD) Non-Af 68, BUN/Creatinine Ratio 25.3 H, Glucose 87, Hemoglobin A1c 6.1 H, Calcium 8.5 05/30/25 06:28: POC Glucose 91 Micro: Microbiology 05/29/25 14:59 Stool Stool Occult Blood (PRESTON) - Final Occult Blood Positive Assessment & Plan Assessment/Plan (1) Anticoagulant long-term use: (2) Anemia: (3) GI bleeding: PLAN: ?84-year-old male with a history of Afib on Eliquis and Meloxicam, presenting with the chief complaint of rectal bleeding. The patient reports passing multiple episodes of dark and maroon blood per rectum. The patient denies any hematemesis, coffee-ground emesis, or melena .?The patient reports lightheadedness and mild fatigue, consistent with acute to subacute blood loss. She denies chest pain, palpitations, or shortness of breath. She denies significant abdominal pain, cramping, or nausea. She reports a change in bowel habits, with more frequent movements due to the bleeding. She usually has constipation. She takes Eliquis (apixaban):?Taking as prescribed for Afib. Meloxicam:?Taking for arthritis, often daily. The?likely from a source distal to the stomach based on the maroon-colored and bright red stools. The bleeding is compounded by the use of two high-risk medications: * Eliquis (apixaban):?As a Factor Xa inhibitor, it directly prevents blood clot formation throughout the body, including at sites of GI injury. The risk of GI bleeding is a major side effect of all oral anticoagulants. * Meloxicam (NSAID):?NSAIDs cause GI bleeding through the inhibition of cyclooxygenase (HAIR) enzymes, which reduces protective prostaglandins in the gut lining and impairs platelet function. The combination of an anticoagulant and an NSAID significantly increases the risk of serious bleeding. The patient's age (>75 years) is another independent risk factor for GI bleeding. Given her Afib, the decision to hold anticoagulation must weigh the risk of ongoing bleeding against the risk of a potential thrombotic event. Differential Diagnoses: * Diverticular bleeding?(most common cause of lower GI bleeding, especially in the elderly). * Angiodysplasia?(vascular malformation). * Ischemic colitis. * Colonic malignancy. * Internal hemorrhoids. Plan Recommend EGD and colonoscopy to evaluate upper lower GI tract. She will need to be prepped for colonoscopy. * Monitoring: * Frequent vital signs, including orthostatic measurements. * Serial CBCs to monitor hemoglobin trends. * Monitor for signs of re-bleeding. * Medication Management: * Consider alternative pain management options, such as acetaminophen Charges/Coding Visit Charges Inpatient E&M: 12757 Init Hosp L3
[2025-05-30 14:16] LABS: Hematocrit 28.7 % (37-47); Hemoglobin 9.4 g/dL (12.0-15.0)
--- NOTE | 2025-05-30 15:27 | CT_ITS ---
PROCEDURE: CTA ABD/PELVIS W/WO CONTRAST 05/30/2025 REASON FOR EXAM: GI BLEED TECHNIQUE: Procedure Code: [id number] Modality: CT Procedure: CTA ABD/PELVIS W/WO CONTRAST Multiplanar Sagittal and Coronal images were obtained. 3D and or MIPS post processing was performed CONTRAST: Isovue 370 VOLUME: 75 mL One or more dose reduction techniques were used (e.g., Automated exposure control, adjustment of the mA and/or kV according to patient size, use of iterative reconstruction technique). RADIATION DOSE SUMMARY: CTDlvol: 42 mGy DLP: 309 mGycm COMPARISON: September 01, 2021 FINDINGS: Aorta: Timing and quality of the contrast bolus is diagnostic. No evidence of aortic dissection, rupture or aneurysm. Moderate atherosclerotic plaque in the infrarenal abdominal aorta. Iliac Arteries: No aneurysm, dissection or rupture. Celiac: Patent SMA: Patent SOPHIA : Patent Right Renal: Patent Left Renal: Patent Extravascular Findings: Subsegmental atelectasis of the lung bases. Mild cardiac enlargement. The liver, spleen, pancreas, adrenals, kidneys, renal collecting system appear unremarkable. No free fluid, lymphadenopathy or mesenteric mass. No fluid collection. The bladder is unremarkable. Calcified uterine fibroids are seen. Bilateral hip replacements. Degenerative changes throughout the lumbar spine with curvature of the spine to the left. This is associated with disc space narrowing, marginal endplate spurring and facet hypertrophy. CT/CTA Abd/Pelvis W/WO Contrast IMPRESSION: No acute aortic abnormality. No bowel obstruction or site of bleeding seen at this time. Reading Location: [id number]
[2025-05-30 16:26] VITALS: BP 135/63; PULSE 70; RESP 18; TEMP 36.4; O2SAT 98
[2025-05-30 22:09] VITALS: BP 141/62; PULSE 56; RESP 16; TEMP 36.7; O2SAT 97
[2025-05-30] MEDS: 0.9% Saline Lock 10 ML Syringe IV (22:14)
[2025-05-31] VITALS (10 sets, daily range): BP systolic 101–141; BP diastolic 50–78; PULSE 58–85; RESP 15–17; TEMP 36.1–37.1; O2SAT 92–97; BMI 22.4
--- NOTE | 2025-05-31 00:21 | EKG12_ITS ---
Test Reason : PRE-OP Blood Pressure : */* mmHG Vent. Rate : 54 BPM Atrial Rate : 54 BPM P-R Int : 154 ms QRS Dur : 82 ms QT Int : 430 ms P-R-T Axes : 45 -32 16 degrees QTcB Int : 407 ms Sinus bradycardia Left axis deviation T wave abnormality, consider anterior ischemia Abnormal ECG When compared with ECG of 22-May-2025 18:37, Vent. rate has decreased by 29 bpm Confirmed by Dom Garcia ([id number]), assistant film editor ADRIANO SAGASTUME ([id number]) on 06/01/2025 11:12:57 AM Referred By: ERICKA Confirmed By: Dom Garcia
[2025-05-31 05:10] LABS: Hematocrit 25.9 % (37-47); Hemoglobin 8.7 g/dL (12.0-15.0); Immature Granulocytes Count 0.030 X10^3/uL (0.0-0.0); Mean Corp Hgb Conc 33.6 g/dL (32-36); Mean Corpuscular Volume 87.2 fL (81-99); Mean Platelet Vol. 8.9 fl (6.2-12.0); NRBC Flagged by Analyzer 0 % (0-5); Platelet Count 280 K/mm3 (150-450); RBC Distribution Width CV 14.2 % (11.6-14.6); RBC Distribution Width SD 44.1 fl (35.1-43.9); Red Blood Count 2.97 M/mm3 (4.2-5.4); White Blood Count 6.5 K/mm3 (4.4-11.0)
[2025-05-31 05:18] LABS: Prothrombin Time (Protime)PT. 13.4 SECONDS (11.7-14.9)
[2025-05-31 05:48] LABS: Anion Gap 10 (5-15); BUN 13 mg/dL (4-19); BUN/Creat Ratio 15.1 RATIO (10-20); Calcium,Total 8.7 mg/dL (7.6-11.0); Carbon Dioxide 25.9 mmol/L (21.0-32.0); Chloride 106 mmol/L (98-108); Estimated Creatinine Clearance 34.79 ml/min (50-250); Glucose 92 mg/dL (70-99); Potassium 3.7 mmol/L (3.3-5.1)
[2025-05-31 07:49] LABS: Ferritin 37 ng/mL (22-378); Iron 25 ug/dL (50-170); Iron Binding Capacity,Total 270 ug/dL (250-450); Iron Binding Capacity,Unsat 245 ug/dL (228-428)
[2025-05-31] MEDS: Pantoprazole Sodium 40 MG in 0.9% Normal Saline (100mL MB+) 100 ML 330 MG IV ×2 (10:23→21:42)
[2025-05-31] MEDS: Sodium Ferric Gluconat/Sucrose 250 MG in 0.9% Normal Saline (250mL Bag) 250 ML 135 MG IV (10:51)
--- NOTE | 2025-05-31 11:17 | PCM.PRE.AN2 ---
ASA Classification* ASA Classification ASA Classification: 3 and E Assessment & Plan Anesthesia* Anesthesia Assessment Anesthesia Assessment: Discussed sedation and/or anesthesia options, risks, benefits, and alternatives with patient/parents/legal guardian/POA. Questions invited. The patient/parents/legal guardian/POA seems to understand and agrees to proceed with anesthesia plan. Reviewed the physical assessment, medical history, allergy history and patient home medications list prior to surgery/procedure/anesthetic and documented any changes. Performed airway and anesthesia risk assessments. Anesthesia Type Anesthesia Type: MAC History Source History Obtained from:: Patient and Chart Anesthesia Focused Assessment* Temperature: 97.4 F Pulse Rate: 78 Blood Pressure: 122/64 Respiratory Rate: 16 Pulse Ox: 92 Oxygen Delivery Method: Room Air Airway Assessment Mouth opens: 2 cm Mallampati Score: IV Teeth Condition: Implants Neck Range of motion (ROM): Limited ROM Labs Anesthesia Preop lab: CBC WBC 6.5 K/mm3 (4.4-11.0) 05/31/25 04:50 05/31/25 RBC 2.97 M/mm3 (4.2-5.4) L 05/31/25 04:50 05/31/25 Hgb 8.7 g/dL (12.0-15.0) L 05/31/25 04:50 05/31/25 Hct 25.9 % (37-47) L 05/31/25 04:50 05/31/25 Plt Count 280 K/mm3 (150-450) 05/31/25 04:50 05/31/25 CHEMISTRY Potassium 3.7 mmol/L (3.3-5.1) 05/31/25 04:50 05/31/25 Sodium 141 mmol/L (133-145) 05/31/25 04:50 05/31/25 Magnesium 2.0 mg/dL (1.5-2.2) 05/29/25 13:46 05/29/25 BUN 13 mg/dL (4-19) 05/31/25 04:50 05/31/25 Creatinine 0.88 mg/dL (0.70-1.20) 05/31/25 04:50 05/31/25 Glucose 92 mg/dL (70-99) 05/31/25 04:50 05/31/25 POC Glucose 112 mg/dL (74-106) H 05/31/25 06:33 05/31/25 COAG PT 13.4 SECONDS (11.7-14.9) 05/31/25 04:50 05/31/25 Pre-Assessment Diagnosis/Proposed Procedure Planned Operative Procedure(s): EGD for low hemoglobin Anesthesia History 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 When Was Last Pacemaker Check QUESTION #4 FULL TEXT: You/Your Family Experience fever (hyperthermia) with Anesthesia Last Oral Intake Last Oral intake: Last Oral Intake NPO since 00:00 05/30/25 06:02 Meds taken in AM with sips of No 05/30/25 06:02 water? Meds patient instructed to take am of surgery PONV PONV - basket braider: PONV - basket braider Female HX of Motion Sickness HX of N/V After Surgery Non-Smoker Duration of Surgery greater than 60 minutes Number of Risk Factors PONV Score Height & Weight Height & Weight: Anesthesia: Height & Weight Height 4 ft 11 in 05/30/25 10:33 Weight: 50.3 kg 05/31/25 05:42 Body Mass Index (BMI) 22.4 05/31/25 05:42 Respiratory Assessment Respiratory Assessment - basket braider: Respiratory Tract Infection Hx - basket braider Hx Respiratory Tract Infection No 05/30/25 22:41 STOP Sleep Apnea STOP Sleep Apnea - basket braider: STOP Sleep Apnea - basket braider Hx Hypertension No 05/30/25 08:57 Hx Sleep Apnea No 05/29/25 17:40 CPAP No 06/24/15 20:08 BIPAP No 06/24/15 20:08 Do you snore loudly (louder No 05/29/25 17:40 than talking or can be heard Do you often feel tired/ No 05/29/25 17:40 fatigued/ sleepy during daytime? Has anyone observed you stop No 05/29/25 17:40 breathing during sleep? STOP Results Negative 05/29/25 17:40 QUESTION #5 FULL TEXT : Do you snore loudly (louder than talking or can be heard through closed doors)? 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 Specify any problems Hx of Preganancy in last 3 No 05/29/25 17:40 Months Nurse Filling Out Transfusion TSTIKA 05/29/25 17:40 & Questions: Date: 05/29/25 05/29/25 17:40 Time: 17:44 05/29/25 17:40 Patient unable to answer at this time (ie. confused, unrespo /Reproduction History /Reproductive History - basket braider: /Reproductive Hx- basket braider Hx Now No 05/30/25 22:41 Gestational Age (in weeks): EDC: Hx Hx Para Hx Section SAB No 05/30/25 22:41 Active Medications Active Medications: Current Medications Generic Name Dose Route Start Last Admin Trade Name Freq PRN Reason Stop Dose Admin Cholecalciferol 125 mcg 06/05/25 10:00 Cholecalciferol (Vit D3) 125 Mcg Capsule (5,000 Units) PO Sa@1000 ABIGAIL Glucagon 1 mg 05/29/25 17:40 Glucagon 1 Mg/Ml Syringe IM X1 PRN Hypoglycemia Protocol Pantoprazole Sodium 40 mg/ 100 mls @ 330 mls/hr 05/29/25 16:20 05/31/25 10:42 Sodium Chloride IV Infused Q12 ABIGAIL Infusion Dextrose 250 mls @ 0 mls/hr 05/29/25 17:40 Dextrose 10%-Water IV .Q0M PRN HYPOGLYCEMIA Protocol As Directed Ferric Sodium Gluconate 270 mls @ 135 mls/hr 05/31/25 10:30 05/31/25 10:51 Complex 250 mg/ Sodium IV 05/31/25 12:29 135 mls/hr Chloride X1 ONE Administration Sodium Chloride 250 mls @ 15 mls/hr 05/31/25 10:48 IV .[id number] PRN Saline Flush Sodium Chloride 250 mls @ 15 mls/hr 05/31/25 10:48 IV .[id number] PRN Additional IVPB Infusion Lactated Ringer's 1,000 mls @ 15 mls/hr 05/31/25 11:15 IV .Q48H [facility] Insulin Human Lispro 0 unit 05/29/25 22:00 05/31/25 05:51 Insulin Lispro 100 Unit/Ml Insuln.Pen SC Not Given ACHS [facility] Protocol Metoprolol Succinate 12.5 mg 05/30/25 10:00 05/31/25 10:28 Metoprolol(Xl)Succ 25 Mg Tablet PO Not Given DAILY [facility] Protocol Ondansetron HCl 4 mg 05/29/25 17:40 Ondansetron 4 Mg/2 Ml Vial IV Q8H PRN PRN NAUSEA/VOMITING Senna/Docusate Sodium 2 tablet 05/29/25 17:40 Senna/Docusate Sodium 1 Tablet PO BID PRN PRN Constipation Sodium Chloride 10 - 40 ml 05/29/25 17:48 05/30/25 22:14 0.9% Saline Lock 10 Ml Syringe IV 10 ml UD PRN Administration SALINE FLUSH Sodium Chloride 10 - 40 ml 05/31/25 10:48 0.9% Saline Lock 10 Ml Syringe IV UD PRN SALINE FLUSH PFSH Medical History Aortic valve insufficiency Abnormality of gait Osteopenia Elevated LDL cholesterol level Vitamin D deficiency Trochanteric bursitis of right hip SI (sacroiliac) joint inflammation Former smoker Abnormal electro-oculogram GERD (gastroesophageal reflux disease) Type 2 diabetes mellitus Preop cardiovascular exam Multiple sclerosis DJD (degenerative joint disease) of cervical spine Expressive aphasia Home Medications ?Medication ?Instructions ?Recorded ?Last Taken ?Type conjugated estrogens 0.625 mg/gram 0.3125 mg vaginal DAILY Estrogen 01/24/21 Unknown History vaginal cream lactase 9,000 unit tablet (Lactase 9,000 unit PO ONCE PRN lactose 01/24/21 Unknown History Fast Acting) intolerance cyanocobalamin (vitamin B-12) 1,000 mcg IM QMONTH #0 mL 02/15/21 Unknown Rx 1,000 mcg/mL injection solution alendronate 70 mg tablet 70 mg PO QWEEK 08/06/24 Unknown History cholecalciferol (vitamin D3) 125 5,000 unit PO QWEEK Supplement 08/13/24 Unknown History mcg (5,000 unit) capsule meloxicam 15 mg tablet 7.5 mg PO ONCE Arthritis pain 08/13/24 Unknown History Held on 05/29/25. Instructions: MD Ordered metoprolol succinate 25 mg 12.5 mg PO QDAY 08/31/24 Unknown History tablet,extended release 24 hr apixaban 2.5 mg tablet (Eliquis) 2.5 mg PO BID 04/20/25 05/29/25 History metformin 500 mg tablet,extended 500 mg PO DAILY 05/29/25 Unknown History release 24 hr Allergy/AdvReac Type Severity Reaction Status Date / Time Penicillins Allergy Severe Rash Verified 05/29/25 12:47 amoxicillin Allergy Rash Verified 05/29/25 12:47 clindamycin AdvReac Severe Diarrhea Verified 05/29/25 12:47 prochlorperazine (From AdvReac Other Verified 05/29/25 12:47 Compazine) triazolam (From Halcion) AdvReac Other Verified 05/29/25 12:47 Family History Father Colon cancer Mother Thyroid disorder Osteoporosis Surgical History History of right hip replacement History of left hip replacement History of tonsillectomy History of bunionectomy History of left inguinal hernia repair History of tubal ligation Social History household members: spouse Smoking Status: Former smoker quit date: 09/30/92 Electronic Cigarette Use: not used alcohol intake: current details: Glass of wine daily. substance use type: does not use caffeine: Yes Review of Systems (Anesthesia) ROS Narrative System reviewed and no additional complaints, except as documented.
--- NOTE | 2025-05-31 11:55 | PCM.PN.BLA ---
Progress Note Patient will undergo an upper endoscopy. She has been n.p.o. overnight. Physical Exam Const alert, oriented x3, no apparent distress and healthy appearing General Appearance: cooperative GI normal to inspection, nondistended, normoactive bowel sounds, soft to palpation, non-tender and non-distended Percussion: normal to percussion Rectal Exam: deferred Assessment & Plan Assessment/Plan (1) Anemia: (2) GI bleeding: PLAN: Plan Patient was explained alternatives, risk and benefits include not withstanding bleeding, infection, sepsis, perforation, need for surgery . She will have an ASA of 3. Visit Charges Inpatient E&M: 50860 Subs Hosp L3
--- NOTE | 2025-05-31 12:35 | OP.EGD_ITS ---
Patient Name: Tania Romero Procedure Date: 05/31/2025 11:54 AM Date of : 1940 Age: 84 Procedure: Upper GI endoscopy Indications: Active gastrointestinal bleeding Providers: Ulysses Suazo DO Medicines: Monitored Anesthesia Care Patient Profile: This is an 84 year old female. Complications: No immediate complications. Procedure: Pre-Anesthesia Assessment: - Prior to the procedure, a History and Physical was performed, and patient medications and allergies were reviewed. The patient is competent. The risks and benefits of the procedure and the sedation options and risks were discussed with the patient. All questions were answered and informed consent was obtained. Patient identification and proposed procedure were verified by the physician in the pre-procedure area. Mental Status Examination: alert and oriented. Airway Examination: normal oropharyngeal airway and neck mobility. Respiratory Examination: clear to auscultation. CV Examination: normal. Prophylactic Antibiotics: The patient does not require prophylactic antibiotics. Prior Anticoagulants: The patient has taken no anticoagulant or antiplatelet agents. ASA Grade Assessment: II - A patient with mild systemic disease. After reviewing the risks and benefits, the patient was deemed in satisfactory condition to undergo the procedure. The anesthesia plan was to use monitored anesthesia care (MAC). Immediately prior to administration of medications, the patient was re-assessed for adequacy to receive sedatives. The heart rate, respiratory rate, oxygen saturations, blood pressure, adequacy of pulmonary ventilation, and response to care were monitored throughout the procedure. The physical status of the patient was re-assessed after the procedure. After obtaining informed consent, the endoscope was passed under direct vision. Throughout the procedure, the patient's blood pressure, pulse, and oxygen saturations were monitored continuously. The Endoscope was introduced through the mouth, and advanced to the fourth part of the duodenum. Small bowel enteroscopy was deemed necessary. The upper GI endoscopy was accomplished without difficulty. The patient tolerated the procedure well. Scope In: 12:05:54 PM Scope Out: 12:08:58 PM Total Procedure Duration Time 0 hours 3 minutes 4 seconds Findings: The examined esophagus was normal. One oozing cratered gastric ulcer with no stigmata of bleeding was found in the gastric antrum. The lesion was 15 mm in largest dimension. Coagulation for hemostasis using heater probe was successful. Estimated blood loss was minimal. The examined duodenum was normal. Impression: - Normal esophagus. - Oozing gastric ulcer with no stigmata of bleeding. Treated with a heater probe. - Normal examined duodenum. - No specimens collected. Recommendation: - [facility]. - Full liquid diet today. - Continue present medications. Procedure Code(s): --- Professional --- 35708, Small intestinal endoscopy, enteroscopy beyond second portion of duodenum, not including ileum; with control of bleeding (eg, injection, bipolar cautery, unipolar cautery, laser, heater probe, stapler, plasma cutting inspector) CPT copyright 2021 [employer]. All rights reserved. The codes documented in this report are preliminary and upon buffer machine review may be revised to meet current compliance requirements. Ulysses Suazo DO 05/31/2025 12:35:20 PM This report has been signed electronically. Number of Addenda: 0 Note Initiated On: 05/31/2025 11:54 AM
--- NOTE | 2025-05-31 12:36 | OP.PROVAT_ITS ---
05/31/2025 Lacy Hummel [address] [place] [address] Re : Upper GI endoscopy procedure for Tania Romero Dear Dr. Hummel This procedure was performed on Saturday, May 31, 2025. My impressions and recommendations are as follows: Impressions : - Normal esophagus. - Oozing gastric ulcer with no stigmata of bleeding. Treated with a heater probe. - Normal examined duodenum. - No specimens collected. Recommendations : - [facility]. - Full liquid diet today. - Continue present medications. My findings are described in the full procedure note, which is enclosed. If I can be of further assistance, please feel free to contact me at . Sincerely, Ulysses Friend, 05/31/2025 12:35:20 PM This report has been signed electronically.
--- NOTE | 2025-05-31 13:34 | DCINST_ITS ---
Discharge Instructions DC O2, CPAP, BIPAP needs Home O2 Discharge instructions: No Dressing / Incision Discharge Activity: Return to Normal Activity Dressing / Incision Call your doctor if you observe: Fever of 101 or Higher, Shortness of breath, Dizziness, Fainting spells, Swelling in the ankles, Chest pain and Increased palpitations (irregular heartbeat) Follow Up Care Test Results: Test results from this visit will be discussed in further detail at your follow- up appointment, if applicable. Discharge Plan Admission Admit Date/Time: 05/29/25 16:18 Attending Provider: Sincere Diaz Primary Care Provider: Lacy Hummel Consulting Providers: Pranay Lopez; Ulysses Suazo; Aliza Whitehead; Marge Moreno; Alize Ahn Instructions Additional Instructions / Restrictions: Up with your primary care doctor in 3 to 5 days to monitor your hemoglobin and check you for anemia. I also recommend outpatient follow-up in a few weeks to recheck your iron levels. Discharge Orders/Prescriptions Prescriptions: New sucralfate 1 gram Tablet 1 g PO TID@0700,1100,1600 30 Days Qty: 90 0RF pantoprazole [Protonix] 40 mg tablet,delayed release (DR/EC) 40 mg PO BID 30 Days Qty: 60 0RF ferrous gluconate 324 mg (37.5 mg iron) tablet 324 mg PO DAILY Qty: 30 0RF Continued Lactase Fast Acting 9,000 unit tablet 9,000 unit PO ONCE PRN (Reason: lactose intolerance) Rx Instructions: administer with meals and/or snacks conjugated estrogens 0.625 mg/gram cream 0.3125 mg vaginal DAILY Rx Instructions: off 5 days; repeat cycle alendronate 70 mg tablet 70 mg PO QWEEK cholecalciferol (vitamin D3) 125 mcg (5,000 unit) capsule 5,000 unit PO QWEEK Patient Comments: SUPPLEMENT cyanocobalamin (vitamin B-12) 1,000 mcg/mL Solution 1,000 mcg IM QMONTH Qty: 0 0RF metformin 500 mg tablet extended release 24 hr 500 mg PO DAILY metoprolol succinate 25 mg tablet extended release 24 hr 12.5 mg PO QDAY Held Eliquis 2.5 mg tablet 2.5 mg PO BID Hold Instructions: Resume on 06/03/25. Discontinued meloxicam 15 mg tablet 7.5 mg PO ONCE Patient Comments: WITH MEALS. PAIN INFLAMMATION Referrals / Follow Up: Lacy Hummel MD [Primary Care Provider] - Within 1 Week FriendUlysses DO [Med Staff - Active Staff] - Within 1 Month Disposition Disposition (needs filled in before D/C Order can be placed): Home, Self Care
--- NOTE | 2025-05-31 13:39 | PN.HOSP_ITS ---
Reason for Visit Chief Complaint: Lower GI bleed Objective Data Objective Data Vital Signs: Vital Signs Temp Pulse Resp BP Pulse Ox O2 Del Method 98.2 F 62 17 141/55 H 94 Room Air 05/31/25 13:10 05/31/25 13:10 05/31/25 13:10 05/31/25 13:10 05/31/25 13:10 05/31/25 13:10 Oxygen Delivery Method Room Air Weight: 110 lb 14.28 oz Body Mass Index (BMI) 22.4 Intake & Output: Intake and Output for Last 24 Hours 05/30/25 05/31/25 06/01/25 03:59 03:59 03:59 Intake Total 1080 / 1080 2360 / 2360 187.75 / 187.75 Balance 1080 / 1080 2360 / 2360 187.75 / 187.75 Lab / Micro Data 05/31/25 04:50 05/31/25 04:50 Labs: Laboratory Results - last 24 hr 05/30/25 11:09: POC Glucose 111 H 05/30/25 14:01: Hgb 9.4 L, Hct 28.7 L 05/30/25 16:24: POC Glucose 107 H 05/30/25 22:12: POC Glucose 110 H 05/31/25 04:50: WBC 6.5, RBC 2.97 L, Hgb 8.7 L, Hct 25.9 L, MCV 87.2, MCH 29.3, MCHC 33.6, RDW Std Deviation 44.1 H, RDW Coeff of Danny 14.2, Plt Count 280, MPV 8.9, Immature Gran % (Auto) 0.500, Neut % (Auto) 57.0, Lymph % (Auto) 27.4, [place] % (Auto) 10.9 H, Eos % (Auto) 3.7, Baso % (Auto) 0.5, Absolute Neuts (auto) 3.7, Absolute Lymphs (auto) 1.77, Nucleated RBC % 0, PT 13.4, INR 1.0, Sodium 141, Potassium 3.7, Chloride 106, Carbon Dioxide 25.9, Anion Gap 10, BUN 13, Creatinine 0.88, Estim Creat Clear Calc 34.79 L, Est GFR (MDRD) Non-Af 65, BUN/Creatinine Ratio 15.1, Glucose 92, Calcium 8.7, Iron 25 L, TIBC 270, Iron Saturation 9.0 L, Unsaturated IBC 245, Ferritin 37 05/31/25 06:33: POC Glucose 112 H Micro: Microbiology 05/29/25 14:59 Stool Stool Occult Blood (PRESTON) - Final Occult Blood Positive Radiography Diagnostic Testing: Radiology Impression Abdomen/Pelvis CTA 05/30/25 15:27 IMPRESSION: No acute aortic abnormality. No bowel obstruction or site of bleeding seen at this time. Reading Location: [id number]
--- NOTE | 2025-05-31 13:40 | PN.HOSP_ITS ---
Subjective Subjective Doing well, no issues overnight. Hemoglobin is stabilized Objective Data Objective Data Vital Signs: Vital Signs Temp Pulse Resp BP Pulse Ox O2 Del Method 98.2 F 62 17 141/55 H 94 Room Air 05/31/25 13:10 05/31/25 13:10 05/31/25 13:10 05/31/25 13:10 05/31/25 13:10 05/31/25 13:10 Oxygen Delivery Method Room Air Weight: 110 lb 14.28 oz Body Mass Index (BMI) 22.4 Intake & Output: Intake and Output for Last 24 Hours 05/30/25 05/31/25 06/01/25 03:59 03:59 03:59 Intake Total 1080 / 1080 2360 / 2360 187.75 / 187.75 Balance 1080 / 1080 2360 / 2360 187.75 / 187.75 Lab / Micro Data 05/31/25 04:50 05/31/25 04:50 Labs: Laboratory Results - last 24 hr 05/30/25 11:09: POC Glucose 111 H 05/30/25 14:01: Hgb 9.4 L, Hct 28.7 L 05/30/25 16:24: POC Glucose 107 H 05/30/25 22:12: POC Glucose 110 H 05/31/25 04:50: WBC 6.5, RBC 2.97 L, Hgb 8.7 L, Hct 25.9 L, MCV 87.2, MCH 29.3, MCHC 33.6, RDW Std Deviation 44.1 H, RDW Coeff of Danny 14.2, Plt Count 280, MPV 8.9, Immature Gran % (Auto) 0.500, Neut % (Auto) 57.0, Lymph % (Auto) 27.4, [facility] % (Auto) 10.9 H, Eos % (Auto) 3.7, Baso % (Auto) 0.5, Absolute Neuts (auto) 3.7, Absolute Lymphs (auto) 1.77, Nucleated RBC % 0, PT 13.4, INR 1.0, Sodium 141, Potassium 3.7, Chloride 106, Carbon Dioxide 25.9, Anion Gap 10, BUN 13, Creatinine 0.88, Estim Creat Clear Calc 34.79 L, Est GFR (MDRD) Non-Af 65, BUN/Creatinine Ratio 15.1, Glucose 92, Calcium 8.7, Iron 25 L, TIBC 270, Iron Saturation 9.0 L, Unsaturated IBC 245, Ferritin 37 05/31/25 06:33: POC Glucose 112 H Micro: Microbiology 05/29/25 14:59 Stool Stool Occult Blood (PRESTON) - Final Occult Blood Positive Radiography Diagnostic Testing: Radiology Impression Abdomen/Pelvis CTA 05/30/25 15:27 IMPRESSION: No acute aortic abnormality. No bowel obstruction or site of bleeding seen at this time. Reading Location: [facility] Physical Exam Narrative General: Alert, Oriented x3, Cooperative, No apparent distress HEENT: Atraumatic, PERRLA, EOMI, Normocephalic Oral: Moist Mucosa Neck: Supple, No JVD Lungs: Diminished, Normal air movement, No rhonchi, No wheeze, No rales Cardiovascular: Regular rate, Regular Rhythm, Normal S1, Normal S2, No murmurs Abdomen: Soft, Non Tender, Non-Distended, No Hepato-splenomegaly Extremities: No edema, Capillary Refill Less than 3 Seconds Skin: No rashes, No breakdown Musculoskeletal: No Tenderness to Palpation of Joints or Extremities Neurological: No focal neurological deficits, Motor Exam 5/5 strength throughout, Sensory exam intact to light touch and pain Psych/Mental Status: Normal Affect, Appropriate Assessment & Plan Assessment/Plan (1) GI bleeding: (2) Anemia: PLAN: Plan 1. Suspected GI bleed with acute blood loss anemia ? She was transfused 1 unit, hemoglobin is 8.7 this morning yesterday was 8.4. The 9.4 she had in the afternoon was an anomaly ? EGD obtained today demonstrated a oozing gastric ulcer which was treated ? Continue with PPI but will also add Carafate ? Continue to hold Eliquis 2. 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 Continue with Toprol ? Will hold Eliquis ? Will monitor make adjustments to her blood pressure medications ? Blood pressure is stable ? Last echo was in August 2020 with an EF of 65%, no need to repeat 3. DM2 ? Stable, will hold metformin ? Accu-Cheks ? Sliding scale insulin ? Monitor and make adjustments as necessary DVT: SCDs Charges/Coding Visit Charges Inpatient E&M: 46585 Subs Hosp L2
--- NOTE | 2025-05-31 13:46 | PCM.POST.ANE ---
Anesthesia: Postop Eval I Current Vital Signs Temperature: 97 F Pulse Rate: 85 Blood Pressure: 138/78 Respiratory Rate: 15 Pulse Ox: 97 Oxygen Delivery Method: Room Air Assessment Airway patent: Yes Spontaneous unlabored respirations: Yes Mental status: Awake and Calm nausea: No Vomiting: No Anesthesia Complication: No Fluid Hydration Crystalloid volume administer (ml): 300 Total IV fluid infused: 300 Progress Note Post-operative progress note: awake and stable to PACU Anesthesia document: Postop Eval 1 completed: Yes
--- NOTE | 2025-05-31 13:47 | PCM.POSTANE2 ---
Anesthesia Postop Eval I Sum Postop Eval Completion status Anesthesia document: Postop Eval 1 completed: Yes Anesthesia Postop Eval I Summary Anesthesia Postop Eval I Summary: Anesthesia Postop Eval I: Assessment Summary Airway patent Yes 05/31/25 13:47 Spontaneous unlabored Yes 05/31/25 13:47 respirations Mental status Awake,Calm 05/31/25 13:47 nausea No 05/31/25 13:47 Vomiting No 05/31/25 13:47 Anesthesia Postop Eval I: Fluid Summary Crystalloid volume administer 300 05/31/25 13:47 (ml) Colloids volume administered ( ml) Blood Product volume administered (ml) Total IV fluid infused 300 05/31/25 13:47 Anesthesia Postop Eval I: Summary Notes Anesthesia Complication No 05/31/25 13:47 Anesthesia Complication Comment: Post-operative progress note awake and stable 05/31/25 13:47 to PACU Anesthesia: Postop Eval II Evaluation Mental status: Awake and Calm Pain Level: 0 nausea: No Vomiting: No Progress Note Post-operative progress note: meets discharge criteria Complications Anesthesia Complication: No
[2025-06-01 03:36] VITALS: BP 119/53; PULSE 63; RESP 18; TEMP 36.6; O2SAT 94
[2025-06-01 05:20] VITALS: BMI 21.7
[2025-06-01 05:45] LABS: Hematocrit 28.1 % (37-47); Hemoglobin 9.4 g/dL (12.0-15.0); Immature Granulocytes Count 0.030 X10^3/uL (0.0-0.0); Mean Corp Hgb Conc 33.5 g/dL (32-36); Mean Corpuscular Volume 87.3 fL (81-99); Mean Platelet Vol. 9.0 fl (6.2-12.0); NRBC Flagged by Analyzer 0 % (0-5); Platelet Count 316 K/mm3 (150-450); RBC Distribution Width CV 14.0 % (11.6-14.6); RBC Distribution Width SD 43.9 fl (35.1-43.9); Red Blood Count 3.22 M/mm3 (4.2-5.4); White Blood Count 8.2 K/mm3 (4.4-11.0)
[2025-06-01 08:07] VITALS: BP 116/66; PULSE 64; RESP 18; TEMP 36.7; O2SAT 96
[2025-06-01 08:08] VITALS: PULSE 64
[2025-06-01] MEDS: Metoprolol(XL)Succ 25 MG Tablet 12.5 MG PO (08:08)
--- NOTE | 2025-06-01 09:02 | CASEMGMT ---
Dx: GI Bleed LACE: 2 6-Clicks: 20 Medical record reviewed and patient evaluated for identification of discharge planning needs. Based on this review, at this time criteria are not present to indicate a need for discharge planning. Will remain available to assist with discharge planning needs as identified or requested.
--- NOTE | 2025-06-01 09:45 | PCM.DC.SUM ---
Providers Date of Admission: 05/29/25 Primary Care Physician: Dr. Lacy Hummel MD Consultations 05/29/25 17:40 Consult: Gastroenterology Routine Consulting Provider: [facility] Reason for Consult: GI bleed EMERGENT Consult: No MD Notified: Yes Date Notified: 05/29/25 Time Notified: 16:49 Method of Notification: ED Physician Initiated Reason For Visit: GI BLEED Diagnosis Discharge Diagnosis (1) GI bleeding: Status: Acute Code(s): K92.2 - Gastrointestinal hemorrhage, unspecified (2) Anemia: Status: Acute Code(s): D64.9 - Anemia, unspecified Medications at Discharge Home Medications conjugated estrogens 0.625 mg/gram vaginal cream 0.3125 mg vaginal DAILY Estrogen 01/24/21 lactase 9,000 unit tablet (Lactase Fast Acting) 9,000 unit PO ONCE PRN lactose intolerance 01/24/21 cyanocobalamin (vitamin B-12) 1,000 mcg/mL injection solution 1,000 mcg IM QMONTH vitamin #0 mL 02/15/21 alendronate 70 mg tablet 70 mg PO QWEEK bone health 08/06/24 cholecalciferol (vitamin D3) 125 mcg (5,000 unit) capsule 5,000 unit PO QWEEK Supplement 08/13/24 metoprolol succinate 25 mg tablet,extended release 24 hr 12.5 mg PO QDAY blood pressure 08/31/24 apixaban 2.5 mg tablet (Eliquis) 2.5 mg PO BID blood thinner 04/20/25 Held on 05/31/25. Instructions: Resume on 06/03/25. metformin 500 mg tablet,extended release 24 hr 500 mg PO DAILY diabetes 05/29/25 ferrous gluconate 324 mg (37.5 mg iron) tablet 324 mg PO DAILY #30 tabs 05/31/25 pantoprazole 40 mg tablet,delayed release (Protonix) 40 mg PO BID 30 days #60 tabs 05/31/25 sucralfate 1 gram tablet 1 g PO TID@0700,1100,1600 30 days #90 tabs 05/31/25 Hospital Course Operations None Procedures EGD Summary of Care Provided Minutes Spent on Discharge: 35 Hospital Course: Per HPI: JOE CEE, is a 84 F came to ED for dark brownish stool in the first 2 days of the this week Saturday and Saturday and was found low hemoglobin Saturday saw her PCP at [facility] and lab was drawn yesterday and was found hemoglobin dropped to 7.3 which was significant and then last labs on past Saturday night when it was 8.3 g% and was told to go to ED for suspected GI bleed. She was seen in ED past Saturday for generalized weakness and fatigue and difficulty in a ADL and loose BM but was sent home after she felt better. After last ED visit, she had first 2 days of dark stool and then she did not had BM for last 2 days. She is passing flatus. She feels mild belching otherwise no vomiting or hematemesis. She denies abdominal pain. Last EKG on 05/22/2025 shows NSR with sinus arrhythmia, LAD at 83 bpm. Patient has significant history of paroxysmal SVT and is on Eliquis 2.5 mg twice daily. She had ablation for SVT earlier this year. Patient was also taking meloxicam 7.5 mg daily which she has stopped. She has chronic back pain, osteoporosis and kyphoscoliosis, uses cane for ambulation. Hospital course: 1. Acute blood loss anemia secondary to a GI bleed from a gastric ulcer complicated by use of anticoagulation?84-year-old female with a history of SVT and on Eliquis presented to the hospital with anemia. She did receive a dose of IV iron as well as 1 unit of PRBCs. She had an EGD that demonstrated an oozing gastric ulcer that was treated. Her hemoglobin corrected to 9.4 on the day of discharge and I discussed with her the possibility for discharge today she expressed understanding of the risks and benefits of going home and would like to go home today. Will place her on iron supplementation and hold her Eliquis for a few days on discharge. I do recommend that she follow-up with her PCP in 3 to 5 days to monitor her hemoglobin. I also recommended she follow-up with gastroenterology. We discussed the need to discontinue meloxicam and if she continues to have significant back pain then Celebrex may be a reasonable compromise. 2. Essential hypertension, paroxysmal SVT status post ablation September 2024, type 2 diabetes, osteoporosis are all chronic medical conditions which complicate her care. Her home medications were continued or appropriate. Physical Exam Narrative General: Alert, Oriented x3, Cooperative, No apparent distress HEENT: Atraumatic, PERRLA, EOMI, Normocephalic Oral: Moist Mucosa Neck: Supple, No JVD Lungs: Diminished, Normal air movement, No rhonchi, No wheeze, No rales Cardiovascular: Regular rate, Regular Rhythm, Normal S1, Normal S2, No murmurs Abdomen: Soft, Non Tender, Non-Distended, No Hepato-splenomegaly Extremities: No edema, Capillary Refill Less than 3 Seconds Skin: No rashes, No breakdown Musculoskeletal: No Tenderness to Palpation of Joints or Extremities Neurological: No focal neurological deficits, Motor Exam 5/5 strength throughout, Sensory exam intact to light touch and pain Psych/Mental Status: Normal Affect, Appropriate Weight / BMI Weight Weight: 107 lb 9.369 oz Body Mass Index (BMI) 21.7 ABG / Lab / Microbiology Data 06/01/25 05:11 05/31/25 04:50 Laboratory: Laboratory Results - last 24 hr 05/31/25 13:20: POC Glucose 97 05/31/25 17:02: POC Glucose 122 H 05/31/25 21:41: POC Glucose 125 H 06/01/25 05:11: WBC 8.2, RBC 3.22 L, Hgb 9.4 L, Hct 28.1 L, MCV 87.3, MCH 29.2, MCHC 33.5, RDW Std Deviation 43.9, RDW Coeff of Danny 14.0, Plt Count 316, MPV 9.0, Immature Gran % (Auto) 0.400, Neut % (Auto) 63.9, Lymph % (Auto) 22.4, [place] % (Auto) 10.1 H, Eos % (Auto) 2.8, Baso % (Auto) 0.4, Absolute Neuts (auto) 5.3, Absolute Lymphs (auto) 1.84, Nucleated RBC % 0 06/01/25 05:25: POC Glucose 101 Microbiology: Microbiology 05/29/25 14:59 Stool Stool Occult Blood (PRESTON) - Final Occult Blood Positive D/C Instructions Call your doctor if you observe: Fever of 101 or Higher, Shortness of breath, Dizziness, Fainting spells, Swelling in the ankles, Chest pain and Increased palpitations (irregular heartbeat) DC O2, CPAP, BIPAP Needs Home O2 Discharge instructions: No Meaningful Use Info Meaningful Use Meaningful Use Diagnoses (Choose all that apply): None applicable Discharge Plan Admission Admit Date/Time: 05/29/25 16:18 Attending Provider: Sincere Diaz Primary Care Provider: Lacy Hummel Consulting Providers: Pranay Lopez; Ulysses Suazo; Aliza Whitehead; Marge Moreno; Alize Ahn Instructions Additional Instructions / Restrictions: Up with your primary care doctor in 3 to 5 days to monitor your hemoglobin and check you for anemia. I also recommend outpatient follow-up in a few weeks to recheck your iron levels. Discharge Orders/Prescriptions Prescriptions: New sucralfate 1 gram Tablet 1 g PO TID@0700,1100,1600 30 Days Qty: 90 0RF pantoprazole [Protonix] 40 mg tablet,delayed release (DR/EC) 40 mg PO BID 30 Days Qty: 60 0RF ferrous gluconate 324 mg (37.5 mg iron) tablet 324 mg PO DAILY Qty: 30 0RF Continued Lactase Fast Acting 9,000 unit tablet 9,000 unit PO ONCE PRN (Reason: lactose intolerance) Rx Instructions: administer with meals and/or snacks conjugated estrogens 0.625 mg/gram cream 0.3125 mg vaginal DAILY Rx Instructions: off 5 days; repeat cycle alendronate 70 mg tablet 70 mg PO QWEEK cholecalciferol (vitamin D3) 125 mcg (5,000 unit) capsule 5,000 unit PO QWEEK Patient Comments: SUPPLEMENT cyanocobalamin (vitamin B-12) 1,000 mcg/mL Solution 1,000 mcg IM QMONTH Qty: 0 0RF metformin 500 mg tablet extended release 24 hr 500 mg PO DAILY metoprolol succinate 25 mg tablet extended release 24 hr 12.5 mg PO QDAY Held Eliquis 2.5 mg tablet 2.5 mg PO BID Hold Instructions: Resume on 06/03/25. Discontinued meloxicam 15 mg tablet 7.5 mg PO ONCE Patient Comments: WITH MEALS. PAIN INFLAMMATION Referrals / Follow Up: Lacy Hummel MD [Primary Care Provider] - Within 1 Week Ulysses Suazo DO [Med Staff - Active Staff] - Within 1 Month Disposition Disposition (needs filled in before D/C Order can be placed): Home, Self Care Charges/Coding Visit Charges Inpatient E&M: 48564 Disch Hosp >30min
== END 2025-06-01 11:01 | disposition home or self-care (01) | DRG 378 ==
LOC: ED 16:24 → PCU 16:45
PROVIDERS: Anesthesiology; Internal Medicine Gastroenterology; Admitting Provider Internal Medicine; Emergency Provider Emergency Medicine; PCP Internal Medicine; Visit Provider Family Medicine
PROC: 0DJ08ZZ Inspection of Upper Intestinal Tract, Via Natural or Artificial Opening Endoscopic (ICD-10-PCS; CPT 43235; principal; 2025-05-31 11:30)
DX: K25.4 Chronic or unspecified gastric ulcer with hemorrhage (principal); D62 Acute posthemorrhagic anemia; D68.32 Hemorrhagic disorder due to extrinsic circulating anticoagulants; I47.10 Supraventricular tachycardia, unspecified; Z66 Do not resuscitate; G35 Multiple sclerosis; I48.91 Unspecified atrial fibrillation; E11.9 Type 2 diabetes mellitus without complications; I10 Essential (primary) hypertension; M41.9 Scoliosis, unspecified; E78.00 Pure hypercholesterolemia, unspecified; M17.0 Bilateral primary osteoarthritis of knee; M47.814 Spondylosis without myelopathy or radiculopathy, thoracic region; G89.29 Other chronic pain; M81.0 Age-related osteoporosis without current pathological fracture; R53.81 Other malaise; Z79.01 Long term (current) use of anticoagulants; Z79.1 Long term (current) use of non-steroidal anti-inflammatories (NSAID); Z79.83 Long term (current) use of bisphosphonates; Z79.84 Long term (current) use of oral hypoglycemic drugs; Z87.891 Personal history of nicotine dependence; Z86.73 Personal history of transient ischemic attack (TIA), and cerebral infarction without residual deficits
CPT/HCPCS: 36415; 74174; 80048; 80076; 82274; 82728; 82962; 83036; 83540; 83550; 83735; 85014; 85018; 85025; 85610; 86850; 86900; 86901; 93005; 94668; 97162; 97165; 99285; C1889; P9016; Q9967; A4216; J2916